=== PATIENT | female | born 1990 | race Hispanic/Latino ===

== ENCOUNTER 2018-03-15 19:16 | Emergency (ER) | payer MEDICAID ==
[2018-03-15 19:59] LABS: Absolute Lymphocytes (CBC) 1.9 K/uL (0.7-4.9); Absolute Monocytes 0.7 K/uL (0.1-1.3); Absolute Neutrophil 4.8 K/uL (1.8-8.0); Basophils % 0.5 % (0-1.3); Eosinophils % 0.3 % (0-4.4); Hematocrit 37.8 % (36.0-45.0); Lymphocytes % 25.9 % (15.3-44.8); MCH 30.7 pg (27.0-35.0); MCV 92.1 fL (80-100); MPV 7.6 fL (7.6-11.3); Monocytes % 9.3 % (3.3-12.3); RBC Red Blood Cell Count 4.11 M/uL (3.86-4.86)
[2018-03-15 20:01] LABS: Protime INR 0.99
[2018-03-15 20:06] LABS: Bicarbonate 30 mEq/L (21-31); Glucose Level 101 mg/dL (65-120); Potassium 4.1 mEq/L (3.6-5.0); Sodium Level 140 mEq/L (135-145)
[2018-03-15 20:12] LABS: ALT/SGPT 21 IU/L (10-60); AST/SGOT 32 IU/L (10-42); Albumin 4.3 g/dL (3.2-5.5); Alkaline Phosphatase 94 IU/L (42-121); BUN Blood Urea Nitrogen 14 mg/dL (6-20); Bilirubin Direct < 0.1 mg/dL (0-0.2); Bilirubin Total 0.3 mg/dL (0.3-1.2); Protein, Total 8.5 g/dL (6.0-8.3)
[2018-03-15 20:16] LABS: Alcohol Serum/Plasma < 10 mg/dl; Salicylates Level < 4.0 mg/dl (<30)
[2018-03-15 22:46] LABS: Barbiturates NEGATIVE; Benzodiazepines NEGATIVE; Cocaine NEGATIVE; Opiates POSITIVE; Phencyclidine NEGATIVE; THC Cannibis NEGATIVE
[2018-03-15 22:50] LABS: Urine Blood NEGATIVE (NEG); Urine Glucose NEGATIVE (NEG); Urine Protein 3+ (NEG); Urine Specific Gravity >1.030 (1.005-1.030)
[2018-03-15 22:52] LABS: METHAMPHETAM POSITIVE
--- NOTE | 2018-03-16 06:43 | EKG ---
Test Date: 2018-03-15 Test Time: 20:13:31 Cash Analyst: ABDIAS MEASUREMENT RESULTS: Intervals: Rate: 69 OK: 152 QRSD: 80 QT: 380 QTc: 407 [place]: P: 18 OK: 152 QRS: 38 T: 41 INTERPRETIVE STATEMENTS: Normal sinus rhythm with sinus arrhythmia Normal ECG Compared to ECG 12/25/2017 21:30:16 No significant changes Electronically Signed On 03-16-18 06:43:00 CDT by Vince Santana
--- NOTE | 2018-03-16 09:53 | EDPHYS ---
Physician Documentation [facility] Name: Kitty Wall Age: 27 yrs Sex: Female : 1990 Arrival Date: 03/15/2018 Time: 19:16 Bed 15 Private MD: ED Physician Brad Castillo HPI: 03/15 19:20 This 27 yrs old Female presents to ER via EMS with complaints of Suicidal cp Ideation. Historical: - Allergies: 19:26 No Known Allergies; tl2 - Home Meds: 19:26 Lamictal 100 mg Oral tab 1 tab 2 times per day [Active]; trazodone 50 mg Oral tab 1 tab tl2 nightly [Active]; fenator 5 mg daily [Active]; - PMHx: 19:26 Anxiety; Bipolar disorder; Depression; Schizophrenia; Seizures; Kidney tumor; tl2 - Immunization history:: Adult Immunizations up to date. - Social history:: Smoking status: Patient/guardian denies using tobacco. ROS: 19:25 Constitutional: Negative for body aches, chills, fever, poor PO intake. cp 19:25 Eyes: Negative for injury, pain, redness, and discharge. cp Exam: 19:33 Constitutional: The patient appears in no acute distress, alert, awake, non-toxic, well cp developed, well nourished. 19:33 Head/Face: Normocephalic, atraumatic. cp 19:33 Eyes: Periorbital structures: appear normal, Pupils: equal, round, and reactive to light and accomodation, Extraocular movements: intact throughout, Conjunctiva: normal, no exudate, no injection, Sclera: no appreciated abnormality, Lids and lashes: appear normal, bilaterally. 19:33 ENT: External ear(s): are unremarkable, Nose: is normal, Mouth: Lips: moist, Oral mucosa: pink and intact, moist, Posterior pharynx: is normal, airway is patent, no erythema, no exudate. 19:33 Neck: ROM/movement: is normal, is supple, without pain, no range of motions limitations, no nuchal rigidity. 19:33 Chest/axilla: Inspection: normal, Palpation: is normal, no crepitus, no tenderness. 19:33 Cardiovascular: Rate: normal, Rhythm: regular. 19:33 Respiratory: the patient does not display signs of respiratory distress, Respirations: normal, no use of accessory muscles, no retractions, no splinting, no tachypnea, labored breathing, is not present, Breath sounds: are clear throughout, no decreased breath sounds, no stridor, no wheezing. 19:33 Abdomen/GI: Inspection: abdomen appears normal, Palpation: abdomen is soft and non-tender, in all quadrants. 19:33 Back: pain, is absent, ROM is normal. 19:33 Skin: cellulitis, is not appreciated, no rash present. 19:33 Neuro: Orientation: to person, place \T\ time. Mentation: is normal, Motor: moves all fours, strength is normal, Sensation: is normal. 19:33 Psych: Behavior/mood is suicidal, Affect is calm, Patient having thoughts of suicide. Plan for suicide is cut wrists Delusions/hallucinations are not present. 20:20 ECG was reviewed by the Attending Physician. Vital Signs: 19:26 BP 126 / 79; Pulse 91; Resp 18; Temp 98.4(O); Pulse Ox 97% on R/A; Weight 63.5 kg; tl2 Height 5 ft. 1 in. (154.94 cm); Pain 0/10; 22:30 BP 120 / 75; Pulse 79; Resp 18; Pulse Ox 100% on R/A; Pain 1/10; oe 03/16 07:00 BP 124 / 91; Pulse 81; Resp 18; Pulse Ox 100% on R/A; oe 03/15 19:26 Body Mass Index 26.45 (63.50 kg, 154.94 cm) tl2 MDM: 03/15 19:19 Patient medically screened. cp 20:00 Differential diagnosis: drug withdrawal. acute psychotic break, depression, psychosis cp secondary to non-compliance. 22:30 Transition of care: After a detail discussion of the patient's case, care is cp transferred to [facility]. 03/16 00:46 Data reviewed: vital signs, nurses notes. Data interpreted: Pulse oximetry: on room air snw is 100 %. Counseling: I had a detailed discussion with the patient and/or guardian regarding: the historical points, exam findings, and any diagnostic results supporting the discharge/admit diagnosis, lab results. Other consultation: [facility]. 01:00 Other consultation: [facility] recommends inpatient treatment. States pt is having delusions, snw possible IDD. 01:00 Physician consultation: Dr Sheldon was called at 02:00, was contacted at 02:25, snw regarding regarding transfer, to [facility]. Dr. Sheldon declines pt 2nd to Medical needs. Pt with hx of Angiomyolipoma of bilateral kidneys. Takes Afinitor. 02:43 Transition of care: After a detail discussion of the patient's case, care is snw transferred to Glenn Gary MD. 09:49 Special discussion: 0950Hrs: Accepted by Dr. Medley at [facility]. wa 03/15 19:18 Order name: Acetaminophen; Complete Time: 21:49 cp 03/15 21:50 Interpretation: ACETA < 10.0; Reviewed. cp 03/15 19:18 Order name: Basic Metabolic Panel; Complete Time: 21:49 cp 03/15 21:50 Interpretation: Normal except: CL 100; GFR 80. cp 03/15 19:18 Order name: CBC with Diff; Complete Time: 21:49 cp 03/15 21:50 Interpretation: Normal except: MCV 92.1; PLT 416. cp 03/15 19:18 Order name: ETOH Level; Complete Time: 21:49 cp 03/15 19:18 Order name: Hepatic Function; Complete Time: 21:49 cp 03/15 21:50 Interpretation: Normal except: TP 8.5; GLOB 4.2; A/G 1.0. cp 03/15 19:18 Order name: PT-INR; Complete Time: 21:49 cp 03/15 19:18 Order name: Urine Test (obtain specimen); Complete Time: 22:20 cp 03/15 19:18 Order name: Ptt, Activated; Complete Time: 21:49 cp 03/15 19:18 Order name: Salicylate; Complete Time: 21:49 cp 03/15 19:18 Order name: Urine Drug Screen; Complete Time: 22:56 cp 03/15 19:18 Order name: EKG; Complete Time: 19:18 cp 03/15 22:31 Order name: Urine Dipstick--Ancillary (enter results); Complete Time: 22:56 rg2 03/15 22:31 Order name: Urine --Ancillary (enter results); Complete Time: 22:56 rg2 03/16 07:14 Order name: Diet Regular; Complete Time: 07:15 tl2 03/15 19:18 Order name: EKG - Nurse/Tech; Complete Time: 20:09 cp 03/15 19:18 Order name: IV Saline Lock; Complete Time: 19:41 cp 03/15 19:18 Order name: Labs collected and sent; Complete Time: 19:40 cp 03/15 19:18 Order name: Urine Dipstick-Ancillary (obtain specimen); Complete Time: 22:20 cp EC/03 20:20 Rate is 69 beats/min. MN interval is normal. QRS interval is normal. QT interval is cp normal. No ST changes noted. Interpreted by me. Reviewed by me. Administered Medications: No medications were administered Disposition: 03/16 09:53 Co-signature as Attending Physician, Brad Castillo MD I agree with the assessment and wa plan of care. Disposition: 03/16/18 09:52 Transfer ordered to Psych Facility. Diagnosis is Acute depression with suicidal ideation. - Reason for transfer: Higher level of care. - Accepting physician is Dr. Galindo Jarrett. - Condition is Stable. - Problem is new. - Symptoms have improved. Signatures: Dispatcher [employer] EDMS Isabel Lopez, GRIPS-C GRIPS-Csnw Samia Rubio RN RN ph Imtiaz Gongora PA PA cp Knox, Taylor, RN RN 2 Brad Castillo MD MD mt Corrections: (The following items were deleted from the chart) 10:42 09:52 03/16/2018 09:52 Transfer ordered to Psych Facility. Diagnosis is Acute ph depression with suicidal ideation. Reason for transfer: Higher level of care. Accepting physician is Dr. Galindo Jarrett. Condition is Stable. Problem is new. Symptoms have improved. wa
--- NOTE | 2018-03-16 09:53 | ER ---
Nurse's Notes [facility] Name: Kitty Wall Age: 27 yrs Sex: Female : 1990 Arrival Date: 03/15/2018 Time: 19:16 Bed 15 Private MD: Diagnosis: Acute depression with suicidal ideation Presentation: 03/15 19:21 Presenting complaint: Patient states: "I've been feeling really depressed since my mom tl2 and I've been having suicidal thoughts. Pt denies any attempt but states she is having suicidal feelings.". Transition of care: patient was not received from another setting of care. Onset of symptoms. Onset of symptoms was March 15, 2018. Initial Sepsis Screen: Does the patient meet any 2 criteria? No. Patient's initial sepsis screen is negative. Does the patient have a suspected source of infection? No. Patient's initial sepsis screen is negative. Care prior to arrival: None. 19:21 Method Of Arrival: EMS: [facility] tl2 19:21 Acuity: GULSHAN 2 tl2 Triage Assessment: 19:26 General: Appears in no apparent distress. comfortable, Behavior is calm, cooperative, tl2 appropriate for age. Pain: Denies pain. Neuro: Level of Consciousness is awake, alert, obeys commands, Oriented to person, place, time, situation. Cardiovascular: Denies chest pain. Respiratory: Airway is patent Respiratory effort is even, unlabored, Respiratory pattern is regular, symmetrical. GI: No signs and/or symptoms were reported involving the gastrointestinal system. : No signs and/or symptoms were reported regarding the genitourinary system. Derm: Skin is pink, warm \\T\\ dry. Historical: - Allergies: 19:26 No Known Allergies; tl2 - Home Meds: 19:26 Lamictal 100 mg Oral tab 1 tab 2 times per day [Active]; trazodone 50 mg Oral tab 1 tab tl2 nightly [Active]; fenator 5 mg daily [Active]; - PMHx: 19:26 Anxiety; Bipolar disorder; Depression; Schizophrenia; Seizures; Kidney tumor; tl2 - Immunization history:: Adult Immunizations up to date. - Social history:: Smoking status: Patient/guardian denies using tobacco. Screenin:28 Abuse screen: Denies threats or abuse. Nutritional screening: No deficits noted. tl2 Tuberculosis screening: No symptoms or risk factors identified. Fall Risk None identified. Assessment: 20:30 General: see triage assessment. tl2 03/16 00:00 Reassessment: Patient appears in no apparent distress at this time. Patient and/or tl2 family updated on plan of care and expected duration. Pain level reassessed. Pt sleeping, no questions or concerns at this time. 00:33 Reassessment: Mental Health Rep at bedside for evaluation. tl2 02:30 Reassessment: Pt continues to sleep, RR even and unlabored. tl2 07:00 Reassessment: Patient appears in no apparent distress at this time. Patient and/or ph family updated on plan of care and expected duration. Pain level reassessed. Pt asleep, respirations even and unlabored, awakens easily, VSS, awaiting placement at facility. 09:09 Reassessment: Patient appears in no apparent distress at this time. No changes from previously documented assessment. Patient and/or family updated on plan of care and expected duration. Pain level reassessed. Patient is alert, oriented x 3, equal unlabored respirations, skin warm/dry/pink. Pt eating breakfast, tolerating well. 09:19 Reassessment: Nurse to nurse report given to ANN MARIE Flores at [facility]. ph 10:34 Reassessment: Patient appears in no apparent distress at this time. Patient and/or ph family updated on plan of care and expected duration. Pain level reassessed. Patient is alert, oriented x 3, equal unlabored respirations, skin warm/dry/pink. Report given to [facility], pt transferred to [facility]. Psych: 03/15 19:30 Subjective: Patient's mood is sad, hopeless, Delusions are denied, Having thoughts of tl2 suicide. Objective: Patient is cooperative, Speech is normal, Affect is appropriate, Patient has mutilated themselves by wrist cutting. Interventions: Removed personal items and placed in bag. Patient placed in hospital gown. Searched person for dangerous items. Suicide Risk Assessment: Sad Person Scale: Sex of patient: Female: Score 0 points. Age of patient: Score 1 point if patient 15-34. Depression: Score 1 point if signs of depression are present. Previous Attempt: Score 0 point if patient has not previously attempted suicide. Substance Abuse: Score 0 point if patient does not abuse alcohol or drugs. Rational Thinking: Score 0 point if patient has rational thinking. Social Support: Score 1 point if social support is lacking and/or unavailable. Organized Plan: Score 1 point if patient had a plan in place. Relationship: Score 1 point if patient is , , , or for a single male Chronic Sickness: Score 0 point if patient does not have a chronic illness, debilitating, or severe disorder. TOTAL POINTS: If total points are 5-6, proposed clinical action is to strongly consider hospitalization, depending upon confidence in the follow-up arrangement. Implement suicide precautions. Safety Checks: Personal items have been removed. Door is open. No visitors are present at this time. Pt denies substance abuse. Commitment: Patient will be a voluntary commitment. 19:45 Safety Checks: Personal items have been removed. Door is open. No visitors are present tl2 at this time. 20:00 Safety Checks: Personal items have been removed. Door is open. No visitors are present tl2 at this time. 20:15 Safety Checks: Personal items have been removed. Door is open. No visitors are present tl2 at this time. 20:30 Safety Checks: Personal items have been removed. Door is open. No visitors are present tl2 at this time. 20:45 Safety Checks: Personal items have been removed. Door is open. No visitors are present tl2 at this time. 21:00 Safety Checks: Personal items have been removed. Door is open. No visitors are present tl2 at this time. 21:15 Safety Checks: Personal items have been removed. Door is open. No visitors are present tl2 at this time. 21:30 Safety Checks: Personal items have been removed. Door is open. No visitors are present tl2 at this time. 21:45 Safety Checks: Personal items have been removed. Door is open. No visitors are present tl2 at this time. 22:00 Safety Checks: Personal items have been removed. Door is open. No visitors are present tl2 at this time. 22:15 Safety Checks: Personal items have been removed. Door is open. No visitors are present tl2 at this time. 22:30 Safety Checks: Personal items have been removed. Door is open. No visitors are present tl2 at this time. 22:45 Safety Checks: Personal items have been removed. Door is open. No visitors are present tl2 at this time. 23:00 Safety Checks: Personal items have been removed. Door is open. No visitors are present tl2 at this time. Vital Signs: 19:26 BP 126 / 79; Pulse 91; Resp 18; Temp 98.4(O); Pulse Ox 97% on R/A; Weight 63.5 kg; tl2 Height 5 ft. 1 in. (154.94 cm); Pain 0/10; 22:30 BP 120 / 75; Pulse 79; Resp 18; Pulse Ox 100% on R/A; Pain 1/10; oe 03/16 07:00 BP 124 / 91; Pulse 81; Resp 18; Pulse Ox 100% on R/A; oe 03/15 19:26 Body Mass Index 26.45 (63.50 kg, 154.94 cm) tl2 ED Course: 03/15 19:16 Patient arrived in ED. ds1 19:17 Imtiaz Gongora PA is PHCP. cp 19:17 Glenn Gary MD is Attending Physician. cp 19:21 Samantha Verdin RN is Primary Nurse. tl2 19:23 Triage completed. tl2 19:26 Arm band placed on right wrist. tl2 19:28 Patient has correct armband on for positive identification. Placed in gown. Bed in low tl2 position. Call light in reach. Side rails up X 1. 19:50 Safety checks: Items removed: yes. Door open/sign placed on door: yes. Family/friend oe present: no. 19:53 Inserted saline lock: 20 gauge in left antecubital area, using aseptic technique. Blood oe collected. 20:00 Safety checks: Items removed: yes. Door open/sign placed on door: yes. Family/friend oe present: no. 20:15 Safety checks: Items removed: yes. Door open/sign placed on door: yes. Family/friend oe present: no. 20:30 Safety checks: Items removed: yes. Door open/sign placed on door: yes. Family/friend oe present: no. 20:45 Safety checks: Items removed: yes. Door open/sign placed on door: yes. Family/friend oe present: no. 21:00 Safety checks: Items removed: yes. Door open/sign placed on door: yes. Family/friend oe present: no. 21:15 Safety checks: Items removed: yes. Door open/sign placed on door: yes. Family/friend oe present: no. 21:30 Safety checks: Items removed: yes. Door open/sign placed on door: yes. Family/friend oe present: no. 21:45 Safety checks: Items removed: yes. Door open/sign placed on door: yes. Family/friend oe present: no. 22:00 Safety checks: Items removed: yes. Door open/sign placed on door: yes. Family/friend oe present: no. 22:15 Safety checks: Items removed: yes. Door open/sign placed on door: yes. Family/friend oe present: no. 22:30 Safety checks: Items removed: yes. Door open/sign placed on door: yes. Family/friend oe present: no. 22:38 PHCP role handed off by Imtiaz Gongora PA snw 22:38 Isabel Lopez FNP-C is PHCP. snw 22:45 Safety checks: Items removed: yes. Door open/sign placed on door: yes. Family/friend oe present: no. 23:00 Safety checks: Items removed: yes. Door open/sign placed on door: yes. Family/friend oe present: no. 23:15 Safety checks: Items removed: yes. Door open/sign placed on door: yes. Family/friend oe present: no. 23:30 Safety checks: Items removed: yes. Door open/sign placed on door: yes. Family/friend oe present: no. 23:45 Safety checks: Items removed: yes. Door open/sign placed on door: yes. Family/friend oe present: no. 04 00:00 Safety checks: Items removed: yes. Door open/sign placed on door: yes. Family/friend oe present: no. 00:15 Safety checks: Items removed: yes. Door open/sign placed on door: yes. Family/friend oe present: no. 00:30 Safety checks: Items removed: yes. Door open/sign placed on door: yes. Family/friend oe present: no. 00:45 Safety checks: Items removed: yes. Door open/sign placed on door: yes. Family/friend oe present: no. 01:00 Safety checks: Items removed: yes. Door open/sign placed on door: no. Family/friend oe present: no. 01:15 Safety checks: Items removed: yes. Door open/sign placed on door: no. Family/friend oe present: no. 01:30 Safety checks: Items removed: yes. Door open/sign placed on door: no. Family/friend oe present: no. 01:45 Safety checks: Items removed: yes. Door open/sign placed on door: no. Family/friend oe present: no. 02:00 Safety checks: Items removed: yes. Door open/sign placed on door: no. Family/friend oe present: no. 02:15 Safety checks: Items removed: yes. Door open/sign placed on door: no. Family/friend oe present: no. 02:30 Safety checks: Items removed: yes. Door open/sign placed on door: no. Family/friend oe present: no. 02:45 Safety checks: Items removed: yes. Door open/sign placed on door: no. Family/friend oe present: no. 03:00 Safety checks: Items removed: yes. Door open/sign placed on door: no. Family/friend oe present: no. 03:15 Safety checks: Items removed: yes. Door open/sign placed on door: no. Family/friend oe present: no. 03:30 Safety checks: Items removed: yes. Door open/sign placed on door: no. Family/friend oe present: no. 03:45 Safety checks: Items removed: yes. Door open/sign placed on door: no. Family/friend oe present: no. 04:00 Safety checks: Items removed: yes. Door open/sign placed on door: no. Family/friend oe present: no. 04:15 Safety checks: Items removed: yes. Door open/sign placed on door: no. Family/friend oe present: no. 04:30 Safety checks: Items removed: yes. Door open/sign placed on door: no. Family/friend oe present: no. 04:45 Safety checks: Items removed: yes. Door open/sign placed on door: no. Family/friend oe present: no. 05:00 Safety checks: Items removed: yes. Door open/sign placed on door: no. Family/friend oe present: no. 05:15 Safety checks: Items removed: yes. Door open/sign placed on door: no. Family/friend oe present: no. 05:30 Safety checks: Items removed: yes. Door open/sign placed on door: no. Family/friend oe present: no. 05:45 Safety checks: Items removed: yes. Door open/sign placed on door: no. Family/friend oe present: no. 06:00 Safety checks: Items removed: yes. Door open/sign placed on door: no. Family/friend oe present: no. 06:15 Safety checks: Items removed: yes. Door open/sign placed on door: no. Family/friend oe present: no. 06:30 Safety checks: Items removed: no. Reason for not removing items: Door open/sign placed oe on door: no. Family/friend present: no. 06:45 Safety checks: Items removed: yes. Door open/sign placed on door: no. Family/friend oe present: no. 07:00 Safety Checks: Personal items have been removed The door is open or patient has been ph placed in a hallway bed/chair. There are no family/friend visitors at this time. 07:00 Safety checks: Items removed: yes. Door open/sign placed on door: no. Family/friend oe present: no. 07:15 Safety Checks: Personal items have been removed The door is open or patient has been ph placed in a hallway bed/chair. There are no family/friend visitors at this time. 07:30 Safety Checks: Personal items have been removed The door is open or patient has been ph placed in a hallway bed/chair. There are no family/friend visitors at this time. 07:45 Safety Checks: Personal items have been removed The door is open or patient has been ph placed in a hallway bed/chair. There are no family/friend visitors at this time. 08:00 Safety Checks: Personal items have been removed The door is open or patient has been ph placed in a hallway bed/chair. There are no family/friend visitors at this time. 08:15 Safety Checks: Personal items have been removed The door is open or patient has been ph placed in a hallway bed/chair. There are no family/friend visitors at this time. 08:30 Safety Checks: Personal items have been removed The door is open or patient has been ph placed in a hallway bed/chair. There are no family/friend visitors at this time. 08:37 faxed over transfer request to the following facilities regarding pt transfer. [facility], [facility],[place], [facility], [facility], [facility], [facility], [facility], [facility], [facility], [facility], [facility], [facility] and [facility]. 08:45 Safety Checks: Personal items have been removed The door is open or patient has been ph placed in a hallway bed/chair. There are no family/friend visitors at this time. 09:00 Safety Checks: Personal items have been removed The door is open or patient has been ph placed in a hallway bed/chair. There are no family/friend visitors at this time. 09:13 Angle from [facility] called to do to Nurse to Nurse for patient transfer. 09:15 Safety Checks: Personal items have been removed The door is open or patient has been ph placed in a hallway bed/chair. There are no family/friend visitors at this time. 09:16 Attending Physician role handed off by Glenn Gary MD ne 09:16 Brad Castillo MD is Attending Physician. ne 09:30 Safety Checks: Personal items have been removed The door is open or patient has been ph placed in a hallway bed/chair. There are no family/friend visitors at this time. 09:35 Migue from [facility] called and connected with ED RN regarding pt transfer. 09:45 Safety Checks: Personal items have been removed The door is open or patient has been ph placed in a hallway bed/chair. There are no family/friend visitors at this time. 09:49 called and connected with ED doc for patient transfer to [facility].eb 10:00 Safety Checks: Personal items have been removed The door is open or patient has been ph placed in a hallway bed/chair. There are no family/friend visitors at this time. 10:15 Safety Checks: Personal items have been removed The door is open or patient has been ph placed in a hallway bed/chair. There are no family/friend visitors at this time. 10:30 Safety Checks: Personal items have been removed The door is open or patient has been ph placed in a hallway bed/chair. There are no family/friend visitors at this time. 10:36 No provider procedures requiring assistance completed. IV discontinued, intact, ph bleeding controlled, No redness/swelling at site. Pressure dressing applied. 10:45 Safety Checks: Personal items have been removed The door is open or patient has been ph placed in a hallway bed/chair. There are no family/friend visitors at this time. Administered Medications: No medications were administered Outcome: 09:52 ER care complete, transfer ordered by . ne 10:42 Patient left the ED. ph 10:42 Transferred by ground EMS to other acute care facility, Transfer form completed. X-rays ph sent w/ patient. 10:42 Condition: stable 10:42 Instructed on the need for transfer. ph Signatures: Isabel Lopez, ROUTE RETURNER-C ROUTE RETURNER-Csnw Cecy Sung ds1 Samia Rubio RN RN ph Imtiaz Gongora PA PA cp Knox, Taylor, RN RN tl2 Ervin Gage William, MD MD wa Botello, Elizabeth eb Corrections: (The following items were deleted from the chart) 03/15 21:00 20:37 Safety checks: Items removed: yes. Door open/sign placed on door: yes. oe Family/friend present: no. oe 21:00 20:38 Safety checks: Items removed: yes. Door open/sign placed on door: yes. oe Family/friend present: no. oe 03/16 01:13 00:18 Safety checks: Items removed: yes. Door open/sign placed on door: yes. oe Family/friend present: no. oe 03:51 01:15 Safety checks: Items removed: yes. Door open/sign placed on door: yes. oe Family/friend present: no. oe 03:52 01:30 Safety checks: Items removed: yes. Door open/sign placed on door: yes. oe Family/friend present: no. oe 04:07 03:59 Safety checks: Items removed: yes. Door open/sign placed on door: no. oe Family/friend present: no. oe 04:37 03:59 Safety checks: Items removed: yes. Door open/sign placed on door: no. oe Family/friend present: no. oe 06:45 06:17 Safety checks: Items removed: no. Reason for not removing items: Door open/sign oe placed on door: no. Family/friend present: no. oe 06:45 06:18 Safety checks: Items removed: yes. Door open/sign placed on door: no. oe Family/friend present: no. oe 07:00 06:18 Safety checks: Items removed: yes. Door open/sign placed on door: no. oe Family/friend present: no. oe
[2018-03-16 10:46] VITALS: TEMP 98.4
[2018-03-16 10:47] VITALS: O2SAT 100
[2018-03-16 10:48] VITALS: BP 124/91
== END 2018-03-16 10:42 ==
LOC: ER 19:16
DX: R45.851 Suicidal ideations (principal); F32.9 Major depressive disorder, single episode, unspecified
CPT/HCPCS: 36415; 80048; 80076; 80307; 80320; 80329; 81003; 81025; 85025; 85610; 85730; 93005; 99285

== ENCOUNTER 2018-05-06 12:30 | Emergency (ER) | payer MEDICAID ==
--- OUTSIDE RECORDS SUMMARY | 2018-05-06 12:32 | XMS REPORT | Summary of Care ---
:1990 Author Name Niki Petty M.A. Address [facility] Unavailable , Care Team Providers Name Role Phone ALONZO GONZALES M.D. Unavailable Unavailable ALFREDO EUGENE M.D. 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 Start : 25-Aug-2015 Active Afinitor 5 MG Oral Tablet TAKE 1 TABLET BY MOUTH DAILY Quantity: 28 Refills: 0 ALFREDO EUGENE M.D. Start : 19-Apr-2018 Active Allergies and Adverse Reactions Name Dates Details No Known Drug Allergies (Allergy) Status: Active Procedures Procedure Dates Details EKG w/Rhythm Strip Date: 17-Apr-2018 [QLH] CBC (INCLUDES DIFF/PLT) Date: 17-Apr-2018 [QLH] CMP W/EGFR Date: 17-Apr-2018 [Q] EVEROLIMUS, BLOOD Date: 17-Apr-2018 [QLH] LIPID PANEL Date: 17-Apr-2018 [QLH] PHOSPHATE ( PHOSPHORUS) Date: 17-Apr-2018 [QLH] PTH, INTACT (WITHOUT CALCIUM) Date: 17-Apr-2018 [QLH] LAMOTRIGINE Date: 17-Apr-2018 MRI Brain w/wo contrast [id number] Date: 17-Apr-2018 CT Abdomen w/wo contrast [id number] Date: 17-Apr-2018 Immunization Name Dates Details Immunizations not documented Social History Name Dates Details - Status: Name Dates Details Never smoker Vital Signs Date Test Result Details [id number] BP Systolic 109 mm[Hg] Status: BP Diastolic 76 mm[Hg] Status: Height 154 cm Status: Weight 67.7 kg Status: Body Mass Index Calculated 28.55 kg/m2 Status: Body Surface Area Calculated 1.66 m2 Status: Temperature 96.5 f Status: Heart Rate 91 /min Status: Head Circumference 54.7 cm Status: Results Date Description Value Details [id number] [O] Urine Dipstick (In Office) LEUKOCYTES Negative (Normal) NITRITE Negative (Normal) UROBILINOGEN 0.2 (Normal) PROTEIN 30 pH 7.0 (Normal) URINE BLOOD Trace-Intact SPECIFIC GRAVITY 1.020 (Normal) KETONES Negative (Normal) BILIRUBIN Neative (Normal) GLUCOSE Negative (Normal) Plan of Care Name Dates Details Planned Observations Planned Goals not documented Instructions Name Dates Details Instructions not documented Encounters Appointment; LAYA FELIX M.D. On: 28-Feb-2017 9:30 Encounter Diagnosis: Problem not documented Appointment; ALFREDO EUGENE M.D. On: 28-Feb-2017 9:45 Encounter Diagnosis: Problem not documented Appointment; ALONZO GONZALES M.D. On: 28-Feb-2017 9:45 Encounter Diagnosis: Problem not documented Appointment; ALFREDO EUGENE M.D. On: 08-May-2017 9:00 Encounter Diagnosis: Problem not documented Appointment; ALONZO GONZALES M.D. On: 01-May-2018 8:45 Encounter Diagnosis: Problem not documented
--- OUTSIDE RECORDS SUMMARY | 2018-05-06 12:32 | XMS REPORT ---
:1990 Author Organization [employer] Care Team Providers Name Role Phone Bates, Na Provider Role Unavailable Allergies, Adverse Reactions, Alerts Substance Reaction Event Type N.K.D.A. 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 Problem Seizures R56.9 Active Problem Depression with anxiety F41.8 Active Problem Pornography addiction F66 Active Assessment Seizure disorder G40.909 Active Problem Benign neoplasm of kidney D30.00 Active Problem BCP ( control pills) Z30.011 Active initiation Problem Seizure disorder G40.909 Active Problem Back pain M54.9 Active Problem Obesity E66.9 Active Problem Insomnia G47.00 Active Assessment Pornography addiction F66 Active Assessment BCP ( control pills) Z30.011 Active initiation Assessment Insomnia G47.00 Active Assessment 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 Problem Moderate mental retardation F71 Active Assessment Gastroesophageal reflux disease K21.9 Active without esophagitis Problem Gastroesophageal reflux disease K21.9 Active without esophagitis Assessment Depression with anxiety F41.8 Active 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 Medications Medication Code Code Instructions Start End Status Dosage System Date Date Zyrtec Allergy [facility] 54307198931 10 MG Orally Active 1 tablet Once a day Flonase [facility] 13357540376 50 MCG/ACT Active 1 spray in Nasally Once a each day nostril Lamictal [facility] 37920298648 100 MG Orally Active 1 tablet Twice a day Gianvi [facility] 58828387617 3-0.02 MG Active 1 tablet Orally Once a day Pantoprazole [facility] 60916566619 40 MG Orally Active 1 tablet Sodium Once a day Trazodone HCl [facility] 75051276683 50 MG Orally Inactive 1 tablet Once a day at bedtime as needed Lexapro [facility] 18084317471 20 MG Orally Active 1 tablet Once a day Afinitor [facility] 74646973341 5 MG Orally Active 1 tablet Once a day Results No Known Results Summary Purpose [employer] Submission
[2018-05-06 14:41] LABS: Absolute Lymphocytes (CBC) 1.6 K/uL (0.7-4.9); Absolute Monocytes 0.7 K/uL (0.1-1.3); Absolute Neutrophil 6.3 K/uL (1.8-8.0); Basophils % 0.7 % (0-1.3); Eosinophils % 0.3 % (0-4.4); Hematocrit 36.9 % (36.0-45.0); MCH 30.4 pg (27.0-35.0); MCV 90.2 fL (80-100); Monocytes % 8.2 % (3.3-12.3); RBC Red Blood Cell Count 4.09 M/uL (3.86-4.86)
[2018-05-06] MEDS ORDERED: NA CHLORIDE 0.9% 1,000 ML ONE (14:46)
[2018-05-06 14:58] LABS: ALT/SGPT 21 U/L (12-78); AST/SGOT 25 U/L (15-37); Albumin 3.4 g/dL (3.4-5.0); Alkaline Phosphatase 112 U/L (45-117); Amylase Level 69 U/L (25-115); BUN Blood Urea Nitrogen 19 mg/dL (7-18); Bicarbonate 28 mmol/L (21-32); Bilirubin Direct < 0.1 mg/dL (0-0.2); Bilirubin Total 0.1 mg/dL (0.2-1.0); Glucose Level 110 mg/dL (74-106); Lipase 156 U/L (73-393); Potassium 4.1 mmol/L (3.5-5.1); Protein, Total 8.6 g/dL (6.4-8.2); Sodium Level 135 mmol/L (136-145)
[2018-05-06 15:33] LABS: Urine Bacteria <20 /HPF (<20); Urine Culture Reflex Order NOT NEEDED; Urine RBC <5 /HPF (NONE SEEN)
--- NOTE | 2018-05-06 16:52 | ER ---
Nurse's Notes [facility] Name: Kitty Wall Age: 27 yrs Sex: Female : 1990 Arrival Date: 05/06/2018 Time: 12:33 Bed 10 Private MD: Shantelle Bates Diagnosis: Vomiting, unspecified;Dehydration Presentation: 05/06 13:20 Presenting complaint: Patient states: has been feeling anxious today, feels like her iw heart is racing, also has back pain and nausea. Transition of care: patient was not received from another setting of care. Onset of symptoms was May 06, 2018. Risk Assessment: Do you want to hurt yourself or someone else? Patient reports no desire to harm self or others. Initial Sepsis Screen: Does the patient meet any 2 criteria? No. Patient's initial sepsis screen is negative. Does the patient have a suspected source of infection? No. Patient's initial sepsis screen is negative. Care prior to arrival: None. 13:20 Method Of Arrival: Ambulatory iw 13:20 Acuity: GULSHAN 3 iw PROMOTIONAL MODEL: 13:31 LMP 04/30/2018 iw Historical: - Allergies: 13:31 NKA; iw - PMHx: 13:21 Anxiety; Bipolar disorder; Depression; Kidney tumor; Schizophrenia; Seizures; iw - Immunization history:: Adult Immunizations unknown. - Social history:: Smoking status: unknown. - Ebola Screening: : Patient negative for fever greater than or equal to 101.5 degrees Fahrenheit, and additional compatible Ebola Virus Disease symptoms Patient denies exposure to infectious person Patient denies travel to an Ebola-affected area in the 21 days before illness onset No symptoms or risks identified at this time. Screenin:24 Abuse screen: Denies threats or abuse. Denies injuries from another. Nutritional iw screening: No deficits noted. Tuberculosis screening: No symptoms or risk factors identified. Fall Risk IV access (20 points). Assessment: 14:23 General: Appears in no apparent distress. Behavior is calm, cooperative. Pain: iw Complains of pain in lumbar area, left low back and right low back. Neuro: Level of Consciousness is awake, alert, obeys commands, Oriented to person, place, time. Cardiovascular: Patient's skin is warm and dry. Cardiovascular: Reports palpitations. Respiratory: Respiratory effort is even, unlabored. GI: Reports nausea. Derm: Skin is pink, warm \T\ dry. Musculoskeletal: Range of motion: intact in all extremities. 16:25 Reassessment: Patient appears in no apparent distress at this time. Patient and/or iw family updated on plan of care and expected duration. Pain level reassessed. Patient is alert, oriented x 3, equal unlabored respirations, skin warm/dry/pink. pt c/o back pain. Vital Signs: 13:31 BP 140 / 85; Pulse 88; Resp 16; Temp 98.2; Pulse Ox 100% on R/A; Weight 68.95 kg; Pain iw 710; 16:15 BP 149 / 90 Supine; Pulse 79 LA; iw 16:18 BP 148 / 88 LA Sitting; Pulse 72; iw 16:25 BP 135 / 80 Standing; Pulse 82 LA; iw ED Course: 12:33 Patient arrived in ED. mr 12:33 Shantelle Bates MD is Private Physician. mr 13:02 Isabel Lopez [facility]-C [facility]. snw 13:02 Imtiaz Beverly MD is Attending Physician. snw 13:14 Angle Boyle, ANN MARIE is Primary Nurse. iw 13:20 Triage completed. iw 14:24 Initial lab(s) drawn, by ok, sent to lab. Inserted saline lock: 20 gauge in right iw antecubital area, using aseptic technique. Blood collected. 16:00 Arm band placed on. iw 16:25 Patient has correct armband on for positive identification. iw 16:50 Shantelle Bates MD is Referral Physician. snw 17:10 Primary Nurse role handed off by Angle Boyle RN iw 17:11 Angle Boyle RN is Primary Nurse. iw 17:11 No provider procedures requiring assistance completed. IV discontinued, intact, iw bleeding controlled, No redness/swelling at site. Pressure dressing applied. Administered Medications: 14:50 Drug: NS 0.9% 1000 ml Route: IV; Rate: 1 bolus; Site: right antecubital; iw 16:00 Follow up: IV Status: Completed infusion iw Outcome: 16:51 Discharge ordered by . snw 17:08 Patient left the ED. iw 17:11 Discharged to home ambulatory, with family. iw 17:11 Condition: good 17:11 Discharge instructions given to patient, Instructed on discharge instructions, follow up and referral plans. Demonstrated understanding of instructions, follow-up care. 17:14 Patient left the ED. iw Signatures: Isabel Lopez, JACQUI-C CONCESSION MANAGER-[place] Danay Licea mr Angle Boyle, ANN MARIE RN iw Corrections: (The following items were deleted from the chart) 14:23 13:31 BP 140 / 85; Pulse 88bpm; Resp 16bpm; Pulse Ox 100% RA; iw iw 16:25 16:15 BP 149 / 90 Sitting; Pulse 79bpm; Left Arm; iw iw
--- NOTE | 2018-05-06 16:52 | EDPHYS ---
Physician Documentation [facility] Name: Kitty Wall Age: 27 yrs Sex: Female : 1990 Arrival Date: 05/06/2018 Time: 12:33 Bed 10 Private MD: Shantelle Bates ED Physician Imtiaz Beverly HPI: 05/06 13:59 This 27 yrs old Female presents to ER via Ambulatory with complaints of Back snw Pain, Nausea. 13:59 The patient presents with pain that is acute, with no known mechanism of injury. The snw symptoms are located in the low back, right CVA. Onset: The symptoms/episode began/occurred suddenly, 2 day(s) ago, and became worse and became persistent. Associated signs and symptoms: Pertinent positives: nausea, vomiting, right back pain. The problem was sustained from unknown cause. Severity of symptoms: At their worst the symptoms were moderate. It is unknown whether or not the patient has had similar symptoms in the past. It is unknown whether or not the patient has recently seen a physician. SCIENTIFIC AIDE: 13:31 LMP 04/30/2018 iw Historical: - Allergies: 13:31 NKA; iw - PMHx: 13:21 Anxiety; Bipolar disorder; Depression; Kidney tumor; Schizophrenia; Seizures; iw - Immunization history:: Adult Immunizations unknown. - Social history:: Smoking status: unknown. - Ebola Screening: : Patient negative for fever greater than or equal to 101.5 degrees Fahrenheit, and additional compatible Ebola Virus Disease symptoms Patient denies exposure to infectious person Patient denies travel to an Ebola-affected area in the 21 days before illness onset No symptoms or risks identified at this time. ROS: 13:58 Constitutional: Negative for fever, chills, and weight loss, Eyes: Negative for injury, snw pain, redness, and discharge, ENT: Negative for injury, pain, and discharge, Neck: Negative for injury, pain, and swelling, Cardiovascular: Negative for chest pain, palpitations, and edema, Respiratory: Negative for shortness of breath, cough, wheezing, and pleuritic chest pain, Back: Negative for injury and pain, : Negative for injury, bleeding, discharge, and swelling, MS/Extremity: Negative for injury and deformity, Skin: Negative for injury, rash, and discoloration. 13:58 Abdomen/GI: Positive for nausea and vomiting. 13:58 Neuro: Positive for near syncope. Exam: 13:57 Head/Face: Normocephalic, atraumatic. Eyes: Pupils equal round and reactive to light, snw extra-ocular motions intact. Lids and lashes normal. Conjunctiva and sclera are non-icteric and not injected. Cornea within normal limits. Periorbital areas with no swelling, redness, or edema. ENT: Nares patent. No nasal discharge, no septal abnormalities noted. Tympanic membranes are normal and external auditory canals are clear. Oropharynx with no redness, swelling, or masses, exudates, or evidence of obstruction, uvula midline. Mucous membranes moist. Neck: Trachea midline, no thyromegaly or masses palpated, and no cervical lymphadenopathy. Supple, full range of motion without nuchal rigidity, or vertebral point tenderness. No Meningismus. Chest/axilla: Normal chest wall appearance and motion. Nontender with no deformity. No lesions are appreciated. 13:57 Cardiovascular: Regular rate and rhythm with a normal S1 and S2. No gallops, murmurs, or rubs. Normal PMI, no JVD. No pulse deficits. Respiratory: Lungs have equal breath sounds bilaterally, clear to auscultation and percussion. No rales, rhonchi or wheezes noted. No increased work of breathing, no retractions or nasal flaring. 13:57 MS/ Extremity: Pulses equal, no cyanosis. Neurovascular intact. Full, normal range of motion. 13:57 Constitutional: The patient appears alert, awake, pale, uncomfortable. 13:57 Abdomen/GI: Inspection: abdomen appears normal, Bowel sounds: normal. 13:57 Back: pain, that is mild, that is moderate, CVA tenderness, that is mild, that is moderate, is noted on the right. 13:57 Skin: Appearance: Color: pale, Temperature: normal temperature. 13:57 Neuro: Orientation: is normal, Mentation: appropriate for stated age, Memory: is normal. 13:57 Psych: Behavior/mood is pleasant, Affect is animated. Vital Signs: 13:31 BP 140 / 85; Pulse 88; Resp 16; Temp 98.2; Pulse Ox 100% on R/A; Weight 68.95 kg; Pain iw 7/10; 16:15 BP 149 / 90 Supine; Pulse 79 LA; iw 16:18 BP 148 / 88 LA Sitting; Pulse 72; iw 16:25 BP 135 / 80 Standing; Pulse 82 LA; iw MDM: 13:22 Patient medically screened. snw 16:49 Data reviewed: vital signs, nurses notes. Data interpreted: Pulse oximetry: on room air snw is 100 %. Interpretation: normal. Counseling: I had a detailed discussion with the patient and/or guardian regarding: the historical points, exam findings, and any diagnostic results supporting the discharge/admit diagnosis, the presence of at least one elevated blood pressure reading (>120/80) during this emergency department visit, lab results, the need for outpatient follow up, to return to the emergency department if symptoms worsen or persist or if there are any questions or concerns that arise at home. Special discussion: Based on the patient's Hx, exam, and Dx evaluation, there is no indication for emergent surgery or inpatient Tx. It is understood by the patient/guardian that if the Sx's persist or worsen they need to return immediately for re-evaluation. Based on the history and exam findings, there is no indication for further emergent testing or inpatient evaluation. I discussed with the patient/guardian the need to see the primary care provider for further evaluation of the symptoms. 05/06 13:03 Order name: Urine Culture snw 05/06 13:03 Order name: Urine Microscopic Only; Complete Time: 15:46 w 05/06 13:56 Order name: Amylase, Serum; Complete Time: 14:58 w 05/06 13:56 Order name: Basic Metabolic Panel; Complete Time: 14:58 w 05/06 13:56 Order name: CBC with Diff; Complete Time: 15:14 snw 05/06 13:56 Order name: Hepatic Function; Complete Time: 14:58 snw 05/06 13:03 Order name: Urine Test (obtain specimen); Complete Time: 16:25 snw 05/06 13:03 Order name: Urine Dipstick-Ancillary (obtain specimen); Complete Time: 14:23 snw 05/06 13:56 Order name: Vital Signs; Complete Time: 14:22 snw 05/06 13:56 Order name: Lipase; Complete Time: 14:58 snw 05/06 13:56 Order name: IV Saline Lock; Complete Time: 14:22 snw 05/06 17:14 Order name: Urine Dipstick--Ancillary (enter results) iw 05/06 17:14 Order name: Urine --Ancillary (enter results) 05/06 15:47 Order name: Orthostatics; Complete Time: 16:25 snw Administered Medications: 14:50 Drug: NS 0.9% 1000 ml Route: IV; Rate: 1 bolus; Site: right antecubital; iw 16:00 Follow up: IV Status: Completed infusion iw Disposition: 05/07 16:14 Co-signature as Attending Physician, Imtiaz Beverly MD I agree with the assessment and rayshawn plan of care. Disposition: 05/06/18 16:51 Discharged to Home. Impression: Vomiting, unspecified, Dehydration. - Condition is Stable. - Discharge Instructions: Dehydration, Adult, Nausea and Vomiting, Rehydration, Adult. - Medication Reconciliation Form, Thank You Letter, Antibiotic Education, Prescription Opioid Use form. - Follow up: Shantelle Bates MD; When: 2 - 3 days; Reason: Recheck today's complaints, Continuance of care, Re-evaluation by your physician. Follow up: Emergency Department; When: As needed; Reason: Worsening of condition. Signatures: Dispatcher [employer] Imtiaz Dejesus MD MD cha Therrien, Shelly, SOFTWARE TEST MANAGER-C SOFTWARE TEST MANAGER-[place] Angle Boyle RN RN Corrections: (The following items were deleted from the chart) 05/06 17:08 16:51 05/06/2018 16:51 Discharged to Home. Impression: Vomiting, unspecified; iw Dehydration. Condition is Stable. Forms are Medication Reconciliation Form, Thank You Letter, Antibiotic Education, Prescription Opioid Use. Follow up: Shantelle Bates; When: 2 - 3 days; Reason: Recheck today's complaints, Continuance of care, Re-evaluation by your physician. Follow up: Emergency Department; When: As needed; Reason: Worsening of condition. snw 17:14 17:08 05/06/2018 16:51 Discharged to Home. Impression: Vomiting, unspecified; iw Dehydration. Condition is Stable. Discharge Instructions: Dehydration, Adult, Nausea and Vomiting, Rehydration, Adult. Forms are Medication Reconciliation Form, Thank You Letter, Antibiotic Education, Prescription Opioid Use. Follow up: Shantelle Bates; When: 2 - 3 days; Reason: Recheck today's complaints, Continuance of care, Re-evaluation by your physician. Follow up: Emergency Department; When: As needed; Reason: Worsening of condition. iw
[2018-05-06 17:13] VITALS: TEMP 98.2; O2SAT 100
[2018-05-06 17:16] VITALS: BP 135/80
[2018-05-06 17:23] LABS: Urine Blood NEGATIVE (NEG); Urine Glucose NEGATIVE (NEG); Urine Protein 3+ (NEG); Urine Specific Gravity >1.030 (1.005-1.030)
== END 2018-05-06 17:14 | disposition home or self-care (01) ==
LOC: ER 12:30
DX: R11.2 Nausea with vomiting, unspecified (principal); E86.0 Dehydration; M54.9 Dorsalgia, unspecified
CPT/HCPCS: 36415; 80048; 80076; 81003; 81015; 81025; 82150; 83690; 85025; 87086; 87088; 96360; 99283; J7030

== ENCOUNTER 2018-08-26 14:19 | Emergency (ER) | payer MEDICAID ==
--- OUTSIDE RECORDS SUMMARY | 2018-08-26 14:21 | XMS REPORT ---
[...] Status Dosage System Date Date Zyrtec Allergy [facility] 52533199530 10 MG Orally Active 1 tablet Once a day Flonase [facility] 29395585184 50 MCG/ACT Active 1 spray in Nasally Once a each day nostril Lamictal [facility] 73641431868 100 MG Orally Active 1 tablet Twice a day Gianvi [facility] 29478382753 3-0.02 MG Active 1 tablet Orally Once a day Pantoprazole [facility] 36674835806 40 MG Orally Active 1 tablet Sodium Once a day Trazodone HCl [facility] 13226546690 50 MG Orally Inactive 1 tablet Once a day at bedtime as needed Lexapro [facility] 98903669550 20 MG Orally Active 1 tablet Once a day Afinitor [facility] 37029245686 5 MG Orally Active 1 tablet Once a day Results No Known Results Summary Purpose eClinicalWorks Submission
--- OUTSIDE RECORDS SUMMARY | 2018-08-26 14:22 | XMS REPORT ---
:1990 Author Organization eClinicalWorks Care Team Providers Name Role Phone Bates, Shantelle Provider Role Unavailable Allergies, Adverse Reactions, Alerts Substance Reaction Event Type N.K.D.A. 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 Problem Onychomycosis B35.1 Active Problem Seizures R56.9 Active Problem Depression with anxiety F41.8 Active Problem Pornography addiction F66 Active Problem Benign neoplasm of kidney D30.00 Active Assessment Depression with anxiety F41.8 Active 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 Assessment Gastroesophageal reflux disease K21.9 Active without esophagitis Assessment Onychomycosis B35.1 Active Problem Seizure disorder G40.909 Active Problem Insomnia G47.00 Active Assessment Uses control Z30.9 Active Problem Obesity E66.9 Active Assessment Insomnia G47.00 Active Problem Back pain M54.9 Active Problem Moderate mental retardation F71 Active Medications Medication Code Code Instructions Start End Status Dosage System Date Date Lexapro ND 92612023762 20 MG Orally Active 1 tablet Once a day Zyrtec Allergy ND 56632363119 10 MG Orally Active 1 tablet Once a day Afinitor ND 79410965935 5 MG Orally Active 1 tablet Once a day Lamictal ND 69980176460 100 MG Orally Active 1 tablet Twice a day Pantoprazole ND 61308827087 40 MG Orally Active 1 tablet Sodium Once a day Ciclopirox ND 00182722946 8 % Externally Sept Active 1 application Once a day at 14, to affected bedtime, and 2018 nail area clean nail once a week with alcohol x 3 months [facility] 79133161669 3-0.02 MG Active 1 tablet Orally Once a day Flonase [facility] 68776745501 50 MCG/ACT Active 1 spray in Nasally Once a each nostril day Fluticasone [facility] 54261902219 50 MCG/ACT Active USE 1 SPRAY Propionate INTRANASALLY ONCE A DAY Results No Known Results Summary Purpose eClinicalWorks Submission
[2018-08-26] MEDS ORDERED: NA CHLORIDE 0.9% 1,000 ML ONE (15:39)
[2018-08-26] MEDS ORDERED: ONDANSETRON 4 MG/2 ML VIAL ONE (15:39)
[2018-08-26 16:15] LABS: Absolute Monocytes 0.6 K/uL (0.1-1.3); Absolute Neutrophil 5.4 K/uL (1.8-8.0); Basophils % 0.6 % (0-1.3); Eosinophils % 0.3 % (0-4.4); Hematocrit 37.1 % (36.0-45.0); Lymphocytes % 24.8 % (15.3-44.8); MCH 29.9 pg (27.0-35.0); MCV 86.9 fL (80-100); MPV 7.8 fL (7.6-11.3); Monocytes % 7.6 % (3.3-12.3); RBC Red Blood Cell Count 4.27 M/uL (3.86-4.86)
[2018-08-26 16:47] LABS: ALT/SGPT 22 U/L (12-78); Albumin 3.5 g/dL (3.4-5.0); Alkaline Phosphatase 115 U/L (45-117); BUN Blood Urea Nitrogen 14 mg/dL (7-18); Bicarbonate 28 mmol/L (21-32); Bilirubin Total 0.2 mg/dL (0.2-1.0); Glucose Level 84 mg/dL (74-106); Lipase 195 U/L (73-393); Protein, Total 8.6 g/dL (6.4-8.2); Sodium Level 139 mmol/L (136-145)
[2018-08-26 16:48] LABS: AST/SGOT 29 U/L (15-37); Bilirubin Direct < 0.1 mg/dL (0-0.2); Potassium 4.1 mmol/L (3.5-5.1)
--- NOTE | 2018-08-26 16:53 | RAD REPORT ---
EXAM DESCRIPTION: CTAbdomen Pelvis W Contrast - 08/26/2018 4:33 pm CLINICAL HISTORY: Abdominal pain. FLANK PAIN COMPARISON: Abdomen Pelvis W Contrast dated 11/08/2016; CT ABD PELVIS W CONTRAST dated 05/03/2015 TECHNIQUE: Biphasic CT imaging of the abdomen and pelvis was performed with 100 ml non-ionic IV cont rast. All CT scans are performed using dose optimization technique as appropriate and may include automated exposure control or mA/KV adjustment according to patient size. FINDINGS: The lung bases are clear. Small low-density hepatic lesions are again noted, unchanged. The spleen is normal in size. The pancr eas and adrenal glands are within normal limits. Multiple fat containing mass is are seen involving b oth kidneys. Several of the lesions also contain dystrophic calcification. Overall, there has been no adverse change seen in the appearance of these lesions. Acute hemorrhage is not seen. No bowel obstruction, free air, free fluid or abscess. The appendix is normal. No evidence of signi ficant lymphadenopathy. No suspicious bony findings. IMPRESSION: No acute intra-abdominal or pelvic finding. 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 No acute bleeding or other acute complication from these lesions is seen.
[2018-08-26 17:18] LABS: Urine Bacteria <20 /HPF (<20); Urine Culture Reflex Order NOT NEEDED; Urine RBC <5 /HPF (NONE SEEN)
--- NOTE | 2018-08-26 18:20 | EDPHYS ---
Physician Documentation [facility] Name: Kitty Wall Age: 28 yrs Sex: Female : 1990 Arrival Date: 08/26/2018 Time: 14:22 Bed 28 Private MD: ED Physician Heide Shanks HPI: 08/26 16:00 This 28 yrs old Female presents to ER via Ambulatory with complaints of pm1 Abdominal pain, Vomiting. 16:00 The patient presents to the emergency department with nausea, vomiting, abdominal pain. pm1 Onset: The symptoms/episode began/occurred 3 day(s) ago. Possible causes: unknown. The symptoms are aggravated by nothing. The symptoms are alleviated by nothing. Associated signs and symptoms: Pertinent positives: abdominal pain, subjective fever. No antipyretic taken today, Pertinent negatives: constipation, diarrhea, dysuria. Severity of symptoms: in the emergency department the symptoms are unchanged. The patient has experienced similar episodes in the past, several times. The patient has not recently seen a physician. STOCK COUNTER: 14:36 LMP 08/05/2018 hj Historical: - Allergies: 14:35 NKA; hj - Home Meds: 14:35 fenator 5 mg daily [Active]; Lamictal 100 mg Oral tab 1 tab 2 times per day [Active]; hj trazodone 50 mg Oral tab 1 tab nightly [Active]; - PMHx: 14:35 Anxiety; Bipolar disorder; Depression; Kidney tumor; Schizophrenia; Seizures; hj - PSHx: 14:35 stimulator; hj - Immunization history:: Adult Immunizations not up to date. - Social history:: Smoking status: Patient/guardian denies using tobacco, Patient/guardian denies using alcohol. - Ebola Screening: : Patient negative for fever greater than or equal to 101.5 degrees Fahrenheit, and additional compatible Ebola Virus Disease symptoms Patient denies exposure to infectious person Patient denies travel to an Ebola-affected area in the 21 days before illness onset. ROS: 16:00 Constitutional: Negative for fever, chills, and weight loss, Eyes: Negative for injury, pm1 pain, redness, and discharge, ENT: Negative for injury, pain, and discharge, Neck: Negative for injury, pain, and swelling, Cardiovascular: Negative for chest pain, palpitations, and edema, Respiratory: Negative for shortness of breath, cough, wheezing, and pleuritic chest pain. 16:00 Back: Negative for injury and pain, : Negative for injury, bleeding, discharge, and swelling, MS/Extremity: Negative for injury and deformity, Skin: Negative for injury, rash, and discoloration, Neuro: Negative for headache, weakness, numbness, tingling, and seizure. 16:00 Abdomen/GI: Positive for abdominal pain, nausea and vomiting, Negative for diarrhea. Exam: 16:00 Constitutional: This is a well developed, well nourished patient who is awake, alert, pm1 and in no acute distress. Head/Face: Normocephalic, atraumatic. Eyes: Pupils equal round and reactive to light, extra-ocular motions intact. Lids and lashes normal. Conjunctiva and sclera are non-icteric and not injected. Cornea within normal limits. Periorbital areas with no swelling, redness, or edema. ENT: Nares patent. No nasal discharge, no septal abnormalities noted. Tympanic membranes are normal and external auditory canals are clear. Oropharynx with no redness, swelling, or masses, exudates, or evidence of obstruction, uvula midline. Mucous membranes moist. Neck: Trachea midline, no thyromegaly or masses palpated, and no cervical lymphadenopathy. Supple, full range of motion without nuchal rigidity, or vertebral point tenderness. No Meningismus. Chest/axilla: Normal chest wall appearance and motion. Nontender with no deformity. No lesions are appreciated. Cardiovascular: Regular rate and rhythm with a normal S1 and S2. No gallops, murmurs, or rubs. No pulse deficits. Respiratory: Lungs have equal breath sounds bilaterally, clear to auscultation and percussion. No rales, rhonchi or wheezes noted. No increased work of breathing, no retractions or nasal flaring. Abdomen/GI: Soft, non-tender, with normal bowel sounds. No distension or tympany. No guarding or rebound. No evidence of tenderness throughout. Back: No spinal tenderness. No costovertebral tenderness. Full range of motion. Skin: Warm, dry with normal turgor. Normal color with no rashes, no lesions, and no evidence of cellulitis. MS/ Extremity: Pulses equal, no cyanosis. Neurovascular intact. Full, normal range of motion. 16:00 Neuro: Orientation: is normal, Motor: is normal, Sensation: is normal, no obvious gross deficits. Vital Signs: 14:36 BP 138 / 84; Pulse 98; Resp 18; Temp 98.6(O); Pulse Ox 99% on R/A; Weight 47.17 kg; hj Height 5 ft. 3 in. (160.02 cm); Pain 10/10; 17:21 BP 126 / 82; Pulse 80; Resp 18; Temp 98.4(O); Pulse Ox 100% on R/A; Pain 0/10; mg2 18:49 BP 128 / 70; Pulse 78; Resp 18; Pulse Ox 100% on R/A; mg2 14:36 Body Mass Index 18.42 (47.17 kg, 160.02 cm) hj MDM: 15:16 Patient medically screened. pm1 18:19 Data reviewed: vital signs. Data interpreted: Pulse oximetry: on room air is 100 %. pm1 Interpretation: normal. Counseling: I had a detailed discussion with the patient and/or guardian regarding: the historical points, exam findings, and any diagnostic results supporting the discharge/admit diagnosis, lab results, radiology results, the need for outpatient follow up, to return to the emergency department if symptoms worsen or persist or if there are any questions or concerns that arise at home. 08/26 15:28 Order name: Basic Metabolic Panel; Complete Time: 17:08 pm1 08/26 15:28 Order name: CBC with Diff; Complete Time: 16:28 pm1 08/26 15:28 Order name: Creatinine for Radiology; Complete Time: 18:08 pm1 08/26 15:28 Order name: Hepatic Function; Complete Time: 17:08 pm1 08/26 15:28 Order name: Lipase; Complete Time: 17:08 pm1 08/26 15:28 Order name: Urine Microscopic Only; Complete Time: 18:08 pm1 08/26 15:28 Order name: IV Saline Lock; Complete Time: 15:56 pm1 08/26 15:28 Order name: Labs collected and sent; Complete Time: 15:56 pm1 08/26 15:28 Order name: Urine Dipstick-Ancillary (obtain specimen); Complete Time: 15:56 pm1 08/26 15:28 Order name: CT Abd/Pelvis - W/Contrast: IV contrast only; Complete Time: 17:08 pm1 08/26 16:13 Order name: Urine Dipstick--Ancillary (enter results) bd 08/26 16:13 Order name: Urine --Ancillary (enter results) bd 08/26 15:28 Order name: Urine Test (obtain specimen); Complete Time: 15:56 pm1 Administered Medications: 15:56 Drug: NS 0.9% 1000 ml Route: IV; Rate: 1000 ml; Site: left forearm; mg2 18:42 Follow up: Response: No adverse reaction; IV Status: Completed infusion mg2 15:56 Drug: Zofran 4 mg Route: IVP; Site: left forearm; mg2 18:42 Follow up: Response: No adverse reaction mg2 Disposition: 08/27 09:56 Co-signature as Attending Physician, Heide Shanks MD. ma2 Disposition: 08/26/18 18:20 Discharged to Home. Impression: Unspecified abdominal pain, Vomiting. - Condition is Stable. - Discharge Instructions: Abdominal Pain, Adult, Nausea and Vomiting, Adult. - Prescriptions for Zofran 4 mg Oral Tablet - take 1 tablet by ORAL route every 12 hours As needed; 20 tablet. - Medication Reconciliation Form, Thank You Letter, Prescription Opioid Use form. - Follow up: Emergency Department; When: As needed; Reason: Worsening of condition. Follow up: Private Physician; When: 2 - 3 days; Reason: Recheck today's complaints, Continuance of care, Re-evaluation by your physician. - Problem is new. - Symptoms have improved. Signatures: Dispatcher [employer] EDMS Murray Scott RN RN Lobo Saleh, JR OUTDOOR LANDSCAPE ARCHITECT pm1 Heide Shanks MD MD ma2 Dmitry Osorio RN RN mg2 Corrections: (The following items were deleted from the chart) 08/26 18:50 18:20 08/26/2018 18:20 Discharged to Home. Impression: Unspecified abdominal pain; mg2 Vomiting. Condition is Stable. Forms are Medication Reconciliation Form, Thank You Letter, Antibiotic Education, Prescription Opioid Use. Follow up: Emergency Department; When: As needed; Reason: Worsening of condition. Follow up: Private Physician; When: 2 - 3 days; Reason: Recheck today's complaints, Continuance of care, Re-evaluation by your physician. Problem is new. Symptoms have improved. pm1
--- NOTE | 2018-08-26 18:20 | ER ---
Nurse's Notes [facility] Name: Kitty Wall Age: 28 yrs Sex: Female : 1990 Arrival Date: 08/26/2018 Time: 14:22 Bed 28 Private MD: Diagnosis: Unspecified abdominal pain;Vomiting Presentation: 08/26 14:33 Presenting complaint: Patient states: my kidneys are swollen and i ve had this low hj abdomen pain, been throwing up since , reports fever; took ibuprofen 200 mg for pain;. Transition of care: patient was not received from another setting of care. Onset of symptoms was August 26, 2018. Risk Assessment: Do you want to hurt yourself or someone else? Patient reports no desire to harm self or others. Initial Sepsis Screen: Does the patient meet any 2 criteria? No. Patient's initial sepsis screen is negative. Does the patient have a suspected source of infection? No. Patient's initial sepsis screen is negative. Care prior to arrival: None. 14:33 Method Of Arrival: Ambulatory 14:33 Acuity: GULSHAN 3 hj Triage Assessment: 14:36 General: Appears in no apparent distress. uncomfortable, Behavior is calm, cooperative, hj appropriate for age. Pain: Complains of pain in abdomen. GI: Reports lower abdominal pain, nausea, vomiting. FIELD CHECKER: 14:36 LMP 08/05/2018 Historical: - Allergies: 14:35 NKA; hj - Home Meds: 14:35 fenator 5 mg daily [Active]; Lamictal 100 mg Oral tab 1 tab 2 times per day [Active]; hj trazodone 50 mg Oral tab 1 tab nightly [Active]; - PMHx: 14:35 Anxiety; Bipolar disorder; Depression; Kidney tumor; Schizophrenia; Seizures; hj - PSHx: 14:35 stimulator; hj - Immunization history:: Adult Immunizations not up to date. - Social history:: Smoking status: Patient/guardian denies using tobacco, Patient/guardian denies using alcohol. - Ebola Screening: : Patient negative for fever greater than or equal to 101.5 degrees Fahrenheit, and additional compatible Ebola Virus Disease symptoms Patient denies exposure to infectious person Patient denies travel to an Ebola-affected area in the 21 days before illness onset. Screenin:36 Abuse screen: Denies threats or abuse. Denies injuries from another. Nutritional hj screening: No deficits noted. Tuberculosis screening: No symptoms or risk factors identified. Fall Risk None identified. Assessment: 14:36 GI: Abdomen is non-distended. hj 16:25 General: Appears in no apparent distress. comfortable, Behavior is calm, cooperative. mg2 Pain: Complains of pain in abdomen Pain does not radiate. Pain currently is 5 out of 10 on a pain scale. Quality of pain is described as aching, Pain began gradually, 2-3 days ago. Is intermittent. Neuro: Level of Consciousness is awake, alert, obeys commands, Oriented to person, place, time, situation. Cardiovascular: Capillary refill < 3 seconds Patient's skin is warm and dry. Respiratory: Airway is patent Respiratory effort is even, unlabored, Respiratory pattern is regular, symmetrical. : No signs and/or symptoms were reported regarding the genitourinary system. : Urine is clear. EENT: No signs and/or symptoms were reported regarding the EENT system. Derm: Skin is intact, is healthy with good turgor, Skin is pink, warm \T\ dry. normal. Musculoskeletal: No signs and/or symptoms reported regarding the musculoskeletal system. 16:26 Reassessment: patient in ct scan now. mg2 Vital Signs: 14:36 BP 138 / 84; Pulse 98; Resp 18; Temp 98.6(O); Pulse Ox 99% on R/A; Weight 47.17 kg; hj Height 5 ft. 3 in. (160.02 cm); Pain 10/10; 17:21 BP 126 / 82; Pulse 80; Resp 18; Temp 98.4(O); Pulse Ox 100% on R/A; Pain 0/10; mg2 18:49 BP 128 / 70; Pulse 78; Resp 18; Pulse Ox 100% on R/A; mg2 14:36 Body Mass Index 18.42 (47.17 kg, 160.02 cm) ED Course: 14:22 Patient arrived in ED. mr 14:34 Triage completed. hj 14:36 Arm band placed on left wrist. hj 14:38 Patient has correct armband on for positive identification. Placed in gown. Bed in low hj position. Call light in reach. Side rails up X 1. 15:16 Lobo Saleh NP is PHCP. pm1 15:16 Heide Shanks MD is Attending Physician. pm1 15:31 Dmitry Osorio, RN is Primary Nurse. mg2 15:54 Radiology exam delayed due to test not completed at this time. cw1 16:26 No provider procedures requiring assistance completed. Inserted saline lock: 22 gauge mg2 in right forearm, using aseptic technique. Blood collected. 16:33 CT completed. Patient tolerated procedure well. Patient moved to CT via stretcher. kw1 Patient moved back from CT. 16:33 CT Abd/Pelvis - W/Contrast: IV contrast only In Process Unspecified. EDMS 18:50 IV discontinued, intact, bleeding controlled, No redness/swelling at site. Pressure mg2 dressing applied. Administered Medications: 15:56 Drug: NS 0.9% 1000 ml Route: IV; Rate: 1000 ml; Site: left forearm; mg2 18:42 Follow up: Response: No adverse reaction; IV Status: Completed infusion mg2 15:56 Drug: Zofran 4 mg Route: IVP; Site: left forearm; mg2 18:42 Follow up: Response: No adverse reaction mg2 Outcome: 18:20 Discharge ordered by . pm1 18:50 Discharged to home ambulatory, with family. mg2 18:50 Condition: stable 18:50 Discharge instructions given to patient, family, Instructed on discharge instructions, follow up and referral plans. medication usage, Demonstrated understanding of instructions, follow-up care, medications, Prescriptions given X 1. 18:50 Patient left the ED. mg2 Signatures: Dispatcher [employer] EDDC Patricia Licea Crystal cw1 Murray Scott RN RN Lobo Collins, JR VICE PRESIDENT OF CUSTOMER SERVICE pm1 Allie Parikh kw1 Dmitry Osorio, RN RN mg2 Corrections: (The following items were deleted from the chart) 14:39 14:36 Pulse 98bpm; Resp 18bpm; Pulse Ox 99% RA; Temp 98.6F Oral; 47.17 kg; Height 5 ft. hj 3 in.; BMI: 18.4; Pain 10/10; hj
[2018-08-26 22:06] LABS: Urine Blood NEGATIVE (NEG); Urine Glucose NEGATIVE (NEG); Urine Protein 2+ (NEG); Urine Specific Gravity >1.030 (1.005-1.030); Urine pH 6.5 (5.0-7.0)
[2018-08-28 14:02] VITALS: BP 128/70; TEMP 98.4; O2SAT 100
== END 2018-08-26 18:50 | disposition home or self-care (01) ==
LOC: ER 14:19
DX: R11.2 Nausea with vomiting, unspecified (principal); F31.9 Bipolar disorder, unspecified; F20.9 Schizophrenia, unspecified
CPT/HCPCS: 36415; 74177; 80048; 80076; 81003; 81015; 81025; 83690; 85025; 96361; 96374; 99284; J2405; J7030; Q9967

== ENCOUNTER 2019-06-13 17:21 | Emergency (ER) | payer MEDICAID ==
--- OUTSIDE RECORDS SUMMARY | 2019-06-13 17:28 | XMS REPORT ---
[...] Status Dosage System Date Date Zyrtec Allergy [facility] 84259197502 10 MG Orally Active 1 tablet Once a day Flonase [facility] 31072081176 50 MCG/ACT Active 1 spray in Nasally Once a each day nostril Lamictal [facility] 88273186157 100 MG Orally Active 1 tablet Twice a day Gianvi [facility] 14658321474 3-0.02 MG Active 1 tablet Orally Once a day Pantoprazole [facility] 46502355815 40 MG Orally Active 1 tablet Sodium Once a day Trazodone HCl [facility] 59345509045 50 MG Orally Inactive 1 tablet Once a day at bedtime as needed Lexapro [facility] 26337379200 20 MG Orally Active 1 tablet Once a day Afinitor [facility] 49741626115 5 MG Orally Active 1 tablet Once a day Results No Known Results Summary Purpose eClinicalWorks Submission
--- OUTSIDE RECORDS SUMMARY | 2019-06-13 17:28 | XMS REPORT ---
:1990 [facility] Address [address] [place] [address] Dr. Villa [address] [place] [address] Care Team Providers Name Role Phone Unavailable Unavailable Unavailable Problems This patient has no known problems. Allergies, Adverse Reactions, Alerts This patient has no known allergies or adverse reactions. Medications This patient has no known medications.
--- OUTSIDE RECORDS SUMMARY | 2019-06-13 17:28 | XMS REPORT ---
[...] Status Dosage System Date Date Lexapro ND 63301649343 20 MG Orally Active 1 tablet Once a day Zyrtec Allergy ND 85328939752 10 MG Orally Active 1 tablet Once a day Afinitor ND 98307874847 5 MG Orally Active 1 tablet Once a day Lamictal ND 54773739960 100 MG Orally Active 1 tablet Twice a day Pantoprazole ND 96206011822 40 MG Orally Active 1 tablet Sodium Once a day Ciclopirox ND 17581626804 8 % Externally Sept Active 1 application Once a day at 14, to affected bedtime, and 2018 nail area clean nail once a week with alcohol x 3 months [facility] 40121864375 3-0.02 MG Active 1 tablet Orally Once a day Flonase [facility] 27185691511 50 MCG/ACT Active 1 spray in Nasally Once a each nostril day Fluticasone [facility] 28577832700 50 MCG/ACT Active USE 1 SPRAY Propionate INTRANASALLY ONCE A DAY Results No Known Results Summary Purpose eClinicalWorks Submission
--- OUTSIDE RECORDS SUMMARY | 2019-06-13 17:29 | XMS REPORT ---
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 Problem Seasonal allergies J30.2 Active Problem Pornography addiction F66 Active Problem Benign neoplasm of kidney D30.00 Active Problem Uses control Z30.9 Active Problem BCP ( control pills) Z30.011 Active initiation Problem Back pain M54.9 Active Assessment Insomnia G47.00 Active Assessment Depression with anxiety F41.8 Active Problem Obesity E66.9 Active Problem Moderate mental retardation F71 Active Assessment Seasonal allergies J30.2 Active Problem Seizure disorder G40.909 Active Problem Gastroesophageal reflux disease K21.9 Active without esophagitis Assessment Panic attacks F41.0 Active Problem Insomnia G47.00 Active 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 Medications Medication Code Code Instructions Start End Status Dosage System Date Date Zyrtec Allergy [facility] 25071264662 10 MG Orally Active 1 tablet Once a day Flonase [facility] 57300574986 50 MCG/ACT Active 1 spray in Nasally Once a each nostril day Seroquel [facility] 77959377201 25 MG Orally Active 1 tablet Once a day at bedtime Cetirizine HCl [facility] 26868792261 10 MG Active TAKE 1 TABLET BY MOUTH EVERY DAY NEEDED FOR ALLERGIES Gianvi [facility] 98779021157 3-0.02 MG Active 1 tablet Orally Once a day Pantoprazole [facility] 26219922920 40 MG Orally Active 1 tablet Sodium Once a day Afinitor [facility] 13552979794 5 MG Orally Active 1 tablet Once a day Lexapro [facility] 02618012892 20 MG Orally Active 1 tablet Once a day Ondansetron HCl [facility] 62177830432 4 MG Orally one Active as directed tablet by mouth every 4 hrs Lamictal [facility] 00477929883 100 MG Orally Active 1 tablet Twice a day Ciclopirox [facility] 83545828685 8 % Externally Active 1 application Once a day at to affected bedtime, and nail area clean nail once a week with alcohol x 3 months Fluticasone [facility] 56234935966 50 MCG/ACT Active USE 1 SPRAY Propionate INTRANASALLY ONCE A DAY Results No Known Results Summary Purpose eClinicalWorks Submission
--- OUTSIDE RECORDS SUMMARY | 2019-06-13 17:29 | XMS REPORT | Summary of Care ---
:1990 Author Organization [facility] Address [address] [place] [id number] Care Team Providers Name Role Phone Shantelle Bates Primary Care Provider Reason for Visit Reason Comments Flank Pain Encounter Details Date Type Department Care Team Description 06/12/2019 Nurse Triage [facility] Nicolette Calix RN Flank Pain [address] [place] [id number] [place] [address] Allergies Active Allergy Reactions Severity Noted Date Comments Mushroom Rash 01/04/2019 Onion Rash 01/04/2019 Tomato Rash 01/04/2019 documented as of this encounter (statuses as of 06/12/2019) Medications Medication Sig Dispensed Refills Start Date End Date Status escitalopram oxalate Take 20 mg by 0 Active 20 mg tablet mouth daily. Lamotrigine 100 mg Take by mouth. 0 Active TbDL traZODONE 50 mg Take 50 mg by 0 Active tablet mouth at bedtime. Cetirizine 10 mg Take by mouth. 0 Active capsule Everolimus (AFINITOR) Take by mouth. 0 Active 5 mg Tab ciprofloxacin HCl 500 Take 1 tablet by 10 tablet 0 01/05/2019 Active mg tabletIndications: mouth every 12 Tuberous sclerosis, (twelve) hours. Angiomyolipoma, Flank pain HYDROcodone-acetamino Take 1 tablet by 20 tablet 0 01/05/2019 Active phen 5-325 mg mouth every 6 tabletIndications: (six) hours as Tuberous sclerosis, needed for Pain Angiomyolipoma, Flank (scale 7-10). pain traMADOL 50 mg Take 1 tablet by 30 tablet 0 01/05/2019 Active tabletIndications: mouth every 6 Left upper quadrant (six) hours as pain, Tuberous needed for Pain sclerosis, (scale 4-6). Angiomyolipoma, Flank pain ondansetron 4 mg Take 1 tablet by 20 tablet 0 01/05/2019 Active disintegrating mouth every 4 tabletIndications: (four) hours as Left upper quadrant needed for Nausea pain, Tuberous and Vomiting sclerosis, (N/V). Angiomyolipoma, Flank pain GIANVI, 28, 3-0.02 mg Take 1 tablet by 5 11/24/2018 Active per tablet mouth daily. fluticasone 50 USE 1 SPRAY 3 10/28/2018 Active mcg/actuation nasal INTRANASALLY ONCE spray A DAY gabapentin 100 mg Take 1 capsule by 90 capsule 0 01/17/2019 Active capsuleIndications: mouth 3 (three) Tuberous sclerosis, times daily. Angiomyolipoma of both kidneys, Left flank pain traMADOL 50 mg Take 1 tablet by 30 tablet 0 04/22/2019 Active tabletIndications: mouth every 6 Flank pain, Tuberous (six) hours as sclerosis needed for Pain (scale 4-6). ondansetron 4 mg Take 1 tablet by 20 tablet 0 04/22/2019 Active disintegrating mouth every 4 tabletIndications: (four) hours as Flank pain, Tuberous needed for Nausea sclerosis and Vomiting (N/V). documented as of this encounter (statuses as of 06/12/2019) Active Problems No known active problemsdocumented as of this encounter (statuses as of 2018) Social History Tobacco Use Types Packs/Day Years Used Date Smoker, Current Status Unknown Smokeless Tobacco: Never Used Sex Assigned at Date Recorded Not on file Job Start Date Occupation Industry Not on file Not on file Not on file Travel History Travel Start Travel End No recent travel history available. documented as of this encounter Last Filed Vital Signs Not on filedocumented in this encounter Plan of Treatment Date Type Specialty Care Team Description 07/18/2019 Office Visit Urology Hi Boyle MD [address] [place] [phone] Health Maintenance Due Date Last Done Comments PNEUMOCOCCAL 0-64 YEARS COMBINED SERIES (1 of - 1996 PPSV23) VARICELLA VACCINES (1 of 2 - 13+ 2-dose series) 2003 DTaP,Tdap,and Td Vaccines (1 - Tdap) 2009 PAP SMEAR 2011 INFLUENZA VACCINE 07/14/2019 documented as of this encounter Results Not on filedocumented in this encounter Insurance Payer Benefit Plan / Subscriber ID Effective Phone Address Type Group Dates TOBIN RUDD xxxxxxxxx 2015-Caitlyn MARC [place] [id number] [place]ICA[place], [place] documented as of this encounter
--- OUTSIDE RECORDS SUMMARY | 2019-06-13 17:29 | XMS REPORT | Summary of Care ---
:1990 Author Organization [facility] Address [address] [place] [address] Care Team Providers Name Role Phone Shantelle Bates Primary Care Provider Reason for Visit Reason Comments Assessment Encounter Details Date Type Department Care Team Description 06/13/2019 Telephone [facility] Cancer Hi Boyle MD [facility] [address] [place] [id number] 2.[address] [place] [address] [phone] Allergies Active Allergy Reactions Severity Noted Date Comments Mushroom Rash 01/04/2019 Onion Rash 01/04/2019 Tomato Rash 01/04/2019 documented as of this encounter (statuses as of 06/13/2019) Medications Medication Sig Dispensed Refills Start Date [...] as of this encounter (statuses as of 06/13/2019) Active Problems No known active problemsdocumented as [...] Visit Urology Hi Boyle MD [address] [place] [phone] Health Maintenance Due Date Last Done Comments PNEUMOCOCCAL 0-64 YEARS COMBINED SERIES (1 of 1 - 1996 PPSV23) VARICELLA VACCINES (1 of 2 - 13+ 2-dose series) 2003 DTaP,Tdap,and Td Vaccines (1 - Tdap) 2009 PAP SMEAR 2011 INFLUENZA VACCINE 07/14/2019 documented as of this encounter Results Not on filedocumented in this encounter Insurance Payer Benefit Plan / Subscriber ID Effective Phone Address Type Group Dates TOBIN RUDD xxxxxxxxx 2015-Caitlyn MARC [place] [id number] MANAGED MEDICAID [place], [place] documented as of this encounter
--- OUTSIDE RECORDS SUMMARY | 2019-06-13 17:29 | XMS REPORT | Summary of Care ---
:1990 Author Organization [facility] Address [address] [place] [address] Care Team Providers Name Role Phone Shantelle Bates Primary Care Provider Reason for Visit Reason Comments No Contact Encounter Details Date Type Department Care Team Description 06/12/2019 Nurse Triage [facility] Nicolette Calix, ANN MARIE No Contact [address] [place] [phone] [place] [address] Allergies Active Allergy Reactions Severity Noted Date [...] Visit Urology Hi Boyle MD [address] [place] [phone] Health Maintenance Due Date Last Done Comments [...] 2015-Caitlyn MARC [place] [id number] [place] MEDICA[place] documented as of this encounter
--- OUTSIDE RECORDS SUMMARY | 2019-06-13 17:29 | XMS REPORT ---
:1990 Author Organization [employer] Care Team Providers Name Role Phone Bates, Na Provider Role Unavailable Allergies, Adverse Reactions, Alerts Substance Reaction Event Type N.K.D.A. 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 Problem Uses control Z30.9 Active Problem BCP ( control pills) Z30.011 Active initiation Assessment Uses control Z30.9 Active 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 Problem Onychomycosis B35.1 Active Assessment Pornography addiction F66 Active Problem Seizures R56.9 Active Problem Depression with anxiety F41.8 Active Problem Pornography addiction F66 Active Problem Benign neoplasm of kidney D30.00 Active Assessment Gastroesophageal reflux disease K21.9 Active without esophagitis Assessment Depression with anxiety F41.8 Active Assessment Onychomycosis B35.1 Active Assessment Seizure disorder G40.909 Active Problem Seizure disorder G40.909 Active Problem Insomnia G47.00 Active Problem Back pain M54.9 Active Medications Medication Code Code Instructions Start End Status Dosage System Date Date Gianvi [facility] 53942781254 3-0.02 MG Active 1 tablet Orally Once a day Zyrtec Allergy [facility] 36000857065 10 MG Orally Active 1 tablet Once a day Fluticasone [facility] 91744618073 50 MCG/ACT Active USE 1 SPRAY Propionate INTRANASALLY ONCE A DAY Ciclopirox ND 71875530607 8 % Externally Active 1 application Once a day at to affected bedtime, and nail area clean nail once a week with alcohol x 3 months Afinitor [facility] 37970534605 5 MG Orally Active 1 tablet Once a day Lexapro [facility] 17754874501 20 MG Orally Active 1 tablet Once a day Pantoprazole [facility] 17514214233 40 MG Orally Active 1 tablet Sodium Once a day Lamictal [facility] 28804274021 100 MG Orally Active 1 tablet Twice a day Flonase [facility] 55922173270 50 MCG/ACT Active 1 spray in Nasally Once a each nostril day Results Name Result Date Reference Range Unit Abnormality Flag Hepatitis Panel,Acute ----Hepatitis B Core Nonreactive 20181026 Nonreactive IgM Antibody ----Hepatitis A IgM Nonreactive 20181026 Antibody ----Hepatitis C Nonreactive 20181026 Nonreactive Antibody ----Hepatitis C Ab 0.02 20181026 <1.00 Signal/Cutoff ----HCV ADD PCR Not indicated 20181026 ----HBsAG Nonreactive 20181026 Nonreactive ----Hepatitis B REPORT 20181026 Surface Ag Confirm GC (Amor/Chl) Probe URINE ----C.trachomatis Not Detected 20181026 Not Detected RNA,TMA ----N.gonorrhoeae Not Detected 20181026 Not Detected RNA,TMA CBC with Automated Diff ----Basophils % 0.5 64172425 0-1.3 % ----Eosinophils % 0.8 03283434 0-4.4 % ----Absolute 2.6 99636583 0.7-4.9 Lymphocytes (CBC) ----Absolute 4.8 12030841 1.8-8.0 Neutrophil ----Red Cell 13.1 14182450 12.1-15.2 % Distribution Width ----Absolute 0.1 99832982 0-0.5 Eosinophils ----Platelets 512 74366681 152-406 H ----Absolute Monocytes 0.7 95294896 0.1-1.3 ----MCHC 34.0 31094151 32.0-36.0 g/dL ----MCH 29.5 84451259 27.0-35.0 pg ----MCV 86.7 72719079 80-100 fL ----Neutrophils % 58.1 70137222 41.7-73.7 % ----MPV 8.0 01922070 7.6-11.3 fL ----Monocytes % 8.4 54914207 3.3-12.3 % ----Lymphocytes % 32.2 00616634 15.3-44.8 % ----Absolute Basophils 0.0 31988472 0-0.5 ----White Blood Count 8.2 13036909 4.3-10.9 ----RBC Red Blood Cell 4.33 86216434 3.86-4.86 M/ul Count ----Hemoglobin 12.8 99743550 12.0-15.0 g/dL ----Hematocrit 37.6 66731997 36.0-45.0 % Comprehensive Metabolic Panel ----Creatinine 0.80 89281210 0.55-1.3 mg/dL ----BUN Blood Urea 19 61185341 7-18 mg/dL H Nitrogen ----AST/SGOT 21 05594875 15-37 U/L ----Glomerular 85 27945814 =/>90 mL L Filtration Rate ----Alkaline 134 79815768 45-117 U/L H Phosphatase ----Bilirubin Total 0.2 88587865 0.2-1.0 mg/dL ----ALT/SGPT 29 97866150 12-78 U/L ----Albumin 3.3 22312674 3.4-5.0 g/dL L ----Bicarbonate 28 88511347 21-32 mmol/L ----Globulin 5.4 63390495 2.3-3.5 g/dL H ----Glucose Level 89 21165549 74-106 mg/dL ----Calcium Level 9.0 64833992 8.5-10.1 mg/dL ----Potassium 3.6 11012970 3.5-5.1 mmol/L ----Protein, Total 8.7 16191350 6.4-8.2 g/dL H ----Chloride Level 105 25987799 98-107 mmol/L ----Sodium Level 141 36420313 136-145 mmol/L ----Albumin/Globulin 0.6 42037908 1.1-1.8 L Ratio Immunizations Vaccine Administration Date Flucelvax - single dose syringe Oct 26, 2018 Summary Purpose eClinicalWorks Submission
--- OUTSIDE RECORDS SUMMARY | 2019-06-13 17:29 | XMS REPORT ---
:1990 Author Organization [employer] Care Team Providers Name Role Phone Bates, Na Provider Role Unavailable Allergies, Adverse Reactions, Alerts Substance Reaction Event Type N.K.D.A. 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0 Active Problem Seizure disorder G40.909 Active Problem Gastroesophageal reflux disease K21.9 Active without esophagitis Medications Medication Code Code Instructions Start End Status Dosage System Date Date Ciclopirox [facility] 38969385581 8 % Externally Active 1 application Once a day at to affected bedtime, and nail area clean nail once a week with alcohol x 3 months Gianvi ND 31734506672 3-0.02 MG Active 1 tablet Orally Once a day Flonase ND 19188855629 50 MCG/ACT Active 1 spray in Nasally Once a each nostril day Lamictal ND 07480833433 100 MG Orally Active 1 tablet Twice a day Seroquel ND 83122245194 25 MG Orally January Active 1 tablet Once a day at 15, bedtime [address] [facility] 56626010070 10 MG Active TAKE 1 TABLET BY MOUTH EVERY DAY NEEDED FOR ALLERGIES Lexapro [facility] 43220089866 20 MG Orally Active 1 tablet Once a day Afinitor [facility] 01730181346 5 MG Orally Active 1 tablet Once a day Pantoprazole [facility] 60792952898 40 MG Orally Active 1 tablet Sodium Once a day Zyrtec Allergy [facility] 68942258138 10 MG Orally Active 1 tablet Once a day Ondansetron HCl [facility] [address]-42 4 MG Orally Active as directed one tablet by mouth every [address] [facility] 60592389124 50 MCG/ACT Active USE 1 SPRAY Propionate INTRANASALLY ONCE A DAY Results No Known Results Summary Purpose eClinicalWorks Submission
[2019-06-13] MEDS ORDERED: NA CHLORIDE 0.9% 1,000 ML ONE (17:42)
[2019-06-13 17:49] LABS: Basophils % 0.3 % (0-1.3); Hematocrit 37.2 % (36.0-45.0); Lymphocytes % 27.1 % (15.3-44.8); MPV 7.6 fL (7.6-11.3); RBC Red Blood Cell Count 4.06 M/uL (3.86-4.86)
[2019-06-13 18:03] LABS: ALT/SGPT 60 U/L (12-78); AST/SGOT 36 U/L (15-37); Albumin 3.4 g/dL (3.4-5.0); Alkaline Phosphatase 103 U/L (45-117); BUN Blood Urea Nitrogen 16 mg/dL (7-18); Bicarbonate 24 mmol/L (21-32); Bilirubin Direct < 0.1 mg/dL (0-0.2); Bilirubin Total 0.3 mg/dL (0.2-1.0); Glucose Level 91 mg/dL (74-106); Lipase 143 U/L (73-393); Potassium 3.7 mmol/L (3.5-5.1); Protein, Total 8.4 g/dL (6.4-8.2); Sodium Level 141 mmol/L (136-145)
[2019-06-13 18:48] LABS: Urine Blood TRACE (NEG); Urine Glucose NEGATIVE (NEG); Urine Protein 2+ (NEG); Urine Specific Gravity 1.025 (1.005-1.030)
--- NOTE | 2019-06-13 19:13 | RAD REPORT ---
EXAM DESCRIPTION: CT - Abdomen Pelvis W Contrast - 06/13/2019 6:53 pm CLINICAL HISTORY: Abdominal pain COMPARISON: August 2018 TECHNIQUE: Computed axial tomography of the abdomen pelvis was obtained. 100 cc Isovue-300 was admin istered intravenously. Oral contrast was not requested which limits evaluation of bowel. All CT scans are performed using dose optimization technique as appropriate and may include automated exposure control or mA/KV adjustment according to patient size. FINDINGS: Large angiomyolipomas arise from each kidney without significant change. No evidence of ac pilot point bleed. Mild to moderate dilatation of the right renal pelvis secondary to obstruction by 1 of the masses is without significant change. Tiny hepatic lesions unchanged. Spleen, pancreas and adrenals are unremarkable. No evidence of diverticulitis. 24 millimeter right renal cyst without significant free fluid IMPRESSION: 24 millimeter right renal cyst without significant free fluid No significant change in the appearance of the bilateral renal angiomyolipomas. One of the masses obs tructs the right renal pelvis resulting [id number] right hydronephrosis
--- NOTE | 2019-06-13 19:53 | ER ---
Nurse's Notes [facility] Name: Kitty Wall Age: 28 yrs Sex: Female : 1990 Arrival Date: 06/13/2019 Time: 17:24 Bed 6 Private MD: Diagnosis: Generalized abdominal pain Presentation: 06/13 17:20 Presenting complaint: EMS states: zoila kidney pain/swelling (Hx kidney tumors), abd sv swelling x 1 day. BP 140/80 HR-90 97% RA. Transition of care: patient was not received from another setting of care. Onset of symptoms was June 12, 2019. Risk Assessment: Do you want to hurt yourself or someone else? Patient reports no desire to harm self or others. Care prior to arrival: None. 17:20 Method Of Arrival: EMS: [facility] sv 17:20 Acuity: GULSHAN 3 sv 17:20 Initial Sepsis Screen: Does the patient meet any 2 criteria? No. Patient's initial sv sepsis screen is negative. Does the patient have a suspected source of infection? No. Patient's initial sepsis screen is negative. Triage Assessment: 17:29 General: Appears in no apparent distress. uncomfortable, well developed, Behavior is sv calm, cooperative, appropriate for age. Pain: Complains of pain in back and abdomen Pain currently is 9 out of 10 on a pain scale. Quality of pain is described as pressure, Pain began 1 day ago. Is continuous. Neuro: Level of Consciousness is awake, alert, obeys commands, Oriented to person, place, time, situation, Moves all extremities. Full function Speech is normal. Respiratory: Respiratory effort is even, unlabored, Respiratory pattern is regular, symmetrical. GI: Abdomen is round distended, Reports bloating. : Denies hematuria. Derm: Skin is pink, warm \T\ dry. Historical: - Allergies: 17:28 NKA; sv - Home Meds: 17:28 Lamictal 100 mg Oral tab 1 tab 2 times per day [Active]; Zofran Oral [Active]; sv quetiapine 25 mg oral tab nightly [Active]; gabapentin 100 mg oral cap 3 times per day [Active]; Lexapro 20 mg Oral tab 1 tab once daily [Active]; - PMHx: 17:28 Anxiety; Bipolar disorder; Depression; Kidney tumor; Schizophrenia; Seizures; sv - PSHx: 17:28 stimulator; sv - Immunization history:: Adult Immunizations up to date. - Social history:: Smoking status: Patient/guardian denies using tobacco. - Ebola Screening: : No symptoms or risks identified at this time. Screenin:28 Abuse screen: Denies threats or abuse. Denies injuries from another. Nutritional sv screening: No deficits noted. Tuberculosis screening: No symptoms or risk factors identified. Fall Risk None identified. Assessment: 17:48 Reassessment: Patient appears in no apparent distress at this time. No changes from sv previously documented assessment. Patient and/or family updated on plan of care and expected duration. Pain level reassessed. Patient is alert, oriented x 3, equal unlabored respirations, skin warm/dry/pink. 18:30 Reassessment: Patient appears in no apparent distress at this time. Patient and/or hb family updated on plan of care and expected duration. Pain level reassessed. Patient is alert, oriented x 3, equal unlabored respirations, skin warm/dry/pink. 20:11 General: Appears in no apparent distress. Behavior is calm, cooperative. Pain: ak1 Complains of pain in abdomen and back. Neuro: No deficits noted. Cardiovascular: No deficits noted. Respiratory: No deficits noted. GI: No signs and/or symptoms were reported involving the gastrointestinal system. : No signs and/or symptoms were reported regarding the genitourinary system. EENT: No signs and/or symptoms were reported regarding the EENT system. Derm: No signs and/or symptoms reported regarding the dermatologic system. Musculoskeletal: No signs and/or symptoms reported regarding the musculoskeletal system. Vital Signs: 17:28 BP 124 / 74; Pulse 96; Resp 18; Temp 97.8; Pulse Ox 99% ; Weight 47.17 kg; Height 5 ft. sv 1 in. (154.94 cm); Pain 9/10; 18:30 BP 125 / 90; Pulse 88; Resp 15; Pulse Ox 100% ; hb 17:28 Body Mass Index 19.65 (47.17 kg, 154.94 cm) sv ED Course: 17:24 Patient arrived in ED. sv 17:24 Milady Garnica, RN is Primary Nurse. sv 17:26 Triage completed. sv 17:28 Arm band placed on. sv 17:28 Patient has correct armband on for positive identification. Bed in low position. Call light in reach. Pulse ox on. NIBP on. Door closed. Head of bed elevated. 17:33 Sommer Narayan FNP-C is PHCP. kb 17:35 Inserted saline lock: 22 gauge in left wrist, using aseptic technique. Blood collected. hb 17:36 Hardy Rich MD is Attending Physician. kdr 17:39 Radiology exam delayed due to lab results not completed at this time. (BUN/Creatinine) vm2 test not completed at this time. 17:56 Awaiting lab results, Awaiting CT Scan. sv 18:26 Radiology exam delayed due to test not completed at this time. vm2 18:44 Thuan Austin PA is PHCP. [facility] 18:53 CT Abd/Pelvis - IV Contrast Only In Process Unspecified. EDMS 18:53 CT completed. Patient tolerated procedure well. Patient moved to CT. Patient moved back de from CT. 19:08 Report given to Bhumika RN and Robin JESUS. sv 19:11 Primary Nurse role handed off by Milady Garnica RN sv 20:09 Bhuimka Deng RN is Primary Nurse. ak1 20:10 No provider procedures requiring assistance completed. IV discontinued, intact, ak1 bleeding controlled, No redness/swelling at site. Pressure dressing applied. Administered Medications: 17:48 Drug: NS 0.9% 1000 ml Route: IV; Rate: 1 bolus; Site: left wrist; sv 20:11 Follow up: IV Status: Completed infusion ak1 Outcome: 19:53 Discharge ordered by . [facility] 20:10 Discharged to home ambulatory. ak1 20:10 Condition: good 20:10 Discharge instructions given to patient, Instructed on discharge instructions, follow up and referral plans. Demonstrated understanding of instructions, follow-up care. 20:17 Patient left the ED. ak1 Signatures: Dispatcher [employer] EDMS Sommer Narayan FNP-C FINISHED METAL REPAIRER-Milady New RN RN Hardy Rich MD MD kdr Mickail, Joel, PA PA jmm Krenek, Amber, RN RN ak1 Ingrid Diop RN RN Levi Cates [place] 2
--- NOTE | 2019-06-13 19:53 | EDPHYS ---
Physician Documentation [facility] Name: Kitty Wall Age: 28 yrs Sex: Female : 1990 Arrival Date: 06/13/2019 Time: 17:24 Bed 6 Private MD: ED Physician Hardy Rich HPI: 06/13 18:45 This 28 yrs old Female presents to ER via EMS with complaints of Pain, kdr Abdominal Swelling. 18:45 The patient presents with abdominal pain in the left upper quadrant, in the left lower kdr quadrant. Onset: The symptoms/episode began/occurred today. The symptoms do not radiate. Associated signs and symptoms: Pertinent positives: nausea, Pertinent negatives: chest pain, constipation, diarrhea, dysuria, fever, palpitations, shortness of breath, vomiting, vomiting blood. The symptoms are described as achy, crampy, vague, waxing/waning. Modifying factors: The symptoms are alleviated by nothing, the symptoms are aggravated by breathing deeply, movement, touching the area. Severity of pain: At its worst the pain was moderate in the emergency department the pain is unchanged. The patient has not experienced similar symptoms in the past. The patient has not recently seen a physician. The patient states that her kidneys are swollen and she has a history of kidney tumors. Historical: - Allergies: 17:28 NKA; sv - Home Meds: 17:28 Lamictal 100 mg Oral tab 1 tab 2 times per day [Active]; Zofran Oral [Active]; sv quetiapine 25 mg oral tab nightly [Active]; gabapentin 100 mg oral cap 3 times per day [Active]; Lexapro 20 mg Oral tab 1 tab once daily [Active]; - PMHx: 17:28 Anxiety; Bipolar disorder; Depression; Kidney tumor; Schizophrenia; Seizures; sv - PSHx: 17:28 stimulator; sv - Immunization history:: Adult Immunizations up to date. - Social history:: Smoking status: Patient/guardian denies using tobacco. - Ebola Screening: : No symptoms or risks identified at this time. ROS: 18:45 Constitutional: Negative for fever, chills, and weight loss, Eyes: Negative for injury, kdr pain, redness, and discharge, Neck: Negative for injury, pain, and swelling, Cardiovascular: Negative for chest pain, palpitations, and edema, Respiratory: Negative for shortness of breath, cough, wheezing, and pleuritic chest pain, Back: Negative for injury and pain, : Negative for injury, bleeding, discharge, and swelling, MS/Extremity: Negative for injury and deformity, Skin: Negative for injury, rash, and discoloration, Neuro: Negative for headache, weakness, numbness, tingling, and seizure activity. Psych: Negative for depression, anxiety, suicide ideation, homicidal ideation, and hallucinations, Allergy/Immunology: Negative for hives, rash, and allergies, Endocrine: Negative for neck swelling, polydipsia, polyuria, polyphagia, and marked weight changes, Hematologic/Lymphatic: Negative for swollen nodes, abnormal bleeding, and unusual bruising. 18:45 Abdomen/GI: Positive for abdominal pain, nausea, abdominal cramps, abdominal distension, Negative for vomiting, anorexia, black/tarry stool, rectal pain, rectal bleeding, bowel incontinence. Exam: 18:45 Constitutional: This is a well developed, well nourished patient who is awake, alert, kdr and in no acute distress. Head/Face: Normocephalic, atraumatic. Eyes: Pupils equal round and reactive to light, extra-ocular motions intact. Lids and lashes normal. Conjunctiva and sclera are non-icteric and not injected. Cornea within normal limits. Periorbital areas with no swelling, redness, or edema. Neck: Trachea midline, no thyromegaly or masses palpated, and no cervical lymphadenopathy. Supple, full range of motion without nuchal rigidity, or vertebral point tenderness. No Meningismus. Chest/axilla: Normal chest wall appearance and motion. Nontender with no deformity. No lesions are appreciated. Cardiovascular: Regular rate and rhythm with a normal S1 and S2. No gallops, murmurs, or rubs. Normal PMI, no JVD. No pulse deficits. Respiratory: Lungs have equal breath sounds bilaterally, clear to auscultation and percussion. No rales, rhonchi or wheezes noted. No increased work of breathing, no retractions or nasal flaring. Back: No spinal tenderness. No costovertebral tenderness. Full range of motion. Skin: Warm, dry with normal turgor. Normal color with no rashes, no lesions, and no evidence of cellulitis. MS/ Extremity: Pulses equal, no cyanosis. Neurovascular intact. Full, normal range of motion. Neuro: Awake and alert, GCS 15, oriented to person, place, time, and situation. Cranial nerves II-XII grossly intact. Motor strength 5/5 in all extremities. Sensory grossly intact. Cerebellar exam normal. Normal gait. Psych: Awake, alert, with orientation to person, place and time. Behavior, mood, and affect are within normal limits. 18:45 Abdomen/GI: Inspection: distension, that is mild, obese Bowel sounds: active, all quadrants, Palpation: soft, mild abdominal tenderness, in the anterior aspect of left lateral abdomen, left upper quadrant and left lower quadrant, Indicators: McBurney's point is not tender, Emerson's sign is negative, Rovsing's sign is negative, Obturator sign is negative, Psoas sign is negative. Vital Signs: 17:28 BP 124 / 74; Pulse 96; Resp 18; Temp 97.8; Pulse Ox 99% ; Weight 47.17 kg; Height 5 ft. sv 1 in. (154.94 cm); Pain 9/10; 18:30 BP 125 / 90; Pulse 88; Resp 15; Pulse Ox 100% ; hb 17:28 Body Mass Index 19.65 (47.17 kg, 154.94 cm) sv MDM: 18:[address] [facility] 19:51 Data reviewed: vital signs, nurses notes. Data reviewed: lab test result(s), radiologic jmm studies, CT scan. Counseling: I had a detailed discussion with the patient and/or guardian regarding: the historical points, exam findings, and any diagnostic results supporting the discharge/admit diagnosis, the need for outpatient follow up. Counseling: I had a detailed discussion with the patient and/or guardian regarding: lab results, radiology results. ED course: Patient is alert and non toxic in appearance in the ED. Patient advised to follow up with pcp and otherwise given strict return precautions. Patient understood and agrees with the plan of care. . 06/13 17:26 Order name: Basic Metabolic Panel; Complete Time: 18:06/13 17:26 Order name: CBC with Diff; Complete Time: 18:06/13 17:26 Order name: Creatinine for Radiology; Complete Time: 18:06/13 17:26 Order name: Hepatic Function; Complete Time: 18:01 17:26 Order name: Lipase; Complete Time: 18:09 sv 06/13 18:39 Order name: Urine Dipstick--Ancillary (enter results); Complete Time: 18:52 eb 06/13 17:26 Order name: IV Saline Lock; Complete Time: 17:36 sv 06/13 17:26 Order name: Labs collected and sent; Complete Time: 17:36 sv 06/13 17:36 Order name: CT Abd/Pelvis - IV Contrast Only; Complete Time: 19:15 kdr 06/13 18:27 Order name: Urine Dipstick-Ancillary (obtain specimen); Complete Time: 18:38 ss 06/13 18:27 Order name: Urine Test (obtain specimen); Complete Time: 18:38 ss 06/13 18:39 Order name: Urine --Ancillary (enter results); Complete Time: 18:52 eb Administered Medications: 17:48 Drug: NS 0.9% 1000 ml Route: IV; Rate: 1 bolus; Site: left wrist; sv 20:11 Follow up: IV Status: Completed infusion ak1 Disposition: 06/13/19 19:53 Discharged to Home. Impression: Generalized abdominal pain. - Condition is Stable. - Discharge Instructions: Abdominal Pain, Adult. - Medication Reconciliation Form, Thank You Letter, Antibiotic Education, Prescription Opioid Use form. - Follow up: Private Physician; When: 2 - 3 days; Reason: Recheck today's complaints, Continuance of care, Re-evaluation by your physician. Addendum: 06/17/2019 08:52 Co-signature as Attending Physician, Hardy Rich MD I agree with the assessment and k dr plan of care. Signatures: Dispatcher [employer] Milady Higgins RN RN Hardy Frye MD MD kdr Mickail, Joel, PA PA jmm Smirch, Shelby, RN RN Bhumika Deng RN RN ak1 Ingrid Diop RN RN Corrections: (The following items were deleted from the chart) 06/13 20:17 19:53 06/13/2019 19:53 Discharged to Home. Impression: Generalized abdominal pain. ak1 Condition is Stable. Forms are Medication Reconciliation Form, Thank You Letter, Antibiotic Education, Prescription Opioid Use. Follow up: Private Physician; When: 2 - 3 days; Reason: Recheck today's complaints, Continuance of care, Re-evaluation by your physician. tim
[2019-06-13 20:58] VITALS: TEMP 97.8
[2019-06-13 20:59] VITALS: BP 125/90; O2SAT 100
== END 2019-06-13 20:17 | disposition home or self-care (01) ==
LOC: ER 17:21
DX: R10.84 Generalized abdominal pain (principal); F32.9 Major depressive disorder, single episode, unspecified; F41.9 Anxiety disorder, unspecified; F31.9 Bipolar disorder, unspecified; F20.9 Schizophrenia, unspecified; G40.909 Epilepsy, unspecified, not intractable, without status epilepticus
CPT/HCPCS: 36415; 74177; 80048; 80076; 81003; 81025; 83690; 85025; 96360; 96361; 99284; J7030; Q9967

== ENCOUNTER 2019-08-11 22:38 | Emergency (ER) | payer MEDICAID ==
[2019-08-11] MEDS ORDERED: KETOROLAC 30 MG/ML INJ ONE (23:50)
[2019-08-11 23:53] LABS: Absolute Lymphocytes (CBC) 1.9 K/uL (0.7-4.9); Basophils % 0.6 % (0-1.3); Hematocrit 32.9 % (36.0-45.0); Lymphocytes % 23.9 % (15.3-44.8); MPV 7.4 fL (7.6-11.3); RBC Red Blood Cell Count 3.59 M/uL (3.86-4.86)
[2019-08-12 00:06] LABS: Protime INR 1.01
[2019-08-12 00:13] LABS: ALT/SGPT 20 U/L (12-78); AST/SGOT 20 U/L (15-37); Albumin 3.3 g/dL (3.4-5.0); Alkaline Phosphatase 102 U/L (45-117); BUN Blood Urea Nitrogen 17 mg/dL (7-18); Bicarbonate 27 mmol/L (21-32); Bilirubin Direct < 0.1 mg/dL (0-0.2); Bilirubin Total 0.1 mg/dL (0.2-1.0); CKMB Creatine Kinase MB < 1.0 ng/mL (0.3-3.6); Creatine Phosphokinase 47 U/L (26-192); Glucose Level 92 mg/dL (74-106); Lipase 85 U/L (73-393); Magnesium 1.6 mg/dL (1.8-2.4); Potassium 3.9 mmol/L (3.5-5.1); Protein, Total 8.3 g/dL (6.4-8.2); Sodium Level 141 mmol/L (136-145); Troponin (Emerg Dept Use Only) < 0.02 ng/mL (0.0-0.045)
[2019-08-12 00:42] LABS: Urine Blood 3+ (NEG); Urine Glucose NEGATIVE (NEG); Urine Protein 3+ (NEG); Urine Specific Gravity >1.030 (1.005-1.030); Urine pH 5.5 (5.0-7.0)
[2019-08-12 00:48] LABS: Urine RBC 20-50 /HPF (NONE SEEN)
[2019-08-12 00:49] LABS: Urine Bacteria >50 /HPF (<20); Urine Culture Reflex Order NOT NEEDED
[2019-08-12] MEDS ORDERED: KETOROLAC 30 MG/ML INJ ONE (02:26)
--- NOTE | 2019-08-12 03:56 | ER ---
Nurse's Notes [facility] Name: Kitty Wall Age: 28 yrs Sex: Female : 1990 Arrival Date: 08/11/2019 Time: 22:44 Bed 2 Private MD: Diagnosis: Syncope and collapse Presentation: 08/11 22:44 Presenting complaint: Patient states: "I passed out and now my chest hurts. this is the jd3 what happens during my anxiety attacks." EMS states: "the pt had a syncope episode. no injuries reported. she said she has a history of seizures and anxiety. we started a 22 G in her left AC, but didn't end up giving her anything. her vital signs were within normal limits and the EKG was unremarkable and showed normal sinus rhythm.". Transition of care: patient was not received from another setting of care. Onset of symptoms was August 11, 2019. Risk Assessment: Do you want to hurt yourself or someone else? Patient reports no desire to harm self or others. Initial Sepsis Screen: Does the patient meet any 2 criteria? No. Patient's initial sepsis screen is negative. Does the patient have a suspected source of infection? No. Patient's initial sepsis screen is negative. Care prior to arrival: IV initiated. 22 GA, in the left antecubital area. 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 - Social history:: Smoking status: Patient/guardian denies using tobacco, the patient reports quitting approximately 2 years ago. - Ebola Screening: : Patient negative for fever greater than or equal to 101.5 degrees Fahrenheit, and additional compatible Ebola Virus Disease symptoms. Screenin:53 Abuse screen: Denies threats or abuse. Nutritional screening: No deficits noted. jd3 Tuberculosis screening: No symptoms or risk factors identified. Fall Risk IV access (20 points). Ambulatory Aid- None/Bed Rest/Nurse Assist (0 pts). Gait- Normal/Bed Rest/Wheelchair (0 pts) Mental Status- Oriented to own ability (0 pts). Total Quinn Fall Scale indicates No Risk (0-24 pts). Assessment: 22:51 General: Appears in no apparent distress. comfortable, Behavior is calm, cooperative, jd3 appropriate for age. Pain: Complains of pain in chest Pain does not radiate. Quality of pain is described as sharp. Neuro: Level of Consciousness is awake, alert, obeys commands, Oriented to person, place, time, situation, Reports a syncopal episode. Cardiovascular: Heart tones S1 S2 present Capillary refill < 3 seconds Patient's skin is warm and dry. Respiratory: Reports shortness of breath Airway is patent Respiratory effort is even, unlabored, Respiratory pattern is regular, symmetrical, Breath sounds are clear bilaterally. Denies cough. GI: Abdomen is round non-distended, Abd is soft and non tender X 4 quads. Reports nausea, Patient currently denies abdominal pain, diarrhea, vomiting. : No signs and/or symptoms were reported regarding the genitourinary system. EENT: No signs and/or symptoms were reported regarding the EENT system. Derm: Skin is intact, Skin is dry, Skin is normal, Skin temperature is warm. Musculoskeletal: Circulation, motion, and sensation intact. Range of motion: intact in all extremities. 23:21 Reassessment: family at bedside. jd3 08/12 00:55 Reassessment: Patient appears in no apparent distress at this time. Patient and/or jd3 family updated on plan of care and expected duration. Pain level reassessed. Patient is alert, oriented x 3, equal unlabored respirations, skin warm/dry/pink. Patient denies pain at this time. Patient states feeling better. 01:59 Reassessment: Patient appears in no apparent distress at this time. Patient and/or jd3 family updated on plan of care and expected duration. Pain level reassessed. Patient is alert, oriented x 3, equal unlabored respirations, skin warm/dry/pink. Patient denies pain at this time. 02:30 Reassessment: Patient appears in no apparent distress at this time. Patient and/or jd3 family updated on plan of care and expected duration. Pain level reassessed. Patient is alert, oriented x 3, equal unlabored respirations, skin warm/dry/pink. awaiting CT. 03:41 Reassessment: Patient appears in no apparent distress at this time. Patient and/or jd3 family updated on plan of care and expected duration. Pain level reassessed. Patient is alert, oriented x 3, equal unlabored respirations, skin warm/dry/pink. awaiting CT results. 04:11 Reassessment: Patient appears in no apparent distress at this time. Patient and/or jd3 family updated on plan of care and expected duration. Pain level reassessed. Patient is alert, oriented x 3, equal unlabored respirations, skin warm/dry/pink. reported understanding of discharge instructions. Patient states feeling better. Vital Signs: 08/11 22:50 BP 125 / 70; Pulse 91; Resp 17 S; Temp 98.0(O); Pulse Ox 99% on R/A; Weight 63.5 kg jd3 (R); Height 5 ft. 1 in. (154.94 cm) (R); Pain 10/10; 23:45 BP 123 / 80; Pulse 85; Resp 17 S; Pulse Ox 97% on R/A; jd3 08/12 00:55 BP 119 / 71; Pulse 82; Resp 16 S; Pulse Ox 100% on R/A; Pain 0/10; jd3 02:00 BP 99 / 53; Pulse 84; Resp 16 S; Pulse Ox 98% on R/A; jd3 03:41 BP 118 / 80; Pulse 85; Resp 16 S; Pulse Ox 98% on R/A; jd3 08/11 22:50 Body Mass Index 26.45 (63.50 kg, 154.94 cm) [facility] ED Course: 08/11 22:44 Patient arrived in ED. jd3 22:48 Triage completed. jd3 22:51 Arm band placed on. jd3 22:53 Patient has correct armband on for positive identification. Bed in low position. Call j light in reach. Side rails up X2. 22:53 Maintain EMS IV. Dressing intact. Good blood return noted. Site clean \\T\\ dry. Gauge \\T\\ zi 3 site: 22 G left AC. 23:22 Jesus Mcclure MD is Attending Physician. ps1 23:40 Robin Coleman RN is Primary Nurse. jd3 23:40 EKG done, by rail technician. reviewed by Jesus Mcclure MD. jd3 08/12 00:17 Notified ED physician of a critical lab result(s). D-Dimer of 557. jd3 02:53 CT Chest For PE Angio In Process Unspecified. EDMS 04:10 No provider procedures requiring assistance completed. IV discontinued, intact, jd3 bleeding controlled, No redness/swelling at site. Pressure dressing applied. Administered Medications: 08/11 23:51 Drug: TORadol - Ketorolac 15 mg Route: IVP; Site: left antecubital; jd3 08/12 00:50 Follow up: Response: No adverse reaction jd3 02:27 Drug: TORadol - Ketorolac 15 mg Route: IVP; Site: left antecubital; jd3 03:25 Follow up: Response: No adverse reaction jd3 Outcome: 03:56 Discharge ordered by MD. ps1 04:10 Discharged to home ambulatory, with family. jd3 04:10 Condition: stable 04:10 Discharge instructions given to patient, family, Instructed on discharge instructions, follow up and referral plans. Demonstrated understanding of instructions, follow-up care. 04:12 Patient left the ED. jd3 Signatures: Dispatcher [employer] Robin Goncalves RN RN Jesus Howell MD MD ps1 Corrections: (The following items were deleted from the chart) 08/11 22:54 22:44 Presenting complaint: Patient states: "I passed out and now my chest hurts. this jd3 is the what happens during my anxiety attacks." EMS states: "the pt had a syncope episode. no injuries reported. she said she has a history of seizures and anxiety. we started a 22 G in her left AC, but didn't end up giving her anything. her vital signs were within normal limits and the EKG was unremarkable and showed normal sinus rhythm." jd3 23:21 22:51 Pain: Complains of pain in chest Quality of pain is described as sharp, jd3 jd3
--- NOTE | 2019-08-12 03:57 | EDPHYS ---
Physician Documentation [facility] Name: Kitty Wall Age: 28 yrs Sex: Female : 1990 Arrival Date: 08/11/2019 Time: 22:44 Bed 2 Private MD: ED Physician Jesus Mcclure HPI: 08/11 23:47 This 28 yrs old Female presents to ER via EMS with complaints of syncope. ps1 23:47 Patient presenting with syncope from [facility]. Patient states that she has syncopal ps1 events with excitement. Patient has a new boyfriend and was excited about being with him. States that she had chest pain and SOB after the event. Non-radiating. Hx of schizophrenia, bipolar, depression,anxiety.. 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 - Social history:: Smoking status: Patient/guardian denies using tobacco, the patient reports quitting approximately 2 years ago. - Ebola Screening: : Patient negative for fever greater than or equal to 101.5 degrees Fahrenheit, and additional compatible Ebola Virus Disease symptoms. ROS: 23:47 Constitutional: Negative for fever, chills, and weight loss, Eyes: Negative for injury, ps1 pain, redness, and discharge, Abdomen/GI: Negative for abdominal pain, nausea, vomiting, diarrhea, and constipation, Back: Negative for injury and pain, MS/Extremity: Negative for injury and deformity, Skin: Negative for injury, rash, and discoloration. 23:47 Cardiovascular: Positive for chest pain, palpitations. 23:47 Respiratory: Positive for shortness of breath. 23:47 Neuro: Positive for syncope. Exam: 23:47 Constitutional: This is a well developed, well nourished patient who is awake, alert, ps1 and in no acute distress. Head/Face: Normocephalic, atraumatic. Chest/axilla: Normal chest wall appearance and motion. Nontender with no deformity. No lesions are appreciated. Cardiovascular: Regular rate and rhythm. No gallops, murmurs, or rubs. Normal PMI, no JVD. No pulse deficits. Respiratory: Lungs have equal breath sounds bilaterally, clear to auscultation and percussion. No rales, rhonchi or wheezes noted. No increased work of breathing, no retractions or nasal flaring. Abdomen/GI: Soft, non-tender, with normal bowel sounds. No distension or tympany. No guarding or rebound. No evidence of tenderness throughout. Skin: Warm, dry with normal turgor. Normal color with no rashes, no lesions, and no evidence of cellulitis. MS/ Extremity: Pulses equal, no cyanosis. Neurovascular intact. Full, normal range of motion. Neuro: Awake and alert, GCS 15, oriented to person, place, time, and situation. Cranial nerves II-XII grossly intact. Sensory grossly intact. Vital Signs: 22:50 BP 125 / 70; Pulse 91; Resp 17 S; Temp 98.0(O); Pulse Ox 99% on R/A; Weight 63.5 kg jd3 (R); Height 5 ft. 1 in. (154.94 cm) (R); Pain 10/10; 23:45 BP 123 / 80; Pulse 85; Resp 17 S; Pulse Ox 97% on R/A; jd3 08/12 00:55 BP 119 / 71; Pulse 82; Resp 16 S; Pulse Ox 100% on R/A; Pain 0/10; jd3 02:00 BP 99 / 53; Pulse 84; Resp 16 S; Pulse Ox 98% on R/A; jd3 03:41 BP 118 / 80; Pulse 85; Resp 16 S; Pulse Ox 98% on R/A; jd3 08/11 22:50 Body Mass Index 26.45 (63.50 kg, 154.94 cm) jd3 MDM: 00:07 Patient medically screened. ps1 03:56 Data reviewed: vital signs, nurses notes, lab test result(s), EKG, radiologic studies, ps1 and as a result, I will discharge patient. Counseling: I had a detailed discussion with the patient and/or guardian regarding: the historical points, exam findings, and any diagnostic results supporting the discharge/admit diagnosis, lab results, radiology results, the need for outpatient follow up, to return to the emergency department if symptoms worsen or persist or if there are any questions or concerns that arise at home. 08/11 23:42 Order name: Basic Metabolic Panel [facility] 08/11 23:42 Order name: CBC with Diff; Complete Time: 00:07 [facility] 08/11 23:42 Order name: Ckmb [facility] 08/11 23:42 Order name: CPK; Complete Time: 00:18 [facility] 08/11 23:42 Order name: Hepatic Function; Complete Time: 00:18 [facility] 08/11 23:42 Order name: Lipase; Complete Time: 00:18 [facility] 08/11 23:42 Order name: Magnesium; Complete Time: 00:18 [facility] 08/11 23:42 Order name: Protime (+inr); Complete Time: 00:18 [facility] 08/11 23:42 Order name: Ptt, Activated; Complete Time: 00:18 [facility] 08/11 23:42 Order name: Troponin (emerg Dept Use Only); Complete Time: 00:18 [facility] 08/11 23:43 Order name: Basic Metabolic Panel; Complete Time: 00:18 [facility] 08/11 23:43 Order name: CKMB Creatine Kinase MB; Complete Time: 00:18 [facility] 08/11 23:59 Order name: D-Dimer; Complete Time: 00:18 [facility] 08/11 23:42 Order name: EKG; Complete Time: 23:43 [facility] 08/11 23:42 Order name: Cardiac monitoring; Complete Time: 23:42 [facility] 08/11 23:42 Order name: EKG - Nurse/Tech; Complete Time: 23:42 [facility] 08/11 23:42 Order name: IV Saline Lock; Complete Time: 23:47 [facility] 08/11 23:42 Order name: Labs collected and sent; Complete Time: 23:47 [facility] 08/11 23:42 Order name: NPO; Complete Time: 23:42 [facility] 08/11 23:42 Order name: O2 Per Protocol; Complete Time: 23:42 [facility] 08/11 23:42 Order name: O2 Sat Monitoring; Complete Time: 23:43 [facility] 08/11 23:42 Order name: Urine Dipstick-Ancillary (obtain specimen); Complete Time: 00:37 [facility] 08/11 23:43 Order name: Urine Test (obtain specimen); Complete Time: 00:37 [facility] 08/12 00:36 Order name: Urine Dipstick--Ancillary (enter results); Complete Time: 01:06 mw2 08/12 00:36 Order name: Urine --Ancillary (enter results); Complete Time: 01:06 mw2 08/12 00:37 Order name: Urine Microscopic Only; Complete Time: 01:06 mt 08/12 01:07 Order name: CT Chest For PE Angio ps1 EC/29 23:40 Rate is 87 beats/min. Rhythm is regular. QRS [place] is Normal. [place] interval is normal. QRS ps1 interval is normal. QT interval is normal. No Q waves. T waves are Normal. No ST changes noted. Clinical impression: Normal ECG. Interpreted by me. Administered Medications: 23:51 Drug: TORadol - Ketorolac 15 mg Route: IVP; Site: left antecubital; jd3 08/12 00:50 Follow up: Response: No adverse reaction jd3 02:27 Drug: TORadol - Ketorolac 15 mg Route: IVP; Site: left antecubital; jd3 03:25 Follow up: Response: No adverse reaction jd3 Disposition: 08/12/19 03:56 Discharged to Home. Impression: Syncope and collapse. - Condition is Stable. - Discharge Instructions: Syncope. - Medication Reconciliation Form, Thank You Letter, Antibiotic Education, Prescription Opioid Use form. - Follow up: Emergency Department; When: As needed; Reason: If symptoms return, Worsening of condition. Follow up: Private Physician; When: 48 Hours; Reason: Further diagnostic work-up, Recheck today's complaints, Continuance of care, Re-evaluation by your physician. - Problem is new. - Symptoms have improved. Signatures: Dispatcher [employer] [facility] Robin Coleman RN RN jd3 Jesus Mcclure MD MD ps1 Corrections: (The following items were deleted from the chart) 08/11 23:59 23:51 D-DIMER+[email or web address] ordered. [facility] 08/12 04:12 03:56 08/12/2019 03:56 Discharged to Home. Impression: Syncope and collapse. Condition jd3 is Stable. Forms are Medication Reconciliation Form, Thank You Letter, Antibiotic Education, Prescription Opioid Use. Follow up: Emergency Department; When: As needed; Reason: If symptoms return, Worsening of condition. Follow up: Private Physician; When: 48 Hours; Reason: Further diagnostic work-up, Recheck today's complaints, Continuance of care, Re-evaluation by your physician. Problem is new. Symptoms have improved. ps1
[2019-08-12 04:35] VITALS: TEMP 98
[2019-08-12 04:37] VITALS: O2SAT 98
[2019-08-12 04:38] VITALS: BP 118/80
--- NOTE | 2019-08-12 06:10 | EKG ---
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
--- NOTE | 2019-08-13 17:31 | RAD REPORT ---
EXAM DESCRIPTION: CT Angiography Chest With Intravenous Contrast CLINICAL HISTORY: The patient is 28 years old and is Female; elevated ddimer TECHNIQUE: Axial computed tomographic angiography images of the chest with intravenous contrast. S agittal and coronal reformatted images were created and reviewed. This CT exam was performed using one or more of the following dose reduction techniques: automated exposure control, adjustment of t he mA and/or kV according to patient size, and/or use of iterative reconstruction technique. MIP reconstructed images were created and reviewed. COMPARISON: No relevant prior studies available. FINDINGS: PULMONARY ARTERIES: There are no obvious filling defects identified within the pulmonary arteries to suggest pulmonary embolism. AORTA: No acute findings. No thoracic aortic aneurysm. LUNGS: Unremarkable. No mass. No consolidation. PLEURAL SPACE: Unremarkable. No significant effusion. No pneumothorax. HEART: Unremarkable. No cardiomegaly. No significant pericardial effusion. No evidence of RV dysfunction. BONES/JOINTS: No acute fracture. No dislocation. SOFT TISSUES: Unremarkable. LYMPH NODES: Unremarkable. No enlarged lymph nodes. LIVER: The liver is enlarged and fatty. TUBES, LINES AND DEVICES: A vagal nerve stimulator is present. IMPRESSION: No evidence of pulmonary embolism. Electronically signed by: Dolly Orozco MD 08/12/2019 3:09 AM CDT Due to temporary technical issues with the PACS/Fluency reporting system, reports are being signed by the in house radiologist as a courtesy to ensure prompt reporting. The interpreting radiologist is f ully responsible for the content of the report.
== END 2019-08-12 04:12 | disposition home or self-care (01) ==
LOC: ER 22:38
DX: R55 Syncope and collapse (principal)
CPT/HCPCS: 93005; 85025; 80048; 36415; 83735; 82550; 81025; 85610; 85379; 80076; 85730; 84484; 82553; 83690; 71275; 96374; 99284; Q9967; 81003; 81015

== ENCOUNTER 2020-04-13 18:13 | Emergency (ER) | payer SELFPAY ==
--- OUTSIDE RECORDS SUMMARY | 2020-04-13 19:33 | XMS REPORT | Summary of Care ---
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 Pulmonary nodules Tuberous sclerosis SOB (shortness of breath) Jesika Rodriguez NP Radiology Procedures CT thorax without contrast [address] [place] [address] (Routine) Status Reason Specialty Diagnoses / Referred By Referred To Procedures Contact Contact New Request Pulmonary Function Diagnoses Angiomyolipoma of both kidneys Pulmonary nodules Tuberous sclerosis SOB (shortness of breath) Jesika Rodriguez NP Technologist Procedures DIAGNOSTIC PROCEDURE Preferred Location: [facility] [address] [place] [address] Reason for Visit Reason Comments New Patient Cancer (Routine) Status Reason Specialty Diagnoses / Referred By Referred To Procedures Contact Contact New Request Oncology Diagnoses 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 Leila Earl Procedures CONSULT/REFERRAL MEDICAL ONCOLOGY N, DIGITAL ARTIST [address] [facility] [address] [place] [address] Encounter Details Date Type Department Care Team Description 01/17/2020 Office Visit [facility] SonyaClement Rp, M D Angiomyolipoma of both kidneys (Primary Dx); Hematology-Oncology [address] Status post nephrectomy; [place] [address] Pulmonary nodules; [address] [phone] Anemia, unspecified type; Drive Tuberous sclerosis; [facility] SOB (shortness of breath) Building, [address] [place] [address] Allergies No Known Allergiesdocumented as of this encounter (statuses as of 01/17/2020) Medications Medication Sig Dispensed Refills Start End Status Date Date escitalopram Take 20 mg by 0 Act ric oxalate 20 mg mouth daily. tablet Lamotrigine 100 mg Take by mouth. 0 Active TbDL traZODONE 50 mg Take 50 mg by 0 Active tablet mouth at bedtime. Cetirizine 10 mg Take by mouth. 0 Active capsule Everolimus Take by mouth. 0 Act ric (AFINITOR) 5 mg Tab traMADOL 50 mg Take 1 tablet by 30 tablet 0 Active tabletIndications: mouth every 6 9 Left upper quadrant (six) hours as pain, Tuberous needed for Pain sclerosis, (scale 4-6). Angiomyolipoma, Flank pain ondansetron 4 mg Take 1 tablet by 20 tablet 0 Active disintegrating mouth every 4 9 tabletIndications: (four) hours as Left upper quadrant needed for pain, Tuberous Nausea and sclerosis, Vomiting (N/V). Angiomyolipoma, Flank pain GIANVI, 28, 3-0.02 Take 1 tablet by 5 Active mg per tablet mouth daily. 9 fluticasone 50 USE 1 SPRAY 3 Act ric mcg/actuation nasal INTRANASALLY 8 spray ONCE A DAY gabapentin 100 mg Take 1 capsule 90 capsule 0 Active capsuleIndications: by mouth 3 9 Tuberous sclerosis, (three) times Angiomyolipoma of daily. both kidneys, Left flank pain ondansetron 4 mg Take 1 tablet by 20 tablet 0 Active disintegrating mouth every 4 9 tabletIndications: (four) hours as Flank pain, needed for Tuberous sclerosis Nausea and Vomiting (N/V). acetaminophen Take 2 tablets 60 tablet 1 A ctive (TYLENOL) 325 mg by mouth every 6 9 020 tabletIndications: (six) hours as Generalized needed for Pain abdominal pain (scale 4-6). gabapentin 300 mg Take 1 capsule 90 capsule 1 Active capsule by mouth 3 9 (three) times daily. phenazopyridine 200 Take 1 tablet by 9 tablet 0 Active mg mouth 3 (three) 9 tabletIndications: times daily. Dysuria, Feeling of incomplete bladder emptying, Angiomyolipoma of both kidneys, Anemia, unspecified type acetaminophen Take 2 tablets 60 tablet 1 A ctive (TYLENOL) 325 mg by mouth every 6 0 021 tabletIndications: (six) hours as Angiomyolipoma of needed for Pain both kidneys (scale 4-6). docusate 100 mg Take 1 capsule 30 capsule 0 Active capsuleIndications: by mouth daily. 0 Angiomyolipoma of both kidneys clindamycin 2 % Insert 1 40 g 0 Acti ve creamIndications: Applicator into 0 Dysuria, Yeast vagina at vaginitis bedtime. Everolimus Take 1 tablet by 30 tablet 5 Ac tive (AFINITOR) 10 mg mouth daily for 0 020 tabletIndications: 180 days. Angiomyolipoma of both kidneys, Tuberous sclerosis ibuprofen 600 mg Take 1 tablet by 30 tablet 1 Discontinued tabletIndications: mouth every 6 0 020 (Therapy Angiomyolipoma of (six) hours as completed) both kidneys needed for Pain (scale 4-6). documented as of this encounter (statuses as of 01/17/2020) Active Problems Problem Noted Date Status post nephrectomy 12/05/2019 Pulmonary nodules 12/05/2019 Renal mass 10/02/2019 Overview: Added automatically from request for luz maria vel [id number] 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 Overview: Added automatically from request for luz maria vel [id number] Obesity (BMI 30-39.9) 09/27/2019 Mass of right kidney 09/26/2019 documented as of this encounter (statuses as of 01/17/2020) Immunizations Name Administration Dates Next Due Influenza Virus Vaccine Quad .5 mL IM 6+ MO 10/01/2019 documented as of this encounter Social History Tobacco Use Types Packs/Day Years Used Date Never Smoker Smokeless Tobacco: Never Used Alcohol Use Drinks/Week oz/Week Comments Never Alcohol Habits Answer Date Recorded How often do you have a drink containing alcohol? Never 01/17/2020 How many drinks containing alcohol do you have on a typical Not asked day when you are drinking? How often do you have six or more drinks on one occasion? No t asked Financial Resource Strain Answer Date Recorded How hard is it for you to pay for the very basics like Not h denise at all 09/26/2019 food, housing, medical care, and heating? Food Insecurity Answer Date Recorded Within the past 12 months, you worried that your food would Never true 09/26/2019 run out before you got money to buy more. Within the past 12 months, the food you bought just didn't N ever true 09/26/2019 last and you didn't have money to get more. Transportation Needs Answer Date Recorded In the past 12 months, has lack of transportation kept you f rom No 09/26/2019 medical appointments or from getting medications? In the past 12 months, has lack of transportation kept you f rom No 09/26/2019 meetings, work, or getting things needed for daily living? Sex Assigned at Date Recorded Not on file Job Start Date Occupation Industry Not on file Not on file Not on file Travel History Travel Start Travel End No recent travel history available. documented as of this encounter Last Filed Vital Signs Vital Sign Reading Time Taken Comments Blood Pressure 115/77 01/17/2020 8:56 AM COUNTER TENDER Pulse 61 01/17/2020 8:56 AM COUNTER TENDER Temperature 36.2 C (97.2 F) 01/17/2020 8:56 AM COUNTER TENDER Respiratory Rate 18 01/17/2020 8:56 AM COUNTER TENDER Oxygen Saturation 100% 01/17/2020 8:56 AM COUNTER TENDER Inhaled Oxygen Concentration - - Weight 77.5 kg (170 lb 14.4 oz) 01/17/2020 8:56 AM COUNTER TENDER Height 154.9 cm (5' 1") 01/17/2020 8:56 AM COUNTER TENDER Body Mass Index 32.29 01/17/2020 8:56 AM COUNTER TENDER documented in this encounter Patient Instructions Patient InstructionsLyssa Gordon LVN - 01/17/2020 9:00 AM COUNTER TENDER Everolimus tablets Brand Names: Afinitor, Zortress What is this medicine? EVEROLIMUS (carrie rowley) decreases the activity of your immune system. Afinitor is used to treat certain types of cancer. Zortress is used for kidney and liver transplant rejection prophylaxis. How should I use this medicine? Take this medicine by mouth with a full glass of water. Follow the directions on the prescription label. You can take this medicine with or without food, but always take Zortress the same way. Do not cut, crush, or chew this medicine. Do not take with grapefruit juice. Take your medicine at regular intervals. Do not take it more often than directed. Do not stop taking except on your doctor's advice. A special MedGuide will be given to you by the pharmacist with each prescription and refill. Be sureto read this information carefully each time. Talk to your acquisition associate regarding the use of this medicine in children. Special care may be needed. What side effects may I notice from receiving this medicine? Side effects that you should report to your doctor or health career development consultant as soon as possible: allergic reactions like skin rash, itching or hives, swelling of the face, lips, or tongue breathing problems chest pain cough dark urine fever or chills, sore throat increased hunger or thirst increased urination nausea, vomiting stomach pain swelling of ankles, feet, hands trouble passing urine or change in the amount of urine unusual bleeding or bruising unusually weak or tired Side effects that usually do not require medical attention (report to your doctor or health career development consultant if they continue or are bothersome): constipation diarrhea dizziness dry mouth or mouth sores headache nausea, vomiting What may interact with this medicine? This medicine may interact with the following medications: antiviral medicines for HIV or AIDS aprepitant carbamazepine certain medicines for cholesterol like simvastatin clarithromycin cyclosporine dexamethasone diltiazem erythromycin fluconazole grapefruit juice itraconazole ketoconazole live vaccines nefazodone nicardipine phenobarbital phenytoin rifabutin rifampin telithromycin verapamil voriconazole What if I miss a dose? If you miss a dose, take it as soon as you can. If it is almost time for your next dose, take only that dose. Do not take double or extra doses. Where should I keep my medicine? Keep out of the reach of children. Store at room temperature between 15 and 30 degrees C (59 and 86 degrees F). Throw away any unused medicine after the expiration date. What should I tell my health care provider before I take this medicine? They need to know if you have any of these conditions: diabetes heart disease high cholesterol immune system problems infection (especially a virus infection such as chickenpox, cold sores, or herpes) kidney disease liver disease low blood counts, like low white cell, platelet, or red cell counts rare hereditary problems of galactose intolerance, the Kenrick lactase deficiency, or glucose-galactose malabsorption an unusual or allergic reaction to everolimus, other medicines, foods, dyes, or preservatives or trying to get breast-feeding What should I watch for while using this medicine? This drug may make you feel generally unwell. This is not uncommon, as chemotherapy can affect healthy cells as well as cancer cells. Report any side effects. Continue your course of treatment even though you feel ill unless your doctor tells you to stop. Visit your doctor or health career development consultant for regular check-ups. You may need regular tests to monitor possible side effects of the drug. This medicine may affect blood sugar levels. If you have diabetes, check with your doctor or health career development consultant before you change your diet or the dose of your diabetic medicine. Do not become while taking this medicine or for 8 weeks after stopping it. Women should inform their doctor if they wish to become or think they might be . There is a potential for serious side effects to an unborn child. Talk to your health career development consultant or pharmacist for more information. Do not breast-feed an infant while taking this medicine or for 2 weeks after stopping it. This medicine has caused ovarian failure in some women. This medicine may interfere with the abilityto have a child. You should talk with your doctor or health career development consultant if you are concerned about your fertility. This medicine has caused reduced sperm counts in some men. This may interfere with the ability to father a child. You should talk to your doctor or health career development consultant if you are concerned about your fertility. Call your doctor or health career development consultant for advice if you get a fever, chills or sore throat, or other symptoms of a cold or flu. Do not treat yourself. This drug decreases your body's ability to fight infections. Try to avoid being around people who are sick. This medicine may increase your risk to bruise or bleed. Call your doctor or health career development consultant if you notice any unusual bleeding. If you have had a kidney transplant, immediately tell your doctor if your incision site is red, warm, or painful. Also, tell your doctor if your incision site opens up or swells or if contains blood, fluid, or pus. Keep out of the sun. If you cannot avoid being in the sun, wear protective clothing and use sunscreen. Do not use sun lamps or tanning beds/booths. NOTE:This sheet is a summary. It may not cover all possible information. If you have questions aboutthis medicine, talk to your doctor, pharmacist, or health care provider. Copyright 2018 [employer] TER TENDER documented in this encounter Progress Notes Clement Hassan Rp, MD - 01/17/2020 9:00 AM CST [facility] HEMATOLOGY/ONCOLOGY CLINIC VISIT TYPE: Consultation, [facility] (Internal) requested by Dr Bates/ History and Physical PCP: Dr. Bates CONSULTANTS: Urology, Nephrology, Neurology, Genetics CC: Angiomyolipoma DIAGNOSIS: Tuberous Sclerosis, Angiomyolipoma (AML) of Bilateral Kidneys, s/p Right Nephrectomy, Anemia, Menorrhagia, Seizure HISTORY OF PRESENT ILLNESS Kitty Wall is a 29 year old female with PMH listed as below referred here for Everolimus therapy consideration for angiomyolipoma. Most medical information obtained from sister/medical powerof estate attorney Kacy. 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 Previously she was treatedwith Everolimus for 2 years without much tumor shrinkage from AML. She had renal artery embolizations x2 ( 2015, 2019 ). She experienced one month duration of major hematuria with + clots in late 2019. She was noted to have right renal lesion of 10.1x12.1cm size. She underwent right nephrectomy on 11/29/19 and has recovered well. CT scans revealed 5mm RUL lung nodule, liver hypodensity and multiplelarge AML to left kidney measuring up to 6.6 cm. Labs showed mild renal dysfunction and anemia. She denies any urinary symptoms at present. Reports occasional SOB when she gets anxious. Denies CP, palpitation. Both mom and brother have AML. 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 40 g 0 phenazopyridine 200 mg tablet Take 1 tablet by mouth 3 (three) times daily. 9 tablet 0 GIANVI, 28, 3-0.02 mg per tablet Take 1 tablet by mouth daily. 5 ondansetron 4 mg disintegrating tablet Take 1 tablet by mouth every 4 (four) hours as needed forNausea and Vomiting (N/V). 20 tablet 0 ALLERGIES Patient has no known allergies. PSYCHOSOCIAL HISTORY Social History Socioeconomic History Marital status: Single Spouse name: Not on file Number of children: 0 Years of education: Not on file Highest education level: Not on file Occupational History Occupation: disabled Social Needs Financial resource strain: Not hard at all Food insecurity: Worry: Never true Inability: Never true Transportation needs: Medical: No Non-medical: No Tobacco Use Smoking status: Never Smoker Smokeless tobacco: Never Used Substance and Sexual Activity Alcohol use: Never Frequency: Never Drug use: Not on file Sexual activity: Not on file Lifestyle Physical activity: Days per week: Not on file Minutes per session: Not on file Stress: Not on file Relationships Social connections: Talks on phone: Not on file Gets together: Not on file Attends druze service: Not on file Active member of club or organization: Not on file Attends meetings of clubs or organizations: Not on file Relationship status: Not on file Intimate partner violence: Fear of current or ex partner: Not on file Emotionally abused: Not on file Physically abused: Not on file Forced sexual activity: Not on file Other Topics Concern Not on file Social History Narrative Not on file FAMILY HISTORY Family History Problem Relation Age of Onset Other - see comments Mother angiomyolipoma Kidney failure Mother Other - see comments Brother angiomyolipoma, brain tumor MS (multiple sclerosis) Father Hypothyroidism Other Stroke Maternal Aunt [place] (myocardial infarction) Maternal Aunt REVIEW OF SYSTEMS General: - fever, - chills, -fatigue Skin: - rash, - jaundice HEENT: - change in vision, - change in hearing Neck: - dysphagia, - lumps Heme/Lymph: - easy bruising, - easy bleeding Respiratory System: + shortness of breath, - cough Cardiovascular: - chest pain, - palpitations GI: - nausea, - vomiting, +abd pain from surgery : - dysuria, - hematuria Endocrine: - heat intolerance, - cold intolerance Musculoskeletal: - myalgia, - arthralgia Neurological: - syncope, - seizures, -SHARIF, -insomnia PHYSICAL EXAM BP 115/77 | Pulse 61 | Temp 36.2 C (97.2 F) (Temporal Artery) | Resp 18 | Ht 5' 1" (1.549 m) | Wt 170 lb 14.4 oz (77.5 kg) | SpO2 100% | BMI 32.29 kg/m ECOG performance status: 0 General: oriented x 3, not in distress HEENT: anicteric sclera, PERRL, oropharynx erythematous Neck: supple, trachea ML, no goiter Lungs: clear to auscultation bilaterally, no wheezing or rhonchi Heart: regular rate and rhythm, s1s2, no gallop or murmur Abdomen: soft, round, healed vertical surgical scar noted Extremities: no edema, full ROM Neurological: no sensory or motor deficits, normal gait Lymph Nodes: no cervical adenopathy, no supraclavicular adenopathy Psych: affect appropriate, cognitively intact Skin: adequate turgor, no lesions present RADIOLOGICAL FINDINGS: CT AP 12/14/19 Interval right nephrectomy. Stable appearance of multiple large angiomyolipomas in the left kidney, possibly reflecting tuberous sclerosis. Displacement of proximal jejunal loops into the right nephrectomy bed. Some of the loops are mildly dilated, without evidence for high-grade or complete bowel obstruction. CT AP on 11/07/19 1. Several large fat-containing masses are identified within the right greater than left kidneys which appear most compatible with several large renal angiomyolipomas. The lesion on the right measures 19.6 x 16.1 x 12.0 cm. There is a nodular area of increased density within the right renal lesion which may result from an area of acute hemorrhage. CT Thorax w/ Contrast on 10/25/19 Solid 5 mm subpleural nodule within the left lower lobe and 6 mm ground glass density within peripheral right lower lobe. Attention on follow-up in 3-6 months (if history of cancer) or in 6-12 months (if no history of cancer). Redemonstration of partially visualized macroscopic fat-containing bilateral renal masses. LABORATORY FINDINGS: CBC WBC (10*3/L) Date Value 01/03/2020 7.45 RBC (10*6/L) Date Value 01/03/2020 3.83 (L) PLT (10*3/L) Date Value 01/03/2020 462 (H) HGB (g/dL) Date Value 01/03/2020 11.2 (L) HCT (%) Date Value 01/03/2020 36.1 NA (mmol/L) Date Value 01/03/2020 139 K (mmol/L) Date Value 01/03/2020 4.0 CALCIUM (mg/dL) Date Value 01/03/2020 9.9 CL (mmol/L) Date Value 01/03/2020 103 BUN (mg/dL) Date Value 01/03/2020 34 (H) CREATININE (mg/dL) Date Value 01/03/2020 1.20 (H) GLUCOSE (mg/dL) Date Value 01/03/2020 99 CO2 TOTAL (mmol/L) Date Value 01/03/2020 23 ALBUMIN (g/dL) Date Value 01/03/2020 5.0 T PROTEIN (g/dL) Date Value 01/03/2020 9.3 (H) TOTAL BILI (mg/dL) Date Value 01/03/2020 0.2 BILI UNCON (mg/dL) Date Value 01/03/2020 0.0 (L) BILI CONJ (mg/dL) Date Value 01/03/2020 0.0 ALT(SGPT) (U/L) Date Value 07/23/2019 60 (H) ALTv (U/L) Date Value 01/03/2020 12 AST(SGOT) (U/L) Date Value 01/03/2020 23 ALK PHOS (U/L) Date Value 01/03/2020 138 (H) PATHOLOGY FINDINGS: A. KIDNEY, RIGHT, RADICAL NEPHRECTOMY: - MULTIFOCAL ANGIOMYOLIPOMAS - LARGEST TUMOR: 19 CM IN GREATEST DIMENSION - TUMOR IS LIMITED TO THE KIDNEY - ALL MARGINS ARE NEGATIVE - EXTENSIVE COAGULATIVE NECROSIS OF TUMOR WITH FOREIGN BODY GIANT CELL REACTION AND NON-POLARIZABLE FOREIGN BODY MATERIAL CONSISTENT WITH HISTORY OF EMBOLIZATION ASSESSMENT AND PLAN: Kitty is a 29 year old female presents to clinic with tuberous sclerosis and angiomyolipoma (AML),s/p embolizations, right nephrectomy on 11/19/19. -Tuberous Sclerosis -Angiomyolipoma -CKD -s/p Right Nephrectomy We discussed previous findings at length and reviewed causes, clinical presentation, treatment options for AML related to tuberous sclerosis. She is not having any hematuria at present. She was on Everolimus for 2 years and reportedly tolerated the drug well. Counseled patient and sister at length that it would be reasonable to try therapy again to at least slow down the disease progression process if unable to shrink it. We discussed importance of nephrotoxic drug avoidance. She is encouraged to follow up with nephrology and genetic consults. Start Everolimus 10mg daily. Rx 30 tabs. Refill 1. Reviewed drug dose frequency side effects. Labs today. RTC in 2 months. -SOB -Lung Nodule She has 6mm lung nodule and experience some SOB. PFT and repeating CT chest w/ contrast in 10/2020 to re-evaluate. -Anemia Could be related to previous bleeding and ongoing menorrhagia. Labs today and treat accordingly. -Hx of Seizure Remains on anti-seizure. Follows neurology. Pt discussed and seen with Dr. Hassan. I have reviewed all the above information at length with the patient and answered all their questions during this visit. I spent a total of 60 minutes during this visit of which 40 minutes were devoted to face to face discussion. We carefully reviewed ER warning signs. Patient is instruct to seek medical attention if having fever >100.4F, severe N/V/D/pain, SOB, CP, palpitation. Jesika Rodriguez, MSN, AGNP Hematology and Oncology [facility] I personally saw and examined the patient with PILO Townsend in the division of hematology and oncology, in the Department of Medicine. Kindly review her note for complete details and the planof care is as directed by me. The plan was arrived after I carefully reviewed all the patient details and discussed with Jesika Rodriguez Diagnosis: Tuberous Sclerosis Complex with Seizures, pulmonary symptoms and Bilateral Angiomyolipoma. S/p resection of very large affected symptomatic kidney. Comes today to establish care Plan: Discussed role of Afinitor and she agrees. Prescription is submitted. Follow up in 2-3 months Clement Hassan MD copyright clerk Division of Hematology and Oncology aritza Jolley - 01/17/2020 9:00 AM CST Vitals: 01/17/20 0856 BP: 115/77 Pulse: 61 Resp: 18 Temp: 36.2 C (97.2 F) TempSrc: Temporal Artery SpO2: 100% Weight: 170 lb 14.4 oz (77.5 kg) Height: 5' 1" (1.549 m) Vitals taken and documented. Medication list and allergies reconciled with patient . Awake, alert and oriented x3. documented in this encounter Plan of Treatment Date Type Specialty Care Team Description 03/27/2020 Office Visit Oncology Clement Hassan Rp, M D [address] [place] [address] [phone] 04/01/2020 Office Visit Nephrology Tara Meza M D [address] [place] [address] [phone] 06/01/2020 Appointment Radiology Jania Earl, [facility] [address] [facility] [address] [place] [address] [phone] 06/04/2020 Office Visit Urology Tonya Boyle MD [address] [address] [phone] 11/30/2020 Appointment Radiology Jania Earl, [facility] [address] [facility] [address] [place] [address] [phone] Name Type Priority Associated Diagnoses Order S chedule DIAGNOSTIC PULMONARY FUNCTION Routine Angiomyolipoma of both Ordered: PROCEDURE Preferred LAB kidneys 01/17/2020 Location: [facility] Tuberous scleros is SOB (shortness of breath) CT thorax without IMAGING Routine Angiomyolipoma of both Expected: contrast kidneys 10/13/2020, Status post neph rectomy Expires: Pulmonary nodule s 01/16/2021 Tuberous scleros is SOB (shortness of breath) Health Maintenance Due Date Last Done Comments VARICELLA VACCINES (1 of 2 - 1991 2-dose childhood series) DTaP,Tdap,and Td Vaccines (1 - 2001 Tdap) PAP SMEAR 2011 INFLUENZA VACCINE Completed 10/01/2019 PNEUMOCOCCAL 0-64 YEARS COMBINED Aged Out No longer eligible based on SERIES patient's age to complete this topic documented as of this encounter Implants Implanted Type Area Jde Developer Device Shelf Model / Identifier Expiration Date Ser ial / Lot Mynx Right: Arrow 07/13/2021 [id number] / Implanted: Qty: 1 on 09/27/2019 at [facility] Groin [id number] / [id number] documented as of this encounter Results FOLATE (01/17/2020 10:51 AM COUNTER TENDER) Pathologist Sig nature FOLATE SER 8.8 3.0 - 20.0 ng/mL [facility] Specimen Blood Performing Organization Address City/[facility]/Zipcode Phone Number [facility] CLIA: [id number], [address] [place] [address] [facility] VITAMIN B12, LEVEL (01/17/2020 10:51 AM COUNTER TENDER) Pathologist [facility] nature VIT B12 287 240 - 930 pg/mL [facility] Specimen Blood Narrative Performed At Biotin has been reported to cause a positive bias, int erpret [facility] results relative to patient's use of biotin. Performing Organization Address City/State/Zipcode Phone Number [facility] CLIA: [id number], [address] [place] [address] [facility] TOTAL IRON BINDING CAPACITY (01/17/2020 10:51 AM COUNTER TENDER) Pathologist Sig nature TIBC 328 250 - 410 ug/dL [facility] Specimen Blood Performing Organization Address City/[facility]/Zipcode Phone Number [facility] CLIA: [id number], [address] [place] [address] [facility] FERRITIN SERUM (01/17/2020 10:51 AM COUNTER TENDER) Pathologist Sig nature FERRITIN 16.5 6.0 - 137.0 ng/mL [facility] S Specimen Blood Narrative Performed At [facility] has been reported to cause a negative bias, int erpret [facility] results relative to patient's use of biotin. Performing Organization Address City/State/Zipcode Phone Number [facility] CLIA: [id number], [address] [place], [place] [address] [facility] COMP. METABOLIC PANEL (31112) (01/17/2020 10:51 AM COUNTER TENDER) NA 137 135 - 145 [facility] mmol/L SERVICES K 4.9 3.5 - 5.0 [facility] mmol/L SERVICES CL 101 98 - 108 mmol/L [facility] CO2 TOTAL 28 23 - 31 mmol/L [facility] AGAP 8 2 - 16 [facility] BUN 24 (H) 7 - 23 mg/dL [facility] GLUCOSE 93 70 - 110 mg/dL [facility] CREATININE 1.21 (H) 0.50 - 1.04 [facility] mg/dL SERVICES TOTAL BILI <0.1 (L) 0.1 - 1.1 mg/dL [facility] CALCIUM 9.7 8.6 - 10.6 [facility] mg/dL SERVICES T PROTEIN 8.1 6.3 - 8.2 g/dL [facility] ALBUMIN 4.0 3.5 - 5.0 g/dL [facility] ALK PHOS 132 (H) 34 - 122 U/L [facility] ALTv 13 5 - 35 U/L [facility] AST(SGOT) 24 13 - 40 U/L [facility] eGFR Calculation 52.6 mL/min/1.73m2 [facility] (Non- SERVICES Nepalese) eGFR Calculation 63.8 mL/min/1.73m2 [facility] () SERVICES Specimen Blood Narrative Performed At Association of Glomerular Filtration Rate (GFR) and St aging [facility] of Kidney Disease* + + +------- ------ + | GFR (mL/min/1.73 m2) | With Kidney Damage | Wi thout Kidney Damage + + +------- ------ + | >90 | Stage one | Normal + + +------- ------ + | 60-89 | Stage two | Decreased GFR + + +------- ------ + | 30-59 | Stage three | Stage three + + +------- ------ + | 15-29 | Stage four | Stage four + + +------- ------ + | <15 (or dialysis) | Stage five | Stage five + + +------- ------ + *Each stage assumes the associated GFR level has been in effect for at least three months. Stages 1 to 5, wit h or without kidney disease, indicate chronic kidney disease. Notes: Determination of stages one and two (with eGFR >59mL/min/1.73 m2) requires estimation of kidney damag e for at least three months as defined by structural or func tional abnormalities of the kidney, manifested by either: Pathological abnormalities or Markers of kidney damage (including abnormalities in the composition of the blo od or urine or abnormalities in imaging tests) . Performing Organization Address City/State/Zipcode Phone Number [facility] CLIA: [id number], [address] [place], [place] [address] [facility] documented in this encounter Visit Diagnoses Diagnosis Angiomyolipoma of both kidneys - Primary Status post nephrectomy Pulmonary nodules Other nonspecific abnormal finding of hao ng field Anemia, unspecified type Tuberous sclerosis SOB (shortness of breath) Shortness of breath documented in this encounter Insurance Payer Benefit Plan / Subscriber ID Effective Phone Address T e Group Dates TOBIN RUDD xxxxxxxxx 2015-Caitlyn MARC Medic aid HEALTHCARE - [facility] [id number] MANAGED MEDICAID [place], MEDICAID [place] ([place]) [place] [address] documented as of this encounter
--- OUTSIDE RECORDS SUMMARY | 2020-04-13 19:33 | XMS REPORT | Summary of Care ---
:1990 Author Organization [facility] [[email or web address]] - [facility] Address [address] [place] [address] Care Team Providers Name Role Phone Corrine Bates Primary Care Provider Reason for Visit Reason Comments LAB WORK Encounter Details Date Type Department Care Team Description 01/17/2020 Academic Support Coordinator Visit ANCILLARY LABS Clement Hassan Rp, MD [address] [place] [id number] Angiomyolipoma of both kidneys; [facility] Status post nephrectomy; Pulmonary nodul es; Anemia, unspeci fied type Allergies No Known Allergiesdocumented as of this encounter (statuses as of 01/17/2020) Medications Medication Sig Dispensed Refills Start Date [...] by mouth. 0 Active 5 mg Tab traMADOL 50 mg Take [...] fluticasone 50 USE 1 SPRAY 3 10/28/2018 Ac tive mcg/actuation nasal INTRANASALLY ONCE spray A DAY gabapentin 100 mg Take 1 capsule by 90 capsule 0 01/17/2019 Active capsuleIndications: mouth 3 (three) Tuberous sclerosis, times daily. Angiomyolipoma of both kidneys, Left flank pain ondansetron 4 mg Take 1 tablet by 20 tablet 0 04/22/2019 Active disintegrating mouth every 4 tabletIndications: (four) hours as Flank pain, Tuberous needed for Nausea sclerosis and Vomiting (N/V). acetaminophen Take 2 tablets by 60 tablet 1 10/01/2019 02 Active (TYLENOL) 325 mg mouth every 6 0 tabletIndications: (six) hours as Generalized abdominal needed for Pain pain (scale 4-6). gabapentin 300 mg Take 1 capsule by 90 capsule 1 10/17/2019 Active capsule mouth 3 (three) times daily. phenazopyridine 200 Take 1 tablet by 9 tablet 0 11/07/2019 Active mg tabletIndications: mouth 3 (three) Dysuria, Feeling of times daily. incomplete bladder emptying, Angiomyolipoma of both kidneys, Anemia, unspecified type acetaminophen Take 2 tablets by 60 tablet 1 11/20/2019 02 Active (TYLENOL) 325 mg mouth every 6 1 tabletIndications: (six) hours as Angiomyolipoma of needed for Pain both kidneys (scale 4-6). docusate 100 mg Take 1 capsule by 30 capsule 0 11/20/2019 Active capsuleIndications: mouth daily. Angiomyolipoma of both kidneys clindamycin 2 % Insert 1 40 g 0 01/04/2020 Act ric creamIndications: Applicator into Dysuria, Yeast vagina at bedtime. vaginitis documented as of this encounter (statuses as of 01/17/2020) Active Problems Problem Noted Date Status post nephrectomy 12/05/2019 Pulmonary nodules 12/05/2019 Renal mass 10/02/2019 Overview: Added automatically from request for luz maria vel [id number] 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 Overview: Added automatically from request for luz maria crowder [id number] Obesity (BMI 30-39.9) 09/27/2019 Mass of right [...] Visit Oncology Clement Hassan Rp, M D [address] [place] [address] 04/01/2020 Office Visit Nephrology Tara Meza M D [address] [place] [address] [phone] 06/01/2020 Appointment Radiology Jania Earl, ENGINEERING TECHNICIAN PARKING [address] [facility] [address] [place] [address] [phone] 06/04/2020 Office Visit Urology Tonya Boyle MD [address] [place], [place] [address] [phone] 11/30/2020 Appointment Radiology Jania Earl, ENGINEERING TECHNICIAN PARKING [address] [facility] [address] [place] [address] [phone] Name Type Priority Associated Diagnoses Date/Ti me CBC WITH DIFF LAB Routine Angiomyolipoma of both 04/2020 10:51 AM kidneys CHIEF AIRPORT GUIDE Status post neph rectomy Pulmonary nodules COMP. METABOLIC PANEL LAB Routine Angiomyolipoma of b [facility] 01/17/2020 10:51 AM ([id number]) kidneys CHIEF AIRPORT GUIDE Status post neph rectomy Pulmonary nodules FERRITIN SERUM LAB Routine Angiomyolipoma of both 04/2020 10:51 AM kidneys CHIEF AIRPORT GUIDE Status post neph rectomy Pulmonary nodule s Anemia, unspecified type TOTAL IRON BINDING LAB Routine Angiomyolipoma of both 01/17/2020 10:51 AM CAPACITY kidneys CHIEF AIRPORT GUIDE Status post neph rectomy Pulmonary nodule s Anemia, unspecified type VITAMIN B12, LEVEL LAB Routine Angiomyolipoma of both 01/17/2020 10:51 AM kidneys CHIEF AIRPORT GUIDE Status post neph rectomy Pulmonary nodule s Anemia, unspecified type FOLATE LAB Routine Angiomyolipoma of both 01/16 10:51 AM kidneys CHIEF AIRPORT GUIDE Status post neph rectomy Pulmonary nodule s Anemia, unspecified type CBC WITH DIFFERENTIAL LAB Routine Angiomyolipoma of b [facility] 01/17/2020 10:51 AM kidneys CHIEF AIRPORT GUIDE Status post neph rectomy Pulmonary nodules Health Maintenance Due Date Last Done Comments VARICELLA VACCINES (1 of 2 - 1991 2-dose childhood series) DTaP,Tdap,and Td Vaccines (1 - 2001 Tdap) PAP SMEAR 2011 INFLUENZA VACCINE Completed 10/01/2019 PNEUMOCOCCAL 0-64 YEARS COMBINED Aged Out No longer eligible based on SERIES patient's age to complete this topic documented as of this encounter Implants Implanted Type Area Rn Teacher Device Shelf Model / Identifier Expiration Date Ser ial / Lot Mynx Right: Arrow 07/13/2021 [id number] / Implanted: Qty: 1 on 09/27/[address] [facility] Groin [id number] / [id number] documented as of this encounter Results Not on filedocumented in this encounter Visit Diagnoses Diagnosis 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 Pulmonary nodules Other nonspecific abnormal finding of hao ng field Anemia, unspecified type documented in this encounter Insurance Payer Benefit Plan / Subscriber ID Effective Phone Address T ype Group Dates TOBIN RUDD xxxxxxxxx 2015-Caitlyn P O BOX Medic [facility] [address] MANAGED MEDICAID [place] documented as of this encounter
--- OUTSIDE RECORDS SUMMARY | 2020-04-13 19:33 | XMS REPORT | Summary of Care ---
:1990 Author Organization [facility] Address [address] [place] [address] Care Team Providers Name Role Phone Corrine Bates Primary Care Provider Reason for Referral MRI/CAT Scan (Routine) Status Reason Specialty Diagnoses / Referred By Referred To Procedures Contact Contact New Request Diagnostic Diagnoses 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 Pulmonary nodules Tuberous sclerosis SOB (shortness of breath) Jesika Rodriguez NP Radiology Procedures CT thorax without contrast [address] [place] [address] (Routine) Status Reason Specialty Diagnoses / Referred By Referred To Procedures Contact Contact New Request Pulmonary Function Diagnoses Angiomyolipoma of both kidneys Pulmonary nodules Tuberous sclerosis SOB (shortness of breath) Jesika Rodriguez NP Technologist Procedures DIAGNOSTIC PROCEDURE Preferred Location: [facility] [address] [place] [address] Reason for Visit Reason Comments New Patient Cancer (Routine) Status Reason Specialty Diagnoses / Referred By Referred To Procedures Contact Contact New Request Oncology Diagnoses 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 Leila Earl Procedures CONSULT/REFERRAL MEDICAL ONCOLOGY N, MARKETING PROJECT LEAD [address] [facility] [address] [place] [address] Encounter Details Date Type Department Care Team Description 01/17/2020 Office Visit [facility] SonyaClement Rp, M D Angiomyolipoma of both kidneys (Primary Dx); Hematology-Oncology [address] [address] Status post nephrectomy; [place] [address] Pulmonary nodules; [address] [phone] Anemia, unspecified type; Drive Tuberous sclerosis; [facility] SOB (shortness of breath) Building, [address] [place] [address] Allergies No Known Allergiesdocumented as [...] automatically from request for luz maria vel [id number] 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 Overview: Added automatically from request for luz maria vel [id number] Obesity (BMI 30-39.9) 09/27/2019 Mass of right [...] Comments Blood Pressure 115/77 01/17/2020 8:56 AM WELDING ROD COATER Pulse 61 01/17/2020 8:56 AM WELDING ROD COATER Temperature 36.2 C (97.2 F) 01/17/2020 8:56 AM WELDING ROD COATER Respiratory Rate 18 01/17/2020 8:56 AM WELDING ROD COATER Oxygen Saturation 100% 01/17/2020 8:56 AM WELDING ROD COATER Inhaled Oxygen Concentration - - Weight 77.5 kg (170 lb 14.4 oz) 01/17/2020 8:56 AM WELDING ROD COATER Height 154.9 cm (5' 1") 01/17/2020 8:56 AM WELDING ROD COATER Body Mass Index 32.29 01/17/2020 8:56 AM WELDING ROD COATER documented in this encounter Patient Instructions Patient InstructionsLyssa Gordon LVN - 01/17/2020 9:00 AM WELDING ROD COATER Everolimus tablets Brand Names: Afinitor, Zortress What [...] information carefully each time. Talk to your commercial electrician regarding the use of this medicine in children. Special care may be needed. What side effects may I notice from receiving this medicine? Side effects that you should report to your doctor or health director of healthcare systems as soon as possible: allergic reactions like [...] attention (report to your doctor or health director of healthcare systems if they continue or are bothersome): constipation [...] to stop. Visit your doctor or health director of healthcare systems for regular check-ups. You may need regular tests to monitor possible side effects of the drug. This medicine may affect blood sugar levels. If you have diabetes, check with your doctor or health director of healthcare systems before you change your diet or the dose of your diabetic medicine. Do not become while taking this medicine or for 8 weeks after stopping it. Women should inform their doctor if they wish to become or think they might be . There is a potential for serious side effects to an unborn child. Talk to your health director of healthcare systems or pharmacist for more information. Do not breast-feed an infant while taking this medicine or for 2 weeks after stopping it. This medicine has caused ovarian failure in some women. This medicine may interfere with the abilityto have a child. You should talk with your doctor or health director of healthcare systems if you are concerned about your fertility. This medicine has caused reduced sperm counts in some men. This may interfere with the ability to father a child. You should talk to your doctor or health director of healthcare systems if you are concerned about your fertility. Call your doctor or health director of healthcare systems for advice if you get a fever, chills or sore throat, or other symptoms of a cold or flu. Do not treat yourself. This drug decreases your body's ability to fight infections. Try to avoid being around people who are sick. This medicine may increase your risk to bruise or bleed. Call your doctor or health director of healthcare systems if you notice any unusual bleeding. If [...] pharmacist, or health care provider. Copyright 2018 [employer] documented in this encounter Progress Notes Clement Hassan Rp, MD - 01/17/2020 9:00 AM CST [facility] HEMATOLOGY/ONCOLOGY CLINIC VISIT TYPE: Consultation, [facility] (Internal) requested by Dr Bates/ History [...] Most medical information obtained from sister/medical powerof real estate attorney Kacy. Hx of Tuberous Sclerosis [...] file Gets together: Not on file Attends spiritism service: Not on file Active member of [...] sclerosis) Father Hypothyroidism Other Stroke Maternal Aunt [place] (myocardial infarction) Maternal Aunt REVIEW OF SYSTEMS [...] Jesika Rodriguez, MSN, AGNP Hematology and Oncology [facility] I personally saw and examined the [...] up in 2-3 months Clement Hassan MD cancellation clerk Division of Hematology and Oncology aritza [...] Visit Oncology Clement Hassan Rp, M D [address] [place] [address] 555 04/01/2020 Office Visit Nephrology Tara Meza M D [address] [place] [address] [phone] 06/01/2020 Appointment Radiology Jania Earl, [facility] [address] [facility] [address] [place] [address] [phone] 06/04/2020 Office Visit Urology Tonya Boyle MD [address] [address] [phone] 11/30/2020 Appointment Radiology Jania Earl, [facility] [address] [facility] [address] [place] [address] [phone] Name Type Priority Associated Diagnoses Order S chedule DIAGNOSTIC PULMONARY FUNCTION Routine Angiomyolipoma of both Ordered: PROCEDURE Preferred LAB kidneys 01/17/2020 Location: [facility] no dules PFT Lab Tuberous scleros [...] of this encounter Implants Implanted Type Area Victims Advocate Clerk/Specialist Device Shelf Model / Identifier Expiration Date Ser ial / Lot Mynx Right: Arrow 07/13/2021 [id number] / Implanted: Qty: 1 on 09/27/2019 at [facility] Groin [id number] / [id number] documented as of this encounter Results FOLATE (01/17/2020 10:51 AM WELDING ROD COATER) Pathologist Sig nature FOLATE SER 8.8 3.0 - 20.0 ng/mL [facility] Specimen Blood Performing Organization Address City/[facility]/Zipcode Phone Number [facility] CLIA: [id number], [address] [place] [address] [facility] VITAMIN B12, LEVEL (01/17/2020 10:51 AM WELDING ROD COATER) Pathologist [facility] nature VIT B12 287 240 - 930 pg/mL [facility] Specimen Blood Narrative Performed At Biotin has been reported to cause a positive bias, int erpret [facility] results relative to patient's use of biotin. Performing Organization Address City/State/Zipcode Phone Number [facility] CLIA: [id number], [address] [place] [address] 555 [facility] TOTAL IRON BINDING CAPACITY (01/17/2020 10:51 AM WELDING ROD COATER) Pathologist Sig nature TIBC 328 250 - 410 ug/dL [facility] Specimen Blood Performing Organization Address City/[facility]/Zipcode Phone Number [facility] CLIA: [id number], [address] [place] [address] 555 [facility] FERRITIN SERUM (01/17/2020 10:51 AM WELDING ROD COATER) Pathologist Sig nature FERRITIN 16.5 6.0 - 137.0 ng/mL [facility] S Specimen Blood Narrative Performed At [facility] has been reported to cause a negative bias, int erpret [facility] results relative to patient's use of biotin. Performing Organization Address City/State/Zipcode Phone Number [facility] CLIA: [id number], [address] [place], [place] [address] [facility] COMP. METABOLIC PANEL (23032) (01/17/2020 10:51 AM WELDING ROD COATER) NA 137 135 - 145 [facility] mmol/L SERVICES K 4.9 3.5 - 5.0 [facility] mmol/L SERVICES CL 101 98 - 108 mmol/L [facility] CO2 TOTAL 28 23 - 31 mmol/L [facility] AGAP 8 2 - 16 [facility] BUN 24 (H) 7 - 23 mg/dL [facility] GLUCOSE 93 70 - 110 mg/dL [facility] CREATININE 1.21 (H) 0.50 - 1.04 [facility] mg/dL SERVICES TOTAL BILI <0.1 (L) 0.1 - 1.1 mg/dL [facility] CALCIUM 9.7 8.6 - 10.6 [facility] mg/dL SERVICES T PROTEIN 8.1 6.3 - 8.2 g/dL [facility] ALBUMIN 4.0 3.5 - 5.0 g/dL [facility] ALK PHOS 132 (H) 34 - 122 U/L [facility] ALTv 13 5 - 35 U/L [facility] AST(SGOT) 24 13 - 40 U/L [facility] eGFR Calculation 52.6 mL/min/1.73m2 [facility] (Non- SERVICES Ethiopian) eGFR Calculation 63.8 mL/min/1.73m2 [facility] () SERVICES Specimen Blood Narrative Performed At Association of Glomerular Filtration Rate (GFR) and St aging [facility] of Kidney Disease* + [...] . Performing Organization Address City/State/Zipcode Phone Number [facility] CLIA: [id number], [address] [place], [place] [address] [facility] documented in this encounter Visit Diagnoses Diagnosis [...] xxxxxxxxx 2015-Caitlyn MARC Medic aid HEALTHCARE - [facility] [address] MANAGED MEDICAID [place], [place]ICAID [place] ([place]) [place] [address] documented as of this encounter
--- OUTSIDE RECORDS SUMMARY | 2020-04-13 19:33 | XMS REPORT | Summary of Care ---
:1990 Author Organization [facility] Address [address] [place] [id number] Care Team Providers Name Role Phone Corrine Bates Primary Care Provider Reason for Visit Reason Comments Orders Encounter Details Date Type Department Care Team Description 01/20/[address] [facility] Clement Hassan Rp, M D Orders Hematology-Oncology - [address] [place] [id number] [facility] [phone] [facility], [address] [phone] ( Fax) [phone] [place] [address] Allergies No Known Allergiesdocumented as of this encounter (statuses as of 01/20/2020) Medications Medication Sig Dispensed Refills Start End Date Status Date escitalopram oxalate Take 20 mg by 0 [...] 9 tabletIndications: (four) hours as Flank pain, Tuberous needed for sclerosis Nausea and Vomiting (N/V). acetaminophen Take 2 tablets 60 tablet 1 09/30/20 A ctive (TYLENOL) 325 mg by mouth every 6 9 20 tabletIndications: (six) hours as Generalized needed for [...] acetaminophen Take 2 tablets 60 tablet 1 11/19/19 A ctive (TYLENOL) 325 mg by mouth every 6 0 21 tabletIndications: (six) hours as Angiomyolipoma of needed [...] 5 Ac tive (AFINITOR) 10 mg mouth daily. 0 tabletIndications: Angiomyolipoma of both kidneys, Tuberous sclerosis Everolimus Take 1 tablet by 30 tablet 5 01/20/20 Di scontinued (AFINITOR) 10 mg mouth daily for 0 20 tabletIndications: 180 days. Angiomyolipoma of both kidneys, Tuberous sclerosis documented as of this encounter (statuses as of 01/20/2020) Active Problems Problem Noted Date Status post nephrectomy 12/05/2019 Pulmonary nodules 12/05/2019 Renal mass 10/02/2019 Overview: Added automatically from request for luz maria vel [id number] 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 Overview: Added automatically from request for luz maria vel [id number] Obesity (BMI 30-39.9) 09/27/2019 Mass of right kidney 09/26/2019 documented as of this encounter (statuses as of 01/20/2020) Immunizations Name Administration Dates Next Due Influenza [...] Oncology Clement Hassan Rp, M D [address] [phone] 04/01/2020 Office Visit Nephrology Tara Meza M D [address] [address] [phone] 06/01/2020 Appointment Radiology Jania Earl, OVERHEAD GARAGE DOOR HANGER [address] [facility] [address] [place], [place] [address] 06/04/2020 Office Visit Urology Tonya Boyle MD [address] [place] [address] [phone] 11/30/2020 Appointment Radiology Jania Earl, OVERHEAD GARAGE DOOR HANGER [address] [facility] [address] [place] [address] [phone] Health Maintenance Due Date Last Done Comments VARICELLA VACCINES (1 of 2 - 1991 2-dose childhood series) DTaP,Tdap,and Td Vaccines (1 - 2001 Tdap) PAP SMEAR 2011 INFLUENZA VACCINE Completed 10/01/2019 PNEUMOCOCCAL 0-64 YEARS COMBINED Aged Out No longer eligible based on SERIES patient's age to complete this topic documented as of this encounter Implants Implanted Type Area Posting Specialist Device Shelf Model / Identifier Expiration Date Ser ial / Lot Mynx Right: Arrow 07/13/2021 [id number] / Implanted: Qty: 1 on 09/27/2019 at [facility] Aubrey [id number] / [id number] documented as of this encounter Results Not on filedocumented in this encounter Visit Diagnoses Diagnosis Angiomyolipoma of both kidneys Tuberous sclerosis documented in this encounter Insurance Payer Benefit Plan / Subscriber ID Effective Phone Address [facility] Group Dates TOBIN RUDD xxxxxxxxx 2015-Caitlyn MARC Medic [place] [id number] MANAGED MEDICA[place] documented as of this encounter
--- OUTSIDE RECORDS SUMMARY | 2020-04-13 19:33 | XMS REPORT | Continuity of Care Document ---
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 [place] [facility] Mental Mental Problem Active [facility] retardatio retardatio HL7.CCDAR2 ity of n n [place] [facility] Angiomyoli Angiomyoli Problem Active U nivers guevara of guevar[place] of HL7.CCDAR2 ity of kidney kidney [place] [facility] 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 ity of [place] [facility] Localz-rlt Localz-rlt Problem Active U nivers d d HL7.CCDAR2 [place] of symptom[place] epilepsy c epilepsy Ph ysici w complx w complx ans part sz, part sz, notintrac, notintrac, w status w status Angiomyoli Angiomyoli Problem Active [facility] guevara of guevara of [facility] - left left [facility]oria kidney kidney l [facility]izures Seizures [facility] Depression Depression Problem Active [facility] with with [facility] - anxiety anxiety Memoria l [facility] 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[facility] 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 [facility] - addiction addiction Erasmo idania l [facility] Seizure Seizure Problem Active [facility] disorder disorder [facility] 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 [facility] - of kidney of kidney Erasmo idania l [facility] BCP ( BCP ( Problem Active C [facility] control control [facility] - pills) pills) Memoria initiation initiation l [facility] Back pain Back pain Problem Active [facility] Obesity Obesity Problem Active [facility] Insomnia Insomnia Problem Active [facility] 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 Luke s - Memoria l [facility] 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[facility] mental mental [facility] - retardatio retardatio Me moria n n l [facility] Gastroesop Gastroesop Diagnosis Active [facility] hageal hageal [facility] - reflux reflux Memoria disease disease l without without Outpati esophagiti esophagiti en t s s Clinics Uses Uses Problem Active C [facility] control control [facility] - Memoria l [facility] Onychomyco Onychomyco Problem Active C [facility] sis sis [facility] Panic Panic Problem Active [facility] attacks attacks [facility] Seasonal Seasonal Problem Active [facility] allergies allergies Luke s - Memoria l [facility] Exposure Exposure Problem Active [facility] to to [facility] - sexually sexually Memori a transmitte transmitte l d disease d disease Outp ati (STD) (STD) ent Clinics Acne Acne Problem Active [facility] rosacea rosacea [facility] Vaginal Vaginal Diagnosis Active [facility] yeast yeast [facility] - infection infection Erasmo idania l [facility] Uses Uses Diagnosis Active [facility] control control [facility] - Memoria l [facility] Diagnosis Active [facility] control control [facility] - counseling counseling Ak justinoa l [facility] Allergies, Adverse Reactions, Alerts This patient has no known allergies or adverse reactions. Social History Smoking Status Start Date Stop Date Source Never smoker [facility] Physicians Medications Ordered Filled Start Stop Current Ordering Indication Dosage Frequency Signature Comments Components Source Medication Medication Date Date Medication? Clinician (SIG) Name Name Fluconazole Fluconazole 2019-0 2020- Yes Na Bates [address] [facility] [address] 3-04 03-05 [facility] - 00:00: 00:00 Memoria 00 :00 [facility] Clonazepam Clonazepam 2018-11 Yes Na Bates [address] 2-16 on the [facility] - 00:00: tongue and Memoria 00 allow to l dissolve [facility] needed ent for acute Clinics panic attacks Afinitor 5 Afinitor 5 Yes ALFREDO TAKE 1 Univers MG Oral MG Oral 8-22 EUGENE TABLET BY i ty of Tablet Tablet 14:39: M.D. MOUTH [place] 34 DAILY Physici ans LamoTRIgine LamoTRIgine 2014-11 Yes ALONZO WAGNER Q0.5D TAKE 1 Univers 100 MG Oral 100 MG Oral 0-13 CHRISTIAN TABLET ity of Tablet Tablet 00:00: M.D. TWICE [place] 00 DAILY Physici ans Seroquel Seroquel Yes Na Bates [address] [facility] Lamictal Lamictal Yes Na Bates [address] [facility] Pantoprazol Pantoprazol Yes Na Bates [address] e Sodium e Sodium [facility] Ondansetron Ondansetron Yes Na Bates as [facility] HCl HCl directed [facility] Lexapro Lexapro Yes Na Bates [address] [facility] Afinitor Afinitor Yes Na Bates [address] [facility] Hunter Harrison Yes Na Bates [address] [facility] Cetirizine Cetirizine 2019- No Na Bates take [address] [facility] HCl HCl 06-13 tablet by [facility]ukes - 00:00 mouth Memoria :00 every day l as needed Outpati for ent allergies Clinics Immunizations Ordered Filled Immunization Date Status Comments Sourc e Immunization Name Name Afluria single dose Afluria single dose 2019-08-[address] [facility] - 00:00:00 [facility] Flucelvax - single Flucelvax - single 2018-10-[address] [facility] - dose syringe dose syringe 00:00:00 [facility] Vital Signs Vital Name Observation Time Observation Value Comments Source BP Systolic 2018-05-01 10:10:00 109 mm[Hg] [facility] Physician s BP Diastolic 2018-05-01 10:10:00 76 mm[Hg] [facility] Physician s Height 2018-05-01 10:10:00 154 cm [facility] Physician s Weight 2018-05-01 10:10:00 67.7 kg [facility] Physician s Body Mass Index 2018-05-01 10:10:00 28.55 kg/m2 [facility] Physician s Temperature 2018-05-01 10:10:00 96.5 [degF] [facility] Physician s Heart Rate 2018-05-01 10:10:00 91 /min [facility] Physician s Head Circumference 2018-05-01 10:10:00 54.7 [facility] Procedure Date / Time Performing Clinician Source Performed EKG w/Rhythm Strip 2018-04-17 00:00:00 [facility] Physicians [QLH] CBC (INCLUDES 2018-04-17 00:00:00 [facility] DIFF/PLT) Physicians [QLH] CMP W/EGFR 2018-04-17 00:00:00 [facility] Physicians [Q] EVEROLIMUS, BLOOD 2018-04-17 00:00:00 [facility] Physicians [QLH] LIPID PANEL 2018-04-17 00:00:00 [facility] Physicians [QLH] PHOSPHATE ( 2018-04-17 00:00:00 [facility] PHOSPHORUS) Physicians [QLH] PTH, INTACT 2018-04-17 00:00:00 [facility] (WITHOUT CALCIUM) Physicians [QLH] LAMOTRIGINE 2018-04-17 00:00:00 [facility] Physicians MRI Brain w/wo contrast 2018-04-17 00:00:[facility] [id number] Abdomen w/wo 2018-04-17 00:00:00 [facility] [place] contrast [id number] Physicians Encounters Start End Encounter Admission Attending Care Care Encounter Source Date/Time Date/Time Type Type Clinicians Facility Department ID 2020-04-02 2020-04-02 Telephone Clement Hassan CINDY [id number] 00:00:00 00:00:00 Rp H [id number] BUILDING [id number] [id number] 2020-04-01 2020-04-01 [facility] [id number] 08:16:39 09:16:39 ne Visit Tara [id number] [facility] 4.2.7.2.686 [place] [id number] AND YEE [facility] 2020-03-27 2020-03-27 Telemedici Clement Hassan CINDY [id number] 07:50:37 08:10:37 ne Visit Rp H [id number] [facility] [id number] [id number] 2020-03-26 2020-03-26 Telephone Derrick [facility] [id number] 00:00:00 00:00:00 Tara MULTISPEC [id number] IALTY 4.2.7.2.686 [place] [id number] AND YEE [facility] 2020-03-18 2020-03-18 Telephone Jesika Rodriguez 1.2.840.114 [id number] 00:00:00 00:00:00 Y HEALTH [id number] [facility] 4.2.7.2.686 [id number] 2020-03-17 2020-03-17 Telephone Jesika Rodriguez 1.2.840.114 [id number] 00:00:00 00:00:00 Y HEALTH [id number] CLINICS 4.2.7.2.686 [id number] 2020-02-24 2020-02-24 Telephone Jesika Rodriguez 1.2.840.114 [id number] 00:00:00 00:00:00 Y HEALTH 350.1.13.10 CLINICS 4.2.7.2.686 [id number] 2020-02-17 2020-02-17 Telephone Jesika Rodriguez [facility] [id number] 00:00:00 00:00:00 Y HEALTH [id number] CLINICS 4.2.7.2.686 [id number] 2020-01-27 2020-01-27 Telephone Jesika Rodriguez NORISRAMSESBRIDGETTE 1.2.840.114 [id number] 00:00:00 00:00:00 H 350.1.13.10 BUILDING 4.2.7.2.686 [id number] 2020-01-24 2020-01-24 Telephone Jesika Rodriguez [facility] 1.2.840.114 [id number] 00:00:00 00:00:00 Y HEALTH 350.1.13.10 [facility] 4.2.7.2.686 [id number] 2020-01-24 2020-01-24 Telephone Jesika Rodriguez [facility] 1.2.840.114 [id number] 00:00:00 00:00:00 Y HEALTH 350.1.13.10 [facility] 4.2.7.2.686 [id number] 2020-01-20 2020-01-20 Telephone Clement HassanBRIDGETTE 1.2.840.114 [id number] 00:00:00 00:00:00 Rp H 350.1.13.10 BUILDING 4.2.7.2.686 [id number] 2020-01-20 2020-01-20 Orders Doctor PAOLA 1.2.840.114 [id number] 00:00:00 00:00:00 Only Unassigned, RISSA 350.1.13.10 [facility] 4.2.7.2.686 [id number] 2020-01-17 2020-01-17 Office Clement HassanDONTAFidel 1.2.840.114 [id number] 08:44:32 10:16:47 Visit Rp H 350.1.13.10 BUILDING 4.2.7.2.686 [id number] 2020-01-15 2020-01-15 [facility] [id number] [facility] 12:20:00 12:20:00 [place] Vi[place]ee Luke s - Drive [facility] [place] [facility] Outpati ent Clinics 2020-01-08 2020-01-08 [facility] [id number] 08:53:00 08:53:00 [place] ViSSee Luke s - Drive [facility] [place] [facility] Medicine Outpati ent Clinics 2019-10-28 2019-10-28 [facility] [id number] 09:40:00 09:40:00 t [place] ViSSee LuZvooq s - Drive [facility] [place] [facility] Medicine Outpati ent Clinics 2019-09-03 2019-09-03 [facility] [id number] 16:57:00 16:57:00 t [place] Produce Run s - Drive [facility] [place] [facility] Medicine Outpati ent Clinics 2019-08-27 2019-08-27 [facility] [id number] 08:40:00 08:40:00 t [place] ViSSee LuZvooq s - Drive [facility] Medicine Outpati ent Clinics 2019-08-22 2019-08-22 [facility] [id number] 09:20:00 09:20:00 t [place] RAP Index s - Drive [facility] Medicine Outpati ent Clinics 2019-08-05 2019-08-05 [facility] [id number] 16:00:00 16:00:00 t [place] IntenseDebate LuZvooq s - Drive [facility] [place] [facility] Medicine Outpati ent Clinics 2019-03-01 2019-03-01 [facility] [id number] 09:40:00 09:40:00 t [place] Produce Run s - Drive [facility] [place] [facility] Medicine Outpati ent Clinics 2019-01-25 2019-01-25 [facility] [id number] 09:30:00 09:30:00 t [place] ViSSee LuZvooq s - Drive [facility] [place] [facility] Medicine Outpati ent Clinics 2018-10-26 2018-10-26 [facility] [id number] 09:30:00 09:30:00 t [facility] 2018-07-27 2018-07-27 [facility] [id number] 10:15:00 10:15:00 t [facility] 2018-05-01 2018-05-01 AppointCHRISTINE [facility] [id number] Univers 09:15:00 09:15:00 t; ALFREDO, Division of it y ike EUGENE M.D. [facility] Trace FUENTES M.D. ans 2018-05-01 2018-05-01 AppointCHRISTINE Junior [facility] [id number] Univers 08:45:00 08:45:00 t; ALONZO GONZALES, Division of ity of ALONZO WAGNER M.D. [facility] [employer] Physici ans 2018-04-27 2018-04-27 [facility] [id number] 10:15:00 10:15:00 t [facility] 2017-05-08 2017-05-08 CHRISTINE Dorman [facility] [id number] Univers 09:00:00 09:00:00 t; Meghan FUENTES M.D. [place] Bernice FUENTES M.D. ans 2017-02-28 2017-02-28 CHRISTINE Dorman [facility] [id number] Univers 09:45:00 09:45:00 t; Meghan FUENTES M.D. [place] Bernice FUENTES M.D. ans 2017-02-28 2017-02-28 AppointCHRISTINE Junior [facility] [id number] Univers 09:45:00 09:45:00 t; ALONZO GONZALES i maddy of ALONZO WAGNER M.D. [place] Reji Physici ans 2017-02-28 2017-02-28 CHRISTINE Hair [facility] [id number] Univers 09:30:00 09:30:00 t; Reji ASIF [place] HOPE, M.D. Physi ci ans Results Test Description Test Time Test Comments Results Result Comments Source [O] Urine Dipstick (In Office) 2018-05-01 10:25:00 Test Item Value Reference Range Interpretation Comme nts LEUKOCYTES (test code = LEUKOCYTES) Negative N NITRITE; Normal (test code = 78484-7) Negative N UROBILINOGEN; Normal (test code = 68584-3) 0.2 N PROTEIN (test code = 45787-3) 30 pH (test code = pH) 7.0 N URINE BLOOD (test code = 38332-9) Trace-Intact SPECIFIC GRAVITY; Normal (test code = 2965-2) 1.020 N KETONES; Normal (test code = 86085-6) Negative N BILIRUBIN; Normal (test code = 79413-2) Neative N GLUCOSE; Normal (test code = 1547-9) Negative N [facility] [place] [facility]
--- OUTSIDE RECORDS SUMMARY | 2020-04-13 19:34 | XMS REPORT | Summary of Care ---
:1990 Author Organization [facility] - [address] [address] Care Team Providers Name Role Phone Corrine Bates Primary Care Provider Reason for Visit Reason Comments Notification Encounter Details Date Type Department Care Team Description 02/17/2020 Telephone [facility] Hematology / Neela Rodriguez, SKIN GRADER Notification Oncology-[address] [place] [address] 46-2331 [place] [address] Allergies No Known Allergiesdocumented as of this encounter (statuses as of 02/17/2020) Medications Medication Sig Dispensed Refills Start Date [...] into Dysuria, Yeast vagina at bedtime. vaginitis Everolimus (AFINITOR) Take 1 tablet by 30 tablet 5 01/20/2020 Active 10 mg mouth daily. 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 Overview: Added automatically from request for luz maria crowder [id number] Obesity (BMI 30-39.9) 09/27/2019 Mass of right kidney 09/26/2019 documented as of this encounter (statuses as of 02/17/2020) Immunizations Name Administration Dates Next Due Influenza [...] Visit Oncology Clement Hassan Rp, M D [address] [place] [address] 555 04/01/2020 Office Visit Nephrology Tara Meza M D [address] [place], [place] [address] [phone] 06/01/2020 Appointment Radiology Jania Earl, NURSING HOME ADMINISTRATOR [address] [facility] [address] [place] [address] [phone] 06/04/2020 Office Visit Urology Tonya Boyle MD [address] [place], [place] [address] [phone] 11/30/2020 Appointment Radiology Jania Earl, NURSING HOME ADMINISTRATOR [address] [facility] [address] [place] [address] [phone] Health Maintenance Due Date Last Done Comments VARICELLA VACCINES (1 of - 1991 2-dose childhood series) DTaP,Tdap,and Td Vaccines (1 - 2001 Tdap) PAP SMEAR 2011 INFLUENZA VACCINE Completed 10/01/2019 PNEUMOCOCCAL 0-64 YEARS COMBINED Aged Out No longer eligible based on SERIES patient's age to complete this topic documented as of this encounter Implants Implanted Type Area Cutter Operator Brick Device Shelf Model / Identifier Expiration Date Ser ial / Lot Mynx Right: Arrow 07/13/2021 [id number] / Implanted: Qty: 1 on 09/27/2019 at [facility] Aubrey [id number] / [id number] documented as of this encounter Results Not on filedocumented in this encounter Insurance Payer Benefit Plan / Subscriber ID Effective Phone Address T e Group Dates TOBIN RUDD xxxxxxxxx 2015-[place] [address] Medic [facility] [place] [facility] [place] [id number] MANAGED MEDICAID [place] documented as of this encounter
--- OUTSIDE RECORDS SUMMARY | 2020-04-13 19:34 | XMS REPORT | Summary of Care ---
:1990 Author Organization [facility] - [address] [address] Care Team Providers Name Role Phone Corrine Bates Primary Care Provider Reason for Visit Reason Comments Notification Encounter Details Date Type Department Care Team Description 01/24/2020 Telephone [facility] Hematology / Neela Rodriguez, SPA RECEPTIONIST Notification Oncology-[address] [place] [address] 60-0821 [place] [address] Allergies No Known Allergiesdocumented as of this encounter (statuses as of 01/24/2020) Medications Medication Sig Dispensed Refills Start Date [...] as of this encounter (statuses as of 01/24/2020) Active Problems Problem Noted Date Status post nephrectomy 12/05/2019 Pulmonary nodules 12/05/2019 Renal mass 10/02/2019 Overview: Added automatically from request for luz maria crowder [id number] 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 Overview: Added automatically from request for luz maria crowder [id number] Obesity (BMI 30-39.9) 09/27/2019 Mass of right kidney 09/26/2019 documented as of this encounter (statuses as of 01/24/2020) Immunizations Name Administration Dates Next Due Influenza [...] Visit Oncology Clement Hassan Rp, M D [address] [place] [address] 555 04/01/2020 Office Visit Nephrology Tara Meza M D [address] [place], [place] [phone] 06/01/2020 Appointment Radiology Jania Earl, SCRAP SHEAR OPERATOR 2240 [facility] [address] [place] [address] [phone] 06/04/2020 Office Visit Urology Tonya Boyle MD [address] [place], [place] [address] [phone] 11/30/2020 Appointment Radiology Jania Earl, SCRAP SHEAR OPERATOR 2[address] [facility] [address] [place] [address] [phone] Health Maintenance Due Date Last Done Comments VARICELLA VACCINES (1 of - 1991 2-dose childhood series) DTaP,Tdap,and Td Vaccines (1 - 2001 Tdap) PAP SMEAR 2011 INFLUENZA VACCINE Completed 10/01/2019 PNEUMOCOCCAL 0-64 YEARS COMBINED Aged Out No longer eligible based on SERIES patient's age to complete this topic documented as of this encounter Implants Implanted Type Area Windows Application Packager Device Shelf Model / Identifier Expiration Date Ser ial / Lot Mynx Right: Arrow 07/13/2021 [id number] / Implanted: Qty: 1 on 09/27/2019 at [facility] Aubrey [id number] / [id number] documented as of this encounter Results Not on filedocumented in this encounter Insurance Payer Benefit Plan / Subscriber ID Effective Phone Address T e Group Dates TOBIN RUDD xxxxxxxxx 2015-[place] [address]OX Medic [employer] [facility] [place] [facility] [place] [address] MANAGED MEDICAID [place] documented as of this encounter
--- OUTSIDE RECORDS SUMMARY | 2020-04-13 19:34 | XMS REPORT | Summary of Care ---
:1990 Author Organization [facility] Address [address] [place] [address] Care Team Providers Name Role Phone Corrine Bates Primary Care Provider [employer] Insurance Hmo Reason for Visit Reason Comments Error (Routine) Status Reason Specialty Diagnoses / Referred By Referred To Procedures Contact Contact New Request Nephrology Diagnoses 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 Leila Earl Procedures CONSULT/REFERRAL NEPHROLOGY N, PROJECTION TECHNICIAN 2240 [facility] [address] [place] [address] Encounter Details Date Type Department Care Team Description 04/01/2020 Telemedicine Visit [facility] FLORECITA Meza Nephrology-[place] MD Tara (Primary Dx) Multispecialty [facility] 301 [facility] 2660 [facility] [phone] Allergies No Known Allergiesdocumented as of this encounter (statuses as of 04/01/2020) Medications Medication Sig Dispensed Refills Start Date End Date Status escitalopram oxalate Take 20 mg by 0 Active 20 mg tablet mouth daily. Lamotrigine 100 mg Take by mouth. 0 Active TbDL traZODONE 50 mg Take 50 mg by 0 Active tablet mouth at bedtime. Cetirizine 10 mg Take by mouth. 0 Active capsule traMADOL 50 mg Take 1 tablet by [...] as of this encounter (statuses as of 04/01/2020) Active Problems Problem Noted Date Status post nephrectomy 12/05/2019 Pulmonary nodules 12/05/2019 Renal mass 10/02/2019 Overview: Added automatically from request for luz maria vel [id number] 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 Overview: Added automatically from request for luz maria vel [id number] Obesity (BMI 30-39.9) 09/27/2019 Mass of right kidney 09/26/2019 documented as of this encounter (statuses as of 04/01/2020) Immunizations Name Administration Dates Next Due Influenza [...] Travel End No recent travel history available. COVID-19 Exposure Response Date Recorded In the last month, have you been in contact with No / Unsure 03/06/2020 9:02 PM CDT someone who was confirmed or suspected to have Coronavirus / COVID-19? documented as of this encounter Last Filed Vital Signs Not on filedocumented in this encounter Progress Notes Tara Meza MD - 04/01/2020 1:30 PM CDTAttempted to call the patient for her clinic appointment but was unable to reach her. [employer] is not accepting any messages. documented in this encounter Plan of Treatment Date Type Specialty Care Team Description 06/01/2020 Appointment Radiology Jania Earl, PROJECTION TECHNICIAN 2240 [facility] [address] [place], [place] [phone] 06/04/2020 Office Visit Urology Tonya Boyle MD [address] [place] [address] [phone] 11/30/2020 Appointment Radiology Jania Earl, PROJECTION TECHNICIAN 2[address] [facility] [address] [place], [place] [phone] Health Maintenance Due Date Last Done Comments VARICELLA VACCINES (1 of 2 - 1991 2-dose childhood series) DTaP,Tdap,and Td Vaccines (1 - 2001 Tdap) PAP SMEAR 2011 INFLUENZA VACCINE Completed 10/01/2019 PNEUMOCOCCAL 0-64 YEARS COMBINED Aged Out No longer eligible based on SERIES patient's age to complete this topic documented as of this encounter Implants Implanted Type Area Bartender Device Shelf Model / Identifier Expiration Date Ser ial / Lot Mynx Right: Arrow 07/13/2021 [id number] / Implanted: Qty: 1 on 09/27/2019 at [facility] Groin [id number] / [id number] documented as of this encounter Results Not on filedocumented in this encounter Visit Diagnoses Diagnosis CANCELLATION - Primary documented in this encounter Insurance Payer Benefit Plan / Subscriber ID Effective Phone Address T ype Group Dates TOBIN RUDD xxxxxxxxx 2015-Caitlyn MARC Medic aid [facility] [place] [facility] [place] [address] MANAGED MEDICAID [place] documented as of this encounter
--- OUTSIDE RECORDS SUMMARY | 2020-04-13 19:34 | XMS REPORT ---
:1990 Author Organization [employer] Care Team Providers Name Role Phone Bates, Na Provider Role Unavailable Allergies, Adverse Reactions, Alerts Substance Reaction Event Type N.K.D.A. 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 Problem Pornography addiction F66 Active Problem Benign neoplasm of kidney D30.00 Ac tive Problem Exposure to sexually transmitted Z20.2 Active disease (STD) Problem Seasonal allergies J30.2 Active Assessment Gastroesophageal reflux disease K21.9 Active without esophagitis Assessment Depression with anxiety F41.8 Acti ve Problem 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 Assessment control counseling Z30.09 Act ric Problem Uses control Z30.9 Active Problem BCP ( control pills) Z30.011 Ac tive initiation Problem Panic attacks F41.0 Active Problem Onychomycosis B35.1 Active Problem Seizure disorder G40.909 Active Problem Insomnia G47.00 Active Problem Back pain M54.9 Active Problem Depression with anxiety F41.8 Acti ve Problem Seizures R56.9 Active Problem Obesity E66.9 Active Problem 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 Medications Medication Code Code Instructions Start End Date Status Dosage System Date Pantoprazole NDC 37451924834 40 MG Orally Active 1 tablet Sodium Once a day Lamictal NDC 56423529403 100 MG Orally Active 1 tab let Twice a day Clonazepam NDC 83955607738 0.5 MG Orally Oct 28, Active 1 t ablet on Once a day 2019 the tongue and allow to dissolve as needed for acute panic attacks Lexapro [facility] 12207589523 20 MG Orally Active 1 table t Once a day Gianvi [facility] 59547900211 3-0.02 MG Active 1 tablet Orally Once a day Seroquel [facility] 29028715746 50 MG Orally Active 1 tabl et Once a day at bedtime Afinitor [facility] 91540840446 5 MG Orally Active 1 table t Once a day Ondansetron HCl [facility] 30841355456 4 MG Orally one Acti ve as directed tablet by mouth every 4 hrs Cetirizine HCl [facility] 39122813117 10 MG Orally Active take 1 Once a day tablet by mouth every day as needed for allergies Fluconazole [facility] 26686518239 150 MG Orally 1 January Active 1 tablet dose today, march 16, 20202019 repeat dose in 1 week Results No Known Results Summary Purpose eClinicalWorks Submission
--- OUTSIDE RECORDS SUMMARY | 2020-04-13 19:34 | XMS REPORT | Summary of Care ---
:1990 Author Organization [facility] Address [address] [place] [address] Care Team Providers Name Role Phone Corrine Bates Primary Care Provider [employer] Insurance Hmo Reason for Visit Reason Comments Pre-Visit Planning Encounter Details Date Type Department Care Team Description 03/26/2020 Telephone [facility] Tara Meza M D Pre-Visit Planning Nephrology-[place] [address] [facility] [place] [address] [place] [address] [place], [place] [phone] Allergies No Known Allergiesdocumented as of this encounter (statuses as of 03/26/2020) Medications Medication Sig Dispensed Refills Start Date [...] as of this encounter (statuses as of 03/26/2020) Active Problems Problem Noted Date Status post nephrectomy 12/05/2019 Pulmonary nodules 12/05/2019 Renal mass 10/02/2019 Overview: Added automatically from request for luz maria crowder [id number] 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 Overview: Added automatically from request for luz maria crowder [id number] Obesity (BMI 30-39.9) 09/27/2019 Mass of right kidney 09/26/2019 documented as of this encounter (statuses as of 03/26/2020) Immunizations Name Administration Dates Next Due Influenza [...] Date Type Specialty Care Team Description 03/27/2020 Telemedicine Visit Oncology Clement Hassan Rp, MD [address] [place] [address] 04/01/2020 Telemedicine Visit Nephrology Tara Meza MD [address] [place] [phone] 06/01/2020 Appointment Radiology Jania Earl, LABORATORY TESTER 2240 [facility] [address] [place] [address] [phone] 06/04/2020 Office Visit Urology Tonya Boyle MD [address] [place] [address] [phone] 11/30/2020 Appointment Radiology Jania Earl, LABORATORY TESTER 2[address] [facility] [address] [place] [address] [phone] Name Type Priority Associated Diagnoses Order S chedule ALBUMIN LAB Routine Angiomyolipoma of both 1 Occ urrences starting kidneys 03/26/2020 until Status post nephrectomy 06/13 BASIC METABOLIC PANEL LAB Routine Angiomyolipoma of b oth 1 Occurrences starting (NA, K, CL, CO2, kidneys 03/26/2020 until GLUCOSE, BUN, Status post nephrectomy CREATININE, CA) MAGNESIUM LAB Routine Angiomyolipoma of both 1 Occ urrences starting kidneys 03/26/2020 until Status post nephrectomy 06/13 MICROALBUMIN URINE LAB Routine Angiomyolipoma of both 1 Occurrences starting kidneys 03/26/2020 until Status post nephrectomy 06/13 PROTEIN CREAT RATIO LAB Routine Angiomyolipoma of bot h 1 Occurrences starting URINE RANDOM kidneys 03/26/2020 until Status post nephrectomy 09/13 PHOSPHORUS LAB Routine Angiomyolipoma of both 1 Occ urrences starting kidneys 03/26/2020 until Status post nephrectomy 09/13 PROFILE / HEMOGRAM LAB Routine Angiomyolipoma of both 1 Occurrences starting kidneys 03/26/2020 until Status post nephrectomy 06/13 INTACT PTH CALCIUM GROUP LAB Routine Angiomyolipoma o f both 1 Occurrences starting kidneys 03/26/2020 until Status post nephrectomy 06/13 URIC ACID LAB Routine Angiomyolipoma of both 1 Occ urrences starting kidneys 03/26/2020 until Status post nephrectomy 06/13 URINALYSIS LAB Routine Angiomyolipoma of both 1 Occ urrences starting kidneys 03/26/2020 until Status post nephrectomy 06/13 Health Maintenance Due Date Last Done Comments VARICELLA VACCINES (1 of 2 - 1991 2-dose childhood series) DTaP,Tdap,and Td Vaccines (1 - 2001 Tdap) PAP SMEAR 2011 INFLUENZA VACCINE Completed 10/01/2019 PNEUMOCOCCAL 0-64 YEARS COMBINED Aged Out No longer eligible based on SERIES patient's age to complete this topic documented as of this encounter Implants Implanted Type Area Repairer Sash And Door Device Shelf Model / Identifier Expiration Date Ser ial / Lot Mynx Right: Arrow 07/13/2021 [id number] / Implanted: Qty: 1 on 09/27/2019 at [facility] Groin [id number] / [id number] documented as of this encounter Results Not on filedocumented in this encounter Visit Diagnoses Diagnosis Status post nephrectomy - Primary Angiomyolipoma of both kidneys documented in this encounter Insurance Payer Benefit Plan / Subscriber ID Effective Phone Address T [facility] Group Dates TOBIN RUDD xxxxxxxxx 2015-Prese [address] Medic [place] [id number] [place] MED[place] documented as of this encounter
--- OUTSIDE RECORDS SUMMARY | 2020-04-13 19:34 | XMS REPORT | Summary of Care ---
:1990 Author Organization [facility] - [address] [address] Care Team Providers Name Role Phone Corrine Bates Primary Care Provider Reason for Visit Reason Comments Assessment Encounter Details Date Type Department Care Team Description 02/24/2020 Telephone [facility] Hematology / Neela Rodriguez, MEDICAL COMMUNICATION SPECIALIST Assessment Oncology-[address] [place] [address] 70-7340 [place] [address] Allergies No Known Allergiesdocumented as of this encounter (statuses as of 02/24/2020) Medications Medication Sig Dispensed Refills Start Date [...] as of this encounter (statuses as of 02/24/2020) Active Problems Problem Noted Date Status post nephrectomy 12/05/2019 Pulmonary nodules 12/05/2019 Renal mass 10/02/2019 Overview: Added automatically from request for luz maria crowder [id number] 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 Overview: Added automatically from request for luz maria crowder [id number] Obesity (BMI 30-39.9) 09/27/2019 Mass of right kidney 09/26/2019 documented as of this encounter (statuses as of 02/24/2020) Immunizations Name Administration Dates Next Due Influenza [...] Visit Oncology Clement Hassan Rp, M D [address] [place] [address] 04/01/2020 Telemedicine Visit Nephrology Tara Meza MD [address] [place], [place] [phone] 06/01/2020 Appointment Radiology Jania Earl, LIQUOR TESTER 2[address] [facility] [address] [place] [address] [phone] 06/04/2020 Office Visit Urology Tonya Boyle MD [address] [place], [place] [phone] 11/30/2020 Appointment Radiology Jania Earl, LIQUOR TESTER 2[address] [facility] [address] [place] [address] [phone] Health Maintenance Due Date Last Done Comments VARICELLA VACCINES (1 of - 1991 2-dose childhood series) DTaP,Tdap,and Td Vaccines (1 - 2001 Tdap) PAP SMEAR 2011 INFLUENZA VACCINE Completed 10/01/2019 PNEUMOCOCCAL 0-64 YEARS COMBINED Aged Out No longer eligible based on SERIES patient's age to complete this topic documented as of this encounter Implants Implanted Type Area Side Boss Device Shelf Model / Identifier Expiration Date Ser ial / Lot Mynx Right: Arrow 07/13/2021 [id number] / Implanted: Qty: 1 on 09/27/[address] [facility] Aubrey [id number] / [id number] documented as of this encounter Results Not on filedocumented in this encounter Insurance Payer Benefit Plan / Subscriber ID Effective Phone Address T e Group Dates TOBIN RUDD xxxxxxxxx 2015-Prese P O BOX Medic [facility] [place] [facility] [place] [address] MANAGED MEDICAID [place] documented as of this encounter
--- OUTSIDE RECORDS SUMMARY | 2020-04-13 19:34 | XMS REPORT | Summary of Care ---
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 Overview: Added automatically from request for luz maria crowder [id number] Obesity (BMI 30-39.9) 09/27/2019 Mass of right [...] Visit Oncology Clement Hassan Rp, M D [address] [place] [address] 555 04/01/2020 Office Visit Nephrology Tara Meza M D [address] [place], [place] [phone] 06/01/2020 Appointment Radiology Jania Earl, THERMOPLASTIC TECHNICIAN 2[address] [facility] [address] [place] [address] [phone] 06/04/2020 Office Visit Urology Tonya Boyle MD [address] [place], [place] [phone] 11/30/2020 Appointment Radiology Jania Earl, THERMOPLASTIC TECHNICIAN 2[address] [facility] [address] [place] [address] [phone] Health Maintenance Due Date Last Done Comments VARICELLA VACCINES (1 of - 1991 2-dose childhood series) DTaP,Tdap,and Td Vaccines (1 - 2001 Tdap) PAP SMEAR 2011 INFLUENZA VACCINE Completed 10/01/2019 PNEUMOCOCCAL 0-64 YEARS COMBINED Aged Out No longer eligible based on SERIES patient's age to complete this topic documented as of this encounter Implants Implanted Type Area Program Production Specialist Device Shelf Model / Identifier Expiration Date Ser ial / Lot Mynx Right: Arrow 07/13/2021 [id number] / Implanted: Qty: 1 on 09/27/2019 at [facility] Aubrey [id number] / [id number] documented as of this encounter Results Not on filedocumented in this encounter Insurance Payer Benefit Plan / Subscriber ID Effective Phone Address T e Group Dates TBOIN RUDD xxxxxxxxx 2015-[place] [address]OX Medic [facility] [place] [address] MANAGED MEDICAID [place] documented as of this encounter
--- OUTSIDE RECORDS SUMMARY | 2020-04-13 19:34 | XMS REPORT | Summary of Care ---
:1990 Author Organization [facility] - [address] [address] Care Team Providers Name Role Phone Corrine Bates Primary Care Provider [employer] Insurance Hmo Reason for Visit Reason Comments Assessment Encounter Details Date Type Department Care Team Description 03/18/[address] 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 Overview: Added automatically from request for luz maria crowder [id number] Obesity (BMI 30-39.9) 09/27/2019 Mass of right kidney 09/26/2019 documented as of this encounter (statuses as of 03/18/2020) Immunizations Name Administration Dates Next Due Influenza [...] Oncology Clement Hassan Rp, M D [address] [place] [address] 04/01/2020 Telemedicine Visit Nephrology Tara Meza MD [address] [place] [phone] 06/01/2020 Appointment Radiology Jania Earl, SPACE OFFICER 2240 [facility] [address] [place] [address] [phone] 06/04/2020 Office Visit Urology Tonya Boyle MD [address] [place] [phone] 11/30/2020 Appointment Radiology Jania Earl, SPACE OFFICER 2[address] [facility] [address] [place] [address] [phone] Health Maintenance Due Date Last Done Comments VARICELLA VACCINES (1 of 2 - 1991 2-dose childhood series) DTaP,Tdap,and Td Vaccines (1 - 2001 Tdap) PAP SMEAR 2011 INFLUENZA VACCINE Completed 10/01/2019 PNEUMOCOCCAL 0-64 YEARS COMBINED Aged Out No longer eligible based on SERIES patient's age to complete this topic documented as of this encounter Implants Implanted Type Area Gas Main Fitter Device Shelf Model / Identifier Expiration Date Ser ial / Lot Mynx Right: Arrow 07/13/2021 [id number] / Implanted: Qty: 1 on 09/27/2019 at [facility] Christenin [id number] / [id number] documented as of this encounter Results Not on filedocumented in this encounter Insurance Payer Benefit Plan / Subscriber ID Effective Phone Address T [facility] Group Dates TOBIN RUDD xxxxxxxxx 2015-Prese [address] BOX Medic [place] [address] MA[place] MEDICAID [place] documented as of this encounter
--- OUTSIDE RECORDS SUMMARY | 2020-04-13 19:34 | XMS REPORT | Summary of Care ---
:1990 Author Organization [facility] Address [address] [place] [address] Care Team Providers Name Role Phone Corrine Bates Primary Care Provider Reason for Visit Reason Comments Rx Concern/Question Encounter Details Date Type Department Care Team Description 01/27/2020 Telephone [facility] Jesika Rodriguez NP Rx Concern/Question Hematology-Oncology - [address] [place] [id number] [address] Aixa ahmadi [phone] [facility], [address] [place] [address] Allergies No Known Allergiesdocumented as of this encounter (statuses as of 01/27/2020) Medications Medication Sig Dispensed Refills Start Date [...] as of this encounter (statuses as of 01/27/2020) Active Problems Problem Noted Date Status post nephrectomy 12/05/2019 Pulmonary nodules 12/05/2019 Renal mass 10/02/2019 Overview: Added automatically from request for luz maria crowder [id number] 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 Overview: Added automatically from request for luz maria crowder [id number] Obesity (BMI 30-39.9) 09/27/2019 Mass of right kidney 09/26/2019 documented as of this encounter (statuses as of 01/27/2020) Immunizations Name Administration Dates Next Due Influenza [...] Oncology Clement Hassan Rp, M D [address] [place] [address] 555 [phone] 04/01/2020 Office Visit Nephrology Tara Meza M D [address] [address] [phone] 06/01/2020 Appointment Radiology Jania Earl, MASS SPECTROSCOPIST [address] [facility] [address] [place], [place] [address] 06/04/2020 Office Visit Urology Tonya Boyle MD [address] [place], [place] [address] [phone] 11/30/2020 Appointment Radiology Jania Earl, MASS SPECTROSCOPIST 2[address] [facility] [address] [place] [address] [phone] Health Maintenance Due Date Last Done Comments VARICELLA VACCINES (1 of 2 - 1991 2-dose childhood series) DTaP,Tdap,and Td Vaccines (1 - 2001 Tdap) PAP SMEAR 2011 INFLUENZA VACCINE Completed 10/01/2019 PNEUMOCOCCAL 0-64 YEARS COMBINED Aged Out No longer eligible based on SERIES patient's age to complete this topic documented as of this encounter Implants Implanted Type Area Casino Cashier Manager Device Shelf Model / Identifier Expiration Date Ser ial / Lot Mynx Right: Arrow 07/13/2021 [id number] / Implanted: Qty: 1 on 09/27/2019 at [facility] Aubrey [id number] / [id number] documented as of this encounter Results Not on filedocumented in this encounter Insurance Payer Benefit Plan / Subscriber ID Effective Phone Address T ype Group Dates TOBIN RUDD xxxxxxxxx 2015-Caitlyn P O BOX Medic [facility] [place] [address] MANAG[place] MEDICAID [place] documented as of this encounter
--- OUTSIDE RECORDS SUMMARY | 2020-04-13 19:34 | XMS REPORT | Summary of Care ---
:1990 Author Organization [facility] - [address] [address] Care Team Providers Name Role Phone Corrine Bates Primary Care Provider [employer] Insurance Hmo Reason for Visit Reason Comments Assessment Encounter Details Date Type Department Care Team Description 03/17/[address] [facility] Hematology / Neela Rodriguez, PIGMENT WEIGHER Assessment Oncology-[address] [place] [address] [phone] [place] [address] Allergies No Known Allergiesdocumented as of this encounter (statuses as of 03/17/2020) Medications Medication Sig Dispensed Refills Start Date [...] as of this encounter (statuses as of 03/17/2020) Active Problems Problem Noted Date Status post nephrectomy 12/05/2019 Pulmonary nodules 12/05/2019 Renal mass 10/02/2019 Overview: Added automatically from request for luz maria crowder [id number] 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 Overview: Added automatically from request for luz maria crowder [id number] Obesity (BMI 30-39.9) 09/27/2019 Mass of right kidney 09/26/2019 documented as of this encounter (statuses as of 03/17/2020) Immunizations Name Administration Dates Next Due Influenza [...] Oncology Clement Hassan Rp, M D [address] [address] 555 04/01/2020 Telemedicine Visit Nephrology Tara Meza MD [address] [address] [phone] 06/01/2020 Appointment Radiology Jania Earl, ELEVATORS INSPECTOR 2[address] [facility] [address] [place] [address] [phone] 06/04/2020 Office Visit Urology Tonya Boyle MD [address] [place] [phone] 11/30/2020 Appointment Radiology Jania Earl, ELEVATORS INSPECTOR [address] [facility] [address] [place] [address] [phone] Health Maintenance Due Date Last Done Comments VARICELLA VACCINES (1 of 2 - 1991 2-dose childhood series) DTaP,Tdap,and Td Vaccines (1 - 2001 Tdap) PAP SMEAR 2011 INFLUENZA VACCINE Completed 10/01/2019 PNEUMOCOCCAL 0-64 YEARS COMBINED Aged Out No longer eligible based on SERIES patient's age to complete this topic documented as of this encounter Implants Implanted Type Area Machine Shop Supervisor Device Shelf Model / Identifier Expiration Date Ser ial / Lot Mynx Right: Arrow 07/13/2021 [id number] / Implanted: Qty: 1 on 09/27/2019 at [facility] Christenin [id number] / [id number] documented as of this encounter Results Not on filedocumented in this encounter Insurance Payer Benefit Plan / Subscriber ID Effective Phone Address T [facility] Group Dates TOBIN RUDD xxxxxxxxx 2015-Prese P [place]OX Medic [place] [phone] MA[place] MED[place] documented as of this encounter
--- OUTSIDE RECORDS SUMMARY | 2020-04-13 19:34 | XMS REPORT | Summary of Care ---
:1990 Author Organization [facility] - Health Address [address] [place] [address] Care Team Providers Name Role Phone Corrine Bates Primary Care Provider Encounter Details Date Type Department Care Team Description 01/20/2020 Orders Only [facility] Doctor Unassigned, No 301 [facility] [address] 301 [place] [address] Allergies No Known Allergiesdocumented as of this encounter (statuses as of 01/21/2020) Medications Medication Sig Dispensed Refills Start Date [...] as of this encounter (statuses as of 01/21/2020) Active Problems Problem Noted Date Status post nephrectomy 12/05/2019 Pulmonary nodules 12/05/2019 Renal mass 10/02/2019 Overview: Added automatically from request for luz maria vel [id number] 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 Overview: Added automatically from request for luz maria crowder [id number] Obesity (BMI 30-39.9) 09/27/2019 Mass of right kidney 09/26/2019 documented as of this encounter (statuses as of 01/21/2020) Immunizations Name Administration Dates Next Due Influenza [...] Oncology Clement Hassan Rp, M D [address] [address] 555 04/01/2020 Office Visit Nephrology Tara Meza M D [address] [place], [place] [address] [phone] 06/01/2020 Appointment Radiology Jania Earl, HEAD RESIDENT 2[address] [facility] [address] [place] [address] [phone] 06/04/2020 Office Visit Urology Tonya Boyel MD [address] [place], [place] [address] [phone] 11/30/2020 Appointment Radiology Jania Earl, HEAD RESIDENT [address] [facility] [address] [place] [address] [phone] Health Maintenance Due Date Last Done Comments VARICELLA VACCINES (1 of 2 - 1991 2-dose childhood series) DTaP,Tdap,and Td Vaccines (1 - 2001 Tdap) PAP SMEAR 2011 INFLUENZA VACCINE Completed 10/01/2019 PNEUMOCOCCAL 0-64 YEARS COMBINED Aged Out No longer eligible based on SERIES patient's age to complete this topic documented as of this encounter Implants Implanted Type Area Shop Router Device Shelf Model / Identifier Expiration Date Ser ial / Lot Mynx Right: Arrow 07/13/2021 [id number] / Implanted: Qty: 1 on 09/27/[address] [facility] Groin [id number] / [id number] documented as of this encounter Procedures Procedure Name Priority Date/Time Associated Diagnosis Comme nts REFERRAL- Routine 01/20/2020 12:01 AM CDT REQUEST/RESPONSE documented in this encounter Results Not on filedocumented in this encounter Insurance Payer Benefit Plan / Subscriber ID Effective Phone Address T ype Group Dates TOBIN RUDD xxxxxxxxx 2015-[place] P O BOX Medic [facility] [facility] [place] [address] MA[place]GED MEDICAID [place] documented as of this encounter
--- OUTSIDE RECORDS SUMMARY | 2020-04-13 19:35 | XMS REPORT | Summary of Care ---
:1990 Author Organization [facility] Address [address] [place] [address] Care Team Providers Name Role Phone Corrine Bates Primary Care Provider [employer] Insurance Hmo Reason for Visit Reason Comments Follow-up Encounter Details Date Type Department Care Team Description 03/27/2020 Telemedicine Visit [facility] Clement Hassan Rp, MD Angiomyolipoma of both kidneys (Primary Dx); Hematology-[place] [address] [place] [address] Tuberous sclerosis; [facility] Status post nephrectomy; [address] [place], [place] Pulmonary n odules; Drive [address] Anemia, unspecified type; [facility] [phone] Iron deficiency; Building, [phone] B12 deficien cy 1.230 (Fax) [place] [address] Allergies No Known Allergiesdocumented as of this encounter (statuses as of 04/09/2020) Medications Medication Sig Dispensed Refills Start End [...] of both kidneys, Tuberous sclerosis Everolimus Take by mouth. 0 Dis continued (AFINITOR) 5 mg Tab 020 (Therapy completed) documented as of this encounter (statuses as of 04/09/2020) Active Problems Problem Noted Date Status post nephrectomy 12/05/2019 Pulmonary nodules 12/05/2019 Renal mass 10/02/2019 Overview: Added automatically from request for luz maria vel [id number] 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 Overview: Added automatically from request for luz maria vel [id number] Obesity (BMI 30-39.9) 09/27/2019 Mass of right kidney 09/26/2019 documented as of this encounter (statuses as of 04/09/2020) Immunizations Name Administration Dates Next Due Influenza [...] on filedocumented in this encounter Progress Notes Clement Hassan Rp, MD - 03/27/2020 1:20 PM CDT [facility] HEMATOLOGY/ONCOLOGY CLINIC VISIT TYPE: Verbal consent obtained from Patient: Kitty Wall due to the COVID-19 pandemic for telehealth services provided below. Communication with patient was conducted via Telephone due to patient unable to obtain video call option. Interview conducted with sister/MPOA Jadaletaesence. Location of Patient: Home Location of Provider: Clinic Date of Service: 03/27/20 PCP: Dr. Bates CONSULTANTS: Urology, Nephrology, Neurology, Genetics CC: Angiomyolipoma DIAGNOSIS: Tuberous Sclerosis, Angiomyolipoma (AML) of Bilateral Kidneys, s/p Right Nephrectomy, Anemia, Menorrhagia, Seizure HISTORY OF PRESENT ILLNESS Kitty Wall is a 29 year old female with PMH listed as below referred here for Everolimus therapy consideration for angiomyolipoma. Most medical information obtained from sister/medical powerof attorney recruiter Kacy. 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 Previously she was treatedwith Everolimus for 2 years without much tumor shrinkage from AML. She had renal artery embolizations x2 ( 2015, 2019 ). She experienced one month duration of major hematuria with + clots in late 2018. She was noted to have right renal lesion of 10.1x12.1cm size. She underwent right nephrectomy on 11/29/19 and has recovered well. CT scans revealed 5mm RUL lung nodule, liver hypodensity and multiplelarge AML to left kidney measuring up to 6.6 cm. Both mom and brother have AML. Interim History: She hasn't started on Afinitor yet. Diplomat was not able to confirm with her or her sister for delivery after multiple attempts. Labs showed mild renal dysfunction and anemia. She was found to have severe iron and B12 deficiencies. She hasn't started on oral supplements as previously recommended. She denies any urinary symptoms or flank pain at present. Her SOB remains stable. Denies CP, palpitation. Her postsurgical abd pain has improved. 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 OTHER stimulant for seizure to left breast RENAL ARTERY EMBOLIZATION Right 09/2019 had another one in 2016 at [facility] MEDICATIONS No outpatient medications have been marked as taking for the 03/27/20 encounter (Appointment) with Clement Hassan Rp, MD. ALLERGIES Patient has no known allergies. PSYCHOSOCIAL [...] file Gets together: Not on file Attends uatsdin service: Not on file Active member of [...] sclerosis) Father Hypothyroidism Other Stroke Maternal Aunt ME (myocardial infarction) Maternal Aunt REVIEW OF SYSTEMS General: - fever, - chills, -fatigue Skin: - rash, - jaundice HEENT: - change in vision, - change in hearing Neck: - dysphagia, - lumps Heme/Lymph: - easy bruising, - easy bleeding Respiratory System: + shortness of breath, - cough Cardiovascular: - chest pain, - palpitations GI: - nausea, - vomiting, +mild abd pain from surgery : - dysuria, - hematuria Endocrine: - heat intolerance, - cold intolerance Musculoskeletal: - myalgia, - arthralgia Neurological: - syncope, - seizures, -SHARIF, -insomnia PHYSICAL EXAM There were no vitals taken for this visit. RADIOLOGICAL FINDINGS: CT AP 12/14/19 Interval right [...] LABORATORY FINDINGS: CBC WBC (10*3/L) Date Value 01/17/2020 7.21 RBC (10*6/L) Date Value 01/17/2020 3.57 (L) PLT (10*3/L) Date Value 01/17/2020 422 (H) HGB (g/dL) Date Value 01/17/2020 10.8 (L) HCT (%) Date Value 01/17/2020 34.5 (L) NA (mmol/L) Date Value 01/17/2020 137 K (mmol/L) Date Value 01/17/2020 4.9 CALCIUM (mg/dL) Date Value 01/17/2020 9.7 CL (mmol/L) Date Value 01/17/2020 101 BUN (mg/dL) Date Value 01/17/2020 24 (H) CREATININE (mg/dL) Date Value 01/17/2020 1.21 (H) GLUCOSE (mg/dL) Date Value 01/17/2020 93 CO2 TOTAL (mmol/L) Date Value 01/17/2020 28 ALBUMIN (g/dL) Date Value 01/17/2020 4.0 T PROTEIN (g/dL) Date Value 01/17/2020 8.1 TOTAL BILI (mg/dL) Date Value 01/17/2020 <0.1 (L) BILI UNCON (mg/dL) Date Value 01/03/2020 0.0 (L) BILI CONJ (mg/dL) Date Value 01/03/2020 0.0 ALT(SGPT) (U/L) Date Value 07/23/2019 60 (H) ALTv (U/L) Date Value 01/17/2020 13 AST(SGOT) (U/L) Date Value 01/17/2020 24 ALK PHOS (U/L) Date Value 01/17/2020 132 (H) PATHOLOGY FINDINGS: A. KIDNEY, RIGHT, RADICAL [...] 1. Reviewed drug dose frequency side effects. Unfortunately drug was never delivered since pharmacy was never able to get hold of patient or family for confirmation. Sister is given Diplomat's number [phone] for delivery. -SOB -Lung Nodule She has 6mm lung nodule and experience some SOB which is stable. PFT and repeating CT chest w/ contrast in 10/2020 to re-evaluate. -Anemia -Iron Deficiency -B12 Deficiency Discussed with patient at length on significance of untreated iron deficiency anemia. Explained her that optimize her anemia would help her increase treatment tolerance and minimize complications. We reviewed erythropoiesis process, life span/functionality of cells, s/s of anemia. As of now, she and her sister prefer to manage via oral supplement route. Instructed patient to start Vitron C daily and 2000mcg B12 daily. -Hx of Seizure Remains on anti-seizure. Follows neurology. Follow Up: Follow up in 2 months. Sister expressed concern about coming to clinic for visit during current pandemic. Reassure her of the safety protocols in place and explained her the medically necessity for the in person office visit. Pt discussed with Dr. Hassan. I have reviewed all the above information at length with the patient and answered all their questions during this visit. I spent a total of 60 minutes during this visit of which 40 minutes were devoted to telephone discussion. We carefully reviewed ER warning signs. Patient is instruct to seek medical attention if having fever >100.4F, severe N/V/D/pain, SOB, CP, palpitation. Jesika Rodriguez, MSN, AGNP Hematology and Oncology [facility] I personally discussed& co managed the patient with PILO Townsend in the division of hematology and oncology, in the Department of Medicine. Kindly review her note for complete details andthe plan of care is as directed by me. The plan was arrived after I carefully reviewed all the patient details and discussed with Jesika Hassan MD direct care professional Division of Hematology and Oncology documented in this encounter Plan of Treatment Date Type Specialty Care Team Description 06/01/2020 Appointment Radiology Jania Earl FNP [address] [facility] [address] [place] [address] [phone] 06/04/2020 Office Visit Urology Tonya Boyle MD [address] [place], [place] [address] [phone] 11/30/2020 Appointment Radiology Jania Earl FNP 2[address] [facility] [address] [place] [address] [phone] Health Maintenance Due Date Last Done Comments VARICELLA VACCINES (1 of 2 - 1991 2-dose childhood series) DTaP,Tdap,and Td Vaccines (1 - 2001 Tdap) PAP SMEAR 2011 Depression Screening 01/16/2021 01/17/2020 INFLUENZA VACCINE Completed 10/01/2019 PNEUMOCOCCAL 0-64 YEARS COMBINED Aged Out No longer eligible based on SERIES patient's age to complete this topic documented as of this encounter Implants Implanted Type Area Cash Accountant Device Shelf Model / Identifier Expiration Date Ser ial / Lot Mynx Right: Arrow 07/13/2021 [id number] / Implanted: Qty: 1 on 09/27/2019 at [facility] Groin [id number] / [id number] documented as of this encounter Results Not on filedocumented in this encounter Visit Diagnoses Diagnosis Angiomyolipoma of both kidneys - Primary Tuberous sclerosis Status post nephrectomy Pulmonary nodules Other nonspecific abnormal finding of hao ng field Anemia, unspecified type Iron deficiency Other disorders of iron metabolism B12 deficiency Other B-complex deficiencies documented in this encounter Insurance Payer Benefit Plan / Subscriber ID Effective Phone Address T e Group Dates TOBIN RUDD xxxxxxxxx 2015-Caitlyn MARC [facility] [place] [facility] [place] [address] MANAGED MEDICAID [place] documented as of this encounter
--- OUTSIDE RECORDS SUMMARY | 2020-04-13 19:35 | XMS REPORT | Summary of Care ---
:1990 Author Organization [facility] Address [address] [place] [address] Care Team Providers Name Role Phone Corrine Bates Primary Care Provider Ad[employer] Insurance Hmo Reason for Visit Reason Comments Notification Encounter Details Date Type Department Care Team Description 04/02/2020 Telephone [facility] Clement Hassan Rp, M D Notification Hematology-Oncology - [address] [place] [address] 25[address] [facility] [phone] [facility], [address] [phone] ( Fax) [address] [place] [address] Allergies No Known Allergiesdocumented as of this encounter (statuses as of 04/02/2020) Medications Medication Sig Dispensed Refills Start Date [...] as of this encounter (statuses as of 04/02/2020) Active Problems Problem Noted Date Status post nephrectomy 12/05/2019 Pulmonary nodules 12/05/2019 Renal mass 10/02/2019 Overview: Added automatically from request for luz maria vel [id number] 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 Overview: Added automatically from request for luz maria crowder [id number] Obesity (BMI 30-39.9) 09/27/2019 Mass of right kidney 09/26/2019 documented as of this encounter (statuses as of 04/02/2020) Immunizations Name Administration Dates Next Due Influenza [...] Team Description 06/01/2020 Appointment Radiology Jania Earl, BUTTON TUFTER 2[address] [facility] [address] [place], [place] [address] 06/04/2020 Office Visit Urology Tonya Boyle MD [address] [place], [place] [address] [phone] 11/30/2020 Appointment Radiology Jania Earl, BUTTON TUFTER 2[address] [facility] [address] [place] [address] [phone] Health Maintenance Due Date Last Done Comments VARICELLA VACCINES (1 of - 1991 2-dose childhood series) DTaP,Tdap,and Td Vaccines (1 - 2001 Tdap) PAP SMEAR 2011 INFLUENZA VACCINE Completed 10/01/2019 PNEUMOCOCCAL 0-64 YEARS COMBINED Aged Out No longer eligible based on SERIES patient's age to complete this topic documented as of this encounter Implants Implanted Type Area Local Company Flatbed Truck Driver Device Shelf Model / Identifier Expiration Date Ser ial / Lot Mynx Right: Arrow 07/13/2021 [id number] / Implanted: Qty: 1 on 09/27/2019 at [facility] Aubrey [id number] / [id number] documented as of this encounter Results Not on filedocumented in this encounter Insurance Payer Benefit Plan / Subscriber ID Effective Phone Address T [facility] Group Dates TOBIN RUDD xxxxxxxxx 2015-Caitlyn P [address] BOX Medic [facility] [place] [address] MANAGED MEDICAID [place] documented as of this encounter
--- NOTE | 2020-04-13 20:40 | ER ---
Nurse's Notes [facility] Name: Kitty Wall Age: 29 yrs Sex: Female : 1990 Arrival Date: 04/13/2020 Time: 18:43 Bed Waiting Private MD: Diagnosis: Presentation: 04/13 18:43 Chief complaint: Patient states: Left leg pain and swelling for 1 week. No ll1 falls/trauma. SOB for months. Coronavirus screen: Proceed with normal triage. Patient denies a cough. Patient denies shortness of breath or difficulty breathing. Patient denies measured and/or subjective temperature greater than 100.4F prior to today's visit. Patient denies travel on a cruise ship or to a country the [facility] currently lists as an affected area. Patient denies contact with known and/or suspected case of COVID-19. Ebola Screen: Patient denies travel to an Ebola-affected area in the 21 days before illness onset. Initial Sepsis Screen: Does the patient meet any 2 criteria? HR > 90 bpm. No. Patient's initial sepsis screen is negative. Risk Assessment: Do you want to hurt yourself or someone else? Patient reports no desire to harm self or others. Onset of symptoms was April 05, 2020. 18:43 Method Of Arrival: Ambulatory ll1 18:43 Acuity: GULSHAN 4 ll1 Historical: - Allergies: 18:45 NKA; ll1 - PMHx: 18:45 Anxiety; Bipolar disorder; Depression; Kidney tumor; Schizophrenia; Seizures; ll1 - PSHx: 18:45 stimulator; ll1 - Immunization history:: Flu vaccine is up to date. - Social history:: Smoking status: Patient/guardian denies using tobacco, the patient reports quitting approximately 2 years ago, Patient/guardian denies using alcohol, street drugs, IV drugs. Vital Signs: 18:43 BP 155 / 93; Pulse 95; Resp 17; Temp 98.0; Pulse Ox 98% ; Pain 10/10; ll1 19:36 BP 142 / 85; Pulse 90; Resp 17; Pulse Ox 98% ; ll1 19:36 Pain 10/10; ll1 ED Course: 18:43 Patient arrived in ED. fj1 18:45 Triage completed. ll1 18:46 Arm band placed on Patient notified of wait time. ll1 Administered Medications: No medications were administered Outcome: 20:39 Patient left the ED. ll1 Signatures: Geoff Ghotra fj1 Meche Raza RN RN ll1
[2020-04-13 21:07] VITALS: TEMP 98; O2SAT 98
[2020-04-13 21:09] VITALS: BP 142/85
== END 2020-04-13 20:39 | disposition left against medical advice (07) ==
LOC: ER 18:13
DX: Z53.21 Procedure and treatment not carried out due to patient leaving prior to being seen by health care provider (principal)
CPT/HCPCS: 99281

== ENCOUNTER 2020-04-14 07:44 | Emergency (ER) | payer MEDICAID ==
--- OUTSIDE RECORDS SUMMARY | 2020-04-14 08:02 | XMS REPORT | Continuity of Care Document ---
:1990 Author Organization [facility] t Address [address] [place] [address] Care Team Providers Name Role Phone Sonya HUERTA, Rp Attending Clinician Derrick HUERTA Attending Clinician Jennifer LEARNING TECHNOLOGIES SPECIALIST Attending Clinician Doctor Unassigned, Name Attending Clinician [...] Unive rs sclerosis sclerosis [id number] ity of [place] Physici ans Localz-rlt Localz-rlt Problem Active U nivers d d [id number].[id number] [place] c epilepsy c epilepsy Ph ysici w complx w complx ans part sz, part sz, notintrac, notintrac, w status w status Angiomyoli Angiomyoli Problem Active [facility] left left [facility] kidney kidney l [facility] Seizures Seizures [facility] Depression Depression Problem Active [facility] with with [facility] - anxiety anxiety [facility] l [facility] 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 [facility] - addiction addiction Erasmo idania l [facility] Seizure Seizure Problem Active [facility] disorder disorder [facility] 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 [facility] - of kidney of kidney Erasmo idania l [facility] BCP ( BCP ( Problem Active C [facility] control control [facility] - pills) pills) [facility] initiation initiation l [facility] Back pain Back pain Problem Active [facility] Obesity Obesity Problem Active [facility] Insomnia Insomnia Problem Active [facility] 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 [facility] - [facility] 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[facility] mental mental [facility] - retardatio retardatio Me moria n n l [facility] Gastroesop Gastroesop Problem Active [facility] hageal hageal [facility] - reflux reflux Memoria disease disease l without without Outpati esophagiti esophagiti en t s s Clinics Uses Uses Problem Active [facility] control control [facility] Onychomyco Onychomyco Problem Active [facility] sis sis [facility] Panic Panic Problem Active [facility] attacks attacks [facility] Seasonal Seasonal Problem Active [facility] allergies allergies [facility] - [facility] Exposure Exposure Problem Active [facility] to [facility] - sexually sexually Memori a transmitte transmitte l d disease d disease Outp ati (STD) (STD) ent Clinics Acne Acne Problem Active [facility] rosacea rosacea [facility] Allergies, Adverse Reactions, Alerts This patient has no known allergies or adverse reactions. Social History Smoking Status Start Date Stop Date Source Never smoker [facility] Physicians Medications Ordered Filled Start Stop Current Ordering Indication Dosage Frequency Signature Comments Components Source Medication Medication Date Date Medication? Clinician (SIG) Name Name Fluconazole Fluconazole 2019-0 2020- Yes Na Bates [address] [facility] 3-04 03-05 [facility] - 00:[facility]: [facility]:00 Memoria 00 :00 l Outpati ent Clinics Clonazepam Clonazepam 2018-11 Yes Na Bates [address] [facility] 2-16 on the [facility] - 00:00: tongue and Memoria 00 allow to l dissolve Outpati as needed ent for acute Clinics panic [...] tablet [facility] Lamictal Lamictal Yes Na Bates [address] [facility] Pantoprazol Pantoprazol Yes Na Bates [address] [facility] e Sodium e Sodium [facility] Ondansetron Ondansetron Yes Na Bates as [facility] HCl HCl directed [facility] Lexapro Lexapro Yes Na Bates [address] [facility] Afinitor Afinitor Yes Na Bates [address] [facility] Gianvi Gianvi Yes Na Bates [address] [facility] Cetirizine Cetirizine 2019- No Na Bates take [address] [facility] HCl HCl 06-13 tablet by [facility] - 00:00 mouth Memoria :00 every day l as needed Outpati for ent allergies Clinics Immunizations Ordered Filled Immunization Date Status Comments Sourc e Immunization Name Name Afluria single dose Afluria single dose 2019-08-[address] [facility] Flucelvax - single Flucelvax - single 2018-10-[address] [facility] - dose syringe dose syringe 00:00:00 [facility] Vital Signs Vital Name Observation Time Observation Value Comments Source BP Systolic 2018-05-01 10:10:00 109 mm[Hg] [facility] Physician s BP Diastolic 2018-05-01 10:10:00 76 mm[Hg] [facility] Physician s Height 2018-05-01 10:10:00 154 cm [facility] Physician s Weight 2018-05-01 10:10:00 67.7 kg [facility] Physician s Body Mass Index 2018-05-01 10:10:00 28.55 kg/m2 [facility] Physician s Temperature 2018-05-01 10:10:00 96.5 [degF] [facility] Physician s Heart Rate 2018-05-01 10:10:00 91 /min [facility] Physician s Head Circumference 2018-05-01 10:10:00 [facility].7 [facility] Procedure Date / Time Performing Clinician Source Performed EKG w/Rhythm Strip 2018-04-17 00:00:00 [facility] Physicians [QLH] CBC (INCLUDES 2018-04-17 00:00:00 [facility] DIFF/PLT) Physicians [QLH] CMP W/EGFR 2018-04-17 00:00:00 [facility] Physicians [Q] EVEROLIMUS, BLOOD 2018-04-17 00:00:00 [facility] Physicians [QLH] LIPID PANEL 2018-04-17 00:00:00 [facility] Physicians [QLH] PHOSPHATE ( 2018-04-17 00:00:00 [facility] PHOSPHORUS) Physicians [QLH] PTH, INTACT 2018-04-17 00:00:00 [facility] (WITHOUT CALCIUM) Physicians [QLH] LAMOTRIGINE 2018-04-17 00:00:00 [facility] Physicians MRI Brain w/wo contrast 2018-04-17 00:00:00 [facility] [id number] Abdomen w/wo 2018-04-17 00:00:00 [facility] [place] contrast [id number] Physicians Encounters Start End Encounter Admission Attending Care Care Encounter Source Date/Time Date/Time Type Type Clinicians Facility Department ID 2020-04-13 2020-04-13 Outpatient Wilberto Waters [id number] [facility] 11:29:00 11:29:00 [facility] [place] [facility] 2020-04-02 2020-04-02 Telephone Sonya Nathenmikie WHITE [id number] 00:00:00 00:00:00 Rp H [id number] BUILDING [id number] [id number] 2020-04-01 2020-04-01 [facility] [id number] 08:16:39 09:16:39 ne Visit Tara [id number] [facility] 4.2.7.2.686 [place] [id number] [facility] 2020-03-27 2020-03-27 Telemedici Sonya Nathenmikie WHITE 1.2.840.11 [id number] 07:50:37 08:10:37 ne Visit Rp H [id number] [facility] 4.2.7.2.686 [id number] 2020-03-26 2020-03-[address] [facility] [id number] 00:00:00 00:00:00 Tara MULTISPEC [id number] IALTY 4.2.7.2.686 [place] [id number] AND YEE [facility] 2020-03-18 2020-03-18 Telephone Jesika Rodriguez 1.2.840.114 [id number] 00:00:00 00:00:00 Y HEALTH [id number] [facility] 4.2.7.2.686 [id number] 2020-03-17 2020-03-17 Telephone Jesika Rodriguez 1.2.840.114 [id number] 00:00:00 00:00:00 Y HEALTH [id number] CLINICS 4.2.7.2.686 [id number] 2020-02-24 2020-02-24 Telephone Jesika Rodriguez 1.2.840.114 [id number] 00:00:00 00:00:00 Y HEALTH 350.1.13.10 CLINICS 4.2.7.2.686 [id number] 2020-02-17 2020-02-17 Telephone Jesika Rodriguez [facility] 1.2.840.114 [id number] 00:00:00 00:00:00 Y HEALTH 350.1.13.10 CLINICS 4.2.7.2.686 [id number] 2020-01-27 2020-01-27 Telephone Jesika Rodriguez CINDY 1.2.840.114 [id number] 00:00:00 00:00:00 H 350.1.13.10 BUILDING 4.2.7.2.686 [id number] 2020-01-24 2020-01-24 Telephone Jesika Rodriguez [facility] 1.2.840.114 [id number] 00:00:00 00:00:00 Y HEALTH 350.1.13.10 CLINICS 4.2.7.2.686 [id number] 2020-01-24 2020-01-24 Telephone Jesika Rodriguez [facility] 1.2.840.114 [id number] 00:00:00 00:00:00 Y HEALTH 350.1.13.10 [facility] 4.2.7.2.686 [id number] 2020-01-20 2020-01-20 Telephone Clement Hassan CINDY 1.2.840.114 [id number] 00:00:00 00:00:00 Rp H 350.1.13.10 BUILDING 4.2.7.2.686 [id number] 2020-01-20 2020-01-20 Orders Doctor PAOLA 1.2.840.114 [id number] 00:00:00 00:00:00 Only Unassigned, RISSA 350.1.13.10 [place] [facility] 4.2.7.2.686 [id number] 2020-01-17 2020-01-17 Office Clement Hassan CINDY 1.2.840.114 [id number] 08:44:32 10:16:47 Visit Rp H 350.1.13.10 BUILDING 4.2.7.2.686 [id number] 2020-01-15 2020-01-15 [facility] [id number] [facility] 12:20:00 12:20:00 [place] [employer] [place] [facility] Medicine Outpati ent Clinics 2020-01-08 2020-01-08 [facility] [id number] 08:53:00 08:53:00 [place] [employer] s - Drive [facility] Medicine Outpati ent Clinics 2019-10-28 2019-10-28 [facility] [id number] [address] 09:40:00 09:40:00 [place] [employer] [place] [facility] Medicine Outpati ent Clinics 2019-09-03 2019-09-03 [facility] [id number] 16:57:00 16:57:00 [place] [employer] - [employer] [facility] Medicine Outpati ent Clinics 2019-08-27 2019-08-27 [facility] [id number] 08:40:00 08:40:00 [place] [employer] [place] [facility] Medicine Outpati ent Clinics 2019-08-22 2019-08-22 [facility] [id number] 09:20:00 09:20:00 [place] [employer] s - [employer] [facility] Medicine Outpati ent Clinics 2019-08-05 2019-08-05 [facility] [id number] 16:00:00 16:00:00 [place] [employer] s - [address] [facility] Medicine Outpati ent Clinics 2019-03-01 2019-03-01 [facility] [id number] 09:40:00 09:40:00 [place] [employer] s - [address] [facility] Medicine Outpati ent Clinics 2019-01-25 2019-01-25 [facility] [id number] 09:30:00 09:30:00 [place] [employer] [place] - [facility] Medicine Outpati ent Clinics 2018-10-26 2018-10-26 [facility] [id number] 09:30:00 09:30:00 t [facility] 2018-07-27 2018-07-27 [facility] [id number] 10:15:00 10:15:00 t [facility] ent [facility] 2018-05-01 2018-05-01 Appoint[facility]RISTINE [facility] [id number] Univers 09:15:00 09:15:00 t; ALFREDO, Division of it y of Reji [facility] MAbdoul ans 2018-05-01 2018-05-01 AppointCHRISTINE Junior [facility] [id number] Univers 08:45:00 08:45:00 t; ALONZO GONZALES, Division of ity of ALONZO WAGNER M.D. [facility] Physici ans 2018-04-27 2018-04-27 [facility] [id number] 10:15:00 10:15:00 t [facility] ent [facility] 2017-05-08 2017-05-08 Appointnessa EUGENE, CHRISTINE [facility] [id number] Univers 09:00:00 09:00:00 t; Meghan FUENTES M.D. [place] Bernice FUENTES M.D. ans 2017-02-28 2017-02-28 AppointCHRISTINE Lee [facility] [id number] Univers 09:45:00 09:45:00 t; Meghan FUENTES M.D. [place] Bernice FUENTES M.D. ans 2017-02-28 2017-02-28 AppointCHRISTINE Junior [facility] [id number] Univers 09:45:00 09:45:00 t; ALONZO GONZALES, i maddy of Reji WOODS M.D. Physici ans 2017-02-28 2017-02-28 AppointCHRISTINE Rogers [facility] [id number] Univers 09:30:00 09:30:00 t; Reji ASIF [place] HOPE, M.D. Physi ci ans Results Test Description Test Time Test Comments Results Result Comments Source [O] Urine Dipstick (In Office) 2018-05-01 10:25:00 Test Item Value Reference Range Interpretation Comme nts LEUKOCYTES (test code = LEUKOCYTES) Negative N NITRITE; Normal (test code = 02981-7) Negative N UROBILINOGEN; Normal (test code = 54671-7) 0.2 N PROTEIN (test code = 20882-1) 30 pH (test code = pH) 7.0 N URINE BLOOD (test code = 35348-4) Trace-Intact SPECIFIC GRAVITY; Normal (test code = 2965-2) 1.020 N KETONES; Normal (test code = 55010-2) Negative N BILIRUBIN; Normal (test code = 69380-9) Neative N GLUCOSE; Normal (test code = 1547-9) Negative N [facility] Physicians
--- OUTSIDE RECORDS SUMMARY | 2020-04-14 08:06 | XMS REPORT ---
[...] Date Status Dosage System Date Pantoprazole NDC 74489901759 40 MG Orally Active 1 tablet Sodium Once a day Lamictal NDC 80650770546 100 MG Orally Active 1 tab let Twice a day Clonazepam NDC 44961569576 0.5 MG Orally Oct 28, Active 1 t ablet on Once a day 2019 the tongue and allow to dissolve as needed for acute panic attacks Lexapro [facility] 76163553674 20 MG Orally Active 1 table t Once a day Gianvi [facility] 93177318026 3-0.02 MG Active 1 tablet Orally Once a day Seroquel [facility] 49103244838 50 MG Orally Active 1 tabl et Once a day at bedtime Afinitor [facility] 97897525508 5 MG Orally Active 1 table t Once a day Ondansetron HCl [facility] 34050485557 4 MG Orally one Acti ve as directed tablet by mouth every 4 hrs Cetirizine HCl [facility] 38060341519 10 MG Orally Active take 1 Once a day tablet by mouth every day as needed for allergies Fluconazole [facility] 87537312858 150 MG Orally 1 January Active 1 tablet dose today, march 16, 20202019 repeat dose in 1 week Results No Known Results Summary Purpose eClinicalWorks Submission
--- NOTE | 2020-04-14 09:49 | RAD REPORT ---
EXAM DESCRIPTION: US - Extremity Venous Uni Ltd - 04/14/2020 9:40 am CLINICAL HISTORY: PAIN Leg swelling and edema. COMPARISON: No comparisons FINDINGS: Left lower extremity venous system was interrogated with Doppler technique. Normal flow, c ompressibility and augmentation was noted. There is no DVT present. IMPRESSION: No evidence of left lower extremity deep venous thrombosis.
--- NOTE | 2020-04-14 10:05 | EDPHYS ---
Physician Documentation [facility] Name: Kitty Wall Age: 29 yrs Sex: Female : 1990 Arrival Date: 04/14/2020 Time: 07:47 Bed 23 Private MD: Shantelle Bates ED Physician Sawyer Sousa HPI: 04/14 09:54 This 29 yrs old Female presents to ER via Ambulatory with complaints of Leg pm1 Pain. 09:54 The patient presents with pain, that is acute. The complaints affect the left calf. pm1 Context: The problem was sustained at home, resulted from an unknown cause, the patient can fully bear weight, the patient is able to ambulate, Problem is a result from a previous injury: No. Onset: The symptoms/episode began/occurred 1 week(s) ago. Modifying factors: The symptoms are alleviated by elevating leg, the symptoms are aggravated by weight bearing, walking. Associated signs and symptoms: Pertinent positives: swelling, Pertinent negatives shortness of breath, chest pain. Treatment prior to arrival includes: no previous treatment. Severity of symptoms: in the emergency department the symptoms are unchanged. The patient has not experienced similar symptoms in the past. The patient has not recently seen a physician. Patient was concerned that she might have a blood clot and wanted to be evaluated. + control pill. Historical: - Allergies: 07:59 NKA; ss - PMHx: 07:59 Anxiety; Bipolar disorder; Depression; Kidney tumor; Schizophrenia; Seizures; ss - PSHx: 07:59 stimulator; R kidney removed; ss - Immunization history:: Adult Immunizations up to date. - Social history:: Smoking status: Patient/guardian denies using tobacco, but has a distant history of tobacco abuse. ROS: 09:54 Constitutional: Negative for fever, chills, and weight loss, Cardiovascular: Negative pm1 for chest pain, palpitations, and edema, Respiratory: Negative for shortness of breath, cough, wheezing, and pleuritic chest pain, Abdomen/GI: Negative for abdominal pain, nausea, vomiting, diarrhea, and constipation, Back: Negative for injury and pain. 09:54 Skin: Negative for injury, rash, and discoloration, Neuro: Negative for headache, weakness, numbness, tingling, and seizure. 09:54 MS/extremity: Positive for pain, of the left calf, Negative for decreased range of motion, deformity. Exam: 09:54 Constitutional: This is a well developed, well nourished patient who is awake, alert, pm1 and in no acute distress. Head/Face: Normocephalic, atraumatic. Neck: Trachea midline, no thyromegaly or masses palpated, and no cervical lymphadenopathy. Supple, full range of motion without nuchal rigidity, or vertebral point tenderness. No Meningismus. Chest/axilla: Normal chest wall appearance and motion. Nontender with no deformity. No lesions are appreciated. Cardiovascular: Regular rate and rhythm with a normal S1 and S2. No gallops, murmurs, or rubs. Normal PMI, no JVD. No pulse deficits. Respiratory: Lungs have equal breath sounds bilaterally, clear to auscultation and percussion. No rales, rhonchi or wheezes noted. No increased work of breathing, no retractions or nasal flaring. Abdomen/GI: Soft, non-tender, with normal bowel sounds. No distension or tympany. No guarding or rebound. No evidence of tenderness throughout. Back: No spinal tenderness. No costovertebral tenderness. Full range of motion. Skin: Warm, dry with normal turgor. Normal color with no rashes, no lesions, and no evidence of cellulitis. 09:54 Musculoskeletal/extremity: Extremities: grossly normal except: noted in the left calf: tenderness, There is no evidence of swelling, ROM: intact in all extremities, Circulation is intact in all extremities. Pulses: noted to be 2+ in the right dorsalis pedis artery and left dorsalis pedis artery, Sensation intact. 09:54 Neuro: Exam negative for acute changes, Orientation: is normal, Motor: is normal, moves all fours, Sensation: is normal, no obvious gross deficits. Vital Signs: 07:56 BP 132 / 95; Pulse 106; Resp 18; Temp 98.9(TE); Pulse Ox 99% on R/A; Height 5 ft. 1 in. ss (154.94 cm); Pain 10/10; MDM: 08:01 Patient medically screened. pm1 10:03 Data reviewed: vital signs. Data interpreted: Pulse oximetry: on room air is 99 %. pm1 Interpretation: normal. 10:03 Counseling: I had a detailed discussion with the patient and/or guardian regarding: the pm1 historical points, exam findings, and any diagnostic results supporting the discharge/admit diagnosis, radiology results, the need for outpatient follow up, to return to the emergency department if symptoms worsen or persist or if there are any questions or concerns that arise at home. 04/14 08:18 Order name: Extremity Venous Uni Ltd ; Complete Time: 09:54 pm1 Administered Medications: No medications were administered Disposition: 19:29 Co-signature as Attending Physician, Sawyer Sousa MD. 7 Disposition: 04/14/20 10:04 Discharged to Home. Impression: Pain in left lower leg. - Condition is Stable. - Discharge Instructions: Musculoskeletal Pain. - Prescriptions for Cyclobenzaprine 10 mg Oral Tablet - take 1 tablet by ORAL route every 8 hours As needed; 30 tablet. Diclofenac Sodium 75 mg Oral Tablet, Delayed Release (E.C.) - take 1 tablet by ORAL route 2 times per day As needed; 30 tablet. - Medication Reconciliation Form, Thank You Letter, Antibiotic Education, Prescription Opioid Use form. - Follow up: Emergency Department; When: As needed; Reason: Worsening of condition. Follow up: Private Physician; When: 2 - 3 days; Reason: Recheck today's complaints, Continuance of care, Re-evaluation by your physician. - Problem is new. - Symptoms have improved. Signatures: Dispatcher [employer] EDMS Zhanna Marquez RN RN ss Lobo Saleh, FILM REPLACEMENT ORDERER FILM REPLACEMENT ORDERER pm1 Sawyer Sousa MD MD 7 Corrections: (The following items were deleted from the chart) 10:23 10:04 04/14/2020 10:04 Discharged to Home. Impression: Pain in left lower leg. ss Condition is Stable. Forms are Medication Reconciliation Form, Thank You Letter, Antibiotic Education, Prescription Opioid Use. Follow up: Emergency Department; When: As needed; Reason: Worsening of condition. Follow up: Private Physician; When: 2 - 3 days; Reason: Recheck today's complaints, Continuance of care, Re-evaluation by your physician. Problem is new. Symptoms have improved. pm1
--- NOTE | 2020-04-14 10:05 | ER ---
Nurse's Notes [facility] Name: Kitty Wall Age: 29 yrs Sex: Female : 1990 Arrival Date: 04/14/2020 Time: 07:47 Bed 23 Private MD: Shantelle Bates Diagnosis: Pain in left lower leg Presentation: 04/14 07:56 Chief complaint: Patient states: L lower leg pain x 1 week. Became worse yesterday. "I ss think it's fluid.". Coronavirus screen: Proceed with normal triage. Patient denies a cough. Patient denies shortness of breath or difficulty breathing. Patient denies measured and/or subjective temperature greater than 100.4F prior to today's visit. Patient denies travel on a cruise ship or to a country the [facility] currently lists as an affected area. Patient denies contact with known and/or suspected case of COVID-19. Ebola Screen: Patient denies exposure to infectious person. Patient denies travel to an Ebola-affected area in the 21 days before illness onset. Initial Sepsis Screen: Does the patient meet any 2 criteria? No. Patient's initial sepsis screen is negative. Does the patient have a suspected source of infection? No. Patient's initial sepsis screen is negative. Risk Assessment: Do you want to hurt yourself or someone else? Patient reports no desire to harm self or others. Onset of symptoms was April 06, 2020. 07:56 Method Of Arrival: Ambulatory ss 07:56 Acuity: GULSHAN 4 ss Historical: - Allergies: 07:59 NKA; ss - PMHx: 07:59 Anxiety; Bipolar disorder; Depression; Kidney tumor; Schizophrenia; Seizures; ss - PSHx: 07:59 stimulator; R kidney removed; ss - Immunization history:: Adult Immunizations up to date. - Social history:: Smoking status: Patient/guardian denies using tobacco, but has a distant history of tobacco abuse. Screenin:59 Abuse screen: Denies threats or abuse. Denies injuries from another. Nutritional ss screening: No deficits noted. Tuberculosis screening: Never had TB. Fall Risk None identified. Assessment: 07:59 General: Behavior is cooperative, anxious, Denies fever, feeling ill, fatigue, chills. ss Pain: Complains of pain in left calf Pain currently is 10 out of 10 on a pain scale. Quality of pain is described as aching, Pain began 1 week ago Is continuous. Neuro: Level of Consciousness is awake, alert, obeys commands, Oriented to person, place, time, situation, Denies weakness blurred vision dizziness. Cardiovascular: Capillary refill < 3 seconds is brisk in bilateral fingers. Respiratory: Airway is patent Respiratory effort is even, unlabored, Respiratory pattern is regular, symmetrical, Breath sounds are clear bilaterally. Denies cough, shortness of breath labored breathing, pain with respiration, pain with cough, pain with movement. GI: Abdomen is flat, non-distended, Patient currently denies diarrhea. GI: Reports nausea. : No signs and/or symptoms were reported regarding the genitourinary system. EENT: Nares are clear Oral mucosa is moist. Throat is clear. Derm: Skin is intact, is healthy with good turgor, Skin is dry, Skin is pink, warm \\T\\ dry. normal. Musculoskeletal: Circulation, motion, and sensation intact. Range of motion: intact in all extremities, Swelling absent. 09:38 Reassessment: Pt in ultrasound at this time. Vital Signs: 07:56 BP 132 / 95; Pulse 106; Resp 18; Temp 98.9(TE); Pulse Ox 99% on R/A; Height 5 ft. 1 in. ss (154.94 cm); Pain 10/10; ED Course: 07:47 Patient arrived in ED. mr 07:48 Shantelle Bates MD is Private Physician. mr 07:58 Triage completed. ss 07:59 Arm band placed on right wrist. ss 07:59 Patient has correct armband on for positive identification. Bed in low position. Call ss light in reach. 08:00 Debbie Saleh NP is PHCP. pm1 08:00 Sawyer Sousa MD is Attending Physician. pm1 08:23 Zhanna Marquez RN is Primary Nurse. ss 09:41 Extremity Venous Uni Ltd US In Process Unspecified. EDMS 09:49 Ultrasound completed. Patient tolerated well. Note: prelim given to debbie. Patient lc3 moved back from ultrasound. 10:22 No provider procedures requiring assistance completed. Patient did not have IV access ss during this emergency room visit. Administered Medications: No medications were administered Outcome: 10:04 Discharge ordered by . pm1 10:22 Discharged to home ambulatory. ss 10:22 Condition: good 10:22 Discharge instructions given to patient, family, Instructed on discharge instructions, follow up and referral plans. medication usage, Demonstrated understanding of instructions, follow-up care, medications, Prescriptions given X 2. 10:23 Patient left the ED. Signatures: Dispatcher [employer] SOTERO VinayakPatricia Shelby, RN RN Danny Mckeon Patrick, AED TRAINER AED TRAINER pm1
[2020-04-14 10:27] VITALS: BP 132/95; TEMP 98.9; O2SAT 99
== END 2020-04-14 10:23 | disposition home or self-care (01) ==
LOC: ER 07:44
DX: M79.662 Pain in left lower leg (principal)
CPT/HCPCS: 93971; 99284

== ENCOUNTER 2020-05-15 20:12 | Emergency (ER) | payer MEDICAID, SELFPAY ==
--- OUTSIDE RECORDS SUMMARY | 2020-05-15 20:14 | XMS REPORT | Continuity of Care Document ---
:1990 Author Organization [facility] t Address [address] [place] [address] Care Team Providers Name Role Phone Johnny SIMS, Olimpia Wagner Attending Clinician Unavailable Sonya HUERTA, Rp Attending Clinician Florin QUILESW Attending Clinician Derrick HUERTA Attending Clinician Jennifer DISTRICT SERVICE MANAGER Attending Clinician Doctor Unassigned, Name Attending Clinician [...] Unive rs sclerosis sclerosis HL7.CCDAR2 [facility] [place] [facility] Localz-rlt Localz-rlt Problem Active U nivers d d HL7.CCDAR2 [place] c epilepsy c epilepsy Ph ysici w complx w complx ans part sz, part sz, notintrac, notintrac, w status w status Angiomyoli Angiomyoli Problem Active [facility] left left [facility] kidney kidney l Outpati ent Clinics Seizures Seizures [facility] Depression Depression Problem Active [facility] with with [facility] anxiety anxiety Mem[facility] l [facility] ent Clinics 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 - addiction addiction Erasmo idania l Outpati ent Clinics Seizure Seizure Problem Active [facility] disorder disorder [facility] 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 [facility] of kidney of kidney Erasmo idania l Outpati ent Clinics BCP ( BCP ( Problem Active [facility] control control [facility] - pills) pills) Memoria initiation initiation l Outpati ent Clinics Back pain Back pain Problem Active [facility] Obesity Obesity Problem [facility] Insomnia Insomnia Problem [facility] 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 [facility] 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[facility] mental mental [facility] - retardatio retardatio Me moria n n l Outpati ent Clinics Gastroesop Gastroesop Problem Active [facility] hageal hageal [facility] - reflux reflux Memoria disease disease l without without Outpati esophagiti esophagiti en t s s Clinics Uses Uses Problem Active [facility] control control [facility] Onychomyco Onychomyco Problem Active [facility] sis sis [facility] Panic Panic Problem Active [facility] attacks attacks [facility] Seasonal Seasonal Problem Active [facility] allergies allergies [facility] - [facility] Exposure Exposure Problem Active [facility] to [facility] - sexually sexually Memori a transmitte transmitte l d disease d disease Outp ati (STD) (STD) ent Clinics Acne Acne Problem Active [facility] rosacea rosacea [facility] Allergies, Adverse Reactions, Alerts This patient has no known allergies or adverse reactions. Social History Smoking Status Start Date Stop Date Source Never smoker [facility] Physicians Medications Ordered Filled Start Stop Current Ordering Indication Dosage Frequency Signature Comments Components Source Medication Medication Date Date Medication? Clinician (SIG) Name Name Afinitor 5 Afinitor 5 Yes ALFREDO TAKE [...] Bates [address] [facility] Immunizations Ordered Filled Immunization Date Status Comments Sourc e Immunization Name Name Afluria single dose Afluria single dose 2019-08-[address] [facility] - 00:00:00 [facility] Flucelvax - single Flucelvax - single 2018-10-[address] [facility] - dose syringe dose syringe 00:00:00 [facility] Vital Signs Vital Name Observation Time Observation Value Comments Source BP Systolic 2018-05-01 10:10:00 109 mm[Hg] [facility] Physician s BP Diastolic 2018-05-01 10:10:00 76 mm[Hg] [facility] Physician s Height 2018-05-01 10:10:00 154 cm [facility] Physician s Weight 2018-05-01 10:10:00 67.7 kg [facility] Physician s Body Mass Index 2018-05-01 10:10:00 28.55 kg/m2 [facility] Phys[facility] s Temperature 2018-05-01 10:10:00 96.5 [degF] [facility] Physician s Heart Rate 2018-05-01 10:10:00 91 /min [facility] Physician s Head Circumference 2018-05-01 10:10:00 54.7 cm [facility] [place] Phys[facility] s Procedures Procedure Date / Time Performing Clinician Source Performed EKG w/Rhythm Strip 2018-04-17 00:00:00 [facility] Physicians [QLH] CBC (INCLUDES 2018-04-17 00:00:00 [facility] DIFF/PLT) Physicians [QLH] CMP W/EGFR 2018-04-17 00:00:00 [facility] Physicians [Q] EVEROLIMUS, BLOOD 2018-04-17 00:00:00 [facility] Physicians [QLH] LIPID PANEL 2018-04-17 00:00:00 [facility] Physicians [QLH] PHOSPHATE ( 2018-04-17 00:00:00 [facility] PHOSPHORUS) Physicians [QLH] PTH, INTACT 2018-04-17 00:00:00 [facility] (WITHOUT CALCIUM) Physicians [QLH] LAMOTRIGINE 2018-04-17 00:00:00 [facility] Physicians MRI Brain w/wo contrast 2018-04-17 00:00:00 [facility] [address] Abdomen w/wo 2018-04-17 00:00:00 [facility] contrast [id number] Physicians Encounters Start End Encounter Admission Attending Care Care Encounter Source Date/Time Date/Time Type Type Clinicians Facility Department ID 2020-05-15 2020-05-15 Patient Johnny CINDY 1.2.840.114 [id number] 00:00:00 00:00:00 Outreach Charissa Doan 350.1.13.10 K BUILDING 4.2.7.2.686 [id number] 2020-05-11 2020-05-11 [facility] [id number] [facility] 16:25:00 16:25:00 [facility] Medicine Outpati ent Clinics 2020-05-08 2020-05-08 Telemedici SonyaClement 1.2.840.11 [id number] 08:00:29 08:20:29 ne Visit Rp H 350.1.13.10 BUILDING 4.2.7.2.686 [id number] 2020-05-08 2020-05-08 Patient CatherineLAURA 1.2.840.114 [id number] 00:00:00 00:00:00 Outreach [employer] 350.1.13.10 Cancer 4.2.7.2.686 [place] - [id number] [facility] 081 2020-05-01 2020-05-01 [facility] [id number] 13:06:00 13:06:00 t Iuka Infoflow s - Endoclear [facility] Medicine Outpati ent Clinics 2020-04-29 2020-04-29 Telephone Clement HassanDONTAFidel 1.2.840.114 [id number] 00:00:00 00:00:00 Rp H 350.1.13.10 [facility] 4.2.7.2.686 [id number] 2020-04-23 2020-04-23 [facility] [id number] 14:25:00 14:25:00 t Iuka Iuka Endoclear LuCasengo s - Endoclear [facility] Medicine Outpati ent Clinics 2020-04-16 2020-04-16 [facility] [id number] 13:06:00 13:06:00 t Iuka Iuka Endoclear LuCasengo s - Endoclear [facility] Medicine Outpati ent Clinics 2020-04-16 2020-04-16 [facility] [id number] 10:40:00 10:40:00 t Iuka Iuka Endoclear LuCasengo s - Endoclear [facility] Medicine Outpati ent Clinics 2020-04-13 2020-04-13 [facility] [id number] 13:19:00 13:19:00 t Iuka Iuka Endoclear LuCasengo s - Endoclear [facility] Medicine Outpati ent Clinics 2020-04-13 2020-04-13 [facility] [id number] 11:29:00 11:29:00 t Iuka Infoflow s - Endoclear [facility] Medicine Outpati ent Clinics 2020-04-02 2020-04-02 Telephone Clement HassanDONTAFidel 1.2.840.114 [id number] 00:00:00 00:00:00 Rp H 350.1.13.10 [facility] 4.2.7.2.686 [id number] 2020-04-01 2020-04-[facility] 1.2.840.114 [id number] 08:16:39 09:16:39 ne Visit Tara MULTISPEC 350.1.13.10 IALTY 4.2.7.2.686 [place] [id number] [facility] 2020-03-27 2020-03-27 Telemedici Sonya Nathenmikie WHITE 1.2.840.11 [id number] 07:50:37 08:10:37 ne Visit Rp H 350.1.13.10 BUILDING 4.2.7.2.686 [id number] 2020-03-26 2020-03-26 Telephone Derrick [facility] [id number] 00:00:00 00:00:00 Tara MULTISPEC 350.1.13.10 [facility] 4.2.7.2.686 [place] [id number] [facility] 2020-03-18 2020-03-18 Telephone Jesika Rodriguez [facility] 1.2.840.114 [id number] 00:00:00 00:00:00 Y HEALTH 350.1.13.10 CLINICS 4.2.7.2.686 [id number] 082020-03-17 2020-03-17 Telephone Jesika Rodriguez [facility] 1.2.840.114 [id number] 00:00:00 00:00:00 Y HEALTH 350.1.13.10 CLINICS 4.2.7.2.686 [id number] 2020-02-24 2020-02-24 Telephone Jesika Rodriguez [facility] 1.2.840.114 [id number] 00:00:00 00:00:00 Y HEALTH 350.1.13.10 CLINICS 4.2.7.2.686 [id number] 2020-02-17 2020-02-17 Telephone Jesika Rodriguez [facility] 1.2.840.114 [id number] 00:00:00 00:00:00 Y HEALTH 350.1.13.10 CLINICS 4.2.7.2.686 [id number] 2020-01-27 2020-01-27 Telephone Jesika Rodriguez 1.2.840.114 [id number] 00:00:00 00:00:00 H 350.1.13.10 BUILDING 4.2.7.2.686 [id number] 2020-01-24 2020-01-24 Telephone Jesika Rodriguez 1.2.840.114 [id number] 00:00:00 00:00:00 Y HEALTH 350.1.13.10 [facility] 4.2.7.2.686 [id number] 2020-01-24 2020-01-24 Telephone Jesika Rodriguez 1.2.840.114 [id number] 00:00:00 00:00:00 Y HEALTH 350.1.13.10 [facility] 4.2.7.2.686 [id number] 2020-01-20 2020-01-20 Telephone Clement Hassan 1.2.840.114 [id number] 00:00:00 00:00:00 Rp H 350.1.13.10 BUILDING 4.2.7.2.686 [id number] 2020-01-20 2020-01-20 Orders Doctor PAOLA 1.2.840.114 [id number] 00:00:00 00:00:00 Only Unassigned, RISSA 350.1.13.10 [place] [facility] 4.2.7.2.686 [id number] 2020-01-17 2020-01-17 Office Clement Hassan 1.2.840.114 [id number] 08:44:32 10:16:47 Visit Rp H 350.1.13.10 BUILDING 4.2.7.2.686 [id number] 2020-01-15 2020-01-15 [facility] [id number] 12:20:00 12:20:00 t [employer] [place] [facility] 2020-01-08 2020-01-08 [facility] [id number] 08:53:00 08:53:00 t [employer] s - Endoclear [facility] Medicine Outpati ent Clinics 2019-10-28 2019-10-28 [facility] [id number] 09:40:00 09:40:00 t [employer] s - Endoclear [facility] Medicine Outpati ent Clinics 2019-09-03 2019-09-03 [facility] [id number] 16:57:00 16:57:[address] Luke [facility] - Drive [facility] Medicine Outpati ent Clinics 2019-08-27 2019-08-27 [facility] [id number] 08:40:00 08:40:[address] Luke s - Drive [facility] Medicine Outpati ent Clinics 2019-08-22 2019-08-22 [facility] [id number] 09:20:00 09:20:[address] Luke s - Drive [facility] Medicine Outpati ent Clinics 2019-08-05 2019-08-05 [facility] [id number] 16:00:00 16:00:[address] Luke s - Drive [facility] Medicine Outpati ent Clinics 2019-03-01 2019-03-01 [facility] [id number] 09:40:00 09:40:[address] Luke s - Drive [facility] Medicine Outpati ent Clinics 2019-01-25 2019-01-25 [facility] [id number] 09:30:00 09:30:[address] Luke s - Drive [facility] Medicine Outpati ent Clinics 2018-10-26 2018-10-26 [facility] [id number] 09:30:00 09:30:[address] Luke s - Drive [facility] Medicine Outpati ent Clinics 2018-07-27 2018-07-27 [facility] [id number] 10:15:00 10:15:00 t Iuka Iuka Endoclear LuCasengo s - Drive [facility] Medicine Outpati ent Clinics 2018-05-01 2018-05-01 [facility] [id number] Univers 09:15:00 09:15:00 t; ALFREDO, Division of it y of Reji [facility]E [facility] ALFREDO Genetics Physici Reji [facility] 2018-05-01 2018-05-01 [facility] [id number] Univers 08:45:00 08:45:00 t; ALONZO GONZALES, Division of keesha of ALONZO WAGNER M.D. [facility] Jesus Mendoza Genetics Physici ans 2018-04-27 2018-04-27 [facility] [id number] 10:15:00 10:15:00 t Iuka [employer] [facility] 2017-05-08 2017-05-08 AppointCHRISTINE Lee UTP [id number] Univers 09:00:00 09:00:00 t; Meghan FUENTES M.D. [place] Bernice FUENTES M.D. ans 2017-02-28 2017-02-28 AppointCHRISTINE Lee UTP [id number] Univers 09:45:00 09:45:00 t; Meghan FUENTES M.D. [place] Bernice FUENTES M.D. ans 2017-02-28 2017-02-28 [facility] CHRISTINE GONZALES UTP [id number] Univers 09:45:00 09:45:00 t; ALONZO GONZALES, i ty of Reji WOODS M.D. Physici ans 2017-02-28 2017-02-28 AppointCHRISTINE Rogers UTP [id number] Univers 09:30:00 09:30:00 t; Reji ASIFRUPJesus M.D. Physi ci ans Results Test Description Test Time Test Comments Results Result Comments Source [O] Urine Dipstick (In Office) 2018-05-01 10:25:00 Test Item Value Reference Range Interpretation Comme nts LEUKOCYTES (test code = LEUKOCYTES) Negative N NITRITE; Normal (test code = 89479-2) Negative N UROBILINOGEN; Normal (test code = 08710-1) 0.2 N PROTEIN (test code = 89778-9) 30 pH (test code = pH) 7.0 N URINE BLOOD (test code = 65039-3) Trace-Intact SPECIFIC GRAVITY; Normal (test code = 2965-2) 1.020 N KETONES; Normal (test code = 62631-3) Negative N BILIRUBIN; Normal (test code = 42425-8) Neative N GLUCOSE; Normal (test code = 1547-9) Negative N [facility]
--- OUTSIDE RECORDS SUMMARY | 2020-05-15 20:15 | XMS REPORT ---
[...] Date Status Dosage System Date Pantoprazole NDC 15913502204 40 MG Orally Active 1 tablet Sodium Once a day Lamictal NDC 15880324746 100 MG Orally Active 1 tab let Twice a day Clonazepam NDC 54367048342 0.5 MG Orally Oct 28, Active 1 t ablet on Once a day 2019 the tongue and allow to dissolve as needed for acute panic attacks Lexapro [facility] 30336529721 20 MG Orally Active 1 table t Once a day Gianvi [facility] 73786075151 3-0.02 MG Active 1 tablet Orally Once a day Seroquel [facility] 22402738213 50 MG Orally Active 1 tabl et Once a day at bedtime Afinitor [facility] 02959818512 5 MG Orally Active 1 table t Once a day Ondansetron HCl [facility] 54379946452 4 MG Orally one Acti ve as directed tablet by mouth every 4 hrs Cetirizine HCl [facility] 03600163980 10 MG Orally Active take 1 Once a day tablet by mouth every day as needed for allergies Fluconazole [facility] 31936539561 150 MG Orally 1 January Active 1 tablet dose today, march 16, 20202019 repeat dose in 1 week Results No Known Results Summary Purpose eClinicalWorks Submission
--- OUTSIDE RECORDS SUMMARY | 2020-05-15 20:18 | XMS REPORT ---
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 Problem Benign neoplasm of kidney D30.00 Ac tive Problem Exposure to sexually transmitted Z20.2 Active disease (STD) Problem Seasonal allergies J30.2 Active Problem 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 Problem Uses control Z30.9 Active Problem BCP ( control pills) Z30.011 Ac tive initiation Problem Panic attacks F41.0 Active Problem Onychomycosis B35.1 Active Problem Seizure disorder G40.909 Active Problem Insomnia G47.00 Active Problem Back pain M54.9 Active Problem Depression with anxiety F41.8 Acti ve Problem Seizures R56.9 Active Problem Obesity E66.9 Active Problem Moderate mental retardation F71 Active Problem 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
--- OUTSIDE RECORDS SUMMARY | 2020-05-15 20:18 | XMS REPORT ---
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
--- OUTSIDE RECORDS SUMMARY | 2020-05-15 20:18 | XMS REPORT ---
:1990 Author Organization eClinicalWorks Care Team Providers Name Role Phone Bates, Na Provider Role Unavailable Allergies, Adverse Reactions, Alerts Substance Reaction Event Type N.K.D.A. 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 Problem Benign neoplasm of kidney D30.00 Ac tive Problem Exposure to sexually transmitted Z20.2 Active disease (STD) Problem Seasonal allergies J30.2 Active Assessment Dysuria R30.0 Active Assessment Routine gynecological examination Z01.419 Active Problem 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 Assessment Gastroesophageal reflux disease K21.9 Active without esophagitis Problem Uses control Z30.9 Active Problem BCP [...] Start End Status Dosage System Date Date Seroquel [facility] 01422781753 50 MG Orally Active 1 tabl et Once a day at bedtime Lexapro [facility] 42635593986 20 MG Orally Active 1 table t Once a day Gianvi [facility] 49848416381 3-0.02 MG Active 1 tablet Orally Once a day Macrobid [facility] 89776770088 100 MG Orally April 16April Active 1 ca psule every 12 hrs 2019 11, with food 2019 Cetirizine HCl [facility] 74407259562 10 MG Orally Active take 1 Once a day tablet by mouth every day as needed for allergies Afinitor ND 53544003063 5 MG Orally Active 1 table t Once a day Lamictal ND 03625639688 100 MG Orally Active 1 tab let Twice a day Pantoprazole [facility] 25081115083 40 MG Orally Active 1 tablet Sodium Once a day Ondansetron HCl [facility] 44831031412 4 MG Orally one Acti ve as directed tablet by mouth every 4 hrs Clonazepam [facility] 62467981899 0.5 MG Orally Oct 28 1 t ablet on Once a day 2018 the tongue and allow to dissolve as needed for acute panic attacks Results Name Result Date Reference Range Unit Abnormali ty Flag URINALYSIS AUTO W/O SCOPE (35464) ----RAOUL neg [id number] ----NIT neg 20200416 ----PROTEIN 3+ 20200416 ----pH 6.5 20200416 ----GLUCOSE neg 20200416 ----KETONES neg 20200416 ----SPECIFIC GRAVITY 1.020 20200416 ----BLO trace- lysed 20200416 Summary Purpose eClinicalWorks Submission
--- OUTSIDE RECORDS SUMMARY | 2020-05-15 20:19 | XMS REPORT | Summary of Care ---
:1990 Author Organization [facility] Address [address] [place] [address] Care Team Providers Name Role Phone Corrine Bates Primary Care Provider [employer] Insurance Hmo Reason for Visit Reason Comments Social Work Encounter Details Date Type Department Care Team Description 05/08/2020 Patient Outreach [facility] Cancer Marylou Catherine cca, MANAGER SALES SUPPORT [facility] [address] [place] [address] [address] [place] [address] South, 2nd floor [phone] [place] [address] Allergies No Known Allergiesdocumented as of this encounter (statuses as of 05/08/2020) Medications Medication Sig Dispensed Refills Start Date [...] as of this encounter (statuses as of 05/08/2020) Active Problems Problem Noted Date Status post nephrectomy 12/05/2019 Pulmonary nodules 12/05/2019 Renal mass 10/02/2019 Overview: Added automatically from request for luz maria vel [id number] 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 Sent provider a staff message with instructions for entering F2F documentation, which is required by [facility] prior to ordering HH services. Please re-consult SW when this documentation is complete. Greta Catherine LCSW, [facility] Financial Aid Director, Social Work Office Citizen Of [place] proficient documented in this encounter Plan of Treatment Date Type Specialty Care Team Description 05/28/2020 Office Visit Urology Tonya Boyle MD [address] [place], [place] [address] [phone] 06/01/2020 Appointment Radiology Jania Earl, GENERAL INTERNIST [address] [facility] [address] [place], [place] [address] 11/30/2020 Appointment Radiology Jania Earl, GENERAL INTERNIST [address] [facility] [address] [place], [place] [address] Health Maintenance Due Date Last Done Comments VARICELLA VACCINES (1 of 2 - 1991 2-dose childhood series) DTaP,Tdap,and Td Vaccines (1 - 2001 Tdap) PAP SMEAR 2011 Depression Screening 01/16/2021 01/17/2020 INFLUENZA VACCINE Completed 10/01/2019 PNEUMOCOCCAL 0-64 YEARS COMBINED Aged Out No longer eligible based on SERIES patient's age to complete this topic documented as of this encounter Implants Implanted Type Area Forklift Supervisor Device Shelf Model / Identifier Expiration Date Ser ial / Lot Mynx Right: Arrow 07/13/2021 [id number] / Implanted: Qty: 1 on 09/27/2019 at [facility] Aubrey [id number] / [id number] documented as of this encounter Results Not on filedocumented in this encounter Insurance Payer Benefit Plan / Subscriber ID Effective Phone Address T e Group Dates TOBIN RUDD xxxxxxxxx 2015-Caitlyn MARC [place] [address] MA[place]GED MEDICAID [place], [place] documented as of this encounter
--- OUTSIDE RECORDS SUMMARY | 2020-05-15 20:19 | XMS REPORT ---
[...] sexually transmitted Z20.2 Active disease (STD) Assessment Insomnia G47.00 Active Problem Seasonal allergies J30.2 Active Problem Acne [...] K21.9 Active without esophagitis Medications Medication Code System Code Instructions Start End Date Status Dos age Date Seroquel [facility] 90716024192 25 MG Orally Inactive 1 tab let Once a day at bedtime Results No Known Results Summary Purpose eClinicalWorks Submission
--- OUTSIDE RECORDS SUMMARY | 2020-05-15 20:19 | XMS REPORT | Summary of Care ---
:1990 Author Organization [facility] Address [address] [place] [address] Care Team Providers Name Role Phone Corrine Bates Primary Care Provider [employer] Insurance Hmo Reason for Visit Reason Comments Notification Encounter Details Date Type Department Care Team Description 04/29/2020 Telephone [facility] Clement Hassan Rp, M D Notification Hematology-Oncology - [address] [place] [address] [address] [facility] [phone] [facility], [phone] ( Fax) [address] [place] [address] Allergies No Known Allergiesdocumented as of this encounter (statuses as of 05/01/2020) Medications Medication Sig Dispensed Refills Start Date [...] as of this encounter (statuses as of 05/01/2020) Active Problems Problem Noted Date Status post nephrectomy 12/05/2019 Pulmonary nodules 12/05/2019 Renal mass 10/02/2019 Overview: Added automatically from request for luz maria vel [id number] 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 Overview: Added automatically from request for luz maria vel [id number] Obesity (BMI 30-39.9) 09/27/2019 Mass of right kidney 09/26/2019 documented as of this encounter (statuses as of 05/01/2020) Immunizations Name Administration Dates Next Due Influenza [...] Treatment Date Type Specialty Care Team Description 05/08/2020 Office Visit Oncology Clement Hassan Rp, M D [address] [place] [address] 05/28/2020 Office Visit Urology Tonya Boyle MD [address] [facility] [place] [phone] 06/01/2020 Appointment Radiology Jania Earl, HAND SIZER [address] [facility] [address] [place] [address] [phone] 11/30/2020 Appointment Radiology Jania Earl, HAND SIZER [address] [facility] [address] [place] [address] [phone] Health Maintenance Due Date Last Done Comments VARICELLA VACCINES (1 of 2 - 1991 2-dose childhood series) DTaP,Tdap,and Td Vaccines (1 - 2001 Tdap) PAP SMEAR 2011 Depression Screening 01/16/2021 01/17/2020 INFLUENZA VACCINE Completed 10/01/2019 PNEUMOCOCCAL 0-64 YEARS COMBINED Aged Out No longer eligible based on SERIES patient's age to complete this topic documented as of this encounter Implants Implanted Type Area Warp Tying Machine Knotter Device Shelf Model / Identifier Expiration Date Ser ial / Lot Mynx Right: Arrow 07/13/2021 [id number] / Implanted: Qty: 1 on 09/27/2019 at [facility] Christenin [id number] / [id number] documented as of this encounter Results Not on filedocumented in this encounter Insurance Payer Benefit Plan / Subscriber ID Effective Phone Address T [facility] [employer] [facility] Group Dates TOBIN RUDD xxxxxxxxx 2015-Caitlyn MARC [facility] [place] [place] [address] MANAGED MEDICAID [place] documented as of this encounter
--- OUTSIDE RECORDS SUMMARY | 2020-05-15 20:20 | XMS REPORT | Summary of Care ---
:1990 Author Organization [facility] Address [address] [place] [address] Care Team Providers Name Role Phone Corrine Bates Primary Care Provider [employer] Insurance Hmo Reason for Visit Reason Comments Other angiomyolipoma Encounter Details Date Type Department Care Team Description 05/08/2020 Telemedicine Visit [facility] Clement Hassan Rp, Angiomy olipoma of both kidneys (Primary Dx); Hematology-Oncol Iron deficiency; [address] B12 deficiency; [address] [place] [address] Normocytic anemia; Drive [place], [place] Fatigue, unspecified type; [facility] [address] 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 [facility], [address] [phone] [address] [place], [place] (Fax) [phone] Allergies No Known Allergiesdocumented as of this encounter (statuses as of 05/13/2020) Medications Medication Sig Dispensed Refills Start Date [...] as of this encounter (statuses as of 05/13/2020) Active Problems Problem Noted Date Status post nephrectomy 12/05/2019 Pulmonary nodules 12/05/2019 Renal mass 10/02/2019 Overview: Added automatically from request for luz maria crowder [id number] 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 Overview: Added automatically from request for luz maria crowder [id number] Obesity (BMI 30-39.9) 09/27/2019 Mass of right kidney 09/26/2019 documented as of this encounter (statuses as of 05/13/2020) Immunizations Name Administration Dates Next Due Influenza [...] on filedocumented in this encounter Progress Notes Jesika Rodriguez NP - 05/08/2020 11:00 AM CDT [facility] HEMATOLOGY/ONCOLOGY CLINIC FaceToFace Home Health Order FaceToFace Home Health Order I performed telehealth visit with patient Kitty Wall in the [facility] on 05/08/2020 for the following medical conditions and is the primary reason for home health care: ICD-10-CM ICD-9-CM 1. Angiomyolipoma of both kidneys D17.71 214.3 2. Iron deficiency E61.1 280.9 3. B12 deficiency E53.8 266.2 4. Normocytic anemia D64.9 285.9 5. Fatigue, unspecified type R53.83 780.79 6. Immunodeficiency due to treatment with immunosuppressive medication Z79.899 V58.69 I certify, based on my findings, that the following services are medically necessary: Detention: No Physical therapy: No Occupational therapy: No Speech language pathology: No Certified Home Health Aid: Yes, needs routine phlebotomy done at home Home Health Agency Supervisor Shipping Room: Yes - Evaluate and Treat Kitty Wall has the following additional diagnoses: No problems updated. I certify my clinical findings/ diagnoses support that this patient is homebound per CMS guidelines: A taxing effort exists for Kitty Wall to leave home due to: Poor endurance due to: immunosuppressant status while on active treatment for angiomyolipoma I certify that this patient is under the care of the [facility] HEMATOLOGY ONCOLOGY [facility] andthat I had a [id number] encounter that meets the CMS [id number] requirements with this patient as noted above. Jesika Rodriguez, 05/08/20 Faculty Physician: Dr. Clement Hassan 05/08/20 VISIT TYPE: Verbal consent obtained from Patient: Kitty Wall due to the COVID-19 pandemic for telehealth services provided below. Communication with patient was conducted via Telephone due to patient unable to obtain video call option. Interview conducted with sister/JOHNSON Ashford. Location of Patient: Home Location of Provider: Clinic Date of Service: 05/08/20 PCP: Dr. Bates CONSULTANTS: Urology, Nephrology, Neurology, Genetics CC: Angiomyolipoma DIAGNOSIS: Tuberous Sclerosis, Angiomyolipoma (AML) of Bilateral Kidneys, s/p Right Nephrectomy, Anemia, Menorrhagia, Seizure HISTORY OF PRESENT ILLNESS Kitty Wall is a 29 year old female with PMH listed as below referred here for Everolimus therapy consideration for angiomyolipoma. Medical information obtained from sister/medical power of regulatory attorney Kacy and patient. 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 Previously she was treatedwith Everolimus for 2 years without much tumor shrinkage from AML. She had renal artery embolizations x2 ( 2015, 2018 ). She experienced one month duration of [...] and brother have AML. Interim History: She finally started on Afinitor on 03/29/20 after [facility] had hard time reaching her for delivery. She denies any major symptoms other than her baseline fatigue. She remains on iron and B12 supplements. She denies any urinary symptoms or flank pain at present. Her SOB remains stable. Denies CP, palpitation. 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 [...] file Gets together: Not on file Attends congregational service: Not on file Active member of [...] sclerosis) Father Hypothyroidism Other Stroke Maternal Aunt [place] (myocardial infarction) Maternal Aunt REVIEW OF SYSTEMS [...] -Tuberous Sclerosis -Angiomyolipoma -CKD -s/p Right Nephrectomy No hematuria or other urinary symptoms at present. Restarted on Everolimus on 03/29/20, reports good tolerance. But she still hasn't had labs done as required due to covid 19 concern. Sister Jada ORNELAS expressed big concerns of patient's high risk for catching infection and requests home health to come to the house for labs. Will look into this as an alternative option. Consult social services manager for set ups. Discussed at lengthon importance of labs while on treatment early detection of complications. Explained to sister and patient that the next follow up will need to take place in person for better assessment. May consider restaging scan in few months. Sister verbalizes understanding. We discussed importance of nephrotoxic drug avoidance. She is encouraged to follow up with nephrology and genetic consults. -SOB -Lung Nodule She has 6mm lung nodule and experience some SOB which is stable. PFT and repeating CT chest w/ contrast in 10/2020 to re-evaluate. -Anemia -Iron Deficiency -B12 Deficiency Treating with oral supplements per patient preference. Remains on Vitron C daily and 2000mcg B12 daily. -Hx of Seizure Remains on anti-seizure. Follows neurology. Follow Up: Clinic follow up (Not Telehealth) in 10 weeks. Sister expressed concern about coming to clinic for visit during current pandemic. Reassure her of the safety protocols in place and explained her the medical necessity for the in person office visit. [...] Jesika Rodriguez, MSN, AGNP Hematology and Oncology [facility] documented in this encounter Plan of Treatment Date Type Specialty Care Team Description 05/28/2020 Office Visit Urology Tonya Boyle MD [address] [place], [place] [phone] 06/01/2020 Appointment Radiology Jania Earl, CEMENT GUN OPERATOR [address] [facility] [address] [place] [address] [phone] 11/30/2020 Appointment Radiology Jania Earl, CEMENT GUN OPERATOR [address] [facility] [address] [place] [address] [phone] Health Maintenance Due Date Last Done Comments VARICELLA VACCINES (1 of 2 - 1991 2-dose childhood series) DTaP,Tdap,and Td Vaccines (1 - 2001 Tdap) PAP SMEAR 2011 INFLUENZA VACCINE (#1) 2020 10/01/2019 Depression Screening 01/16/2021 01/17/2020 PNEUMOCOCCAL 0-64 YEARS COMBINED Aged Out No longer eligible based on SERIES patient's age to complete this topic documented as of this encounter Implants Implanted Type Area Remote Sensing Research Scientist Device Shelf Model / Identifier Expiration Date Ser ial / Lot Mynx Right: Arrow 07/13/2021 [id number] / Implanted: Qty: 1 on 09/27/2019 at [facility] Gro[place] [id number] / [id number] documented as of this encounter Results Not on filedocumented in this encounter Visit Diagnoses Diagnosis Angiomyolipoma of both kidneys - Primary Iron deficiency Other disorders of iron metabolism B12 deficiency Other B-complex deficiencies Normocytic anemia Anemia, unspecified Fatigue, unspecified type 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
--- OUTSIDE RECORDS SUMMARY | 2020-05-15 20:20 | XMS REPORT | Summary of Care ---
:1990 Author Organization [address] [address] Care Team Providers Name Role Phone Corrine Bates Primary Care Provider [employer] Insurance Hmo Reason for Visit Reason Comments Home Health Encounter Details Date Type Department Care Team Description 05/15/2020 Patient Outreach [facility] Charissa Turner H [facility] Hematology-Oncology - [address] [place] [address] [place] [address] [address] [place] [phone] Allergies No Known Allergiesdocumented as of this encounter (statuses as of 05/15/2020) Medications Medication Sig Dispensed Refills Start Date [...] as of this encounter (statuses as of 05/15/2020) Active Problems Problem Noted Date Status post nephrectomy 12/05/2019 Pulmonary nodules 12/05/2019 Renal mass 10/02/2019 Overview: Added automatically from request for luz maria crowder [id number] 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 Overview: Added automatically from request for luz maria crowder [id number] Obesity (BMI 30-39.9) 09/27/2019 Mass of right kidney 09/26/2019 documented as of this encounter (statuses as of 05/15/2020) Immunizations Name Administration Dates Next Due Influenza [...] on filedocumented in this encounter Progress Notes Charissa Turner LMSW - 05/15/2020 1:57 PM CDTSW Note: CARMEL received a referral for patient re: home health for blood draws CARMEL reached out to agencies to ask who would accept the patient's insurance in the zip code and who would be able to perform the draws for 3 months. CARMEL will send orders once a home health is confirmed. Charissa Turner LMSW [employer] Blind Mechanic documented in this encounter Plan of Treatment Date Type Specialty Care Team Description 05/28/2020 Office Visit Urology Tonya Boyle MD [address] [place], [place] [phone] 06/01/2020 Appointment Radiology Jania Earl, MOTORBOAT MECHANIC HELPER [address] [facility] [address] [place], [place] [phone] 11/30/2020 Appointment Radiology Jania Earl, MOTORBOAT MECHANIC HELPER [address] [facility] [address] [place], [place] [address] Health Maintenance Due Date Last Done Comments VARICELLA VACCINES (1 of 2 - 2-dose childhood series) 1991 PNEUMOCOCCAL 0-64 YEARS COMBINED SERIES (1 of 3 - 1996 PCV13) DTaP,Tdap,and Td Vaccines (1 - Tdap) 2001 PAP SMEAR 2011 INFLUENZA VACCINE (#1) 2020 10/01/2019 Depression Screening 01/16/2021 01/17/2020 documented as of this encounter Implants Implanted Type Area Acid Retort Operator Device Shelf Model / Identifier Expiration Date Ser ial / Lot Mynx Right: Arrow 07/13/2021 [id number] / Implanted: Qty: 1 on 09/27/2019 at [facility] Christenin [id number] / [id number] documented as of this encounter Results Not on filedocumented in this encounter Insurance Payer Benefit Plan / Subscriber ID Effective Phone Address T ype Group Dates TOBIN RUDD xxxxxxxxx 2015-Caitlyn MARC Medic [facility] [place] [facility] [place] [address] MANAGED MEDICAID [place] documented as of this encounter
[2020-05-15] MEDS ORDERED: DIAZEPAM 2 MG TABLET ONE (21:12)
[2020-05-15] MEDS ORDERED: FENTANYL CITR 100 MCG/2 ML ONE (21:12)
[2020-05-15 22:26] LABS: Absolute Lymphocytes (CBC) 2.3 K/uL (0.7-4.9); MPV 7.6 fL (7.6-11.3)
[2020-05-15 22:30] LABS: Hematocrit 33.5 % (36.0-45.0); Lymphocytes % 23.1 % (15.3-44.8); RBC Red Blood Cell Count 3.94 M/uL (3.86-4.86)
[2020-05-15 22:33] LABS: Protime INR 0.94
[2020-05-15 22:48] LABS: ALT/SGPT 26 U/L (12-78); AST/SGOT 27 U/L (15-37); Albumin 2.8 g/dL (3.4-5.0); Alkaline Phosphatase 170 U/L (45-117); BUN Blood Urea Nitrogen 19 mg/dL (7-18); Bicarbonate 22 mmol/L (21-32); Bilirubin Direct < 0.1 mg/dL (0-0.2); Bilirubin Total 0.2 mg/dL (0.2-1.0); Glucose Level 103 mg/dL (74-106); Lipase 135 U/L (73-393); NT PRO-BNP 89 pg/mL (<125); Potassium 3.5 mmol/L (3.5-5.1); Protein, Total 9.2 g/dL (6.4-8.2); Sodium Level 138 mmol/L (136-145); Troponin (Emerg Dept Use Only) < 0.02 ng/mL (0.0-0.045)
--- NOTE | 2020-05-15 23:45 | ER ---
Nurse's Notes [facility] Name: Kitty Wall Age: 29 yrs Sex: Female : 1990 Arrival Date: 05/15/2020 Time: 20:21 Bed 15 Private MD: Shantelle Baets Diagnosis: Dyspnea, unspecified Presentation: 05/15 20:27 Chief complaint: EMS states: patient c/o of SOB, vomited and hypertensive, BP 180/108. fu Coronavirus screen: Proceed with normal triage. Ebola Screen: No symptoms or risks identified at this time. Initial Sepsis Screen: Does the patient meet any 2 criteria? No. Patient's initial sepsis screen is negative. Risk Assessment: Do you want to hurt yourself or someone else? Patient reports no desire to harm self or others. 20:27 Method Of Arrival: EMS: [facility] fu 20:27 Acuity: GUL[place] 3 fu Historical: - Allergies: 20:27 No Known Allergies; sg - PMHx: 20:27 Anxiety; Bipolar disorder; Depression; kidney tumor; Schizophrenia; Seizures; sg - PSHx: 20:27 Right Kidney Removed; Stimulator; sg - Immunization history:: Adult Immunizations not up to date. - Social history:: Smoking status: unknown. Screenin:00 Abuse screen: Denies threats or abuse. Nutritional screening: No deficits noted. fu Tuberculosis screening: No symptoms or risk factors identified. Fall Risk None identified. Assessment: 20:24 General: Appears uncomfortable, Behavior is calm, cooperative, appropriate for age. fu Pain: Complains of pain in patient stated "pain all over" Pain currently is 10 out of 10 on a pain scale. Neuro: Level of Consciousness is awake, alert, obeys commands, Oriented to person, place, time, situation. Cardiovascular:. Respiratory: Reports shortness of breath Airway is patent Respiratory effort is even, unlabored, Breath sounds are clear bilaterally. GI: Reports nausea, vomiting. Derm: scar to midline. patient had her left kidney removed last November 2019. 22:00 Reassessment: Patient appears in no apparent distress at this time. No changes from fu previously documented assessment. Patient and/or family updated on plan of care and expected duration. Pain level reassessed. Patient is alert, oriented x 3, equal unlabored respirations, skin warm/dry/pink. 23:00 Reassessment: Patient appears in no apparent distress at this time. No changes from fu previously documented assessment. Patient and/or family updated on plan of care and expected duration. Pain level reassessed. Patient is alert, oriented x 3, equal unlabored respirations, skin warm/dry/pink. Cardiovascular: Rhythm is regular. Vital Signs: 20:10 BP 171 / 103; Pulse 93; Resp 19; Temp 99; Pulse Ox 100% ; Pain 10/10; fu 20:27 BP 161 / 107; Pulse 98; Resp 18; Temp 99(O); Pulse Ox 99% ; Pain 10/10; fu 23:39 BP 176 / 101; Pulse 89; Resp 16; Pulse Ox 100% ; Pain 8/10; fu ED Course: 20:21 Patient arrived in ED. sg 20:22 David Saunders DO is Private Physician. sg 20:22 Shantelle Bates MD is Private Physician. sg 20:24 Jimbo Geiger, ANN MARIE is Primary Nurse. fu 20:30 Triage completed. fu 20:43 Shantanu Ferguson MD is Attending Physician. tw4 22:00 Patient has correct armband on for positive identification. Bed in low position. Side fu rails up X 1. environment coordinator on. Pulse ox on. NIBP on. 22:10 Inserted saline lock: 20 gauge in left antecubital area, using aseptic technique. Blood fu collected. 22:16 BMP Sent. fu 22:16 CBC with Diff Sent. fu 22:16 Hepatic Function Sent. fu 22:16 Lipase Sent. fu 22:16 Magnesium Sent. fu 22:16 NT PRO-BNP Sent. fu 22:16 PT-INR Sent. fu 22:23 Ptt, Activated Sent. fu 22:23 Troponin (emerg Dept Use Only) Sent. fu 22:25 XRAY CXR (1 view) In Process Unspecified. EDMS 22:32 COVID-19 Sent. fu 22:32 Flu Sent. fu 22:32 Strep Sent. fu 23:43 Shantelle Bates MD is Referral Physician. tw4 07 00:00 No provider procedures requiring assistance completed. fu 00:35 IV discontinued, bleeding controlled, Pressure dressing applied. fu Administered Medications: 05/15 23:53 Drug: TORadol 30 mg Route: IVP; Site: left forearm; fu 23:53 Drug: Zofran (Ondansetron) 4 mg Route: IVP; Site: left forearm; fu Outcome: 23:44 Discharge ordered by . tw4 05/16 00:36 Discharged to home ambulatory. fu Condition: good Discharge instructions given to patient, Instructed on discharge instructions, Demonstrated understanding of instructions, Prescriptions given X 1. 00:42 Patient left the ED. fu Addendum: 05/22/2020 09:03 Addendum: COVID-19 Result: Negative result given to RN to notify pt. Attempted to s s contact pt regarding negative COVID-19 swab results. Left voice mail. Signatures: Dispatcher [employer] EDMS Travis Madrigal RN RN sg Smirch, Shelby, RN RN Jimbo Geiger RN RN fu Wadley, Terrence, MD MD tw4 Corrections: (The following items were deleted from the chart) 05/16 04:51 04:50 Allergies: NKA; fu 04:53 04:51 Allergies: No Known Allergies; fu 04:53 04:51 Home Meds: Zofran Oral [Inactive]; fu 04:53 04:51 Home Meds: quetiapine 25 mg Oral tab nightly [Inactive]; 04:53 04:51 Home Meds: gabapentin 100 mg Oral cap 3 times per day [Inactive]; 04:53 04:51 Home Meds: Lexapro 20 mg Oral tab 1 tab once daily [Inactive]; fu 04:53 04:51 PMHx: Seizures [Inactive]; fu 04:53 04:51 PMHx: Anxiety [Inactive]; fu 04:53 04:51 PMHx: Bipolar disorder [Inactive]; fu 04:53 04:51 PMHx: Schizophrenia [Inactive]; fu 04:53 04:51 PMHx: Depression [Inactive]; 04:53 04:51 PMHx: Kidney tumor [Inactive]; 05/15 20:27 Home Meds: None; [facility] 05/16 04:05/15 20:27 PMHx: None; [facility] 05/16 04:05/15 20:27 PSHx: None; [facility]
--- NOTE | 2020-05-15 23:45 | EDPHYS ---
Physician Documentation [facility] Name: Kitty Wall Age: 29 yrs Sex: Female : 1990 Arrival Date: 05/15/2020 Time: 20:21 Bed 15 Private MD: Shantelle Bates ED Physician Shantanu Ferguson HPI: 05/16 05:55 This 29 yrs old Female presents to ER via EMS with complaints of Shortness Of tw4 Breath. 05:55 The patient has shortness of breath at rest. Onset: The symptoms/episode began/occurred tw4 today. Duration: The symptoms are continuous, and are unchanged since they started. The patient's shortness of breath has no apparent modifying factors. The patient has not experienced similar symptoms in the past. 05:55 Associated signs and symptoms: Pertinent positives: nausea, vomiting. Severity of tw4 symptoms: At their worst the symptoms were moderate in the emergency department the symptoms are unchanged. Historical: - Allergies: 05/15 20:27 No Known Allergies; sg - PMHx: 20:27 Anxiety; Bipolar disorder; Depression; kidney tumor; Schizophrenia; Seizures; sg - PSHx: 20:27 Right Kidney Removed; Stimulator; sg - Immunization history:: Adult Immunizations not up to date. - Social history:: Smoking status: unknown. ROS: 05/16 05:55 Constitutional: Negative for fever, chills, and weight loss, Cardiovascular: Negative tw4 for chest pain, palpitations, and edema, Back: Negative for injury and pain, MS/Extremity: Negative for injury and deformity, Skin: Negative for injury, rash, and discoloration, Neuro: Negative for headache, weakness, numbness, tingling, and seizure. Respiratory: Positive for shortness of breath. Abdomen/GI: Positive for nausea and vomiting, Negative for abdominal pain. Exam: 05:55 Constitutional: This is a well developed, well nourished patient who is awake, alert, tw4 and in no acute distress. Head/Face: Normocephalic, atraumatic. Chest/axilla: Normal chest wall appearance and motion. Nontender with no deformity. No lesions are appreciated. Cardiovascular: Regular rate and rhythm with a normal S1 and S2. No gallops, murmurs, or rubs. Normal PMI, no JVD. No pulse deficits. 05:55 Respiratory: Lungs have equal breath sounds bilaterally, clear to auscultation and percussion. No rales, rhonchi or wheezes noted. No increased work of breathing, no retractions or nasal flaring. Skin: Warm, dry with normal turgor. Normal color with no rashes, no lesions, and no evidence of cellulitis. MS/ Extremity: Pulses equal, no cyanosis. Neurovascular intact. Full, normal range of motion. Neuro: Awake and alert, GCS 15, oriented to person, place, time, and situation. Cranial nerves II-XII grossly intact. Motor strength 5/5 in all extremities. Sensory grossly intact. Cerebellar exam normal. Normal gait. 05:55 Respiratory: Vital Signs: 05/15 20:10 BP 171 / 103; Pulse 93; Resp 19; Temp 99; Pulse Ox 100% ; Pain 10/10; fu 20:27 BP 161 / 107; Pulse 98; Resp 18; Temp 99(O); Pulse Ox 99% ; Pain 10/10; fu 23:39 BP 176 / 101; Pulse 89; Resp 16; Pulse Ox 100% ; Pain 8/10; fu MDM: 22:18 Patient medically screened. 05/16 05:55 Differential diagnosis: Anxiety Reaction Bronchitis pneumonia, Pneumothorax tw4 Psychogenic. Antibiotic administration: Not indicated. Data reviewed: vital signs, EMS record. Data reviewed: lab test result(s), CBC, electrolytes, Flu: negative radiologic studies, plain films. Data interpreted: Pulse oximetry: Interpretation: normal. Test interpretation: by ED physician or midlevel provider: plain radiologic studies. Counseling: I had a detailed discussion with the patient and/or guardian regarding: the historical points, exam findings, and any diagnostic results supporting the discharge/admit diagnosis, lab results, radiology results. Special discussion: I discussed with the patient/guardian in detail that at this point there is no indication for admission to the hospital. It is understood, however, that if the symptoms persist or worsen the patient needs to return immediately for re-evaluation. 05/15 20:55 Order name: COVID-19 tw4 05/15 20:55 Order name: Flu 05/15 20:55 Order name: Strep 05/15 20:56 Order name: Blood Culture Adult (2) 05/15 20:56 Order name: BMP; Complete Time: 23:29 05/15 23:30 Interpretation: Normal except: BUN 19; GFR 43; CRE 1.45. 05/15 20:56 Order name: CBC with Diff; Complete Time: 23:29 05/15 23:30 Interpretation: Normal except: HGB 11.5; HCT 33.5; MCV 85.2; PLT 450. 05/15 20:56 Order name: Hepatic Function; Complete Time: 23:30 05/15 23:30 Interpretation: Normal except: ALK 170; TP 9.2; GLOB 6.4; A/G 0.4; ALB 2.8. 05/15 20:56 Order name: Lipase; Complete Time: 23:30 05/15 23:30 Interpretation: Within normal limits: LIP 135. 05/15 20:56 Order name: Magnesium; Complete Time: 23:30 05/15 23:40 Interpretation: Within normal limits: MG 2.0. 05/15 20:56 Order name: NT PRO-BNP; Complete Time: 23:30 05/15 23:40 Interpretation: Within normal limits: NT PRO-BNP 89. 05/15 20:56 Order name: PT-INR; Complete Time: 23:30 05/15 23:40 Interpretation: Within normal limits: PT 11.1. 05/15 20:56 Order name: Ptt, Activated; Complete Time: 23:30 05/15 23:30 Interpretation: Normal except: PTT 37.4. 05/15 20:56 Order name: Troponin (emerg Dept Use Only); Complete Time: 23:30 05/15 23:40 Interpretation: Within normal limits: TROPED < 0.02. 05/16 00:35 Order name: Throat Culture EDNC 05/15 20:55 Order name: Droplet/Contact Precautions; Complete Time: 04:55 05/15 20:55 Order name: Labs collected and sent; Complete Time: 04:55 05/15 20:55 Order name: O2 Per Protocol; Complete Time: 22:16 05/15 20:56 Order name: XRAY CXR (1 view) 05/15 20:56 Order name: Cardiac monitoring; Complete Time: 22:16 /03 20:56 Order name: IV Saline Lock; Complete Time: 22:16 4 05/15 20:56 Order name: O2 Per Protocol; Complete Time: 22:16 4 05/15 20:56 Order name: O2 Sat Monitoring; Complete Time: 22:16 4 Administered Medications: 05/15 23:53 Drug: TORadol 30 mg Route: IVP; Site: left forearm; fu 23:53 Drug: Zofran (Ondansetron) 4 mg Route: IVP; Site: left forearm; fu Disposition: 05/15/20 23:44 Discharged to Home. Impression: Dyspnea, unspecified. - Condition is Stable. - Discharge Instructions: Shortness of Breath. - Prescriptions for Albuterol Sulfate 90 mcg/actuation - inhale 1-2 puff by INHALATION route every 4-6 hours; 1 Inhaler. - Medication Reconciliation Form, Thank You Letter, Antibiotic Education, Prescription Opioid Use form. - Follow up: Shantelle Bates MD; When: Upon discharge from the Emergency Department; Reason: Recheck today's complaints, Continuance of care, Re-evaluation by your physician. - Problem is new. - Symptoms have improved. Signatures: Dispatcher [employer] EDMS Travis Madrigal RN RN Jimbo Geiger RN RN fu Wadley, Terrence, MD MD tw4 Corrections: (The following items were deleted from the chart) 05/16 00:42 05/15 23:44 05/15/2020 23:44 Discharged to Home. Impression: Dyspnea, unspecified. fu Condition is Stable. Forms are Medication Reconciliation Form, Thank You Letter, Antibiotic Education, Prescription Opioid Use. Follow up: Shantelle Bates; When: Upon discharge from the Emergency Department; Reason: Recheck today's complaints, Continuance of care, Re-evaluation by your physician. Problem is new. Symptoms have improved. 05/16 04:51 04:50 Allergies: NKA; : 04:51 Allergies: No Known Allergies; fu : 04:51 Home Meds: Zofran Oral [Inactive]; fu 04:51 Home Meds: quetiapine 25 mg Oral tab nightly [Inactive]; : 04:51 Home Meds: gabapentin 100 mg Oral cap 3 times per day [Inactive]; fu : 04:51 Home Meds: Lexapro 20 mg Oral tab 1 tab once daily [Inactive]; 04:51 PMHx: Seizures [Inactive]; 04:51 PMHx: Anxiety [Inactive]; 04:51 PMHx: Bipolar disorder [Inactive]; 04:51 PMHx: Schizophrenia [Inactive]; 04:51 PMHx: Depression [Inactive]; 04:51 PMHx: Kidney tumor [Inactive]; 05/15 20:27 Home Meds: None; sg sg 05/16 04:05/15 20:27 PMHx: None; sg sg 05/16 04:05/15 20:27 PSHx: None; sg sg 05/16 05:56 05:55 Associated signs and symptoms: The patient has no apparent associated signs or tw4 symptoms, tw4 05:57 05:55 Constitutional: Negative for fever, chills, and weight loss, Eyes: Negative for tw4 injury, pain, redness, and discharge, Cardiovascular: Negative for chest pain, palpitations, and edema, Respiratory: Negative for shortness of breath, cough, wheezing, and pleuritic chest pain, Abdomen/GI: Negative for abdominal pain, nausea, vomiting, diarrhea, and constipation, Back: Negative for injury and pain, MS/Extremity: Negative for injury and deformity, Skin: Negative for injury, rash, and discoloration, tw4
[2020-05-15] MEDS ORDERED: KETOROLAC 30 MG/ML INJ ONE (23:55)
[2020-05-15] MEDS ORDERED: ONDANSETRON 4 MG/2 ML VIAL ONE (23:55)
[2020-05-16 01:16] VITALS: TEMP 99
[2020-05-16 01:17] VITALS: BP 176/101; O2SAT 100
--- NOTE | 2020-05-16 12:22 | RAD REPORT ---
EXAM DESCRIPTION: RAD - Chest Single View - 05/15/2020 10:25 pm CLINICAL HISTORY: SOB Chest pain. COMPARISON: Chest Single View dated 12/25/2017; Chest Single View dated 09/13/2017; CHEST SINGLE VIEW dated 09/03/2014; CHEST PA AND LAT 2 VIEW dated 06/08/2012 FINDINGS: Portable technique limits examination quality. The lungs are grossly clear. The heart is normal in size. No displaced fractures.Stimulator device is present obscuring a portion of the left upper lobe. IMPRESSION: No acute intrathoracic process suspected.
== END 2020-05-16 00:42 | disposition home or self-care (01) ==
LOC: ER 20:12
DX: R06.00 Dyspnea, unspecified (principal); Z20.828 Contact with and (suspected) exposure to other viral communicable diseases; R11.2 Nausea with vomiting, unspecified
CPT/HCPCS: 87040 ×2; 87070; 85025; 80048; 36415; 83735; 85610; 80076; 87081; 85730; 84484; 83690; 83880; 87804 ×2; 71045; 96375; 96374; 99284; U0001; J3010; J2405

== ENCOUNTER 2020-08-09 13:56 | Emergency (ER) | payer MEDICAID ==
--- OUTSIDE RECORDS SUMMARY | 2020-08-09 13:59 | XMS REPORT | Continuity of Care Document ---
:1990 Author Organization [facility] t Address 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 of [place] Physici ans Localz-rlt Localz-rlt Problem Active U nivers d d HL7.CCDAR2 [place] symptom[place] c epilepsy c epilepsy Ph ysici w complx w complx ans part sz, part sz, notintrac, notintrac, w status w status Angiomyoli Angiomyoli Problem Active C [facility] guevara of guevara of [facility] - left left Memoria kidney kidney l [facility] Seizures Seizures [facility] Depression Depression Problem Active [facility] with with [facility] - anxiety anxiety Memoria l [facility] 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 y y [facility] - addiction addiction Erasmo idania l [facility] Seizure Seizure Problem Active [facility] disorder disorder [facility] 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 [facility] - of kidney of kidney Erasmo idania l [facility] BCP ( BCP ( Problem Active C [facility] control control [facility] - pills) pills) Memoria initiation initiation l [facility] Back pain Back pain Problem Active [facility] Obesity Obesity Problem Active [facility] Insomnia Insomnia Problem Active [facility] 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 [facility] - Memoria l [facility] 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[facility] mental mental [facility] - retardatio retardatio Me moria n n l [facility] Gastroesop Gastroesop Diagnosis Active [facility] hageal hageal [facility] - reflux reflux Memoria disease disease l without without [facility] esophagiti esophagiti en t s s Clinics Uses Uses Problem Active [facility] control control [facility] Onychomyco Onychomyco Problem Active C [facility] sis sis [facility] Panic Panic Problem Active [facility] attacks attacks [facility] Seasonal Seasonal Problem Active [facility] allergies allergies [facility] - [facility] l [facility] Exposure Exposure Problem Active [facility] to to [facility] - sexually sexually Memori a transmitte transmitte l d disease d disease Outp ati (STD) (STD) ent Clinics Acne Acne Problem Active [facility] rosacea rosacea [facility] Uses Uses Diagnosis Active [facility] control control [facility]ics Diagnosis Active [facility] control control [facility] - counseling counseling Me moria l [facility] Muscle Muscle Diagnosis Active [facility] cramps cramps [facility] Allergies, Adverse Reactions, Alerts This patient has no known allergies or adverse reactions. Social History Smoking Status Start Date Stop Date Source Never smoker [facility] Physicians Medications Ordered Filled Start Stop Current Ordering Indication Dosage Frequency Signature Comments Components Source Medication Medication Date Date Medication? Clinician (SIG) Name Name Magnesium Magnesium 0 2020- Yes Na Bates [address] [facility] Oxide Oxide 9-10 10-10 as needed [facility] - 00:00: 00:00 for leg Memoria 00 :00 cramps l [facility] Clonazepam Clonazepam 2018-11 Yes Na [...] M.D. TWICE [place] 00 DAILY Physici ans Gianvi Gianvi Yes Na Bates [address] [facility] Cetirizine Cetirizine Yes Na Bates take [address] [facility] HCl HCl tablet by [facility] - mouth Memoria every day l as needed [facility] allergies Clinics Lamictal Lamictal Yes Na Bates [address] [facility] Ondansetron Ondansetron Yes Na Bates as [facility] HCl HCl directed [facility] Lexapro Lexapro Yes Na Bates [address] [facility] Quetiapine Quetiapine Yes Na Bates TAKE [address] [facility] Fumarate Fumarate TABLET BY Mary kes - MOUTH AT [facility] BEDTIME l [facility] Afinitor Afinitor Yes Na Bates [address] [facility] Pantoprazol Pantoprazol Yes Na Bates [address] [facility] e Sodium e Sodium [facility] Immunizations Ordered Filled Immunization Date Status Comments Sourc e Immunization Name Name Afluria single dose Afluria single dose 2019-08-[address] [facility] - 00:00:00 [facility] Flucelvax - single Flucelvax - single 2018-10-[address] [facility] - dose syringe dose syringe 00:00:00 [facility] Vital Signs Vital Name Observation Time Observation Value Comments Source BP Systolic 2018-05-01 10:10:00 109 mm[Hg] [facility] Physician s BP Diastolic 2018-05-01 10:10:00 76 mm[Hg] [facility] Physician s Height 2018-05-01 10:10:[address] [facility] Physician s Weight 2018-05-01 10:10:[address] [facility] Physician s Body Mass Index 2018-05-01 10:10:00 28.55 kg/m2 [facility] Physician s Temperature 2018-05-01 10:10:00 96.5 [degF] [facility] Physician s Heart Rate 2018-05-01 10:10:00 91 /min [facility] Physician s Head Circumference 2018-05-01 10:10:00 54.7 [facility] Procedures Procedure Date / Time Performing Clinician Source Performed EKG w/Rhythm Strip 2018-04-17 00:00:00 [facility] [QLH] CBC (INCLUDES 2018-04-17 00:00:00 [facility] DIFF/PLT) Physicians [QLH] CMP W/EGFR 2018-04-17 00:00:00 [facility]icians [Q] EVEROLIMUS, BLOOD 2018-04-17 00:00:00 [facility] [QLH] LIPID PANEL 2018-04-17 00:00:00 [facility] Physicians [QLH] PHOSPHATE ( 2018-04-17 00:00:00 [facility] PHOSPHORUS) Physicians [QLH] PTH, INTACT 2018-04-17 00:00:00 [facility] (WITHOUT CALCIUM) Physicians [QLH] LAMOTRIGINE 2018-04-17 00:00:00 [facility] Phys[facility] MRI Brain w/wo contrast 2018-04-17 00:00:00 [facility] [id number] Abdomen w/wo 2018-04-17 00:00:00 [facility] contrast [id number] Physicians Encounters Start End Encounter Admission Attending Care Care Encounter Source Date/Time Date/Time Type Type Clinicians Facility Department ID 2020-07-23 2020-07-23 [facility] [id number] [facility] [address] 11:20:00 11:20:00 [facility] [place] Medicine Outpati ent Clinics 2020-05-28 2020-05-28 Office [facility] [id number] 10:00:39 10:15:39 Visit [place] [id number] Cancer [id number] Center - [id number] [facility] 204 2020-05-11 2020-05-11 [facility] [id number] 16:25:00 16:25:00 [facility] Medicine Outpati ent Clinics 2020-05-01 2020-05-01 [facility] [id number] 13:06:00 13:06:00 [facility] Medicine Outpati ent Clinics 2020-04-23 2020-04-23 [facility] [id number] 14:25:00 14:25:00 [facility] [place] Medicine Outpati ent Clinics 2020-04-16 2020-04-16 [facility] [id number] [address] 13:06:00 13:06:00 [facility] [place] Medicine Outpati ent Clinics 2020-04-16 2020-04-16 [facility] [id number] 10:40:00 10:40:00 [facility] [place] Medicine Outpati ent Clinics 2020-04-13 2020-04-13 [facility] [id number] 13:19:00 13:19:00 [facility] Medicine Outpati ent Clinics 2020-04-13 2020-04-13 [facility] [id number] 11:29:00 11:29:00 [facility] Medicine Outpati ent Clinics 2020-01-15 2020-01-15 [facility] [id number] 12:20:00 12:20:00 [place] [employer] s - Drive [facility] Medicine l Medicine Outpati ent Clinics 2020-01-08 2020-01-08 [facility] [id number] 08:53:00 08:53:00 [place] [employer] s - Drive [facility] Medicine l Medicine Outpati ent Clinics 2019-10-28 2019-10-28 [facility] [id number] 09:40:00 09:40:00 [place] [employer] s - Drive [facility] Medicine l Medicine Outpati ent Clinics 2019-09-03 2019-09-03 [facility] [id number] 16:57:00 16:57:00 t [place] [email or web address] s - Drive [facility] Medicine l Medicine Outpati ent Clinics 2019-08-27 2019-08-27 [facility] [id number] 08:40:00 08:40:00 [place] [employer] s - Drive [facility] Medicine l Medicine Outpati ent Clinics 2019-08-22 2019-08-22 [facility] [id number] 09:20:00 09:20:00 t [place] [email or web address] s - Drive [facility] Medicine l Medicine Outpati ent Clinics 2019-08-05 2019-08-05 [facility] [id number] 16:00:00 16:00:00 t [place] [email or web address] s - Drive [facility] Medicine l Medicine Outpati ent Clinics 2019-03-01 2019-03-01 [facility] [id number] 09[facility]40:00 09:40:00 t [place] [employer] s - Drive [facility] Medicine l Medicine Outpati ent Clinics 2019-01-25 2019-01-25 [facility] [id number] 09:30:00 09:30:00 t [place] [email or web address] s - Drive [facility] Medicine l Medicine Outpati ent Clinics 2018-10-26 2018-10-26 [facility] [id number] 09:30:00 09:30:00 t [facility] 2018-07-27 2018-07-27 [facility] [id number] 10:15:00 10:15:00 t [facility] 2018-05-01 2018-05-01 [facility] [id number] Univers 09:15:00 09:15:00 t; ALFREDO, Division of it y of Reji EUGENE [facility] ALFREDO Genetics Physici MAbdoul ans 2018-05-01 2018-05-01 Appoint[facility]RISTINE [facility] [id number] Univers 08:45:00 08:45:00 t; ALONZO GONZALES, of keesha of ALONZO WAGNER M.D. [facility] Reji Genetics Physici ans 2018-04-27 2018-04-27 [facility] [id number] 10:15:00 10:15:00 t [facility] 2017-05-08 2017-05-08 Appointnessa EUGENE, CHRISTINE [facility] [id number] Univers 09:00:00 09:00:00 t; Meghan FUENTES M.D. [place] Bernice FUENTES M.D. ans 2017-02-28 2017-02-28 AppointCHRISTINE Lee [facility] [id number] Univers 09:45:00 09:45:00 t; Meghan FUENTES M.D. [place] Bernice FUENTES M.D. ans 2017-02-28 2017-02-28 AppointCHRISTINE Junior [facility] [id number] Univers 09:45:00 09:45:00 t; ALONZO GONZALES i ty of Reji WOODS M.D. Physici ans 2017-02-28 2017-02-28 AppointCHRISTINE Rogers [facility] [id number] Univers 09:30:00 09:30:00 t; Reji ASIF [place] HOPE, M.D. Physi ci ans Results Test Description Test Time Test Comments Results Result Comments Source [O] Urine Dipstick (In Office) 2018-05-01 10:25:00 Test Item Value Reference Range Interpretation Comme nts LEUKOCYTES (test code = LEUKOCYTES) Negative N NITRITE; Normal (test code = 13270-4) Negative N UROBILINOGEN; Normal (test code = 77216-1) 0.2 N PROTEIN (test code = 49858-3) 30 pH (test code = pH) 7.0 N URINE BLOOD (test code = 84113-4) Trace-Intact SPECIFIC GRAVITY; Normal (test code = 2965-2) 1.020 N KETONES; Normal (test code = 06001-7) Negative N BILIRUBIN; Normal (test code = 03063-5) Neative N GLUCOSE; Normal (test code = 1547-9) Negative N [facility]
--- OUTSIDE RECORDS SUMMARY | 2020-08-09 14:00 | XMS REPORT ---
:1990 Author Organization [employer] Care Team Providers Name Role Phone Bates, Na Provider Role Unavailable Allergies, Adverse Reactions, Alerts Substance Reaction Event Type N.K.D.A. 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 Problem Benign neoplasm of kidney D30.00 Ac tive Problem Exposure to sexually transmitted Z20.2 Active disease (STD) Problem Seasonal allergies J30.2 Active Assessment Gastroesophageal reflux disease K21.9 Active without esophagitis Assessment Cramp in lower leg associated with R25.2 Active rest Problem 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 Assessment Muscle cramps R25.2 Active Problem Uses control Z30.9 Active Problem [...] Start End Status Dosage System Date Date Clonazepam ND 62367403835 0.5 MG Orally Oct 28, Active 1 t ablet on Once a day 2019 the tongue and allow to dissolve as needed for acute panic attacks Gianvi [facility] 97164489889 3-0.02 MG Active 1 tablet Orally Once a day Cetirizine HCl ND 27320311164 10 MG Orally Active take 1 Once a day tablet by mouth every day as needed for allergies Lamictal ND 43768672563 100 MG Orally Active 1 tab let Twice a day Ondansetron HCl [facility] 81729511319 4 MG Orally one Acti ve as directed tablet by mouth every 4 hrs [address]apro [facility] 62481904221 20 MG Orally Active 1 table t Once a day Quetiapine [facility] 39123123136 50 MG Active TAKE 1 Fumarate TABLET BY MOUTH AT BEDTIME Afinitor [facility] 50710857691 5 MG Orally Active 1 table t Once a day Pantoprazole [facility] 56632025679 40 MG Orally Active 1 tablet Sodium Once a day Magnesium Oxide [facility] 48823488869 400 MG Orally Jul 23, Aug 22, Activ e 1 tablet as Once a day 2019 2019 needed for leg cramps Results Name Result Date Reference Range Unit Abnormali ty Flag Magnesium ----Magnesium 2.2 20200723 1.8-2.4 mg/dL Summary Purpose eClinicalWorks Submission
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
--- NOTE | 2020-08-09 14:58 | ER ---
Nurse's Notes [facility] Name: Kitty Wall Age: 29 yrs Sex: Female : 1990 Arrival Date: 08/09/2020 Time: 13:58 Bed 20 Private MD: Diagnosis: Cough;Chest pain, unspecified;Chest pain on breathing;Flank pain;Hematuria Presentation: 08/09 14:12 Chief complaint: Patient states: LEFT FLANK PAIN AND COUGH x1 MONTH. Coronavirus bp screen: At this time, the client does not indicate any symptoms associated with coronavirus-19. Ebola Screen: No symptoms or risks identified at this time. Initial Sepsis Screen: Does the patient meet any 2 criteria? HR > 90 bpm. No. Patient's initial sepsis screen is negative. Does the patient have a suspected source of infection? No. Patient's initial sepsis screen is negative. Risk Assessment: Do you want to hurt yourself or someone else? Patient reports no desire to harm self or others. Onset of symptoms is unknown. 14:12 Method Of Arrival: Ambulatory bp 14:12 Acuity: GULSHAN 4 bp Triage Assessment: 14:14 General: Appears distressed, comfortable, obese, Behavior is cooperative, appropriate bp for age, anxious. Pain: Complains of pain in left flank. EENT: No deficits noted. Neuro: Level of Consciousness is awake, alert, obeys commands, Oriented to person, place, time, situation. Cardiovascular: No deficits noted. Respiratory: Reports cough that is. GI: No signs and/or symptoms were reported involving the gastrointestinal system. : No signs and/or symptoms were reported regarding the genitourinary system. Derm: No deficits noted. Musculoskeletal: No deficits noted. Historical: - Allergies: 14:14 No Known Allergies; bp - Home Meds: 14:14 Trileptal oral oral [Active]; bp - PMHx: 14:14 Anxiety; Bipolar disorder; Depression; Kidney tumor; Schizophrenia; Seizures; bp - Immunization history:: Adult Immunizations up to date. - Social history:: Smoking status: Patient denies any tobacco usage or history of. Screenin:16 Abuse screen: Denies threats or abuse. Denies injuries from another. Nutritional bp screening: No deficits noted. Tuberculosis screening: No symptoms or risk factors identified. Fall Risk None identified. Assessment: 14:16 General: SEE TRIAGE NOTE. bp 15:13 Reassessment: PT D/C HOME AMBULATORY WITH FAMILY, DX WITH FLANK PAIN AND COUGH. bp Vital Signs: 14:12 BP 116 / 77; Pulse 110; Resp 16; Temp 98; Pulse Ox 99% ; bp 15:13 BP 109 / 67; Pulse 100; Resp 16; Temp 98; Pulse Ox 99% ; bp ED Course: 13:58 Patient arrived in ED. ds1 14:06 Sascha Kimble, RN is Primary Nurse. bp 14:06 Hardy Rich MD is Attending Physician. kdr 14:13 Triage completed. bp 14:16 Arm band placed on. bp 14:16 Patient has correct armband on for positive identification. Bed in low position. Call bp light in reach. Side rails up X2. 14:56 Urine collected: straight cath specimen, clear. iw 15:13 No provider procedures requiring assistance completed. Patient did not have IV access bp during this emergency room visit. Administered Medications: No medications were administered Outcome: 14:58 Discharge ordered by . kdr 15:13 Discharged to home ambulatory, with family. bp 15:13 Condition: stable 15:13 Discharge instructions given to patient, Instructed on discharge instructions, follow up and referral plans. medication usage, Demonstrated understanding of instructions, follow-up care, medications, Prescriptions given X 2. 15:14 Patient left the ED. bp Signatures: Hardy Rich MD MD [facility] Cecy Sung ds1 Angle Boyle RN RN iw Sascha Kimble, RN RN bp
[2020-08-09 15:28] VITALS: TEMP 98; O2SAT 99
[2020-08-09 15:29] VITALS: BP 109/67
[2020-08-09 16:41] LABS: Urine Blood 1+ (NEG); Urine Glucose NEGATIVE (NEG); Urine Protein 3+ (NEG)
== END 2020-08-09 15:14 | disposition home or self-care (01) ==
LOC: ER 13:56
DX: R07.1 Chest pain on breathing (principal); R31.9 Hematuria, unspecified; R10.9 Unspecified abdominal pain; R07.9 Chest pain, unspecified; F20.9 Schizophrenia, unspecified
CPT/HCPCS: 81003; 81025; 99283

== ENCOUNTER 2020-08-16 21:03 | Emergency (ER) | payer MEDICAID ==
[2020-08-16] MEDS ORDERED: NA CHLORIDE 0.9% 1,000 ML ONE (23:10)
[2020-08-16 23:38] LABS: Urine Blood TRACE (NEG); Urine Glucose NEGATIVE (NEG); Urine Protein 3+ (NEG); Urine Specific Gravity >1.030 (1.005-1.030)
[2020-08-16 23:38] LABS: Urine Bacteria <20 /HPF (<20); Urine Culture Reflex Order NOT NEEDED; Urine RBC <5 /HPF (NONE SEEN)
[2020-08-17 00:28] LABS: Absolute Lymphocytes (CBC) 3.1 K/uL (0.7-4.9); Basophils % 0.9 % (0-1.3); Hematocrit 33.1 % (36.0-45.0); Lymphocytes % 32.1 % (15.3-44.8); MPV 7.9 fL (7.6-11.3); RBC Red Blood Cell Count 3.73 M/uL (3.86-4.86)
[2020-08-17 00:40] LABS: ALT/SGPT 20 U/L (12-78); AST/SGOT 14 U/L (15-37); Albumin 3.1 g/dL (3.4-5.0); Alkaline Phosphatase 124 U/L (45-117); BUN Blood Urea Nitrogen 27 mg/dL (7-18); Bicarbonate 23 mmol/L (21-32); Bilirubin Direct < 0.1 mg/dL (0-0.2); Bilirubin Total < 0.1 mg/dL (0.2-1.0); Glucose Level 91 mg/dL (74-106); Lipase 195 U/L (73-393); Potassium 3.9 mmol/L (3.5-5.1); Sodium Level 141 mmol/L (136-145)
--- NOTE | 2020-08-17 00:52 | ER ---
Nurse's Notes [facility] Name: Kitty Wall Age: 30 yrs Sex: Female : 1990 Arrival Date: 08/16/2020 Time: 21:06 Bed 5 Private MD: Shantelle Bates Diagnosis: Dysuria Presentation: 08/16 21:08 Chief complaint: Patient states: "Every time I take a bath, it hurts down there. jd3 burning with urination and I am hurting where my kidney is.". Coronavirus screen: At this time, the client does not indicate any symptoms associated with coronavirus-19. Ebola Screen: Patient negative for fever greater than or equal to 101.5 degrees Fahrenheit, and additional compatible Ebola Virus Disease symptoms. Initial Sepsis Screen: Does the patient meet any 2 criteria? No. Patient's initial sepsis screen is negative. Does the patient have a suspected source of infection? No. Patient's initial sepsis screen is negative. Risk Assessment: Do you want to hurt yourself or someone else? Patient reports no desire to harm self or others. Onset of symptoms was June 13, 2020. 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 - Social history:: Smoking status: Patient denies any tobacco usage or history of. Screenin:16 Abuse screen: Denies threats or abuse. Denies injuries from another. Nutritional lp1 screening: No deficits noted. Tuberculosis screening: No symptoms or risk factors identified. Fall Risk None identified. Assessment: 23:00 General: Appears in no apparent distress. Behavior is calm, cooperative, appropriate lp1 for age. Pain: Complains of pain in left low back Pain currently is 5 out of 10 on a pain scale. Quality of pain is described as aching. Neuro: Level of Consciousness is awake, alert, obeys commands, Oriented to person, place, time, situation. Cardiovascular: Patient's skin is warm and dry. Respiratory: Respiratory effort is even, unlabored. GI: Abdomen is non-distended. : Reports burning with urination, with some blood in urine. EENT: No signs and/or symptoms were reported regarding the EENT system. Derm: Skin is pink, warm \\T\\ dry. Musculoskeletal: No deficits noted. 08/17 00:45 Reassessment: Patient is alert, oriented x 3, equal unlabored respirations, skin lp1 warm/dry/pink. Assisted Lobo Saleh NP with vaginal exam; No lesions, skin tears noted to labia, meatus. Vital Signs: 08/16 21:10 BP 142 / 90; Pulse 95; Resp 17 S; Temp 98.1(TE); Pulse Ox 100% on R/A; Weight 75.3 kg jd3 (R); Height 5 ft. 1 in. (154.94 cm) (R); Pain 1010; 08/17 00:00 BP 123 / 93; Pulse 94; Resp 18; Pulse Ox 100% on R/A; lp1 01:25 BP 122 / 79; Pulse 90; Resp 16; Pulse Ox 100% on R/A; lp1 08/16 21:10 Body Mass Index 31.37 (75.30 kg, 154.94 cm) jd3 ED Course: 08/16 21:06 Patient arrived in ED. am2 21:06 Shantelle Bates MD is Private Physician. am2 21:10 Triage completed. jd3 21:10 Arm band placed on. jd3 22:34 [facility] sg 22:34 Sawyer Sousa MD is Attending Physician. sg 22:35 Danielle Wilson RN is Primary Nurse. lp1 23:00 Missed attempt(s): 20 gauge in right antecubital area. lp1 23:10 Inserted saline lock: 22 gauge in right hand, using aseptic technique. Blood collected. lp1 23:18 Patient has correct armband on for positive identification. lp1 08/17 00:08 Assisted to bathroom. sg 01:23 No provider procedures requiring assistance completed. IV discontinued, No lp1 redness/swelling at site. Pressure dressing applied. Administered Medications: 08/16 23:15 Drug: NS 0.9% 1000 ml Route: IV; Rate: 1000 ml; Site: right hand; lp1 08/17 00:40 Follow up: IV Status: Completed infusion; IV Intake: 1000ml lp1 01:11 Drug: Rocephin 1 grams Route: IV; Rate: calculated rate; Site: right hand; lp1 01:23 Follow up: Response: No adverse reaction; Medication administered at discharge.; IV lp1 Status: Completed infusion; IV Intake: 10ml Intake: 00:40 IV: 1000ml; Total: 1000ml. lp1 01:23 IV: 10ml; Total: 1010ml. lp1 Outcome: 00:51 Discharge ordered by MD. pm1 01:25 Discharged to home ambulatory, with significant other. lp1 01:25 Condition: good 01:25 Discharge instructions given to patient, Instructed on discharge instructions, follow up and referral plans. medication usage, Demonstrated understanding of instructions, follow-up care, medications, Prescriptions given X 2. 01:25 Patient left the ED. lp1 Signatures: Travis Madrigal RN RN Danielle Wilson RN RN lp1 Lobo Saleh NP RATER ASSOCIATE pm1 Lisa Reid 2 Robin Coleman RN RN jd3 Corrections: (The following items were deleted from the chart) 08/16 21:14 21:10 Pulse 95bpm; Resp 17bpm; Spontaneous; Pulse Ox 100% RA; Temp 98.1F Temporal; 75.3 jd3 kg Reported; Height 5 ft. 1 in. Reported; BMI: 31.3; Pain 10/10; jd3 21:15 21:10 Pulse 95bpm; Resp 17bpm; Spontaneous; Pulse Ox 100% RA; Temp 98.1F Temporal; 75.3 jd3 kg Reported; Height 5 ft. 1 in. Reported; BMI: 31.3; Pain 10/10; jd3
--- NOTE | 2020-08-17 00:52 | EDPHYS ---
Physician Documentation [facility] Name: Kitty Wall Age: 30 yrs Sex: Female : 1990 Arrival Date: 08/16/2020 Time: 21:06 Bed 5 Private MD: Shantelle Bates ED Physician Sawyer Sousa HPI: 08/16 22:46 This 30 yrs old Female presents to ER via Ambulatory with complaints of Flank pm1 Pain, Vaginal Pain. 22:46 The patient complains of pain in the left low back. The pain does not radiate. pm1 Modifying factors: the symptoms are aggravated by burning with urination. Associated signs and symptoms: Pertinent positives: burning with urination, Pertinent negatives: diarrhea, fever, nausea, vomiting. Severity of pain: in the emergency department the pain is actually worse. 22:46 Onset: The symptoms/episode began/occurred 3 day(s) ago. The patient has experienced pm1 similar episodes in the past, a few times. The patient has been recently seen at the [facility], last week, for similar complaints. Patient has been using monistat-7 without improvement. Reports increased pain to vaginal area with bathing. 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 - Social history:: Smoking status: Patient denies any tobacco usage or history of. ROS: 22:46 Constitutional: Negative for fever, chills, and weight loss, Cardiovascular: Negative pm1 for chest pain, palpitations, and edema, Respiratory: Negative for shortness of breath, cough, wheezing, and pleuritic chest pain, Abdomen/GI: Negative for abdominal pain, nausea, vomiting, diarrhea, and constipation. 22:46 MS/Extremity: Negative for injury and deformity, Skin: Negative for injury, rash, and discoloration, Neuro: Negative for headache, weakness, numbness, tingling, and seizure. 22:46 Back: Positive for flank pain, on the left. 22:46 : Positive for flank pain, burning with urination, Negative for vaginal bleeding, vaginal discharge. Exam: 22:46 Constitutional: This is a well developed, well nourished patient who is awake, alert, pm1 and in no acute distress. Head/Face: Normocephalic, atraumatic. Cardiovascular: Regular rate and rhythm with a normal S1 and S2. No gallops, murmurs, or rubs. Normal PMI, no JVD. No pulse deficits. Respiratory: Lungs have equal breath sounds bilaterally, clear to auscultation and percussion. No rales, rhonchi or wheezes noted. No increased work of breathing, no retractions or nasal flaring. 22:46 Back: No spinal tenderness. No costovertebral tenderness. Full range of motion. Skin: Warm, dry with normal turgor. Normal color with no rashes, no lesions, and no evidence of cellulitis. MS/ Extremity: Pulses equal, no cyanosis. Neurovascular intact. Full, normal range of motion. 22:46 Abdomen/GI: Exam negative for acute changes, Inspection: abdomen appears normal, Palpation: abdomen is soft and non-tender, in all quadrants. 22:46 Neuro: Exam negative for acute changes, Orientation: is normal, Mentation: is normal, Motor: is normal, moves all fours. 08/17 01:06 : Pelvic Exam: External exam: no lesions, no ulcerations, No rash. 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 Vital Signs: 08/16 21:10 BP 142 / 90; Pulse 95; Resp 17 S; Temp 98.1(TE); Pulse Ox 100% on R/A; Weight 75.3 kg jd3 (R); Height 5 ft. 1 in. (154.94 cm) (R); Pain 08/22; 08/17 00:00 BP 123 / 93; Pulse 94; Resp 18; Pulse Ox 100% on R/A; lp1 01:25 BP 122 / 79; Pulse 90; Resp 16; Pulse Ox 100% on R/A; lp1 08/16 21:10 Body Mass Index 31.37 (75.30 kg, 154.94 cm) jd3 MDM: 08/16 22:35 Patient medically screened. pm1 08/17 00:50 Data reviewed: vital signs. Data interpreted: Pulse oximetry: on room air is 100 %. pm1 Interpretation: normal. Counseling: I had a detailed discussion with the patient and/or guardian regarding: the historical points, exam findings, and any diagnostic results supporting the discharge/admit diagnosis, lab results, the need for outpatient follow up, to return to the emergency department if symptoms worsen or persist or if there are any questions or concerns that arise at home. 08/16 22:37 Order name: Urine Microscopic Only; Complete Time: 23:47 pm1 08/16 22:37 Order name: Basic Metabolic Panel; Complete Time: 00:52 pm1 08/16 22:37 Order name: CBC with Diff; Complete Time: 00:32 pm1 08/16 22:37 Order name: Hepatic Function; Complete Time: 00:52 pm1 08/16 22:37 Order name: Lipase; Complete Time: 00:52 pm1 08/16 22:56 Order name: Urine --Ancillary (enter results) tt3 08/16 22:37 Order name: Urine Dipstick-Ancillary (obtain specimen); Complete Time: 23:23 pm1 08/16 22:37 Order name: Urine Test (obtain specimen); Complete Time: 23:18 pm1 08/16 22:37 Order name: IV Saline Lock; Complete Time: 23:15 pm1 08/16 22:37 Order name: Labs collected and sent; Complete Time: 23:15 pm1 08/16 22:56 Order name: Urine Dipstick--Ancillary (enter results); Complete Time: 23:47 tt3 08/16 22:57 Order name: Urine --Ancillary; Complete Time: 23:47 EDMS 08/16 23:36 Order name: Labs - recollect needed: all specimens hemolyzed per Holger; Complete Time: sg 01:07 Administered Medications: 08/16 23:15 Drug: NS 0.9% 1000 ml Route: IV; Rate: 1000 ml; Site: right hand; lp1 08/17 00:40 Follow up: IV Status: Completed infusion; IV Intake: 1000ml lp1 01:11 Drug: Rocephin 1 grams Route: IV; Rate: calculated rate; Site: right hand; lp1 01:23 Follow up: Response: No adverse reaction; Medication administered at discharge.; IV lp1 Status: Completed infusion; IV Intake: 10ml Disposition: 05:37 Co-signature as Attending Physician, Sawyer Sousa MD. [email or web address] Disposition: 08/17/20 00:51 Discharged to Home. Impression: Dysuria. - Condition is Stable. - Discharge Instructions: Dysuria. - Prescriptions for Pyridium 200 mg Oral Tablet - take 1 tablet by ORAL route every 8 hours for 3 days; 9 tablet. Bactrim DS 800- 160 mg Oral Tablet - take 1 tablet by ORAL route every 12 hours for 3 days; 6 tablet. - Medication Reconciliation Form, Thank You Letter, Antibiotic Education, Prescription Opioid Use form. - Follow up: Emergency Department; When: As needed; Reason: Worsening of condition. Follow up: Private Physician; When: 2 - 3 days; Reason: Recheck today's complaints, Continuance of care, Re-evaluation by your physician. - Problem is new. - Symptoms have improved. Signatures: Dispatcher [employer] EDMS Travis Madrigal RN RN Danielle Wilson RN RN lp1 Lobo Saleh, JR MEDICAL RECORDS COORDINATOR pm1 Robin Coleman RN RN jd3 Holmes, Maurice, MD MD 7 Corrections: (The following items were deleted from the chart) 01:25 00:51 08/17/2020 00:51 Discharged to Home. Impression: Dysuria. Condition is Stable. lp1 Forms are Medication Reconciliation Form, Thank You Letter, Antibiotic Education, Prescription Opioid Use. Follow up: Emergency Department; When: As needed; Reason: Worsening of condition. Follow up: Private Physician; When: 2 - 3 days; Reason: Recheck today's complaints, Continuance of care, Re-evaluation by your physician. Problem is new. Symptoms have improved. pm1
[2020-08-17] MEDS ORDERED: CEFTRIAXONE/SWI 1gm 1 GM/10 ML SYR ONE (01:24)
[2020-08-17 01:38] VITALS: TEMP 98.1; O2SAT 100
[2020-08-17 01:45] VITALS: BP 122/79
--- OUTSIDE RECORDS SUMMARY | 2020-08-20 02:01 | XMS REPORT | Continuity of Care Document ---
:1990 Author Organization [facility] t Address [address] [place] [address] Care Team Providers Name Role Phone Johnny Boyle MD Attending Clinician VALORIE Attending Clinician Unavailable CHRISTIAN Attending Clinician Unavailable ELVIRA Attending Clinician Unavailable Problems Condition Condition Condition Status Onset Resolution Last Treating Co mments Source Name Details Category Date Date Treatment Clinician Date 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[facility] neoplasm neoplasm [place] of of [place] [facility] Mental Mental Problem Active Univers retardatio retardatio it y of n n [place] [facility] Angiomyoli Angiomyoli Problem Active U nivers guevara of guevara of ity of kidney kidney [place] [facility] Tuberous Tuberous Problem Active Unive rs sclerosis sclerosis ity of [place] [facility] Localz-rlt Localz-rlt Problem Active U nivers d d [place] of symptom[place] symptom[place] epilepsy c epilepsy Ph ysici w complx w complx ans part sz, part sz, notintrac, notintrac, w status w status Allergies, Adverse Reactions, Alerts This patient has no known allergies or adverse reactions. Social History Smoking Status Start Date Stop Date Source [facility] smoked tobacco (finding) [facility] Medications Ordered Filled Start Stop Current Ordering Indication Dosage Frequency Signature Comments Components Source Medication Medication Date Date Medication? Clinician (SIG) Name Name Magnesium Magnesium 2019- Yes Na Bates [address] [facility] Oxide Oxide 9-10 10-10 as needed [facility] for leg [facility]oria 00 :00 cramps l Outpati ent Clinics Clonazepam Clonazepam 2018-11 [...] M.D. MOUTH [place] 34 DAILY Physici ans lamoTRIgine lamoTRIgine 2014-11 Yes ALONZO WAGNER Q0.5D TAKE 1 Univers 100 MG Oral 100 MG Oral 0-13 CHRISTIAN TABLET ity of Tablet Tablet 00:00: M.D. TWICE [place] 00 DAILY Physici ans Gianvi Gianvi Yes Na Bates [address] [facility] Cetirizine Cetirizine Yes Na Bates take [address] [facility] HCl HCl tablet by [facility] - mouth [facility] every day l as needed [facility] Lamictal Lamictal Yes Na Bates [address] [facility] Ondansetron Ondansetron Yes Na Bates as [facility] HCl HCl directed [facility] Lexapro Lexapro Yes Na Bates [address] [facility] Quetiapine Quetiapine Yes Na Bates TAKE [address] [facility] Fumarate Fumarate TABLET BY Mary kes - MOUTH AT Memoria BEDTIME l [facility] Afinitor Afinitor Yes Na Bates [address] [facility] Pantoprazol Pantoprazol Yes Na Bates [address] [facility] Sodium e Sodium [facility] Immunizations Ordered Filled Immunization Date Status Comments Sourc e Immunization Name Name Afluria single dose Afluria single dose 2019-08-[address] [facility] 00:[facility]00 [facility] Flucelvax - single Flucelvax - single 2018-10-[address] [facility] - dose syringe dose syringe 00:00:00 [facility] Vital Signs Vital Name Observation Time Observation Value Comments Source BP Systolic 2018-05-01 10:10:00 109 mm[Hg] [facility] Physician s BP Diastolic 2018-05-01 10:10:00 76 mm[Hg] [facility] Physician s Height 2018-05-01 10:10:00 154 cm [facility] Physician s Weight 2018-05-01 10:10:00 67.7 kg [facility] Physician s Body Mass Index 2018-05-01 10:10:00 28.55 kg/m2 [facility] Physician s Temperature 2018-05-01 10:10:00 96.5 [degF] [facility] Physician s Heart Rate 2018-05-01 10:10:00 91 /min [facility] Physician s Head Circumference 2018-05-01 10:10:00 54.7 [facility] Procedures Procedure Date / Time Performing Clinician Source Performed EKG w/Rhythm Strip 2018-04-17 00:00:00 [facility] [QLH] CBC (INCLUDES 2018-04-17 00:00:00 [facility] DIFF/PLT) Physicians [QLH] CMP W/EGFR 2018-04-17 00:00:00 [facility] [Q] EVEROLIMUS, BLOOD 2018-04-17 00:00:00 [facility] Physicians [QLH] LIPID PANEL 2018-04-17 00:00:00 [facility] [QLH] PHOSPHATE ( 2018-04-17 00:00:00 [facility] PHOSPHORUS) Physicians [QLH] PTH, INTACT 2018-04-17 00:00:00 [facility] (WITHOUT CALCIUM) Physicians [QLH] LAMOTRIGINE 2018-04-17 00:00:00 [facility]icians MRI Brain w/wo contrast 2018-04-17 00:00:00 [facility] [id number] Abdomen w/wo 2018-04-17 00:00:00 [place] contrast [id number] Physicians Encounters Start End Encounter Admission Attending Care Care Encounter Source Date/Time Date/Time Type Type Clinicians Facility Department ID 2020-08-12 2020-08-12 Outpatient [facility] [id number] [facility]00 k[facility] - [facility] l Outpati ent Clinics 2020-08-11 2020-08-11 Outpatient [facility] [id number] [facility] 2020-07-23 2020-07-23 [facility] [id number] [facility] 11:20:00 11:20:00 t [employer] [facility] Medicine Outpati ent Clinics 2020-05-28 2020-05-28 Office [facility] [id number] 10:00:39 10:15:39 Visit [facility] [id number] Cancer [id number] Center - [id number] [facility] 2020-05-11 2020-05-11 [facility] [id number] 16:25:00 16:25:00 [employer] [facility] Medicine Outpati ent Clinics 2020-05-01 2020-05-01 [facility] [id number] 13[facility]06:00 13:06:00 [employer] [facility] Medicine Outpati ent Clinics 2020-04-23 2020-04-23 [facility] [id number] 14:25:00 14:25:00 t [employer] [facility] Medicine Outpati ent Clinics 2020-04-16 2020-04-16 [facility] [id number] 13:06:00 13:06:00 t [employer] [facility] Medicine Outpati ent Clinics 2020-04-16 2020-04-16 [facility] [id number] 10:40:00 10:40:00 t [employer] [facility] Medicine Outpati ent Clinics 2020-04-13 2020-04-13 [facility] [id number] 13:19:00 13:19:00 t [employer] [facility] Medicine Medicine Outpati ent Clinics 2020-04-13 2020-04-13 [facility] [id number] 11:29:00 11:29:00 t [employer] s - [facility] Medicine Outpati ent Clinics 2020-01-15 2020-01-15 [facility] [id number] 12:20:00 12:20:00 t [place] [employer] - [employer] [facility] Medicine Outpati ent Clinics 2020-01-08 2020-01-08 [facility] [id number] 08:53:00 08:53:00 t [employer] - [employer] [facility] Medicine Outpati ent Clinics 2019-10-28 2019-10-28 [facility] [id number] 09:40:00 09:40:00 t [place] [employer] [facility] Medicine Outpati ent Clinics 2019-09-03 2019-09-03 [facility] [id number] 16:57:00 16:57:00 t [employer] - [employer] [facility] Medicine Outpati ent Clinics 2019-08-27 2019-08-27 [facility] [id number] 08:40:00 08:40:00 t Drimki [employer] [facility] Medicine Outpati ent Clinics 2019-08-22 2019-08-22 [facility] [id number] 09:20:00 09:20:00 t [employer] [facility] Medicine Medicine Outpati ent Clinics 2019-08-05 2019-08-05 [facility] [id number] 16:00:00 16:00:00 t [employer] - [employer] [facility] Medicine Outpati ent Clinics 2019-03-01 2019-03-01 [facility] [id number] 09:40:00 09:40:00 t [employer] - [employer] [facility] Medicine Outpati ent Clinics 2019-01-25 2019-01-25 [facility] [id number] 09:30:00 09:30:00 t [facility] Outpati ent Clinics 2018-10-26 2018-10-26 [facility] [id number] 09:30:00 09:30:00 t [facility] - [facility] Outpati ent Clinics 2018-07-27 2018-07-27 [facility] [id number] 10:15:00 10:15:00 t [facility] Outpati ent Clinics 2018-05-01 2018-05-01 CHRISTINE [facility] [id number] Univers 09:15:00 09:15:00 t; ALFREDO, Division of it y ike EUGENE M.D. [facility] Physicm[facility]ie MAbdoul ans 2018-05-01 2018-05-01 AppointCHRISTINE [facility] [id number] Univers 08:45:00 08:45:00 t; ALONZO GONZALES, Division of ity of ALONZO WAGNER M.D. [facility] Phys[facility] ans 2018-04-27 2018-04-27 [facility] [id number] 10:15:00 10:15:00 t [facility] 2017-05-08 2017-05-08 CHRISTINE Dorman [facility] [id number] Univers 09:00:00 09:00:00 t; Meghan FUENTES M.D. [place] FUENTES M.D. ans 2017-02-28 2017-02-28 CHRISTINE Dorman [facility] [id number] Univers 09:45:00 09:45:00 t; Meghan FUENTES M.D. [place] FUENTES M.D. ans 2017-02-28 2017-02-28 CHRISTINE Cowan [facility] [id number] Univers 09:45:00 09:45:00 t; ALONZO GONZALES, i ty of ALONZO WAGNER M.D. [place] Reji Physici ans 2017-02-28 2017-02-28 Appointmen ELVIRA, [facility] UTP [id number] Univers 09:30:00 09:30:00 sunni ASIF M.D. itjake of Jesus FELIX M.D. Physi ci ans Results Test Description Test Time Test Comments Results Result Comments Source [O] Urine Dipstick (In Office) 2018-05-01 10:25:00 Test Item Value Reference Range Interpretation Comme nts LEUKOCYTES (test code = LEUKOCYTES) Negative N NITRITE; Normal (test code = 26620-0) Negative N UROBILINOGEN; Normal (test code = 85436-3) 0.2 N PROTEIN (test code = 04111-2) 30 pH (test code = pH) 7.0 N URINE BLOOD (test code = 41915-6) Trace-Intact SPECIFIC GRAVITY; Normal (test code = 2965-2) 1.020 N KETONES; Normal (test code = 23587-3) Negative N BILIRUBIN; Normal (test code = 25660-0) Neative N GLUCOSE; Normal (test code = 1547-9) Negative N [facility] [place] [facility] Physicians
--- OUTSIDE RECORDS SUMMARY | 2020-08-20 02:04 | XMS REPORT ---
:1990 Author Organization [facility] Address [address] 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 Problem Seizures R56.9 Active 75033633 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 80064292 kidney Problem Pornography F66 Active 94411632 addiction Problem BCP ( control Z30.011 Active 74877753 pills) initiation Problem Exposure to Z20.2 Active 408527664 sexually transmitted disease (STD) 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 6062212 Problem 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 331863646 Problem Gastroesophageal K21.9 Active 368022117 reflux disease without esophagitis Problem Uses control Z30.9 Active 359994295 Problem Onychomycosis B35.1 Active 505787547 Problem Panic attacks F41.0 Active 255763072 Problem Seasonal allergies J30.2 Active 450998127 ALLERGIES No Known Allergies ENCOUNTERS from 1990 to 2020-08-14 Encounter Location Date Provider Diagnosis [address] [facility] [address] [facility] [address] [place] [address] Jul, 2020 [place] [address] IMMUNIZATIONS Vaccine Route Administration Date Status Afluria single dose IM Intramuscular Aug 05, 2019 Administere d Flucelvax - single dose syringe IM Intramuscular Oct 26, 2018 Administered SOCIAL HISTORY Tobacco Use: Social History Observation Description Date Details (start date - stop date) Never Smoker Sex Assigned At : Social History Observation Description Sex Assigned At Unknown PHQ9 Question Answer Notes Little interest or pleasure in doing things More than half t he days Feeling down, depressed, or hopeless Not at all Trouble falling or staying asleep or sleeping too much Sever al days Feeling tired or having little energy Several days Poor appetite or overeating Several days Feeling bad about yourself, or that you are a failure, Sever al days or have let yourself or your family down Trouble concentrating on things, such as reading the Several days newspaper or watching television Moving or speaking so slowly that other people could Several days have noticed; or the opposite, being so fidgety or restless that you have been moving around a lot more than usual Total Score 8 Interpretation Mild Depression Thoughts that you would be better off or of Not at all hurting yourself in some way Tobacco Use/Smoking Question Answer Notes Are you a never smoker REASON FOR REFERRAL No Information VITAL SIGNS No information MEDICATIONS Medication SIG (Take, Route, Start Date End Date Status Frequency, Duration) Azithromycin 250 MG 2 tablets on the first Jul,Aug, 0 Active day, then 1 tablet daily for 4 days Orally Once a day for 5 day(s) Cetirizine HCl 10 MG take 1 tablet by mouth Active every day as needed for allergies Orally Once a day for 90 days Clonazepam 0.5 MG 1 tablet on the tongue Oct, Active and allow to dissolve as needed for acute panic attacks Orally Once a day for 20 days Lexapro 20 MG 1 tablet Orally Once a Acti ve day for 90 days Pantoprazole Sodium 40 MG 1 tablet Orally Once a Active day for 90 days Lamictal 100 MG 1 tablet Orally Twice a A ctive day for 90 days Quetiapine Fumarate 50 MG TAKE 1 TABLET BY MOUTH AT Active BEDTIME for 30 Magnesium Oxide 400 MG 1 tablet as needed for 10 Jul, 2020 Aug, Active leg cramps Orally Once a day for 30 day(s) Ondansetron HCl 4 MG as directed Orally one Active tablet by mouth every 4 hrs Benzonatate 100 MG 1 capsule as needed Jul, Aug, Ac tive Orally two times a day prn cough for 30 days Gianvi 3-0.02 MG 1 tablet Orally Once a A ctive day for 28 day(s) Afinitor 5 MG 1 tablet Orally Once a Unkn own day PROCEDURES No Information RESULTS No Results REASON FOR VISIT SICK MEDICAL (GENERAL) HISTORY Type Description Date Medical History Moderate mental retardation Medical History Tuberous sclerosis Medical History Angiomyolipoma of kidney Medical History Angiomyolipoma of left kidney Medical History Seizures Medical History Depression with anxiety Medical History Insomnia Medical History Obesity Medical History Back pain Surgical History etc device for her seizure Goals Section No Information Health Concerns No Information MEDICAL EQUIPMENT No Information MENTAL STATUS No Information FUNCTIONAL STATUS No Information ASSESSMENTS No Information PLAN OF TREATMENT Medication Medication Name Sig Start Date Stop Date Azithromycin 250 MG 2 tablets on the first day, then 1 Jul, Aug, tablet daily for 4 days Orally Once a day for 5 day(s) Benzonatate 100 MG 1 capsule as needed Orally two times a 30 JulAug, day prn cough for 30 days Next Appt Details Provider Name:Shantelle Bates, 2020-10-22 11:0 0:00 AM, [address] [place], [address], [place], [address], Insurance Providers Payer Name Payer Payer Insured Patient Coverage Coverage End Address Phone Name Relationship to Start Date Fede e Insured [place]BIN [phone] [place] [address] [address]
--- OUTSIDE RECORDS SUMMARY | 2020-08-20 02:04 | XMS REPORT ---
[...] Status Dosage System Date Date Clonazepam ND 54809729917 0.5 MG Orally Oct 28, Active 1 t ablet on Once a day 2019 the tongue and allow to dissolve as needed for acute panic attacks Gianvi [facility] 11327150805 3-0.02 MG Active 1 tablet Orally Once a day Cetirizine HCl ND 97551575847 10 MG Orally Active take 1 Once a day tablet by mouth every day as needed for allergies Lamictal ND 81013262233 100 MG Orally Active 1 tab let Twice a day Ondansetron HCl [facility] 76899784771 4 MG Orally one Acti ve as directed tablet by mouth every 4 hrs Lexapro [facility] 88204057514 20 MG Orally Active 1 table t Once a day Quetiapine [facility] 48815144554 50 MG Active TAKE 1 Fumarate TABLET BY MOUTH AT BEDTIME Afinitor [facility] 23163212451 5 MG Orally Active 1 table t Once a day Pantoprazole [facility] 35480045500 40 MG Orally Active 1 tablet Sodium Once a day Magnesium Oxide [facility] 47899673233 400 MG Orally Jul 23, Aug 22, Activ e 1 tablet as Once a day 2019 2019 needed for leg cramps Results Name Result Date Reference Range Unit Abnormali ty Flag Magnesium ----Magnesium 2.2 20200723 1.8-2.4 mg/dL Summary Purpose eClinicalWorks Submission
--- OUTSIDE RECORDS SUMMARY | 2020-08-20 02:04 | XMS REPORT ---
:1990 Author Organization [facility] Address [address] 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 75134884183831 06 left kidney Problem Moderate mental F71 Active 74938650 retardation Problem Seizures R56.9 Active 73899721 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 88218344 kidney Problem Pornography F66 Active 02047040 addiction Problem BCP ( control Z30.011 Active 75027960 pills) initiation Problem Exposure to Z20.2 Active 835846592 sexually transmitted disease (STD) 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 5809064 Problem 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 180525811 Problem Gastroesophageal K21.9 Active 733791733 reflux disease without esophagitis Problem Uses control Z30.9 Active 851415389 Problem Onychomycosis B35.1 Active 042542845 Problem Panic attacks F41.0 Active 187791488 Problem Seasonal allergies J30.2 Active 160471887 ALLERGIES No Known Allergies ENCOUNTERS from 1990 to 2020-08-13 Encounter [facility] Date [facility] [address] [place] [facility] Jul, Shantelle Hewitt te pharyngitis, Family Medicine [address], [place] [address] J02.9 ; Cough R05 ; Hematuria, unsp ecified R31.9 ; Tuberou s sclerosis Q85.1 and 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 IMMUNIZATIONS Vaccine Route Administration Date Status Afluria [...] 400 MG 1 tablet as needed for Jul, Aug, Active leg cramps Orally Once a [...] MG 1 tablet Orally Once a Unkn day PROCEDURES No Information RESULTS No Results REASON FOR VISIT cough, sore throat MEDICAL (GENERAL) HISTORY Type Description Date Medical [...] No Information FUNCTIONAL STATUS No Information ASSESSMENTS Encounter Date Diagnosis Notes Jul, Angiomyolipoma of left kidney (ICD-10 - D30.02) Jul, Cough (ICD-10 - R05) Jul, Tuberous sclerosis (ICD-10 - Q85.1) Jul, Hematuria, unspecified (ICD-10 - R31.9) Jul, Acute pharyngitis, unspecified etiology (ICD-10 - J02.9) PLAN OF TREATMENT Medication Medication Name Sig Start Date Stop Date Azithromycin 250 MG 2 tablets on the first day, then 1 Jul, Aug, tablet daily for 4 days Orally Once a day for 5 day(s) Benzonatate 100 MG 1 capsule as needed Orally two times a JulAug, day prn cough for 30 days Treatment Notes Assessment Notes Clinical Notes Acute pharyngitis, unspecified declined covid testing states etiology already had covid test and negative. was given albuterol in ER.would like something to help with cough and sore throat.strep throat is contagious so take every measure you can to prevent from spreading it back and forth. Complete your antibiotics as prescribed. Do warm salt water gargles if tolerable. Take otc Motrin or Tylenol for any fever or pain. Get a new toothbrush once you feel better to keep from re-infecting yourself. Hematuria, unspecified need to f/u with rating specialist and urologist Tuberous sclerosis cont f/u with neurology Angiomyolipoma of left kidney f/u with rating specialist Next Appt Details 3 Months Reason: Provider Name:Shantelle Bates, 2020-10-22 11:0 0:00 AM, [address], [place], [address], Insurance Providers Payer Name Payer Payer Insured Patient Coverage Coverage End Address Phone Name Relationship to Start Date Fede e Insured RUDD [phone] Henrietta Wall self [address] [address]
== END 2020-08-17 01:25 | disposition home or self-care (01) ==
LOC: ER 21:03
DX: R30.0 Dysuria (principal); G40.909 Epilepsy, unspecified, not intractable, without status epilepticus
CPT/HCPCS: 96361; 85025; 80048; 36415; 81025; 80076; 83690; 96374; 99284; J0696; J7030; 81003; 81015

== ENCOUNTER 2020-10-01 13:48 | Emergency (ER) | payer MEDICAID ==
--- OUTSIDE RECORDS SUMMARY | 2020-10-01 14:35 | XMS REPORT ---
[...] Status Dosage System Date Date Clonazepam ND 36813477966 0.5 MG Orally Oct 28, Active 1 t ablet on Once a day 2019 the tongue and allow to dissolve as needed for acute panic attacks Gianvi [facility] 19067465525 3-0.02 MG Active 1 tablet Orally Once a day Cetirizine HCl ND 92401140778 10 MG Orally Active take 1 Once a day tablet by mouth every day as needed for allergies Lamictal ND 00043982327 100 MG Orally Active 1 tab let Twice a day Ondansetron HCl [facility] 25929982247 4 MG Orally one Acti ve as directed tablet by mouth every [address] [facility] 50785242839 20 MG Orally Active 1 table t Once a day Quetiapine [facility] 94390262481 50 MG Active TAKE 1 Fumarate TABLET BY MOUTH AT BEDTIME Afinitor [facility] 35871002272 5 MG Orally Active 1 table t Once a day Pantoprazole [facility] 05706474108 40 MG Orally Active 1 tablet Sodium Once a day Magnesium Oxide [facility] 07942770059 400 MG Orally Jul 23, Aug 22, Activ e 1 tablet as Once a day 2019 2019 needed for leg cramps Results Name Result Date Reference Range Unit Abnormali ty Flag Magnesium ----Magnesium 2.2 20200723 1.8-2.4 mg/dL Summary Purpose eClinicalWorks Submission
--- OUTSIDE RECORDS SUMMARY | 2020-10-01 14:35 | XMS REPORT | Summary of Care ---
:1990 Author Name ELVIRA Mendoza Address [facility] Unavailable , Care Team Providers Name Role Phone CHRISTIAN Mendoza Unavailable Unavailable Dusty Sargent Unavailable Unavailable VALORIE Mendoza Unavailable Unavailable DEEPIKA HUERTA Unavailable Unavailable DEEPIKA HUERTA, L Unavailable Unavailable Unavailable Unavailable Unavailable Functional Status Name Dates Details Functional status health issues are not documented Status: Name Dates Details Cognitive status health issues are not documented Status: Problems Name Dates Details Benign neoplasm of kidney (223.0, D30.00) Status: Active Mental retardation (319, F79) Status: Ac tive Angiomyolipoma of kidney (223.0, D17.71) Status: Active Tuberous sclerosis (759.5, Q85.1) Status : Active Localz-rltd symptomatic epilepsy w compl x part sz, notintrac, w status (345.40, G40.201) Status: Active Medications Name Dates Details lamoTRIgine 100 MG Oral Tablet TAKE 1 TABLET TWICE DAILY Quantity: 60 Refills: 6 ALONZO GONZALES M.D. Start : 25-Aug-2015 Active Afinitor 5 MG Oral Tablet TAKE 1 TABLET BY MOUTH DAILY Quantity: 28 Refills: 6 ALFREDO EUGENE M.D. Start : 04-Jul-2018 Active Allergies and Adverse Reactions Name Dates Details No Known Drug Allergies (Allergy) Status : Active Procedures Procedure Dates Details Procedures not documented Immunization Name Dates Details Immunizations not documented Social History Name Dates Details - Status: Name Dates Details Never smoked tobacco (finding) Vital Signs Date Test Result Details No Known Vitals to report Results Date Description Value Details Results not documented Plan of Care Name Dates Details Planned Observations Planned Goals not documented Instructions Name Dates Details Instructions not documented Encounters No Encounter data documented On: 18-Aug-2020 Encounter Diagnosis: Problem not documented
--- OUTSIDE RECORDS SUMMARY | 2020-10-01 14:35 | XMS REPORT ---
:1990 Author Organization [facility] Address [address] 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 84763888559843 06 left kidney Problem Moderate mental F71 Active 54184772 retardation Problem Seizures R56.9 Active 65680189 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 92518603 kidney Problem Pornography F66 Active 84487440 addiction Problem BCP ( control Z30.011 Active 78794349 pills) initiation Problem Exposure to Z20.2 Active 640056880 sexually transmitted disease (STD) 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 8476800 Problem 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 276063200 Problem Gastroesophageal K21.9 Active 328478118 reflux disease without esophagitis Problem Uses control Z30.9 Active 914392773 Problem Onychomycosis B35.1 Active 078560221 Problem Panic attacks F41.0 Active 926992405 Problem Seasonal allergies J30.2 Active 142987441 ALLERGIES No Known Allergies ENCOUNTERS from 1990 to 2020-08-14 Encounter Location Date Provider Diagnosis [address] [facility] [address] [facility] [address] [place] [address] Jul, 2020 [place] [address] IMMUNIZATIONS Vaccine Route Administration Date Status Afluria [...] Name:Shantelle Bates, 2020-10-22 11:0 0:00 AM, [address] [place], [address], [place], [address], Insurance Providers Payer Name Payer Payer Insured Patient Coverage Coverage End Address Phone Name Relationship to Start Date Fede e Insured TOBIN [phone] [place] [address] [address]
--- OUTSIDE RECORDS SUMMARY | 2020-10-01 14:35 | XMS REPORT ---
:1990 Author Organization [facility] Address [address] 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 Problem Seizures R56.9 Active 61220986 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 88298879 kidney Problem Pornography F66 Active 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 Problem BCP ( control Z30.011 Active 53240366 pills) initiation Problem Exposure to Z20.2 Active 955083732 sexually transmitted disease (STD) 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 1083593 Problem 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 339623866 Problem Gastroesophageal K21.9 Active 248164565 reflux disease without esophagitis Problem Uses control Z30.9 Active 552645340 Problem Onychomycosis B35.1 Active 697454687 Problem Panic attacks F41.0 Active 901442521 Problem Seasonal allergies J30.2 Active 277708005 ALLERGIES No Known Allergies ENCOUNTERS from 1990 to 2020-08-13 Encounter Location Date [facility] [address] [place] [facility] Jul, Shantelle Hewitt te pharyngitis, Family Medicine [address], [place] [address] J02.9 ; Cough R05 ; Hematuria, unsp [...] yourself. Hematuria, unspecified need to f/u with communication specialist and urologist Tuberous sclerosis cont f/u with neurology Angiomyolipoma of left kidney f/u with communication specialist Next Appt Details 3 Months Reason: Provider Name:Shantelle Bates, 2020-10-22 11:0 0:00 AM, [address], [address], [place], [address], Insurance Providers Payer Name Payer Payer Insured Patient Coverage Coverage End Address Phone Name Relationship to Start Date Fede e Insured RUDD [phone] [place] self [address] [address]
--- OUTSIDE RECORDS SUMMARY | 2020-10-01 14:35 | XMS REPORT | Continuity of Care Document ---
:1990 Author Organization [facility] Address [address] [place] [address] Care Team Providers Name Role Phone 2, Adult Infusion Nurse Attending Clinician Unavailable Jennifer NORRIS Attending Clinician Doctor Unassigned, Name Attending Clinician Unavailable Krysta Angulo Attending Clinician VALORIE Attending Clinician Unavailable CHRISTIAN Attending Clinician Unavailable ELVIRA Attending Clinician Unavailable Problems Condition Condition Condition Status Onset Resolution Last Treating Co mments Source Name Details Category Date Date Treatment Clinician Date 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[facility] neoplasm neoplasm [place] [facility] Mental Mental Problem Active [facility] retardatio retardatio it y of n n [place] [facility] Angiomyoli Angiomyoli Problem Active U nivers guevara of guevara of ity of kidney kidney [place] [facility] Tuberous Tuberous Problem Active Unive rs sclerosis sclerosis it[facility] of [place] [facility] Localz-rlt Localz-rlt Problem Active U [...] Date Source Never smoked tobacco (finding) [facility] Medications Ordered Filled Start Stop Current Ordering Indication Dosage Frequency Signature Comments Components Source Medication Medication Date Date Medication? Clinician (SIG) Name Name Magnesium Magnesium 2020-0 2020- Yes Na Bates [address] [facility] Oxide Oxide 9-10 10-10 as needed [facility] for leg [facility] 00 :00 [facility]amps [facility] Clonazepam Clonazepam 2018-11 Yes Na [...] M.D. TWICE [place] 00 DAILY [facility] Manasvi Gianvi Yes Na Bates [address] [facility] Cetirizine Cetirizine Yes Na Bates take [address] [facility] HCl HCl tablet by [facility] - mouth Memoria every day l as needed [facility] Clin[facility] Lamictal Lamictal Yes Na Bates [address] [facility] Ondansetron Ondansetron Yes Na Bates as [facility] HCl HCl directed [facility] Lexapro Lexapro Yes Na Bates [address] [facility] Quetiapine Quetiapine Yes Na Bates TAKE [address] [facility] Fumarate Fumarate TABLET BY Mary kes - MOUTH AT Memoria BEDTIME l [facility] Afinitor Afinitor Yes Na Bates [address] [facility] Pantoprazol Pantoprazol Yes Na Bates [address] [facility] Sodium e Sodium [facility] Immunizations Ordered Filled Immunization Date Status Comments Sour e Immunization Name Name Afluria single dose Afluria single dose 2019-08-[address] [facility]00 [facility] Flucelvax - single Flucelvax - single 2018-10-[address] [facility] - dose syringe dose syringe 00:00:00 [facility] Vital Signs Vital Name Observation Time Observation Value Comments Source BP Systolic 2018-05-01 10:10:00 109 mm[Hg] [facility] Physician s BP Diastolic 2018-05-01 10:10:00 76 mm[Hg] [facility] Physician s Height 2018-05-01 10:10:00 154 cm [facility] Physician s Weight 2018-05-01 10:10:00 67.7 kg [facility] Physician s Body Mass Index 2018-05-01 10:10:00 28.55 kg/m2 [facility] Temperature 2018-05-01 10:10:00 96.5 [degF] [facility] Physician s Heart Rate 2018-05-01 10:10:00 91 /min [facility] Physician s Head Circumference 2018-05-01 10:10:00 54.7 [facility] Procedure Date / Time Performing Clinician Source Performed EKG w/Rhythm Strip 2018-04-17 00:00:00 [facility] Physicians [QLH] CBC (INCLUDES 2018-04-17 00:00:00 [facility] DIFF/PLT) Physicians [QLH] CMP W/EGFR 2018-04-17 00:00:00 [facility] [Q] EVEROLIMUS, BLOOD 2018-04-17 00:00:00 [facility] Physicians [QLH] LIPID PANEL 2018-04-17 00:00:00 [facility]icians [QLH] PHOSPHATE ( 2018-04-17 00:00:00 [facility] PHOSPHORUS) Physicians [QL] PTH, INTACT 2018-04-17 00:00:00 [facility] (WITHOUT CALCIUM) Physicians [QLH] LAMOTRIGINE 2018-04-17 00:00:00 [facility] MRI Brain w/wo contrast 2018-04-17 00:00:00 [facility] [address] Abdomen w/wo 2018-04-17 00:00:00 [facility] [place] contrast [id number] Physicians Encounters Start End Encounter Admission Attending Care Care Encounter Source Date/Time Date/Time Type Type Clinicians Facility Department ID 2020-09-29 2020-09-29 Nurse HarmonySilvana MTALEXANDRA [id number] 08:34:41 10:44:10 Visit Adult SPECIALTY 350.1.13.10 Infusion CARE 4.2.7.2.686 Nurse [place] [phone] MARIO Franny [facility] 2020-09-19 2020-09-19 Outpatient [facility] [id number] [facility] 2020-09-16 2020-09-16 Jesika Rodríguez [id number] 00:00:00 00:00:00 Management H 350.1.13.10 [facility] 4.2.7.2.686 [id number] 2020-09-16 2020-09-16 Orders Doctor PAOLA [id number] 00:00:00 00:00:00 Only Unassigned, RISSA 350.1.13.10 Estelline [facility] 4.2.7.2.686 [id number] 2020-09-14 2020-09-14 Outpatient [facility] [id number] [facility] 2020-09-10 2020-09-10 Telephone Natali [facility] [id number] 00:00:00 00:00:00 Yadira Chaparro OUT OF TOWN COLLECTION CLERK 350.1.13.10 [facility] 4.2.7.2.686 MATERNAL [id number] & CHILD [address] [place] [address] 2020-09-03 2020-09-03 Outpatient [facility] [id number] [facility] 2020-09-01 2020-09-01 Outpatient [facility] [id number] [facility] 2020-08-12 2020-08-12 Outpatient [facility] [id number] [facility] 2020-08-11 2020-08-11 Outpatient [facility] [id number] [facility] 2020-07-23 2020-07-23 [facility] [id number] [address] 11:20:00 11:20:00 [facility] Medicine Outpati ent Clinics 2020-05-11 2020-05-11 [facility] [id number] 16:25:00 16:25:00 t [facility] Medicine Outpati ent Clinics 2020-05-01 2020-05-01 [facility] [id number] 13[facility]06:00 13:06:00 t [employer] [facility] Medicine Outpati ent Clinics 2020-04-23 2020-04-23 [facility] [id number] 14:25:00 14:25:00 t [facility] Medicine Outpati ent Clinics 2020-04-16 2020-04-16 [facility] [id number] 13:06:00 13:06:00 [employer] [facility] Medicine Outpati ent Clinics 2020-04-16 2020-04-16 [facility] [id number] 10:40:00 10:40:00 t [facility] Medicine Outpati ent Clinics 2020-04-13 2020-04-13 [facility] [id number] 13:19:00 13:19:00 t [facility] Medicine Outpati ent Clinics 2020-04-13 2020-04-13 [facility] [id number] 11:29:00 11:29:00 t [facility] Medicine Outpati ent Clinics 2020-01-15 2020-01-15 [facility] [id number] 12:20:00 12:20:00 t [facility] - [facility] Medicine Medicine Outpati ent Clinics 2020-01-08 2020-01-08 [facility] [id number] 08:53:00 08:53:00 t [facility] - Drive [facility] Medicine l Medicine Outpati ent Clinics 2019-10-28 2019-10-28 [facility] [id number] 09:40:00 09:40:00 t [facility] - [facility] Medicine l Medicine Outpati ent Clinics 2019-09-03 2019-09-03 [facility] [id number] 16:57:00 16:57:00 t [facility] - [place] [facility] l Medicine Outpati ent Clinics 2019-08-27 2019-08-27 [facility] [id number] 08:40:00 08:40:00 t [facility] - [facility] [facility] Medicine Outpati ent Clinics 2019-08-22 2019-08-22 [facility] [id number] 09:20:00 09:20:00 t [facility] - [place] [facility] l Medicine Outpati ent Clinics 2019-08-05 2019-08-05 [facility] [id number] 16:00:00 16:00:00 t [facility] - [place] [facility] Medicine Outpati ent Clinics 2019-03-01 2019-03-01 [facility] [id number] 09:40:00 09:40:00 t [facility] Medicine Outpati ent Clinics 2019-01-25 2019-01-25 [facility] [id number] 09:30:00 09:30:00 t [facility] - [place] [facility] l Medicine Outpati ent Clinics 2018-10-26 2018-10-26 [facility] [id number] 09:30:00 09:30:00 t [facility] 2018-07-27 2018-07-27 [facility] [id number] 10:15:00 10:15:00 [place] [employer] [facility] 2018-05-01 2018-05-01 AppointCHRISTINE Lee [facility] [id number] Univers 09:15:00 09:15:00 t; ALFREDO, Division of it y ike EUGENE M.D. [facility] Trace FUENTES M.D. ans 2018-05-01 2018-05-01 Appointmen CHRISTINE GONZALES [facility] [id number] Univers 08:45:00 08:45:00 t; ALONZO GONZALES, of keesha of ALONZO WAGNER M.D. [facility] [employer] Physici ans 2018-04-27 2018-04-27 [facility] [id number] 10:15:00 10:15:00 t [place] [employer] [facility] 2017-05-08 2017-05-08 AppointCHRISTINE Lee [facility] [id number] Univers 09:00:00 09:00:00 t; Meghan FUENTES M.D. [place] Bernice FUENTES M.D. ans 2017-02-28 2017-02-28 AppointCHRISTINE Lee [facility] [id number] Univers 09:45:00 09:45:00 t; Meghan FUENTES M.D. [place] Bernice FUENTES M.D. ans 2017-02-28 2017-02-28 Appointnessa GONZALES [facility] [id number] Univers 09:45:00 09:45:00 t; ALONZO GONZALES, i maddy of Reji WOODS M.D. Physici ans 2017-02-28 2017-02-28 AppointCHRISTINE Rogers [facility] [id number] Univers 09:30:00 09:30:00 t; Reji ASIFRUJesus Isbell M.D. Physi ci ans Results Test Description Test Time Test Comments Results Result Comments Source [O] Urine Dipstick (In Office) 2018-05-01 10:25:00 Test Item Value Reference Range Interpretation Comme nts LEUKOCYTES (test code = LEUKOCYTES) Negative N NITRITE; Normal (test code = 54669-8) Negative N UROBILINOGEN; Normal (test code = 09067-5) 0.2 N PROTEIN (test code = 59304-5) 30 pH (test code = pH) 7.0 N URINE BLOOD (test code = 40082-7) Trace-Intact SPECIFIC GRAVITY; Normal (test code = 2965-2) 1.020 N KETONES; Normal (test code = 97625-9) Negative N BILIRUBIN; Normal (test code = 98409-7) Neative N GLUCOSE; Normal (test code = 1547-9) Negative N [facility]
--- OUTSIDE RECORDS SUMMARY | 2020-10-01 14:36 | XMS REPORT | Summary of Care ---
:1990 Author Organization [facility] Address [address] [place] [id number] Care Team Providers Name Role Phone Zaki Boyle Primary Care Provider Reason for Visit Reason Comments Well Woman Exam Encounter Details Date Type Department Care Team Description 08/27/2020 [facility] Boy[facility] Wel l woman exam (Primary Dx); [facility]; [address]; [address] Vaginal discharge; [place], [place] [address] Screen for STD (sexually transmitted dis ease); [id number] Need for vaccination; [phone] BMI 34.0- 34.9,adult Allergies No Known Allergiesdocumented as of this encounter (statuses as of 08/28/2020) Medications Medication Sig Dispensed Refills Start Date [...] tabletIndications: Angiomyolipoma of both kidneys, Tuberous sclerosis PROAIR HFA 90 INHALE 1 TO 2 0 08/09/2020 A ctive mcg/actuation inhaler PUFFS BY MOUTH EVERY 4 TO 6 HOURS NEEDED FOR COUGH amoxicillin 500 mg 0 08/25/2020 Active capsule azithromycin 250 mg TAKE 2 TABLETS BY 0 08/12/2020 Active tablet MOUTH TODAY, THEN TAKE 1 TABLET DAILY FOR 4 DAYS benzonatate 100 mg 0 08/13/2020 Active capsule chlorhexidine 0.12 % 0 08/25/2020 Active mouthwash cyclobenzaprine 10 mg Take 10 mg by 0 04/14/2020 Active tablet mouth. diclofenac 75 mg EC Take 75 mg by 0 04/14/2020 Active tablet mouth. Hydrocodone-Acetamino 0 08/25/2020 Active phen 5-300 mg tablet magnesium oxide 400 TAKE 1 TABLET BY 0 07/23/2020 Active mg (241.3 mg MOUTH NEEDED magnesium) tablet FOR LEG CRAMPS ONCE A DAY pantoprazole 40 mg EC Take 40 mg by 0 07/23/2020 Active tablet mouth daily. QUEtiapine 50 mg Take 50 mg by 0 03/31/2020 Active tablet mouth. sulfamethoxazole-trim 0 08/17/2020 Active ethoprim 800-160 mg per tablet documented as of this encounter (statuses as of 08/28/2020) Active Problems Problem Noted Date Depression, major, single episode, mild 05/21/2020 Overview: Last Assessment & Plan: Condition: stable No recent mental health visit. Advised t o follow up Take medications as ordered by Provider; notify Provider if you cannot take medications as ordered or are having difficulties or side-effects from medications (do not stop medications without notifying Provider). If symptoms worsen or do not improve/sta bilize, notify health care provider right away. If thoughts of harming self or others no tify health care provider immediately &/or seek urgent/emergent care including calling Suicide Hotline ( ) or 911. Follow up in one month with Psychologist , Counselor, Support group, Psychologist/Counselor/SupportGroup/Psychiatrist and PCP Seizures 04/22/2020 Overview: Last Assessment & Plan: Condition: stable Take medication as prescribed. No bathing, swimming, operating [employer] s machinery, climbing ladders without supervision No driving unless cleared by your health care provider. Follow up in: three months Chronic left-sided low back pain 04/22/2020 Overview: Last Assessment & Plan: Condition: stable Take pain medication as prescribed. Practice non-pharmacological pain reduct ion techniques/interventions such as, deep breathing exercises, massage, gel packs, if indicated to be safe by PCP. Monitor for worsening of back pain in co mbination with other signs and symptoms of worsening disease and see PCP as soon as possible. Follow up in: three months Constipation 04/22/2020 Overview: Last Assessment & Plan: Condition: stable Follow up in: three months Environmental and seasonal allergies 04/22/2020 Overview: Last Assessment & Plan: Condition: stable Follow up in: three months Gastroesophageal reflux disease without esophagitis Nausea 04/22/2020 Nerve pain 04/22/2020 Overview: Last Assessment & Plan: Condition: stable Follow up in: three months Primary insomnia 04/22/2020 Overview: Last Assessment & Plan: Condition: stable Follow up in: three months Status post nephrectomy 12/05/2019 Pulmonary nodules 12/05/2019 Renal mass 10/02/2019 Overview: Added automatically from request for luz maria vel [id number] 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 Overview: Added automatically from request for luz maria vel [id number] Obesity (BMI 30-39.9) 09/27/2019 Mass of right kidney 09/26/2019 documented as of this encounter (statuses as of 08/28/2020) Immunizations Name Administration Dates Next Due Influenza Virus Vaccine Quad .5 mL IM 6+ MO 08/27/2020, 09/13 documented as of this encounter Social History [...] Assigned at Date Recorded Not on file COVID-19 Exposure Response Date Recorded In the last month, have you been in contact with No / Unsure 08/27/2020 2:27 PM CDT someone who was confirmed or suspected to have Coronavirus / COVID-19? documented as of this encounter Last Filed Vital Signs Vital Sign Reading Time Taken Comments Blood Pressure 135/91 08/27/2020 2:33 PM CDT Pulse 84 08/27/2020 2:29 PM CDT Temperature 36.7 C (98 F) 08/27/2020 2:29 PM CDT Respiratory Rate 16 08/27/2020 2:29 PM CDT Oxygen Saturation - - Inhaled Oxygen Concentration - - Weight 82.2 kg (181 lb 4 oz) 08/27/2020 2:29 PM CDT Height 154.9 cm (5' 1") 08/27/2020 2:29 PM CDT Body Mass Index 34.25 08/27/2020 2:29 PM CDT documented in this encounter Patient Instructions Patient InstructionsKarla Bravo LVN - 08/27/2020 2:30 PM CDT Patient Education Clinical Breast Exam Many health organizations recommend a yearly clinical breast exam. This exam may be done by a candy dipper, family healthcare provider, nurse practitioner, nurse bung remover, or specially trained nurse. Yearly breast exams help tomake surethat breast conditions are found early. Your healthcare providers role A healthcare professional knows the tests and follow-up care needed if a problem is found. Your clinical exam is also a great time to ask questions about breast self-exams. You can find out if yourechecking your breasts in the best way. Or you may want to ask how , breast implants, or breast reduction surgery affect the way you should check your breasts. Diagnostic tests If a clinical exam reveals a breast change, you may have other tests to find out more. These tests may include: Mammography. A low-dose X-ray of your breast tissue. Ultrasound. An imaging test that uses sound waves to create images of your breast. Biopsy. A small amount of breast tissue is removed by needle or by a cut (incision). The tissue is then checked under a microscope. Guidelines for having clinical breast exams The [employer] recommends that starting at age 29, you should have a clinical breast exam every 1 to 3 years. After age 40, have a clinical breast exam each year. If youre at higher risk for breast cancer, you may need exams more often. Risk factors for breast cancer may include: Being over 50 or postmenopausal Having a family history of breast cancer Having the BRCA1 or BRCA2 gene mutation or certain other gene mutations Having more menstrual periods due to starting menstruation early(before age 12) or having a late menopause (after age 55) Having no pregnancies Having a first after age 30 Being obese Having a history of radiation treatment to your chest area Exposure to MARK during your mother's Not being active Drinking too much alcohol Having dense breast tissue Taking hormone therapy after menopause Other health organizations have different recommendations. Talk with your healthcare provider about what is best for you. [employer] last reviewed this educational content on 02/12/202019990850-4807 [employer]. All rights reserved. This information is not intended as a substitute for professional medical care. Always follow your healthcare professional's instructions. Patient Education Breast Health: Breast Self-Awareness What is breast self-awareness? Breast self-awareness is knowing how your breasts normally look and feel. Your breasts change as yougo through different stages of your life. So its important to learn what is normal for your breasts. Knowing about your breasts helps you spot any changes in them right away. Tell your healthcare provider about any changes. Why is breast self-awareness important? Many experts now say that women should focus on breast self-awareness instead of doing a breast self-examination (BSE). These experts include the [employer] and the [employer]. Some experts even advise not teaching women to do a BSE. Thats because research hasnt shown a clear benefit to doing BSEs. Breast self-awareness is different than a BSE. It isnt about following a certain method and schedule. Its about knowing what's normal for your breasts. That way you can spot even small changes right away. If you see any changes, tell your healthcare provider. Changes to look for Call your healthcare provider if you find any changes in your breasts that worry you. These changes may be: A lump Nipple discharge other than breast milk, especially if it's bloody Swelling A change in size or shape Skin changes, such as redness, thickening, or dimpling of the skin Swollen lymph nodes in the armpit Nipple problems, such as pain or redness If you find a lump Call your provider if you find lumpiness in one breast. Also call if you feel something different inthe tissue or feel a definite lump. Sometimes lumpiness may be due to menstrual changes. But there may be reason for concern. Your provider may want to see you right away if you have: Nipple discharge that is bloody Skin changes on your breast, such as dimpling or puckering Its okay to be upset if you find a lump. Be sure to call your provider right away. Remember that most breast lumps are benign. This means they are not cancer. [employer] last reviewed this educational content on 03/13/202019992532-8844 [employer]. All rights reserved. This information is not intended as a substitute for professional medical care. Always follow your healthcare professional's instructions. Patient Education Prevention Guidelines,Women Ages 18 to 39 Screening tests and vaccines are an important part of managing your health. A screening test is doneto find possible disorders or diseases in people who don't have any symptoms. The goal is to find a disease early so lifestyle changes can be made and you can be watched more closely to reduce the riskof disease, or to detect it early enough to treat it most effectively. Screening tests are not considered diagnostic, but are used to determine if more testing is needed. Health counseling is essential, too. Below are guidelines for these, for women ages 18 to 39. Talk with your healthcare provider tomake sure youre up-to-date on what you need. Screening Who needs it How often Alcohol misuse All women in this age group At routine exams Blood pressure All women in this age group Yearly checkup if your blood pressure is normal Normal blood pressure is less than 120/80 mm Hg If your blood pressure reading is higher than normal, follow the advice of your healthcare provider Breast cancer All women in this age group should talk with their healthcare providers about the needfor clinical breast exams (CBE)1 Clinical breast exam every 3 years1 Cervical cancer Women ages 21 and older Women between ages 21 and 29 should have a Pap test every 3years; women between ages 30 and 65 are advised to have a Pap test plus an HPV test every 5 years Chlamydia Sexually active women ages 24 and younger, and women at increased risk for infection Every 3 years if you're at risk or have symptoms Depression All women in this age group At routine exams Diabetes mellitus, type 2 Adults with no symptoms who are overweight or obese and have 1 or more other risk factors for diabetes At least every 3 years. Also, testing for diabetes during after the 24th week. Gonorrhea Sexually active women at increased risk for infection At routine exams Hepatitis C Anyone at increased risk At routine exams HIV All women At routine exams3 Obesity All women in this age group At routine exams Syphilis Women at increased risk for infection should talk with their healthcare provider At routine exams Tuberculosis Women at increased risk for infection should talk with their healthcare provider Ask your healthcare provider Vision All women in this age group At least 1 complete exam in your 20s, and 2 in your 30s Vaccine Who needs it How often Chickenpox (varicella) All women in this age group who have no record of this infection or vaccine2 doses; the second dose should be given 4 to 8 weeks after the first dose Hepatitis A Women at increased risk for infection should talk with their healthcare provider 2 doses given at least 6 months apart Hepatitis B Women at increased risk for infection should talk with their healthcare provider 3 doses over 6 months; second dose should be given 1 month after the first dose; the third dose should be given at least 2 months after the second dose and at least 4 months after the first dose Haemophilus influenzae Type B (HIB) Women at increased risk for infection should talk with their healthcare provider 1 to 3 doses Human papillomavirus (HPV) All women in this age group up to age 26 3 doses; the second dose should be given 1 to 2 months after the first dose and the third dose given 6 months after the first dose Influenza (flu) All women in this age group Once a year Measles, mumps, rubella (MMR) All women in this age group who have no record of these infections orvaccines 1 or 2 doses Meningococcal Women at increased risk for infection should talk with their healthcare provider 1 ormore doses Pneumococcal conjugate vaccine (PCV13)and pneumococcal polysaccharidevaccine(PPSV23) Women atincreased risk for infection should talk with their healthcare provider PCV13: 1 dose ages 19 to 65(protects against 13 types of pneumococcal bacteria) PPSV23: 1 to2 doses through age 64, or 1 dose at 65 or older (protects against 23 types of pneumococcal bacteria) Tetanus/diphtheria/pertussis (Td/Tdap) booster All women in this age group Td every 10 years, or a one-time dose of Tdap instead of a Td booster after age 18, then Td every 10 years Counseling Who needs it How often BRCA gene mutation testing for breast and ovarian cancer susceptibility Women with increased risk for having gene mutation When your risk is known Breast cancer and chemoprevention Women at high risk for breast cancer When your risk is known Diet and exercise Women who are overweight or obese When diagnosed, and then at routine exams Domestic violence Women at the age in which they are able to have children At routine exams Sexually transmitted infection prevention Women who are sexually active At routine exams Skin cancer Prevention of skin cancer in fair-skinned adults At routine exams Use of tobacco and the health effects it can cause All women in this age group Every visit 1 According to the ACS, women ages 20 to 39 years should have a clinical breast exam (CBE) as part of their routine health exam every 3 years. Breast self-exams are an option for women starting in their 20s.But the U.S. Preventive Services Task Force (USPSTF) does not recommend CBE. 2 Those who are 18 years old and not up-to-date on their childhood vaccines should get all appropriate catch-up vaccines recommended by the CDC. 3 The USPSTF recommends that all people ages 15 to 65 years be screened for HIV and those younger orolder people at increased risk. The CDC recommends that everyone between the ages of 13 and 64 get tested for HIV at least once as part of routine health care. [employer]o last reviewed this educational content on 08/13/201719992701-2813 [employer]. All rights reserved. This information is not intended as a substitute for professional medical care. Always follow your healthcare professional's instructions. Patient Education Understanding STIs When it comes to sex, nothing is risk-free. Any sexual contact with the penis, vagina, anus, or mouth can spread a sexually transmitted infection (STI). These include chlamydia, gonorrhea, herpes, HIV,and genital warts. STIs are also known as sexually transmitted diseases (STDs). The only sure way toprevent STIs is not having sex (abstinence). But there are ways to make sex safer. Use a latex condom each time you have sex. And choose your partner wisely. Use condoms for safer sex If you have sex, latex condoms provide the best protection against STIs. Latex condoms stop the exchange of body fluids that carry certain STIs. They also limit contact with affected skin. Be aware that a condom doesnt cover all skin. So affected skin that isn't covered can still transfer disease. But youre safer with a condom than without one. Use a condom even if you use other control. control methods such as the pill or IUD help prevent , but they don't protect against STIs. Choose the right condom Condoms made of latex prevent disease best. If youre allergic to latex, use polyurethane condoms instead. Male condoms fit over the penis. Female condoms line the vagina. Before buying a condom, read the label to be sure it prevents disease. Some novelty condoms dont. The right lubricant helps Buy lubricated condoms or use lubricant. This provides greater comfort and reduces the risk for condom breakage. Use only water-based lubricants. Dont use oil, lotion, or petroleum jelly. They can weaken the condom, causing breakage. Also, you may want to choose lubricants without nonoxynol-9. This spermicide may cause irritation. It can raise the risk for certain STIs. Use condoms correctly For condoms to work, they must be used the right way. Keep these tips in mind: Use a new latex condom each time you have sex. Slip the condom on the penis before any contact ismade. When ready to withdraw, hold the rim of the condom as the penis pulls out. This prevents the condom from slipping off. Check the expiration date before using a condom. Dont store condoms in places that can get hot, such as a car or a wallet that is carried in a back pocket. Get to know your partner Safer sex is a process. It involves getting to know your partner and making informed choices. Ask each other how many partners you have had in the past, and how many you have now. Find out if either ofyou has HIV or any other STI. If you decide to have sex, use a condom each time. Dont stop using condoms unless youre sure neither of you has other partners and youve both been tested to confirm you dont have HIV or other STIs. Then stay free of disease by having sex only with each other (monogamy). Keep your cool Dont let alcohol or drugs cloud your judgment. They could lead you to have sex with someone you wouldnt have chosen if you were sober. Or you might forget to use a condom. If you do plan to have sex, keep a latex condom with you. Dont wait until youre in the heat of passion to try to find one. Consider abstinence The only way to be sure you wont get an STI is to abstain from sex. Abstinence is a choice that many people make at some point in their life. Maybe you want to wait until you are sure youre readybefore you have sex. Maybe youd like a break from the responsibilities of sex for a while. Or maybe you just want to know your partner better before taking the next step. Abstinence is a choice you can make now to protect your future. Edmodo last reviewed this educational content on 10/13/201819996921-1135 The [employer]. [address] [place] [address]. All rights reserved. This information is not intended as a substitute for professional medical care. Always follow your healthcare professional's instructions. Patient Education Understanding HIV and AIDS It's important to know how HIV can get into your body and what happens once its there. Then youll be better prepared to protect yourself or others against this virus. A person with HIV can look and feel perfectly healthy. But that person can give HIV to others as soon as he or she is infected with the virus. Having unsafe or unprotected sex or sharing needles puts you at risk for HIV. Talk with your healthcare provider about ways to protect yourself or a loved one from getting HIV. How HIV infection progresses After HIV enters the body, it attacks the immune system in the stages below. A person with HIV can infect others once the virus gets into the blood. HIV with no symptoms. A person with HIV may have no symptoms for years. The only sign of infection may be a positive blood test for HIV 2 weeks to 3 months or later after HIV enters the body. HIV with symptoms. Some people develop an illness similar to mono (mononucleosis) 2 to 4 weeks after the virus enters the body. This is called acute retroviral syndrome. Symptoms may include swollen lymph glands, chills, fever, night sweats, weakness, weight loss, skin rashes, mouth ulcers, or sore t hroat. Symptoms may be mild or the person can feel quite sick. Even without treatment the symptoms almost always go away in a few days or up to 2 to 3 weeks. Then the person has no symptoms, often for years. But over time the immune system starts to get weaker and symptoms start appearing. People at this stage may have a yeast infection in the mouth (oral thrush), shingles, skin problems, pneumonia, diarrhea that keeps coming back, or weight loss. AIDS. AIDS is the most advanced stage of HIV infection, when the immune system is severely weakened.Certain rare diseases and cancers that normally would not occur, now can occur because the body can no longer fight them well enough. It is often these diseases that cause in people with AIDS. HIV may also directly attack the brain and nervous system. This causes seizures and loss of memory and body movement. It also affects many other parts of the body. This leads to problems such as anemia, low white blood cell count, diarrhea, belly pain, skin problems, and many others. How HIV enters the body HIV is carried in semen, vaginal fluid, blood, and breastmilk. During sex, HIV can enter the body. It gets in through the fragile tissue and linings, sores, or cuts in or around the vagina, penis, anus, and mouth. During drug use, tattooing, or body piercing, the virus can enter the blood through an infected needle. A mother who has HIV can infect her child during , childbirth, and . Edmodo last reviewed this educational content on 04/13/201919999391-3933 [employer]. [address] [place] [address], [place] [address]. All rights reserved. This information is not intended as a substitute for professional medical care. Always follow your healthcare professional's instructions. Patient Education Clinical Breast Exam Many health organizations recommend a yearly clinical breast exam. This exam may be done by a candy dipper, family healthcare provider, nurse practitioner, nurse bung remover, or specially trained nurse. Yearly breast exams help tomake surethat breast conditions are found early. Your healthcare providers role A healthcare professional knows the tests and follow-up care needed if a problem is found. Your clinical exam is also a great time to ask questions about breast self-exams. You can find out if yourechecking your breasts in the best way. Or you may want to ask how , breast implants, or breast reduction surgery affect the way you should check your breasts. Diagnostic tests If a clinical exam reveals a breast change, you may have other tests to find out more. These tests may include: Mammography. A low-dose X-ray of your breast tissue. Ultrasound. An imaging test that uses sound waves to create images of your breast. Biopsy. A small amount of breast tissue is removed by needle or by a cut (incision). The tissue is then checked under a microscope. Guidelines for having clinical breast exams The [employer] recommends that starting at age 29, you should have a clinical breast exam every 1 to 3 years. After age 40, have a clinical breast exam each year. If youre at higher risk for breast cancer, you may need exams more often. Risk factors for breast cancer may include: Being over 50 or postmenopausal Having a family history of breast cancer Having the BRCA1 or BRCA2 gene mutation or certain other gene mutations Having more menstrual periods due to starting menstruation early(before age 12) or having a late menopause (after age 55) Having no pregnancies Having a first after age 30 Being obese Having a history of radiation treatment to your chest area Exposure to MARK during your mother's Not being active Drinking too much alcohol Having dense breast tissue Taking hormone therapy after menopause Other health organizations have different recommendations. Talk with your healthcare provider about what is best for you. Edmodo last reviewed this educational content on 02/12/202019990145-7328 [employer]. All rights reserved. This information is not intended as a substitute for professional medical care. Always follow your healthcare professional's instructions. Patient Education Understanding USDA MyPlate The USDA has guidelines to help you make healthy food choices. These are called MyPlate. MyPlate shows the food groups that make up healthy meals using the image of a place setting. Before you eat, think about the healthiest choices for what to put on your plate or in your cup or bowl. To learn more about building a healthy plate, visit www.choosemyplate.gov. The food groups Fruits. Any fruit or 100% fruit juice counts as part of the Fruit Group. Fruits may be fresh, canned, frozen, or dried, and may be whole, cut-up, or pureed. Make 1/2 of your plate fruits and vegetables. Vegetables. Any vegetable or 100% vegetable juice counts as a member of the Vegetable Group. Vegetables may be fresh, frozen, canned, or dried. They can be served raw or cooked and may be whole, cut-up, or mashed. Make 1/2 of your plate fruits and vegetables. Grains. All foods made from grains are part of the Grains Group. These include wheat, rice, oats,cornmeal, and barley. Grains are often used to make foods such as bread, pasta, oatmeal, cereal, tortillas, and grits. Grains should be no more than 1/4 of your plate. At least half of your grains should be whole grains. Protein. This group includes meat, poultry, seafood, beans and peas, eggs, processed soy products(such as tofu), nuts (including nut butters), and seeds. Make protein choices no more than 1/4 of your plate. Meat and poultry choices should be lean or low fat. Dairy. The Dairy Group includes all fluid milk products and foods made from milk that contain calcium, such as yogurt and cheese. (Foods that have little calcium, such as cream, butter, and cream cheese, are not part of this group.) Most dairy choices should be low-fat or fat-free. Oils. Oils aren't a food group, but they do contain essential nutrients. However it's important to watch your intake of oils. These are fats that are liquid at room temperature. They include canola,corn, olive, soybean, vegetable, and sunflower oil. Foods that are mainly oil include mayonnaise, certain salad dressings, and soft margarines. You likely already get your daily oil allowance from the foods you eat. Things to limit Eating healthy also means limiting these things in your diet: Salt (sodium). Many processed foods have a lot of sodium. To keep sodium intake down, eat fresh vegetables, meats, poultry, and seafood when possible. Purchase low-sodium, reduced-sodium, or [id number]-[id number] food products at the store. And don't add salt to your meals at home. Instead, season them with herbs and spices such as dill, oregano, cumin, and paprika. Or try adding flavor with lemon or limezest and juice. Saturated fat. Saturated fats are most often found in animal products such as beef, pork, and chicken. They are often solid at room temperature, such as butter. To reduce your saturated fat intake, choose leaner cuts of meat and poultry. And try healthier cooking methods such as grilling, broiling,roasting, or baking. For a simple lower-fat swap, use plain nonfat yogurt instead of mayonnaise whenmaking potato salad or macaroni salad. Added sugars. These are sugars added to foods. They are in foods such as ice cream, candy, soda, fruit drinks, sports drinks, energy drinks, cookies, pastries, jams, and syrups. Cut down on added sugars by sharing sweet treats with a family member or friend. You can also choose fruit for dessert, and drink water or other unsweetened beverages. Edmodo last reviewed this educational content on 04/13/202019999708-9200 [employer]. All rights reserved. This information is not intended as a substitute for professional medical care. Always follow your healthcare professional's instructions. Patient Education Eating Heart-Healthy Foods Eating has a big impact on your heart health. In fact, eating healthier can improve several of your heart risks at once. For instance, it helps you manage weight, cholesterol, and blood pressure. Here are ideas to help you make heart- healthy changes without giving up allthe foods and flavors you love. Getting started Talk with your healthcare provider about eating plans, such as the DASH or Mediterranean diet. You may also be referred to a dietitian. Change a few things at a time. Give yourself time to get used to a few eating changes before adding more. Work to create a tasty, healthy eating plan that you can stick to for the rest of your life. Goals for healthy eating Below are some tips to improve your eating habits: Limit saturated fats and trans fats. Saturated fats raise your levels of cholesterol, so keep these fats to a minimum. They are found in foods such as fatty meats, whole milk, cheese, and palm and coconut oils. Avoid trans fats because they lower good cholesterol as well as raise bad cholesterol. Trans fats are most often found in processed foods, such as pastries, cookies, pies, muffins, fried foods, stick margarines, and shortening. Reduce how much sodium (salt) you have. Eating too much salt may increase your blood pressure. Limit your sodium intake to 2,300 milligrams (mg) per day(the amount in 1 teaspoon of salt), or less if your healthcare provider recommends it. Dining out less often and eating fewer processed foods aretwo great ways to decrease the amount of salt you consume. At home, flavor your foods with other spices and herbs instead of salt. Managing calories. A calorie is a unit of energy. Your body carrero calories for fuel, but if you eat more calories than your body carrero, the extras are stored as fat. Your healthcare provider can help you create a diet plan to manage your calories. This will likely include eating healthier foods andgetting regular exercise. To help you track your progress, keep a diary to record what you eat and how often you exercise. Choose the right foods Aim to make these foods jeane of your diet. If you have diabetes, you may have different recommendations than what is listed here: Fruits and vegetables provide plenty of nutrients without a lot of calories. At meals, fill half your plate with these foods. Choose between fresh, frozen, canned, or dried without added sauces, salt, or sugars. Split the other half of your plate between whole grains and lean protein. Whole grains are high in fiber and rich in vitamins and nutrients. Good choices include whole wheat bread, pasta, oats, and brown rice. Make at least half of your grains whole grains. Lean proteins give you nutrition with less fat. Good choices include fish, skinless chicken and turkey, and beans. Draining the fat from cooked ground meat is another way to reduce the amount of fatyou eat. Low-fat and nonfat dairy provide nutrients without a lot of fat. Try low-fat or nonfat milk, cheese, or yogurt. Healthy fats can be good for you in small amounts. These are unsaturated fats, such as olive oil,nuts, and fish. Try to have at least 2 servings per week of fatty fish, such as salmon, sardines, mackerel, rainbow trout, and albacore tuna. These contain omega-3 fatty acids, which are good for your heart. Flaxseed and walnuts are other sources of heart-healthy fats. More on heart-healthy eating Read food labels Healthy eating starts at the grocery store. Be sure to pay attention to food labels on packaged foods. Look for products that are high in fiber and protein, and low in saturated fat, added sugars, and sodium. Avoid products that contain trans fat. And pay close attention to serving size. For instance,if you plan to eat two servings, double all the numbers on the label. Prepare food right A prakash part of healthy cooking is cutting down on added fat, sugar and salt. Look on the internet forlower-fat, lower-sodium recipes without a lot of added sugars. Also try these tips: Remove fat from meat and skin from poultry before cooking. Skim fat from the surface of soups and sauces. Broil, roast, boil, bake, steam, grill, or microwave food without added fats. Choose ingredients that spice up your food without adding calories, fat, sugar, or sodium. Try these items: horseradish, hot sauce, lemon, mustard, nonfat salad dressings, and vinegar. Small amountsof olive oil-based vinaigrettes are OK, too. For salt-free herbs and spices, try basil, cilantro, cinnamon, cumin, paprika, pepper, and renay. Edmodo last reviewed this educational content on 05/13/202019997769-6914 [employer]. All rights reserved. This information is not intended as a substitute for professional medical care. Always follow your healthcare professional's instructions. documented in this encounter Progress Notes Chloe Boyle, JACQUI - 08/27/2020 2:30 PM CDT Chief complaint: Chief Complaint Patient presents with Well Woman Exam HPI Here for Well Woman Exam and contraceptive management. Patient is currently on OCPs for contraception, however she is interested in a BTL. Reviewed risks/benefits/alternative contraceptive methods. Complains of vaginal odor and burning. Desires STD testing. Pt reports no past or present history of physical, sexual, and emotional abuse. 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 These medical problems are managed by multiple specialists in [place]. Rubella: deferred VZV: deferred BMI: Body mass index is 34.25 kg/m. Td: no, deferred Pap Smear: No prior, due today Gardasil: N/A Mammogram:N/A Guaiac:N/A Colonoscopy:N/A Histories OB History Para Term AB Living 0 0 0 0 0 0 SAB TAB Ectopic Multiple Live Births 0 0 0 0 0 Obstetric Comments Menarche: 13 BCP: started in 08/2019 Past Medical History: Diagnosis Date Angiomyolipoma of both kidneys Benign brain tumor Depression resolved Kidney tumor Seizures on medication at this time Suicidal ideation Tuberous sclerosis Family History Problem Relation Age of Onset Other - see comments Mother angiomyolipoma Kidney failure Mother Other - see comments Brother angiomyolipoma, brain tumor MS (multiple sclerosis) Father Hypothyroidism Other Stroke Maternal Aunt [place] (myocardial infarction) Maternal Aunt Family Status Relation Name Status Mo Bro (Not Specified) Fa (Not Specified) OTHER multiple Alive MAunt Past Surgical History: Procedure Laterality Date NEPHRECTOMY Right 11/19/2019 Surgeon: Hi Boyle MD; [facility]: [facility] OTHER stimulant for seizure to left breast RENAL ARTERY EMBOLIZATION Right 09/2019 had another one in 2016 at [facility] Social History Socioeconomic History Marital status: Single Spouse name: Not on file Number of children: 0 Years of education: Not on file Highest education level: Not on file Occupational History Occupation: disabled Social Needs Financial resource strain: Not hard at all Food insecurity Worry: Never true Inability: Never true Transportation needs Medical: No Non-medical: No Tobacco Use Smoking status: Never Smoker Smokeless tobacco: Never Used Substance and Sexual Activity Alcohol use: Never Frequency: Never Drug use: Never Sexual activity: Not on file Lifestyle Physical activity Days per week: Not on file Minutes per session: Not on file Stress: Not on file Relationships Social connections Talks on phone: Not on file Gets together: Not on file Attends hindu service: Not on file Active member of club or organization: Not on file Attends meetings of clubs or organizations: Not on file Relationship status: Not on file Intimate partner violence Fear of current or ex partner: Not on file Emotionally abused: Not on file Physically abused: Not on file Forced sexual activity: Not on file Other Topics Concern Not on file Social History Narrative Patient lives with brother and Step-father. Social History Substance and Sexual Activity Sexual Activity Not on file Labs Labs are pending. Radiology No new radiology. Allergies Kitty has No Known Allergies. Medications Kitty has a current medication list which includes the following prescription(s): proair hfa, lamotrigine, amoxicillin, azithromycin, benzonatate, chlorhexidine, cyclobenzaprine, diclofenac, hydrocodone- acetaminophen, magnesium oxide, pantoprazole, quetiapine, sulfamethoxazole- trimethoprim, everolimus, clindamycin, acetaminophen, docusate, phenazopyridine, gabapentin, acetaminophen, ondansetron, fluticasone propionate, gabapentin, gianvi (28), ondansetron, tramadol, cetirizine, escitalopram oxalate, and trazodone. Review of Systems Constitutional: Negative. HENT: Negative. Eyes: Negative. Respiratory: Negative. Breasts: Negative. Cardiovascular: Negative. Gastrointestinal: Negative. Genitourinary: Negative. Musculoskeletal: Negative. Skin: Negative. Neurological: Negative. Psychiatric/Behavioral: Negative. Endocrine: Endocrine negative BP (!) 135/91 (BP Location: Right arm, Patient Position: Sitting, BP CUFF SIZE: Adult Medium) | Pulse 84 | Temp 36.7 C (98 F) (Oral) | Resp 16 | Ht 5' 1" (1.549 m) | Wt 181 lb 4 oz (82.2 kg) | LMP 12/15/2019 (Within Days) | BMI 34.25 kg/m Pregravid BMI: Could not be calculated Physical Exam Vitals reviewed. Constitutional: She is oriented to person, place, and time. She appears well- developed and well-nourished. Her body habitus is normal and obese. Neck: No thyroid nodules and no thyromegaly palpated. Cardiovascular: Regular rate and rhythm. No murmur auscultated. Pulmonary/Chest: Breath sounds clear to auscultation. Normal inspiratory effort. Abdominal: Abdomen is soft. No mass palpated. No tenderness present. There is no hepatosplenomegaly. Neuro/Psychiatric: She has a normal mood and affect. She is oriented to person, place, and time. Skin: Skin normal. No lesion and no rash present. Large vertical abdominal scar Genitourinary Comments: Chaperoned by: Sidney Chapman MA Breast: Right breast exhibits no mass, no nipple discharge and no tenderness. Left breast exhibits no mass, no nipple discharge and no tenderness. Normal left breast and normal right breast External genitalia: Normal external genitalia appropriate for age. No labial lesion. Bladder: No tenderness. Normal bladder Vagina:No lesion inspected. Vaginal discharge found. No lesions in the vagina. White discharge Cervix: Normal cervix. No lesion. No tenderness and no discharge present. Uterus: Uterus is normal size, normal position and non-tender. Normal uterus Adnexa: Right adnexa without tenderness. Left adnexa without tenderness. Normal left adnexa and normal right adnexa Assessment/Plan 1. Well woman exam CBE performed, educated patient regarding self breast awareness. SBE monthly. Patient advised mammograms to begin at age 40 Encourage green leafy vegetables, lean meats and fruit in diet. Avoid fatty, fried, sugary foods. Increase H2O intake (1/2 body weight in ozs). Exercise 30 minutes daily x 7 days/week as tolerated. Follow up 1 year Educated on the effects of chronic health problems, tobacco use, and mental health on future pregnancies and/or penitentiary health. - PAP Smear-Liquid Based - HIGH RISK HPV-THIN PREP 2. control counseling D/w pt at length various BCMs including OCPs, Patch, Depo Provera, vaginal rings, condoms, implants and iuds. We discussed the risk/benefits/side effects of each. After discussion, pt desires to continue with OCPs. Desires to continue perscription with outside physician. - POCT TEST 3. Dysuria UA WNL - POCT URINALYSIS W/O SPECIFIC GRAVITY 4. Vaginal discharge Labs pending - [facility] ONLY - VAGINAL PATHOGENS BY NUCLEIC ACID TESTING 5. Screen for STD (sexually transmitted disease) Reviewed safe sex practices - GC & CHLAMYDIA AMPLIFIED ASSAY - HIV 1/2 AG-AB WITH REFLEX - [facility] ONLY - SYPHILIS IGG/IGM 6. Need for vaccination Administered today. VSS provided. - FLU VACC([id number]), 6+ MONTHS, IM, QUAD (FLUZONE/FLULAVAL/FLUARIX) 7. BMI 34.0-34.9,adult The patient is asked to make an attempt to improve diet and exercise patterns to aid in medical management of this problem. Return to clinic in 52 weeks. Discussed treatment options. Reviewed patient instructions and provided printed copy. This visit did not involve counseling and coordination that comprised more than 50% of the visit time. Karla holder LVN - 08/27/2020 2:30 PM CDT30 year old presented to the clinic for WWE. 1) Previous BCM:OCPs 2) Desired BCM:BTL 3) LMP: 12/2019 4) Last [place]:08/13/2020 5) Last Pap:never Results:n/a 6) Tdap in last 10 years?no HPV?no 7) C/O burning with urination, vaginal odor 8) Patient denies history of physical, emotional, or sexual abuse. Patient states she currently feels safe at home. documented in this encounter Plan of Treatment Date Type Specialty Care Team Description 08/28/2020 Office Visit Oncology Clement Hassan Rp, M D [address] [place] [address] [phone] 09/24/2020 Office Visit Obstetrics & Gynecology Km Pearce MD [address] [place] [address] [facility] [address] [place], [place] [address] 11/30/2020 Appointment Radiology Jania Earl FNP [address] [facility] [address] [place] [address] [phone] Name Type Priority Associated Diagnoses Date/Ti me HIGH RISK HPV-THIN PREP LAB Routine Well woman exam 1 2:53 PM CDT GC & CHLAMYDIA LAB Routine Screen for STD (sexually 1 2:53 PM CDT AMPLIFIED ASSAY transmitted disease) [facility] ONLY - VAGINAL LAB Routine Vaginal discharge 2:53 PM CDT PATHOGENS BY NUCLEIC ACID TESTING [facility] ONLY - SYPHILIS LAB Routine Screen for STD (sexu ally 08/27/2020 2:53 PM CDT IGG/IGM transmitted disease) LAB ONLY PAP LAB Routine Well woman exam 08/27/2020 2:53 PM CDT SMEAR-LIQUID BASED Health Maintenance Due Date Last Done Comments PAP SMEAR 2011 DTaP,Tdap,and Td Vaccines (1 08/27/2021 Pos tponed from - Tdap) 2009 (Alte [place] Guidelines) Depression Screening 08/27/2021 08/27/2020 VARICELLA VACCINES (1 of 2 - 08/27/2021 Pos tponed from 2-dose childhood series) 991 (Alternative Guidelines) INFLUENZA VACCINE Completed 08/27/2020, 10/01/2019 PNEUMOCOCCAL 0-64 YEARS Discontinued COMBINED SERIES documented as of this encounter Implants Implanted Type Area Central Aisle Cashier Device Shelf Model / Identifier Expiration Date Ser ial / Lot Mynx Right: Arrow 07/13/2021 [id number] / Implanted: Qty: 1 on 09/27/2019 at [facility] Groin [id number] / [id number] documented as of this encounter Procedures Procedure Name Priority Date/Time Associated Diagnosis Comme nts PAP SMEAR-LIQUID Routine 08/27/2020 2:53 Well woman exam BASED-CP PM CDT HIV 1/2 AG-AB WITH Routine 08/27/2020 2:53 Screen for STD Res ults for this REFLEX PM CDT (sexually procedure are i n transmitted disease) the res ults section. POCT URINALYSIS W/O Routine 08/27/2020 2:52 Dysuria Resu lts for this SPECIFIC GRAVITY PM CDT procedure a re in the results section. FLU VACC Routine 08/27/2020 2:50 Need for vaccination ([id number]), 6+ PM CDT MONTHS, IM, QUAD POCT TEST Routine 08/27/2020 2:31 control Res ults for this PM CDT counseling procedure are i n the results section. documented in this encounter Results HIV 1/2 AG-AB WITH REFLEX (08/27/2020 2:53 PM CDT) Pathologist Sig nature HIV 1/2 Ag-Ab with Negative Negative [facility] Reflex SERVICES HIV Semi-quantitative 0.22 [facility] Specimen Blood - ARM, RIGHT Narrative Performed At Non-reactive for HIV-1 antigen and HIV-1/HIV-2 antibod ies. [facility] No laboratory evidence of HIV infection. Repeat in 2-4 weeks if acute HIV infection is suspected. Performing Organization Address City/State/Zipcode Phone Number [facility] CLIA: [id number] [place] [address] [place] [address] PAP Smear-Liquid Based (08/27/2020 2:53 PM CDT) Specimen Swab - CERVIX Performing Organization Address City/State/Zipcode Phone Number [facility] CLIA: [id number] [place] [address] [place] [address] POCT URINALYSIS W/O SPECIFIC GRAVITY (08/27/2020 2:52 PM CDT) Pathologist Sig nature POCT PH U 7 5 - 8 mg/dl POCT U LEUK EST neg Negative - Negative POCT U NIT neg Negative - Negative POCT U PROT 1+ Negative - Negative POCT U GLU neg Negative - Negative POCT U KETONE neg Negative - Negative POCT U BLD neg Negative - Negative Specimen Urine - URINE, CLEAN CATCH POCT TEST (08/27/2020 2:31 PM CDT) Pathologist Sig nature POCT PREG Negative On board controls acceptable Yes with C Line POCT PREG LOT # POCT PREG TEST DATE Specimen Urine - URINE, CLEAN CATCH documented in this encounter Visit Diagnoses Diagnosis Well woman exam - Primary Routine general medical examination at a health care facility control counseling General counseling for initiation of oth er contraceptive measures Dysuria Vaginal discharge Leukorrhea, not specified as infective Screen for STD (sexually transmitted dis ease) Screening examination for venereal disea se Need for vaccination Need for prophylactic vaccination and in oculation against unspecified single disease BMI 34.0-34.9,adult Body Mass Index 34.0-34.9, adult documented in this encounter Insurance Payer Benefit Plan / Subscriber ID Effective Phone Address T ype [employer] Dates TOBIN RUDD [id number] 2015-[address] [place] [id number] MANAGED MEDICA[place], [place] documented as of this encounter Advance Directives Name Relationship Healthcare Agent Communication Relationship Jada Morse Sibling Health Care Agent Darien Barnett Jr. Step Parent Second [facility] [phone] Care Agent (Mobile)
--- OUTSIDE RECORDS SUMMARY | 2020-10-01 14:36 | XMS REPORT | Summary of Care ---
:1990 Author Organization [facility] Address [address] [place] [address] Care Team Providers Name Role Phone Zaki Boyle Primary Care Provider Encounter Details Date Type Department Care Team Description 08/28/2020 Letter (Out) [facility] Clement Hassan Rp, M D Hematology-Oncology - [address] [place] [address] [facility] [place] Aixa ahmadi [phone] [facility], [address] [place] [address] Allergies No Known Allergiesdocumented as of this encounter (statuses as of 08/28/2020) Medications Medication Sig Dispensed Refills Start Date End Date Status Lamotrigine 100 mg Take by mouth. 0 Active TbDL traZODONE 50 mg Take 50 mg by 0 Active tablet mouth at bedtime. GIANVI, 28, 3-0.02 mg Take 1 tablet by 5 11/24/2018 Active per tablet mouth daily. fluticasone 50 USE 1 SPRAY 3 10/28/2018 Ac tive mcg/actuation nasal INTRANASALLY ONCE spray A DAY ondansetron 4 mg Take 1 tablet by 20 tablet 0 04/22/2019 Active disintegrating mouth every 4 tabletIndications: (four) hours as Flank pain, Tuberous needed for Nausea sclerosis and Vomiting (N/V). acetaminophen Take 2 tablets by 60 tablet 1 10/01/2019 020 Active (TYLENOL) 325 mg mouth every 6 tabletIndications: (six) hours as Generalized abdominal needed for Pain pain (scale 4-6). acetaminophen Take 2 tablets by 60 tablet 1 11/20/2019 021 Active (TYLENOL) 325 mg mouth every 6 tabletIndications: (six) hours as Angiomyolipoma of needed for Pain both kidneys (scale 4-6). Everolimus (AFINITOR) Take 1 tablet by 30 tablet 5 01/20/2020 Active 10 mg mouth daily. tabletIndications: Angiomyolipoma of both kidneys, Tuberous sclerosis PROAIR HFA 90 INHALE 1 TO 2 0 08/09/2020 A ctive mcg/actuation inhaler PUFFS BY MOUTH EVERY 4 TO 6 HOURS NEEDED FOR COUGH amoxicillin 500 mg 0 08/25/2020 Active capsule chlorhexidine 0.12 % 0 08/25/2020 [...] by 0 07/23/2020 Active tablet mouth daily. CYANOCOBALAMIN, Take 1 tablet by 0 Active VITAMIN B-12, ORAL mouth daily. documented as of this encounter (statuses as [...] medication as prescribed. 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 Visit Phlebotomy [facility] 09/24/2020 Office Visit Obstetrics & Gynecology Km Pearce MD [address] [place], [place] [address]G[facility]le [facility] [address] [address] [phone] 11/30/2020 Appointment Radiology Leila Earl, BENCH MOVER [address] [facility] [address] [place] [address] [phone] 12/04/2020 Office Visit Oncology Clement Hassan Rp, M D [address] [place] [address] Health Maintenance Due Date Last Done Comments [...] of this encounter Implants Implanted Type Area Recovery Engineer Device Shelf Model / Identifier Expiration Date Ser ial / Lot Mynx Right: Arrow 07/13/2021 [id number] / Implanted: Qty: 1 on 09/27/2019 at [facility] Groin [id number] / [id number] documented as of this encounter Results Not on filedocumented in this encounter Insurance Payer Benefit Plan / Subscriber ID Effective Phone Address T e Group Dates TOBIN RUDD [id number] 2015-[address] Medic [place] [id number] MANAGED MEDICA[place] documented as of this encounter Advance Directives Name Relationship Healthcare Agent Communication Relationship Jada Morse [facility] Health Care Agent Darien Barnett Jr. Step Parent Second [facility] Care Agent (Mobile)
--- OUTSIDE RECORDS SUMMARY | 2020-10-01 14:36 | XMS REPORT | Summary of Care ---
:1990 Author Organization [facility] Address [address] [place] [address] Care Team Providers Name Role Phone Zaki Boyle Primary Care Provider Reason for Visit Reason Comments Well Woman Exam Encounter Details Date Type Department Care Team Description 08/27/2020 [facility] Wel l woman exam (Primary Dx); [facility] control counseling; [address] [place] [address]; [address] Vaginal discharge; [place], [place] [address] Screen for STD (sexually transmitted dis ease); [address] Need for vaccination; [phone] BMI 34.0- 34.9,adult Allergies No Known Allergiesdocumented as of this encounter (statuses as of 08/27/2020) Medications Medication Sig Dispensed Refills Start Date [...] as of this encounter (statuses as of 08/27/2020) Active Problems Problem Noted Date Depression, major, [...] medication as prescribed. 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 Yearly breast exams [...] Guidelines for having clinical breast exams The [place] College of Obstetricians and Gynecologists recommends that [...] provider about what is best for you. Mitralign last reviewed this educational content on 02/12/202019998764-2109 The Application Experts. All rights reserved. This information is not [...] breast self-examination (BSE). These experts include the [place] Cancer Society and the [place] Congress of Obstetricians and Gynecologists. Some experts [...] benign. This means they are not cancer. Mitralign last reviewed this educational content on 03/13/202019998277-4605 The Application Exper[employer]. All rights reserved. This information is not [...] once as part of routine health care. Mitralign last reviewed this educational content on 08/13/201719994755-4302 The Application Experts. All rights reserved. This information is not [...] can make now to protect your future. Mitralign last reviewed this educational content on 10/13/201819994290-9600 The Application Exper[employer]. [address] [place] [address]. All rights reserved. This information is not [...] her child during , childbirth, and . Mitralign last reviewed this educational content on 04/13/201919995796-7895 The Application Experts. [address] [place] [address], [place] [address]. All rights reserved. This information is not intended as a substitute for professional medical care. Always follow your healthcare professional's instructions. Patient Education Clinical Breast Exam Many health organizations recommend a yearly clinical breast exam. This exam may be done by a press reader, family healthcare provider, nurse practitioner, nurse accounts payable technician, or specially trained nurse. Yearly breast exams [...] Guidelines for having clinical breast exams The [place] College of Obstetricians and Gynecologists recommends that [...] provider about what is best for you. Mitralign last reviewed this educational content on 02/12/202019997956-9774 The Application Experts. All rights reserved. This information is not [...] seafood when possible. Purchase low-sodium, reduced-sodium, or hg-gyor-xdury food products at the store. And don't [...] and drink water or other unsweetened beverages. Mitralign last reviewed this educational content on 04/13/202019996170-0598 The Application Experts. All rights reserved. This information is not [...] cilantro, cinnamon, cumin, paprika, pepper, and renay. Mitralign last reviewed this educational content on 05/13/202019996326-5097 The Application Experts. All rights reserved. This information is not [...] problems are managed by multiple specialists in [place]. Rubella: deferred VZV: deferred BMI: Body mass [...] sclerosis) Father Hypothyroidism Other Stroke Maternal Aunt [place] (myocardial infarction) Maternal Aunt Family Status Relation Name Status Mo Bro (Not Specified) Fa (Not Specified) OTHER multiple Alive MAunt Past Surgical History: Procedure Laterality Date NEPHRECTOMY Right 11/19/2019 Surgeon: Hi Boyle MD; Location: [facility] OTHER stimulant for seizure to left breast [...] file Gets together: Not on file Attends adventism service: Not on file Active member of [...] and mental health on future pregnancies and/or detention health. - PAP Smear-Liquid Based - HIGH [...] vaccination Administered today. VSS provided. - FLU VACC([id number]), 6+ MONTHS, IM, QUAD (FLUZONE/FLULAVAL/FLUARIX) 7. BMI [...] Desired BCM:BTL 3) LMP: 12/2019 4) Last [place]:08/13/2020 5) Last Pap:never Results:n/a 6) Tdap in last 10 years?no HPV?no 7) C/O burning with urination, vaginal odor 8) Patient denies history of physical, emotional, or sexual abuse. Patient states she currently feels safe at home. documented in this encounter Plan of Treatment Date Type Specialty Care Team Description 08/28/2020 Office Visit Oncology Clement Hassan Rp, M D [address] [place] [address] 555 09/24/2020 Office Visit Obstetrics & Gynecology Km Pearce MD [address] [place] [address] [facility] [address] [place], [place] [address] 11/30/2020 Appointment Radiology Jania Earl FNP [address] [facility] [address] [place] [address] [phone] Name Type Priority Associated Diagnoses Date/Ti me PAP Smear-Liquid Based LAB Routine Well woman exam 2:53 PM CDT HIGH RISK HPV-THIN PREP LAB Routine Well woman exam 1 2:53 PM CDT GC & CHLAMYDIA LAB Routine Screen for STD (sexually 1 2:53 PM CDT AMPLIFIED ASSAY transmitted disease) [facility] ONLY - VAGINAL LAB Routine Vaginal discharge 2:53 PM CDT PATHOGENS BY NUCLEIC ACID TESTING HIV 1/2 AG-AB WITH LAB Routine Screen for STD (sexual ly 08/27/2020 2:53 PM CDT REFLEX transmitted disease) [facility] ONLY - SYPHILIS LAB Routine Screen for STD (sexu ally 08/27/2020 2:53 PM CDT IGG/IGM transmitted disease) Health Maintenance Due Date Last Done Comments [...] of this encounter Implants Implanted Type Area Filter Operator Device Shelf Model / Identifier Expiration Date Ser ial / Lot Mynx Right: Arrow 07/13/2021 [id number] / Implanted: Qty: 1 on 09/27/2019 at [facility] Groin [id number] / [id number] documented as of this encounter Procedures Procedure Name Priority Date/Time Associated Diagnosis Comme nts POCT URINALYSIS W/O Routine 08/27/2020 2:52 Dysuria Resu lts for this SPECIFIC GRAVITY PM CDT procedure a re in the results section. FLU VACC Routine 08/27/2020 2:50 Need for vaccination ([id number]), 6+ PM CDT MONTHS, IM, QUAD POCT TEST Routine 08/27/2020 2:31 control Res ults for this PM CDT counseling procedure are i n the results section. documented in this encounter Results POCT URINALYSIS W/O SPECIFIC GRAVITY (08/27/2020 2:52 [...] Address T ype Group Dates TOBIN RUDD [id number] 2015-Caitlyn M[address] Medic [place] [address] MANAGED MEDICAID [place] documented as of this encounter Advance Directives Name Relationship Healthcare Agent Communication Relationship Jada Morse [facility] Health Care Agent Darien Barnett Jr. Step Parent [facility] [phone] Care Agent (Mobile)
--- OUTSIDE RECORDS SUMMARY | 2020-10-01 14:36 | XMS REPORT | Summary of Care ---
:1990 Author Organization [facility] Address [address] [place] [address] Care Team Providers Name Role Phone Zaki Boyle Primary Care Provider Reason for Visit Reason Comments Well Woman Exam Encounter Details Date Type Department Care Team Description 08/27/2020 [facility] Wel l woman exam (Primary Dx); [facility] control counseling; [address] [address]; [address] Vaginal discharge; [place], [place] [address] Screen for STD (sexually transmitted dis ease); [address] Need for vaccination; [phone] BMI 34.0- 34.9,adult Allergies No Known Allergiesdocumented [...] medication as prescribed. 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 Yearly breast exams [...] Guidelines for having clinical breast exams The [place] College of Obstetricians and Gynecologists recommends that [...] provider about what is best for you. Taskdoer last reviewed this educational content on 02/12/202019999068-3766 The VMware. All rights reserved. This information is not [...] breast self-examination (BSE). These experts include the [place] Cancer Society and the [place] Congress of Obstetricians and Gynecologists. Some experts [...] benign. This means they are not cancer. Taskdoer last reviewed this educational content on 03/13/202019990326-0426 The VMware. All rights reserved. This information is not [...] once as part of routine health care. Taskdoer last reviewed this educational content on 08/13/201719994313-6828 The VMware. All rights reserved. This information is not [...] can make now to protect your future. Taskdoer last reviewed this educational content on 10/13/201819993611-1845 The VMware. [address] [place] [address]. All rights reserved. This information is not [...] her child during , childbirth, and . Taskdoer last reviewed this educational content on 04/13/201919995321-4579 The VMware. [address] [place] [address], [place] [address]. All rights reserved. This information is not intended as a substitute for professional medical care. Always follow your healthcare professional's instructions. Patient Education Clinical Breast Exam Many health organizations recommend a yearly clinical breast exam. This exam may be done by a plywood patcher, family healthcare provider, nurse practitioner, nurse nitro man, or specially trained nurse. Yearly breast exams [...] Guidelines for having clinical breast exams The [place] College of Obstetricians and Gynecologists recommends that [...] provider about what is best for you. Taskdoer last reviewed this educational content on 02/12/202019990221-9114 The VMware. All rights reserved. This information is not [...] seafood when possible. Purchase low-sodium, reduced-sodium, or yr-nkij-kzivl food products at the store. And don't [...] and drink water or other unsweetened beverages. Taskdoer last reviewed this educational content on 04/13/202019992430-3114 The VMware. All rights reserved. This information is not [...] cilantro, cinnamon, cumin, paprika, pepper, and renay. Taskdoer last reviewed this educational content on 05/13/202019994168-2923 The VMware. All rights reserved. This information is not [...] problems are managed by multiple specialists in [place]. Rubella: deferred VZV: deferred BMI: Body mass [...] sclerosis) Father Hypothyroidism Other Stroke Maternal Aunt [place] (myocardial infarction) Maternal Aunt Family Status Relation Name Status Mo Bro (Not Specified) Fa (Not Specified) OTHER multiple Alive MAunt Past Surgical History: Procedure Laterality Date NEPHRECTOMY Right 11/19/2019 Surgeon: Hi Boyle MD; [facility]: [facility] OTHER stimulant for seizure to left breast [...] file Gets together: Not on file Attends jewish service: Not on file Active member of [...] and mental health on future pregnancies and/or residential health. - PAP Smear-Liquid Based - HIGH [...] vaccination Administered today. VSS provided. - FLU VACC([id number]), 6+ MONTHS, IM, QUAD (FLUZONE/FLULAVAL/FLUARIX) 7. BMI [...] Desired BCM:BTL 3) LMP: 12/2019 4) Last [place]:08/13/2020 5) Last Pap:never Results:n/a 6) Tdap in last 10 years?no HPV?no 7) C/O burning with urination, vaginal odor 8) Patient denies history of physical, emotional, or sexual abuse. Patient states she currently feels safe at home. documented in this encounter Plan of Treatment Date Type Specialty Care Team Description 08/28/2020 Office Visit Oncology Clement Hassan Rp, M D [address] [place] [address] 09/24/2020 Office Visit Obstetrics & Gynecology Km Pearce MD [address] [place] [address] [facility] [address] [place], [place] [address] 11/30/2020 Appointment Radiology Jania Earl FNP [address] [facility] [address] [place] [address] [phone] Name Type Priority Associated Diagnoses Date/Ti me [...] of this encounter Implants Implanted Type Area Hand Crown Pouncer Device Shelf Model / Identifier Expiration Date Ser ial / Lot Mynx Right: Arrow 07/13/2021 [id number] / Implanted: Qty: 1 on 09/27/2019 at [facility] Groin [id number] / [id number] documented as of this encounter Procedures Procedure Name Priority Date/Time Associated Diagnosis Comme nts POCT URINALYSIS W/O Routine 08/27/2020 2:52 Dysuria Resu lts for this SPECIFIC GRAVITY PM CDT procedure a re in the results section. FLU VACC Routine 08/27/2020 2:50 Need for vaccination ([id number]), 6+ PM CDT MONTHS, IM, QUAD POCT [...] Address T ype Group Dates TOBIN RUDD [id number] 2015-Caitlyn MARC Medic [place] [address] MA[place]ED [place] documented as of this encounter Advance Directives Name Relationship Healthcare Agent Communication Relationship Jada Morse [facility] Health Care Agent Darien Barnett Jr. Step Parent [facility] Care Agent (Mobile)
--- OUTSIDE RECORDS SUMMARY | 2020-10-01 14:37 | XMS REPORT ---
:1990 Author Organization [facility] Address [address] 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 Problem Seizures R56.9 Active 15349521 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 58119326 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 Problem BCP ( control Z30.011 Active 93363080 pills) initiation Problem Exposure to Z20.2 Active 029689354 sexually transmitted disease (STD) 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 2511300 Problem 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 419263593 Problem Gastroesophageal K21.9 Active 207860215 reflux disease without esophagitis Problem Uses control Z30.9 Active 037390772 Problem Onychomycosis B35.1 Active 701859090 Problem Panic attacks F41.0 Active 821967690 Problem Seasonal allergies J30.2 Active 034260838 ALLERGIES No Known Allergies ENCOUNTERS from 1990 to 2020-09-02 Encounter Location Date Provider [facility] [address] Family [address] [facility] [address] [place] [address] Aug, 2020 [place] [address] IMMUNIZATIONS Vaccine Route Administration Date Status Afluria [...] Start Date End Date Status Frequency, Duration) Lexapro 20 MG 1 tablet Orally Once a Acti ve day for 90 days Afinitor 5 MG 1 tablet Orally Once a Unkn own day Gianvi 3-0.02 MG 1 tablet Orally Once a A ctive day for 28 day(s) Benzonatate 100 MG 1 capsule as needed Jul, Aug, Ac tive Orally two times a day prn cough for 30 days Cetirizine HCl 10 MG take 1 tablet by mouth Active every day as needed for allergies Orally Once a day for 90 days Quetiapine Fumarate 50 MG TAKE 1 TABLET BY MOUTH AT Active BEDTIME for 30 Pantoprazole Sodium 40 MG 1 tablet Orally Once a Active day for 90 days Xulane 150-35 MCG/24HR 1 patch to skin off Aug, Active week then repeat on the same day every week Transdermal for 21 day(s) Lamictal 100 MG 1 tablet Orally Twice a A ctive day for 90 days Ondansetron HCl 4 MG as directed Orally one Active tablet by mouth every 4 hrs Clonazepam 0.5 MG 1 tablet on the tongue Oct, Active and allow to dissolve as needed for acute panic attacks Orally Once a day for 20 days Magnesium Oxide 400 MG 1 tablet as needed for Active leg cramps Orally Once a day for 30 PROCEDURES No Information RESULTS No Results REASON FOR VISIT control request MEDICAL (GENERAL) HISTORY Type Description Date Medical [...] Medication Name Sig Start Date Stop Date Magnesium Oxide 400 MG 1 tablet as needed for leg cramps Orally Once a day for 30 Xulane 150-35 MCG/24HR 1 patch to skin off 1 week then Aug, repeat on the same day every week Transdermal for 21 day(s) Benzonatate 100 MG 1 capsule as needed Orally two times Jul, Aug, a day prn cough for 30 days Next Appt Details Provider Name:Shantelle Bates, 2020-10-22 11:0 0:00 AM, [address] [place], [address], [place], [address], Insurance Providers Payer Name Payer Payer Insured Patient Coverage Coverage End Address Phone Name Relationship to Start Date Fede e Insured TOBIN [phone] [place] [address] [phone]
--- OUTSIDE RECORDS SUMMARY | 2020-10-01 14:37 | XMS REPORT | Summary of Care ---
:1990 Author Organization [facility] Address [address] [place] [address] Care Team Providers Name Role Phone Zaki Boyle Primary Care Provider Encounter Details Date Type Department Care Team Description 08/28/2020 Patient Secure [facility] Hematology / Doctor Jessica ssigned, Oncology-[place] [address] [place], [place] [address] [address] [place] [address] [phone] Allergies No Known Allergiesdocumented as of this encounter (statuses as of 08/31/2020) Medications Medication Sig Dispensed Refills Start End Date Status Date Lamotrigine 100 mg Take by mouth. 0 Active TbDL traZODONE 50 mg Take 50 mg by 0 Active tablet mouth at bedtime. GIANDREINA, 28, 3-0.02 Take 1 tablet by 5 Active mg per tablet mouth daily. 9 fluticasone 50 USE 1 SPRAY 3 Act ric mcg/actuation nasal INTRANASALLY ONCE 8 spray A DAY acetaminophen Take 2 tablets by 60 tablet 1 09/30/20 Active (TYLENOL) 325 mg mouth every 6 9 20 tabletIndications: (six) hours as Generalized needed for Pain abdominal pain (scale 4-6). acetaminophen Take 2 tablets by 60 tablet 1 11/19/19 Active (TYLENOL) 325 mg mouth every 6 0 21 tabletIndications: (six) hours as Angiomyolipoma of needed for Pain both kidneys (scale 4-6). Everolimus Take 1 tablet by 30 tablet 5 Ac tive (AFINITOR) 10 mg mouth daily. 0 tabletIndications: Angiomyolipoma of both kidneys, Tuberous sclerosis PROAIR HFA 90 INHALE 1 TO 2 0 Ac tive mcg/actuation PUFFS BY MOUTH 0 inhaler EVERY 4 TO 6 HOURS NEEDED FOR COUGH amoxicillin 500 mg 0 A ctive capsule 0 chlorhexidine 0.12 % 0 Active mouthwash 0 cyclobenzaprine 10 Take 10 mg by 0 Active mg tablet mouth. 0 magnesium oxide 400 TAKE 1 TABLET BY 0 Active mg (241.3 mg MOUTH NEEDED 0 magnesium) tablet FOR LEG CRAMPS ONCE A DAY pantoprazole 40 mg Take 40 mg by 0 Active EC tablet mouth daily. 0 CYANOCOBALAMIN, Take 1 tablet by 0 Active VITAMIN B-12, ORAL mouth daily. ondansetron 4 mg Take 1 tablet by 20 tablet 0 Discontinued disintegrating mouth every 4 9 20 tabletIndications: (four) hours as Flank pain, Tuberous needed for Nausea sclerosis and Vomiting (N/V). 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 No bathing, swimming, operating [employer] s machinery, climbing ladders without supervision No [...] automatically from request for luz maria vel [id number] 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 Overview: Added automatically from request for luz maria vel [id number] Obesity (BMI 30-39.9) 09/27/2019 Mass of right kidney 09/26/2019 documented as of this encounter (statuses as of 08/31/2020) Immunizations Name Administration Dates Next Due Influenza [...] Treatment Date Type Specialty Care Team Description 09/24/2020 Office Visit Obstetrics & Gynecology Km Pearce MD [address] [place] [address] DR. [address] [place] 1715[address] 15 [phone] 11/30/2020 Appointment Radiology Jania Earl, CIVIL ENGINEER [address] [facility] [address] [place] [address] [phone] 12/04/2020 Office Visit Oncology Clement Hassan Rp, M D [address] [place] [address] 77 555 Health Maintenance Due Date Last Done [...] of this encounter Implants Implanted Type Area Staff Physical Therapist Device Shelf Model / Identifier Expiration Date Ser ial / Lot Mynx Right: Arrow 07/13/2021 [id number] / Implanted: Qty: 1 on 09/27/2019 at [facility] Groin [id number] / [id number] documented as of this encounter Results Not on filedocumented in this encounter Insurance Payer Benefit Plan / Subscriber ID Effective Phone Address T [facility] Group Dates TOBIN RUDD [id number] 2015-Prese [address] Medic [place] [id number] MANAGED MEDICAID [place] documented as of this encounter Advance Directives Name Relationship Healthcare Agent Communication Relationship aJda Morse Sibling Health Care Agent Darien Barnett Jr. Step Parent Second [facility] Care Agent (Mobile)[phone] (Work)
--- OUTSIDE RECORDS SUMMARY | 2020-10-01 14:37 | XMS REPORT | Summary of Care ---
:1990 Author Organization [facility] Address [address] [place] [address] Care Team Providers Name Role Phone Zaki Boyle Primary Care Provider Reason for Visit Reason Comments Blood Draw Encounter Details Date Type Department Care Team Description 08/28/2020 Civil Engineering Professional Visit [facility] Clement Hassan Rp, MD [address] [place] [address] Angiomyolipoma of both kidneys; Clinical [facility] Iron deficiency; Laboratory - [facility], B12 defici enc; [place] Tuberous sclerosis; [address] Status post nephrectomy; Drive Pulmonary nodules; 5th [place] [address] Allergies No Known Allergiesdocumented as of this [...] medication as prescribed. No bathing, swimming, operating [employer] machinery, climbing ladders without supervision No driving [...] automatically from request for luz maria vel [id number] 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 Overview: Added automatically from request for luz maria vel [id number] Obesity (BMI 30-39.9) 09/27/2019 Mass of right [...] Signs Not on filedocumented in this encounter Nursing Notes Marcial Vega - 08/28/2020 12:00 PM CDT Diagnoses: Angiomyolipoma of both kidneys - Venipuncture collection performed by clean technique on the left anticubitus. Total of 1 attempts were made. Slight pressure and a bandage/dressing were applied to the site(s). The patient experienced no complications. The following specimens were processed according to instructions and sent to [facility] laboratories LT BLUE SST 1 RED LAV 1 PPT DK GREEN (L) DK GREEN (S)/// CHOI DK BLUE (K2) DK BLUE (S) ACD Blood Culture NIPT / NTD UA 1 Urine culture 1 Aptima tube documented in this encounter Plan of Treatment Date Type Specialty Care Team Description 09/24/2020 Office Visit Obstetrics & Gynecology Km Pearce MD [address] [place] [address] DR. Newman [address] [place] [address] 15 [phone] 11/30/2020 Appointment Radiology Jania Earl, RESEARCH PROFESSOR [address] [facility] [address] [place] [address] [phone] 12/04/2020 Office Visit Oncology Clement Hassan Rp, M D [address] [place] [address] 77 555 Name Type Priority Associated Diagnoses Date/Ti me CBC WITH DIFF LAB Routine Angiomyolipoma of both 08/13 12:22 PM kidneys CDT Iron deficiency B12 deficiency Tuberous scleros is Status post neph rectomy Pulmonary nodules COMP. METABOLIC PANEL LAB Routine Angiomyolipoma of b oth 08/28/2020 12:22 PM ([id number]) kidneys CDT Iron deficiency B12 deficiency Tuberous scleros is Status post neph rectomy Pulmonary nodules FERRITIN SERUM LAB Routine Angiomyolipoma of both 12:22 PM kidneys CDT Iron deficiency B12 deficiency Tuberous scleros is Status post neph rectomy Pulmonary nodules TOTAL IRON BINDING LAB Routine Angiomyolipoma of both 08/28/2020 12:22 PM CAPACITY kidneys CDT Iron deficiency B12 deficiency Tuberous scleros is Status post neph rectomy Pulmonary nodules VITAMIN B12, LEVEL LAB Routine Angiomyolipoma of both 08/28/2020 12:22 PM kidneys CDT Iron deficiency B12 deficiency Tuberous scleros is Status post neph rectomy Pulmonary nodules URINALYSIS LAB Routine Dysuria 08/28/2020 12:2 2 PM CDT URINE CULTURE LAB Routine Dysuria 08/28/2020 12: 22 PM CDT Health Maintenance Due Date Last Done Comments [...] of this encounter Implants Implanted Type Area Pulp And Paper Tester Device Shelf Model / Identifier Expiration Date Ser ial / Lot Mynx Right: Arrow 07/13/2021 [id number] / Implanted: Qty: 1 on 09/27/2019 at [facility] Aubrey [id number] / [id number] documented as of this encounter Results Not on filedocumented in this encounter Visit Diagnoses Diagnosis Angiomyolipoma of both kidneys Iron deficiency Other disorders of iron metabolism B12 deficiency Other B-complex deficiencies Tuberous sclerosis Status post nephrectomy Pulmonary nodules Other nonspecific abnormal finding of hao ng field Dysuria documented in this encounter Insurance Payer Benefit Plan / Subscriber ID Effective Phone Address T ype Group Dates TOBIN RUDD [id number] 2015-Caitlyn Isbell [address] Medic [place] [id number] MA[place] MED[place] documented as of this encounter Advance Directives Name Relationship Healthcare Agent Communication Relationship Jada Morse [facility] Health Care Agent Darien Barnett Jr. Step Parent [facility] Care Agent (Mobile)[phone] (Work)
--- OUTSIDE RECORDS SUMMARY | 2020-10-01 14:37 | XMS REPORT | Summary of Care ---
:1990 Author Organization [facility] Address [address] [place] [address] Care Team Providers Name Role Phone Zaki Boyle Primary Care Provider Reason for Visit Reason Comments Lab Results Encounter Details Date Type Department Care Team Description 08/31/2020 Telephone [facility] RMP- A Chloe Casas, JACQUI Lab Results [address] [facility] [address] [place] [address] [facility] A [phone] [place], [place] [address] Allergies No Known Allergiesdocumented as of this encounter (statuses as of 08/31/2020) Medications Medication Sig Dispensed Refills Start End Date Status Date Lamotrigine 100 mg Take by mouth. 0 Active TbDL traZODONE 50 mg Take 50 mg by 0 Active tablet mouth at bedtime. GIANVI, 28, 3-0.02 Take 1 tablet by [...] 0 Active VITAMIN B-12, ORAL mouth daily. metroNIDAZOLE Take 1 tablet by 14 tablet 0 09/07/20 Active (FLAGYL) 500 mg mouth 2 (two) 0 20 tabletIndications: times daily for 7 Bacterial vaginitis days. fluconazole 150 mg Take 1 tablet by 2 tablet 0 Active tabletIndications: mouth now, and 0 Candidiasis of vulva take 1 tablet by and vagina mouth in 1 week. ondansetron 4 mg Take 1 tablet by [...] medication as prescribed. No bathing, swimming, operating [employer] machinery, climbing ladders without supervision No driving [...] automatically from request for luz maria vel [id number] 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 Overview: Added automatically from request for luz maria vel [id number] Obesity (BMI 30-39.9) 09/27/2019 Mass of right [...] Signs Not on filedocumented in this encounter Miscellaneous Notes Telephone Encounter - Karla Bravo LVN - 08/31/2020 8:24 AM Cassandra Pily Wall is a 30 year old female Informed of results and new orders, stated she wanted her boyfriend Brad to be told results. Thisnurse had boyfriend Brad verify patient's , and explained results and new orders. Patient got back on the line and verbalized understanding. elephone Encounter - Chloe Boyle FNP - 08/31/2020 8:07 AM CDT Vaginal culture + for BV and yeast. Rx for flagyl and diflucan sent to pharmacy on file. Please review ersonal hygiene. Encourage patient to avoid all bath products/chemicals and tight fitting spandex or yoga pants for long periods of time. Wear loose fitting cotton underwear. Recommend OTC probiotic. documented in this encounter Plan of Treatment Date Type Specialty Care Team Description 09/24/2020 Office Visit Obstetrics & Gynecology Km Pearce MD [address] [place], [place] [address] [facility] [address] [place], [place] [address] [phone] 11/30/2020 Appointment Radiology Jania Earl FNP [address] [facility] [address] [place] [address] [phone] 12/04/2020 Office Visit Oncology Clement Hassan Rp, M D [address] [place] [address] 77 555 Health Maintenance Due Date Last [...] of this encounter Implants Implanted Type Area Drier And Grinder Tender Device Shelf Model / Identifier Expiration Date Ser ial / Lot Mynx Right: Arrow 07/13/2021 [id number] / Implanted: Qty: 1 on 09/27/2019 at [facility] Groin [id number] / [id number] documented as of this encounter Results Not on filedocumented in this encounter Visit Diagnoses Diagnosis Bacterial vaginitis - Primary Vaginitis and vulvovaginitis, unspecifie d Candidiasis of vulva and vagina documented in this encounter Insurance Payer Benefit Plan / Subscriber ID Effective Phone Address T [facility] Group Dates TOBIN RUDD [id number] 2015-Prese [address] Medic [place] [id number] MA[place]GED MEDICA[place] documented as of this encounter Advance Directives Name Relationship Healthcare Agent Communication Relationship Jada Barreraz [facility] Health Care Agent Darien Barnett Jr. Step Parent [facility] [phone] Care Agent (Mobile)[phone] (Work)
--- OUTSIDE RECORDS SUMMARY | 2020-10-01 14:37 | XMS REPORT ---
:1990 Author Organization [facility] Address [address] 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 Problem BCP ( control Z30.011 Active 40960838 pills) initiation Problem Uses control Z30.9 Active 232341618 Problem 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 862340028 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 21309234 kidney Problem test Z32.01 Active 885422240 performed, confirmed 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 7993366 Problem Back pain M54.9 Active 400026136 Problem Onychomycosis B35.1 Active 735654838 Problem Panic attacks F41.0 Active 777303743 Problem Seasonal allergies J30.2 Active 761896302 Problem Exposure to Z20.2 Active 486351044 sexually transmitted disease (STD) ALLERGIES No Known Allergies ENCOUNTERS from 1990 to 2020-09-03 Encounter Location Date Provider Diagnosis [facility] [address] [place] [facility] Aug, [facility] [address], [place] [address] contraception Z30.09 and Encounter f or test, result negative Z32.02 IMMUNIZATIONS Vaccine Route Administration Date Status Afluria [...] REASON FOR REFERRAL No Information VITAL SIGNS Height 60.00 in Aug, Weight 179 lbs Aug, Temperature 97.6 degrees Fahrenheit Aug, BMI 34.95 kg/m2 Aug, MEDICATIONS Medication SIG (Take, Route, Start Date End Date Status Frequency, Duration) Pantoprazole Sodium 40 MG 1 tablet Orally Once a Active day for 90 days Ondansetron HCl 4 MG as directed Orally one Active tablet by mouth every 4 hrs Lexapro 20 MG 1 tablet Orally Once a Acti ve day for 90 days Magnesium Oxide 400 MG 1 tablet as needed for Active leg cramps Orally Once a day for 30 Clonazepam 0.5 MG 1 tablet on the tongue Oct, Active and allow to dissolve as needed for acute panic attacks Orally Once a day for 20 days Quetiapine Fumarate 50 MG TAKE 1 TABLET BY MOUTH AT Active BEDTIME for 30 Lamictal 100 MG 1 tablet Orally Twice a A ctive day for 90 days Xulane 150-35 MCG/24HR 1 patch to skin off 1 Aug, Active week then repeat on the same day every week Transdermal for 21 day(s) Cetirizine HCl 10 MG take 1 tablet by mouth Active every day as needed for allergies Orally Once a day for 90 days Benzonatate 100 MG 1 capsule as needed Jul, Aug, Ac tive Orally two times a day prn cough for 30 days Afinitor 5 MG 1 tablet Orally Once a Unkn own day Xulane 150-35 MCG/24HR 1 patch to skin off 1 Aug, Active week then repeat on the same day every week Transdermal for 21 day(s) Gianvi 3-0.02 MG 1 tablet Orally Once a A ctive day for 28 day(s) PROCEDURES No Information RESULTS No Results REASON FOR VISIT test MEDICAL (GENERAL) HISTORY Type Description Date Medical [...] No Information ASSESSMENTS Encounter Date Diagnosis Notes Aug, Encounter for counseling regarding contr aception (ICD-10 - Z30.09) Aug, Encounter for test, result neg ative (ICD-10 - Z32.02) PLAN OF TREATMENT Medication Medication Name Sig Start Date Stop Date Xulane 150-35 MCG/24HR 1 patch to skin off 1 week then repeat Aug, on the same day every week Transdermal for 21 day(s) Treatment Notes Assessment Notes Clinical Notes Encounter for counseling regarding Last menstration 07/2020 switching contraception from pill control to patch Treatment Notes Test Name Order Date TEST URINE 2020-09-03 Next Appt Details 3 Months Reason: Provider Name:Shantelle Bates 2020-09-14 03:0 0:00 PM, [address], [address], [place], [address], Provider Name:Shantelle Bates 2020-10-22 11:0 0:00 AM, [address], [address], [place], [address], Insurance Providers Payer Name Payer Payer Insured Patient Coverage Coverage End Address Phone Name Relationship to Start Date Fede e Insured RUDD [phone] Henrietta Wall self [address] [address]
--- OUTSIDE RECORDS SUMMARY | 2020-10-01 14:37 | XMS REPORT | Summary of Care ---
:1990 Author Organization [facility] Address [address] [place] [address] Care Team Providers Name Role Phone Zaki Boyle Primary Care Provider Reason for Visit Reason Comments Results bloodwork Encounter Details Date Type Department Care Team Description [facility] Radha corado (bloodwork) [facility] [address] [facility] [address] [place] [address]55 [place] [address] [phone] Allergies No Known Allergiesdocumented as of this encounter (statuses as of 08/31/2020) Medications Medication Sig Dispensed Refills Start Date End Date Status Lamotrigine 100 mg Take by mouth. 0 Active TbDL traZODONE 50 mg Take 50 mg by 0 Active tablet mouth at bedtime. GIANVI, 28, 3-0.02 mg Take 1 tablet by 5 11/24/2018 Active per tablet mouth daily. fluticasone 50 USE 1 SPRAY 3 10/28/2018 Ac tive mcg/actuation nasal INTRANASALLY ONCE spray A DAY acetaminophen Take 2 tablets [...] mg by 0 04/14/2020 Active tablet mouth. magnesium oxide 400 TAKE 1 TABLET BY [...] medication as prescribed. No bathing, swimming, operating [employer] s machinery, climbing ladders without supervision No [...] automatically from request for luz maria vel [id number] 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 Overview: Added automatically from request for luz maria vel [id number] Obesity (BMI 30-39.9) 09/27/2019 Mass of right [...] Encounter - Karla Bravo LVN - 08/31/2020 8:20 AM CDTSee other encounter. elephone Encounter - Mehnaz Pires - 08/29/2020 3:59 PM CDTMelidiego Wall is a 30 year old female Patient has some questions regarding bloodwork results. Please call back to advise. documented in this encounter Plan of Treatment Date Type Specialty Care Team Description 09/24/2020 Office Visit Obstetrics & Gynecology Km Pearce MD [address] [place] [address] DR. [address] [place], [place] [address] [phone] 11/30/2020 Appointment Radiology Jania Earl, METAL DRILLING MACHINE OPERATOR [address] [facility] [address] [place] [address] [phone] 12/04/2020 Office Visit Oncology Clement Hassan Rp, M D [address] [place] [address] [phone] Health Maintenance Due Date Last Done Comments [...] of this encounter Implants Implanted Type Area Director Of Health Education Device Shelf Model / Identifier Expiration Date Ser ial / Lot Mynx Right: Arrow 07/13/2021 [id number] / Implanted: Qty: 1 on 09/27/2019 at [facility] Groin [id number] / [id number] documented as of this encounter Results Not on filedocumented in this encounter Insurance Payer Benefit Plan / Subscriber ID Effective Phone Address T e Group Dates RUDD RUDD [id number] 2015-Caitlyn [address] Medic [place] [id number] MA[place] documented as of this encounter Advance Directives Name Relationship Healthcare Agent Communication Relationship Jada Morse Sibling Health Care Agent Darien Barnett Jr. Step Parent Second [facility] [phone] Care Agent (Mobile)[phone] (Work)
--- OUTSIDE RECORDS SUMMARY | 2020-10-01 14:38 | XMS REPORT | Summary of Care ---
:1990 Author Organization [facility] Address [address] [place] [address] Care Team Providers Name Role Phone Zaki Boyle Primary Care Provider Reason for Visit Reason Comments ABNORMAL PAP Encounter Details Date Type Department Care Team Description 09/07/2020 Telephone [facility]- A Chloe Casas, CAFETERIA SUPERVISOR ABNORMAL PAP [address] [facility] [address] [place] [address] [facility] [phone] [place], [place] [address] Allergies No Known Allergiesdocumented as of this encounter (statuses as of 09/07/2020) Medications Medication Sig Dispensed Refills Start Date [...] Take 1 tablet by 14 tablet 0 08/31/2020 09/07/20 20 Active (FLAGYL) 500 mg mouth 2 (two) tabletIndications: times daily for 7 Bacterial vaginitis days. fluconazole 150 mg Take 1 tablet by 2 tablet 0 08/31/2020 Active tabletIndications: mouth now, and Candidiasis of vulva take 1 tablet by and vagina mouth in 1 week. documented as of this encounter (statuses as of 09/07/2020) Active Problems Problem Noted Date Papanicolaou smear of cervix with low grade squamous i ntraepithelial 09/07/2020 lesion (LGSIL) Bacterial vaginitis 08/31/2020 Candidiasis of vulva and [...] medication as prescribed. 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 The cervix is the opening of the uterus. In some cases, it checks for a virus that can cause cervical cancer. If your Pap results were abnormal, you may be worried. But there is no reason to panic. An abnormal Pap test resultcan mean many things. It may be due to changes (inflammation) caused by normal cell repair or infection. Or you may have a problemcalled dysplasiathat could become cervical cancer. If so, know thatdysplasia tends to grow very slowly before becoming cervical cancer.Thats why its so important to have Pap tests as often as directed. Pap tests can show cell changes in the cervix early. Thisis when treatment is most effective. Talk with your healthcare provider Talk about your results with your healthcare provider. Find out about any follow-up tests youll need. You may be asked to come back for a second Pap test in a year. This gives your cervix time to repair itself. Or you may be scheduled for a colposcopy exam. This lets your healthcare provider get a closer look at your cervix. He or she may take a biopsy of your cervix. This a small sample of tissuethat is sent to a lab for more testing. In either case, keep your follow-up visits. They are one of your best safeguards against future problems. Understanding your risk Some lifestyle choices can raise your risk of abnormal cell changes. Did you start having sex at a young age? Have you had many sex partners? Have you had sex without using a latex condom? Do you smoke? Do you have an immune deficiency such as HIV? If you answered yes to any of these questions, you are more at risk. One of the most common reasons for an abnormal Pap result is infection with the humanpapillomavirus (HPV). If your Pap results suggest you may have HPV, you may need more tests. The Pap test During the test: A tool called a speculum is put into the vagina to hold itopen. This lets your healthcare provider see the cervix. A small brush, spatula, or swab is used to take cells from several areas of the cervix. The cellsare put into a liquid or on a slide. They are then sent to a lab where they are checked for changes.Your healthcare provider will contact you with the results. [employer] last reviewed this educational content on 04/13/202019992576-1935 [employer]. All rights reserved. This information is not intended as a substitute for professional medical care. Always follow your healthcare professional's instructions. documented in this encounter Miscellaneous Notes Telephone Encounter - Vane Santos RN - 09/07/2020 2:28 PM CDTPatient given pap smear results and positive HPV. Patient given appointment for colpo appoitnment 10/01/2020 at 930a. Patient educated on LGSIL, HPV, and colposcopy. Informed [facility] her [facility]. Patient will also need to schedule a [facility] appointment and will be called by PSS. Patient verbalized understanding. elephone Encounter - Chloe Boyle FNP - 09/07/2020 12:18 PM CDTLGSIL pap with +HPV, needs colposcopy. Please schedule accordingly documented in this encounter Plan of Treatment Date Type Specialty Care Team Description 09/24/2020 Office Visit Obstetrics & Gynecology Km Pearce MD [address] [place], [place] [address] [address] [place], [place] [address] 09/28/2020 Appointment Radiology Jesika Rodriguez NP [address] [place] [address] 77 [phone] 09/28/2020 Appointment Radiology Jesika Rodriguez NP [address] [place] [address] 77 [phone] 10/01/2020 Office Visit OB Satellites Res-Colpo/Leep, [facility] 11/30/2020 Appointment Radiology Jania Earl FNP [address] [facility] [address] [place] [address] [phone] 12/04/2020 Office Visit Oncology Clement Hassan Rp, M D [address] [place] [address] 77 555 Health Maintenance Due Date Last [...] of this encounter Implants Implanted Type Area Paper Cleaner Device Shelf Model / Identifier Expiration Date Ser ial / Lot Mynx Right: Arrow 07/13/2021 [id number] / Implanted: Qty: 1 on 09/27/2019 at [facility] Groin [id number] / [id number] documented as of this encounter Results Not on filedocumented in this encounter Visit Diagnoses Diagnosis Papanicolaou smear of cervix with low gr rom squamous intraepithelial lesion (LGSIL) - Primary Cervical high risk human papillomavirus (HPV) DNA test positive documented in this encounter Insurance Payer Benefit Plan / Subscriber ID Effective Phone Address T [facility] Group Dates TOBIN RUDD [id number] [address] [facility] [place] [id number] MANAG[place] MED[place], [place] documented as of this encounter Advance Directives Name Relationship Healthcare Agent Communication Relationship Jada Morse Sibling Health Care Agent Darien Barnett Jr. Step Parent [facility] Care Agent (Mobile)[phone] (Work)
--- OUTSIDE RECORDS SUMMARY | 2020-10-01 14:39 | XMS REPORT | Summary of Care ---
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 Pulmonary nodules Jesika Rordiguez NP Radiology Procedures CT abdomen pelvis without contrast [address] [place] [id number] MRI/CAT Scan (Routine) Status Reason Specialty Diagnoses / Referred By Referred To Procedures Contact Contact New Request Diagnostic Diagnoses 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 Clement Hassan Rp, M D Angiomyolipoma of both kidneys (Primary Dx); Hematology-Oncology [address] [facility] Iron deficiency; [place] [address] B12 deficiency; [address] [phone] Tuberous sclerosis; Drive Status post nephrectomy; [facility] Pulmonary nodul es; [facility] Dysuria; 1.230 Chronic fatigue; [place], [place] Renal mass [phone] Allergies No Known Allergiesdocumented as of this encounter (statuses as of 09/07/2020) Medications Medication Sig Dispensed Refills Start End Status Date Date Lamotrigine 100 mg Take by mouth. 0 Active TbDL traZODONE 50 mg Take 50 mg by 0 Active tablet mouth at bedtime. GIANDREINA, 28, 3-0.02 Take 1 tablet by 5 Active mg per tablet mouth daily. 9 fluticasone 50 USE 1 SPRAY 3 Act ric mcg/actuation nasal INTRANASALLY 8 spray ONCE A DAY acetaminophen Take 2 tablets 60 tablet 1 A ctive (TYLENOL) 325 mg by mouth every 6 9 020 tabletIndications: (six) hours as Generalized needed for Pain abdominal pain (scale 4-6). acetaminophen Take 2 tablets 60 tablet 1 [...] 0 A ctive capsule 0 chlorhexidine 0.12 0 A ctive % mouthwash 0 cyclobenzaprine 10 Take 10 mg by 0 Active mg tablet mouth. 0 magnesium oxide 400 TAKE 1 TABLET BY 0 Active mg (241.3 mg MOUTH NEEDED 0 magnesium) tablet FOR LEG CRAMPS ONCE A DAY pantoprazole 40 mg Take 40 mg by 0 Active EC tablet mouth daily. 0 CYANOCOBALAMIN, Take 1 tablet by 0 Active VITAMIN B-12, ORAL mouth daily. escitalopram Take 20 mg by 0 Dis continued oxalate 20 mg mouth daily. 020 (Th erapy tablet completed) Cetirizine 10 mg Take by mouth. 0 Discontinued capsule 020 (Therapy completed) traMADOL 50 mg Take 1 tablet by 30 tablet 0 Discontinued tabletIndications: mouth every 6 9 020 (Therapy Left upper quadrant (six) hours as completed) pain, Tuberous needed for Pain sclerosis, (scale 4-6). Angiomyolipoma, Flank pain ondansetron 4 mg Take 1 tablet by 20 tablet 0 Discontinued disintegrating mouth every 4 9 020 ( Therapy tabletIndications: (four) hours as completed) Left upper quadrant needed for pain, Tuberous Nausea and sclerosis, Vomiting (N/V). Angiomyolipoma, Flank pain gabapentin 100 mg Take 1 capsule 90 capsule 0 Discontinued capsuleIndications: by mouth 3 9 020 (Therapy Tuberous sclerosis, (three) times completed) Angiomyolipoma of daily. both kidneys, Left flank pain ondansetron 4 mg Take 1 tablet by 20 tablet 0 Discontinued disintegrating mouth every 4 9 020 tabletIndications: (four) hours as Flank pain, needed for Tuberous sclerosis Nausea and Vomiting (N/V). gabapentin 300 mg Take 1 capsule 90 capsule 1 Discontinued capsule by mouth 3 9 020 (Therapy (three) times comple christian) daily. phenazopyridine 200 Take 1 tablet by 9 tablet 0 29/12 Discontinued mg mouth 3 (three) 9 020 (The rapy tabletIndications: times daily. completed) Dysuria, Feeling of incomplete bladder emptying, Angiomyolipoma of both kidneys, Anemia, unspecified type docusate 100 mg Take 1 capsule 30 capsule 0 Discontinued capsuleIndications: by mouth daily. 0 020 (Therapy Angiomyolipoma of co mpleted) both kidneys clindamycin 2 % Insert 1 40 g 0 Disc ontinued creamIndications: Applicator into 0 020 (Therapy Dysuria, Yeast vagina at compl eted) vaginitis bedtime. azithromycin 250 mg TAKE 2 TABLETS 0 08/28 Discontinued tablet BY MOUTH TODAY, 0 020 (The rapy THEN TAKE 1 complete d) TABLET DAILY FOR 4 DAYS benzonatate 100 mg 0 D iscontinued capsule 0 020 (Therapy completed) diclofenac 75 mg EC Take 75 mg by 0 Discontinued tablet mouth. 0 020 (Therapy completed) Hydrocodone-Acetami 0 Discontinued nophen 5-300 mg 0 020 tablet QUEtiapine 50 mg Take 50 mg by 0 Discontinued tablet mouth. 0 020 (Therapy completed) sulfamethoxazole-tr 0 Discontinued imethoprim 800-160 0 020 ( Therapy mg per tablet comple christian) documented as of this encounter (statuses as [...] medication as prescribed. No bathing, swimming, operating dangerou s machinery, climbing ladders without supervision No [...] automatically from request for luz maria vel [id number] 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 Overview: Added automatically from request for luz maria vel [id number] Obesity (BMI 30-39.9) 09/27/2019 Mass of right [...] Sign Reading Time Taken Comments Blood Pressure 112/76 08/28/2020 10:36 AM CDT Pulse 90 08/28/2020 10:36 AM CDT Temperature 36.6 C (97.9 F) 08/28/2020 10:36 AM CDT Respiratory Rate 17 08/28/2020 10:36 AM CDT Oxygen Saturation 99% 08/28/2020 10:36 AM CDT Inhaled Oxygen Concentration - - Weight 81.6 kg (180 lb) 08/28/2020 10:36 AM CDT Height 154.9 cm (5' 1") 08/28/2020 10:36 AM CDT Body Mass Index 34.01 08/28/2020 10:36 AM CDT documented in this encounter Progress Notes Clement Hassan Rp, MD - 08/28/2020 11:00 AM CDT Clinic Notes: Routine Follow Up PCP: Dr. Bates CONSULTANTS: Urology, Nephrology, Neurology, Genetics CC: Angiomyolipoma DIAGNOSIS: Tuberous Sclerosis, Angiomyolipoma (AML) of Bilateral Kidneys, s/p Right Nephrectomy, Anemia, Menorrhagia, Seizure HISTORY OF PRESENT ILLNESS Kitty Wall is a 30 year old female with PMH listed as below referred here for Everolimus therapy consideration for angiomyolipoma. Medical information obtained from sister/medical power of patent attorney Kacy and patient. Hx of Tuberous [...] had hard time reaching her for delivery. But reportedly she only took it for about one month and never received any refill. In 05/2020 she presented to [facility] ER for LLQ pain, labs overall stable, but CT AP showed possible leftgonadal phlebitis/thrombophlebitis. Today she reports severe LLQ pain, 10/10, stabbing in nature. Positive for dysuria as well. Denies fever chills. Currently on Amoxicillin for recent dental work. Her SOB remains stable. She remains oniron and B12 supplements. 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 PSYCHOSOCIAL [...] file Gets together: Not on file Attends sabianism service: Not on file Active member of [...] Narrative Patient lives with brother and Step-father. FAMILY HISTORY Family History Problem Relation Age of Onset Other - see comments Mother angiomyolipoma Kidney failure Mother Other - see comments Brother angiomyolipoma, brain tumor MS (multiple sclerosis) Father Hypothyroidism Other Stroke Maternal Aunt [place] (myocardial infarction) Maternal Aunt REVIEW OF SYSTEMS [...] - seizures, -SHARIF, -insomnia PHYSICAL EXAM BP 112/76 | Pulse 90 | Temp 36.6 C (97.9 F) (Temporal Artery) | Resp 17 | Ht 5' 1" (1.549 m) | Wt 180 lb (81.6 kg) | SpO2 99% | BMI 34.01 kg/m RADIOLOGICAL FINDINGS: CT AP 12/14/19 Interval right [...] LABORATORY FINDINGS: CBC WBC (10*3/L) Date Value 05/23/2020 10.06 RBC (10*6/L) Date Value 05/23/2020 3.74 (L) PLT (10*3/L) Date Value 05/23/2020 441 (H) HGB (g/dL) Date Value 05/23/2020 10.8 (L) HCT (%) Date Value 05/23/2020 32.9 (L) NA (mmol/L) Date Value 05/23/2020 136 K (mmol/L) Date Value 05/23/2020 4.4 CALCIUM (mg/dL) Date Value 05/23/2020 9.5 CL (mmol/L) Date Value 05/23/2020 105 BUN (mg/dL) Date Value 05/23/2020 23 CREATININE (mg/dL) Date Value 05/23/2020 1.21 (H) GLUCOSE (mg/dL) Date Value 05/23/2020 130 (H) CO2 TOTAL (mmol/L) Date Value 05/23/2020 20 (L) ALBUMIN (g/dL) Date Value 05/23/2020 3.8 T PROTEIN (g/dL) Date Value 05/23/2020 8.0 TOTAL BILI (mg/dL) Date Value 05/23/2020 0.2 BILI UNCON (mg/dL) Date Value 01/03/2020 0.0 (L) BILI CONJ (mg/dL) Date Value 01/03/2020 0.0 ALT(SGPT) (U/L) Date Value 07/23/2019 60 (H) ALTv (U/L) Date Value 05/23/2020 19 AST(SGOT) (U/L) Date Value 05/23/2020 29 ALK PHOS (U/L) Date Value 05/23/2020 171 (H) PATHOLOGY FINDINGS: A. KIDNEY, RIGHT, RADICAL [...] -Tuberous Sclerosis -Angiomyolipoma -CKD -s/p Right Nephrectomy Restarted on Everolimus on 03/29/20, reports good tolerance. But she only took for one month due to no further delivery method set up with the pharmacy. Contact information provided for patient to call pharmacy. Instructed patient to call our office in case of any problem. We discussed importance of nephrotoxic drug avoidance. She is encouraged to follow up with nephrology and genetic consults. -SOB -Lung Nodule She has 6mm lung nodule and experience some SOB which is stable. PFT and repeating CT chest w/ contrast in 10/2020 to re-evaluate. -Anemia -Fatigue -Iron Deficiency -B12 Deficiency Has been on oral supplements for 5 months. Failed therapy. Ferritin remains low. Will correct with parenteral infusion and consulted patient on dose, frequency, benefit vs risks possible side effects. -Hx of Seizure Remains on anti-seizure. Follows neurology. Follow Up: RTC in 3 months after restaging scan. CT order placed. Pt discussed and seen with Dr. Hassan. [...] Jesika Rodriguez, MSN, AGNP Hematology and Oncology [facility] I personally saw and examined the patient with JATIN TownsendP in the division of hematology and oncology, in the Department of Medicine. Kindly review her note for complete details and the planof care is as directed by me. 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 Clement Hassan MD residential program coordinator Division of Hematology and Oncology Yaritza iniguez - 08/28/2020 11:00 AM CDT Vitals: 08/28/20 1036 BP: 112/76 Pulse: 90 Resp: 17 Temp: 36.6 C (97.9 F) TempSrc: Temporal Artery SpO2: 99% Weight: 180 lb (81.6 kg) Height: 5' 1" (1.549 m) Vitals taken and documented. Medication list and allergies unchanged per the patient. Awake, alert and oriented x3. Accompanied by boyfriend Brad. Review of System: Constitutional: Negative for appetite change, chills and fever. HENT: Negative for congestion, mouth sores, nosebleeds, trouble swallowing and voice change. +sore throat Eyes: Negative for visual disturbances and or drainage from eyes Respiratory: Negative for chest pain, cough and or chest tightness. Cardiovascular: Negative for chest pain, palpitations and +leg swelling. Gastrointestinal: Negative for abdominal distention, abdominal pain, anal bleeding, blood in stool, constipation, diarrhea, nausea, rectal pain and vomiting. Genitourinary: Negative for difficulty urinating and hematuria. Musculoskeletal: Negative for arthralgias and back pain. Skin: Negative for rash Neurological: AAOx3, Negative for or disorientation, +numbness or tingling headaches Hematological: Negative for bruising and or bleeding documented in this encounter Plan of Treatment Date Type Specialty Care Team Description 09/24/2020 Office Visit Obstetrics & Gynecology Km Pearce MD [address] [place] [address] DR. Newman [address] [place], [place] [address] 15 [phone] 09/28/2020 Appointment Radiology Jesika Rodriguez NP [address] [place] [address] [phone] 09/28/2020 Appointment Radiology Jesika Rodriguez NP [address] [place] [address] [phone] 10/01/2020 Office Visit [facility], [facility] 11/30/2020 Appointment Radiology Jania Earl, EMERY WHEEL WORKER [address] [facility] [address] [place] [address] [phone] 12/04/2020 Office Visit Oncology Clement Hassan Rp, M D [address] [place] [address] [phone] Name Type Priority Associated Diagnoses Order S chedule CT thorax without IMAGING Routine Angiomyolipoma of both Expected: contrast kidneys 09/28/2020, Expires: Tuberous scleros is 02/26/2021 Status post neph rectomy Pulmonary nodules CT abdomen pelvis IMAGING Routine Angiomyolipoma of both Expected: without contrast kidneys 09/28/2020, Expires: Tuberous scleros is 02/26/2021 Status post neph rectomy Pulmonary nodules Health [...] of this encounter Implants Implanted Type Area Bar Tacker Device Shelf Model / Identifier Expiration Date Ser ial / Lot Mynx Right: Arrow 07/13/2021 [id number] / Implanted: Qty: 1 on 09/27/2019 at [facility] Groin [id number] / [id number] documented as of this encounter Results URINE CULTURE (08/28/2020 12:22 PM CDT) Pathologist Sig nature URINE CULTURE No aerobic growth [facility] (< 1000 CFU/mL) SERVICES Specimen Urine - URINE, CLEAN CATCH Performing Organization Address City/State/Zipcode Phone Number [facility] CLIA: [id number] [place] [address] [address] [place] [address] URINALYSIS (08/28/2020 12:22 PM CDT) Pathologist Sig nature APPEARANCE Clear Clear [facility] COLOR Yellow Yellow [facility] PH 6.0 4.8 - 8.0 [facility] SP GRAVITY 1.017 1.003 - 1.030 [facility] GLU U QUAL Normal Normal [facility] BLOOD 1+ (A) Negative [facility] KETONES Negative Negative [facility] PROTEIN 100 mg/dL (A) Negative [facility] UROBILIN Normal Normal [facility] BILIRUBIN Negative Negative [facility] NITRITE Negative Negative [facility] LEUK CHRISTOPHER Negative Negative [facility] RBC/HPF 6 (H) 0 - 3 HPF [facility] WBC/HPF 1 0 - 5 HPF [facility] BACTERIA Negative Negative [facility] SQ EPITH 1 <=2 HPF [facility] Specimen Urine - URINE, CLEAN CATCH Performing Organization Address City/[facility] Phone Number [facility] CLIA: [id number] [place] [address] [place] [address] VITAMIN B12, LEVEL (08/28/2020 12:22 PM CDT) Pathologist Sig nature VIT B12 251 240 - 930 pg/mL [facility] Specimen Blood Narrative Performed At Biotin has been reported to cause a positive bias, int erpret [facility] results relative to patient's use of biotin. Performing Organization Address City/[facility] Phone Number [facility] CLIA: [id number] [place] [address] [place] [address] TOTAL IRON BINDING CAPACITY (08/28/2020 12:22 PM CDT) Pathologist Sig nature TIBC 337 250 - 410 ug/dL [facility] Specimen Blood Performing Organization Address City/[facility] Phone Number [facility] CLIA: [id number] [place] [address] [place] [address] FERRITIN SERUM (08/28/2020 12:22 PM CDT) Pathologist Sig nature FERRITIN 18.1 6.0 - 137.0 ng/mL [facility]ICE S Specimen Blood Narrative Performed At Biotin has been reported to cause a negative bias, int erpret [facility] results relative to patient's use of biotin. Performing Organization Address City/State/Zipcode Phone Number [facility] CLIA: [id number] [place] [address] [place] [address] COMP. METABOLIC PANEL (06547) (08/28/2020 12:22 PM CDT) NA 140 135 - 145 [facility] mmol/L SERVICES K 4.8 3.5 - 5.0 [facility] mmol/L SERVICES CL 104 98 - 108 mmol/L [facility] CO2 TOTAL 24 23 - 31 mmol/L [facility] AGAP 12 2 - 16 [facility] BUN 16 7 - 23 mg/dL [facility] GLUCOSE 102 70 - 110 mg/dL [facility] CREATININE 1.20 (H) 0.50 - 1.04 [facility] mg/dL SERVICES TOTAL BILI 0.3 0.1 - 1.1 mg/dL [facility] CALCIUM 9.7 8.6 - 10.6 [facility] mg/dL SERVICES T PROTEIN 8.2 6.3 - 8.2 g/dL [facility] ALBUMIN 4.4 3.5 - 5.0 g/dL [facility] ALK PHOS 130 (H) 34 - 122 U/L [facility] ALTv 12 5 - 35 U/L [facility] AST(SGOT) 22 13 - 40 U/L [facility] eGFR Calculation 52.7 mL/min/1.73m2 [facility] (Non- SERVICES Cameroonian) eGFR Calculation 63.9 mL/min/1.73m2 [facility] () SERVICES Specimen Blood Narrative Performed At Association of Glomerular Filtration Rate (GFR) and St aging [facility] of Kidney Disease* + + [...] . Performing Organization Address City/State/Zipcode Phone Number [facility] CLIA: [id number] [place] [address] [place] [address] CBC WITH DIFF (08/28/2020 12:22 PM CDT) Pathologist Sig nature WBC 9.58 4.30 - 11.10 [facility] 10*3/L SERVICES RBC 4.03 3.93 - 5.25 [facility] 10*6/L SERVICES HGB 11.8 11.6 - 15.0 [facility] g/dL SERVICES HCT 37.7 35.7 - 45.2 % [facility] MCV 93.5 80.6 - 95.5 fL [facility] MCH 29.3 25.9 - 32.8 pg [facility] MCHC 31.3 (L) 31.6 - 35.1 [facility] g/dL SERVICES RDW-SD 49.7 39.0 - 49.9 fL [facility] RDW-CV 14.5 12.0 - 15.5 % [facility] PLT 448 (H) 166 - 358 [facility] 10*3/L SERVICES MPV 9.7 9.5 - 12.9 fL [facility] NRBC/100 WBC 0.0 0.0 - 10.0 /100 [facility] WBCs SERVICES NRBC x10^3 <0.01 10*3/L [facility] GRAN MAT (NEUT) % 71.9 % [facility] IMM GRAN % 0.50 % [facility] LYMPH % 19.7 % [facility] MONO % 7.3 % [facility] EOS % 0.3 % [facility] BASO % 0.3 % [facility] GRAN MAT x10^3(ANC) 6.88 1.88 - 7.09 [facility] 10*3/uL SERVICES IMM GRAN x10^3 0.05 0.00 - 0.06 [facility] 10*3/uL SERVICES LYMPH x10^3 1.89 1.32 - 3.29 [facility] 10*3/uL SERVICES MONO x10^3 0.70 0.33 - 0.92 [facility] 10*3/uL SERVICES EOS x10^3 0.03 0.03 - 0.39 [facility] 10*3/uL SERVICES BASO x10^3 0.03 0.01 - 0.07 [facility] 10*3/uL SERVICES Specimen Blood Performing Organization Address City/State/Zipcode Phone Number [facility] CLIA: [id number] [place] [address] [place] [address] documented in this encounter Visit Diagnoses Diagnosis Angiomyolipoma of both kidneys - Primary Iron deficiency Other disorders of iron metabolism B12 deficiency Other B-complex deficiencies Tuberous sclerosis Status post nephrectomy Pulmonary nodules Other nonspecific abnormal finding of hao ng field Dysuria Chronic fatigue Other malaise and fatigue Renal mass Unspecified disorder of kidney and urete r documented in this encounter Insurance Payer Benefit Plan / Subscriber ID Effective Phone Address T ype Group Dates TOBIN RUDD [id number] 2015-Caitlyn [address] [place] [id number] MANAG[place] MEDICA[place], [place] documented as of this encounter Advance Directives Name Relationship Healthcare Agent Communication Relationship Jadatrinidad Morse Sibling Health Care Agent Darien Barnett Jr. Step Parent [facility] Care Agent (Mobile)
--- OUTSIDE RECORDS SUMMARY | 2020-10-01 14:39 | XMS REPORT | Summary of Care ---
:1990 Author Organization [facility] Address [address] [place] [address] Care Team Providers Name Role Phone Krysta Hurst Primary Care Provider Reason for Visit Reason Comments Rx Concern/Question STD transmission Encounter Details Date Type Department Care Team Description 09/07/2020 Telephone [facility] Women's Mariaa Pearce FNP Rx Concern/Question (STD [facility]- [place] [address] A [facility] transmission ) [address] [place] [address], [address] [place] [phone] Allergies No Known Allergiesdocumented as of this encounter (statuses as of 09/09/2020) Medications Medication Sig Dispensed Refills Start Date End Date Status Lamotrigine 100 mg Take by mouth. 0 Active TbDL traZODONE 50 mg Take 50 mg by 0 Active tablet mouth at bedtime. GIANMAVERICK, 28, 3-0.02 mg Take 1 tablet by [...] 0 Active VITAMIN B-12, ORAL mouth daily. fluconazole 150 mg Take 1 tablet by 2 tablet 0 08/31/2020 Active tabletIndications: mouth now, and Candidiasis of vulva take 1 tablet by and vagina mouth in 1 week. documented as of this encounter (statuses as of 09/09/2020) Active Problems Problem Noted Date Papanicolaou smear [...] medication as prescribed. No bathing, swimming, operating Perceptis machinery, climbing ladders without supervision No driving [...] automatically from request for luz maria vel [id number] 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 Overview: Added automatically from request for luz maria vel [id number] Obesity (BMI 30-39.9) 09/27/2019 Mass of right kidney 09/26/2019 documented as of this encounter (statuses as of 09/09/2020) Immunizations Name Administration Dates Next Due Influenza [...] this encounter Miscellaneous Notes Telephone Encounter - Aubrie Carr RN - 09/09/2020 1:17 PM CDTPatient in clinic today, will have provider address questions at visit. AUBRIE CARR RN 09/09/2020 1:18 PM Telephone Encounter - Aubrie Carr RN - 09/09/2020 10:31 AM CDTCalled patient, no answer. Left vm. AUBRIE CARR RN 09/09/2020 10:31 AM Telephone Encounter - Shaggy Saenz - 09/07/2020 3:35 PM CDTMelidiego Wall is a 30 year old female Patient is calling to speak with a nurse about STD's and transmission. documented in this encounter Plan of Treatment Date Type Specialty Care Team Description 09/24/2020 Office Visit Obstetrics & Gynecology Km Pearce MD [address] [place] [address] 775 15 09/28/2020 Appointment Radiology Jesika Rodriguez, JR [address] [place] [address] 555 09/28/2020 Appointment Radiology Jesika Rodriguez NP [address] [place] [address] 77 555 10/01/2020 Office Visit OB Satellites Res-Colpo/Leep, [facility] 11/30/2020 Appointment Radiology Jania Earl, RECREATION ADVISER [address] [facility] [address] [place] [address] [phone] 12/04/2020 Office Visit Oncology Clement Hassan Rp, M D [address] [place] [address] 77 555 Health Maintenance Due Date Last Done Comments DTaP,Tdap,and Td Vaccines (1 08/27/2021 Pos tponed from - Tdap) 2009 (Alte rnative Guidelines) Depression Screening 08/27/2021 08/27/2020 VARICELLA VACCINES (1 of 2 - 08/27/2021 Pos tponed from 2-dose childhood series) 991 (Alternative Guidelines) PAP SMEAR 08/27/2023 08/27/2020 INFLUENZA VACCINE Completed 08/27/2020, 10/01/2019 PNEUMOCOCCAL 0-64 YEARS Discontinued COMBINED SERIES documented as of this encounter Implants Implanted Type Area Haul Cane Brakeman Device Shelf Model / Identifier Expiration Date Ser ial / Lot Mynx Right: Arrow 07/13/2021 [id number] / Implanted: Qty: 1 on 09/27/2019 at [facility] Aubrey [id number] / [id number] documented as of this encounter Results Not on filedocumented in this encounter Insurance Payer Benefit Plan / Subscriber ID Effective Phone Address [facility] Group Dates TOBIN RUDD [id number] 2015-Caitlyn Isbell O BOX Medic [place] [address] MANAGED MEDICAID [place] documented as of this encounter Advance Directives Name Relationship Healthcare Agent Communication Relationship Jada Morse Sibling Health Care Agent Darien Barnett Jr. Step Parent [facility] [phone] Care Agent (Mobile)
--- OUTSIDE RECORDS SUMMARY | 2020-10-01 14:39 | XMS REPORT | Summary of Care ---
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 Pulmonary nodules Jesika Rodriguez NP Radiology Procedures CT abdomen pelvis without contrast [address] [place] [id number] MRI/CAT Scan (Routine) Status Reason Specialty Diagnoses / Referred By Referred To Procedures Contact Contact New Request Diagnostic Diagnoses 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 Pulmonary nodules Jesika Rodriguez NP Radiology Procedures CT thorax without contrast [address] [place] [id number] Reason for Visit Reason Comments Follow-up Encounter Details Date Type Department Care Team Description 08/28/2020 Office Visit [facility] Clement Hassan Rp, M D Angiomyolipoma of both kidneys (Primary Dx); Hematology-Oncology [address] [facility] Iron deficiency; [place] [address] B12 deficiency; [address] [phone] Tuberous sclerosis; Drive Status post nephrectomy; [facility] Pulmonary nodul es; [facility], [facility] Dysuria; 1.230 Chronic fatigue; [place], [place] Renal mass [phone] Allergies No Known [...] automatically from request for luz maria vel [id number] 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 Overview: Added automatically from request for luz maria vel [id number] Obesity (BMI 30-39.9) 09/27/2019 Mass of right [...] Medical information obtained from sister/medical power of transactional attorney Kacy and patient. Hx of Tuberous [...] any refill. In 05/2020 she presented to [facility] ER for LLQ pain, labs overall stable, [...] file Gets together: Not on file Attends christianity service: Not on file Active member of [...] sclerosis) Father Hypothyroidism Other Stroke Maternal Aunt [place] (myocardial infarction) Maternal Aunt REVIEW OF SYSTEMS [...] Jesika Rodriguez, MSN, AGNP Hematology and Oncology [facility] I personally saw and examined the [...] follow-up after the above. Clement Hassan MD fish conservationist Division of Hematology and Oncology Yaritza iniguez [...] Visit Obstetrics & Gynecology Km Pearce MD [address] [place] [address] DR. Newman [address] [place], [place] [address] 15 [phone] 09/28/2020 Appointment Radiology Jesika Rodriguez NP [address] [place] [address] 77 555 09/28/2020 Appointment Radiology Jesika Rodriguez NP [address] [place] [address] 77 555 10/01/2020 Office Visit OB Satellites Res-Colpo/Leep, [facility] 11/30/2020 Appointment Radiology Jania Earl, EXPELLER WORKER [address] [facility] [address] [place] [address] [phone] 12/04/2020 Office Visit Oncology Clement Hassan Rp, M D [address] [place] [address] 77 555 Name Type Priority Associated Diagnoses [...] of this encounter Implants Implanted Type Area Fastener Sewing Machine Operator Device Shelf Model / Identifier Expiration Date Ser ial / Lot Mynx Right: Arrow 07/13/2021 [id number] / Implanted: Qty: 1 on 09/27/2019 at [facility] Groin [id number] / [id number] documented as of this encounter Results URINE CULTURE (08/28/2020 12:22 PM CDT) Pathologist Sig nature URINE CULTURE No aerobic growth [facility] (< 1000 CFU/mL) SERVICES Specimen Urine - URINE, CLEAN CATCH Performing Organization Address City/State/Zipcode Phone Number [facility] CLIA: [id number] [place], [place] [address] [address] [place] [address] URINALYSIS (08/28/2020 12:22 PM CDT) Pathologist Sig nature APPEARANCE Clear Clear [facility] COLOR Yellow Yellow [facility] PH 6.0 4.8 - 8.0 [facility] SP GRAVITY 1.017 1.003 - 1.030 [facility] GLU U QUAL Normal Normal [facility] BLOOD 1+ (A) Negative [facility] KETONES Negative Negative [facility] PROTEIN 100 mg/dL (A) Negative [facility] UROBILIN Normal Normal [facility] BILIRUBIN Negative Negative [facility] NITRITE Negative Negative [facility] LEUK CHRISTOPHER Negative Negative [facility] RBC/HPF 6 (H) 0 - 3 HPF [facility] WBC/HPF 1 0 - 5 HPF [facility] BACTERIA Negative Negative [facility] SQ EPITH 1 <=2 HPF [facility] Specimen Urine - URINE, CLEAN CATCH Performing Organization Address [facility] Phone Number [facility] CLIA: [id number] [place] [address] [place] [address] VITAMIN B12, LEVEL (08/28/2020 12:22 PM CDT) Pathologist Sig nature VIT B12 251 240 - 930 pg/mL [facility] Specimen Blood Narrative Performed At Biotin has been reported to cause a positive bias, int erpret [facility] results relative to patient's use of biotin. Performing Organization Address City[facility] Phone Number [facility] CLIA: [id number] [place] [address] [place] [address] TOTAL IRON BINDING CAPACITY (08/28/2020 12:22 PM CDT) Pathologist Sig nature TIBC 337 250 - 410 ug/dL [facility] Specimen Blood Performing Organization Address [facility] Phone Number [facility] CLIA: [id number] [place] [address] [place] [address] FERRITIN SERUM (08/28/2020 12:22 PM CDT) Pathologist Sig nature FERRITIN 18.1 6.0 - 137.0 ng/mL [facility] S Specimen Blood Narrative Performed At Biotin has been reported to cause a negative bias, int erpret [facility] results relative to patient's use of biotin. Performing Organization Address City/State/Zipcode Phone Number [facility] CLIA: [id number] [place] [address] [place] [address] COMP. METABOLIC PANEL (99393) (08/28/2020 12:22 PM CDT) NA 140 135 - 145 [facility] mmol/L SERVICES K 4.8 3.5 - 5.0 [facility] mmol/L SERVICES CL 104 98 - 108 mmol/L [facility] CO2 TOTAL 24 23 - 31 mmol/L [facility] AGAP 12 2 - 16 [facility] BUN 16 7 - 23 mg/dL [facility] GLUCOSE 102 70 - 110 mg/dL [facility] CREATININE 1.20 (H) 0.50 - 1.04 [facility] mg/dL SERVICES TOTAL BILI 0.3 0.1 - 1.1 mg/dL [facility] CALCIUM 9.7 8.6 - 10.6 [facility] mg/dL SERVICES T PROTEIN 8.2 6.3 - 8.2 g/dL [facility] ALBUMIN 4.4 3.5 - 5.0 g/dL [facility] ALK PHOS 130 (H) 34 - 122 U/L [facility] ALTv 12 5 - 35 U/L [facility] AST(SGOT) 22 13 - 40 U/L [facility] eGFR Calculation 52.7 mL/min/1.73m2 [facility] (Non- SERVICES Tristanian) eGFR Calculation 63.9 mL/min/1.73m2 [facility] () SERVICES Specimen Blood Narrative Performed At Association of Glomerular Filtration Rate (GFR) and St aging [facility] of Kidney Disease* + [...] . Performing Organization Address City/State/Zipcode Phone Number [facility] CLIA: [id number] [place] [address] [place] [address] CBC WITH DIFF (08/28/2020 12:22 PM CDT) [...] IMM GRAN x10^3 0.05 0.00 - 0.06 [facility] 10*3/uL SERVICES LYMPH x10^3 1.89 1.32 - 3.29 [facility] 10*3/uL SERVICES MONO x10^3 0.70 0.33 - 0.92 [facility] 10*3/uL SERVICES EOS x10^3 0.03 0.03 - 0.39 [facility] 10*3/uL SERVICES BASO x10^3 0.03 0.01 - 0.07 [facility] 10*3/uL SERVICES Specimen Blood Performing Organization Address City/State/Zipcode Phone Number [facility] CLIA: [id number] [place] [address] [place] [address] documented in this encounter Visit Diagnoses Diagnosis [...] Address T ype Group Dates TOBIN RUDD [id number] 2015-Caitlyn [address] B[address] Medic aid [place] [address] MA[place]ED MED[place] documented as of this encounter Advance Directives Name Relationship Healthcare Agent Communication Relationship Jadatrinidad Morse Sibling Health Care Agent Darien Barnett Jr. Step Parent [facility] Care Agent (Mobile)
--- OUTSIDE RECORDS SUMMARY | 2020-10-01 14:40 | XMS REPORT | Summary of Care ---
:1990 Author Organization [facility] Address [address] [place] [address] Care Team Providers Name Role Phone Krysta Hurst Primary Care Provider Reason for Visit Reason Comments ACCOUNTING COORDINATOR problem Vaginal Pain/DC Encounter Details Date Type Department Care Team Description 09/09/2020 [facility] Hurst Ot er general counseling and advice for contraceptive management (Primary Dx); CINDY Perez Screen for STD (sexually transmitted dis ease); [address] [facility] [address] [place], [place] [phone] Allergies No Known Allergiesdocumented as of this [...] medication as prescribed. No bathing, swimming, operating MediKeeper machinery, climbing ladders without supervision No driving [...] automatically from request for luz maria vel [id number] 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 Overview: Added automatically from request for luz maria vel [id number] Obesity (BMI 30-39.9) 09/27/2019 Mass of right [...] been in contact with No / Unsure 09/09/2020 1:41 PM CDT someone who was confirmed or suspected to have Coronavirus / COVID-19? documented as of this encounter Last Filed Vital Signs Vital Sign Reading Time Taken Comments Blood Pressure 125/84 09/09/2020 1:41 PM CDT Pulse 89 09/09/2020 1:41 PM CDT Temperature 36.3 C (97.3 F) 09/09/2020 1:41 PM CDT Respiratory Rate 16 09/09/2020 1:41 PM CDT Oxygen Saturation - - Inhaled Oxygen Concentration - - Weight 82.1 kg (181 lb) 09/09/2020 1:41 PM CDT Height 154.9 cm (5' 1") 09/09/2020 1:41 PM CDT Body Mass Index 34.2 09/09/2020 1:41 PM CDT documented in this encounter Progress Notes Yadira Hurst, WHCLARKP - 09/09/2020 1:15 PM CDT Chief complaint: Chief Complaint Patient presents with ACCOUNTING COORDINATOR problem Vaginal Pain/DC HPI: the patient is here today with complaints of vaginal discharge and vaginal burning. She reportsshe was seen about 2 weeks ago with the same issues. According to the patient she reports she was treated for yeast and BV. She reports today that she still feels as though she has the same infections.Sh ereports that 5 year ago she was sexual active with female partners and reports that the partner was not clean and she thinks that may be where she got her infection from, although she reports she is currently with a male partner for the past 9 months. Histories OB History Para Term AB Living 0 0 0 0 0 0 SAB TAB Ectopic Multiple Live Births 0 0 0 0 0 Obstetric Comments Menarche: 13 BCP: started in 08/2019 Past Medical History: Diagnosis Date Angiomyolipoma of both kidneys Bacterial vaginitis 08/31/2020 Benign brain tumor Cervical high risk human papillomavirus (HPV) DNA test positive 08/31/2020 Depression resolved Iron deficiency 08/28/2020 Kidney tumor Seizures on medication at this time Suicidal ideation Tuberous sclerosis Family History Problem Relation Age of Onset Other - see comments Mother angiomyolipoma Kidney failure Mother Other - see comments Brother angiomyolipoma, brain tumor MS (multiple sclerosis) Father Hypothyroidism Other Stroke Maternal Aunt [place] (myocardial infarction) Maternal Aunt Family Status Relation Name Status Mo Bro (Not Specified) Fa (Not Specified) OTHER multiple Alive MAunt Past Surgical History: Procedure Laterality Date NEPHRECTOMY Right 11/19/2019 Surgeon: Hi Boyle MD; Location: [facility] OTHER stimulant for seizure to left breast [...] file Gets together: Not on file Attends mu-ism service: Not on file Active member of [...] medication list which includes the following prescription(s): fluconazole, cyanocobalamin (vitamin b-12), amoxicillin, chlorhexidine, cyclobenzaprine, magnesium oxide, pantoprazole, proair hfa, everolimus, acetaminophen, acetaminophen, fluticasone propionate, gianvi (28), lamotrigine, and trazodone. Review of Systems Constitutional: Negative. HENT: Negative. Eyes: Negative. Respiratory: Negative. Breasts: Negative. Cardiovascular: Negative. Gastrointestinal: Negative. Genitourinary: Positive for vaginal discharge. Musculoskeletal: Negative. Skin: Negative. Neurological: Negative. Psychiatric/Behavioral: Negative. Endocrine: Endocrine negative BP 125/84 (BP Location: Right arm, Patient Position: Sitting, BP CUFF SIZE: Adult Medium) | Pulse 89 | Temp 36.3 C (97.3 F) (Oral) | Resp 16 | Ht 5' 1" (1.549 m) | Wt 181 lb (82.1 kg) | LMP 08/07/2020 | BMI 34.20 kg/m Pregravid BMI: Could not be calculated Physical Exam Vitals reviewed. Constitutional: She is oriented to person, place, and time. She appears well- developed and well-nourished. Her body habitus is normal. Cardiovascular: Regular rate and rhythm. Pulmonary/Chest: Normal inspiratory effort. Neuro/Psychiatric: She has a normal mood and affect. She is oriented to person, place, and time. Genitourinary Comments: Ebun medstudent present during exam External genitalia: Normal external genitalia appropriate for age. Normal hair distribution. No labial lesion. Urethral meatus: Normal urethral meatus size, location and no lesion. No prolapse present. Normal urethral meatus Urethra: Normal urethra. No urethral tenderness, no mass and no urethral scarring palpated. Bladder: Bladder has no fullness, no mass palpated and no tenderness. Normal bladder Vagina:No lesion inspected. Normal estrogen effect. Normal support. Vaginal discharge found. No lesions in the vagina. +vaginal discharge Cervix: Normal cervix. No lesion. No tenderness and no discharge present. Uterus: Uterus is normal size, normal contour, normal position and non-tender. Normal uterus Adnexa: Right adnexa without tenderness, ovary enlargement or mass. Left adnexa without tenderness, ovary enlargement or mass. Normal left adnexa and normal right adnexa Assessment/Plan Return to clinic in prn weeks. Other general counseling and advice for contraceptive management (primary encounter diagnosis) Comment: routine Plan: as needed mgmt Screen for STD (sexually transmitted disease) Comment: as ordered Plan: GC & CHLAMYDIA AMPLIFIED ASSAY, CANCELED: HIV 1/2 AG-AB WITH REFLEX Vaginal discharge Comment: as ordered Plan: GAL[facility] ONLY - VAGINAL PATHOGENS BY NUCLEIC ACID TESTING This visit did not involve counseling and coordination that comprised more than 50% of the visit time. CINDY White 09/09/2020 4:46 PM documented in this encounter Plan of Treatment Date Type Specialty Care Team Description 09/24/2020 Office Visit Obstetrics & Gynecology Km Pearce MD [address] [place], [place] [address] [address] [place] [address] 15 [phone] 09/28/2020 Appointment Radiology Jesika Rodriguez NP [address] [place] [address] 77 555 09/28/2020 Appointment Radiology Jesika Rodriguez NP [address] [place] [address] 77 555 10/01/2020 Office Visit OB Satellites Res-Colpo/Leep, [facility] 11/30/2020 Appointment Radiology Jania Earl, AIR PUMPER [address] [place] [address] [address] [place] [address] [phone] 12/04/2020 Office Visit Oncology Clement Hassan Rp, M [address] 77 555 [phone] 09/09/2021 Office Visit OB Satellites Natali, Yadira C, CNP [address] [facility] [place] [place] [address] Name Type Priority Associated Diagnoses Date/Ti me GC & CHLAMYDIA LAB Routine Screen for STD (sexually 1 2:53 PM CDT AMPLIFIED ASSAY transmitted disease) [facility] ONLY - VAGINAL LAB Routine Vaginal discharge 2:53 PM CDT PATHOGENS BY NUCLEIC ACID TESTING Health Maintenance Due Date Last Done Comments [...] of this encounter Implants Implanted Type Area Delivery And Installation Subcontractor Device Shelf Model / Identifier Expiration Date Ser ial / Lot Mynx Right: Arrow 07/13/2021 [id number] / Implanted: Qty: 1 on 09/27/2019 at [facility] Groin [id number] / [id number] documented as of this encounter Results Not on filedocumented in this encounter Visit Diagnoses Diagnosis Other general counseling and advice for contraceptive management - Primary Screen for STD (sexually transmitted dis ease) Screening examination for venereal disea se Vaginal discharge Leukorrhea, not specified as infective documented in this encounter Insurance Payer Benefit Plan / Subscriber ID Effective Phone Address T ype Group Dates TOBIN RUDD [id number] 2015-Prese [address] Medic [place] [address] [place] documented as of this encounter Advance Directives Name Relationship Healthcare Agent Communication Relationship Jada Morse Sibling Health Care Agent Darien Barnett Jr. Step Parent [facility] Care Agent (Mobile)
--- OUTSIDE RECORDS SUMMARY | 2020-10-01 14:40 | XMS REPORT | Summary of Care ---
:1990 Author Organization [facility] Address [address] [place] [address] Care Team Providers Name Role Phone Krysta Hurst [facility] Primary Care Provider Reason for Visit Reason Comments BACTERIAL VAGINOSIS YEAST INFECTION Encounter Details Date Type Department Care Team Description 09/10/2020 Telephone [facility]- Yadira Hurst TERIAL VAGINOSIS; Marcella Chaparro MARLY YEAST INFECTION 1108 [facility] [address] [facility] RY [facility] SARI [place], [place] [address] [phone] Allergies No Known Allergiesdocumented as of this encounter (statuses as of 09/10/2020) Medications Medication Sig Dispensed Refills Start Date [...] by and vagina mouth in 1 week. clindamycin 300 mg Take 1 capsule by 14 capsule 0 09/10/2020 1 Active capsuleIndications: mouth 2 (two) 0 BV (bacterial times daily for 7 vaginosis) days. fluconazole Take 1 tablet by 1 tablet 0 09/10/2020 Active (DIFLUCAN) 150 mg mouth once now for 0 tabletIndications: 1 dose. Vaginal yeast infection documented as of this encounter (statuses as of 09/10/2020) Active Problems Problem Noted Date Papanicolaou smear [...] medication as prescribed. No bathing, swimming, operating [employer] machinery, climbing ladders without supervision No driving [...] automatically from request for luz maria vel [id number] 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 Overview: Added automatically from request for luz maria vel [id number] Obesity (BMI 30-39.9) 09/27/2019 Mass of right kidney 09/26/2019 documented as of this encounter (statuses as of 09/10/2020) Immunizations Name Administration Dates Next Due Influenza [...] Telephone Encounter - Karla Bravo LVN - 09/10/2020 3:30 PM CDTMelierikajenifer Wall is a 30 year old female Informed patient of results and new orders, verbalized understanding. Telephone Encounter - Yadira Hurst WHCNP - 09/10/2020 2:01 PM CDT Please notify the patient her labs are indicative of BV, meds have been sent to her pharmacy on file. Please have her complete the entire course as prescribed. Please notify the patient that yeast was identified. Meds have been sent to her pharmacy on file, please advise the patient to complete the meds as prescribed, and practice good perineal hygiene. CINDY White 09/10/2020 2:03 PM documented in this encounter Plan of Treatment Date Type Specialty Care Team Description 09/24/2020 Office Visit Obstetrics & Gynecology Km Pearce MD [address] [place] [address] 09/28/2020 Appointment Radiology Jesika Rodriguez NP [address] [place] [address] 555 09/28/2020 Appointment Radiology Jesika Rodriguez NP [address] [place] [address] 555 10/01/2020 Office Visit OB Satellites Res-Colpo/Leep, [facility] 11/30/2020 Appointment Radiology Jania Earl, MISSILE TECHNICIAN [address] [facility] [address] [place] [address] [phone] 12/04/2020 Office Visit Oncology Clement Hassan Rp, M D [address] [place] [address] 77 555 09/09/2021 Office Visit OB Satellites Yadira Hurst WHCNP [address] [facility] [place], [place] [address] Health Maintenance Due Date Last Done Comments [...] of this encounter Implants Implanted Type Area Lump Machine Operator Device Shelf Model / Identifier Expiration Date Ser ial / Lot Mynx Right: Arrow 07/13/2021 [id number] / Implanted: Qty: 1 on 09/27/2019 at [facility] Groin [id number] / [id number] documented as of this encounter Results Not on filedocumented in this encounter Visit Diagnoses Diagnosis BV (bacterial vaginosis) - Primary Vaginitis and vulvovaginitis, unspecifie d Vaginal yeast infection Candidiasis of vulva and vagina documented in this encounter Insurance Payer Benefit Plan / Subscriber ID Effective Phone Address T [facility] Dates TOBIN RUDD [id number] 2015-Prese [address] [place] [id number] MA[place] MED[place] documented as of this encounter Advance Directives Name Relationship Healthcare Agent Communication Relationship Jada Morse Sibling Health Care Agent Darien Barnett Jr. Step Parent Second [facility] Care Agent (Mobile)
--- OUTSIDE RECORDS SUMMARY | 2020-10-01 14:40 | XMS REPORT | Summary of Care ---
:1990 Author Organization [facility] Address [address] [place] [address] Care Team Providers Name Role Phone Krysta Hurst Primary Care Provider Reason for Visit Reason Comments EXHIBIT ARTIST problem Vaginal Pain/DC Encounter Details Date Type Department Care Team Description 09/09/2020 [facility] Ot er general counseling and advice for contraceptive management (Primary Dx); CINDY Perez Screen for STD (sexually transmitted dis ease); [address] [place] [address] [facility] [address] [place], [place] [phone] Allergies No Known Allergiesdocumented as of this [...] medication as prescribed. No bathing, swimming, operating [employer] machinery, climbing ladders without supervision No driving [...] automatically from request for luz maria vel [id number] 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 Overview: Added automatically from request for luz maria vel [id number] Obesity (BMI 30-39.9) 09/27/2019 Mass of right [...] Chief complaint: Chief Complaint Patient presents with EXHIBIT ARTIST problem Vaginal Pain/DC HPI: the patient is [...] sclerosis) Father Hypothyroidism Other Stroke Maternal Aunt AL (myocardial infarction) Maternal Aunt Family Status Relation Name Status Mo Bro (Not Specified) Fa (Not Specified) OTHER multiple Alive MAunt Past Surgical History: Procedure Laterality Date NEPHRECTOMY Right 11/19/2019 Surgeon: Hi Boyle MD; Location: [facility] OTHER stimulant for seizure to left breast [...] file Gets together: Not on file Attends buddhist service: Not on file Active member of [...] Visit Obstetrics & Gynecology Km Pearce MD [address] [place], [place] [address]G[place]le [facility] [[email or web address]] [address] [place] [address] 15 [phone] 09/28/2020 Appointment Radiology Jesika Rodriguez NP [address] [place] [address] 77 555 09/28/2020 Appointment Radiology Jesika Rodriguez NP [address] [place] [address] 77 555 10/01/2020 Office Visit OB Satellites Res-Colpo/Leep, [facility] 11/30/2020 Appointment Radiology Jania Earl, GRINDING SUPERVISOR [address] [place] [address] [address] [place] [address] [phone] 12/04/2020 Office Visit Oncology Clement Hassan Rp, M [address] 77 555 [phone] 09/09/2021 Office Visit OB Satellites Natali, Yadira C, CNP [address] [facility] [place], [place] [address] Name Type Priority Associated [...] of this encounter Implants Implanted Type Area Palliative Care Coordinator Device Shelf Model / Identifier Expiration Date Ser ial / Lot Mynx Right: Arrow 07/13/2021 [id number] / Implanted: Qty: 1 on 09/27/2019 at [employer] Groin [id number] / [id number] documented as of this encounter Results Not [...] Address T ype Group Dates TOBIN RUDD [id number] 2015-Prese P O BOX Medic [place] [address] MA[place]ED MEDICAID [place] documented as of this encounter Advance Directives Name Relationship Healthcare Agent Communication Relationship Jada Morse Sibling Health Care Agent Darien Barnett Jr. Step Parent [facility] Care Agent (Mobile)
--- OUTSIDE RECORDS SUMMARY | 2020-10-01 14:40 | XMS REPORT | Summary of Care ---
:1990 Author Organization [facility] Address [address] [place] [address] Care Team Providers Name Role Phone Krysta Hurst [facility] Primary Care Provider Reason for Visit Reason Comments BACTERIAL VAGINOSIS YEAST INFECTION Encounter Details Date Type Department Care Team Description 09/10/2020 Telephone [facility]- Yadira Hurst TERIAL VAGINOSIS; Marcella Chaparro MARLY YEAST INFECTION 1108 [facility] [address] [facility] RY [facility] SARI [place], [place] [address] [phone] Allergies No Known Allergiesdocumented as of this [...] medication as prescribed. No bathing, swimming, operating [employer] machinery, climbing ladders without supervision No driving [...] automatically from request for luz maria vel [id number] 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 Overview: Added automatically from request for luz maria vel [id number] Obesity (BMI 30-39.9) 09/27/2019 Mass of right [...] this encounter Miscellaneous Notes Telephone Encounter - Yadira Hurst, MARLY - 09/10/2020 2:01 PM CDT Please notify [...] Visit Obstetrics & Gynecology Km Pearce MD [address] [place] [address] [phone] 09/28/2020 Appointment Radiology Jesika Rodriguez NP [address] [place] [address] 555 09/28/2020 Appointment Radiology Jesika Rodriguez NP [address] [place], [place] [address] 10/01/2020 Office Visit OB Satellites Res-Colpo/Leep, [facility] 11/30/2020 Appointment Radiology Jania Earl, INFORMATION SYSTEMS DIRECTOR [address] [facility] [address] [place] [address] [phone] 12/04/2020 Office Visit Oncology Clement Hassan Rp, M D [address] [place] [address] 77 555 09/09/2021 Office Visit OB Satellites Yadira Hurst WHCNP [address] [facility] [place] [place] [address] [phone] Health Maintenance Due Date Last Done Comments [...] of this encounter Implants Implanted Type Area Custodian Manager Device Shelf Model / Identifier Expiration Date Ser ial / Lot Mynx Right: Arrow 07/13/2021 [id number] / Implanted: Qty: 1 on 09/27/2019 at [facility] Groin [id number] / [id number] documented as of this encounter Results Not on filedocumented in this encounter Visit Diagnoses Diagnosis BV (bacterial vaginosis) - Primary Vaginitis and vulvovaginitis, unspecifie d Vaginal yeast infection Candidiasis of vulva and vagina documented in this encounter Insurance Payer Benefit Plan / Subscriber ID Effective Phone Address T [facility] Group Dates TOBIN RUDD [id number] 2015-Caitlyn MARC Medic [place] [id number] MA[place] MEDICA[place] documented as of this encounter Advance Directives Name Relationship Healthcare Agent Communication Relationship Jada Morse [facility] Care Agent Darien Barnett Jr. Step Parent [facility] [phone] Care Agent (Mobile)
--- OUTSIDE RECORDS SUMMARY | 2020-10-01 14:41 | XMS REPORT | Summary of Care ---
:1990 Author Organization [facility] Address [address] [place] [address] Care Team Providers Name Role Phone [facility]rust [facility] Primary Care Provider Reason for Referral (ENRIQUE) Status Reason Specialty Diagnoses / Referred By Referred To Procedures Contact Contact New Request Infusion Therapy Diagnoses Angiomyolipoma of both kidneys Iron deficiency Status post nephrectomy Normocytic anemia Jesika Rodriguez NP Procedures CONSULT/REFERRAL AMB INFUSION THERAPY Preferred location: [address] [address] Reason for Visit Reason Comments Orders Encounter Details Date Type Department Care Team Description 09/16/2020 Case Management [facility] Jesika Rodriguez NP Orders Hematology-Oncology - [address] [place] [address] 100[address] Marcin ahmadi [phone] [facility], [address] [place] [address] Allergies No Known Allergiesdocumented as of this encounter (statuses as of 09/16/2020) Medications Medication Sig Dispensed Refills Start Date End Date Status Lamotrigine 100 mg Take by mouth. 0 Active TbDL traZODONE 50 mg Take 50 mg by 0 Active tablet mouth at bedtime. Chandler FRANCO, 3-0.02 mg Take 1 tablet by 5 [...] (bacterial times daily for 7 vaginosis) days. documented as of this encounter (statuses as of 09/16/2020) Active Problems Problem Noted Date Papanicolaou smear [...] medication as prescribed. No bathing, swimming, operating [employer] machinery, climbing ladders without supervision No driving [...] automatically from request for luz maria crowder [id number] 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 Overview: Added automatically from request for luz maria crowder [id number] Obesity (BMI 30-39.9) 09/27/2019 Mass of right kidney 09/26/2019 documented as of this encounter (statuses as of 09/16/2020) Immunizations Name Administration Dates Next Due Influenza [...] encounter Progress Notes Jesika Rodriguez NP - 09/16/2020 12:45 PM CSTOrder replaced for ADC location instead. documented in this encounter Plan of Treatment Date Type Specialty Care Team Description 09/24/2020 Office Visit Obstetrics & Gynecology Km Pearce MD [address] [place] [address] 7[address] [phone] 09/24/2020 Office Visit OB Satellites Chloe Boyle, PANTOGRAPH MACHINE OPERATOR [address] [place], [place] [address] [phone] 09/28/2020 Appointment Radiology Jesika Rodriguez, JR [address] [place] [address] 555 09/28/2020 Appointment Radiology Jesika Rodriguez NP [address] [place] [address] 77 555 10/01/2020 Office Visit OB Satellites Res-Colpo/Leep, [facility] 11/30/2020 Appointment Radiology Jania Earl, PANTOGRAPH MACHINE OPERATOR [address] [facility] [address] [place] [address] [phone] 12/04/2020 Office Visit Oncology Clement Hassan Rp, M D [address] [place] [address] 77 555 09/09/2021 Office Visit OB Satellites Yadira Hurst, CNP [address] [place] [place], [place] [address] [phone] Health Maintenance Due Date Last Done Comments [...] of this encounter Implants Implanted Type Area Chiller Hand Device Shelf Model / Identifier Expiration Date Ser ial / Lot Mynx Right: Arrow 07/13/2021 [id number] / Implanted: Qty: 1 on 09/27/2019 at [facility] Groin [id number] / [id number] documented as of this encounter Results Not on filedocumented in this encounter Visit Diagnoses Diagnosis Angiomyolipoma of both kidneys - Primary Iron deficiency Other disorders of iron metabolism Status post nephrectomy Normocytic anemia Anemia, unspecified documented in this encounter Insurance Payer Benefit Plan / Subscriber ID Effective Phone Address T [facility] Group Dates TOBIN RUDD [id number] 2015-Caitlyn P O BOX Medic [facility] [place] [facility] [place] [address] MA[place]ED MEDICA[place] documented as of this encounter Advance Directives Name Relationship Healthcare Agent Communication Relationship Jada Morse [facility] Care Agent Darien Barnett Jr. Step Parent [facility] Care Agent (Mobile)
--- OUTSIDE RECORDS SUMMARY | 2020-10-01 14:41 | XMS REPORT | Summary of Care ---
:1990 Author Organization [facility] Address [address] [place] [address] Care Team Providers Name Role Phone Krysta Hurst MARLY Primary Care Provider Encounter Details Date Type Department Care Team Description 09/16/2020 Orders Only [facility] Doctor Unassigned, No 301 [facility] [place] [address] [address] [place] [address] Allergies No Known Allergiesdocumented as of this encounter (statuses as of 09/17/2020) Medications Medication Sig Dispensed Refills Start Date [...] as of this encounter (statuses as of 09/17/2020) Active Problems Problem Noted Date Papanicolaou smear [...] medication as prescribed. No bathing, swimming, operating [employer] s machinery, climbing ladders without supervision No [...] automatically from request for luz maria vel [id number] 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 Overview: Added automatically from request for luz maria vel [id number] Obesity (BMI 30-39.9) 09/27/2019 Mass of right kidney 09/26/2019 documented as of this encounter (statuses as of 09/17/2020) Immunizations Name Administration Dates Next Due Influenza [...] Visit Obstetrics & Gynecology Km Pearce MD [address] [place] [address] DR. Marie [place], [place] [address] [phone] 09/24/2020 Office Visit OB Satellites Chloe Boyle, DENTIST/OWNER [address] [place], [place] [address] [phone] 09/28/2020 Appointment Radiology Jesika Rodriguez NP [address] [place] [address] 77 555 09/28/2020 Appointment Radiology Jesika Rodriguez NP [address] [place] [address] 77 555 10/01/2020 Office Visit OB Satellites Res-Colpo/Leep, [facility] 11/30/2020 Appointment Radiology Jania Earl, DENTIST/OWNER 2[address] [facility] [address] [place] [address] [phone] 12/04/2020 Office Visit Oncology Clement Hassan Rp, M D [address] [place] [address] 555 09/09/2021 Office Visit OB Satellites AkinYadira robb C, CNP [address] [facility] [place] [address] Health Maintenance Due Date [...] of this encounter Implants Implanted Type Area Production Engine Repairer Device Shelf Model / Identifier Expiration Date Ser ial / Lot Mynx Right: Arrow 07/13/2021 [id number] / Implanted: Qty: 1 on 09/27/2019 at [facility] Groin [id number] / [id number] documented as of this encounter Procedures Procedure Name Priority Date/Time Associated Diagnosis Comme nts INSURANCE CORRESPONDENCE Routine 09/16/2020 12:01 AM .NET ARCHITECT documented in this encounter Results Not on filedocumented in this encounter Insurance Payer Benefit Plan / Subscriber ID Effective Phone Address T e Group Dates RUDD RUDD [id number] 2015-Prese P O BOX Medic [place] [id number] MA[place]ED MED[place] documented as of this encounter Advance Directives Name Relationship Healthcare Agent Communication Relationship Jada Barreraz Sibling Health Care Agent Darien Barnett Jr. Step Parent Second [facility] [phone] Care Agent (Mobile)[phone] (Work)
--- OUTSIDE RECORDS SUMMARY | 2020-10-01 14:41 | XMS REPORT | Summary of Care ---
:1990 Author Organization [facility] Address [address] [place] [address] Care Team Providers Name Role Phone Krysta Hurst [facility] Primary Care Provider Reason for Visit Reason Comments BACTERIAL VAGINOSIS YEAST INFECTION Encounter Details Date Type Department Care Team Description 09/10/2020 Telephone [facility]- Yadira Hurst TERIAL VAGINOSIS; Marcella Chaparro MARLY YEAST INFECTION 1108 [facility] [address] [facility] RY [facility] SARI [place], [place] [address] [phone] Allergies No Known Allergiesdocumented as of this [...] medication as prescribed. No bathing, swimming, operating [employer] machinery, climbing ladders without supervision No driving [...] automatically from request for luz maria vel [id number] 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 Overview: Added automatically from request for luz maria vel [id number] Obesity (BMI 30-39.9) 09/27/2019 Mass of right [...] Karla Bravo LVN - 09/10/2020 3:30 PM CDTMelidiego Pily Wall is a 30 year old female Informed patient of results and new orders, advised on good perineal hygiene. Patient stated her boyfriend had a question and gave him the phone. Boyfriend stated he was prescribed Acyclovir and wantedto know if that was causing patient's issues. Informed boyfriend Acyclovir is prescribed for herpes which patient was not diagnosed with at her last visit. Advised boyfriend to call his PCP who prescribed medication for further information. elephone Encounter - Yadira Hurst WHCNP - 09/10/2020 2:01 PM CDTPlease notify the patient her labs are indicative [...] Visit Obstetrics & Gynecology Km Pearce MD [address] [place] [address] 7[address] [phone] 09/28/2020 Appointment Radiology Jesika Rodriguez NP [address] [place] [address] 77 555 09/28/2020 Appointment Radiology Jesika Rodriguez NP [address] [place] [address] 77 555 10/01/2020 Office Visit OB Satellites Res-Colpo/Leep, [facility] 11/30/2020 Appointment Radiology Jania Earl, DIRECTOR [employer] [address] [facility] [address] [place] [address] [phone] 12/04/2020 Office Visit Oncology Clement Hassan Rp, M D [address] [place] [address] 77 555 09/09/2021 Office Visit OB Satellites [place], Yadira Chaparro, WHCNP [address] [address] [address] [phone] Health Maintenance Due Date Last Done Comments [...] of this encounter Implants Implanted Type Area Mathematician Device Shelf Model / Identifier Expiration Date Ser ial / Lot Mynx Right: Arrow 07/13/2021 [id number] / Implanted: Qty: 1 on 09/27/2019 at [facility] Groin [id number] / [id number] documented as of this encounter Results Not on filedocumented in this encounter Visit Diagnoses Diagnosis BV (bacterial vaginosis) - Primary Vaginitis and vulvovaginitis, unspecifie d Vaginal yeast infection Candidiasis of vulva and vagina documented in this encounter Insurance Payer Benefit Plan / Subscriber ID Effective Phone Address T [facility] Group Dates TOBIN RUDD [id number] 2015-Caitlyn P O BOX Medic [place] [id number] MA[place] documented as of this encounter Advance Directives Name Relationship Healthcare Agent Communication Relationship Jada Morse Sibling Health Care Agent Darien Barnett Jr. Step Parent [facility] [phone] Care Agent (Mobile)
--- OUTSIDE RECORDS SUMMARY | 2020-10-01 14:41 | XMS REPORT ---
:1990 Author Organization [facility] Address [address] 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 Problem BCP ( control Z30.011 Active 26316062 pills) initiation Problem Uses control Z30.9 Active 624671060 Problem 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 431446322 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 63245777 kidney Problem test Z32.01 Active 402356491 performed, confirmed 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 Problem Back pain M54.9 Active 160007345 Problem Onychomycosis B35.1 Active 367042497 Problem Panic attacks F41.0 Active 337165614 Problem Seasonal allergies J30.2 Active 906007617 Problem Exposure to Z20.2 Active 240371408 sexually transmitted disease (STD) ALLERGIES No Known Allergies ENCOUNTERS from 1990 to 2020-09-20 Encounter Location Date Provider Diagnosis [facility] [address] [place] [facility] Sep, Shantelle [place]RIST[place] on Pap smear of Family Medicine [address] [place], cervix R87.612 ; [place] [address] female B97.7 ; control chromosomal disorders counselor ing Z30.09 ; Tuberous scle rosis Q85.1 ; Hematur ia, unspecified R31 .9 ; Uses control Z 78.9 ; Gastroesophagea l reflux disease without esophagitis K21 .9 and Proteinuria, un specified type R80.9 IMMUNIZATIONS Vaccine Route Administration Date Status Afluria [...] No Information VITAL SIGNS Height 60.00 in Sep, Weight 178.8 lbs Sep, Temperature 98.0 degrees Fahrenheit Sep, BMI 34.92 kg/m2 Sep, Oximetry 98 % Sep, Respiratory Rate 16 /min Sep, Blood pressure systolic 139 mm Hg Sep, Blood pressure diastolic 88 mm Hg Sep, MEDICATIONS Medication SIG (Take, Route, Frequency, Start Date End Date Status Duration) Afinitor 5 MG 1 tablet Orally Once a day Unknown Ondansetron HCl 4 MG as directed Orally one tablet Active by mouth every 4 hrs Xulane 150-35 MCG/24HR 1 patch to skin off 1 week Aug, Active then repeat on the same day every week Transdermal for 21 day(s) Magnesium Oxide 400 MG 1 tablet as needed for leg Active cramps Orally Once a day for 30 Cetirizine HCl 10 MG take 1 tablet by mouth every Active day as needed for allergies Orally Once a day for 90 days Gianvi 3-0.02 MG 1 tablet Orally Once a day Active for 28 day(s) Clonazepam 0.5 MG 1 tablet on the tongue and 16 Oct, 2019 Active allow to dissolve as needed for acute panic attacks Orally Once a day for 20 days Quetiapine Fumarate 50 MG TAKE 1 TABLET BY MOUTH AT Active BEDTIME for 30 Xulane 150-35 MCG/24HR 1 patch to skin off 1 week Aug, Active then repeat on the same day every week Transdermal Lamictal 100 MG 1 tablet Orally Twice a day Active for 90 days Lexapro 20 MG 1 tablet Orally Once a day Active for 90 days PROCEDURES No Information RESULTS No Results REASON FOR VISIT Follow up , anxiety, ocp, boyfriend dx with herpes, HPV LGSIL MEDICAL (GENERAL) HISTORY Type Description Date Medical [...] No Information ASSESSMENTS Encounter Date Diagnosis Notes Sep, Hematuria, unspecified (ICD-10 - R31.9) Sep, Tuberous sclerosis (ICD-10 - Q85.1) Sep, Gastroesophageal reflux disease without esophagitis (ICD-10 - K21.9) Sep, Uses control (ICD-10 - Z78.9) Sep, LGSIL on Pap smear of cervix (ICD-10 - R 87.612) Sep, control counseling (ICD-10 - Z30.0 9) Sep, 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) Sep, Proteinuria, unspecified type (ICD-10 - R80.9) PLAN OF TREATMENT Medication Medication Name Sig Start Date Stop Date Lamictal 100 MG 1 tablet Orally Twice a day for 90 days Xulane 150-35 MCG/24HR 1 patch to skin off 1 week then repeat Aug, on the same day every week Transdermal Gianvi 3-0.02 MG 1 tablet Orally Once a day for 28 day(s) Treatment Notes Assessment Notes Clinical Notes LGSIL on Pap smear of cervix Patient needs to follow-up with [facility] women's clinic gynecology for colposcopy per records HPV in female Discussed with the patient importance of following up with women's clinic gas regulator repairer helper regarding abnormal Pap smear and HPV positive. control counseling use protection to avoid unwanted pregnancies and stds. pt wanting to get referral for tubal ligation to prevent future pregnancies Tuberous sclerosis monitor electrolytes and kidney function.continue f/u with neurologist and kidney specialist adhere to medications. Hematuria, unspecified need to f/u with coloring room worker and urologist Gastroesophageal reflux disease Gerd- avoid trigger foods without esophagitis including spicy, oily, carbonated drinks, citrus. Do not lay down immediately after eating-wait at least 2 hours, elevate pillow. Eat smaller meals and weight loss recommended for obese patients. Avoid wearing tight clothing. Treatment Notes Test Name Order Date CBC with Automated Diff 2020-09-20 Comprehensive Metabolic Panel 2020-09-20 Magnesium 2020-09-20 Next Appt Details keep October appt Reason: Provider Name:Shantelle Bates, 2020-10-22 11:0 0:00 AM, [address], [place], [address], Insurance Providers Payer Name Payer Payer Insured Patient Coverage Coverage End Address Phone Name Relationship to Start Date Fede e Insured TOBIN [phone] Henrietta Wall [address] [address]
--- OUTSIDE RECORDS SUMMARY | 2020-10-01 14:41 | XMS REPORT ---
:1990 Author Organization [facility] Address [address] [place], [facility] [address] [place] [address] Care Team Providers Name Role Phone Bates Unavailable [phone] PROBLEMS Type Condition ICD9-CM [id number] Onset Condition SNOMED Code Notes Code Code Dates Status Problem Insomnia G47.00 Active 377531096 Problem Seizure disorder G40.909 Active 928271932 Problem Angiomyolipoma of D30.02 Active 69782479347864 06 left kidney Problem Obesity E66.9 Active 349628531 Problem Seizures R56.9 Active 71088397 Problem Depression with F41.8 Active 842753118 anxiety Problem Gastroesophageal K21.9 Active 473137705 reflux disease without esophagitis Problem Moderate mental F71 Active 16925990 retardation Problem Pornography F66 Active 59849117 addiction Problem BCP ( control Z30.011 Active 00539524 pills) initiation Problem Uses control Z30.9 Active 842921510 Problem 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 456556414 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 35557427 kidney Problem test Z32.01 Active 484047143 performed, confirmed 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 [address], [place] [address] IMMUNIZATIONS Vaccine Route Administration Date Status Afluria [...] No information MEDICATIONS Medication SIG (Take, Route, Notes Start Date End Date Status Frequency, Duration) Afinitor 5 MG 1 tablet Orally Once a Unknown day Ondansetron HCl 4 MG as directed Orally one Active tablet by mouth every 4 hrs Xulane 150-35 [...] 3-0.02 MG 1 tablet Orally Once a Active day for 28 day(s) Clonazepam 0.5 MG 1 tablet on the tongue Oct, Active and allow to dissolve as needed for acute panic attacks Orally Once a day for 20 days Quetiapine Fumarate 50 MG TAKE 1 TABLET BY MOUTH Active AT BEDTIME for 30 Xulane 150-35 MCG/24HR 1 patch to skin off Aug, Active week then repeat on the same day every week Transdermal Lamictal 100 MG 1 tablet Orally Twice a Active day for 90 days Lexapro 20 MG 1 tablet Orally Once a Active day for 90 days PROCEDURES No Information RESULTS No Results REASON FOR VISIT need to f/u with [facility] women''s clinic MEDICAL (GENERAL) HISTORY Type Description Date Medical [...] Orally Once a day for 28 day(s) Next Appt Details Provider Name:Shantelle Bates, 2020-10-22 11:0 0:00 AM, [address], [place], [address], Insurance Providers Payer Name Payer Payer Insured Patient Coverage Coverage End Address Phone Name Relationship to Start Date Fede e Insured TOBIN [phone] Henrietta Wall [address] [address]
--- OUTSIDE RECORDS SUMMARY | 2020-10-01 14:42 | XMS REPORT | Summary of Care ---
:1990 Author Organization [facility] Address [address] [place] [address] Care Team Providers Name Role Phone Corrine Bates Primary Care Provider Reason for Visit Reason Comments Infusion Therapy (L4) Infed (ENRIQUE) Status Reason Specialty Diagnoses / Referred By Contact Refe rred To Procedures Contact Closed Infusion Therapy Diagnoses Angiomyolipoma of both kidneys Iron deficiency Status post nephrectomy Normocytic anemia Jesika Rodriguez NP Procedures CONSULT/REFERRAL AMB INFUSION THERAPY Preferred location: [address] [address] Phone: Encounter Details Date Type Department Care Team Description 09/29/[address] [facility] Infusion Jesika Rodriguez NP [address] [place] [address] Iron deficiency Center, [place] 2, [place] Adult Infusion Nurse anemia, unspecified [place] iron deficiency [address] [facility] anemia typ e (Primary South Dx) [place] [phone] Allergies No Known Allergiesdocumented as of this encounter (statuses as of 09/29/2020) Medications Medication Sig Dispensed Refills Start End [...] needed for Pain abdominal pain (scale 4-6). Everolimus Take 1 tablet by [...] 0 Active VITAMIN B-12, ORAL mouth daily. acetaminophen Take 2 tablets 60 tablet 1 09/29/20 D iscontinued (TYLENOL) 325 mg by mouth every 6 0 20 (Patient tabletIndications: (six) hours as Reported) Angiomyolipoma of needed for Pain both kidneys (scale 4-6). fluconazole 150 mg Take 1 tablet by 2 tablet 0 09/13 Discontinued tabletIndications: mouth now, and 0 20 (Patient Candidiasis of take 1 tablet by Reported) vulva and vagina mouth in 1 week. documented as of this encounter (statuses as of 09/29/2020) Active Problems Problem Noted Date Papanicolaou smear [...] medication as prescribed. No bathing, swimming, operating [employer] machinery, climbing ladders without supervision No driving [...] automatically from request for luz maria crowder [id number] 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 Overview: Added automatically from request for luz maria crowder [id number] Obesity (BMI 30-39.9) 09/27/2019 Mass of right kidney 09/26/2019 documented as of this encounter (statuses as of 09/29/2020) Immunizations Name Administration Dates Next Due Influenza [...] been in contact with No / Unsure 09/29/2020 8:34 AM DIRECTOR OF SUSTAINABILITY PROGRAMS someone who was confirmed or suspected to have Coronavirus / COVID-19? documented as of this encounter Last Filed Vital Signs Vital Sign Reading Time Taken Comments Blood Pressure 123/80 09/29/2020 8:39 AM DIRECTOR OF SUSTAINABILITY PROGRAMS Pulse 80 09/29/2020 8:39 AM DIRECTOR OF SUSTAINABILITY PROGRAMS Temperature 36.4 C (97.6 F) 09/29/2020 8:39 AM DIRECTOR OF SUSTAINABILITY PROGRAMS Respiratory Rate - - Oxygen Saturation 98% 09/29/2020 8:39 AM DIRECTOR OF SUSTAINABILITY PROGRAMS Inhaled Oxygen Concentration - - Weight 80.4 kg (177 lb 3.2 oz) 09/29/2020 8:39 AM DIRECTOR OF SUSTAINABILITY PROGRAMS Height 154.9 cm (5' 1") 09/29/2020 8:39 AM DIRECTOR OF SUSTAINABILITY PROGRAMS Body Mass Index 33.48 09/29/2020 8:39 AM DIRECTOR OF SUSTAINABILITY PROGRAMS documented in this encounter Progress Notes Dolly Mckinnon RN - 09/29/2020 8:30 AM [id number] Complete with infusion. Pt tolerated the infusion without difficulties. Left stable with S.O. Gabbi Lebron RN - 09/29/2020 8:30 AM CST Infusion Therapy Note ALLERGIES: Patient has no known allergies. Diagnosis (Primary)Iron deficiency Anemia Time Out Patient identified by Name and Infusion verified with PATIENT IV Therapy Type:Peripheral Site Location:left hand Blood return present:yes I.V. Flush:0.9 NS 10cc x 2 vial(s) I.V. Patent:yes I.V. Fluids:None During administration:burning: no, redness: no and swelling: no Comments: Patient tolerated test dose well, will start official dose at 10:55 AM HYDRATION/THERAPEUTIC DRUG DOSE ROUTE START TIME STOP TIME iron dextran (INFED) 25 mg in NaCl 0.9% (NS) 25MG IV 9:37AM 9:55AM iron dextran (INFED) 1,000 mg in NaCl 0.9% (NS) 1000MG IV 10:57am Comments: Patient is still reeving infusion and care is being handed over to Dolly Mckinnon RN for theremainder of the infusion which is estimated 33 minutes left. Patient sleeping at this time. Gabbi Jackson RN Dolly Bridges RN - 09/29/2020 8:30 AM CST Order Questions Question Answer Comment Requesting consult or referral? Consult Reason for consult - please give recommendation or opinion on: iron deficiency anemia Preferred location [facility] Order Information Date and Time Department Ordering/Authorizing 09/16/2020 12:[address] [facility] Hematology-Oncology - Jesika Pickard NP Order Information Order Date/Time Release Date/Time Start Date/Time End Date/Time 09/16/20 12:51 PM None 09/16/2020 None Order Details Frequency Duration Priority Order Class None None ENRIQUE Internal referral Consult Order Info ID Description Priority Start Date [id number] CONSULT/REFERRAL AMB INFUSION THERAPY Preferred location: [facility] 09/16/2020 Provider Specialty Referred to Order History Outpatient Date/Time Action Taken User Additional Information 09/16/20 1251 Sign Jesika Rodriguez NP Comments Drug to be infused: 25mg Infed in 100ml NS, IVPB testing dose x1. If well tolerated, please administer 1gm Infed in 500ml NS, IV infusion over 4 hours. Frequency: once Please notify provider in case of any adverse reaction or side effects. Emergency Medications: Benadryl injection 50mg, Epinephrine 0.3mg/0.3ml, Solu- medrol injection 125mg, albuterol (proventil) 2.5mg/3ml(0.083) nebulizer solution 2.5mg, atropine injection 0.25mg Associated Diagnoses ICD-10-CM ICD-9-CM Angiomyolipoma of both kidneys - Primary D17.71 214.3 Iron deficiency E61.1 280.9 Status post nephrectomy Z90.5 V45.73 Normocytic anemia D64.9 285.9 Provider Information Ordering User Ordering Provider Authorizing Provider Jesika Rodriguez NP Chen, Lili, NP Chen, Lili, NP PCP Yadira Hurst WHCNP documented in this encounter Plan of Treatment Date Type Specialty Care Team Description 10/02/2020 Appointment Radiology Jesika Rodriguez NP [address] [place] [address] [phone] Clement Hassan Rp, MD [address] [place] [address] [phone] 10/02/2020 Appointment Radiology Jesika Rodriguez, JR [address] [phone] 10/20/2020 Office Visit Obstetrics & Gynecology Myra Jones MD [address] [place] [address] Dr. Newman [address] [place] [phone] 12/04/2020 Office Visit Oncology Clement Hassan Rp, M D [address] [place], [place] [address] 09/09/2021 Office Visit OB Satellites [facility] Hurst, [facility] [address] [place], [place] [address] Health Maintenance Due Date [...] of this encounter Implants Implanted Type Area High Value Associate Device Shelf Model / Identifier Expiration Date Ser ial / Lot Mynx Right: Arrow 07/13/2021 [id number] / Implanted: Qty: 1 on 09/27/2019 at [facility] Groin [id number] / [id number] documented as of this encounter Results Not on filedocumented in this encounter Visit Diagnoses Diagnosis Iron deficiency anemia, unspecified iron deficiency anemia type - Primary documented in this encounter Administered Medications Medication Order MAR Action Action Date Dose Rate Site iron dextran (INFED) 1,000 mg New Bag 09/29/2020 10:57 AM DIRECTOR OF SUSTAINABILITY PROGRAMS 1,00 0 mg in NaCl 0.9% (NS) 500 mL IV infusion 1,000 mg, IV Infusion, ONCE, 1 dose, Mon09/29/20 at 0845, 500 mL iron dextran (INFED) 25 mg in NaCl 0.9% (NS) Given 9:37 AM DIRECTOR OF SUSTAINABILITY PROGRAMS 25 mg 100 mL IV piggyback 25 mg, IV Piggyback, ONCE, 1 dose, Mon09/29/20 at 0845, 100 mL documented in this encounter Insurance Payer Benefit Plan / Subscriber ID Effective Phone Address T e Group Dates TOBIN RUDD [id number] [address] [place] [id number] MANAG[place] MEDICAID [place], [place] documented as of this encounter Advance Directives Name Relationship Healthcare Agent Communication Relationship Jada [facility] Health Care Agent Darien Barnett Jr. Step Parent [facility] Care Agent (Mobile)
--- NOTE | 2020-10-01 15:34 | RAD REPORT ---
EXAM DESCRIPTION: RAD - Hand Left 3 View - 10/01/2020 2:58 pm CLINICAL HISTORY: thumb pain Pain and swelling COMPARISON: No comparisons FINDINGS: Small fracture is seen involving the base of the proximal phalanx of the thumb, compatible gamekeeper's thumb.
--- NOTE | 2020-10-01 15:44 | EDPHYS ---
Physician Documentation [facility] Name: Kitty Wall Age: 30 yrs Sex: Female : 1990 Arrival Date: 10/01/2020 Time: 13:49 Bed 20 Private MD: Shantelle Bates ED Physician Imtiaz Beverly HPI: 10/01 14:33 This 30 yrs old Female presents to ER via Unassigned with complaints of Finger jmm Injury, Finger Pain. 14:33 The patient or guardian reports injury, pain. Onset: The symptoms/episode jmm began/occurred acutely, just prior to arrival. Modifying factors: The symptoms are alleviated by holding still, the symptoms are aggravated by movement. Associated signs and symptoms: Pertinent negatives: cyanosis distally, decreased sensation distally, fever. This is a 30 year old male with no chronic medical conditions that presents to the ED with complaints of left thumb pain after hyperextending the thumb. Patient states hearing a pop. Pain mainly at the base of the thumb. Patient denies other injury. . 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 - Social history:: Smoking status: Patient/guardian denies using. ROS: 14:33 Constitutional: Negative for fever, chills, and weight loss, Cardiovascular: Negative jmm for chest pain, palpitations, and edema, Respiratory: Negative for shortness of breath, cough, wheezing, and pleuritic chest pain. 14:33 MS/extremity: Positive for pain. 14:33 All other systems are negative. Exam: 14:33 Constitutional: This is a well developed, well nourished patient who is awake, alert, jmm and in no acute distress. Head/Face: atraumatic. Eyes: EOMI, no conjunctival erythema appreciated ENT: Moist Mucus Membranes Neck: Trachea midline, Supple Chest/axilla: Normal chest wall appearance and motion. Cardiovascular: Regular rate and rhythm. No edema appreciated Respiratory: Normal respirations, no respiratory distress appreciated Abdomen/GI: Non distended, soft Back: Normal ROM Skin: General appearance color normal 14:33 Musculoskeletal/extremity: pain on palpation at the base of the left thumb, < 2 sec dist cap refill, full radial pulse, no snuff box tenderness, NVI. 14:33 Skin: Appearance: Color: normal in color. 14:33 Neuro: Orientation: is normal, Mentation: is normal, Memory: is normal. 14:33 Psych: Behavior/mood is pleasant, cooperative. Vital Signs: 14:35 BP 121 / 88; Pulse 85; Resp 16; Temp 98.4; Pulse Ox 99% on R/A; Weight 77.11 kg (R); iw Height 5 ft. 1 in. (154.94 cm); Pain 10/10; 16:23 BP 118 / 88; Pulse 72; Resp 16; Pulse Ox 99% ; rb3 14:35 Body Mass Index 32.12 (77.11 kg, 154.94 cm) iw MDM: 14:50 Patient medically screened. [facility] 15:37 Data reviewed: vital signs, nurses notes. Counseling: I had a detailed discussion with [facility] the patient and/or guardian regarding: the historical points, exam findings, and any diagnostic results supporting the discharge/admit diagnosis, radiology results, the need for outpatient follow up, to return to the emergency department if symptoms worsen or persist or if there are any questions or concerns that arise at home. ED course: Xray reveals fracture. Splinted with thumb spica. Patient advised to follow up with hand/ortho for reevaluation. . 10/01 14:33 Order name: Hand Left 3 View XRAY; Complete Time: 15:36 [facility] 10/01 14:33 Order name: Thumb Spica Splint: velcro; Complete Time: 16:24 [facility] Administered Medications: No medications were administered Disposition: 10/02 06:04 Co-signature as Attending Physician, Imtiaz Beverly MD I agree with the assessment and rayshawn plan of care. Disposition: 10/01/20 15:44 Discharged to Home. Impression: Sprain of metacarpophalangeal joint of thumb, Phalanx Fracture. - Condition is Stable. - Discharge Instructions: Finger Fracture, Thumb Sprain. - Medication Reconciliation Form, Thank You Letter, Antibiotic Education, Prescription Opioid Use form. - Follow up: Jose Guadalupe Rock MD; When: 2 - 3 days; Reason: Recheck today's complaints, Continuance of care, Re-evaluation by your physician. Signatures: Dispatcher [employer] EDImtiaz Cervantes MD MD cha Mickail, Joel, PA PA jmm Barber, Rebecca, RN RN rb3 Corrections: (The following items were deleted from the chart) 10/01 16:26 15:44 10/01/2020 15:44 Discharged to Home. Impression: Sprain of metacarpophalangeal rb3 joint of thumb; Phalanx Fracture. Condition is Stable. Forms are Medication Reconciliation Form, Thank You Letter, Antibiotic Education, Prescription Opioid Use. Follow up: Jose Guadalupe Rock; When: 2 - 3 days; Reason: Recheck today's complaints, Continuance of care, Re-evaluation by your physician. tim
--- NOTE | 2020-10-01 15:44 | ER ---
Nurse's Notes [facility] Name: Kitty Wall Age: 30 yrs Sex: Female : 1990 Arrival Date: 10/01/2020 Time: 13:49 Bed 20 Private MD: Shantelle Bates Diagnosis: Sprain of metacarpophalangeal joint of thumb;Phalanx Fracture Presentation: 10/01 14:31 Chief complaint: Patient states: i pulled my thumb down yesterday and now i cant move iw it. Coronavirus screen: Client denies travel out of the [place] in the last 14 days. Ebola Screen: No symptoms or risks identified at this time. Initial Sepsis Screen: Does the patient meet any 2 criteria? No. Patient's initial sepsis screen is negative. Does the patient have a suspected source of infection? No. Patient's initial sepsis screen is negative. Risk Assessment: Do you want to hurt yourself or someone else? Patient reports no desire to harm self or others. 14:31 Method Of Arrival: Ambulatory iw 14:31 Acuity: GULSHAN 4 iw 14:50 Onset of symptoms was September 30, 2020. rb3 Triage Assessment: 14:50 Injury Description: She was wrestling yesterday when she injured her left thumb and rb3 reports hearing a pop. 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 - Social history:: Smoking status: Patient/guardian denies using. Screenin:50 Abuse screen: Denies threats or abuse. Nutritional screening: No deficits noted. rb3 Tuberculosis screening: No symptoms or risk factors identified. Fall Risk None identified. Assessment: 14:50 General: Appears in no apparent distress. comfortable, Behavior is calm, cooperative. rb3 General: Pt. reports hearing a pop when it happened. Pain: Complains of pain in left thumb Pain currently is 10 out of 10 on a pain scale. Neuro: Level of Consciousness is awake, alert, obeys commands, Oriented to person, place, time, situation. Cardiovascular: Capillary refill < 3 seconds Patient's skin is warm and dry. Respiratory: Airway is patent Respiratory effort is even, unlabored, Respiratory pattern is regular, symmetrical. GI: No signs and/or symptoms were reported involving the gastrointestinal system. : No signs and/or symptoms were reported regarding the genitourinary system. Musculoskeletal: Range of motion: limited in left thumb. 15:50 Reassessment: Patient appears in no apparent distress at this time. No changes from rb3 previously documented assessment. 16:24 Reassessment: Norman, provider checked the splint before the pt. left. rb3 Vital Signs: 14:35 BP 121 / 88; Pulse 85; Resp 16; Temp 98.4; Pulse Ox 99% on R/A; Weight 77.11 kg (R); iw Height 5 ft. 1 in. (154.94 cm); Pain 10/10; 16:23 BP 118 / 88; Pulse 72; Resp 16; Pulse Ox 99% ; rb3 14:35 Body Mass Index 32.12 (77.11 kg, 154.94 cm) iw ED Course: 13:49 Patient arrived in ED. ag5 13:49 Shantelle Bates MD is Private Physician. ag5 14:30 [facility] m 14:30 Imtiaz Beverly MD is Attending Physician. jmm 14:35 Triage completed. iw 14:35 Arm band placed on right wrist. iw 14:50 Patient has correct armband on for positive identification. Bed in low position. Call rb3 light in reach. Side rails up X 1. Pulse ox on. NIBP on. 14:56 Greta De La Vega, RN is Primary Nurse. rb3 14:59 Hand Left 3 View XRAY In Process Unspecified. EDMS 15:42 Jose Guadalupe Rock MD is Referral Physician. [facility] 16:25 No provider procedures requiring assistance completed. Patient did not have IV access rb3 during this emergency room visit. Administered Medications: No medications were administered Outcome: 15:44 Discharge ordered by . jmm 16:25 Discharged to home ambulatory, with family. rb3 16:25 Condition: stable 16:25 Discharge instructions given to patient, Instructed on discharge instructions, follow up and referral plans. Demonstrated understanding of instructions, follow-up care, Prescriptions given X none 16:26 Patient left the ED. rb3 Signatures: Dispatcher [employer] Thuan Ocasio PA PA jmm Williams, Irene, RN RN Jerry Olivia sierra [place] Greta De La Vega RN RN rb3
[2020-10-02 03:02] VITALS: TEMP 98.4; O2SAT 99
[2020-10-02 03:05] VITALS: BP 118/88
== END 2020-10-01 16:26 | disposition home or self-care (01) ==
LOC: ER 13:48
PROC: 2W3HX1Z Immobilization of Left Thumb using Splint (ICD-10-PCS; principal; 2020-10-01)
DX: S62.512A Displaced fracture of proximal phalanx of left thumb, initial encounter for closed fracture (principal); S63.642A Sprain of metacarpophalangeal joint of left thumb, initial encounter; X58.XXXA Exposure to other specified factors, initial encounter; Y93.9 Activity, unspecified; Y92.9 Unspecified place or not applicable; F20.9 Schizophrenia, unspecified
CPT/HCPCS: 99283

== ENCOUNTER 2021-03-04 20:46 | Emergency (ER) | payer MEDICAID ==
--- OUTSIDE RECORDS SUMMARY | 2021-03-04 20:49 | XMS REPORT | Continuity of Care Document ---
:1990 Author Organization [facility] t Address [address] [place] [address] Care Team Providers Name Role Phone Adam DOUGHERTY Attending Clinician Gage Lopez MD Attending Clinician Yury OSMAN Attending Clinician Jeniffer OSMAN Attending Clinician Brian Higginbotham DO Attending Clinician Nurse, Women's [facility] Attending Clinician Unavailable Sonya HUERTA, Rp Attending Clinician Jennifer NORRIS Attending Clinician VALORIE Attending Clinician Unavailable CHRISTIAN Attending Clinician Unavailable ELVIRA Attending Clinician Unavailable Problems Condition Condition Condition Status Onset Resolution Last Treating Co mments Source Name Details Category Date Date Treatment Clinician Date 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 Clinician (SIG) Name Name Magnesium Magnesium 2019-0 2020- No Na Bates [address] [facility] Oxide [...] ty of Tablet Tablet 14:39: M.D. MOUTH [place] 34 DAILY Physici ans lamoTRIgine lamoTRIgine 2014-11 Yes ALONZO WAGNER Q0.5D TAKE 1 [facility] 100 MG Oral 100 MG Oral 0-13 CHRISTIAN TABLET ity of Tablet Tablet 00:00: M.D. TWICE [place] 00 DAILY Physici ans [place] Harrison Yes Na Bates [address] [facility] Cetirizine Cetirizine Yes Na Bates take [address] [facility] HCl HCl tablet by [facility] every day l as needed Outpati for ent allergies Clinics Lamictal Lamictal Yes [...] TABLET BY Mary kes - [facility] BED[facility] l [facility] ent [facility] Afinitor Afinitor Yes Na Bates [address] [facility] Pantoprazol Pantoprazol Yes Na Bates [address] [facility] Sodium e Sodium kes - [facility] Immunizations Ordered Filled Immunization Date Status Comments Sourc e Immunization Name Name Afluria single dose Afluria single dose 2019-08-[address] [facility] - 00:[facility]00 [facility] Flucelvax - single Flucelvax - single 2018-10-[address] [facility] - dose syringe dose syringe 00:00:00 [facility] Vital Signs Vital Name Observation Time Observation Value Comments Source BP Systolic 2018-05-01 10:10:00 109 mm[Hg] [facility] Physician s BP Diastolic 2018-05-01 10:10:00 76 mm[Hg] [facility] Physician s Height 2018-05-01 10:10:00 154 cm [facility] Physician s Weight 2018-05-01 10:10:00 67.7 kg [facility] Physician s Body Mass Index 2018-05-01 10:10:00 28.55 kg/m2 [facility] Temperature 2018-05-01 10:10:00 96.5 [degF] [facility] Physician s Heart Rate 2018-05-01 10:10:00 91 /min [facility] Physician s Head Circumference 2018-05-01 10:10:00 54.7 [facility] Procedure Date / Time Performing Clinician Source Performed EKG w/Rhythm Strip 2018-04-17 00:00:00 [facility] Physicians [QL] CBC (INCLUDES 2018-04-17 00:00:00 [facility] DIFF/PLT) Physicians [QL] CMP W/EGFR 2018-04-17 00:00[facility] [Q] EVEROLIMUS, BLOOD 2018-04-17 00:00:00 [facility] Physicians [QL] LIPID PANEL 2018-04-17 00:00:00 [facility] [QL] PHOSPHATE ( 2018-04-17 00:00:00 [facility] PHOSPHORUS) Physicians [[facility]] PTH, INTACT 2018-04-17 00:00:00 [facility] (WITHOUT CALCIUM) Physicians [QLH] LAMOTRIGINE 2018-04-17 00:00:00 [facility] MRI Brain w/wo contrast 2018-04-17 00:00:00 [facility] [address] Abdomen w/wo 2018-04-17 00:00:00 [facility] contrast 18040 Physicians Encounters Start End Encounter Admission Attending Care Care Encounter Source Date/Time Date/Time Type Type Clinicians Facility Department ID 2021-02-11 2021-02-11 [facility] [id number] 08:34:08 23:59:00 Encounter Terence Y HE[facility] [id number] CLINICS [id number] 2021-02-09 2021-02-09 Case Renato Lopez [facility] [id number] 00:00:00 00:00:00 Management Gage Y HEALTH [id number] CLINICS [id number] 2021-02-08 2021-02-08 Emergency [facility] [id number] 17:25:00 20:35:00 [facility] [id number] [facility] [id number] [facility] [id number] [address] ([facility]) 2021-02-04 2021-02-04 Telephone Fabiola Swift [facility] [id number] 00:00:00 00:00:00 Y HEALTH [id number] CLINICS [id number] 2021-02-02 2021-02-02 Patient Neftaly [facility] [id number] 00:00:00 00:00:00 Outreach Jamey PRIMARY [id number] [facility] 4.2.7.2.686 PAVILLION [id number] 2021-01-28 2021-01-28 Hospital Fabiola Swift [facility] [id number] 08:35:41 23:59:00 Encounter Y HEALTH [id number] [facility] [id number] [id number] 2021-01-27 2021-01-27 Nurse Nurse, Jade CAALEXANDRA [id number] 09:18:25 09:32:38 Visit [facility] [place] [id number] [facility] 4.2.7.2.686 Professio [id number] [facility] [address] [facility] 2021-01-22 2021-01-22 Office Sonya Nathenmikie WHITE [id number] 09:34:26 11:19:10 Visit Rp H [id number] [facility] [id number] [id number] 2020-10-23 2020-10-23 [facility] [id number] [facility] 2020-10-22 2020-10-22 [facility] [id number] [facility] 2020-10-22 2020-10-22 [facility] [id number] [facility] 2020-10-10 2020-10-10 Telephone Rodriguez Jesika WHITE [id number] 00:00:00 00:00:00 H [id number] [facility] [id number] 2020-09-19 2020-09-19 [facility] [id number] [facility] 2020-09-14 2020-09-14 [facility] [id number] [facility] 2020-09-03 2020-09-03 Outpatient [facility] [id number] [facility] 2020-09-01 2020-09-01 [facility] [id number] [facility] 2020-08-12 2020-08-12 [facility] [id number] [facility] 2020-08-11 2020-08-11 [facility] [id number] [facility] 2020-07-23 2020-07-23 [facility] [id number] 11:20:00 11:20:00 t FIXO s - [employer] [facility] Medicine Outpati ent Clinics 2020-05-11 2020-05-11 [facility] [id number] 16:25:00 16:25:00 t FIXO s [employer] [facility] Medicine Outpati ent Clinics 2020-05-01 2020-05-01 [facility] [id number] 13:06:00 13:06:00 t [place] [employer] [facility] Medicine Outpati ent Clinics 2020-04-23 2020-04-23 [facility] [id number] 14:25:00 14:25:00 t FIXO s - [employer] [facility] Medicine Outpati ent Clinics 2020-04-16 2020-04-16 [facility] [id number] 13:06:00 13:06:00 t [place] [employer] [facility] Medicine Outpati ent Clinics 2020-04-16 2020-04-16 [facility] [id number] [address] 10:40:00 10:40:00 t [place] [employer] [facility] Medicine Outpati ent Clinics 2020-04-13 2020-04-13 [facility] [id number] [address] 13:19:00 13:19:00 t [place] [employer] [facility] Medicine Outpati ent Clinics 2020-04-13 2020-04-13 [facility] [id number] 11:29:00 11:29:00 t [place] [employer] Luke s - Drive [facility] l Medicine Outpati ent Clinics 2020-01-15 2020-01-15 [facility] [id number] 12:20:00 12:20:00 t [place] [employer] s - Drive [facility] Medicine l Medicine Outpati ent Clinics 2020-01-08 2020-01-08 [facility] [id number] 08:53:00 08:53:00 t [place] [employer] Luke s - Drive [facility] l Medicine Outpati ent Clinics 2019-10-28 2019-10-28 [facility] [id number] 09:40:00 09:40:00 t [place] [email or web address] s - Drive [facility] Medicine l Medicine Outpati ent Clinics 2019-09-03 2019-09-03 [facility] [id number] 16:57:00 16:57:00 t [place] [email or web address] s - Drive [facility] Medicine l Medicine Outpati ent Clinics 2019-08-27 2019-08-27 [facility] [id number] 08:40:00 08:40:00 t [place] [email or web address] s - Drive [facility] Medicine l Medicine Outpati ent Clinics 2019-08-22 2019-08-22 [facility] [id number] 09:20:00 09:20:00 t [place]well [employer] s - Drive [facility] Medicine l Medicine Outpati ent Clinics 2019-08-05 2019-08-05 [facility] [id number] 16:00:00 16:00:00 t [place] [employer] s - Drive [facility] Medicine l Medicine Outpati ent Clinics 2019-03-01 2019-03-01 [facility] [id number] 09:40:00 09:40:00 t [place] Ot[place] [email or web address] s - Drive [facility] Medicine l Medicine Outpati ent Clinics 2019-01-25 2019-01-25 [facility] [id number] 09:30:00 09:30:00 t [place]well [email or web address] [facility] ent [facility] 2018-10-26 2018-10-26 [facility] [id number] 09:30:00 09:30:00 t [facility] ent [facility] 2018-07-27 2018-07-27 [facility] [id number] 10:15:00 10:15:00 t [facility] ent [facility] 2018-05-01 2018-05-01 [facility] [id number] Univers 09:15:00 09:15:00 t; ALFREDO, Division of it Emanuel M.D. [facility] Trace FUENTES M.D. [facility] 2018-05-01 2018-05-01 [facility] [id number] Univers 08:45:00 08:45:00 t; ALONZO GONZALES, Division of ity of ALONZO WAGNER M.D. [facility] [employer] Physici ans 2018-04-27 2018-04-27 [facility] [id number] 10:15:00 10:15:00 t [facility] ent [facility] 2017-05-08 2017-05-08 CHRISTINE Dorman [facility] [id number] Univers 09:00:00 09:00:00 t; Meghan FUENTES M.D. [place] Bernice FUENTES M.D. ans 2017-02-28 2017-02-28 CHRISTINE Dorman [facility] [id number] Univers 09:45:00 09:45:00 t; Meghan FUENTES M.D. [place] Bernice UFENTES M.D. [facility] 2017-02-28 2017-02-28 CHRISTINE Cowan [facility] [id number] Univers 09:45:00 09:45:00 t; ALONZO GONZALES, i ty of Reji WOODS M.D. Physici ans 2017-02-28 2017-02-28 CHRISTINE Hair [facility] [id number] Univers 09:30:00 09:30:00 t; Reji ASIF of [place], [place] Reji ASIF Physi ci ans Results Test Description Test Time Test Comments Results Result Comments Source [O] Urine Dipstick (In Office) 2018-05-01 10:25:00 Test Item Value Reference Range Interpretation Comme nts LEUKOCYTES (test code = LEUKOCYTES) Negative N NITRITE; Normal (test code = 15353-5) Negative N UROBILINOGEN; Normal (test code = 19482-7) 0.2 N PROTEIN (test code = 43291-4) 30 pH (test code = pH) 7.0 N URINE BLOOD (test code = 33399-3) Trace-Intact SPECIFIC GRAVITY; Normal (test code = 2965-2) 1.020 N KETONES; Normal (test code = 50613-9) Negative N BILIRUBIN; Normal (test code = 86283-5) Neative N GLUCOSE; Normal (test code = 1547-9) Negative N [facility] Physicians
[2021-03-04 22:32] LABS: Urine Blood 1+ (Negative); Urine Glucose Negative (Negative); Urine Protein 3+ (Negative); Urine Specific Gravity >=1.030 (1.005-1.030)
[2021-03-04 22:33] LABS: Urine Specific Gravity/Preg >1.030 (1.005-1.030)
[2021-03-04 22:45] LABS: Absolute Lymphocytes (CBC) 3.2 K/uL (0.7-4.9); Basophils % 0.7 % (0-1.3); Hematocrit 41.4 % (36.0-45.0); Lymphocytes % 27.7 % (15.3-44.8); MPV 8.3 fL (7.6-11.3); RBC Red Blood Cell Count 4.47 M/uL (3.86-4.86)
[2021-03-04 23:04] LABS: ALT/SGPT 22 U/L (12-78); AST/SGOT 15 U/L (15-37); Albumin 3.9 g/dL (3.4-5.0); Alkaline Phosphatase 117 U/L (45-117); BUN Blood Urea Nitrogen 22 mg/dL (7-18); Bicarbonate 21 mmol/L (21-32); Bilirubin Direct < 0.1 mg/dL (0-0.2); Bilirubin Total 0.2 mg/dL (0.2-1.0); Glucose Level 86 mg/dL (74-106); Lipase 187 U/L (73-393); Protein, Total 9.2 g/dL (6.4-8.2); Sodium Level 140 mmol/L (136-145)
[2021-03-05] MEDS ORDERED: FENTANYL CITR 100 MCG/2 ML ONE (00:09)
[2021-03-05] MEDS ORDERED: NA CHLORIDE 0.9% 1,000 ML ONE (00:09)
--- NOTE | 2021-03-05 00:52 | EDPHYS ---
Physician Documentation [facility] Name: Kitty Wall Age: 30 yrs Sex: Female : 1990 Arrival Date: 03/04/2021 Time: 20:47 Bed 4 Private MD: ED Physician Shantanu Ferguson HPI: 03/04 22:20 This 30 yrs old Female presents to ER via Ambulatory with complaints of cp Constipation, Bloody Stools. 22:20 Onset: The symptoms/episode began/occurred today. cp 22:20 Associated signs and symptoms: Pertinent positives: left flank pain, Pertinent cp negatives: fever. Patient reports 2 episodes of blood with bowel movements today. Patient admits bowel movements were hard and being constipated. denies fever, denies diarrhea. Patient also reports noticing blood when wiping but denies any vaginal bleeding. 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 - Social history:: Smoking status: Patient denies any tobacco usage or history of. Patient/guardian denies using alcohol, street drugs. ROS: 22:55 Constitutional: Negative for body aches, chills, fever, poor PO intake. cp 22:55 Eyes: Negative for injury, pain, redness, and discharge. cp 22:55 ENT: Negative for ear pain, sore throat, difficulty swallowing, difficulty handling secretions. 22:55 Cardiovascular: Negative for chest pain. 22:55 Respiratory: Negative for cough, shortness of breath, wheezing. 22:55 Abdomen/GI: Positive for constipation, rectal bleeding, Negative for vomiting, diarrhea, anorexia. 22:55 Back: Positive for flank pain, on the left. 22:55 : Negative for urinary symptoms. 22:55 Neuro: Negative for altered mental status, headache, weakness. 22:55 All other systems are negative. Exam: 23:00 Constitutional: The patient appears in no acute distress, alert, awake, non-toxic, well cp developed, well nourished. 23:00 Head/Face: Normocephalic, atraumatic. cp 23:00 Eyes: Periorbital structures: appear normal, Conjunctiva: normal, no exudate, no injection, Sclera: no appreciated abnormality, Lids and lashes: appear normal, bilaterally. 23:00 ENT: External ear(s): are unremarkable, Nose: is normal, Mouth: Lips: moist, Oral mucosa: moist, Posterior pharynx: Airway: no evidence of obstruction, patent. 23:00 Chest/axilla: Inspection: normal, Palpation: is normal, no crepitus, no tenderness. 23:00 Cardiovascular: Rate: tachycardic, Rhythm: regular. 23:00 Respiratory: the patient does not display signs of respiratory distress, Respirations: normal, no use of accessory muscles, no retractions, labored breathing, is not present, Breath sounds: are clear throughout, no decreased breath sounds, no stridor, no wheezing. 23:00 Abdomen/GI: Inspection: abdomen appears normal, Bowel sounds: active, all quadrants, Palpation: soft, in all quadrants, moderate abdominal tenderness, in the posterior aspect of left lateral abdomen, anterior aspect of left lateral abdomen and left lower quadrant, rebound tenderness, is not appreciated, involuntary guarding, is not appreciated. 23:00 Skin: no rash present. Vital Signs: 21:11 BP 132 / 80; Pulse 103; Resp 16; Temp 97.3; Pulse Ox 100% on R/A; Weight 65.32 kg (R); jb4 Height 5 ft. 1 in. (154.94 cm) (R); Pain 10/10; 23:18 BP 111 / 76; Pulse 95; Resp 16; Pulse Ox 99% ; rr5 03/05 00:00 BP 121 / 70; Pulse 99; Resp 15; Pulse Ox 98% ; rr5 01:18 BP 115 / 70; Pulse 90; Resp 16; Pulse Ox 99% ; rr5 03/04 21:11 Body Mass Index 27.21 (65.32 kg, 154.94 cm) jb4 MDM: 03/04 21:58 Patient medically screened. cp 03/05 00:50 Data reviewed: vital signs, nurses notes, lab test result(s), radiologic studies, CT cp scan. 00:50 Differential diagnosis: diverticulitis, hemorrhoids, colitis, anemia, anal fissure, cp uti. Counseling: I had a detailed discussion with the patient and/or guardian regarding: the historical points, exam findings, and any diagnostic results supporting the discharge/admit diagnosis, lab results, radiology results, to return to the emergency department if symptoms worsen or persist or if there are any questions or concerns that arise at home. Response to treatment: the patient's symptoms have markedly improved after treatment, and as a result, I will discharge patient. 03/04 22:10 Order name: Basic Metabolic Panel rr 03/04 22:10 Order name: CBC with Diff rr 03/04 22:10 Order name: Hepatic Function rr 03/04 22:10 Order name: Lipase rr 03/04 22:11 Order name: Basic Metabolic Panel; Complete Time: 23:39 EDMS 03/04 23:39 Interpretation: Normal except: CL 110; BUN 22; CRE 1.40; GFR 44. cp 03/04 22:11 Order name: CBC with Automated Diff; Complete Time: 23:39 EDMS 03/04 23:39 Interpretation: Normal except: WBC 11.50; MCV 92.7; PLT 457. cp 03/04 22:11 Order name: Liver (Hepatic) Function; Complete Time: 23:39 EDMS 03/04 22:11 Order name: Lipase; Complete Time: 23:39 EDAZ 03/04 22:31 Order name: Urine --Ancillary (enter results); Complete Time: 23:39 tt3 03/04 22:32 Order name: Urine Dipstick-Ancillary EDAZ 03/04 22:33 Order name: CT Abd/Pelvis - IV Contrast Only cp 03/04 22:10 Order name: IV Saline Lock; Complete Time: 22:31 rr5 03/04 22:10 Order name: Labs collected and sent; Complete Time: 22:31 rr5 03/04 22:10 Order name: Urine Dipstick-Ancillary (obtain specimen); Complete Time: 22:31 rr5 03/04 22:10 Order name: Urine Test (obtain specimen); Complete Time: 22:31 rr5 Administered Medications: 03/04 23:40 CANCELLED (Physician Discretion): TORadol - (ketorolac) 15 mg IVP once cp 23:56 Drug: NS 0.9% 1000 ml Route: IV; Rate: 1 bolus; Site: right antecubital; rr5 03/05 01:00 Follow up: Response: No adverse reaction; IV Status: Order to discontinue infusion; IV rr5 Intake: 500ml 03/04 23:56 Drug: fentaNYL (PF) 25 mcg {Note: rass 0.} Route: IVP; Site: right antecubital; rr5 03/05 01:00 Follow up: Response: No adverse reaction; RASS: Alert and Calm (0) rr5 Disposition: 02:58 Co-signature as Attending Physician, Shantanu Ferguson MD I agree with the assessment and tw4 plan of care. Disposition: 03/05/21 00:51 Discharged to Home. Impression: Anal fissure, unspecified, Constipation. - Condition is Stable. - Discharge Instructions: Anal Fissure, Adult, Constipation, Adult. - Prescriptions for Miralax 17 gram/dose Oral - take 1 packet by ORAL route once daily for 30 days dilute powder in 8 ounces of water or juice; 30 packet. - Medication Reconciliation Form, Thank You Letter, Antibiotic Education, Prescription Opioid Use form. - Follow up: Brad Matthew MD; When: 2 - 3 days; Reason: Worsening of condition. Signatures: Dispatcher [employer] EDMS Imtiaz Gongora PA PA cp Bryson, James, RN RN jb4 Shantanu Ferguson MD MD tw4 Quincy Maddox RN RN rr5 Corrections: (The following items were deleted from the chart) 03/04 23:40 23:40 TORadol - (ketorolac) 15 mg IVP once ordered. cp cp 03/05 01:22 00:51 03/05/2021 00:51 Discharged to Home. Impression: Anal fissure, unspecified; rr5 Constipation. Condition is Stable. Forms are Medication Reconciliation Form, Thank You Letter, Antibiotic Education, Prescription Opioid Use. Follow up: Brad Matthew; When: 2 - 3 days; Reason: Worsening of condition. cp 15:51 03/04 22:20 Patient reports 2 episodes of blood with bowel movements today. Patient cp admits bowel movements were hard and being constipated. denies fever, denies diarrhea. cp
--- NOTE | 2021-03-05 00:52 | ER ---
Nurse's Notes [facility] Name: Kitty Wall Age: 30 yrs Sex: Female : 1990 Arrival Date: 03/04/2021 Time: 20:47 Bed 4 Private MD: Diagnosis: Anal fissure, unspecified;Constipation Presentation: 03/04 21:11 Chief complaint: Patient states: I feel constipated. I went to the bathroom and started jb4 cramping and pooping, I noticed blood in my poop and I could not poop right. I do not know if it is from my cycle or from my kidneys. I just don't feel right and I can't poop right. There is blood in my underwear and when I wipe. Coronavirus screen: Client denies travel out of the [place] in the last 14 days. At this time, the client does not indicate any symptoms associated with coronavirus-19. Ebola Screen: No symptoms or risks identified at this time. Initial Sepsis Screen: Does the patient meet any 2 criteria? HR > 90 bpm. Yes Does the patient have a suspected source of infection? Yes: Acute abdominal pain. Risk Assessment: Do you want to hurt yourself or someone else? Patient reports no desire to harm self or others. Onset of symptoms was March 04, 2021. Transition of care: patient was not received from another setting of care. 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 - Social history:: Smoking status: Patient denies any tobacco usage or history of. Patient/guardian denies using alcohol, street drugs. Screenin:32 Abuse screen: Denies threats or abuse. Denies injuries from another. Nutritional rr5 screening: No deficits noted. Tuberculosis screening: No symptoms or risk factors identified. Fall Risk IV access (20 points). Total Quinn Fall Scale indicates No Risk (0-24 pts). Assessment: 22:00 General: Appears in no apparent distress. comfortable, Behavior is calm, cooperative, rr5 appropriate for age. 22:00 Pain: Complains of pain in anterior aspect of left lateral abdomen, left upper quadrant rr5 and left lower quadrant Pain radiates to posterior aspect of left lateral abdomen Pain currently is 7 out of 10 on a pain scale. Quality of pain is described as aching, Pain began gradually, Is intermittent. Neuro: Level of Consciousness is awake, alert, obeys commands, Oriented to person, place, time, situation. Cardiovascular: Capillary refill < 3 seconds Patient's skin is warm and dry. Respiratory: Airway is patent Respiratory effort is even, unlabored, Respiratory pattern is regular, symmetrical. GI: Abdomen is round non-distended, Abd is soft and non tender Reports lower abdominal pain, upper abdominal pain, constipation, bloody stool, nausea. : Reports pain in left flank(s). EENT: No signs and/or symptoms were reported regarding the EENT system. Derm: Skin temperature is warm. Musculoskeletal: Capillary refill < 3 seconds. 23:00 Reassessment: Patient appears in no apparent distress at this time. Patient and/or rr5 family updated on plan of care and expected duration. Pain level reassessed. Patient is alert, oriented x 3, equal unlabored respirations, skin warm/dry/pink. 23:50 Reassessment: Patient appears in no apparent distress at this time. Patient is alert, rr5 oriented x 3, equal unlabored respirations, skin warm/dry/pink. awaiting for results. complaint of pain ED provider aware with order made and carried out. 03/05 01:19 Reassessment: Patient appears in no apparent distress at this time. Patient is alert, rr5 oriented x 3, equal unlabored respirations, skin warm/dry/pink. discharge instruction given and explained without complained made. Vital Signs: 03/04 21:11 BP 132 / 80; Pulse 103; Resp 16; Temp 97.3; Pulse Ox 100% on R/A; Weight 65.32 kg (R); jb4 Height 5 ft. 1 in. (154.94 cm) (R); Pain 10/10; 23:18 BP 111 / 76; Pulse 95; Resp 16; Pulse Ox 99% ; rr5 03/05 00:00 BP 121 / 70; Pulse 99; Resp 15; Pulse Ox 98% ; rr5 01:18 BP 115 / 70; Pulse 90; Resp 16; Pulse Ox 99% ; rr5 03/04 21:11 Body Mass Index 27.21 (65.32 kg, 154.94 cm) jb4 ED Course: 03/04 20:47 Patient arrived in ED. am4 21:13 Triage completed. jb4 21:14 Arm band placed on right wrist. jb4 21:48 Quincy Maddox, ANN MARIE is Primary Nurse. rr5 21:53 Imtiaz Gongora PA is PHCP. cp 21:54 Shantanu Ferguson MD is Attending Physician. cp 22:00 Patient has correct armband on for positive identification. Placed in gown. Bed in low rr5 position. Call light in reach. Side rails up X2. Pulse ox on. NIBP on. 22:31 Urine collected: clean catch specimen, clear. Inserted saline lock: 22 gauge in right rr5 antecubital area, using aseptic technique. Blood collected. 23:54 CT Abd/Pelvis - IV Contrast Only In Process Unspecified. EDMS 03/05 00:50 Brad Matthew MD is Referral Physician. cp 01:17 No provider procedures requiring assistance completed. IV discontinued, intact, rr5 bleeding controlled, No redness/swelling at site. Pressure dressing applied. Administered Medications: 03/04 23:40 CANCELLED (Physician Discretion): TORadol - (ketorolac) 15 mg IVP once cp 23:56 Drug: NS 0.9% 1000 ml Route: IV; Rate: 1 bolus; Site: right antecubital; rr5 03/05 01:00 Follow up: Response: No adverse reaction; IV Status: Order to discontinue infusion; IV rr5 Intake: 500ml 03/04 23:56 Drug: fentaNYL (PF) 25 mcg {Note: rass 0.} Route: IVP; Site: right antecubital; rr5 03/05 01:00 Follow up: Response: No adverse reaction; RASS: Alert and Calm (0) rr5 Intake: 01:00 IV: 500ml; Total: 500ml. rr5 Outcome: 00:51 Discharge ordered by . cp 01:18 Discharged to home ambulatory, with family. rr5 01:18 Condition: stable 01:18 Discharge instructions given to patient, Instructed on discharge instructions, follow up and referral plans. medication usage, Demonstrated understanding of instructions, follow-up care, medications, Prescriptions given X 1. 01:22 Patient left the ED. rr5 Signatures: Dispatcher [employer] EDMS Imtiaz Gongora PA PA cp Bryson, James, RN RN jb4 Quincy Maddox RN RN rr5 Kristyn Soto am4 Corrections: (The following items were deleted from the chart) 01:22 00:00 Reassessment: Patient appears in no apparent distress at this time. Patient is rr5 alert, oriented x 3, equal unlabored respirations, skin warm/dry/pink. awaiting for results rr5
[2021-03-05 01:51] VITALS: TEMP 97.3
[2021-03-05 01:56] VITALS: BP 115/70; O2SAT 99
--- NOTE | 2021-03-05 19:45 | RAD REPORT ---
EXAM DESCRIPTION: CT - Abdomen Pelvis W Contrast - 03/05/2021 7:05 am CLINICAL HISTORY: Blood in stool, constipation. COMPARISON: CT of the abdomen and pelvis from June 13, 2019. TECHNIQUE: CT of the abdomen and pelvis was performed following intravenous administration of iodina christian contrast. Arterial phase images through the abdomen, and portal venous phase images through the a bdomen and pelvis were obtained. Oral contrast was not administered. Axial, coronal, and sagittal sof t tissue window reconstructions were created and sent to PACS. This exam was performed according to our departmental dose-optimization program, which includes autom ated exposure control, adjustment of the mA and/or kV according to patient size and/or use of iterati ve reconstruction technique. FINDINGS: Thoracic: No significant abnormality. Hepatobiliary: Few tiny hepatic hypodensities. No concerning hepatic lesion identified. The hepatic a nd portal veins are patent. The gallbladder is unremarkable. No biliary ductal dilatation. Pancreas: Unremarkable. Spleen: Unremarkable. Gastrointestinal: No evidence of bowel obstruction or perienteric inflammation. The appendix is bettye l. Small amount of fecal material throughout the colon. No obvious wall thickening. Adrenals: No abnormality identified in either adrenal gland. Renal: Interval right nephrectomy. No obvious abnormal soft tissue in the right renal fossa, within t he limitation of the absence of oral contrast. Multifocal left renal masses, the larger of which have fatty components. The mass along the lateral aspect of the mid left kidney has enlarged, now measuri ng 5.9 x 5.5 cm (previously 4.3 x 4.9 cm). No significant change in the large superior left renal mas s. The fatty posterior interpolar renal mass has also enlarged, now measuring 4.8 x 6 cm (previously 4 x 5.7 cm). Two smaller masses at the superior pole have also slightly enlarged. No findings to sugg est active bleeding. No hydronephrosis identified. Bladder/Reproductive: Unremarkable appearance of the urinary bladder by CT technique. Unremarkable CT appearance of the uterus and ovaries. Vascular/Lymphatics: No lymphadenopathy identified by CT size criteria. Abdominal aorta is normal in caliber. Aside from the right renal vein, the major visceral vessels are patent, including the left r enal vein and IVC. Musculoskeletal: No concerning osseous lesion identified. Tiny fat-containing supraumbilical hernia w ith no inflammatory changes. Fluid / peritoneum: No significant free fluid. No free intraperitoneal air identified. IMPRESSION 1. No acute abnormality identified in the abdomen or pelvis by CT. 2. Enlarging left renal angiomyolipomas. Interval right nephrectomy. Electronically signed by: Maddi Alejandro MD 03/05/2021 12:16 AM CDT Due to temporary technical issues with the PACS/Fluency reporting system, reports are being signed by the in house radiologists without review as a courtesy to insure prompt reporting. The interpreting radiologist is fully responsible for the content of the report.
== END 2021-03-05 01:22 | disposition home or self-care (01) ==
LOC: ER 20:46
DX: K60.2 Anal fissure, unspecified (principal); K59.00 Constipation, unspecified; F41.9 Anxiety disorder, unspecified; F31.9 Bipolar disorder, unspecified; F20.9 Schizophrenia, unspecified
CPT/HCPCS: 96361; 85025; 80048; 36415; 81025; 80076; 81003; 83690; 74177; 96374; 99284; Q9967

== ENCOUNTER 2021-09-06 08:26 | Observation (INO) | payer OTHER ==
[2021-09-06 09:46] LABS: Absolute Lymphocytes (CBC) 1.5 K/uL (0.7-4.9); Basophils % 0.5 % (0-1.3); Hematocrit 40.4 % (36.0-45.0); Lymphocytes % 18.7 % (15.3-44.8); MPV 7.4 fL (7.6-11.3); RBC Red Blood Cell Count 4.37 M/uL (3.86-4.86)
[2021-09-06 09:52] LABS: Urine Appearance CLOUDY (Clear); Urine Bilirubin NEGATIVE (Negative); Urine Blood TRACE (Negative); Urine Color YELLOW (Yellow); Urine Glucose NEGATIVE (Negative); Urine Protein 3+ (Negative); Urine Urobilinogen 0.2 mg/dL (0.2-1.0)
[2021-09-06 09:55] LABS: Urine Blood Trace-intact (Negative); Urine Glucose Negative (Negative); Urine Protein 3+ (Negative); Urine Specific Gravity >=1.030 (1.005-1.030)
[2021-09-06 10:02] LABS: Urine Microscopic Reflex ORDER UMIC
[2021-09-06 10:32] LABS: Urine Bacteria >50 /HPF (<20); Urine RBC <5 /HPF (NONE SEEN); Urine Yeast PRESENT (NONE SEEN)
[2021-09-06 11:00] LABS: Barbiturates NEGATIVE (NEGATIVE); Benzodiazepines NEGATIVE (NEGATIVE); Cocaine NEGATIVE (NEGATIVE); METHAMPHETAM NEGATIVE (NEGATIVE); Methadone NEGATIVE (NEGATIVE); Opiates NEGATIVE (NEGATIVE); Phencyclidine NEGATIVE (NEGATIVE); THC Cannibis NEGATIVE (NEGATIVE)
[2021-09-06 11:48] LABS: ALT/SGPT 23 U/L (12-78); AST/SGOT 17 U/L (15-37); Albumin 4.2 g/dL (3.4-5.0); Alkaline Phosphatase 130 U/L (45-117); Bicarbonate 23 mmol/L (21-32); Bilirubin Direct < 0.1 mg/dL (0-0.2); Glucose Level 93 mg/dL (74-106); Lipase 134 U/L (73-393); Potassium 4.2 mmol/L (3.5-5.1); Protein, Total 9.6 g/dL (6.4-8.2); Sodium Level 141 mmol/L (136-145)
[2021-09-06 12:01] LABS: BUN Blood Urea Nitrogen 27 mg/dL (7-18); Bilirubin Total 0.3 mg/dL (0.2-1.0)
--- NOTE | 2021-09-06 12:52 | EDPHYS ---
Physician Documentation [facility] Name: Kitty Wall Age: 31 yrs Sex: Female : 1990 Arrival Date: 09/06/2021 Time: 08:32 Bed 18 Private MD: ED Physician Doug Arteaga HPI: 09/06 09:14 This 31 yrs old Female presents to ER via Ambulatory with complaints of sp3 Weakness, Sore Throat, Fall Injury. 09:14 31-year-old female with a history of right nephrectomy secondary to "tumor", sp3 depression, bipolar disease, anxiety, presents to the ED for symptoms of generalized weakness and fatigue, and urinary frequency and dysuria. Symptoms been occurring for approximately 1 week. Patient states that she obtained a flu shot during her last doctor's visit which she attributes to her current symptoms as well. She has had a mild cough but it is resolving. She denies on ROS headache, neck pain, shortness of breath, chest pain, nausea, vomiting, diarrhea, neuro symptoms, rash, any other symptoms at this time. Lower abdominal pain over her bladder is present.. 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 - Social history:: Smoking status: Patient denies any tobacco usage or history of. ROS: 09:16 Constitutional: Negative for fever, chills, and weight loss, Eyes: Negative for injury, sp3 pain, redness, and discharge, ENT: Negative for injury, pain, and discharge, Neck: Negative for injury, pain, and swelling, Cardiovascular: Negative for chest pain, palpitations, and edema, Respiratory: Negative for shortness of breath, cough, wheezing, and pleuritic chest pain, Abdomen/GI: Negative for abdominal pain, nausea, vomiting, diarrhea, and constipation, Back: Negative for injury and pain, Skin: Negative for injury, rash, and discoloration, Neuro: Negative for headache, weakness, numbness, tingling, and seizure. 09:16 : Positive for urinary symptoms, Negative for Exam: 09:18 Constitutional: This is a well developed, well nourished patient who is awake, alert, sp3 and in no acute distress. Head/Face: Normocephalic, atraumatic. Eyes: Pupils equal round and reactive to light, extra-ocular motions intact. Lids and lashes normal. Conjunctiva and sclera are non-icteric and not injected. Cornea within normal limits. Periorbital areas with no swelling, redness, or edema. Neck: Trachea midline, no thyromegaly or masses palpated, and no cervical lymphadenopathy. Supple, full range of motion without nuchal rigidity, or vertebral point tenderness. No Meningismus. Chest/axilla: Normal chest wall appearance and motion. Nontender with no deformity. No lesions are appreciated. Cardiovascular: Regular rate and rhythm with a normal S1 and S2. No gallops, murmurs, or rubs. Normal PMI, no JVD. No pulse deficits. Respiratory: Lungs have equal breath sounds bilaterally, clear to auscultation and percussion. No rales, rhonchi or wheezes noted. No increased work of breathing, no retractions or nasal flaring. Abdomen/GI: Soft, non-tender, with normal bowel sounds. No distension or tympany. No guarding or rebound. No evidence of tenderness throughout. Back: No spinal tenderness. No costovertebral tenderness. Full range of motion. Skin: Warm, dry with normal turgor. Normal color with no rashes, no lesions, and no evidence of cellulitis. MS/ Extremity: Pulses equal, no cyanosis. Neurovascular intact. Full, normal range of motion. Neuro: Awake and alert, GCS 15, oriented to person, place, time, and situation. Cranial nerves II-XII grossly intact. Motor strength 5/5 in all extremities. Sensory grossly intact. Cerebellar exam normal. Normal gait. Psych: Awake, alert, with orientation to person, place and time. Behavior, mood, and affect are within normal limits. Vital Signs: 08:45 BP 133 / 85; Pulse 112; Resp 18 S; Temp 98.4(O); Pulse Ox 100% on R/A; Weight 72.57 kg aa5 (R); Height 5 ft. 1 in. (154.94 cm) (R); 08:50 BP 132 / 86; Pulse 105; Resp 18; Temp 98.2; Pulse Ox 100% on R/A; sl2 09:30 BP 126 / 84; Pulse 94; Resp 18; Temp 98.2; Pulse Ox 99% on R/A; sl2 10:22 BP 111 / 67; Pulse 98; Resp 18; Temp 98.4; Pulse Ox 99% on R/A; sl2 11:20 BP 114 / 68; Pulse 85; Resp 18; Temp 98.2; Pulse Ox 99% on R/A; sl2 12:17 BP 115 / 76; Pulse 78; Resp 18; Temp 98.3; Pulse Ox 100% on R/A; sl2 13:30 BP 118 / 78; Pulse 85; Resp 18; Temp 98.2; Pulse Ox 99% on R/A; sl2 15:30 BP 127 / 81; Pulse 93; Resp 16; Temp 98.4; Pulse Ox 100% on R/A; sl2 16:00 BP 138 / 80; Pulse 82; Resp 18; Temp 98.4; Pulse Ox 100% on R/A; sl2 17:00 BP 123 / 81; Pulse 76; Resp 18; Temp 98.2; Pulse Ox 100% on R/A; sl2 18:00 BP 118 / 71; Pulse 85; Resp 16; Temp 98.2(O); Pulse Ox 100% on R/A; sl2 19:25 BP 119 / 82; Pulse 88; Resp 20; Temp 98.0; Pulse Ox 95% on R/A; sl2 08:45 Body Mass Index 30.23 (72.57 kg, 154.94 cm) aa5 MDM: 08:57 Patient medically screened. sp3 09:18 Data reviewed: vital signs, nurses notes. ED course: 31-year-old female with dysuria sp3 and urinary symptoms. Will obtain urinalysis, laboratory values, and monitor patient while in the ED. Given her single kidney status, creatinine level will be checked. Patient's heart rate is now normal and likely due to her anxiety. I am not suspecting sepsis, dehydration, or kidney failure at this time.. 12:47 ED course: Renal dose Zosyn started. Discussed with hospitalist team and will admit sp3 patient. CT scan is still pending.. 09/06 08:59 Order name: Basic Metabolic Panel sp3 09/06 08:59 Order name: CBC with Diff; Complete Time: 10:28 sp3 09/06 08:59 Order name: Hepatic Function; Complete Time: 12:19 sp3 09/06 08:59 Order name: Lipase; Complete Time: 12:19 sp3 09/06 08:59 Order name: Urine Drug Screen; Complete Time: 11:22 sp3 09/06 08:59 Order name: UA; Complete Time: 11:22 sp3 09/06 08:59 Order name: Basic Metabolic Panel; Complete Time: 12:19 EDMS 09/06 09:56 Order name: Urine Dipstick-Ancillary; Complete Time: 10:28 EDMS 09/06 10:04 Order name: Urine Microscopic Only; Complete Time: 11:22 EDMS 09/06 10:33 Order name: Urine Culture EDMS 09/06 12:49 Order name: CT Abd/Pelvis - Without Contrast; Complete Time: 13:54 sp3 09/06 13:25 Order name: COVID-19 (Coronavirus) Document "Date of Onset" if Symptomatic ss 09/06 17:04 Order name: SARS-COV-2 RT PCR EDMS 09/06 17:44 Order name: Hand Left 3 View XRAY aa5 09/06 08:59 Order name: IV Saline Lock; Complete Time: 09:54 sp3 09/06 08:59 Order name: Labs collected and sent; Complete Time: 09:54 sp3 09/06 08:59 Order name: Urine Dipstick-Ancillary (obtain specimen); Complete Time: 09:54 sp3 09/06 18:44 Order name: RAD EDMS Administered Medications: 15:55 Drug: Zosyn (piperacillin-tazobactam) 2.25 grams Route: IVPB; Infused Over: 60 mins; sl2 Site: left antecubital; 17:00 Follow up: Response: No adverse reaction; IV Status: Completed infusion; IV Intake: sl2 100ml Disposition Summary: 09/06/21 12:51 Hospitalization Ordered Hospitalization Status: Inpatient Admission sp3 Provider: David Saunders sp3 Location: Telemetry/MedSur (Inpatient) sp3 Condition: Stable sp3 Problem: an acute exacerbation sp3 Symptoms: have worsened sp3 Bed/Room Type: Standard sp3 Room Assignment: 423(09/06/21 18:28) dw Diagnosis - Pyelonephritis acute sp3 - Acute kidney failure, unspecified sp3 Discharge Instructions: - Discharge Summary Sheet tw2 Forms: - Work release form tw2 - Medication Reconciliation Form sp3 - SBAR form sp3 Signatures: Dispatcher [employer] EDElizabeth Latif RN RN dw Rebekah Pugh RN RN aa5 Nichole Mcgowan RN RN tw2 Doug Arteaga MD MD sp3 Kelsey Jamil RN RN sl2 Corrections: (The following items were deleted from the chart) 18:28 12:51 sp3 dw
--- NOTE | 2021-09-06 12:52 | ER ---
Nurse's Notes [facility] Name: Kitty Wall Age: 31 yrs Sex: Female : 1990 Arrival Date: 09/06/2021 Time: 08:32 Bed 18 Private MD: Diagnosis: Pyelonephritis acute;Acute kidney failure, unspecified Presentation: 09/06 08:45 Chief complaint: Patient states: "I've been feeling weak since I got the flu shot about aa5 5 days ago at my doctor's office, I also fell going up the stairs on Monday because I was so weak". Pt also states "my left kidney hurts". Coronavirus screen: fatigue. Ebola Screen: No symptoms or risks identified at this time. Onset of symptoms was 2020. 08:45 Method Of Arrival: Ambulatory aa5 08:45 Acuity: GULSHAN 3 aa5 08:45 Initial Sepsis Screen: Does the patient meet any 2 criteria? HR > 90 bpm. Does the aa5 patient have a suspected source of infection? No. Patient's initial sepsis screen is negative. Risk Assessment: Do you want to hurt yourself or someone else? Patient reports no desire to harm self or others. 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 - Social history:: Smoking status: Patient denies any tobacco usage or history of. Screenin:47 Abuse screen: Denies threats or abuse. Nutritional screening: No deficits noted. tw2 Tuberculosis screening: No symptoms or risk factors identified. Fall Risk None identified. Assessment: 08:52 General: Appears in no apparent distress. comfortable, well groomed, well developed, sl2 Behavior is calm, cooperative, appropriate for age. 08:52 Pain: Denies pain. Neuro: No deficits noted. Neuro: No deficits noted. Reports sl2 dizziness, weakness since 09/02/21 after taking influenza vaccine Denies blurred vision difficulty swallowing, numbness headache. Cardiovascular: No deficits noted. Respiratory: No deficits noted. GI: No deficits noted. : No deficits noted. EENT: No deficits noted. Derm: No deficits noted. Musculoskeletal: No deficits noted. 15:47 Reassessment: Patient lying quietly in bed - shows no signs of distress or discomfort, sl2 SR \\T\\ 93 bpm noted on pvc monitor. VSS. Will continue to re-assess and montitor. Awaiting bed assignment for inpatient admission. 17:58 Reassessment: Patient verbalized that she injured her left 2nd and 3rd fingers this sl2 morning prior to coming to ER,. States pain was mild this morning but now getting wrost, swelling and ecchymotic bruising noted to digits, EDP notified - X-ray ordered. 19:25 Reassessment: Patient appears in no apparent distress at this time. Received resting in sl2 bed \\T\\ watching TV; voices c/o nasal congestion; states, "I've been sick since I took the flu shot"; voices no c/o pain; # 22 g saline lock intact left AC with no s/sx's of infection/infiltration noted; VSS; report telephoned to ANN MARIE Beverly. Vital Signs: 08:45 BP 133 / 85; Pulse 112; Resp 18 S; Temp 98.4(O); Pulse Ox 100% on R/A; Weight 72.57 kg aa5 (R); Height 5 ft. 1 in. (154.94 cm) (R); 08:50 BP 132 / 86; Pulse 105; Resp 18; Temp 98.2; Pulse Ox 100% on R/A; sl2 09:30 BP 126 / 84; Pulse 94; Resp 18; Temp 98.2; Pulse Ox 99% on R/A; sl2 10:22 BP 111 / 67; Pulse 98; Resp 18; Temp 98.4; Pulse Ox 99% on R/A; sl2 11:20 BP 114 / 68; Pulse 85; Resp 18; Temp 98.2; Pulse Ox 99% on R/A; sl2 12:17 BP 115 / 76; Pulse 78; Resp 18; Temp 98.3; Pulse Ox 100% on R/A; sl2 13:30 BP 118 / 78; Pulse 85; Resp 18; Temp 98.2; Pulse Ox 99% on R/A; sl2 15:30 BP 127 / 81; Pulse 93; Resp 16; Temp 98.4; Pulse Ox 100% on R/A; sl2 16:00 BP 138 / 80; Pulse 82; Resp 18; Temp 98.4; Pulse Ox 100% on R/A; sl2 17:00 BP 123 / 81; Pulse 76; Resp 18; Temp 98.2; Pulse Ox 100% on R/A; sl2 18:00 BP 118 / 71; Pulse 85; Resp 16; Temp 98.2(O); Pulse Ox 100% on R/A; sl2 19:25 BP 119 / 82; Pulse 88; Resp 20; Temp 98.0; Pulse Ox 95% on R/A; sl2 08:45 Body Mass Index 30.23 (72.57 kg, 154.94 cm) aa5 ED Course: 08:32 Patient arrived in ED. as 08:42 Kelsey Jamil RN is Primary Nurse. sl2 08:42 Bed in low position. Call light in reach. tw2 08:45 Arm band placed on. aa5 08:47 Triage completed. aa5 08:57 Doug Arteaga MD is Attending Physician. sp3 09:20 Inserted saline lock: 22 gauge in left antecubital area, using aseptic technique. sl2 12:49 David Saunders DO is Hospitalizing Provider. sp3 13:11 CT Abd/Pelvis - Without Contrast In Process Unspecified. EDMS 17:53 No provider procedures requiring assistance completed. sl2 17:54 intact, No redness/swelling at site. sl2 Administered Medications: 15:55 Drug: Zosyn (piperacillin-tazobactam) 2.25 grams Route: IVPB; Infused Over: 60 mins; sl2 Site: left antecubital; 17:00 Follow up: Response: No adverse reaction; IV Status: Completed infusion; IV Intake: sl2 100ml Intake: 17:00 IV: 100ml; Total: 100ml. sl2 Outcome: 12:51 Decision to Hospitalize by Provider. sp3 19:40 Admitted to Med/surg accompanied by tosin, via stretcher, room 423, Report called to slHarmony Beverly RN. 19:40 Condition: stable 19:40 Instructed on the need for admit, Demonstrated understanding of instructions. 19:47 Patient left the ED. sl2 Signatures: Dispatcher [employer] Ctay Ugalde Audri, RN RN aa5 Nichole Mcgowan RN RN tw2 Doug Arteaga MD MD sp3 Kelsey Jamil RN RN sl2
--- NOTE | 2021-09-06 13:25 | RAD REPORT ---
EXAM DESCRIPTION: CT - Abdomen Pelvis Wo Contrast - 09/06/2021 1:12 pm CLINICAL HISTORY: Abdominal pain /pyelonephritis COMPARISON: February 2021 TECHNIQUE: Computed axial tomography of the abdomen and pelvis was obtained. IV and oral contrast we re not requested. All CT scans are performed using dose optimization technique as appropriate and may include automated exposure control or mA/KV adjustment according to patient size. FINDINGS: The evaluation of solid organs, vessels and bowel is limited secondary to the lack of con trast administration. Right nephrectomy The left kidney contains multiple angiomyolipomas. Some have diminished in size. None have enlarged. No evidence of acute bleed. No hydronephrosis. Several calculi are present without hydronephrosis. A left ureteral calculus is not seen. Stable small hepatic lesions. Spleen, pancreas and adrenals grossly normal. Small ventral and umbilical hernias. No evidence of diverticulitis. Normal appendix. IMPRESSION: Left renal angiomyolipomas. Some are stable. Some have diminished in size. No evidence o f an acute bleed
--- NOTE | 2021-09-06 15:21 | P.HP ---
Certification for Inpatient Patient admitted to: Inpatient With expected LOS: >2 Midnights Patient will require the following post-hospital care: None Practitioner: I am a practitioner with admitting privileges, knowledge of patient current condition, hospital course, and medical plan of care. Services: Services provided to patient in accordance with Admission requirements found in Title 42 Section 412.3 of the Code of Federal Regulations Patient History Date of Service: 09/06/21 Primary Care Provider: Dr. Ramirez Reason for admission: Stage 4 Renal Failure with Acute Pylonephritis History of Present Illness: CT - Abdomen Pelvis Wo Contrast - 09/06/2021 1:12 pm CLINICAL HISTORY: Abdominal pain /pyelonephritis COMPARISON: February 2021 TECHNIQUE: Computed axial tomography of the abdomen and pelvis was obtained. IV and oral contrast were not requested. FINDINGS: The evaluation of solid organs, vessels and bowel is limited secondary to the lack of contrast administration. Right nephrectomy. The left kidney contains multiple angiomyolipomas. Some have diminished in size. None have enlarged. No evidence of acute bleed. No hydronephrosis. Several calculi are present without hydronephrosis. A left ureteral calculus is not seen. Stable small hepatic lesions. Spleen, pancreas and adrenals grossly normal. Small ventral and umbilical hernias. No evidence of diverticulitis. Normal appendix. IMPRESSION: Left renal angiomyolipomas. Some are stable. Some have diminished in size. No evidence of an acute bleed Chemistries are remarkable for a BUN of 27 and a creatinine of 1.97. Hematology remarkable for platelets of 415. Alkaline phosphate was elevated at 130 and total protein was 9.16. Urinalysis showed bacteria leukocytes white blood counts and yeast. The patient currently has stage IV kidney disease. She has had difficulty with her kidneys since the age of 20. This is a hereditary problem. She has also suffered from a brain tumor and lifelong epilepsy for which she has a nerve stimulator in place. On May 05 she had a nephrectomy of her right kidney. She states that she had anticipated some improvement after the surgery but that she has noted that she seems to be declining. She states that she feels weak and this was the reason she came to emergency room. She was evaluated on arrival and noted to have urinary tract infection as well as increasing BUN and creatinine. The fact that she has left kidney disease and a right nephrectomy would indicate that she needed to be hospitalized for evaluation of her kidney issues. Allergies No Known Drug Allergies Allergy (Unverified 03/12/15 08:55) Unknown No Known Allergies Allergy (Uncoded 01/22/16 21:15) Unknown Home medications list reviewed: No - Past Medical/Surgical History Has patient received pneumonia vaccine in the past: No Diabetic: No -: Epilepsy with inplanted nerve stimulator -: Brain Tumor diagnosed at age 3 -: Chronic hereditary Kidney Disease Stage 4 with prior right nephrectomy -: Nerve stimulator implant -: 2 kidney surgeries Psychosocial/ Personal History: Unemployed, lives with boyfriend - Family History Father -: Other (see notes) (multiple sclerosis) Mother -: Kidney disease (On dialysis) - Social History Smoking Status: Never smoker Alcohol use: No CD- Drugs: No Caffeine use: No Place of Residence: Home Review of Systems 10-point ROS is otherwise unremarkable General: Weakness, Malaise ENT: Other (dysphagia) Respiratory: SOB with Excertion Cardiovascular: Unremarkable Gastrointestinal: Unremarkable Genitourinary: Incontinence Musculoskeletal: Unremarkable Integumentary: Unremarkable Neurological: Unremarkable Lymphatics: Unremarkable Physical Examination - Physical Exam General: Alert, In no apparent distress, Oriented x3, Cooperative HEENT: Atraumatic, Normocephalic, PERRLA Neck: Supple, JVD not distended Respiratory: Clear to auscultation bilaterally, Normal air movement Cardiovascular: No edema, Normal pulses, Regular rate/rhythm Capillary refill: <2 Seconds Gastrointestinal: Soft and benign, Non-distended Musculoskeletal: No clubbing, No swelling, No contractures Integumentary: No rashes, No breakdown Neurological: Normal gait, Normal speech External genitalia: Deferred Rectal: Deferred - Studies Laboratory Data (last 24 hrs) 09/06/21 09:25: WBC 8.10, Hgb 13.5, Hct 40.4, Plt Count 415 H 09/06/21 09:25: Sodium 141, Potassium 4.2, BUN 27 H, Creatinine 1.97 H, Glucose 93, Total Bilirubin 0.3, AST 17, ALT 23, Alkaline Phosphatase 130 H, Lipase 134 Assessment and Plan - Plan Assessment: Stage 4 Kidney Disease UTI Epilepsy Brain Tumor Plan: Stage 4 Kidney Disease: IV, Renal ultrasound, Renal Consult UTI: Zosyn renal dose Epilepsy: non-contributory Brain Tumor: non-contributory DVT PPX: Lovenox 40mg Code status: Full Code Discharge Plan: Home Plan to discharge in: 48 Hours - Advance Directives Does patient have a Living Will: No Does patient have a Durable POA for Healthcare: No - Code Status/Comfort Care Code Status Assessed: Yes Code Status: Full Code Critical Care: No Time Spent Managing Pts Care (In Minutes): 70
[2021-09-06] MEDS ORDERED: PIPERACIL/TAZO 3.375 GM VIAL IV ONE (16:19)
[2021-09-06] MEDS ORDERED: NA CHLORIDE 0.9% 100 ML ONE (16:21)
[2021-09-06] MEDS ORDERED: PIPERACIL/TAZO 2.25 GM VIAL IV ONE (16:23)
--- NOTE | 2021-09-06 18:42 | RAD REPORT ---
EXAM DESCRIPTION: RAD -Hand Left 3 View - 09/06/2021 6:34 pm CLINICAL HISTORY: Left hand pain FINDINGS: No fracture or dislocation is seen. No significant bone or joint abnormality is seen
[2021-09-06] MEDS ORDERED: ACETAMINOPHEN 500 MG TAB PO PRN (20:10)
[2021-09-06] MEDS ORDERED: ONDANSETRON 4 MG/2 ML VIAL IV PRN (20:10)
[2021-09-06] MEDS: CEFTRIAXONE 1 GM/NS 50 ML 1 GM/50 ML BAG IV SCH (21:00)
[2021-09-06 21:34] VITALS: BMI 31.9
[2021-09-07 04:14] VITALS: BP 123/69; TEMP 97.3
[2021-09-07 04:33] LABS: Absolute Lymphocytes (CBC) 2.5 K/uL (0.7-4.9); Basophils % 0.5 % (0-1.3); Hematocrit 36.5 % (36.0-45.0); Lymphocytes % 26.9 % (15.3-44.8); MPV 7.7 fL (7.6-11.3)
[2021-09-07] MEDS: NA CHLORIDE 0.9% 1,000 ML IV SCH ×2 (04:37→06:10)
[2021-09-07 04:45] LABS: Albumin 3.6 g/dL (3.4-5.0); Bilirubin Total 0.4 mg/dL (0.2-1.0); Magnesium 2.2 mg/dL (1.8-2.4); Protein, Total 8.3 g/dL (6.4-8.2)
[2021-09-07] MEDS ORDERED: CEFTRIAXONE 1000 MG/VIAL ONE ×2 (04:47→04:55)
[2021-09-07] MEDS ORDERED: NA CHLORIDE 0.9% 100 ML ONE (04:55)
--- NOTE | 2021-09-07 06:32 | P.PN ---
Subjective Date of Service: 09/07/21 Primary Care Provider: Dr. Ramirez Chief Complaint: Stage 4 Renal Failure with Acute Pylonephritis Subjective: Improving, Doing well Physical Examination - Vital Signs Temperature: 97.3 F Blood Pressure: 123/69 Pulse: 93 Respirations: 18 Pulse Ox (%): 98 - Studies Laboratory Data (last 24 hrs) 09/06/21 09:25: WBC 8.10, Hgb 13.5, Hct 40.4, Plt Count 415 H 09/06/21 09:25: Sodium 141, Potassium 4.2, BUN 27 H, Creatinine 1.97 H, Glucose 93, Total Bilirubin 0.3, AST 17, ALT 23, Alkaline Phosphatase 130 H, Lipase 134 Assessment & Plan Discharge Plan: Home Plan to discharge in: 24 Hours Physician Review Additional Text: COVID: Negative CT scan: COMPARISON: February 2021 TECHNIQUE: Computed axial tomography of the abdomen and pelvis was obtained. IV and oral contrast were not requested. All CT scans are performed using dose optimization technique as appropriate and may include automated exposure control or mA/KV adjustment according to patient size. FINDINGS: The evaluation of solid organs, vessels and bowel is limited secondary to the lack of contrast administration. Right nephrectomy The left kidney contains multiple angiomyolipomas. Some have diminished in size. None have enlarged. No evidence of acute bleed. No hydronephrosis. Several calculi are present without hydronephrosis. A left ureteral calculus is not seen. Stable small hepatic lesions. Spleen, pancreas and adrenals grossly normal. Small ventral and umbilical hernias. No evidence of diverticulitis. Normal appendix. IMPRESSION: Left renal angiomyolipomas. Some are stable. Some have diminished in size. No evidence of an acute bleed Renal US: COMPARISON: August 2021 cat scan FINDINGS: Right nephrectomy The left kidney measures approximately 10 centimeters with a normal echotexture. It contains multiple echogenic masses compatible with angiomyolipomas. Largest measures 4.5 centimeters. Several small calculi. Hydronephrosis is not seen No gross abnormality of bladder IMPRESSION: Right nephrectomy Left renal angiomyelolipomas Left Hand xray: FINDINGS: No fracture or dislocation is seen. 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 No complaints noted. Patient afebrile. Procalcitonin negative. Initial culture negative. Cath culture pending. Patient will be discharged home. Recommend follow-up with PCP to follow-up urine culture results. At discharge patient will continue with Augmentin 250 mg 1 pill twice daily for 7 days. Patient has appointment with urology later this week to address urinary incontinence. Recommend follow-up with nephrology as an outpatient to further monitor. Recommend to recheck labBMP within 1 week. UTI prevention provided. Time Spent Managing Pts Care (In Minutes): 55
[2021-09-07] MEDS ORDERED: INFLUENZA VACCINE (for 6+ mo) 0.5 ML DOSE IMVAC ONE (08:00)
[2021-09-07] MEDS ORDERED: PNEUMOCOCCAL VACCINE 0.5 ML IMVAC ONE (08:00)
--- NOTE | 2021-09-07 08:11 | RAD REPORT ---
EXAM DESCRIPTION: US - Renal Ultrasound-Complete - 09/07/2021 12:27 am CLINICAL HISTORY: Abdominal pain/pyelonephritis COMPARISON: August 2021 cat scan FINDINGS: Right nephrectomy The left kidney measures approximately 10 centimeters with a normal echotexture. It contains multiple echogenic masses compatible with angiomyolipomas. Largest measures 4.5 centimete rs. Several small calculi. Hydronephrosis is not seen No gross abnormality of bladder IMPRESSION: Right nephrectomy Left renal angiomyelolipomas
--- NOTE | 2021-09-07 08:52 | P.DS ---
Admission Date: 09/06/21 Discharge Date: 09/07/21 Primary Care Provider: Dr. Ramirez Disposition: ROUTINE DISCHARGE Discharge Condition: GOOD Reason for Admission: UTI Consultations: None Procedures: COVID: Negative CT scan: COMPARISON: February 2021 TECHNIQUE: Computed axial tomography of the abdomen and pelvis was obtained. IV and oral contrast were not requested. All CT scans are performed using dose optimization technique as appropriate and may include automated exposure control or mA/KV adjustment according to patient size. FINDINGS: The evaluation of solid organs, vessels and bowel is limited secondary to the lack of contrast administration. Right nephrectomy The left kidney contains multiple angiomyolipomas. Some have diminished in size. None have enlarged. No evidence of acute bleed. No hydronephrosis. Several calculi are present without hydronephrosis. A left ureteral calculus is not seen. Stable small hepatic lesions. Spleen, pancreas and adrenals grossly normal. Small ventral and umbilical hernias. No evidence of diverticulitis. Normal appendix. IMPRESSION: Left renal angiomyolipomas. Some are stable. Some have diminished in size. No evidence of an acute bleed Renal US: COMPARISON: August 2021 cat scan FINDINGS: Right nephrectomy The left kidney measures approximately 10 centimeters with a normal echotexture. It contains multiple echogenic masses compatible with angiomyolipomas. Largest measures 4.5 centimeters. Several small calculi. Hydronephrosis is not seen No gross abnormality of bladder IMPRESSION: Right nephrectomy Left renal angiomyelolipomas Left Hand xray: FINDINGS: No fracture or dislocation is seen. 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 Patient reports weakness yesterday. She came to the ER for further evaluation. UTI was suspected. CT scan revealed no pyelonephritis. Patient admitted for further evaluation and treatment. Hospital Course: Patient presented with weakness. 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 Patient also with underlying chronic renal disease stage III. Patient was admitted for treatment. Patient received IV antibiotic therapy. Initial clean-catch urine culture negative. Catheterized urine culture obtained. White count within normal range. Procalcitonin negative. Patient has done well. No further pain, fever noted. CT scan showed right nephrectomy with left renal angiomyolipomas. No evidence of acute bleed noted. Renal ultrasound showed prior right nephrectomy and left renal angiomyolipomas. No evidence of bleed noted. No hydronephrosis seen. No gross abnormality seen. Patient was monitored overnight. Patient has done well. At discharge patient will continue with Augmentin 250 mg 1 pill twice daily for 7 days. Patient will also continue with her medication of vitamin D3 50 mcg daily. Recommend follow-up with PCP within 1 week to follow-up his hospitalization. Recommend to recheck labBMP within 1 week to monitor progress. Due to her history of chronic renal disease and angiomyolipomas, it is recommended that she establish care with urology as an outpatient to further monitor her care. Patient reports that she has an appointment with urology later this week to address urinary incontinence. Recommend follow-up with PCP to further monitor and address her condition. Patient with history of epilepsy. Patient will continue with her current medicationsLamictal 100 mg 1 pill twice daily and vitamin B6 50 mg 1 pill twice daily. Recommend follow-up with neurology as directed. Vital Signs/Physical Exam: Temp Pulse Resp BP Pulse Ox 97.3 F 93 H 18 123/69 98 09/07/21 08:51 09/07/21 08:51 09/07/21 08:51 09/07/21 08:51 09/07/21 08:51 General: Alert, In no apparent distress, Oriented x3, Cooperative HEENT: Atraumatic Neck: Supple Respiratory: Clear to auscultation bilaterally, Normal air movement Cardiovascular: Normal pulses, Regular rate/rhythm Gastrointestinal: Normal bowel sounds, Soft and benign, Non-distended, No tenderness, No masses, No rebound, No guarding Musculoskeletal: No contractures, No erythema, No tenderness, No warmth Integumentary: No tenderness/swelling Neurological: Normal speech, Normal strength at 5/5 x4 extr, Normal tone Laboratory Data at Discharge: WBC 9.20 K/uL (4.3-10.9) 09/07/21 03:52 Hgb 12.3 g/dL (12.0-15.0) 09/07/21 03:52 Hct 36.5 % (36.0-45.0) 09/07/21 03:52 Plt Count 371 K/uL (152-406) 09/07/21 03:52 Sodium 143 mmol/L (136-145) 09/07/21 03:52 Potassium 4.0 mmol/L (3.5-5.1) 09/07/21 03:52 BUN 24 mg/dL (7-18) H 09/07/21 03:52 Creatinine 1.79 mg/dL (0.55-1.3) H 09/07/21 03:52 Glucose 81 mg/dL (74-106) 09/07/21 03:52 Phosphorus 4.0 mg/dL (2.5-4.9) 09/07/21 03:52 Magnesium 2.2 mg/dL (1.8-2.4) 09/07/21 03:52 Total Bilirubin 0.4 mg/dL (0.2-1.0) 09/07/21 03:52 AST 17 U/L (15-37) 09/07/21 03:52 ALT 20 U/L (12-78) 09/07/21 03:52 Alkaline Phosphatase 115 U/L (45-117) 09/07/21 03:52 Lipase 134 U/L (73-393) 09/06/21 09:25 Home Medications: Cholecalciferol (Vitamin D3) [Vitamin D3] 50 mcg PO DAILY 09/06/21 Lamotrigine [Lamictal] 100 mg PO BID 09/06/21 Pyridoxine [Vitamin B-6*] 50 mg PO BID 09/06/21 Amoxicillin/Potassium Clav [Augmentin 500-125 Tablet] 0.5 each PO BID #7 tablet 09/07/21 New Medications: Amoxicillin/Potassium Clav [Augmentin 500-125 Tablet] 0.5 each PO BID #7 tablet Physician Discharge Instructions: Patient presented with weakness. 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 Patient also with underlying chronic renal disease stage III. Patient was admitted for treatment. Patient received IV antibiotic therapy. Initial clean-catch urine culture negative. Catheterized urine culture obtained. White count within normal range. Procalcitonin negative. Patient has done well. No further pain, fever noted. CT scan showed right nephrectomy with left renal angiomyolipomas. No evidence of acute bleed noted. Renal ultrasound showed prior right nephrectomy and left renal angiomyolipomas. No evidence of bleed noted. No hydronephrosis seen. No gross abnormality seen. Patient was monitored overnight. Patient has done well. At discharge patient will continue with Augmentin 250 mg 1 pill twice daily for 7 days. Patient will also continue with her medication of vitamin D3 50 mcg daily. Recommend follow-up with PCP within 1 week to follow-up his hospitalization. Recommend to recheck labBMP within 1 week to monitor progress. Due to her history of chronic renal disease and angiomyolipomas, it is recommended that she establish care with urology as an outpatient to further monitor her care. Patient reports that she has an appointment with urology later this week to address urinary incontinence. Recommend follow-up with PCP to further monitor and address her condition. Patient with history of epilepsy. Patient will continue with her current medicationsLamictal 100 mg 1 pill twice daily and vitamin B6 50 mg 1 pill twice daily. Recommend follow-up with neurology as directed. Diet: Renal Activity: Ad padma Followup: NONE,NONE [Primary Care Provider] - Time spent managing pt's care (in minutes): 55
[2021-09-07] MEDS ORDERED: ENOXAPARIN 40 MG/0.4 ML SQ SCH (09:00)
[2021-09-07] MEDS: CEFTRIAXONE 1 GM/NS 50 ML 1 GM/50 ML BAG IV SCH (09:00)
[2021-09-07 09:09] VITALS: O2SAT 99
--- OUTSIDE RECORDS SUMMARY | 2021-09-24 11:18 | XMS REPORT | Continuity of Care Document ---
:[address] [facility] t Address [address] [place] [address] Care Team Providers Name Role Phone Candice Ortiz MD Primary Care Physician Neela VO Attending Clinician Unavailable Neela VO Attending Clinician Unavailable MAHNAZ Attending Clinician Unavailable KATIE WOOTEN Attending Clinician Unavailable Moise FENTON Attending Clinician Unavailable Krysta LOW Attending Clinician Unavailable JOSE CARLOS Attending Clinician Unavailable Candice ORTIZ Attending Clinician Unavailable Candice Ortiz MD Attending Clinician Jean Pierre OSMAN, N Attending Clinician Flaquito URIAS Attending Clinician Unavailable Neela Madrid MD Attending Clinician Barbara OSMAN Attending Clinician Zaki GREENFIELD Attending Clinician Unavailable Neela MADRID Attending Clinician Unavailable Cami DUMAS Attending Clinician Unavailable JEREMIAH Attending Clinician Unavailable ZINA Attending Clinician Unavailable TRACIE Attending Clinician Unavailable Candice DU Attending Clinician Unavailable NADJA Attending Clinician Unavailable LEAH OLIVA Attending Clinician Unavailable BETTY CORTEZ Attending Clinician Unavailable BETTY CORTEZ Attending Clinician Unavailable NEIL SANTIAGO Attending Clinician Unavailable Humberto REDDY Attending Clinician Unavailable ADAM Attending Clinician Unavailable Adam DOUGHERTY Attending Clinician Neil Santiago MD Attending Clinician Yury OSMAN Attending Clinician UNKNOWN Attending Clinician Unavailable KING ELLIOT C Attending Clinician Unavailable Evan ANDERSON Attending Clinician Unavailable Zina OSMAN Attending Clinician BRIAN OLSEN Attending Clinician Unavailable Brian Olsen DO Attending Clinician Nurse, Women[facility] Attending Clinician Unavailable Sugar HUERTA Rp Attending Clinician Evan CHOI Attending Clinician Unavailable Zaki DAILEY Attending Clinician Unavailable FELICIANO Attending Clinician Unavailable LILIBETH RANDHAWA Attending Clinician Unavailable Neela ALBA Attending Clinician Unavailable Jerry NORRIS Attending Clinician JERRY Attending Clinician Unavailable Johnny GREENFIELD Attending Clinician Unavailable BEV Attending Clinician Unavailable Krysta ROLON Attending Clinician Unavailable VALORIE Attending Clinician Unavailable CHRISTIAN Attending Clinician Unavailable ELVIRA Attending Clinician Unavailable Neela VO Admitting Clinician Unavailable Krysta ROLON Admitting Clinician Unavailable Payers Payer Name Policy Type Policy Number Effective Date Expiration Date [facility] [id number] 2015 MEDICAID 00:00:00 Advance Directives Directive Decision Effective Termination Comments Source Date Date Healthcare Agents on N/A [facility] FileNameRelationshipHealthcare [facility] Medical [facility] [phone] (Mobile) Darien Barnett Jr[facility] [phone] (Mobile) Problems Condition Condition Condition Status Onset Resolution Last Treating Co mments Source Name Details Category Date Date Treatment Clinician Date Gastritis Gastritis Disease Active 2020-11 Uni vers 0-10 ity of 00:00: [address] Branch Vaginal Vaginal Disease Active Univers discharge discharge 9-24 ity of 00:00: [place] [address] Medical Branch Dysuria Dysuria Disease Active Univers 9-24 ity of 00:00: [place] [facility] Encounter Encounter Disease Active Uni vers for for 9-24 ity of surveillan [place] of Medical implantabl implantabl Br anch e e subdermal subdermal contracept contracept ric ric Dysphagia, Dysphagia, Disease Active Overview : Univers pharyngoes pharyngoes 07-30 Formattin ity of ophageal ophageal 00:00: g of this [place] as phase phase 00 note Medical might be Branch different from the original. 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 00:: [address] Branch RLS RLS Disease Active Univers (restless (restless 2-22 ity of legs legs 00:00: [place] syndrome) syndrome) 00 [facility] Branch Anxiety Anxiety Disease Active Univers 2-22 ity of 00:00: [place] [facility] Branch Vitamin D Vitamin D Disease Active Uni vers deficiency deficiency 1-27 it y of 00:00: [place] [facility] Branch Vitamin B6 Vitamin B6 Disease Active U nivers deficiency deficiency 1-27 it y of 00:00: [place] [facility] Papanicola Papanicola Disease Active 2019- U nivers ou smear ou smear 0-26 ity of of cervix [place] with low with low 00 Medica l grade 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) Bacterial Bacterial Disease Active 2019-11 Uni vers vaginitis vaginitis 0-19 ity of 00:00: [place] [address] Medical Branch Candidiasi Candidiasi Disease Active 2020- U nivers s of vulva s of vulva 0-19 it y of and vagina and vagina [place] Cervical Cervical Disease Active 2019-11 Unive rs high risk high risk 0-19 ity of human human 00:00: [place] papillomav papillomav 00 Me dical irus (HPV) irus (HPV) Br anch 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 Last Assessmen t & Plan: Condition : stableNo recent mental health visit. Advised to follow upTake medicatio ns as ordered by Provider; notify Provider if you cannot take medicatio ns as ordered or are having difficult ies or side-effe cts from medicatio ns (do not stop medicatio ns without notifying Provider) . If symptoms worsen or do not improve/s tabilize, notify health care provider right away. If thoughts of harming self or others notify health care provider immediate ly &/or seek urgent/em ergent care including calling Suicide Hotline ([phone] [phone]) or 783.Follo w up in one month with Psycholog ist, Counselor , Support group, Psycholog ist/Couns elor/Supp ortGroup/ Psychiatr ist and PCP Seizures Seizures Disease Active Overview: Un alistair 6-10 Formattin ity of 00:00: g of this [place] 00 note Medical might be Branch different from the original. Last Assessmen t & Plan: Condition : stableTak e medicatio n as prescribe d.No bathing, swimming, operating dangerous machinery , climbing ladders without supervisi onNo driving unless cleared by your health care provider. Follow up in: three months Acute Acute Disease Active Overview: Univer s midline midline 6-10 Formattin ity o f low back low back 00:00: g of this [place] as pain pain 00 note Medical without without might be Branch sciatica sciatica different from the original. Last Assessmen t & Plan: Condition : stableTak e pain medicatio n as prescribe d.Practic e non-pharm acologica l pain reduction technique s/interve ntions such as, deep breathing exercises , massage, gel packs, if indicated to be safe by PCP.Monit or for worsening of back pain in combinati on with other signs and symptoms of worsening disease and see PCP as soon as possible. Follow up in: three months Constipati Constipati Disease Active Overview : Univers on on 6-10 Formattin ity of 00:00: g of this note Medical might be Branch different from the original. Last Assessmen t & Plan: Condition : stableFol low up in: three months Environmen Environmen Disease Active Overview : Univers windy and windy and 6-10 Formattin ity o f seasonal seasonal 00:00: g of this [place] as allergies allergies 00 note Medi sadie might be Branch different from the original. Last Assessmen t & Plan: Condition : stableFol low up in: three months Gastroesop Gastroesop Disease Active U nivers hageal hageal 6-10 ity of reflux reflux 00:00: [place] disease disease 00 Medical without without Branch esophagiti esophagiti s s Nausea Nausea Disease Active Univers 6-10 ity of 00:00: [place] 00 Medical Branch Nerve pain Nerve pain Disease Active Overview : Univers 6-10 Formattin ity of 00:00: g of this note Medical might be Branch different from the original. Last Assessmen t & Plan: Condition : stableFol low up in: three months Primary Primary Disease Active Overview: Univ ers insomnia insomnia 6-10 Formattin ity of 00:00: g of this 00 note Medical might be Branch different from the original. Last Assessmen t & Plan: Condition : stableFol low up in: three months Status Status Disease Active Univers post post 23 ity of nephrectom nephrectom [place] Medical [place] Pulmonary Pulmonary Disease Active Uni vers nodules nodules 12-05 ity of 00:00: [place] 00 Medical Branch Renal mass Renal mass Disease Active 2018-11 Overview : Univers -20 Formattin ity of 00:00: g of this [place] 00 note Medical might be Branch different from the original. Added automatic ally from request for surgery [id number] Angiomyoli Angiomyoli Disease Active 2018-11 Overview : Univers guevara of guevara of 1-20 Formattin ity o f both both 00:00: g of this [place] kidneys kidneys 00 note Medical might be Branch different from the original. 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 ity of of [place] of [place] [facility] Mental Mental Problem Active Univers retardatio retardatio it y of n n [place] [facility] Angiomyoli Angiomyoli Problem Active U nivers guevara of guevara of ity of kidney kidney [place] [facility] Tuberous Tuberous Problem Active Unive rs sclerosis sclerosis ity of [place] Physici ans Localz-rlt Localz-rlt Problem Active U nivers d d [place] of symptom[place] symptomati [place] c epilepsy c epilepsy Ph ysici w complx w complx ans part sz, part sz, notintrac, notintrac, w status w status Allergies, Adverse Reactions, Alerts Allergy Allergy Status Severity Reaction(s) Onset Inactive Treating Comm ents Source Name Type Date Date Clinician NO KNOWN Drug Active Univers ALLERGIE Class ity of S [place] [facility] Social History Social Habit Start Date Stop Date Quantity Comments Source History [facility] University o f Alcohol Std [place] [facility] Drinks Branch History [facility] University o f Alcohol Binge [place] [facility] al Branch Exposure to Not sure University of SARS-CoV-2 [place] [facility] (event) Branch History [facility] University o f Alcohol Comment [place] [facility] Alcohol intake 2021-08-30 2021-08-30 Lifetime University of 00:00:00 00:00:00 non-drinker [place] [facility] (finding) Branch Education 2021-05-07 2021-05-07 13 University of 00:00:00 00:00:00 [place] [facility] History SDOH 2020-01-17 2020-01-17 1 University o f Alcohol Frequency 00:00:00 00:00:00 [facility] Tobacco use and 2019-09-26 2019-09-26 Never used Universit y of exposure 00:00:00 00:00:00 [place] [facility] History SDDE 2019-09-26 2019-09-26 5 University o f Financial 00:00:00 00:00:00 [place] [facility] History SDDE Food 2019-09-26 2019-09-26 1 Univers ity of Worry 00:00:00 00:00:00 [place] [facility] History SDDE Food 2019-09-26 2019-09-26 1 Univers ity of Scarcity 00:00:00 00:00:00 [place] [facility] History [facility] 2019-09-26 2019-09-26 2 University o f Transport Med 00:00:00 00:00:00 [place] Medic al Branch History [facility] 2019-09-26 2019-09-26 2 University o f Transport Non-Med 00:00:00 00:00:00 [facility] Sex [birth year] At [birth year] Universit y of 00:00:00 00:00:00 [facility] Smoking Status Start Date Stop Date Source Never smoked tobacco (finding) U [facility] Medications Ordered Filled Start Stop Current Ordering Indication Dosage Frequency Signature Comments Components Source Medication Medication Date Date Medication? Clinician (SIG) Name Name Lamotrigine 2020-11 Yes [id number] 1{tbl} Take 1 Univers 100 mg TbDL 0-26 tablet by ity of 00:00: mouth 2 [place] [address] ([facility]) Medical times Branch daily. Lamotrigine 2020-11 Yes [id number] 1{tbl} Take 1 Univers 100 mg TbDL 0-26 tablet by ity of 00:00: mouth 2 [place] [address] (two) Medical times Branch daily. Lamotrigine 2020-11 Yes [id number] 1{tbl} Take 1 Univers 100 mg TbDL 0-26 tablet by ity of 00:00: mouth 2 [place] (two) Medical times Branch daily. medroxyPROG 2020-11- Yes [id number] 150mg Univers ESTERone 0-18 09-19 ity of (DEPO-PROVE 14:15: 14:14 [facility]) 00 :00 Medical injection Branch 150 mg medroxyPROG 2020-11- Yes [id number] 150mg Univers ESTERone 0-18 - ity of (DEPO-PROVE 14:15: 14:14 [place] [facility]) 00 :00 Medical injection Branch 150 mg medroxyPROG 2020-11- Yes [id number] 150mg Univers ESTERone 0-18 -19 ity of (DEPO-PROVE 14:15: 14:14 [place] [facility]) 00 :00 Medical injection Branch 150 mg medroxyPROG 2020-11- Yes [id number] 150mg Univers ESTERone 0-18 - ity of (DEPO-PROVE 14:15: 14:14 [place] [facility]) 00 :00 Medical injection Branch 150 mg medroxyPROG 2020-11- Yes [id number] 150mg Univers ESTERone 0-18 - ity of (DEPO-PROVE 14:15: 14:14 [place] [facility]) 00 :00 Medical injection Branch 150 mg medroxyPROG 2020-11- Yes [id number] 150mg Univers ESTERone 0-18 - ity of (DEPO-PROVE 14:15: 14:14 [place] [facility]) 00 :00 Medical injection Branch 150 mg medroxyPROG 2020-11- Yes [id number] 150mg Univers ESTERone 0-18 - ity of (DEPO-PROVE 14:15: 14:14 [facility]) 00 :00 Medical injection Branch 150 mg ampicillin 2020-11 Yes [id number] 500mg Take 1 Univers 500 mg 0-18 capsule by ity of capsule 00:00: mouth [place] 00 every 6 Medical (six) Branch hours. fluconazole 2020-11 Yes [id number] Take 1 Univers (DIFLUCAN) 0-18 tablet by ity of 150 mg 00:00: mouth now, [place] tablet 00 and take 1 Medical tablet by Branch mouth in 1 week. albuterol 2020-11 Yes [id number] INHALE 1 Univers (PROAIR 0-18 TO 2 PUFFS ity of HFA) 90 00:00: BY MOUTH [place] mcg/actuati 00 EVERY 4 TO Me dical on inhaler 6 HOURS Bra [facility] NEEDED ampicillin 2020-11 Yes [id number] 500mg Take 1 Univers 500 mg 0-18 capsule by ity of capsule 00:00: mouth [place] 00 every 6 Medical (six) Branch hours. fluconazole 2020-11 Yes [id number] Take 1 Univers (DIFLUCAN) 0-18 tablet by ity of 150 mg 00:00: mouth now, [place] tablet 00 and take 1 Medical tablet by Branch mouth in 1 week. albuterol 2020-11 Yes [id number] INHALE 1 Univers (PROAIR 0-18 TO 2 PUFFS ity of HFA) 90 00:00: BY MOUTH [place] mcg/actuati 00 EVERY 4 TO Me dical on inhaler 6 HOURS Bra nch NEEDED ampicillin 2020-11 Yes [id number] 500mg Take 1 Univers 500 mg 0-18 capsule by ity of capsule 00:00: mouth [place] 00 every 6 Medical (six) Branch hours. fluconazole 2020-11 Yes [id number] Take 1 Univers (DIFLUCAN) 0-18 tablet by ity of 150 mg 00:00: mouth now, [place] tablet 00 and take 1 Medical tablet by Branch mouth in 1 week. albuterol 2020-11 Yes [id number] INHALE 1 Univers (PROAIR 0-18 TO 2 PUFFS ity of HFA) 90 00:00: BY MOUTH [place] mcg/actuati 00 EVERY 4 TO Me dical on inhaler 6 HOURS Bra nch NEEDED ampicillin 2020-11 Yes [id number] 500mg Take 1 Univers 500 mg 0-18 capsule by ity of capsule 00:00: mouth [place] 00 every 6 Medical (six) Branch hours. fluconazole 2020-11 Yes [id number] Take 1 Univers (DIFLUCAN) 0-18 tablet by ity of 150 mg 00:00: mouth now, [place] tablet 00 and take 1 Medical tablet by Branch mouth in 1 week. albuterol 2020-11 Yes [id number] INHALE 1 Univers (PROAIR 0-18 TO 2 PUFFS ity of HFA) 90 00:00: BY MOUTH [place] mcg/actuati 00 EVERY 4 TO Me dical on inhaler 6 HOURS Bra nch NEEDED ampicillin 2020-11 Yes [id number] 500mg Take 1 Univers 500 mg 0-18 capsule by ity of capsule 00:00: mouth [place] 00 every 6 Medical (six) Branch hours. fluconazole 2020-11 Yes [id number] Take 1 Univers (DIFLUCAN) 0-18 tablet by ity of 150 mg 00:00: mouth now, [place] tablet 00 and take 1 Medical tablet by Branch mouth in 1 week. albuterol 2020-11 Yes [id number] INHALE 1 Univers (PROAIR 0-18 TO 2 PUFFS ity of HFA) 90 00:00: BY MOUTH [place] mcg/actuati 00 EVERY 4 TO Me dical on inhaler 6 HOURS Bra nch NEEDED ampicillin 2020-11 Yes [id number] 500mg Take 1 Univers 500 mg 0-18 capsule by ity of capsule 00:00: mouth [place] 00 every 6 Medical (six) Branch hours. fluconazole 2020-11 Yes [id number] Take 1 Univers (DIFLUCAN) 0-18 tablet by ity of 150 mg 00:00: mouth now, [place] tablet 00 and take 1 Medical tablet by Branch mouth in 1 week. albuterol 2020-11 Yes [id number] INHALE 1 Univers (PROAIR 0-18 TO 2 PUFFS ity of HFA) 90 00:00: BY MOUTH [place] mcg/actuati 00 EVERY 4 TO Me dical on inhaler 6 HOURS Bra nch NEEDED ampicillin 2020-11 Yes [id number] 500mg Take 1 Univers 500 mg 0-18 capsule by ity of capsule 00:00: mouth [place] 00 every 6 Medical (six) Branch hours. fluconazole 2020-11 Yes [id number] Take 1 Univers (DIFLUCAN) 0-18 tablet by ity of 150 mg 00:00: mouth now, [place] tablet 00 and take 1 Medical tablet by Branch mouth in 1 week. albuterol 2020-11 Yes [id number] INHALE 1 Univers (PROAIR 0-18 TO 2 PUFFS ity of HFA) 90 00:00: BY MOUTH [place] mcg/actuati 00 EVERY 4 TO Me dical on inhaler 6 HOURS Bra nch NEEDED magnesium 2020-11 Yes Take by [facility] ers oxide 400 0-04 mouth. ity of mg 12:41: Take 1 [place] magnesium 30 tablet by Medic al Tab mouth as Branch needed for leg Cramps once a day medroxyPROG 2020-11 Yes 150mg 150 mg by Univers ESTERone 0-04 Intramuscu ity o f 150 mg/mL 12:41: lar route [place] as injection 30 every 3 Medical (three) Branch months. magnesium 2020-11 Yes Take by [facility] ers oxide 400 0-04 mouth. ity of mg 12:41: Take 1 [place] magnesium 30 tablet by Medic al Tab mouth as Branch needed for leg Cramps once a day medroxyPROG 2020-11 Yes 150mg 150 mg by Univers ESTERone 0-04 Intramuscu ity o f 150 mg/mL 12:41: lar route [place] as injection 30 every 3 Medical (three) Branch months. magnesium 2020-11 Yes Take by Univ ers oxide 400 0-04 mouth. ity of mg 12:41: Take 1 [place] magnesium 30 tablet by Medic al Tab mouth as Branch needed for leg Cramps once a day medroxyPROG 2020-11 Yes 150mg 150 mg by Univers ESTERone 0-04 Intramuscu ity o f 150 mg/mL 12:41: lar route [place] as injection 30 every 3 Medical (three) Branch months. magnesium 2020-11 Yes Take by Univ ers oxide 400 0-04 mouth. ity of mg 12:41: Take 1 [place] magnesium 30 tablet by Medic al Tab mouth as Branch needed for leg Cramps once a day medroxyPROG 2020-11 Yes 150mg 150 mg by Univers ESTERone 0-04 Intramuscu ity o f 150 mg/mL 12:41: lar route [place] as injection 30 every 3 Medical (three) Branch months. magnesium 2020-11 Yes Take by Univ ers oxide 400 0-04 mouth. ity of mg 12:41: Take 1 [place] magnesium 30 tablet by Medic al Tab mouth as Branch needed for leg Cramps once a day medroxyPROG 2020-11 Yes 150mg 150 mg by Univers ESTERone 0-04 Intramuscu ity o f 150 mg/mL 12:41: lar route [place] as injection 30 every 3 Medical (three) Branch months. magnesium 2020-11 Yes Take by Univ ers oxide 400 0-04 mouth. ity of mg 12:41: Take 1 [place] magnesium 30 tablet by Medic al Tab mouth as Branch needed for leg Cramps once a day medroxyPROG 2020-11 Yes 150mg 150 mg by Univers ESTERone 0-04 Intramuscu ity o f 150 mg/mL 12:41: lar route [place] as injection 30 every 3 Medical (three) Branch months. magnesium 2020-11 Yes Take by Univ ers oxide 400 0-04 mouth. ity of mg 12:41: Take 1 [place] magnesium 30 tablet by Medic al Tab mouth as Branch needed for leg Cramps once a day medroxyPROG 2020-11 Yes 150mg 150 mg by Univers ESTERone 0-04 Intramuscu ity o f 150 mg/mL 12:41: lar route [place] as injection 30 every 3 Medical (three) Branch months. pantoprazol Yes [id number] 40mg Take 1 Univers e 40 mg EC 9-16 tablet by ity of tablet 00:00: mouth [place] 00 daily. Medical Branch pantoprazol Yes [id number] 40mg Take 1 Univers e 40 mg EC 9-16 tablet by ity of tablet 00:00: mouth [place] 00 daily. Medical Branch pantoprazol Yes [id number] 40mg Take 1 Univers e 40 mg EC 9-16 tablet by ity of tablet 00:00: mouth [place] 00 daily. Medical Branch pantoprazol Yes [id number] 40mg Take 1 Univers e 40 mg EC 9-16 tablet by ity of tablet 00:00: mouth [place] 00 daily. Medical Branch pantoprazol Yes [id number] 40mg Take 1 Univers e 40 mg EC 9-16 tablet by ity of tablet 00:00: mouth [place] 00 daily. Medical Branch pantoprazol Yes [id number] 40mg Take 1 Univers e 40 mg EC 9-16 tablet by ity of tablet 00:00: mouth [place] 00 daily. Medical Branch pantoprazol Yes [id number] 40mg Take 1 Univers e 40 mg EC 9-16 tablet by ity of tablet 00:00: mouth [place] 00 daily. Medical Branch benzocaine- Yes [id number] 1{lozen Apply 1 Univers menthoL 9-13 ge} Lozenge as ity of (CEPACOL 00:00: directed [place] INSTAMAX 00 every 6 Medical SORE (six) Branch THROAT) hours as 15-20 mg needed for Lozg Other (Sore throat). benzocaine- Yes [id number] 1{lozen Apply 1 Univers menthoL 9-13 ge} Lozenge as ity of (CEPACOL 00:00: directed [place] INSTAMAX 00 every 6 Medical SORE (six) Branch THROAT) hours as 15-20 mg needed for Lozg Other (Sore throat). benzocaine- Yes [id number] 1{lozen Apply 1 Univers menthoL 9-13 ge} Lozenge as ity of (CEPACOL 00:00: directed [place] INSTAMAX 00 every 6 Medical SORE (six) Branch THROAT) hours as 15-20 mg needed for Lozg Other (Sore throat). benzocaine- Yes [id number] 1{lozen Apply 1 Univers menthoL 9-13 ge} Lozenge as ity of (CEPACOL 00:00: directed [place] INSTAMAX 00 every 6 Medical SORE (six) Branch THROAT) hours as 15-20 mg needed for Lozg Other (Sore throat). benzocaine- Yes [id number] 1{lozen Apply 1 Univers menthoL 9-13 ge} Lozenge as ity of (CEPACOL 00:00: directed [place] INSTAMAX 00 every 6 Medical SORE (six) Branch THROAT) hours as 15-20 mg needed for Lozg Other (Sore throat). benzocaine- Yes [id number] 1{lozen Apply 1 Univers menthoL 9-13 ge} Lozenge as ity of (CEPACOL 00:00: directed [place] INSTAMAX 00 every 6 Medical SORE (six) Branch THROAT) hours as 15-20 mg needed for Lozg Other (Sore throat). benzocaine- Yes [id number] 1{lozen Apply 1 Univers menthoL 9-13 ge} Lozenge as ity of (CEPACOL 00:00: directed [place] INSTAMAX 00 every 6 Medical SORE (six) Branch THROAT) hours as 15-20 mg needed for Lozg Other (Sore throat). busPIRone Yes [id number] 7.5mg Take 0.5-1 Univers 15 mg 5-17 tablets by ity of tablet 00:00: mouth 2 [place] 00 (two) Medical times Branch daily. escitalopra Yes [id number] 20mg Take 1 Univers m oxalate 5-17 tablet by ity o f 20 mg 00:00: mouth [place] tablet 00 daily. Medical Branch Lamotrigine Yes [id number] 1{tbl} Take 1 Univers 100 mg TbDL 5-17 tablet by ity of 00:00: mouth 2 [place] 00 (two) Medical times Branch daily. busPIRone Yes [id number] 7.5mg Take 0.5-1 Univers 15 mg 5-17 tablets by ity of tablet 00:00: mouth 2 [place] 00 (two) Medical times Branch daily. escitalopra Yes [id number] 20mg Take 1 Univers m oxalate 5-17 tablet by ity o f 20 mg 00:00: mouth [place] tablet 00 daily. Medical Branch Lamotrigine Yes [id number] 1{tbl} Take 1 Univers 100 mg TbDL 5-17 tablet by ity of 00:00: mouth 2 [place] (two) Medical times Branch daily. busPIRone Yes [id number] 7.5mg Take 0.5-1 Univers 15 mg 5-17 tablets by ity of tablet 00:00: mouth 2 [place] 00 (two) Medical times Branch daily. escitalopra Yes [id number] 20mg Take 1 Univers m oxalate 5-17 tablet by ity o f 20 mg 00:00: mouth [place] tablet 00 daily. Medical Branch Lamotrigine Yes [id number] 1{tbl} Take 1 Univers 100 mg TbDL 5-17 tablet by ity of 00:00: mouth 2 (two) Medical times Branch daily. busPIRone Yes [id number] 7.5mg Take 0.5-1 Univers 15 mg 5-17 tablets by ity of tablet 00:00: mouth 2 [place] 00 (two) Medical times Branch daily. escitalopra Yes [id number] 20mg Take 1 Univers m oxalate 5-17 tablet by ity o f 20 mg 00:00: mouth [place] tablet 00 daily. Medical Branch Lamotrigine Yes [id number] 1{tbl} Take 1 Univers 100 mg TbDL 5-17 tablet by ity of 00:00: mouth 2 [place] 00 (two) Medical times Branch daily. busPIRone Yes [id number] 7.5mg Take 0.5-1 Univers 15 mg 5-17 tablets by ity of tablet 00:00: mouth 2 [place] 00 (two) Medical times Branch daily. escitalopra Yes [id number] 20mg Take 1 Univers m oxalate 5-17 tablet by ity o f 20 mg 00:00: mouth [place] tablet 00 daily. Medical Branch busPIRone Yes [id number] 7.5mg Take 0.5-1 Univers 15 mg 5-17 tablets by ity of tablet 00:00: mouth 2 [place] 00 (two) Medical times Branch daily. escitalopra Yes [id number] 20mg Take 1 Univers m oxalate 5-17 tablet by ity o f 20 mg 00:00: mouth [place] tablet 00 daily. Medical Branch busPIRone Yes [id number] 7.5mg Take 0.5-1 Univers 15 mg 5-17 tablets by ity of tablet 00:00: mouth 2 [place] 00 (two) Medical times Branch daily. escitalopra Yes [id number] 20mg Take 1 Univers m oxalate 5-17 tablet by ity o f 20 mg 00:00: mouth [place] tablet 00 daily. Medical Branch Lamotrigine 2021- No [id number] 1{tbl} Take 1 Univers 100 mg TbDL 5-17 10-25 tablet by it y of 00:00: 00:00 mouth 2 [place] 00 :00 (two) Medical times Branch daily. ondansetron Yes [id number] 4mg Take 1 Univers 4 mg 3-29 tablet by ity of disintegrat 00:00: mouth [place] ing tablet 00 every 8 Medica l (eight) Branch hours as needed for Nausea and Vomiting (N/V). ondansetron Yes [id number] 4mg Take 1 Univers 4 mg 3-29 tablet by ity of disintegrat 00:00: mouth [place] ing tablet 00 every 8 Medica l (eight) Branch hours as needed for Nausea and Vomiting (N/V). ondansetron Yes [id number] 4mg Take 1 Univers 4 mg 3-29 tablet by ity of disintegrat 00:00: mouth [place] ing tablet 00 every 8 Medica l (eight) Branch hours as needed for Nausea and Vomiting (N/V). ondansetron Yes [id number] 4mg Take 1 Univers 4 mg 3-29 tablet by ity of disintegrat 00:00: mouth [place] ing tablet 00 every 8 Medica l (eight) Branch hours as needed for Nausea and Vomiting (N/V). ondansetron Yes [id number] 4mg Take 1 Univers 4 mg 3-29 tablet by ity of disintegrat 00:00: mouth [place] ing tablet 00 every 8 Medica l (eight) Branch hours as needed for Nausea and Vomiting (N/V). ondansetron Yes [id number] 4mg Take 1 Univers 4 mg 3-29 tablet by ity of disintegrat 00:00: mouth [place] ing tablet 00 every 8 Medica l (eight) Branch hours as needed for Nausea and Vomiting (N/V). ondansetron Yes [id number] 4mg Take 1 Univers 4 mg 3-29 tablet by ity of disintegrat 00:00: mouth [place] ing tablet 00 every 8 Medica l (eight) Branch hours as needed for Nausea and Vomiting (N/V). pyridoxine, Yes [id number] 50mg Take 1 Univers VITAMIN 1-27 tablet by ity of B-6, 50 mg 00:00: mouth [place] tablet 00 daily. Medical Branch Cholecalcif Yes [id number] 2000U Take 1 Univers fredy, 1-27 capsule by ity of Vitamin D3, 00:00: mouth [place] (D3-1999) 00 daily. Medical 50 mcg Take with Branch (2,000 food. unit) capsule pyridoxine, 0 Yes [id number] 50mg Take 1 Univers VITAMIN 1-27 tablet by ity of B-6, 50 mg 00:00: mouth [place] tablet 00 daily. Medical Branch Cholecalcif Yes [id number] 2000U Take 1 Univers fredy, 1-27 capsule by ity of Vitamin D3, 00:00: mouth [place] (D3-1999) 00 daily. Medical 50 mcg Take with Branch (2,000 food. unit) capsule pyridoxine, 0 Yes [id number] 50mg Take 1 Univers VITAMIN 1-27 tablet by ity of B-6, 50 mg 00:00: mouth [place] tablet 00 daily. Medical Branch Cholecalcif Yes [id number] 2000U Take 1 Univers fredy, 1-27 capsule by ity of Vitamin D3, 00:00: mouth [place] (D3-1999) 00 daily. Medical 50 mcg Take with Branch (2,000 food. unit) capsule pyridoxine, Yes [id number] 50mg Take 1 Univers VITAMIN 1-27 tablet by ity of B-6, 50 mg 00:00: mouth [place] tablet 00 daily. Medical Branch Cholecalcif Yes [id number] 2000U Take 1 Univers fredy, 1-27 capsule by ity of Vitamin D3, 00:00: mouth [place] (D3-1999) 00 daily. Medical 50 mcg Take with Branch (2,000 food. unit) capsule pyridoxine, Yes [id number] 50mg Take 1 Univers VITAMIN 1-27 tablet by ity of B-6, 50 mg 00:00: mouth [place] tablet 00 daily. Medical Branch Cholecalcif Yes [id number] 2000U Take 1 Univers fredy, 1-27 capsule by ity of Vitamin D3, 00:00: mouth [place] (D3-1999) 00 daily. Medical 50 mcg Take with Branch (2,000 food. unit) capsule pyridoxine, Yes [id number] 50mg Take 1 Univers VITAMIN 1-27 tablet by ity of B-6, 50 mg 00:00: mouth [place] tablet 00 daily. Medical Branch Cholecalcif Yes [id number] 2000U Take 1 Univers fredy, 1-27 capsule by ity of Vitamin D3, 00:00: mouth [place] (D3-1999) 00 daily. Medical 50 mcg Take with Branch (2,000 food. unit) capsule pyridoxine, Yes [id number] 50mg Take 1 Univers VITAMIN 1-27 tablet by ity of B-6, 50 mg 00:00: mouth [place] tablet 00 daily. Medical Branch Cholecalcif Yes [id number] 2000U Take 1 Univers fredy, 1-27 capsule by ity of Vitamin D3, 00:00: mouth [place] (D3-1999) 00 daily. Medical 50 mcg Take with Branch (2,000 food. unit) capsule pramipexole Yes [id number] .125mg Take 1 Univers (MIRAPEX) 1-22 tablet by ity o f 0.125 mg 00:00: mouth at [place] tablet 00 bedtime. Medical Branch pramipexole Yes [id number] .125mg Take 1 Univers (MIRAPEX) 1-22 tablet by ity o f 0.125 mg 00:00: mouth at [place] tablet 00 bedtime. Medical Branch pramipexole Yes [id number] .125mg Take 1 Univers (MIRAPEX) 1-22 tablet by ity o f 0.125 mg 00:00: mouth at [place] tablet 00 bedtime. Medical Branch pramipexole Yes [id number] .125mg Take 1 Univers (MIRAPEX) 1-22 tablet by ity o f 0.125 mg 00:00: mouth at [place] tablet 00 bedtime. Medical Branch pramipexole Yes [id number] .125mg Take 1 Univers (MIRAPEX) 1-22 tablet by ity o f 0.125 mg 00:00: mouth at [place] tablet 00 bedtime. Medical Branch pramipexole Yes [id number] .125mg Take 1 Univers (MIRAPEX) 1-22 tablet by ity o f 0.125 mg 00:00: mouth at [place] tablet 00 bedtime. Medical Branch pramipexole Yes [id number] .125mg Take 1 Univers (MIRAPEX) 1-22 tablet by ity o f 0.125 mg 00:00: mouth at [place] tablet 00 bedtime. Medical Branch PROAIR HFA 2020- No INHALE 1 Un alistair 90 9-27 10-18 TO 2 PUFFS ity of mcg/actuati 00:00: 00:00 [place] MOUTH [place] inhaler 00 :00 EVERY 4 TO Med ical 6 HOURS Branch NEEDED FOR COUGH PROAIR HFA 2020- No INHALE 1 Un alistair 90 9-27 10-18 TO 2 PUFFS ity of mcg/actuati 00:00: 00:00 [place] MOUTH [place] inhaler 00 :00 EVERY 4 TO Med ical 6 HOURS Branch NEEDED FOR COUGH Magnesium Magnesium 2019- No Na Bates [address] [facility] Oxide Oxide 9-10 10-10 as needed [facility] for leg [facility] 00 :00 cramps l Outpati ent Clinics Clonazepam Clonazepam 2018-11 Yes Na Bates [address] [facility] 2-16 on the [facility] - 00:00: tongue and [facility] 00 allow to l dissolve Outpati as needed ent for acute Clinics panic attacks GIANVI, Yes 1{tbl} Take 1 Un alistair 3-0.02 mg 1-12 tablet by ity o f per tablet 00:00: mouth [place] 00 daily. [facility] Er HUNTER, Yes 1{tbl} Take 1 Un alistair 3-0.02 mg 1-12 tablet by ity o f per tablet 00:00: mouth [place] 00 daily. [facility] Er HUNTER, Yes 1{tbl} Take 1 Un alistair 3-0.02 mg 1-12 tablet by ity o f per tablet 00:00: mouth [place] 00 daily. [facility] Er HUNTER, Yes 1{tbl} Take 1 Un alistair 3-0.02 mg 1-12 tablet by ity o f per tablet 00:00: mouth [place] 00 daily. [facility] Er HUNTER, Yes 1{tbl} Take 1 Un alistair 3-0.02 mg 1-12 tablet by ity o f per tablet 00:00: mouth [place] 00 daily. [facility] Er HUNTER, Yes 1{tbl} Take 1 Un alistair 3-0.02 mg 1-12 tablet by ity o f per tablet 00:00: mouth [place] 00 daily. [facility] Er HUNTER, Yes 1{tbl} Take 1 Un alistair 3-0.02 mg 1-12 tablet by ity o f per tablet 00:00: mouth [place] 00 daily. [facility] Er Afinitor 5 Afinitor 5 Yes ALFREDO TAKE 1 Univers MG Oral MG Oral 8-22 EUGENE TABLET BY i ty of Tablet Tablet 14:39: M.D. MOUTH [place] 34 DAILY Physici ans lamoTRIgine lamoTRIgine 2014-11 Yes ALONZO WAGNER Q0.5D TAKE 1 Univers 100 MG Oral 100 MG Oral 0-13 CHRISTIAN TABLET ity of Tablet Tablet 00:00: M.D. TWICE [place] 00 DAILY Physici ans Hunter Harrison Yes Na Bates [address] [facility] Clinics Cetirizine Cetirizine Yes Na Bates take [address] [facility] HCl HCl tablet by [facility] - mouth [facility] every day l as needed Outpati for ent allergies Clinics Lamictal Lamictal Yes Na Bates [address] [facility] Ondansetron Ondansetron Yes Na [facility] as [facility] HCl HCl directed [facility] Lexapro Lexapro Yes Na Bates [address] [facility] Quetiapine Quetiapine Yes Na Bates TAKE [address] [facility] Fumarate Fumarate TABLET BY Mary kes - MOUTH AT [facility] BEDTIME l [facility] Afinitor Afinitor Yes Na Bates [address] [facility] Pantoprazol Pantoprazol Yes Na Bates [address] [facility] e Sodium e Sodium [facility] ent Clinics Immunizations Ordered Filled Immunization Date Status Comments [facility] e Immunization Name Name Influenza Virus 2021-08-30 Completed Universit y of Vaccine Quad IM, 00:00:00 [place] Me dical Preserv and ABX Branch Free 2-64 YRS Influenza Virus 2021-08-30 Completed Universit y of Vaccine Quad IM, 00:00:00 [place] Me dical Preserv and ABX Branch Free 2-64 YRS Influenza Virus 2021-08-30 Completed Universit y of Vaccine Quad IM, 00:00:00 [place] Me dical Preserv and ABX Branch Free 6 MO-64 YRS Influenza Virus 2021-08-30 Completed Universit y of Vaccine Quad IM, 00:00:00 [place] Me dical Preserv and ABX Branch Free 6 MO-64 YRS Influenza Virus 2021-08-30 Completed Universit y of Vaccine Quad IM, 00:00:00 [place] Me dical Preserv and ABX Branch Free 6 MO-64 YRS Influenza Virus 2021-08-30 Completed Universit y of Vaccine Quad IM, 00:00:00 [place] Me dical Preserv and ABX Branch Free 6 MO-64 YRS Influenza Virus 2021-08-30 Completed Universit y of Vaccine Quad IM, 00:00:00 [place] Me dical Preserv and ABX Branch Free 6 MO-64 YRS SARS-COV-2 COVID-19 2021-02-23 Completed Unive rsity of PFIZER VACCINE 00:00:00 [facility]ie Branch SARS-COV-2 COVID-19 2021-02-23 Completed Unive rsity of PFIZER VACCINE 00:00:00 [facility] SARS-COV-2 COVID-19 2021-02-23 Completed Unive rsity of PFIZER VACCINE 00:00:00 [facility] Branch SARS-COV-2 COVID-19 2021-02-23 Completed Unive rsity of PFIZER VACCINE 00:00:00 [facility] SARS-COV-2 COVID-19 2021-02-23 Completed Unive rsity of PFIZER VACCINE 00:00:00 [facility] Branch SARS-COV-2 COVID-19 2021-02-23 Completed Unive rsity of PFIZER VACCINE 00:00:00 [facility] SARS-COV-2 COVID-19 2021-02-23 Completed Unive rsity of PFIZER VACCINE 00:00:00 [facility] SARS-COV-2 COVID-19 2021-02-02 Completed Unive rsity of PFIZER VACCINE 00:00:00 [facility] SARS-COV-2 COVID-19 2021-02-02 Completed Unive rsity of PFIZER VACCINE 00:00:00 [facility] SARS-COV-2 COVID-19 2021-02-02 Completed Unive rsity of PFIZER VACCINE 00:00:00 [facility] SARS-COV-2 COVID-19 2021-02-02 Completed Unive rsity of PFIZER VACCINE 00:00:00 [facility] SARS-COV-2 COVID-19 2021-02-02 Completed Unive rsity of PFIZER VACCINE 00:00:00 [facility] SARS-COV-2 COVID-19 2021-02-02 Completed Unive rsity of PFIZER VACCINE 00:00:00 [facility] SARS-COV-2 COVID-19 2021-02-02 Completed Unive rsity of PFIZER VACCINE 00:00:00 [facility] Influenza Virus 2020-08-27 Completed Universit y of Vaccine Quad .5 mL 00:00:00 [place] [facility] IM 6+ MO Branch Influenza Virus 2020-08-27 Completed Universit y of Vaccine Quad .5 mL 00:00:00 [place] [facility] IM 6+ MO Branch Influenza Virus 2020-08-27 Completed Universit y of Vaccine Quad .5 mL 00:00:00 [place] [facility] IM 6+ MO Branch Influenza Virus 2020-08-27 Completed Universit y of Vaccine Quad .5 mL 00:00:00 [facility] 6+ MO Branch Influenza Virus 2020-08-27 Completed Universit y of Vaccine Quad .5 mL 00:00:00 [facility] 6+ MO Branch Influenza Virus 2020-08-27 Completed Universit y of Vaccine Quad .5 mL 00:00:00 [facility] 6+ MO Branch Influenza Virus 2020-08-27 Completed Universit y of Vaccine Quad .5 mL 00:00:00 [facility] 6+ MO Branch Influenza Virus 2019-10-01 Completed Universit y of Vaccine Quad .5 mL 00:00:00 [facility] 6+ MO Branch Influenza Virus 2019-10-01 Completed Universit y of Vaccine Quad .5 mL 00:00:00 [facility] 6+ MO Branch Influenza Virus 2019-10-01 Completed Universit y of Vaccine Quad .5 mL 00:00:00 [facility] 6+ MO Branch Influenza Virus 2019-10-01 Completed Universit y of Vaccine Quad .5 mL 00:00:00 [facility] 6+ MO Branch Influenza Virus 2019-10-01 Completed Universit y of Vaccine Quad .5 mL 00:00:00 [facility] 6+ MO Branch Influenza Virus 2019-10-01 Completed Universit y of Vaccine Quad .5 mL 00:00:00 [facility] 6+ MO Branch Influenza Virus 2019-10-01 Completed Universit y of Vaccine Quad .5 mL 00:00:00 [place] [address]+ MO [facility] Afluria single dose Afluria single dose 2019-08-[address] [facility] - 00:[facility]:00 [facility] Flucelvax - single Flucelvax - single 2018-10-[address] [facility] - dose syringe dose syringe 00:00:00 [facility] Vital Signs Vital Name Observation Time Observation Value Comments Source Systolic blood 2021-08-30 15:15:00 131 mm[Hg] Univer sity of pressure [facility] Diastolic blood 2021-08-30 15:15:00 75 mm[Hg] Unive rsity of pressure [facility] Heart rate 2021-08-30 15:15:00 77 /min [facility] Body temperature 2021-08-30 15:15:00 36.83 [facility] Body height 2021-08-30 15:15:00 154.9 cm [facility] Body weight 2021-08-30 15:15:00 79.379 kg Universi [facility] BMI 2021-08-30 15:15:00 33.07 kg/m2 [facility] Oxygen saturation in 2021-08-30 15:15:00 99 /min [facility] Arterial blood by [facility] Pulse oximetry Branch BP Systolic 2018-05-01 10:10:00 109 mm[Hg] [facility] s BP Diastolic 2018-05-01 10:10:00 76 mm[Hg] [facility] s Height 2018-05-01 10:10:00 154 cm [facility] Phys[facility] s Weight 2018-05-01 10:10:00 67.7 kg [facility] Physician s Body Mass Index 2018-05-01 10:10:00 28.55 [facility] 2018-05-01 10:10:00 96.5 [degF] [facility] Physician s Heart Rate 2018-05-01 10:10:00 91 /min [facility] Physician s Head Circumference 2018-05-01 10:10:00 54.7 cm [facility] Procedures Procedure Date / Time Performing Clinician Source Performed EKG w/Rhythm Strip 2018-04-17 00:00:00 [facility] Physicians [QLH] CBC (INCLUDES 2018-04-17 00:00:00 [facility] DIFF/PLT) Physicians [QLH] CMP W/EGFR 2018-04-17 00:00:00 [facility] Physicians [Q] EVEROLIMUS, BLOOD 2018-04-17 00:00:00 [facility] Physicians [QLH] LIPID PANEL 2018-04-17 00:00:00 [facility] Physicians [QLH] PHOSPHATE ( 2018-04-17 00:00:00 [facility] PHOSPHORUS) Physicians [QLH] PTH, INTACT 2018-04-17 00:00:00 [facility] (WITHOUT CALCIUM) Physicians [QLH] LAMOTRIGINE 2018-04-17 00:00:00 [facility] Physicians MRI Brain w/wo contrast 2018-04-17 00:00:00 [facility] [id number] Abdomen w/wo 2018-04-17 00:00:00 [facility] [place] contrast [id number] Physicians Encounters Start End Encounter Admission Attending Care Care Encounter Source Date/Time Date/Time Type Type Clinicians Facility Department ID 2021-09-13 Outpatient R ISAIAHAkilahPEGGY [facility] GIE [id number] Univers 23:49:41 GILDA PEGGY i ty of [facility] 2021-09-[address] [facility] [id number] Univers 04:00:36 ity [facility] 2021-09-[address] [facility] [id number] Univers 09:20:27 ity of [facility] 2021-09-[address] [facility] [id number] Univers 12:17:27 ity [facility] 2021-09-[address] [facility] [id number] Univers 06:09:58 ity [facility] 2021-09-[address] [facility] [id number] Univers 19:00:01 ity [facility] 2022-01-27 2022-01-27 Outpatient R [facility] [id number] Univers 13:00:00 13:00:00 [id number] ity [facility] 2022-01-27 2022-01-27 Outpatient R MAHNAZ, [facility] [id number] Univers 13:00:00 13:00:00 DELILAH ity [facility] 2021-12-24 2021-12-24 Outpatient R SABRINA WOOTEN [facility] [id number] Univers 09:20:00 09:20:00 [id number] ity [facility] 2021-12-16 2021-12-16 Outpatient R ELICEO [facility] [id number] Univers 07:45:00 07:45:00 ROSPOONAMNDA [id number] ity o [facility] 2021-11-22 2021-11-22 Outpatient R AKINKAVEH, [facility] [id number] Univers 09:15:00 09:15:00 ALBERTA [id number] ity o f [facility] 2021-11-22 2021-11-22 Outpatient R AKINSIPE, [facility] [id number] Univers 09:15:00 09:15:00 ALBERTA ity o [facility] 2021-10-12 2021-10-12 Outpatient R JOSE CARLOS [facility] [id number] Univers 09:00:00 09:00:00 BILAL [id number] ity [facility] 2021-09-30 2021-09-30 Outpatient R DIANA [facility] [id number] Univers 11:00:00 11:00:00 WONDIFUL [id number] ity o f [facility] 2021-09-15 2021-09-15 [facility]phone [facility] [id number] Univers 00:00:00 00:00:00 Wondiful A HEALTH [id number] ity of [place] [id number] Jerome as LAN?BLEA [phone] [address] MEDICAL OFFICE [facility] 2021-09-09 2021-09-09 [facility] [id number] Univers 15:00:00 15:00:00 ALBERTA [id number] ity o f [facility] 2021-09-09 2021-09-09 [facility] [id number] Univers 15:00:00 15:00:00 ALBERTA ity o [facility] 2021-09-09 2021-09-09 Outpatient R [facility] [id number] Univers 14:30:00 14:30:00 BILAL ity [facility] 2021-09-09 2021-09-09 Telephone [facility] [id number] Univers 00:00:00 00:00:00 Wondiful A HEALTH [id number] ity of [place] [id number] Jerome as LAN?BLEA [phone] [facility] [address] MEDICAL OFFICE BUILDING 2021-09-06 2021-09-06 Refill [facility] [id number] Univers 00:00:00 00:00:00 Wondiful A Health [id number] ity of [place] [id number] Jerome as Professio [phone] [address] Office [address] 2021-09-02 2021-09-02 Telephone [facility] [id number] Univers 00:00:00 00:00:00 Pritesh Haines INTEGRITY ANALYST [id number] it y of [facility] [id number] Jerome as MATERNAL [phone] Med ical & CHILD [address] [facility] 2021-09-01 2021-09-01 Ancillary Connie Huddleston [facility] 1.2.8 [id number] Univers 13:02:05 13:47:05 Visit Jimmy [place] [id number] ity [facility] [id number] [place] Profess[place] [phone] Il dical jagdeep 145 [facility] 2021-09-01 2021-09-01 Outpatient R [facility] [id number] Univers 13:00:00 13:00:00 [id number] [facility] 2021-08-30 2021-08-30 Office [facility] [id number] Univers 09:57:19 11:01:49 Visit [facility] [id number] it y of [place] [id number] Jerome as Lan?Blea [phone] Il dical maritzaey 044 [facility] Office [facility] 2021-08-30 2021-08-30 Outpatient [facility] [id number] Univers 08:30:00 08:30:00 PRITESH [id number] ity [facility] 2021-08-30 2021-08-30 Outpatient [facility] [id number] Univers 08:30:00 08:30:00 [facility] 2021-08-[facility] 2021-08-18 Outpatient R [facility] [id number] Univers 08:45:00 08:45:00 [id number] [facility] 2021-08-18 2021-08-18 [facility] [id number] Univers 08:45:00 08:45:00 JIMMY [facility] 2021-08-14 2021-08-14 Outpatient R [facility] [id number] Univers 09:15:00 09:15:00 [id number] ity [facility] 2021-08-14 2021-08-14 Outpatient R PEGGY VO [facility] [id number] Univers 09:15:00 09:15:00 PEGGY VO [facility] 2021-08-13 2021-08-[address] [facility] [id number] Univers 10:30:00 10:30:00 [id number] ity [facility] 2021-08-13 2021-08-13 Outpatient R MAHNAZ [facility] [id number] Univers 10:30:00 10:30:00 DELILAH [facility] 2021-08-11 2021-08-11 Outpatient R [facility] [id number] Univers 08:45:00 08:45:00 [id number] [facility] 2021-08-06 2021-08-06 [facility] [id number] Univers 13:00:00 13:00:00 JODIE [id number] ity o f [facility] 2021-08-06 2021-08-06 [facility] [id number] Univers 13:00:00 13:00:00 JODIE ity o f [facility] 2021-07-29 2021-07-29 Outpatient R [facility] [id number] Univers 14:00:00 14:00:00 [id number] [facility] 2021-07-29 2021-07-29 [facility] [id number] Univers 14:00:00 14:00:00 AKHIL [facility] 2021-07-26 2021-07-26 [facility] [id number] Univers 09:15:00 09:15:00 FLAVIO [id number] [facility] 2021-07-26 2021-07-26 Outpatient R JEREMIAH [facility] [id number] Univers 09:15:00 09:15:00 FLAVIO [facility] 2021-07-08 2021-07-08 Outpatient R DANIELS, [facility] [id number] Univers 10:00:00 10:00:00 FLAVIO [id number] [facility] [facility] 2021-07-08 2021-07-08 Outpatient R JEREMIAH [facility] [id number] Univers 10:00:00 10:00:00 FLAVIO [facility] 2021-07-05 2021-07-05 Outpatient R FABIOLA SWIFT [facility] [id number] Univers 10:30:00 10:30:00 [id number] [facility] 2021-07-05 2021-07-05 Outpatient R FABIOLA SWIFT [facility] [id number] Univers 00:00:00 00:00:00 [facility] 2021-06-25 2021-06-25 Outpatient R SUGARSABRINA [facility] [id number] Univers 10:20:00 10:20:00 [id number] [facility] 2021-06-25 2021-06-25 [facility] [id number] Univers 10:20:00 10:20:00 [facility] 2021-06-09 2021-06-09 Outpatient R TRACIE [facility] [id number] Univers 10:30:00 10:30:00 ASHLEY [id number] ity o f [facility] 2021-06-09 2021-06-09 Outpatient R TRACIE [facility] [id number] Univers 10:30:00 10:30:00 CHIAILYN ity o f [facility] 2021-06-03 2021-06-03 Outpatient R FLORIAN [facility] [id number] Univers 11:00:00 11:00:00 KASH [id number] [facility] 2021-06-03 2021-06-03 Outpatient R FLORIAN [facility] [id number] Univers 11:00:00 11:00:00 KASH [facility] 2021-05-18 2021-05-18 Outpatient R [facility] [id number] Univers 10:00:00 10:00:00 [id number] ity [facility] 2021-05-18 2021-05-18 Outpatient R FABIOLA SWIFT [facility] [id number] Univers 10:00:00 10:00:00 ity [facility] 2021-05-11 2021-05-11 Outpatient R [facility] [id number] Univers 18:00:00 18:00:00 [id number] ity [facility] 2021-05-11 2021-05-11 Outpatient R [facility] [id number] Univers 18:00:00 18:00:00 ity [facility] 2021-05-07 2021-05-07 Outpatient R [facility] [id number] Univers 17:20:00 17:20:00 [id number] ity [facility] 2021-05-07 2021-05-07 Outpatient R NADJA [facility] [id number] Univers 17:20:00 17:20:00 PAOLA [facility] 2021-05-07 2021-05-07 Outpatient R PJ [facility] [id number] Univers 17:15:00 17:15:00 ABUNDIO [facility] 2021-05-05 2021-05-05 Outpatient R RODRIGUEZSMOOTH FABIOLA [facility] [id number] Univers 10:00:00 10:00:00 [id number] [facility] 2021-05-05 2021-05-05 Outpatient R RODRIGUEZSMOOTH FABIOLA [facility] [id number] Univers 10:00:00 10:00:00 ity [facility] 2021-04-30 2021-04-30 Outpatient R SABRINA WOOTEN [facility] [id number] Univers 10:20:00 10:20:00 [id number] ity [facility] 2021-04-29 2021-04-29 Outpatient R [facility] [id number] Univers 08:30:00 08:30:00 [id number] ity [facility] 2021-04-23 2021-04-23 Outpatient R GIL CORTEZ [facility] [id number] Univers 10:00:00 10:00:00 GIL CORTEZ [id number] ity [facility] 2021-04-23 2021-04-23 Outpatient R GIL CORTEZ [facility] [id number] Univers 10:00:00 10:00:00 GIL CORTEZ ity [facility] 2021-04-21 2021-04-21 Outpatient R [facility] [id number] Univers 09:00:00 09:00:00 [id number] ity [facility] 2021-04-21 2021-04-21 Outpatient R [facility] [id number] Univers 09:00:00 09:00:00 ity [facility] 2021-04-16 2021-04-16 Outpatient R [facility] [id number] Univers 11:00:00 11:00:00 [id number] ity [facility] 2021-04-16 2021-04-16 Outpatient R [facility] [id number] Univers 00:00:00 00:00:00 ity [facility] 2021-04-15 2021-04-15 Outpatient FABIOLA SWIFT [facility] [id number] Univers 11:30:00 11:30:00 [id number] ity [facility] 2021-04-15 2021-04-15 Outpatient R FABIOLA SWIFT [facility] [id number] Univers 00:00:00 00:00:00 ity [facility] 2021-04-13 2021-04-13 Outpatient R [facility] [id number] Univers 15:00:00 15:00:00 [id number] ity [facility] 2021-04-13 2021-04-13 Outpatient RENATO DILL [facility] [id number] Univers 00:00:00 00:00:00 ity [facility] 2021-04-08 2021-04-08 Outpatient R FABIOLA SWIFT [facility] [id number] Univers 00:00:00 00:00:00 [id number] ity [facility] 2021-04-08 2021-04-08 Outpatient FABIOLA CHAVEZ [facility] [id number] Univers 00:00:00 00:00:00 ity of [facility] 2021-04-02 2021-04-02 Outpatient FABIOLA SWIFT [facility] [id number] Univers 10:30:00 10:30:00 [id number] ity of [facility] 2021-04-02 2021-04-02 Outpatient R FABIOLA SWIFT [facility] [id number] Univers 00:00:00 00:00:00 ity of [facility] 2021-03-29 2021-03-29 Outpatient R DIANA [facility] [id number] Univers 10:30:00 10:30:00 WONDIFUL [id number] ity o f [facility] 2021-03-29 2021-03-29 Outpatient R DIANA, [facility] [id number] Univers 10:30:00 10:30:00 WONDIFUL ity o f [facility] 2021-03-26 2021-03-[address] [facility] [id number] Univers 09:00:00 09:00:00 [id number] ity of [facility] 2021-03-26 2021-03-26 Outpatient RENATO DILL [facility] [id number] Univers 00:00:00 00:00:00 ity of [facility] 2021-03-10 2021-03-10 Outpatient RENATO DILL [facility] [id number] Univers 09:00:00 09:00:00 [id number] ity of [facility] 2021-03-10 2021-03-10 Outpatient RENATO DILL [facility] [id number] Univers 09:00:00 09:00:00 ity of [facility] 2021-03-04 2021-03-04 Outpatient RENATO DILL [facility] [id number] Univers 08:00:00 08:00:00 [id number] ity of [facility] 2021-03-04 2021-03-04 Outpatient RENATO DILL [facility] [id number] Univers 00:00:00 00:00:00 ity [facility] 2021-03-02 2021-03-02 Outpatient R [facility] [id number] Univers 13:35:00 13:35:00 [id number] ity [facility] 2021-02-23 2021-02-23 Outpatient R MAUREEN, [facility] [id number] Univers 13:30:00 13:30:00 SHAKIR [facility] 2021-02-12 2021-02-12 [facility] [id number] Univers 10:30:00 10:30:00 SHEA [id number] [facility] 2021-02-11 2021-02-11 [facility] Adam, UNIVERSIT 1.2.840.114 [id number] 08:34:08 23:59:00 Encounter Shea Y HEALTH [id number] CLINICS [id number] [id number] 2021-02-11 2021-02-11 Outpatient R [facility] [id number] Univers 11:00:00 11:00:00 [id number] [facility] 2021-02-11 2021-02-11 Outpatient R ALAYNAPETEMIRANDA, [facility] [id number] Univers 00:00:00 00:00:00 SHEA [facility] 2021-02-09 2021-02-09 Case Renato Santiago UNIVERS 1.2.840.114 [id number] 00:00:00 00:00:00 Management Neil HEALTH [id number] CLINICS [id number] [id number] 2021-02-08 2021-02-08 Emergency [facility] 1.2.840.114 [id number] 17:25:00 20:35:00 [facility] [id number] League 4.2.7.2.686 [facility] [id number] [address] ([facility]) 2021-02-08 2021-02-08 Outpatient R ALVIN, [facility] [id number] Univers 17:30:00 17:30:00 ATTENDING [facility] 2021-02-08 2021-02-08 Outpatient R KING ELLIOT, [facility] [id number] Univers 16:00:00 16:00:00 DAVID [facility] 2021-02-08 2021-02-08 [facility] [id number] Univers 16:00:00 16:00:00 COCO thao o f [facility] 2021-02-08 2021-02-08 [facility] [id number] Univers 11:00:00 11:00:00 SHEA [id number] [facility] 2021-02-08 2021-02-08 [facility] [id number] Univers 00:00:00 00:00:00 SHEA [facility] 2021-02-04 2021-02-04 Telephone Fabiola Swift [facility] 1.2.840.11 [id number] 00:00:00 00:00:00 Y HEALTH [id number] CLINICS [id number] [id number] 2021-02-02 2021-02-02 [facility] [id number] Univers 13:30:00 13:30:00 ELENA [facility] 2021-02-02 2021-02-02 [facility] [id number] Univers 12:30:00 12:30:00 ELENA [facility] 2021-02-02 2021-02-02 [facility] 1.2.840.114 [id number] 00:00:00 00:00:00 Outreach [facility] [id number] [facility] 4.2.7.2.686 AMA [id number] 2021-01-28 2021-01-28 Hospital Fabiola Swift [facility] 1.2.840.114 [id number] 08:35:41 23:59:00 Encounter Y HEALTH [id number] CLINICS [id number] [id number] 2021-01-28 2021-01-28 Outpatient R [facility] [id number] Univers 11:00:00 11:00:00 [id number] [facility] 2021-01-28 2021-01-28 Outpatient R [facility] [id number] Univers 00:00:00 [facility]:00:[facility] 2021-01-27 2021-01-27 Nurse Nurse, [facility] 1.2.840.114 [id number] 09:18:25 09:32:38 Visit [facility] [place] 350.1.13.10 [facility] 4.2.7.2.686 Professio [id number] nal [address] Building 2021-01-27 2021-01-27 Outpatient R [facility] [id number] Univers 09:00:00 09:00:00 [id number] ity [facility] 2021-01-27 2021-01-27 Outpatient R [facility] [id number] Univers 09:00:00 09:00:00 [facility] 2021-01-26 2021-01-26 Outpatient R [facility] [id number] Univers 11:00:00 11:00:00 [id number] [facility] 2021-01-22 2021-01-22 Office Sugar Sabrina CINDY 1.2.840.114 [id number] 09:34:26 11:19:10 Visit Rp H 350.1.13.10 [place] [id number] 2021-01-22 2021-01-22 Outpatient R SABRINA WOOTEN [facility] [id number] Univers 10:20:00 10:20:00 [id number] [facility] 2021-01-22 2021-01-22 Outpatient R SABRINA WOOTEN [facility] [id number] Univers 10:20:00 10:20:00 ity [facility] 2021-01-08 2021-01-08 Outpatient R YOVANNY CHOI [facility] [id number] Univers 11:00:00 11:00:00 [id number] [facility] 2021-01-08 2021-01-08 Outpatient R YOVANNY CHOI [facility] [id number] Univers 11:00:00 11:00:00 ity [facility] 2021-01-04 2021-01-04 Outpatient R DIANA [facility] [id number] Univers 10:45:00 10:45:00 WONDIFUL [id number] ity o f [facility] 2021-01-04 2021-01-04 Outpatient R DIANA [facility] [id number] Univers 10:45:00 10:45:00 WONDIFUL ity o f [facility] 2020-12-18 2020-12-18 Outpatient FABIOLA SWIFT [facility] [id number] Univers 10:30:00 10:30:00 [id number] ity [facility] 2020-12-18 2020-12-18 Outpatient R FABIOLA SWIFT [facility] [id number] Univers 10:30:00 10:30:00 ity [facility] 2020-12-04 2020-12-04 Outpatient R DIANA [facility] [id number] Univers 10:00:00 10:00:00 WONDIFUL ity o f [facility] 2020-12-04 2020-12-04 Outpatient R SABRINA WOOTEN [facility] [id number] Univers 09:40:00 09:40:00 [id number] ity [facility] 2020-12-03 2020-12-03 Outpatient R DIANA [facility] [id number] Univers 13:30:00 13:30:00 WONDIFUL [id number] ity o f [facility] 2020-12-03 2020-12-03 Outpatient R DIANA [facility] [id number] Univers 13:30:00 13:30:00 WONDIFUL ity o f [facility] 2020-12-03 2020-12-03 Outpatient R [facility] [id number] Univers 10:00:00 10:00:00 ity [facility] 2020-12-01 2020-12-01 Outpatient R [facility] [id number] Univers 14:00:00 14:00:00 [id number] ity [facility] 2020-12-01 2020-12-01 Outpatient R [facility] [id number] Univers 00:00:00 00:00:00 ity [facility] 2020-11-30 2020-11-30 Outpatient R ASHLIE [facility] [id number] Univers 09:00:00 09:00:00 ARVIND [id number] ity of [facility] 2020-11-17 2020-11-17 Outpatient R [facility] [id number] Univers 10:30:00 10:30:00 [id number] ity of [facility] 2020-11-17 2020-11-17 Outpatient R [facility] [id number] Univers 10:30:00 10:30:00 ity of [facility] 2020-11-10 2020-11-10 Outpatient R [facility] [id number] Univers 14:40:00 14:40:00 [id number] ity of [facility] 2020-11-10 2020-11-10 Outpatient R FELICIANO [facility] [id number] Univers 14:40:00 14:40:00 OMSULMAI ity of [facility] 2020-11-09 2020-11-09 Outpatient FABIOLA SWIFT [facility] [id number] Univers 08:00:00 08:00:00 [id number] ity of [facility] 2020-11-09 2020-11-09 Outpatient R FABIOLA SWIFT [facility] [id number] Univers 00:00:00 00:00:00 ity of [facility] 2020-10-29 2020-10-[address] [facility] [id number] Univers 14:30:00 14:30:00 [id number] ity of [facility] 2020-10-29 2020-10-29 Outpatient R SYDNEE ROSANA [facility] [id number] Univers 14:30:00 14:30:00 ity of [facility] 2020-10-28 2020-10-28 Outpatient R [facility] [id number] Univers 15:45:00 15:45:00 [id number] ity of [facility] 2020-10-28 2020-10-28 Outpatient R [facility] [id number] Univers 00:00:00 00:00:00 ity of [facility] 2020-10-23 2020-10-23 Outpatient R [facility] [id number] Univers 14:00:00 14:00:00 [id number] ity of [facility] 2020-10-23 2020-10-23 Outpatient R [facility] [id number] Univers 14:00:00 14:00:00 [facility] 2020-10-23 2020-10-23 Outpatient [facility] [id number] 2020-10-22 2020-10-22 Outpatient [facility]MLC [facility] [id number] [facility] 2020-10-22 2020-10-22 Outpatient [facility]MLC [facility] [id number] [facility] 2020-10-20 2020-10-20 [facility] [id number] Univers 10:00:00 10:00:00 ZACH [facility] 2020-10-20 2020-10-20 [facility] [id number] Univers 10:00:00 10:00:00 ZACH [facility] 2020-10-19 2020-10-19 Outpatient R SYDNEE ROSANA [facility] [id number] Univers 13:30:00 13:30:00 [facility] 2020-10-19 2020-10-19 Outpatient R SYDNEE [facility] [id number] Univers 13:30:00 13:30:00 [facility] 2020-10-10 2020-10-10 Telephone Brian Edwards 1.2.840.114 [id number] 00:00:00 00:00:00 [id number] [facility] [id number] [id number] 2020-10-02 2020-10-02 Outpatient R BRIAN EDWARDS [facility] [id number] Univers 09:30:00 09:30:00 [facility] 2020-10-02 2020-10-02 Outpatient R SABRNIA WOOTEN [facility] [id number] Univers 00:00:00 00:00:00 [facility] 2020-10-01 2020-10-01 Outpatient R [facility] [id number] Univers 09:30:00 09:30:00 [id number] ity of [facility] 2020-09-29 2020-09-29 Outpatient R [facility] [id number] Univers 08:30:00 08:30:00 [id number] ity of [facility] 2020-09-29 2020-09-29 Outpatient R BRIAN EDWARDS [facility] [id number] Univers 08:30:00 08:30:00 ity of [facility] 2020-09-28 2020-09-28 Outpatient R BRIAN EDWARDS [facility] [id number] Univers 14:00:00 14:00:00 [id number] ity of [facility] 2020-09-28 2020-09-28 Outpatient R JERRY BRIAN [facility] [id number] Univers 00:00:00 00:00:00 ity of [facility] 2020-09-24 2020-09-24 Outpatient R ROSANA RANDHAWA [facility] [id number] Univers 08:00:00 08:00:00 [id number] ity of [facility] 2020-09-24 2020-09-24 Outpatient R ROSANA RANDHAWA [facility] [id number] Univers 08:00:00 08:00:00 ity of [facility] 2020-09-19 2020-09-19 Outpatient [facility] [id number] [facility] 2020-09-14 2020-09-14 Outpatient R [facility] [id number] Univers 09:00:00 09:00:00 ity of [facility] 2020-09-14 2020-09-14 Outpatient R [facility] [id number] Univers 09:00:00 09:00:00 ity of [facility] 2020-09-14 2020-09-14 Outpatient [facility]MLC [facility] [id number] [facility] 2020-09-09 2020-09-09 Outpatient R AKINSICYDNEY [facility] [id number] Univers 13:15:00 13:15:00 ALBERTA [id number] ity o f [facility] 2020-09-09 2020-09-09 Outpatient R AKINSIPE, [facility] [id number] Univers 13:15:00 13:15:00 ALBERTA barrigay o f [facility] 2020-09-03 2020-09-03 Outpatient [facility]MLC [facility] [id number] [facility]00 [facility] 2020-09-01 2020-09-01 Outpatient [facility] [id number] [facility]00 [facility] 2020-08-28 2020-08-28 Outpatient R SUGAR, [facility] [id number] Univers 11:00:00 11:00:00 [id number] ity [facility] 2020-08-28 2020-08-28 Outpatient R SUGAR [facility] [id number] Univers 11:00:00 11:00:00 [facility] 2020-08-27 2020-08-27 Out[facility] [id number] Univers 14:30:00 14:30:00 PRITESH thao [facility] 2020-08-27 2020-08-27 Outpatient R AKINSIPE, [facility] [id number] Univers 14:00:00 14:00:00 ALBERTA [id number] keesha o lizeth [facility] 2020-08-25 2020-08-25 Outpatient [facility] [id number] Univers 14:30:00 14:30:00 PRITESH [id number] [facility] 2020-08-25 2020-08-25 Outpatient [facility] [id number] Univers 14:30:00 14:30:00 PRITESH [facility] 2020-08-12 2020-08-12 Outpatient [facility]C [facility] [id number] [facility]00 [facility] 2020-08-11 2020-08-11 Outpatient [facility]C [facility] [id number] [facility]00 [facility] 2020-08-07 2020-08-07 Outpatient R SUGAR, [facility] [id number] Univers 10:40:00 10:40:00 [id number] ity [facility] 2020-08-07 2020-08-07 Outpatient SABRINA TRAN [facility] [id number] Univers 10:40:00 10:40:00 ity of [facility] 2020-07-23 2020-07-23 [facility] [id number] 11:20:00 11:20:00 sigmacare [facility] 2020-06-01 2020-06-01 Outpatient R ASHLIE [facility] [id number] Univers 00:00:00 00:00:00 ARVIND [facility] 2020-05-28 2020-05-28 Outpatient Moise JEAN PIERRE [facility] [id number] Univers 10:30:00 10:30:00 BRIGETTE [id number] [facility] 2020-05-28 2020-05-28 Outpatient [facility] [id number] Univers 10:30:00 10:30:00 BRIGETTE [facility] 2020-05-11 2020-05-11 Out[facility] [id number] 16:25:00 16:25:00 sigmacare [facility] 2020-05-08 2020-05-08 Outpatient SABRINA TRAN [facility] [id number] Univers 11:00:00 11:00:00 [id number] ity [facility] 2020-05-08 2020-05-08 Outpatient SABRINA TRAN [facility] [id number] Univers 11:00:00 11:00:00 ity [facility] 2020-05-01 2020-05-01 [facility] [id number] [facility] 13:06:00 13:06:00 [facility] Medicine Outpati ent Clinics 2020-04-23 2020-04-23 [facility] [id number] [facility] [address] 14:25:00 14:25:00 [facility] Medicine Outpati ent Clinics 2020-04-16 2020-04-16 [facility] [id number] [facility] 13:06:00 13:06:[address] Luke s - Drive [facility] l Medicine Outpati ent Clinics 2020-04-16 2020-04-16 [facility] [id number] [address] 10:40:00 10:40:[address] Luke s - Drive [facility] Out[facility] Clinics 2020-04-13 2020-04-13 [facility] [id number] 13:19:00 13:19:[address] Luke s - Drive [facility] Medicine Outpati ent Clinics 2020-04-13 2020-04-13 [facility] [id number] [facility] 11:29:00 11:29:00 t Wray [employer] s - Drive [facility] Medicine Outpati ent Clinics 2020-04-01 2020-04-01 Outpatient R BEV [facility] [id number] [facility] 13:30:00 13:30:00 RAJ [facility] 2020-04-01 2020-04-01 Outpatient R BEV [facility] [id number] [facility] 13:30:00 13:30:00 [facility] 2020-03-27 2020-03-27 Outpatient [facility] [id number] [facility] 09:20:00 09:20:00 [id number] [facility] 2020-03-27 2020-03-27 Outpatient R [id number] [facility] 09:20:00 09:20:00 ity [facility] 2020-03-20 2020-03-20 Outpatient R SUGAR, [facility] [id number] Univers 10:20:00 10:20:00 [facility] 2020-01-17 2020-01-17 Outpatient R [facility] [id number] [facility] 10:45:00 10:45:00 [facility] 2020-01-17 2020-01-17 [id number] Univers 09:00:00 09:00:00 ity [facility] 2020-01-15 2020-01-15 [facility] [id number] [address] 12:20:00 12:20:00 t Wray [employer] s - Drive [facility] Medicine Outpati ent Clinics 2020-01-08 2020-01-08 [facility] [id number] [address] 08:53:00 08:53:00 t [employer] s - Drive [facility] Medicine Outpati ent Clinics 2019-12-14 2019-12-14 Emergency X ОЛЬГА, [facility] ERT [id number] Univers 01:43:55 04:36:00 YANIQUE [facility] 2019-10-28 2019-10-28 [facility] [id number] [facility] [address] 09:40:00 09:40:00 t [employer] s - Drive [facility] Medicine Outpati ent Clinics 2019-09-03 2019-09-03 [facility] [id number] [address] 16:57:00 16:57:00 t [employer] - [employer] [facility] Medicine Outpati ent Clinics 2019-08-27 2019-08-27 [facility] [id number] [facility] [address] 08:40:00 08:40:00 t [employer] s - Drive [facility] Medicine Outpati ent Clinics 2019-08-22 2019-08-22 [facility] [id number] [address] 09:20:00 09:20:00 t Wray [employer] s - Drive [facility] Medicine Outpati ent Clinics 2019-08-05 2019-08-05 [facility] [id number] 16:00:00 16:00:00 t Wray [employer] s - Drive [facility] Medicine Outpati ent Clinics 2019-03-01 2019-03-01 [facility] [id number] 09:40:00 09:40:00 t Wray [employer] s - Drive [facility] Medicine Outpati ent Clinics 2019-01-25 2019-01-25 [facility] [id number] [facility] [address] 09:30:00 09:30:00 t [facility] 2018-10-26 2018-10-26 [facility] [id number] [address] 09:30:00 09:30:00 t [facility] Outpat[facility] ent [facility] 2018-07-27 2018-07-27 [facility] [id number] 10:15:00 10:15:00 t [facility] 2018-05-01 2018-05-01 [facility] [id number] Univers 09:15:00 09:15:00 t; ALFREDO, of it Emanuel M.D. [facility] Trace FUENTES M.D. ans 2018-05-01 2018-05-01 [facility]STINE [facility] [id number] Univers 08:45:00 08:45:00 t; ALONZO GONZALES, Division of ity of ALONZO WAGNER M.D. [facility] Phys[facility] ans 2018-04-27 2018-04-27 [facility] [id number] 10:15:00 10:15:00 t [facility] ent [facility] 2017-05-08 2017-05-08 CHRISTINE Dorman UTP [id number] Univers 09:00:00 09:00:00 t; Meghan FUENTES M.D. [place] Bernice FUENTES M.D. ans 2017-02-28 2017-02-28 CHRISTINE Dorman [facility] [id number] Univers 09:45:00 09:45:00 t; Meghan FUENTES M.D. [place] Bernice FUENTES M.D. ans 2017-02-28 2017-02-28 CHRISTINE Cowan [facility] [id number] Univers 09:45:00 09:45:00 t; ALONZO GONZALES, i ty of ALONZO WAGNER M.D. [place] [facility] Phys[facility] ans 2017-02-28 2017-02-28 Appointmen CHRISTINE FELIX [facility] [id number] Univers 09:30:00 09:30:00 tJagdish ASIF M.D. itjake of [facility] Physi ci ans Results Test Description Test Time Test Comments Results Result Comments Source [O] Urine Dipstick (In Office) 2018-05-01 10:25:00 Test Item Value Reference Range Interpretation Comme nts LEUKOCYTES (test code = LEUKOCYTES) Negative N NITRITE; Normal (test code = 39882-8) Negative N UROBILINOGEN; Normal (test code = 52473-8) 0.2 N PROTEIN (test code = 97368-3) 30 pH (test code = pH) 7.0 N URINE BLOOD (test code = 09051-0) Trace-Intact SPECIFIC GRAVITY; Normal (test code = 2965-2) 1.020 N KETONES; Normal (test code = 08222-7) Negative N BILIRUBIN; Normal (test code = 18694-4) Neative N GLUCOSE; Normal (test code = 1547-9) Negative N [facility]
== END 2021-09-07 10:35 | disposition home or self-care (01) ==
LOC: ER 08:26 → ERHOLD 15:05 → 4TH 19:42
PROVIDERS: ADMIT Family Medicine; ATTEND Family Medicine
DX: N39.0 Urinary tract infection, site not specified (principal); D17.71 Benign lipomatous neoplasm of kidney; N18.30 Chronic kidney disease, stage 3 unspecified; G40.909 Epilepsy, unspecified, not intractable, without status epilepticus; R32 Unspecified urinary incontinence; Z90.5 Acquired absence of kidney; Z20.822 Contact with and (suspected) exposure to COVID-19
CPT/HCPCS: 36415; 74176; 76770; 80048; 80053; 80076; 80307; 81003; 81015; 83690; 83735; 84100; 84145; 85025; 87086; 87088; 96365; 99285; G0378; J1650; J2543; J7030; Q2035; U0003

== ENCOUNTER 2022-08-13 20:45 | Emergency (ER) | payer OTHER, SELFPAY ==
--- OUTSIDE RECORDS SUMMARY | 2022-08-13 20:50 | XMS REPORT | Continuity of Care Document ---
:1990 Author Organization [facility] t Address [address] [place] [address] Care Team Providers Name Role Phone Ramin Ortiz MD Primary Care Physician [phone] Shantelle Bates Attending Clinician Unavailable VANDANA FENTON Attending Clinician Unavailable YADIRA LOW Attending Clinician Unavailable Yadira Angulo Attending Clinician [phone] Doctor Unassigned, [place] Attending Clinician Unavailable Visit, Ang-Rmchp Nurse Attending Clinician Unavailable Vandana Ardon Attending Clinician RAMIN ORTIZ Attending Clinician Unavailable SABRINA HASSAN RP Attending Clinician Unavailable Sabrina Hassan MD, Rp Attending Clinician Adam Terence DOUGHERTY Attending Clinician John HUERTA, Renato Almonte Attending Clinician Mariana Cooley Attending Clinician Fabiola Cadet Attending Clinician Neftaly DOUGHERTY Jamey Wardan Attending Clinician Nurse, [facility] Attending Clinician Unavailable Jennifer GROUND MIXER, Jesika Attending Clinician ALFREDO EUGENE M.D. Attending Clinician Unavailable ALONZO GONZALES M.D. Attending Clinician Unavailable LAYA FELIX M.D. Attending Clinician Unavailable SABRINA HASSAN RP Admitting Clinician Unavailable Payers Payer Name Policy Type Policy Number Effective Date Expiration Date [facility] [id number] 2022 STAR PLUS 00:00:00 Problems Condition Condition Condition Status Onset Resolution Last Treating Co mments Source Name Details Category Date Date Treatment Clinician Date Other Other Disease Active Univers general general 1-27 [place] of counseling [place] advice and advice 00 Me dical for for Branch contracept contracept ric ric management management Low grade Low grade Disease Active Overview: Univers squamous squamous 1-21 Formattin ity of intraepith intraepith 00:00: g of this [place] elial elial 00 note Medical lesion lesion might be Branch (LGSIL) on (LGSIL) on different cervical cervical from the Pap smear Pap smear original. +hpv, pending colpo appt Gastritis Gastritis Disease Active 2020-11 Uni vers 0-10 ity of 00:00: [address] Branch Vaginal Vaginal Disease Active Univers discharge discharge 9-24 ity of 00:00: [address] Branch Dysuria Dysuria Disease Active Univers 9-24 ity of 00:00: [place] [facility] Encounter Encounter Disease Active Uni vers for for 9-24 ity of surveillan surve[place]an [place] of ce of 00 Medical implantabl implantabl Br anch e e subdermal subdermal contracept contracept ric ric Dysphagia, Dysphagia, Disease Active Overview : Univers pharyngoes pharyngoes 9-17 Formattin ity of ophageal ophageal 00:00: g of this [place] as phase phase 00 note Medical might be Branch different from the original. Added automatic ally from request for surgery [id number] Acute left Acute left Disease Active U nivers flank pain flank pain 6-29 it y of 00:00: Medical Branch BRYAN (acute BRYAN (acute Disease Active U nivers kidney kidney 6-25 ity of injury) injury) 00:00: Medical Branch Benign Benign Disease Active Univers renal renal 4-28 ity of tumor tumor 00:00: [place] [facility] RLS RLS Disease Active Univers (restless (restless 2-22 ity of legs legs 00:00: [place] syndrome) syndrome) 00 [facility] Branch Anxiety Anxiety Disease Active Univers 2-22 ity of 00:00: Medical Branch Vitamin D Vitamin D Disease Active Uni vers deficiency deficiency 1-27 it y of 00:00: Medical Branch Vitamin B6 Vitamin B6 Disease Active U nivers deficiency deficiency 1-27 it y of 00:00: [place] [facility] Papanicola Papanicola Disease Active 2019-11 U nivers ou smear ou smear 0-26 ity of of cervix of cervix 00:[place] with low with low 00 Medica l grade 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) Bacterial Bacterial Disease Active 2019-11 Uni vers vaginitis vaginitis 0-19 ity of 00:00: [place] [facility] Candidiasi Candidiasi Disease Active 2020 U nivers s of vulva s of [...] deficiency 0-16 it y of 00:00: [place] [facility] 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 0-16 ity of 00:00: [place] 00 Medical Branch Chronic Chronic Disease Active 2019-11 Univers fatigue fatigue 0-16 ity of 00:00: Medical Branch Depression Depression Disease Active Overview : Univers , major, , major, 7-09 Formattin ity of single single 00:00: g of this [place] episode, episode, 00 note Medica l mild [...] urgent/em ergent care including calling Suicide Hotline ([phone]) or [place].Follo w up in one month with Psycholog ist, Counselor , Support group, Psycholog ist/Couns elor/Supp ortGroup/ Psychiatr ist and PCP Seizures Seizures Disease Active Overview: Un alistair 6-10 Formattin ity of 00:00: g of this [place] 00 note Medical might be Branch different [...] Formattin ity of 00:00: g of this [place] 00 note Medical might be Branch different [...] Disease Active Univers 6-10 ity of 00:00: Medical Branch Nerve pain Nerve pain Disease Active Overview : Univers 610 Formattin ity of 00:00: g of this [place] note Medical might be Branch different from the original. Last Assessmen t & Plan: Condition : stableFol low up in: three months Primary Primary Disease Active Overview: Univ ers insomnia insomnia 04-22 Formattin ity of 00:00: g of this [place] 00 note Medical might be Branch different from the original. Last Assessmen t & Plan: Condition : stableFol low up in: three months Status Status Disease Active Univers post post 12-05 ity of nephrectom nephrectom [place] Medical [place] Status Status Disease Active 2020 Univers post post 23 ity of nephrectom [place]rectom [place] Medical Branch Pulmonary Pulmonary Disease Active Uni vers nodules nodules 12-05 ity of 00:00: [place] 00 Medical Branch Renal mass Renal mass Disease Active 2018-11 Overview : Univers 12-02 Formattin ity of 00:00: g of this [place] 00 note Medical might be Branch different from the original. Added automatic ally from request for surgery [id number] Angiomyoli Angiomyoli Disease Active 2018-11 Overview : Univers guevara of guevara of 12-02 Formattin ity o f both both 00:00: g of this [place] kidneys kidneys 00 note Medical might be Branch different from the original. 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 Ph ysici n n ans Angiomyoli Angiomyoli Problem Active U T guevara of guevara of Physici kidney kidney ans Tuberous Tuberous Problem Active [facility] sclerosis sclerosis Phys ici ans Localz-rlt Localz-rlt Problem Active U T d d Physici symptomati symptomati an s c epilepsy c epilepsy w complx w complx part sz, part sz, notintrac, notintrac, w status w status Allergies, Adverse Reactions, Alerts Allergy Allergy Status Severity Reaction(s) Onset Inactive Treating Comm ents Source Name Type Date Date Clinician NO KNOWN Drug Active Univers ALLERGIE Class ity of S [place] [facility] [place] Social History Social Habit Start Date Stop Date Quantity Comments Source History [facility] o f Alcohol Std [place] [facility] Drinks Branch History [facility] o f Alcohol Binge [place] [facility] al Branch History [facility] o f Alcohol Comment [place] [facility] ical Branch Exposure to 2022-08-01 2022-08-11 Not sure [facility] SARS-CoV-2 00:00:00 10:58:00 [facility] (event) Branch Tobacco use and 2022-08-11 2022-08-11 Smokeless tobacco Un iversity of exposure 00:00:00 00:00:00 non-user [facility] Branch Alcohol intake 2022-08-11 2022-08-11 Lifetime University of 00:00:00 00:00:00 non-drinker [facility] (finding) Branch Education 2021-05-07 2021-05-07 13 University of 00:00:00 00:00:00 [place] [facility] History [facility] 2020-01-17 2020-01-17 1 University o f Alcohol Frequency 00:00:00 00:00:00 [place] M edical Branch History [facility] 2019-09-26 2019-09-26 5 University o f Financial 00:00:00 00:00:00 [place] [facility] History [facility] Food 2019-09-26 2019-09-26 1 Univers ity of Worry 00:00:00 00:00:00 [place] [facility] History [facility] Food 2019-09-26 2019-09-26 1 Univers ity of Scarcity 00:00:00 00:00:00 [place] [facility] History [facility] 2019-09-26 2019-09-26 2 University o f Transport Med 00:00:00 00:00:00 [facility] al Branch History [facility] 2019-09-26 2019-09-26 2 University o f Transport Non-Med 00:00:00 00:00:00 [facility] Sex Assigned At [birth year] Universit y of 00:00:00 00:00:00 [facility] Smoking Status Start Date Stop Date Source Never smoked tobacco [facility] Medications Ordered Filled Start Stop Current Ordering Indication Dosage Frequency Signature Comments Components Source Medication Medication Date Date Medication? Clinician (SIG) Name Name fluconazole 2021- Yes [id number] 150mg Take 1 Univers (DIFLUCAN) 08-11 tablet by ity of 150 mg 00:00: 04:59 [place] tablet 00 :00 now for 1 Medical dose. Branch fluconazole 2021- Yes [id number] 150mg Take 1 Univers (DIFLUCAN) 08-11 tablet by ity of 150 mg 00:00: 04:59 [place] tablet 00 :00 now for 1 Medical dose. Branch fluconazole 2021- Yes [id number] 150mg Take 1 Univers (DIFLUCAN) 08-11 tablet by ity of 150 mg 00:00: 04:59 mouth [place] tablet 00 :00 now for 1 Medical dose. Branch fluconazole 2021- Yes [id number] 150mg Take 1 Univers (DIFLUCAN) 08-11 tablet by ity of 150 mg 00:00: 04:59 mouth [place] tablet 00 :00 now for 1 Medical dose. Branch fluconazole 2021- Yes [id number] 150mg Take 1 Univers (DIFLUCAN) 08-11 tablet by ity of 150 mg 00:00: 04:59 mouth [place] tablet 00 :00 now for 1 Medical dose. Branch fluconazole 2021- Yes [id number] 150mg Take 1 Univers (DIFLUCAN) 08-11 tablet by ity of 150 mg 00:00: 04:59 mouth [place] tablet 00 :00 now for 1 Medical dose. Branch medroxyPROG 2021- No [id number] 150mg Univers ESTERone 08-09 ity of (DEPO-PROVE 17:30: 16:45 [facility]) syringe 00 :00 Medical 150 mg Branch medroxyPROG 2021- No [id number] 150mg 150 mg, Univers ESTERone 08-09 Intramuscu ity of (DEPO-PROVE 17:30: 16:45 lar, ONCE, [facility]) syringe 00 :00 1 dose, On Me dical 150 mg Tue Branch 08/09/22 at 1230, Routine Lamotrigine 2020-11 Yes [id number] 1{tbl} Take 1 Univers 100 mg TbDL 1-18 tablet by ity of 00:00: mouth [place] (two) Medical times Branch daily. Lamotrigine 2020-11 Yes [id number] 1{tbl} Take 1 Univers 100 mg TbDL 1-18 tablet by ity of 00:00: mouth [place] (two) Medical times Branch daily. Lamotrigine 2020-11 Yes [id number] 1{tbl} Take 1 Univers 100 mg TbDL 1-18 tablet by ity of 00:00: mouth 2 [place] (two) Medical times Branch daily. Lamotrigine 2020-11 Yes [id number] 1{tbl} Take 1 Univers 100 mg TbDL 1-18 tablet by ity of 00:00: mouth 2 [place] (two) Medical times Branch daily. Lamotrigine 2020-11 Yes [id number] 1{tbl} Take 1 Univers 100 mg TbDL 1-18 tablet by ity of 00:00: mouth 2 [place] (two) Medical times Branch daily. Lamotrigine 2020-11 Yes [id number] 1{tbl} Take 1 Univers 100 mg TbDL 1-18 tablet by ity of 00:00: mouth 2 [place] (two) Medical times Branch daily. Lamotrigine 2020-11 Yes [id number] 1{tbl} Take 1 Univers 100 mg TbDL 1-18 tablet by ity of 00:00: mouth 2 (two) Medical times Branch daily. Lamotrigine 2020-11 Yes [id number] 1{tbl} Take 1 Univers 100 mg TbDL 1-18 tablet by ity of 00:00: mouth 2 (two) Medical times Branch daily. Lamotrigine 2020-11 Yes [id number] 1{tbl} Take 1 Univers 100 mg TbDL 1-18 tablet by ity of 00:00: mouth 2 [place] (two) Medical times Branch daily. Lamotrigine 2020-11 Yes [id number] 1{tbl} Take 1 Univers 100 mg TbDL 1-18 tablet by ity of 00:00: mouth 2 [place] (two) Medical times Branch daily. Lamotrigine 2020-11 Yes [id number] 1{tbl} Take 1 Univers 100 mg TbDL 1-18 tablet by ity of 00:00: mouth 2 [place] (two) Medical times Branch daily. Lamotrigine 2020-11 Yes [id number] 1{tbl} Take 1 Univers 100 mg TbDL 1-18 tablet by ity of 00:00: mouth 2 [place] (two) Medical times Branch daily. Lamotrigine 2020-11 Yes [id number] 1{tbl} Take 1 Univers 100 mg TbDL 1-18 tablet by ity of 00:00: mouth 2 [place] (two) Medical times Branch daily. medroxyPROG 2020-11- No [id number] 150mg Univers ESTERone 0-18 -19 ity of (DEPO-PROVE 14:15: 14:14 [place] RA) 00 :00 Medical injection Branch 150 mg medroxyPROG 2020-11- No [id number] 150mg Univers ESTERone 0-18 -19 ity of (DEPO-PROVE 14:15: 14:14 [place] RA) 00 :00 Medical injection Branch 150 mg medroxyPROG 2020-11- No [id number] 150mg Univers ESTERone 0-18 -19 ity of (DEPO-PROVE 14:15: 14:14 [place] RA) 00 :00 Medical injection Branch 150 mg medroxyPROG 2020-11- No [id number] 150mg Univers ESTERone 0-18 09-19 ity of (DEPO-PROVE 14:15: 14:14 [place] RA) 00 :00 Medical injection Branch 150 mg medroxyPROG 2020-11- No [id number] 150mg 150 mg, Univers ESTERone 0-18 -19 Intramuscu ity of (DEPO-PROVE 14:15: 14:14 lar, [place] RA) 00 :00 [id number], Medical injection 4 doses, Branch 150 mg First dose on Mon08/30/21 at 0915, Last dose on Mon05/09/22 at 0915, Routine medroxyPROG 2020-11- No [id number] 150mg 150 mg, Univers ESTERone 0-18 07-05 Intramuscu ity of (DEPO-PROVE 14:15: 14:26 lar, [place] RA) 00 :00 [id number], Medical injection 4 doses, Branch 150 mg First dose on Mon08/30/21 at 0915, Last dose on Mon05/09/22 at 0915, Routine albuterol 2020-11 Yes [id number] INHALE 1 Univers (PROAIR 0-18 TO 2 PUFFS ity of HFA) 90 00:00: BY MOUTH [place] mcg/actuati 00 EVERY 4 TO Me dical on inhaler 6 HOURS Bra cth NEEDED albuterol 2020-11 Yes [id number] INHALE 1 Univers (PROAIR 0-18 TO 2 PUFFS ity of HFA) 90 00:00: BY MOUTH [place] mcg/actuati 00 EVERY 4 TO Me dical on inhaler 6 HOURS Bra nch NEEDED albuterol 2020-11 Yes [id number] INHALE 1 Univers (PROAIR 0-18 TO 2 PUFFS ity of HFA) 90 00:00: BY MOUTH [place] mcg/actuati 00 EVERY 4 TO Me dical on inhaler 6 HOURS Bra nch NEEDED albuterol 2020-11 Yes [id number] INHALE 1 Univers (PROAIR 0-18 TO 2 PUFFS ity of HFA) 90 00:00: BY MOUTH [place] mcg/actuati 00 EVERY 4 TO Me dical on inhaler 6 HOURS Bra nch NEEDED albuterol 2020-11 Yes [id number] INHALE 1 Univers (PROAIR 0-18 TO 2 PUFFS ity of HFA) 90 00:00: BY MOUTH [place] mcg/actuati 00 EVERY 4 TO Me dical on inhaler 6 HOURS Bra nch NEEDED albuterol 2020-11 Yes [id number] INHALE 1 Univers (PROAIR 0-18 TO 2 PUFFS ity of HFA) 90 00:00: BY MOUTH [place] mcg/actuati 00 EVERY 4 TO Me dical on inhaler 6 HOURS Bra nch NEEDED albuterol 2020-11 Yes [id number] INHALE 1 Univers (PROAIR 0-18 TO 2 PUFFS ity of HFA) 90 00:00: BY MOUTH [place] mcg/actuati 00 EVERY 4 TO Me dical on inhaler 6 HOURS Bra nch NEEDED albuterol 2020-11 Yes [id number] INHALE 1 Univers (PROAIR 0-18 TO 2 PUFFS ity of HFA) 90 00:00: BY MOUTH [place] mcg/actuati 00 EVERY 4 TO Me dical on inhaler 6 HOURS Bra nch NEEDED albuterol 2020-11 Yes [id number] INHALE 1 Univers (PROAIR 0-18 TO 2 PUFFS ity of HFA) 90 00:00: BY MOUTH [place] mcg/actuati 00 EVERY 4 TO Me dical on inhaler 6 HOURS Bra nch NEEDED albuterol 2020-11 Yes [id number] INHALE 1 Univers (PROAIR 0-18 TO 2 PUFFS ity of HFA) 90 00:00: BY MOUTH [place] mcg/actuati 00 EVERY 4 TO Me dical on inhaler 6 HOURS Bra nch NEEDED albuterol 2020-11 Yes [id number] INHALE 1 Univers (PROAIR 0-18 TO 2 PUFFS ity of HFA) 90 00:00: BY MOUTH [place] mcg/actuati 00 EVERY 4 TO Me dical on inhaler 6 HOURS Bra nch NEEDED albuterol 2020-11 Yes [id number] INHALE 1 Univers (PROAIR 0-18 TO 2 PUFFS ity of HFA) 90 00:00: BY MOUTH [place] mcg/actuati 00 EVERY 4 TO Me dical on inhaler 6 HOURS Bra nch NEEDED albuterol 2020-11 Yes [id number] INHALE 1 Univers (PROAIR 0-18 TO 2 PUFFS ity of HFA) 90 00:00: BY MOUTH [place] mcg/actuati 00 EVERY 4 TO Ak dical on inhaler 6 HOURS [facility] NEED[facility] Magnesium Magnesium 2020-0 2020- No Na Bates 1 tablet Common Oxide Oxide 9-10 10-10 as needed Spirit 00:00: 00:00 for leg - CHI 00 :00 cramps [facility] Clonazepam Clonazepam 2018- Yes Na Bates 1 tablet Common 2-16 on the Spirit 00:00: tongue and - CHI 00 allow to [facility] as needed Medical for acute Center panic attacks Afinitor 5 Afinitor 5 2017-0 Yes ALFREDO TAKE 1 [place] MG Oral MG Oral 8-22 EUGENE TABLET BY P hysici Tablet Tablet 14:39: M.D. MOUTH ans 34 DAILY lamoTRIgine lamoTRIgine 2014-11 Yes ALONZO WAGNER Q0.5D TAKE 1 [place] 100 MG Oral 100 MG Oral 0-13 CHRISTIAN TABLET [facility]ici Tablet Tablet 00:00: M.D. TWICE ans 00 DAILY Hunter Harrison Yes Na Bates 1 tablet Comm on [facility] Cetirizine Cetirizine Yes Na Bates take 1 Common HCl HCl tablet by [facility] - every day as needed [facility] for Medical allergies [place] Lamictal Lamictal Yes Na Bates 1 tablet Common [facility] Ondansetron Ondansetron Yes Na Bates as Common HCl HCl directed [facility] Lexapro Lexapro Yes Na Bates 1 tablet Co mmon [facility] Quetiapine Quetiapine Yes Na Bates TAKE 1 Common Fumarate Fumarate TABLET BY Sp escobar MOUTH AT - BEDTIME [facility] Afinitor Afinitor Yes Na Bates 1 tablet Common [facility] Pantoprazol Pantoprazol Yes Na Bates 1 tablet Common e Sodium e Sodium [facility] Immunizations Ordered Filled Immunization Date Status Comments Sour e Immunization Name Name Influenza Virus 2021-08-30 Completed Universit y of Vaccine Quad IM, 00:00:00 [facility] dical Preserv and ABX Branch Free 6 MO-64 YRS Influenza Virus 2021-08-30 Completed Universit y of Vaccine Quad IM, 00:00:00 [place] Me dical Preserv and ABX Branch Free 6 MO-64 YRS Influenza Virus 2021-08-30 Completed Universit y of Vaccine Quad IM, 00:00:00 [place] Me dical Preserv and ABX Branch Free 6 MO-64 YRS Influenza Virus 2021-08-30 Completed Universit y of Vaccine Quad IM, 00:00:00 [place] Me dical Preserv and ABX Branch Free 6 MO-64 YRS Influenza Virus 2021-08-30 Completed Universit y of Vaccine Quad IM, 00:00:00 [place] Me dical Preserv and ABX Branch Free 6 MO-64 YRS Influenza Virus 2021-08-30 Completed Universit y of Vaccine Quad IM, 00:00:00 [place] Me dical Preserv and ABX Branch Free 6 MO-64 YRS Influenza Virus 2021-08-30 Completed Universit y of Vaccine Quad IM, 00:00:00 [place] Me dical Preserv and ABX Branch Free 6 MO-64 YRS Influenza Virus 2021-08-30 Completed Universit y of Vaccine Quad IM, 00:00:00 [place] Me dical Preserv and ABX Branch Free 6 MO-64 YRS Influenza Virus 2021-08-30 Completed Universit y of Vaccine Quad IM, 00:00:00 [place] Me dical Preserv and ABX Branch Free 6 MO-64 YRS Influenza Virus 2021-08-30 Completed Universit y of Vaccine Quad IM, 00:00:00 [place] Me dical Preserv and ABX Branch Free 6 MO-64 YRS Influenza Virus 2021-08-30 Completed Universit y of Vaccine Quad IM, 00:00:00 [place] Me dical Preserv and ABX Branch Free 6 MO-64 YRS Influenza Virus 2021-08-30 Completed Universit y of Vaccine Quad IM, 00:00:00 [place] Me dical Preserv and ABX Branch Free 6 MO-64 YRS Influenza Virus 2021-08-30 Completed Universit y of Vaccine Quad IM, 00:00:00 [place] Me dical Preserv and ABX Branch Free 6 MO-64 YRS SARS-COV-2 COVID-19 2021-02-23 Completed Unive rsity of PFIZER VACCINE 00:00:00 [facility] SARS-COV-2 COVID-19 2021-02-23 Completed Unive rsity of PFIZER VACCINE 00:00:00 [place] Medi sadie Branch SARS-COV-2 COVID-19 2021-02-23 Completed Unive rsity of PFIZER VACCINE 00:00:00 [facility] Branch SARS-COV-2 COVID-19 2021-02-23 Completed Unive rsity of PFIZER VACCINE 00:00:00 [facility] Branch SARS-COV-2 COVID-19 2021-02-23 Completed Unive rsity of PFIZER VACCINE 00:00:00 [facility] Branch SARS-COV-2 COVID-19 2021-02-23 Completed Unive rsity of PFIZER VACCINE 00:00:00 [facility] Branch SARS-COV-2 COVID-19 2021-02-23 Completed Unive rsity of PFIZER VACCINE 00:00:00 [facility] Branch SARS-COV-2 COVID-19 2021-02-23 Completed Unive rsity of PFIZER VACCINE 00:00:00 [facility] Branch SARS-COV-2 COVID-19 2021-02-23 Completed Unive rsity of PFIZER VACCINE 00:00:00 [facility] Branch SARS-COV-2 COVID-19 2021-02-23 Completed Unive rsity of PFIZER VACCINE 00:00:00 [facility] Branch SARS-COV-2 COVID-19 2021-02-23 Completed Unive rsity of PFIZER VACCINE 00:00:00 [facility] Branch SARS-COV-2 COVID-19 2021-02-23 Completed Unive rsity of PFIZER VACCINE 00:00:00 [facility] Branch SARS-COV-2 COVID-19 2021-02-23 Completed Unive rsity of PFIZER VACCINE 00:00:00 [facility] Branch SARS-COV-2 COVID-19 2021-02-02 Completed Unive rsity of PFIZER VACCINE 00:00:00 [facility] Branch SARS-COV-2 COVID-19 2021-02-02 Completed Unive rsity of PFIZER VACCINE 00:00:00 [facility] Branch SARS-COV-2 COVID-19 2021-02-02 Completed Unive rsity of PFIZER VACCINE 00:00:00 [facility] Branch SARS-COV-2 COVID-19 2021-02-02 Completed Unive rsity of PFIZER VACCINE 00:00:00 [facility] Branch SARS-COV-2 COVID-19 2021-02-02 Completed Unive rsity of PFIZER VACCINE 00:00:00 [facility] SARS-COV-2 COVID-19 2021-02-02 Completed Unive rsity of PFIZER VACCINE 00:00:00 [facility] SARS-COV-2 COVID-19 2021-02-02 Completed Unive rsity of PFIZER VACCINE 00:00:00 [facility] SARS-COV-2 COVID-19 2021-02-02 Completed Unive rsity of PFIZER VACCINE 00:00:00 [facility] SARS-COV-2 COVID-19 2021-02-02 Completed Unive rsity of PFIZER VACCINE 00:00:00 [facility] SARS-COV-2 COVID-19 2021-02-02 Completed Unive rsity of PFIZER VACCINE 00:00:00 [facility] SARS-COV-2 COVID-19 2021-02-02 Completed Unive rsity of PFIZER VACCINE 00:00:00 [facility] SARS-COV-2 COVID-19 2021-02-02 Completed Unive rsity of PFIZER VACCINE 00:00:00 [facility] SARS-COV-2 COVID-19 2021-02-02 Completed Unive rsity of PFIZER VACCINE 00:00:00 [facility] Influenza Virus 2020-08-27 Completed Universit y of Vaccine Quad .5 mL 00:00:00 [place] [facility] IM 6+ MO Branch Influenza Virus 2020-08-27 Completed Universit y of Vaccine Quad .5 mL 00:00:00 [place] [facility] IM 6+ MO Branch Influenza Virus 2020-08-27 Completed Universit y of Vaccine Quad .5 mL 00:00:00 [place] [facility] IM 6+ MO Branch Influenza Virus 2020-08-27 Completed Universit y of Vaccine Quad .5 mL 00:00:00 [place] [facility] IM 6+ MO Branch Influenza Virus 2020-08-27 Completed Universit y of Vaccine Quad .5 mL 00:00:00 [place] [facility] IM 6+ MO Branch Influenza Virus 2020-08-27 Completed Universit y of Vaccine Quad .5 mL 00:00:00 [place] [facility] IM 6+ MO Branch Influenza Virus 2020-08-27 Completed Universit y of Vaccine Quad .5 mL 00:00:00 [place] [facility] IM 6+ MO Branch Influenza Virus 2020-08-27 Completed Universit y of Vaccine Quad .5 mL 00:00:00 [place] [facility] IM 6+ MO Branch Influenza Virus 2020-08-27 Completed Universit y of Vaccine Quad .5 mL 00:00:00 [place] [facility] IM 6+ MO Branch Influenza Virus 2020-08-27 Completed Universit y of Vaccine Quad .5 mL 00:00:00 [place] [facility] IM 6+ MO Branch Influenza Virus 2020-08-27 Completed Universit y of Vaccine Quad .5 mL 00:00:00 [place] [facility] IM 6+ MO Branch Influenza Virus 2020-08-27 Completed Universit y of Vaccine Quad .5 mL 00:00:00 [place] [facility] IM 6+ MO Branch Influenza Virus 2020-08-27 Completed Universit y of Vaccine Quad .5 mL 00:00:00 [place] [facility] IM 6+ MO Branch Influenza Virus 2019-10-01 Completed Universit y of Vaccine Quad .5 mL 00:00:00 [place] [facility] IM 6+ MO Branch Influenza Virus 2019-10-01 Completed [facility] .5 mL 00:00:00 [facility] Influenza Virus 2019-10-01 Completed [facility] .5 mL 00:00:00 [facility] Influenza Virus 2019-10-01 Completed [facility] .5 mL 00:00:00 [facility] Influenza Virus 2019-10-01 Completed [facility] .5 mL 00:00:00 [facility] Influenza Virus 2019-10-01 Completed [facility] .5 mL 00:00:00 [facility] Influenza Virus 2019-10-01 Completed [facility] .5 mL 00:00:00 [facility] Influenza Virus 2019-10-01 Completed [facility] .5 mL 00:00:00 [facility] Influenza Virus 2019-10-01 Completed [facility] .5 mL 00:00:00 [facility] Influenza Virus 2019-10-01 Completed [facility] .5 mL 00:00:00 [facility] Influenza Virus 2019-10-01 Completed [facility] .5 mL 00:00:00 [facility] Influenza Virus 2019-10-01 Completed [facility] .5 mL 00:00:00 [facility] Influenza Virus 2019-10-01 Completed [facility] .5 mL 00:00:00 [facility] 6+ MO Branch Afluria single dose Afluria single dose 2019-08-05 Completed [facility] - 00[facility]00:00 [facility] Flucelvax - single Flucelvax - single 2018-10-26 Completed [facility] - dose syringe dose syringe 00:00:00 [facility] Vital Signs Vital Name Observation Time Observation Value Comments Source Systolic blood 2022-08-11 15:59:00 129 mm[Hg] Univer sity of pressure [facility] Diastolic blood 2022-08-11 15:59:00 81 mm[Hg] Unive rsity of pressure [facility] Heart rate 2022-08-11 15:59:00 79 /min Universi ty of [facility] Body temperature 2022-08-11 15:59:00 36.11 Ca Univ ersity of [facility] Respiratory rate 2022-08-11 15:59:00 18 /min Univ ersity of [facility] Body height 2022-08-11 15:59:00 154.9 cm [facility] Body weight 2022-08-11 15:59:00 73.71 kg [facility] BMI 2022-08-11 15:59:00 30.70 kg/m2 [facility] Systolic blood 2022-08-09 14:47:00 134 mm[Hg] Univer sity of pressure [facility] Diastolic blood 2022-08-09 14:47:00 86 mm[Hg] Unive rsity of pressure [facility] Heart rate 2022-08-09 14:47:00 87 /min [facility] Body temperature 2022-08-09 14:47:00 36.5 Ca Univ ersity of [facility] Respiratory rate 2022-08-09 14:47:00 20 /min Univ ersity of [facility] Body height 2022-08-09 14:47:00 154.9 cm [facility] Body weight 2022-08-09 14:47:00 72.303 kg [facility] BMI 2022-08-09 14:47:00 30.12 kg/m2 [facility] of [facility] Systolic blood 2022-05-17 14:21:00 125 mm[Hg] Univer sity of pressure [facility] Diastolic blood 2022-05-17 14:21:00 86 mm[Hg] Unive rsity of pressure [facility] Heart rate 2022-05-17 14:21:00 77 /min [facility] Body temperature 2022-05-17 14:21:00 36.11 Ca Univ [facility] Respiratory rate 2022-05-17 14:21:00 17 /min Univ [facility] Body height 2022-05-17 14:21:00 154.9 cm [facility] Body weight 2022-05-17 14:21:00 77.168 kg [facility] BMI 2022-05-17 14:21:00 32.14 kg/m2 [facility] Systolic blood 2022-02-14 14:43:00 134 mm[Hg] Univer sity of pressure [facility] Diastolic blood 2022-02-14 14:43:00 98 mm[Hg] Unive rsity of pressure [facility] Heart rate 2022-02-14 14:42:00 96 /min [facility] Body temperature 2022-02-14 14:42:00 36.11 Ca Univ ers[facility] Respiratory rate 2022-02-14 14:42:00 18 /min Univ [facility] Body height 2022-02-14 14:42:00 154.9 cm [facility] Body weight 2022-02-14 14:42:00 77.168 kg [facility] BMI 2022-02-14 14:42:00 32.14 kg/m2 [facility] Systolic blood 2021-12-24 15:47:00 126 mm[Hg] Univer sity of pressure [facility] Diastolic blood 2021-12-24 15:47:00 86 mm[Hg] Unive rsity of pressure [facility] Heart rate 2021-12-24 15:45:00 96 /min [facility] Body temperature 2021-12-24 15:45:00 36.22 Ca Univ [facility] Respiratory rate 2021-12-24 15:45:00 18 /min [facility] Body height 2021-12-24 15:45:00 154.9 cm [facility] Body weight 2021-12-24 15:45:00 77.157 kg [facility] BMI 2021-12-24 15:45:00 32.14 kg/m2 [facility] Oxygen saturation in 2021-12-24 15:45:00 99 /min [facility] Arterial blood by [facility] Pulse oximetry Branch BP Systolic 2018-05-01 10:10:00 109 mm[Hg] [facility] BP Diastolic 2018-05-01 10:10:00 76 mm[Hg] [facility] Height 2018-05-01 10:10:00 154 cm [facility] Weight 2018-05-01 10:10:00 67.7 kg [facility] Body Mass Index 2018-05-01 10:10:00 28.55 kg/m2 [facility] Calculated Temperature 2018-05-01 10:10:00 96.5 [degF] [facility] Heart Rate 2018-05-01 10:10:00 91 /min [facility] Head Circumference 2018-05-01 10:10:00 54.7 cm [facility] Procedures Procedure Date / Time Performing Clinician Source Performed CONSENT/REFUSAL FOR 2022-08-11 14:44:13 Doctor Unassigned, [facility] 2022-01-05 14:13:55 Sabrina Hassan Rp [facility] FERRITIN SERUM 2021-12-24 16:28:00 Sabrina Hassan Rp [facility] TOTAL IRON BINDING 2021-12-24 16:28:00 Sabrina Hassan Rp [facility] COMP. METABOLIC PANEL 2021-12-24 16:28:00 [id number] CBC WITH DIFF 2021-12-24 16:28:00 Sabrina Hassan Rp [facility] INSURANCE CORRESPONDENCE 2021-12-02 06:01:00 Doctor Unassigned, [facility] EKG w/Rhythm Strip 2018-04-17 00:00:00 [facility] [[facility]] CBC (INCLUDES 2018-04-17 00:00:00 [facility] DIFF/PLT) [QLH] CMP W/EGFR 2018-04-17 00:00:00 [facility] [Q] EVEROLIMUS, BLOOD 2018-04-17 00:00:00 [facility] [[facility]] LIPID PANEL 2018-04-17 00:00:00 [facility]] PHOSPHATE ( 2018-04-17 00:00:00 [facility] PHOSPHORUS) [QLH] PTH, INTACT 2018-04-17 00:00:00 [facility] (WITHOUT CALCIUM) [QLH] LAMOTRIGINE 2018-04-17 00:00:00 [facility] MRI Brain w/wo contrast 2018-04-17 00:00:[facility] [id number] [facility] Abdomen w/wo contrast 2018-04-17 00:00:00 [facility] [id number] Encounters Start End Encounter Admission Attending Care Care Encounter Source Date/Time Date/Time Type Type Clinicians Facility Department ID 2021-12-08 Outpatient Bates, Na STLMLC STLMLC [id number] 2 Common 12:12:18 [id number] [facility] 2021-12-08 Outpatient Bates, Na STLMLC STLMLC [id number] 2 Common 12:11:19 [id number] [facility] 2021-12-08 Outpatient Bates, Na STLMLC STLMLC [id number] 2 Common 12:01:13 [id number] [facility] 2021-12-08 Outpatient Bates, Na STLMLC STLMLC [id number] 2 Common 12:00:44 [id number] [facility] 2021-12-08 Outpatient Bates, Na STLMLC STLMLC [id number] 2 Common 12:00:24 [id number] [facility] 2021-12-08 Outpatient Bates, Na STLMLC STLMLC [id number] 2 Common 11:57:53 [id number] [facility] 2021-12-08 Outpatient Bates, Na STLMLC STLMLC [id number] 2 Common 11:50:13 10924 [facility] 2021-12-08 [facility] [id number] 2 Common 11:44:48 [id number] [facility] 2021-12-08 Outpatient Bates, Na STLMLC STLC [id number] 2 Common 11:44:02 [id number] [facility] 2021-12-08 Outpatient Bates, Na STLMLC STLC [id number] 2 Common 11:42:40 [id number] [facility] 2021-12-08 Out[facility] [id number] 2 Common 11:10:16 [id number] [facility] 2021-12-08 Outpatient Bates[facility] [id number] 2 Common 11:07:32 [id number] [facility] 2022-11-08 2022-11-08 Outpatient R ELICEO, [facility] [id number] Univers 10:30:00 10:30:00 VANDANA thao o [facility] 2022-11-08 2022-11-08 Outpatient R AINSLEYPE, [facility] [id number] Univers 09:30:00 09:30:00 YADIRA crystal [facility] 2022-08-17 2022-08-17 Outpatient R [facility] [id number] Univers 10:30:00 10:30:00 ity [facility] 2022-08-11 2022-08-11 Outpatient R AINSLEYPE, [facility] [id number] Univers 11:00:00 12:03:20 YADIRA crystal [facility] 2022-08-11 2022-08-11 [facility] [id number] Univers 11:00:00 12:03:20 Visit Yadira Chaparro [employer] [id number] Jerome as MATERNAL [id number] Med ical & CHILD [address] [place] [address] 2022-08-11 2022-08-11 Orders Doctor GUEVARA 1.2.840.114 [id number] Univers 00:00:00 00:00:00 Only Unassigned, RISSA [id number] ity of [address]2.7.2.686 Jerome as [id number] [address] 2022-08-09 2022-08-09 Outpatient R [facility] [id number] Univers 10:00:00 10:00:00 [id number] ity [facility] 2022-08-09 2022-08-09 [facility] [id number] Univers 10:00:00 10:00:00 VANDANA thao o [facility] 2022-08-09 2022-08-09 [facility] 1.[id number] [facility] 10:00:00 10:00:00 Visit Vandana Fenton [employer] [id number] ity [facility] 4.2.7.2.686 Jerome as MATERNAL [id number] [facility] ical & CHILD [address] [place] [address] 2022-05-17 2022-05-17 Nurse Visit, [facility] Nurse [facility] 1.[id number] [facility] 09:00:00 09:27:11 Visit Vandana Fenton [employer] [id number] ity [facility] [id number] Jerome as MATERNAL [id number] [facility] ical & CHILD [address] [place] [address] 2022-05-17 2022-05-17 Outpatient R [facility] [id number] Univers 09:00:00 09:00:00 [id number] ity [facility] 2022-05-17 2022-05-17 Outpatient R ELICEO [facility] [id number] Univers 09:00:00 09:00:00 VANDANA thao o [facility] 2022-04-01 2022-04-01 Outpatient R DIANA [facility] [id number] Univers 09:30:00 09:30:00 WONDIFUL [id number] ity o [facility] 2022-02-14 2022-02-14 [facility] 1.2 .840.114 [id number] Univers 09:30:00 09:48:50 Visit Vandana Fenton R [employer] [id number] ity of [facility] 4.2.7.2.686 Jerome as MATERNAL [id number] Med ical & CHILD [address] [place] [address] 2022-02-14 2022-02-14 [facility] [id number] Univers 09:30:00 09:30:00 VANDANA ity o f [facility] 2022-01-05 2022-01-05 Outpatient R SONYASABRINA Harvey [facility] [id number] Univers 07:56:31 23:59:00 ity of [facility] 2022-01-05 2022-01-05 Hospital Sonya, [facility] 1.2.840.114 [id number] Univers 07:56:31 23:59:00 Encounter Rp [place] [id number] ity of [place] [id number] [place] [facility] [id number] [facility] [address] 2022-01-05 2022-01-05 Outpatient R SONYASABRINA Harvey [facility] [id number] Univers 08:00:00 08:00:00 [id number] ity of [facility] 2021-12-24 2021-12-24 Office Sonya Sabrina CINDY 1.2.840.114 [id number] Univers 09:20:00 09:40:00 Visit Rp H [id number] it y of [facility] 4.2.7.2.686 Jerome as [id number] [facility] [address] 2021-12-02 2021-12-02 Orders Doctor PAOLA 1.2.840.114 [id number] Univers 00:00:00 00:00:00 Only Unassigned, RISSA [id number] ity of [place] [facility] 4.2.7.2.686 Jerome as [id number] [facility] [address] 2021-02-11 2021-02-11 [facility] 1.2.840.114 [id number] 08:34:08 23:59:00 Encounter Terence Y HEALTH [id number] CLINICS 4.2.7.2.686 [id number] 2021-02-09 2021-02-09 Case JohnRenato [facility] 1.2.840.114 [id number] 00:00:00 00:00:00 Management Gage Y HEALTH [id number] CLINICS 4.2.7.2.686 [id number] 2021-02-08 2021-02-08 Emergency [facility] 1.2.840.114 [id number] 17:25:00 20:35:00 [facility] [id number] [facility] 4.2.7.2.686 [facility] [id number] [address] ([facility]) 2021-02-04 2021-02-04 Telephone Berrien Fabiola [facility] 1.2.840.11 [id number] 00:00:00 00:00:00 Y HEALTH 350.1.13.10 CLINICS 4.2.7.2.686 [id number] 2021-02-02 2021-02-02 Patient [facility] 1.2.840.114 [id number] 00:00:00 00:00:00 Outreach [facility] [id number] [facility] 4.2.7.2.686 GISELA [id number] 2021-01-28 2021-01-28 [facility] Carol [facility]ly [facility] 1.2.840.114 [id number] 08:35:41 23:59:00 Encounter Y HEALTH 350.1.13.10 CLINICS 4.2.7.2.686 [id number] 2021-01-27 2021-01-27 Nurse [facility] 1.2.840.114 [id number] 09:18:25 09:32:38 Visit [facility] [place] 350.1.13.10 [facility] 4.2.7.2.[address] Ariel [id number] [address] 2021-01-22 2021-01-22 Office Sabrina Hassan 1.2.840.114 [id number] 09:34:26 11:19:10 Visit Rp H 350.1.13.10 [facility] 4.2.7.2.686 [id number] 2020-10-23 2020-10-23 Outpatient STLMLC STLMLC [id number] Common 00:00:00 00:00:00 [facility] 2020-10-22 2020-10-22 Outpatient STLMLC STLMLC [id number] Common 00:00:00 00:00:00 [facility] 2020-10-22 2020-10-22 Outpatient STLMLC STLMLC [id number] Common 00:00:00 00:00:00 [facility] 2020-10-10 2020-10-10 Telephone Jesika Rodriguez 1.2.840.114 [id number] 00:00:00 00:00:00 H 350.1.13.10 [facility] 4.2.7.2.686 [id number] 2020-09-19 2020-09-19 Outpatient STLMLC STLMLC [id number] Common 00:00:00 00:00:00 [facility] 2020-09-14 2020-09-14 Outpatient STLMLC STLMLC [id number] Common 00:00:00 00:00:00 [facility] 2020-09-03 2020-09-03 Outpatient STLMLC STLMLC [id number] Common 00:00:00 00:00:00 [facility] 2020-09-01 2020-09-01 Outpatient STLMLC STLMLC [id number] Common 00:00:00 00:00:00 [facility] 2020-08-12 2020-08-12 Outpatient STLMLC STLMLC [id number] Common 00:00:00 00:00:00 [facility] 2020-08-11 2020-08-11 Outpatient STLMLC STLMLC [id number] Common 00:00:00 00:00:00 [facility] 2020-07-23 2020-07-23 [facility] [id number] Common 11:20:00 11:20:[address] [facility] 2020-05-11 2020-05-11 [facility] [id number] Common 16:25:00 16:25:[address] [facility] 2020-05-01 2020-05-01 [facility] [id number] Common 13:06:00 13:06:[address] [facility] 2020-04-23 2020-04-23 [facility] [id number] Common 14:25:00 14:25:[address] [facility] 2020-04-16 2020-04-16 [facility] [id number] Common 13:06:00 13:06:[address] [facility] 2020-04-16 2020-04-16 [facility] [id number] Common 10:40:00 10:40:[address] [facility] 2020-04-13 2020-04-13 [facility] [id number] Common 13:19:00 13:19:[address] [facility] 2020-04-13 2020-04-13 [facility] [id number] Common 11:29:00 11:29:[address] [facility] 2020-01-15 2020-01-15 [facility] [id number] Common 12:20:00 12:20:[address] [facility] 2020-01-08 2020-01-08 [facility] [id number] Common 08:53:00 08:53:[address] [facility] 2019-10-28 2019-10-28 [facility] [id number] Common 09:40:00 09:40:[address] [facility] 2019-09-03 2019-09-03 [facility] [id number] Common 16:57:00 16:57:[address] [facility] 2019-08-27 2019-08-27 [facility] [id number] Common 08:40:00 08:40:[address] [facility] 2019-08-22 2019-08-22 [facility] [id number] Common 09:20:00 09:20:[address] [facility] 2019-08-05 2019-08-05 [facility] [id number] Common 16:00:00 16:00:[address] [facility] 2019-03-01 2019-03-01 [facility] [id number] Common 09:40:00 09:40:[address] [facility] 2019-01-25 2019-01-25 [facility] [id number] Common 09:30:00 09:30:[address] [facility] 2018-10-26 2018-10-26 [facility] [id number] Common 09:30:00 09:30:[address] [facility] 2018-07-27 2018-07-27 [facility] [id number] Common 10:15:00 10:15:[address] [facility] 2018-05-01 2018-05-01 [facility] [id number] [place] 09:15:00 09:15:00 t; ALFREDO, Division of Ph Reji Ordaz Genetics M.D. 2018-05-01 2018-05-01 [facility] [id number] [place] 08:45:00 08:45:00 t; ALONZO GONZALES, Division of Physici Reji WOODS M.D. Genetics 2018-04-27 2018-04-27 [facility] [id number] Common 10:15:00 10:15:00 t [employer] [facility] 2017-05-08 2017-05-08 Appointnessa EUGENE [facility] UTP [id number] [place] 09:00:00 09:00:00 t; Geovanna FUENTES i, M.D. ans JOSHUA, M.D. 2017-02-28 2017-02-28 [facility] [id number] [place] 09:45:00 09:45:00 t; Geovanna FUENTES i, M.D. ans JOSHUA, M.D. 2017-02-28 2017-02-28 Eduarda GONZALES [facility] [id number] [place] 09:45:00 09:45:00 t; ALONZO GONZALES P hysici MARY KAY, M.D. ans M.D. 2017-02-28 2017-02-28 Eduarda FELIX [facility] UTP [id number] [place] 09:30:00 09:30:00 t; Reji ASIF ans HOPE, M.D. Results Test Description Test Time Test Comments Results Result Comments Source TSH, THIRD GENERATION 2021-12-31 05:36:56 Test Item Value Reference Range Interpretation Comme nts TSH, THIRD GENERATION (test 2.460 UIU/ML 0.400-4.100 UNLESS OTHERWISE INDICATED, code = 2821) ALL TESTING PER [facility] ATCLINICAL PATH [facility], [facility]. [address] [place] [address] 6733 RAIL LAYER: Reji MAURO [id number] [place] [id number] COMPREHENSIVE METABOLIC [id number] 03:24:51 Test Item Value Reference Range Interpretation Comments GLUCOSE (test code = 104 MG/DL 70-99 H 2216) BUN (test code = 33 MG/DL 6-20 H 2207) CREATININE (test 1.95 MG/DL 0.60-1.30 H code = 2214) eGFR (2020 CKD-EPI) 35 ML/MIN/1.73 >60 L (test code = 66987) CALC BUN/CREAT (test 17 RATIO 6-28 code = 2235) SODIUM (test code = 140 MEQ/L 794-756 7668) POTASSIUM (test code 4.2 MEQ/L 3.5-5.4 = 2228) CHLORIDE (test code 104 MEQ/L 95-107 = 2215) CARBON DIOXIDE (test 21 MEQ/L 19-31 code = 2206) CALCIUM (test code = 9.7 MG/DL 8.5-10.5 2208) PROTEIN, TOTAL (test 8.1 G/DL 6.1-8.3 code = 2229) ALBUMIN (test code = 4.7 G/DL 3.5-5.2 2200) CALC GLOBULIN (test 3.4 G/DL 1.9-3.7 code = 2240) CALC A/G RATIO (test 1.4 RATIO 1.0-2.6 code = 2234) BILIRUBIN, TOTAL <0.2 MG/DL See_Comment [Automated message] (test code = 220) The syste R2integrated which generated this result transmit christian reference range : <=1.2. The refe rence range was not u sed to interpret th is result as normal/abnormal . ALKALINE PHOSPHATASE 134 U/L 40-114 H (test code = 2203) AST (test code = 12 U/L 9-40 2217) ALT (test code = 11 U/L 5-40 2218) FERRITIN [id number] 19:05:22 Test Item Value Reference Range Interpretation Comments FERRITIN (test code = 203.0 ng/mL 6.0-137.0 H 2203600354) [place] (test code = [place]) Biotin has been reported to cause a negative bias, interpret results relative to patient's use of biotin. Lab Interpretation (test Abnormal code = 07367-9) [facility] IRON BINDING [id number] 18:37:34 Test Item Value Reference Range Interpretation Comments TIBC (test code = 1357225970) 271 ug/dL 250-410 Lab Interpretation (test code = Normal 13976-8) [facility]. METABOLIC PANEL (68283)2021-12-24 18:27:10 Test Item Value Reference Range Interpretation Comments NA (test code = 140 mmol/L 135-145 9493992727) K (test code = 4.7 mmol/L 3.5-5.0 4628261385) CL (test code = 108 mmol/L 98-108 7292867191) CO2 TOTAL (test code = 21 mmol/L 23-31 L 3596816714) AGAP (test code = 2-16 2800537636) BUN (test code = 22 mg/dL 7-23 5729266815) GLUCOSE (test code = 83 mg/dL 70-110 5777247281) CREATININE (test code = 2.00 mg/dL 0.50-1.04 H 1841661034) TOTAL BILI (test code = 0.4 mg/dL 0.1-1.0 3839539122) CALCIUM (test code = 9.7 mg/dL 8.6-10.6 1898236341) T PROTEIN (test code = 8.4 g/dL 6.3-8.2 H 2121311937) ALBUMIN (test code = 4.6 g/dL 3.5-5.0 6333094597) ALK PHOS (test code = 125 U/L 34-122 H 8913113373) ALTv (test code = 13 U/L 5-35 1742-6) AST(SGOT) (test code = 20 U/L 13-40 7270130633) eGFR (test code = mL/min/1.73m2 1461270155) [place] (test code = [place]) Association of Glomerular Filtration Rate (GFR) and Staging of Kidney Disease* + --+ --+ ------+| GFR (mL/min/1.73 m2) ?| With Kidney Damage ?| ?Without Kidney Damage+ --------+ --------+ +| ?>90 ?| ?Stage one ?| ? Normal ?+ ---+ ---+ -------+| ?60-89 ?| ?Stage two ?| ? Decreased GFR ? + --+ --+ ------+| ?30-59 ?| ?Stage three ?| ? Stage three ? + --+ --+ ------+| ?15-29 ?| ?Stage four ? | ? Stage four ?+ ---+ ---+ -------+| ?<15 (or dialysis) ? ?| ?Stage five ? | ? Stage five ?+ ---+ ---+ -------+ *Each stage assumes the associated GFR level has been in effect for at least three months. ?Stages 1 to 5, with or without kidney disease, indicate chronic kidney disease. Notes: Determination of stages one and two (with eGFR >59mL/min/1.73 m2) requires estimation of kidney damage for at least three months as defined by structural or functional abnormalities of the kidney, manifested by either:Pathological abnormalities or Markers of kidney damage (including abnormalities in the composition of the blood or urine or abnormalities in imaging tests). Lab Interpretation Abnormal (test code = 16264-2) [facility] WITH [id number] 18:10:27 Test Item Value Reference Range Interpretation Comments WBC (test code = See_Comment [Automated 90-2) message] The sy stem which generated this result transmitted reference range : 4.30 - 11.10 10*3/?L. The reference range was not used to interpret this result as normal/abnormal . RBC (test code = See_Comment [Automated 799-8) message] The sy stem which generated this result transmitted reference range : 3.93 - 5.25 10*6/?L. The reference range was not used to interpret this result as normal/abnormal . HGB (test code = 12.1 g/dL 11.6-15.0 718-7) HCT (test code = 38.0 % 35.7-45.2 4544-3) MCV (test code = 94.1 fL 80.6-95.5 787-2) MCH (test code = 30.0 pg 25.9-32.8 785-6) MCHC (test code = 31.8 g/dL 31.6-35.1 786-4) RDW-SD (test code = 42.7 fL 39.0-49.9 04127-8) RDW-CV (test code = 12.4 % 12.0-15.5 788-0) PLT (test code = See_Comment H [Automated 777-3) message] The sy stem which generated this result transmitted reference range : 166 - 358 10*3/ ?L. The reference r tabitha was not used to interpret this result as normal/abnormal . MPV (test code = 9.9 fL 9.5-12.9 25532-8) NRBC/100 WBC (test See_Comment [Automat ed code = [id number]) message] The system which generated this result transmitted reference range : 0.0 - 10.0 /100 WBCs. The refer ence range was not u sed to interpret th is result as normal/abnormal . NRBC x10^3 (test code <0.01 See_Comment [Auto mated = [id number]) message] The s ystem which generated this result transmitted reference range : 10*3/?L. The reference range was not used to interpret this result as normal/abnormal . GRAN MAT (NEUT) % 66.2 % (test code = 770-8) IMM GRAN % (test code 1.20 % = [id number]) LYMPH % (test code = 24.3 % 736-9) MONO % (test code = 7.1 % 5905-5) EOS % (test code = 0.8 % 713-8) BASO % (test code = 0.4 % 706-2) GRAN MAT x10^3(ANC) 7.14 10*3/uL 1.88-7.09 H (test code = 1158283479) IMM GRAN x10^3 (test 0.13 10*3/uL 0.00-0.06 H code = 0436940576) LYMPH x10^3 (test code 2.62 10*3/uL 1.32-3.29 = 731-0) MONO x10^3 (test code 0.76 10*3/uL 0.33-0.92 = 742-7) EOS x10^3 (test code = 0.09 10*3/uL 0.03-0.39 711-2) BASO x10^3 (test code 0.04 10*3/uL 0.01-0.07 = 704-7) Lab Interpretation Abnormal (test code = 87579-0) [facility][O] Urine Dipstick (In Office)2018-05-01 10:25:00 Test Item Value Reference Range Interpretation Comments LEUKOCYTES (test code = Negative N LEUKOCYTES) NITRITE; Normal (test code = Negative N 63280-7) UROBILINOGEN; Normal (test code 0.2 N = 07131-1) PROTEIN (test code = 50606-5) 30 pH (test code = pH) 7.0 N URINE BLOOD (test code = Trace-Intact 96826-3) SPECIFIC GRAVITY; Normal (test 1.020 N code = 2965-2) KETONES; Normal (test code = Negative N 06261-9) BILIRUBIN; Normal (test code = Neative N 77024-7) GLUCOSE; Normal (test code = Negative N 1547-9) [facility]"
[2022-08-13] MEDS ORDERED: NA CHLORIDE 0.9% 1,000 ML ONE (21:26)
--- NOTE | 2022-08-13 21:43 | RAD REPORT ---
EXAM DESCRIPTION: CT - Head Brain Wo Cont - 08/13/2022 9:26 pm CLINICAL HISTORY: Seizure COMPARISON: Brain W/Wo Cont dated 12/05/2016 TECHNIQUE: Axial 5 mm thick images of the head were obtained without IV contrast. All CT scans are performed using dose optimization technique as appropriate and may include automated exposure control or mA/KV adjustment according to patient size. FINDINGS: No intracranial hemorrhage, mass, edema or shift of mid-line structures. No acute cortical based infarction. There are numerous 2-8 mm sized subependymal calcifications or calcified hamartoma s. This is a pattern typically seen with tuberous sclerosis. This needs correlation with clinical his tory. No abnormal extra-axial fluid collections. Ventricles are normal. Mastoid air cells and visualized portions of the paranasal sinuses are clear. No acute bony findings. IMPRESSION: Noncontrast CT head examination with no acute finding. 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
[2022-08-13 21:46] LABS: Absolute Lymphocytes (CBC) 1.8 K/uL (0.7-4.9); Hematocrit 34.9 % (36.0-45.0); MCV 90.2 fL (80-100); MPV 7.3 fL (7.6-11.3); RBC Red Blood Cell Count 3.87 M/uL (3.86-4.86)
[2022-08-13 22:01] LABS: Potassium 4.1 mmol/L (3.5-5.1)
--- NOTE | 2022-08-13 23:28 | ER ---
Nurse's Notes [facility] Name: Kitty Wall Age: 31 yrs Sex: Female : 1990 Arrival Date: 08/13/2022 Time: 20:46 Bed 8 Private MD: Diagnosis: Chronic kidney disease, stage 2 (mild);Other seizures-breakthrough Presentation: 08/13 21:01 Chief complaint: EMS states: "We were called out for possible seizure, when we arrived vc1 on scene she was standing outside not post ictal. Pt stated between 6 and 7 she was taking a bath and either passed out or had a seizure. Since then she has been weak, shaky, and nauseous.". Coronavirus screen: Vaccine status: Patient reports receiving the 2nd dose of the covid vaccine. 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 Ebola Screen: No symptoms or risks identified at this time. Initial Sepsis Screen: Does the patient meet any 2 criteria? HR > 90 bpm. No. Patient's initial sepsis screen is negative. Does the patient have a suspected source of infection? No. Patient's initial sepsis screen is negative. Risk Assessment: Do you want to hurt yourself or someone else? Patient reports no desire to harm self or others. Onset of symptoms was August 13, 2022 at 18:00. 21:01 Method Of Arrival: EMS: [facility] vc1 21:01 Acuity: GULSHAN 3 vc1 Triage Assessment: 21:08 General: Appears in no apparent distress. comfortable, Behavior is cooperative, vc1 appropriate for age, anxious. Pain: Complains of pain in "everywhere" Pain currently is 10 out of 10 on a pain scale. EENT: No deficits noted. Neuro: Melton Agitation-Sedation Scale (RASS): 0 - Alert and Calm Level of Consciousness is awake, alert, obeys commands, Oriented to person, place, time, situation, Appropriate for age Reports dizziness, weakness Possible syncope, or seizure. Cardiovascular: No deficits noted. Respiratory: Airway is patent Respiratory effort is even, unlabored, Respiratory pattern is regular, symmetrical. GI: Reports nausea. : No deficits noted. Derm: No deficits noted. No signs and/or symptoms reported regarding the dermatologic system. Musculoskeletal: No deficits noted. No signs and/or symptoms reported regarding the musculoskeletal system. WORM GROWER: 21:05 LMP N/A - Depo-provera vc1 Historical: - Allergies: 21:05 No Known Allergies; vc1 - PMHx: 21:05 Anxiety; Bipolar disorder; Depression; Kidney tumor; Schizophrenia; Seizures; Brain vc1 Tumor; - PSHx: 21:05 Kidney tumor removed; Right Nephrectomy; vc1 - Immunization history:: Adult Immunizations up to date, Client reports receiving the 2nd dose of the Covid vaccine. - Social history:: Smoking status: Patient denies any tobacco usage or history of. Screenin:08 Abuse screen: Denies threats or abuse. Nutritional screening: No deficits noted. vc1 Tuberculosis screening: No symptoms or risk factors identified. Fall Risk No fall in past 12 months (0 pts). Secondary diagnosis (15 points) seizures, No IV (0 pts). Ambulatory Aid- None/Bed Rest/Nurse Assist (0 pts). Gait- Normal/Bed Rest/Wheelchair (0 pts) Mental Status- Oriented to own ability (0 pts). Total Quinn Fall Scale indicates No Risk (0-24 pts). Assessment: 22:07 Reassessment: No changes from previously documented assessment. Patient and/or family vc1 updated on plan of care and expected duration. Pain level reassessed. Pt ambulated to the bathroom. General: Appears in no apparent distress. Behavior is cooperative, appropriate for age. 22:12 Reassessment: Patient states feeling better. Patient states symptoms have improved. ke1 23:24 Reassessment: No changes from previously documented assessment. Patient states feeling ke1 better. Patient states symptoms have improved. Vital Signs: 21:01 BP 137 / 100; Pulse 107; Resp 15; Temp 98.1(O); Pulse Ox 100% ; Pain 10/10; vc1 21:07 BP 131 / 93; Weight 74.39 kg; Height 2 ft. 1 in. (63.50 cm); vc1 22:12 BP 138 / 103; Pulse 90; Resp 15; Temp 98.2(O); Pulse Ox 100% ; Pain 0/10; ke1 23:25 BP 116 / 82; Pulse 86; Resp 15; Pulse Ox 99% on R/A; Pain 0/10; ke1 21:07 Body Mass Index 184.49 (74.39 kg, 63.50 cm) vc1 [place] Coma Score: 21:08 Eye Response: spontaneous(4). Verbal Response: oriented(5). Motor Response: obeys vc1 commands(6). Total: 15. ED Course: 20:46 Patient arrived in ED. tw5 20:59 Hardy Rich MD is Attending Physician. kdr 21:01 Jenifer Tucker, RN is Primary Nurse. vc1 21:05 Triage completed. vc1 21:08 Arm band placed on right wrist. vc1 21:10 Patient has correct armband on for positive identification. Bed in low position. Call vc1 light in reach. Side rails up X2. Seizure precautions initiated. Client placed on continuous cardiac and pulse oximetry monitoring. NIBP monitoring applied. 21:10 Missed attempt(s): 22 gauge Bleeding controlled, band aid applied, catheter tip intact. vc1 21:40 Inserted saline lock: 22 gauge in left antecubital area, using aseptic technique. Blood vc1 collected. 21:40 Chem 7 Sent. vc1 21:40 CBC with Diff Sent. vc1 23:57 No provider procedures requiring assistance completed. IV discontinued. ke1 Administered Medications: 21:40 Drug: NS 0.9% 1000 ml Route: IV; Rate: 1 bolus; Site: left antecubital; vc1 22:20 Follow up: IV Status: Completed infusion ke1 Medication: 21:10 VIS not applicable for this client. vc1 Outcome: 23:28 Discharge ordered by . kdr 23:57 Discharged to home ambulatory. ke1 23:57 Condition: good 23:57 Discharge instructions given to patient. 23:58 Patient left the ED. ke1 Signatures: Hardy Rich MD MD [facility] tw5 Jenifer Tucker, RN RN vc1 Justo Bob RN RN ke1
--- NOTE | 2022-08-13 23:28 | EDPHYS ---
Physician Documentation [facility] Name: Kitty Wall Age: 31 yrs Sex: Female : 1990 Arrival Date: 08/13/2022 Time: 20:46 Bed 8 Private MD: ED Physician Hardy Rich HPI: 08/14 19:08 This 31 yrs old Female presents to ER via EMS with complaints of Seizure. kdr 19:08 EMS states they were called out for a possible seizure. When they arrived at the scene, kdr the patient was standing outside of the home and not apparently postictal in any way. Patient states that between 6 PM and 7 PM she was taking a bath and either passed out or may have had a seizure. Since then she has been weak and shaky and nauseated. She has no other complaints at this time. There is no evidence of trauma. The patient is nontoxic and stable in the ED. Not requiring any immediate intervention.. Onset: The symptoms/episode began/occurred suddenly, just prior to arrival. Severity of symptoms: At their worst the symptoms were mild in the emergency department the symptoms have resolved. It is unknown whether or not the patient has had similar symptoms in the past. The patient has not recently seen a physician. CLAIMS COUNSEL: 08/13 21:05 LMP N/A - Depo-provera vc1 Historical: - Allergies: 21:05 No Known Allergies; vc1 - PMHx: 21:05 Anxiety; Bipolar disorder; Depression; Kidney tumor; Schizophrenia; Seizures; Brain vc1 Tumor; - PSHx: 21:05 Kidney tumor removed; Right Nephrectomy; vc1 - Immunization history:: Adult Immunizations up to date, Client reports receiving the 2nd dose of the Covid vaccine. - Social history:: Smoking status: Patient denies any tobacco usage or history of. ROS: 08/14 19:08 Constitutional: Negative for fever, chills, and weight loss, Eyes: Negative for injury, kdr pain, redness, and discharge, ENT: Negative for injury, pain, and discharge, Neck: Negative for injury, pain, and swelling, Cardiovascular: Negative for chest pain, palpitations, and edema, Respiratory: Negative for shortness of breath, cough, wheezing, and pleuritic chest pain, Abdomen/GI: Negative for abdominal pain, nausea, vomiting, diarrhea, and constipation, Back: Negative for injury and pain, : Negative for injury, bleeding, discharge, and swelling, MS/Extremity: Negative for injury and deformity, Skin: Negative for injury, rash, and discoloration, Psych: Negative for depression, anxiety, suicide ideation, homicidal ideation, and hallucinations, Allergy/Immunology: Negative for hives, rash, and allergies, Endocrine: Negative for neck swelling, polydipsia, polyuria, polyphagia, and marked weight changes, Hematologic/Lymphatic: Negative for swollen nodes, abnormal bleeding, and unusual bruising. Neuro: Positive for seizure activity, weakness. Exam: 19:08 Constitutional: This is a well developed, well nourished patient who is awake, alert, kdr and in no acute distress. Head/Face: Normocephalic, atraumatic. Eyes: Pupils equal round and reactive to light, extra-ocular motions intact. Lids and lashes normal. Conjunctiva and sclera are non-icteric and not injected. Cornea within normal limits. Periorbital areas with no swelling, redness, or edema. Neck: Trachea midline, no thyromegaly or masses palpated, and no cervical lymphadenopathy. Supple, full range of motion without nuchal rigidity, or vertebral point tenderness. No Meningismus. Chest/axilla: Normal chest wall appearance and motion. Nontender with no deformity. No lesions are appreciated. Cardiovascular: Regular rate and rhythm with a normal S1 and S2. No gallops, murmurs, or rubs. Normal PMI, no JVD. No pulse deficits. Respiratory: Lungs have equal breath sounds bilaterally, clear to auscultation and percussion. No rales, rhonchi or wheezes noted. No increased work of breathing, no retractions or nasal flaring. Abdomen/GI: Soft, non-tender, with normal bowel sounds. No distension or tympany. No guarding or rebound. No evidence of tenderness throughout. Back: No spinal tenderness. No costovertebral tenderness. Full range of motion. Skin: Warm, dry with normal turgor. Normal color with no rashes, no lesions, and no evidence of cellulitis. MS/ Extremity: Pulses equal, no cyanosis. Neurovascular intact. Full, normal range of motion. Neuro: Awake and alert, GCS 15, oriented to person, place, time, and situation. Cranial nerves II-XII grossly intact. Motor strength 5/5 in all extremities. Sensory grossly intact. Cerebellar exam normal. Normal gait. Psych: Awake, alert, with orientation to person, place and time. Behavior, mood, and affect are within normal limits. Vital Signs: 08/13 21:01 BP 137 / 100; Pulse 107; Resp 15; Temp 98.1(O); Pulse Ox 100% ; Pain 10/10; vc1 21:07 BP 131 / 93; Weight 74.39 kg; Height 2 ft. 1 in. (63.50 cm); vc1 22:12 BP 138 / 103; Pulse 90; Resp 15; Temp 98.2(O); Pulse Ox 100% ; Pain 0/10; ke1 23:25 BP 116 / 82; Pulse 86; Resp 15; Pulse Ox 99% on R/A; Pain 0/10; ke1 21:07 Body Mass Index 184.49 (74.39 kg, 63.50 cm) vc1 Matthew Coma Score: 21:08 Eye Response: spontaneous(4). Verbal Response: oriented(5). Motor Response: obeys vc1 commands(6). Total: 15. MDM: 23:28 Patient medically screened. kdr 08/14 19:08 Data reviewed: vital signs, nurses notes, lab test result(s), radiologic studies. kdr Counseling: I had a detailed discussion with the patient and/or guardian regarding: the historical points, exam findings, and any diagnostic results supporting the discharge/admit diagnosis, lab results, radiology results, the need for outpatient follow up. ED course: Patient was stable in the ED and nontoxic. The patient had no apparent seizure activity while in the ED. The patient was physically stable and did not require any further intervention. Patient was discharged in good condition and happy with the care provided the plan for discharge and follow-up. 08/13 21:05 Order name: CBC with Diff kdr 08/13 21:05 Order name: Chem 7 kdr 08/13 21:05 Order name: CT Head Brain wo Cont kdr 08/13 21:43 Order name: CT; Complete Time: 23:23 EDMS 08/13 21:50 Order name: CBC with Automated Diff; Complete Time: 23:23 EDMS 08/13 22:01 Order name: Basic Metabolic Panel; Complete Time: 23:23 EDMS Administered Medications: 08/13 21:40 Drug: NS 0.9% 1000 ml Route: IV; Rate: 1 bolus; Site: left antecubital; vc1 22:20 Follow up: IV Status: Completed infusion ke1 Disposition Summary: 08/13/22 23:28 Discharge Ordered Location: Home kdr Problem: an acute exacerbation kdr Symptoms: have improved kdr Condition: Stable kdr Diagnosis - Chronic kidney disease, stage 2 (mild) kdr - Other seizures - breakthrough kdr Followup: kdr - With: Private Physician - When: 2 - 3 days - Reason: If symptoms return, Further diagnostic work-up, Recheck today's complaints, Continuance of care, Re-evaluation by your physician Discharge Instructions: - Discharge Summary Sheet kdr - Seizure, Adult kdr - Chronic Kidney Disease, Adult, [id number] kdr Forms: - Medication Reconciliation Form kdr - Thank You Letter kdr - Family Work Release ke1 Signatures: Dispatcher [employer] Hardy Martinez MD MD kdr Jenifer Tucker RN RN vc1 Justo Bob RN ke1
[2022-08-14 00:15] VITALS: TEMP 98.2
[2022-08-14 00:16] VITALS: BP 116/82; O2SAT 99
== END 2022-08-13 23:58 | disposition home or self-care (01) ==
LOC: ER 20:45
DX: G40.89 Other seizures (principal); N18.2 Chronic kidney disease, stage 2 (mild)
CPT/HCPCS: 36415; 70450; 80048; 85025; 96360; 99284; J7030

== ENCOUNTER 2022-12-11 18:44 | Emergency (ER) | payer OTHER ==
--- OUTSIDE RECORDS SUMMARY | 2022-12-11 18:53 | XMS REPORT | Continuity of Care Document ---
:1990 Author Organization [facility] t Address [address] [place] [address] Care Team Providers Name Role Phone PREET ORTIZ Primary Care Physician Unavailable Shantelle Bates Attending Clinician Unavailable JOSHUA LOPEZ Attending Clinician Unavailable JOSHUA LOPEZ Attending Clinician Unavailable ALBERTA HURST Attending Clinician Unavailable VANDANA FENTON Attending Clinician Unavailable Deya, [facility] Attending Clinician Unavailable Alberta Angulo Attending Clinician [phone] PRECIOUS VERDUGO Attending Clinician Unavailable Precious Verdugo MD Attending Clinician Pob, [facility] Main Attending Clinician Unavailable Tari Trivedi MD Attending Clinician TARI TRIVEDI Attending Clinician Unavailable Doctor Unassigned, [place] Attending Clinician Unavailable Eliceo OSMAN, Vandana Phipps Attending Clinician DELILAH JOYA Attending Clinician Unavailable SABRINA WOOTEN RP Attending Clinician Unavailable Sabrina Wooten MD, Rp Attending Clinician PREET ORTIZ Attending Clinician Unavailable [facility] Attending Clinician Unavailable Pritesh Bryant Attending Clinician Preet Ortiz MD Attending Clinician LA BRANCH Attending Clinician Unavailable Brad Barnes MD Attending Clinician Flaquito URIAS, Connie Attending Clinician Unavailable Jimmy Madrid MD Attending Clinician Barbara SOMAN, Tania Attending Clinician PRITESH GREENFIELD Attending Clinician Unavailable JIMMY MADIRD Attending Clinician Unavailable Joshua Lopez MD Attending Clinician Only, Adc Test Attending Clinician Unavailable Akhil Dumas MD Attending Clinician AKHIL DUMAS Attending Clinician Unavailable Josseline Capone MD Attending Clinician JOSSELINE CAPONE Attending Clinician Unavailable FABIOLA IZAGUIRRE Attending Clinician Unavailable ASHLEY HODGES Attending Clinician Unavailable KASH DU Attending Clinician Unavailable PAOLA SAEZ Attending Clinician Unavailable ABUNDIO OLIVA Attending Clinician Unavailable GIL CORTEZ Attending Clinician Unavailable GIL CORTEZ Attending Clinician Unavailable RENATO SANTIAGO Attending Clinician Unavailable SHAKIR REDDY Attending Clinician Unavailable Shea Medina DO Attending Clinician SHEA MEDINA Attending Clinician Unavailable Renato Santiago MD Attending Clinician Mariana Cooley Attending Clinician UNKNOWN, ATTENDING Attending Clinician Unavailable DAVID CORRAL III Attending Clinician Unavailable COCO ANDERSON Attending Clinician Unavailable Fabiola Cadet Attending Clinician JAMEY HIGGINBOTHAM Attending Clinician Unavailable Jamey Higginbotham DO Attending Clinician Nurse, [facility] Attending Clinician Unavailable YOVANNY CHOI Attending Clinician Unavailable KATARINA IWGGINS Attending Clinician Unavailable ROSANA RANDHAWA Attending Clinician Unavailable ZACH ALBA Attending Clinician Unavailable Jennifer NORRIS, Brian Attending Clinician BRIAN EDWARDS Attending Clinician Unavailable HI GREENFIELD Attending Clinician Unavailable RAJ PABLO Attending Clinician Unavailable YANIQUE ROLON Attending Clinician Unavailable MARCELO POWELL III Attending Clinician Unavailable ALFREDO EUGENE M.D. Attending Clinician Unavailable ALONZO GONZALES M.D. Attending Clinician Unavailable LAYA FELIX M.D. Attending Clinician Unavailable JOSHUA LOPEZ Admitting Clinician Unavailable PRECIOUS VERDUGO Admitting Clinician Unavailable SABRINA WOOTEN RP Admitting Clinician Unavailable Joshua Lopez MD Admitting Clinician YANIQUE ROLON Admitting Clinician Unavailable MARCELO POWELL III Admitting Clinician Unavailable HI GREENFIELD Admitting Clinician Unavailable Payers Payer Name Policy Type Policy Number Effective Date Expiration Date Bib RUDD [id number] 2015 HEALTHCARE 00:00:00 MEDICAID [place] C1 [id number] 2018 Common HEALTHCARE 00:00:00 [facility] C1 [id number] 2018 [id number] [id number] 2018 Common [facility] [id number] 2018 Common [facility] [id number] 2018 Common [facility]CARE [facility] [id number] 2018 Common HEALTHCARE 00:00:00 [facility] C1 [id number] 2018 Common HEALTHCARE 00:00:00 [facility] TOBIN Srinivasan [id number] 2018 Common HEALTHCARE 00:00:00 [facility] Problems Condition Condition Condition Status Onset Resolution [...] of intraepith intraepith 00:00: g of this [place] elial elial 00 note Medical lesion lesion might be Branch (LGSIL) on (LGSIL) on different cervical cervical from the Pap smear Pap smear original. +hpv, pending colpo appt Gastritis Gastritis Disease Active 2020-11 Uni vers 0-10 ity of 00:00: [place] [facility] Vaginal Vaginal Disease Active Univers discharge discharge 9-24 ity of 00:00: [place] [facility] Dysuria Dysuria Disease Active Univers 9-24 ity of 00:00: [place] [facility] Encounter Encounter Disease Active Uni [...] Added automatic ally from request for surgery [id number] Acute left Acute left Disease Active U nivers flank pain flank pain 6-29 it y of 00:00: Medical Branch BRYAN (acute BRYAN (acute Disease Active U nivers kidney kidney 6-25 ity of injury) injury) 00:00: Medical Branch RLS RLS Disease Active Univers (restless (restless 2-22 ity of legs legs 00:00: [place] syndrome) syndrome) 00 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) Bacterial Bacterial Disease Active 2019-11 Uni vers vaginitis vaginitis 0-19 ity of 00:00: Medical Branch Candidiasi Candidiasi Disease Active 2019-11 U nivers s of vulva s of vulva 0-19 it y of and vagina and vagina [place] [facility] Cervical Cervical Disease Active 2019-11 Unive rs high risk high risk 0-19 ity of human human 00:00: [place] papillomav papillomav 00 Me dical irus (HPV) irus (HPV) Br anch DNA 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 Iron Iron Disease Active 2019-11 Univers deficiency deficiency 0-16 it y of 00:00: [facility] Branch Chronic Chronic Disease Active 2019-11 Univers fatigue fatigue 0-16 ity of 00:00: [place] [facility] Branch Depression Depression Disease Active Overview : [...] urgent/em ergent care including calling Suicide Hotline ([phone]) or 911.Follo w up in one month with Psycholog ist, Counselor , Support group, Psycholog ist/Couns elor/Supp ortGroup/ Psychiatr ist and PCP Acute Acute Disease Active Overview: Univer s [...] Formattin ity of 00:00: g of this [place] note Medical might be Branch different from [...] : stableFol low up in: three months Nausea Nausea Disease Active Univers 6-10 ity [...] Status Status Disease Active Univers post post 1-23 ity of nephrectom [place]rectom [place] Status Status Disease Active Univers post post 1-23 [place]y of nephrectom nephrectom [place] Pulmonary Pulmonary Disease Active Uni vers nodules nodules 1-23 ity of 00:00: [place] [address] Medical Branch Renal mass Renal mass Disease Active 2018-11 Overview : Univers 1-20 Formattin ity of 00:00: g of this [place] 00 note Medical might be Branch different from the original. Added automatic ally from request for surgery [id number] Angiomyoli Angiomyoli Disease Active 2018-11 Overview : Univers guevara of guevara of 20 Formattin ity o f both both 00:00: g of this [place] kidneys kidneys 00 note Medical might be Branch different from the original. 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 Physic i of kidney of kidney ans Seizure Seizure Problem Active Common disorder disorder [facility] Back pain Back pain Problem Active Com mon [facility] Obesity Obesity Problem Active Common [facility] Insomnia Insomnia Problem Active Commo n [facility] 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 - [facility]I depressive [facility] Angiomyoli Angiomyoli Problem Active C ommon guevara of guevara of Spirit left left - [facility] kidney kidney [facility] 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 - [facility] n n [facility] 35-49) Seizure Seizures Problem Active Common [facility] Mental Mental Problem Active [facility] retardatio retardatio Ph ysici n n ans [id number] 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[facility] of kidney [facility] [id number] 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 esophagiti [facility] [id number] Uses Problem Active Co mmon control [facility] Onychomyco Onychomyco Problem Active C ommon sis sis [facility] Panic Panic Problem Active Common disorder attacks [facility] Angiomyoli Angiomyoli Problem Active U T guevara of guevara of Physici kidney kidney ans [id number] Seasonal Problem Active Comm on allergies [facility] [id number] Problem Active Com mon test Spirit performed, [facility] Tuberous Tuberous Problem Active [facility] sclerosis sclerosis [...] KNOWN Drug Active Univers ALLERGIE Class ity [facility] Medical [place] Social History Social Habit Start Date Stop Date Quantity Comments Source History of Common [facility] - Tobacco Use [facility] Sex Assigned At Common Sp escobar - [facility] History SDMI University o f Alcohol Std [place] Medical Drinks Branch History [facility] University o f Alcohol Binge [place] [facility] al Branch History [facility] University o f Alcohol Comment [place] Med ical Branch Exposure to 2022-10-29 2022-11-08 Not sure [facility]-CoV-2 00:00:00 09:40:00 [facility] (event) Branch Tobacco use and 2022-08-11 2022-08-11 Smokeless tobacco Un iversity of exposure 00:00:00 00:00:00 non-user [facility] Branch Alcohol intake 2022-08-11 2022-08-11 Lifetime University of 00:00:00 00:00:00 non-drinker [facility] (finding) Branch Education 2021-05-07 2021-05-07 13 University of 00:00:00 00:00:00 [place] [facility] History SDMI 2020-01-17 2020-01-17 1 University o f Alcohol Frequency 00:00:00 00:00:00 [place] M edical Branch History [facility] 2019-09-26 2019-09-26 5 University o f Financial 00:00:00 00:00:00 [place] [facility] History SDMI Food 2019-09-26 2019-09-26 1 Univers ity of Worry 00:00:00 00:00:00 [place] [facility] History SDMI Food 2019-09-26 2019-09-26 1 Univers ity of Scarcity 00:00:00 00:00:00 [place] [facility] History [facility] 2019-09-26 2019-09-26 2 University o f Transport Med 00:00:00 00:00:00 [place] Medic al Branch History [facility] 2019-09-26 2019-09-26 2 University o f Transport Non-Med 00:00:00 00:00:00 [facility] edical Branch Smoking Status Start Date Stop Date Source Never Smoker [facility] Medications Ordered Filled Start Stop Current Ordering Indication Dosage Frequency Signature Comments Components Source Medication Medication Date Date Medication? Clinician (SIG) Name Name medroxyPROG 2021-11- No [id number] 150mg Univers ESTERone 01-09 ity of (DEPO-PROVE 17:15: 16:20 [place] RA) syringe 00 :00 Medical 150 mg [place] medroxyPROG 2021-11- No [id number] 150mg 150 mg, Univers ESTERone 01-09 Intramuscu ity of (DEPO-PROVE 17:15: 16:20 lar, ONCE, [place] RA) syringe 00 :00 1 dose, On Me dical 150 mg [facility] 11/08/22 at 1115, Routine fluconazole 2021- No [id number] 150mg Take 1 Univers (DIFLUCAN) 08-11 tablet by ity of 150 mg 00:00: 04:59 [place] tablet 00 :00 now for 1 Medical dose. Branch fluconazole 2021- No [id number] 150mg Take 1 Univers (DIFLUCAN) 08-11- tablet by ity of 150 mg 00:00: 04:59 mouth [place] tablet 00 :00 now for 1 Medical dose. [place] fluconazole 2021- No [id number] 150mg Take 1 Univers (DIFLUCAN) 08-11 tablet by ity of 150 mg 00:00: 04:59 mouth [place] tablet 00 :00 now for 1 Medical dose. [place] fluconazole 2021- No [id number] 150mg Take 1 Univers (DIFLUCAN) 08-11 tablet by ity of 150 mg 00:00: 04:59 mouth [place] tablet 00 :00 now for 1 Medical dose. [place] fluconazole 2021- No [id number] 150mg Take 1 Univers (DIFLUCAN) 08-11 tablet by ity of 150 mg 00:00: 04:59 mouth [place] tablet 00 :00 now for 1 Medical dose. [place] fluconazole No [id number] 150mg Take 1 Univers (DIFLUCAN) 08-11 tablet by ity of 150 mg 00:00: 04:59 mouth [place] tablet 00 :00 now for 1 Medical dose. [place] medroxyPROG 2021- No [id number] 150mg Univers ESTERone 08-09 ity of (DEPO-PROVE 17:30: 16:45 [place] RA) syringe 00 :00 Medical 150 mg [place] medroxyPROG 2021- No [id number] 150mg 150 mg, Univers ESTERone 08-09 Intramuscu ity of (DEPO-PROVE 17:30: 16:45 lar, ONCE, [place] RA) syringe 00 :00 1 dose, On Me dical 150 mg [place]ry [place] 08/09/22 at 1230, Routine Lamotrigine 2020-11 Yes [id number] 1{tbl} Take 1 Univers 100 mg TbDL 1-18 tablet by ity of 00:00: mouth 2 [place] 00 (two) Medical times Branch daily. Lamotrigine 2020-11 Yes [id number] 1{tbl} Take 1 Univers 100 mg TbDL 1-18 tablet by ity of 00:00: mouth 2 [place] 00 (two) Medical times Branch daily. Lamotrigine 2020-11 Yes [id number] 1{tbl} Take 1 Univers 100 mg TbDL 1-18 tablet by ity of 00:00: mouth 2 [place] (two) Medical times Branch daily. Lamotrigine 2020-11 Yes [id number] 1{tbl} Take 1 Univers 100 mg TbDL 1-18 tablet by ity of 00:00: mouth 2 [place] (two) Medical times Branch daily. Lamotrigine 2020-11 Yes [id number] 1{tbl} Take 1 Univers 100 mg TbDL 1-18 tablet by ity of 00:00: mouth 2 [place] (two) Medical times Branch daily. Lamotrigine 2020-11 Yes [id number] 1{tbl} Take 1 Univers 100 mg TbDL 1-18 tablet by ity of 00:00: mouth [place] (two) Medical times Branch daily. Lamotrigine 2020-11 Yes [id number] 1{tbl} Take 1 Univers 100 mg TbDL 1-18 tablet by ity of 00:00: mouth [place] (two) Medical times Branch daily. Lamotrigine 2020-11 Yes [id number] 1{tbl} Take 1 Univers 100 mg TbDL 1-18 tablet by ity of 00:00: mouth [place] (two) Medical times Branch daily. Lamotrigine 2020-11 Yes [id number] 1{tbl} Take 1 Univers 100 mg TbDL 1-18 tablet by ity of 00:00: mouth [place] (two) Medical times Branch daily. Lamotrigine 2020-11 Yes [id number] 1{tbl} Take 1 Univers 100 mg TbDL 1-18 tablet by ity of 00:00: mouth [place] (two) Medical times Branch daily. Lamotrigine 2020-11 Yes [id number] 1{tbl} Take 1 Univers 100 mg TbDL 1-18 tablet by ity of 00:00: mouth 2 [place] (two) Medical times Branch daily. Lamotrigine 2020-11 Yes [id number] 1{tbl} Take 1 Univers 100 mg TbDL 1-18 tablet by ity of 00:00: mouth 2 [place] (two) Medical times Branch daily. Lamotrigine 2020-11 Yes [id number] 1{tbl} Take 1 Univers 100 mg TbDL 1-18 tablet by ity of 00:00: mouth 2 [place] (two) Medical times Branch daily. Lamotrigine 2020-11 Yes [id number] 1{tbl} Take 1 Univers 100 mg TbDL 1-18 tablet by ity of 00:00: mouth 2 [place] (two) Medical times Branch daily. Lamotrigine 2020-11 Yes [id number] 1{tbl} Take 1 Univers 100 mg TbDL 1-18 tablet by ity of 00:00: mouth 2 [place] (two) Medical times Branch daily. Lamotrigine 2020-11 Yes [id number] 1{tbl} Take 1 Univers 100 mg TbDL 1-18 tablet by ity of 00:00: mouth 2 [place] (two) Medical times Branch daily. Lamotrigine 2020-11 Yes [id number] 1{tbl} Take 1 Univers 100 mg TbDL 1-18 tablet by ity of 00:00: mouth 2 [place] (two) Medical times Branch daily. medroxyPROG 2020-11- No [id number] 150mg Univers ESTERone 0-18 - ity of (DEPO-PROVE 14:15: 14:14 [place] RA) 00 :00 Medical injection Branch 150 mg medroxyPROG 2020-11- No [id number] 150mg Univers ESTERone 0-18 - ity of (DEPO-PROVE 14:15: 14:14 [place] RA) 00 :00 Medical injection Branch 150 mg medroxyPROG 2020-11- No [id number] 150mg Univers ESTERone 0-18 - ity of (DEPO-PROVE 14:15: 14:14 [place] RA) 00 :00 Medical injection Branch 150 mg medroxyPROG 2020-112- No [id number] 150mg Univers ESTERone 0-18 -19 ity of (DEPO-PROVE 14:15: 14:14 [place] RA) 00 :00 Medical injection Branch 150 mg medroxyPROG 2020-11- No [id number] 150mg 150 mg, Univers ESTERone 0-18 - Intramuscu ity of (DEPO-PROVE 14:15: 14:14 [facility], [place] RA) 00 :00 [id number], Medical injection 4 doses, Branch 150 mg First dose on Mon08/30/21 at 0915, Last dose on Mon05/09/22 at 0915, Routine medroxyPROG 2020-11- No [id number] 150mg 150 mg, Univers ESTERone 0-18 07-05 Intramuscu ity of (DEPO-PROVE 14:15: 14:26 [place] e[place] RA) 00 :00 [id number], Medical injection 4 doses, Branch 150 mg First dose on Mon08/30/21 at 0915, Last dose on Mon05/09/22 at 0915, Routine albuterol 2020-11 Yes [id number] INHALE 1 Univers (PROAIR 0-18 TO 2 PUFFS ity of HFA) 90 00:00: BY MOUTH [place] mcg/actuati 00 EVERY 4 TO Me dical on inhaler 6 HOURS Bra nch NEEDED albuterol 2020-11 Yes [id number] INHALE 1 Univers (PROAIR 0-18 TO 2 PUFFS ity of HFA) 90 00:00: BY MOUTH [place] mcg/actuati 00 EVERY 4 TO Me dical on inhaler 6 HOURS Bra nch NEEDED albuterol 2020-11 Yes [id number] INHALE 1 Univers (PROAIR 0-18 TO 2 PUFFS ity of HFA) 90 00:00: BY MOUTH [place] mcg/actuati 00 EVERY 4 TO Me dical on inhaler 6 HOURS Bra nch NEEDED albuterol 2020-11 Yes [id number] INHALE 1 Univers (PROAIR 0-18 TO 2 PUFFS ity of HFA) 90 00:00: BY MOUTH [place] mcg/actuati 00 EVERY 4 TO Me dical on inhaler 6 HOURS Bra nch NEEDED albuterol 2020-11 Yes [id number] INHALE 1 Univers (PROAIR 0-18 TO 2 PUFFS ity of HFA) 90 00:00: BY MOUTH [place] mcg/actuati 00 EVERY 4 TO Me dical on inhaler 6 HOURS Bra nch NEEDED albuterol 2020-11 Yes [id number] INHALE 1 Univers (PROAIR 0-18 TO 2 PUFFS ity of HFA) 90 00:00: BY MOUTH [place] mcg/actuati 00 EVERY 4 TO Me dical on inhaler 6 HOURS Bra nch NEEDED albuterol 2020-11 Yes [id number] INHALE 1 Univers (PROAIR 0-18 TO 2 PUFFS ity of HFA) 90 00:00: BY MOUTH [place] mcg/actuati 00 EVERY 4 TO Me dical on inhaler 6 HOURS Bra nch NEEDED albuterol 2020-11 Yes [id number] INHALE 1 Univers (PROAIR 0-18 TO 2 PUFFS ity of HFA) 90 00:00: BY MOUTH [place] mcg/actuati 00 EVERY 4 TO Me dical on inhaler 6 HOURS Bra nch NEEDED albuterol 2020-11 Yes [id number] INHALE 1 Univers (PROAIR 0-18 TO 2 PUFFS ity of HFA) 90 00:00: BY MOUTH [place] mcg/actuati 00 EVERY 4 TO Me dical on inhaler 6 HOURS Bra nch NEEDED albuterol 2020-11 Yes [id number] INHALE 1 Univers (PROAIR 0-18 TO 2 PUFFS ity of HFA) 90 00:00: BY MOUTH [place] mcg/actuati 00 EVERY 4 TO Me dical on inhaler 6 HOURS Bra nch NEEDED albuterol 2020-11 Yes [id number] INHALE 1 Univers (PROAIR 0-18 TO 2 PUFFS ity of HFA) 90 00:00: BY MOUTH [place] mcg/actuati 00 EVERY 4 TO Me dical on inhaler 6 HOURS Bra nch NEEDED albuterol 2020-11 Yes [id number] INHALE 1 Univers (PROAIR 0-18 TO 2 PUFFS ity of HFA) 90 00:00: BY MOUTH [place] mcg/actuati 00 EVERY 4 TO Me dical on inhaler 6 HOURS Bra nch NEEDED albuterol 2020-11 Yes [id number] INHALE 1 Univers (PROAIR 0-18 TO 2 PUFFS ity of HFA) 90 00:00: BY MOUTH [place] mcg/actuati 00 EVERY 4 TO Me dical on inhaler 6 HOURS Bra nch NEEDED albuterol 2020-11 Yes [id number] INHALE 1 Univers (PROAIR 0-18 TO 2 PUFFS ity of HFA) 90 00:00: BY MOUTH [place] mcg/actuati 00 EVERY 4 TO Me dical on inhaler 6 HOURS Bra nch NEEDED albuterol 2020-11 Yes [id number] INHALE 1 Univers (PROAIR 0-18 TO 2 PUFFS ity of HFA) 90 00:00: BY MOUTH [place] mcg/actuati 00 EVERY 4 TO Me dical on inhaler 6 HOURS Bra nch NEEDED albuterol 2020-11 Yes [id number] INHALE 1 Univers (PROAIR 0-18 TO 2 PUFFS ity of HFA) 90 00:00: BY MOUTH [place] mcg/actuati 00 EVERY 4 TO Me dical on inhaler 6 HOURS Bra nch NEEDED albuterol 2020-11 Yes [id number] INHALE 1 Univers (PROAIR 0-18 TO 2 PUFFS ity of HFA) 90 00:00: BY MOUTH [place] mcg/actuati 00 EVERY 4 TO Me dical on inhaler 6 HOURS Bra nch NEEDED Xulane Xulane 2019-11 No Xulane 150-35 150-35 0-22 150-35 MCG/24HR MCG/24HR 00:00: MCG/24HR 00 Xulane Xulane 2019-11 No Xulane 150-35 150-35 0-22 150-35 MCG/24HR MCG/24HR 00:00: MCG/24HR 00 Xulane Xulane 2019-11 No Xulane 150-35 150-35 0-22 150-35 MCG/24HR MCG/24HR 00:00: MCG/24HR 00 Xulane Xulane 2019-11 No Xulane 150-35 150-35 0-22 150-35 MCG/24HR MCG/24HR 00:00: MCG/24HR 00 Xulane Xulane 2019-11 No Xulane 150-35 150-35 0-22 150-35 MCG/24HR MCG/24HR 00:00: MCG/24HR 00 Xulane Xulane 2019- No Xulane 150-35 150-35 0-22 150-35 MCG/24HR MCG/24HR 00:00: MCG/24HR 00 Xulane Xulane 2019- No Xulane 150-35 150-35 0-20 150-35 MCG/24HR MCG/24HR 00:00: MCG/24HR 00 Xulane Xulane 2019- No Xulane 150-35 150-35 0-20 150-35 MCG/24HR MCG/24HR 00:00: MCG/24HR 00 Xulane Xulane 2019- No Xulane 150-35 150-35 0-20 150-35 MCG/24HR MCG/24HR 00:00: MCG/24HR 00 Pippa Das 2019-1 No Pippa 150-35 150-35 0-20 150-35 MCG/24HR MCG/24HR 00:00: MCG/24HR 00 Pippa Das 2019-1 No Pippa 150-35 150-35 0-20 150-35 MCG/24HR MCG/24HR 00:00: MCG/24HR 00 Pippa Das 2019-1 No Pippa 150-35 150-35 0-20 150-35 MCG/24HR MCG/24HR 00:00: MCG/24HR 00 Pippa Das 2019-1 No Pippa 150-35 150-35 0-20 150-35 MCG/24HR MCG/24HR 00:00: MCG/24HR 00 Benzonatate Benzonatate 2019-0 2020- No 1{capsu Benzonatat 100 MG 100 MG 08-12 10-30 le_as_n e 100 MG 00:00: 00:00 eeded} 00 :00 Benzonatate Benzonatate 2019-0 2020- No 1{capsu Benzonatat 100 MG 100 MG 9 10-30 le_as_n e 100 MG 00:00: 00:00 eeded} 00 :00 Benzonatate Benzonatate 2019-0 2020- No 1{capsu Benzonatat 100 MG 100 MG 9 10-30 le_as_n e 100 MG 00:00: 00:00 eeded} 00 :00 Benzonatate Benzonatate 2019-0 2020- No 1{capsu Benzonatat 100 MG 100 MG 30 10-30 le_as_n e 100 MG 00:00: 00:00 eeded} 00 :00 Azithromyci Azithromyci 2019-0 2020- No QD Azithromyc n 250 MG n 250 MG 9 10-05 in 250 MG 00:00: 00:00 00 :00 Azithromyci Azithromyci 2019-0 2020- No QD Azithromyc n 250 MG n 250 MG 08-12 10-05 in 250 MG 00:00: 00:00 00 :00 Magnesium Magnesium 2019-0 2020- No Na Bates 1 tablet Common Oxide Oxide 9-10 10-10 as needed Spirit 00:00: 00:00 for leg - [facility] 00 :00 cramps [facility] Magnesium Magnesium 2019-0 2019- No QD Magnesium Oxide 400 Oxide 400 9-10 10-10 Oxide 400 MG MG 00:00: 00:00 MG 00 :00 Magnesium Magnesium 2019-0 2019- No QD Magnesium Oxide 400 Oxide 400 9-10 10-10 Oxide 400 MG MG 00:00: 00:00 MG 00 :00 Clonazepam Clonazepam 2018-11 Yes Na Bates 1 tablet Common 2-16 on the Spirit 00:00: tongue and - [facility]I 00 allow to [facility] as needed Medical for acute Center panic attacks Clonazepam Clonazepam 2018-11 No QD Clonazepam 0.5 MG 0.5 MG 2-16 0.5 MG 00:00: 00 Clonazepam Clonazepam 2018-11 No QD Clonazepam 0.5 MG 0.5 MG 2-16 0.5 MG 00:00: 00 Clonazepam Clonazepam 2018-11 No QD Clonazepam 0.5 MG 0.5 MG 2-16 0.5 MG 00:00: 00 Clonazepam Clonazepam 2018-11 No QD Clonazepam 0.5 MG 0.5 MG 2-16 0.5 MG 00:00: 00 Clonazepam Clonazepam 2018-11 No QD Clonazepam 0.5 MG 0.5 MG 2-16 0.5 MG 00:00: 00 Clonazepam Clonazepam 2018-11 No QD Clonazepam 0.5 MG 0.5 MG 2-16 0.5 MG 00:00: 00 Clonazepam Clonazepam 2018-11 No QD Clonazepam 0.5 MG 0.5 MG 2-16 0.5 MG 00:00: 00 Clonazepam Clonazepam 2018-11 No QD Clonazepam 0.5 MG 0.5 MG 2-16 0.5 MG 00:00: 00 Clonazepam Clonazepam 2018-11 No QD Clonazepam 0.5 MG 0.5 MG 2-16 0.5 MG 00:00: 00 Afinitor 5 Afinitor 5 Yes ALFREDO TAKE 1 UT MG Oral MG Oral 8-22 EUGENE TABLET BY P [facility]ys[facility] Tablet Tablet 14:39: M.D. MOUTH ans 34 DAILY lamoTRIgine lamoTRIgine 2014-11 Yes ALONZO WAGNER Q0.5D TAKE 1 UT 100 MG Oral 100 MG Oral 0-13 CHRISTIAN TABLET [facility] Tablet Tablet 00:00: M.D. TWICE ans 00 DAILY Giledy Giаннаvi Yes Na Bates 1 tablet Comm on [facility] Cetirizine Cetirizine Yes Na Bates take 1 Common HCl HCl tablet by [facility] every day as needed [facility] Medical allergies [employer] Lamictal Lamictal Yes Na Bates 1 tablet Common [facility] Ondansetron Ondansetron Yes Na Bates as Common HCl HCl directed [facility] Lexapro Lexapro Yes Na Bates 1 tablet Co mmon [facility] Quetiapine Quetiapine Yes Na Bates TAKE 1 Common Fumarate Fumarate TABLET BY escobar MOUTH AT [facility] BEDTIME [facility] Afinitor Afinitor Yes Na Bates 1 tablet Common [facility] Pantoprazol Pantoprazol Yes Na Bates 1 tablet Common e Sodium e Sodium [facility] Afinitor 5 Afinitor 5 No 1{table QD Afinitor 5 MG MG t} MG Ondansetron Ondansetron No Ondansetro HCl 4 MG HCl 4 MG n HCl 4 MG Magnesium Magnesium No QD Magnesium Oxide 400 Oxide 400 Oxide 400 MG MG MG Cetirizine Cetirizine No QD Cetirizine HCl 10 MG HCl 10 MG HCl 10 MG Gianvi Luanneannikolai No 1{table QD Gianvi 3-0.02 MG 3-0.02 MG t} 3-0.02 MG Quetiapine Quetiapine No Quetiapine Fumarate 50 Fumarate 50 Fumarate MG MG 50 MG Lamictal Lamictal No 1{table BID Lamictal 100 MG 100 MG t} 100 MG Lexapro 20 Lexapro 20 No 1{table QD Lexapro 20 MG MG t} MG Afinitor 5 Afinitor 5 No 1{table QD Afinitor 5 MG MG t} MG Ondansetron Ondansetron No Ondansetro HCl 4 MG HCl 4 MG n HCl 4 MG Magnesium Magnesium No QD Magnesium Oxide 400 Oxide 400 Oxide 400 MG MG MG Cetirizine Cetirizine No QD Cetirizine HCl 10 MG HCl 10 MG HCl 10 MG Gianvi Gianvi No 1{table QD Gianvi 3-0.02 MG 3-0.02 MG t} 3-0.02 MG Quetiapine Quetiapine No Quetiapine Fumarate 50 Fumarate 50 Fumarate MG MG 50 MG Lamictal Lamictal No 1{table BID Lamictal 100 MG 100 MG t} 100 MG Lexapro 20 Lexapro 20 No 1{table QD Lexapro 20 MG MG t} MG Afinitor 5 Afinitor 5 No 1{table QD Afinitor 5 MG MG t} MG Magnesium Magnesium No QD Magnesium Oxide 400 Oxide 400 Oxide 400 MG MG MG Lamictal Lamictal No 1{table BID Lamictal 100 MG 100 MG t} 100 MG Ondansetron Ondansetron No Ondansetro HCl 4 MG HCl 4 MG n HCl 4 MG Lexapro 20 Lexapro 20 No 1{table QD Lexapro 20 MG MG t} MG Quetiapine Quetiapine No Quetiapine Fumarate 50 Fumarate 50 Fumarate MG MG 50 MG Cetirizine Cetirizine No QD Cetirizine HCl 10 MG HCl 10 MG HCl 10 MG Gianvi Gianvi No 1{table QD Gianvi 3-0.02 MG 3-0.02 MG t} 3-0.02 MG Cetirizine Cetirizine No QD Cetirizine HCl 10 MG HCl 10 MG HCl 10 MG Lamictal Lamictal No 1{table BID Lamictal 100 MG 100 MG t} 100 MG Quetiapine Quetiapine No 1{table QD Quetiapine Fumarate 50 Fumarate 50 t_at_be Fumarate MG MG dtime} 50 MG Gianvi Gianvi No 1{table QD Gianvi 3-0.02 MG 3-0.02 MG t} 3-0.02 MG Lexapro 20 Lexapro 20 No 1{table QD Lexapro 20 MG MG t} MG Magnesium Magnesium No QD Magnesium Oxide 400 Oxide 400 Oxide 400 MG MG MG Ondansetron Ondansetron No Ondansetro HCl 4 MG HCl 4 MG n HCl 4 MG Afinitor 5 Afinitor 5 No 1{table QD Afinitor 5 MG MG t} MG Cetirizine Cetirizine No QD Cetirizine HCl 10 MG HCl 10 MG HCl 10 MG Lamictal Lamictal No 1{table BID Lamictal 100 MG 100 MG t} 100 MG Quetiapine Quetiapine No 1{table QD Quetiapine Fumarate 50 Fumarate 50 t_at_be Fumarate MG MG dtime} 50 MG Gianvi Gianvi No 1{table QD Gianvi 3-0.02 MG 3-0.02 MG t} 3-0.02 MG Lexapro 20 Lexapro 20 No 1{table QD Lexapro 20 MG MG t} MG Magnesium Magnesium No QD Magnesium Oxide 400 Oxide 400 Oxide 400 MG MG MG Ondansetron Ondansetron No Ondansetro HCl 4 MG HCl 4 MG n HCl 4 MG Afinitor 5 Afinitor 5 No 1{table QD Afinitor 5 MG MG t} MG Cetirizine Cetirizine No QD Cetirizine HCl 10 MG HCl 10 MG HCl 10 MG Lexapro 20 Lexapro 20 No 1{table QD Lexapro 20 MG MG t} MG Pantoprazol Pantoprazol No 1{table QD Pantoprazo e Sodium 40 e Sodium 40 t} le Sodium MG MG 40 MG Lamictal Lamictal No 1{table BID Lamictal 100 MG 100 MG t} 100 MG Quetiapine Quetiapine No Quetiapine Fumarate 50 Fumarate 50 Fumarate MG MG 50 MG Ondansetron Ondansetron No Ondansetro HCl 4 MG HCl 4 MG n HCl 4 MG Gianvi Gianvi No 1{table QD Gianvi 3-0.02 MG 3-0.02 MG t} 3-0.02 MG Afinitor 5 Afinitor 5 No 1{table QD Afinitor 5 MG MG t} MG Cetirizine Cetirizine No QD Cetirizine HCl 10 MG HCl 10 MG HCl 10 MG Lexapro 20 Lexapro 20 No 1{table QD Lexapro 20 MG MG t} MG Pantoprazol Pantoprazol No 1{table QD Pantoprazo e Sodium 40 e Sodium 40 t} le Sodium MG MG 40 MG Lamictal Lamictal No 1{table BID Lamictal 100 MG 100 MG t} 100 MG Quetiapine Quetiapine No Quetiapine Fumarate 50 Fumarate 50 Fumarate MG MG 50 MG Ondansetron Ondansetron No Ondansetro HCl 4 MG HCl 4 MG n HCl 4 MG Gianvi Gianvi No 1{table QD Gianvi 3-0.02 MG 3-0.02 MG t} 3-0.02 MG Afinitor 5 Afinitor 5 No 1{table QD Afinitor 5 MG MG t} MG Lexapro 20 Lexapro 20 No 1{table QD Lexapro 20 MG MG t} MG Afinitor 5 Afinitor 5 No 1{table QD Afinitor 5 MG MG t} MG Gianvi Gianvi No 1{table QD Gianvi 3-0.02 MG 3-0.02 MG t} 3-0.02 MG Cetirizine Cetirizine No QD Cetirizine HCl 10 MG HCl 10 MG HCl 10 MG Quetiapine Quetiapine No Quetiapine Fumarate 50 Fumarate 50 Fumarate MG MG 50 MG Pantoprazol Pantoprazol No 1{table QD Pantoprazo e Sodium 40 e Sodium 40 t} le Sodium MG MG 40 MG Lamictal Lamictal No 1{table BID Lamictal 100 MG 100 MG t} 100 MG Ondansetron Ondansetron No Ondansetro HCl 4 MG HCl 4 MG n HCl 4 MG Magnesium Magnesium No QD Magnesium Oxide 400 Oxide 400 Oxide 400 MG MG MG Pantoprazol Pantoprazol No 1{table QD Pantoprazo e Sodium 40 e Sodium 40 t} le Sodium MG MG 40 MG Ondansetron Ondansetron No Ondansetro HCl 4 MG HCl 4 MG n HCl 4 MG Lexapro 20 Lexapro 20 No 1{table QD Lexapro 20 MG MG t} MG Magnesium Magnesium No QD Magnesium Oxide 400 Oxide 400 Oxide 400 MG MG MG Quetiapine Quetiapine No Quetiapine Fumarate 50 Fumarate 50 Fumarate MG MG 50 MG Lamictal Lamictal No 1{table BID Lamictal 100 MG 100 MG t} 100 MG Cetirizine Cetirizine No QD Cetirizine HCl 10 MG HCl 10 MG HCl 10 MG Afinitor 5 Afinitor 5 No 1{table QD Afinitor 5 MG MG t} MG Gianvi Gianvi No 1{table QD Gianvi 3-0.02 MG 3-0.02 MG t} 3-0.02 MG Immunizations Ordered Filled Immunization Date Status Comments Sourc e Immunization Name Name Influenza Virus 2021-08-30 Completed [facility]it y of Vaccine Quad IM, 00:00:00 [facility] dical Preserv and ABX Branch Free 6 [...] Completed Unive rsity of PFIZER VACCINE 00:00:00 [facility] Branch SARS-COV-2 COVID-19 2021-02-23 Completed Unive rsity of PFIZER VACCINE 00:00:00 [facility] Branch SARS-COV-2 COVID-19 2021-02-23 Completed Unive rsity of PFIZER VACCINE 00:00:00 [facility] Branch SARS-COV-2 COVID-19 2021-02-23 Completed Unive rsity of PFIZER VACCINE 00:00:00 [facility] Branch SARS-COV-2 COVID-19 2021-02-23 Completed Unive rsity of PFIZER VACCINE 00:00:00 [facility] SARS-COV-2 COVID-19 2021-02-23 Completed Unive rsity of PFIZER VACCINE 00:00:00 [facility] Branch SARS-COV-2 COVID-19 2021-02-23 Completed Unive rsity of PFIZER VACCINE 00:00:00 [facility] Branch SARS-COV-2 COVID-19 2021-02-23 Completed Unive rsity of PFIZER VACCINE 00:00:00 [facility] Branch SARS-COV-2 COVID-19 2021-02-23 Completed Unive rsity of PFIZER VACCINE 00:00:00 [facility] Branch SARS-COV-2 COVID-19 2021-02-23 Completed Unive rsity of PFIZER VACCINE 00:00:00 [facility] Branch SARS-COV-2 COVID-19 2021-02-23 Completed Unive rsity of PFIZER VACCINE 00:00:00 [facility] SARS-COV-2 COVID-19 2021-02-23 Completed Unive rsity of PFIZER VACCINE 00:00:00 [facility] SARS-COV-2 COVID-19 2021-02-23 Completed Unive rsity of PFIZER VACCINE 00:00:00 [facility] SARS-COV-2 COVID-19 2021-02-23 Completed Unive rsity of PFIZER VACCINE 00:00:00 [facility] SARS-COV-2 COVID-19 2021-02-23 Completed Unive rsity of PFIZER VACCINE 00:00:00 [facility] SARS-COV-2 COVID-19 2021-02-23 Completed Unive rsity of PFIZER VACCINE 00:00:00 [facility] SARS-COV-2 COVID-19 2021-02-23 Completed Unive rsity of PFIZER VACCINE 00:00:00 [facility] SARS-COV-2 COVID-19 2021-02-02 Completed Unive rsity of PFIZER VACCINE 00:00:00 [facility] SARS-COV-2 COVID-19 2021-02-02 Completed Unive rsity of PFIZER VACCINE 00:00:00 [facility] SARS-COV-2 COVID-19 2021-02-02 Completed Unive rsity of PFIZER VACCINE 00:00:00 [facility] SARS-COV-2 COVID-19 2021-02-02 Completed Unive rsity of PFIZER VACCINE 00:00:00 [facility] SARS-COV-2 COVID-19 2021-02-02 Completed Unive rsity of PFIZER VACCINE 00:00:00 [facility] SARS-COV-2 COVID-19 2021-02-02 Completed Unive rsity of PFIZER VACCINE 00:00:00 [facility] SARS-COV-2 COVID-19 2021-02-02 Completed Unive rsity of PFIZER VACCINE 00:00:00 [facility] SARS-COV-2 COVID-19 2021-02-02 Completed Unive rsity of PFIZER VACCINE 00:00:00 [facility] SARS-COV-2 COVID-19 2021-02-02 Completed Unive rsity of PFIZER VACCINE 00:00:00 [facility] SARS-COV-2 COVID-19 2021-02-02 Completed Unive rsity of PFIZER VACCINE 00:00:00 [facility] SARS-COV-2 COVID-19 2021-02-02 Completed Unive rsity of PFIZER VACCINE 00:00:00 [facility] SARS-COV-2 COVID-19 2021-02-02 Completed Unive rsity of PFIZER VACCINE 00:00:00 [facility] SARS-COV-2 COVID-19 2021-02-02 Completed Unive rsity of PFIZER VACCINE 00:00:00 [facility] SARS-COV-2 COVID-19 2021-02-02 Completed Unive rsity of PFIZER VACCINE 00:00:00 [facility] SARS-COV-2 COVID-19 2021-02-02 Completed Unive rsity of PFIZER VACCINE 00:00:00 [facility] SARS-COV-2 COVID-19 2021-02-02 Completed Unive rsity of PFIZER VACCINE 00:00:00 [facility] SARS-COV-2 COVID-19 2021-02-02 Completed Unive rsity of PFIZER VACCINE 00:00:00 [facility] Influenza Virus 2020-08-27 Completed Universit y of [...] y of Vaccine Quad .5 mL 00:00:00 [facility] 6+ MO Branch Influenza Virus 2019-10-01 Completed [facility] Vaccine Quad .5 mL 00:00:00 [facility] 6+ MO [facility] Influenza Virus 2019-10-01 Completed [facility] Vaccine Quad .5 mL 00:00:00 [facility] 6+ MO [facility] Influenza Virus 2019-10-01 Completed [facility] Vaccine Quad .5 mL 00:00:00 [facility] 6+ MO [facility] Influenza Virus 2019-10-01 Completed [facility] Vaccine Quad .5 mL 00:00:00 [facility] 6+ MO [facility] Influenza Virus 2019-10-01 Completed [facility] of Vaccine Quad .5 mL 00:00:00 [facility] 6+ MO Branch Afluria single dose Afluria single dose 2019-08-05 Completed [facility] 16:46:00 [facility] Afluria single dose Afluria single dose 2019-08-05 Completed [facility] 16:46:00 [facility] Afluria single dose Afluria single dose 2019-08-05 Completed [facility] 16:46:00 [facility] Afluria single dose Afluria single dose 2019-08-05 Completed [facility] 16:46:00 [facility] Afluria single dose Afluria single dose 2019-08-05 Completed [facility] 16:46:00 [facility] Afluria single dose Afluria single dose 2019-08-05 Completed [facility] - 16:46:00 [facility] Afluria single dose Afluria single dose 2019-08-05 Completed [facility] 16:46:00 [facility] Afluria single dose Afluria single dose 2019-08-05 Completed [facility] 16:46:00 [facility] Afluria single dose Afluria single dose 2019-08-05 Completed [facility] 16:46:00 [facility] Afluria single dose Afluria single dose 2019-08-05 Completed [facility] - 00:00:00 [facility] Flucelvax - single Flucelvax - single 2018-10-26 Completed [facility] - dose syringe dose syringe 10:32:00 [facility] Flucelvax - single Flucelvax - single 2018-10-26 Completed [facility] - dose syringe dose syringe 10:32:00 [facility] Flucelvax - single Flucelvax - single 2018-10-26 Completed [facility] - dose syringe dose syringe 10:32:00 [facility] Flucelvax - single Flucelvax - single 2018-10-26 Completed [facility] - dose syringe dose syringe 10:32:00 [facility] Flucelvax - single Flucelvax - single 2018-10-26 Completed [facility] - dose syringe dose syringe 10:32:00 [facility] Flucelvax - single Flucelvax - single 2018-10-26 Completed [facility] - dose syringe dose syringe 10:32:00 [facility] Flucelvax - single Flucelvax - single 2018-10-26 Completed [facility] - dose syringe dose syringe 10:32:00 [facility] Flucelvax - single Flucelvax - single 2018-10-26 Completed [facility] - dose syringe dose syringe 10:32:00 [facility] Flucelvax - single Flucelvax - single 2018-10-26 Completed [facility] - dose syringe dose syringe 10:32:00 [facility] Flucelvax - single Flucelvax - single 2018-10-26 Completed [facility] - dose syringe dose syringe 00:00:00 [facility] Vital Signs Vital Name Observation Time Observation Value Comments Source Systolic blood 2022-11-08 15:40:00 114 mm[Hg] Univer [facility]ity [facility] Diastolic blood 2022-11-08 15:40:00 74 [facility]Hg[facility] 2022-11-08 15:40:00 79 /min [facility] Body temperature 2022-11-08 15:40:00 36.33 Ca [facility] Respiratory rate 2022-11-08 15:40:00 18 /min [facility] Body weight 2022-11-08 15:40:00 75.569 kg [facility] BMI 2022-11-08 15:40:00 31.48 kg/m2 [facility] Systolic blood 2022-08-11 15:59:00 129 mm[Hg] [facility] Diastolic blood 2022-08-11 15:59:00 81 mm[Hg] [facility] Heart rate 2022-08-11 15:59:00 79 /min [facility] Body temperature 2022-08-11 15:59:00 36.11 Ca [facility] Respiratory rate 2022-08-11 15:59:00 18 /min [facility] Body height 2022-08-11 15:59:00 154.9 cm [facility] Body weight 2022-08-11 15:59:00 73.71 kg [facility] BMI 2022-08-11 15:59:00 30.70 kg/m2 [facility] Systolic blood 2022-08-09 14:47:00 134 mm[Hg] Univer [facility]ity of pressure [facility] Diastolic blood 2022-08-09 14:47:00 86 mm[Hg] [facility] Heart rate 2022-08-09 14:47:00 87 /min [facility] Body temperature 2022-08-09 14:47:00 36.5 Ca [facility] Respiratory rate 2022-08-09 14:47:00 20 /min [facility] Body height 2022-08-09 14:47:00 154.9 cm [facility] Body weight 2022-08-09 14:47:00 72.303 kg [facility] BMI 2022-08-09 14:47:00 30.12 kg/m2 [facility] Systolic blood 2022-05-17 14:21:00 125 mm[Hg] [facility] Diastolic blood 2022-05-17 14:21:00 86 mm[Hg] Unive rsity of [facility] Heart rate 2022-05-17 14:21:00 77 /min [facility] Body temperature 2022-05-17 14:21:00 36.11 Ca [facility] Respiratory rate 2022-05-17 14:21:00 17 /min [facility] Body height 2022-05-17 14:21:00 154.9 cm [facility] Body weight 2022-05-17 14:21:00 77.168 kg [facility] BMI 2022-05-17 14:21:00 32.14 kg/m2 [facility] Systolic blood 2022-02-14 14:43:00 134 mm[Hg] Univer [facility]ity of [facility] Diastolic blood 2022-02-14 14:43:00 98 mm[Hg] Unive rsity of pressure [facility] Heart rate 2022-02-14 14:42:00 96 /min [facility] Body temperature 2022-02-14 14:42:00 36.11 Ca [facility] Respiratory rate 2022-02-14 14:42:00 18 /min [facility] Body height 2022-02-14 14:42:00 154.9 cm [facility] Body weight 2022-02-14 14:42:00 77.168 kg [facility] BMI 2022-02-14 14:42:00 32.14 kg/m2 [facility] Systolic blood 2021-12-24 15:47:00 126 mm[Hg] Univer [facility]ity of [facility] Diastolic blood 2021-12-24 15:47:00 86 mm[Hg] Unive rsity of pressure [facility] Heart rate 2021-12-24 15:45:00 96 /min [facility] Body temperature 2021-12-24 15:45:00 36.22 Ca [facility] Respiratory rate 2021-12-24 15:45:00 18 /min [facility] Body height 2021-12-24 15:45:00 154.9 cm [facility] Body weight 2021-12-24 15:45:00 77.157 kg [facility] BMI 2021-12-24 15:45:00 32.14 kg/m2 [facility] Oxygen saturation in 2021-12-24 15:45:00 99 /min University Arterial blood by [facility] Pulse oximetry Branch height 2020-10-22 11:00:00 60.00 [in_i] Common [facility] weight 2020-10-22 11:00:00 175.6 [lb_av] Common [facility] temperature 2020-10-22 11:00:00 97.9 [degF] Common [facility] bmi 2020-10-22 11:00:00 34.29 kg/m2 Common [facility] oximetry 2020-10-22 11:00:00 97 % Common [facility] respiratory rate 2020-10-22 11:00:00 16 /min Comm on [facility] blood pressure 2020-10-22 11:00:00 125 mm[Hg] Common [facility] - systolic [facility] blood pressure 2020-10-22 11:00:00 84 mm[Hg] Common [facility] - diastolic [facility] height 2020-09-14 15:00:00 60.00 [in_i] Common [facility] weight 2020-09-14 15:00:00 178.8 [lb_av] [facility] temperature 2020-09-14 15:00:00 98.0 [degF] Common [facility] bmi 2020-09-14 15:00:00 34.92 kg/m2 Common [facility] oximetry 2020-09-14 15:00:00 98 % Common [facility] respiratory rate 2020-09-14 15:00:00 16 /min Comm on [facility] blood pressure 2020-09-14 15:00:00 139 mm[Hg] Common [facility] - systolic [facility] blood pressure 2020-09-14 15:00:00 88 mm[Hg] Common [facility] - diastolic [facility] height 2020-09-03 08:20:00 60.00 [in_i] Common [facility] weight 2020-09-03 08:20:00 179 [lb_av] [facility] temperature 2020-09-03 08:20:00 97.6 [degF] [facility] bmi 2020-09-03 08:20:00 34.95 kg/m2 [facility] BP Systolic 2018-05-01 10:10:00 109 mm[Hg] [facility] BP Diastolic 2018-05-01 10:10:00 76 mm[Hg] [facility] Height 2018-05-01 10:10:00 154 cm [facility] Weight 2018-05-01 10:10:00 67.7 kg [facility] Body Mass Index 2018-05-01 10:10:00 28.55 kg/m2 [facility] Calculated Temperature 2018-05-01 10:10:00 96.5 [degF] [facility] Heart Rate 2018-05-01 10:10:00 91 /min [facility] Head Circumference 2018-05-01 10:10:00 54.7 cm [facility] Procedures Procedure Date / Time Performing Clinician Source Performed US RETROPERITONEAL 2022-08-29 18:32:[address] [facility] PHOSPHORUS 2022-08-17 15:12[facility] 2022-08-17 15:12[facility] BASIC METABOLIC PANEL (NA, 2022-08-17 15:12:00 Amalia Barton [facility] K, CL, CO2, GLUCOSE, BUN, Medica l Branch CREATININE, CA) CBC WITH DIFF 2022-08-17 15:12[facility]00 [facility] 2022-08-17 15:12:00 Mick [facility] PROTEIN CREAT RATIO URINE 2022-08-17 15:12:00 Amalia Barton [facility] HIV 1/2 AG-AB WITH REFLEX 2022-08-17 15:12:00 Amalia Barton [facility] CONSENT/REFUSAL FOR 2022-08-11 14:44:13 Doctor Unassigned, [facility] CONTRAST 2022-01-05 14:13:55 Sabrina Wooten Rp [facility] FERRITIN SERUM 2021-12-24 16:28:00 Sabrina Wooten Rp [facility] TOTAL IRON BINDING 2021-12-24 16:28:00 Sabrina Wooten Rp [facility] COMP. METABOLIC PANEL 2021-12-24 16:28:00 Sabrina Wooten Rp [facility] ([id number]) [facility] CBC WITH DIFF 2021-12-24 16:28:00 Sabrina Wooten Rp [facility] INSURANCE CORRESPONDENCE 2021-12-02 06:01:00 Doctor Unassigned, [facility] EKG w/Rhythm Strip 2018-04-17 00:00:00 [facility] [[facility]] CBC (INCLUDES 2018-04-17 00:00:00 [facility] DIFF/PLT) [QLH] CMP W/EGFR 2018-04-17 00:00:00 [facility] [Q] EVEROLIMUS, BLOOD 2018-04-17 00:00:00 [facility] [[facility]] LIPID PANEL 2018-04-17 00:00:00 [facility] [[facility]] PHOSPHATE ( 2018-04-17 00:00:00 [facility] PHOSPHORUS) [QLH] PTH, INTACT (WITHOUT 2018-04-17 00:00:00 [facility] CALCIUM) [QLH] LAMOTRIGINE 2018-04-17 00:00:00 [facility] MRI Brain w/wo contrast 2018-04-17 00:00[facility] [id number] [facility] Abdomen w/wo contrast 2018-04-17 00:00:00 [facility] [id number] Encounters Start End Encounter Admission Attending Care Care Encounter Source Date/Time Date/Time Type Type Clinicians Facility Department ID 2021-12-08 Outpatient Shantelle Bates [facility] [id number] 2 Common 12:12:18 [id number] [facility] 2021-12-08 Outpatient Shantelle Bates [facility] [id number] 2 Common 12:11:19 [id number] [facility] 2021-12-08 Outpatient Bates, Na [facility] [id number] 2 Common 12:01:13 [id number] [facility] 2021-12-08 Outpatient Bates, Na STLMLC STLMLC [id number] 2 Common 12:00:44 [id number] [facility] 2021-12-08 Outpatient Bates, Na STLMLC STLMLC [id number] 2 Common 12:00:24 [id number] [facility] 2021-12-08 Outpatient Bates, Na STLMLC STLMLC [id number] 2 Common 11:57:53 [id number] [facility] 2021-12-08 Outpatient Bates, Na STLMLC STLMLC [id number] 2 Common 11:50:13 [id number] [facility] 2021-12-08 Outpatient Bates, Na STLMLC STLMLC [id number] 2 Common 11:44:48 [id number] [facility] 2021-12-08 Outpatient Bates, Na STLMLC STLMLC [id number] 2 Common 11:44:02 [id number] [facility] 2021-12-08 Outpatient Bates, Na STLMLC STLMLC [id number] 2 Common 11:42:40 [id number] [facility] 2021-12-08 Outpatient Bates, Na STLMLC STLMLC [id number] 2 Common 11:10:16 [id number] [facility] 2021-12-08 Outpatient Bates, Na STLMLC STLMLC [id number] 2 Common 11:07:32 [id number] [facility] 2021-09-13 Outpatient R JOSHUA LOPEZ [facility] GIE [id number] Univers 23:49:41 JOSHUA LOPEZ i [facility] 2021-09-13 Emergency [facility] [id number] Univers 04:00:36 ity [facility] 2021-09-12 Emergency [facility] [id number] Univers [facility]:20:[facility]11 Emergency [facility] [id number] Univers 12:17:27 ity of [facility] 2021-09-10 Emergency [facility] [id number] Univers 06:09:58 ity of [facility] 2021-09-09 Emergency [facility] [id number] Univers 19:00:01 ity of [facility] 2022-11-08 2022-11-08 Outpatient R ELICEO, [facility] [id number] Univers 10:30:00 10:30:00 MIREILLENDCandice itjake o [facility] 2022-11-08 2022-11-08 Outpatient R NATALI, [facility] [id number] Univers 08:30:00 09:39:24 ALBERTA crystal [facility] 2022-11-08 2022-11-08 Nurse Visit, MaryRmchp Nurse [facility] 1.2 .840.114 [id number] Univers 08:30:00 09:39:24 Visit Alberta Hurst WELFARE OFFICER 350.1.13. 10 ity [facility] 4.2.7.2.686 Jerome as MATERNAL [phone] [facility] ical & CHILD [address] [place] [address] 2022-10-25 2022-10-25 Outpatient [facility] Hi 09:17:48 09:17:48 [facility] 2022-10-13 2022-10-13 Outpatient [facility] Hi 15:50:42 15:50:42 [facility] 2022-10-10 2022-10-10 Outpatient [facility] Hi 09:55:32 09:55:32 [facility] 2022-08-29 2022-08-29 [facility] [id number] Univers 12:13:33 23:59:00 MANAF ity [facility] 2022-08-29 2022-08-[address] [facility] [address] [facility] 1.2.840.114 [id number] Univers 12:13:33 23:59:00 Encounter [facility] 350.1.13.10 ity [facility] 4.2.7.2.686 [facility] [id number] [address] 2022-08-17 2022-08-17 Repairer Evaporator Jade Hernandez Lab Main [facility] 1.2.8 40.114 [id number] Univers 09:30:00 09:45:00 Visit Farooq Tari MANUEL 350.1.13.10 ity [facility] [place].2.7.2.[place] [phone] Nv dical NAL 353 [facility] 2022-08-17 2022-08-17 Outpatient R FAROOQ [facility] [id number] Univers 09:30:00 09:30:00 TARI itjake [facility] 2022-08-11 2022-08-11 Outpatient R NATALI [facility] [id number] Univers 11:00:00 12:03:20 ALBERTA stanley [facility] 2022-08-11 2022-08-[address] [facility] 1.2.072.575 [id number] Univers 11:00:00 12:03:20 Visit Alberta Chaparro WELFARE OFFICER 350.1.13.10 ity of [facility] 4.2.7.2.686 Jerome as MATERNAL [phone] Med ical & CHILD [address] [place] [address] 2022-08-11 2022-08-11 Orders Doctor PAOLA 1.2.840.114 [id number] Univers 00:00:00 00:00:00 Only Unassigned, RISSA 350.1.13.10 ity of [facility] 4.2.7.2.686 Jerome as [id number] [facility] [address] 2022-08-09 2022-08-09 Outpatient R ELICEO [facility] [id number] Univers 10:00:00 10:00:00 VANDANA stanley [facility] 2022-08-09 2022-08-09 Nurse Visit, MaryRmchp Nurse [facility] 1.2 .840.114 [id number] Univers 10:00:00 10:00:00 Visit Vandana Fenton WELFARE OFFICER 350.1.13.10 ity of [facility] 4.2.7.2.686 Jerome as MATERNAL [id number] Med ical & CHILD [address] [place] [address] 2022-05-17 2022-05-17 [facility] 1.2 .840.114 [id number] Univers 09:00:00 09:27:11 Visit Elen Fentonterry Phipps WELFARE OFFICER 350.1.13.10 [facility] 4.2.7.2.686 Jerome as MATERNAL [phone] [facility] ical & CHILD [address] [place] [address] 2022-05-17 2022-05-17 Outpatient R ELICEO [facility] [id number] Univers 09:00:00 09:00:00 VANDANA ity o f [facility] 2022-02-14 2022-02-14 Nurse Visit, [facility] Nurse [facility] 1.2 .840.114 [id number] Univers 09:30:00 09:48:50 Visit Elen Fentonterry Phipps WELFARE OFFICER 350.1.13.10 [facility] 4.2.7.2.686 Jerome as MATERNAL [phone] [facility] [address] [place] [address] 2022-02-14 2022-02-14 Outpatient R [facility] [id number] Univers 09:30:00 09:30:00 ity [facility] 2022-02-14 2022-02-14 Outpatient R ELICEO [facility] [id number] Univers 09:30:00 09:30:00 ELENTERRY ity o f [facility] 2022-01-27 2022-01-27 Outpatient R MAHNAZ [facility] [id number] Univers 13:00:00 13:00:00 DELILAH ity [facility] 2022-01-05 2022-01-05 Outpatient R SABRINA WOOTEN [facility] [id number] Univers 07:56:31 23:59:00 ity [facility] 2022-01-05 2022-01-05 [facility] Sabrina Wooten [facility] 1.2.840.114 [id number] Univers 07:56:31 23:59:00 Encounter [facility] 350.1.13.10 [facility] 4.2.7.2.686 [facility] [id number] [address] 2021-12-27 2021-12-27 Outpatient R DIANA [facility] [id number] Univers 08:30:00 08:30:00 WONDIFUL ity o f [facility] 2021-12-24 2021-12-24 Repairer Evaporator [facility] 1.2.840.114 [id number] Univers 10:30:00 10:45:00 Visit Sabrina Wooten Rp Y HEALTH 350.1.13.10 ity of [facility] 4.2.7.2.686 [place] [id number] [facility] [address] 2021-12-24 2021-12-24 Office Sabrina Wooten CINDY 1.2.840.114 [id number] Univers 09:20:00 09:40:00 Visit Rp H 350.1.13.10 it y of [facility] 4.2.7.2.686 Jerome as [phone] [facility] [address] 2021-12-24 2021-12-24 Outpatient R SABRINA WOOTEN [facility] [id number] Univers 09:20:00 09:20:00 ity of [facility] 2021-12-15 2021-12-15 Outpatient R ELICEO [facility] [id number] Univers 08:30:00 08:30:00 VANDANA ity o [facility] 2021-12-13 2021-12-[address] [facility] 1.2.840.114 [id number] Univers 00:00:00 00:00:00 Alberta Chaparro WELFARE OFFICER 350.1.13.10 ity of [facility] 4.2.7.2.686 Jerome as MATERNAL [id number] [facility] ical & CHILD [address] [place] [address] 2021-12-09 2021-12-09 Outpatient R NATALI [facility] [id number] Univers 14:15:00 14:28:57 ALBERTA thao o [facility] 2021-12-09 2021-12-[address] [facility] 1.2.338.151 [id number] Univers 14:15:00 14:28:57 Visit Alberta Chaparro WELFARE OFFICER 350.1.13.10 ity of [facility] 4.2.7.2.686 Jerome as MATERNAL [phone] Med ical & CHILD [address] [place] [address] 2021-12-07 2021-12-[address] [facility] 1.2.164.913 [id number] Univers 00:00:00 00:00:00 Elenpoonambernardo Phipps WELFARE OFFICER 350.1.13.10 ity of [facility] 4.2.7.2.686 Jerome as MATERNAL [id number] [facility] ical & CHILD [address] [place] [address] 2021-12-03 2021-12-[address] [facility] 1.2.840.114 [id number] Univers 00:00:00 00:00:00 Alberta Chaparro WELFARE OFFICER 350.1.13.10 ity of [facility] 4.2.7.2.686 Jerome as MATERNAL [phone] [facility] & CHILD [address] [place] [address] 2021-12-02 2021-12-02 Orders Doctor PAOLA 1.2.840.114 [id number] Univers 00:00:00 00:00:00 Only Unassigned, RISSA 350.1.13.10 ity of [facility] 4.2.7.2.686 Jerome as [phone] [address] 2021-11-30 2021-11-[address] [facility] 1.2.840.114 [id number] Univers 00:00:00 00:00:00 Pritesh Haines WELFARE OFFICER 350.1.13.10 it y of [facility] 4.2.7.2.686 Jerome as MATERNAL [id number] [facility] ical & CHILD [address] [place] [address] 2021-11-22 2021-11-22 Outpatient R NATALI [facility] [id number] Univers 09:15:00 10:06:01 ALBERTA stanley [facility] 2021-11-22 2021-11-22 Office [facility] 1.2.974.064 [id number] Univers 09:15:00 10:06:01 Visit Alberta Chaparro WELFARE OFFICER 350.1.13.10 ity of [facility] 4.2.7.2.686 Jerome as MATERNAL [phone] Med ical & CHILD [address] [place] [address] 2021-11-22 2021-11-22 Outpatient R AKINSIPE, [facility] [id number] Univers 09:15:00 10:06: ALBERTA ity o f [facility] 2021-11-22 2021-11-22 Outpatient R AKINSIPE, [facility] [id number] Univers 09:15:00 10:06:01 ALBERTA ity o f [facility] 2021-11-22 2021-11-22 Outpatient R AKINSIPE, [facility] [id number] Univers 09:15:00 09:15:00 ALBERTA ity o [facility] 2021-10-19 2021-10-[address] [facility] 1.2.840.114 [id number] Univers 00:00:00 00:00:00 Wondiful A [facility] 350.1.13.10 [facility] 4.2.7.2.686 Jerome as LAN?BLEA [id number] Nv moy CROW [address] MEDICAL OFFICE [facility] 2021-10-13 2021-10-[address] [facility] 1.2.840.114 [id number] Univers 00:00:00 00:00:00 Alberta Chaparro WELFARE OFFICER 350.1.13.10 [facility] 4.2.7.2.686 Jerome as MATERNAL [phone] [facility] ical & CHILD [address] [place] [address] 2021-10-12 2021-10-12 Outpatient R JOSE CARLOS [facility] [id number] Univers 09:00:00 09:00:00 BILAL ity [facility] 2021-10-02 2021-10-[address] [facility] 1.2.716.538 [id number] Univers 00:00:00 00:00:00 Brad SPECIALTY 350.1.13.10 ity of [facility] 4.2.7.2.686 [place] CENTER AT [phone] Nv moy MARTIN [address] [place] [address] 2021-09-30 2021-09-30 Outpatient R DIANA [facility] [id number] Univers 11:00:00 11:19:40 WONDIFUL ity o f [facility] 2021-09-30 2021-09-30 [facility] 1.2.840.114 [id number] Univers 10:49:51 11:19:40 Visit Wondiful A HEALTH 350.1.13.10 ity of [place] 4.2.7.2.686 Jerome as LAN?BLEA [phone] [address] MEDICAL OFFICE [facility] 2021-09-30 2021-09-30 Telephone [facility] 1.2.840.114 [id number] Univers 00:00:00 00:00:00 Wondiful A HEALTH 350.1.13.10 ity of [place] 4.2.7.2.686 Jerome as LAN?BLEA [phone] [address] OFFICE [facility] 2021-09-15 2021-09-15 Telephone [facility] 1.2.840.114 [id number] Univers 00:00:00 00:00:00 Wondiful A HEALTH 350.1.13.10 ity of [place] 4.2.7.2.686 Jerome as LAN?BLEA [id number] [address] OFFICE [facility] 2021-09-09 2021-09-09 Outpatient R NATALI, [facility] [id number] Univers 15:00:00 15:00:00 ALBERTA ity o f [facility] 2021-09-09 2021-09-09 Outpatient R JOSE CARLOS [facility] [id number] Univers 14:30:00 14:30:00 BILAL ity of [facility] 2021-09-09 2021-09-09 Telephone [facility] 1.2.840.114 [id number] Univers 00:00:00 00:00:00 Wondiful A HEALTH 350.1.13.10 ity of [place] 4.2.7.2.686 Jerome as LAN?BLEA [phone] [address] MEDICAL OFFICE [facility] 2021-09-06 2021-09-[address] [facility] 1.2.840.114 [id number] Univers 00:00:00 00:00:00 Wondiful A Health 350.1.13.10 ity of [place] 4.2.7.2.686 Jerome as Professio [phone] [facility] 044 [facility] 2021-09-02 2021-09-02 Telephone Jean Pierre [facility] 1.2.840.114 [id number] Univers 00:00:00 00:00:00 Pritesh Haines WELFARE OFFICER 350.1.13.10 it y of [facility] 4.2.7.2.686 Jerome as MATERNAL [phone] [facility] ical & CHILD [address] [place] [address] 2021-09-01 2021-09-01 Ancillary Connie Huddleston [facility] 1.2.8 40.114 [id number] Univers 13:02:05 13:47:05 Visit Jimmy Madrid 350.1.13.10 ity of [place]2.7.2.686 [place] Profess[place] [phone] Nv [facility] 145 [facility] 2021-08-30 2021-08-30 Office Barbara [facility] 1.2.840.114 [id number] Univers 09:57:19 11:01:49 Visit [facility] 350.1.13.10 it y of [place] 4.2.7.2.686 Jerome as Lan?Blea [phone] Nv moy crow 044 [facility] 2021-08-30 2021-08-[address] [facility] 1.2.913.494 [id number] Univers 08:25:04 09:28:20 Visit Pritesh Haines WELFARE OFFICER 350.1.13.10 it y of [facility] 4.2.7.2.686 Jerome as MATERNAL [phone] [facility] & CHILD [address] [place] [address] 2021-08-30 2021-08-30 Outpatient R JEAN PIERRE [facility] [id number] Univers 08:30:00 08:30:00 PRITESH thao [facility] 2021-08-18 2021-08-18 Ancillary Connie Huddleston [facility] 1.2.8 40.114 [id number] Univers 08:04:55 08:49:55 Visit Jimmy Madrid 350.1.13.10 ity of [place] 4.2.7.2.686 [place] [facility] [phone] Nv dical nal [address] [facility] 2021-08-18 2021-08-18 Outpatient R JULIUS [facility] [id number] Univers 08:45:00 08:45:00 JIMMY ity of [facility] 2021 2021 Hospital [facility] 1.2.840.114 [id number] Univers 11:03:00 12:41:00 Encounter Joshua Keita [facility] 350.1.13.10 ity of [place]2.7.2.686 [place] [facility] [phone] [address] ([facility]) 2021 2021 Surgery [facility] 1.2.840.114 [id number] Univers 10:03:00 10:48:00 Joshua Keita SPECIALTY 350.1.13.10 ity of CARE 4.2.7.2.686 [place] [facility] AT [phone] Nv dical VICTORY 020 [facility] 2021 2021 Orders Doctor PAOLA 1.2.840.114 [id number] Univers 00:00:00 00:00:00 Only Unassigned, RISSA 350.1.13.10 ity of [facility] 4.2.7.2.686 Jerome as [phone] [facility] [address] 2021-08-14 2021-08-14 Laboratory Only, Adc Test [facility] 1.2.840. 114 [id number] Univers 09:07:55 09:22:55 Only Joshua Lopez 350.1.13.10 ity of [place] 4.2.7.2.686 [facility] [phone] [facility] [address] 2021-08-14 2021-08-14 Outpatient R JOSHUA LOPEZ [facility] [id number] Univers 09:15:00 09:15:00 JOSHUA LOPEZ itjake of [facility] 2021-08-13 2021-08-13 Outpatient Moise JOYA [facility] [id number] Univers 10:30:00 10:30:00 DELILAH ity of [facility] 2021-08-09 2021-08-09 Telephone Flaquito [facility] 1.2.840.114 [id number] Univers 00:00:00 00:00:00 [facility] 350.1.13.10 ity of [place] 4.2.7.2.686 [place] Professio [phone] Nv dical nal [address] [place] [address] 2021-08-09 2021-08-[address] [facility] 1.2.649.853 [id number] Univers 00:00:00 00:00:00 Rosnda R WELFARE OFFICER 350.1.13.10 ity of [facility] 4.2.7.2.686 Jerome as MATERNAL [phone] [facility] & CHILD [address] [place] [address] 2021-08-09 2021-08-[address] [facility] 1.2.597.929 [id number] Univers 00:00:00 00:00:00 Rosnda R WELFARE OFFICER 350.1.13.10 ity of [facility] 4.2.7.2.686 Jerome as MATERNAL [phone] [facility] & [address] 2021-08-06 2021-08-06 Office Eliceo [facility] 1.2.840.114 [id number] Univers 12:45:21 13:15:26 [facility] WELFARE OFFICER 350.1.13.10 ity of [facility] 4.2.7.2.686 Jerome as MATERNAL [phone] [facility] & CHILD [address] [place] [address] 2021-08-06 2021-08-06 Outpatient R ELICEO [facility] [id number] Univers 13:00:00 13:00:00 ROSPOONAMNDA ity o f [facility] 2021-08-02 2021-08-[address] [facility] 1.2.840.114 [id number] Univers 00:00:00 00:00:00 [facility] 350.1.13.10 ity of [place] 4.2.7.2.686 [place] Professio [phone] Nv dical [address] 2021-07-29 2021-07-29 Office Brad Barnes [facility] 1.2.840.114 [id number] Univers 10:52:13 14:15:36 Visit Akhil Dumas SPECIALTY 350.1.13.10 ity of CARE 4.2.7.2.686 [place] CENTER AT [phone] Nv moy MARTIN 072 [facility] 2021-07-29 2021-07-29 Office Brad Barnes [facility] 1.2.840.114 [id number] Univers 10:52:13 14:15:36 Visit Akhil Dumas E SPECIALTY 350.1.13.10 ity of CARE 4.2.7.2.686 [place] CENTER AT [phone] Nv moy MARTIN [address] [place] [address] 2021-07-29 2021-07-29 [facility] [id number] Univers 14:00:00 14:00:00 AKHIL thao [facility] 2021-07-26 2021-07-[address] [facility] 1.2.313.284 [id number] [facility] 09:19:16 10:03:45 Visit Josseline Naranjo 350.1.13.10 i ty of [place] 4.2.7.2.686 [place] Professio [phone] Nv moy gannon [address] [facility] 2021-07-26 2021-07-26 Out[facility] [id number] Univers 09:15:00 09:15:00 JOSSELINE thao [facility] 2021-07-12 2021-07-[address] [facility] 1.2.840.114 [id number] Univers 00:00:00 00:00:00 Connie Naranjo 350.1.13.10 ity of [place] 4.2.7.2.686 [place] Professio [phone] Nv moy gannon [address] [place] [address] 2021-07-10 2021-07-[address] [facility] 1.2.840.114 [id number] Univers 00:00:00 00:00:00 Josseline Naranjo 350.1.13.10 i ty of [place] 4.2.7.2.686 [place] Professio [phone] Nv dical nal [address] [place] [address] 2021-07-08 2021-07-[address] [facility] 1.2.305.636 [id number] Univers 09:45:37 10:23:38 Visit Josseline Naranjo 350.1.13.10 i ty of [place] 4.2.7.2.686 [place] Professio [phone] Nv dic[address] 2021-07-08 2021-07-08 Outpatient [facility] [id number] Univers 10:00:00 10:00:00 JOSSELINE [facility] 2021-07-05 2021-07-05 Outpatient R FABIOLA IZAGUIRRE [facility] [id number] Univers 00:00:00 00:00:00 [facility] 2021-06-25 2021-06-25 Outpatient R SABRINA OWOTEN [facility] [id number] Univers 10:20:00 10:20:00 [facility] 2021-06-09 2021-06-09 Outpatient R TRACIE [facility] [id number] Univers 10:30:00 10:30:00 CHIAILYN it o f [facility] 2021-06-03 2021-06-03 Outpatient R FLORIAN [facility] [id number] Univers 11:00:00 11:00:00 KASH [facility] 2021-05-18 2021-05-18 Outpatient R FABIOLA IZAGUIRRE [facility] RAD [id number] Univers 10:00:00 10:00:00 [facility] 2021-05-11 2021-05-11 Outpatient R [facility] [id number] Univers 18:00:00 18:00:00 [facility] 2021-05-07 2021-05-07 Outpatient R NADJA [facility] [id number] Univers 17:20:00 17:20:00 PAOLA [facility] 2021-05-07 2021-05-07 Outpatient R PJ [facility] [id number] Univers 17:15:00 17:15:00 ABUNDIO ity [facility] 2021-05-05 2021-05-05 Outpatient FABIOLA CHAVEZ [facility] [id number] Univers 10:00:00 10:00:00 ity [facility] 2021-04-23 2021-04-23 Outpatient R DANAGIL Almanza [facility] [id number] Univers 10:00:00 10:00:00 [facility]-04-21 2021-04-21 Outpatient R [facility] [id number] Univers 09:00:00 09:00:00 ity [facility] 2021-04-16 2021-04-16 Outpatient R [facility] [id number] Univers 00:00:00 00:00:00 ity [facility] 2021-04-15 2021-04-15 Outpatient FABIOLA CHAVEZ [facility] [id number] Univers 00:00:00 00:00:00 ity [facility] 2021-04-13 2021-04-13 Outpatient RENATO DILL [facility] [id number] Univers 00:00:00 00:00:00 ity [facility] 2021-04-08 2021-04-08 Outpatient FABIOLA CHAVEZ [facility] [id number] Univers 00:00:00 00:00:00 ity [facility] 2021-04-02 2021-04-02 Outpatient FABIOLA CHAVEZ [facility] [id number] Univers 00:00:00 00:00:00 ity [facility] 2021-03-29 2021-03-29 Outpatient Moise ORTIZ [facility] [id number] Univers 10:30:00 10:30:00 WONDIFUL ity o f [facility] 2021-03-26 2021-03-26 Outpatient RENATO DILL [facility] [id number] Univers 00:00:00 00:00:00 ity [facility] 2021-03-10 2021-03-10 Outpatient RENATO DILL [facility] [id number] Univers 09:00:00 09:00:00 ity [facility] 2021-03-04 2021-03-04 Outpatient R RENATO SANTIAGO [facility] [id number] Univers 00:00:00 00:00:00 [facility] 2021-02-23 2021-02-23 Outpatient R MAUREEN [facility] [id number] Univers 13:30:00 13:30:00 SHAKIR [facility] 2021-02-11 2021-02-11 [facility] [id number] 08:34:08 23:59:00 Encounter [facility] [id number] CLINICS [id number] 2021-02-11 2021-02-11 Outpatient R ELISEO [facility] [id number] Univers 00:00:00 00:00:00 [facility] 2021-02-09 2021-02-09 Renato Salazar [facility] [id number] 00:00:00 00:00:00 Management [facility] [id number] CLINICS [id number] 2021-02-08 2021-02-08 Emergency [facility] [id number] 17:25:00 20:35:00 [facility] [id number] [facility] [id number] [facility] [id number] [address] ([facility]) 2021-02-08 2021-02-08 Outpatient R ALVIN, [facility] [id number] Univers 17:30:00 17:30:00 ATTENDING [facility] 2021-02-08 2021-02-08 Outpatient R KING ELLIOT, [facility] [id number] Univers 16:00:00 16:00:00 DAVID [facility] 2021-02-08 2021-02-08 Outpatient R JUSTIN, [facility] [id number] Univers 16:00:00 16:00:00 COCO stanley [facility] 2021-02-08 2021-02-08 [id number] Univers 00:00:00 00:00:00 SHEA jake [facility] 2021-02-04 2021-02-04 Telephone Fabiola Izaguirre [facility] [id number] 00:00:00 00:00:00 Y HEALTH [id number] CLINICS [id number] [id number] 2021-02-02 2021-02-02 Outpatient NEFTALY [facility] [id number] Univers 13:30:00 13:30:00 JAMEY jake [facility] 2021-02-02 2021-02-02 [facility] [id number] Univers 12:30:00 12:30:00 JAMEY [facility] 2021-02-02 2021-02-[address] [facility] 1.2.840.114 [id number] 00:00:00 00:00:00 Outreach [facility] [id number] [facility] 4.2.7.2.686 AMA [id number] 2021-01-28 2021-01-28 Hospital Fabiola Izaguirre [facility] 1.2.840.114 [id number] 08:35:41 23:59:00 Encounter Y HEALTH [id number] CLINICS 4.2.7.2.686 [id number] 2021-01-28 2021-01-28 Outpatient R [facility] [id number] Univers 00:00:00 00:00:00 [facility] 2021-01-27 2021-01-27 Nurse Nurse, [facility] 1.2.840.114 [id number] 09:18:25 09:32:38 [facility] [place] 350.1.13.10 [facility] 4.2.7.2.686 Ariel [id number] [address] 2021-01-27 2021-01-27 Outpatient R [facility] [id number] Univers 09:00:00 09:00:00 [facility] 2021-01-22 2021-01-22 Office Sabrina Wooten 1.2.840.114 [id number] 09:34:26 11:19:10 Visit Rp H 350.1.13.10 [facility] 4.2.7.2.686 [id number] 2021-01-22 2021-01-22 Outpatient R SABRINA WOOTEN [facility] [id number] Univers 10:20:00 10:20:00 ity [facility] 2021-01-08 2021-01-08 Outpatient R YOVANNY CHOI [facility] [id number] Univers 11:00:00 11:00:00 ity [facility] 2021-01-04 2021-01-04 Outpatient R DIANA [facility] [id number] Univers 10:45:00 10:45:00 WONDIFUL ity o f [facility] 2020-12-18 2020-12-18 Outpatient R FABIOLA IZAGUIRRE [facility] [id number] Univers 10:30:00 10:30:00 ity [facility] 2020-12-04 2020-12-04 Outpatient R DIANA [facility] [id number] Univers 10:00:00 10:00:00 WONDIFUL ity o f [facility] 2020-12-03 2020-12-03 Outpatient R DIANA [facility] [id number] Univers 13:30:00 13:30:00 WONDIFUL ity o f [facility] 2020-12-03 2020-12-03 Outpatient R [facility] [id number] Univers 10:00:00 10:00:00 ity [facility] 2020-12-01 2020-12-01 Outpatient R [facility] [id number] Univers 00:00:00 00:00:00 ity [facility] 2020-11-17 2020-11-17 Outpatient R [facility] [id number] Univers 10:30:00 10:30:00 ity [facility] 2020-11-10 2020-11-10 Outpatient R FELICIANO [facility] [id number] Univers 14:40:00 14:40:00 [facility] 2020-11-09 2020-11-09 Outpatient R FABIOLA IZAGUIRRE [facility] [id number] Univers 00:00:00 00:00:00 ity [facility] 2020-10-29 2020-10-29 Outpatient R ROSANA RANDHAWA [facility] [id number] Univers 14:30:00 14:30:00 ity [facility] 2020-10-28 2020-10-28 Outpatient R [facility] [id number] Univers 00:00:00 00:00:00 ity [facility] 2020-10-23 2020-10-23 Outpatient R [facility] [id number] Univers 14:00:00 14:00:00 ity [facility] 2020-10-23 2020-10-23 (TEL) STLMLC STLMLC [id number] Co mmon 00:00:00 00:00:00 [facility] 2020-10-22 2020-10-22 (TEL) STLMLC STLMLC [id number] Co mmon 00:00:00 00:00:00 [facility] 2020-10-22 2020-10-22 OFFICE STLMLC STLMLC [id number] Co mmon 00:00:00 00:00:00 VISIT EST Spir it PT LEVEL 3 [facility] 2020-10-20 2020-10-20 Outpatient R PARTH [facility] [id number] Univers 10:00:00 10:00:00 ZACH ity [facility] 2020-10-19 2020-10-19 Outpatient R ROSANA RANDHAWA [facility] [id number] Univers 13:30:00 13:30:00 ity [facility] 2020-10-10 2020-10-10 Telephone Brian Edwards 1.2.840.114 [id number] 00:00:00 00:00:00 H 350.1.13.10 [facility] 4.2.7.2.686 [id number] 2020-10-02 2020-10-02 Outpatient R SABRINA WOOTEN [facility] [id number] Univers 00:00:00 00:00:00 ity [facility] 2020-09-29 2020-09-29 Outpatient R BRIAN EDWARDS [facility] [id number] Univers 08:30:00 08:30:00 ity [facility] 2020-09-28 2020-09-28 Outpatient R BRIAN EDWARDS [facility] [id number] Univers 00:00:00 00:00:00 ity [facility] 2020-09-24 2020-09-24 Outpatient R ROSANA RANDHAWA [facility] [id number] Univers 08:00:00 08:00:00 ity [facility] 2020-09-19 2020-09-19 (TEL) STLMLC STLMLC [id number] Co mmon 00:00:00 00:00:00 [facility] 2020-09-14 2020-09-14 Outpatient R [facility] [id number] Univers 09:00:00 09:00:00 [facility] 2020-09-14 2020-09-14 OFFICE STLMLC STLMLC [id number] Co mmon 00:00:00 00:00:00 VISIT EST Spir it PT LEVEL 3 [facility] 2020-09-09 2020-09-09 Outpatient R AKINKAVEH, [facility] [id number] Univers 13:15:00 13:15:00 ALBERTA ity o f [facility] 2020-09-03 2020-09-03 ([place]) Nurse STLMLC STLMLC [id number] Common 00:00:00 00:00:00 Visit [facility] 2020-09-01 2020-09-01 (TEL) STLMLC STLMLC [id number] Co mmon 00:00:00 00:00:00 [facility] 2020-08-28 2020-08-28 Outpatient R SUGARSARBINA [facility] [id number] Univers 11:00:00 11:00:00 ity [facility] 2020-08-27 2020-08-27 [facility] [id number] Univers 14:30:00 14:30:00 PRITESH [facility] 2020-08-25 2020-08-25 Outpatient R [facility] [id number] Univers 14:30:00 14:30:00 PRITESH [facility] 2020-08-12 2020-08-12 OL DIG E/M STLMLC STLMLC [id number] Common 00:00:00 00:00:00 [facility]-20 Spir it MIN [facility] 2020-08-11 2020-08-11 (TEL) [facility] [id number] Co mmon 00:00:00 00:00:00 [facility] 2020-08-07 2020-08-07 Outpatient SABRINA TRAN [facility] [id number] Univers 10:40:00 10:40:00 [facility] 2020-07-23 2020-07-23 Out[facility] [id number] Common 11:20:00 11:20:[address] [facility] 2020-05-28 2020-05-28 Outpatient Moise GREENFIELD [facility] [id number] Univers 10:30:00 10:30:00 [facility] 2020-05[facility]11 2020-05-11 Out[facility] [id number] Common 16:25:00 16:25:[address] [facility] 2020-05-08 2020-05-08 Outpatient SABRINA TRAN [facility] [id number] Univers 11:00:00 11:00:00 [facility] 2020-05-01 2020-05-01 Outpatient [facility] [id number] Common 13:06:00 13:06:[address] [facility] 2020-04-23 2020-04-23 Outpatient [facility] [id number] Common 14:25:00 14:25:[address] [facility] 2020-04-16 2020-04-16 Outpatient [facility] [id number] Common 13:06:00 13:06:[address] [facility] 2020-04-16 2020-04-16 Outpatient [facility] [id number] Common 10:40:00 10:40:[address] [facility] 2020-04-13 2020-04-13 Outpatient [facility] [id number] Common 13:19:00 13:19:[address] [facility] 2020-04-13 2020-04-13 Outpatient [facility] [id number] Common 11:29:00 11:29:[address] [facility] 2020-04-01 2020-04-01 Outpatient Moise PABLO [facility] [id number] Univers 13:30:00 13:30:00 [facility] 2020-03-27 2020-03-27 [id number] Univers 09:20:00 09:20:00 ity [facility] 2020-01-17 2020-01-17 Outpatient Moise PAIGECandice [facility] [id number] Univers 09:00:00 09:00:00 [facility] 2020-01-15 2020-01-15 Out[facility] [id number] Common 12:20:00 12:20:[address] [facility] 2020-01-08 2020-01-08 Outpatient [facility] [id number] Common 08:53:00 08:53:[address] [facility] 2019-12-14 2019-12-14 Emergency X ОЛЬГА, [facility] [id number] Univers 01:43:55 04:36:00 YANIQUE [facility] 2019-11-07 2019-11-07 Emergency X ANDRE III, [facility] [id number] Univers 12:42:39 15:48:00 MARCELO [facility] 2019-10-28 2019-10-28 Outpatient [facility] [id number] Common 09:40:00 09:40:[address] [facility] 2019-10-25 2019-10-25 Outpatient Moise GREENFIELD [facility] [id number] Univers 07:47:33 07:47:00 HI [facility] 2019-09-03 2019-09-03 Outpatient [facility] [id number] Common 16:57:00 16:57:[address] [facility] 2019-08-27 2019-08-27 Outpatient [facility] [id number] Common 08:40:00 08:40:[address] [facility] 2019-08-22 2019-08-22 Outpatient [facility] [id number] Common 09:20:00 09:20:[address] [facility] 2019-08-05 2019-08-05 Outpatient [facility] [id number] Common 16:00:00 16:00:[address] [facility] 2019-03-01 2019-03-01 Outpatient [facility] [id number] Common 09:40:00 09:40:[address] [facility] 2019-01-25 2019-01-25 Outpatient [facility] [id number] Common 09:30:00 09:30:[address] [facility] 2018-10-26 2018-10-26 Outpatient [facility] [id number] Common 09:30:00 09:30:[address] [facility] 2018-07-27 2018-07-27 Outpatient [facility] [id number] Common 10:15:00 10:15:[address] [facility] 2018-05-01 2018-05-01 Eduarda [facility] [id number] [place] 09:15:00 09:15:00 t; ALFREDO, Division of Ph jai EUGENE M.D. Medical Trace Vaz M.D. 2018-05-01 2018-05-01 [facility] [id number] [place] 08:45:00 08:45:00 t; ALONZO GONZALES, Division of Physici ALONZO WAGNER M.D. Che weinstein M.D. Genetics 2018-04-27 2018-04-27 Outpatient Wilberto Waters [id number] Common 10:15:00 10:15:00 [place] [employer] [employer] [facility] 2017-05-08 2017-05-08 Appointnessa [facility] UTP [id number] [place] 09:00:00 09:00:00 t; Geovanna FUENTES i, M.D. ans JOSHUA, M.D. 2017-02-28 2017-02-28 Eduarda EUGENE [facility] [id number] [place] 09:45:00 09:45:00 t; Geovanna FUENTES i, M.D. ans JOSHUA, M.D. 2017-02-28 2017-02-28 Eduarda GONZALES [facility] [id number] UT 09:45:00 09:45:00 t; ALONZO GONZALES P hysici MARY KAY, M.D. ans M.D. 2017-02-28 2017-02-28 [facility] [id number] [place] 09:30:00 09:30:00 t; Reji ASIF ans HOPE, M.D. Results Test Description Test Time Test Comments Results Result Comments Source HIV 1/2 AG-AB WITH REFLEX 2022-08-17 17:57:25 Test Item Value Reference Range Interpretation Comme nts HIV Semi-quantitative (test code = Negative Negative 87262-7) [place] (test code = [place]) Non-reactive for HIV-1 antigen and HIV-1/HIV-2 antibodies. ?No laboratory evidence of HIV infection. ?Repeat in 2-4 weeks if acute HIV infection is suspected. [facility] (NA, K, CL, CO2, GLUCOSE, BUN, CREATININE, CA)2022-08-17 17:21:19 Test Item Value Reference Range Interpretation Comments NA (test code = 142 mmol/L 135-145 5022491491) K (test code = 4.9 mmol/L 3.5-5 8204580529) CL (test code = 106 mmol/L 98-108 8056529789) CO2 TOTAL (test code = 21 mmol/L 23-31 L 2953536448) AGAP (test code = 2-16 5292042773) BUN (test code = 25 mg/dL 7-23 H 8854912492) GLUCOSE (test code = 95 mg/dL 70-110 0071591157) CREATININE (test code = 2.10 mg/dL 0.5-1.04 H 7385387867) CALCIUM (test code = 9.8 mg/dL 8.6-10.6 3302265519) eGFR (test code = mL/min/1.73m2 7597260117) [place] (test code = [place]) Association of [...] tests). Lab Interpretation Abnormal (test code = 08081-6) [facility]2022-10-05 17:20:59 Test Item Value Reference Range Interpretation Comments PHOSPHORUS (test code = 4270909698) 3.6 mg/dL 2.5-5 Lab Interpretation (test code = Normal 32998-3) [facility] [id number] 17:20:59 Test Item Value Reference Range Interpretation Comments URIC ACID (test code = 0916676819) 8.5 mg/dL 2.9-6 H Lab Interpretation (test code = Abnormal 94791-3) [facility] WITH [id number] 15:27:41 Test Item Value Reference Range Interpretation Comments WBC (test code = See_Comment [Automated 2290-2) message] The sy stem which generated this result transmitted reference range : 4.30 - 11.10 10*3/?L. The reference range was not used to interpret this result as normal/abnormal . RBC (test code = See_Comment [Automated 789-8) message] The sy stem which generated this result transmitted reference range : 3.93 - 5.25 10*6/?L. The reference range was not used to interpret this result as normal/abnormal . HGB (test code = 12.1 g/dL 11.6-15 718-7) HCT (test code = 37.6 % 35.7-45.2 4544-3) MCV (test code = 94.2 fL 80.6-95.5 787-2) MCH (test code = 30.3 pg 25.9-32.8 785-6) MCHC (test code = 32.2 g/dL 31.6-35.1 786-4) RDW-SD (test code = 42.8 fL 39-49.9 46817-7) RDW-CV (test code = 12.3 % 12-15.5 788-0) PLT (test code = See_Comment H [Automated 777-3) message] The sy stem which generated this result transmitted reference range : 166 - 358 10*3/ ?L. The reference r tabitha was not used to interpret this result as normal/abnormal . MPV (test code = 9.5 fL 9.5-12.9 47992-6) NRBC/100 WBC (test See_Comment [Automat ed code = 9575976791) message] The system which generated this result transmitted reference range : 0.0 - 10.0 /100 WBCs. The refer ence range was not u sed to interpret th is result as normal/abnormal . NRBC x10^3 (test code See_Comment [Auto mated = 7420679093) message] The s ystem which generated this result transmitted reference range : 10*3/?L. The reference range was not used to interpret this result as normal/abnormal . GRAN MAT (NEUT) % 68.1 % (test code = 770-8) IMM GRAN % (test code 0.70 % = 6717028733) LYMPH % (test code = 24.1 % 736-9) MONO % (test code = 6.0 % 5905-5) EOS % (test code = 0.6 % 713-8) BASO % (test code = 0.5 % 706-2) GRAN MAT x10^3(ANC) 5.47 10*3/uL 1.88-7.09 (test code = 8384483317) IMM GRAN x10^3 (test 0.06 10*3/uL 0-0.06 code = 9633241826) LYMPH x10^3 (test code 1.94 10*3/uL 1.32-3.29 = 731-0) MONO x10^3 (test code 0.48 10*3/uL 0.33-0.92 = 742-7) EOS x10^3 (test code = 0.05 10*3/uL 0.03-0.39 711-2) BASO x10^3 (test code 0.04 10*3/uL 0.01-0.07 = 704-7) Lab Interpretation Abnormal (test code = 16977-9) [facility], THIRD [id number] 05:36:56 Test Item Value Reference Range Interpretation Comments TSH, THIRD 2.460 UIU/ML 0.400-4.100 UNLESS OTHERWI SE GENERATION (test INDICATED, ALL TESTING code = 2821) PERFORMED [facility], [facility]. [address] [place] [id number] [place] [address] DIRECTOR: ARNIE HAYES M.D. CLIA NUMBER [id number] CAP ACCREDITATION N O. [id number] COMPREHENSIVE METABOLIC [id number] 03:24:51 Test Item Value Reference Range Interpretation Comments GLUCOSE (test code = 104 MG/DL 70-99 H 2216) BUN (test code = 33 MG/DL 6-20 H 2207) CREATININE (test 1.95 MG/DL 0.60-1.30 H code = 221) eGFR (2020 CKD-EPI) 35 ML/MIN/1.73 >60 L (test code = 64171) CALC BUN/CREAT (test 17 RATIO 6-28 code = 2235) SODIUM (test code = 140 MEQ/L 076-253 4635) POTASSIUM (test code 4.2 MEQ/L 3.5-5.4 = 2227) CHLORIDE (test code 104 MEQ/L 95-107 = 2214) CARBON DIOXIDE (test 21 MEQ/L 19-31 code = 220) CALCIUM (test code = 9.7 MG/DL 8.5-10.5 2208) PROTEIN, TOTAL (test 8.1 G/DL 6.1-8.3 code = 2228) ALBUMIN (test code = 4.7 G/DL 3.5-5.2 2200) CALC GLOBULIN (test 3.4 G/DL 1.9-3.7 code = 224) CALC A/G RATIO (test 1.4 RATIO 1.0-2.6 code = 223) BILIRUBIN, TOTAL <0.2 MG/DL See_Comment [Automated message] (test code = 2206) The syste m which generated this result transmit christian reference range : <=1.2. The refe rence range was not u sed to interpret th is result as normal/abnormal . ALKALINE PHOSPHATASE 134 U/L 40-114 H (test code = 220) AST (test code = 12 U/L 9-40 2217) ALT (test code = 11 U/L 5-40 2218) FERRITIN [id number] 19:05:22 Test Item Value Reference Range Interpretation Comments FERRITIN (test code = 203.0 ng/mL 6.0-137.0 H 2177157355) [place] (test code = [place]) Biotin has been reported to cause a negative bias, interpret results relative to patient's use of biotin. Lab Interpretation (test Abnormal code = 01093-1) [facility] IRON BINDING [id number] 18:37:34 Test Item Value Reference Range Interpretation Comments TIBC (test code = 1745629892) 271 ug/dL 250-410 Lab Interpretation (test code = Normal 51438-4) [facility]. METABOLIC PANEL (88462)2021-12-24 18:27:10 Test Item Value Reference Range Interpretation Comments NA (test code = 140 mmol/L 135-145 1513237365) K (test code = 4.7 mmol/L 3.5-5.0 5598417115) CL (test code = 108 mmol/L 98-108 5944015057) CO2 TOTAL (test code = 21 mmol/L 23-31 L 8711522440) AGAP (test code = 2-16 7840367070) BUN (test code = 22 mg/dL 7-23 7801649815) GLUCOSE (test code = 83 mg/dL 70-110 9029307890) CREATININE (test code = 2.00 mg/dL 0.50-1.04 H 9882540271) TOTAL BILI (test code = 0.4 mg/dL 0.1-1.4 8078134802) CALCIUM (test code = 9.7 mg/dL 8.6-10.6 6460751622) T PROTEIN (test code = 8.4 g/dL 6.3-8.2 H 6077234178) ALBUMIN (test code = 4.6 g/dL 3.5-5.0 7355350167) ALK PHOS (test code = 125 U/L 34-122 H 4573092075) ALTv (test code = 13 U/L 5-35 1742-6) AST(SGOT) (test code = 20 U/L 13-40 2059522603) eGFR (test code = mL/min/1.73m2 4126602210) [place] (test code = [place]) Association of [...] tests). Lab Interpretation Abnormal (test code = 85864-1) [facility] WITH [id number] 18:10:27 Test Item Value Reference Range Interpretation Comments WBC (test code = See_Comment [Automated 9844-2) message] The sy stem which generated this result transmitted reference range : 4.30 - 11.10 10*3/?L. The reference range was not used to interpret this result as normal/abnormal . RBC (test code = See_Comment [Automated 009-8) message] The sy stem which generated this [...] RDW-SD (test code = 42.7 fL 39.0-49.9 15149-8) RDW-CV (test code = 12.4 % 12.0-15.5 788-0) PLT (test code = See_Comment H [Automated 297-3) message] The sy stem which generated this result transmitted reference range : 166 - 358 10*3/ ?L. The reference r tabitha was not used to interpret this result as normal/abnormal . MPV (test code = 9.9 fL 9.5-12.9 77867-2) NRBC/100 WBC (test See_Comment [Automat ed code = 3928217729) message] The system which generated this result transmitted reference range : 0.0 - 10.0 /100 WBCs. The refer ence range was not u sed to interpret th is result as normal/abnormal . NRBC x10^3 (test code <0.01 See_Comment [Auto mated = 8429600353) message] The s ystem which generated this result transmitted reference range : 10*3/?L. The reference range was not used to interpret this result as normal/abnormal . GRAN MAT (NEUT) % 66.2 % (test code = 770-8) IMM GRAN % (test code 1.20 % = 5784815645) LYMPH % (test code = 24.3 % 736-9) MONO % (test code = 7.1 % 5905-5) EOS % (test code = 0.8 % 713-8) BASO % (test code = 0.4 % 706-2) GRAN MAT x10^3(ANC) 7.14 10*3/uL 1.88-7.09 H (test code = 2507441193) IMM GRAN x10^3 (test 0.13 10*3/uL 0.00-0.06 H code = 8638403574) LYMPH x10^3 (test code 2.62 10*3/uL 1.32-3.29 = 731-0) MONO x10^3 (test code 0.76 10*3/uL 0.33-0.92 = 742-7) EOS x10^3 (test code = 0.09 10*3/uL 0.03-0.39 711-2) BASO x10^3 (test code 0.04 10*3/uL 0.01-0.07 = 704-7) Lab Interpretation Abnormal (test code = 80666-9) [facility]. Metabolic Panel (14) (CMP)2020-10-22 00:00:00 Test Item Value Reference Range Interpretation Comments Glucose (test code = 2345-7) 83 65-99 BUN (test code = 3094-0) 14 6-20 Creatinine (test code = 2160-0) 1.10 0.57-1.00 eGFR If NonAfricn Am (test code = 68 >59 71386-6) eGFR If Africn Am (test code = 34985-2) 78 >59 BUN/Creatinine Ratio (test code = 13 - 3097-3) Sodium (test code = 2951-2) 140 134-144 Potassium (test code = 2823-3) 4.9 3.5-5.2 Chloride (test code = 2075-0) 106 96-106 Carbon Dioxide, Total (test code = -2027-) Calcium (test code = 45937-4) 9.6 8.7-10.2 Protein, Total (test code = 2885-2) 7.6 6.0-8.5 Albumin (test code = 1751-7) 4.3 3.9-5.0 Globulin, Total (test code = 61006-4) 3.3 1.5-4.5 A/G Ratio (test code = 1759-0) 1.3 1.2-2.2 Bilirubin, Total (test code = 1974-2) 0.2 0.0-1.2 Alkaline Phosphatase (test code = 115 39-117 6768-6) AST (SGOT) (test code = 1920-8) 30 0-40 ALT (SGPT) (test code = 1742-6) 32 0-32 CBC With Differential/[id number] 00:00:00 Test Item Value Reference Range Interpretation Comments WBC (test code = 6690-2) 7.7 3.4-10.8 RBC (test code = 789-8) 4.07 3.77-5.28 Hemoglobin (test code = 718-7) 12.2 11.1-15.9 Hematocrit (test code = 4544-3) 37.5 34.0-46.6 MCV (test code = 787-2) 92 79-97 MCH (test code = 785-6) 30.0 26.6-33.0 MCHC (test code = 786-4) 32.5 31.5-35.7 RDW (test code = 788-0) 13.4 11.7-15.4 Platelets (test code = 777-3) 448 150-450 Neutrophils (test code = 770-8) 65 Not Estab. Lymphs (test code = 736-9) 26 Not Estab. Monocytes (test code = 5905-5) 7 Not Estab. Eos (test code = 713-8) 1 Not Estab. Basos (test code = 706-2) 0 Not Estab. Immature Cells (test code = UNLOINC) Neutrophils (Absolute) (test code = 5.0 1.4-7.0 751-8) Lymphs (Absolute) (test code = 731-0) 2.0 0.7-3.1 Monocytes(Absolute) (test code = 742-7) 0.5 0.1-0.9 Eos (Absolute) (test code = 711-2) 0.1 0.0-0.4 Baso (Absolute) (test code = 704-7) 0.0 0.0-0.2 Immature Granulocytes (test code = 1 Not Estab. 68644-3) Immature Grans (Abs) (test code = 0.1 0.0-0.1 24291-8) NRBC (test code = 81536-5) Hematology Comments: (test code = 91859-2) [O] Urine Dipstick (In Office)2018-05-01 10:25:00 Test Item Value Reference Range Interpretation Comments LEUKOCYTES (test code = Negative N LEUKOCYTES) NITRITE; Normal (test code = Negative N 25724-3) UROBILINOGEN; Normal (test code 0.2 N = 17453-7) PROTEIN (test code = 95657-4) 30 pH (test code = pH) 7.0 N URINE BLOOD (test code = Trace-Intact 23665-1) SPECIFIC GRAVITY; Normal (test 1.020 N code = 2965-2) KETONES; Normal (test code = Negative N 61736-7) BILIRUBIN; Normal (test code = Neative N 58021-8) GLUCOSE; Normal (test code = Negative N 1547-9) [facility]"
[2022-12-11 20:50] LABS: Urine Blood Trace-lysed (Negative); Urine Glucose Negative (Negative); Urine Protein 2+ (Negative)
[2022-12-11 20:55] LABS: Urine Bacteria <20 /HPF (<20); Urine RBC <5 /HPF (None Seen)
--- NOTE | 2022-12-11 21:00 | EDPHYS ---
Physician Documentation [facility] Name: Kitty Wall Age: 32 yrs Sex: Female : 1990 Arrival Date: 12/11/2022 Time: 18:49 Bed 6 Private MD: LAKSHMI Physician Imtiaz Beverly HPI: 12/11 21:11 This 32 yrs old Female presents to ER via Ambulatory with complaints of kb Urinary Problem. 21:11 The patient presents with urinary symptoms, dysuria. Onset: The symptoms/episode kb began/occurred 1 month(s) ago. Modifying factors: The symptoms are alleviated by nothing, the symptoms are aggravated by urinating. Associated signs and symptoms: Pertinent positives: dysuria, Pertinent negatives: fever, hematuria, urinary frequency. Severity of symptoms: At their worst the symptoms were moderate, in the emergency department the symptoms are unchanged. The patient has not experienced similar symptoms in the past. The patient has been recently seen by a physician:. 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 - Social history:: Smoking status: Patient denies any tobacco usage or history of. ROS: 21:17 Constitutional: Negative for fever, chills, and weight loss. kb 21:17 : Positive for burning with urination. 21:17 All other systems are negative. Exam: 21:17 Constitutional: This is a well developed, well nourished patient who is awake, alert, kb and in no acute distress. Head/Face: Normocephalic, atraumatic. ENT: Moist Mucous membranes Cardiovascular: Regular rate and rhythm with a normal S1 and S2. No gallops, murmurs, or rubs. No pulse deficits. Respiratory: Respirations even and unlabored. No increased work of breathing. Talking in full sentences Abdomen/GI: Soft, non-tender. No distention Skin: Warm, dry with normal turgor. Normal color. MS/ Extremity: Pulses equal, no cyanosis. Neurovascular intact. Full, normal range of motion. Neuro: Awake and alert, GCS 15, oriented to person, place, time, and situation. Moves all extremities. Normal gait. Vital Signs: 18:57 BP 122 / 84; Pulse 106; Resp 18; Temp 98; Pulse Ox 100% ; Weight 75.75 kg; Height 5 ft. ko1 1 in. (154.94 cm); 18:57 Body Mass Index 31.55 (75.75 kg, 154.94 cm) ko1 MDM: 18:50 Patient medically screened. kb 21:11 Differential diagnosis: UTI, dysuria. Data reviewed: vital signs, nurses notes. kb Counseling: I had a detailed discussion with the patient and/or guardian regarding: the historical points, exam findings, and any diagnostic results supporting the discharge/admit diagnosis, lab results, the need for outpatient follow up, a family practitioner, to return to the emergency department if symptoms worsen or persist or if there are any questions or concerns that arise at home. 12/11 18:53 Order name: Urine Microscopic Only; Complete Time: 20:56 kb 12/11 20:50 Order name: Urine Dipstick-Ancillary; Complete Time: 20:52 EDMS 12/11 18:53 Order name: Urine Dipstick-Ancillary (obtain specimen); Complete Time: 20:49 kb 12/11 18:53 Order name: Urine Test (obtain specimen); Complete Time: 20:49 kb 12/11 20:51 Order name: Urine --Ancillary (enter results); Complete Time: 20:56 mw2 Administered Medications: No medications were administered Disposition Summary: 12/11/22 20:59 Discharge Ordered Location: Home kb Condition: Stable kb Diagnosis - Dysuria kb Followup: kb - With: Emergency Department - When: As needed - Reason: Worsening of condition Followup: kb - With: Private Physician - When: 2 - 3 days - Reason: Recheck today's complaints, Continuance of care, Re-evaluation by your physician Discharge Instructions: - Discharge Summary Sheet kb - Dysuria kb Forms: - Medication Reconciliation Form kb - Thank You Letter kb - Antibiotic Education kb - Prescription Opioid Use kb Prescriptions: - Pyridium 200 mg Oral Tablet - take 1 tablet by ORAL route every 8 hours for 3 days; 9 tablet; Refills: 0, kb Product Selection Permitted Signatures: Dispatcher [employer] Sommer Fay, CLINICAL RESEARCH PHYSICIAN-C CLINICAL RESEARCH PHYSICIAN-Ckb Tali Ford, RN RN ko1
--- NOTE | 2022-12-11 21:00 | ER ---
Nurse's Notes [facility] Name: Kitty Wall Age: 32 yrs Sex: Female : 1990 Arrival Date: 12/11/2022 Time: 18:49 Bed 6 Private MD: Diagnosis: Dysuria Presentation: 12/11 18:57 Chief complaint: Patient states: urinary problem, tight and painful when i pee. ko1 Coronavirus screen: At this time, the client does not indicate any symptoms associated with coronavirus-19. Ebola Screen: No symptoms or risks identified at this time. Initial Sepsis Screen: Does the patient meet any 2 criteria? No. Patient's initial sepsis screen is negative. Does the patient have a suspected source of infection? No. Patient's initial sepsis screen is negative. Risk Assessment: Do you want to hurt yourself or someone else? Patient reports no desire to harm self or others. Onset of symptoms was November 13, 2022. 18:57 Method Of Arrival: Ambulatory ko1 18:57 Acuity: GULSHAN 4 ko1 Triage Assessment: 19:00 General: Appears in no apparent distress. comfortable, Behavior is calm, cooperative, ko1 appropriate for age. Pain: Denies pain. 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 - Social history:: Smoking status: Patient denies any tobacco usage or history of. Screenin:40 [facility] ED Fall Risk Assessment (Adult) History of falling in the last 3 months, tw5 including since admission No falls in past 3 months (0 pts). Abuse screen: Denies threats or abuse. Nutritional screening: No deficits noted. Tuberculosis screening: No symptoms or risk factors identified. Assessment: 20:40 General: Appears in no apparent distress. Behavior is calm, cooperative, appropriate tw5 for age. Respiratory: Airway is patent Trachea midline Respiratory effort is even, unlabored. Vital Signs: 18:57 BP 122 / 84; Pulse 106; Resp 18; Temp 98; Pulse Ox 100% ; Weight 75.75 kg; Height 5 ft. ko1 1 in. (154.94 cm); 18:57 Body Mass Index 31.55 (75.75 kg, 154.94 cm) ko1 ED Course: 18:49 Patient arrived in ED. rg4 18:50 Sommer Narayan FNP-C is [facility]. kb 18:50 Imtiaz Beverly MD is Attending Physician. kb 18:59 Triage completed. ko1 19:00 Arm band placed on right wrist. ko1 20:38 Mónica Lr is Primary Nurse. tw5 20:40 Patient has correct armband on for positive identification. Bed in low position. Call tw5 light in reach. Side rails up X 1. Door closed. Assisted to bathroom. 20:49 Urine Microscopic Only Sent. jb4 21:08 No provider procedures requiring assistance completed. Patient did not have IV access vc1 during this emergency room visit. Administered Medications: No medications were administered Medication: 21:08 VIS not applicable for this client. vc1 Outcome: 20:59 Discharge ordered by . kb 21:08 Discharged to home ambulatory, with significant other. vc1 21:08 Condition: good 21:08 Discharge instructions given to patient, Instructed on discharge instructions, follow up and referral plans. medication usage, Demonstrated understanding of instructions, follow-up care, medications, Prescriptions given X 1. 21:08 Patient left the ED. vc1 Signatures: Sommer Narayan FNP-C FNP-Ckb Garcia, Rubi rg4 Brandin Nugent RN RN jb4 Mónica Lr tw5 Jenifer Tucker RN RN vc1 Tali Ford, ANN MARIE RN ko1
[2022-12-11 22:06] VITALS: BP 122/84; TEMP 98; O2SAT 100
== END 2022-12-11 21:08 | disposition home or self-care (01) ==
LOC: ER 18:44
DX: R30.0 Dysuria (principal)
CPT/HCPCS: 81003; 81015; 81025; 99283

== ENCOUNTER 2023-05-15 17:36 | Emergency (ER) | payer OTHER ==
--- OUTSIDE RECORDS SUMMARY | 2023-05-15 17:44 | XMS REPORT | Continuity of Care Document ---
:1990 Author Organization [facility] t Address [address] [place] [address] Care Team Providers Name Role Phone Diana HUERTA, Preet Harvey Primary Care Physician [phone] Shantelle Bates Attending Clinician Unavailable JOSHUA LOPEZ Attending Clinician Unavailable JOSHUA LOPEZ Attending Clinician Unavailable PATRICK TILLMAN Attending Clinician Unavailable Visit, [place] Nurse Attending Clinician Unavailable Alberta Angulo Attending Clinician [phone] ALBERTA HURST Attending Clinician Unavailable Pob, [facility] Main Attending Clinician Unavailable Tari Trivedi MD Attending Clinician TARI TRIVEDI Attending Clinician Unavailable Doctor Unassigned, Onset Attending Clinician Unavailable PHILLIP, AVE L Attending Clinician Unavailable Phillip SORTOP, Ave L Attending Clinician Patrick Tillman MD Attending Clinician OBED COLLAZO Attending Clinician Unavailable ELICEO, VANDANA Phipps Attending Clinician Unavailable PRECIOUS VERDUGO Attending Clinician Unavailable Precious Verdugo MD Attending Clinician Eliceo SORTOP, Vandana Phipps Attending Clinician DELILAH JOYA Attending Clinician Unavailable SABRINA WOOTEN RP Attending Clinician Unavailable Sabrina Wooten MD, Rp Attending Clinician PREET ORTIZ Attending Clinician Unavailable [facility] Attending Clinician Unavailable Jean Pierre OSMAN, Pritesh Haines Attending Clinician Preet Ortiz MD Attending Clinician LA BRANCH Attending Clinician Unavailable Brad Barnes MD Attending Clinician Connie Barbosa Attending Clinician Unavailable Jimmy Madrid MD Attending Clinician Barbara OSMAN, Tania Attending Clinician PRITESH GREENFIELD Attending Clinician Unavailable JIMMY MADRID Attending Clinician Unavailable Joshua Lopez MD Attending Clinician Only, Adc Test Attending Clinician Unavailable Akhil Dumas MD Attending Clinician AKHIL DUMAS Attending Clinician Unavailable Josseline Capone MD Attending Clinician JOSSELINE CAPONE Attending Clinician Unavailable FABIOLA IZAGUIRRE Attending Clinician Unavailable ASHLEY HODGES Attending Clinician Unavailable KASH DU Attending Clinician Unavailable PAOLA SAEZ Attending Clinician Unavailable ABUNDIO OLIVA Attending Clinician Unavailable Call, [facility] Phone Attending Clinician Unavailable GIL CORTEZ Attending Clinician Unavailable GIL CORTEZ Attending Clinician Unavailable RENATO SANTIAGO Attending Clinician Unavailable SHAKIR REDDY Attending Clinician Unavailable Adam DOUGHERTY Shea Attending Clinician KORINA MEDINAYA Attending Clinician Unavailable Renato Santiago MD Attending Clinician Mariana Cooley Attending Clinician UNKNOWN, ATTENDING Attending Clinician Unavailable DAVID CORRAL III Attending Clinician Unavailable COCO ANDERSON Attending Clinician Unavailable Fabiola Cadet Attending Clinician JAMEY HIGGINBOTHAM Attending Clinician Unavailable Jamey Higginbotham DO Attending Clinician Nurse, [facility] Attending Clinician Unavailable YOVANNY CHOI Attending Clinician Unavailable KATARINA WIGGINS Attending Clinician Unavailable ROSANA RANDHAWA Attending Clinician Unavailable ZACH ALBA Attending Clinician Unavailable Brian Edwards NP Attending Clinician BRIAN EDWARDS Attending Clinician Unavailable HI GREENFIELD Attending Clinician Unavailable RAJ PABLO Attending Clinician Unavailable YANIQUE ROLON Attending Clinician Unavailable MARCELO POWELL III Attending Clinician Unavailable ALFREDO EUGENE M.D. Attending Clinician Unavailable ALONZO GONZALES M.D. Attending Clinician Unavailable LAYA FELIX M.D. Attending Clinician Unavailable JOSHUA LOPEZ Admitting Clinician Unavailable PATRICK TILLMAN Admitting Clinician Unavailable PRECIOUS VERDUGO Admitting Clinician Unavailable SABRINA WOOTEN RP Admitting Clinician Unavailable Joshua Lopez MD Admitting Clinician YANIQUE ROLON Admitting Clinician Unavailable MARCELO POWELL III Admitting Clinician Unavailable HI GREENFIELD Admitting Clinician Unavailable Payers Payer Name Policy Type Policy Number Effective Date Expiration Date Bib baeza TOBIN [id number] 2015 HEALTHCARE 00:00:00 MEDICAID RUDD C1 [id number] 2018 Common HEALTHCARE 00:00:00 [facility] RUDD C1 [id number] 2018 Common HEALTHCARE 00:00:00 [facility] RUDD C1 [id number] 2018 Common HEALTHCARE 00:00:00 [facility] RUDD C1 [id number] 2018 Common HEALTHCARE 00:00:00 [facility] TOBIN Srinivasan [id number] 2018 Common HEALTHCARE 00:00:00 [facility] TOBIN Srinivasan [id number] 2018 Common HEALTHCARE 00:00:00 [facility] TOBIN Srinivasan [id number] 2018 Common HEALTHCARE 00:00:00 [facility] TOIBN Srinivasan [id number] 2018 [employer] [facility]CARE 00:00:00 [facility] TOBIN Srinivasan [id number] 2018 Common [facility]ALTHCARE 00:00:00 [facility] Problems Condition Condition Condition Status Onset Resolution Last Treating Co mments Source Name Details Category Date Date Treatment Clinician Date Other Other Disease Active Univers general general -27 ity of counseling [place] and advice and advice 00 De dical for for Branch contracept contracept ric ric management management 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 +hpv, pending colpo appt Gastritis Gastritis Disease Active 2020-11 Uni vers 0-10 ity of 00:00: [address] Vaginal Vaginal Disease Active Univers discharge discharge 9-24 ity of 00:00: [address] Dysuria Dysuria Disease Active Univers 9-24 ity of 00:00: [address] Encounter Encounter Disease Active Uni vers for for 9-24 ity of surveillan surve[place]an [place] ce of ce of 00 Medical implantabl implantabl Br anch e e subdermal subdermal contracept contracept ric ric Dysphagia, Dysphagia, Disease Active Overview : Univers pharyngoes pharyngoes -17 Formattin ity of ophageal ophageal 00:00: g of this [place] as phase phase 00 note Medical might be Branch different from the original. Added automatic ally from request for surgery [id number] Acute left Acute left Disease Active U devangers flank pain flank pain 6-29 it y of 00:00: Medical Branch BRYAN (acute BRYAN (acute Disease Active U nivers kidney kidney 6-25 ity of injury) injury) 00:00: Medical Branch RLS RLS Disease Active Univers (restless (restless 2-22 ity of legs legs 00:00: [place] syndrome) syndrome) 00 [facility] Branch Anxiety Anxiety Disease Active Univers 2-22 ity of 00:00: Medical Branch Vitamin D Vitamin D Disease Active Uni vers deficiency deficiency 1-27 it y of 00:00: Medical Branch Vitamin B6 Vitamin B6 Disease Active U nivers deficiency deficiency 1-27 it y of 00:00: [place] [facility] Papanicola Papanicola Disease Active 2019-11 [...] deficiency deficiency 0-16 it y of 00:00: Medical Branch Chronic Chronic Disease Active 2019-11 Univers fatigue fatigue 0-16 ity of 00:00: [place] [facility] Depression Depression Disease Active Overview [...] urgent/em ergent care including calling Suicide Hotline ([phone]) or 918.Follo w up in one month with Psycholog [...] Disease Active Overview : Univers on on 6 Formattin ity of 00:00: g of this [...] Formattin ity of 00:00: g of this [place] note Medical might be Branch different from the original. Last Assessmen t & Plan: Condition : stableFol low up in: three months Status Status Disease Active Univers post post 12-05 ity of nephrectom [place]om [place] y y Medical [place] Status Status Disease Active Univers post post 12-05 ity of nephrectom nephrectom [place] 00 Medical Branch Pulmonary Pulmonary Disease Active Uni vers nodules nodules 12-05 ity of 00:00: [place] [facility] Renal mass Renal mass Disease Active 2018-11 Overview : Univers -20 Formattin ity of 00:00: g of this [place] note Medical might be Branch different from the original. Added automatic ally from request for surgery [id number] Angiomyoli Angiomyoli Disease Active 2018-11 Overview : Univers guevara of guevara of 20 Formattin ity o f both both 00:00: g of this [place] kidneys kidneys note Medical might be Branch different from the original. Added automatic ally from request for surgery [id number] Obesity Obesity Disease Active 2018-11 Univers (BMI (BMI 1-15 ity of 30-39.9) 30-39.9) 00:00: [place] [facility] Mass of Mass of Disease Active 2018-11 Univers right right 1-14 ity of kidney kidney 00:00: [place] [address] Medical Branch Seizure Seizure Problem Active Common disorder disorder [facility] Back pain Back pain Problem Active Com mon Spirit [facility] Obesity Obesity Problem Active Common [facility] Insomnia Insomnia Problem Active Commo n Spirit [facility] 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 - [facility] depressive [facility] Angiomyoli Angiomyoli Problem Active C ommon guevara of guevara of Spirit left left - [facility] kidney kidney [facility] 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 - [facility] n n [facility] ([facility] 35-49) 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[facility] neoplasm neoplasm Physic i of kidney of kidney ans Seizure Seizures Problem Active Common [facility] [id number] 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 - [facility] [id number] 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 - [facility] [id number] BCP ( Problem Active Com mon control Spirit pills) - [facility] initiation [facility] [id number] Exposure Problem Active Comm on to Spirit sexually - [facility] (STD) [facility] 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 Spir it - [facility] [id number] Acne Problem Active Common rosacea [facility] [id number] Gastroesop Problem Active Co mmon hageal Spirit reflux - [facility] disease [facility] esophagiti Medica s [place] [id number] Uses Problem Active Co mmon control [facility] Onychomyco Onychomyco Problem Active C ommon sis sis [facility] Mental Mental Problem Active [facility] retardatio retardatio Ph ysici n n ans Panic Panic Problem Active Common disorder attacks [facility] [id number] Seasonal Problem Active Comm on allergies Spirit [facility] [id number] Problem Active Com mon test Spirit performed, - [facility] Angiomyoli Angiomyoli Problem Active U T guevara [...] Active Univers ALLERGIE Class ity of S [place] [facility] Social History Social Habit Start Date Stop Date Quantity Comments Source History SDCO University o f Alcohol Std [place] Medical Drinks Branch History SDCO University o f Alcohol Binge [place] [facility] al Branch History [facility] University o f Alcohol Comment [place] Med ical Branch History of Common Spirit - Tobacco Use [facility] Sex Assigned At Common Sp escobar - [facility] Alcohol intake 2023-04-18 2023-04-18 Lifetime University of 00:00:00 00:00:00 non-drinker [facility] (finding) Branch Exposure to 2023-03-12 2023-03-22 Not sure University SARS-CoV-2 00:00:00 07:37:00 [facility] (event) Branch Tobacco use and 2022-08-11 2022-08-11 Smokeless tobacco Un iversity of exposure 00:00:00 00:00:00 non-user [facility] Branch Education 2021-05-07 2021-05-07 13 [facility] 00:00:00 00:00:00 [place] [facility] History SDCO 2020-01-17 2020-01-17 1 University o f Alcohol Frequency 00:00:00 00:00:00 [facility] edical Branch History SDCO 2019-09-26 2019-09-26 5 University o f Financial 00:00:00 00:00:00 [place] [facility] History [facility] Food 2019-09-26 2019-09-26 1 Univers ity of Worry 00:00:00 00:00:00 [place] [facility] History [facility] Food 2019-09-26 2019-09-26 1 Univers ity of Scarcity 00:00:00 00:00:00 [place] [facility] History SDCO 2019-09-26 2019-09-26 2 University o f Transport Med 00:00:00 00:00:00 [place] Medic al Branch History [facility] 2019-09-26 2019-09-26 2 University o f Transport Non-Med 00:00:00 00:00:00 [facility] Branch Smoking Status Start Date Stop Date Source Never smoked tobacco [facility] Medications Ordered Filled Start Stop Current Ordering Indication Dosage Frequency Signature Comments Components Source Medication Medication Date Date Medication? Clinician (SIG) Name Name metoprolol Yes [id number] 25mg Take 1 U nivers succinate 5-31 tablet by ity o f XL 25 mg 24 00:00: mouth in [place] hr tablet 00 the Medical morning. Branch metoprolol Yes [id number] 25mg Take 1 U nivers succinate 5-31 tablet by ity o f XL 25 mg 24 00:00: mouth [place] hr tablet 00 the Medical morning. Branch metoprolol Yes [id number] 25mg Take 1 U nivers succinate 5-31 tablet by ity o f XL 25 mg 24 00:00: [place] hr tablet 00 the Medical morning. Branch metoprolol 3-0 Yes [id number] 25mg Take 1 U nivers succinate 5-31 tablet by ity o f XL 25 mg 24 00:00: mouth [place] hr tablet 00 the Medical morning. Branch metoprolol 2023-0 Yes [id number] 25mg Take 1 U nivers succinate 5-31 tablet by ity o f XL 25 mg 24 00:00: mouth [place] hr tablet 00 the Medical morning. Branch metoprolol 3-0 Yes [id number] 25mg Take 1 U nivers succinate 5-31 tablet by ity o f XL 25 mg 24 00:00: mouth in [place] hr tablet 00 the Medical morning. Branch metoprolol 3-0 Yes [id number] 25mg Take 1 U nivers succinate 5-31 tablet by ity o f XL 25 mg 24 00:00: [place] hr tablet 00 the Medical morning. Branch medroxyPROG 2022-0 2023- No [id number] 150mg Univers ESTERone 01-31- ity of (DEPO-PROVE 19:45: 20:44 [place] RA) syringe 00 :00 Medical 150 mg Branch medroxyPROG 2022-0 2023- No [id number] 150mg 150 mg, Univers ESTERone 01-31 Intramuscu ity of (DEPO-PROVE 19:45: 20:44 [facility], [place] RA) syringe 00 :00 [id number], Med ical 150 mg 4 doses, Branch First dose on Mon01/31/23 at 1445, Last dose on Mon10/10/23 at 1445, Routine medroxyPROG 2022-2023- No [id number] 150mg Univers ESTERone 01-31-20 ity of (DEPO-PROVE 19:45: 20:44 [place] RA) syringe 00 :00 Medical 150 mg Branch medroxyPROG 2022-2023- No [id number] 150mg 150 mg, Univers ESTERone 01-31 Intramuscu ity of (DEPO-PROVE 19:45: 20:44 lar, [place] RA) syringe 00 :00 [id number], Med ical 150 mg 4 doses, Branch First dose on Mon01/31/23 at 1445, Last dose on Mon10/10/23 at 1445, Routine medroxyPROG 3-0 4- No [id number] 150mg Univers ESTERone 3-21 02-20 ity of (DEPO-PROVE 19:45: 20:44 [place] RA) syringe 00 :00 Medical 150 mg Branch medroxyPROG 3-0 4- No [id number] 150mg Univers ESTERone 3-21 02-20 ity of (DEPO-PROVE 19:45: 20:44 [place] RA) syringe 00 :00 Medical 150 mg Branch medroxyPROG 2023-0 4- No [id number] 150mg Univers ESTERone 3-21 02-20 ity of (DEPO-PROVE 19:45: 20:44 [place] RA) syringe 00 :00 Medical 150 mg Branch medroxyPROG 2023-0 4- No [id number] 150mg Univers ESTERone 3-21 02-20 ity of (DEPO-PROVE 19:45: 20:44 [place] RA) syringe 00 :00 Medical 150 mg Branch medroxyPROG 3-0 4- No [id number] 150mg Univers ESTERone 3-21 02-20 ity of (DEPO-PROVE 19:45: 20:44 [place] RA) syringe 00 :00 Medical 150 mg Branch medroxyPROG 3-0 4- No [id number] 150mg Univers ESTERone 3-21 02-20 ity of (DEPO-PROVE 19:45: 20:44 [place] RA) syringe 00 :00 Medical 150 mg Branch medroxyPROG 3-0 4- No [id number] 150mg Univers ESTERone 3-21 02-20 ity of (DEPO-PROVE 19:45: 20:44 [place] RA) syringe 00 :00 Medical 150 mg Branch medroxyPROG 2023-0 4- No [id number] 150mg Univers ESTERone 3-21 02-20 ity of (DEPO-PROVE 19:45: 20:44 [place] RA) syringe 00 :00 Medical 150 mg Branch medroxyPROG 2023-0 4- No [id number] 150mg Univers ESTERone 3-21 02-20 ity of (DEPO-PROVE 19:45: 20:44 [place] RA) syringe 00 :00 Medical 150 mg Branch medroxyPROG 2023-0 2024- No [id number] 150mg Univers ESTERone 01-31 ity of (DEPO-PROVE 19:45: 20:44 [place] RA) syringe 00 :00 Medical 150 mg Branch medroxyPROG 2023- No [id number] 150mg 150 mg, Univers ESTERone 01-31 Intramuscu ity of (DEPO-PROVE 19:45: 20:44 lar, [place] RA) syringe 00 :00 [id number], Med ical 150 mg 4 doses, Branch First dose on Mon01/31/23 at 1445, Last dose on Mon10/10/23 at 1445, Routine medroxyPROG 2023- No [id number] 150mg Univers ESTERone 01-31 ity of (DEPO-PROVE 19:45: 20:44 [place] RA) syringe 00 :00 Medical 150 mg Branch medroxyPROG 2023- No [id number] 150mg 150 mg, Univers ESTERone 01-31 Intramuscu ity of (DEPO-PROVE 19:45: 20:44 lar, [place] RA) syringe 00 :00 [id number], Med ical 150 mg 4 doses, Branch First dose on Mon01/31/23 at 1445, Last dose on Mon10/10/23 at 1445, Routine medroxyPROG 2023- No [id number] 150mg Univers ESTERone 01-31 ity of (DEPO-PROVE 19:45: 20:44 [place] RA) syringe 00 :00 Medical 150 mg Branch medroxyPROG 2021-11- No [id number] 150mg Univers ESTERone 01-09 ity of (DEPO-PROVE 17:15: 16:20 [place] RA) syringe 00 :00 Medical 150 mg Branch medroxyPROG 2021-11- No [id number] 150mg 150 mg, Univers ESTERone 2-08 11- Intramuscu ity of (DEPO-PROVE 17:15: 16:20 lar, ONCE, [place] RA) syringe 00 :00 1 dose, On Me dical 150 mg e Branch 11/08/22 at 1115, Routine fluconazole 2021- No [id number] 150mg Take 1 Univers (DIFLUCAN) 08-11 tablet by ity of 150 mg 00:00: 04:59 [place] tablet 00 :00 now for 1 Medical dose. [place] fluconazole No [id number] 150mg Take 1 Univers (DIFLUCAN) 08-11 tablet by ity of 150 mg 00:00: 04:59 [place] tablet 00 :00 now for 1 Medical dose. [place] fluconazole No [id number] 150mg Take 1 Univers (DIFLUCAN) 08-11 tablet by ity of 150 mg 00:00: 04:59 [place] tablet 00 :00 now for 1 Medical dose. [place] fluconazole No [id number] 150mg Take 1 Univers (DIFLUCAN) 08-11 tablet by ity of 150 mg 00:00: 04:59 [place] tablet 00 :00 now for 1 Medical dose. [place] fluconazole No [id number] 150mg Take 1 Univers (DIFLUCAN) 08-11 tablet by ity of 150 mg 00:00: 04:59 [place] tablet 00 :00 now for 1 Medical dose. [place] fluconazole No [id number] 150mg Take 1 Univers (DIFLUCAN) 08-11 tablet by ity of 150 mg 00:00: 04:59 [place] tablet 00 :00 now for 1 Medical dose. [place] medroxyPROG No [id number] 150mg Univers ESTERone 08-09 ity of (DEPO-PROVE 17:30: 16:45 [place] RA) syringe 00 :00 Medical 150 mg [place] medroxyPROG 2021- No [id number] 150mg 150 mg, Univers ESTERone 08-09 Intramuscu ity of (DEPO-PROVE 17:30: 16:45 lar, ONCE, [place] RA) syringe 00 :00 1 dose, On Me dical 150 mg Rejie [place] 08/09/22 at 1230, Routine magnesium 2020-11- No Take by [facility] ers oxide 400 11-30 11-18 mouth. ity of mg 11:01: 00:00 Take 1 [place] magnesium 02 :00 tablet by Medic al Tab mouth as Branch needed for leg Cramps once a day magnesium 2020-11 Take by [facility] ers oxide 400 11-30 mouth. ity of mg 11:01: 00:00 Take 1 [place] magnesium 02 :00 tablet by Medic al Tab mouth as Branch needed for leg Cramps once a day medroxyPROG 2020-11 No 150mg 150 mg by [facility] Intramuscu ity of 150 mg/mL 11:00: 00:00 [place] route [place] injection 49 :00 every 3 Medical (three) Branch months. medroxyPROG 2020-11 No 150mg 150 mg by [facility] Intramuscu ity of 150 mg/mL 11:00: 00:00 lar route [place] injection 49 :00 every 3 Medical (three) Branch months. Lamotrigine 2020-11 Yes [id number] 1{tbl} Take 1 Univers 100 mg TbDL 1-18 tablet by ity of 00:00: mouth 2 [place] [address] (two) Medical times Branch daily. Lamotrigine 2020-11 Yes [id number] 1{tbl} Take 1 Univers 100 mg TbDL 1-18 tablet by ity of 00:00: mouth 2 [place] (two) Medical times Branch daily. Lamotrigine 2020-11 Yes [id number] 1{tbl} Take 1 Univers 100 mg TbDL 1-18 tablet by ity of 00:00: mouth 2 [place] (two) Medical times Branch daily. Lamotrigine 2020-11 Yes [id number] 1{tbl} Take 1 Univers 100 mg TbDL 1-18 tablet by ity of 00:00: mouth 2 [place] (two) Medical times Branch daily. Lamotrigine 2020-11 Yes [id number] 1{tbl} Take 1 Univers 100 mg TbDL 1-18 tablet by ity of 00:00: mouth 2 [place] (two) Medical times Branch daily. Lamotrigine 2020-11 Yes [id number] 1{tbl} Take 1 Univers 100 mg TbDL 1-18 tablet by ity of 00:00: mouth 2 [place] (two) Medical times Branch daily. Lamotrigine 2020-11 Yes [id number] 1{tbl} Take 1 Univers 100 mg TbDL 1-18 tablet by ity of 00:00: mouth (two) Medical times Branch daily. Lamotrigine 2020-11 Yes [id number] 1{tbl} Take 1 Univers 100 mg TbDL 1-18 tablet by ity of 00:00: mouth (two) Medical times Branch daily. Lamotrigine 2020-11 Yes [id number] 1{tbl} Take 1 Univers 100 mg TbDL 1-18 tablet by ity of 00:00: mouth (two) Medical times Branch daily. Lamotrigine 2020-11 Yes [id number] 1{tbl} Take 1 Univers 100 mg TbDL 1-18 tablet by ity of 00:00: mouth (two) Medical times Branch daily. Lamotrigine 2020-11 Yes [id number] 1{tbl} Take 1 Univers 100 mg TbDL 1-18 tablet by ity of 00:00: mouth [place] (two) Medical times Branch daily. Lamotrigine 2020-11 Yes [id number] 1{tbl} Take 1 Univers 100 mg TbDL 1-18 tablet by ity of 00:00: mouth [place] (two) Medical times Branch daily. Lamotrigine 2020-11 Yes [id number] 1{tbl} Take 1 Univers 100 mg TbDL 1-18 tablet by ity of 00:00: mouth [place] (two) Medical times Branch daily. Lamotrigine 2020-11 Yes [id number] 1{tbl} Take 1 Univers 100 mg TbDL 1-18 tablet by ity of 00:00: mouth (two) Medical times Branch daily. Lamotrigine 2020-11 Yes [id number] 1{tbl} Take 1 Univers 100 mg TbDL 1-18 tablet by ity of 00:00: mouth (two) Medical times Branch daily. Lamotrigine 2020-11 Yes [id number] 1{tbl} Take 1 Univers 100 mg TbDL 1-18 tablet by ity of 00:00: mouth (two) Medical times Branch daily. Lamotrigine 2020-11 Yes [id number] 1{tbl} Take 1 Univers 100 mg TbDL 1-18 tablet by ity of 00:00: mouth (two) Medical times Branch daily. Lamotrigine 2020-11 Yes [id number] 1{tbl} Take 1 Univers 100 mg TbDL 1-18 tablet by ity of 00:00: mouth (two) Medical times Branch daily. Lamotrigine 2020-11 Yes [id number] 1{tbl} Take 1 Univers 100 mg TbDL 1-18 tablet by ity of 00:00: mouth (two) Medical times Branch daily. Lamotrigine 2020-11 Yes [id number] 1{tbl} Take 1 Univers 100 mg TbDL 1-18 tablet by ity of 00:00: mouth (two) Medical times Branch daily. Lamotrigine 2020-11 Yes [id number] 1{tbl} Take 1 Univers 100 mg TbDL 1-18 tablet by ity of 00:00: mouth [place] (two) Medical times Branch daily. Lamotrigine 2020-11 Yes [id number] 1{tbl} Take 1 Univers 100 mg TbDL 1-18 tablet by ity of 00:00: mouth (two) Medical times Branch daily. Lamotrigine 2020-11 Yes [id number] 1{tbl} Take 1 Univers 100 mg TbDL 1-18 tablet by ity of 00:00: mouth (two) Medical times Branch daily. Lamotrigine 2020-11 Yes [id number] 1{tbl} Take 1 Univers 100 mg TbDL 1-18 tablet by ity of 00:00: mouth (two) Medical times Branch daily. Lamotrigine 2020-11 Yes [id number] 1{tbl} Take 1 Univers 100 mg TbDL 1-18 tablet by ity of 00:00: mouth (two) Medical times Branch daily. Lamotrigine 2020-11 Yes [id number] 1{tbl} Take 1 Univers 100 mg TbDL 1-18 tablet by ity of 00:00: mouth [place] (two) Medical times Branch daily. Lamotrigine 2020-11 Yes [id number] 1{tbl} Take 1 Univers 100 mg TbDL 1-18 tablet by ity of 00:00: mouth 2 [place] (two) Medical times Branch daily. Lamotrigine 2020-11 Yes [id number] 1{tbl} Take 1 [facility] 100 mg TbDL 1-18 tablet by ity of 00:00: mouth 2 [place] (two) Medical times Branch daily. Lamotrigine 2020-11 Yes [id number] 1{tbl} Take 1 [facility] 100 mg TbDL 1-18 tablet by ity of 00:00: mouth 2 [place] (two) Medical times Branch daily. Lamotrigine 2020-11 Yes [id number] 1{tbl} Take 1 [facility] 100 mg TbDL 1-18 tablet by ity of 00:00: mouth 2 [place] (two) Medical times Branch daily. Lamotrigine 2020-11 Yes [id number] 1{tbl} Take 1 [facility] 100 mg TbDL 1-18 tablet by ity of 00:00: mouth 2 [place] (two) Medical times Branch daily. Lamotrigine 2020-11 Yes [id number] 1{tbl} Take 1 [facility] 100 mg TbDL 1-18 tablet by ity of 00:00: mouth 2 [place] (two) Medical times Branch daily. Lamotrigine 2020-11 Yes [id number] 1{tbl} Take 1 [facility] 100 mg TbDL 1-18 tablet by ity of 00:00: mouth 2 [place] (two) Medical times Branch daily. Lamotrigine 2020-11 Yes [id number] 1{tbl} Take 1 [facility] 100 mg TbDL 1-18 tablet by ity of 00:00: mouth 2 [place] (two) Medical times Branch daily. medroxyPROG 2020-11- No [id number] 150mg Univers ESTERone 0-18 -19 ity of (DEPO-PROVE 14:15: 14:14 [place] ) 00 :00 Medical injection Branch 150 mg medroxyPROG 2020-11- No [id number] 150mg Univers ESTERone 0-18 -19 ity of (DEPO-PROVE 14:15: 14:14 [place] ) 00 :00 Medical injection Branch 150 mg medroxyPROG 2020-11- No [id number] 150mg Univers ESTERone 0-18 08-01 ity of (DEPO-PROVE 14:15: 14:14 [place] RA) 00 :00 Medical injection Branch 150 mg medroxyPROG 2020-11- No [id number] 150mg Univers ESTERone 0-18 08-01 ity of (DEPO-PROVE 14:15: 14:14 [place] RA) 00 :00 Medical injection Branch 150 mg medroxyPROG 2020-11- No [id number] 150mg 150 mg, Univers ESTERone 0-18 08-01 Intramuscu ity of (DEPO-PROVE 14:15: 14:14 lar, [place] RA) 00 :00 [id number], Medical injection 4 doses, Branch 150 mg First dose on Mon08/30/21 at 0915, Last dose on Mon05/09/22 at 0915, Routine medroxyPROG 2020-11- No [id number] 150mg 150 mg, Univers ESTERone 0-18 07-05 Intramuscu ity of (DEPO-PROVE 14:15: 14:26 [place], [place] RA) 00 :00 [id number], Medical injection 4 doses, Branch 150 mg First dose on Mon08/30/21 at 0915, Last dose on Mon05/09/22 at 0915, Routine albuterol 2020-11 Yes [id number] INHALE 1 Univers (PROAIR 0-18 TO 2 PUFFS ity of HFA) 90 00:00: BY MOUTH [place] mcg/actuati 00 EVERY 4 TO Me dical on inhaler 6 HOURS Bra pah NEEDED albuterol 2020-11 Yes [id number] INHALE 1 Univers (PROAIR 0-18 TO 2 PUFFS ity of HFA) 90 00:00: BY MOUTH [place] mcg/actuati 00 EVERY 4 TO Me dical on inhaler 6 HOURS Bra nch NEEDED albuterol 2020-11 Yes [id number] INHALE 1 Univers (PROAIR 0-18 TO 2 PUFFS ity of HFA) 90 00:00: BY MOUTH [place] mcg/actuati 00 EVERY 4 TO Me dical on inhaler 6 HOURS Bra nch NEEDED albuterol 2020-11 Yes [id number] INHALE 1 Univers (PROAIR 0-18 TO 2 PUFFS ity of HFA) 90 00:00: BY MOUTH [place] mcg/actuati 00 EVERY 4 TO Me dical on inhaler 6 HOURS Bra nch NEEDED albuterol 2020-11 Yes [id number] INHALE 1 Univers (PROAIR 0-18 TO 2 PUFFS ity of HFA) 90 00:00: BY MOUTH [place] mcg/actuati 00 EVERY 4 TO Me dical on inhaler 6 HOURS Bra nch NEEDED albuterol 2020-11 Yes [id number] INHALE 1 Univers (PROAIR 0-18 TO 2 PUFFS ity of HFA) 90 00:00: BY MOUTH [place] mcg/actuati 00 EVERY 4 TO Me dical on inhaler 6 HOURS Bra nch NEEDED albuterol 2020-11 Yes [id number] INHALE 1 Univers (PROAIR 0-18 TO 2 PUFFS ity of HFA) 90 00:00: BY MOUTH [place] mcg/actuati 00 EVERY 4 TO Me dical on inhaler 6 HOURS Bra nch NEEDED albuterol 2020-11 Yes [id number] INHALE 1 Univers (PROAIR 0-18 TO 2 PUFFS ity of HFA) 90 00:00: BY MOUTH [place] mcg/actuati 00 EVERY 4 TO Me dical on inhaler 6 HOURS Bra nch NEEDED albuterol 2020-11 Yes [id number] INHALE 1 Univers (PROAIR 0-18 TO 2 PUFFS ity of HFA) 90 00:00: BY MOUTH [place] mcg/actuati 00 EVERY 4 TO Me dical on inhaler 6 HOURS Bra nch NEEDED albuterol 2020-11 Yes [id number] INHALE 1 Univers (PROAIR 0-18 TO 2 PUFFS ity of HFA) 90 00:00: BY MOUTH [place] mcg/actuati 00 EVERY 4 TO Me dical on inhaler 6 HOURS Bra nch NEEDED albuterol 2020-11 Yes [id number] INHALE 1 Univers (PROAIR 0-18 TO 2 PUFFS ity of HFA) 90 00:00: BY MOUTH [place] mcg/actuati 00 EVERY 4 TO Me dical on inhaler 6 HOURS Bra nch NEEDED albuterol 2020-11 Yes [id number] INHALE 1 Univers (PROAIR 0-18 TO 2 PUFFS ity of HFA) 90 00:00: BY MOUTH [place] mcg/actuati 00 EVERY 4 TO Me dical on inhaler 6 HOURS Bra nch NEEDED albuterol 2020-11 Yes [id number] INHALE 1 Univers (PROAIR 0-18 TO 2 PUFFS ity of HFA) 90 00:00: BY MOUTH [place] mcg/actuati 00 EVERY 4 TO Me dical on inhaler 6 HOURS Bra nch NEEDED albuterol 2020-11 Yes [id number] INHALE 1 Univers (PROAIR 0-18 TO 2 PUFFS ity of HFA) 90 00:00: BY MOUTH [place] mcg/actuati 00 EVERY 4 TO Me dical on inhaler 6 HOURS Bra nch NEEDED albuterol 2020-11 Yes [id number] INHALE 1 Univers (PROAIR 0-18 TO 2 PUFFS ity of HFA) 90 00:00: BY MOUTH [place] mcg/actuati 00 EVERY 4 TO Me dical on inhaler 6 HOURS Bra nch NEEDED albuterol 2020-11 Yes [id number] INHALE 1 Univers (PROAIR 0-18 TO 2 PUFFS ity of HFA) 90 00:00: BY MOUTH [place] mcg/actuati 00 EVERY 4 TO Me dical on inhaler 6 HOURS Bra nch NEEDED albuterol 2020-11 Yes [id number] INHALE 1 Univers (PROAIR 0-18 TO 2 PUFFS ity of HFA) 90 00:00: BY MOUTH [place] mcg/actuati 00 EVERY 4 TO Me dical on inhaler 6 HOURS Bra nch NEEDED albuterol 2020-11 Yes [id number] INHALE 1 Univers (PROAIR 0-18 TO 2 PUFFS ity of HFA) 90 00:00: BY MOUTH [place] mcg/actuati 00 EVERY 4 TO Me dical on inhaler 6 HOURS Bra nch NEEDED albuterol 2020-11 Yes [id number] INHALE 1 Univers (PROAIR 0-18 TO 2 PUFFS ity of HFA) 90 00:00: BY MOUTH [place] mcg/actuati 00 EVERY 4 TO Me dical on inhaler 6 HOURS Bra nch NEEDED albuterol 2020-11 Yes [id number] INHALE 1 Univers (PROAIR 0-18 TO 2 PUFFS ity of HFA) 90 00:00: BY MOUTH [place] mcg/actuati 00 EVERY 4 TO Me dical on inhaler 6 HOURS Bra nch NEEDED albuterol 2020-11 Yes [id number] INHALE 1 Univers (PROAIR 0-18 TO 2 PUFFS ity of HFA) 90 00:00: BY MOUTH [place] mcg/actuati 00 EVERY 4 TO Me dical on inhaler 6 HOURS Bra nch NEEDED albuterol 2020-11 Yes [id number] INHALE 1 Univers (PROAIR 0-18 TO 2 PUFFS ity of HFA) 90 00:00: BY MOUTH [place] mcg/actuati 00 EVERY 4 TO Me dical on inhaler 6 HOURS Bra nch NEEDED albuterol 2020-11 Yes [id number] INHALE 1 Univers (PROAIR 0-18 TO 2 PUFFS ity of HFA) 90 00:00: BY MOUTH [place] mcg/actuati 00 EVERY 4 TO Me dical on inhaler 6 HOURS Bra nch NEEDED albuterol 2020-11 Yes [id number] INHALE 1 Univers (PROAIR 0-18 TO 2 PUFFS ity of HFA) 90 00:00: BY MOUTH [place] mcg/actuati 00 EVERY 4 TO Me dical on inhaler 6 HOURS Bra nch NEEDED albuterol 2020-11 Yes [id number] INHALE 1 Univers (PROAIR 0-18 TO 2 PUFFS ity of HFA) 90 00:00: BY MOUTH [place] mcg/actuati 00 EVERY 4 TO Me dical on inhaler 6 HOURS Bra nch NEEDED albuterol 2020-11 Yes [id number] INHALE 1 Univers (PROAIR 0-18 TO 2 PUFFS ity of HFA) 90 00:00: BY MOUTH [place] mcg/actuati 00 EVERY 4 TO Me dical on inhaler 6 HOURS Bra nch NEEDED albuterol 2020-11 Yes [id number] INHALE 1 Univers (PROAIR 0-18 TO 2 PUFFS ity of HFA) 90 00:00: BY MOUTH [place] mcg/actuati 00 EVERY 4 TO Me dical on inhaler 6 HOURS Bra nch NEEDED albuterol 2020-11 Yes [id number] INHALE 1 Univers (PROAIR 0-18 TO 2 PUFFS ity of HFA) 90 00:00: BY MOUTH [place] mcg/actuati 00 EVERY 4 TO Me dical on inhaler 6 HOURS Bra nch NEEDED albuterol 2020-11 Yes [id number] INHALE 1 Univers (PROAIR 0-18 TO 2 PUFFS ity of HFA) 90 00:00: BY MOUTH [place] mcg/actuati 00 EVERY 4 TO Me dical on inhaler 6 HOURS Bra [facility] NEEDED albuterol 2020-11 Yes [id number] INHALE 1 Univers (PROAIR 0-18 TO 2 PUFFS ity of HFA) 90 00:00: BY MOUTH [place] mcg/actuati 00 EVERY 4 TO Me dical on inhaler 6 HOURS Bra [facility] NEEDED albuterol 2020-11 Yes [id number] INHALE 1 Univers (PROAIR 0-18 TO 2 PUFFS ity of HFA) 90 00:00: BY MOUTH [place] mcg/actuati 00 EVERY 4 TO Me dical on inhaler 6 HOURS Bra nch NEEDED albuterol 2020-11 Yes [id number] INHALE 1 Univers (PROAIR 0-18 TO 2 PUFFS ity of HFA) 90 00:00: BY MOUTH [place] mcg/actuati 00 EVERY 4 TO Me dical on inhaler 6 HOURS Bra [facility] NEEDED albuterol 2020-11 Yes [id number] INHALE 1 Univers (PROAIR 0-18 TO 2 PUFFS ity of HFA) 90 00:00: BY MOUTH [place] mcg/actuati 00 EVERY 4 TO Me dical on inhaler 6 HOURS Bra [facility] NEEDED albuterol 2020-11 Yes [id number] INHALE 1 Univers (PROAIR 0-18 TO 2 PUFFS ity of HFA) 90 00:00: BY MOUTH [place] mcg/actuati 00 EVERY 4 TO Me dical on inhaler 6 HOURS Bra [facility] NEEDED Lamotrigine 2020- No Take by Un [place] 100 mg TbDL 5-17 05-17 mouth 2 ity of 11:16: 00:00 (two) [place] 59 :00 times Medical daily. Branch busPIRone 2020- No [id number] 7.5mg Take 0.5-1 Univers 15 mg 5-17 11-18 tablets by ity of tablet 00:00: 00:00 mouth 2 [place] 00 :00 (two) Medical times Branch daily. escitalopra 2020- No [id number] 20mg Take 1 Univers m oxalate 5-17 11-18 tablet by ity of 20 mg 00:00: 00:00 mouth [place] tablet 00 :00 daily. Medical Branch Lamotrigine 2020- No [id number] 1{tbl} Take 1 [facility] 100 mg TbDL 5-17 10-25 tablet by it y of 00:00: 00:00 mouth 2 [place] 00 :00 (two) Medical times Branch daily. ondansetron 2020- No [id number] 4mg Take 1 [facility] 4 mg 3-29 11-18 tablet by ity of disintegrat 00:00: 00:00 [place] tablet 00 :00 every 8 Medica l (eight) Branch hours as needed for Nausea and Vomiting (N/V). ondansetron 2020- No [id number] 4mg Take 1 [facility] 4 mg 3-29 11-18 tablet by ity of disintegrat 00:00: 00:00 [place] tablet 00 :00 every 8 Medica l (eight) Branch hours as needed for Nausea and Vomiting (N/V). pyridoxine, 2020- No [id number] 50mg Take 1 Univers VITAMIN 1-27 11-18 tablet by ity of B-6, 50 mg 00:00: 00:00 mouth [place] tablet 00 :00 daily. Medical Branch Cholecalcif 2020- No [id number] 1999U Take 1 Univers fredy, 1-27 11-18 capsule by ity of Vitamin D3, 00:00: 00:00 [place] (D3-1999[place] 00 :00 daily. Medical 50 mcg Take with Branch (2,000 food. unit) capsule pyridoxine, 2020- No [id number] 50mg Take 1 Univers VITAMIN 1-27 11-18 tablet by ity of B-6, 50 mg 00:00: 00:00 mouth [place] tablet 00 :00 daily. Medical Branch Cholecalcif 2020- No [id number] 1999U Take 1 Univers fredy, 1-27 11-18 capsule by ity of Vitamin D3, 00:00: 00:00 [place] (D3-1999[place] 00 :00 daily. Medical 50 mcg Take with Branch (2,000 food. unit) capsule pramipexole 2020- No [id number] .125mg Take 1 [facility] (MIRAPEX) 12-04-18 tablet by ity of 0.125 mg 00:00: 00:00 [place] tablet 00 :00 bedtime. Medical Branch pramipexole 2020- No [id number] .125mg Take 1 [facility] (MIRAPEX) 12-04-18 tablet by ity of 0.125 mg 00:00: 00:00 [place] tablet 00 :00 bedtime. Medical Branch busPIRone 2020- No [id number] 7.5mg Take 0.5-1 Univers 15 mg 12-0417 tablets by ity of tablet 00:00: 00:00 mouth 2 [place] 00 :00 (two) Medical times Branch daily. escitalopra 2019-11- No Dyan escobar m oxalate 12-27-17 ity of 20 mg 00:00: 00:00 [place] tablet 00 :00 Medical Branch Xulane Xulane 2019-11 No Xulane 150-35 150-35 [...] Xulane Xulane 2019-11 No Xulane 150-35 150-35 0-20 150-35 MCG/24HR MCG/24HR 00:00: MCG/24HR 00 Xulane Xulane 2019-1 No Xulane 150-35 150-35 0-20 150-35 MCG/24HR MCG/24HR 00:00: MCG/24HR 00 Pippa Das 2019-1 No Xulane 150-35 150-35 0-20 150-35 MCG/24HR MCG/24HR 00:00: MCG/24HR 00 Pippa Das 2019-1 No Xulane 150-35 150-35 0-20 150-35 MCG/24HR MCG/24HR 00:00: MCG/24HR 00 Pippa Das 2019-1 No Xulane 150-35 150-35 0-20 150-35 MCG/24HR MCG/24HR 00:00: MCG/24HR 00 Pippa Das 2019-1 No Xulane 150-35 150-35 0-20 150-35 MCG/24HR MCG/24HR 00:00: MCG/24HR 00 Pippa Das 2019- No [place] 150-35 150-35 0-20 150-35 MCG/24HR MCG/24HR 00:00: MCG/24HR 00 Benzonatate Benzonatate 2019-0 2020- No 1{capsu Benzonatat 100 MG 100 MG 08-1230 le_as_n e 100 MG 00:00: 00:00 eeded} 00 :00 Benzonatate Benzonatate 2020-0 2020- No 1{capsu Benzonatat 100 MG 100 MG 08-12-30 le_as_n e 100 MG 00:00: 00:00 eeded} 00 :00 Benzonatate Benzonatate 2019-0 2020- No 1{capsu Benzonatat 100 MG 100 MG 30 -30 le_as_n e 100 MG 00:00: 00:00 eeded} 00 :00 Benzonatate Benzonatate 2020-0 2020- No 1{capsu Benzonatat 100 MG 100 MG -30 -30 le_as_n e 100 MG 00:00: 00:00 eeded} 00 :00 Azithromyci Azithromyci 2019-0 2020- No QD Azithromyc n 250 MG n 250 MG 08-12 10-05 in 250 MG 00:00: 00:00 00 :00 Azithromyci Azithromyci 2019- 2020- No QD Azithromyc n 250 MG n 250 MG 9-30 10-05 in 250 MG 00:00: 00:00 00 :00 PROAIR HFA 2020- No INHALE 1 Un [...] HOURS Branch NEEDED FOR COUGH Magnesium Magnesium 2019-2019- No Na Bates 1 tablet Common Oxide Oxide 9-10 10-10 as needed Spirit 00:00: 00:00 for leg - [facility] 00 :00 cramps [facility] Magnesium Magnesium 2019-0 2019- No QD Magnesium Oxide 400 Oxide 400 9-10 10-10 Oxide 400 MG MG 00:00: 00:00 MG 00 :00 Magnesium Magnesium 2019-0 2020- No QD Magnesium Oxide 400 Oxide 400 9-10 10-10 Oxide 400 MG MG 00:00: 00:00 MG 00 :00 Clonazepam Clonazepam 2018-11 Yes Na Bates 1 tablet Common 2-16 on the Spirit 00:00: tongue and - [facility] 00 allow to [facility] as needed Medical for acute Center panic [...] 0.5 MG 2-16 0.5 MG 00:00: 00 [place] HARRISON2020- No 1{tbl} Take 1 U nivers 3-0.02 mg 1-12 11-18 tablet by ity of per tablet 00:00: 00:00 mouth [place] 00 :00 daily. Medical Branch HUNTER 2020- No 1{tbl} Take 1 U nivers 3-0.02 mg 1-12 11-18 tablet by ity of per tablet 00:00: 00:00 mouth [place] 00 :00 daily. Medical Branch Afinitor 5 Afinitor 5 Yes ALFREDO TAKE [...] Yes Na Bates 1 tablet Comm on [facility] Cetirizine Cetirizine Yes Na Bates take 1 Common HCl HCl tablet by [facility] mouth - [facility]I every day as needed [facility] for Medical allergies Center Lamictal Lamictal Yes Na Bates 1 tablet Common [facility] Ondansetron Ondansetron Yes Na Bates as Common HCl HCl directed [facility] Lexapro Lexapro Yes Na Bates 1 tablet Co mmon [facility] Quetiapine Quetiapine Yes Na Bates TAKE 1 Common Fumarate Fumarate TABLET BY Sp escobar MOUTH AT - CHI BEDTIME [facility] Afinitor Afinitor Yes Na Bates 1 tablet Common [facility] Pantoprazol Pantoprazol Yes Na Bates 1 tablet Common e Sodium e Sodium [facility] Afinitor 5 Afinitor 5 No 1{table [...] Immunizations Ordered Filled Immunization Date Status Comments [facility] e Immunization Name Name HPV9 2023-04-25 Completed University of 00:00:00 [facility] HPV9 2023-04-25 Completed University of 00:00:00 [facility] Influenza Virus 2023-01-31 Completed Universit y of Vaccine Quad IM, 00:00:00 [facility] dical Preserv and ABX Branch Free 6 MO-64 YRS HPV9 2023-01-31 Completed University of 00:00:00 [facility] Influenza Virus 2023-01-31 Completed Universit y of Vaccine Quad IM, 00:00:00 [facility] dical Preserv and ABX Branch Free 6 MO-64 YRS HPV9 2023-01-31 Completed University of 00:00:00 [facility] Influenza Virus 2023-01-31 Completed Universit y of Vaccine Quad IM, 00:00:00 [facility] dical Preserv and ABX Branch Free 6 MO-64 YRS HPV9 2023-01-31 Completed University of 00:00:00 [facility] Influenza Virus 2023-01-31 Completed Universit y of Vaccine Quad IM, 00:00:00 [place] Me dical Preserv and ABX Branch Free 6 MO-64 YRS HPV9 2023-01-31 Completed University of 00:00:00 [facility] Influenza Virus 2023-01-31 Completed Universit y of Vaccine Quad IM, 00:00:00 [place] Me dical Preserv and ABX Branch Free 6 MO-64 YRS HPV9 2023-01-31 Completed University of 00:00:00 [facility] Influenza Virus 2023-01-31 Completed Universit y of Vaccine Quad IM, 00:00:00 [place] Me dical Preserv and ABX Branch Free 6 MO-64 YRS HPV9 2023-01-31 Completed University of 00:00:00 [facility] Influenza Virus 2023-01-31 Completed Universit y of Vaccine Quad IM, 00:00:00 [facility] dical Preserv and ABX Branch Free 6 MO-64 YRS HPV9 2023-01-31 Completed University of 00:00:00 [facility] Influenza Virus 2023-01-31 Completed Universit y of Vaccine Quad IM, 00:00:00 [facility] dical Preserv and ABX Branch Free 6 MO-64 YRS HPV9 2023-01-31 Completed University of 00:00:00 [facility] Influenza Virus 2023-01-31 Completed Universit y of Vaccine Quad IM, 00:00:00 [place] Me dical Preserv and ABX Branch Free 6 MO-64 YRS HPV9 2023-01-31 Completed University of 00:00:00 [facility] Influenza Virus 2023-01-31 Completed Universit y of Vaccine Quad IM, 00:00:00 [facility] dical Preserv and ABX Branch Free 6 MO-64 YRS HPV9 2023-01-31 Completed University of 00:00:00 [facility] Influenza Virus 2023-01-31 Completed Universit y of Vaccine Quad IM, 00:00:00 [place] Me dical Preserv and ABX Branch Free 6 MO-64 YRS HPV9 2023-01-31 Completed University of 00:00:00 [facility] Influenza Virus 2023-01-31 Completed Universit y of Vaccine Quad IM, 00:00:00 [place] Me dical Preserv and ABX Branch Free 6 MO-64 YRS HPV9 2023-01-31 Completed University of 00:00:00 [place] [facility] Influenza Virus 2023-01-31 Completed Universit y of Vaccine Quad IM, 00:00:00 [place] Me dical Preserv and ABX Branch Free 6 MO-64 YRS HPV9 2023-01-31 Completed University 00:00:00 [facility] Influenza Virus 2023-01-31 Completed Universit y of Vaccine Quad IM, 00:00:00 [place] Me dical Preserv and ABX Branch Free 6 MO-64 YRS HPV9 2023-01-31 Completed University 00:00:00 [facility] SARS-COV-2 COVID-19 2021-11-17 Completed Unive rsity of PFIZER VACCINE 00:00:00 [facility] SARS-COV-2 COVID-19 2021-11-17 Completed Unive rsity of PFIZER VACCINE 00:00:00 [facility] SARS-COV-2 COVID-19 2021-11-17 Completed Unive rsity of PFIZER VACCINE 00:00:00 [facility] SARS-COV-2 COVID-19 2021-11-17 Completed Unive rsity of PFIZER VACCINE 00:00:00 [facility] SARS-COV-2 COVID-19 2021-11-17 Completed Unive rsity of PFIZER VACCINE 00:00:00 [facility] SARS-COV-2 COVID-19 2021-11-17 Completed Unive rsity of PFIZER VACCINE 00:00:00 [facility] SARS-COV-2 COVID-19 2021-11-17 Completed Unive rsity of PFIZER VACCINE 00:00:00 [facility] SARS-COV-2 COVID-19 2021-11-17 Completed Unive rsity of PFIZER VACCINE 00:00:00 [facility] SARS-COV-2 COVID-19 2021-11-17 Completed Unive rsity of PFIZER VACCINE 00:00:00 [facility] SARS-COV-2 COVID-19 2021-11-17 Completed Unive rsity of PFIZER VACCINE 00:00:00 [facility] SARS-COV-2 COVID-19 2021-11-17 Completed Unive rsity of PFIZER VACCINE 00:00:00 [facility] SARS-COV-2 COVID-19 2021-11-17 Completed Unive rsity of PFIZER VACCINE 00:00:00 [facility] SARS-COV-2 COVID-19 2021-11-17 Completed Unive rsity of PFIZER VACCINE 00:00:00 [facility] SARS-COV-2 COVID-19 2021-11-17 Completed Unive rsity of PFIZER VACCINE 00:00:00 [facility] Influenza Virus 2021-08-30 Completed Universit y of Vaccine Quad IM, 00:00:00 [place] Me dical Preserv and ABX Branch Free [...] Universit y of Vaccine Quad IM, 00:00:00 [place] Me dical Preserv and ABX Branch Free 6 MO-64 YRS Influenza Virus 2021-08-30 Completed Universit y of Vaccine Quad IM, 00:00:00 [place] Me dical Preserv and ABX Branch Free 6 MO-64 YRS Influenza Virus 2021-08-30 Completed Universit y of Vaccine Quad IM, 00:00:00 [place] Me dical Preserv and ABX Branch Free 6 MO-64 YRS Influenza Virus 2021-08-30 Completed Universit y of Vaccine Quad IM, 00:00:00 [place] Me dical Preserv and ABX Branch Free 6 MO-64 YRS Influenza Virus 2021-08-30 Completed Universit y of Vaccine Quad IM, 00:00:00 [place] Me dical Preserv and ABX Branch Free [...] Universit y of Vaccine Quad IM, 00:00:00 [place] Me dical Preserv and ABX Branch Free 6 MO-64 YRS SARS-COV-2 COVID-19 2021-02-23 Completed Unive rsity of PFIZER VACCINE 00:00:00 [facility] SARS-COV-2 COVID-19 2021-02-23 Completed Unive rsity of PFIZER VACCINE 00:00:00 [facility] SARS-COV-2 COVID-19 2021-02-23 Completed Unive rsity of PFIZER VACCINE 00:00:00 [facility] SARS-COV-2 COVID-19 2021-02-23 Completed Unive rsity of PFIZER VACCINE 00:00:00 [facility] SARS-COV-2 COVID-19 2021-02-23 Completed Unive rsity of PFIZER VACCINE 00:00:00 [facility] Branch SARS-COV-2 COVID-19 2021-02-23 Completed Unive rsity of PFIZER VACCINE 00:00:00 [place] [facility] Branch SARS-COV-2 COVID-19 2021-02-23 Completed Unive rsity of PFIZER VACCINE 00:00:00 [facility] Branch SARS-COV-2 COVID-19 2021-02-23 Completed Unive rsity of PFIZER VACCINE 00:00:00 [facility] Branch SARS-COV-2 COVID-19 2021-02-23 Completed Unive rsity of PFIZER VACCINE 00:00:00 [facility] Branch SARS-COV-2 COVID-19 2021-02-23 Completed Unive rsity of PFIZER VACCINE 00:00:00 [facility] Branch SARS-COV-2 COVID-19 2021-02-23 Completed Unive rsity of PFIZER VACCINE 00:00:00 [facility] Branch SARS-COV-2 COVID-19 2021-02-23 Completed Unive rsity of PFIZER VACCINE 00:00:00 [facility] Branch SARS-COV-2 COVID-19 2021-02-23 Completed Unive rsity of PFIZER VACCINE 00:00:00 [facility] Branch SARS-COV-2 COVID-19 2021-02-23 Completed Unive rsity of PFIZER VACCINE 00:00:00 [facility] Branch SARS-COV-2 COVID-19 2021-02-23 Completed Unive rsity of PFIZER VACCINE 00:00:00 [facility] Branch SARS-COV-2 COVID-19 2021-02-23 Completed Unive rsity of PFIZER VACCINE 00:00:00 [facility] Branch SARS-COV-2 COVID-19 2021-02-23 Completed Unive rsity of PFIZER VACCINE 00:00:00 [facility] Branch SARS-COV-2 COVID-19 2021-02-23 Completed Unive rsity of PFIZER VACCINE 00:00:00 [facility] Branch SARS-COV-2 COVID-19 2021-02-23 Completed Unive rsity of PFIZER VACCINE 00:00:00 [facility] Branch SARS-COV-2 COVID-19 2021-02-23 Completed Unive rsity of PFIZER VACCINE 00:00:00 [facility] Branch SARS-COV-2 COVID-19 2021-02-23 Completed Unive rsity of PFIZER VACCINE 00:00:00 [facility] Branch SARS-COV-2 COVID-19 2021-02-23 Completed Unive rsity of PFIZER VACCINE 00:00:00 [facility] Branch SARS-COV-2 COVID-19 2021-02-23 Completed Unive rsity of PFIZER VACCINE 00:00:00 [facility] Branch SARS-COV-2 COVID-19 2021-02-23 Completed Unive rsity of PFIZER VACCINE 00:00:00 [facility] Branch SARS-COV-2 COVID-19 2021-02-23 Completed Unive rsity of PFIZER VACCINE 00:00:00 [facility] Branch SARS-COV-2 COVID-19 2021-02-23 Completed Unive rsity of PFIZER VACCINE 00:00:00 [facility] Branch SARS-COV-2 COVID-19 2021-02-23 Completed Unive rsity of PFIZER VACCINE 00:00:00 [facility] Branch SARS-COV-2 COVID-19 2021-02-23 Completed Unive rsity of PFIZER VACCINE 00:00:00 [facility] Branch SARS-COV-2 COVID-19 2021-02-23 Completed Unive rsity of PFIZER VACCINE 00:00:00 [facility] Branch SARS-COV-2 COVID-19 2021-02-23 Completed Unive rsity of PFIZER VACCINE 00:00:00 [facility] SARS-COV-2 COVID-19 2021-02-23 Completed Unive rsity of PFIZER VACCINE 00:00:00 [facility] SARS-COV-2 COVID-19 2021-02-23 Completed Unive rsity of PFIZER VACCINE 00:00:00 [facility] SARS-COV-2 COVID-19 2021-02-23 Completed Unive rsity of PFIZER VACCINE 00:00:00 [facility] SARS-COV-2 COVID-19 2021-02-23 Completed Unive rsity of PFIZER VACCINE 00:00:00 [facility] SARS-COV-2 COVID-19 2021-02-23 Completed Unive rsity of PFIZER VACCINE 00:00:00 [facility] SARS-COV-2 COVID-19 2021-02-23 Completed Unive rsity of PFIZER VACCINE 00:00:00 [facility] SARS-COV-2 COVID-19 2021-02-02 Completed Unive rsity of PFIZER VACCINE 00:00:00 [facility] SARS-COV-2 COVID-19 2021-02-02 Completed Unive rsity of PFIZER VACCINE 00:00:00 [facility] SARS-COV-2 COVID-19 2021-02-02 Completed Unive rsity of PFIZER VACCINE 00:00:00 [facility] SARS-COV-2 COVID-19 2021-02-02 Completed Unive rsity of PFIZER VACCINE 00:00:00 [facility] SARS-COV-2 COVID-19 2021-02-02 Completed Unive rsity of PFIZER VACCINE 00:00:00 [facility] SARS-COV-2 COVID-19 2021-02-02 Completed Unive rsity of PFIZER VACCINE 00:00:00 [facility] SARS-COV-2 COVID-19 2021-02-02 Completed [facility]ive rsity of PFIZER VACCINE 00:00:00 [facility] SARS-COV-2 COVID-19 2021-02-02 Completed Unive rsity of PFIZER VACCINE 00:00:00 [facility] SARS-COV-2 COVID-19 2021-02-02 Completed Unive rsity of PFIZER VACCINE 00:00:00 [facility] SARS-COV-2 COVID-19 2021-02-02 Completed Unive rsity of PFIZER VACCINE 00:00:00 [facility] SARS-COV-2 COVID-19 2021-02-02 Completed [facility]ive [facility]ity of PFIZER VACCINE 00:00:00 [facility] SARS-COV-2 COVID-19 2021-02-02 Completed [facility] of PFIZER VACCINE 00:00:00 [facility] SARS-COV-2 COVID-19 2021-02-02 Completed [facility]ive rsity of PFIZER VACCINE 00:00:00 [facility] SARS-COV-2 COVID-19 2021-02-02 Completed [facility]ive [facility]ity of PFIZER VACCINE 00:00:00 [facility] SARS-COV-2 COVID-19 2021-02-02 Completed [facility]ive [facility]ity of PFIZER VACCINE 00:00:00 [facility] SARS-COV-2 COVID-19 2021-02-02 Completed [facility] of PFIZER VACCINE 00:00:00 [facility] SARS-COV-2 COVID-19 2021-02-02 Completed [facility] of PFIZER VACCINE 00:00:00 [facility] SARS-COV-2 COVID-19 2021-02-02 Completed [facility] of PFIZER VACCINE 00:00:00 [facility] SARS-COV-2 COVID-19 2021-02-02 Completed [facility] of PFIZER VACCINE 00:00:00 [facility] SARS-COV-2 COVID-19 2021-02-02 Completed [facility] of PFIZER VACCINE 00:00:00 [facility] SARS-COV-2 COVID-19 2021-02-02 Completed [facility] of PFIZER VACCINE 00:00:00 [facility] SARS-COV-2 COVID-19 2021-02-02 Completed [facility] of PFIZER VACCINE 00:00:00 [facility] SARS-COV-2 COVID-19 2021-02-02 Completed [facility]ive [facility] of PFIZER VACCINE 00:00:00 [facility] SARS-COV-2 COVID-19 2021-02-02 Completed [facility]ive [facility]ity of PFIZER VACCINE 00:00:00 [facility] SARS-COV-2 COVID-19 2021-02-02 Completed [facility] of PFIZER VACCINE 00:00:00 [facility] SARS-COV-2 COVID-19 2021-02-02 Completed [facility] of PFIZER VACCINE 00:00:00 [facility] SARS-COV-2 COVID-19 2021-02-02 Completed [facility]ive [facility] of PFIZER VACCINE 00:00:00 [facility] SARS-COV-2 COVID-19 2021-02-02 Completed [facility] of PFIZER VACCINE 00:00:00 [facility] SARS-COV-2 COVID-19 2021-02-02 Completed [facility]ive [facility] of PFIZER VACCINE 00:00:00 [facility] SARS-COV-2 COVID-19 2021-02-02 Completed [facility]ive [facility] of PFIZER VACCINE 00:00:00 [facility] SARS-COV-2 COVID-19 2021-02-02 Completed [facility] of PFIZER VACCINE 00:00:00 [facility] SARS-COV-2 COVID-19 2021-02-02 Completed [facility] of PFIZER VACCINE 00:00:00 [facility] SARS-COV-2 COVID-19 2021-02-02 Completed Unive rsity of PFIZER VACCINE 00:00:00 [facility] SARS-COV-2 COVID-19 2021-02-02 Completed [facility]ive rsity of PFIZER VACCINE 00:00:00 [facility] SARS-COV-2 COVID-19 2021-02-02 Completed [facility]ive [facility]ity of PFIZER VACCINE 00:00:00 [facility] SARS-COV-2 COVID-19 2021-02-02 Completed [facility]ive rsity of PFIZER VACCINE 00:00:00 [facility] Influenza Virus 2020-08-27 Completed Universit y of Vaccine Quad .5 mL 00:00:00 [facility] Influenza Virus [...] y of Vaccine Quad .5 mL 00:00:00 [facility] Influenza Virus 2019-10-01 Completed [facility] of Vaccine Quad .5 mL 00:00:00 [facility] 6[facility] Influenza Virus 2019-10-01 Completed [facility] of Vaccine Quad .5 mL 00:00:00 [facility] 6+ [facility] Afluria single dose Afluria single dose 2019-08-05 Completed [facility] 16:46:00 [facility] Afluria single dose Afluria single dose 2019-08-05 Completed [facility] 16:46:00 [facility] Afluria single dose Afluria single dose 2019-08-05 Completed [facility] 16:46:00 [facility] Afluria single dose Afluria single dose 2019-08-05 Completed [facility] 16:46:00 [facility] Afluria single dose Afluria single dose 2019-08-05 Completed [facility] 16:46:00 [facility] Afluria single dose Afluria single dose 2019-08-05 Completed [facility] 16:46:00 [facility] Afluria single dose Afluria single dose 2019-08-05 Completed [facility] 16:46:00 [facility] Afluria single dose Afluria single dose 2019-08-05 Completed [facility] 16:46:00 [facility] Afluria single dose Afluria single dose 2019-08-05 Completed [facility] 16:46:00 [facility] Influenza Virus 2019-08-05 Completed [facility] y [facility] Vaccine [facility] IM 3+ 00:00:00 [facility] Influenza Virus 2019-08-05 Completed [facility]it y of Vaccine [facility] IM 3+ 00:00:00 [facility] Influenza Virus 2019-08-05 Completed [facility] of Vaccine [facility] IM 3+ 00:00:00 [facility] Influenza Virus 2019-08-05 Completed [facility] Vaccine [facility] IM 3+ 00:00:00 [facility] Influenza Virus 2019-08-05 Completed [facility] of Vaccine [facility] IM 3+ 00:00:00 [facility] Influenza Virus 2019-08-05 Completed [facility] Vaccine [facility] IM 3+ 00:00:00 [facility] Influenza Virus 2019-08-05 Completed [facility] of Vaccine [facility] IM 3+ 00:00:00 [facility] Influenza Virus 2019-08-05 Completed [facility] Vaccine [facility] IM 3+ 00:00:00 [facility] Influenza Virus 2019-08-05 Completed [facility] of Vaccine [facility] IM 3+ 00:00:00 [facility] Influenza Virus 2019-08-05 Completed [facility] of Vaccine [facility] IM 3+ 00:00:00 [facility] Influenza Virus 2019-08-05 Completed [facility] of Vaccine [facility] IM 3+ 00:00:00 [facility] Influenza Virus 2019-08-05 Completed [facility] of Vaccine [facility] IM 3+ 00:00:00 [facility] Influenza Virus 2019-08-05 Completed [facility]ine [facility] IM 3+ 00:00:00 [facility] Influenza Virus 2019-08-05 Completed [facility]ine [facility] IM 3+ 00:00:00 [facility] Influenza Virus 2019-08-05 Completed [facility] Vaccine [facility] IM 3+ 00:00:00 [facility] Influenza Virus 2019-08-05 Completed [facility] y of Vaccine [facility] IM 3+ 00:00:00 [facility] Afluria single dose Afluria single dose 2019-08-05 Completed [facility] 00:[facility]:00 [facility] Flucelvax - single Flucelvax - single 2018-10-26 Completed [facility] - dose syringe dose syringe 10:32:00 [facility] Flucelvax - single Flucelvax - single 2018-10-26 Completed [facility] - dose syringe dose syringe 10:32:00 [facility] Flucelvax - single Flucelvax - single 2018-10-26 Completed [facility] - dose syringe dose syringe 10:32:00 [facility] Flucelvax - single Flucelvax - single 2018-10-26 Completed [facility] - dose syringe dose syringe 10:32:00 [facility] Flucelvax - single Flucelvax - single 2018-10-26 Completed [facility] - dose syringe dose syringe 10:32:00 [facility] Flucelvax - single Flucelvax - single 2018-10-26 Completed [facility] - dose syringe dose syringe 10:32:00 [facility] Flucelvax - single Flucelvax - single 2018-10-26 Completed [facility] - dose syringe dose syringe 10:32:00 [facility] Flucelvax - single Flucelvax - single 2018-10-26 Completed [facility] - dose syringe dose syringe 10:32:00 [facility] Flucelvax - single Flucelvax - single 2018-10-26 Completed [facility] - dose syringe dose syringe 10:32:00 [facility] Flucelvax - single Flucelvax - single 2018-10-26 Completed [facility] - dose syringe dose syringe 00:00:00 [facility] Vital Signs Vital Name Observation Time Observation Value Comments Source Respiratory rate 2023-04-25 17:58:00 17 /[facility] 2023-04-25 17:58:00 154.9 cm [facility] Body weight 2023-04-25 17:58:00 79.017 kg [facility] BMI 2023-04-25 17:58:00 32.91 kg/m2 [facility] Systolic blood 2023-04-25 17:58:00 115 mm[Hg] Univer sity of pressure [facility] Diastolic blood 2023-04-25 17:58:00 77 mm[Hg] Unive rsity of [facility] Heart rate 2023-04-25 17:58:00 89 /min [facility] Body temperature 2023-04-25 17:58:00 36.28 Ca [facility] Systolic blood 2023-04-18 13:27:00 125 mm[Hg] Univer sity of pressure [facility] Diastolic blood 2023-04-18 13:27:00 82 mm[Hg] Unive rsity of pressure [facility] Heart rate 2023-04-18 13:27:00 89 /min [facility] Respiratory rate 2023-04-18 13:27:00 20 /min [facility] Body height 2023-04-18 13:27:00 154.9 cm [facility] Body weight 2023-04-18 13:27:00 79.833 kg [facility] BMI 2023-04-18 13:27:00 33.25 kg/m2 [facility] Oxygen saturation in 2023-04-18 13:27:00 99 /min [facility] Arterial blood by [facility] Systolic blood 2023-02-28 14:09:00 128 mm[Hg] Univer sity of pressure [facility] Diastolic blood 2023-02-28 14:09:00 82 mm[Hg] Unive rsity of pressure [facility] Heart rate 2023-02-28 14:09:00 86 /min [facility] Body height 2023-02-28 14:09:00 154.9 cm [facility] Body weight 2023-02-28 14:09:00 78.699 kg [facility] BMI 2023-02-28 14:09:00 32.78 kg/m2 [facility] Oxygen saturation in 2023-02-28 14:09:00 96 /min [facility] blood by [facility] Systolic blood 2023-01-31 18:07:00 92 mm[Hg] Univer sity of pressure [facility] Diastolic blood 2023-01-31 18:07:00 69 mm[Hg] Unive rsity of pressure [facility] Heart rate 2023-01-31 18:07:00 82 /min [facility] Body temperature 2023-01-31 18:07:00 36.5 Ca [facility] Respiratory rate 2023-01-31 18:07:00 20 /min [facility] Body height 2023-01-31 18:07:00 154.9 cm [facility] Body weight 2023-01-31 18:07:00 75.978 kg [facility] BMI 2023-01-31 18:07:00 31.65 kg/m2 [facility] Systolic blood 2022-11-08 15:40:00 114 mm[Hg] Univer sity of pressure [facility] Diastolic blood 2022-11-08 15:40:00 74 mm[Hg] Unive rsity of pressure [facility] Heart rate 2022-11-08 15:40:00 79 /min [facility] Body temperature 2022-11-08 15:40:00 36.33 Ca [facility] Respiratory rate 2022-11-08 15:40:00 18 /min [facility] Body weight 2022-11-08 15:40:00 75.569 kg [facility] BMI 2022-11-08 15:40:00 31.48 kg/m2 [facility] Systolic blood 2022-08-11 15:59:00 129 mm[Hg] Univer sity of pressure [facility] Diastolic blood 2022-08-11 15:59:00 81 mm[Hg] Unive rsity of pressure [facility] Heart rate 2022-08-11 15:59:00 79 /min [facility] Body temperature 2022-08-11 15:59:00 36.11 Ca [facility] Respiratory rate 2022-08-11 15:59:00 18 /min [facility] Body height 2022-08-11 15:59:00 154.9 cm [facility] Body weight 2022-08-11 15:59:00 73.71 kg [facility] BMI 2022-08-11 15:59:00 30.70 kg/m2 [facility] Systolic blood 2022-08-09 14:47:00 134 mm[Hg] Univer sity of pressure [facility] Diastolic blood 2022-08-09 14:47:00 86 mm[Hg] Unive rsity of pressure [facility] Heart rate 2022-08-09 14:47:00 87 /min [facility] Body temperature 2022-08-09 14:47:00 36.5 Ca [facility] Respiratory rate 2022-08-09 14:47:00 20 /min [facility] Body height 2022-08-09 14:47:00 154.9 cm [facility] Body weight 2022-08-09 14:47:00 72.303 kg [facility] BMI 2022-08-09 14:47:00 30.12 kg/m2 [facility] Systolic blood 2022-05-17 14:21:00 125 mm[Hg] Univer sity of pressure [facility] Diastolic blood 2022-05-17 14:21:00 86 mm[Hg] Unive rsity of pressure [facility] Heart rate 2022-05-17 14:21:00 77 /min [facility] Body temperature 2022-05-17 14:21:00 36.11 Ca [facility] Respiratory rate 2022-05-17 14:21:00 17 /min [facility] Body height 2022-05-17 14:21:00 154.9 cm [facility] Body weight 2022-05-17 14:21:00 77.168 kg [facility] BMI 2022-05-17 14:21:00 32.14 kg/m2 [facility] Systolic blood 2022-02-14 14:43:00 134 mm[Hg] Univer sity of pressure [facility] Diastolic blood 2022-02-14 14:43:00 98 mm[Hg] Unive rsity of pressure [facility] Heart rate 2022-02-14 14:42:00 96 /min [facility] Body temperature 2022-02-14 14:42:00 36.11 Ca [facility] Respiratory rate 2022-02-14 14:42:00 18 /min [facility] Body height 2022-02-14 14:42:00 154.9 cm [facility] Body weight 2022-02-14 14:42:00 77.168 kg Universi ty of [facility] BMI 2022-02-14 14:42:00 32.14 kg/m2 Universi ty of [facility] Systolic blood 2021-12-24 15:47:00 126 mm[Hg] Univer sity of pressure [facility] Diastolic blood 2021-12-24 15:47:00 86 mm[Hg] Unive rsity of pressure [facility] Heart rate 2021-12-24 15:45:00 96 /min Universi ty of [facility] Body temperature 2021-12-24 15:45:00 36.22 Ca Univ ersity of [facility] Respiratory rate 2021-12-24 15:45:00 18 /min Univ ersity of [facility] Body height 2021-12-24 15:45:00 154.9 cm Universi ty of [facility] Body weight 2021-12-24 15:45:00 77.157 kg [facility] BMI 2021-12-24 15:45:00 32.14 kg/m2 Universi ty of [facility] Oxygen saturation in 2021-12-24 15:45:00 99 /min [facility] Arterial blood by [facility] Pulse oximetry Branch Body weight 2021-04-29 13:26:00 79.2 kg [facility] BMI 2021-04-29 13:26:00 31.94 kg/m2 [facility] Body weight 2021-03-02 18:34:00 63.5 kg [facility] BMI 2021-03-02 18:34:00 26.45 kg/m2 [facility]i ty of [facility] height 2020-10-22 11:00:00 60.00 [in_i] [facility] weight 2020-10-22 11:00:00 175.6 [lb_av] [facility] temperature 2020-10-22 11:00:00 97.9 [degF] [facility] bmi 2020-10-22 11:00:00 34.29 kg/m2 [facility] oximetry 2020-10-22 11:00:00 97 % [facility] respiratory rate 2020-10-22 11:00:00 16 /min Comm on [facility] blood pressure 2020-10-22 11:00:00 125 mm[Hg] Common [facility] - systolic [facility] blood pressure 2020-10-22 11:00:00 84 mm[Hg] Common [facility] - diastolic [facility] height 2020-09-14 15:00:00 60.00 [in_i] [facility] weight 2020-09-14 15:00:00 178.8 [lb_av] [facility] temperature 2020-09-14 15:00:00 98.0 [degF] [facility] bmi 2020-09-14 15:00:00 34.92 kg/m2 [facility] oximetry 2020-09-14 15:00:00 98 % [facility] respiratory rate 2020-09-14 15:00:00 16 /min Comm on [facility] blood pressure 2020-09-14 15:00:00 139 mm[Hg] Common [facility] - systolic [facility] blood pressure 2020-09-14 15:00:00 88 mm[Hg] Common [facility] - diastolic [facility] height 2020-09-03 08:20:00 60.00 [in_i] [facility] weight 2020-09-03 08:20:00 179 [lb_av] [facility] temperature 2020-09-03 08:20:00 97.6 [degF] [facility] bmi 2020-09-03 08:20:00 34.95 kg/m2 [facility] BP Systolic 2018-05-01 10:10:00 109 mm[Hg] [facility] BP Diastolic 2018-05-01 10:10:00 76 mm[Hg] [facility] Height 2018-05-01 10:10:00 154 cm [facility] Weight 2018-05-01 10:10:00 67.7 kg [facility] Body Mass Index 2018-05-01 10:10:00 28.55 kg/m2 [facility] Calculated Temperature 2018-05-01 10:10:00 96.5 [degF] [facility] Heart Rate 2018-05-01 10:10:00 91 /min [facility] Head Circumference 2018-05-01 10:10:00 54.7 cm [facility] Procedures Procedure Date / Time Performing Clinician Source Performed GARDASIL 9 (HPV 9V) 2023-04-25 18:08:38 Alberta Hurst [facility] VACCINE [facility] PHYSICIAN ORDERS 2023-04-24 05:01:00 Doctor Unassigned, [facility] Name [facility] [place] INSURANCE CORRESPONDENCE 2023-03-02 05:01:00 Doctor Unassigned, [facility] Name [facility] GARDASIL 9 (HPV 9V) 2023-01-31 18:52:10 Alberta Hurst [facility] GC & CHLAMYDIA AMPLIFIED 2023-01-31 18:44:[address] [facility] GALV ONLY - VAGINAL 2023-01-31 18:44:00 Alberta Hurst [facility] PATHOGENS BY NUCLEIC ACID [facility] TESTING HIV 1/2 AG-AB WITH REFLEX 2023-01-31 18:44:00 Alberta Hurst [facility] HIGH RISK HPV-THIN PREP 2023-01-31 18:44:00 Alberta Hurst [facility] TRICHOMONAS AMPLIFIED 2023-01-31 18:44:00 [facility] P[facility] SMEAR-LIQUID BASED-CP 2023-01-31 18:44:00 Alberta Hurst [facility] SYPHILIS IGG/IGM 2023-01-31 18:44:00 Alberta Hurst [facility] FLU VACC ([id number]), 6 2023-01-31 18:26:50 Alberta Hurst [facility] MO-64 YRS, .5ML, IM, QUAD Medica l Branch (FLUCELVAX) REFERRAL- REQUEST/RESPONSE 2023-01-27 05:01:00 Doctor Unassigned , [facility] Name Medical Branch PATIENT QUESTIONNAIRE 2023-01-04 06:01:00 Doctor Unassigned, [facility] Onset Medical Branch REFERRAL- REQUEST/RESPONSE 2022-12-02 06:01:00 Doctor Unassigned , [facility] Onset [facility] [place] US RETROPERITONEAL 2022-08-29 18:32:47 Precious Verdugo [facility] COMPLETE Medical Branch PHOSPHORUS 2022-08-17 15:12:00 [facility] URIC ACID 2022-08-17 15:12:00 [facility] BASIC METABOLIC PANEL (NA, 2022-08-17 15:12:00 Amalia Barton [facility] K, CL, CO2, GLUCOSE, BUN, [facility] CREATININE, CA) CBC WITH DIFF 2022-08-17 15:12:00 [facility] URINALYSIS 2022-08-17 15:12:00 [facility] PROTEIN CREAT RATIO URINE 2022-08-17 15:12:00 Amalia Barton [facility] HIV 1/2 AG-AB WITH REFLEX 2022-08-17 15:12:00 Amalia Barton [facility] CONSENT/REFUSAL FOR 2022-08-11 14:44:13 Doctor Unassigned, [facility] DIAGNOSIS AND TREATMENT [facility] [place] [facility] THORAX WO CONTRAST 2022-01-05 14:13:55 Sabrina Wooten [facility] FERRITIN SERUM 2021-12-24 16:28:00 Sabrina Wooten [facility] TOTAL IRON BINDING 2021-12-24 16:28:00 Sabrina Wooten [facility] COMP. METABOLIC PANEL 2021-12-24 16:28:00 Sabrina Wooten [facility] ([id number]) [facility] [place] CBC WITH DIFF 2021-12-24 16:28:00 Sabrina Wooten [facility] INSURANCE CORRESPONDENCE 2021-12-02 06:01:00 Doctor Unassigned, [facility] Onset [facility] EKG w/Rhythm Strip 2018-04-17 00:00:00 [facility] [...] w/wo contrast 2018-04-17 00:00:[address] [facility] [id number] [facility] Abdomen w/wo contrast 2018-04-17 00:00:00 [facility] [id number] Encounters Start End Encounter Admission Attending Care Care Encounter Source Date/Time Date/Time Type Type Clinicians Facility Department ID 2021-12-08 Outpatient Bates, Na STLMLC STLMLC [id number] 2 Common 12:12:18 [id number] [facility] 2021-12-08 Outpatient Bates, Na STLMLC STLMLC [id number] 2 Common 12:11:19 [id number] [facility] 2021-12-08 Outpatient Bates, Na STLMLC STLMLC [id number] 2 Common 12:01:13 [id number] [facility] 2021-12-08 Outpatient Bates, Na STLMLC STLMLC [id number] 2 Common 12:00:44 [id number] [facility] 2021-12-08 Outpatient Bates, Na STLMLC STLMLC [id number] 2 Common 12:00:24 [id number] [facility] 2021-12-08 Outpatient Bates, Na STLMLC STLMLC [id number] 2 Common 11:57:53 [id number] [facility] 2021-12-08 Outpatient Bates, Na STLMLC STLMLC [id number] 2 Common 11:50:13 [id number] [facility] 2021-12-08 Outpatient Bates, Na STLMLC STLMLC [id number] 2 Common 11:44:48 [id number] [facility] 2021-12-08 Outpatient Bates, Na STLMLC STLMLC [id number] 2 Common 11:44:02 [id number] [facility] 2021-12-08 Outpatient Bates, Na STLMLC STLMLC [id number] 2 Common 11:42:40 19678 [facility] 2021-12-08 Outpatient Bates, Na STLMLC STLMLC [id number] 2 Common 11:10:16 53412 [facility] 2021-12-08 Outpatient Bates, Na STLMLC STLMLC [id number] 2 Common 11:07:32 79258 [facility] 2021-09-13 Outpatient R JOSHUA LOPEZ [facility] GICami [id number] Univers 23:49:41 JOSHUA LOPEZ i ty [facility] 2021-09-13 Emergency [facility] [id number] Univers 04:00:36 ity [facility] 2021-09-12 Emergency [facility] [id number] Univers 09:20:27 ity [facility] 2021-09-11 Emergency [facility] [id number] Univers 12:17:27 ity [facility] 2021-09-10 Emergency [facility] [id number] Univers 06:09:58 ity [facility] 2021-09-09 Emergency [facility] [id number] Univers 19:00:01 ity [facility] 2023-09-06 2023-09-06 Outpatient R [facility] [id number] Univers 13:00:00 13:00:00 ity [facility] 2023-07-18 2023-07-18 Outpatient R [facility] [id number] Univers 08:30:00 08:30:00 ity [facility] 2023-05-30 2023-05-30 Outpatient R PRIMO [facility] [id number] Univers 09:00:00 09:00:00 SENDIL ity of [facility] 2023-05-08 2023-05-08 Outpatient SFA SFA [id number] Hi 08:45:21 08:45:21 53054 F Sarmad 2023-04-25 2023-04-25 Nurse Visit, José Luis-Rmchp Nurse [facility] 1.2 .840.114 [id number] Univers 13:30:00 13:30:00 Visit Alberta Hurst DIRECTOR BUSINESS INTEGRATION 350.1.13. 10 ity [facility] 4.2.7.2.686 Jerome as MATERNAL [phone] Med ical & CHILD [address] [place] [address] 2023-04-25 2023-04-25 Outpatient R NATALI [facility] [id number] Univers 13:30:00 13:09:23 ALBERTA thao o f [facility] 2023-04-25 2023-04-25 Outpatient R [facility] [id number] Univers 10:00:00 10:00:00 ity of [facility] 2023-04-24 2023-04-24 Paragliding Instructor Mary, Jade Lab Main [facility] 1.2.8 40.114 [id number] Univers 11:15:00 11:30:00 Visit Tari Trivedi 350.1.13.10 ity [facility] [place].2.7.2.[place] [id number] De dical [facility] 2023-04-24 2023-04-24 Outpatient R MEGHANA [facility] [id number] Univers 11:15:00 11:15:00 TARI ity [facility] 2023-04-24 2023-04-24 Orders Doctor PAOLA 1.2.840.114 [id number] Univers 00:00:00 00:00:00 Only Unassigned, RISSA 350.1.13.10 [facility] 4.2.7.2.686 Jerome as [id number] [address] 2023-04-18 2023-04-18 Outpatient R PHILLIP [facility] [id number] Univers 08:40:00 08:52:18 AVE ity [facility] 2023-04-18 2023-04-18 Office [facility] 1.2.840.114 [id number] [facility] 08:40:00 08:52:[address] Neela JACKSON 350.1.13.10 i ty of [facility] 4.2.7.2.[place] [id number] [address] 2023-04-12 2023-04-12 Telephone [facility] 1.2.433.160 [id number] Univers 00:00:00 00:00:00 Sendil Otilia JACKSON 350.1.13.10 ity of [place] 4.2.7.2.[place] [id number] [address] 2023-03-31 2023-03-31 [place] [facility] 1.2.282.808 [id number] Univers 00:00:00 00:00:00 Sendanastasiya JACKSON 350.1.13.10 ity of [facility] 4.2.7.2.686 [place] [id number] [address] 2023-03-22 2023-03-22 Outpatient Moise TILLMAN [facility] [id number] Univers 07:37:19 23:59:00 SENDIL ity [facility] 2023-03-17 2023-03-17 [place] [facility] 1.2.029.956 [id number] Univers 00:00:00 00:00:00 Sendil Otilia JACKSON 350.1.13.10 ity of [place] 4.2.7.2.[place] [id number] [address] 2023-03-13 2023-03-13 Outpatient Moise TILLMAN [facility] [id number] Univers 08:30:00 08:30:00 SENDIL ity [facility] 2023-03-09 2023-03-09 Outpatient R PRIMO [facility] [id number] Univers 08:11:41 23:59:00 SENDIL ity [facility] 2023-03-02 2023-03-02 Orders Doctor GUEVARA 1.2.840.114 [id number] Univers 00:00:00 00:00:00 Only Unassigned, RISSA 350.1.13.10 ity of Onset [facility] 4.2.7.2.686 Jerome as [id number] [address] 2023-02-28 2023-02-28 Outpatient R PRIMO [facility] [id number] Univers 09:30:00 09:39:07 SENDIL ity [facility] 2023-02-28 2023-02-28 Office [facility] 1.2.840.114 [id number] Univers 09:30:00 09:39:07 Visit Patrick JACKSON 350.1.13.10 ity [facility] 4.2.7.2.[place] [id number] De dical [address] 2023-01-31 2023-01-31 Outpatient R NATALI [facility] [id number] Univers 13:00:00 13:50:11 ALBERTA thao o f [facility] 2023-01-31 2023-01-31 Office [facility] 1.2.948.025 [id number] Univers 13:00:00 13:50:11 Visit Alberta Chaparro DIRECTOR BUSINESS INTEGRATION 350.1.13.10 ity of [facility] 4.2.7.2.686 Jerome as MATERNAL [phone] Med ical & CHILD [address] [place] [address] 2023-01-31 2023-01-31 Outpatient R NATALI [facility] [id number] Univers 13:00:00 13:00:00 ALBERTA thao o f [facility] 2023-01-27 2023-01-27 Orders Doctor GUEVARA 1.2.840.114 [id number] Univers 00:00:00 00:00:00 Only Unassigned, RISSA 350.1.13.10 ity of Onset [facility] 4.2.7.2.686 Jerome as [id number] [address] 2023-01-04 2023-01-04 [facility] [id number] Univers 09:30:00 09:30:00 OBED itjake [facility] 2023-01-04 2023-01-04 Orders Doctor PAOLA 1.2.840.114 [id number] Univers 00:00:00 00:00:00 Only Unassigned, RISSA 350.1.13.10 ity of Onset [facility]OSP[facility] 4.2.7.2.686 Jerome as [id number] [address] 2022-12-02 2022-12-02 Orders Doctor PAOLA 1.2.840.114 [id number] Univers 00:00:00 00:00:00 Only Unassigned, RISSA 350.1.13.10 ity of Onset [facility] 4.2.7.2.686 Jerome as [id number] [address] 2022-11-08 2022-11-08 Outpatient R ELICEO [facility] [id number] Univers 10:30:00 10:30:00 VANDANA crystal [facility] 2022-11-08 2022-11-08 [facility] [id number] Univers 08:30:00 09:39:24 ALBERTA crystal [facility] 2022-11-08 2022-11-08 Nurse Visit, José LuisRmchp Nurse [facility] 1.2 .840.114 [id number] Univers 08:30:00 09:39:24 Visit Alberta Hurst DIRECTOR BUSINESS INTEGRATION 350.1.13. 10 ity of [facility] 4.2.7.2.686 Jerome as MATERNAL [id number] [facility] ical & CHILD [address] [place] [address] 2022-10-25 2022-10-25 Outpatient [facility] Hi 09:17:48 09:17:48 [place] 2022-10-13 2022-10-13 Outpatient SFA [facility] Hi 15:50:42 15:50:42 [place] 2022-10-10 2022-10-10 Outpatient [facility] Hi 09:55:32 09:55:32 F Sarmad 2022-08-29 2022-08-29 Outpatient R LUCINA [facility] [id number] Univers 12:13:33 23:59:00 MANAF ity [facility] 2022-08-29 2022-08-29 [facility] 1.2.840.114 [id number] Univers 12:13:33 23:59:00 Encounter Precious JACKSON 350.1.13.10 ity of [place].2.7.2.686 [place] [id number] [facility] [address] 2022-08-17 2022-08-17 Paragliding Instructor Mary, Adc Lab Main [facility] 1.2.8 40.114 [id number] Univers 09:30:00 09:45:00 Visit Tari Trivedi 350.1.13.10 ity [facility] 4.2.7.2.686 [facility] [id number] De dic[address] 2022-08-17 2022-08-17 Outpatient R MEGHANA [facility] [id number] Univers 09:30:00 09:30:00 TARI thao [facility] 2022-08-11 2022-08-11 [facility] [id number] Univers 11:00:00 12:03:20 ALBERTA stanley [facility] 2022-08-11 2022-08-11 Office [facility] 1.2.835.945 [id number] Univers 11:00:00 12:03:20 Visit Alberta Chaparro DIRECTOR BUSINESS INTEGRATION 350.1.13.10 ity of [facility] 4.2.7.2.686 Jerome as MATERNAL [id number] Med ical & CHILD [address] [place] [address] 2022-08-11 2022-08-11 Orders Doctor PAOLA 1.2.840.114 [id number] Univers 00:00:00 00:00:00 Only Unassigned, RISSA 350.1.13.10 ity of Onset [facility] 4.2.7.2.686 Jerome as [id number] [facility] [address] 2022-08-09 2022-08-09 Outpatient Moise FENTON [facility] [id number] Univers 10:00:00 10:00:00 VANDANA crystal lizeth [facility] 2022-08-09 2022-08-09 Nurse [facility], [facility] 1.2 .840.114 [id number] [facility] 10:00:00 10:00:00 Visit Vandana Fenton Moise DIRECTOR BUSINESS INTEGRATION 350.1.13.10 ity of [facility] 4.2.7.2.686 Jerome as MATERNAL [id number] [facility] & CHILD [address] [place] [address] 2022-05-17 2022-05-17 Nurse Visit, José Luis[facility] 1.2 .840.114 [id number] [facility] 09:00:00 09:27:11 Visit Vandana Fenton DIRECTOR BUSINESS INTEGRATION 350.1.13.10 ity of [facility] 4.2.7.2.686 Jerome as MATERNAL [id number] [facility] & CHILD [address] [place] [address] 2022-05-17 2022-05-17 Outpatient R ELICEO [facility] [id number] Univers 09:00:00 09:00:00 VANDANA crystal lizeth [facility] 2022-02-14 2022-02-14 Nurse Visit, José [facility] 1.2 .840.114 [id number] Univers 09:30:00 09:48:50 Visit Vandana Fenton Moise DIRECTOR BUSINESS INTEGRATION 350.1.13.10 ity of [facility] 4.2.7.2.686 Jerome as MATERNAL [id number] [facility] & [address] 2022-02-14 2022-02-14 Outpatient R [facility] [id number] Univers 09:30:00 09:30:00 ity [facility] 2022-02-14 2022-02-14 Outpatient R ELICEO [facility] [id number] Univers 09:30:00 09:30:00 VANDANA thao o f [facility] 2022-01-27 2022-01-27 Outpatient R MAHNAZ [facility] [id number] Univers 13:00:00 13:00:[address] [facility] 2022-01-05 2022-01-05 Outpatient R SABRINA WOOTEN [facility] [id number] Univers 07:56:31 23:59:00 ity of [facility] 2022-01-05 2022-01-05 Hospital Sabrina Wooten [facility] 1.2.840.114 [id number] Univers 07:56:31 23:59:00 Encounter Rp MANUEL 350.1.13.10 ity of [place]2.7.2.[place] [id number] [facility] [address] 2021-12-27 2021-12-27 [facility] [id number] Univers 08:30:00 08:30:00 WONDIFUL ity o f [facility] 2021-12-24 2021-12-24 Paragliding Instructor [facility] UN[facility]ERS[facility] 1.2.840.114 [id number] Univers 10:30:00 10:45:00 Visit Sabrina Wooten [facility] 350.1.13.10 ity of [facility] 4.2.7.2.686 [place] [id number] [facility] [address] 2021-12-24 2021-12-24 Office Sabrina Wooten NORISRAMSESDONTAFidel 1.2.840.114 [id number] Univers 09:20:00 09:40:00 Visit Rp H 350.1.13.10 it y of [facility] 4.2.7.2.686 Jerome as [id number] [facility] [address] 2021-12-24 2021-12-24 Outpatient R SABRINA WOOTEN [facility] [id number] Univers 09:20:00 09:20:00 ity of [facility] 2021-12-15 2021-12-15 [facility] [id number] Univers 08:30:00 08:30:00 MIREILLENDA ity o f [facility] 2021-12-13 2021-12-13 Telephone [facility] 1.2.840.114 [id number] Univers 00:00:00 00:00:00 Alberta Chaparro DIRECTOR BUSINESS INTEGRATION 350.1.13.10 ity of [facility] 4.2.7.2.686 Jerome as MATERNAL [id number] Med ical & CHILD [address] [place] [address] 2021-12-09 2021-12-09 Outpatient R NATALI [facility] [id number] Univers 14:15:00 14:28:57 ALBERTA thao o f [facility] 2021-12-09 2021-12-09 [facility] 1.2.331.268 [id number] Univers 14:15:00 14:28:57 Visit Alberta Chaparro DIRECTOR BUSINESS INTEGRATION 350.1.13.10 ity of [facility] 4.2.7.2.686 Jerome as MATERNAL [id number] [facility] ical & CHILD [address] [place] [address] 2021-12-07 2021-12-07 Telephone [facility] 1.2.359.495 [id number] Univers 00:00:00 00:00:00 Vandana Phipps DIRECTOR BUSINESS INTEGRATION 350.1.13.10 ity of [facility] 4.2.7.2.686 Jerome as MATERNAL [id number] [facility] & CHILD [address] [place] [address] 2021-12-03 2021-12-03 [facility] 1.2.840.114 [id number] Univers 00:00:00 00:00:00 Alberta Chaparro DIRECTOR BUSINESS INTEGRATION 350.1.13.10 ity of [facility] 4.2.7.2.686 Jerome as MATERNAL [id number] [facility] & CHILD [address] [place] [address] 2021-12-02 2021-12-02 Orders Doctor PAOLA 1.2.840.114 [id number] Univers 00:00:00 00:00:00 Only Unassigned, RISSA 350.1.13.10 ity of Onset [facility] 4.2.7.2.686 Jerome as [id number] [address] 2021-11-30 2021-11-30 Telephone [facility] 1.2.840.114 [id number] Univers 00:00:00 00:00:00 Pritesh Haines DIRECTOR BUSINESS INTEGRATION 350.1.13.10 it y of REGIONAL 4.2.7.2.686 Jerome as MATERNAL [id number] [facility] & CHILD [address] [place] [address] 2021-11-22 2021-11-22 Outpatient R AKINSIPE, [facility] [id number] Univers 09:15:00 10:06:01 ALBERTA thao o [facility] 2021-11-22 2021-11-22 Office [facility] 1.2.431.628 [id number] Univers 09:15:00 10:06:01 Visit Alberta C DIRECTOR BUSINESS INTEGRATION 350.1.13.10 ity of [facility] 4.2.7.2.686 Jerome as MATERNAL [id number] [facility] & [address] 2021-11-22 2021-11-22 Outpatient R AKINISAIPE, [facility] [id number] Univers 09:15:00 10:06:01 ALBERTA barrigay o [facility] 2021-11-22 2021-11-22 Outpatient R AKINSIPE, [facility] [id number] Univers 09:15:00 10:06:01 ALBERTA barrigay o [facility] 2021-11-22 2021-11-22 Outpatient R AKINISAIPE, [facility] [id number] Univers 09:15:00 09:15:00 ALBERTA barrigay o [facility] 2021-10-19 2021-10-19 Telephone [facility] 1.2.840.114 [id number] Univers 00:00:00 00:00:00 [facility] 350.1.13.10 [facility] 4.2.7.2.686 Jerome as LAN?BLEA [id number] [address] MEDICAL OFFICE [facility] 2021-10-13 2021-10-13 Telephone [facility] 1.2.840.114 [id number] Univers 00:00:00 00:00:00 Alberta C DIRECTOR BUSINESS INTEGRATION 350.1.13.10 ity of [facility] 4.2.7.2.686 Jerome as MATERNAL [id number] [facility] & [address] 2021-10-12 2021-10-12 Outpatient R JOSE CARLOS, [facility] [id number] Univers 09:00:00 09:00:00 [facility] 2021-10-02 2021-10-02 Telephone [facility] 1.2.416.045 [id number] Univers 00:00:00 00:00:00 Brad SPECIALTY 350.1.13.10 ity of [place].2.[place] CENTER AT [phone] De moy [facility] 2021-09-30 2021-09-30 Outpatient R DIANA [facility] [id number] Univers 11:00:00 11:19:40 WONDIFUL ity o f [facility] 2021-09-30 2021-09-30 Office [facility] 1.2.840.114 [id number] Univers 10:49:51 11:19:40 Visit Wondiful A HEALTH 350.1.13.10 ity of [place] 4.2.7.2.686 Jerome as LAN?BLEA [phone] De moy CROW 044 [facility] OFFICE [facility] 2021-09-30 2021-09-30 Telephone [facility] 1.2.840.114 [id number] Univers 00:00:00 00:00:00 Wondiful A HEALTH 350.1.13.10 ity of [place] 4.2.7.2.686 Jerome as LAN?BLEA [id number] De moy CROW [address] [place] [address] OFFICE [facility] 2021-09-15 2021-09-15 Telephone [facility] 1.2.840.114 [id number] Univers 00:00:00 00:00:00 Wondiful A HEALTH 350.1.13.10 ity of [place] 4.2.7.2.686 Jerome as LAN?BLEA [phone] De moy CROW [address] [place] [address] OFFICE [facility] 2021-09-09 2021-09-09 Outpatient R NATALI [facility] [id number] Univers 15:00:00 15:00:00 ALBERTA ity o f [facility] 2021-09-09 2021-09-09 Outpatient R JOSE CARLOS [facility] [id number] Univers 14:30:00 14:30:00 BILAL ity [facility] 2021-09-09 2021-09-09 Telephone [facility] 1.2.840.114 [id number] Univers 00:00:00 00:00:00 Wondiful A HEALTH 350.1.13.10 ity of [place] 4.2.7.2.686 Jerome as LAN?BLEA [id number] [address] OFFICE [facility] 2021-09-06 2021-09-06 Refill [facility] 1.2.840.114 [id number] Univers 00:00:00 00:00:00 Wondiful A Health 350.1.13.10 ity of [place] 4.2.7.2.686 Jerome as Professio [id number] [address] One 2021-09-02 2021-09-02 Telephone [facility] 1.2.840.114 [id number] [facility] 00:00:00 00:00:00 Pritesh Haines DIRECTOR BUSINESS INTEGRATION 350.1.13.10 it y of [facility] 4.2.7.2.686 Jerome as MATERNAL [id number] Med ical & CHILD [facility] 2021-09-01 2021-09-01 Ancillary Connie Huddleston [facility] 1.2.8 40.114 [id number] Univers 13:02:05 13:47:05 Visit Jimmy [place] 350.1.13.10 ity of [place].2.686 [place] Profess[place] [id number] [address] 2021-08-30 2021-08-30 Office Barbara [facility] 1.2.840.114 [id number] Univers 09:57:19 11:01:49 Visit [facility] 350.1.13.10 it y of [place] 4.2.7.2.686 Jerome as Lan?Blea [id number] [address] 2021-08-30 2021-08-30 Office [facility] 1.2.063.884 [id number] Univers 08:25:04 09:28:20 Visit Pritesh Haines DIRECTOR BUSINESS INTEGRATION 350.1.13.10 it y of [facility] 4.2.7.2.686 Jerome as MATERNAL [id number] Med ical & CHILD [facility] 2021-08-30 2021-08-30 Outpatient Moise GREENFIELD [facility] [id number] Univers 08:30:00 08:30:00 PRITESH keesha [facility] 2021-08-18 2021-08-18 Ancillary Connie Huddleston [facility] 1.2.8 40.114 [id number] Univers 08:04:55 08:49:55 Visit Jimmy [place] 350.1.13.10 ity of [place].2.[place] [facility] [phone] De dical nal 145 [facility] 2021-08-18 2021-08-18 Outpatient Moise MADRID [facility] [id number] Univers 08:45:00 08:45:00 JIMMY thao [facility] 2021 2021 Hospital Jessica [facility] 1.2.840.114 [id number] Univers 11:03:00 12:41:00 Encounter Joshua Keita [facility] 350.1.13.10 ity of [place]2.686 [place] [facility] [phone] [address] ([facility]) 2021 2021 Surgery Jessica [facility] 1.2.840.114 [id number] Univers 10:03:00 10:48:00 Joshua Keita SPECIALTY 350.1.13.10 ity of CARE [place].7.2.686 [place] CENTER AT [id number] De moy VICTORY 020 [facility] 2021 2021 Orders Doctor PAOLA 1.2.840.114 [id number] Univers 00:00:00 00:00:00 Only Unassigned, RISSA 350.1.13.10 ity of Onset [facility]OSPITAL 4.2.7.2.686 Jerome as [id number] [facility] [address] 2021-08-14 2021-08-14 Laboratory Only, Adc Test [facility] 1.2.840. 114 [id number] Univers 09:07:55 09:22:55 Only Joshua Lopez 350.1.13.10 ity [facility] 4.2.7.2.686 [place] [phone] [address] 2021-08-14 2021-08-14 Outpatient R JOSHUA LOPEZ [facility] [id number] Univers 09:15:00 09:15:00 [facility] 2021-08-13 2021-08-13 Outpatient R MAHNAZ [facility] [id number] Univers 10:30:00 10:30:00 [facility]AH [facility] 2021-08-09 2021-08-09 Telephone Flaquito [facility] 1.2.840.114 [id number] Univers 00:00:00 00:00:00 Connie Jackson 350.1.13.10 ity [facility] [place]2.7.2.686 [place] [facility] [phone] De dical [address] 2021-08-09 2021-08-09 Telephone Eliceo [facility] [id number] Univers 00:00:00 00:00:00 Vandana R DIRECTOR BUSINESS INTEGRATION [id number] ity of [facility] [id number] Jerome as MATERNAL [phone] Med ical & CHILD [address] [place] [address] 2021-08-09 2021-08-09 [facility] [id number] Univers 00:00:00 00:00:00 Rossheilanda R DIRECTOR BUSINESS INTEGRATION [id number] ity of [facility] [id number] Jerome as MATERNAL [phone] Med ical & CHILD [address] [place] [address] 2021-08-06 2021-08-06 [facility] 1.2.840.114 [id number] Univers 12:45:21 13:15:26 Visit Vandana R DIRECTOR BUSINESS INTEGRATION [id number] ity of [facility] [id number] Jerome as MATERNAL [phone] [facility] ical & CHILD [address] [place] [address] 2021-08-06 2021-08-06 Outpatient R ELICEO [facility] [id number] Univers 13:00:00 13:00:00 MIREILLEMARIOCandice keesha o f [facility] 2021-08-02 2021-08-02 Telephone Flaquito MIALEXANDRA 1.2.840.114 [id number] [facility] 00:00:00 00:00:00 Connie Manuel [id number] [id number] [phone] De dical nal 145 [facility] 2021-07-29 2021-07-29 Office Brad Barnes [facility] 1.2.840.114 [id number] Univers 10:52:13 14:15:36 Visit Akhil Dumas SPECIALTY 350.1.13.10 ity of [id number] [phone] De moy MARTIN [address] [place] [address] 2021-07-29 2021-07-29 Office Brad Barnes [facility] 1.2.840.114 [id number] Univers 10:52:13 14:15:36 Visit Akhil Dumas SPECIALTY [id number] [id number] [phone] De moy MARTIN [address] [place] [address] 2021-07-29 2021-07-29 Outpatient R PITER [facility] [id number] Univers 14:00:00 14:00:00 AKHIL thao [facility] 2021-07-26 2021-07-26 Office Liborio [facility] [id number] Univers 09:19:16 10:03:45 Visit Josseline Jackson [id number] [id number] [phone] De dicmiguel gannon 188 [facility] 2021-07-26 2021-07-26 Outpatient R LIBORIO [facility] [id number] Univers 09:15:00 09:15:00 JOSSELINE thao [facility] 2021-07-12 2021-07-12 Telephone Flaquito [facility] 1.2.840.114 [id number] Univers 00:00:00 00:00:00 Connie Jackson [id number] it[id number] [phone] De dical nal 145 [facility] 2021-07-10 2021-07-10 Telephone [facility] 1.2.840.114 [id number] Univers 00:00:00 00:00:00 Josseline Jackson [id number] [id number] [phone] De dical nal 188 [facility] 2021-07-08 2021-07-08 Office [facility] [id number] [id number] Univers 09:45:37 10:23:38 Visit Josseline Jackson [id number] i [id number] [phone] De dical nal 188 [facility] 2021-07-08 2021-07-08 Outpatient R LIBORIO [facility] [id number] Univers 10:00:00 10:00:[address] [facility] 2021-07-05 2021-07-05 Outpatient R FABIOLA IZAGUIRRE [facility] [id number] Univers 00:00:00 00:00:00 [facility] 2021-06-25 2021-06-25 Outpatient R SABRINA WOOTEN [facility] [id number] Univers 10:20:00 10:20:00 [facility] 2021-06-09 2021-06-09 Outpatient R TRACIE [facility] [id number] Univers 10:30:00 10:30:00 ASHLEY thao o f [facility] 2021-06-03 2021-06-03 Outpatient R FLORIAN [facility] [id number] Univers 11:00:00 11:00:[address] [facility] 2021-05-18 2021-05-18 Outpatient R FABIOLA IZAGUIRRE [facility] RAD [id number] Univers 10:00:00 10:00:00 [facility] 2021-05-11 2021-05-11 Outpatient R [facility] [id number] Univers 18:00:00 18:00:00 ity [facility] 2021-05-07 2021-05-07 Outpatient R NADJA [facility] [id number] Univers 17:20:00 17:20:00 [facility] 2021-[facility] 2021-05-07 Outpatient Moise OLIVA [facility] [id number] Univers 17:15:00 17:15:00 [facility] 2021-05-05 2021-05-05 Outpatient FABIOLA CHAVEZ [facility] [id number] Univers 10:00:00 10:00:00 [facility] 2021-04-29 2021-04-29 Pre-Anesth Call, [facility] 1.2.840.114 [id number] Univers 08:30:00 08:35:00 [facility] [employer] HEALTH [id number] ity of Evaluation CLEAR [id number] T [facility] [phone] [address] ([facility]) 2021-04-23 2021-04-23 Outpatient GIL WYNNE [facility] [id number] Univers 10:00:00 10:00:[address] [facility] 2021-04-21 2021-04-21 Outpatient R [facility] [id number] Univers 09:00:00 09:00:00 [facility] 2021-04-16 2021-04-16 Outpatient R [facility] [id number] Univers 00:00:00 00:00:00 ity [facility] 2021-04-15 2021-04-15 Outpatient FABIOLA CHAVEZ [facility] [id number] Univers 00:00:00 00:00:00 [facility] 2021-04-13 2021-04-13 Outpatient RENATO DILL [facility] [id number] Univers 00:00:00 00:00:00 ity [facility] 2021-04-08 2021-04-08 Outpatient FABIOLA CHAVEZ [facility] [id number] Univers 00:00:00 00:00:00 ity of [facility] 2021-04-02 2021-04-02 Outpatient R ZINA FABIOLA [facility] [id number] Univers 00:00:00 00:00:00 ity of [facility] 2021-03-29 2021-03-29 Outpatient Moise ORTIZ [facility] [id number] Univers 10:30:00 10:30:00 WONDIFUL ity o f [facility] 2021-03-26 2021-03-26 Outpatient RENATO DILL [facility] [id number] Univers 00:00:00 00:00:00 ity [facility] 2021-03-10 2021-03-10 Outpatient RENATO DILL [facility] RAD [id number] Univers 09:00:00 09:00:00 ity [facility] 2021-03-04 2021-03-04 Outpatient RENATO DILL [facility] [id number] Univers 00:00:00 00:00:00 ity [facility] 2021-03-02 2021-03-02 Pre-Anesth Call, [facility] 1.2.840.114 [id number] Univers 13:35:00 13:40:00 esicandice [facility] Phone HEALTH 350.1.13.10 ity of Evaluation [place] [id number] [facility] [phone] [address] ([facility]) 2021-02-23 2021-02-23 Outpatient Moise REDDY [facility] [id number] Univers 13:30:00 13:30:00 SHAKIR ity [facility] 2021-02-11 2021-02-11 [facility] KATE [place] 1.2.840.114 [id number] 08:34:08 23:59:00 Encounter Shea HEALTH [id number] CLINICS [id number] [id number] 2021-02-11 2021-02-11 Outpatient Moise MEDINA [facility] [id number] Univers 00:00:00 00:00:00 SHEA ity [facility] 2021-02-09 2021-02-09 Renato Salazar [facility] 1.2.840.114 [id number] 00:00:00 00:00:00 Management Gage [facility] [id number] CLINICS 4.2.7.2.686 [id number] 2021-02-08 2021-02-08 [facility] 1.2.840.114 [id number] 17:25:00 20:35:00 [id number] [facility] [id number] [place] [phone] [address] ([facility]) 2021-02-08 2021-02-08 Outpatient R UNKNOWN, [facility] [id number] Univers 17:30:00 17:30:[address] [facility] 2021-02-08 2021-02-08 Outpatient R SHAYNA III, [facility] [id number] Univers 16:00:00 16:00:[address] [facility] 2021-02-08 2021-02-08 Outpatient R JUSTIN, [facility] [id number] Univers 16:00:00 16:00:00 COCO thao o lizeth [facility] 2021-02-08 2021-02-08 [facility] [id number] Univers 00:00:00 00:00:[address] [facility] 2021-02-04 2021-02-04 Telephone Fabiola Izaguirre [facility] 1.2.840.11 [id number] 00:00:00 00:00:00 Y [facility] 350.1.13.10 [facility] 4.2.7.2.686 [id number] 2021-02-02 2021-02-02 [facility] [id number] Univers 13:30:00 13:30:00 [facility] 2021-02-02 2021-02-02 [facility] [id number] Univers 12:30:00 12:30:00 [facility] 2021-02-02 2021-02-02 [facility] 1.2.840.114 [id number] 00:00:00 00:00:00 [facility] 350.1.13.10 [facility] [id number] AMA [id number] 2021-01-28 2021-01-28 [facility] Fabiola Izaguirre KATE 1.2.840.114 [id number] 08:35:41 23:59:00 Encounter Y HEALTH 350.1.13.10 [facility] 4.2.7.2.686 [id number] 2021-01-28 2021-01-28 Outpatient R [facility] [id number] Univers 00:00:00 [facility]00[facility] 2021-01-27 2021-01-27 Nurse Nurse, [facility] 1.2.840.114 [id number] 09:18:25 09:32:38 Visit [facility] [place] 350.1.13.10 [facility] 4.2.7.2.686 Ariel [phone] [facility] 134 [facility] 2021-01-27 2021-01-27 Outpatient R [facility] [id number] Univers 09:00:00 09:00:00 ity [facility] 2021-01-22 2021-01-22 Office SugarSabrina harvey 1.2.840.114 [id number] 09:34:26 11:19:10 Visit Rp H 350.1.13.10 [facility] 4.2.7.2.686 [id number] 2021-01-22 2021-01-22 Outpatient R SABRINA WOOTEN [facility] [id number] Univers 10:20:00 10:20:00 ity [facility] 2021-01-08 2021-01-08 Outpatient R YOVANNY CHOI [facility] [id number] Univers 11:00:00 11:00:00 ity [facility] 2021-01-04 2021-01-04 Outpatient R DIANA [facility] [id number] Univers 10:45:00 10:45:00 WONDIFUL ity o f [facility] 2020-12-18 2020-12-18 Outpatient R FABIOLA IZAGUIRRE [facility] [id number] Univers 10:30:00 10:30:00 ity of [facility] 2020-12-04 2020-12-04 Outpatient R DIANA [facility] [id number] Univers 10:00:00 10:00:00 WONDIFUL ity o f [facility] 2020-12-03 2020-12-03 Outpatient R DIANA [facility] [id number] Univers 13:30:00 13:30:00 WONDIFUL ity o f [facility] 2020-12-03 2020-12-03 Outpatient R [facility] [id number] Univers 10:00:00 10:00:00 ity of [facility] 2020-12-01 2020-12-01 Outpatient R [facility] [id number] Univers 00:00:00 00:00:00 ity of [facility] 2020-11-17 2020-11-17 Outpatient R [facility] [id number] Univers 10:30:00 10:30:00 ity of [facility] 2020-11-10 2020-11-10 Outpatient R FELICIANO [facility] [id number] Univers 14:40:00 14:40:00 OMAYEMI ity [facility] 2020-11-09 2020-11-09 Outpatient R FABIOLA IZAGUIRRE [facility] [id number] Univers 00:00:00 00:00:00 ity of [facility] 2020-10-29 2020-10-29 Outpatient R ROSANA RANDHAWA [facility] [id number] Univers 14:30:00 14:30:00 ity of [facility] 2020-10-28 2020-10-28 Outpatient R [facility] [id number] Univers 00:00:00 00:00:00 ity of [facility] 2020-10-23 2020-10-23 Outpatient R [facility] [id number] Univers 14:00:00 14:00:00 ity of [facility] 2020-10-23 2020-10-23 (TEL) STLMLC STLMLC [id number] Co mmon 00:00:00 00:00:00 [facility] 2020-10-22 2020-10-22 (TEL) STLMLC STLMLC [id number] Co mmon 00:00:00 00:00:00 [facility] 2020-10-22 2020-10-22 OFFICE STLMLC STLMLC [id number] Co mmon 00:00:00 00:00:00 VISIT EST Spir it PT LEVEL 3 - [facility] 2020-10-20 2020-10-20 Outpatient R PARTH [facility] [id number] Univers 10:00:00 10:00:00 ZACH ity [facility] 2020-10-19 2020-10-19 Outpatient R RANDHAWAROSANA [facility] [id number] Univers 13:30:00 13:30:00 ity [facility] 2020-10-10 2020-10-10 Telephone Brian Edwards 1.2.840.114 [id number] 00:00:00 00:00:00 H 350.1.13.10 [facility] [id number] [id number] 2020-10-02 2020-10-02 Outpatient R SABRINA WOOTEN [facility] [id number] Univers 00:00:00 00:00:00 ity [facility] 2020-09-29 2020-09-29 Outpatient R BRIAN EDWARDS [facility] [id number] Univers 08:30:00 08:30:00 ity [facility] 2020-09-28 2020-09-28 Outpatient R BRIAN EDWARDS [facility] [id number] Univers 00:00:00 00:00:00 ity [facility] 2020-09-24 2020-09-24 Outpatient R ROSANA RANDHAWA [facility] [id number] Univers 08:00:00 08:00:00 ity [facility] 2020-09-19 2020-09-19 (TEL) STLMLC STLMLC [id number] Co mmon 00:00:00 00:00:00 [facility] 2020-09-14 2020-09-14 Outpatient R [facility] [id number] Univers 09:00:00 09:00:00 ity [facility] 2020-09-14 2020-09-14 OFFICE STLMLC STLMLC [id number] Co mmon 00:00:00 00:00:00 VISIT EST Spir it PT LEVEL 3 - [facility] 2020-09-09 2020-09-09 Outpatient R NATALI [facility] [id number] Univers 13:15:00 13:15:00 ALBERTA thao o f [facility] 2020-09-03 2020-09-03 ([place]) Nurse [facility] [id number] Common 00:00:00 00:00:00 Visit [facility] 2020-09-01 2020-09-01 (TEL) STLMLC STLC [id number] Co mmon 00:00:00 00:00:00 [facility] 2020-08-28 2020-08-28 [facility] [id number] Univers 11:00:00 11:00:00 [facility] 2020-08-27 2020-08-27 [facility]patient [facility] [id number] Univers 14:30:00 14:30:[address] [facility] 2020-08-25 2020-08-25 Outpatient R JEAN PIERRE [facility] [id number] Univers 14:30:00 14:30:[address] [facility] 2020-08-12 2020-08-12 OL DIG E/M [facility] [id number] Common 00:00:00 00:00:00 C 11-20 Spir it MIN [facility] 2020-08-11 2020-08-11 (TEL) STLMLC STLC [id number] Co mmon 00:00:00 00:00:00 [facility] 2020-08-07 2020-08-07 Outpatient Moise WOOTEN LETYNile [facility] [id number] Univers 10:40:00 10:40:00 [facility] 2020-07-23 2020-07-23 [facility] [id number] Common 11:20:00 11:20:[address] [facility] 2020-05-28 2020-05-28 Outpatient [facility] [id number] Univers 10:30:00 10:30:[address] [facility] 2020-05-11 2020-05-11 Outpatient [facility] [id number] Common 16:25:00 16:25:[address] [facility] 2020-05-08 2020-05-08 Outpatient Moise WOOTENLETYNile [facility] [id number] Univers 11:00:00 11:00:00 ity [facility] 2020-05-01 2020-05-01 Outpatient [facility] [id number] Common 13:06:00 13:06:[address] [facility] 2020-04-23 2020-04-23 Outpatient [facility] [id number] Common 14:25:00 14:25:[address] [facility] 2020-04-16 2020-04-16 Outpatient [facility] [id number] Common 13:06:00 13:06:[address] [facility] 2020-04-16 2020-04-16 Outpatient [facility] [id number] Common 10:40:00 10:40:[address] [facility] 2020-04-13 2020-04-13 Outpatient [facility] [id number] Common 13:19:00 13:19:[address] [facility] 2020-04-13 2020-04-13 Outpatient [facility] [id number] Common 11:29:00 11:29:[address] [facility] 2020-04-01 2020-04-01 Outpatient Moise PABLO [facility] [id number] Univers 13:30:00 13:30:00 RAJ ity [facility] 2020-03-27 2020-03-27 Outpatient SABRINA TRAN [facility] [id number] Univers 09:20:00 09:20:00 ity [facility] 2020-01-17 2020-01-17 Outpatient SABRINA TRAN [facility] [id number] Univers 09:00:00 09:00:00 ity [facility] 2020-01-15 2020-01-15 Outpatient [facility] [id number] Common 12:20:00 12:20:[address] [facility] 2020-01-08 2020-01-08 Outpatient [facility] [id number] Common 08:53:00 08:53:[address] [facility] 2019-12-14 2019-12-14 Emergency X SARAITODDBib, [facility] ERT [id number] Univers 01:43:55 04:36:00 YANIQUE thao [facility] 2019-11-07 2019-11-07 Emergency X ANDRE III, [facility] E[facility] [id number] Univers 12:42:39 15:48:00 MARCELO jake [facility] 2019-10-28 2019-10-28 Outpatient [facility] [id number] Common 09:40:00 09:40:[address] [facility] 2019-10-25 2019-10-25 Outpatient Moise GREENFIELD [facility] [id number] Univers 07:47:33 07:47:00 HI thao [facility] 2019-09-03 2019-09-03 Outpatient [facility] [id number] Common 16:57:00 16:57:[address] [facility] 2019-08-27 2019-08-27 Outpatient [facility] [id number] Common 08:40:00 08:40:[address] [facility] 2019-08-22 2019-08-22 Outpatient [facility] [id number] Common 09:20:00 09:20:[address] [facility] 2019-08-05 2019-08-05 Outpatient [facility] [id number] Common 16:00:00 16:00:[address] [facility] 2019-03-01 2019-03-01 Outpatient [facility] [id number] Common 09:40:00 09:40:[address] [facility] 2019-01-25 2019-01-25 Outpatient [facility] [id number] Common 09:30:00 09:30:[address] [facility] 2018-10-26 2018-10-26 Outpatient [facility] [id number] Common 09:30:00 09:30:[address] [facility] 2018-07-27 2018-07-27 Outpatient [facility] [id number] Common 10:15:00 10:15:[address] [facility] 2018-05-01 2018-05-01 [facility] [id number] [place] 09:15:00 09:15:00 t; ALFREDO, Division of Ph jai EUGENE M.D. Medical ans Trace FUENTES M.Kehsia 2018-05-01 2018-05-01 [facility] [id number] [place] 08:45:00 08:45:00 t; ALONZO GONZALES, Division of Geovannai ALONZO WAGNER M.D. Medical ans [facility] 2018-04-27 2018-04-27 Outpatient [facility] [id number] Common 10:15:00 10:15:[address] [facility] 2017-05-08 2017-05-08 CHRISTINE Dorman [facility] [id number] [place] 09:00:00 09:00:00 t; Geovanna FUENTES i, M.D. ans JOSHUA, M.D. 2017-02-28 2017-02-28 CHRISTINE Dorman [facility] [id number] [place] 09:45:00 09:45:00 t; Geovanna FUENTES i, M.D. ans JOSHUA, M.D. 2017-02-28 2017-02-28 CHRISTINE Cowan [facility] [id number] [place] 09:45:00 09:45:00 t; CHRISTIAN, Akilah WOODS M.D. ans M.D. 2017-02-28 2017-02-28 [facility], [facility] UTP [id number] [place] 09:30:00 09:30:00 Reji Weiss ans HOPE, M.D. Results Test Description Test Time Test Comments Results Result Comments Source HIV 1/2 AG-AB WITH REFLEX 2022-08-17 17:57:25 Test Item Value Reference Range Interpretation Comme nts HIV Semi-quantitative (test code = Negative Negative 74876-0) [place] (test code = [place]) Non-reactive for HIV-1 antigen and HIV-1/HIV-2 antibodies. ?No laboratory evidence of HIV infection. ?Repeat in 2-4 weeks if acute HIV infection is suspected. [facility] METABOLIC PANEL (NA, K, CL, CO2, GLUCOSE, BUN, CREATININE, CA)2022-08-17 17:21:19 Test Item Value Reference Range Interpretation Comments NA (test code = 142 mmol/L 135-145 6483800758) K (test code = 4.9 mmol/L 3.5-5 2675089135) CL (test code = 106 mmol/L 98-108 8553832182) CO2 TOTAL (test code = 21 mmol/L 23-31 L 7792097141) AGAP (test code = 2-16 5666579358) BUN (test code = 25 mg/dL 7-23 H 9500066917) GLUCOSE (test code = 95 mg/dL 70-110 5262296252) CREATININE (test code = 2.10 mg/dL 0.5-1.04 H 4201869572) CALCIUM (test code = 9.8 mg/dL 8.6-10.6 9282789075) eGFR (test code = mL/min/1.73m2 4459069189) [place] (test code = [place]) Association of [...] tests). Lab Interpretation Abnormal (test code = 16877-0) [facility] 17:20:59 Test Item Value Reference Range Interpretation Comments PHOSPHORUS (test code = 2436625063) 3.6 mg/dL 2.5-5 Lab Interpretation (test code = Normal 88041-5) [facility] [id number] 17:20:59 Test Item Value Reference Range Interpretation Comments URIC ACID (test code = 2257060819) 8.5 mg/dL 2.9-6 H Lab Interpretation (test code = Abnormal 39188-1) [facility] [id number] 15:27:41 Test Item Value Reference Range Interpretation Comments WBC (test code = See_Comment [Automated 1481-2) message] The sy stem which generated this result transmitted reference range : 4.30 - 11.10 10*3/?L. The reference range was not used to interpret this result as normal/abnormal . RBC (test code = See_Comment [Automated 492-7) message] The sy stem which generated this [...] RDW-SD (test code = 42.8 fL 39-49.9 24184-4) RDW-CV (test code = 12.3 % 12-15.5 788-0) PLT (test code = See_Comment H [Automated 777-3) message] The sy stem which generated this result transmitted reference range : 166 - 358 10*3/ ?L. The reference r tabitha was not used to interpret this result as normal/abnormal . MPV (test code = 9.5 fL 9.5-12.9 40635-0) NRBC/100 WBC (test See_Comment [Automat ed code = 1793269604) message] The system which generated this result transmitted reference range : 0.0 - 10.0 /100 WBCs. The refer ence range was not u sed to interpret th is result as normal/abnormal . NRBC x10^3 (test code See_Comment [Auto mated = 7380254549) message] The s ystem which generated this result transmitted reference range : 10*3/?L. The reference range was not used to interpret this result as normal/abnormal . GRAN MAT (NEUT) % 68.1 % (test code = 770-8) IMM GRAN % (test code 0.70 % = 4340707934) LYMPH % (test code = 24.1 % 736-9) MONO % (test code = 6.0 % 5905-5) EOS % (test code = 0.6 % 713-8) BASO % (test code = 0.5 % 706-2) GRAN MAT x10^3(ANC) 5.47 10*3/uL 1.88-7.09 (test code = 9872165985) IMM GRAN x10^3 (test 0.06 10*3/uL 0-0.06 code = 8536421533) LYMPH x10^3 (test code 1.94 10*3/uL 1.32-3.29 = 731-0) MONO x10^3 (test code 0.48 10*3/uL 0.33-0.92 = 742-7) EOS x10^3 (test code = 0.05 10*3/uL 0.03-0.39 711-2) BASO x10^3 (test code 0.04 10*3/uL 0.01-0.07 = 704-7) Lab Interpretation Abnormal (test code = 80214-7) [facility], THIRD [id number] 05:36:56 Test Item Value Reference Range Interpretation Comments TSH, THIRD 2.460 UIU/ML 0.400-4.100 UNLESS OTHERWI SE GENERATION (test INDICATED, ALL TESTING code = 2821) [facility], [facility] [address] [place] [id number] [place] [address] DIRECTOR: ARNIE HAYES M.D. [place] NUMBER [id number] CAP ACCREDITATION N O. [id number] COMPREHENSIVE METABOLIC [id number] 03:24:51 Test Item Value Reference Range Interpretation Comments GLUCOSE (test code = 104 MG/DL 70-99 H 2216) BUN (test code = 33 MG/DL 6-20 H 2207) CREATININE (test 1.95 MG/DL 0.60-1.30 H code = 2214) eGFR (2020 CKD-EPI) 35 ML/MIN/1.73 >60 L (test code = 86972) CALC BUN/CREAT (test 17 RATIO 6-28 code = 2235) SODIUM (test code = 140 MEQ/L 930-953 6351) POTASSIUM (test code 4.2 MEQ/L 3.5-5.4 = [...] MG/DL See_Comment [Automated message] (test code = 2207) The syste m which generated this result transmit christian reference range : <=1.2. The refe rence range was not u sed to interpret th is result as normal/abnormal . ALKALINE PHOSPHATASE 134 U/L 40-114 H (test code = 2204) AST (test code = 12 U/L 9-40 2217) ALT (test code = 11 U/L 5-40 2218) FERRITIN [id number] 19:05:22 Test Item Value Reference Range Interpretation Comments FERRITIN (test code = 203.0 ng/mL 6.0-137.0 H 0530794933) [place] (test code = [place]) Biotin has been reported to cause a negative bias, interpret results relative to patient's use of biotin. Lab Interpretation (test Abnormal code = 11921-8) [facility] IRON BINDING [id number] 18:37:34 Test Item Value Reference Range Interpretation Comments TIBC (test code = 4965102205) 271 ug/dL 250-410 Lab Interpretation (test code = Normal 29964-1) [facility]. METABOLIC PANEL (31044)2021-12-24 18:27:10 Test Item Value Reference Range Interpretation Comments NA (test code = 140 mmol/L 135-145 3065938051) K (test code = 4.7 mmol/L 3.5-5.0 9063653088) CL (test code = 108 mmol/L 98-108 0327910931) CO2 TOTAL (test code = 21 mmol/L 23-31 L 7872256085) AGAP (test code = 2-16 0896130221) BUN (test code = 22 mg/dL 7-23 0465871729) GLUCOSE (test code = 83 mg/dL 70-110 9886471478) CREATININE (test code = 2.00 mg/dL 0.50-1.04 H 7959945906) TOTAL BILI (test code = 0.4 mg/dL 0.1-1.7 5740115557) CALCIUM (test code = 9.7 mg/dL 8.6-10.6 9756315866) T PROTEIN (test code = 8.4 g/dL 6.3-8.2 H 5131311471) ALBUMIN (test code = 4.6 g/dL 3.5-5.0 1243658797) ALK PHOS (test code = 125 U/L 34-122 H 9645954196) ALTv (test code = 13 U/L 5-35 1742-6) AST(SGOT) (test code = 20 U/L 13-40 8731176877) eGFR (test code = mL/min/1.73m2 4716116412) [place] (test code = [place]) Association of [...] tests). Lab Interpretation Abnormal (test code = 43839-2) [facility] WITH [id number] 18:10:27 Test Item Value Reference Range Interpretation Comments WBC (test code = See_Comment [Automated 6690-2) message] The sy stem which generated this [...] RDW-SD (test code = 42.7 fL 39.0-49.9 95480-0) RDW-CV (test code = 12.4 % 12.0-15.5 788-0) PLT (test code = See_Comment H [Automated 777-3) message] The sy stem which generated this result transmitted reference range : 166 - 358 10*3/ ?L. The reference r tabitha was not used to interpret this result as normal/abnormal . MPV (test code = 9.9 fL 9.5-12.9 78540-8) NRBC/100 WBC (test See_Comment [Automat ed code = 9382105559) message] The system which generated this result transmitted reference range : 0.0 - 10.0 /100 WBCs. The refer ence range was not u sed to interpret th is result as normal/abnormal . NRBC x10^3 (test code <0.01 See_Comment [Auto mated = 9244057376) message] The s ystem which generated this result transmitted reference range : 10*3/?L. The reference range was not used to interpret this result as normal/abnormal . GRAN MAT (NEUT) % 66.2 % (test code = 770-8) IMM GRAN % (test code 1.20 % = 0073247914) LYMPH % (test code = 24.3 % 736-9) MONO % (test code = 7.1 % 5905-5) EOS % (test code = 0.8 % 713-8) BASO % (test code = 0.4 % 706-2) GRAN MAT x10^3(ANC) 7.14 10*3/uL 1.88-7.09 H (test code = 6161894799) IMM GRAN x10^3 (test 0.13 10*3/uL 0.00-0.06 H code = 2994300000) LYMPH x10^3 (test code 2.62 10*3/uL 1.32-3.29 = 731-0) MONO x10^3 (test code 0.76 10*3/uL 0.33-0.92 = 742-7) EOS x10^3 (test code = 0.09 10*3/uL 0.03-0.39 711-2) BASO x10^3 (test code 0.04 10*3/uL 0.01-0.07 = 704-7) Lab Interpretation Abnormal (test code = 34189-6) [facility]. Metabolic Panel (14) ([facility])2020-10-22 00:00:00 Test Item Value Reference Range Interpretation Comments Glucose (test code = 2345-7) 83 65-99 BUN (test code = 3094-0) 14 6-20 Creatinine (test code = 2160-0) 1.10 0.57-1.00 eGFR If NonAfricn Am (test code = 68 >59 00788-2) eGFR If Africn Am (test code = 07482-6) 78 >59 BUN/Creatinine Ratio (test code = 08-05 3097-3) Sodium (test code = 2951-2) 140 134-144 Potassium (test code = 2823-3) 4.9 3.5-5.2 Chloride (test code = 2075-0) 106 96-106 Carbon Dioxide, Total (test code = -2027-) Calcium (test code = 65967-2) 9.6 8.7-10.2 Protein, Total (test code = 2885-2) 7.6 6.0-8.5 Albumin (test code = 1751-7) 4.3 3.9-5.0 Globulin, Total (test code = 52795-9) 3.3 1.5-4.5 A/G Ratio (test code = 1759-0) 1.3 1.2-2.2 Bilirubin, Total (test code = 1975-2) 0.2 0.0-1.2 Alkaline Phosphatase (test code = 115 39-117 6768-6) AST (SGOT) (test code = 1920-8) 30 0-40 ALT (SGPT) (test code = 1742-6) 32 0-32 CBC With Differential/[id number] 00:00:00 Test Item Value Reference Range Interpretation [...] Granulocytes (test code = 1 Not Estab. 30249-9) Immature Grans (Abs) (test code = 0.1 0.0-0.1 85826-3) NRBC (test code = 45841-6) Hematology Comments: (test code = 69018-0) [O] Urine Dipstick (In Office)2018-05-01 10:25:00 Test Item Value Reference Range Interpretation Comments LEUKOCYTES (test code = Negative N LEUKOCYTES) NITRITE; Normal (test code = Negative N 48800-5) UROBILINOGEN; Normal (test code 0.2 N = 35105-4) PROTEIN (test code = 14281-2) 30 pH (test code = pH) 7.0 N URINE BLOOD (test code = Trace-Intact 67203-0) SPECIFIC GRAVITY; Normal (test 1.020 N code = 2965-2) KETONES; Normal (test code = Negative N 73698-2) BILIRUBIN; Normal (test code = Neative N 74103-3) GLUCOSE; Normal (test code = Negative N 1547-9) [facility]"
[2023-05-15 18:57] LABS: Specific Gravity 1.015 (1.005-1.030)
[2023-05-15 19:01] LABS: Specific Gravity 1.015 (1.005-1.030); Urine Bacteria None Seen /HPF (<20); Urine Bilirubin NEGATIVE (Negative); Urine Blood Negative (Negative); Urine Clarity Clear (Clear); Urine Color Colorless (Yellow); Urine Glucose NEGATIVE (Negative); Urine Mucus Slight /HPF (None Seen); Urine Protein 1+ (Negative); Urine RBC <5 /HPF (None Seen); Urine Urobilinogen Normal (Normal)
[2023-05-15 19:09] LABS: Absolute Lymphocytes (CBC) 2.8 K/uL (0.7-4.9); Hematocrit 35.3 % (36.0-45.0); Lymphocytes % 27.7 % (15.3-44.8); MCV 92.2 fL (80-100); MPV 7.8 fL (7.6-11.3); RBC Red Blood Cell Count 3.83 M/uL (3.86-4.86)
[2023-05-15 19:21] LABS: Albumin 3.8 g/dL (3.4-5.0); Bilirubin Total 0.1 mg/dL (0.2-1.0); Potassium 4.1 mEq/L (3.5-5.1); Protein, Total 8.7 g/dL (6.4-8.2)
--- NOTE | 2023-05-15 20:43 | RAD REPORT ---
EXAM DESCRIPTION: CT - Abdomen Pelvis Wo Contrast - 05/15/2023 8:35 pm CLINICAL HISTORY: Abdominal pain. Right groin pain COMPARISON: Abdomen Pelvis Wo Contrast dated 09/06/2021; Abdomen Pelvis W Contrast dated 03/04/20 TECHNIQUE: CT imaging of the abdomen and pelvis was performed without contrast. Solid organ, bowel a nd vascular assessment is limited due to lack of IV and oral contrast. All CT scans are performed using dose optimization technique as appropriate and may include automated exposure control or mA/KV adjustment according to patient size. FINDINGS: The lower lung eubanks are clear. The liver, spleen, pancreas, adrenal glands are within normal limits for a limited non-contrast exami nation.Right nephrectomy noted. 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 No bowel obstruction, free air, free fluid or abscess. Small fat containing umbilical hernia. Nonvisu alized appendix. Nonspecific fat stranding right groin with a few mildly enlarged lymph nodes. The osseous structures are within normal limits. IMPRESSION: Mild localized inflammation right groin with several likely reactive lymph nodes. Findin gs nonspecific. A limited non-contrast examination was performed as detailed.
--- NOTE | 2023-05-15 21:08 | ER ---
Nurse's Notes [facility] Name: Kitty Wall Age: 32 yrs Sex: Female : 1990 Arrival Date: 05/15/2023 Time: 17:36 Bed 15 Private MD: Diagnosis: Right groin lymphadenopathy Presentation: 05/15 18:07 Chief complaint: Patient states: "I woke up this morning with my right groin hurting mb9 and it looks bruised. The pain radiates down my right leg.". Coronavirus screen: Vaccine status: Patient reports receiving the 2nd dose of the covid vaccine. Ebola Screen: No symptoms or risks identified at this time. Initial Sepsis Screen: Does the patient meet any 2 criteria? No. Patient's initial sepsis screen is negative. Does the patient have a suspected source of infection? No. Patient's initial sepsis screen is negative. Risk Assessment: Do you want to hurt yourself or someone else? Patient reports no desire to harm self or others. Onset of symptoms was May 15, 2023. 18:07 Method Of Arrival: Ambulatory mb9 18:07 Acuity: GULSHAN 3 mb9 Triage Assessment: 18:50 General: Appears in no apparent distress. Behavior is calm, cooperative, appropriate bp for age. Pain: Complains of pain in abdomen. EENT: No deficits noted. Neuro: No deficits noted. Cardiovascular: No deficits noted. Respiratory: No deficits noted. GI: Reports upper abdominal pain. : No signs and/or symptoms were reported regarding the genitourinary system. Derm: No deficits noted. Musculoskeletal: No deficits noted. Historical: - Allergies: 18:08 No Known Allergies; mb9 - Home Meds: 18:08 None [Active]; mb9 - PMHx: 18:08 Anxiety; Bipolar disorder; BRAIN TUMOR; Depression; Kidney tumor; Schizophrenia; mb9 Seizures; - PSHx: 18:08 Kidney tumor removed; Right Nephrectomy; mb9 - Immunization history:: Adult Immunizations up to date. - Social history:: Smoking status: Patient/guardian denies using tobacco, but has a distant history of tobacco abuse. Screenin:50 [facility] ED Fall Risk Assessment (Adult) History of falling in the last 3 months, bp including since admission No falls in past 3 months (0 pts). 18:51 Abuse screen: Denies threats or abuse. Denies injuries from another. Nutritional bp screening: No deficits noted. Tuberculosis screening: No symptoms or risk factors identified. Assessment: 18:51 General: SEE TRIAGE NOTE. bp 19:04 Reassessment: Patient and/or family updated on plan of care and expected duration. Pain vc1 level reassessed. Patient is alert, oriented x 3, equal unlabored respirations, skin warm/dry/pink. Assumed care from ANN MARIE Caicedo. 20:00 Reassessment: Patient appears in no apparent distress at this time. No changes from vc1 previously documented assessment. Patient and/or family updated on plan of care and expected duration. Pain level reassessed. Patient is alert, oriented x 3, equal unlabored respirations, skin warm/dry/pink. 21:00 Reassessment: Patient and/or family updated on plan of care and expected duration. Pain vc1 level reassessed. Patient is alert, oriented x 3, equal unlabored respirations, skin warm/dry/pink. Patient states feeling better. Patient states symptoms have improved. Vital Signs: 18:07 BP 130 / 89; Pulse 84; Resp 18; Temp 98.2(O); Pulse Ox 100% ; Weight 74.84 kg; Height 5 mb9 ft. 1 in. ; 19:13 BP 126 / 77; Pulse 74; Resp 18; Pulse Ox 100% ; vc1 20:00 BP 115 / 60; Pulse 75; Resp 18; Pulse Ox 100% ; vc1 21:00 BP 114 / 62; Pulse 73; Resp 17; Pulse Ox 100% ; vc1 18:07 Body Mass Index 31.18 (74.84 kg, 154.94 cm) mb9 ED Course: 17:38 Patient arrived in ED. mr 18:03 Sascha Kimble, RN is Primary Nurse. bp 18:07 Arm band placed on. mb9 18:08 Triage completed. mb9 18:14 Hardy Rich MD is Attending Physician. kdr 18:50 Inserted saline lock: 22 gauge in right antecubital area, using aseptic technique. bp Blood collected. 18:51 Patient has correct armband on for positive identification. Bed in low position. Call bp light in reach. Side rails up X2. 20:37 Abdomen In Process Unspecified. EDMS 20:40 No provider procedures requiring assistance completed. vc1 21:19 IV discontinued, intact, bleeding controlled, No redness/swelling at site. Pressure vc1 dressing applied. Administered Medications: 21:16 Drug: Cephalexin PO 500 mg Route: PO; vc1 21:16 Follow up: Response: Medication administered at discharge. vc1 Medication: 18:51 VIS not applicable for this client. bp Outcome: 21:07 Discharge ordered by . kdr 21:19 Discharged to home ambulatory, with family. vc1 21:19 Condition: good 21:19 Discharge instructions given to patient, Instructed on discharge instructions, follow up and referral plans. medication usage, Demonstrated understanding of instructions, follow-up care, medications, Prescriptions given X 1. 21:19 Patient left the ED. vc1 Signatures: Dispatcher [employer] EDMS Hardy Rich MD MD kdr Vinayak, Sascha López, RN RN bp Jenifer Tucker RN RN vc1 Patricia Langston RN RN mb9 Corrections: (The following items were deleted from the chart) 18:36 18:07 Acuity: GULSHAN 4 mb9 mb9 20:42 20:41 Condition: good vc1 vc1 20:42 20:41 Discharged to home ambulatory, vc1 vc1 20:42 20:41 Discharge instructions given to patient, Instructed on discharge instructions, vc1 follow up and referral plans. medication usage, Demonstrated understanding of instructions, follow-up care, medications, Prescriptions given X 1, vc1 20:44 20:00 Reassessment: Patient and/or family updated on plan of care and expected vc1 duration. Pain level reassessed. Patient states feeling better. Patient states symptoms have improved. vc1 20:48 20:40 IV discontinued, intact, bleeding controlled, No redness/swelling at site. vc1 Pressure dressing applied, vc1 20:48 20:00 BP 116 / 85; Pulse 76bpm; Resp 18bpm; Pulse Ox 100%; vc1 vc1
--- NOTE | 2023-05-15 21:08 | EDPHYS ---
Physician Documentation [facility] Name: Kitty Wall Age: 32 yrs Sex: Female : 1990 Arrival Date: 05/15/2023 Time: 17:36 Bed 15 Private MD: ED Physician Hardy Rich HPI: 05/15 21:05 This 32 yrs old Female presents to ER via Ambulatory with complaints of kdr Abdominal Pain. 21:05 Right groin pain is started today. Onset: The symptoms/episode began/occurred today. kdr Severity of symptoms: At their worst the symptoms were mild just prior to arrival, in the emergency department the symptoms are unchanged. The patient has not experienced similar symptoms in the past. The patient has not recently seen a physician. Historical: - Allergies: 18:08 No Known Allergies; mb9 - Home Meds: 18:08 None [Active]; mb9 - PMHx: 18:08 Anxiety; Bipolar disorder; BRAIN TUMOR; Depression; Kidney tumor; Schizophrenia; mb9 Seizures; - PSHx: 18:08 Kidney tumor removed; Right Nephrectomy; mb9 - Immunization history:: Adult Immunizations up to date. - Social history:: Smoking status: Patient/guardian denies using tobacco, but has a distant history of tobacco abuse. ROS: 21:05 Constitutional: Negative for fever, chills, and weight loss, Eyes: Negative for injury, kdr pain, redness, and discharge, ENT: Negative for injury, pain, and discharge, Neck: Negative for injury, pain, and swelling, Cardiovascular: Negative for chest pain, palpitations, and edema, Respiratory: Negative for shortness of breath, cough, wheezing, and pleuritic chest pain, Back: Negative for injury and pain, : Negative for injury, bleeding, discharge, and swelling, MS/Extremity: Negative for injury and deformity, Skin: Negative for injury, rash, and discoloration, Neuro: Negative for headache, weakness, numbness, tingling, and seizure activity. Psych: Negative for depression, anxiety, suicide ideation, homicidal ideation, and hallucinations, Allergy/Immunology: Negative for hives, rash, and allergies, Endocrine: Negative for neck swelling, polydipsia, polyuria, polyphagia, and marked weight changes, Hematologic/Lymphatic: Negative for swollen nodes, abnormal bleeding, and unusual bruising. 21:05 Abdomen/GI: Positive for abdominal pain, Right groin pain to palpation. Exam: 21:05 Constitutional: This is a well developed, well nourished patient who is awake, alert, kdr and in no acute distress. Head/Face: Normocephalic, atraumatic. Eyes: Pupils equal round and reactive to light, extra-ocular motions intact. Lids and lashes normal. Conjunctiva and sclera are non-icteric and not injected. Cornea within normal limits. Periorbital areas with no swelling, redness, or edema. Neck: Trachea midline, no thyromegaly or masses palpated, and no cervical lymphadenopathy. Supple, full range of motion without nuchal rigidity, or vertebral point tenderness. No Meningismus. Chest/axilla: Normal chest wall appearance and motion. Nontender with no deformity. No lesions are appreciated. Cardiovascular: Regular rate and rhythm with a normal S1 and S2. No gallops, murmurs, or rubs. Normal PMI, no JVD. No pulse deficits. Respiratory: Lungs have equal breath sounds bilaterally, clear to auscultation and percussion. No rales, rhonchi or wheezes noted. No increased work of breathing, no retractions or nasal flaring. Back: No spinal tenderness. No costovertebral tenderness. Full range of motion. Skin: Warm, dry with normal turgor. Normal color with no rashes, no lesions, and no evidence of cellulitis. MS/ Extremity: Pulses equal, no cyanosis. Neurovascular intact. Full, normal range of motion. Neuro: Awake and alert, GCS 15, oriented to person, place, time, and situation. Cranial nerves II-XII grossly intact. Motor strength 5/5 in all extremities. Sensory grossly intact. Cerebellar exam normal. Normal gait. Psych: Awake, alert, with orientation to person, place and time. Behavior, mood, and affect are within normal limits. 21:05 Abdomen/GI: Inspection: abdomen appears normal, Bowel sounds: active, Palpation: soft, mild abdominal tenderness, Right groin lymphadenopathy. Vital Signs: 18:07 BP 130 / 89; Pulse 84; Resp 18; Temp 98.2(O); Pulse Ox 100% ; Weight 74.84 kg; Height 5 mb9 ft. 1 in. ; 19:13 BP 126 / 77; Pulse 74; Resp 18; Pulse Ox 100% ; vc1 20:00 BP 115 / 60; Pulse 75; Resp 18; Pulse Ox 100% ; vc1 21:00 BP 114 / 62; Pulse 73; Resp 17; Pulse Ox 100% ; vc1 18:07 Body Mass Index 31.18 (74.84 kg, 154.94 cm) 9 MDM: 21:05 Data reviewed: vital signs, nurses notes, lab test result(s), radiologic studies. kdr 21:07 Patient medically screened. [facility] 05/15 18:14 Order name: CBC with Diff; Complete Time: 19:49 kdr 05/15 18:14 Order name: CMP; Complete Time: 19:49 kdr 05/15 18:14 Order name: Lipase; Complete Time: 19:49 kdr 05/15 18:14 Order name: Test, Urine; Complete Time: 19:49 kdr 05/15 18:14 Order name: Urinalysis w/ reflexes; Complete Time: 19:49 kdr 05/15 20:24 Order name: Abdomen ; Complete Time: 21:04 [facility] 05/15 18:14 Order name: IV Saline Lock; Complete Time: 18:49 kdr 05/15 18:14 Order name: Labs collected and sent; Complete Time: 18:49 kdr Administered Medications: 21:16 Drug: Cephalexin PO 500 mg Route: PO; vc1 21:16 Follow up: Response: Medication administered at discharge. vc1 Disposition Summary: 05/15/23 21:07 Discharge Ordered Location: Home kdr Problem: new kdr Symptoms: have improved kdr Condition: Stable kdr Diagnosis - Right groin lymphadenopathy kdr Followup: kdr - With: Private Physician - When: 2 - 3 days - Reason: If symptoms return, Further diagnostic work-up, Recheck today's complaints, Continuance of care, Re-evaluation by your physician Discharge Instructions: - Discharge Summary Sheet kdr - Lymphadenopathy kdr Forms: - Medication Reconciliation Form kdr - Thank You Letter kdr - Antibiotic Education kdr - [email or web address] kdr Prescriptions: - Cephalexin 500 mg Oral Capsule - take 1 capsule by ORAL route every 8 hours for 7 days; 21 capsule; Refills: 0, kdr Product Selection Permitted Signatures: Dispatcher [facility] Hardy Rich MD MD kdr Jenifer Tucker RN RN vc1 Patricia Langston RN RN mb9 Corrections: (The following items were deleted from the chart) 20:24 18:35 Abdomen Pelvis W Con+CT.RAD.BRZ ordered. EDMS EDMS
[2023-05-15] MEDS ORDERED: CEPHALEXIN 250 MG CAP ONE (21:22)
[2023-05-15 21:39] VITALS: TEMP 98.2; O2SAT 100
[2023-05-15 21:44] VITALS: BP 114/62
== END 2023-05-15 21:19 | disposition home or self-care (01) ==
LOC: ER 17:36
DX: R59.0 Localized enlarged lymph nodes (principal)
CPT/HCPCS: 36415; 74176; 80053; 81001; 81025; 83690; 85025; 99284

== ENCOUNTER 2023-05-23 13:43 | Inpatient (IN) | payer OTHER ==
--- OUTSIDE RECORDS SUMMARY | 2023-05-23 13:54 | XMS REPORT | Continuity of Care Document ---
:1990 Author Organization [facility] t Address [address] [place] [address] Care Team Providers Name Role Phone Diana HUERTA, Preet Harvey Primary Care Physician [phone] Shantelle Bates Attending Clinician Unavailable JOSHUA LOPEZ Attending Clinician Unavailable JOSHUA LOPEZ Attending Clinician Unavailable PATRICK TILLMAN Attending Clinician Unavailable Visit, [place] Nurse Attending Clinician Unavailable Alberta Angulo Attending Clinician [phone] ALBERTA HURST Attending Clinician Unavailable [facility], [facility] Attending Clinician Unavailable Tari Trivedi MD Attending Clinician TARI TRIVEDI Attending Clinician Unavailable Doctor Unassigned, [place] Attending Clinician Unavailable PHILLIP, AVE L Attending [...] Attending Clinician PREET ORTIZ Attending Clinician Unavailable [facility] Attending Clinician Unavailable Jean Pierre OSMAN, Pritesh [...] Unavailable ABUNDIO OLIVA Attending Clinician Unavailable Call, Counts Include [facility] Phone Attending Clinician Unavailable GIL CORTEZ [...] Unavailable Jamey Higginbotham DO Attending Clinician Nurse, [facility] Attending Clinician Unavailable YOVANNY CHOI [...] Effective Date Expiration Date Bib baeza TOBIN [id number] 2015 HEALTHCARE 00:00:00 MEDICAID RUDD C1 [id number] 2018 Common HEALTHCARE 00:00:00 [facility] RUDD C1 [id number] 2018 Common HEALTHCARE 00:00:00 [facility] RUDD C1 [id number] 2018 Common HEALTHCARE 00:00:00 [facility] RUDD C1 [id number] 2018 Common HEALTHCARE 00:00:00 [facility] TOBIN Srinivasan [id number] 2018 Common HEALTHCARE 00:00:00 [facility] TOBIN Srinivasan [id number] 2018 Common HEALTHCARE 00:00:00 [facility] TOBIN Srinivasan [id number] 2018 Common HEALTHCARE 00:00:00 [facility] TOBIN Srinivasan [id number] 2018 Common HEALTHCARE 00:00:00 [facility] TOBIN Srinivasan [id number] 2018 Common HEALTHCARE 00:00:00 [facility] Problems Condition Condition Condition Status Onset Resolution Last Treating Co mments Source Name Details Category Date Date Treatment Clinician Date Other Other Disease Active Univers general general -27 [place] of [place] and advice and advice 00 Md dical for for Branch contracept contracept ric [...] 2020-11 Uni vers 0-10 ity of 00:00: [address] Vaginal Vaginal Disease Active Univers discharge discharge 9-24 ity of 00:00: [address] Dysuria Dysuria Disease Active Univers 9-24 ity of 00:00: [address] Encounter Encounter Disease Active Uni vers [...] Added automatic ally from request for surgery [id number] Acute left Acute left Disease Active U devangers flank pain flank pain 6-29 it y of 00:00: Medical Branch BRYAN (acute BRYAN (acute Disease Active U nivers kidney kidney 6-25 ity of injury) injury) 00:00: Medical Branch RLS RLS Disease Active Univers (restless (restless 2-22 ity of legs legs 00:00: [place] syndrome) syndrome) [facility] Branch Anxiety Anxiety Disease Active Univers 2-22 [...] Univers fatigue fatigue 0-16 ity of 00:00: [place] [facility] Depression Depression Disease Active Overview [...] urgent/em ergent care including calling Suicide Hotline ([phone]) or 914.Follo w up in one month with Psycholog [...] nodules nodules 12-05 ity of 00:00: [place] [facility] Renal mass Renal mass Disease Active 2018-11 Overview : Univers -20 Formattin ity of 00:00: g of this [place] note Medical might be Branch different from the original. Added automatic ally from request for surgery [id number] Angiomyoli Angiomyoli Disease Active 2018-11 Overview : Univers guevara of guevara of 20 Formattin ity o f both both 00:00: g of this [place] kidneys kidneys note Medical might be Branch different from the original. Added automatic ally from request for surgery [id number] Obesity Obesity Disease Active 2018-11 Univers (BMI (BMI 1-15 ity of 30-39.9) 30-39.9) 00:00: [place] [facility] Mass of Mass of Disease Active 2018-11 Univers right right 1-14 ity of kidney kidney 00:00: [place] [address] Medical Branch Seizure Seizure Problem Active Common disorder disorder [facility] Back pain Back pain Problem Active Com mon [facility] Obesity Obesity Problem Active Common [facility] Insomnia Insomnia Problem Active Commo n [facility] 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 - [facility] [id number] BCP ( Problem Active Com mon control Spirit pills) - [facility] initiation [facility] [id number] Exposure Problem Active Comm on to Spirit sexually - [facility] transmitte [facility] (STD) [facility] 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 Spir it - [facility] [id number] Acne Problem Active Common rosacea [facility] [id number] Gastroesop Problem Active Co mmon hageal Spirit reflux - [facility] disease [facility] esophagiti Medica s [place] [id number] Uses Problem Active Co mmon control [facility] Onychomyco Onychomyco Problem Active C ommon sis sis [facility] Mental Mental Problem Active UT retardatio retardatio Ph ysici n n ans Panic Panic Problem Active Common disorder attacks [facility] [id number] Seasonal Problem Active Comm on allergies [facility] [id number] Problem Active Com mon test Spirit performed, - [facility] [place] Angiomyoli Angiomyoli Problem Active U T guevara [...] ALLERGIE Class ity of S [place] [facility] Social History Social Habit Start Date Stop Date Quantity Comments Source History SDIA University o f Alcohol Std [place] Medical Drinks Branch History SDIA University o f Alcohol Binge [place] Medic al Branch History [facility] University o f Alcohol Comment [place] Med ical Branch History of Common Spirit - Tobacco Use [facility] Sex Assigned At Common Sp escobar - [facility] Alcohol intake 2023-04-18 2023-04-18 Lifetime University of 00:00:00 00:00:00 non-drinker [facility] (finding) Branch Exposure to 2023-03-12 2023-03-22 Not sure University SARS-CoV-2 00:00:00 07:37:00 [facility] (event) Branch Tobacco use and 2022-08-11 2022-08-11 Smokeless tobacco Un iversity of exposure 00:00:00 00:00:00 non-user [facility] Branch Education 2021-05-07 2021-05-07 13 [facility] 00:00:00 00:00:00 [place] [facility] History SDIA 2020-01-17 2020-01-17 1 University o f Alcohol Frequency 00:00:00 00:00:00 [facility] edical Branch History SDIA 2019-09-26 2019-09-26 5 University o f Financial 00:00:00 00:00:00 [place] [facility] History [facility] Food 2019-09-26 2019-09-26 1 Univers ity of Worry 00:00:00 00:00:00 [place] [facility] History [facility] Food 2019-09-26 2019-09-26 1 Univers ity of Scarcity 00:00:00 00:00:00 [place] [facility] History SDIA 2019-09-26 2019-09-26 2 University o f Transport Med 00:00:00 00:00:00 [place] Medic al Branch History [facility] 2019-09-26 2019-09-26 2 University o f Transport Non-Med 00:00:00 00:00:00 [facility] Branch Smoking Status Start Date Stop Date Source Never smoked tobacco [facility] Medications Ordered Filled Start Stop Current Ordering Indication Dosage Frequency Signature Comments Components Source Medication Medication Date Date Medication? Clinician (SIG) Name Name metoprolol Yes [id number] 25mg Take 1 U nivers succinate 5-31 tablet by ity o f XL 25 mg 24 00:00: mouth [place] hr tablet 00 the Medical morning. Branch metoprolol Yes [id number] 25mg Take 1 U nivers succinate 5-31 tablet by ity o f XL 25 mg 24 00:00: [place] hr tablet 00 the Medical morning. Branch metoprolol Yes [id number] 25mg Take 1 U nivers succinate 5-31 tablet by ity o f XL 25 mg 24 00:00: [place] hr tablet 00 the Medical morning. Branch metoprolol 3-0 Yes [id number] 25mg Take 1 U nivers succinate 5-31 tablet by ity o f XL 25 mg 24 00:00: [place] tablet 00 the Medical morning. Branch metoprolol 2023-0 Yes [id number] 25mg Take 1 U nivers succinate 5-31 tablet by ity o f XL 25 mg 24 00:00: mouth [place] hr tablet 00 the Medical morning. Branch metoprolol 3-0 Yes [id number] 25mg Take 1 U nivers succinate 5-31 tablet by ity o f XL 25 mg 24 00:00: mouth [place] hr tablet 00 the Medical morning. Branch metoprolol 3-0 Yes [id number] 25mg Take 1 U nivers succinate 5-31 tablet by ity o f XL 25 mg 24 00:00: [place] hr tablet 00 the Medical morning. Branch medroxyPROG 2022-0 2023- No [id number] 150mg Univers ESTERone 01-31- ity of (DEPO-PROVE 19:45: 20:44 [place] RA) syringe 00 :00 Medical 150 mg Branch medroxyPROG 2022-0 2023- No [id number] 150mg 150 mg, Univers ESTERone 01-31 Intramuscu ity of (DEPO-PROVE 19:45: 20:44 [facility], [place] RA) syringe 00 :00 [id number], Med ical 150 mg 4 doses, Branch First dose on Mon01/31/23 at 1445, Last dose on Mon10/10/23 at 1445, Routine medroxyPROG 2022-2023- No [id number] 150mg Univers ESTERone 01-31-20 ity of (DEPO-PROVE 19:45: 20:44 [place] RA) syringe 00 :00 Medical 150 mg Branch medroxyPROG 2022-2023- No [id number] 150mg 150 mg, Univers ESTERone 01-31 Intramuscu ity of (DEPO-PROVE 19:45: 20:44 lar, [place] RA) syringe 00 :00 [id number], Med ical 150 mg 4 doses, Branch First dose on Mon01/31/23 at 1445, Last dose on Mon10/10/23 at 1445, Routine medroxyPROG 3-0 4- No [id number] 150mg Univers ESTERone 3-21 02-20 ity of (DEPO-PROVE 19:45: 20:44 [place] RA) syringe 00 :00 Medical 150 mg Branch medroxyPROG 3-0 4- No [id number] 150mg Univers ESTERone 3-21 02-20 ity of (DEPO-PROVE 19:45: 20:44 [place] RA) syringe 00 :00 Medical 150 mg Branch medroxyPROG 2023-0 4- No [id number] 150mg Univers ESTERone 3-21 02-20 ity of (DEPO-PROVE 19:45: 20:44 [place] RA) syringe 00 :00 Medical 150 mg Branch medroxyPROG 2023-0 4- No [id number] 150mg Univers ESTERone 3-21 02-20 ity of (DEPO-PROVE 19:45: 20:44 [place] RA) syringe 00 :00 Medical 150 mg Branch medroxyPROG 3-0 4- No [id number] 150mg Univers ESTERone 3-21 02-20 ity of (DEPO-PROVE 19:45: 20:44 [place] RA) syringe 00 :00 Medical 150 mg Branch medroxyPROG 3-0 4- No [id number] 150mg Univers ESTERone 3-21 02-20 ity of (DEPO-PROVE 19:45: 20:44 [place] RA) syringe 00 :00 Medical 150 mg Branch medroxyPROG 3-0 4- No [id number] 150mg Univers ESTERone 3-21 02-20 ity of (DEPO-PROVE 19:45: 20:44 [place] RA) syringe 00 :00 Medical 150 mg Branch medroxyPROG 2023-0 4- No [id number] 150mg Univers ESTERone 3-21 02-20 ity of (DEPO-PROVE 19:45: 20:44 [place] RA) syringe 00 :00 Medical 150 mg Branch medroxyPROG 2023-0 4- No [id number] 150mg Univers ESTERone 3-21 02-20 ity of (DEPO-PROVE 19:45: 20:44 [place] RA) syringe 00 :00 Medical 150 mg Branch medroxyPROG 2023-0 2024- No [id number] 150mg Univers ESTERone 01-31 ity of (DEPO-PROVE 19:45: 20:44 [place] RA) syringe 00 :00 Medical 150 mg Branch medroxyPROG 2023- No [id number] 150mg 150 mg, Univers ESTERone 01-31 Intramuscu ity of (DEPO-PROVE 19:45: 20:44 lar, [place] RA) syringe 00 :00 [id number], Med ical 150 mg 4 doses, Branch First dose on Mon01/31/23 at 1445, Last dose on Mon10/10/23 at 1445, Routine medroxyPROG 2023- No [id number] 150mg Univers ESTERone 01-31 ity of (DEPO-PROVE 19:45: 20:44 [place] RA) syringe 00 :00 Medical 150 mg Branch medroxyPROG 2023- No [id number] 150mg 150 mg, Univers ESTERone 01-31 Intramuscu ity of (DEPO-PROVE 19:45: 20:44 lar, [place] RA) syringe 00 :00 [id number], Med ical 150 mg 4 doses, Branch First dose on Mon01/31/23 at 1445, Last dose on Mon10/10/23 at 1445, Routine medroxyPROG 2023- No [id number] 150mg Univers ESTERone 01-31 ity of (DEPO-PROVE 19:45: 20:44 [place] RA) syringe 00 :00 Medical 150 mg Branch medroxyPROG 2021-11- No [id number] 150mg Univers ESTERone 01-09 ity of (DEPO-PROVE 17:15: 16:20 [place] RA) syringe 00 :00 Medical 150 mg Branch medroxyPROG 2021-11- No [id number] 150mg 150 mg, Univers ESTERone 2-08 11- Intramuscu ity of (DEPO-PROVE 17:15: 16:20 lar, ONCE, [place] RA) syringe 00 :00 1 dose, On Me dical 150 mg e Branch 11/08/22 at 1115, Routine fluconazole 2021- No [id number] 150mg Take 1 Univers (DIFLUCAN) 08-11 tablet by ity of 150 mg 00:00: 04:59 [place] tablet 00 :00 now for 1 Medical dose. [place] fluconazole No [id number] 150mg Take 1 Univers (DIFLUCAN) 08-11 tablet by ity of 150 mg 00:00: 04:59 [place] tablet 00 :00 now for 1 Medical dose. [place] fluconazole No [id number] 150mg Take 1 Univers (DIFLUCAN) 08-11 tablet by ity of 150 mg 00:00: 04:59 [place] tablet 00 :00 now for 1 Medical dose. [place] fluconazole No [id number] 150mg Take 1 Univers (DIFLUCAN) 08-11 tablet by ity of 150 mg 00:00: 04:59 [place] tablet 00 :00 now for 1 Medical dose. [place] fluconazole No [id number] 150mg Take 1 Univers (DIFLUCAN) 08-11 tablet by ity of 150 mg 00:00: 04:59 [place] tablet 00 :00 now for 1 Medical dose. [place] fluconazole No [id number] 150mg Take 1 Univers (DIFLUCAN) 08-11 tablet by ity of 150 mg 00:00: 04:59 [place] tablet 00 :00 now for 1 Medical dose. [place] medroxyPROG No [id number] 150mg Univers ESTERone 08-09 ity of (DEPO-PROVE 17:30: 16:45 [place] RA) syringe 00 :00 Medical 150 mg [place] medroxyPROG 2021- No [id number] 150mg 150 mg, Univers ESTERone 08-09 Intramuscu ity of (DEPO-PROVE 17:30: 16:45 lar, ONCE, [place] RA) syringe 00 :00 1 dose, On Me dical 150 mg Rejie [place] 08/09/22 at 1230, Routine magnesium 2020-11- No Take by [facility] ers oxide 400 11-30 11-18 mouth. ity of mg 11:01: 00:00 Take 1 [place] magnesium 02 :00 tablet by Medic al Tab mouth as Branch needed for leg Cramps once a day magnesium 2020-11 Take by [facility] ers oxide 400 11-30 mouth. ity of mg 11:01: 00:00 Take 1 [place] magnesium 02 :00 tablet by Medic al Tab mouth as Branch needed for leg Cramps once a day medroxyPROG 2020-11 No 150mg 150 mg [facility] Intramuscu ity of 150 mg/mL 11:00: 00:00 [place] route [place] injection 49 :00 every 3 Medical (three) Branch months. medroxyPROG 2020-11 No 150mg 150 mg by [facility] Intramuscu ity of 150 mg/mL 11:00: 00:00 [place] route [place] injection 49 :00 every 3 Medical (three) Branch months. Lamotrigine 2020-11 Yes [id number] 1{tbl} Take 1 Univers 100 mg TbDL 1-18 tablet by ity of 00:00: mouth 2 [place] [address] (two) Medical times Branch daily. Lamotrigine 2020-11 Yes [id number] 1{tbl} Take 1 Univers 100 mg TbDL 1-18 tablet by ity of 00:00: mouth 2 [place] (two) Medical times Branch daily. Lamotrigine 2020-11 Yes [id number] 1{tbl} Take 1 Univers 100 mg TbDL 1-18 tablet by ity of 00:00: mouth 2 [place] (two) Medical times Branch daily. Lamotrigine 2020-11 Yes [id number] 1{tbl} Take 1 Univers 100 mg TbDL 1-18 tablet by ity of 00:00: mouth 2 [place] (two) Medical times Branch daily. Lamotrigine 2020-11 Yes [id number] 1{tbl} Take 1 Univers 100 mg TbDL 1-18 tablet by ity of 00:00: mouth 2 [place] (two) Medical times Branch daily. Lamotrigine 2020-11 Yes [id number] 1{tbl} Take 1 Univers 100 mg TbDL 1-18 tablet by ity of 00:00: mouth 2 [place] (two) Medical times Branch daily. Lamotrigine 2020-11 Yes [id number] 1{tbl} Take 1 Univers 100 mg TbDL 1-18 tablet by ity of 00:00: mouth (two) Medical times Branch daily. Lamotrigine 2020-11 Yes [id number] 1{tbl} Take 1 Univers 100 mg TbDL 1-18 tablet by ity of 00:00: mouth (two) Medical times Branch daily. Lamotrigine 2020-11 Yes [id number] 1{tbl} Take 1 Univers 100 mg TbDL 1-18 tablet by ity of 00:00: mouth (two) Medical times Branch daily. Lamotrigine 2020-11 Yes [id number] 1{tbl} Take 1 Univers 100 mg TbDL 1-18 tablet by ity of 00:00: mouth (two) Medical times Branch daily. Lamotrigine 2020-11 Yes [id number] 1{tbl} Take 1 Univers 100 mg TbDL 1-18 tablet by ity of 00:00: mouth [place] (two) Medical times Branch daily. Lamotrigine 2020-11 Yes [id number] 1{tbl} Take 1 Univers 100 mg TbDL 1-18 tablet by ity of 00:00: mouth [place] (two) Medical times Branch daily. Lamotrigine 2020-11 Yes [id number] 1{tbl} Take 1 Univers 100 mg TbDL 1-18 tablet by ity of 00:00: mouth [place] (two) Medical times Branch daily. Lamotrigine 2020-11 Yes [id number] 1{tbl} Take 1 Univers 100 mg TbDL 1-18 tablet by ity of 00:00: mouth (two) Medical times Branch daily. Lamotrigine 2020-11 Yes [id number] 1{tbl} Take 1 Univers 100 mg TbDL 1-18 tablet by ity of 00:00: mouth (two) Medical times Branch daily. Lamotrigine 2020-11 Yes [id number] 1{tbl} Take 1 Univers 100 mg TbDL 1-18 tablet by ity of 00:00: mouth (two) Medical times Branch daily. Lamotrigine 2020-11 Yes [id number] 1{tbl} Take 1 Univers 100 mg TbDL 1-18 tablet by ity of 00:00: mouth (two) Medical times Branch daily. Lamotrigine 2020-11 Yes [id number] 1{tbl} Take 1 Univers 100 mg TbDL 1-18 tablet by ity of 00:00: mouth (two) Medical times Branch daily. Lamotrigine 2020-11 Yes [id number] 1{tbl} Take 1 Univers 100 mg TbDL 1-18 tablet by ity of 00:00: mouth (two) Medical times Branch daily. Lamotrigine 2020-11 Yes [id number] 1{tbl} Take 1 Univers 100 mg TbDL 1-18 tablet by ity of 00:00: mouth (two) Medical times Branch daily. Lamotrigine 2020-11 Yes [id number] 1{tbl} Take 1 Univers 100 mg TbDL 1-18 tablet by ity of 00:00: mouth [place] (two) Medical times Branch daily. Lamotrigine 2020-11 Yes [id number] 1{tbl} Take 1 Univers 100 mg TbDL 1-18 tablet by ity of 00:00: mouth (two) Medical times Branch daily. Lamotrigine 2020-11 Yes [id number] 1{tbl} Take 1 Univers 100 mg TbDL 1-18 tablet by ity of 00:00: mouth (two) Medical times Branch daily. Lamotrigine 2020-11 Yes [id number] 1{tbl} Take 1 Univers 100 mg TbDL 1-18 tablet by ity of 00:00: mouth (two) Medical times Branch daily. Lamotrigine 2020-11 Yes [id number] 1{tbl} Take 1 Univers 100 mg TbDL 1-18 tablet by ity of 00:00: mouth (two) Medical times Branch daily. Lamotrigine 2020-11 Yes [id number] 1{tbl} Take 1 Univers 100 mg TbDL 1-18 tablet by ity of 00:00: mouth [place] (two) Medical times Branch daily. Lamotrigine 2020-11 Yes [id number] 1{tbl} Take 1 Univers 100 mg TbDL 1-18 tablet by ity of 00:00: mouth 2 [place] (two) Medical times Branch daily. Lamotrigine 2020-11 Yes [id number] 1{tbl} Take 1 Univers 100 mg TbDL 1-18 tablet by ity of 00:00: mouth 2 [place] (two) Medical times Branch daily. Lamotrigine 2020-11 Yes [id number] 1{tbl} Take 1 Univers 100 mg TbDL 1-18 tablet by ity of 00:00: mouth 2 [place] (two) Medical times Branch daily. Lamotrigine 2020-11 Yes [id number] 1{tbl} Take 1 Univers 100 mg TbDL 1-18 tablet by ity of 00:00: mouth 2 [place] (two) Medical times Branch daily. Lamotrigine 2020-11 Yes [id number] 1{tbl} Take 1 Univers 100 mg TbDL 1-18 tablet by ity of 00:00: mouth 2 [place] (two) Medical times Branch daily. Lamotrigine 2020-11 Yes [id number] 1{tbl} Take 1 Univers 100 mg TbDL 1-18 tablet by ity of 00:00: mouth 2 [place] (two) Medical times Branch daily. Lamotrigine 2020-11 Yes [id number] 1{tbl} Take 1 Univers 100 mg TbDL 1-18 tablet by ity of 00:00: mouth 2 [place] (two) Medical times Branch daily. Lamotrigine 2020-11 Yes [id number] 1{tbl} Take 1 Univers 100 mg TbDL 1-18 tablet by ity of 00:00: mouth 2 [place] (two) Medical times Branch daily. medroxyPROG 2020-11- No [id number] 150mg Univers ESTERone 0-18 -19 ity of (DEPO-PROVE 14:15: 14:14 [place] ) 00 :00 Medical injection Branch 150 mg medroxyPROG 2020-11- No [id number] 150mg Univers ESTERone 0-18 -19 ity of (DEPO-PROVE 14:15: 14:14 [place] ) 00 :00 Medical injection Branch 150 mg medroxyPROG 2020-11- No [id number] 150mg Univers ESTERone 0-18 08-01 ity of (DEPO-PROVE 14:15: 14:14 [place] RA) 00 :00 Medical injection Branch 150 mg medroxyPROG 2020-11- No [id number] 150mg Univers ESTERone 0-18 08-01 ity of (DEPO-PROVE 14:15: 14:14 [place] RA) 00 :00 Medical injection Branch 150 mg medroxyPROG 2020-11- No [id number] 150mg 150 mg, Univers ESTERone 0-18 08-01 Intramuscu ity of (DEPO-PROVE 14:15: 14:14 lar, [place] RA) 00 :00 [id number], Medical injection 4 doses, Branch 150 mg First dose on Mon08/30/21 at 0915, Last dose on Mon05/09/22 at 0915, Routine medroxyPROG 2020-11- No [id number] 150mg 150 mg, Univers ESTERone 0-18 07-05 Intramuscu ity of (DEPO-PROVE 14:15: 14:26 lar, [place] RA) 00 :00 [id number], Medical injection 4 doses, Branch 150 mg First dose on Mon08/30/21 at 0915, Last dose on Mon05/09/22 at 0915, Routine albuterol 2020-11 Yes [id number] INHALE 1 Univers (PROAIR 0-18 TO 2 PUFFS ity of HFA) 90 00:00: BY MOUTH [place] mcg/actuati 00 EVERY 4 TO Me dical on inhaler 6 HOURS Bra orh NEEDED albuterol 2020-11 Yes [id number] INHALE 1 Univers (PROAIR 0-18 TO 2 PUFFS ity of HFA) 90 00:00: BY MOUTH [place] mcg/actuati 00 EVERY 4 TO Me dical on inhaler 6 HOURS Bra nch NEEDED albuterol 2020-11 Yes [id number] INHALE 1 Univers (PROAIR 0-18 TO 2 PUFFS ity of HFA) 90 00:00: BY MOUTH [place] mcg/actuati 00 EVERY 4 TO Me dical on inhaler 6 HOURS Bra nch NEEDED albuterol 2020-11 Yes [id number] INHALE 1 Univers (PROAIR 0-18 TO 2 PUFFS ity of HFA) 90 00:00: BY MOUTH [place] mcg/actuati 00 EVERY 4 TO Me dical on inhaler 6 HOURS Bra nch NEEDED albuterol 2020-11 Yes [id number] INHALE 1 Univers (PROAIR 0-18 TO 2 PUFFS ity of HFA) 90 00:00: BY MOUTH [place] mcg/actuati 00 EVERY 4 TO Me dical on inhaler 6 HOURS Bra nch NEEDED albuterol 2020-11 Yes [id number] INHALE 1 Univers (PROAIR 0-18 TO 2 PUFFS ity of HFA) 90 00:00: BY MOUTH [place] mcg/actuati 00 EVERY 4 TO Me dical on inhaler 6 HOURS Bra nch NEEDED albuterol 2020-11 Yes [id number] INHALE 1 Univers (PROAIR 0-18 TO 2 PUFFS ity of HFA) 90 00:00: BY MOUTH [place] mcg/actuati 00 EVERY 4 TO Me dical on inhaler 6 HOURS Bra nch NEEDED albuterol 2020-11 Yes [id number] INHALE 1 Univers (PROAIR 0-18 TO 2 PUFFS ity of HFA) 90 00:00: BY MOUTH [place] mcg/actuati 00 EVERY 4 TO Me dical on inhaler 6 HOURS Bra nch NEEDED albuterol 2020-11 Yes [id number] INHALE 1 Univers (PROAIR 0-18 TO 2 PUFFS ity of HFA) 90 00:00: BY MOUTH [place] mcg/actuati 00 EVERY 4 TO Me dical on inhaler 6 HOURS Bra nch NEEDED albuterol 2020-11 Yes [id number] INHALE 1 Univers (PROAIR 0-18 TO 2 PUFFS ity of HFA) 90 00:00: BY MOUTH [place] mcg/actuati 00 EVERY 4 TO Me dical on inhaler 6 HOURS Bra nch NEEDED albuterol 2020-11 Yes [id number] INHALE 1 Univers (PROAIR 0-18 TO 2 PUFFS ity of HFA) 90 00:00: BY MOUTH [place] mcg/actuati 00 EVERY 4 TO Me dical on inhaler 6 HOURS Bra nch NEEDED albuterol 2020-11 Yes [id number] INHALE 1 Univers (PROAIR 0-18 TO 2 PUFFS ity of HFA) 90 00:00: BY MOUTH [place] mcg/actuati 00 EVERY 4 TO Me dical on inhaler 6 HOURS Bra nch NEEDED albuterol 2020-11 Yes [id number] INHALE 1 Univers (PROAIR 0-18 TO 2 PUFFS ity of HFA) 90 00:00: BY MOUTH [place] mcg/actuati 00 EVERY 4 TO Me dical on inhaler 6 HOURS Bra nch NEEDED albuterol 2020-11 Yes [id number] INHALE 1 [facility] (PROAIR 0-18 TO 2 PUFFS ity of HFA) 90 00:00: BY MOUTH [place] mcg/actuati 00 EVERY 4 TO Me dical on inhaler 6 HOURS [facility] NEEDED albuterol 2020-11 Yes [id number] INHALE 1 [facility] (PROAIR 0-18 TO 2 PUFFS ity of HFA) 90 00:00: BY MOUTH [place] mcg/actuati 00 EVERY 4 TO Me dical on inhaler 6 HOURS [facility] NEEDED albuterol 2020-11 Yes [id number] INHALE 1 [facility] (PROAIR 0-18 TO 2 PUFFS ity of HFA) 90 00:00: BY MOUTH [place] mcg/actuati 00 EVERY 4 TO Me dical on inhaler 6 HOURS [facility] NEEDED albuterol 2020-11 Yes [id number] INHALE 1 [facility] (PROAIR 0-18 TO 2 PUFFS ity of HFA) 90 00:00: BY MOUTH [place] mcg/actuati 00 EVERY 4 TO Me dical on inhaler 6 HOURS Bra n[facility] NEEDED albuterol 2020-11 Yes [id number] INHALE 1 [facility] (PROAIR 0-18 TO 2 PUFFS ity of HFA) 90 00:00: BY MOUTH [place] mcg/actuati 00 EVERY 4 TO Me dical on inhaler 6 HOURS [facility] n[facility] NEEDED albuterol 2020-11 Yes [id number] INHALE 1 [facility] (PROAIR 0-18 TO 2 PUFFS ity of HFA) 90 00:00: BY MOUTH [place] mcg/actuati 00 EVERY 4 TO Me dical on inhaler 6 HOURS [facility] n[facility] NEEDED albuterol 2020-11 Yes [id number] INHALE 1 [facility] (PROAIR 0-18 TO 2 PUFFS ity of HFA) 90 00:00: BY MOUTH [place] mcg/actuati 00 EVERY 4 TO Me dical on inhaler 6 HOURS [facility] n[facility] NEEDED albuterol 2020-11 Yes [id number] INHALE 1 [facility] (PROAIR 0-18 TO 2 PUFFS ity of HFA) 90 00:00: BY MOUTH [place] mcg/actuati 00 EVERY 4 TO Me dical on inhaler 6 HOURS [facility] n[facility] NEEDED albuterol 2020-11 Yes [id number] INHALE 1 [facility] (PROAIR 0-18 TO 2 PUFFS ity of HFA) 90 00:00: BY MOUTH [place] mcg/actuati 00 EVERY 4 TO Me dical on inhaler 6 HOURS [facility] n[facility] NEEDED albuterol 2020-11 Yes [id number] INHALE 1 [facility] (PROAIR 0-18 TO 2 PUFFS ity of HFA) 90 00:00: BY MOUTH [place] mcg/actuati 00 EVERY 4 TO Me dical on inhaler 6 HOURS [facility] n[facility] NEEDED albuterol 2020-11 Yes [id number] INHALE 1 [facility] (PROAIR 0-18 TO 2 PUFFS ity of HFA) 90 00:00: BY MOUTH [place] mcg/actuati 00 EVERY 4 TO Me dical on inhaler 6 HOURS [facility] n[facility] NEEDED albuterol 2020-11 Yes [id number] INHALE 1 [facility] (PROAIR 0-18 TO 2 PUFFS ity of HFA) 90 00:00: BY MOUTH [place] mcg/actuati 00 EVERY 4 TO Me dical on inhaler 6 HOURS [facility] n[facility] NEEDED albuterol 2020-11 Yes [id number] INHALE 1 [facility] (PROAIR 0-18 TO 2 PUFFS ity of HFA) 90 00:00: BY MOUTH [place] mcg/actuati 00 EVERY 4 TO Me dical on inhaler 6 HOURS [facility] n[facility] NEEDED albuterol 2020-11 Yes [id number] INHALE 1 [facility] (PROAIR 0-18 TO 2 PUFFS ity of HFA) 90 00:00: BY MOUTH [place] mcg/actuati 00 EVERY 4 TO Me dical on inhaler 6 HOURS Bra n[facility] NEEDED albuterol 2020-11 Yes [id number] INHALE 1 [facility] (PROAIR 0-18 TO 2 PUFFS ity of HFA) 90 00:00: BY MOUTH [place] mcg/actuati 00 EVERY 4 TO Me dical on inhaler 6 HOURS Bra n[facility] NEEDED albuterol 2020-11 Yes [id number] INHALE 1 [facility] (PROAIR 0-18 TO 2 PUFFS ity of HFA) 90 00:00: BY MOUTH [place] mcg/actuati 00 EVERY 4 TO Me dical on inhaler [address] [facility] NEEDED albuterol 2020-11 Yes [id number] INHALE 1 [facility] (PROAIR 0-18 TO 2 PUFFS ity of HFA) 90 00:00: BY MOUTH [place] mcg/actuati 00 EVERY 4 TO Me dical on inhaler [address] [facility] NEEDED albuterol 2020-11 Yes [id number] INHALE 1 [facility] (PROAIR 0-18 TO 2 PUFFS ity of HFA) 90 00:00: BY MOUTH [place] mcg/actuati 00 EVERY 4 TO Me dical on inhaler 6 HOURS [facility] n[facility] NEEDED albuterol 2020-11 Yes [id number] INHALE 1 [facility] (PROAIR 0-18 TO 2 PUFFS ity of HFA) 90 00:00: BY MOUTH [place] mcg/actuati 00 EVERY 4 TO Me dical on inhaler [address] [facility] NEEDED albuterol 2020-11 Yes [id number] INHALE 1 [facility] (PROAIR 0-18 TO 2 PUFFS ity of HFA) 90 00:00: BY MOUTH [place] mcg/actuati 00 EVERY 4 TO Me dical on inhaler [address] [facility] NEEDED albuterol 2020-11 Yes [id number] INHALE 1 [facility] (PROAIR 0-18 TO 2 PUFFS ity of HFA) 90 00:00: BY MOUTH [place] mcg/actuati 00 EVERY 4 TO Me dical on inhaler [address] [facility] NEEDED Lamotrigine 2020- No Take by Un [place]air 100 mg TbDL 5-17 05-17 mouth 2 ity of 11:16: 00:00 (two) [place] 59 :00 times Medical daily. Branch busPIRone 2020- No [id number] 7.5mg Take 0.5-1 Univers 15 mg 5-17 11-18 tablets by ity of tablet 00:00: 00:00 mouth 2 [place] 00 :00 (two) Medical times Branch daily. escitalopra 2020- No [id number] 20mg Take 1 Univers m oxalate 5-17 11-18 tablet by ity of 20 mg 00:00: 00:00 mouth [place] tablet 00 :00 daily. Medical Branch Lamotrigine 2020- No [id number] 1{tbl} Take 1 [facility] 100 mg TbDL 5-17 10-25 tablet by it y of 00:00: 00:00 mouth 2 [place] 00 :00 (two) Medical times Branch daily. ondansetron 2020- No [id number] 4mg Take 1 [facility] 4 mg 3-29 11-18 tablet by ity of disintegrat 00:00: 00:00 [place] :00 every 8 Medica l (eight) Branch hours as needed for Nausea and Vomiting (N/V). ondansetron 2020- No [id number] 4mg Take 1 [facility] 4 mg 3-29 11-18 tablet by ity of disintegrat 00:00: 00:00 [place] 00 :00 every 8 Medica l (eight) Branch hours as needed for Nausea and Vomiting (N/V). pyridoxine, 2020- No [id number] 50mg Take 1 [facility] VITAMIN 1-27 11-18 tablet by ity of B-6, 50 mg 00:00: 00:00 mouth [place] tablet 00 :00 daily. Medical Branch Cholecalcif 2020- No [id number] 1999U Take 1 Univers fredy, 1-27 11-18 capsule by ity of Vitamin D3, 00:00: 00:00 [place] (D3-1999[place] 00 :00 daily. Medical 50 mcg Take with Branch (2,000 food. unit) capsule pyridoxine, 2020- No [id number] 50mg Take 1 [facility] VITAMIN 1-27 11-18 tablet by ity of B-6, 50 mg 00:00: 00:00 mouth [place] tablet 00 :00 daily. Medical Branch Cholecalcif 2020- No [id number] 1999U Take 1 [facility] fredy, 1-27 11-18 capsule by ity of Vitamin D3, 00:00: 00:00 [place] (D3-1999[place] 00 :00 daily. Medical 50 mcg Take with Branch (2,000 food. unit) capsule pramipexole 2020- No [id number] .125mg Take 1 [facility] (MIRAPEX) 12-04-18 tablet by ity of 0.125 mg 00:00: 00:00 [place] tablet 00 :00 bedtime. Medical Branch pramipexole 2020- No [id number] .125mg Take 1 [facility] (MIRAPEX) 12-04-18 tablet by ity of 0.125 mg 00:00: 00:00 [place] 00 :00 bedtime. Medical Branch busPIRone 2020- No [id number] 7.5mg Take 0.5-1 [facility] 15 mg 12-0417 [...] for leg - [facility] 00 :00 cramps [facility] Magnesium Magnesium 2019-0 2019- No QD Magnesium [...] tongue and - [facility] 00 allow to [facility] as needed Medical for [...] Yes Na Bates 1 tablet Comm on [facility] Cetirizine Cetirizine Yes Na Bates take 1 Common HCl HCl tablet by [facility] mouth - [facility] every day as needed [facility] for Medical allergies Center Lamictal Lamictal Yes Na Bates 1 tablet Common [facility] Ondansetron Ondansetron Yes Na Bates as Common HCl HCl directed [facility] Lexapro Lexapro Yes Na Bates 1 tablet Co mmon [facility] Quetiapine Quetiapine Yes Na [place] TAKE 1 Common Fumarate Fumarate TABLET BY Sp escobar MOUTH AT - [facility]I BEDTIME [facility] Afinitor Afinitor Yes Na Bates 1 tablet Common [facility] Pantoprazol Pantoprazol Yes Na Bates 1 tablet Common e Sodium e Sodium [facility] Afinitor 5 Afinitor 5 No [...] Immunizations Ordered Filled Immunization Date Status Comments [facility] e Immunization Name Name HPV9 2023-04-25 Completed University of 00:00:00 [facility] HPV9 2023-04-25 Completed University of 00:00:00 [facility] Influenza Virus 2023-01-31 Completed Universit y of Vaccine Quad IM, 00:00:00 [facility] [place] dical Preserv and ABX Branch Free 6 MO-64 YRS HPV9 2023-01-31 Completed University of 00:00:00 [facility] Influenza Virus 2023-01-31 Completed Universit y of Vaccine Quad IM, 00:00:00 [facility] [place] dical Preserv and ABX Branch Free 6 MO-64 YRS HPV9 2023-01-31 Completed University of 00:00:00 [facility] Influenza Virus 2023-01-31 Completed Universit y of Vaccine Quad IM, 00:00:00 [facility] [place] dical Preserv and ABX Branch Free 6 MO-64 YRS HPV9 2023-01-31 Completed University of 00:00:00 [facility] Influenza Virus 2023-01-31 Completed Universit y of Vaccine Quad IM, 00:00:00 [place] Me dical Preserv and ABX Branch Free 6 MO-64 YRS HPV9 2023-01-31 Completed University of 00:00:00 [facility] Influenza Virus 2023-01-31 Completed Universit y of Vaccine Quad IM, 00:00:00 [place] Me dical Preserv and ABX Branch Free 6 MO-64 YRS HPV9 2023-01-31 Completed University of 00:00:00 [facility] Influenza Virus 2023-01-31 Completed Universit y of Vaccine Quad IM, 00:00:00 [place] Me dical Preserv and ABX Branch Free 6 MO-64 YRS HPV9 2023-01-31 Completed University of 00:00:00 [facility] Influenza Virus 2023-01-31 Completed Universit y of Vaccine Quad IM, 00:00:00 [facility] [place] dical Preserv and ABX Branch Free 6 MO-64 YRS HPV9 2023-01-31 Completed University of 00:00:00 [facility] Influenza Virus 2023-01-31 Completed Universit y of Vaccine Quad IM, 00:00:00 [facility] [place] dical Preserv and ABX Branch Free 6 MO-64 YRS HPV9 2023-01-31 Completed University of 00:00:00 [facility] Influenza Virus 2023-01-31 Completed Universit y of Vaccine Quad IM, 00:00:00 [place] Me dical Preserv and ABX Branch Free 6 MO-64 YRS HPV9 2023-01-31 Completed University of 00:00:00 [facility] Influenza Virus 2023-01-31 Completed Universit y of Vaccine Quad IM, 00:00:00 [facility] [place] dical Preserv and ABX Branch Free 6 MO-64 YRS HPV9 2023-01-31 Completed University of 00:00:00 [facility] Influenza Virus 2023-01-31 Completed Universit y of Vaccine Quad IM, 00:00:00 [place] Me dical Preserv and ABX Branch Free 6 MO-64 YRS HPV9 2023-01-31 Completed University of 00:00:00 [facility] Influenza Virus 2023-01-31 Completed Universit y of [...] [facility] Influ[facility] Virus 2023-01-31 Completed Universit y of Vaccine Quad IM, 00:00:00 [place] Me dical Preserv and ABX Branch Free 6 MO-64 YRS HPV9 2023-01-31 Completed University 00:00:00 [facility] SARS-COV-2 COVID-19 2021-11-17 Completed Unive rsity of PFIZER VACCINE 00:00:00 [facility] SARS-COV-2 COVID-19 2021-11-17 Completed Unive rsity of PFIZER VACCINE 00:00:00 [facility] SARS-COV-2 COVID-19 2021-11-17 Completed Unive rsity of PFIZER VACCINE 00:00:00 [facility] SARS-COV-2 COVID-19 2021-11-17 Completed Unive rsity of PFIZER VACCINE 00:00:00 [facility] SARS-COV-2 COVID-19 2021-11-17 Completed Unive rsity of PFIZER VACCINE 00:00:00 [facility] SARS-COV-2 COVID-19 2021-11-17 Completed Unive rsity of PFIZER VACCINE 00:00:00 [facility] SARS-COV-2 COVID-19 2021-11-17 Completed Unive rsity of PFIZER VACCINE 00:00:00 [facility] SARS-COV-2 COVID-19 2021-11-17 Completed Unive rsity of PFIZER VACCINE 00:00:00 [facility] SARS-COV-2 COVID-19 2021-11-17 Completed Unive rsity of PFIZER VACCINE 00:00:00 [facility] SARS-COV-2 COVID-19 2021-11-17 Completed Unive rsity of PFIZER VACCINE 00:00:00 [facility] SARS-COV-2 COVID-19 2021-11-17 Completed Unive rsity of PFIZER VACCINE 00:00:00 [facility] SARS-COV-2 COVID-19 2021-11-17 Completed Unive rsity of PFIZER VACCINE 00:00:00 [facility] SARS-COV-2 COVID-19 2021-11-17 Completed Unive rsity of PFIZER VACCINE 00:00:00 [facility] SARS-COV-2 COVID-19 2021-11-17 Completed Unive rsity of PFIZER VACCINE 00:00:00 [facility] Influenza Virus 2021-08-30 Completed Universit y of [...] Completed Unive rsity of PFIZER VACCINE 00:00:00 [facility] SARS-COV-2 COVID-19 2021-02-23 Completed Unive rsity of PFIZER VACCINE 00:00:00 [facility] SARS-COV-2 COVID-19 2021-02-23 Completed Unive rsity of PFIZER VACCINE 00:00:00 [facility] SARS-COV-2 COVID-19 2021-02-23 Completed Unive rsity of PFIZER VACCINE 00:00:00 [facility] SARS-COV-2 COVID-19 2021-02-23 Completed Unive rsity of PFIZER VACCINE 00:00:00 [facility] SARS-COV-2 COVID-19 2021-02-23 Completed Unive rsity of PFIZER VACCINE 00:00:00 [facility] Branch SARS-COV-2 COVID-19 2021-02-23 Completed Unive rsity of PFIZER VACCINE 00:00:00 [facility] SARS-COV-2 COVID-19 2021-02-23 Completed Unive rsity of PFIZER VACCINE 00:00:00 [facility] SARS-COV-2 COVID-19 2021-02-23 Completed Unive rsity of PFIZER VACCINE 00:00:00 [facility] SARS-COV-2 COVID-19 2021-02-23 Completed Unive rsity of PFIZER VACCINE 00:00:00 [facility] SARS-COV-2 COVID-19 2021-02-23 Completed Unive rsity of PFIZER VACCINE 00:00:00 [facility] SARS-COV-2 COVID-19 2021-02-23 Completed Unive rsity of PFIZER VACCINE 00:00:00 [facility] SARS-COV-2 COVID-19 2021-02-23 Completed Unive rsity of PFIZER VACCINE 00:00:00 [facility] SARS-COV-2 COVID-19 2021-02-23 Completed Unive rsity of PFIZER VACCINE 00:00:00 [facility] SARS-COV-2 COVID-19 2021-02-23 Completed Unive rsity of PFIZER VACCINE 00:00:00 [facility] SARS-COV-2 COVID-19 2021-02-23 Completed Unive rsity of PFIZER VACCINE 00:00:00 [facility] SARS-COV-2 COVID-19 2021-02-23 Completed Unive rsity of PFIZER VACCINE 00:00:00 [facility] SARS-COV-2 COVID-19 2021-02-23 Completed Unive rsity of PFIZER VACCINE 00:00:00 [facility] SARS-COV-2 COVID-19 2021-02-23 Completed Unive rsity of PFIZER VACCINE 00:00:00 [facility] SARS-COV-2 COVID-19 2021-02-23 Completed Unive rsity of PFIZER VACCINE 00:00:00 [facility] SARS-COV-2 COVID-19 2021-02-23 Completed Unive rsity of PFIZER VACCINE 00:00:00 [facility] SARS-COV-2 COVID-19 2021-02-23 Completed Unive rsity of PFIZER VACCINE 00:00:00 [facility] SARS-COV-2 COVID-19 2021-02-23 Completed Unive rsity of PFIZER VACCINE 00:00:00 [facility] SARS-COV-2 COVID-19 2021-02-23 Completed Unive rsity of PFIZER VACCINE 00:00:00 [facility] SARS-COV-2 COVID-19 2021-02-23 Completed Unive rsity of PFIZER VACCINE 00:00:00 [facility] SARS-COV-2 COVID-19 2021-02-23 Completed Unive rsity of PFIZER VACCINE 00:00:00 [facility] SARS-COV-2 COVID-19 2021-02-23 Completed Unive rsity of PFIZER VACCINE 00:00:00 [facility] SARS-COV-2 COVID-19 2021-02-23 Completed Unive rsity of PFIZER VACCINE 00:00:00 [facility] SARS-COV-2 COVID-19 2021-02-23 Completed Unive rsity of PFIZER VACCINE 00:00:00 [facility] SARS-COV-2 COVID-19 2021-02-23 Completed Unive rsity of PFIZER VACCINE 00:00:00 [facility] SARS-COV-2 COVID-19 2021-02-23 Completed Unive rsity of PFIZER VACCINE 00:00:00 [facility] SARS-COV-2 COVID-19 2021-02-23 Completed Unive rsity of PFIZER VACCINE 00:00:00 [facility] SARS-COV-2 COVID-19 2021-02-23 Completed Unive rsity of PFIZER VACCINE 00:00:00 [facility] SARS-COV-2 COVID-19 2021-02-23 Completed Unive rsity of PFIZER VACCINE 00:00:00 [facility] SARS-COV-2 COVID-19 2021-02-23 Completed Unive rsity of PFIZER VACCINE 00:00:00 [facility] SARS-COV-2 COVID-19 2021-02-23 Completed Unive rsity of PFIZER VACCINE 00:00:00 [facility] SARS-COV-2 COVID-19 2021-02-02 Completed Unive rsity of PFIZER VACCINE 00:00:00 [facility] SARS-COV-2 COVID-19 2021-02-02 Completed Unive rsity of PFIZER VACCINE 00:00:00 [facility] SARS-COV-2 COVID-19 2021-02-02 Completed Unive rsity of PFIZER VACCINE 00:00:00 [facility] SARS-COV-2 COVID-19 2021-02-02 Completed Unive rsity of PFIZER VACCINE 00:00:00 [facility] SARS-COV-2 COVID-19 2021-02-02 Completed Unive rsity of PFIZER VACCINE 00:00:00 [facility] SARS-COV-2 COVID-19 2021-02-02 Completed Unive rsity of PFIZER VACCINE 00:00:00 [facility] SARS-COV-2 COVID-19 2021-02-02 Completed Unive rsity of PFIZER VACCINE 00:00:00 [facility] SARS-COV-2 COVID-19 2021-02-02 Completed Unive rsity of PFIZER VACCINE 00:00:00 [facility] SARS-COV-2 COVID-19 2021-02-02 Completed Unive rsity of PFIZER VACCINE 00:00:00 [facility] SARS-COV-2 COVID-19 2021-02-02 Completed Unive rsity of PFIZER VACCINE 00:00:00 [facility] SARS-COV-2 COVID-19 2021-02-02 Completed Unive rsity of PFIZER VACCINE 00:00:00 [facility] SARS-COV-2 COVID-19 2021-02-02 Completed Unive rsity of PFIZER VACCINE 00:00:00 [facility] SARS-COV-2 COVID-19 2021-02-02 Completed Unive rsity of PFIZER VACCINE 00:00:00 [facility] SARS-COV-2 COVID-19 2021-02-02 Completed Unive rsity of PFIZER VACCINE 00:00:00 [facility] SARS-COV-2 COVID-19 2021-02-02 Completed Unive rsity of PFIZER VACCINE 00:00:00 [facility] SARS-COV-2 COVID-19 2021-02-02 Completed Unive rsity of PFIZER VACCINE 00:00:00 [facility] SARS-COV-2 COVID-19 2021-02-02 Completed Unive rsity of PFIZER VACCINE 00:00:00 [facility] SARS-COV-2 COVID-19 2021-02-02 Completed Unive rsity of PFIZER VACCINE 00:00:00 [facility] SARS-COV-2 COVID-19 2021-02-02 Completed Unive rsity of PFIZER VACCINE 00:00:00 [facility] SARS-COV-2 COVID-19 2021-02-02 Completed Unive rsity of PFIZER VACCINE 00:00:00 [facility] SARS-COV-2 COVID-19 2021-02-02 Completed Unive rsity of PFIZER VACCINE 00:00:00 [facility] SARS-COV-2 COVID-19 2021-02-02 Completed Unive rsity of PFIZER VACCINE 00:00:00 [facility] SARS-COV-2 COVID-19 2021-02-02 Completed Unive rsity of PFIZER VACCINE 00:00:00 [facility] SARS-COV-2 COVID-19 2021-02-02 Completed Unive rsity of PFIZER VACCINE 00:00:00 [facility] SARS-COV-2 COVID-19 2021-02-02 Completed Unive rsity of PFIZER VACCINE 00:00:00 [facility] SARS-COV-2 COVID-19 2021-02-02 Completed Unive rsity of PFIZER VACCINE 00:00:00 [facility] SARS-COV-2 COVID-19 2021-02-02 Completed Unive rsity of PFIZER VACCINE 00:00:00 [facility] SARS-COV-2 COVID-19 2021-02-02 Completed Unive rsity of PFIZER VACCINE 00:00:00 [facility] SARS-COV-2 COVID-19 2021-02-02 Completed Unive rsity of PFIZER VACCINE 00:00:00 [facility] SARS-COV-2 COVID-19 2021-02-02 Completed Unive rsity of PFIZER VACCINE 00:00:00 [facility] SARS-COV-2 COVID-19 2021-02-02 Completed Unive rsity of PFIZER VACCINE 00:00:00 [facility] SARS-COV-2 COVID-19 2021-02-02 Completed Unive rsity of PFIZER VACCINE 00:00:00 [facility] SARS-COV-2 COVID-19 2021-02-02 Completed Unive rsity of PFIZER VACCINE 00:00:00 [facility] SARS-COV-2 COVID-19 2021-02-02 Completed Unive rsity of PFIZER VACCINE 00:00:00 [facility] SARS-COV-2 COVID-19 2021-02-02 Completed Unive rsity of PFIZER VACCINE 00:00:00 [facility] SARS-COV-2 COVID-19 2021-02-02 Completed Unive rsity of PFIZER VACCINE 00:00:00 [facility] Influenza Virus 2020-08-27 Completed Universit y of [...] Vaccine Quad .5 mL 00:00:00 [place] [facility] 6+ MO Branch Afluria single dose Afluria single dose 2019-08-05 Completed [facility] - 16:46:00 [facility] Afluria single dose Afluria single dose 2019-08-05 Completed [facility] - 16:46:00 [facility] Afluria single dose Afluria single dose 2019-08-05 Completed [facility] - 16:46:00 [facility] Afluria single dose Afluria single dose 2019-08-05 Completed [facility] - 16:46:00 [facility] Afluria single dose Afluria single dose 2019-08-05 Completed [facility] - 16:46:00 [facility] Afluria single dose Afluria single dose 2019-08-05 Completed [facility] - 16:46:00 [facility] Afluria single dose Afluria single dose 2019-08-05 Completed [facility] - 16:46:00 [facility] Afluria single dose Afluria single dose 2019-08-05 Completed [facility] - 16:46:00 [facility] Afluria single dose Afluria single dose 2019-08-05 Completed [facility] - 16:46:00 [facility] Influenza Virus 2019-08-05 Completed Universit y of Vaccine Quad IM 3+ 00:00:00 [facility] Influenza Virus 2019-08-05 Completed Universit y of Vaccine Quad IM 3+ 00:00:00 [facility] Influenza Virus 2019-08-05 Completed Universit y of Vaccine Quad IM 3+ 00:00:00 [facility] Influenza Virus 2019-08-05 Completed Universit y of Vaccine Quad IM 3+ 00:00:00 [facility] Influenza Virus 2019-08-05 Completed Universit y of Vaccine Quad IM 3+ 00:00:00 [facility] Influenza Virus 2019-08-05 Completed Universit y of Vaccine Quad IM 3+ 00:00:00 [facility] Influenza Virus 2019-08-05 Completed Universit y of Vaccine Quad IM 3+ 00:00:00 [facility] Influenza Virus 2019-08-05 Completed Universit y of Vaccine Quad IM 3+ 00:00:00 [facility] Influenza Virus 2019-08-05 Completed Universit y of Vaccine Quad IM 3+ 00:00:00 [facility] Influenza Virus 2019-08-05 Completed Universit y of Vaccine Quad IM 3+ 00:00:00 [facility] Influenza Virus 2019-08-05 Completed Universit y of Vaccine Quad IM 3+ 00:00:00 [facility] Influenza Virus 2019-08-05 Completed Universit y of Vaccine Quad IM 3+ 00:00:00 [facility] Influenza Virus 2019-08-05 Completed Universit y of Vaccine Quad IM 3+ 00:00:00 [facility] Influenza Virus 2019-08-05 Completed Universit y of Vaccine Quad IM 3+ 00:00:00 [facility] Influenza Virus 2019-08-05 Completed Universit y of Vaccine Quad IM 3+ 00:00:00 [facility] Influenza Virus 2019-08-05 Completed Universit y of Vaccine Quad IM 3+ 00:00:00 [facility] Afluria single dose Afluria single dose 2019-08-05 Completed [facility] - 00:00:00 [facility] Flucelvax - single Flucelvax - single 2018-10-26 Completed [facility] - dose syringe dose syringe 10:32:00 [facility] Flucelvax - single Flucelvax - single 2018-10-26 Completed [facility] - dose syringe dose syringe 10:32:00 [facility] Flucelvax - single Flucelvax - single 2018-10-26 Completed [facility] - dose syringe dose syringe 10:32:00 [facility] Flucelvax - single Flucelvax - single 2018-10-26 Completed [facility] - dose syringe dose syringe 10:32:00 [facility] Flucelvax - single Flucelvax - single 2018-10-26 Completed [facility] - dose syringe dose syringe 10:32:00 [facility] Flucelvax - single Flucelvax - single 2018-10-26 Completed [facility] dose syringe dose syringe 10:32:00 [facility] Flucelvax - single Flucelvax - single 2018-10-26 Completed [facility] - dose syringe dose syringe 10:32:00 [facility] Flucelvax - single Flucelvax - single 2018-10-26 Completed [facility] - dose syringe dose syringe 10:32:00 [facility] Flucelvax - single Flucelvax - single 2018-10-26 Completed [facility] - dose syringe dose syringe 10:32:00 [facility] Flucelvax - single Flucelvax - single 2018-10-26 Completed [facility] - dose syringe dose syringe 00:00:00 [facility] Vital Signs Vital Name Observation Time Observation Value Comments Source Respiratory rate 2023-04-25 17:58:00 17 /min [facility] height 2023-04-25 17:58:[address] [facility] Body weight 2023-04-25 17:58:[address] [facility] BMI 2023-04-25 17:58:00 32.91 kg/m2 [facility] Systolic blood 2023-04-25 17:58:00 115 mm[Hg] Univer sity of pressure [facility] Diastolic blood 2023-04-25 17:58:00 77 mm[Hg] Unive rsity of [facility] Heart rate 2023-04-25 17:58:00 89 /min [facility] Body temperature 2023-04-25 17:58:00 36.28 Ca Univ [facility] Systolic blood 2023-04-18 13:27:00 125 mm[Hg] Univer sity of pressure [facility] Diastolic blood 2023-04-18 13:27:00 82 mm[Hg] Unive rsity of pressure [facility] Heart rate 2023-04-18 13:27:00 89 /min [facility] Respiratory rate 2023-04-18 13:27:00 20 /min [facility] Body height 2023-04-18 13:27:00 154.9 cm [facility] Body weight 2023-04-18 13:27:00 79.833 kg [facility] BMI 2023-04-18 13:27:00 33.25 kg/m2 [facility] Oxygen saturation in 2023-04-18 13:27:00 99 /min University of Arterial blood by [place] [facility] P[facility] oximetry [facility] Systolic blood 2023-02-28 14:09:00 128 mm[Hg] Univer sity of pressure [facility] Diastolic blood 2023-02-28 14:09:00 82 mm[Hg] Unive rsity of pressure [facility] Heart rate 2023-02-28 14:09:00 86 [...] 18:07:00 92 mm[Hg] Univer sity of pressure [facility] Diastolic blood 2023-01-31 18:07:00 69 mm[Hg] Unive rsity of pressure [facility] Heart rate 2023-01-31 18:07:00 82 /min [facility] Body temperature 2023-01-31 18:07:00 36.5 Ca [facility] Respiratory rate 2023-01-31 18:07:00 20 /min [facility] Body height 2023-01-31 18:07:00 154.9 cm [facility] Body weight 2023-01-31 18:07:00 75.978 kg [facility] BMI 2023-01-31 18:07:00 31.65 kg/m2 [facility] Systolic blood 2022-11-08 15:40:00 114 mm[Hg] Univer sity of pressure [facility] Diastolic blood 2022-11-08 15:40:00 74 mm[Hg] Unive rsity of pressure [facility] Heart rate 2022-11-08 15:40:00 79 /min [facility] Body temperature 2022-11-08 15:40:00 36.33 Ca [facility] Respiratory rate 2022-11-08 15:40:00 18 /min [facility] Body weight 2022-11-08 15:40:00 75.569 kg [facility] BMI 2022-11-08 15:40:00 31.48 kg/m2 [facility] Systolic blood 2022-08-11 15:59:00 129 mm[Hg] Univer sity of [facility] Diastolic blood 2022-08-11 15:59:00 81 mm[Hg] Unive rsity of pressure [facility] Heart rate 2022-08-11 15:59:00 79 /min [facility] Body temperature 2022-08-11 15:59:00 36.11 Ca [facility] Respiratory rate 2022-08-11 15:59:00 18 /min [facility] Body height 2022-08-11 15:59:00 154.9 cm [facility] Body weight 2022-08-11 15:59:00 73.71 kg [facility] BMI 2022-08-11 15:59:00 30.70 kg/m2 [facility] Systolic blood 2022-08-09 14:47:00 134 mm[Hg] Univer sity of pressure [facility] Diastolic blood 2022-08-09 14:47:00 86 mm[Hg] Unive rsity of pressure [facility] Heart rate 2022-08-09 14:47:00 87 /min [facility] Body temperature 2022-08-09 14:47:00 36.5 Ca Univ [facility] Respiratory rate 2022-08-09 14:47:00 20 /min [facility] Body height 2022-08-09 14:47:00 154.9 cm [facility] Body weight 2022-08-09 14:47:00 72.303 kg [facility] BMI 2022-08-09 14:47:00 30.12 kg/m2 [facility] Systolic blood 2022-05-17 14:21:00 125 mm[Hg] Univer sity of pressure [facility] Diastolic blood 2022-05-17 14:21:00 86 mm[Hg] Unive rsity of pressure [facility] Heart rate 2022-05-17 14:21:00 77 /min [facility] Body temperature 2022-05-17 14:21:00 36.11 Ca [facility] Respiratory rate 2022-05-17 14:21:00 17 /min [facility] Body height 2022-05-17 14:21:00 154.9 cm [facility] Body weight 2022-05-17 14:21:00 77.168 kg [facility] BMI 2022-05-17 14:21:00 32.14 kg/m2 [...] 2022-02-14 14:42:00 154.9 cm [facility] [place] [facility] [place] Body weight 2022-02-14 14:42:00 77.168 kg Universi ty of [facility] BMI 2022-02-14 14:42:00 32.14 kg/m2 Universi ty of [facility] Systolic blood 2021-12-24 15:47:00 126 mm[Hg] Univer sity of pressure [facility] Diastolic blood 2021-12-24 15:47:00 86 mm[Hg] Unive rsity of pressure [facility] Heart rate 2021-12-24 15:45:00 96 /min Universi ty of [facility] Body temperature 2021-12-24 15:45:00 36.22 Ca Univ ersity of [facility] Respiratory rate 2021-12-24 15:45:00 18 /min Univ ersity of [facility] Body height 2021-12-24 15:45:00 154.9 cm Universi ty of [facility] Body weight 2021-12-24 15:45:00 77.157 kg [facility] [place] [facility] [place] BMI 2021-12-24 15:45:00 32.14 kg/m2 Universi ty of [facility] Oxygen saturation in 2021-12-24 15:45:00 99 /min [facility] Arterial blood by [facility] Pulse oximetry Branch Body weight 2021-04-29 13:26:00 79.2 kg [facility] [place] BMI 2021-04-29 13:26:00 31.94 kg/m2 [facility] [place] Body weight 2021-03-02 18:34:00 63.5 kg [facility] [place] BMI 2021-03-02 18:34:00 26.45 kg/m2 Universi ty of [facility] height 2020-10-22 11:00:00 60.00 [in_i] [facility] weight 2020-10-22 11:00:00 175.6 [lb_av] [facility] temperature 2020-10-22 11:00:00 97.9 [degF] [facility] bmi 2020-10-22 11:00:00 34.29 kg/m2 [facility] oximetry 2020-10-22 11:00:00 97 % [facility] respiratory rate 2020-10-22 11:00:00 16 /min Comm on [facility] blood pressure 2020-10-22 11:00:00 125 mm[Hg] [facility] - systolic [facility] blood pressure 2020-10-22 11:00:00 84 mm[Hg] [facility] - diastolic [facility] height 2020-09-14 15:00:00 60.00 [in_i] [facility] weight 2020-09-14 15:00:00 178.8 [lb_av] [facility] temperature 2020-09-14 15:00:00 98.0 [degF] [facility] bmi 2020-09-14 15:00:00 34.92 kg/m2 [facility] oximetry 2020-09-14 15:00:00 98 % [facility] respiratory rate 2020-09-14 15:00:00 16 /min Comm on [facility] blood pressure 2020-09-14 15:00:00 139 mm[Hg] [facility] - systolic [facility] blood pressure 2020-09-14 15:00:00 88 mm[Hg] [facility] - diastolic [facility] height 2020-09-03 08:20:00 60.00 [in_i] [facility] weight 2020-09-03 08:20:00 179 [lb_av] [facility] temperature 2020-09-03 08:20:00 97.6 [degF] [facility] bmi 2020-09-03 08:20:00 34.95 kg/m2 [facility] BP Systolic 2018-05-01 10:10:00 109 mm[Hg] [...] 9 (HPV 9V) 2023-04-25 18:08:38 Alberta Hurst [facility] VACCINE [facility] PHYSICIAN ORDERS 2023-04-24 05:01:00 Doctor Unassigned, [facility] Name [facility] [place] INSURANCE CORRESPONDENCE 2023-03-02 05:01:00 Doctor Unassigned, [facility] Name [facility] GARDASIL 9 (HPV 9V) 2023-01-31 18:52:10 Alberta Hurst [facility] GC & CHLAMYDIA AMPLIFIED 2023-01-31 18:44:00 Alberta Hurst [facility] GALV ONLY - VAGINAL 2023-01-31 18:44:00 Alberta Hurst [facility] PATHOGENS BY NUCLEIC ACID [facility] TESTING HIV 1/2 AG-AB WITH REFLEX 2023-01-31 18:44:00 Alberta Hurst [facility] HIGH RISK HPV-THIN PREP 2023-01-31 18:44:00 Alberta Hurst [facility] TRICHOMONAS AMPLIFIED 2023-01-31 18:44:00 [facility] PAP SMEAR-LIQUID BASED-CP 2023-01-31 18:44:00 Alberta Hurst [facility] SYPHILIS IGG/IGM 2023-01-31 18:44:00 Alberta Hurst [facility] FLU VACC ([id number]), 6 2023-01-31 18:26:50 Alberta Hurst [facility] MO-64 YRS, .5ML, IM, QUAD Medica l Branch (FLUCELVAX) REFERRAL- REQUEST/RESPONSE 2023-01-27 05:01:00 Doctor Unassigned , [facility] Name Medical Branch PATIENT QUESTIONNAIRE 2023-01-04 06:01:00 Doctor Unassigned, [facility] [place] [facility] REFERRAL- REQUEST/RESPONSE 2022-12-02 06:01:00 Doctor Unassigned , [facility] [place] [facility] [place] US RETROPERITONEAL 2022-08-29 18:32:47 Precious Verdugo [facility] COMPLETE Medical Branch PHOSPHORUS 2022-08-17 15:12:00 [facility] URIC ACID 2022-08-17 15:12:00 Mick [facility] BASIC METABOLIC PANEL (NA, 2022-08-17 15:12:00 Amalia Barton [facility] K, CL, CO2, GLUCOSE, BUN, [facility] CREATININE, CA) CBC WITH DIFF 2022-08-17 15:12:00 Mick [facility] URINALYSIS 2022-08-17 15:12:00 Mick [facility] PROTEIN CREAT RATIO URINE 2022-08-17 15:12:00 Amalia Barton [facility] HIV 1/2 AG-AB WITH REFLEX 2022-08-17 15:12:00 Amalia Barton [facility] CONSENT/REFUSAL FOR 2022-08-11 14:44:13 Doctor Unassigned, [facility] DIAGNOSIS AND TREATMENT [place] [facility] [place] CT THORAX WO CONTRAST 2022-01-05 14:13:55 Sabrina Wooten Rp [facility] FERRITIN SERUM 2021-12-24 16:28:00 Sabrina Wooten Rp [facility] TOTAL IRON BINDING 2021-12-24 16:28:00 Sabrina Wooten Rp [facility] COMP. METABOLIC PANEL 2021-12-24 16:28:00 Sabrina Wooten Rp [facility] ([id number]) [facility] [place] CBC WITH DIFF 2021-12-24 16:28:00 Sabrina Wooten Rp [facility] INSURANCE CORRESPONDENCE 2021-12-02 06:01:00 Doctor Unassigned, [facility] EKG w/Rhythm Strip 2018-04-17 00:00:00 [...] w/wo contrast 2018-04-17 00:00:[facility] [id number] [facility] Abdomen w/wo contrast 2018-04-17 00:00:00 [facility] [id number] Encounters Start End Encounter Admission Attending Care Care Encounter Source Date/Time Date/Time Type Type Clinicians Facility Department ID 2021-12-08 Outpatient Bates, Na STLMLC STLMLC [id number] 2 Common 12:12:18 [id number] [facility] 2021-12-08 Outpatient Bates, Na STLMLC STLMLC [id number] 2 Common 12:11:19 [id number] [facility] 2021-12-08 Outpatient Bates, Na STLMLC STLMLC [id number] 2 Common 12:01:13 [id number] [facility] 2021-12-08 Outpatient Bates, Na STLMLC STLMLC [id number] 2 Common 12:00:44 [id number] [facility] 2021-12-08 Outpatient Bates, Na STLMLC STLMLC [id number] 2 Common 12:00:24 [id number] [facility] 2021-12-08 Outpatient Bates, Na STLMLC STLMLC [id number] 2 Common 11:57:53 [id number] [facility] 2021-12-08 Outpatient Bates, Na STLMLC STLMLC [id number] 2 Common 11:50:13 [id number] [facility] 2021-12-08 Outpatient Bates, Na STLMLC STLMLC [id number] 2 Common 11:44:48 [id number] [facility] 2021-12-08 Outpatient Bates, Na STLMLC STLMLC [id number] 2 Common 11:44:02 [id number] [facility] 2021-12-08 Outpatient Bates, Na STLMLC STLMLC [id number] 2 Common 11:42:40 [id number] [facility] 2021-12-08 Outpatient Bates, Na STLMLC STLMLC [id number] 2 Common 11:10:16 [id number] [facility] 2021-12-08 Outpatient Bates, Na STLMLC STLMLC [id number] 2 Common 11:07:32 [id number] [facility] 2021-09-13 Outpatient R JOSHUA LOPEZ [facility] GICami [id number] Univers 23:49:41 JOSHUA LOPEZ i ty [facility] 2021-09-13 Emergency [facility] [id number] Univers 04:00:36 ity [facility] 2021-09-12 Emergency [facility] [id number] Univers 09:20:27 ity [facility] 2021-09-11 Emergency [facility] [id number] Univers 12:17:27 ity [facility] 2021-09-10 Emergency [facility] [id number] Univers 06:09:58 ity [facility] 2021-09-09 Emergency [facility] [id number] Univers 19:00:01 ity [facility] 2023-09-06 2023-09-06 Outpatient R [facility] [id number] Univers 13:00:00 13:00:00 ity [facility] 2023-07-18 2023-07-18 Outpatient R [facility] [id number] Univers 08:30:00 08:30:00 ity [facility] 2023-05-30 2023-05-30 Outpatient R PRIMO [facility] [id number] Univers 09:00:00 09:00:00 SENDIL ity of [facility] 2023-05-08 2023-05-08 Outpatient SFA SFA [id number] Hi 08:45:21 08:45:21 [id number] F Sarmad 2023-04-25 2023-04-25 Nurse Visit, José Luis-Rmchp Nurse [facility] 1.2 .840.114 [id number] Univers 13:30:00 13:30:00 Visit Alberta Hurst JOB PRINTER 350.1.13. 10 ity [facility] 4.2.7.2.686 Jerome as MATERNAL [id number] Med ical & CHILD [address] [place] [address] 2023-04-25 2023-04-25 Outpatient R NATALI [facility] [id number] Univers 13:30:00 13:09:23 ALBERTA thao o f [facility] 2023-04-25 2023-04-25 Outpatient R [facility] [id number] Univers 10:00:00 10:00:00 ity of [facility] 2023-04-24 2023-04-24 Cardiology Technician Mary, Jade Lab Main [facility] 1.2.8 40.114 [id number] Univers 11:15:00 11:30:00 Visit Tari Trivedi 350.1.13.10 ity [facility] [place] [id number] Md dical [facility] [address] [facility] 2023-04-24 2023-04-24 Outpatient R MEGHANA [facility] [id number] Univers 11:15:00 11:15:00 TARI ity [facility] 2023-04-24 2023-04-24 Orders Doctor PAOLA 1.2.840.114 [id number] Univers 00:00:00 00:00:00 Only Unassigned, RISSA 350.1.13.10 ity of [facility] 4.2.7.2.686 Jerome as [phone] [address] 2023-04-18 2023-04-18 Outpatient R PHILLIP [facility] [id number] Univers 08:40:00 08:52:18 AVE ity [facility] 2023-04-18 2023-04-18 Office [facility] 1.2.840.114 [id number] [facility] 08:40:00 08:52:[address] Neela JACKSON 350.1.13.10 i ty of [facility] [place] [id number] [address] 2023-04-12 2023-04-12 Telephone [facility] [id number] Univers 00:00:00 00:00:00 Sendil Otilia JACKSON 350.1.13.10 ity of [place] [id number] [address] 2023-03-31 2023-03-31 [place] [facility] 1.2.005.657 [id number] Univers 00:00:00 00:00:00 Sendanastasiya JACKSON 350.1.13.10 ity of [facility] 4.[place] [id number] [address] 2023-03-22 2023-03-22 Outpatient Moise TILLMAN [facility] [id number] Univers 07:37:19 23:59:00 SENDIL ity [facility] 2023-03-17 2023-03-17 [place] [facility] [id number] Univers 00:00:00 00:00:00 Sendil Otilia JACKSON 350.1.13.10 ity of [place] [id number] [address] 2023-03-13 2023-03-13 Outpatient Moise TILLMAN [facility] [id number] Univers 08:30:00 08:30:00 SENDIL ity [facility] 2023-03-09 2023-03-09 Outpatient R PRIMO [facility] [id number] Univers 08:11:41 23:59:00 SENDIL ity [facility] 2023-03-02 2023-03-02 Orders Doctor GUEVARA 1.2.840.114 [id number] Univers 00:00:00 00:00:00 Only Unassigned, RISSA 350.1.13.10 ity of [place] [facility] 4.2.7.2.686 Jerome as [id number] [address] 2023-02-28 2023-02-28 Outpatient R PRIMO [facility] [id number] Univers 09:30:00 09:39:07 SENDIL ity [facility] 2023-02-28 2023-02-28 Office [facility] 1.2.840.114 [id number] Univers 09:30:00 09:39:07 Visit Patrick JACKSON 350.1.13.10 ity [facility] [place]2.7.2.[place] [id number] Md dical [address] 2023-01-31 2023-01-31 Outpatient R NATALI [facility] [id number] Univers 13:00:00 13:50:11 ALBERTA thao o f [facility] 2023-01-31 2023-01-31 Office [facility] 1.2.285.796 [id number] Univers 13:00:00 13:50:11 Visit Alberta Chaparro JOB PRINTER 350.1.13.10 ity of [facility] 4.2.7.2.686 Jerome as MATERNAL [id number] Med ical & CHILD [address] [place] [address] 2023-01-31 2023-01-31 Outpatient R NATALI [facility] [id number] Univers 13:00:00 13:00:00 ALBERTA thao o f [facility] 2023-01-27 2023-01-27 Orders Doctor GUEVARA 1.2.840.114 [id number] Univers 00:00:00 00:00:00 Only Unassigned, RISSA 350.1.13.10 ity of [place] [facility] 4.2.7.2.686 Jerome as [id number] [address] 2023-01-04 2023-01-04 [facility] [id number] Univers 09:30:00 09:30:00 OBED itjake [facility] 2023-01-04 2023-01-04 Orders Doctor PAOLA 1.2.840.114 [id number] Univers 00:00:00 00:00:00 Only Unassigned, RISSA 350.1.13.10 ity of [facility] 4.2.7.2.686 Jerome as [id number] [address] 2022-12-02 2022-12-02 Orders Doctor PAOLA 1.2.840.114 [id number] Univers 00:00:00 00:00:00 Only Unassigned, RISSA 350.1.13.10 ity of [place] [facility] 4.2.7.2.686 Jerome as [id number] [address] 2022-11-08 2022-11-08 Outpatient R ELICEO [facility] [id number] Univers 10:30:00 10:30:00 VANDANA crystal [facility] 2022-11-08 2022-11-08 [facility] [id number] Univers 08:30:00 09:39:24 ALBERTA crystal [facility] 2022-11-08 2022-11-08 Nurse Visit, José LuisRmchp Nurse [facility] 1.2 .840.114 [id number] Univers 08:30:00 09:39:24 Visit Alberta Hurst JOB PRINTER 350.1.13. 10 ity of [facility] 4.2.7.2.686 Jerome as MATERNAL [id number] [facility] ical & CHILD [address] [place] [address] 2022-10-25 2022-10-25 Outpatient [facility] Hi 09:17:48 09:17:48 F Collins 2022-10-13 2022-10-13 Outpatient SFA [facility] Hi 15:50:42 15:50:42 F Collins 2022-10-10 2022-10-10 Outpatient [facility] Hi 09:55:32 09:55:32 F Sarmad 2022-08-29 2022-08-29 Outpatient R LUCINA [facility] [id number] Univers 12:13:33 23:59:00 MANAF ity [facility] 2022-08-29 2022-08-29 [facility] 1.2.840.114 [id number] Univers 12:13:33 23:59:00 Encounter Precious JACKSON 350.1.13.10 ity of [place].2.[place] [id number] [facility] [address] [place] 2022-08-17 2022-08-17 Cardiology Technician Mary, Adc Lab Main [facility] 1.2.8 40.114 [id number] Univers 09:30:00 09:45:00 Visit Tari Trivedi 350.1.13.10 ity [facility] 4.2.7.2.686 [facility] [id number] Md dic[address] 2022-08-17 2022-08-17 Outpatient R MEGHANA [facility] [id number] Univers 09:30:00 09:30:00 TARI thao [facility] 2022-08-11 2022-08-11 Out[facility] [id number] Univers 11:00:00 12:03:20 ALBERTA stanley [facility] 2022-08-11 2022-08-11 Office [facility] 1.2.168.175 [id number] Univers 11:00:00 12:03:20 Visit Alberta Chaparro JOB PRINTER 350.1.13.10 ity of [facility] 4.2.7.2.686 Jerome as MATERNAL [id number] Med ical & CHILD [address] [place] [address] 2022-08-11 2022-08-11 Orders Doctor PAOLA 1.2.840.114 [id number] Univers 00:00:00 00:00:00 Only Unassigned, RISSA 350.1.13.10 ity of [place] [facility] 4.2.7.2.686 Jerome as [id number] [facility] [address] [place] 2022-08-09 2022-08-09 Outpatient Moise FENTON [facility] [id number] Univers 10:00:00 10:00:00 VANDANA crystal lizeth [facility] 2022-08-09 2022-08-09 Nurse [facility], [facility] 1.2 .840.114 [id number] [facility] 10:00:00 10:00:00 Visit Vandana Fenton Moise JOB PRINTER 350.1.13.10 ity of [facility] 4.2.7.2.686 Jerome as MATERNAL [id number] [facility] [address] [place] [address] 2022-05-17 2022-05-17 Nurse Visit, José [facility] 1.2 .840.114 [id number] [facility] 09:00:00 09:27:11 Visit Vandana Fenton JOB PRINTER 350.1.13.10 ity of [facility] 4.2.7.2.686 Jerome as MATERNAL [id number] [facility] & CHILD [address] [place] [address] 2022-05-17 2022-05-17 Outpatient R ELICEO [facility] [id number] Univers 09:00:00 09:00:00 VANDANA crystal lizeth [facility] 2022-02-14 2022-02-14 Nurse Visit, [facility] 1.2 .840.114 [id number] Univers 09:30:00 09:48:50 Visit Vandana Fenton Moise JOB PRINTER 350.1.13.10 ity of [facility] 4.2.7.2.686 Jerome as MATERNAL [id number] [facility] & [address] 2022-02-14 2022-02-14 Outpatient R [facility] [id number] Univers 09:30:00 09:30:00 ity [facility] 2022-02-14 2022-02-14 Outpatient R ELICEO [facility] [id number] Univers 09:30:00 09:30:00 VANDANA thao o f [facility] 2022-01-27 2022-01-27 Outpatient R MAHNAZ [facility] [id number] Univers 13:00:00 13:00:00 DELILAH [facility] 2022-01-05 2022-01-05 Outpatient R SABRINA WOOTEN [facility] [id number] Univers 07:56:31 23:59:00 ity of [facility] 2022-01-05 2022-01-05 Hospital Sabrina Wooten [facility] 1.2.840.114 [id number] Univers 07:56:31 23:59:00 Encounter Rp MANUEL 350.1.13.10 ity of [place] [phone] [facility] [address] 2021-12-27 2021-12-27 [facility] [id number] Univers 08:30:00 08:30:00 WONDIFUL ity o f [facility] 2021-12-24 2021-12-24 Cardiology Technician [facility] 1.2.840.114 [id number] Univers 10:30:00 10:45:00 Visit Sabrina Wooten [facility] 350.1.13.10 ity of [facility] [place].2.7.2.[place] [phone] [facility] [address] 2021-12-24 2021-12-24 Office Sabrina Wooten NORISRAMSESDONTAFidel 1.2.840.114 [id number] Univers 09:20:00 09:40:00 Visit Rp H 350.1.13.10 it y of [facility] 4.2.7.2.686 Jerome as [phone] [facility] [address] 2021-12-24 2021-12-24 Outpatient R SABRINA WOOTEN [facility] [id number] Univers 09:20:00 09:20:00 ity of [facility] 2021-12-15 2021-12-15 Outpatient [facility] [id number] Univers 08:30:00 08:30:00 MIREILLENDA ity o f [facility] 2021-12-13 2021-12-13 [facility]phone [facility] 1.2.840.114 [id number] Univers 00:00:00 00:00:00 Alberta Chaparro JOB PRINTER 350.1.13.10 ity of [facility] 4.2.7.2.686 Jerome as MATERNAL [phone] Med ical & CHILD [address] [place] [address] 2021-12-09 2021-12-09 Outpatient R NATALI [facility] [id number] Univers 14:15:00 14:28:57 ALBERTA thao o f [facility] 2021-12-09 2021-12-09 Office [facility] 1.2.780.628 [id number] Univers 14:15:00 14:28:57 Visit Alberta Chaparro JOB PRINTER 350.1.13.10 ity of [facility] 4.2.7.2.686 Jerome as MATERNAL [phone] [facility] ical & CHILD [address] [place] [address] 2021-12-07 2021-12-07 Telephone [facility] 1.2.173.359 [id number] Univers 00:00:00 00:00:00 Vandana Phipps JOB PRINTER 350.1.13.10 ity of [facility] 4.2.7.2.686 Jerome as MATERNAL [id number] [facility] & CHILD [address] [place] [address] 2021-12-03 2021-12-03 Telephone [facility] 1.2.840.114 [id number] Univers 00:00:00 00:00:00 Alberta Chaparro JOB PRINTER 350.1.13.10 ity of [facility] 4.2.7.2.686 Jerome as MATERNAL [id number] [facility] & CHILD [address] [place] [address] 2021-12-02 2021-12-02 Orders Doctor PAOLA 1.2.840.114 [id number] Univers 00:00:00 00:00:00 Only Unassigned, RISSA 350.1.13.10 ity of [place] [facility] 4.2.7.2.686 Jerome as [phone] [address] 2021-11-30 2021-11-30 Telephone [facility] 1.2.840.114 [id number] Univers 00:00:00 00:00:00 Pritesh Haines JOB PRINTER 350.1.13.10 it y of [facility] 4.2.7.2.686 Jerome as MATERNAL [phone] [facility] [address] [place] [address] 2021-11-22 2021-11-22 Outpatient R AKINSIPE, [facility] [id number] Univers 09:15:00 10:06:01 ALBERTA thao o [facility] 2021-11-22 2021-11-22 Office [facility] 1.2.007.447 [id number] Univers 09:15:00 10:06:01 Visit Alberta C JOB PRINTER 350.1.13.10 ity of [facility] 4.2.7.2.686 Jerome as MATERNAL [phone] [facility] & [address] 2021-11-22 2021-11-22 Outpatient R AKINISAIPE, [facility] [id number] Univers 09:15:00 10:06:01 ALBERTA barrigay o [facility] 2021-11-22 2021-11-22 Outpatient R AKINSIPE, [facility] [id number] Univers 09:15:00 10:06:01 ALBERTA barrigay o [facility] 2021-11-22 2021-11-22 Outpatient R AKINISAIPE, [facility] [id number] Univers 09:15:00 09:15:00 ALBERTA barrigay o [facility] 2021-10-19 2021-10-19 Telephone [facility] 1.2.840.114 [id number] Univers 00:00:00 00:00:00 [facility] A [facility] 350.1.13.10 [facility] 4.2.7.2.686 Jerome as LAN?BLEA [phone] [address] MEDICAL OFFICE [facility] 2021-10-13 2021-10-13 Telephone [facility] 1.2.840.114 [id number] Univers 00:00:00 00:00:00 Alberta C JOB PRINTER 350.1.13.10 ity of [facility] 4.2.7.2.686 Jerome as MATERNAL [phone] [facility] & [address] 2021-10-12 2021-10-12 Outpatient R JOSE CARLOS, [facility] [id number] Univers 09:00:00 09:00:00 [facility] 2021-10-02 2021-10-02 Telephone [facility] 1.2.988.083 [id number] Univers 00:00:00 00:00:00 Brad SPECIALTY 350.1.13.10 ity of [place].2.686 [place] CENTER AT [phone] Md moy Forbes [facility] 2021-09-30 2021-09-30 Outpatient R DIANA [facility] [id number] Univers 11:00:00 11:19:40 WONDIFUL ity o f [facility] 2021-09-30 2021-09-30 Office [facility] 1.2.840.114 [id number] Univers 10:49:51 11:19:40 Visit Wondiful A HEALTH 350.1.13.10 ity of [place] 4.2.7.2.686 Jerome as LAN?BLEA [phone] Md moy CROW 044 [facility] OFFICE [facility] 2021-09-30 2021-09-30 Telephone [facility] 1.2.840.114 [id number] Univers 00:00:00 00:00:00 Wondiful A HEALTH 350.1.13.10 ity of [place] 4.2.7.2.686 Jerome as LAN?BLEA [phone] Md moy CROW [address] [place] [address] OFFICE [facility] 2021-09-15 2021-09-15 Telephone [facility] 1.2.840.114 [id number] Univers 00:00:00 00:00:00 Wondiful A HEALTH 350.1.13.10 ity of [place] 4.2.7.2.686 Jerome as LAN?BLEA [phone] Md moy CROW [address] [place] [address] OFFICE [facility] 2021-09-09 2021-09-09 Outpatient R NATALI [facility] [id number] Univers 15:00:00 15:00:00 ALBERTA ity o f [facility] 2021-09-09 2021-09-09 Outpatient R JOSE CARLOS [facility] [id number] Univers 14:30:00 14:30:00 BILAL ity [facility] 2021-09-09 2021-09-09 Telephone [facility] 1.2.840.114 [id number] Univers 00:00:00 00:00:00 Wondiful A HEALTH 350.1.13.10 ity of [place] 4.2.7.2.686 Jerome as LAN?BLEA [phone] [address] OFFICE [facility] 2021-09-06 2021-09-06 Refill [facility] 1.2.840.114 [id number] Univers 00:00:00 00:00:00 Wondiful A Health 350.1.13.10 ity of [place] 4.2.7.2.686 Jerome as Professio [phone] [address] One 2021-09-02 2021-09-02 Telephone [facility] 1.2.840.114 [id number] [facility] 00:00:00 00:00:00 Pritesh Haines JOB PRINTER 350.1.13.10 it y of [facility] 4.2.7.2.686 Jerome as MATERNAL [phone] Med ical & CHILD 107 [facility] 2021-09-01 2021-09-01 Ancillary Connie Huddleston [facility] 1.2.8 40.114 [id number] Univers 13:02:05 13:47:05 Visit Jimmy [place] 350.1.13.10 ity of [place].7.2.[place] Profess[place] [phone] [address] 2021-08-30 2021-08-30 Office Barbara [facility] 1.2.840.114 [id number] Univers 09:57:19 11:01:49 Visit [facility] 350.1.13.10 it y of [place] 4.2.7.2.686 Jerome as Lan?Blea [id number] [address] 2021-08-30 2021-08-30 Office [facility] 1.2.507.109 [id number] Univers 08:25:04 09:28:20 Visit Pritesh Haines JOB PRINTER 350.1.13.10 it y of [facility] 4.2.7.2.686 Jerome as MATERNAL [phone] Med ical & CHILD 107 [facility] 2021-08-30 2021-08-30 Outpatient Moise GREENFIELD [facility] [id number] Univers 08:30:00 08:30:00 PRITESH keesha [facility] 2021-08-18 2021-08-18 Ancillary Connie Huddleston [facility] 1.2.8 40.114 [id number] Univers 08:04:55 08:49:55 Visit Jimmy [place] 350.1.13.10 ity of [place].2.[place].2.686 [place] [facility] [phone] Md dical nal 145 [facility] 2021-08-18 2021-08-18 Outpatient Moise MADRID [facility] [id number] Univers 08:45:00 08:45:00 JIMMY thao [facility] 2021 2021 Hospital Jessica [facility] 1.2.840.114 [id number] Univers 11:03:00 12:41:00 Encounter Joshua Keita [facility] 350.1.13.10 ity of [place].2.686 [place] [facility] [phone] [address] ([facility]) 2021 2021 Surgery Jessica [facility] 1.2.840.114 [id number] Univers 10:03:00 10:48:00 Joshua Keita SPECIALTY 350.1.13.10 ity of CARE 4.2.7.2.686 [place] CENTER AT [phone] Md moy VICTORY [address] [facility] 2021 2021 Orders Doctor PAOLA 1.2.840.114 [id number] Univers 00:00:00 00:00:00 Only Unassigned, RISSA 350.1.13.10 ity of [place] [facility] 4.2.7.2.686 Jerome as [phone] [facility] [address] 2021-08-14 2021-08-14 Laboratory Only, Adc Test [facility] 1.2.840. 114 [id number] Univers 09:07:55 09:22:55 Only Joshua Lopez 350.1.13.10 ity [facility] 4.2.7.2.686 [place] [phone] [address] 2021-08-14 2021-08-14 Outpatient R JOSHUA LOPEZ [facility] [id number] Univers 09:15:00 09:15:00 [facility]UA [facility] 2021-08-13 2021-08-13 Outpatient R MAHNAZ [facility] [id number] Univers 10:30:00 10:30:00 DELILAH [facility] 2021-08-09 2021-08-09 Telephone Flaquito [facility] 1.2.840.114 [id number] Univers 00:00:00 00:00:00 Connie [place] 350.1.13.10 ity [facility] 4.2.7.2.686 [place] [facility] [phone] Md dical [address] 2021-08-09 2021-08-09 Telephone Eliceo [facility] 1.2.218.379 [id number] Univers 00:00:00 00:00:00 Vandana R JOB PRINTER 350.1.13.10 ity of [facility] 4.2.7.2.686 Jerome as MATERNAL [phone] Med ical & CHILD [address] [place] [address] 2021-08-09 2021-08-09 Telephone [facility] 1.2.999.610 [id number] Univers 00:00:00 00:00:00 Rossheilanda R JOB PRINTER 350.1.13.10 ity of [facility] 4.2.7.2.686 Jerome as MATERNAL [phone] Med ical & CHILD [address] [place] [address] 2021-08-06 2021-08-06 Office [facility] 1.2.840.114 [id number] Univers 12:45:21 13:15:26 Visit Vandana R JOB PRINTER 350.1.13.10 ity of [facility] 4.2.7.2.686 Jerome as MATERNAL [phone] [facility] ical & CHILD [address] [place] [address] 2021-08-06 2021-08-06 Outpatient R ELICEO [facility] [id number] Univers 13:00:00 13:00:00 MIREILLEMARIOCandice keesha o f [facility] 2021-08-02 2021-08-02 Telephone Flaquito RIALEXANDRA 1.2.840.114 [id number] [facility] 00:00:00 00:00:00 Connie Manuel 350.1.13.10 ity of [place].2.[place] Profess[place] [phone] Md dical nal 145 [facility] 2021-07-29 2021-07-29 Office Brad Barnes [facility] 1.2.840.114 [id number] Univers 10:52:13 14:15:36 Visit Akhil Dumas SPECIALTY 350.1.13.10 ity of C[place] 4.2.7.2.686 [place] CENTER AT [phone] Md moy MARTIN [address] [place] [address] 2021-07-29 2021-07-29 Office Brad Barnes [facility] 1.2.840.114 [id number] Univers 10:52:13 14:15:36 Visit Akhil Dumas SPECIALTY 350.1.13.10 ity of [place] 4.2.7.2.686 [place] CENTER AT [phone] Md moy MARTIN [address] [place] [address] 2021-07-29 2021-07-29 Outpatient R PITER [facility] [id number] Univers 14:00:00 14:00:00 AKHIL thao [facility] 2021-07-26 2021-07-26 Office Liborio [facility] 1.2.516.735 [id number] Univers 09:19:16 10:03:45 Visit Josseline Jackson 350.1.13.10 i ty of [place].2.7.2.686 [place] Professio [phone] Md dicmiguel gannon 188 [facility] 2021-07-26 2021-07-26 Outpatient R LIBORIO [facility] [id number] Univers 09:15:00 09:15:00 JOSSELINE thao [facility] 2021-07-12 2021-07-12 Telephone Flaquito [facility] 1.2.840.114 [id number] Univers 00:00:00 00:00:00 Connie Jackson 350.1.13.10 ity of [place].2.[place] Profess[place] [phone] Md dical nal 145 [facility] 2021-07-10 2021-07-10 Telephone [facility] 1.2.840.114 [id number] Univers 00:00:00 00:00:00 Josseline Jackson 350.1.13.10 i ty of [place].2.7.2.686 [place] [phone] Md dical nal 188 [facility] 2021-07-08 2021-07-08 Office [facility] 1.2.060.615 [id number] Univers 09:45:37 10:23:38 Visit Josseline Jackson 350.1.13.10 i ty of [place] 4.2.7.2.686 [place] Professio [phone] Md dical nal 188 [facility] 2021-07-08 2021-07-08 Outpatient R LIBORIO [facility] [id number] Univers 10:00:00 10:00:00 JOSSELINE [facility] 2021-07-05 2021-07-05 Outpatient R FABIOLA IZAGUIRRE [facility] [id number] Univers 00:00:00 00:00:00 [facility] 2021-06-25 2021-06-25 Outpatient R SABRINA WOOTEN [facility] [id number] Univers 10:20:00 10:20:00 [facility] 2021-06-09 2021-06-09 Outpatient R TRACIE [facility] [id number] Univers 10:30:00 10:30:00 ASHLEY thao o f [facility] 2021-06-03 2021-06-03 Outpatient R FLORIAN [facility] [id number] Univers 11:00:00 11:00:00 KAHS [facility] 2021-05-18 2021-05-18 Outpatient R FABIOLA IZAGUIRRE [facility] RAD [id number] Univers 10:00:00 10:00:00 [facility] 2021-05-11 2021-05-11 Outpatient R [facility] [id number] Univers 18:00:00 18:00:00 ity [facility] 2021-05-07 2021-05-07 Outpatient R NADJA [facility] [id number] Univers 17:20:00 17:20:00 [facility]OLA [facility] 2021-05-07 2021-05-07 Outpatient Moise OLIVA [facility] [id number] Univers 17:15:00 17:15:00 ABUNDIO [facility] 2021-05-05 2021-05-05 Outpatient FABIOLA CHAVEZ [facility] [id number] Univers 10:00:00 10:00:00 [facility] 2021-04-29 2021-04-29 Pre-Anesth Call, [facility] 1.2.840.114 [id number] Univers 08:30:00 08:35:00 [facility] HEALTH 350.1.13.10 ity of Evaluation [place] 4.2.7.2.686 T [facility] [phone] [address] ([facility]) 2021-04-23 2021-04-23 Outpatient GIL WYNNE [facility] [id number] Univers 10:00:00 10:00:00 GIL CORTEZ [facility] 2021-04-21 2021-04-21 Outpatient R [facility] [id number] Univers 09:00:00 09:00:00 [facility] 2021-04-16 2021-04-16 Outpatient R [facility] [id number] Univers 00:00:00 00:00:00 ity [facility] 2021-04-15 2021-04-15 Outpatient FABIOLA CHAVEZ [facility] [id number] Univers 00:00:00 00:00:00 [facility] 2021-04-13 2021-04-13 Outpatient RENATO DILL [facility] [id number] Univers 00:00:00 00:00:00 ity [facility] 2021-04-08 2021-04-08 Outpatient FABIOLA CHAVEZ [facility] [id number] Univers 00:00:00 00:00:00 ity of [facility] 2021-04-02 2021-04-02 Outpatient R ZINA FABIOLA [facility] [id number] Univers 00:00:00 00:00:00 ity of [facility] 2021-03-29 2021-03-29 Outpatient Moise ORTIZ [facility] [id number] Univers 10:30:00 10:30:00 WONDIFUL ity o f [facility] 2021-03-26 2021-03-26 Outpatient RENATO DILL [facility] [id number] Univers 00:00:00 00:00:00 ity [facility] 2021-03-10 2021-03-10 Outpatient RENATO DILL [facility] RAD [id number] Univers 09:00:00 09:00:00 ity [facility] 2021-03-04 2021-03-04 Outpatient RENATO DILL [facility] [id number] Univers 00:00:00 00:00:00 ity [facility] 2021-03-02 2021-03-02 Pre-Anesth Call, [facility] 1.2.840.114 [id number] Univers 13:35:00 13:40:00 esicandice [facility] HEALTH 350.1.13.10 ity of Evaluation [place] 4.2.7.2.686 [facility] [phone] [address] ([facility]) 2021-02-23 2021-02-23 Outpatient Moise REDDY [facility] [id number] Univers 13:30:00 13:30:00 SHAKIR ity [facility] 2021-02-11 2021-02-11 [facility] KATE [place] 1.2.840.114 [id number] 08:34:08 23:59:00 Encounter Shea HEALTH 350.1.13.10 CLINICS 4.2.7.2.686 [id number] 2021-02-11 2021-02-11 Outpatient Moise MEDINA [facility] [id number] Univers 00:00:00 00:00:00 SHEA ity [facility] 2021-02-09 2021-02-09 Renato Salazar [facility] 1.2.840.114 [id number] 00:00:00 00:00:00 Management Gage [facility] 350.1.13.10 CLINICS 4.2.7.2.686 [id number] 2021-02-08 2021-02-08 [facility] 1.2.840.114 [id number] 17:25:00 20:35:00 [facility] 350.1.13.10 [facility] 4.2.7.2.[address] [place] [id number] ([facility]) 2021-02-08 2021-02-08 Outpatient R UNKNOWN, [facility] [id number] Univers 17:30:00 17:30:00 ATTENDING [facility] 2021-02-08 2021-02-08 Outpatient R SHAYNA III, [facility] [id number] Univers 16:00:00 16:00:00 DAVID [facility] 2021-02-08 2021-02-08 Outpatient R JUSTIN, [facility] [id number] Univers 16:00:00 16:00:00 COCO thao o lizeth [facility] 2021-02-08 2021-02-08 [facility] [id number] Univers 00:00:00 00:00:00 SHEA [facility] 2021-02-04 2021-02-04 Telephone Fabiola Izaguirre [facility] 1.2.840.11 [id number] 00:00:00 00:00:00 Y [facility] 350.1.13.10 [facility] 4.2.7.2.686 [id number] 2021-02-02 2021-02-02 [facility] [id number] Univers 13:30:00 13:30:00 [facility] 2021-02-02 2021-02-02 [facility] [id number] Univers 12:30:00 12:30:00 [facility] 2021-02-02 2021-02-02 [facility] 1.2.840.114 [id number] 00:00:00 00:00:00 [facility] 350.1.13.10 [facility] 4.2.7.2.686 AMA [id number] 388 2021-01-28 2021-01-28 [facility] Fabiola Izaguirre KATE 1.2.840.114 [id number] 08:35:41 23:59:00 Encounter Y HEALTH 350.1.13.10 [facility] 4.2.7.2.686 [id number] 2021-01-28 2021-01-28 Outpatient R [facility] [id number] Univers 00:00:00 00:00:00 [facility] 2021-01-27 2021-01-27 Nurse Nurse, [facility] 1.2.840.114 [id number] 09:18:25 09:32:38 Visit [facility]'s [place] 350.1.13.10 [facility] 4.2.7.2.686 Ariel [id number] [facility] 134 [facility] 2021-01-27 2021-01-27 Outpatient R [facility] [id number] Univers 09:00:00 09:00:00 ity [facility] 2021-01-22 2021-01-22 Office SugarSabrina harvey 1.2.840.114 [id number] 09:34:26 11:19:10 Visit Rp H 350.1.13.10 [facility] 4.2.7.2.686 [id number] 2021-01-22 2021-01-22 Outpatient R SABRINA WOOTEN [facility] [id number] Univers 10:20:00 10:20:00 ity [facility] 2021-01-08 2021-01-08 Outpatient R YOVANNY CHOI [facility] [id number] Univers 11:00:00 11:00:00 ity [facility] 2021-01-04 2021-01-04 Outpatient R DIANA [facility] [id number] Univers 10:45:00 10:45:00 WONDIFUL ity o f [facility] 2020-12-18 2020-12-18 Outpatient R FABIOLA IZAGUIRRE [facility] [id number] Univers 10:30:00 10:30:00 ity of [facility] 2020-12-04 2020-12-04 Outpatient R DIANA [facility] [id number] Univers 10:00:00 10:00:00 WONDIFUL ity o f [facility] 2020-12-03 2020-12-03 Outpatient R DIANA [facility] [id number] Univers 13:30:00 13:30:00 WONDIFUL ity o f [facility] 2020-12-03 2020-12-03 Outpatient R [facility] [id number] Univers 10:00:00 10:00:00 ity of [facility] 2020-12-01 2020-12-01 Outpatient R [facility] [id number] Univers 00:00:00 00:00:00 ity of [facility] 2020-11-17 2020-11-17 Outpatient R [facility] [id number] Univers 10:30:00 10:30:00 ity of [facility] 2020-11-10 2020-11-10 Outpatient R FELICIANO [facility] [id number] Univers 14:40:00 14:40:00 OMAYEMI ity [facility] 2020-11-09 2020-11-09 Outpatient R FABIOLA IZAGUIRRE [facility] [id number] Univers 00:00:00 00:00:00 ity of [facility] 2020-10-29 2020-10-29 Outpatient R ROSANA RANDHAWA [facility] [id number] Univers 14:30:00 14:30:00 ity of [facility] 2020-10-28 2020-10-28 Outpatient R [facility] [id number] Univers 00:00:00 00:00:00 ity of [facility] 2020-10-23 2020-10-23 Outpatient R [facility] [id number] Univers 14:00:00 14:00:00 ity of [facility] 2020-10-23 2020-10-23 (TEL) STLMLC STLMLC [id number] Co mmon 00:00:00 00:00:00 [facility] 2020-10-22 2020-10-22 (TEL) STLMLC STLMLC [id number] Co mmon 00:00:00 00:00:00 [place] [facility] 2020-10-22 2020-10-22 OFFICE STLMLC STLMLC [id number] Co mmon 00:00:00 00:00:00 VISIT EST Spir it PT LEVEL 3 - [facility] 2020-10-20 2020-10-20 Outpatient R [facility] [id number] Univers 10:00:00 10:00:00 ZACH ity [facility] 2020-10-19 2020-10-19 Outpatient R RANDHAWAROSANA [facility] [id number] Univers 13:30:00 13:30:00 ity [facility] 2020-10-10 2020-10-10 Telephone Brian Edwards [id number] 00:00:00 00:00:00 H [id number] [facility] [id number] 2020-10-02 2020-10-02 Outpatient R SABRINA WOOTEN [facility] [id number] Univers 00:00:00 00:00:00 ity [facility] 2020-09-29 2020-09-29 Outpatient R BRIAN EDWARDS [facility] [id number] Univers 08:30:00 08:30:00 ity [facility] 2020-09-28 2020-09-28 Outpatient R BRIAN EDWARDS [facility] [id number] Univers 00:00:00 00:00:00 ity [facility] 2020-09-24 2020-09-24 Outpatient R ROSANA RANDHAWA [facility] [id number] Univers 08:00:00 08:00:00 ity [facility] 2020-09-19 2020-09-19 (TEL) STLMLC STLMLC [id number] Co mmon 00:00:00 00:00:00 [facility] 2020-09-14 2020-09-14 Outpatient R [facility] [id number] Univers 09:00:00 09:00:00 ity [facility] 2020-09-14 2020-09-14 OFFICE STLMLC STLMLC [id number] Co mmon 00:00:00 00:00:00 VISIT EST Spir it PT LEVEL 3 - [facility] 2020-09-09 2020-09-09 Outpatient R NATALI [facility] [id number] Univers 13:15:00 13:15:00 ALBERTA thao o f [facility] 2020-09-03 2020-09-03 ([place]) [facility] [id number] Common 00:00:00 00:00:00 Visit [facility] 2020-09-01 2020-09-01 (TEL) STLMLC STLC [id number] Co mmon 00:00:00 00:00:00 [facility] 2020-08-28 2020-08-28 Outpatient [facility] [id number] Univers 11:00:00 11:00:00 [facility] 2020-08-27 2020-08-27 [facility] [id number] Univers 14:30:00 14:30:00 PRITESH [facility] 2020-08-25 2020-08-25 Outpatient R JEAN PIERRE [facility] [id number] Univers 14:30:00 14:30:00 PRITESH [facility] 2020-08-12 2020-08-12 OL DIG E/[facility] [id number] Common 00:00:00 00:00:00 C 11-20 Spir it MIN [facility] 2020-08-11 2020-08-11 (TEL) STLMLC STLC [id number] Co mmon 00:00:00 00:00:00 [facility] 2020-08-07 2020-08-07 Outpatient Moise WOOTEN ELTYNile [facility] [id number] Univers 10:40:00 10:40:00 [facility] 2020-07-23 2020-07-23 Outpatient [facility] [id number] Common 11:20:00 11:20:[address] [employer] [address] [facility] 2020-05-28 2020-05-28 [facility]patient [facility] [id number] Univers 10:30:00 10:30:00 HI [facility] 2020-05-11 2020-05-11 Outpatient [facility] [id number] Common 16:25:00 16:25:[address] [facility] 2020-05-08 2020-05-08 Outpatient Moise WOOTENLETYNile [facility] [id number] Univers 11:00:00 11:00:00 ity [facility] 2020-05-01 2020-05-01 Outpatient [facility] [id number] Common 13:06:00 13:06:00 [address] Sp[address] [facility] 2020-04-23 2020-04-23 Outpatient [facility] [id number] Common 14:25:00 14:25:00 [address] Spir it [address] [facility] 2020-04-16 2020-04-16 Outpatient [facility] [id number] Common 13:06:00 13:06:00 [address] Spir it [address] [facility] 2020-04-16 2020-04-16 Out[facility] [id number] Common 10:40:00 10:40:00 [address] Spir [address] [facility] 2020-04-13 2020-04-13 Outpatient [facility] [id number] Common 13:19:00 13:19:00 [address] Spir it [address] [facility] 2020-04-13 2020-04-13 Out[facility] [id number] Common 11:29:00 11:29:00 [address] Spir it [address] [facility] 2020-04-01 2020-04-01 Outpatient Moise PABLO [facility] [id number] Univers 13:30:00 13:30:00 RAJ ity [facility] 2020-03-27 2020-03-27 Outpatient SABRINA TRAN [facility] [id number] Univers 09:20:00 09:20:00 ity [facility] 2020-01-17 2020-01-17 Outpatient SABRINA TRAN [facility] [id number] Univers 09:00:00 09:00:00 ity [facility] 2020-01-15 2020-01-15 Outpatient [facility] [id number] Common 12:20:00 12:20:00 [address] Spir it [address] [facility] 2020-01-08 2020-01-08 Outpatient [facility] [id number] Common 08:53:00 08:53:00 [address] Spir it [address] [facility] 2019-12-14 2019-12-14 Emergency X SARAITODDBib, [facility] [id number] Univers 01:43:55 04:36:00 YANIQUE thao [facility] 2019-11-07 2019-11-07 Emergency X ANDRE III, [facility] [id number] Univers 12:42:39 15:48:00 MARCELO jake [facility] 2019-10-28 2019-10-28 Outpatient [facility] [id number] Common 09:40:00 09:40:00 [address] Spir it [address] [facility] 2019-10-25 2019-10-25 Outpatient Moise GREENFIELD [facility] [id number] Univers 07:47:33 07:47:00 HI thao [facility] 2019-09-03 2019-09-03 Outpatient [facility] [id number] Common 16:57:00 16:57:00 [address] Spir it [facility] 2019-08-27 2019-08-27 Out[facility] [id number] Common 08:40:00 08:40:00 [address] Spir it [facility] 2019-08-22 2019-08-22 Out[facility] [id number] Common 09:20:00 09:20:00 [address] Spir it Drive [facility] 2019-08-05 2019-08-05 Out[facility] [id number] Common 16:00:00 16:00:00 [address] Spir it [facility] 2019-03-01 2019-03-01 Out[facility] [id number] Common 09:40:00 09:40:00 [address] Spir it [facility] 2019-01-25 2019-01-25 Out[facility] [id number] Common 09:30:00 09:30:00 [address] Spir it [facility] 2018-10-26 2018-10-26 [facility] [id number] Common 09:30:00 09:30:00 [address] Spir it Drive [facility] 2018-07-27 2018-07-27 [facility] [id number] Common 10:15:00 10:15:00 [address] Spir it [facility] 2018-05-01 2018-05-01 [facility] [id number] [place] 09:15:00 09:15:00 t; ALFREDO, Division of Ph jai EUGENE M.D. Medical ans Trace FUENTES M.Keshia 2018-05-01 2018-05-01 [facility] [id number] [place] 08:45:00 08:45:00 t; ALONZO GONZALES, Division of Geovannai ALONZO WAGNER M.D. Medical ans [facility] 2018-04-27 2018-04-27 [facility] [id number] Common 10:15:00 10:15:00 [address] Spir it Drive [facility] 2017-05-08 2017-05-08 CHRISTINE Dorman [facility] [id number] [place] 09:00:00 09:00:00 t; Geovanna FUENTES i, M.D. ans JOSHUA, M.D. 2017-02-28 2017-02-28 CHRISTINE Dorman [facility] [id number] [place] 09:45:00 09:45:00 t; Geovanna FUENTES i, M.D. ans JOSHUA, M.D. 2017-02-28 2017-02-28 CHRISTINE Cowan [facility] [id number] [place] 09:45:00 09:45:00 t; CHRISTIAN, Akilah WOODS M.D. ans M.D. 2017-02-28 2017-02-28 [facility] UTP [id number] [place] 09:30:00 09:30:00 Reji Weiss ans HOPE, M.D. Results Test Description Test Time Test Comments Results Result Comments Source HIV 1/2 AG-AB WITH REFLEX 2022-08-17 17:57:25 Test Item Value Reference Range Interpretation Comme nts HIV Semi-quantitative (test code = Negative Negative 53726-8) [place] (test code = [place]) Non-reactive for HIV-1 antigen and HIV-1/HIV-2 antibodies. ?No laboratory evidence of HIV infection. ?Repeat in 2-4 weeks if acute HIV infection is suspected. [facility] METABOLIC PANEL (NA, K, CL, CO2, GLUCOSE, BUN, CREATININE, CA)2022-08-17 17:21:19 Test Item Value Reference Range Interpretation Comments NA (test code = 142 mmol/L 135-145 1120445462) K (test code = 4.9 mmol/L 3.5-5 3369335605) CL (test code = 106 mmol/L 98-108 0196782088) CO2 TOTAL (test code = 21 mmol/L 23-31 L 6448608066) AGAP (test code = 2-16 6580171633) BUN (test code = 25 mg/dL 7-23 H 2463318021) GLUCOSE (test code = 95 mg/dL 70-110 6255114628) CREATININE (test code = 2.10 mg/dL 0.5-1.04 H 9812841115) CALCIUM (test code = 9.8 mg/dL 8.6-10.6 0052387187) eGFR (test code = mL/min/1.73m2 1169888694) [place] (test code = [place]) Association of [...] tests). Lab Interpretation Abnormal (test code = 92577-8) [facility] 17:20[facility]59 Test Item Value Reference Range Interpretation Comments PHOSPHORUS (test code = 7924306931) 3.6 mg/dL 2.5-5 Lab Interpretation (test code = Normal 12330-9) [id number] 17:20:59 Test Item Value Reference Range Interpretation Comments URIC ACID (test code = 0139172927) 8.5 mg/dL 2.9-6 H Lab Interpretation (test code = Abnormal 85114-0) [facility] [id number] 15:27:41 Test Item Value Reference Range Interpretation Comments WBC (test code = See_Comment [Automated 9181-2) message] The sy stem which generated this result transmitted reference range : 4.30 - 11.10 10*3/?L. The reference range was not used to interpret this result as normal/abnormal . RBC (test code = See_Comment [Automated 346-4) message] The sy stem which generated this [...] RDW-SD (test code = 42.8 fL 39-49.9 38758-7) RDW-CV (test code = 12.3 % 12-15.5 788-0) PLT (test code = See_Comment H [Automated 777-3) message] The sy stem which generated this result transmitted reference range : 166 - 358 10*3/ ?L. The reference r tabitha was not used to interpret this result as normal/abnormal . MPV (test code = 9.5 fL 9.5-12.9 67605-7) NRBC/100 WBC (test See_Comment [Automat ed code = 5701942055) message] The system which generated this result transmitted reference range : 0.0 - 10.0 /100 WBCs. The refer ence range was not u sed to interpret th is result as normal/abnormal . NRBC x10^3 (test code See_Comment [Auto mated = 7151524447) message] The s ystem which generated this result transmitted reference range : 10*3/?L. The reference range was not used to interpret this result as normal/abnormal . GRAN MAT (NEUT) % 68.1 % (test code = 770-8) IMM GRAN % (test code 0.70 % = 5844577829) LYMPH % (test code = 24.1 % 736-9) MONO % (test code = 6.0 % 5905-5) EOS % (test code = 0.6 % 713-8) BASO % (test code = 0.5 % 706-2) GRAN MAT x10^3(ANC) 5.47 10*3/uL 1.88-7.09 (test code = 3197538555) IMM GRAN x10^3 (test 0.06 10*3/uL 0-0.06 code = 9060180140) LYMPH x10^3 (test code 1.94 10*3/uL 1.32-3.29 = 731-0) MONO x10^3 (test code 0.48 10*3/uL 0.33-0.92 = 742-7) EOS x10^3 (test code = 0.05 10*3/uL 0.03-0.39 711-2) BASO x10^3 (test code 0.04 10*3/uL 0.01-0.07 = 704-7) Lab Interpretation Abnormal (test code = 48760-9) [facility], THIRD [id number] 05:36:56 Test Item Value Reference Range Interpretation Comments TSH, THIRD 2.460 UIU/ML 0.400-4.100 UNLESS OTHERWI SE GENERATION (test INDICATED, ALL TESTING code = 2821) PERFORMED [facility], [facility] [address] [place] [id number] [place] [address] DIRECTOR: ARNIE HAYES M.D. [place] NUMBER [id number] CAP ACCREDITATION N O. [id number] COMPREHENSIVE METABOLIC [id number] 03:24:51 Test Item Value Reference Range Interpretation Comments GLUCOSE (test code = 104 MG/DL 70-99 H 2216) BUN (test code = 33 MG/DL 6-20 H 2207) CREATININE (test 1.95 MG/DL 0.60-1.30 H code = 2214) eGFR (2020 CKD-EPI) 35 ML/MIN/1.73 >60 L (test code = 27293) CALC BUN/CREAT (test 17 RATIO 6-28 code = 2235) SODIUM (test code = 140 MEQ/L 268-905 1289) POTASSIUM (test code 4.2 MEQ/L 3.5-5.4 = [...] code = 11 U/L 5-40 2218) FERRITIN [id number] 19:05:22 Test Item Value Reference Range Interpretation Comments FERRITIN (test code = 203.0 ng/mL 6.0-137.0 H 9904610503) [place] (test code = [place]) Biotin has been reported to cause a negative bias, interpret results relative to patient's use of biotin. Lab Interpretation (test Abnormal code = 65088-7) [facility] IRON BINDING [id number] 18:37:34 Test Item Value Reference Range Interpretation Comments TIBC (test code = 7124684159) 271 ug/dL 250-410 Lab Interpretation (test code = Normal 75095-4) [facility]. METABOLIC PANEL ([id number])2021-12-24 18:27:10 Test Item Value Reference Range Interpretation Comments NA (test code = 140 mmol/L 135-145 4581702465) K (test code = 4.7 mmol/L 3.5-5.0 8791741322) CL (test code = 108 mmol/L 98-108 5625843543) CO2 TOTAL (test code = 21 mmol/L 23-31 L 2194379698) AGAP (test code = 2-16 4022761542) BUN (test code = 22 mg/dL 7-23 9185119395) GLUCOSE (test code = 83 mg/dL 70-110 1851684382) CREATININE (test code = 2.00 mg/dL 0.50-1.04 H 4980008033) TOTAL BILI (test code = 0.4 mg/dL 0.1-1.8 7254247140) CALCIUM (test code = 9.7 mg/dL 8.6-10.6 2607900596) T PROTEIN (test code = 8.4 g/dL 6.3-8.2 H 7482859600) ALBUMIN (test code = 4.6 g/dL 3.5-5.0 2962215326) ALK PHOS (test code = 125 U/L 34-122 H 7084444160) ALTv (test code = 13 U/L 5-35 1742-6) AST(SGOT) (test code = 20 U/L 13-40 7934246000) eGFR (test code = mL/min/1.73m2 4122704473) [place] (test code = [place]) Association of [...] tests). Lab Interpretation Abnormal (test code = 97722-3) [facility] WITH [id number] 18:10:27 Test Item Value Reference Range Interpretation [...] RDW-SD (test code = 42.7 fL 39.0-49.9 18345-8) RDW-CV (test code = 12.4 % 12.0-15.5 788-0) PLT (test code = See_Comment H [Automated 777-3) message] The sy stem which generated this result transmitted reference range : 166 - 358 10*3/ ?L. The reference r tabitha was not used to interpret this result as normal/abnormal . MPV (test code = 9.9 fL 9.5-12.9 40671-4) NRBC/100 WBC (test See_Comment [Automat ed code = 7064290491) message] The system which generated this result transmitted reference range : 0.0 - 10.0 /100 WBCs. The refer ence range was not u sed to interpret th is result as normal/abnormal . NRBC x10^3 (test code <0.01 See_Comment [Auto mated = 1672387223) message] The s ystem which generated this result transmitted reference range : 10*3/?L. The reference range was not used to interpret this result as normal/abnormal . GRAN MAT (NEUT) % 66.2 % (test code = 770-8) IMM GRAN % (test code 1.20 % = 6834163275) LYMPH % (test code = 24.3 % 736-9) MONO % (test code = 7.1 % 5905-5) EOS % (test code = 0.8 % 713-8) BASO % (test code = 0.4 % 706-2) GRAN MAT x10^3(ANC) 7.14 10*3/uL 1.88-7.09 H (test code = 1788981622) IMM GRAN x10^3 (test 0.13 10*3/uL 0.00-0.06 H code = 6624601637) LYMPH x10^3 (test code 2.62 10*3/uL 1.32-3.29 = 731-0) MONO x10^3 (test code 0.76 10*3/uL 0.33-0.92 = 742-7) EOS x10^3 (test code = 0.09 10*3/uL 0.03-0.39 711-2) BASO x10^3 (test code 0.04 10*3/uL 0.01-0.07 = 704-7) Lab Interpretation Abnormal (test code = 12478-0) [facility]. Metabolic Panel (14) ([facility])2020-10-22 00:00:00 Test Item Value Reference Range Interpretation Comments Glucose (test code = 2345-7) 83 65-99 BUN (test code = 3094-0) 14 6-20 Creatinine (test code = 2160-0) 1.10 0.57-1.00 eGFR If NonAfricn Am (test code = 68 >59 96168-2) eGFR If Africn Am (test code = 38626-6) 78 >59 BUN/Creatinine Ratio (test code = 08-05 3097-3) Sodium (test code = 2951-2) 140 134-144 Potassium (test code = 2823-3) 4.9 3.5-5.2 Chloride (test code = 2075-0) 106 96-106 Carbon Dioxide, Total (test code = -2027-) Calcium (test code = 17579-3) 9.6 8.7-10.2 Protein, Total (test code = 2885-2) 7.6 6.0-8.5 Albumin (test code = 1751-7) 4.3 3.9-5.0 Globulin, Total (test code = 81680-4) 3.3 1.5-4.5 A/G Ratio (test code = 1759-0) 1.3 1.2-2.2 Bilirubin, Total (test code = 1975-2) 0.2 0.0-1.2 Alkaline Phosphatase (test code = 115 39-117 6768-6) AST (SGOT) (test code = 1920-8) 30 0-40 ALT (SGPT) (test code = 1742-6) 32 0-32 CBC With Differential/[id number] 00:00:00 Test Item Value Reference Range Interpretation [...] Granulocytes (test code = 1 Not Estab. 09070-2) Immature Grans (Abs) (test code = 0.1 0.0-0.1 97922-6) NRBC (test code = 72366-9) Hematology Comments: (test code = 01589-1) [O] Urine Dipstick (In Office)2018-05-01 10:25:00 Test Item Value Reference Range Interpretation Comments LEUKOCYTES (test code = Negative N LEUKOCYTES) NITRITE; Normal (test code = Negative N 64219-9) UROBILINOGEN; Normal (test code 0.2 N = 16058-0) PROTEIN (test code = 52945-6) 30 pH (test code = pH) 7.0 N URINE BLOOD (test code = Trace-Intact 75835-2) SPECIFIC GRAVITY; Normal (test 1.020 N code = 2965-2) KETONES; Normal (test code = Negative N 80134-7) BILIRUBIN; Normal (test code = Neative N 78203-8) GLUCOSE; Normal (test code = Negative N 1547-9) [facility]"
[2023-05-23] MEDS ORDERED: NA CHLORIDE 0.9% 1,000 ML IV ONE (14:43)
[2023-05-23] MEDS ORDERED: ACETAMINOPHEN 325 MG TABLET PO PRN (16:02)
[2023-05-23] MEDS ORDERED: HYDROCODONE/APAP 5/325 MG TAB PO PRN (16:02)
[2023-05-23] MEDS ORDERED: ONDANSETRON 4 MG/2 ML VIAL IV PRN (16:09)
--- NOTE | 2023-05-23 16:17 | P.HP ---
Certification for Inpatient Patient admitted to: Inpatient With expected LOS: >2 Midnights Patient will require the following post-hospital care: None Practitioner: I am a practitioner with admitting privileges, knowledge of patient current condition, hospital course, and medical plan of care. Services: Services provided to patient in accordance with Admission requirements found in Title 42 Section 412.3 of the Code of Federal Regulations Patient History Date of Service: 05/23/23 Reason for admission: Abdominal pain, nausea and vomiting History of Present Illness: Patient is a 32-year-old female with a past medical history significant for epilepsy with implanted nerve stimulator, hereditary CKD, bipolar disorder, schizophrenia, depression, anxiety disorder who presents with complaint of abdominal pain, nausea and vomiting. Patient reported that she has been having intractable nausea and vomiting for the past 1 week. Patient reported that 2 days ago she started having generalized abdominal pain that radiates to her left flank. Patient rated pain as 8/10 in severity and described pain as tight\sharp in quality. Patient reported associated signs and symptoms of headache and shortness of breath. Patient denies any other signs and symptoms. Symptoms are aggravated or relieved by nothing. Patient reported that she has not been able to keep any p.o. intake down. Patient followed up with her black oxide operator yesterday, had blood work and patient was seen by her black oxide operator today and was instructed to go to the ER due to BRYAN for further management. Allergies No Known Drug Allergies Allergy (Verified 05/23/23 14:15) Unknown Home Medications: Cholecalciferol (Vitamin D3) [Vitamin D3] 50 mcg PO DAILY 09/06/21 Lamotrigine [Lamictal] 100 mg PO BID 09/06/21 Pyridoxine [Vitamin B-6*] 50 mg PO BID 09/06/21 Amoxicillin/Potassium Clav [Augmentin 500-125 Tablet] 0.5 each PO BID #7 tablet 09/07/21 - Past Medical/Surgical History Has patient received pneumonia vaccine in the past: No Diabetic: No -: Epilepsy with inplanted nerve stimulator -: Brain Tumor diagnosed at age 3 -: Chronic hereditary Kidney Disease Stage 4 with prior right nephrectomy -: Nerve stimulator implant -: 2 kidney surgeries Psychosocial/ Personal History: Unemployed, lives with boyfriend - Family History Father -: Other (see notes) Mother -: Kidney disease - Social History Smoking Status: Former smoker Alcohol use: No CD- Drugs: No Caffeine use: No Place of Residence: Home Review of Systems General: Unremarkable Eyes: Unremarkable ENT: Unremarkable Respiratory: Shortness of Breath Cardiovascular: Unremarkable Gastrointestinal: Nausea, Vomiting, Abdominal Pain Genitourinary: Other (Left flank pain), Unremarkable Musculoskeletal: Unremarkable Integumentary: Unremarkable Neurological: Other (Headache) Lymphatics: Unremarkable Physical Examination - Physical Exam General: Alert, In no apparent distress, Oriented x3, Cooperative HEENT: Atraumatic, PERRLA, Mucous membr. moist/pink, EOMI, Sclerae nonicteric Neck: Supple, 2+ carotid pulse no bruit, No LAD, Without JVD or thyroid abnormality Respiratory: Clear to auscultation bilaterally, Normal air movement Cardiovascular: No edema, Regular rate/rhythm, Normal S1 S2 Capillary refill: <2 Seconds Gastrointestinal: Normal bowel sounds, Tenderness Musculoskeletal: No clubbing, No swelling, No contractures, No tenderness Integumentary: No rashes, No significant lesion Neurological: Normal gait, Normal speech, Normal strength at 5/5 x4 extr, Normal tone, Normal affect Lymphatics: No axilla or inguinal lymphadenopathy Assessment and Plan - Plan --BRYAN. Likely prerenal. Secondary to fluid losses. Nephrology consulted. Continue IV hydration. Renal ultrasound pending. Further management per black oxide operator. --Abdominal pain. CT abdomen pending for further evaluation. We will manage pain with current pain medication regimen. --Nausea and vomiting. Antiemetics on board. Continue IV hydration --Depression\anxiety disorder\bipolar disorder\schizophrenia. Continue home medications. --History of seizures. With implanted nerve stimulator. Continue home medication. Seizure precautions. --History of solitary kidney. S/P right nephrectomy. Further management per black oxide operator --Acute pain. We will manage pain on current pain medication regimen. --Headache. Tylenol as needed. -- DVT prophylaxis with Lovenox subQ. Discharge Plan: Home Plan to discharge in: Greater than 2 days - Advance Directives Does patient have a Living Will: No Does patient have a Durable POA for Healthcare: No - Code Status/Comfort Care Code Status Assessed: Yes Physician Review: Patient Assessed, Agree with Above Assessment and Plan Critical Care: No
[2023-05-23 16:29] LABS: Specific Gravity 1.014 (1.005-1.030); Urine Bacteria <20 /HPF (<20); Urine Bilirubin NEGATIVE (Negative); Urine Blood Negative (Negative); Urine Clarity Turbid (Clear); Urine Color Colorless (Yellow); Urine Crystals Unidentified Few /HPF (None Seen); Urine Glucose NEGATIVE (Negative); Urine Protein 1+ (Negative); Urine RBC <5 /HPF (None Seen); Urine Urobilinogen Normal (Normal); Urine WBC Clump Rare /HPF (None Seen)
[2023-05-23] MEDS: METOCLOPRAMIDE 10 MG/2mL INJ IV SCH ×2 (16:48→20:28)
[2023-05-23] MEDS: NACHLORIDE 0.45% 1,000 ML with NA BICARB 8.4% 75 MEQ IV SCH ×2 (16:49)
[2023-05-23] MEDS ORDERED: ENOXAPARIN 40 MG/0.4 ML SQ SCH (17:00)
[2023-05-23] MEDS: ENOXAPARIN 30 MG/0.3 ML SQ SCH (17:00)
--- NOTE | 2023-05-23 17:03 | RAD REPORT ---
EXAM DESCRIPTION: RADChest Single View05/23/2023 4:17 pm CLINICAL HISTORY: COPD COMPARISON: Chest Single View dated 05/15/2020; Chest Single View dated 12/25/2017; Chest Single View d ated 09/13/2017; CHEST SINGLE VIEW dated 09/03/2014 TECHNIQUE: Portable AP view of the chest. FINDINGS: The lungs are clear. No pneumothorax or effusion. The cardiomediastinal contours are unre markable. Nerve stimulator battery pack along the left chest wall, stable. IMPRESSION: No acute cardiopulmonary process.
[2023-05-23 17:17] LABS: Magnesium 2.1 mg/dL (1.6-2.4); Phosphorus 3.5 mg/dL (2.5-4.9)
--- NOTE | 2023-05-23 17:48 | RAD REPORT ---
EXAM DESCRIPTION: CT - Abdomen Wo Contrast - 05/23/2023 5:01 pm CLINICAL HISTORY: Abdominal pain, N V COMPARISON: No comparisons TECHNIQUE: Thin cut axial CT imaging of the abdomen was performed without IV contrast. Multiplanar r eformats were generated and reviewed. All CT scans are performed using dose optimization technique as appropriate and may include automated exposure control or mA/KV adjustment according to patient size. FINDINGS: No suspicious findings in the lung bases. The adrenal glands, spleen, and pancreas show no suspicious findings. Subcentimeter foci of hypoatten uation in the right and left liver lobe are difficult to characterize, and probably stable, suggestiv e of small cysts. Gallbladder and biliary tree are also without suspicious finding. Status post left nephrectomy. Enlarging numerous left renal masses compared to the prior CT, with enl arging macroscopic fat density components, and further encroachment upon the normal renal parenchyma. Essentially stable foci of coarse calcifications in the left kidney. No dilated bowel loops or bowel wall thickening. No free air, free fluid or inflammatory stranding. S mall fat containing umbilical hernia, stable. No mass or bulky lymphadenopathy. No suspicious bony findings. IMPRESSION: Enlarging numerous left renal masses, with macroscopic fat density components, most comp atible with angiomyolipomatosis, in the setting of known tuberous sclerosis. No other acute findings in the abdomen.
[2023-05-23 18:27] LABS: Specific Gravity 1.012 (1.005-1.030)
[2023-05-23 18:28] LABS: Specific Gravity 1.012 (1.005-1.030); Urine Bacteria <20 /HPF (<20); Urine Bilirubin NEGATIVE (Negative); Urine Blood Negative (Negative); Urine Clarity Turbid (Clear); Urine Color Colorless (Yellow); Urine Glucose NEGATIVE (Negative); Urine Protein TRACE (Negative); Urine RBC <5 /HPF (None Seen); Urine Urobilinogen Normal (Normal)
[2023-05-23 18:30] LABS: UR PROTEIN 44.9 mg/dL (<11.9); Urine Protein/Creatinine Ratio 0.64 ratio (<0.15)
[2023-05-23] MEDS: PYRIDOXINE (VIT B6) 50 MG TAB PO SCH (20:28)
[2023-05-23] MEDS: lamoTRIgine 100 MG TAB PO SCH (20:28)
--- NOTE | 2023-05-23 20:44 | RAD REPORT ---
EXAM DESCRIPTION: US - Renal Ultrasound-Complete - 05/23/2023 5:24 pm CLINICAL HISTORY: BRYAN COMPARISON: Abdomen Pelvis Wo Contrast dated 05/15/2023; Abdomen Wo Contrast dated 05/23/2023 TECHNIQUE: Sonographic grayscale and color flow images of the kidneys and bladder were obtained. FINDINGS: Right kidney was surgically removed. Heterogeneous signal throughout the left kidney given known underlying multifocal masses. The left ki dney is measured at 11.8 centimeter in length, allowing for limited evaluation given the heterogeneit y of signal. No hydronephrosis or echogenic shadowing calculi. The urinary bladder is without gross abnormality. IMPRESSION: Multifocal left renal masses, better evaluated on CT of the same day. No evidence of hyd ronephrosis or echogenic shadowing calculi. Status post right nephrectomy.
[2023-05-23 21:18] LABS: Blood Gas Oxyhemoglobin 95.6 % (94-97); Blood O2 Saturation 98.1 % (92-98.5)
[2023-05-24] MEDS: NACHLORIDE 0.45% 1,000 ML with NA BICARB 8.4% 75 MEQ IV SCH ×2 (05:22)
[2023-05-24 05:27] LABS: Absolute Lymphocytes (CBC) 2.2 K/uL (0.7-4.9); Hematocrit 30.4 % (36.0-45.0); Lymphocytes % 27.2 % (15.3-44.8); MCV 90.9 fL (80-100); MPV 7.7 fL (7.6-11.3); RBC Red Blood Cell Count 3.34 M/uL (3.86-4.86)
[2023-05-24 05:47] LABS: Phosphorus 3.7 mg/dL (2.5-4.9); Thyroid Stimulating Hormone 2.24 uIU/mL (0.358-3.740); Uric Acid 8.2 mg/dL (2.6-6.0)
[2023-05-24] MEDS: lamoTRIgine 100 MG TAB PO SCH ×2 (08:23→21:26)
[2023-05-24] MEDS: METOCLOPRAMIDE 10 MG/2mL INJ IV SCH ×4 (08:23→21:26)
[2023-05-24] MEDS: VITAMIN D 1000 UNIT TAB PO SCH (08:23)
[2023-05-24] MEDS: PYRIDOXINE (VIT B6) 50 MG TAB PO SCH ×2 (08:23→21:26)
[2023-05-24] MEDS: PANTOPRAZOLE 40MG TABLET PO SCH (08:23)
[2023-05-24] MEDS ORDERED: HOME MED 1 EA UNK (Cholecalciferol (Vitamin D3) [Vitamin D3] 50 MCG Capsule) PO SCH (09:00)
--- NOTE | 2023-05-24 13:08 | CON ---
Date of Consultation: 05/24/2023 Reason For Consultation: Elevated BUN and creatinine. History Of Present Illness: This is a 32-year-old female, well known to me from the office with sign ificant past medical history of chronic kidney disease stage 3B/4 secondary to renal mass loss second janel to right nephrectomy back in January 2021, neurofibromatosis, seizure secondary to intracranial analilia or, bronchial asthma, tubular sclerosis, the patient was in her regular state of health, came to the office yesterday with worsening kidney function. Creatinine was up to 3 and GFR of 20 with acidosis, bicarb down to 17 with nausea and vomiting. For that reason, we sent the patient to the hospital. Over the night, we started the patient on bicarb and IV hydration. Kidney function started improving . The patient feeling better. Nausea and vomiting have been subsided. Past Medical History: Includes; 1.Tubular sclerosis. 2.Chronic kidney disease stage 3B/4, baseline creatinine 2.1, GFR of 30, secondary to renal mass los s with right nephrectomy. 3.Neurofibromatosis. 4.Seizure. 5.Hypertension. Allergies: NO KNOWN DRUGS ALLERGY. Home Medications: Include cholecalciferol, lamotrigine, pyridoxine, Augmentin. Past Surgical History: Includes; 1.Brain tumor removal. 2.Right nephrectomy. Family History: Positive for hypertension and chronic kidney disease. Social History: Ex-smoker. Denied alcohol. Denied drugs abuse. Review of Systems: Head and Neck: No red eye. No ear pain. GI: Has nausea, vomiting. : No polyuria. No dysuria. No hematuria. Lead Section Supervisor: No vaginal discharge. Respiratory: No shortness of breath. Cardiovascular: No chest pain. Endocrine: No polydipsia. Skin: No rash. Neuro: Has seizure. Physical Examination: Chest: Clear to auscultation. Heart: S1, S2. Regular. Abdomen: Soft, nontender. Extremities: No edema. Neuro: Alert. No focality. Laboratory Data: WBC 7.9, H and H 10/32.4, platelet 375. Sodium 140, potassium 40, bicarb 18, BUN 3 5, creatinine 2.5, GFR of 25, uric acid 8.2, calcium 8.1, phosphorus 3.7, TSH 2.2, albumin 3, PTH is 312. Urinalysis negative for infection, PC ratio 0.6. 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 No hydronephrosis. Current Medications: The patient on include Lovenox, Tylenol, lamotrigine, bicarb drip, metocloprami de, pantoprazole. Assessment And Plan: 1.Acute kidney injury secondary to poor perfusion, ATN secondary to dehydration secondary to gastroe nteritis on advanced chronic kidney disease, on the recovery phase. I am going to go ahead and decre ase IV fluid. Plan to discontinue if kidney function continued to improve and we will follow up the patient. 2.Acidosis, non-anion gap metabolic acidosis. We will start the patient on oral bicarb. Continue c urrent bicarb with decreased rate. 3.Secondary hyperparathyroidism. We will start the patient on calcitriol. 4.Hypertension, controlled, optimal. 5.Gastroenteritis. Continue symptomatic treatment. 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 We will follow up with primary. 7.Seizure as by primary. Thank you, Dr. Allred for allowing us to participate in the care of your patient. Time spent examining the patient [id number], reviewing data, lab and radiology, placing orders, dis cussing the case with the patient, discussing the case with the inspector outside steam distribution including nursing staff a mt hospitalist more than 75 minutes. MALIK Voice ID: [id number] Report ID: [id number]
[2023-05-24] MEDS: SODIUM BICARB 325 MG TAB PO SCH ×2 (13:31→21:26)
[2023-05-24] MEDS: CALCITROL 0.25 MCG CAP PO SCH (13:31)
[2023-05-24] MEDS ORDERED: NACHLORIDE 0.45% 1,000 ML with NA BICARB 8.4% 75 MEQ IV SCH ×4 (16:31→18:00)
[2023-05-24] MEDS: ENOXAPARIN 30 MG/0.3 ML SQ SCH (16:34)
--- NOTE | 2023-05-24 18:19 | P.PN ---
Subjective Date of Service: 05/24/23 Chief Complaint: Abdominal pain, nausea and vomiting Patient has no new complaint. She states her nausea and vomiting and diarrhea have stopped. She denies diarrhea. Serum creatinine improved from yesterday. Physical Examination - Vital Signs Temperature: 98.1 F Blood Pressure: 123/62 Pulse: 84 Respirations: 18 Pulse Ox (%): 99 - Studies Laboratory Data (last 24 hrs) 05/24/23 05:01: WBC 7.90, Hgb 10.0 L, Hct 30.4 L, Plt Count 375 05/24/23 05:01: Sodium 140, Potassium 4.0, BUN 35 H, Creatinine 2.53 H, Glucose 94, Uric Acid 8.2 H, Phosphorus 3.7 Assessment And Plan - Current Problems (Diagnosis) (1) Acute renal failure superimposed on stage 4 chronic kidney disease Current Visit: Yes Status: Acute (2) Acute gastroenteritis Current Visit: Yes Status: Acute (3) Metabolic acidosis Current Visit: Yes Status: Acute (4) Epilepsy Current Visit: Yes Status: Acute - Plan Serum creatinine improving with IV hydration. Gastroenteritis resolved. Nephrology is following. Continue IV fluid and monitor renal function. Diet as tolerated. Patient is on bicarb drip and oral bicarb replacement per nephrology. Continue other home medications for epilepsy.
[2023-05-25 02:20] LABS: Phosphorus 3.5 mg/dL (2.5-4.9); Potassium 3.8 mEq/L (3.5-5.1)
[2023-05-25] MEDS: PANTOPRAZOLE 40MG TABLET PO SCH (08:16)
[2023-05-25] MEDS: lamoTRIgine 100 MG TAB PO SCH ×2 (08:17→21:11)
[2023-05-25] MEDS: VITAMIN D 1000 UNIT TAB PO SCH (08:17)
[2023-05-25] MEDS: PYRIDOXINE (VIT B6) 50 MG TAB PO SCH ×2 (08:17→21:11)
[2023-05-25] MEDS: SODIUM BICARB 325 MG TAB PO SCH ×3 (08:17→21:10)
[2023-05-25] MEDS: METOCLOPRAMIDE 10 MG/2mL INJ IV SCH ×4 (08:18→21:11)
[2023-05-25] MEDS ORDERED: POTASSIUM CL SA 10 MEQ TAB PO ONE (09:00)
--- NOTE | 2023-05-25 17:11 | P.PN ---
Subjective Date of Service: 05/25/23 Chief Complaint: Abdominal pain, nausea and vomiting Patient has no new complaint. She has been tolerated diet. No diarrhea Serum creatinine got worse compared to yesterday. Physical Examination - Vital Signs Temperature: 98.8 F Blood Pressure: 114/53 Pulse: 71 Respirations: 14 Pulse Ox (%): 97 - Studies Laboratory Data (last 24 hrs) 05/25/23 01:51: Sodium 140, Potassium 3.8, BUN 40 H, Creatinine 2.88 H, Glucose 92, Phosphorus 3.5 Assessment And Plan - Current Problems (Diagnosis) (1) Acute renal failure superimposed on stage 4 chronic kidney disease Current Visit: Yes Status: Acute (2) Acute gastroenteritis Current Visit: Yes Status: Acute (3) Metabolic acidosis Current Visit: Yes Status: Acute (4) Epilepsy Current Visit: Yes Status: Acute - Plan Serum creatinine is worse from yesterday Gastroenteritis resolved. Nephrology is following and managed. Continue IV fluid and monitor renal function. Diet as tolerated. Patient is on bicarb drip and oral bicarb replacement per nephrology. Continue other home medications for epilepsy.
[2023-05-25] MEDS: ENOXAPARIN 30 MG/0.3 ML SQ SCH (17:22)
--- NOTE | 2023-05-25 19:07 | PN ---
Date of Progress Note: 05/25/2023 Subjective: Patient was admitted with acute kidney injury secondary to prerenal, secondary to gastro enteritis; chronic kidney disease, solitary kidney. Patient was started on IV hydration. Kidney fun ction started being improving. Yesterday, has bounced back. On the lab of today, the patient is com pletely asymptomatic, tolerating diet. Physical Examination: Vital Signs: Blood pressure 112/65, pulse of 75, afebrile. Chest: Clear to auscultation. Heart: S1, S2 regular. Abdomen: Soft, nontender. Extremities: No edema. Neuro: No focality. Laboratory Data: Hemoglobin 10. Sodium 140, potassium 3.8, bicarb 20, BUN 43, creatinine 2.8, calci um 8.2. Phosphorus 3.5. Albumin 3. Corrected calcium of 10. Current Medications: The patient on include: 1.Lovenox. 2.Tylenol. 3.Lamotrigine. 4.Sodium bicarb tablets 650 daily t.i.d. 5.Bicarb drip. 6.Zofran. 7.Metoclopramide. 8.Pantoprazole. 9.KCl. 10.Calcitriol. Assessment And Plan: 1.Acute kidney injury secondary to prerenal. On the recovery, I am going to discontinue IV fluid. 2.Acidosis, non-anion gap metabolic acidosis secondary to renal failure. Discontinue bicarb drip. Continue oral. 3.Secondary hyperparathyroidism. Started on calcitriol. We will follow up. 4.Chronic kidney disease, solitary kidney with multiple secondary to tubular sclerosis. We will continue to monitor. 5. on the solitary kidney. Continue to monitor as outpatient. 6.Gastroenteritis. Continue symptomatic treatment. SANTOS/JUDIT Voice ID: [id number] Report ID: [id number]
[2023-05-26 04:31] VITALS: O2SAT 99
[2023-05-26 05:03] LABS: Albumin 3.1 g/dL (3.4-5.0)
[2023-05-26] MEDS: PANTOPRAZOLE 40MG TABLET PO SCH (09:21)
[2023-05-26] MEDS: VITAMIN D 1000 UNIT TAB PO SCH (09:21)
[2023-05-26] MEDS: SODIUM BICARB 325 MG TAB PO SCH (09:21)
[2023-05-26] MEDS: METOCLOPRAMIDE 10 MG/2mL INJ IV SCH ×2 (09:22→12:49)
[2023-05-26] MEDS: PYRIDOXINE (VIT B6) 50 MG TAB PO SCH (09:22)
[2023-05-26] MEDS: lamoTRIgine 100 MG TAB PO SCH (09:22)
[2023-05-26 10:29] VITALS: BP 127/66; TEMP 98.6
--- NOTE | 2023-05-26 12:42 | P.DS ---
Admission Date: 05/23/23 Discharge Date: 05/26/23 Disposition: ROUTINE DISCHARGE Discharge Condition: FAIR Reason for Admission: Abdominal pain, nausea and vomiting - Problems (1) Acute renal failure superimposed on stage 4 chronic kidney disease Current Visit: Yes Status: Acute (2) Acute gastroenteritis Current Visit: Yes Status: Acute (3) Metabolic acidosis Current Visit: Yes Status: Acute (4) Epilepsy Current Visit: Yes Status: Acute Brief History of Present Illness: Patient is a 32-year-old female with a past medical history significant for epilepsy with implanted nerve stimulator, hereditary CKD, bipolar disorder, schizophrenia, depression, anxiety disorder who presented with complaint of abdominal pain, nausea and vomiting. Patient reported that she was having intractable nausea and vomiting for 1 week. Patient reported generalized abdominal pain that radiates to her left flank. Patient rated pain as 8/10 in severity and described pain as tight\sharp in quality. Patient reported associated signs and symptoms of headache and shortness of breath. Patient reported that she has not been able to keep any p.o. intake down. Patient followed up with her assembler surgical garment yesterday, had blood work and patient was seen by her assembler surgical garment today and was instructed to go to the ER due to BRYAN for further management. Hospital Course: Patient was admitted to the medical floor and hydrated with IV fluid and given IV bicarb. Metabolic acidosis improved. Patient serum creatinine also improved with IV hydration. Her abdominal symptoms resolved. Nausea and vomiting and diarrhea also resolved. Serum creatinine is stable around 2.88. At this point nephrology Dr. Enciso deems patient stable for discharge with oral bicarb replacement. Patient will follow-up with Dr. Enciso within 2 weeks Vital Signs/Physical Exam: Temp Pulse Resp BP Pulse Ox 98.6 F 90 16 127/66 98 05/26/23 08:00 05/26/23 08:00 05/26/23 08:00 05/26/23 08:00 05/26/23 08:00 General: Alert, In no apparent distress, Oriented x3 HEENT: Mucous membr. moist/pink Neck: JVD not distended Respiratory: Clear to auscultation bilaterally, Normal air movement Cardiovascular: No edema, Regular rate/rhythm, Normal S1 S2 Gastrointestinal: Normal bowel sounds, Soft and benign, Non-distended, No tenderness Musculoskeletal: No swelling Integumentary: No rashes, No cyanosis Neurological: Normal strength at 5/5 x4 extr Laboratory Data at Discharge: WBC 7.90 thou/uL (4.3-10.9) 05/24/23 05:01 Hgb 10.0 g/dL (12.0-15.0) L 05/24/23 05:01 Hct 30.4 % (36.0-45.0) L 05/24/23 05:01 Plt Count 375 thou/uL (152-406) 05/24/23 05:01 Sodium 142 mEq/L (136-145) 05/26/23 03:40 Potassium 4.0 mEq/L (3.5-5.1) 05/26/23 03:40 BUN 38 mg/dL (7-18) H 05/26/23 03:40 Creatinine 2.88 mg/dL (0.55-1.02) H 05/26/23 03:40 Glucose 96 mg/dL (74-106) 05/26/23 03:40 Uric Acid 8.2 mg/dL (2.6-6.0) H 05/24/23 05:01 Phosphorus 3.0 mg/dL (2.5-4.9) 05/26/23 03:40 Magnesium 2.1 mg/dL (1.6-2.4) 05/23/23 16:41 Home Medications: Cholecalciferol (Vitamin D3) [Vitamin D3] 50 mcg PO DAILY 09/06/21 Lamotrigine [Lamictal] 100 mg PO BID 09/06/21 Pyridoxine [Vitamin B-6*] 50 mg PO BID 09/06/21 Amoxicillin/Potassium Clav [Augmentin 500-125 Tablet] 0.5 each PO BID #7 tablet 09/07/21 Calcitrol [Rocaltrol*] 0.25 mcg PO Q48H #15 cap 05/26/23 Sodium Bicarbonate 650 mg PO TID #90 tab 05/26/23 New Medications: Calcitrol [Rocaltrol*] 0.25 mcg PO Q48H #15 cap Sodium Bicarbonate 650 mg PO TID #90 tab Diet: Renal Activity: Ad padma Followup: Christine Enciso MD [ACTIVE - CAN ADMIT] - (Within 2 weeks) Time spent managing pt's care (in minutes): 35
[2023-05-26] MEDS: CALCITROL 0.25 MCG CAP PO SCH (12:49)
[2023-05-26 14:32] VITALS: BMI 32.3
== END 2023-05-26 14:48 | disposition home or self-care (01) | DRG 683 ==
LOC: 4TH 13:43 → OBSVTOIN 16:02
PROVIDERS: ADMIT Internal Medicine; ATTEND Internal Medicine
DX: N17.0 Acute kidney failure with tubular necrosis (principal); E87.20 Acidosis, unspecified; I12.9 Hypertensive chronic kidney disease with stage 1 through stage 4 chronic kidney disease, or unspecified chronic kidney disease; N18.4 Chronic kidney disease, stage 4 (severe); F31.9 Bipolar disorder, unspecified; E86.0 Dehydration; F41.9 Anxiety disorder, unspecified; K52.9 Noninfective gastroenteritis and colitis, unspecified; N25.81 Secondary hyperparathyroidism of renal origin; F20.9 Schizophrenia, unspecified; G40.909 Epilepsy, unspecified, not intractable, without status epilepticus; Z90.5 Acquired absence of kidney; Z56.0 Unemployment, unspecified; Z96.82 Presence of neurostimulator; Z87.891 Personal history of nicotine dependence; Z79.899 Other long term (current) drug therapy
CPT/HCPCS: 36415; 71045; 74150; 76770; 80069; 81001; 81025; 82550; 82570; 82805; 83735; 83970; 84100; 84156; 84439; 84443; 84484; 84550; 85025; G0378; J1650; J2765; J7030

== ENCOUNTER 2024-06-24 02:16 | Emergency (ER) | payer OTHER ==
[2024-06-24] MEDS ORDERED: MORPHINE 4 MG/ML SYR ONE ×2 (02:26→04:52)
[2024-06-24] MEDS ORDERED: ONDANSETRON 4 MG/2 ML VIAL ONE (02:27)
--- OUTSIDE RECORDS SUMMARY | 2024-06-24 02:30 | XMS REPORT | Continuity of Care Document ---
Author Name Unknown Address [address] [facility] [place] [address] [facility] [address] [facility] [place] [address] Care Team Providers Care Commis Chef Name Role Phone DIANAKACY ISBELLSHERLY A Primary Care Physician Unava ilShantelle Lane Attending Clinician Unavailable JOSHUA LOPEZ Attending Clinician Unavailable JOSHUA LOPEZ Attending Clinician Unavailable PRINCESS MOORE Attending Clinician Unavailable JULITA SAUNDERS Attending Clinician Unavailable JULITA SAUNDERS Attending Clinician Unavailable Laura HUERTA, Apolinar Attending Clinician [phone] Darien Cornejo MD Attending Clinician + [phone] Rachel DOUGHERTY Julita Attending Clinician [phone] Raad Rothman MD Attending Clinician [phone] ALBERTA HURST Attending Clinician Unavail able Visit, [facility] Nurse Attending Clinician Unava ilable Akinsipe WHCNP, Alberta C Attending Clinician + ANGELO WARE Attending Clinician Unavailable ANGELO WARE Attending Clinician Unavailable STEFAN DE SOUZA Attending Clinician Unavailable STEFAN DE SOUZA Attending Clinician Unavailable Stefan De Souza NP Attending Clinician [phone] Alma Nguyen MD Attending Clinician [phone] ALMA NGUYEN Attending Clinician UnavailTari Rodney MD Attending Clinician +[phone] Jamila Wheeler MD Attending Clinician +[phone] Akinsijorden [facility], Alberta Chaparro Attending Clinician + LISA KNAPP Attending Clinician Unavailable Nurse, [facility] Attending Clinician Un available Unknown, Attending Attending Clinician Unavailab Lisa Collins MD Attending Clinician [phone] JAMILA WHEELER Attending Clinician Unava ilmartell Labs, [facility] Attending Clinician Unavail able Transplant, Kidney Surgery Attending Clinician U navailmartell Manager Interventional, Transplant Attending Clinician Jessicavamikie sotomayorle Worker, Transplant Social Attending Clinician Un available Renal, Transplant Class Attending Clinician Unav donavon Alatorre CNM, Junie Harvey Attending Clinician [phone] PATRICK TILLMAN K.HGayle Attending Clinician Unavailcandice Perry MD, Kati Attending Clinician + [phone] KATI PERRY Attending Clinician Unavailable Doctor Unassigned, Animas Attending Clinician U THIERNO Mckenna Attending Clinician Unavailable Thierno Sherman MD Attending Clinician [phone] Obed Narayan MD Attending Clinician [phone] SYLVAIN, OBED Attending Clinician Unavailable Visit, [facility] Nurse Attending Clinician Unava ilable IMAN JONES Attending Clinician Unavailable KADE LIU Attending Clinician Unavailable KADE LIU Attending Clinician Unavailable Kade Liu DO Attending Clinician +[phone] Iman Jones MD Attending Clinician [phone] JUNIE ALATORRE Attending Clinician Unavaila ble Therapist, [facility] Respiratory Attending Clinician U navailable Tech, [facility] Sleep Lab Attending Clinician Unavaila Brandy Ramirez MD Attending Clinician [phone] BRANDY WHITESIDE Attending Clinician Unavaila BRANDY Ramirez Attending Clinician Unavaila TRINY Camarena Attending Clinician Unavailable TRINY VALERA Attending Clinician Unavailable LISA TILLMAN Attending Clinician Unav ailable LISA TILLMAN Attending Clinician Unav ailable GC_GCBZW_Kadiyala_S Attending Clinician Unavaila vince Nurse, [facility] Exp Cprit Obgyn Attending Clini terra Unavailable Junior HUERTA, Sendil K.H. Attending Clinician + [phone] Pob, [facility] Main Attending Clinician UnavailTari Roche MD Attending Clinician +[phone] TARI TRIVEDI Attending Clinician UnavailAVE Loredo Attending Clinician Unavailable Ave Mari Attending Clinician +[phone] VANDANA FENTON Attending Clinician Unavailab PRECIOUS Montano Attending Clinician UnavailPrecious Evans MD Attending Clinician +[phone] Vandana Ardon Attending Clinician + [phone] DELILAH JOYA Attending Clinician Unavailable SABRINA WOOTEN RP Attending Clinician Unavailable Sabrina Wooten MD, Rp Attending Clinician [phone] PREET ORTIZ Attending Clinician Unavailcandice wu [facility] Attending Clinician Unavailable [place] OSMAN, Pritesh Haines Attending Clinician [phone] Preet Ortiz MD Attending Clinician + [phone] LA BRANCH Attending Clinician Unavailable Brad Barnes MD Attending Clinician [phone] Connie Barbosa Attending Clinician UnaJimmy Gomez MD Attending Clinician +[phone] Barbara OSMAN, Tania Attending Clinician +[phone] PRITESH GREENFIELD Attending Clinician UnavailJoshua Orta MD Attending Clinician [phone] JIMMY MADRID Attending Clinician Unavailabl e Only, [facility] Test Attending Clinician Unavailable Akhil Dumas MD Attending Clinician + [phone] AKHIL DUMAS Attending Clinician Unavailable Josseline Capone MD Attending Clinician + [phone] JOSSELINE CAPONE Attending Clinician Unavailable FABIOLA IZAGUIRRE Attending Clinician Unavailable ASHLEY HODGES Attending Clinician Unavailable KASH DU Attending Clinician Unavailable PAOLA SAEZ Attending Clinician Unavailable ABUNDIO OLIVA Attending Clinician Unavail able Call, [facility] Phone Attending Clinician Unavail able GIL CORTEZ Attending Clinician Unavail able GIL CORTEZ Attending Clinician Unavail able RENATO SANTIAGO Attending Clinician Unavailab SHAKIR Barrios Attending Clinician Unavailable Shea Medina DO Attending Clinician + [phone] SHEA MEDINA Attending Clinician Unavailable Renato Santiago MD Attending Clinician + [phone] Mariana Cooley Attending Clinician +[phone] UNKNOWN, ATTENDING Attending Clinician Unavailab DAVID Marrero III Attending Clinician Unavailabl ALLIE Monteiro Attending Clinician Unavailab Fabiola Villareal Attending Clinician [phone] JAMEY HIGGINBOTHAM Attending Clinician Unavail able Jamey Higginbotham DO Attending Clinician [phone] Nurse, [facility] Women's Health Attending Clinician Un available YOVANNY CHOI Attending Clinician Unavailable KATARINA WIGGINS Attending Clinician Unavailabl ROSANA Hawkins Attending Clinician Unavailable Brian Edwards NP Attending Clinician [phone] BRIAN EDWARDS Attending Clinician Unavailable HI GREENFIELD Attending Clinician Unavaila RAJ Pulliam Attending Clinician Unavailable YANIQUE ROLON Attending Clinician Unavailable MARCELO POWELL III Attending Clinician Unavaila ALFREDO Freeman M.D. Attending Clinician ALONZO Flores M.D. Attending Clinician LAYA Persaud M.D. Attending Clinician Unavail able JOSHUA LOPEZ Admitting Clinician Unavailable DARIEN CORNEJO Admitting Clinician Unavailable Darien Cornejo MD Admitting Clinician THIERNO SHERMAN Admitting Clinician Unavailable KADE LIU Admitting Clinician Unavailable GC_GCBZW_Kadiyala_S Admitting Clinician Unavaila ANGELO Carrasco Admitting Clinician Unavailable PATRICK TILLMAN Admitting Clinician Unavaila PRECIOUS Pandya Admitting Clinician UnavailSABRINA Angeles RP Admitting Clinician Unavailable Joshua Lopez MD Admitting Clinician YANIQUE ROLON Admitting Clinician Unavailable MARCELO POWELL III Admitting Clinician Unavaila HI Bolton Admitting Clinician Unavaila vince Payers Payer Name Policy Type Policy Number Effective Date Expirati on Date Source [employer] [id number] 2015 00:00:00 [place] [id number] 2018 00:00:00 [place] [address] [id number] 2018 00:00:00 [place] [address] [id number] 2018 00:00:00 [place] [address] [id number] 2018 00:00:00 [place] [address] [id number] 2018 00:00:00 [place] [address] [id number] 2018 00:00:00 [place] [address] [id number] 2018 00:00:00 [place] [address] [id number] 2018 00:00:[address] [facility] C1 [id number] 2018 00:00:00 [facility] Problems Condition Name Condition Details Condition Category Status Onset Date Resolution Date Last Treatment Date Treating Clinician Comments Source Active internal bleeding Active internal bleeding Disease Active 06-21 00:00: 00 Overview: Formattin g of this note might be different from the original. 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 4Redemons tration of very large left angiomyol ipoma versus multiplea ngiomyoli pomas in the left kidney, essential ly replacing the left renalpare nchyma, measuring 12.8 x 12.8 x 21 cm. Left perinephr ic hematoma is not significa ntly changed compared to previouse xam of 06/17/2024. There are multiple dystrophi c arterial branches supplying the angiomyol ipoma, but no definite active extravasa tion into theperine phric hematoma. The density of the hematoma does not telephone exchange operator thecourse of the exam. 4Right nephrecto my has been performed . Several large renal angiomyol ipomasare again identifie d which have replaced the left renal parenchym a. Thelarges t lesion arises from the lateral aspect of the left renal cortex onimage 60 of series 2 measuring 10.0 x 8.2 cm which has increased in sizefrom 8.9 x 7.4 cm. There has been interval developme nt of a moderate amountof blood products along the anterior left perinephr ic space compatibl e withhemor rhage of one of the renal angiomyol ipomas. No evidence for obstructi nguretera l calculus or hydroneph rosis is present. 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 [facility] Anemia in stage 4 chronic kidney disease Anemia in stage 4 chronic kidney disease Disease Active 8-06 00:00: 00 [facility] History of abnormal cervical Pap smear History of abnormal cervical Pap smear Disease Active 04-05 00:00: 00 Overview: Formattin g of this note might be different from the original. 0 LGSIL +HPV01 Colpo neg2021 LGSIL +HPV01/31 negative PAP and HPV2023 negative PAP and HPV, repeat 3 years [facility] Low grade squamous intraepith elial lesion (LGSIL) on cervical Pap smear Low grade squamous intraepith elial lesion (LGSIL) on cervical Pap smear Disease Active 1- 00:00: 00 Overview: Formattin g of this note might be different from the original. +hpv, pending colpo appt [facility] Encounter for surveillan ce of implantabl e subdermal contracept ric Encounter for surveillan ce of implantabl e subdermal contracept ric Disease Active 24 00:00: 00 [facility] Dysphagia, pharyngoes ophageal phase Dysphagia, pharyngoes ophageal phase Disease Active 9-17 00:00: 00 Overview: Formattin g of this note might be different from the original. Added automatic ally from request for surgery [id number] [facility] BRYAN (acute kidney injury) BRYAN (acute kidney injury) Disease Active 6-25 00:00: 00 [facility] BRYAN (acute kidney injury) BRYAN (acute kidney injury) Disease Active 6-25 00:00: 00 [facility] RLS (restless legs syndrome) RLS (restless legs syndrome) Disease Active 2-22 00:00: 00 [facility] Anxiety Anxiety Disease Active 2-22 00:00: 00 [facility] Vitamin D deficiency Vitamin D deficiency Disease Active 1-27 00:00: 00 [facility] Vitamin B6 deficiency Vitamin B6 deficiency Disease Active 12-09 00:00: 00 [facility] Papanicola ou smear of cervix with low grade squamous intraepith elial lesion (LGSIL) Papanicola ou smear of cervix with low grade squamous intraepith elial lesion (LGSIL) Disease Active 2019-11 0-26 00:00: 00 [facility] Cervical high risk human papillomav irus (HPV) DNA test positive Cervical high risk human papillomav irus (HPV) DNA test positive Disease Active 2019-11 0-19 00:00: 00 [facility] Iron deficiency Iron deficiency Disease Active 2019-11 0-16 00:00: 00 [facility] Chronic fatigue Chronic fatigue Disease Active 2019-11 0-16 00:00: 00 [facility] Depression , major, single episode, mild Depression , major, single episode, mild Disease Active 7-09 00:00: 00 Overview: Formattin g of this note might be different from the original. Last Assessmen t [...] urgent/em ergent care including calling Suicide Hotline (2-500-25 5-4819) or 911.Follo w up in one month with Psycholog ist, Counselor , Support group, Psycholog ist/Couns elor/Supp ortGroup/ Psychiatr ist and PCP [facility] Major depressive disorder, recurrent, in partial remission Major depressive disorder, recurrent, in partial remission Disease Recurre moe 05-21 00:00: 00 Overview: Formattin g of this note might be different from the original. Last Assessmen t & Plan: Formattin g of this note might be different from the original. Condition : stable No recent mental health visit. Advised to follow up Medicatio ns: Taking medicatio ns as prescribe d If taking medicatio ns, do not stop treatment without consultin g healthcar e provider. If symptoms worsen or do not improve/s tabilize, notify health care provider right away. If thoughts of harming self or others notify health care provider immediate ly &/or seek urgent/em ergent care including calling Suicide Hotline (704 or [phone]) or 911. Follow up in three months with Psycholog ist/Couns elor/Supp ortGroup/ Psychiatr ist and PCP [facility] Constipati on Constipati on Disease Active 04-22 00:00: 00 Overview: Formattin g of this note might be different from the original. Last Assessmen t & Plan: Condition : stableFol low up in: three months [facility] Environmen windy and seasonal allergies Environmen windy and seasonal allergies Disease Active 04-22 00:00: 00 Overview: Formattin g of this note might be different from the original. Last Assessmen t & Plan: Condition : stableFol low up in: three months [facility] Primary insomnia Primary insomnia Disease Active 04-22 00:00: 00 Overview: Formattin g of this note might be different from the original. Last Assessmen t & Plan: Condition : stableFol low up in: three months [facility] H/O right nephrectom y H/O right nephrectom y Disease Active 12-05 00:00: 00 Overview: Formattin g of this note might be different from the original. 2019 [facility] Status post nephrectom y Status post nephrectom y Disease Active 12-05 00:00: 00 [facility] Pulmonary nodules Pulmonary nodules Disease Active 12-05 00:00: 00 [facility] Renal mass Renal mass Disease Active 2018-11 00:00: 00 Overview: Formattin g of this note might be different from the original. Added automatic ally from request for surgery [id number] [facility] Angiomyoli guevara of both kidneys Angiomyoli guevara of both kidneys Disease Active 2018-11 00:00: 00 Overview: Formattin g of this note might be different from the original. Added automatic ally from request for surgery [id number] [facility] Seizure disorder Seizure disorder Problem Active [facility] Back pain Back pain Problem Active [facility] Obesity Obesity Problem Active [facility] Insomnia Insomnia Problem Active Commo n [facility] Mixed anxiety and depressive disorder Depression with anxiety Problem Active [facility] Angiomyoli guevara of left kidney Angiomyoli guevara of left kidney Problem Active [facility] Seizure Seizures Problem Active [facility] [id number] Pornograph y addiction Problem Active [facility] [id number] BCP ( control pills) initiation Problem Active [facility] [id number] Exposure to sexually transmitte d disease (STD) Problem Active [facility] Tuberous sclerosis Tuberous sclerosis Problem Active [facility] [id number] Acne rosacea Problem Active [facility] [id number] Gastroesop hageal reflux disease without esophagiti s Problem Active [facility] [id number] Uses control Problem Active [facility] Onychomyco sis Onychomyco sis Problem Active [facility] Panic disorder Panic attacks Problem Active [facility] [id number] Seasonal allergies Problem Active [facility] [id number] test performed, confirmed Problem Active [facility] Benign neoplasm of kidney Benign neoplasm of kidney [facility] Mental retardatio n Mental retardatio n Problem Active [facility] Angiomyoli guevara of kidney Angiomyoli guevara of kidney Problem Active [facility] Tuberous sclerosis Tuberous sclerosis Problem Active [facility] 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, notintrac, 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, notintrac, w status Problem Active [facility] Pre-transp lant evaluation for kidney transplant Pre-transp lant evaluation for kidney transplant Disease Resolve d 2021-0 1-27 00:00: 00 2024-06-20 00:00:00 2024-06-20 12:11:18 [facility] Gastritis Gastritis Disease Resolve d 1 0-10 00:00: 00 2024-06-20 00:00:00 2024-06-20 12:11:29 [facility] Dysuria Dysuria Disease Resolve d 2020-0 9-24 00:00: 00 2024-06-20 00:00:00 2024-06-20 12:11:13 [facility] Acute left flank pain Acute left flank pain Disease Resolve d 2020-0 6-29 00:00: 00 2024-06-20 00:00:00 2024-06-20 12:11:41 [facility] Benign renal tumor Benign renal tumor Disease Resolve d 2020-0 4-28 00:00: 00 2024-06-20 00:00:00 2024-06-20 12:09:41 [facility] Acute midline low back pain without sciatica Acute midline low back pain without sciatica Disease Resolve d 2019-0 6-10 00:00: 00 2024-06-20 00:00:00 2024-06-20 12:11:43 Overview: Formattin g of this note might be different from the original. Last Assessmen t [...] as possible. Follow up in: three months [facility] Nausea Nausea Disease Resolve d 6-10 00:00: 00 2024-06-20 00:00:00 2024-06-20 12:09:25 [facility] Nerve pain Nerve pain Disease Resolve d 6-10 00:00: 00 2024-06-20 00:00:00 2024-06-20 12:09:26 Overview: Formattin g of this note might be different from the original. Last Assessmen t & Plan: Condition : stableFol low up in: three months [facility] Obesity (BMI 30-39.9) Obesity (BMI 30-39.9) Disease Resolve d 2018-11 1-15 00:00: 00 2024-06-20 00:00:00 2024-06-20 12:09:14 [facility] Mass of right kidney Mass of right kidney Disease Resolve d 2018-11 1-14 00:00: 00 2024-06-20 00:00:00 2024-06-20 12:09:11 [facility] Vaginal discharge Vaginal discharge Disease Resolve d 2020-0 9-24 00:00: 00 2023-09-12 00:00:00 2023-09-12 15:05:30 [facility] Bacterial vaginitis Bacterial vaginitis Disease Resolve d 2019-11 0-19 00:00: 00 2023-09-12 00:00:00 2023-09-12 15:05:32 [facility] Candidiasi s of vulva and vagina Candidiasi s of vulva and vagina Disease Resolve d 2019-11 0-19 00:00: 00 2023-09-12 00:00:00 2023-09-12 15:05:33 [facility] Allergies, Adverse Reactions, Alerts Allergy Name Allergy Type Status Severity Reaction(s) Onset Date Inactive Date Treating Clinician Comments Source NO KNOWN ALLERGIE S Drug Class Active [facility] Social History Social Habit Start Date Stop Date Quantity Comments Source Gender [facility] History SDOH Alcohol Std Drinks [facility] History SDOH Alcohol Binge [facility] History SDOH Alcohol Comment [facility] History of Tobacco Use [facility] Sex Assigned At [facility] Tobacco use and exposure 2024-06-20 00:00:00 2024-06-20 00:00:00 Smokeless tobacco non-user [facility] Alcoholic beverage intake 2024-06-20 00:00:00 2024-06-20 00:00:00 Lifetime non-drinker (finding) [facility] History of Social function 2024-06-18 00:00:00 2024-06-18 00:00:00 [facility] Alcohol intake 2024-01-09 00:00:00 2024-01-09 00:00:00 Lifetime non-drinker (finding) [facility] Exposure to SARS-CoV-2 (event) 2023-03-12 00:00:00 2023-03-22 07:37:00 Not sure [facility] Education 2021-05-07 00:00:00 2021-05-07 00:00:00 13 [facility] History SDOH Alcohol Frequency 2020-01-17 00:00:00 2020-01-17 00:00:00 1 [facility] History SDOH Financial 2019-09-26 00:00:00 2019-09-26 00:00:00 5 [facility] History SDOH Food Worry 2019-09-26 00:00:00 2019-09-26 00:00:00 1 [facility] History SDOH Food Scarcity 2019-09-26 00:00:00 2019-09-26 00:00:00 1 [facility] History SDOH Transport Med 2019-09-26 00:00:00 2019-09-26 00:00:00 2 [facility] History SDOH Transport Non-Med 2019-09-26 00:00:00 2019-09-26 00:00:00 2 [facility] Smoking Status Start Date Stop Date Source Never smoked tobacco [facility] Medications Ordered Medication Name Filled Medication Name Start Date Stop Date Current Medication? Ordering Clinician Indication Dosage Frequency Signature (SIG) Comments Components Source melatonin (MELATIN) tablet 3 mg 06-22 06:00: 00 06-22 06:42 :00 No 3mg 3 mg, Oral, ONCE, 1 dose, On Mon06/22/24 at 0100, Routine [facility] acetaminoph en-codeine (TYLENOL #3) 300-30 mg tablet 1 tablet 06-21 12:13: 38 Yes 1{tbl} 1 tablet, Oral, Q4HPRN, Starting on Mon06/21/24 at 0713, Until Discontinu ed, Routine, Pain (scale 4-6) [facility] escitalopra m oxalate (LEXAPRO) tablet 20 mg 06-20 14:00: 00 Yes 20mg 20 mg, Oral, DAILY, First dose on Mon06/20/24 at 0900, Until Discontinu ed, Routine [facility] lamoTRIgine (LAMICTAL) tablet 100 mg 06-20 13:00: 00 Yes 100mg 100 mg, Oral, BID, First dose on Mon06/20/24 at 0800, Until Discontinu ed, Routine [facility] magnesium sulfate in water 4 gram/50 mL (8 %) IV Piggyback 4 g 06-20 13:00: 00 06-20 19:03 :00 No 4g 4 g, IV Piggyback, at 25 mL/hr Administer over 120 Minutes, ONCE, 1 dose, On Mon06/20/24 at 0800, Routine [facility] ondansetron (ZOFRAN (PF)) injection 4 mg 06-20 06:09: 35 Yes 4mg [facility] morphine (2 mg/mL) injection 4 mg 06-20 06:09: 35 06-21 06:08 :35 No 4mg 4 mg, Slow IV Push, Q4HPRN, Starting on Mon06/20/24 at 0109, Until Mon06/21/24 at 0108, Routine, Pain (scale 7-10) [facility] acetaminoph en (TYLENOL) tablet 650 mg 06-20 06:09: 34 Yes 650mg 650 mg, Oral, Q6HPRN, Starting on Trang 06/20/24 at 0109, Until Discontinu ed, Routine, Pain (scale 1-3) [facility] albuterol (VENTOLIN) inhaler 2 Puff 06-20 06:09: 34 Yes 2{puff} [facility] ondansetron (ZOFRAN (PF)) injection 4 mg 06-20 04:15: 00 06-20 04:12 :00 No 4mg 4 mg, Slow IV Push, ONCE, 1 dose, On Mon06/19/24 at 2315, ENRIQUE [facility] morphine (2 mg/mL) injection 4 mg 06-20 04:15: 06-20 04:11 :00 No 4mg 4 mg, Slow IV Push, ONCE, 1 dose, On Mon06/19/24 at 2315, STAT [facility] iopamidol (ISOVUE 370-500 mL) injection 100 mL 06-20 03:25: 00 06-20 03:15 :00 No [id number] 100mL 100 mL, Intravenou s, ONCE, 1 dose, On Mon06/19/24 at 2230, Routine [facility] NaCl 0.9% (NS) bolus infusion 1,000 mL 06-20 03:15: 00 06-20 05:26 :00 No 1000mL at 999 mL/hr, 1,000 mL, IV Infusion, ONCE, 1 dose, On Mon06/19/24 at 2215, ENRIQUE [facility] ondansetron (ZOFRAN (PF)) injection 4 mg 06-17 06:00: 00 06-17 06:04 :00 No 4mg 4 mg, Slow IV Push, ONCE, 1 dose, On Mon06/17/24 at 0100, ENRIQUE [facility] morpHINE (4 mg/mL) injection 4 mg 06-17 06:00: 00 06-17 06:04 :00 No 4mg 4 mg, Slow IV Push, ONCE, 1 dose, On Mon06/17/24 at 0100, STAT [facility] NaCl 0.9% (NS) bolus infusion 500 mL 06-17 06:00: 00 06-17 07:20 :00 No 500mL at 999 mL/hr, 500 mL, IV Infusion, ONCE, 1 dose, On Mon06/17/24 at 0100, STAT [facility] METOPROLOL SUCCINATE XL 25 mg 24 hr tablet 05-08 00:00: 00 Yes [id number] TAKE 1 TABLET BY MOUTH EVERY DAY IN THE MORNING [facility] perflutren lipid microsphere s (DEFINITY) injection 2 mL 04-09 19:45: 00 04-09 19:16 :00 No [id number] 2mL 2 mL, IV Push, ONCE, 1 dose, On Mon04/09/24 at 1445, Routine [facility] FLUoxetine 20 mg capsule 04-09 12:22: 08 04-09 00:00 :00 No 20mg Take 1 capsule by mouth in the morning. [facility] escitalopra m oxalate 20 mg tablet 04-09 12:22: 07 Yes 20mg Take 1 tablet by mouth in the morning. [facility] medroxyPROG ESTERone (DEPO-PROVE RA) syringe 150 mg 03-26 14:45: 00 05-20 14:44 :00 Yes [id number] 150mg 150 mg, Intramuscu lar, [id number], 5 doses, First dose on Mon03/26/24 at 0945, Last dose on Mon02/25/25 at 0945, Routine [facility] busPIRone 7.5 mg tablet 03-07 00:00: 00 Yes 7.5mg Take 1 tablet by mouth in the morning and 1 tablet in the evening. [facility] lamoTRIgine 100 mg tablet 2024-0 4-24 00:00: 00 Yes 100mg Take 1 tablet by mouth in the morning and 1 tablet in the evening. [facility] FLUoxetine 20 mg capsule 4-19 08:34: 08 04-09 00:00 :00 No 20mg Take 1 capsule by mouth in the morning. [facility] omeprazole 20 mg capsule 3-27 00:00: 00 Yes 20mg Take 1 capsule by mouth in the morning. [facility] medroxyPROG ESTERone (DEPO-PROVE RA) syringe 150 mg 2-20 18:00: 00 01-02 17:03 :00 No [id number] 150mg [facility] sodium bicarbonate 650 mg tablet 2-13 00:00: 00 04-10 00:00 :00 No [facility] lidocaine (XYLOCAINE) 2 % jelly URO-JET 11 mL 12-19 17:45: 00 12-19 16:50 :00 No [id number] 11mL [facility] water for injection, sterile injection 10 mL 12-19 17:30: 00 12-19 16:34 :00 No [id number] 10mL [facility] clostridium botulinum toxin (BOTOX) injection 100 Units 06 17:30: 00 12-19 17:33 :00 No [id number] 100U [facility] NaCl 0.9% (NS) IV Line Priming and Flushing Fluid Only 10 mL 06 17:30: 00 12-19 16:50 :00 No [id number] 10mL [facility] lidocaine 2% (XYLOCAINE) 20 mg/mL (2 %) injection 20 mL 06 17:15: 00 12-19 16:36 :00 No [id number] 20mL [facility] Nitrofurant oin&Nit. Macrocryst (MACROBID) 100 mg capsule 1-02 00:00: 00 11-21 05:59 :00 No [id number] 100mg Take 1 capsule by mouth at bedtime for 6 doses. 3 days prior to procedure and 3 days after [facility] METOPROLOL SUCCINATE XL 25 mg 24 hr tablet 2022-0 8-07 00:00: 00 05-08 00:00 :00 No [id number] TAKE 1 TABLET BY MOUTH EVERY DAY IN THE MORNING [facility] METOPROLOL SUCCINATE XL 25 mg 24 hr tablet 0 7-19 00:00: 00 Yes [id number] TAKE 1 TABLET BY MOUTH EVERY DAY IN THE MORNING [facility] metoprolol succinate XL 25 mg 24 hr tablet 0 6-26 00:00: 00 04-09 00:00 :00 No 25mg Take 1 tablet by mouth in the morning. [facility] metoprolol succinate XL 25 mg 24 hr tablet 0 5-31 00:00: 00 05-31 00:00 :00 No [id number] 25mg Take 1 tablet by mouth in the morning. [facility] medroxyPROG ESTERone (DEPO-PROVE RA) syringe 150 mg 01-31 19:45: 00 10-10 13:57 :00 No [id number] 150mg 150 mg, Intramuscu lar, [id number], 4 doses, First dose on Mon01/31/23 at 1445, Last dose on Mon10/10/23 at 1445, Routine [facility] medroxyPROG ESTERone (DEPO-PROVE RA) syringe 150 mg 2021-11 17:15: 00 11-08 16:20 :00 No [id number] 150mg [facility] fluconazole (DIFLUCAN) 150 mg tablet 08-11 00:00: 00 08-12 04:59 :00 No [id number] 150mg Take 1 tablet by mouth once now for 1 dose. [facility] medroxyPROG ESTERone (DEPO-PROVE RA) syringe 150 mg 08-09 17:30: 00 08-09 16:45 :00 No [id number] [facility] 150 mg/mL injection 2020-11 11:00: 49 09-30 00:00 :00 No 150mg 150 mg by Intramuscu lar route every 3 (three) months. [facility] Lamotrigine 100 mg TbDL 2020-11 00:00: 00 Yes [id number] 1{tbl} Take 1 tablet by mouth 2 (two) times daily. [facility] medroxyPROG ESTERone (DEPO-PROVE RA) injection 150 mg 2020-11 14:15: 00 05-17 14:26 :00 No [id number] 150mg 150 mg, Intramuscu lar, [id number], 4 doses, First dose on Mon08/30/21 at 0915, Last dose on Mon05/09/22 at 0915, Routine [facility] albuterol (PROAIR HFA) 90 mcg/actuati on inhaler 2020-11 00:00: 00 Yes [id number] INHALE 1 TO 2 PUFFS BY MOUTH EVERY 4 TO 6 HOURS NEEDED [facility] pantoprazol e 40 mg EC tablet 07-29 00:00: 00 09-30 00:00 :00 No [id number] 40mg Take 1 tablet by mouth daily. [facility] benzocaine- menthoL (CEPACOL INSTAMAX SORE THROAT) 15-20 mg Lozg -13 00:00: 00 09-30 00:00 :00 No [id number] 1{lozen ge} Apply 1 Lozenge as directed every 6 (six) hours as needed for Other (Sore throat). [facility] Lamotrigine 100 mg TbDL 03-29 11:16: 59 03-29 00:00 :00 No Take by mouth 2 (two) times daily. [facility] busPIRone 15 mg tablet 03-29 00:00: 00 09-30 00:00 :00 No [id number] 7.5mg Take 0.5-1 tablets by mouth 2 (two) times daily. [facility] escitalopra m oxalate 20 mg tablet 03-29 00:00: 00 09-30 00:00 :00 No [id number] 20mg Take 1 tablet by mouth in the morning. [facility] Lamotrigine 100 mg TbDL 03-29 00:00: 00 09-06 00:00 :00 No [id number] 1{tbl} Take 1 tablet by mouth 2 (two) times daily. [facility] ondansetron 4 mg disintegrat ing tablet 3-29 00:00: 00 09-30 00:00 :00 No [id number] 4mg Take 1 tablet by mouth every 8 (eight) hours as needed for Nausea and Vomiting (N/V). [facility] pyridoxine, VITAMIN B-6, 50 mg tablet 12-09 00:00: 00 09-30 00:00 :00 No [id number] 50mg Take 1 tablet by mouth daily. [facility] Cholecalcif fredy, Vitamin D3, (D3-2000) 50 mcg (2,000 unit) capsule 12-09 00:00: 00 09-30 00:00 :00 No [id number] 2000U Take 1 capsule by mouth daily. Take with food. [facility] pramipexole (MIRAPEX) 0.125 mg tablet 12-04 00:00: 00 09-30 00:00 :00 No [id number] .125mg Take 1 tablet by mouth at bedtime. [facility] busPIRone 15 mg tablet 12-04 00:00: 00 03-29 00:00 :00 No [id number] 7.5mg Take 0.5-1 tablets by mouth 2 (two) times daily. [facility] escitalopra m oxalate 20 mg tablet 2019-11 2-14 00:00: 00 03-29 00:00 :00 No [facility] Xulane 150-35 MCG/24HR Xulane 150-35 MCG/24HR 2019-11 0-22 00:00: 00 No Xulane 150-35 MCG/24HR Xulane 150-35 MCG/24HR Xulane 150-35 MCG/24HR 2019-11 0-20 00:00: 00 No Xulane 150-35 MCG/24HR Xulane 150-35 MCG/24HR Xulane 150-35 MCG/24HR 2019-11 0-20 00:00: 00 No Xulane 150-35 MCG/24HR Benzonatate 100 MG Benzonatate 100 MG 08-12 00:00: 09-11 00:00 :00 No 1{capsu le_as_n eeded} Benzonatat e 100 MG Benzonatate 100 MG Benzonatate 100 MG 08-12 00:00: 09-11 00:00 :00 No 1{capsu le_as_n eeded} Benzonatat e 100 MG Azithromyci n 250 MG Azithromyci n 250 MG 08-12 00:00: 00 08-17 00:00 :00 No QD Azithromyc in 250 MG PROAIR HFA 90 mcg/actuati on inhaler 08-09 00:00: 00 08-30 00:00 :00 No INHALE 1 TO 2 PUFFS BY MOUTH EVERY 4 TO 6 HOURS NEEDED FOR COUGH [facility] Magnesium Oxide Magnesium Oxide 07-23 00:00: 00 08-22 00:00 :00 No Na Bates 1 tablet as needed for leg cramps [facility] Magnesium Oxide 400 MG Magnesium Oxide 400 MG 07-23 00:00: 00 08-22 00:00 :00 No QD Magnesium Oxide 400 MG Everolimus (AFINITOR) 10 mg tablet 3-09 00:00: 00 01-22 00:00 :00 No [id number] 10mg Take 1 tablet by mouth daily. [facility] Clonazepam Clonazepam 2018-11 2-16 00:00: 00 Yes Na Bates 1 tablet on the tongue and allow to dissolve as needed for acute panic attacks [facility] Clonazepam 0.5 MG Clonazepam 0.5 MG 2018-11 00:00: 00 No QD Clonazepam 0.5 MG Clonazepam 0.5 MG Clonazepam 0.5 MG 2018-11 00:00: 00 No QD Clonazepam 0.5 MG Afinitor 5 MG Oral Tablet Afinitor 5 MG Oral Tablet 07-04 14:39: 34 Yes ALFREDO EUGENE M.D. TAKE 1 TABLET BY MOUTH DAILY [facility] lamoTRIgine 100 MG Oral Tablet lamoTRIgine 100 MG Oral Tablet 2014-11 00:00: 00 Yes ALONZO GONZALES M.D. Q0.5D TAKE 1 TABLET TWICE DAILY [facility] Gianvi Gianvi Yes Na Bates 1 tablet [facility] Cetirizine HCl Cetirizine HCl Yes Na Bates take 1 tablet by mouth every day as needed for allergies [facility] Lamictal Lamictal Yes Na Bates 1 tablet [facility] Ondansetron HCl Ondansetron HCl Yes Na Bates as directed [facility] Lexapro Lexapro Yes Na Bates 1 tablet [facility] Quetiapine Fumarate Quetiapine Fumarate Yes Na Bates TAKE 1 TABLET BY MOUTH AT BEDTIME [facility] Afinitor Afinitor Yes Na Bates 1 tablet [facility] Pantoprazol e Sodium Pantoprazol e Sodium Yes Na Bates 1 tablet [facility] Afinitor 5 MG Afinitor 5 MG No 1{table t} QD Afinitor 5 MG Ondansetron HCl 4 MG Ondansetron HCl 4 MG No Ondansetro n HCl 4 MG Magnesium Oxide 400 MG Magnesium Oxide 400 MG No QD Magnesium Oxide 400 MG Cetirizine HCl 10 MG Cetirizine HCl 10 MG No QD Cetirizine HCl 10 MG Gianvi 3-0.02 MG Gianvi 3-0.02 MG No 1{table t} QD Gianvi 3-0.02 MG Quetiapine Fumarate 50 MG Quetiapine Fumarate 50 MG No Quetiapine Fumarate 50 MG Lamictal 100 MG Lamictal 100 MG No 1{table t} BID Lamictal 100 MG Lexapro 20 MG Lexapro 20 MG No 1{table t} QD Lexapro 20 MG Cetirizine HCl 10 MG Cetirizine HCl 10 MG No QD Cetirizine HCl 10 MG Lexapro 20 MG Lexapro 20 MG No 1{table t} QD Lexapro 20 MG Pantoprazol e Sodium 40 MG Pantoprazol e Sodium 40 MG No 1{table t} QD Pantoprazo le Sodium 40 MG Lamictal 100 MG Lamictal 100 MG No 1{table t} BID Lamictal 100 MG Quetiapine Fumarate 50 MG Quetiapine Fumarate 50 MG No Quetiapine Fumarate 50 MG Ondansetron HCl 4 MG Ondansetron HCl 4 MG No Ondansetro n HCl 4 MG Gianvi 3-0.02 MG Gianvi 3-0.02 MG No 1{table t} QD Gianvi 3-0.02 MG Afinitor 5 MG Afinitor 5 MG No 1{table t} QD Afinitor 5 MG Pantoprazol e Sodium 40 MG Pantoprazol e Sodium 40 MG No 1{table t} QD Pantoprazo le Sodium 40 MG Immunizations Ordered Immunization Name Filled Immunization Name Date Status Comments Source HPV9 2023-04-25 00:00:00 Completed [facility] HPV9 2023-04-25 00:00:00 Completed [facility] HPV9 2023-04-25 00:00:00 Completed [facility] HPV9 2023-04-25 00:00:00 Completed [facility] HPV9 2023-04-25 00:00:00 Completed [facility] HPV9 2023-04-25 00:00:00 Completed [facility] HPV9 2023-04-25 00:00:00 Completed [facility] HPV9 2023-04-25 00:00:00 Completed [facility] Influenza Virus Vaccine Quad IM, Preserv and ABX Free 6 MO-64 YRS 2023-01-31 00:00:00 Completed [facility] HPV9 2023-01-31 00:00:00 Completed [facility] Influenza Virus Vaccine Quad IM, Preserv and ABX Free 6 MO-64 YRS 2023-01-31 00:00:00 Completed [facility] HPV9 2023-01-31 00:00:00 Completed [facility] Influenza Virus Vaccine Quad IM, Preserv and ABX Free 6 MO-64 YRS 2023-01-31 00:00:00 Completed [facility] HPV9 2023-01-31 00:00:00 Completed [facility] Influenza Virus Vaccine Quad IM, Preserv and ABX Free 6 MO-64 YRS 2023-01-31 00:00:00 Completed [facility] HPV9 2023-01-31 00:00:00 Completed [facility] Influenza Virus Vaccine Quad IM, Preserv and ABX Free 6 MO-64 YRS 2023-01-31 00:00:00 Completed [facility] HPV9 2023-01-31 00:00:00 Completed [facility] Influenza Virus Vaccine Quad IM, Preserv and ABX Free 6 MO-64 YRS 2023-01-31 00:00:00 Completed [facility] HPV9 2023-01-31 00:00:00 Completed [facility] Influenza Virus Vaccine Quad IM, Preserv and ABX Free 6 MO-64 YRS 2023-01-31 00:00:00 Completed [facility] HPV9 2023-01-31 00:00:00 Completed [facility] Influenza Virus Vaccine Quad IM, Preserv and ABX Free 6 MO-64 YRS 2023-01-31 00:00:00 Completed [facility] HPV9 2023-01-31 00:00:00 Completed [facility] Influenza Virus Vaccine Quad IM, Preserv and ABX Free 6 MO-64 YRS 2023-01-31 00:00:00 Completed [facility] HPV9 2023-01-31 00:00:00 Completed [facility] Influenza Virus Vaccine Quad IM, Preserv and ABX Free 6 MO-64 YRS 2023-01-31 00:00:00 Completed [facility] HPV9 2023-01-31 00:00:00 Completed [facility] Influenza Virus Vaccine Quad IM, Preserv and ABX Free 6 MO-64 YRS 2023-01-31 00:00:00 Completed [facility] HPV9 2023-01-31 00:00:00 Completed [facility] Influenza Virus Vaccine Quad IM, Preserv and ABX Free 6 MO-64 YRS 2023-01-31 00:00:00 Completed [facility] HPV9 2023-01-31 00:00:00 Completed [facility] Influenza Virus Vaccine Quad IM, Preserv and ABX Free 6 MO-64 YRS 2023-01-31 00:00:00 Completed [facility] HPV9 2023-01-31 00:00:00 Completed [facility] Influenza Virus Vaccine Quad IM, Preserv and ABX Free 6 MO-64 YRS 2023-01-31 00:00:00 Completed [facility] HPV9 2023-01-31 00:00:00 Completed [facility] Influenza Virus Vaccine Quad IM, Preserv and ABX Free 6 MO-64 YRS 2023-01-31 00:00:00 Completed [facility] HPV9 2023-01-31 00:00:00 Completed [facility] Influenza Virus Vaccine Quad IM, Preserv and ABX Free 6 MO-64 YRS 2023-01-31 00:00:00 Completed [facility] HPV9 2023-01-31 00:00:00 Completed [facility] Influenza Virus Vaccine Quad IM, Preserv and ABX Free 6 MO-64 YRS 2023-01-31 00:00:00 Completed [facility] HPV9 2023-01-31 00:00:00 Completed [facility] Influenza Virus Vaccine Quad IM, Preserv and ABX Free 6 MO-64 YRS (FLUCELVAX) 2023-01-31 00:00:00 Completed [facility] HPV9 2023-01-31 00:00:00 Completed [facility] Influenza Virus Vaccine Quad IM, Preserv and ABX Free 6 MO-64 YRS (FLUCELVAX) 2023-01-31 00:00:00 Completed [facility] HPV9 2023-01-31 00:00:00 Completed [facility] Influenza Virus Vaccine Quad IM, Preserv and ABX Free 6 MO-64 YRS (FLUCELVAX) 2023-01-31 00:00:00 Completed [facility] HPV9 2023-01-31 00:00:00 Completed [facility] Influenza Virus Vaccine Quad IM, Preserv and ABX Free 6 MO-64 YRS (FLUCELVAX) 2023-01-31 00:00:00 Completed [facility] HPV9 2023-01-31 00:00:00 Completed [facility] SARS-COV-2 COVID-19 PFIZER VACCINE 2021-11-17 00:00:00 Completed [facility] SARS-COV-2 COVID-19 PFIZER VACCINE 2021-11-17 00:00:00 Completed [facility] SARS-COV-2 COVID-19 PFIZER VACCINE 2021-11-17 00:00:00 Completed [facility] SARS-COV-2 COVID-19 PFIZER VACCINE 2021-11-17 00:00:00 Completed [facility] SARS-COV-2 COVID-19 PFIZER VACCINE 2021-11-17 00:00:00 Completed [facility] SARS-COV-2 COVID-19 PFIZER VACCINE 2021-11-17 00:00:00 Completed [facility] SARS-COV-2 COVID-19 PFIZER VACCINE 2021-11-17 00:00:00 Completed [facility] SARS-COV-2 COVID-19 PFIZER VACCINE 2021-11-17 00:00:00 Completed [facility] SARS-COV-2 COVID-19 PFIZER VACCINE 2021-11-17 00:00:00 Completed [facility] SARS-COV-2 COVID-19 PFIZER VACCINE 2021-11-17 00:00:00 Completed [facility] SARS-COV-2 COVID-19 PFIZER VACCINE 2021-11-17 00:00:00 Completed [facility] SARS-COV-2 COVID-19 PFIZER VACCINE 2021-11-17 00:00:00 Completed [facility] SARS-COV-2 COVID-19 PFIZER VACCINE 2021-11-17 00:00:00 Completed [facility] SARS-COV-2 COVID-19 PFIZER VACCINE 2021-11-17 00:00:00 Completed [facility] SARS-COV-2 COVID-19 PFIZER VACCINE 2021-11-17 00:00:00 Completed [facility] SARS-COV-2 COVID-19 PFIZER VACCINE 2021-11-17 00:00:00 Completed [facility] SARS-COV-2 COVID-19 PFIZER VACCINE 2021-11-17 00:00:00 Completed [facility] SARS-COV-2 COVID-19 PFIZER VACCINE 2021-11-17 00:00:00 Completed [facility] SARS-COV-2 COVID-19 PFIZER VACCINE 2021-11-17 00:00:00 Completed [facility] SARS-COV-2 COVID-19 PFIZER VACCINE 2021-11-17 00:00:00 Completed [facility] SARS-COV-2 COVID-19 PFIZER VACCINE 2021-11-17 00:00:00 Completed [facility] Influenza Virus Vaccine Quad IM, Preserv and ABX Free 6 MO-64 YRS 2021-08-30 00:00:00 Completed [facility] Influenza Virus Vaccine Quad IM, Preserv and ABX Free 6 MO-64 YRS 2021-08-30 00:00:00 Completed [facility] Influenza Virus Vaccine Quad IM, Preserv and ABX Free 6 MO-64 YRS 2021-08-30 00:00:00 Completed [facility] Influenza Virus Vaccine Quad IM, Preserv and ABX Free 6 MO-64 YRS 2021-08-30 00:00:00 Completed [facility] Influenza Virus Vaccine Quad IM, Preserv and ABX Free 6 MO-64 YRS 2021-08-30 00:00:00 Completed [facility] Influenza Virus Vaccine Quad IM, Preserv and ABX Free 6 MO-64 YRS 2021-08-30 00:00:00 Completed [facility] Influenza Virus Vaccine Quad IM, Preserv and ABX Free 6 MO-64 YRS 2021-08-30 00:00:00 Completed [facility] Influenza Virus Vaccine Quad IM, Preserv and ABX Free 6 MO-64 YRS 2021-08-30 00:00:00 Completed [facility] Influenza Virus Vaccine Quad IM, Preserv and ABX Free 6 MO-64 YRS 2021-08-30 00:00:00 Completed [facility] Influenza Virus Vaccine Quad IM, Preserv and ABX Free 6 MO-64 YRS 2021-08-30 00:00:00 Completed [facility] Influenza Virus Vaccine Quad IM, Preserv and ABX Free 6 MO-64 YRS 2021-08-30 00:00:00 Completed [facility] Influenza Virus Vaccine Quad IM, Preserv and ABX Free 6 MO-64 YRS 2021-08-30 00:00:00 Completed [facility] Influenza Virus Vaccine Quad IM, Preserv and ABX Free 6 MO-64 YRS 2021-08-30 00:00:00 Completed [facility] Influenza Virus Vaccine Quad IM, Preserv and ABX Free 6 MO-64 YRS 2021-08-30 00:00:00 Completed [facility] Influenza Virus Vaccine Quad IM, Preserv and ABX Free 6 MO-64 YRS 2021-08-30 00:00:00 Completed [facility] Influenza Virus Vaccine Quad IM, Preserv and ABX Free 6 MO-64 YRS 2021-08-30 00:00:00 Completed [facility] Influenza Virus Vaccine Quad IM, Preserv and ABX Free 6 MO-64 YRS 2021-08-30 00:00:00 Completed [facility] Influenza Virus Vaccine Quad IM, Preserv and ABX Free 6 MO-64 YRS 2021-08-30 00:00:00 Completed [facility] Influenza Virus Vaccine Quad IM, Preserv and ABX Free 6 MO-64 YRS 2021-08-30 00:00:00 Completed [facility] Influenza Virus Vaccine Quad IM, Preserv and ABX Free 6 MO-64 YRS 2021-08-30 00:00:00 Completed [facility] Influenza Virus Vaccine Quad IM, Preserv and ABX Free 6 MO-64 YRS 2021-08-30 00:00:00 Completed [facility] Influenza Virus Vaccine Quad IM, Preserv and ABX Free 6 MO-64 YRS 2021-08-30 00:00:00 Completed [facility] Influenza Virus Vaccine Quad IM, Preserv and ABX Free 6 MO-64 YRS 2021-08-30 00:00:00 Completed [facility] Influenza Virus Vaccine Quad IM, Preserv and ABX Free 6 MO-64 YRS 2021-08-30 00:00:00 Completed [facility] Influenza Virus Vaccine Quad IM, Preserv and ABX Free 6 MO-64 YRS 2021-08-30 00:00:00 Completed [facility] Influenza Virus Vaccine Quad IM, Preserv and ABX Free 6 MO-64 YRS 2021-08-30 00:00:00 Completed [facility] Influenza Virus Vaccine Quad IM, Preserv and ABX Free 6 MO-64 YRS 2021-08-30 00:00:00 Completed [facility] Influenza Virus Vaccine Quad IM, Preserv and ABX Free 6 MO-64 YRS 2021-08-30 00:00:00 Completed [facility] Influenza Virus Vaccine Quad IM, Preserv and ABX Free 6 MO-64 YRS 2021-08-30 00:00:00 Completed [facility] Influenza Virus Vaccine Quad IM, Preserv and ABX Free 6 MO-64 YRS 2021-08-30 00:00:00 Completed [facility] Influenza Virus Vaccine Quad IM, Preserv and ABX Free 6 MO-64 YRS 2021-08-30 00:00:00 Completed [facility] Influenza Virus Vaccine Quad IM, Preserv and ABX Free 6 MO-64 YRS 2021-08-30 00:00:00 Completed [facility] Influenza Virus Vaccine Quad IM, Preserv and ABX Free 6 MO-64 YRS 2021-08-30 00:00:00 Completed [facility] Influenza Virus Vaccine Quad IM, Preserv and ABX Free 6 MO-64 YRS 2021-08-30 00:00:00 Completed [facility] Influenza Virus Vaccine Quad IM, Preserv and ABX Free 6 MO-64 YRS 2021-08-30 00:00:00 Completed [facility] Influenza Virus Vaccine Quad IM, Preserv and ABX Free 6 MO-64 YRS 2021-08-30 00:00:00 Completed [facility] Influenza Virus Vaccine Quad IM, Preserv and ABX Free 6 MO-64 YRS 2021-08-30 00:00:00 Completed [facility] Influenza Virus Vaccine Quad IM, Preserv and ABX Free 6 MO-64 YRS (FLUCELVAX) 2021-08-30 00:00:00 Completed [facility] Influenza Virus Vaccine Quad IM, Preserv and ABX Free 6 MO-64 YRS (FLUCELVAX) 2021-08-30 00:00:00 Completed [facility] Influenza Virus Vaccine Quad IM, Preserv and ABX Free 6 MO-64 YRS (FLUCELVAX) 2021-08-30 00:00:00 Completed [facility] Influenza Virus Vaccine Quad IM, Preserv and ABX Free 6 MO-64 YRS (FLUCELVAX) 2021-08-30 00:00:00 Completed [facility] SARS-COV-2 COVID-19 PFIZER VACCINE 2021-02-23 00:00:00 Completed [facility] SARS-COV-2 COVID-19 PFIZER VACCINE 2021-02-23 00:00:00 Completed [facility] SARS-COV-2 COVID-19 PFIZER VACCINE 2021-02-23 00:00:00 Completed [facility] SARS-COV-2 COVID-19 PFIZER VACCINE 2021-02-23 00:00:00 Completed [facility] SARS-COV-2 COVID-19 PFIZER VACCINE 2021-02-23 00:00:00 Completed [facility] SARS-COV-2 COVID-19 PFIZER VACCINE 2021-02-23 00:00:00 Completed [facility] SARS-COV-2 COVID-19 PFIZER VACCINE 2021-02-23 00:00:00 Completed [facility] SARS-COV-2 COVID-19 PFIZER VACCINE 2021-02-23 00:00:00 Completed [facility] SARS-COV-2 COVID-19 PFIZER VACCINE 2021-02-23 00:00:00 Completed [facility] SARS-COV-2 COVID-19 PFIZER VACCINE 2021-02-23 00:00:00 Completed [facility] SARS-COV-2 COVID-19 PFIZER VACCINE 2021-02-23 00:00:00 Completed [facility] SARS-COV-2 COVID-19 PFIZER VACCINE 2021-02-23 00:00:00 Completed [facility] SARS-COV-2 COVID-19 PFIZER VACCINE 2021-02-23 00:00:00 Completed [facility] SARS-COV-2 COVID-19 PFIZER VACCINE 2021-02-23 00:00:00 Completed [facility] SARS-COV-2 COVID-19 PFIZER VACCINE 2021-02-23 00:00:00 Completed [facility] SARS-COV-2 COVID-19 PFIZER VACCINE 2021-02-23 00:00:00 Completed [facility] SARS-COV-2 COVID-19 PFIZER VACCINE 2021-02-23 00:00:00 Completed [facility] SARS-COV-2 COVID-19 PFIZER VACCINE 2021-02-23 00:00:00 Completed [facility] SARS-COV-2 COVID-19 PFIZER VACCINE 2021-02-23 00:00:00 Completed [facility] SARS-COV-2 COVID-19 PFIZER VACCINE 2021-02-23 00:00:00 Completed [facility] SARS-COV-2 COVID-19 PFIZER VACCINE 2021-02-23 00:00:00 Completed [facility] SARS-COV-2 COVID-19 PFIZER VACCINE 2021-02-23 00:00:00 Completed [facility] SARS-COV-2 COVID-19 PFIZER VACCINE 2021-02-23 00:00:00 Completed [facility] SARS-COV-2 COVID-19 PFIZER VACCINE 2021-02-23 00:00:00 Completed [facility] SARS-COV-2 COVID-19 PFIZER VACCINE 2021-02-23 00:00:00 Completed [facility] SARS-COV-2 COVID-19 PFIZER VACCINE 2021-02-23 00:00:00 Completed [facility] SARS-COV-2 COVID-19 PFIZER VACCINE 2021-02-23 00:00:00 Completed [facility] SARS-COV-2 COVID-19 PFIZER VACCINE 2021-02-23 00:00:00 Completed [facility] SARS-COV-2 COVID-19 PFIZER VACCINE 2021-02-23 00:00:00 Completed [facility] SARS-COV-2 COVID-19 PFIZER VACCINE 2021-02-23 00:00:00 Completed [facility] SARS-COV-2 COVID-19 PFIZER VACCINE 2021-02-23 00:00:00 Completed [facility] SARS-COV-2 COVID-19 PFIZER VACCINE 2021-02-23 00:00:00 Completed [facility] SARS-COV-2 COVID-19 PFIZER VACCINE 2021-02-23 00:00:00 Completed [facility] SARS-COV-2 COVID-19 PFIZER VACCINE 2021-02-23 00:00:00 Completed [facility] SARS-COV-2 COVID-19 PFIZER VACCINE 2021-02-23 00:00:00 Completed [facility] SARS-COV-2 COVID-19 PFIZER VACCINE 2021-02-23 00:00:00 Completed [facility] SARS-COV-2 COVID-19 PFIZER VACCINE 2021-02-23 00:00:00 Completed [facility] SARS-COV-2 COVID-19 PFIZER VACCINE 2021-02-23 00:00:00 Completed [facility] SARS-COV-2 COVID-19 PFIZER VACCINE 2021-02-23 00:00:00 Completed [facility] SARS-COV-2 COVID-19 PFIZER VACCINE 2021-02-23 00:00:00 Completed [facility] SARS-COV-2 COVID-19 PFIZER VACCINE 2021-02-23 00:00:00 Completed [facility] SARS-COV-2 COVID-19 PFIZER VACCINE 2021-02-23 00:00:00 Completed [facility] SARS-COV-2 COVID-19 PFIZER VACCINE 2021-02-23 00:00:00 Completed [facility] SARS-COV-2 COVID-19 PFIZER VACCINE 2021-02-02 00:00:00 Completed [facility] SARS-COV-2 COVID-19 PFIZER VACCINE 2021-02-02 00:00:00 Completed [facility] SARS-COV-2 COVID-19 PFIZER VACCINE 2021-02-02 00:00:00 Completed [facility] SARS-COV-2 COVID-19 PFIZER VACCINE 2021-02-02 00:00:00 Completed [facility] SARS-COV-2 COVID-19 PFIZER VACCINE 2021-02-02 00:00:00 Completed [facility] SARS-COV-2 COVID-19 PFIZER VACCINE 2021-02-02 00:00:00 Completed [facility] SARS-COV-2 COVID-19 PFIZER VACCINE 2021-02-02 00:00:00 Completed [facility] SARS-COV-2 COVID-19 PFIZER VACCINE 2021-02-02 00:00:00 Completed [facility] SARS-COV-2 COVID-19 PFIZER VACCINE 2021-02-02 00:00:00 Completed [facility] SARS-COV-2 COVID-19 PFIZER VACCINE 2021-02-02 00:00:00 Completed [facility] SARS-COV-2 COVID-19 PFIZER VACCINE 2021-02-02 00:00:00 Completed [facility] SARS-COV-2 COVID-19 PFIZER VACCINE 2021-02-02 00:00:00 Completed [facility] SARS-COV-2 COVID-19 PFIZER VACCINE 2021-02-02 00:00:00 Completed [facility] SARS-COV-2 COVID-19 PFIZER VACCINE 2021-02-02 00:00:00 Completed [facility] SARS-COV-2 COVID-19 PFIZER VACCINE 2021-02-02 00:00:00 Completed [facility] SARS-COV-2 COVID-19 PFIZER VACCINE 2021-02-02 00:00:00 Completed [facility] SARS-COV-2 COVID-19 PFIZER VACCINE 2021-02-02 00:00:00 Completed [facility] SARS-COV-2 COVID-19 PFIZER VACCINE 2021-02-02 00:00:00 Completed [facility] SARS-COV-2 COVID-19 PFIZER VACCINE 2021-02-02 00:00:00 Completed [facility] SARS-COV-2 COVID-19 PFIZER VACCINE 2021-02-02 00:00:00 Completed [facility] SARS-COV-2 COVID-19 PFIZER VACCINE 2021-02-02 00:00:00 Completed [facility] SARS-COV-2 COVID-19 PFIZER VACCINE 2021-02-02 00:00:00 Completed [facility] SARS-COV-2 COVID-19 PFIZER VACCINE 2021-02-02 00:00:00 Completed [facility] SARS-COV-2 COVID-19 PFIZER VACCINE 2021-02-02 00:00:00 Completed [facility] SARS-COV-2 COVID-19 PFIZER VACCINE 2021-02-02 00:00:00 Completed [facility] SARS-COV-2 COVID-19 PFIZER VACCINE 2021-02-02 00:00:00 Completed [facility] SARS-COV-2 COVID-19 PFIZER VACCINE 2021-02-02 00:00:00 Completed [facility] SARS-COV-2 COVID-19 PFIZER VACCINE 2021-02-02 00:00:00 Completed [facility] SARS-COV-2 COVID-19 PFIZER VACCINE 2021-02-02 00:00:00 Completed [facility] SARS-COV-2 COVID-19 PFIZER VACCINE 2021-02-02 00:00:00 Completed [facility] SARS-COV-2 COVID-19 PFIZER VACCINE 2021-02-02 00:00:00 Completed [facility] SARS-COV-2 COVID-19 PFIZER VACCINE 2021-02-02 00:00:00 Completed [facility] SARS-COV-2 COVID-19 PFIZER VACCINE 2021-02-02 00:00:00 Completed [facility] SARS-COV-2 COVID-19 PFIZER VACCINE 2021-02-02 00:00:00 Completed [facility] SARS-COV-2 COVID-19 PFIZER VACCINE 2021-02-02 00:00:00 Completed [facility] SARS-COV-2 COVID-19 PFIZER VACCINE 2021-02-02 00:00:00 Completed [facility] SARS-COV-2 COVID-19 PFIZER VACCINE 2021-02-02 00:00:00 Completed [facility] SARS-COV-2 COVID-19 PFIZER VACCINE 2021-02-02 00:00:00 Completed [facility] SARS-COV-2 COVID-19 PFIZER VACCINE 2021-02-02 00:00:00 Completed [facility] SARS-COV-2 COVID-19 PFIZER VACCINE 2021-02-02 00:00:00 Completed [facility] SARS-COV-2 COVID-19 PFIZER VACCINE 2021-02-02 00:00:00 Completed [facility] SARS-COV-2 COVID-19 PFIZER VACCINE 2021-02-02 00:00:00 Completed [facility] SARS-COV-2 COVID-19 PFIZER VACCINE 2021-02-02 00:00:00 Completed [facility] Influenza Virus Vaccine Quad .5 mL IM 6+ MO 2020-08-27 00:00:00 Completed [facility] Influenza Virus Vaccine Quad .5 mL IM 6+ MO 2020-08-27 00:00:00 Completed [facility] Influenza Virus Vaccine Quad .5 mL IM 6+ MO 2020-08-27 00:00:00 Completed [facility] Influenza Virus Vaccine Quad .5 mL IM 6+ MO 2020-08-27 00:00:00 Completed [facility] Influenza Virus Vaccine Quad .5 mL IM 6+ MO 2020-08-27 00:00:00 Completed [facility] Influenza Virus Vaccine Quad .5 mL IM 6+ MO 2020-08-27 00:00:00 Completed [facility] Influenza Virus Vaccine Quad .5 mL IM 6+ MO 2020-08-27 00:00:00 Completed [facility] Influenza Virus Vaccine Quad .5 mL IM 6+ MO 2020-08-27 00:00:00 Completed [facility] Influenza Virus Vaccine Quad .5 mL IM 6+ MO 2020-08-27 00:00:00 Completed [facility] Influenza Virus Vaccine Quad .5 mL IM 6+ MO 2020-08-27 00:00:00 Completed [facility] Influenza Virus Vaccine Quad .5 mL IM 6+ MO 2020-08-27 00:00:00 Completed [facility] Influenza Virus Vaccine Quad .5 mL IM 6+ MO 2020-08-27 00:00:00 Completed [facility] Influenza Virus Vaccine Quad .5 mL IM 6+ MO 2020-08-27 00:00:00 Completed [facility] Influenza Virus Vaccine Quad .5 mL IM 6+ MO 2020-08-27 00:00:00 Completed [facility] Influenza Virus Vaccine Quad .5 mL IM 6+ MO 2020-08-27 00:00:00 Completed [facility] Influenza Virus Vaccine Quad .5 mL IM 6+ MO 2020-08-27 00:00:00 Completed [facility] Influenza Virus Vaccine Quad .5 mL IM 6+ MO 2020-08-27 00:00:00 Completed [facility] Influenza Virus Vaccine Quad .5 mL IM 6+ MO 2020-08-27 00:00:00 Completed [facility] Influenza Virus Vaccine Quad .5 mL IM 6+ MO 2020-08-27 00:00:00 Completed [facility] Influenza Virus Vaccine Quad .5 mL IM 6+ MO 2020-08-27 00:00:00 Completed [facility] Influenza Virus Vaccine Quad .5 mL IM 6+ MO 2020-08-27 00:00:00 Completed [facility] Influenza Virus Vaccine Quad .5 mL IM 6+ MO 2020-08-27 00:00:00 Completed [facility] Influenza Virus Vaccine Quad .5 mL IM 6+ MO 2020-08-27 00:00:00 Completed [facility] Influenza Virus Vaccine Quad .5 mL IM 6+ MO 2020-08-27 00:00:00 Completed [facility] Influenza Virus Vaccine Quad .5 mL IM 6+ MO 2020-08-27 00:00:00 Completed [facility] Influenza Virus Vaccine Quad .5 mL IM 6+ MO 2020-08-27 00:00:00 Completed [facility] Influenza Virus Vaccine Quad .5 mL IM 6+ MO 2020-08-27 00:00:00 Completed [facility] Influenza Virus Vaccine Quad .5 mL IM 6+ MO 2020-08-27 00:00:00 Completed [facility] Influenza Virus Vaccine Quad .5 mL IM 6+ MO 2020-08-27 00:00:00 Completed [facility] Influenza Virus Vaccine Quad .5 mL IM 6+ MO 2020-08-27 00:00:00 Completed [facility] Influenza Virus Vaccine Quad .5 mL IM 6+ MO 2020-08-27 00:00:00 Completed [facility] Influenza Virus Vaccine Quad .5 mL IM 6+ MO 2020-08-27 00:00:00 Completed [facility] Influenza Virus Vaccine Quad .5 mL IM 6+ MO 2020-08-27 00:00:00 Completed [facility] Influenza Virus Vaccine Quad .5 mL IM 6+ MO 2020-08-27 00:00:00 Completed [facility] Influenza Virus Vaccine Quad .5 mL IM 6+ MO 2020-08-27 00:00:00 Completed [facility] Influenza Virus Vaccine Quad .5 mL IM 6+ MO 2020-08-27 00:00:00 Completed [facility] Influenza Virus Vaccine Quad .5 mL IM 6+ MO 2020-08-27 00:00:00 Completed [facility] Influenza Virus Vaccine Quad .5 mL IM 6+ MO 2020-08-27 00:00:00 Completed [facility] Influenza Virus Vaccine Quad .5 mL IM 6+ MO 2020-08-27 00:00:00 Completed [facility] Influenza Virus Vaccine Quad .5 mL IM 6+ MO (FLUZONE/FLULAVAL/F LUARIX) 2020-08-27 00:00:00 Completed [facility] Influenza Virus Vaccine Quad .5 mL IM 6+ MO (FLUZONE/FLULAVAL/F LUARIX) 2020-08-27 00:00:00 Completed [facility] Influenza Virus Vaccine Quad .5 mL IM 6+ MO (FLUZONE/FLULAVAL/F LUARIX) 2020-08-27 00:00:00 Completed [facility] Influenza Virus Vaccine Quad .5 mL IM 6+ MO (FLUZONE/FLULAVAL/F LUARIX) 2020-08-27 00:00:00 Completed [facility] Influenza Virus Vaccine Quad .5 mL IM 6+ MO 2019-10-01 00:00:00 Completed [facility] Influenza Virus Vaccine Quad .5 mL IM 6+ MO 2019-10-01 00:00:00 Completed [facility] Influenza Virus Vaccine Quad .5 mL IM 6+ MO 2019-10-01 00:00:00 Completed [facility] Influenza Virus Vaccine Quad .5 mL IM 6+ MO 2019-10-01 00:00:00 Completed [facility] Influenza Virus Vaccine Quad .5 mL IM 6+ MO 2019-10-01 00:00:00 Completed [facility] Influenza Virus Vaccine Quad .5 mL IM 6+ MO 2019-10-01 00:00:00 Completed [facility] Influenza Virus Vaccine Quad .5 mL IM 6+ MO 2019-10-01 00:00:00 Completed [facility] Influenza Virus Vaccine Quad .5 mL IM 6+ MO 2019-10-01 00:00:00 Completed [facility] Influenza Virus Vaccine Quad .5 mL IM 6+ MO 2019-10-01 00:00:00 Completed [facility] Influenza Virus Vaccine Quad .5 mL IM 6+ MO 2019-10-01 00:00:00 Completed [facility] Influenza Virus Vaccine Quad .5 mL IM 6+ MO 2019-10-01 00:00:00 Completed [facility] Influenza Virus Vaccine Quad .5 mL IM 6+ MO 2019-10-01 00:00:00 Completed [facility] Influenza Virus Vaccine Quad .5 mL IM 6+ MO 2019-10-01 00:00:00 Completed [facility] Influenza Virus Vaccine Quad .5 mL IM 6+ MO 2019-10-01 00:00:00 Completed [facility] Influenza Virus Vaccine Quad .5 mL IM 6+ MO 2019-10-01 00:00:00 Completed [facility] Influenza Virus Vaccine Quad .5 mL IM 6+ MO 2019-10-01 00:00:00 Completed [facility] Influenza Virus Vaccine Quad .5 mL IM 6+ MO 2019-10-01 00:00:00 Completed [facility] Influenza Virus Vaccine Quad .5 mL IM 6+ MO 2019-10-01 00:00:00 Completed [facility] Influenza Virus Vaccine Quad .5 mL IM 6+ MO 2019-10-01 00:00:00 Completed [facility] Influenza Virus Vaccine Quad .5 mL IM 6+ MO 2019-10-01 00:00:00 Completed [facility] Influenza Virus Vaccine Quad .5 mL IM 6+ MO 2019-10-01 00:00:00 Completed [facility] Influenza Virus Vaccine Quad .5 mL IM 6+ MO 2019-10-01 00:00:00 Completed [facility] Influenza Virus Vaccine Quad .5 mL IM 6+ MO 2019-10-01 00:00:00 Completed [facility] Influenza Virus Vaccine Quad .5 mL IM 6+ MO 2019-10-01 00:00:00 Completed [facility] Influenza Virus Vaccine Quad .5 mL IM 6+ MO 2019-10-01 00:00:00 Completed [facility] Influenza Virus Vaccine Quad .5 mL IM 6+ MO 2019-10-01 00:00:00 Completed [facility] Influenza Virus Vaccine Quad .5 mL IM 6+ MO 2019-10-01 00:00:00 Completed [facility] Influenza Virus Vaccine Quad .5 mL IM 6+ MO 2019-10-01 00:00:00 Completed [facility] Influenza Virus Vaccine Quad .5 mL IM 6+ MO 2019-10-01 00:00:00 Completed [facility] Influenza Virus Vaccine Quad .5 mL IM 6+ MO 2019-10-01 00:00:00 Completed [facility] Influenza Virus Vaccine Quad .5 mL IM 6+ MO 2019-10-01 00:00:00 Completed [facility] Influenza Virus Vaccine Quad .5 mL IM 6+ MO 2019-10-01 00:00:00 Completed [facility] Influenza Virus Vaccine Quad .5 mL IM 6+ MO 2019-10-01 00:00:00 Completed [facility] Influenza Virus Vaccine Quad .5 mL IM 6+ MO 2019-10-01 00:00:00 Completed [facility] Influenza Virus Vaccine Quad .5 mL IM 6+ MO 2019-10-01 00:00:00 Completed [facility] Influenza Virus Vaccine Quad .5 mL IM 6+ MO 2019-10-01 00:00:00 Completed [facility] Influenza Virus Vaccine Quad .5 mL IM 6+ MO 2019-10-01 00:00:00 Completed [facility] Influenza Virus Vaccine Quad .5 mL IM 6+ MO 2019-10-01 00:00:00 Completed [facility] Influenza Virus Vaccine Quad .5 mL IM 6+ MO 2019-10-01 00:00:00 Completed [facility] Influenza Virus Vaccine Quad .5 mL IM 6+ MO (FLUZONE/FLULAVAL/F LUARIX) 2019-10-01 00:00:00 Completed [facility] Influenza Virus Vaccine Quad .5 mL IM 6+ MO (FLUZONE/FLULAVAL/F LUARIX) 2019-10-01 00:00:00 Completed [facility] Influenza Virus Vaccine Quad .5 mL IM 6+ MO (FLUZONE/FLULAVAL/F LUARIX) 2019-10-01 00:00:00 Completed [facility] Influenza Virus Vaccine Quad .5 mL IM 6+ MO (FLUZONE/FLULAVAL/F LUARIX) 2019-10-01 00:00:00 Completed [facility] Afluria single dose Afluria single dose 2019-08-05 16:46:00 Completed [facility] Afluria single dose Afluria single dose 2019-08-05 16:46:00 Completed [facility] Afluria single dose Afluria single dose 2019-08-05 16:46:00 Completed [facility] Afluria single dose Afluria single dose 2019-08-05 16:46:00 Completed [facility] Afluria single dose Afluria single dose 2019-08-05 16:46:00 Completed [facility] Afluria single dose Afluria single dose 2019-08-05 16:46:00 Completed [facility] Afluria single dose Afluria single dose 2019-08-05 16:46:00 Completed [facility] Afluria single dose Afluria single dose 2019-08-05 16:46:00 Completed [facility] Afluria single dose Afluria single dose 2019-08-05 16:46:00 Completed [facility] Influenza Virus Vaccine Quad IM 3+ YRS 2019-08-05 00:00:00 Completed [facility] Influenza Virus Vaccine Quad IM 3+ YRS 2019-08-05 00:00:00 Completed [facility] Influenza Virus Vaccine Quad IM 3+ YRS 2019-08-05 00:00:00 Completed [facility] Influenza Virus Vaccine Quad IM 3+ YRS 2019-08-05 00:00:00 Completed [facility] Influenza Virus Vaccine Quad IM 3+ YRS 2019-08-05 00:00:00 Completed [facility] Influenza Virus Vaccine Quad IM 3+ YRS 2019-08-05 00:00:00 Completed [facility] Influenza Virus Vaccine Quad IM 3+ YRS 2019-08-05 00:00:00 Completed [facility] Influenza Virus Vaccine Quad IM 3+ YRS 2019-08-05 00:00:00 Completed [facility] Influenza Virus Vaccine Quad IM 3+ YRS 2019-08-05 00:00:00 Completed [facility] Influenza Virus Vaccine Quad IM 3+ YRS 2019-08-05 00:00:00 Completed [facility] Influenza Virus Vaccine Quad IM 3+ YRS 2019-08-05 00:00:00 Completed [facility] Influenza Virus Vaccine Quad IM 3+ YRS 2019-08-05 00:00:00 Completed [facility] Influenza Virus Vaccine Quad IM 3+ YRS 2019-08-05 00:00:00 Completed [facility] Influenza Virus Vaccine Quad IM 3+ YRS 2019-08-05 00:00:00 Completed [facility] Influenza Virus Vaccine Quad IM 3+ YRS 2019-08-05 00:00:00 Completed [facility] Influenza Virus Vaccine Quad IM 3+ YRS 2019-08-05 00:00:00 Completed [facility] Influenza Virus Vaccine Quad IM 3+ YRS 2019-08-05 00:00:00 Completed [facility] Influenza Virus Vaccine Quad IM 3+ YRS 2019-08-05 00:00:00 Completed [facility] Influenza Virus Vaccine Quad IM 3+ YRS 2019-08-05 00:00:00 Completed [facility] Influenza Virus Vaccine Quad IM 3+ YRS 2019-08-05 00:00:00 Completed [facility] Influenza Virus Vaccine Quad IM 3+ YRS 2019-08-05 00:00:00 Completed [facility] Influenza Virus Vaccine Quad IM 3+ YRS 2019-08-05 00:00:00 Completed [facility] Influenza Virus Vaccine Quad IM 3+ YRS 2019-08-05 00:00:00 Completed [facility] Afluria single dose Afluria single dose 2019-08-05 00:00:00 Completed [facility] Flucelvax - single dose syringe Flucelvax - single dose syringe 2018-10-26 10:32:00 Completed [facility] Flucelvax - single dose syringe Flucelvax - single dose syringe 2018-10-26 10:32:00 Completed [facility] Flucelvax - single dose syringe Flucelvax - single dose syringe 2018-10-26 10:32:00 Completed [facility] Flucelvax - single dose syringe Flucelvax - single dose syringe 2018-10-26 10:32:00 Completed [facility] Flucelvax - single dose syringe Flucelvax - single dose syringe 2018-10-26 10:32:00 Completed [facility] Flucelvax - single dose syringe Flucelvax - single dose syringe 2018-10-26 10:32:00 Completed [facility] Flucelvax - single dose syringe Flucelvax - single dose syringe 2018-10-26 10:32:00 Completed [facility] Flucelvax - single dose syringe Flucelvax - single dose syringe 2018-10-26 10:32:00 Completed [facility] Flucelvax - single dose syringe Flucelvax - single dose syringe 2018-10-26 10:32:00 Completed [facility] Flucelvax - single dose syringe Flucelvax - single dose syringe 2018-10-26 00:00:00 Completed [facility] Influenza Virus Vaccine Quad .5 mL IM 6+ MO (FLUZONE/FLULAVAL/F LUARIX) Unknown Completed [facility] Influenza Virus Vaccine Quad .5 mL IM 6+ MO (FLUZONE/FLULAVAL/F LUARIX) Unknown Completed [facility] SARS-COV-2 COVID-19 PFIZER VACCINE Unknown Completed [facility] SARS-COV-2 COVID-19 PFIZER VACCINE Unknown Completed [facility] Influenza Virus Vaccine Quad IM, Preserv and ABX Free 6 MO-64 YRS (FLUCELVAX) Unknown Completed [facility] Influenza Virus Vaccine Quad IM 3+ YRS Unknown Completed [facility] SARS-COV-2 COVID-19 PFIZER VACCINE Unknown Completed [facility] Influenza Virus Vaccine Quad IM, Preserv and ABX Free 6 MO-64 YRS (FLUCELVAX) Unknown Completed [facility] HPV9 Unknown Completed [facility] HPV9 Unknown Completed [facility] Influenza Virus Vaccine Quad .5 mL IM 6+ MO (FLUZONE/FLULAVAL/F LUARIX) Unknown Completed [facility] Influenza Virus Vaccine Quad .5 mL IM 6+ MO (FLUZONE/FLULAVAL/F LUARIX) Unknown Completed [facility] SARS-COV-2 COVID-19 PFIZER VACCINE Unknown Completed [facility] SARS-COV-2 COVID-19 PFIZER VACCINE Unknown Completed [facility] Influenza Virus Vaccine Quad IM, Preserv and ABX Free 6 MO-64 YRS (FLUCELVAX) Unknown Completed [facility] Influenza Virus Vaccine Quad IM 3+ YRS Unknown Completed [facility] SARS-COV-2 COVID-19 PFIZER VACCINE Unknown Completed [facility] Influenza Virus Vaccine Quad .5 mL IM 6+ MO (FLUZONE/FLULAVAL/F LUARIX) Unknown Completed [facility] Influenza Virus Vaccine Quad .5 mL IM 6+ MO (FLUZONE/FLULAVAL/F LUARIX) Unknown Completed [facility] SARS-COV-2 COVID-19 PFIZER VACCINE Unknown Completed [facility] SARS-COV-2 COVID-19 PFIZER VACCINE Unknown Completed [facility] Influenza Virus Vaccine Quad IM, Preserv and ABX Free 6 MO-64 YRS (FLUCELVAX) Unknown Completed [facility] Influenza Virus Vaccine Quad IM 3+ YRS Unknown Completed [facility] SARS-COV-2 COVID-19 PFIZER VACCINE Unknown Completed [facility] Influenza Virus Vaccine Quad .5 mL IM 6+ MO (FLUZONE/FLULAVAL/F LUARIX) Unknown Completed [facility] Influenza Virus Vaccine Quad .5 mL IM 6+ MO (FLUZONE/FLULAVAL/F LUARIX) Unknown Completed [facility] SARS-COV-2 COVID-19 PFIZER VACCINE Unknown Completed [facility] SARS-COV-2 COVID-19 PFIZER VACCINE Unknown Completed [facility] Influenza Virus Vaccine Quad IM, Preserv and ABX Free 6 MO-64 YRS (FLUCELVAX) Unknown Completed [facility] Influenza Virus Vaccine Quad IM 3+ YRS Unknown Completed [facility] Influenza Virus Vaccine Quad .5 mL IM 6+ MO (FLUZONE/FLULAVAL/F LUARIX) Unknown Completed [facility] Influenza Virus Vaccine Quad .5 mL IM 6+ MO (FLUZONE/FLULAVAL/F LUARIX) Unknown Completed [facility] SARS-COV-2 COVID-19 PFIZER VACCINE Unknown Completed [facility] SARS-COV-2 COVID-19 PFIZER VACCINE Unknown Completed [facility] Influenza Virus Vaccine Quad IM, Preserv and ABX Free 6 MO-64 YRS (FLUCELVAX) Unknown Completed [facility] Influenza Virus Vaccine Quad IM 3+ YRS Unknown Completed [facility] Influenza Virus Vaccine Quad .5 mL IM 6+ MO (FLUZONE/FLULAVAL/F LUARIX) Unknown Completed [facility] Influenza Virus Vaccine Quad .5 mL IM 6+ MO (FLUZONE/FLULAVAL/F LUARIX) Unknown Completed [facility] SARS-COV-2 COVID-19 PFIZER VACCINE Unknown Completed [facility] SARS-COV-2 COVID-19 PFIZER VACCINE Unknown Completed [facility] Influenza Virus Vaccine Quad IM 3+ YRS Unknown Completed [facility] Influenza Virus Vaccine Quad .5 mL IM 6+ MO (FLUZONE/FLULAVAL/F LUARIX) Unknown Completed [facility] Influenza Virus Vaccine Quad .5 mL IM 6+ MO (FLUZONE/FLULAVAL/F LUARIX) Unknown Completed [facility] SARS-COV-2 COVID-19 PFIZER VACCINE Unknown Completed [facility] SARS-COV-2 COVID-19 PFIZER VACCINE Unknown Completed [facility] Influenza Virus Vaccine Quad IM 3+ YRS Unknown Completed [facility] Influenza Virus Vaccine Quad .5 mL IM 6+ MO (FLUZONE/FLULAVAL/F LUARIX) Unknown Completed [facility] Influenza Virus Vaccine Quad .5 mL IM 6+ MO (FLUZONE/FLULAVAL/F LUARIX) Unknown Completed [facility] SARS-COV-2 COVID-19 PFIZER VACCINE Unknown Completed [facility] SARS-COV-2 COVID-19 PFIZER VACCINE Unknown Completed [facility] Influenza Virus Vaccine Quad IM 3+ YRS Unknown Completed [facility] Influenza Virus Vaccine Quad .5 mL IM 6+ MO (FLUZONE/FLULAVAL/F LUARIX) Unknown Completed [facility] Influenza Virus Vaccine Quad .5 mL IM 6+ MO (FLUZONE/FLULAVAL/F LUARIX) Unknown Completed [facility] SARS-COV-2 COVID-19 PFIZER VACCINE Unknown Completed [facility] SARS-COV-2 COVID-19 PFIZER VACCINE Unknown Completed [facility] Influenza Virus Vaccine Quad IM 3+ YRS Unknown Completed [facility] Influenza Virus Vaccine Quad .5 mL IM 6+ MO (FLUZONE/FLULAVAL/F LUARIX) Unknown Completed [facility] Influenza Virus Vaccine Quad .5 mL IM 6+ MO (FLUZONE/FLULAVAL/F LUARIX) Unknown Completed [facility] SARS-COV-2 COVID-19 PFIZER VACCINE Unknown Completed [facility] SARS-COV-2 COVID-19 PFIZER VACCINE Unknown Completed [facility] Influenza Virus Vaccine Quad IM 3+ YRS Unknown Completed [facility] Influenza Virus Vaccine Quad .5 mL IM 6+ MO (FLUZONE/FLULAVAL/F LUARIX) Unknown Completed [facility] Influenza Virus Vaccine Quad .5 mL IM 6+ MO (FLUZONE/FLULAVAL/F LUARIX) Unknown Completed [facility] Influenza Virus Vaccine Quad IM 3+ YRS Unknown Completed [facility] Influenza Virus Vaccine Quad .5 mL IM 6+ MO (FLUZONE/FLULAVAL/F LUARIX) Unknown Completed [facility] Influenza Virus Vaccine Quad .5 mL IM 6+ MO (FLUZONE/FLULAVAL/F LUARIX) Unknown Completed [facility] Influenza Virus Vaccine Quad IM 3+ YRS Unknown Completed [facility] Influenza Virus Vaccine Quad .5 mL IM 6+ MO (FLUZONE/FLULAVAL/F LUARIX) Unknown Completed [facility] Influenza Virus Vaccine Quad .5 mL IM 6+ MO (FLUZONE/FLULAVAL/F LUARIX) Unknown Completed [facility] Influenza Virus Vaccine Quad IM 3+ YRS Unknown Completed [facility] Influenza Virus Vaccine Quad .5 mL IM 6+ MO (FLUZONE/FLULAVAL/F LUARIX) Unknown Completed [facility] Influenza Virus Vaccine Quad .5 mL IM 6+ MO (FLUZONE/FLULAVAL/F LUARIX) Unknown Completed [facility] SARS-COV-2 COVID-19 PFIZER VACCINE Unknown Completed [facility] SARS-COV-2 COVID-19 PFIZER VACCINE Unknown Completed [facility] Influenza Virus Vaccine Quad IM, Preserv and ABX Free 6 MO-64 YRS (FLUCELVAX) Unknown Completed [facility] Influenza Virus Vaccine Quad IM 3+ YRS Unknown Completed [facility] SARS-COV-2 COVID-19 PFIZER VACCINE Unknown Completed [facility] Influenza Virus Vaccine Quad IM, Preserv and ABX Free 6 MO-64 YRS (FLUCELVAX) Unknown Completed [facility] HPV9 Unknown Completed [facility] HPV9 Unknown Completed [facility] Influenza Virus Vaccine Quad .5 mL IM 6+ MO (FLUZONE/FLULAVAL/F LUARIX) Unknown Completed [facility] Influenza Virus Vaccine Quad .5 mL IM 6+ MO (FLUZONE/FLULAVAL/F LUARIX) Unknown Completed [facility] SARS-COV-2 COVID-19 PFIZER VACCINE Unknown Completed [facility] SARS-COV-2 COVID-19 PFIZER VACCINE Unknown Completed [facility] Influenza Virus Vaccine Quad IM, Preserv and ABX Free 6 MO-64 YRS (FLUCELVAX) Unknown Completed [facility] Influenza Virus Vaccine Quad IM 3+ YRS Unknown Completed [facility] SARS-COV-2 COVID-19 PFIZER VACCINE Unknown Completed [facility] Influenza Virus Vaccine Quad IM, Preserv and ABX Free 6 MO-64 YRS (FLUCELVAX) Unknown Completed [facility] HPV9 Unknown Completed [facility] HPV9 Unknown Completed [facility] Influenza Virus Vaccine Quad .5 mL IM 6+ MO (FLUZONE/FLULAVAL/F LUARIX) Unknown Completed [facility] Influenza Virus Vaccine Quad .5 mL IM 6+ MO (FLUZONE/FLULAVAL/F LUARIX) Unknown Completed [facility] SARS-COV-2 COVID-19 PFIZER VACCINE Unknown Completed [facility] SARS-COV-2 COVID-19 PFIZER VACCINE Unknown Completed [facility] Influenza Virus Vaccine Quad IM, Preserv and ABX Free 6 MO-64 YRS (FLUCELVAX) Unknown Completed [facility] Influenza Virus Vaccine Quad IM 3+ YRS Unknown Completed [facility] SARS-COV-2 COVID-19 PFIZER VACCINE Unknown Completed [facility] Influenza Virus Vaccine Quad IM, Preserv and ABX Free 6 MO-64 YRS (FLUCELVAX) Unknown Completed [facility] HPV9 Unknown Completed [facility] HPV9 Unknown Completed [facility] Influenza Virus Vaccine Quad .5 mL IM 6+ MO (FLUZONE/FLULAVAL/F LUARIX) Unknown Completed [facility] Influenza Virus Vaccine Quad .5 mL IM 6+ MO (FLUZONE/FLULAVAL/F LUARIX) Unknown Completed [facility] SARS-COV-2 COVID-19 PFIZER VACCINE Unknown Completed [facility] SARS-COV-2 COVID-19 PFIZER VACCINE Unknown Completed [facility] Influenza Virus Vaccine Quad IM, Preserv and ABX Free 6 MO-64 YRS (FLUCELVAX) Unknown Completed [facility] Influenza Virus Vaccine Quad IM 3+ YRS Unknown Completed [facility] SARS-COV-2 COVID-19 PFIZER VACCINE Unknown Completed [facility] Influenza Virus Vaccine Quad IM, Preserv and ABX Free 6 MO-64 YRS (FLUCELVAX) Unknown Completed [facility] HPV9 Unknown Completed [facility] HPV9 Unknown Completed [facility] Influenza Virus Vaccine Quad .5 mL IM 6+ MO (FLUZONE/FLULAVAL/F LUARIX) Unknown Completed [facility] Influenza Virus Vaccine Quad .5 mL IM 6+ MO (FLUZONE/FLULAVAL/F LUARIX) Unknown Completed [facility] SARS-COV-2 COVID-19 PFIZER VACCINE Unknown Completed [facility] SARS-COV-2 COVID-19 PFIZER VACCINE Unknown Completed [facility] Influenza Virus Vaccine Quad IM, Preserv and ABX Free 6 MO-64 YRS (FLUCELVAX) Unknown Completed [facility] Influenza Virus Vaccine Quad IM 3+ YRS Unknown Completed [facility] SARS-COV-2 COVID-19 PFIZER VACCINE Unknown Completed [facility] Influenza Virus Vaccine Quad IM, Preserv and ABX Free 6 MO-64 YRS (FLUCELVAX) Unknown Completed [facility] HPV9 Unknown Completed [facility] HPV9 Unknown Completed [facility] HPV9 Unknown Completed [facility] Influenza Virus Vaccine Quad .5 mL IM 6+ MO (FLUZONE/FLULAVAL/F LUARIX) Unknown Completed [facility] Influenza Virus Vaccine Quad .5 mL IM 6+ MO (FLUZONE/FLULAVAL/F LUARIX) Unknown Completed [facility] SARS-COV-2 COVID-19 PFIZER VACCINE Unknown Completed [facility] SARS-COV-2 COVID-19 PFIZER VACCINE Unknown Completed [facility] Influenza Virus Vaccine Quad IM, Preserv and ABX Free 6 MO-64 YRS (FLUCELVAX) Unknown Completed [facility] Influenza Virus Vaccine Quad IM 3+ YRS Unknown Completed [facility] SARS-COV-2 COVID-19 PFIZER VACCINE Unknown Completed [facility] Influenza Virus Vaccine Quad IM, Preserv and ABX Free 6 MO-64 YRS (FLUCELVAX) Unknown Completed [facility] HPV9 Unknown Completed [facility] HPV9 Unknown Completed [facility] HPV9 Unknown Completed [facility] Influenza Virus Vaccine Quad .5 mL IM 6+ MO (FLUZONE/FLULAVAL/F LUARIX) Unknown Completed [facility] Influenza Virus Vaccine Quad .5 mL IM 6+ MO (FLUZONE/FLULAVAL/F LUARIX) Unknown Completed [facility] SARS-COV-2 COVID-19 PFIZER VACCINE Unknown Completed [facility] SARS-COV-2 COVID-19 PFIZER VACCINE Unknown Completed [facility] Influenza Virus Vaccine Quad IM, Preserv and ABX Free 6 MO-64 YRS (FLUCELVAX) Unknown Completed [facility] Influenza Virus Vaccine Quad IM 3+ YRS Unknown Completed [facility] SARS-COV-2 COVID-19 PFIZER VACCINE Unknown Completed [facility] Influenza Virus Vaccine Quad IM, Preserv and ABX Free 6 MO-64 YRS (FLUCELVAX) Unknown Completed [facility] HPV9 Unknown Completed [facility] HPV9 Unknown Completed [facility] HPV9 Unknown Completed [facility] Influenza Virus Vaccine Quad .5 mL IM 6+ MO (FLUZONE/FLULAVAL/F LUARIX) Unknown Completed [facility] Influenza Virus Vaccine Quad .5 mL IM 6+ MO (FLUZONE/FLULAVAL/F LUARIX) Unknown Completed [facility] SARS-COV-2 COVID-19 PFIZER VACCINE Unknown Completed [facility] SARS-COV-2 COVID-19 PFIZER VACCINE Unknown Completed [facility] Influenza Virus Vaccine Quad IM, Preserv and ABX Free 6 MO-64 YRS (FLUCELVAX) Unknown Completed [facility] Influenza Virus Vaccine Quad IM 3+ YRS Unknown Completed [facility] SARS-COV-2 COVID-19 PFIZER VACCINE Unknown Completed [facility] Influenza Virus Vaccine Quad IM, Preserv and ABX Free 6 MO-64 YRS (FLUCELVAX) Unknown Completed [facility] HPV9 Unknown Completed [facility] HPV9 Unknown Completed [facility] HPV9 Unknown Completed [facility] Influenza Virus Vaccine Quad .5 mL IM 6+ MO (FLUZONE/FLULAVAL/F LUARIX) Unknown Completed [facility] Influenza Virus Vaccine Quad .5 mL IM 6+ MO (FLUZONE/FLULAVAL/F LUARIX) Unknown Completed [facility] SARS-COV-2 COVID-19 PFIZER VACCINE Unknown Completed [facility] SARS-COV-2 COVID-19 PFIZER VACCINE Unknown Completed [facility] Influenza Virus Vaccine Quad IM, Preserv and ABX Free 6 MO-64 YRS (FLUCELVAX) Unknown Completed [facility] Influenza Virus Vaccine Quad IM 3+ YRS Unknown Completed [facility] SARS-COV-2 COVID-19 PFIZER VACCINE Unknown Completed [facility] Influenza Virus Vaccine Quad IM, Preserv and ABX Free 6 MO-64 YRS (FLUCELVAX) Unknown Completed [facility] HPV9 Unknown Completed [facility] HPV9 Unknown Completed [facility] HPV9 Unknown Completed [facility] Influenza Virus Vaccine Quad .5 mL IM 6+ MO (FLUZONE/FLULAVAL/F LUARIX) Unknown Completed [facility] Influenza Virus Vaccine Quad .5 mL IM 6+ MO (FLUZONE/FLULAVAL/F LUARIX) Unknown Completed [facility] SARS-COV-2 COVID-19 PFIZER VACCINE Unknown Completed [facility] SARS-COV-2 COVID-19 PFIZER VACCINE Unknown Completed [facility] Influenza Virus Vaccine Quad IM, Preserv and ABX Free 6 MO-64 YRS (FLUCELVAX) Unknown Completed [facility] Influenza Virus Vaccine Quad IM 3+ YRS Unknown Completed [facility] SARS-COV-2 COVID-19 PFIZER VACCINE Unknown Completed [facility] Influenza Virus Vaccine Quad IM, Preserv and ABX Free 6 MO-64 YRS (FLUCELVAX) Unknown Completed [facility] HPV9 Unknown Completed [facility] HPV9 Unknown Completed [facility] HPV9 Unknown Completed [facility] Influenza Virus Vaccine Quad .5 mL IM 6+ MO (FLUZONE/FLULAVAL/F LUARIX) Unknown Completed [facility] Influenza Virus Vaccine Quad .5 mL IM 6+ MO (FLUZONE/FLULAVAL/F LUARIX) Unknown Completed [facility] SARS-COV-2 COVID-19 PFIZER VACCINE Unknown Completed [facility] SARS-COV-2 COVID-19 PFIZER VACCINE Unknown Completed [facility] Influenza Virus Vaccine Quad IM, Preserv and ABX Free 6 MO-64 YRS (FLUCELVAX) Unknown Completed [facility] Influenza Virus Vaccine Quad IM 3+ YRS Unknown Completed [facility] SARS-COV-2 COVID-19 PFIZER VACCINE Unknown Completed [facility] Influenza Virus Vaccine Quad IM, Preserv and ABX Free 6 MO-64 YRS (FLUCELVAX) Unknown Completed [facility] HPV9 Unknown Completed [facility] HPV9 Unknown Completed [facility] HPV9 Unknown Completed [facility] Influenza Virus Vaccine Quad IM, Preserv and ABX Free 6 MO-64 YRS (FLUCELVAX) Unknown Completed [facility] Influenza Virus Vaccine Quad .5 mL IM 6+ MO (FLUZONE/FLULAVAL/F LUARIX) Unknown Completed [facility] Influenza Virus Vaccine Quad .5 mL IM 6+ MO (FLUZONE/FLULAVAL/F LUARIX) Unknown Completed [facility] SARS-COV-2 COVID-19 PFIZER VACCINE Unknown Completed [facility] SARS-COV-2 COVID-19 PFIZER VACCINE Unknown Completed [facility] Influenza Virus Vaccine Quad IM, Preserv and ABX Free 6 MO-64 YRS (FLUCELVAX) Unknown Completed [facility] Influenza Virus Vaccine Quad IM 3+ YRS Unknown Completed [facility] SARS-COV-2 COVID-19 PFIZER VACCINE Unknown Completed [facility] Influenza Virus Vaccine Quad IM, Preserv and ABX Free 6 MO-64 YRS (FLUCELVAX) Unknown Completed [facility] HPV9 Unknown Completed [facility] HPV9 Unknown Completed [facility] HPV9 Unknown Completed [facility] Influenza Virus Vaccine Quad IM, Preserv and ABX Free 6 MO-64 YRS (FLUCELVAX) Unknown Completed [facility] Influenza Virus Vaccine Quad .5 mL IM 6+ MO (FLUZONE/FLULAVAL/F LUARIX) Unknown Completed [facility] Influenza Virus Vaccine Quad .5 mL IM 6+ MO (FLUZONE/FLULAVAL/F LUARIX) Unknown Completed [facility] SARS-COV-2 COVID-19 PFIZER VACCINE Unknown Completed [facility] SARS-COV-2 COVID-19 PFIZER VACCINE Unknown Completed [facility] Influenza Virus Vaccine Quad IM, Preserv and ABX Free 6 MO-64 YRS (FLUCELVAX) Unknown Completed [facility] Influenza Virus Vaccine Quad IM 3+ YRS Unknown Completed [facility] SARS-COV-2 COVID-19 PFIZER VACCINE Unknown Completed [facility] Influenza Virus Vaccine Quad IM, Preserv and ABX Free 6 MO-64 YRS (FLUCELVAX) Unknown Completed [facility] HPV9 Unknown Completed [facility] HPV9 Unknown Completed [facility] HPV9 Unknown Completed [facility] Influenza Virus Vaccine Quad IM, Preserv and ABX Free 6 MO-64 YRS (FLUCELVAX) Unknown Completed [facility] Influenza Virus Vaccine Quad .5 mL IM 6+ MO (FLUZONE/FLULAVAL/F LUARIX) Unknown Completed [facility] Influenza Virus Vaccine Quad .5 mL IM 6+ MO (FLUZONE/FLULAVAL/F LUARIX) Unknown Completed [facility] SARS-COV-2 COVID-19 PFIZER VACCINE Unknown Completed [facility] SARS-COV-2 COVID-19 PFIZER VACCINE Unknown Completed [facility] Influenza Virus Vaccine Quad IM, Preserv and ABX Free 6 MO-64 YRS (FLUCELVAX) Unknown Completed [facility] Influenza Virus Vaccine Quad IM 3+ YRS Unknown Completed [facility] SARS-COV-2 COVID-19 PFIZER VACCINE Unknown Completed [facility] Influenza Virus Vaccine Quad IM, Preserv and ABX Free 6 MO-64 YRS (FLUCELVAX) Unknown Completed [facility] HPV9 Unknown Completed [facility] HPV9 Unknown Completed [facility] HPV9 Unknown Completed [facility] Influenza Virus Vaccine Quad IM, Preserv and ABX Free 6 MO-64 YRS (FLUCELVAX) Unknown Completed [facility] Influenza Virus Vaccine Quad .5 mL IM 6+ MO (FLUZONE/FLULAVAL/F LUARIX) Unknown Completed [facility] Influenza Virus Vaccine Quad .5 mL IM 6+ MO (FLUZONE/FLULAVAL/F LUARIX) Unknown Completed [facility] SARS-COV-2 COVID-19 PFIZER VACCINE Unknown Completed [facility] SARS-COV-2 COVID-19 PFIZER VACCINE Unknown Completed [facility] Influenza Virus Vaccine Quad IM, Preserv and ABX Free 6 MO-64 YRS (FLUCELVAX) Unknown Completed [facility] Influenza Virus Vaccine Quad IM 3+ YRS Unknown Completed [facility] SARS-COV-2 COVID-19 PFIZER VACCINE Unknown Completed [facility] Influenza Virus Vaccine Quad IM, Preserv and ABX Free 6 MO-64 YRS (FLUCELVAX) Unknown Completed [facility] HPV9 Unknown Completed [facility] HPV9 Unknown Completed [facility] HPV9 Unknown Completed [facility] Influenza Virus Vaccine Quad IM, Preserv and ABX Free 6 MO-64 YRS (FLUCELVAX) Unknown Completed [facility] Influenza Virus Vaccine Quad .5 mL IM 6+ MO (FLUZONE/FLULAVAL/F LUARIX) Unknown Completed [facility] Influenza Virus Vaccine Quad .5 mL IM 6+ MO (FLUZONE/FLULAVAL/F LUARIX) Unknown Completed [facility] SARS-COV-2 COVID-19 PFIZER VACCINE Unknown Completed [facility] SARS-COV-2 COVID-19 PFIZER VACCINE Unknown Completed [facility] Influenza Virus Vaccine Quad IM, Preserv and ABX Free 6 MO-64 YRS (FLUCELVAX) Unknown Completed [facility] Influenza Virus Vaccine Quad IM 3+ YRS Unknown Completed [facility] SARS-COV-2 COVID-19 PFIZER VACCINE Unknown Completed [facility] Influenza Virus Vaccine Quad IM, Preserv and ABX Free 6 MO-64 YRS (FLUCELVAX) Unknown Completed [facility] HPV9 Unknown Completed [facility] HPV9 Unknown Completed [facility] HPV9 Unknown Completed [facility] Influenza Virus Vaccine Quad IM, Preserv and ABX Free 6 MO-64 YRS (FLUCELVAX) Unknown Completed [facility] Influenza Virus Vaccine Quad .5 mL IM 6+ MO (FLUZONE/FLULAVAL/F LUARIX) Unknown Completed [facility] Influenza Virus Vaccine Quad .5 mL IM 6+ MO (FLUZONE/FLULAVAL/F LUARIX) Unknown Completed [facility] SARS-COV-2 COVID-19 PFIZER VACCINE Unknown Completed [facility] SARS-COV-2 COVID-19 PFIZER VACCINE Unknown Completed [facility] Influenza Virus Vaccine Quad IM, Preserv and ABX Free 6 MO-64 YRS (FLUCELVAX) Unknown Completed [facility] Influenza Virus Vaccine Quad IM 3+ YRS Unknown Completed [facility] SARS-COV-2 COVID-19 PFIZER VACCINE Unknown Completed [facility] Influenza Virus Vaccine Quad IM, Preserv and ABX Free 6 MO-64 YRS (FLUCELVAX) Unknown Completed [facility] HPV9 Unknown Completed [facility] HPV9 Unknown Completed [facility] HPV9 Unknown Completed [facility] Influenza Virus Vaccine Quad IM, Preserv and ABX Free 6 MO-64 YRS (FLUCELVAX) Unknown Completed [facility] Influenza Virus Vaccine Quad .5 mL IM 6+ MO (FLUZONE/FLULAVAL/F LUARIX) Unknown Completed [facility] Influenza Virus Vaccine Quad .5 mL IM 6+ MO (FLUZONE/FLULAVAL/F LUARIX) Unknown Completed [facility] SARS-COV-2 COVID-19 PFIZER VACCINE Unknown Completed [facility] SARS-COV-2 COVID-19 PFIZER VACCINE Unknown Completed [facility] Influenza Virus Vaccine Quad IM, Preserv and ABX Free 6 MO-64 YRS (FLUCELVAX) Unknown Completed [facility] Influenza Virus Vaccine Quad IM 3+ YRS Unknown Completed [facility] SARS-COV-2 COVID-19 PFIZER VACCINE Unknown Completed [facility] Influenza Virus Vaccine Quad IM, Preserv and ABX Free 6 MO-64 YRS (FLUCELVAX) Unknown Completed [facility] HPV9 Unknown Completed [facility] HPV9 Unknown Completed [facility] HPV9 Unknown Completed [facility] Influenza Virus Vaccine Quad IM, Preserv and ABX Free 6 MO-64 YRS (FLUCELVAX) Unknown Completed [facility] Influenza Virus Vaccine Quad .5 mL IM 6+ MO (FLUZONE/FLULAVAL/F LUARIX) Unknown Completed [facility] Influenza Virus Vaccine Quad .5 mL IM 6+ MO (FLUZONE/FLULAVAL/F LUARIX) Unknown Completed [facility] SARS-COV-2 COVID-19 PFIZER VACCINE Unknown Completed [facility] SARS-COV-2 COVID-19 PFIZER VACCINE Unknown Completed [facility] Influenza Virus Vaccine Quad IM, Preserv and ABX Free 6 MO-64 YRS (FLUCELVAX) Unknown Completed [facility] Influenza Virus Vaccine Quad IM 3+ YRS Unknown Completed [facility] SARS-COV-2 COVID-19 PFIZER VACCINE Unknown Completed [facility] Influenza Virus Vaccine Quad IM, Preserv and ABX Free 6 MO-64 YRS (FLUCELVAX) Unknown Completed [facility] HPV9 Unknown Completed [facility] HPV9 Unknown Completed [facility] HPV9 Unknown Completed [facility] Influenza Virus Vaccine Quad IM, Preserv and ABX Free 6 MO-64 YRS (FLUCELVAX) Unknown Completed [facility] Influenza Virus Vaccine Quad .5 mL IM 6+ MO (FLUZONE/FLULAVAL/F LUARIX) Unknown Completed [facility] Influenza Virus Vaccine Quad .5 mL IM 6+ MO (FLUZONE/FLULAVAL/F LUARIX) Unknown Completed [facility] SARS-COV-2 COVID-19 PFIZER VACCINE Unknown Completed [facility] SARS-COV-2 COVID-19 PFIZER VACCINE Unknown Completed [facility] Influenza Virus Vaccine Quad IM, Preserv and ABX Free 6 MO-64 YRS (FLUCELVAX) Unknown Completed [facility] Influenza Virus Vaccine Quad IM 3+ YRS Unknown Completed [facility] SARS-COV-2 COVID-19 PFIZER VACCINE Unknown Completed [facility] Influenza Virus Vaccine Quad IM, Preserv and ABX Free 6 MO-64 YRS (FLUCELVAX) Unknown Completed [facility] HPV9 Unknown Completed [facility] HPV9 Unknown Completed [facility] HPV9 Unknown Completed [facility] Influenza Virus Vaccine Quad IM, Preserv and ABX Free 6 MO-64 YRS (FLUCELVAX) Unknown Completed [facility] Influenza Virus Vaccine Quad .5 mL IM 6+ MO (FLUZONE/FLULAVAL/F LUARIX) Unknown Completed [facility] Influenza Virus Vaccine Quad .5 mL IM 6+ MO (FLUZONE/FLULAVAL/F LUARIX) Unknown Completed [facility] SARS-COV-2 COVID-19 PFIZER VACCINE Unknown Completed [facility] SARS-COV-2 COVID-19 PFIZER VACCINE Unknown Completed [facility] Influenza Virus Vaccine Quad IM, Preserv and ABX Free 6 MO-64 YRS (FLUCELVAX) Unknown Completed [facility] Influenza Virus Vaccine Quad IM 3+ YRS Unknown Completed [facility] SARS-COV-2 COVID-19 PFIZER VACCINE Unknown Completed [facility] Influenza Virus Vaccine Quad IM, Preserv and ABX Free 6 MO-64 YRS (FLUCELVAX) Unknown Completed [facility] HPV9 Unknown Completed [facility] HPV9 Unknown Completed [facility] HPV9 Unknown Completed [facility] Influenza Virus Vaccine Quad IM, Preserv and ABX Free 6 MO-64 YRS (FLUCELVAX) Unknown Completed [facility] Influenza Virus Vaccine Quad .5 mL IM 6+ MO (FLUZONE/FLULAVAL/F LUARIX) Unknown Completed [facility] Influenza Virus Vaccine Quad .5 mL IM 6+ MO (FLUZONE/FLULAVAL/F LUARIX) Unknown Completed [facility] SARS-COV-2 COVID-19 PFIZER VACCINE Unknown Completed [facility] SARS-COV-2 COVID-19 PFIZER VACCINE Unknown Completed [facility] Influenza Virus Vaccine Quad IM, Preserv and ABX Free 6 MO-64 YRS (FLUCELVAX) Unknown Completed [facility] Influenza Virus Vaccine Quad IM 3+ YRS Unknown Completed [facility] SARS-COV-2 COVID-19 PFIZER VACCINE Unknown Completed [facility] Influenza Virus Vaccine Quad IM, Preserv and ABX Free 6 MO-64 YRS (FLUCELVAX) Unknown Completed [facility] HPV9 Unknown Completed [facility] HPV9 Unknown Completed [facility] HPV9 Unknown Completed [facility] Influenza Virus Vaccine Quad IM, Preserv and ABX Free 6 MO-64 YRS (FLUCELVAX) Unknown Completed [facility] Influenza Virus Vaccine Quad .5 mL IM 6+ MO (FLUZONE/FLULAVAL/F LUARIX) Unknown Completed [facility] Influenza Virus Vaccine Quad .5 mL IM 6+ MO (FLUZONE/FLULAVAL/F LUARIX) Unknown Completed [facility] SARS-COV-2 COVID-19 PFIZER VACCINE Unknown Completed [facility] SARS-COV-2 COVID-19 PFIZER VACCINE Unknown Completed [facility] Influenza Virus Vaccine Quad IM, Preserv and ABX Free 6 MO-64 YRS (FLUCELVAX) Unknown Completed [facility] Influenza Virus Vaccine Quad IM 3+ YRS Unknown Completed [facility] SARS-COV-2 COVID-19 PFIZER VACCINE Unknown Completed [facility] Influenza Virus Vaccine Quad IM, Preserv and ABX Free 6 MO-64 YRS (FLUCELVAX) Unknown Completed [facility] HPV9 Unknown Completed [facility] HPV9 Unknown Completed [facility] HPV9 Unknown Completed [facility] Influenza Virus Vaccine Quad IM, Preserv and ABX Free 6 MO-64 YRS (FLUCELVAX) Unknown Completed [facility] Influenza Virus Vaccine Quad .5 mL IM 6+ MO (FLUZONE/FLULAVAL/F LUARIX) Unknown Completed [facility] Influenza Virus Vaccine Quad .5 mL IM 6+ MO (FLUZONE/FLULAVAL/F LUARIX) Unknown Completed [facility] SARS-COV-2 COVID-19 PFIZER VACCINE Unknown Completed [facility] SARS-COV-2 COVID-19 PFIZER VACCINE Unknown Completed [facility] Influenza Virus Vaccine Quad IM, Preserv and ABX Free 6 MO-64 YRS (FLUCELVAX) Unknown Completed [facility] Influenza Virus Vaccine Quad IM 3+ YRS Unknown Completed [facility] SARS-COV-2 COVID-19 PFIZER VACCINE Unknown Completed [facility] Influenza Virus Vaccine Quad IM, Preserv and ABX Free 6 MO-64 YRS (FLUCELVAX) Unknown Completed [facility] HPV9 Unknown Completed [facility] HPV9 Unknown Completed [facility] HPV9 Unknown Completed [facility] Influenza Virus Vaccine Quad IM, Preserv and ABX Free 6 MO-64 YRS (FLUCELVAX) Unknown Completed [facility] Influenza Virus Vaccine Quad .5 mL IM 6+ MO (FLUZONE/FLULAVAL/F LUARIX) Unknown Completed [facility] Influenza Virus Vaccine Quad .5 mL IM 6+ MO (FLUZONE/FLULAVAL/F LUARIX) Unknown Completed [facility] SARS-COV-2 COVID-19 PFIZER VACCINE Unknown Completed [facility] SARS-COV-2 COVID-19 PFIZER VACCINE Unknown Completed [facility] Influenza Virus Vaccine Quad IM, Preserv and ABX Free 6 MO-64 YRS (FLUCELVAX) Unknown Completed [facility] Influenza Virus Vaccine Quad IM 3+ YRS Unknown Completed [facility] SARS-COV-2 COVID-19 PFIZER VACCINE Unknown Completed [facility] Influenza Virus Vaccine Quad IM, Preserv and ABX Free 6 MO-64 YRS (FLUCELVAX) Unknown Completed [facility] HPV9 Unknown Completed [facility] HPV9 Unknown Completed [facility] HPV9 Unknown Completed [facility] Influenza Virus Vaccine Quad IM, Preserv and ABX Free 6 MO-64 YRS (FLUCELVAX) Unknown Completed [facility] Influenza Virus Vaccine Quad .5 mL IM 6+ MO (FLUZONE/FLULAVAL/F LUARIX) Unknown Completed [facility] Influenza Virus Vaccine Quad .5 mL IM 6+ MO (FLUZONE/FLULAVAL/F LUARIX) Unknown Completed [facility] SARS-COV-2 COVID-19 PFIZER VACCINE Unknown Completed [facility] SARS-COV-2 COVID-19 PFIZER VACCINE Unknown Completed [facility] Influenza Virus Vaccine Quad IM, Preserv and ABX Free 6 MO-64 YRS (FLUCELVAX) Unknown Completed [facility] Influenza Virus Vaccine Quad IM 3+ YRS Unknown Completed [facility] SARS-COV-2 COVID-19 PFIZER VACCINE Unknown Completed [facility] Influenza Virus Vaccine Quad IM, Preserv and ABX Free 6 MO-64 YRS (FLUCELVAX) Unknown Completed [facility] HPV9 Unknown Completed [facility] HPV9 Unknown Completed [facility] HPV9 Unknown Completed [facility] Influenza Virus Vaccine Quad IM, Preserv and ABX Free 6 MO-64 YRS (FLUCELVAX) Unknown Completed [facility] Influenza Virus Vaccine Quad .5 mL IM 6+ MO (FLUZONE/FLULAVAL/F LUARIX) Unknown Completed [facility] Influenza Virus Vaccine Quad .5 mL IM 6+ MO (FLUZONE/FLULAVAL/F LUARIX) Unknown Completed [facility] SARS-COV-2 COVID-19 PFIZER VACCINE Unknown Completed [facility] SARS-COV-2 COVID-19 PFIZER VACCINE Unknown Completed [facility] Influenza Virus Vaccine Quad IM, Preserv and ABX Free 6 MO-64 YRS (FLUCELVAX) Unknown Completed [facility] Influenza Virus Vaccine Quad IM 3+ YRS Unknown Completed [facility] SARS-COV-2 COVID-19 PFIZER VACCINE Unknown Completed [facility] Influenza Virus Vaccine Quad IM, Preserv and ABX Free 6 MO-64 YRS (FLUCELVAX) Unknown Completed [facility] HPV9 Unknown Completed [facility] HPV9 Unknown Completed [facility] HPV9 Unknown Completed [facility] Influenza Virus Vaccine Quad IM, Preserv and ABX Free 6 MO-64 YRS (FLUCELVAX) Unknown Completed [facility] Influenza Virus Vaccine Quad .5 mL IM 6+ MO (FLUZONE/FLULAVAL/F LUARIX) Unknown Completed [facility] Influenza Virus Vaccine Quad .5 mL IM 6+ MO (FLUZONE/FLULAVAL/F LUARIX) Unknown Completed [facility] SARS-COV-2 COVID-19 PFIZER VACCINE Unknown Completed [facility] SARS-COV-2 COVID-19 PFIZER VACCINE Unknown Completed [facility] Influenza Virus Vaccine Quad IM, Preserv and ABX Free 6 MO-64 YRS (FLUCELVAX) Unknown Completed [facility] Influenza Virus Vaccine Quad IM 3+ YRS Unknown Completed [facility] SARS-COV-2 COVID-19 PFIZER VACCINE Unknown Completed [facility] Influenza Virus Vaccine Quad IM, Preserv and ABX Free 6 MO-64 YRS (FLUCELVAX) Unknown Completed [facility] HPV9 Unknown Completed [facility] HPV9 Unknown Completed [facility] HPV9 Unknown Completed [facility] Influenza Virus Vaccine Quad IM, Preserv and ABX Free 6 MO-64 YRS (FLUCELVAX) Unknown Completed [facility] Influenza Virus Vaccine Quad .5 mL IM 6+ MO (FLUZONE/FLULAVAL/F LUARIX) Unknown Completed [facility] Influenza Virus Vaccine Quad .5 mL IM 6+ MO (FLUZONE/FLULAVAL/F LUARIX) Unknown Completed [facility] SARS-COV-2 COVID-19 PFIZER VACCINE Unknown Completed [facility] SARS-COV-2 COVID-19 PFIZER VACCINE Unknown Completed [facility] Influenza Virus Vaccine Quad IM, Preserv and ABX Free 6 MO-64 YRS (FLUCELVAX) Unknown Completed [facility] Influenza Virus Vaccine Quad IM 3+ YRS Unknown Completed [facility] SARS-COV-2 COVID-19 PFIZER VACCINE Unknown Completed [facility] Influenza Virus Vaccine Quad IM, Preserv and ABX Free 6 MO-64 YRS (FLUCELVAX) Unknown Completed [facility] HPV9 Unknown Completed [facility] HPV9 Unknown Completed [facility] HPV9 Unknown Completed [facility] Influenza Virus Vaccine Quad IM, Preserv and ABX Free 6 MO-64 YRS (FLUCELVAX) Unknown Completed [facility] Influenza Virus Vaccine Quad .5 mL IM 6+ MO (FLUZONE/FLULAVAL/F LUARIX) Unknown Completed [facility] Influenza Virus Vaccine Quad .5 mL IM 6+ MO (FLUZONE/FLULAVAL/F LUARIX) Unknown Completed [facility] SARS-COV-2 COVID-19 PFIZER VACCINE Unknown Completed [facility] SARS-COV-2 COVID-19 PFIZER VACCINE Unknown Completed [facility] Influenza Virus Vaccine Quad IM, Preserv and ABX Free 6 MO-64 YRS (FLUCELVAX) Unknown Completed [facility] Influenza Virus Vaccine Quad IM 3+ YRS Unknown Completed [facility] SARS-COV-2 COVID-19 PFIZER VACCINE Unknown Completed [facility] Influenza Virus Vaccine Quad IM, Preserv and ABX Free 6 MO-64 YRS (FLUCELVAX) Unknown Completed [facility] HPV9 Unknown Completed [facility] HPV9 Unknown Completed [facility] HPV9 Unknown Completed [facility] Influenza Virus Vaccine Quad IM, Preserv and ABX Free 6 MO-64 YRS (FLUCELVAX) Unknown Completed [facility] Influenza Virus Vaccine Quad .5 mL IM 6+ MO (FLUZONE/FLULAVAL/F LUARIX) Unknown Completed [facility] Influenza Virus Vaccine Quad .5 mL IM 6+ MO (FLUZONE/FLULAVAL/F LUARIX) Unknown Completed [facility] SARS-COV-2 COVID-19 PFIZER VACCINE Unknown Completed [facility] SARS-COV-2 COVID-19 PFIZER VACCINE Unknown Completed [facility] Influenza Virus Vaccine Quad IM, Preserv and ABX Free 6 MO-64 YRS (FLUCELVAX) Unknown Completed [facility] Influenza Virus Vaccine Quad IM 3+ YRS Unknown Completed [facility] SARS-COV-2 COVID-19 PFIZER VACCINE Unknown Completed [facility] Influenza Virus Vaccine Quad IM, Preserv and ABX Free 6 MO-64 YRS (FLUCELVAX) Unknown Completed [facility] HPV9 Unknown Completed [facility] HPV9 Unknown Completed [facility] HPV9 Unknown Completed [facility] Influenza Virus Vaccine Quad IM, Preserv and ABX Free 6 MO-64 YRS (FLUCELVAX) Unknown Completed [facility] Influenza Virus Vaccine Quad .5 mL IM 6+ MO (FLUZONE/FLULAVAL/F LUARIX) Unknown Completed [facility] Influenza Virus Vaccine Quad .5 mL IM 6+ MO (FLUZONE/FLULAVAL/F LUARIX) Unknown Completed [facility] SARS-COV-2 COVID-19 PFIZER VACCINE Unknown Completed [facility] SARS-COV-2 COVID-19 PFIZER VACCINE Unknown Completed [facility] Influenza Virus Vaccine Quad IM, Preserv and ABX Free 6 MO-64 YRS (FLUCELVAX) Unknown Completed [facility] Influenza Virus Vaccine Quad IM 3+ YRS Unknown Completed [facility] SARS-COV-2 COVID-19 PFIZER VACCINE Unknown Completed [facility] Influenza Virus Vaccine Quad IM, Preserv and ABX Free 6 MO-64 YRS (FLUCELVAX) Unknown Completed [facility] HPV9 Unknown Completed [facility] HPV9 Unknown Completed [facility] HPV9 Unknown Completed [facility] Influenza Virus Vaccine Quad IM, Preserv and ABX Free 6 MO-64 YRS (FLUCELVAX) Unknown Completed [facility] Influenza Virus Vaccine Quad .5 mL IM 6+ MO (FLUZONE/FLULAVAL/F LUARIX) Unknown Completed [facility] Influenza Virus Vaccine Quad .5 mL IM 6+ MO (FLUZONE/FLULAVAL/F LUARIX) Unknown Completed [facility] SARS-COV-2 COVID-19 PFIZER VACCINE Unknown Completed [facility] SARS-COV-2 COVID-19 PFIZER VACCINE Unknown Completed [facility] Influenza Virus Vaccine Quad IM, Preserv and ABX Free 6 MO-64 YRS (FLUCELVAX) Unknown Completed [facility] Influenza Virus Vaccine Quad IM 3+ YRS Unknown Completed [facility] SARS-COV-2 COVID-19 PFIZER VACCINE Unknown Completed [facility] Influenza Virus Vaccine Quad IM, Preserv and ABX Free 6 MO-64 YRS (FLUCELVAX) Unknown Completed [facility] HPV9 Unknown Completed [facility] HPV9 Unknown Completed [facility] HPV9 Unknown Completed [facility] Influenza Virus Vaccine Quad IM, Preserv and ABX Free 6 MO-64 YRS (FLUCELVAX) Unknown Completed [facility] Influenza Virus Vaccine Quad .5 mL IM 6+ MO (FLUZONE/FLULAVAL/F LUARIX) Unknown Completed [facility] Influenza Virus Vaccine Quad .5 mL IM 6+ MO (FLUZONE/FLULAVAL/F LUARIX) Unknown Completed [facility] SARS-COV-2 COVID-19 PFIZER VACCINE Unknown Completed [facility] SARS-COV-2 COVID-19 PFIZER VACCINE Unknown Completed [facility] Influenza Virus Vaccine Quad IM, Preserv and ABX Free 6 MO-64 YRS (FLUCELVAX) Unknown Completed [facility] Influenza Virus Vaccine Quad IM 3+ YRS Unknown Completed [facility] SARS-COV-2 COVID-19 PFIZER VACCINE Unknown Completed [facility] Influenza Virus Vaccine Quad IM, Preserv and ABX Free 6 MO-64 YRS (FLUCELVAX) Unknown Completed [facility] HPV9 Unknown Completed [facility] HPV9 Unknown Completed [facility] HPV9 Unknown Completed [facility] Influenza Virus Vaccine Quad IM, Preserv and ABX Free 6 MO-64 YRS (FLUCELVAX) Unknown Completed [facility] Influenza Virus Vaccine Quad .5 mL IM 6+ MO (FLUZONE/FLULAVAL/F LUARIX) Unknown Completed [facility] Influenza Virus Vaccine Quad .5 mL IM 6+ MO (FLUZONE/FLULAVAL/F LUARIX) Unknown Completed [facility] SARS-COV-2 COVID-19 PFIZER VACCINE Unknown Completed [facility] SARS-COV-2 COVID-19 PFIZER VACCINE Unknown Completed [facility] Influenza Virus Vaccine Quad IM, Preserv and ABX Free 6 MO-64 YRS (FLUCELVAX) Unknown Completed [facility] Influenza Virus Vaccine Quad IM 3+ YRS Unknown Completed [facility] SARS-COV-2 COVID-19 PFIZER VACCINE Unknown Completed [facility] Influenza Virus Vaccine Quad IM, Preserv and ABX Free 6 MO-64 YRS (FLUCELVAX) Unknown Completed [facility] HPV9 Unknown Completed [facility] HPV9 Unknown Completed [facility] HPV9 Unknown Completed [facility] Influenza Virus Vaccine Quad IM, Preserv and ABX Free 6 MO-64 YRS (FLUCELVAX) Unknown Completed [facility] Influenza Virus Vaccine Quad .5 mL IM 6+ MO (FLUZONE/FLULAVAL/F LUARIX) Unknown Completed [facility] Influenza Virus Vaccine Quad .5 mL IM 6+ MO (FLUZONE/FLULAVAL/F LUARIX) Unknown Completed [facility] SARS-COV-2 COVID-19 PFIZER VACCINE Unknown Completed [facility] SARS-COV-2 COVID-19 PFIZER VACCINE Unknown Completed [facility] Influenza Virus Vaccine Quad IM, Preserv and ABX Free 6 MO-64 YRS (FLUCELVAX) Unknown Completed [facility] Influenza Virus Vaccine Quad IM 3+ YRS Unknown Completed [facility] SARS-COV-2 COVID-19 PFIZER VACCINE Unknown Completed [facility] Influenza Virus Vaccine Quad IM, Preserv and ABX Free 6 MO-64 YRS (FLUCELVAX) Unknown Completed [facility] HPV9 Unknown Completed [facility] HPV9 Unknown Completed [facility] HPV9 Unknown Completed [facility] Influenza Virus Vaccine Quad IM, Preserv and ABX Free 6 MO-64 YRS (FLUCELVAX) Unknown Completed [facility] Influenza Virus Vaccine Quad .5 mL IM 6+ MO (FLUZONE/FLULAVAL/F LUARIX) Unknown Completed [facility] Influenza Virus Vaccine Quad .5 mL IM 6+ MO (FLUZONE/FLULAVAL/F LUARIX) Unknown Completed [facility] SARS-COV-2 COVID-19 PFIZER VACCINE Unknown Completed [facility] SARS-COV-2 COVID-19 PFIZER VACCINE Unknown Completed [facility] Influenza Virus Vaccine Quad IM, Preserv and ABX Free 6 MO-64 YRS (FLUCELVAX) Unknown Completed [facility] Influenza Virus Vaccine Quad IM 3+ YRS Unknown Completed [facility] SARS-COV-2 COVID-19 PFIZER VACCINE Unknown Completed [facility] Influenza Virus Vaccine Quad IM, Preserv and ABX Free 6 MO-64 YRS (FLUCELVAX) Unknown Completed [facility] HPV9 Unknown Completed [facility] HPV9 Unknown Completed [facility] HPV9 Unknown Completed [facility] Influenza Virus Vaccine Quad IM, Preserv and ABX Free 6 MO-64 YRS (FLUCELVAX) Unknown Completed [facility] Influenza Virus Vaccine Quad .5 mL IM 6+ MO (FLUZONE/FLULAVAL/F LUARIX) Unknown Completed [facility] Influenza Virus Vaccine Quad .5 mL IM 6+ MO (FLUZONE/FLULAVAL/F LUARIX) Unknown Completed [facility] SARS-COV-2 COVID-19 PFIZER VACCINE Unknown Completed [facility] SARS-COV-2 COVID-19 PFIZER VACCINE Unknown Completed [facility] Influenza Virus Vaccine Quad IM, Preserv and ABX Free 6 MO-64 YRS (FLUCELVAX) Unknown Completed [facility] Influenza Virus Vaccine Quad IM 3+ YRS Unknown Completed [facility] SARS-COV-2 COVID-19 PFIZER VACCINE Unknown Completed [facility] Influenza Virus Vaccine Quad IM, Preserv and ABX Free 6 MO-64 YRS (FLUCELVAX) Unknown Completed [facility] HPV9 Unknown Completed [facility] HPV9 Unknown Completed [facility] HPV9 Unknown Completed [facility] Influenza Virus Vaccine Quad IM, Preserv and ABX Free 6 MO-64 YRS (FLUCELVAX) Unknown Completed [facility] Influenza Virus Vaccine Quad .5 mL IM 6+ MO (FLUZONE/FLULAVAL/F LUARIX) Unknown Completed [facility] Influenza Virus Vaccine Quad .5 mL IM 6+ MO (FLUZONE/FLULAVAL/F LUARIX) Unknown Completed [facility] SARS-COV-2 COVID-19 PFIZER VACCINE Unknown Completed [facility] SARS-COV-2 COVID-19 PFIZER VACCINE Unknown Completed [facility] Influenza Virus Vaccine Quad IM, Preserv and ABX Free 6 MO-64 YRS (FLUCELVAX) Unknown Completed [facility] Influenza Virus Vaccine Quad IM 3+ YRS Unknown Completed [facility] SARS-COV-2 COVID-19 PFIZER VACCINE Unknown Completed [facility] Influenza Virus Vaccine Quad IM, Preserv and ABX Free 6 MO-64 YRS (FLUCELVAX) Unknown Completed [facility] HPV9 Unknown Completed [facility] HPV9 Unknown Completed [facility] HPV9 Unknown Completed [facility] Influenza Virus Vaccine Quad IM, Preserv and ABX Free 6 MO-64 YRS (FLUCELVAX) Unknown Completed [facility] Influenza Virus Vaccine Quad .5 mL IM 6+ MO (FLUZONE/FLULAVAL/F LUARIX) Unknown Completed [facility] Influenza Virus Vaccine Quad .5 mL IM 6+ MO (FLUZONE/FLULAVAL/F LUARIX) [facility] [facility] PFIZER VACCINE Unknown Completed [facility] SARS-COV-2 COVID-19 PFIZER VACCINE Unknown Completed [facility] Influenza Virus Vaccine Quad IM, Preserv and ABX Free 6 MO-64 YRS (FLUCELVAX) Unknown Completed [facility] Influenza Virus Vaccine Quad IM 3+ YRS Unknown Completed [facility] SARS-COV-2 COVID-19 PFIZER VACCINE Unknown Completed [facility] Influenza Virus Vaccine Quad IM, Preserv and ABX Free 6 MO-64 YRS (FLUCELVAX) Unknown Completed [facility] HPV9 Unknown Completed [facility] HPV9 Unknown Completed [facility] HPV9 Unknown Completed [facility] Influenza Virus Vaccine Quad IM, Preserv and ABX Free 6 MO-64 YRS (FLUCELVAX) Unknown Completed [facility] Influenza Virus Vaccine Quad .5 mL IM 6+ MO (FLUZONE/FLULAVAL/F LUARIX) Unknown Completed [facility] Influenza Virus Vaccine Quad .5 mL IM 6+ MO (FLUZONE/FLULAVAL/F LUARIX) Unknown Completed [facility] SARS-COV-2 COVID-19 PFIZER VACCINE Unknown Completed [facility] SARS-COV-2 COVID-19 PFIZER VACCINE Unknown Completed [facility] Influenza Virus Vaccine Quad IM, Preserv and ABX Free 6 MO-64 YRS (FLUCELVAX) Unknown Completed [facility] Influenza Virus Vaccine Quad IM 3+ YRS Unknown Completed [facility] SARS-COV-2 COVID-19 PFIZER VACCINE Unknown Completed [facility] Influenza Virus Vaccine Quad IM, Preserv and ABX Free 6 MO-64 YRS (FLUCELVAX) Unknown Completed [facility] HPV9 Unknown Completed [facility] HPV9 Unknown Completed [facility] HPV9 Unknown Completed [facility] Influenza Virus Vaccine Quad IM, Preserv and ABX Free 6 MO-64 YRS (FLUCELVAX) Unknown Completed [facility] Influenza Virus Vaccine Quad .5 mL IM 6+ MO (FLUZONE/FLULAVAL/F LUARIX) Unknown Completed [facility] Influenza Virus Vaccine Quad .5 mL IM 6+ MO (FLUZONE/FLULAVAL/F LUARIX) Unknown Completed [facility] SARS-COV-2 COVID-19 PFIZER VACCINE Unknown Completed [facility] SARS-COV-2 COVID-19 PFIZER VACCINE Unknown Completed [facility] Influenza Virus Vaccine Quad IM, Preserv and ABX Free 6 MO-64 YRS (FLUCELVAX) Unknown Completed [facility] Influenza Virus Vaccine Quad IM 3+ YRS Unknown Completed [facility] SARS-COV-2 COVID-19 PFIZER VACCINE Unknown Completed [facility] Influenza Virus Vaccine Quad IM, Preserv and ABX Free 6 MO-64 YRS (FLUCELVAX) Unknown Completed [facility] HPV9 Unknown Completed [facility] HPV9 Unknown Completed [facility] HPV9 Unknown Completed [facility] Influenza Virus Vaccine Quad IM, Preserv and ABX Free 6 MO-64 YRS (FLUCELVAX) Unknown Completed [facility] Influenza Virus Vaccine Quad .5 mL IM 6+ MO (FLUZONE/FLULAVAL/F LUARIX) Unknown Completed [facility] Influenza Virus Vaccine Quad .5 mL IM 6+ MO (FLUZONE/FLULAVAL/F LUARIX) Unknown Completed [facility] SARS-COV-2 COVID-19 PFIZER VACCINE Unknown Completed [facility] SARS-COV-2 COVID-19 PFIZER VACCINE Unknown Completed [facility] Influenza Virus Vaccine Quad IM, Preserv and ABX Free 6 MO-64 YRS (FLUCELVAX) Unknown Completed [facility] Influenza Virus Vaccine Quad IM 3+ YRS Unknown Completed [facility] SARS-COV-2 COVID-19 PFIZER VACCINE Unknown Completed [facility] Influenza Virus Vaccine Quad IM, Preserv and ABX Free 6 MO-64 YRS (FLUCELVAX) Unknown Completed [facility] HPV9 Unknown Completed [facility] HPV9 Unknown Completed [facility] HPV9 Unknown Completed [facility] Influenza Virus Vaccine Quad IM, Preserv and ABX Free 6 MO-64 YRS (FLUCELVAX) Unknown Completed [facility] Influenza Virus Vaccine Quad .5 mL IM 6+ MO (FLUZONE/FLULAVAL/F LUARIX) Unknown Completed [facility] Influenza Virus Vaccine Quad .5 mL IM 6+ MO (FLUZONE/FLULAVAL/F LUARIX) Unknown Completed [facility] SARS-COV-2 COVID-19 PFIZER VACCINE Unknown Completed [facility] SARS-COV-2 COVID-19 PFIZER VACCINE Unknown Completed [facility] Influenza Virus Vaccine Quad IM, Preserv and ABX Free 6 MO-64 YRS (FLUCELVAX) Unknown Completed [facility] Influenza Virus Vaccine Quad IM 3+ YRS Unknown Completed [facility] SARS-COV-2 COVID-19 PFIZER VACCINE Unknown Completed [facility] Influenza Virus Vaccine Quad IM, Preserv and ABX Free 6 MO-64 YRS (FLUCELVAX) Unknown Completed [facility] HPV9 Unknown Completed [facility] HPV9 Unknown Completed [facility] HPV9 Unknown Completed [facility] Influenza Virus Vaccine Quad IM, Preserv and ABX Free 6 MO-64 YRS (FLUCELVAX) Unknown Completed [facility] Influenza Virus Vaccine Quad .5 mL IM 6+ MO (FLUZONE/FLULAVAL/F LUARIX) Unknown Completed [facility] Influenza Virus Vaccine Quad .5 mL IM 6+ MO (FLUZONE/FLULAVAL/F LUARIX) Unknown Completed [facility] SARS-COV-2 COVID-19 PFIZER VACCINE Unknown Completed [facility] SARS-COV-2 COVID-19 PFIZER VACCINE Unknown Completed [facility] Influenza Virus Vaccine Quad IM, Preserv and ABX Free 6 MO-64 YRS (FLUCELVAX) Unknown Completed [facility] Influenza Virus Vaccine Quad IM 3+ YRS Unknown Completed [facility] SARS-COV-2 COVID-19 PFIZER VACCINE Unknown Completed [facility] Influenza Virus Vaccine Quad IM, Preserv and ABX Free 6 MO-64 YRS (FLUCELVAX) Unknown Completed [facility] HPV9 Unknown Completed [facility] HPV9 Unknown Completed [facility] HPV9 Unknown Completed [facility] Influenza Virus Vaccine Quad IM, Preserv and ABX Free 6 MO-64 YRS (FLUCELVAX) Unknown Completed [facility] Influenza Virus Vaccine Quad .5 mL IM 6+ MO (FLUZONE/FLULAVAL/F LUARIX) Unknown Completed [facility] Influenza Virus Vaccine Quad .5 mL IM 6+ MO (FLUZONE/FLULAVAL/F LUARIX) Unknown Completed [facility] SARS-COV-2 COVID-19 PFIZER VACCINE Unknown Completed [facility] SARS-COV-2 COVID-19 PFIZER VACCINE Unknown Completed [facility] Influenza Virus Vaccine Quad IM, Preserv and ABX Free 6 MO-64 YRS (FLUCELVAX) Unknown Completed [facility] Influenza Virus Vaccine Quad IM 3+ YRS Unknown Completed [facility] SARS-COV-2 COVID-19 PFIZER VACCINE Unknown Completed [facility] Influenza Virus Vaccine Quad IM, Preserv and ABX Free 6 MO-64 YRS (FLUCELVAX) Unknown Completed [facility] HPV9 Unknown Completed [facility] HPV9 Unknown Completed [facility] HPV9 Unknown Completed [facility] Influenza Virus Vaccine Quad IM, Preserv and ABX Free 6 MO-64 YRS (FLUCELVAX) Unknown Completed [facility] Influenza Virus Vaccine Quad .5 mL IM 6+ MO (FLUZONE/FLULAVAL/F LUARIX) Unknown Completed [facility] Influenza Virus Vaccine Quad .5 mL IM 6+ MO (FLUZONE/FLULAVAL/F LUARIX) Unknown Completed [facility] SARS-COV-2 COVID-19 PFIZER VACCINE Unknown Completed [facility] SARS-COV-2 COVID-19 PFIZER VACCINE Unknown Completed [facility] Influenza Virus Vaccine Quad IM, Preserv and ABX Free 6 MO-64 YRS (FLUCELVAX) Unknown Completed [facility] Influenza Virus Vaccine Quad IM 3+ YRS Unknown Completed [facility] SARS-COV-2 COVID-19 PFIZER VACCINE Unknown Completed [facility] Influenza Virus Vaccine Quad IM, Preserv and ABX Free 6 MO-64 YRS (FLUCELVAX) Unknown Completed [facility] HPV9 Unknown Completed [facility] HPV9 Unknown Completed [facility] HPV9 Unknown Completed [facility] Influenza Virus Vaccine Quad IM, Preserv and ABX Free 6 MO-64 YRS (FLUCELVAX) Unknown Completed [facility] Influenza Virus Vaccine Quad .5 mL IM 6+ MO (FLUZONE/FLULAVAL/F LUARIX) Unknown Completed [facility] Influenza Virus Vaccine Quad .5 mL IM 6+ MO (FLUZONE/FLULAVAL/F LUARIX) Unknown Completed [facility] SARS-COV-2 COVID-19 PFIZER VACCINE Unknown Completed [facility] SARS-COV-2 COVID-19 PFIZER VACCINE Unknown Completed [facility] Influenza Virus Vaccine Quad IM, Preserv and ABX Free 6 MO-64 YRS (FLUCELVAX) Unknown Completed [facility] Influenza Virus Vaccine Quad IM 3+ YRS Unknown Completed [facility] SARS-COV-2 COVID-19 PFIZER VACCINE Unknown Completed [facility] Influenza Virus Vaccine Quad IM, Preserv and ABX Free 6 MO-64 YRS (FLUCELVAX) Unknown Completed [facility] HPV9 Unknown Completed [facility] HPV9 Unknown Completed [facility] HPV9 Unknown Completed [facility] Influenza Virus Vaccine Quad IM, Preserv and ABX Free 6 MO-64 YRS (FLUCELVAX) Unknown Completed [facility] Influenza Virus Vaccine Quad .5 mL IM 6+ MO (FLUZONE/FLULAVAL/F LUARIX) Unknown Completed [facility] Influenza Virus Vaccine Quad .5 mL IM 6+ MO (FLUZONE/FLULAVAL/F LUARIX) Unknown Completed [facility] SARS-COV-2 COVID-19 PFIZER VACCINE Unknown Completed [facility] SARS-COV-2 COVID-19 PFIZER VACCINE Unknown Completed [facility] Influenza Virus Vaccine Quad IM, Preserv and ABX Free 6 MO-64 YRS (FLUCELVAX) Unknown Completed [facility] Influenza Virus Vaccine Quad IM 3+ YRS Unknown Completed [facility] SARS-COV-2 COVID-19 PFIZER VACCINE Unknown Completed [facility] Influenza Virus Vaccine Quad IM, Preserv and ABX Free 6 MO-64 YRS (FLUCELVAX) Unknown Completed [facility] HPV9 Unknown Completed [facility] HPV9 Unknown Completed [facility] HPV9 Unknown Completed [facility] Influenza Virus Vaccine Quad IM, Preserv and ABX Free 6 MO-64 YRS (FLUCELVAX) Unknown Completed [facility] Influenza Virus Vaccine Quad .5 mL IM 6+ MO (FLUZONE/FLULAVAL/F LUARIX) Unknown Completed [facility] Influenza Virus Vaccine Quad .5 mL IM 6+ MO (FLUZONE/FLULAVAL/F LUARIX) Unknown Completed [facility] SARS-COV-2 COVID-19 PFIZER VACCINE Unknown Completed [facility] SARS-COV-2 COVID-19 PFIZER VACCINE Unknown Completed [facility] Influenza Virus Vaccine Quad IM, Preserv and ABX Free 6 MO-64 YRS (FLUCELVAX) Unknown Completed [facility] Influenza Virus Vaccine Quad IM 3+ YRS Unknown Completed [facility] SARS-COV-2 COVID-19 PFIZER VACCINE Unknown Completed [facility] Influenza Virus Vaccine Quad IM, Preserv and ABX Free 6 MO-64 YRS (FLUCELVAX) Unknown Completed [facility] HPV9 Unknown Completed [facility] HPV9 Unknown Completed [facility] HPV9 Unknown Completed [facility] Influenza Virus Vaccine Quad IM, Preserv and ABX Free 6 MO-64 YRS (FLUCELVAX) Unknown Completed [facility] Influenza Virus Vaccine Quad .5 mL IM 6+ MO (FLUZONE/FLULAVAL/F LUARIX) Unknown Completed [facility] Influenza Virus Vaccine Quad .5 mL IM 6+ MO (FLUZONE/FLULAVAL/F LUARIX) Unknown Completed [facility] SARS-COV-2 COVID-19 PFIZER VACCINE Unknown Completed [facility] SARS-COV-2 COVID-19 PFIZER VACCINE Unknown Completed [facility] Influenza Virus Vaccine Quad IM, Preserv and ABX Free 6 MO-64 YRS (FLUCELVAX) Unknown Completed [facility] Influenza Virus Vaccine Quad IM 3+ YRS Unknown Completed [facility] SARS-COV-2 COVID-19 PFIZER VACCINE Unknown Completed [facility] Influenza Virus Vaccine Quad IM, Preserv and ABX Free 6 MO-64 YRS (FLUCELVAX) Unknown Completed [facility] HPV9 Unknown Completed [facility] HPV9 Unknown Completed [facility] HPV9 Unknown Completed [facility] Influenza Virus Vaccine Quad IM, Preserv and ABX Free 6 MO-64 YRS (FLUCELVAX) Unknown Completed [facility] Influenza Virus Vaccine Quad .5 mL IM 6+ MO (FLUZONE/FLULAVAL/F LUARIX) Unknown Completed [facility] Influenza Virus Vaccine Quad .5 mL IM 6+ MO (FLUZONE/FLULAVAL/F LUARIX) Unknown Completed [facility] SARS-COV-2 COVID-19 PFIZER VACCINE Unknown Completed [facility] SARS-COV-2 COVID-19 PFIZER VACCINE Unknown Completed [facility] Influenza Virus Vaccine Quad IM, Preserv and ABX Free 6 MO-64 YRS (FLUCELVAX) Unknown Completed [facility] Influenza Virus Vaccine Quad IM 3+ YRS Unknown Completed [facility] SARS-COV-2 COVID-19 PFIZER VACCINE Unknown Completed [facility] Influenza Virus Vaccine Quad IM, Preserv and ABX Free 6 MO-64 YRS (FLUCELVAX) Unknown Completed [facility] HPV9 Unknown Completed [facility] HPV9 Unknown Completed [facility] HPV9 Unknown Completed [facility] Influenza Virus Vaccine Quad IM, Preserv and ABX Free 6 MO-64 YRS (FLUCELVAX) Unknown Completed [facility] Influenza Virus Vaccine Quad .5 mL IM 6+ MO (FLUZONE/FLULAVAL/F LUARIX) Unknown Completed [facility] Influenza Virus Vaccine Quad .5 mL IM 6+ MO (FLUZONE/FLULAVAL/F LUARIX) Unknown Completed [facility] SARS-COV-2 COVID-19 PFIZER VACCINE Unknown Completed [facility] SARS-COV-2 COVID-19 PFIZER VACCINE Unknown Completed [facility] Influenza Virus Vaccine Quad IM, Preserv and ABX Free 6 MO-64 YRS (FLUCELVAX) Unknown Completed [facility] Influenza Virus Vaccine Quad IM 3+ YRS Unknown Completed [facility] SARS-COV-2 COVID-19 PFIZER VACCINE Unknown Completed [facility] Influenza Virus Vaccine Quad IM, Preserv and ABX Free 6 MO-64 YRS (FLUCELVAX) Unknown Completed [facility] HPV9 Unknown Completed [facility] HPV9 Unknown Completed [facility] HPV9 Unknown Completed [facility] Influenza Virus Vaccine Quad IM, Preserv and ABX Free 6 MO-64 YRS (FLUCELVAX) Unknown Completed [facility] Influenza Virus Vaccine Quad .5 mL IM 6+ MO (FLUZONE/FLULAVAL/F LUARIX) Unknown Completed [facility] Influenza Virus Vaccine Quad .5 mL IM 6+ MO (FLUZONE/FLULAVAL/F LUARIX) Unknown Completed [facility] SARS-COV-2 COVID-19 PFIZER VACCINE Unknown Completed [facility] SARS-COV-2 COVID-19 PFIZER VACCINE Unknown Completed [facility] Influenza Virus Vaccine Quad IM, Preserv and ABX Free 6 MO-64 YRS (FLUCELVAX) Unknown Completed [facility] Influenza Virus Vaccine Quad IM 3+ YRS Unknown Completed [facility] SARS-COV-2 COVID-19 PFIZER VACCINE Unknown Completed [facility] Influenza Virus Vaccine Quad IM, Preserv and ABX Free 6 MO-64 YRS (FLUCELVAX) Unknown Completed [facility] HPV9 Unknown Completed [facility] HPV9 Unknown Completed [facility] HPV9 Unknown Completed [facility] Influenza Virus Vaccine Quad IM, Preserv and ABX Free 6 MO-64 YRS (FLUCELVAX) Unknown Completed [facility] Influenza Virus Vaccine Quad .5 mL IM 6+ MO (FLUZONE/FLULAVAL/F LUARIX) Unknown Completed [facility] Influenza Virus Vaccine Quad .5 mL IM 6+ MO (FLUZONE/FLULAVAL/F LUARIX) Unknown Completed [facility] SARS-COV-2 COVID-19 PFIZER VACCINE Unknown Completed [facility] SARS-COV-2 COVID-19 PFIZER VACCINE Unknown Completed [facility] Influenza Virus Vaccine Quad IM, Preserv and ABX Free 6 MO-64 YRS (FLUCELVAX) Unknown Completed [facility] Influenza Virus Vaccine Quad IM 3+ YRS Unknown Completed [facility] SARS-COV-2 COVID-19 PFIZER VACCINE Unknown Completed [facility] Influenza Virus Vaccine Quad IM, Preserv and ABX Free 6 MO-64 YRS (FLUCELVAX) Unknown Completed [facility] HPV9 Unknown Completed [facility] HPV9 Unknown Completed [facility] HPV9 Unknown Completed [facility] Influenza Virus Vaccine Quad IM, Preserv and ABX Free 6 MO-64 YRS (FLUCELVAX) Unknown Completed [facility] Influenza Virus Vaccine Quad .5 mL IM 6+ MO (FLUZONE/FLULAVAL/F LUARIX) Unknown Completed [facility] Influenza Virus Vaccine Quad .5 mL IM 6+ MO (FLUZONE/FLULAVAL/F LUARIX) Unknown Completed [facility] SARS-COV-2 COVID-19 PFIZER VACCINE Unknown Completed [facility] SARS-COV-2 COVID-19 PFIZER VACCINE Unknown Completed [facility] Influenza Virus Vaccine Quad IM, Preserv and ABX Free 6 MO-64 YRS (FLUCELVAX) Unknown Completed [facility] Influenza Virus Vaccine Quad IM 3+ YRS Unknown Completed [facility] SARS-COV-2 COVID-19 PFIZER VACCINE Unknown Completed [facility] Influenza Virus Vaccine Quad IM, Preserv and ABX Free 6 MO-64 YRS (FLUCELVAX) Unknown Completed [facility] HPV9 Unknown Completed [facility] HPV9 Unknown Completed [facility] HPV9 Unknown Completed [facility] Influenza Virus Vaccine Quad IM, Preserv and ABX Free 6 MO-64 YRS (FLUCELVAX) Unknown Completed [facility] Influenza Virus Vaccine Quad .5 mL IM 6+ MO (FLUZONE/FLULAVAL/F LUARIX) Unknown Completed [facility] Influenza Virus Vaccine Quad .5 mL IM 6+ MO (FLUZONE/FLULAVAL/F LUARIX) Unknown Completed [facility] SARS-COV-2 COVID-19 PFIZER VACCINE Unknown Completed [facility] SARS-COV-2 COVID-19 PFIZER VACCINE Unknown Completed [facility] Influenza Virus Vaccine Quad IM, Preserv and ABX Free 6 MO-64 YRS (FLUCELVAX) Unknown Completed [facility] Influenza Virus Vaccine Quad IM 3+ YRS Unknown Completed [facility] SARS-COV-2 COVID-19 PFIZER VACCINE Unknown Completed [facility] Influenza Virus Vaccine Quad IM, Preserv and ABX Free 6 MO-64 YRS (FLUCELVAX) Unknown Completed [facility] HPV9 Unknown Completed [facility] HPV9 Unknown Completed [facility] HPV9 Unknown Completed [facility] Influenza Virus Vaccine Quad IM, Preserv and ABX Free 6 MO-64 YRS (FLUCELVAX) Unknown Completed [facility] Influenza Virus Vaccine Quad .5 mL IM 6+ MO (FLUZONE/FLULAVAL/F LUARIX) Unknown Completed [facility] Influenza Virus Vaccine Quad .5 mL IM 6+ MO (FLUZONE/FLULAVAL/F LUARIX) Unknown Completed [facility] SARS-COV-2 COVID-19 PFIZER VACCINE Unknown Completed [facility] SARS-COV-2 COVID-19 PFIZER VACCINE Unknown Completed [facility] Influenza Virus Vaccine Quad IM, Preserv and ABX Free 6 MO-64 YRS (FLUCELVAX) Unknown Completed [facility] Influenza Virus Vaccine Quad IM 3+ YRS Unknown Completed [facility] SARS-COV-2 COVID-19 PFIZER VACCINE Unknown Completed [facility] Influenza Virus Vaccine Quad IM, Preserv and ABX Free 6 MO-64 YRS (FLUCELVAX) Unknown Completed [facility] HPV9 Unknown Completed [facility] HPV9 Unknown Completed [facility] HPV9 Unknown Completed [facility] Influenza Virus Vaccine Quad IM, Preserv and ABX Free 6 MO-64 YRS (FLUCELVAX) Unknown Completed [facility] Influenza Virus Vaccine Quad .5 mL IM 6+ MO (FLUZONE/FLULAVAL/F LUARIX) Unknown Completed [facility] Influenza Virus Vaccine Quad .5 mL IM 6+ MO (FLUZONE/FLULAVAL/F LUARIX) Unknown Completed [facility] SARS-COV-2 COVID-19 PFIZER VACCINE Unknown Completed [facility] SARS-COV-2 COVID-19 PFIZER VACCINE Unknown Completed [facility] Influenza Virus Vaccine Quad IM, Preserv and ABX Free 6 MO-64 YRS (FLUCELVAX) Unknown Completed [facility] Influenza Virus Vaccine Quad IM 3+ YRS Unknown Completed [facility] SARS-COV-2 COVID-19 PFIZER VACCINE Unknown Completed [facility] Influenza Virus Vaccine Quad IM, Preserv and ABX Free 6 MO-64 YRS (FLUCELVAX) Unknown Completed [facility] HPV9 Unknown Completed [facility] HPV9 Unknown Completed [facility] HPV9 Unknown Completed [facility] Influenza Virus Vaccine Quad IM, Preserv and ABX Free 6 MO-64 YRS (FLUCELVAX) Unknown Completed [facility] Influenza Virus Vaccine Quad .5 mL IM 6+ MO (FLUZONE/FLULAVAL/F LUARIX) Unknown Completed [facility] Influenza Virus Vaccine Quad .5 mL IM 6+ MO (FLUZONE/FLULAVAL/F LUARIX) Unknown Completed [facility] SARS-COV-2 COVID-19 PFIZER VACCINE Unknown Completed [facility] SARS-COV-2 COVID-19 PFIZER VACCINE Unknown Completed [facility] Influenza Virus Vaccine Quad IM, Preserv and ABX Free 6 MO-64 YRS (FLUCELVAX) Unknown Completed [facility] Influenza Virus Vaccine Quad IM 3+ YRS Unknown Completed [facility] SARS-COV-2 COVID-19 PFIZER VACCINE Unknown Completed [facility] Influenza Virus Vaccine Quad IM, Preserv and ABX Free 6 MO-64 YRS (FLUCELVAX) Unknown Completed [facility] HPV9 Unknown Completed [facility] HPV9 Unknown Completed [facility] HPV9 Unknown Completed [facility] Influenza Virus Vaccine Quad IM, Preserv and ABX Free 6 MO-64 YRS (FLUCELVAX) Unknown Completed [facility] Influenza Virus Vaccine Quad .5 mL IM 6+ MO (FLUZONE/FLULAVAL/F LUARIX) Unknown Completed [facility] [facility] Influenza Virus Vaccine Quad .5 mL IM 6+ MO (FLUZONE/FLULAVAL/F LUARIX) Unknown Completed [facility] SARS-COV-2 COVID-19 PFIZER VACCINE Unknown Completed [facility] SARS-COV-2 COVID-19 PFIZER VACCINE Unknown Completed [facility] Influenza Virus Vaccine Quad IM, Preserv and ABX Free 6 MO-64 YRS (FLUCELVAX) Unknown Completed [facility] Influenza Virus Vaccine Quad IM 3+ YRS Unknown Completed [facility] SARS-COV-2 COVID-19 PFIZER VACCINE Unknown Completed [facility] Influenza Virus Vaccine Quad IM, Preserv and ABX Free 6 MO-64 YRS (FLUCELVAX) Unknown Completed [facility] HPV9 Unknown Completed [facility] HPV9 Unknown Completed [facility] HPV9 Unknown Completed [facility] Influenza Virus Vaccine Quad IM, Preserv and ABX Free 6 MO-64 YRS (FLUCELVAX) Unknown Completed [facility] Influenza Virus Vaccine Quad .5 mL IM 6+ MO (FLUZONE/FLULAVAL/F LUARIX) Unknown Completed [facility] Influenza Virus Vaccine Quad .5 mL IM 6+ MO (FLUZONE/FLULAVAL/F LUARIX) Unknown Completed [facility] SARS-COV-2 COVID-19 PFIZER VACCINE Unknown Completed [facility] SARS-COV-2 COVID-19 PFIZER VACCINE Unknown Completed [facility] Influenza Virus Vaccine Quad IM, Preserv and ABX Free 6 MO-64 YRS (FLUCELVAX) Unknown Completed [facility] Influenza Virus Vaccine Quad IM 3+ YRS Unknown Completed [facility] SARS-COV-2 COVID-19 PFIZER VACCINE Unknown Completed [facility] Influenza Virus Vaccine Quad IM, Preserv and ABX Free 6 MO-64 YRS (FLUCELVAX) Unknown Completed [facility] HPV9 Unknown Completed [facility] HPV9 Unknown Completed [facility] HPV9 Unknown Completed [facility] Influenza Virus Vaccine Quad IM, Preserv and ABX Free 6 MO-64 YRS (FLUCELVAX) Unknown Completed [facility] Influenza Virus Vaccine Quad .5 mL IM 6+ MO (FLUZONE/FLULAVAL/F LUARIX) Unknown Completed [facility] Influenza Virus Vaccine Quad .5 mL IM 6+ MO (FLUZONE/FLULAVAL/F LUARIX) Unknown Completed [facility] SARS-COV-2 COVID-19 PFIZER VACCINE Unknown Completed [facility] SARS-COV-2 COVID-19 PFIZER VACCINE Unknown Completed [facility] Influenza Virus Vaccine Quad IM, Preserv and ABX Free 6 MO-64 YRS (FLUCELVAX) Unknown Completed [facility] Influenza Virus Vaccine Quad IM 3+ YRS Unknown Completed [facility] SARS-COV-2 COVID-19 PFIZER VACCINE Unknown Completed [facility] Influenza Virus Vaccine Quad IM, Preserv and ABX Free 6 MO-64 YRS (FLUCELVAX) Unknown Completed [facility] HPV9 Unknown Completed [facility] HPV9 Unknown Completed [facility] HPV9 Unknown Completed [facility] Influenza Virus Vaccine Quad IM, Preserv and ABX Free 6 MO-64 YRS (FLUCELVAX) Unknown Completed [facility] Influenza Virus Vaccine Quad .5 mL IM 6+ MO (FLUZONE/FLULAVAL/F LUARIX) Unknown Completed [facility] Influenza Virus Vaccine Quad .5 mL IM 6+ MO (FLUZONE/FLULAVAL/F LUARIX) Unknown Completed [facility] SARS-COV-2 COVID-19 PFIZER VACCINE Unknown Completed [facility] SARS-COV-2 COVID-19 PFIZER VACCINE Unknown Completed [facility] Influenza Virus Vaccine Quad IM, Preserv and ABX Free 6 MO-64 YRS (FLUCELVAX) Unknown Completed [facility] Influenza Virus Vaccine Quad IM 3+ YRS Unknown Completed [facility] SARS-COV-2 COVID-19 PFIZER VACCINE Unknown Completed [facility] Influenza Virus Vaccine Quad IM, Preserv and ABX Free 6 MO-64 YRS (FLUCELVAX) Unknown Completed [facility] HPV9 Unknown Completed [facility] HPV9 Unknown Completed [facility] HPV9 Unknown Completed [facility] Influenza Virus Vaccine Quad IM, Preserv and ABX Free 6 MO-64 YRS (FLUCELVAX) Unknown Completed [facility] Influenza Virus Vaccine Quad .5 mL IM 6+ MO (FLUZONE/FLULAVAL/F LUARIX) Unknown Completed [facility] Influenza Virus Vaccine Quad .5 mL IM 6+ MO (FLUZONE/FLULAVAL/F LUARIX) Unknown Completed [facility] SARS-COV-2 COVID-19 PFIZER VACCINE Unknown Completed [facility] SARS-COV-2 COVID-19 PFIZER VACCINE Unknown Completed [facility] Influenza Virus Vaccine Quad IM, Preserv and ABX Free 6 MO-64 YRS (FLUCELVAX) Unknown Completed [facility] Influenza Virus Vaccine Quad IM 3+ YRS Unknown Completed [facility] SARS-COV-2 COVID-19 PFIZER VACCINE Unknown Completed [facility] Influenza Virus Vaccine Quad IM, Preserv and ABX Free 6 MO-64 YRS (FLUCELVAX) Unknown Completed [facility] HPV9 Unknown Completed [facility] HPV9 Unknown Completed [facility] HPV9 Unknown Completed [facility] Influenza Virus Vaccine Quad IM, Preserv and ABX Free 6 MO-64 YRS (FLUCELVAX) Unknown Completed [facility] Influenza Virus Vaccine Quad .5 mL IM 6+ MO (FLUZONE/FLULAVAL/F LUARIX) Unknown Completed [facility] Influenza Virus Vaccine Quad .5 mL IM 6+ MO (FLUZONE/FLULAVAL/F LUARIX) Unknown Completed [facility] SARS-COV-2 COVID-19 PFIZER VACCINE Unknown Completed [facility] SARS-COV-2 COVID-19 PFIZER VACCINE Unknown Completed [facility] Influenza Virus Vaccine Quad IM, Preserv and ABX Free 6 MO-64 YRS (FLUCELVAX) Unknown Completed [facility] Influenza Virus Vaccine Quad IM 3+ YRS Unknown Completed [facility] SARS-COV-2 COVID-19 PFIZER VACCINE Unknown Completed [facility] Influenza Virus Vaccine Quad IM, Preserv and ABX Free 6 MO-64 YRS (FLUCELVAX) Unknown Completed [facility] HPV9 Unknown Completed [facility] HPV9 Unknown Completed [facility] HPV9 Unknown Completed [facility] Influenza Virus Vaccine Quad IM, Preserv and ABX Free 6 MO-64 YRS (FLUCELVAX) Unknown Completed [facility] Influenza Virus Vaccine Quad .5 mL IM 6+ MO (FLUZONE/FLULAVAL/F LUARIX) Unknown Completed [facility] Influenza Virus Vaccine Quad .5 mL IM 6+ MO (FLUZONE/FLULAVAL/F LUARIX) Unknown Completed [facility] SARS-COV-2 COVID-19 PFIZER VACCINE Unknown Completed [facility] SARS-COV-2 COVID-19 PFIZER VACCINE Unknown Completed [facility] Influenza Virus Vaccine Quad IM, Preserv and ABX Free 6 MO-64 YRS (FLUCELVAX) Unknown Completed [facility] Influenza Virus Vaccine Quad IM 3+ YRS Unknown Completed [facility] SARS-COV-2 COVID-19 PFIZER VACCINE Unknown Completed [facility] Influenza Virus Vaccine Quad IM, Preserv and ABX Free 6 MO-64 YRS (FLUCELVAX) Unknown Completed [facility] HPV9 Unknown Completed [facility] HPV9 Unknown Completed [facility] HPV9 Unknown Completed [facility] Influenza Virus Vaccine Quad IM, Preserv and ABX Free 6 MO-64 YRS (FLUCELVAX) Unknown Completed [facility] Influenza Virus Vaccine Quad .5 mL IM 6+ MO (FLUZONE/FLULAVAL/F LUARIX) Unknown Completed [facility] Influenza Virus Vaccine Quad .5 mL IM 6+ MO (FLUZONE/FLULAVAL/F LUARIX) Unknown Completed [facility] SARS-COV-2 COVID-19 PFIZER VACCINE Unknown Completed [facility] SARS-COV-2 COVID-19 PFIZER VACCINE Unknown Completed [facility] Influenza Virus Vaccine Quad IM, Preserv and ABX Free 6 MO-64 YRS (FLUCELVAX) Unknown Completed [facility] Influenza Virus Vaccine Quad IM 3+ YRS Unknown Completed [facility] SARS-COV-2 COVID-19 PFIZER VACCINE Unknown Completed [facility] Influenza Virus Vaccine Quad IM, Preserv and ABX Free 6 MO-64 YRS (FLUCELVAX) Unknown Completed [facility] HPV9 Unknown Completed [facility] HPV9 Unknown Completed [facility] HPV9 Unknown Completed [facility] Influenza Virus Vaccine Quad IM, Preserv and ABX Free 6 MO-64 YRS (FLUCELVAX) Unknown Completed [facility] Influenza Virus Vaccine Quad .5 mL IM 6+ MO (FLUZONE/FLULAVAL/F LUARIX) Unknown Completed [facility] Influenza Virus Vaccine Quad .5 mL IM 6+ MO (FLUZONE/FLULAVAL/F LUARIX) Unknown Completed [facility] SARS-COV-2 COVID-19 PFIZER VACCINE Unknown Completed [facility] SARS-COV-2 COVID-19 PFIZER VACCINE Unknown Completed [facility] Influenza Virus Vaccine Quad IM, Preserv and ABX Free 6 MO-64 YRS (FLUCELVAX) Unknown Completed [facility] Influenza Virus Vaccine Quad IM 3+ YRS Unknown Completed [facility] SARS-COV-2 COVID-19 PFIZER VACCINE Unknown Completed [facility] Influenza Virus Vaccine Quad IM, Preserv and ABX Free 6 MO-64 YRS (FLUCELVAX) Unknown Completed [facility] HPV9 Unknown Completed [facility] HPV9 Unknown Completed [facility] HPV9 Unknown Completed [facility] Influenza Virus Vaccine Quad IM, Preserv and ABX Free 6 MO-64 YRS (FLUCELVAX) Unknown Completed [facility] Influenza Virus Vaccine Quad .5 mL IM 6+ MO (FLUZONE/FLULAVAL/F LUARIX) Unknown Completed [facility] Influenza Virus Vaccine Quad .5 mL IM 6+ MO (FLUZONE/FLULAVAL/F LUARIX) Unknown Completed [facility] SARS-COV-2 COVID-19 PFIZER VACCINE Unknown Completed [facility] SARS-COV-2 COVID-19 PFIZER VACCINE Unknown Completed [facility] Influenza Virus Vaccine Quad IM, Preserv and ABX Free 6 MO-64 YRS (FLUCELVAX) Unknown Completed [facility] Influenza Virus Vaccine Quad IM 3+ YRS Unknown Completed [facility] SARS-COV-2 COVID-19 PFIZER VACCINE Unknown Completed [facility] Influenza Virus Vaccine Quad IM, Preserv and ABX Free 6 MO-64 YRS (FLUCELVAX) Unknown Completed [facility] HPV9 Unknown Completed [facility] HPV9 Unknown Completed [facility] HPV9 Unknown Completed [facility] Influenza Virus Vaccine Quad IM, Preserv and ABX Free 6 MO-64 YRS (FLUCELVAX) Unknown Completed [facility] Influenza Virus Vaccine Quad .5 mL IM 6+ MO (FLUZONE/FLULAVAL/F LUARIX) Unknown Completed [facility] Influenza Virus Vaccine Quad .5 mL IM 6+ MO (FLUZONE/FLULAVAL/F LUARIX) Unknown Completed [facility] SARS-COV-2 COVID-19 PFIZER VACCINE Unknown Completed [facility] SARS-COV-2 COVID-19 PFIZER VACCINE Unknown Completed [facility] Influenza Virus Vaccine Quad IM, Preserv and ABX Free 6 MO-64 YRS (FLUCELVAX) Unknown Completed [facility] Influenza Virus Vaccine Quad IM 3+ YRS Unknown Completed [facility] SARS-COV-2 COVID-19 PFIZER VACCINE Unknown Completed [facility] Influenza Virus Vaccine Quad IM, Preserv and ABX Free 6 MO-64 YRS (FLUCELVAX) Unknown Completed [facility] HPV9 Unknown Completed [facility] HPV9 Unknown Completed [facility] HPV9 Unknown Completed [facility] Influenza Virus Vaccine Quad IM, Preserv and ABX Free 6 MO-64 YRS (FLUCELVAX) Unknown Completed [facility] Influenza Virus Vaccine Quad .5 mL IM 6+ MO (FLUZONE/FLULAVAL/F LUARIX) Unknown Completed [facility] Influenza Virus Vaccine Quad .5 mL IM 6+ MO (FLUZONE/FLULAVAL/F LUARIX) Unknown Completed [facility] SARS-COV-2 COVID-19 PFIZER VACCINE Unknown Completed [facility] SARS-COV-2 COVID-19 PFIZER VACCINE Unknown Completed [facility] Influenza Virus Vaccine Quad IM, Preserv and ABX Free 6 MO-64 YRS (FLUCELVAX) Unknown Completed [facility] Influenza Virus Vaccine Quad IM 3+ YRS Unknown Completed [facility] SARS-COV-2 COVID-19 PFIZER VACCINE Unknown Completed [facility] Influenza Virus Vaccine Quad IM, Preserv and ABX Free 6 MO-64 YRS (FLUCELVAX) Unknown Completed [facility] HPV9 Unknown Completed [facility] HPV9 Unknown Completed [facility] HPV9 Unknown Completed [facility] Influenza Virus Vaccine Quad IM, Preserv and ABX Free 6 MO-64 YRS (FLUCELVAX) Unknown Completed [facility] Influenza Virus Vaccine Quad .5 mL IM 6+ MO (FLUZONE/FLULAVAL/F LUARIX) Unknown Completed [facility] Influenza Virus Vaccine Quad .5 mL IM 6+ MO (FLUZONE/FLULAVAL/F LUARIX) Unknown Completed [facility] SARS-COV-2 COVID-19 PFIZER VACCINE Unknown Completed [facility] SARS-COV-2 COVID-19 PFIZER VACCINE Unknown Completed [facility] Influenza Virus Vaccine Quad IM, Preserv and ABX Free 6 MO-64 YRS (FLUCELVAX) Unknown Completed [facility] Influenza Virus Vaccine Quad IM 3+ YRS Unknown Completed [facility] SARS-COV-2 COVID-19 PFIZER VACCINE Unknown Completed [facility] Influenza Virus Vaccine Quad IM, Preserv and ABX Free 6 MO-64 YRS (FLUCELVAX) Unknown Completed [facility] HPV9 Unknown Completed [facility] HPV9 Unknown Completed [facility] HPV9 Unknown Completed [facility] Influenza Virus Vaccine Quad IM, Preserv and ABX Free 6 MO-64 YRS (FLUCELVAX) Unknown Completed [facility] Influenza Virus Vaccine Quad .5 mL IM 6+ MO (FLUZONE/FLULAVAL/F LUARIX) Unknown Completed [facility] Influenza Virus Vaccine Quad .5 mL IM 6+ MO (FLUZONE/FLULAVAL/F LUARIX) Unknown Completed [facility] SARS-COV-2 COVID-19 PFIZER VACCINE Unknown Completed [facility] SARS-COV-2 COVID-19 PFIZER VACCINE Unknown Completed [facility] Influenza Virus Vaccine Quad IM, Preserv and ABX Free 6 MO-64 YRS (FLUCELVAX) Unknown Completed [facility] Influenza Virus Vaccine Quad IM 3+ YRS Unknown Completed [facility] SARS-COV-2 COVID-19 PFIZER VACCINE Unknown Completed [facility] Influenza Virus Vaccine Quad IM, Preserv and ABX Free 6 MO-64 YRS (FLUCELVAX) Unknown Completed [facility] HPV9 Unknown Completed [facility] HPV9 Unknown Completed [facility] HPV9 Unknown Completed [facility] Influenza Virus Vaccine Quad IM, Preserv and ABX Free 6 MO-64 YRS (FLUCELVAX) Unknown Completed [facility] Influenza Virus Vaccine Quad .5 mL IM 6+ MO (FLUZONE/FLULAVAL/F LUARIX) Unknown Completed [facility] Influenza Virus Vaccine Quad .5 mL IM 6+ MO (FLUZONE/FLULAVAL/F LUARIX) Unknown Completed [facility] SARS-COV-2 COVID-19 PFIZER VACCINE Unknown Completed [facility] SARS-COV-2 COVID-19 PFIZER VACCINE Unknown Completed [facility] Influenza Virus Vaccine Quad IM, Preserv and ABX Free 6 MO-64 YRS (FLUCELVAX) Unknown Completed [facility] Influenza Virus Vaccine Quad IM 3+ YRS Unknown Completed [facility] SARS-COV-2 COVID-19 PFIZER VACCINE Unknown Completed [facility] Influenza Virus Vaccine Quad IM, Preserv and ABX Free 6 MO-64 YRS (FLUCELVAX) Unknown Completed [facility] HPV9 Unknown Completed [facility] HPV9 Unknown Completed [facility] HPV9 Unknown Completed [facility] Influenza Virus Vaccine Quad IM, Preserv and ABX Free 6 MO-64 YRS (FLUCELVAX) Unknown Completed [facility] Influenza Virus Vaccine Quad .5 mL IM 6+ MO (FLUZONE/FLULAVAL/F LUARIX) Unknown Completed [facility] Influenza Virus Vaccine Quad .5 mL IM 6+ MO (FLUZONE/FLULAVAL/F LUARIX) Unknown Completed [facility] SARS-COV-2 COVID-19 PFIZER VACCINE Unknown Completed [facility] SARS-COV-2 COVID-19 PFIZER VACCINE Unknown Completed [facility] Influenza Virus Vaccine Quad IM, Preserv and ABX Free 6 MO-64 YRS (FLUCELVAX) Unknown Completed [facility] Influenza Virus Vaccine Quad IM 3+ YRS Unknown Completed [facility] SARS-COV-2 COVID-19 PFIZER VACCINE Unknown Completed [facility] Influenza Virus Vaccine Quad IM, Preserv and ABX Free 6 MO-64 YRS (FLUCELVAX) Unknown Completed [facility] HPV9 Unknown Completed [facility] HPV9 Unknown Completed [facility] HPV9 Unknown Completed [facility] Influenza Virus Vaccine Quad IM, Preserv and ABX Free 6 MO-64 YRS (FLUCELVAX) Unknown Completed [facility] Influenza Virus Vaccine Quad .5 mL IM 6+ MO (FLUZONE/FLULAVAL/F LUARIX) Unknown Completed [facility] Influenza Virus Vaccine Quad .5 mL IM 6+ MO (FLUZONE/FLULAVAL/F LUARIX) Unknown Completed [facility] SARS-COV-2 COVID-19 PFIZER VACCINE Unknown Completed [facility] SARS-COV-2 COVID-19 PFIZER VACCINE Unknown Completed [facility] Influenza Virus Vaccine Quad IM, Preserv and ABX Free 6 MO-64 YRS (FLUCELVAX) Unknown Completed [facility] Influenza Virus Vaccine Quad IM 3+ YRS Unknown Completed [facility] SARS-COV-2 COVID-19 PFIZER VACCINE Unknown Completed [facility] Influenza Virus Vaccine Quad IM, Preserv and ABX Free 6 MO-64 YRS (FLUCELVAX) Unknown Completed [facility] HPV9 Unknown Completed [facility] HPV9 Unknown Completed [facility] HPV9 Unknown Completed [facility] Influenza Virus Vaccine Quad IM, Preserv and ABX Free 6 MO-64 YRS (FLUCELVAX) Unknown Completed [facility] Influenza Virus Vaccine Quad .5 mL IM 6+ MO (FLUZONE/FLULAVAL/F LUARIX) Unknown Completed [facility] Influenza Virus Vaccine Quad .5 mL IM 6+ MO (FLUZONE/FLULAVAL/F LUARIX) Unknown Completed [facility] SARS-COV-2 COVID-19 PFIZER VACCINE Unknown Completed [facility] SARS-COV-2 COVID-19 PFIZER VACCINE Unknown Completed [facility] Influenza Virus Vaccine Quad IM, Preserv and ABX Free 6 MO-64 YRS (FLUCELVAX) Unknown Completed [facility] Influenza Virus Vaccine Quad IM 3+ YRS Unknown Completed [facility] SARS-COV-2 COVID-19 PFIZER VACCINE Unknown Completed [facility] Influenza Virus Vaccine Quad IM, Preserv and ABX Free 6 MO-64 YRS (FLUCELVAX) Unknown Completed [facility] HPV9 Unknown Completed [facility] HPV9 Unknown Completed [facility] HPV9 Unknown Completed [facility] Influenza Virus Vaccine Quad IM, Preserv and ABX Free 6 MO-64 YRS (FLUCELVAX) Unknown Completed [facility] Influenza Virus Vaccine Quad .5 mL IM 6+ MO (FLUZONE/FLULAVAL/F LUARIX) Unknown Completed [facility] Influenza Virus Vaccine Quad .5 mL IM 6+ MO (FLUZONE/FLULAVAL/F LUARIX) Unknown Completed [facility] SARS-COV-2 COVID-19 PFIZER VACCINE Unknown Completed [facility] SARS-COV-2 COVID-19 PFIZER VACCINE Unknown Completed [facility] Influenza Virus Vaccine Quad IM, Preserv and ABX Free 6 MO-64 YRS (FLUCELVAX) Unknown Completed [facility] Influenza Virus Vaccine Quad IM 3+ YRS Unknown Completed [facility] SARS-COV-2 COVID-19 PFIZER VACCINE Unknown Completed [facility] Influenza Virus Vaccine Quad IM, Preserv and ABX Free 6 MO-64 YRS (FLUCELVAX) Unknown Completed [facility] HPV9 Unknown Completed [facility] HPV9 Unknown Completed [facility] HPV9 Unknown Completed [facility] Influenza Virus Vaccine Quad IM, Preserv and ABX Free 6 MO-64 YRS (FLUCELVAX) Unknown Completed [facility] Influenza Virus Vaccine Quad .5 mL IM 6+ MO (FLUZONE/FLULAVAL/F LUARIX) Unknown Completed [facility] Influenza Virus Vaccine Quad .5 mL IM 6+ MO (FLUZONE/FLULAVAL/F LUARIX) Unknown Completed [facility] SARS-COV-2 COVID-19 PFIZER VACCINE Unknown Completed [facility] SARS-COV-2 COVID-19 PFIZER VACCINE Unknown Completed [facility] Influenza Virus Vaccine Quad IM, Preserv and ABX Free 6 MO-64 YRS (FLUCELVAX) Unknown Completed [facility] Influenza Virus Vaccine Quad IM 3+ YRS Unknown Completed [facility] SARS-COV-2 COVID-19 PFIZER VACCINE Unknown Completed [facility] Influenza Virus Vaccine Quad IM, Preserv and ABX Free 6 MO-64 YRS (FLUCELVAX) Unknown Completed [facility] HPV9 Unknown Completed [facility] HPV9 Unknown Completed [facility] HPV9 Unknown Completed [facility] Influenza Virus Vaccine Quad IM, Preserv and ABX Free 6 MO-64 YRS (FLUCELVAX) Unknown Completed [facility] Influenza Virus Vaccine Quad .5 mL IM 6+ MO (FLUZONE/FLULAVAL/F LUARIX) Unknown Completed [facility] Influenza Virus Vaccine Quad .5 mL IM 6+ MO (FLUZONE/FLULAVAL/F LUARIX) Unknown Completed [facility] SARS-COV-2 COVID-19 PFIZER VACCINE Unknown Completed [facility] SARS-COV-2 COVID-19 PFIZER VACCINE Unknown Completed [facility] Influenza Virus Vaccine Quad IM, Preserv and ABX Free 6 MO-64 YRS (FLUCELVAX) Unknown Completed [facility] Influenza Virus Vaccine Quad IM 3+ YRS Unknown Completed [facility] SARS-COV-2 COVID-19 PFIZER VACCINE Unknown Completed [facility] Influenza Virus Vaccine Quad IM, Preserv and ABX Free 6 MO-64 YRS (FLUCELVAX) Unknown Completed [facility] HPV9 Unknown Completed [facility] HPV9 Unknown Completed [facility] HPV9 Unknown Completed [facility] Influenza Virus Vaccine Quad IM, Preserv and ABX Free 6 MO-64 YRS (FLUCELVAX) Unknown Completed [facility] Vital Signs Vital Name Observation Time Observation Value Comments S ource Systolic blood pressure 2024-06-22 16:05:00 130 mm[Hg] [facility] Diastolic blood pressure 2024-06-22 16:05:00 79 mm[Hg] [facility] Heart rate 2024-06-22 16:05:00 105 /min [facility] Body temperature 2024-06-22 16:05:00 37.06 Ca [facility] Respiratory rate 2024-06-22 16:05:00 18 /min [facility] Oxygen saturation in Arterial blood by Pulse oximetry 2024-06-22 16:05:00 97 /min [facility] Body height 2024-06-20 01:49:00 154.9 cm [facility] Body weight 2024-06-20 01:49:00 72.576 kg [facility] BMI 2024-06-20 01:49:00 30.23 kg/m2 [facility] Systolic blood pressure 2024-06-18 13:55:00 131 mm[Hg] [facility] Diastolic blood pressure 2024-06-18 13:55:00 80 mm[Hg] [facility] Heart rate 2024-06-18 13:55:00 128 /min [facility] Body temperature 2024-06-18 13:55:00 36.94 Ca [facility] Respiratory rate 2024-06-18 13:55:00 18 /min [facility] Body height 2024-06-18 13:55:00 154.9 cm [facility] Body weight 2024-06-18 13:55:00 73.347 kg [facility] BMI 2024-06-18 13:55:00 30.55 kg/m2 [facility] Systolic blood pressure 2024-06-17 08:00:00 122 mm[Hg] [facility] Diastolic blood pressure 2024-06-17 08:00:00 73 mm[Hg] [facility] Heart rate 2024-06-17 08:00:00 110 /min [facility] Body temperature 2024-06-17 08:00:00 37.17 Ca [facility] Oxygen saturation in Arterial blood by Pulse oximetry 2024-06-17 08:00:00 99 /min [facility] Respiratory rate 2024-06-17 07:00:00 21 /min [facility] Body height 2024-06-17 05:24:00 154.9 cm [facility] Body weight 2024-06-17 05:24:00 73.8 kg [facility] BMI 2024-06-17 05:24:00 30.74 kg/m2 [facility] Systolic blood pressure 2024-06-10 13:31:00 135 mm[Hg] [facility] Diastolic blood pressure 2024-06-10 13:31:00 91 mm[Hg] [facility] Heart rate 2024-06-10 13:31:00 107 /min [facility] Body temperature 2024-06-10 13:30:00 36.33 Ca [facility] Body height 2024-06-10 13:30:00 153.7 cm [facility] Body weight 2024-06-10 13:30:00 72.122 kg [facility] BMI 2024-06-10 13:30:00 30.54 kg/m2 [facility] Oxygen saturation in Arterial blood by Pulse oximetry 2024-06-10 13:30:00 98 /min [facility] Systolic blood pressure 2024-05-06 15:56:00 119 mm[Hg] [facility] Diastolic blood pressure 2024-05-06 15:56:00 78 mm[Hg] [facility] Heart rate 2024-05-06 15:56:00 90 /min [facility] Body temperature 2024-05-06 15:56:00 36.61 Ca [facility] Respiratory rate 2024-05-06 15:56:00 18 /min [facility] Body weight 2024-05-06 15:56:00 73.573 kg [facility] BMI 2024-05-06 15:56:00 31.16 kg/m2 [facility] Oxygen saturation in Arterial blood by Pulse oximetry 2024-05-06 15:56:00 99 /min [facility] Systolic blood pressure 2024-04-09 14:28:00 111 mm[Hg] [facility] Diastolic blood pressure 2024-04-09 14:28:00 75 mm[Hg] [facility] Heart rate 2024-04-09 14:28:00 66 /min [facility] Body temperature 2024-04-09 14:28:00 36.28 Ca [facility] Body height 2024-04-09 14:28:00 153.7 cm without shoes [facility] Body weight 2024-04-09 14:28:00 74.072 kg without shoes [facility] BMI 2024-04-09 14:28:00 31.37 kg/m2 [facility] Oxygen saturation in Arterial blood by Pulse oximetry 2024-04-09 14:28:00 100 /min [facility] Systolic blood pressure 2024-04-09 14:28:00 123 mm[Hg] [facility] Diastolic blood pressure 2024-04-09 14:28:00 78 mm[Hg] [facility] Heart rate 2024-04-09 14:28:00 74 /min [facility] Body temperature 2024-04-09 14:27:00 36.28 Ca [facility] Body height 2024-04-09 14:27:00 153.7 cm without shoes [facility] Body weight 2024-04-09 14:27:00 74.072 kg without shoes [facility] BMI 2024-04-09 14:27:00 31.37 kg/m2 [facility] Oxygen saturation in Arterial blood by Pulse oximetry 2024-04-09 14:27:00 100 /min [facility] Systolic blood pressure 2024-03-26 14:03:00 131 mm[Hg] [facility] Diastolic blood pressure 2024-03-26 14:03:00 90 mm[Hg] [facility] Heart rate 2024-03-26 14:03:00 85 /min [facility] Body temperature 2024-03-26 14:03:00 36.33 Ca [facility] Respiratory rate 2024-03-26 14:03:00 18 /min [facility] Body height 2024-03-26 14:03:00 154.9 cm [facility] Body weight 2024-03-26 14:03:00 73.71 kg [facility] BMI 2024-03-26 14:03:00 30.70 kg/m2 [facility] Systolic blood pressure 2024-03-01 13:32:00 118 mm[Hg] [facility] Diastolic blood pressure 2024-03-01 13:32:00 74 mm[Hg] [facility] Heart rate 2024-03-01 13:32:00 64 /min [facility] Body temperature 2024-03-01 13:32:00 36.67 Ca [facility] Respiratory rate 2024-03-01 13:32:00 20 /min [facility] Body height 2024-03-01 13:32:00 154.9 cm [facility] Body weight 2024-03-01 13:32:00 73.483 kg [facility] BMI 2024-03-01 13:32:00 30.61 kg/m2 [facility] Oxygen saturation in Arterial blood by Pulse oximetry 2024-03-01 13:32:00 99 /min [facility] Systolic blood pressure 2024-02-02 10:00:00 123 mm[Hg] [facility] Diastolic blood pressure 2024-02-02 10:00:00 78 mm[Hg] [facility] Heart rate 2024-02-02 10:00:00 90 /min [facility] Respiratory rate 2024-02-02 10:00:00 16 /min [facility] Oxygen saturation in Arterial blood by Pulse oximetry 2024-02-02 10:00:00 98 /min [facility] Body temperature 2024-02-02 08:54:00 36.56 Ca [facility] Body height 2024-02-02 08:54:00 154.9 cm [facility] Body weight 2024-02-02 08:54:00 74.844 kg [facility] BMI 2024-02-02 08:54:00 31.18 kg/m2 [facility] Systolic blood pressure 2024-01-09 14:51:00 112 mm[Hg] [facility] Diastolic blood pressure 2024-01-09 14:51:00 66 mm[Hg] [facility] Heart rate 2024-01-09 14:51:00 78 /min [facility] Body temperature 2024-01-09 14:51:00 36.56 Ca [facility] Respiratory rate 2024-01-09 14:51:00 18 /min [facility] Body height 2024-01-09 14:51:00 152.4 cm [facility] Body weight 2024-01-09 14:51:00 75.025 kg [facility] BMI 2024-01-09 14:51:00 32.30 kg/m2 [facility] Oxygen saturation in Arterial blood by Pulse oximetry 2024-01-09 14:51:00 100 /min [facility] Systolic blood pressure 2024-01-02 16:52:00 121 mm[Hg] [facility] Diastolic blood pressure 2024-01-02 16:52:00 71 mm[Hg] [facility] Heart rate 2024-01-02 16:52:00 92 /min [facility] Body temperature 2024-01-02 16:52:00 36.5 Ca [facility] Respiratory rate 2024-01-02 16:52:00 17 /min [facility] Body height 2024-01-02 16:52:00 152.4 cm [facility] Body weight 2024-01-02 16:52:00 74.118 kg [facility] BMI 2024-01-02 16:52:00 31.91 kg/m2 [facility] Systolic blood pressure 2023-12-19 15:49:00 109 mm[Hg] [facility] Diastolic blood pressure 2023-12-19 15:49:00 72 mm[Hg] [facility] Heart rate 2023-12-19 15:49:00 79 /min [facility] Body temperature 2023-12-19 15:49:00 36.56 Ca [facility] Respiratory rate 2023-12-19 15:49:00 18 /min [facility] Body height 2023-12-19 15:49:00 152.4 cm [facility] Body weight 2023-12-19 15:49:00 74.844 kg [facility] BMI 2023-12-19 15:49:00 32.22 kg/m2 [facility] Oxygen saturation in Arterial blood by Pulse oximetry 2023-12-19 15:49:00 98 /min [facility] Systolic blood pressure 2023-11-28 19:03:00 101 mm[Hg] [facility] Diastolic blood pressure 2023-11-28 19:03:00 66 mm[Hg] [facility] Heart rate 2023-11-28 19:03:00 64 /min [facility] Body temperature 2023-11-28 19:03:00 37 Ca [facility] Respiratory rate 2023-11-28 19:03:00 18 /min [facility] Body height 2023-11-28 19:03:00 152.4 cm [facility] Body weight 2023-11-28 19:03:00 76.204 kg [facility] BMI 2023-11-28 19:03:00 32.81 kg/m2 [facility] Systolic blood pressure 2023-10-30 14:54:00 113 mm[Hg] [facility] Diastolic blood pressure 2023-10-30 14:54:00 74 mm[Hg] [facility] Heart rate 2023-10-30 14:54:00 78 /min [facility] Body temperature 2023-10-30 14:54:00 36.89 Ca [facility] Respiratory rate 2023-10-30 14:54:00 18 /min [facility] Body height 2023-10-30 14:54:00 152.4 cm [facility] Body weight 2023-10-30 14:54:00 73.936 kg [facility] BMI 2023-10-30 14:54:00 31.83 kg/m2 [facility] Systolic blood pressure 2023-10-19 15:17:00 112 mm[Hg] [facility] Diastolic blood pressure 2023-10-19 15:17:00 68 mm[Hg] [facility] Heart rate 2023-10-19 15:17:00 77 /min [facility] Body temperature 2023-10-19 15:17:00 36.17 Ca [facility] Respiratory rate 2023-10-19 15:17:00 18 /min [facility] Body weight 2023-10-19 15:17:00 77.747 kg [facility] BMI 2023-10-19 15:17:00 32.39 kg/m2 [facility] Systolic blood pressure 2023-10-17 15:09:00 118 mm[Hg] [facility] Diastolic blood pressure 2023-10-17 15:09:00 73 mm[Hg] [facility] Heart rate 2023-10-17 15:09:00 86 /min [facility] Body height 2023-10-17 15:09:00 154.9 cm [facility] Body weight 2023-10-17 15:09:00 77.474 kg [facility] BMI 2023-10-17 15:09:00 32.27 kg/m2 [facility] Oxygen saturation in Arterial blood by Pulse oximetry 2023-10-17 15:09:00 100 /min [facility] Systolic blood pressure 2023-10-10 13:59:00 117 mm[Hg] [facility] Diastolic blood pressure 2023-10-10 13:59:00 65 mm[Hg] [facility] Heart rate 2023-10-10 13:59:00 68 /min [facility] Body temperature 2023-10-10 13:59:00 36.56 Ca [facility] Respiratory rate 2023-10-10 13:59:00 18 /min [facility] Body height 2023-10-10 13:59:00 154.9 cm [facility] Body weight 2023-10-10 13:59:00 78.336 kg [facility] BMI 2023-10-10 13:59:00 32.63 kg/m2 [facility] Systolic blood pressure 2023-09-12 20:14:00 113 mm[Hg] [facility] Diastolic blood pressure 2023-09-12 20:14:00 76 mm[Hg] [facility] Heart rate 2023-09-12 20:14:00 85 /min [facility] Body temperature 2023-09-12 20:14:00 36.61 Ca [facility] Respiratory rate 2023-09-12 20:14:00 18 /min [facility] Body height 2023-09-12 20:14:00 154.9 cm [facility] Body weight 2023-09-12 20:14:00 79.096 kg [facility] BMI 2023-09-12 20:14:00 32.95 kg/m2 [facility] Body temperature 2023-09-06 17:46:00 36.06 Ca [facility] Systolic blood pressure 2023-08-23 15:26:00 110 mm[Hg] [facility] Diastolic blood pressure 2023-08-23 15:26:00 64 mm[Hg] [facility] Heart rate 2023-08-23 15:26:00 68 /min [facility] Body temperature 2023-08-23 15:26:00 36.56 Ca [facility] Body height 2023-08-23 15:26:00 154.9 cm [facility] Body weight 2023-08-23 15:26:00 79.198 kg [facility] BMI 2023-08-23 15:26:00 32.99 kg/m2 [facility] Systolic blood pressure 2023-07-19 15:43:00 136 mm[Hg] [facility] Diastolic blood pressure 2023-07-19 15:43:00 77 mm[Hg] [facility] Heart rate 2023-07-19 15:43:00 97 /min [facility] Body temperature 2023-07-19 15:43:00 36.61 Ca [facility] Respiratory rate 2023-07-19 15:43:00 19 /min [facility] Body height 2023-07-19 15:43:00 154.9 cm [facility] Body weight 2023-07-19 15:43:00 82.691 kg [facility] BMI 2023-07-19 15:43:00 34.45 kg/m2 [facility] Oxygen saturation in Arterial blood by Pulse oximetry 2023-07-19 15:43:00 99 /min [facility] Systolic blood pressure 2023-07-18 13:37:00 120 mm[Hg] [facility] Diastolic blood pressure 2023-07-18 13:37:00 79 mm[Hg] [facility] Heart rate 2023-07-18 13:36:00 95 /min [facility] Body temperature 2023-07-18 13:36:00 36.39 Ca [facility] Respiratory rate 2023-07-18 13:36:00 18 /min [facility] Body height 2023-07-18 13:36:00 154.9 cm [facility] Body weight 2023-07-18 13:36:00 81.784 kg [facility] BMI 2023-07-18 13:36:00 34.07 kg/m2 [facility] Systolic blood pressure 2023-07-14 00:36:00 137 mm[Hg] [facility] Diastolic blood pressure 2023-07-14 00:36:00 92 mm[Hg] [facility] Heart rate 2023-07-14 00:36:00 97 /min [facility] Body temperature 2023-07-14 00:36:00 37.22 Ca [facility] Respiratory rate 2023-07-14 00:36:00 18 /min [facility] Body height 2023-07-14 00:36:00 154.9 cm [facility] Body weight 2023-07-14 00:36:00 83.19 kg [facility] BMI 2023-07-14 00:36:00 34.65 kg/m2 [facility] Oxygen saturation in Arterial blood by Pulse oximetry 2023-07-14 00:36:00 100 /min [facility] Systolic blood pressure 2023-04-25 17:58:00 115 mm[Hg] [facility] Diastolic blood pressure 2023-04-25 17:58:00 77 mm[Hg] [facility] Heart rate 2023-04-25 17:58:00 89 /min [facility] Body temperature 2023-04-25 17:58:00 36.28 Ca [facility] Respiratory rate 2023-04-25 17:58:00 17 /min [facility] Body height 2023-04-25 17:58:00 154.9 cm [facility] Body weight 2023-04-25 17:58:00 79.017 kg [facility] BMI 2023-04-25 17:58:00 32.91 kg/m2 [facility] Systolic blood pressure 2023-04-18 13:27:00 125 mm[Hg] [facility] Diastolic blood pressure 2023-04-18 13:27:00 82 mm[Hg] [facility] Heart rate 2023-04-18 13:27:00 89 /min [facility] Respiratory rate 2023-04-18 13:27:00 20 /min [facility] Body height 2023-04-18 13:27:00 154.9 cm [facility] Body weight 2023-04-18 13:27:00 79.833 kg [facility] BMI 2023-04-18 13:27:00 33.25 kg/m2 [facility] Oxygen saturation in Arterial blood by Pulse oximetry 2023-04-18 13:27:00 99 /min [facility] Systolic blood pressure 2023-02-28 14:09:00 128 mm[Hg] [facility] Diastolic blood pressure 2023-02-28 14:09:00 82 mm[Hg] [facility] Heart rate 2023-02-28 14:09:00 86 /min [facility] Body height 2023-02-28 14:09:00 154.9 cm [facility] Body weight 2023-02-28 14:09:00 78.699 kg [facility] BMI 2023-02-28 14:09:00 32.78 kg/m2 [facility] Oxygen saturation in Arterial blood by Pulse oximetry 2023-02-28 14:09:00 96 /min [facility] Systolic blood pressure 2023-01-31 18:07:00 92 mm[Hg] [facility] Diastolic blood pressure 2023-01-31 18:07:00 69 mm[Hg] [facility] Heart rate 2023-01-31 18:07:00 82 /min [facility] Body temperature 2023-01-31 18:07:00 36.5 Ca [facility] Respiratory rate 2023-01-31 18:07:00 20 /min [facility] Body height 2023-01-31 18:07:00 154.9 cm [facility] Body weight 2023-01-31 18:07:00 75.978 kg [facility] BMI 2023-01-31 18:07:00 31.65 kg/m2 [facility] Systolic blood pressure 2022-11-08 15:40:00 114 mm[Hg] [facility] Diastolic blood pressure 2022-11-08 15:40:00 74 mm[Hg] [facility] Heart rate 2022-11-08 15:40:00 79 /min [facility] Body temperature 2022-11-08 15:40:00 36.33 Ca [facility] Respiratory rate 2022-11-08 15:40:00 18 /min [facility] Body weight 2022-11-08 15:40:00 75.569 kg [facility] BMI 2022-11-08 15:40:00 31.48 kg/m2 [facility] Systolic blood pressure 2022-08-11 15:59:00 129 mm[Hg] [facility] Diastolic blood pressure 2022-08-11 15:59:00 81 mm[Hg] [facility] Heart rate 2022-08-11 15:59:00 79 /min [facility] Body temperature 2022-08-11 15:59:00 36.11 Ca [facility] Respiratory rate 2022-08-11 15:59:00 18 /min [facility] Body height 2022-08-11 15:59:00 154.9 cm [facility] Body weight 2022-08-11 15:59:00 73.71 kg [facility] BMI 2022-08-11 15:59:00 30.70 kg/m2 [facility] Systolic blood pressure 2022-08-09 14:47:00 134 mm[Hg] [facility] Diastolic blood pressure 2022-08-09 14:47:00 86 mm[Hg] [facility] Heart rate 2022-08-09 14:47:00 87 /min [facility] Body temperature 2022-08-09 14:47:00 36.5 Ca [facility] Respiratory rate 2022-08-09 14:47:00 20 /min [facility] Body height 2022-08-09 14:47:00 154.9 cm [facility] Body weight 2022-08-09 14:47:00 72.303 kg [facility] BMI 2022-08-09 14:47:00 30.12 kg/m2 [facility] Systolic blood pressure 2022-05-17 14:21:00 125 mm[Hg] [facility] Diastolic blood pressure 2022-05-17 14:21:00 86 mm[Hg] [facility] Heart rate 2022-05-17 14:21:00 77 /min [facility] Body temperature 2022-05-17 14:21:00 36.11 Ca [facility] Respiratory rate 2022-05-17 14:21:00 17 /min [facility] Body height 2022-05-17 14:21:00 154.9 cm [facility] Body weight 2022-05-17 14:21:00 77.168 kg [facility] BMI 2022-05-17 14:21:00 32.14 kg/m2 [facility] Systolic blood pressure 2022-02-14 14:43:00 134 mm[Hg] [facility] Diastolic blood pressure 2022-02-14 14:43:00 98 mm[Hg] [facility] Heart rate 2022-02-14 14:42:00 96 /min [facility] Body temperature 2022-02-14 14:42:00 36.11 Ca [facility] Respiratory rate 2022-02-14 14:42:00 18 /min [facility] Body height 2022-02-14 14:42:00 154.9 cm [facility] Body weight 2022-02-14 14:42:00 77.168 kg [facility] BMI 2022-02-14 14:42:00 32.14 kg/m2 [facility] Systolic blood pressure 2021-12-24 15:47:00 126 mm[Hg] [facility] Diastolic blood pressure 2021-12-24 15:47:00 86 mm[Hg] [facility] Heart rate 2021-12-24 15:45:00 96 /min [facility] Body temperature 2021-12-24 15:45:00 36.22 Ca [facility] Respiratory rate 2021-12-24 15:45:00 18 /min [facility] Body height 2021-12-24 15:45:00 154.9 cm [facility] Body weight 2021-12-24 15:45:00 77.157 kg [facility] BMI 2021-12-24 15:45:00 32.14 kg/m2 [facility] Oxygen saturation in Arterial blood by Pulse oximetry 2021-12-24 15:45:00 99 /min [facility] Body weight 2021-04-29 13:26:00 79.2 kg [facility] BMI 2021-04-29 13:26:00 31.94 kg/m2 [facility] Body weight 2021-03-02 18:34:00 63.5 kg [facility] BMI 2021-03-02 18:34:00 26.45 kg/m2 [facility] height 2020-10-22 11:00:00 60.00 [in_i] [facility] weight 2020-10-22 11:00:00 175.6 [lb_av] [facility] temperature 2020-10-22 11:00:00 97.9 [degF] [facility] bmi 2020-10-22 11:00:00 34.29 kg/m2 [facility] oximetry 2020-10-22 11:00:00 97 % [facility] respiratory rate 2020-10-22 11:00:00 16 /min [facility] blood pressure systolic 2020-10-22 11:00:00 125 mm[Hg] [facility] blood pressure diastolic 2020-10-22 11:00:00 84 mm[Hg] [facility] height 2020-09-14 15:00:00 60.00 [in_i] [facility] weight 2020-09-14 15:00:00 178.8 [lb_av] [facility] temperature 2020-09-14 15:00:00 98.0 [degF] [facility] bmi 2020-09-14 15:00:00 34.92 kg/m2 [facility] oximetry 2020-09-14 15:00:00 98 % [facility] respiratory rate 2020-09-14 15:00:00 16 /min [facility] blood pressure systolic 2020-09-14 15:00:00 139 mm[Hg] [facility] blood pressure diastolic 2020-09-14 15:00:00 88 mm[Hg] [facility] height 2020-09-03 08:20:00 60.00 [in_i] [facility] weight 2020-09-03 08:20:00 179 [lb_av] [facility] temperature 2020-09-03 08:20:00 97.6 [degF] [facility] bmi 2020-09-03 08:20:00 34.95 kg/m2 [facility] BP Systolic 2018-05-01 10:10:00 109 mm[Hg] [facility] BP Diastolic 2018-05-01 10:10:00 76 mm[Hg] [facility] Height 2018-05-01 10:10:00 154 cm [facility] Weight 2018-05-01 10:10:00 67.7 kg [facility] Body Mass Index Calculated 2018-05-01 10:10:00 28.55 kg/m2 [facility] Temperature 2018-05-01 10:10:00 96.5 [degF] [facility] Heart Rate 2018-05-01 10:10:00 91 /min [facility] Head Circumference 2018-05-01 10:10:00 54.7 cm [facility] Procedures Procedure Date / Time Performed Performing Clinician Source CBC WITH DIFF 2024-06-22 14:40:00 Toshia Crowley [facility] MAGNESIUM 2024-06-21 11:23:00 Toshia Crowley [facility] BASIC METABOLIC PANEL (NA, K, CL, CO2, GLUCOSE, BUN, CREATININE, CA) 2024-06-21 11:23:00 Keo [facility] CBC WITH DIFF 2024-06-21 11:23:00 Keo [facility] CBC WITHOUT DIFF 2024-06-21 01:47:[address] [facility] PREPARE PACKED RBC 2024-06-20 20:22:52 Filemon Hernandez i [facility] CBC WITH DIFF 2024-06-20 18:22:00 Keo [facility] PREPARE PACKED RBC 2024-06-20 14:08:52 Toshia [facility] MAGNESIUM 2024-06-20 10:50:00 Filemon Cantrell [facility] BASIC METABOLIC PANEL (NA, K, CL, CO2, GLUCOSE, BUN, CREATININE, CA) 2024-06-20 10:50:00 [facility] 2024-06-20 10:50:00 Darien Cor[facility] LACTIC ACID WHOLE BLOOD 2024-06-20 10:50:00 Filemon Mojica [facility] CT ANGIOGRAM ABDOMEN/PELVIS 2024-06-20 03:25:34 Holger Souza [facility] PROTHROMBIN TIME / INR 2024-06-20 02:50:00 Papa Souza [facility] ACTIVATED PARTIAL THRMPLAS MARISOL 2024-06-20 02:50:00 Holger Souza [facility] HB ABO GROUPING 2024-06-20 02:50:00 [facility]-20 02:11:00 Apolinar Sanchez [facility] POCT TEST 2024-06-20 02:11:00 Apolinar Sanchez [facility] LIPASE 2024-06-20 02:03:00 [facility] TROPONIN I 2024-06-20 02:03:[address] [facility] COMP. METABOLIC PANEL (22061) 2024-06-20 02:03:00 aLura [facility] CBC WITH DIFF 2024-06-20 02:03:00 Apolinar Sanchez [facility] LACTIC ACID WHOLE BLOOD 2024-06-17 07:38:00 Denice Ware [facility] CT ABDOMEN PELVIS WO CONTRAST 2024-06-17 07:29:04 Angelo Ware [facility] POCT TEST 2024-06-17 06:00:00 Angelo Ware [facility] COMP. METABOLIC PANEL (05758) 2024-06-17 05:57:00 Angelo Ware [facility] CBC WITH DIFF 2024-06-17 05:57:00 Angelo Ware [facility] URINALYSIS 2024-06-17 05:57:00 Angelo [facility] CBC (H/H, RBC, INDICES,$WBC, PLT)-Q 2024-05-27 14:28:00 Stefan De Souza [facility] TRANSTHORACIC ECHO (TTE) COMPLETE W/ CONTRAST 2024-04-09 19:21:00 Jamila Wheeler [facility] CT ABDOMEN PELVIS WO CONTRAST 2024-04-09 18:28:20 Jamila Wheeler [facility] XR CHEST 2 VW 2024-04-09 18:22:01 Jamila Gatica [facility] HB ABO GROUPING 2024-04-09 18:12:00 Jamila Gatica [facility] AMYLASE 2024-04-09 18:05:00 Jamila Gatica [facility] LIPASE 2024-04-09 18:05:00 Jamila Gatica [facility] TEST, SERUM 2024-04-09 18:05:00 Jamila Tripathi [facility] THYROID STIMULATING HORMONE 2024-04-09 18:05:00 Jamila Wheeler [facility] COMP. METABOLIC PANEL (34350) 2024-04-09 18:05:00 Jamila Wheeler [facility] LIPID PANEL (25445)(TOTAL CHOLESTEROL, TRIGLYCERIDES, HDL) 2024-04-09 18:05:00 Jamila Wheeler [facility] CBC WITH DIFF 2024-04-09 18:05:00 Jamila Gatica [facility] GLYCOSYLATED HEMOGLOBIN (A1C) 2024-04-09 18:05:00 Jamila Wheeler [facility] PROTHROMBIN TIME / INR 2024-04-09 18:05:00 Jamila Yost [facility] ACTIVATED PARTIAL THRMPLAS MARISOL 2024-04-09 18:05:00 Jamila Wheeler [facility] URINALYSIS 2024-04-09 18:05:00 Jamila Gatica [facility] TOXOPLASMA IGG ANTIBODY 2024-04-09 18:05:00 Barbra llJamila Urbano [facility] EBV VIRAL CAPSID IGG ANTIBODY 2024-04-09 18:05:00 Jamila Wheeler [facility] CYTOMEGALOVIRUS ANTIBODY IGG 2024-04-09 18:05:00 Jamila Wheeler [facility] VZV ANTIBODY SCREEN 2024-04-09 18:05:00 Jamila Mccallum [facility] HEPATITIS B SURFACE ANTIBODY 2024-04-09 18:05:00 Jamila Wheeler [facility] HEPATITIS B SURFACE ANTIGEN 2024-04-09 18:05:00 Jamila Wheeler [facility] HCV ANTIBODY 2024-04-09 18:05:00 Jamila Gatica [facility] HBC ANTIBODY (IGM & IGG) 2024-04-09 18:05:00 Jamila Rogel [facility] URINE CULTURE 2024-04-09 18:05:00 Obed Narayan [facility] HAV ANTIBODY (IGG AND IGM) 2024-04-09 18:05:00 Jamila Webster [facility] HSV 1 AND 2 GLYCOPROTEIN G IGG 2024-04-09 18:05:00 Jamila Wheeler [facility] HIV 1/2 AG-AB WITH REFLEX 2024-04-09 18:05:00 Jamila Murray [facility] SYPHILIS IGG/IGM 2024-04-09 18:05:00 Jamila Ho do [facility] POCT TEST 2024-02-02 09:00:00 Wei Sherman [facility] LIPASE 2024-02-02 08:59:[address] [facility] TROPONIN I 2024-02-02 08:59:[address] [facility] COMP. METABOLIC PANEL ([id number]) 2024-02-02 08:59:00 Thierno Sherman [facility] CBC WITH DIFF 2024-02-02 08:59:00 Thierno [facility] N-TERMINAL PRO-BNP 2024-02-02 08:59:00 Thierno Sherman [facility] URINE DRUG (IMMUNOASSAY) - COMPREHENSIVE DRUG SCREEN W/O REFLEX 2024-02-02 08:59:00 Thierno Sherman [facility] NOTICE OF PRIVACY PRACTICES 2024-02-02 08:43:16 Doctor Unassigned, Animas [facility] CONSENT/REFUSAL FOR DIAGNOSIS AND TREATMENT 2024-02-02 08:42:33 Doctor Unassigned, Animas [facility] LUBNA,POST-VOID RES,US,NON-IMAGING 2024-01-09 14:54:00 Obed Narayan [facility] POCT URINALYSIS 2023-12-19 16:03:00 Obed [facility] INSURANCE CORRESPONDENCE 2023-12-18 06:01:00 Shivam alex Unassigned, Animas [facility] CT THORAX WO CONTRAST 2023-12-05 17:07:00 Kade Liu [facility] PULMONARY FUNCTION TEST (RESULTS) 2023-11-22 13:49:09 Kade Liu [facility] INSURANCE CORRESPONDENCE 2023-11-10 06:01:00 Shivam alex Unassigned, Animas [facility] PATIENT QUESTIONNAIRE 2023-10-30 06:01:00 Doctor Unassigned, Animas [facility] LUBNA,POST-VOID RES,US,NON-IMAGING 2023-10-30 00:00:00 Obed Narayan [facility] POCT URINALYSIS W/O SPECIFIC GRAVITY 2023-10-30 00:00:00 Obed Narayan [facility] FLU VACC ([id number]), 6 MO-64 YRS, .5ML, IM, QUAD (FLUCELVAX) 2023-10-17 15:12:53 Kade Liu [facility] REFERRAL- REQUEST/RESPONSE 2023-09-19 06:01:00 Mark mccollum Unassigned, Animas [facility] GARDASIL 9 (HPV 9V) VACCINE 2023-09-06 17:46:06 Alberta Hurst [facility] CONSENT/REFUSAL FOR DIAGNOSIS AND TREATMENT 2023-08-23 15:06:26 Doctor Unassigned, Animas [facility] ASSIGNMENT OF BENEFITS 2023-07-14 02:42:42 Docto r Unassigned, Animas [facility] POCT TEST 2023-07-14 01:23:00 Angelo Ware [facility] URINALYSIS 2023-07-14 01:21:00 Angelo [facility] CONSENT/REFUSAL FOR DIAGNOSIS AND TREATMENT 2023-07-14 00:29:26 Doctor Unassigned, Animas [facility] GARDASIL 9 (HPV 9V) VACCINE 2023-04-25 18:08:38 Alberta Hurst [facility] PHYSICIAN ORDERS 2023-04-24 05:01:00 Doctor Unas signed, Animas [facility] AUTHORIZATION FOR RELEASE OF PHI 2023-03-31 05:01:00 Doctor Unassigned, Animas [facility] INSURANCE CORRESPONDENCE 2023-03-02 05:01:00 Doc tor Unassigned, Animas [facility] GARDASIL 9 (HPV 9V) VACCINE 2023-01-31 18:52:10 Alberta Hurst [facility] GC & CHLAMYDIA AMPLIFIED ASSAY 2023-01-31 18:44:00 Alberta Hurst [facility] GALV ONLY - VAGINAL PATHOGENS BY NUCLEIC ACID TESTING 2023-01-31 18:44:00 Alberta Hurst [facility] HIV 1/2 AG-AB WITH REFLEX 2023-01-31 18:44:00 Alberta Hurst [facility] HIGH RISK HPV-THIN PREP 2023-01-31 18:44:00 Alberta Hurst [facility] TRICHOMONAS AMPLIFIED ASSAY 2023-01-31 18:44:00 Alberta Hurst [facility] PAP SMEAR-LIQUID BASED-CP 2023-01-31 18:44:00 Alberta Hurst [facility] SYPHILIS IGG/IGM 2023-01-31 18:44:00 Anabelle Hurst [facility] FLU VACC (), 6 MO-64 YRS, .5ML, IM, QUAD (FLUCELVAX) 2023-01-31 18:26:50 Alberta Hurst [facility] REFERRAL- REQUEST/RESPONSE 2023-01-27 05:01:00 Mark mccollum Unassigned, Animas [facility] PATIENT QUESTIONNAIRE 2023-01-04 06:01:00 Doctor Unassigned, Animas [facility] REFERRAL- REQUEST/RESPONSE 2022-12-02 06:01:00 D chun Unassigned, Animas [facility] US RETROPERITONEAL COMPLETE 2022-08-29 18:32:47 Precious Verdugo [facility] PHOSPHORUS 2022-08-17 15:12:00 [facility]-17 15:12:00 Mick [facility] BASIC METABOLIC PANEL (NA, K, CL, CO2, GLUCOSE, BUN, CREATININE, CA) 2022-08-17 15:12:00 Mick [facility] CBC WITH DIFF 2022-08-17 15:12:00 [facility] 2022-08-17 15:12:00 [facility] PROTEIN CREAT RATIO URINE RANDOM 2022-08-17 15:12:00 [facility] 1/2 AG-AB WITH REFLEX 2022-08-17 15:12:00 Jennyfer Barton [facility] CONSENT/REFUSAL FOR DIAGNOSIS AND TREATMENT 2022-08-11 14:44:13 Doctor Unassigned, Animas [facility] CT THORAX WO CONTRAST 2022-01-05 14:13:55 Sabrina Wooten [facility] FERRITIN SERUM 2021-12-24 16:28:[address] [facility] TOTAL IRON BINDING CAPACITY 2021-12-24 16:28:00 Sabrina Wooten Rp [facility] COMP. METABOLIC PANEL ([id number]) 2021-12-24 16:28:00 Sabrina Wooten Rp [facility] CBC WITH DIFF 2021-12-24 16:28:00 Sabrina Wooten Rp [facility] INSURANCE CORRESPONDENCE 2021-12-02 06:01:00 Doc tor Unassigned, Animas [facility] EKG w/Rhythm Strip 2018-04-17 00:00:00 [facility] [[facility]] CBC (INCLUDES DIFF/PLT) 2018-04-17 00:00:00 [facility] [[facility]] CMP W/EGFR 2018-04-17 00:00:00 [facility] [Q] EVEROLIMUS, BLOOD 2018-04-17 00:00:00 [facility] [[facility]] LIPID PANEL 2018-04-17 00:00:00 [facility] [[facility]] PHOSPHATE ( PHOSPHORUS) 2018-04-17 00:00:00 [facility] [[facility]] PTH, INTACT (WITHOUT CALCIUM) 2018-04-17 00:00:00 [facility] [[facility]] LAMOTRIGINE 2018-04-17 00:00:00 [facility] MRI Brain w/wo contrast [id number] 2018-04-17 00:00:[address] [facility] [address] Abdomen w/wo contrast [id number] 2018-04-17 00:00:00 [facility] Encounters Start Date/Time End Date/Time Encounter Type Admission Type Attending Clinicians Care Facility Care Department Encounter ID Source 2021-12-08 12:12:18 Outpatient Bates, Na STLMLC STLMLC [id number] [facility] 2021-12-08 12:11:19 Outpatient Bates, Na STLMLC STLMLC [id number] [facility] 2021-12-08 12:01:13 Outpatient Bates, Na STLMLC STLMLC [id number] [facility] 2021-12-08 12:00:44 Outpatient Bates, Na STLMLC STLMLC [id number] [facility] 2021-12-08 12:00:24 Outpatient Bates, Na STLMLC STLMLC [id number] [facility] 2021-12-08 11:57:53 Outpatient Bates, Na STLMLC STLMLC [id number] [facility] 2021-12-08 11:50:13 Outpatient Bates, Na STLMLC STLMLC [id number] [facility] 2021-12-08 11:44:48 Outpatient Bates, Na STLMLC STLMLC [id number] [facility] 2021-12-08 11:44:02 Outpatient Bates, Na STLMLC STLMLC [id number] [facility] 2021-12-08 11:42:40 Outpatient Shantelle [facility] [id number] [facility] 2021-12-08 11:10:16 Outpatient Shantelle Bates [facility] [id number] [facility] 2021-12-08 11:07:32 Outpatient Shantelle Bates [facility] [id number] [facility] 2021-09-13 23:49:41 Outpatient JOSHUA BARROSO GABRIEL [facility] GICami [id number] [facility] 2021-09-13 04:00:36 Emergency [facility] [id number] [facility] 2021-09-12 09:20:27 Emergency [facility] [id number] [facility] 2021-09-11 12:17:27 Emergency [facility] [id number] [facility] 2021-09-10 06:09:58 Emergency [facility] [id number] [facility] 2021-09-09 19:00:01 Emergency [facility] [id number] [facility] 2024-08-15 16:30:00 2024-08-15 16:30:00 Outpatient PRINCESS BRANDT [facility] [id number] [facility] 2024-06-19 20:53:00 2024-06-22 14:57:00 Inpatient JULITA PATEL PATRICK [facility] [id number] [facility] 2024-06-19 20:53:00 2024-06-22 14:57:00 Hospital Encounter Apolinar Sanchez, Julita Melendez Sunil [facility] 1.2.840.114 350.1.13.10 4.2.7.2.686 [id number] [facility] 2024-06-18 08:30:00 2024-06-18 08:55:17 Outpatient R ALBERTA HURST [facility] [id number] [facility] 2024-06-18 08:30:00 2024-06-18 08:55:17 [facility] Hurst C Visit, José Luis-[facility] Nurse [facility] 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 [facility] MATERNAL & CHILD [facility]ALTH [facility] 1..840.114 350.1.13.10 4.2.7.2.686 [id number] [facility] 2024-06-17 00:23:00 2024-06-17 03:34:00 Emergency X ANGELO WARE WAKILI [facility] ERT [id number] [facility] 2024-06-17 00:23:00 2024-06-17 03:34:00 Emergency Angelo Ware [facility] 1.840.114 350.1.13.10 4.2.7.2.686 [id number] [facility] 2024-06-12 10:58:22 2024-06-12 10:58:22 Outpatient [facility] [id number] Hi Bañuelos 2024-06-11 11:05:17 2024-06-11 11:05:17 Outpatient [facility] [id number] Hi Bañuelos 2024-06-10 09:00:00 2024-06-10 09:36:16 Outpatient R STEFAN DE SOUZA SIBY [facility] [id number] [facility] 2024-06-10 09:00:00 2024-06-10 09:36:16 Office Visit Stefan De Souza [facility] .840.114 350.1.13.10 4.2.7.2.686 [id number] [facility] 2024-05-28 10:40:24 2024-05-28 10:40:24 Outpatient [facility] [id number] Hi Bañuelos 2024-05-27 00:00:00 2024-05-27 18:28:13 Orders Only [facility] 1.2.840.114 350.1.13.10 4.2.7.2.686 [id number] [facility] 2024-05-24 00:00:00 2024-05-27 08:15:21 [facility] [place] [facility] 1.2840.114 350.1.13.10 4.2.7.2.686 [id number] [facility] 2024-05-14 08:33:50 2024-05-14 08:33:50 Outpatient [facility] [id number] Hi Bañuelos 2024-05-13 14:33:00 2024-05-13 23:59:00 Hospital Encounter [facility] 1.2840.114 350.1.13.10 4.2.7.2.686 [id number] [facility] 2024-05-13 00:00:00 2024-05-13 23:59:00 Outpatient R [facility] [id number] [facility] 2024-05-13 00:00:00 2024-05-13 14:34:49 Letter (Out) [facility] 1.2840.114 350.1.13.10 4.2.7.2.686 [id number] [facility] 2024-05-13 00:00:00 2024-05-13 13:40:42 Telephone Tari Rowley [facility] 1.2840.114 350.1.13.10 4.2.7.2.686 [id number] [facility] 2024-05-13 00:00:00 2024-05-13 13:04:08 Telephone Jamila Ho do [facility]PEC [facility]TY [facility] 1.2.840.114 350.1.13.10 4.2.7.2.686 [id number] [facility] 2024-05-09 00:00:00 2024-05-10 08:54:11 Telephone Alberta Hurst [facility] 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 1.2.840.114 350.1.13.10 4.2.7.2.686 [id number] [facility] 2024-05-03 00:00:00 2024-05-08 12:00:50 Telephone Tari Rowley [facility] 1.2.840.114 350.1.13.10 4.2.7.2.686 [id number] [facility] 2024-05-06 00:00:00 2024-05-07 12:37:16 Telephone Jamila Ho do [facility] MULTISPEC IALTY [facility] 1.2840.114 350.1.13.10 4.2.7.2.686 [id number] [facility] 2024-05-06 10:40:00 2024-05-06 11:00:53 Outpatient LISA MENDEZ [facility] [id number] [facility] 2024-05-06 10:40:00 2024-05-06 11:00:53 Nurse Visit Nurse, José Luis [facility] Unknown, Attending Lisa Knapp [facility] 1.2840.114 350.1.13.10 4.2.7.2.686 [id number] [facility] 2024-04-19 00:00:00 2024-04-26 09:30:52 Telephone Jamila Ho do [facility] MULT[facility]PEC [facility] 1.840.114 350.1.13.10 4.2.7.2.686 [id number] [facility] 2024-04-17 13:02:21 2024-04-17 13:02:21 Outpatient [facility] [id number] Hi Garcia Sarmad 2024-04-10 13:13:08 2024-04-10 13:13:08 Outpatient [facility] [id number] Hi Garcia Sarmad 2024-04-10 00:00:00 2024-04-10 00:00:00 Outpatient R JAMILA HO DO [facility] [id number] [facility] 2024-04-09 13:33:12 2024-04-09 23:59:00 Hospital Encounter Jamila Ho do [facility] 1.840.114 350.1.13.10 4.2.7.2.686 [id number] [facility] 2024-04-09 14:30:00 2024-04-09 14:45:00 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, [facility] Jamila Ho do [facility] 1.840.114 350.1.13.10 4.2.7.2.686 [id number] [facility] 2024-04-09 12:58:20 2024-04-09 13:32:00 Hospital Encounter Jamila Ho do [facility] 1.2.840.114 350.1.13.10 4.2.7.2.686 [id number] [facility] 2024-04-09 12:58:03 2024-04-09 13:32:00 Hospital Encounter Jamila Ho do [facility] 1.2.840.114 350.1.13.10 4.2.7.2.686 [id number] [facility] 2024-04-09 11:30:00 2024-04-09 12:00:00 Office Visit Transplant, Kidney Surgery Alma Nguyen [facility]TY [facility] 1.2.840.114 350.1.13.10 4.2.7.2.686 [id number] [facility] 2024-04-09 10:30:00 2024-04-09 11:15:00 Manager Interventional Visit Manager Interventional, Transplant Alma Nguyen [facility]ULTISPEC [facility]ALTY [facility] 1.2840.114 350.1.13.10 4.2.7.2.686 [id number] [facility] 2024-04-09 10:00:00 2024-04-09 10:30:00 Case Management Worker, Transplant Social Alma Nguyen [facility]ULT[facility]PEC [facility]TY [facility] 1.2.840.114 350.1.13.10 4.2.7.2.686 [id number] [facility] 2024-04-09 09:00:00 2024-04-09 09:15:00 Office Visit Jamila Ho do, Muhammad A [facility]ULTISPEC [facility]TY [facility] 1.2840.114 350.1.13.10 4.2.7.2.686 [id number] [facility] 2024-04-09 09:00:00 2024-04-09 09:00:00 Outpatient R PATRICK ALMA [facility] [id number] [facility] 2024-04-09 08:00:00 2024-04-09 08:45:00 Nurse Visit Renal, Transplant Class Alma Nguyen [facility] 1..840.114 350.1.13.10 4.2.7.2.686 [id number] [facility] 2024-04-05 00:00:00 2024-04-05 15:23:43 Telephone Junie Alatorre [facility] 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 [facility] MAT[facility]NAL & CHILD [facility] 1..840.114 350.1.13.10 4.2.7.2.686 [id number] [facility] 2024-03-27 09:01:41 2024-03-27 09:01:41 Outpatient [facility] [id number] Hi Bañuelos 2024-03-26 09:00:00 2024-03-26 09:44:45 Outpatient R ALBERTA HURST [facility] [id number] [facility] 2024-03-26 09:00:00 2024-03-26 09:44:45 Office Visit Junie Alatorre Damilola C [facility] 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 [facility] & CHILD [facility] 1..840.114 350.1.13.10 4.2.7.2.686 [id number] [facility] 2024-03-18 09:58:57 2024-03-18 09:58:57 Outpatient SFA SFA [id number] Hi Garcia Sarmad 2024-03-14 14:58:26 2024-03-14 14:58:26 Outpatient SFA SFA [id number] Hi Garcia Sarmad 2024-03-01 08:30:00 2024-03-01 09:00:00 Office Visit Kati Perry [facility] 1.114 350.1.13.10 4.2.7.2.686 [id number] [facility] 2024-03-01 08:30:00 2024-03-01 08:30:00 Outpatient KATI TORRES [facility] [id number] [facility] 2024-03-01 00:00:00 2024-03-01 00:00:00 Case Management Georgia dougherty, Jamila Haines [facility] 1..114 350.1.13.10 4.2.7.2.686 [id number] [facility] 2024-02-20 13:00:23 2024-02-20 13:00:23 Outpatient SFA SFA [id number] Hi Bañuelos 2024-02-17 08:56:00 2024-02-17 23:59:00 Hospital Encounter PatrickAlma leong [facility] 1..114 350.1.13.10 4.2.7.2.686 [id number] [facility] 2024-02-17 00:00:00 2024-02-17 23:59:00 Outpatient R ALMA NGUYEN [facility] ACO [id number] [facility] 2024-02-17 00:00:00 2024-02-17 00:00:00 Letter (Out) Alma Nguyen [facility] 1..114 350.1.13.10 4.2.7.2.686 [id number] [facility] 2024-02-16 09:30:00 2024-02-16 09:30:00 Outpatient KATI TORRES [facility] [id number] [facility] 2024-02-13 00:00:00 2024-02-13 00:00:00 Telephone [facility] 1..840.114 350.1.13.10 4.2.7.2.686 [id number] [facility] 2024-02-07 08:38:48 2024-02-07 08:38:48 Outpatient SFA SFA [id number] Hi Bañuelos 2024-02-06 00:00:00 2024-02-06 00:00:00 Patient Secure Msg Doctor Unassigned, Animas [facility] 1..840.114 350.1.13.10 4.2.7.2.686 [id number] [facility] 2024-02-02 03:45:00 2024-02-02 05:54:00 Emergency X THIERNO SHERMAN [facility] ERT [id number] [facility] 2024-02-02 03:45:00 2024-02-02 05:54:00 Emergency Thierno Sherman [facility] 1.840.114 350.1.13.10 4.2.7.2.686 [id number] [facility] 2024-01-17 13:01:50 2024-01-17 13:01:50 Outpatient SFA SFA [id number] Hi Bañuelos 2024-01-11 11:41:34 2024-01-11 11:41:34 Outpatient SFA SFA [id number] Hi Bañuelos 2024-01-09 09:00:00 2024-01-09 09:30:00 Office Visit Sylvain Obed [facility] 1..840.114 350.1.13.10 4.2.7.2.686 [id number] [facility] 2024-01-09 09:00:2024-01-09 09:00:00 Outpatient R [facility] [id number] [facility] 2024-01-02 11:00:00 2024-01-02 11:04:31 Outpatient R ALBERTA HURST [facility] [id number] [facility] 2024-01-02 11:00:00 2024-01-02 11:04:31 Nurse Visit Visit, Ang-Rmchp Nurse Alberta Hurst [facility] 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 [facility] MATERNAL & CHILD [facility] 1.840.114 350.1.13.10 4.2.7.2.686 [id number] [facility] 2023-12-20 13:04:53 2023-12-20 13:04:53 Outpatient [facility] [id number] Hi Garcia Sarmad 2023-12-19 10:00:00 2023-12-19 11:43:58 Outpatient R OBED NARAYAN [facility] [id number] [facility] 2023-12-19 10:00:00 2023-12-19 11:43:58 [facility] 1.840.114 350.1.13.10 4.2.7.2.686 [id number] [facility] 2023-12-18 00:00:00 2023-12-18 00:00:00 Orders Only Doctor Unassigned, Animas [facility] 1.840.114 350.1.13.10 4.2.7.2.686 [id number] [facility] 2023-12-18 00:00:00 2023-12-18 00:00:00 [facility] 1..840.114 350.1.13.10 4.2.7.2.686 [id number] [facility] 2023-12-14 13:38:37 2023-12-14 13:38:37 Outpatient [facility] [id number] Hi Bañuelos 2023-12-05 10:12:08 2023-12-05 23:59:00 Outpatient R KADE LIU SHIWAN [facility] [id number] [facility] 2023-12-05 10:12:08 2023-12-05 23:59:00 Hospital Encounter Kade Liu [facility] 1.2.840.114 350.1.13.10 4.2.7.2.686 [id number] [facility] 2023-12-01 00:00:00 2023-12-01 00:00:00 Case Management Kade Liu [facility] PROFESSIO NAL BUILDING 1.2.840.114 350.1.13.10 4.2.7.2.686 [id number] [facility] 2023-12-01 00:00:00 2023-12-01 00:00:00 Telephone Kade Liu [facility]ESS[facility] NAL [facility]ILD[facility] 1.2.840.114 350.1.13.10 4.2.7.2.686 [id number] [facility] 2023-11-30 11:26:13 2023-11-30 11:26:13 Outpatient [facility] [id number] Hi Bañuelos 2023-11-29 13:13:44 2023-11-29 13:13:44 Outpatient [facility] [id number] Hi Bañuelos 2023-11-28 13:00:00 2023-11-28 13:44:14 Outpatient R IMAN JONES [facility] [id number] [facility] 2023-11-28 13:00:00 2023-11-28 13:44:14 Office Visit Iman Jones [facility] PROFESSIO NAL BUILDING 1.2.840.114 350.1.13.10 4.2.7.2.686 [id number] [facility] 2023-11-24 08:00:00 2023-11-24 08:00:00 Outpatient R JUNIE ALATORRE [facility] [id number] [facility] 2023-11-23 00:00:00 2023-11-23 00:00:00 Refill Sylvain [facility] MEDICAL OFFICE BUILDING 1.2.840.114 350.1.13.10 4.2.7.2.686 [id number] [id number] [facility] 2023-11-22 08:00:00 2023-11-22 09:00:00 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 Therapist, Kade Chew [facility] 1..840.114 350.1.13.10 4.2.7.2.686 [id number] [id number] [facility] 2023-11-22 08:00:00 2023-11-22 08:00:00 Outpatient R KADE LIU SHITNZaki [facility] [id number] [facility] 2023-11-22 00:00:00 2023-11-22 00:00:00 Orders Only Kade Liu [facility] 1..840.114 350.1.13.10 4.2.7.2.686 [id number] [facility] 2023-11-14 13:00:00 2023-11-14 14:00:00 [facility] 1.2.840.114 350.1.13.10 4.2.7.2.686 [id number] [facility] 2023-11-14 13:00:00 2023-11-14 13:00:00 Outpatient R OBED NARAYAN [facility] [id number] [facility] 2023-11-14 00:00:00 2023-11-14 00:00:00 RefObed Novak [facility] MED[facility] OFF[facility] BUILD[facility] 1.840.114 350.1.13.10 4.2.7.2.686 [id number] [id number] [facility] 2023-11-10 00:00:00 2023-11-10 00:00:00 Orders Only Doctor Unassigned, Animas [facility] 1.840.114 350.1.13.10 4.2.7.2.686 [id number] [facility] 2023-11-09 12:00:00 2023-11-09 12:15:00 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 [facility] Sleep Lab Brandy Whiteside [facility] 1.840.114 350.1.13.10 4.2.7.2.686 [id number] [facility] 2023-11-09 12:00:00 2023-11-09 12:00:00 Outpatient R BRANDY WHITESIDE STRADCNeela [facility] [id number] [facility] 2023-10-31 16:48:23 2023-10-31 16:48:23 Outpatient AFSHAN [facility] [id number] Hi Bañuelos 2023-10-30 09:00:00 2023-10-30 10:10:29 Out[facility] [id number] [facility] 2023-10-30 09:00:00 2023-10-30 10:10:29 [facility] 1.840.114 350.1.13.10 4.2.7.2.686 [id number] [facility] 2023-10-30 00:00:00 2023-10-30 00:00:00 Orders Only Doctor Unassigned, Animas [facility] 1.2840.114 350.1.13.10 4.2.7.2.686 [id number] [facility] 2023-10-25 11:00:00 2023-10-25 11:00:00 Outpatient R CUATE CARDENAS TRINYTRINY CUEVA [facility] [id number] [facility] 2023-10-19 09:30:00 2023-10-19 10:10:00 Outpatient R ALBERTA HURST [facility] [id number] [facility] 2023-10-19 09:30:00 2023-10-19 10:10:00 Office Visit Alberta Hurst [facility] 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 [facility] MATERNAL & CHILD [facility] 1..840.114 350.1.13.10 4.2.7.2.686 [id number] [facility] 2023-10-17 09:30:00 2023-10-17 09:36:20 Outpatient R KADE LIU SHIWAN [facility] [id number] [facility] 2023-10-17 09:30:00 2023-10-17 09:36:20 Office Visit Kade Liu [facility] 1..840.114 350.1.13.10 4.2.7.2.686 [id number] [facility] 2023-10-10 08:00:00 2023-10-10 08:00:00 Nurse Visit Visit, José Luis-Rmchp Nurse Junie Alatorre [facility] 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 [facility] MAT[facility]NAL & CHILD [facility] 1..840.114 350.1.13.10 4.2.7.2.686 [id number] [facility] 2023-10-10 08:00:00 2023-10-10 07:56:08 Outpatient JUNIE ATKINS [facility] [id number] [facility] 2023-09-29 15:30:00 2023-09-29 15:30:00 Outpatient OBED FORTE, OBED [facility] [id number] [facility] 2023-09-26 14:39:09 2023-09-26 14:39:[id number] [id number] Hi Bañuelos 2023-09-20 10:50:20 2023-09-20 10:50:20 Outpatient [facility] [id number] Hi Garcia Sarmad 2023-09-19 10:08:12 2023-09-19 10:08:12 Outpatient [facility] [id number] Hi Garcia Sramad 2023-09-19 00:00:00 2023-09-19 00:00:00 Orders Only Doctor Unassigned, Animas [facility] 1..840.114 350.1.13.10 4.2.7.2.686 [id number] [facility] 2023-09-14 00:00:00 2023-09-14 00:00:00 Telephone Junie Alatorre [facility] 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 [facility] & CHILD [facility] 1..840.114 350.1.13.10 4.2.7.2.686 [id number] [facility] 2023-09-12 15:15:00 2023-09-12 15:30:53 Outpatient R JUNIE ALATORRE [facility] [id number] [facility] 2023-09-12 15:15:00 2023-09-12 15:30:53 Office Visit Junie Alatorre [facility] 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 [facility] & CHILD [facility] 1..840.114 350.1.13.10 4.2.7.2.686 [id number] [facility] 2023-09-09 00:00:00 2023-09-09 00:00:00 Outpatient GC_GCBZW_Ka diyala_S [facility] [id number] [facility] 2023-09-08 00:00:00 2023-09-08 00:00:00 Outpatient GC_GCBZW_Ka diyala_S [facility] [id number] [facility] 2023-09-06 13:00:00 2023-09-06 13:15:00 Nurse Visit Nurse, José Luis Rmchp Exp Cprit ObgyAlberta London [facility] 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 [facility] MAT[facility]NAL & CHILD [facility] 1..840.114 350.1.13.10 4.2.7.2.686 [id number] [facility] 2023-09-06 13:00:00 2023-09-06 13:00:00 Outpatient R ALBERTA HURST [facility] [id number] [facility] 2023-08-23 10:20:00 2023-08-23 10:54:31 Outpatient R TRINY VALERA TRINY [facility] [id number] [facility] 2023-08-23 10:20:00 2023-08-23 10:54:31 Office Visit Cuate Cardenas Triny [facility] 1..840.114 350.1.13.10 4.2.7.2.686 [id number] [facility] 2023-08-23 09:20:00 2023-08-23 09:20:00 Outpatient R TRINY VALERA TRINY [facility] [id number] [facility] 2023-08-23 00:00:00 2023-08-23 00:00:00 Orders Only Doctor Unassigned, Animas [facility] ..840.114 350.1.13.10 4.2.7.2.686 [id number] [facility] 2023-08-21 10:10:41 2023-08-21 10:10:41 Outpatient SFA SFA [id number] Hi Bañuelos 2023-08-07 00:00:00 2023-08-07 00:00:00 Telephone Patrick Tillman [facility] 1.2.840.114 350.1.13.10 4.2.7.2.686 [id number] [facility] 2023-08-01 23:50:00 2023-08-02 02:53:00 Emergency X DARRYL WAREANTONY [facility] ERT [id number] [facility] 2023-08-01 13:00:00 2023-08-01 23:49:00 Outpatient R PATRICK TILLMAN [facility] [id number] [facility] 2023-07-20 09:46:54 2023-07-20 09:46:54 Outpatient [facility] [id number] Hi Bañuelos 2023-07-19 11:30:00 2023-07-19 11:30:00 Office Visit Patrick TillmanGayle [facility] 1.2.840.114 350.1.13.10 4.2.7.2.686 [id number] [facility] 2023-07-19 11:30:00 2023-07-19 11:12:27 Outpatient R PATRICK TILLMAN [facility] [id number] [facility] 2023-07-18 08:30:00 2023-07-18 08:36:10 Outpatient R ALBERTA HURST [facility] [id number] [facility] 2023-07-18 08:30:00 2023-07-18 08:36:10 Nurse Visit Visit, José Luis-Rmchp Nurse Alberta Hurst [facility] 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 [facility] MATERNAL & [facility] 1.2.840.114 350.1.13.10 4.2.7.2.686 [id number] [facility] 2023-07-13 19:39:00 2023-07-13 21:55:00 Emergency X DARRYL WAREANTONY [facility] ERT [id number] [facility] 2023-07-13 19:39:00 2023-07-13 21:55:00 Emergency Angelo Ware [facility] 1.2.840.114 350.1.13.10 4.2.7.2.686 [id number] [facility] 2023-07-06 13:03:45 2023-07-06 13:03:45 Outpatient [facility] [id number] Hi Bañuelos 2023-06-26 14:02:04 2023-06-26 14:02:04 Outpatient [facility] [id number] Hi Bañuelos 2023-06-22 08:37:04 2023-06-22 08:37:04 Outpatient [facility] [id number] Hi Bañuelos 2023-06-19 00:00:00 2023-06-19 00:00:00 RefPatrick Johnson [facility] 1.2.840.114 350.1.13.10 4.2.7.2.686 [id number] [facility] 2023-05-31 00:00:00 2023-05-31 00:00:00 Patrick Varghese [facility] 1.2.840.114 350.1.13.10 4.2.7.2.686 [id number] [facility] 2023-05-30 09:00:00 2023-05-30 09:00:00 Outpatient PATRICK ALBARRAN [facility] [id number] [facility] 2023-05-08 08:45:21 2023-05-08 08:45:21 Outpatient [facility] [id number] Hi Bañuelos 2023-04-25 13:30:00 2023-04-25 13:30:00 Nurse Visit Visit, José Luis-Rmchp Nurse Alberta Hurst [facility] 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 [facility] MAT[facility]NAL & [facility] 1.2.840.114 350.1.13.10 4.2.7.2.686 [id number] [facility] 2023-04-25 13:30:00 2023-04-25 13:09:23 Outpatient R ALBERTA HURST [facility] [id number] [facility] 2023-04-25 10:00:00 2023-04-25 10:00:00 Outpatient R [facility] [id number] [facility] 2023-04-24 11:15:00 2023-04-24 11:30:00 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 Pob, Adc Lab Main Tari Trivedi [facility] 1..840.114 350.1.13.10 4.2.7.2.686 [id number] [facility] 2023-04-24 11:15:00 2023-04-24 11:15:00 Outpatient R TARI TRIVEDI [facility] [id number] [facility] 2023-04-24 00:00:00 2023-04-24 00:00:00 Orders Only Doctor Unassigned, Animas [facility] 1..840.114 350.1.13.10 4.2.7.2.686 [id number] [facility] 2023-04-18 08:40:00 2023-04-18 08:52:[address] [facility] [id number] [facility] 2023-04-18 08:40:00 2023-04-18 08:52:[address] [facility] 1..840.114 350.1.13.10 4.2.7.2.686 [id number] [facility] 2023-04-12 00:00:00 2023-04-12 00:00:00 [facility]phone [facility] 1..840.114 350.1.13.10 4.2.7.2.686 [id number] [facility] 2023-03-31 00:00:00 2023-03-31 00:00:00 Telephone Junior, Patrick MachadoHGayle [facility] 1.2.840.114 350.1.13.10 4.2.7.2.686 [id number] [facility] 2023-03-31 00:00:00 2023-03-31 00:00:00 Orders Only Doctor Unassigned, Animas [facility] 1.2840.114 350.1.13.10 4.2.7.2.686 [id number] [facility] 2023-03-22 07:37:19 2023-03-22 23:59:00 Outpatient R PATRICK TILLMAN [facility] [id number] [facility] 2023-03-17 00:00:00 2023-03-17 00:00:00 Telephone Tillman, Patrick [facility] 1.2.840.114 350.1.13.10 4.2.7.2.686 [id number] [facility] 2023-03-13 08:30:00 2023-03-13 08:30:00 Outpatient R PATRICK TILLMAN [facility] [id number] [facility] 2023-03-09 08:11:41 2023-03-09 23:59:00 Outpatient R PATRICK TILLMAN [facility] [id number] [facility] 2023-03-02 00:00:00 2023-03-02 00:00:00 Orders Only Doctor Unassigned, Animas [facility] 1.2.840.114 350.1.13.10 4.2.7.2.686 [id number] [facility] 2023-02-28 09:30:00 2023-02-28 09:39:07 Outpatient R PATRICK TILLMAN [facility] [id number] [facility] 2023-02-28 09:30:00 2023-02-28 09:39:07 Office Visit Patrick Tillman [facility] 1.840.114 350.1.13.10 4.2.7.2.686 [id number] [facility] 2023-01-31 13:00:00 2023-01-31 13:50:11 Outpatient R ALBERTA HURST [facility] [id number] [facility] 2023-01-31 13:00:00 2023-01-31 13:50:11 Office Visit Alberta Hurst [facility] 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 [facility] MATERNAL & CHILD HEALTH [facility] .840.114 350.1.13.10 4.2.7.2.686 [id number] [facility] 2023-01-31 13:00:00 2023-01-31 13:00:00 Outpatient R ALBERTA HURST [facility] [id number] [facility] 2023-01-27 00:00:00 2023-01-27 00:00:00 Orders Only Doctor Unassigned, Animas [address]114 350.1.13.10 4.2.7.2.686 [id number] [id number] [facility] 2023-01-04 09:30:00 2023-01-04 09:30:00 Outpatient R OBED NARAYAN [facility] [id number] [facility] 2023-01-04 00:00:00 2023-01-04 00:00:00 Orders Only Doctor Unassigned, Animas [address]114 350.1.13.10 4.2.7.2.686 [id number] [id number] [facility] 2022-12-02 00:00:00 2022-12-02 00:00:00 Orders Only Doctor Unassigned, Animas [facility] 1.114 350.1.13.10 4.2.7.2.686 [id number] [facility] 2022-11-08 10:30:00 2022-11-08 10:30:00 Outpatient R VANDANA FENTON [facility] [id number] [facility] 2022-11-08 08:30:00 2022-11-08 09:39:24 Outpatient R ALBERTA HURST [facility] [id number] [facility] 2022-11-08 08:30:00 2022-11-08 09:39:24 Nurse Visit Visit, Ang-Rmchp Nurse Alberta Hurst [facility] 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 [facility] MATERNAL & CHILD [facility] 1..114 350.1.13.10 4.2.7.2.686 [id number] [facility] 2022-10-25 09:17:48 2022-10-25 09:17:48 Outpatient [facility] Hi Bañuelos 2022-10-13 15:50:42 2022-10-13 15:50:42 Outpatient [facility] Hi Bañuelos 2022-10-10 09:55:32 2022-10-10 09:55:32 Outpatient [facility] Hi Bañuelos 2022-08-29 12:13:33 2022-08-29 23:59:00 Outpatient R PRECIOUS VERDUGO [facility] [id number] [facility] 2022-08-29 12:13:33 2022-08-29 23:59:00 Hospital Encounter Precious Verdugo A [facility] 1..114 350.1.13.10 4.2.7.2.686 [id number] [facility] 2022-08-17 09:30:00 2022-08-17 09:45:00 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 Pob, Adc Lab Main Tari Triveid [facility] 1..114 350.1.13.10 4.2.7.2.686 [id number] [facility] 2022-08-17 09:30:00 2022-08-17 09:30:00 Outpatient R TARI TRIVEDI [facility] [id number] [facility] 2022-08-11 11:00:00 2022-08-11 12:03:20 Outpatient R ALBERTA HURST [facility] [id number] [facility] 2022-08-11 11:00:00 2022-08-11 12:03:20 Office Visit Alberta Hurst [facility] 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 [facility] & CHILD [facility] ..114 350.1.13.10 4.2.7.2.686 [id number] [facility] 2022-08-11 00:00:00 2022-08-11 00:00:00 Orders Only Doctor Unassigned, Animas [facility] 1..114 350.1.13.10 4.2.7.2.686 [id number] [facility] 2022-08-09 10:00:00 2022-08-09 10:00:00 Outpatient VANDANA BONNER [facility] [id number] [facility] 2022-08-09 10:00:00 2022-08-09 10:00:00 Nurse Visit Visit, José Luis-Rmchp Nurse Vandana Fenton [facility] 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 [facility] CHILD [facility] 1..114 350.1.13.10 4.2.7.2.686 [id number] [facility] 2022-05-17 09:00:00 2022-05-17 09:27:11 Nurse Visit Visit, Ang-Rmchp Vandana Reno [facility] 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 [facility] & CHILD [facility] 1.2.840.114 350.1.13.10 4.2.7.2.686 [id number] [facility] 2022-05-17 09:00:00 2022-05-17 09:00:00 Outpatient VANDANA BONNER [facility] [id number] [facility] 2022-03-25 00:00:00 2022-03-25 00:00:00 Patient Secure Msg Doctor Unassigned, Animas [facility] 1.2.840.114 350.1.13.10 4.2.7.2.686 [id number] [facility] 2022-02-14 09:30:00 2022-02-14 09:48:50 Nurse Visit Visit, Ang-Rmchp Vandana Reno [facility] 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 [facility] & CHILD [facility] 1..840.114 350.1.13.10 4.2.7.2.686 [id number] [facility] 2022-02-14 09:30:00 2022-02-14 09:30:00 Outpatient R [facility] [id number] [facility] 2022-02-14 09:30:00 2022-02-14 09:30:00 Outpatient R VANDANA FENTON [facility] [id number] [facility] 2022-01-27 13:00:00 2022-01-27 13:00:00 Outpatient R DELILAH JOYA [facility] [id number] [facility] 2022-01-05 07:56:31 2022-01-05 23:59:00 Outpatient R SABRINA WOOTEN [facility] [id number] [facility] 2022-01-05 07:56:31 2022-01-05 23:59:00 Hospital Encounter Sabrina Wooten Rp [facility] 1.840.114 350.1.13.10 4.2.7.2.686 [id number] [facility] 2021-12-27 08:30:00 2021-12-27 08:30:00 Outpatient R PREET ORTIZ [facility] [id number] [facility] 2021-12-24 10:30:00 2021-12-24 10:45:00 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 [facility] Sabrina Wooten [facility] 1.84.114 350.1.13.10 4.2.7.2.686 [id number] [facility] 2021-12-24 09:20:00 2021-12-24 09:40:00 Office Visit Sabrina Wooten Rp [facility] 1.840.114 350.1.13.10 4.2.7.2.686 [id number] [facility] 2021-12-24 09:20:00 2021-12-24 09:20:00 Outpatient R SABRINA WOOTEN [facility] [id number] [facility] 2021-12-15 08:30:00 2021-12-15 08:30:00 Outpatient R VANDANA FENTON [facility] [facility] [id number] [facility] 2021-12-13 00:00:00 2021-12-13 00:00:00 Telephone Alberta Hurst [facility] 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 [facility] MATERNAL & CHILD HEALTH [facility] 1..840.114 350.1.13.10 4.2.7.2.686 [id number] [facility] 2021-12-09 14:15:00 2021-12-09 14:28:57 Outpatient R ALBERTA HURST [facility] [id number] [facility] 2021-12-09 14:15:00 2021-12-09 14:28:57 Office Visit Alberta Hurst [facility] 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 [facility] & CHILD [facility] 1.2.840.114 350.1.13.10 4.2.7.2.686 [id number] [facility] 2021-12-07 00:00:00 2021-12-07 00:00:00 Telephone Vandana Fenton [facility] 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 [facility] & CHILD [facility] 1.2.840.114 350.1.13.10 4.2.7.2.686 [id number] [facility] 2021-12-03 00:00:00 2021-12-03 00:00:00 Telephone Alberta Hurst [facility] 1.2.840.114 350.1.13.10 4.2.7.2.686 [id number] 107 [id number] [facility] 2021-12-03 00:00:00 2021-12-03 00:00:00 Patient Secure Msg Doctor Unassigned, [place]imas [facility] 1.2.840.114 350.1.13.10 4.2.7.2.686 [id number] [facility] 2021-12-02 00:00:00 2021-12-02 00:00:00 Orders Only Doctor Unassigned, [place] [facility] 1.2.840.114 350.1.13.10 4.2.7.2.686 [id number] [facility] 2021-11-30 00:00:00 2021-11-30 00:00:00 Telephone Pritesh Greenfield [facility] 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 [facility] CHILD [facility] 1.2.840.114 350.1.13.10 4.2.7.2.686 [id number] [facility] 2021-11-22 09:15:00 2021-11-22 10:06:01 Outpatient R GATITOISAIJORDENMERIALBERTA [facility] [id number] [facility] 2021-11-22 09:15:00 2021-11-22 10:06:01 Office Visit Alberta Hurst [facility] 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 [facility] MATERNAL & CHILD [facility] 1.2.840.114 350.1.13.10 4.2.7.2.686 [id number] 107 [id number] [facility] 2021-11-22 09:15:00 2021-11-22 10:06:01 Outpatient R ALBERTA HURST [facility] [id number] [facility] 2021-11-22 09:15:00 2021-11-22 10:06:01 Outpatient R ALBERTA HURST [facility] [id number] [facility] 2021-11-22 09:15:00 2021-11-22 09:15:00 Outpatient R ALBERTA HURST [facility] [id number] [facility] 2021-10-19 00:00:00 2021-10-19 00:00:00 Telephone Preet Ortiz [facility] LAN?VICENTE AGUIRREDANIEL MEDICAL OFFICE BUILDING 1..840.114 350.1.13.10 4.2.7.2.686 [id number] [facility] 2021-10-13 00:00:00 2021-10-13 00:00:00 Telephone Alberta Hurst [facility] 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 [facility] & CHILD [facility] 1..840.114 350.1.13.10 4.2.7.2.686 [id number] 107 [id number] [facility] 2021-10-12 09:00:00 2021-10-12 09:00:00 Outpatient R LA BRANCH [facility] [id number] [facility] 2021-10-02 00:00:00 2021-10-02 00:00:00 Telephone Brad Barnes [facility] 1.2840.114 350.1.13.10 4.2.7.2.686 [id number] [facility] 2021-10-01 00:00:00 2021-10-01 00:00:00 Patient Secure Msg Doctor Unassigned, [place] [facility] 1.2840.114 350.1.13.10 4.2.7.2.686 [id number] [facility] 2021-10-01 00:00:00 2021-10-01 00:00:00 Patient Secure Msg Doctor Unassigned, Animas [facility] 1.2840.114 350.1.13.10 4.2.7.2.686 [id number] [facility] 2021-09-30 11:00:00 2021-09-30 11:19:40 Outpatient R DIANA SHANTANUALEX [facility] [id number] [facility] 2021-09-30 10:49:51 2021-09-30 11:19:40 Office Visit Diana Shantanubrucesherly Harvey [facility] 1.2840.114 350.1.13.10 4.2.7.2.686 [id number] [facility] 2021-09-30 00:00:00 2021-09-30 00:00:00 Telephone Diana Preet Harvey [facility] N[facility]Z?[facility] MEDICAL OFFICE BUILDING 1.2840.114 350.1.13.10 4.2.7.2.686 [id number] [facility] 2021-09-15 00:00:00 2021-09-15 00:00:00 Telephone Diana Shantanubrucesherly Harvey [facility] MEDICAL OFFICE BUILDING 1.2840.114 350.1.13.10 4.2.7.2.686 [id number] [facility] 2021-09-09 15:00:00 2021-09-09 15:00:00 Outpatient R AINSLEYJORDENRHONDAALBERTA [facility] [id number] [facility] 2021-09-09 14:30:00 2021-09-09 14:30:00 Outpatient R LA BRANCH [facility] [id number] [facility] 2021-09-09 00:00:00 2021-09-09 00:00:00 Telephone Preet Ortiz [facility] LAN?VINCECandice AGUIRRE MEDICAL OFFICE BUILDING 1.84.114 350.1.13.10 4.2.7.2.686 [id number] [facility] 2021-09-06 00:00:00 2021-09-06 00:00:00 Refill Preet Ortiz [facility] Office Building One 1..114 350.1.13.10 4.2.7.2.686 [id number] [facility] 2021-09-02 00:00:00 2021-09-02 00:00:00 Telephone Pritesh Greenfield [facility] 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 [facility] 1..114 350.1.13.10 4.2.7.2.686 [id number] 107 [id number] [facility] 2021-09-01 13:02:05 2021-09-01 13:47:05 Ancillary Visit Connie Huddleston Craig L [facility] Building 1.84.114 350.1.13.10 4.2.7.2.686 [id number] [facility] 2021-08-30 09:57:19 2021-08-30 11:01:49 Office Visit Tania Jimenez [facility] Lan?Vicente holly Medical Office Building 1.2.840.114 350.1.13.10 4.2.7.2.686 [id number] [facility] 2021-08-30 08:25:04 2021-08-30 09:28:20 Office Visit Pritesh Greenfield [facility] 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 [facility] MATERNAL & CHILD HEALTH [facility] 1.2840.114 350.1.13.10 4.2.7.2.686 [id number] 107 [id number] [facility] 2021-08-30 08:30:00 2021-08-30 08:30:00 Outpatient PRITESH KAUFFMAN [facility] [id number] [facility] 2021-08-20 00:00:00 2021-08-20 00:00:00 Patient Secure MsJoshua Beavers [facility] SPECIALTY CARE [facility] 1.840.114 350.1.13.10 4.2.7.2.686 [id number] [facility] 2021-08-18 08:04:55 2021-08-18 08:49:55 Ancillary Visit Connie Huddleston Craig L [facility] 1.2840.114 350.1.13.10 4.2.7.2.686 [id number] [facility] 2021-08-18 08:45:00 2021-08-18 08:45:00 Outpatient JIMMY MILLER [facility] [id number] [facility] 2021 11:03:00 2021 12:41:00 Hospital Encounter Joshua Lopez [facility] ([facility]) 1.2840.114 350.1.13.10 4.2.7.2.686 [id number] [facility] 2021 10:03:00 2021 10:48:00 Surgery Joshua Lopez [facility] SPECIALTY CARE [facility] 1..114 350.1.13.10 4.2.7.2.686 [id number] [facility] 2021 00:00:00 2021 00:00:00 Orders Only Doctor Unassigned, [place] [facility] 1.0.114 350.1.13.10 4.2.7.2.686 [id number] [facility] 2021-08-14 09:07:55 2021-08-14 09:22:55 Laboratory Only Only, Adc Test Joshua Lopez [facility] 1..114 350.1.13.10 4.2.7.2.686 [id number] [facility] 2021-08-14 09:15:00 2021-08-14 09:15:00 Outpatient JOSHUA BARROSO GABRIEL [facility] [id number] [facility] 2021-08-13 10:30:00 2021-08-13 10:30:00 Outpatient DELILAH REDDY [facility] [id number] [facility] 2021-08-09 00:00:00 2021-08-09 00:00:00 Telephone Connie Huddleston [facility] 1..114 350.1.13.10 4.2.7.2.686 [id number] [facility] 2021-08-09 00:00:00 2021-08-09 00:00:00 Telephone Vandana Fenton [facility] 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 [facility] 1..114 350.1.13.10 4.2.7.2.686 [id number] [facility] 2021-08-09 00:00:00 2021-08-09 00:00:00 Telephone Vandana Fenton [facility] 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 [facility] MATERNAL & CHILD [facility] 1.2.840.114 350.1.13.10 4.2.7.2.686 [id number] 107 [id number] [facility] 2021-08-06 12:45:21 2021-08-06 13:15:26 Office Visit Vandana Fenton [facility] 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 [facility] & CHILD [facility] 1.2.840.114 350.1.13.10 4.2.7.2.686 [id number] [facility] 2021-08-06 13:00:00 2021-08-06 13:00:00 Outpatient VANDANA BONNER [facility] [id number] [facility] 2021-08-02 00:00:00 2021-08-02 00:00:00 Telephone Connie Huddleston [facility] 1.2.840.114 350.1.13.10 4.2.7.2.686 [id number] [facility] 2021-07-29 10:52:13 2021-07-29 14:15:36 Office Visit Brad Barnes Karl [facility] SPECIALTY CARE [facility] 1.2.840.114 350.1.13.10 4.2.7.2.686 [id number] [facility] 2021-07-29 10:52:13 2021-07-29 14:15:36 Office Visit Brad Barnes Karl E [facility] SPECIAL[facility] CARE [facility] 1.2840.114 350.1.13.10 4.2.7.2.686 [id number] [facility] 2021-07-29 14:00:00 2021-07-29 14:00:00 Outpatient AKHIL MOHAN [facility] [id number] [facility] 2021-07-26 09:19:16 2021-07-26 10:03:45 Office Visit Josseline Capone [facility] 1.2.840.114 350.1.13.10 4.2.7.2.686 [id number] [facility] 2021-07-26 09:15:00 2021-07-26 09:15:00 Outpatient R JOSSELINE CAPONE [facility] [id number] [facility] 2021-07-12 00:00:00 2021-07-12 00:00:00 Patient Secure Msg Doctor Unassigned, [place] 1.2.840.114 350.1.13.10 4.2.7.2.686 [id number] [facility] 2021-07-12 00:00:00 2021-07-12 00:00:00 Telephone Connie Huddleston [facility] 1.2.840.114 350.1.13.10 4.2.7.2.686 [id number] [facility] 2021-07-10 00:00:00 2021-07-10 00:00:00 Telephone Josseline Capone [facility] Building 1.2.840.114 350.1.13.10 4.2.7.2.686 [id number] [facility] 2021-07-08 09:45:37 2021-07-08 10:23:38 Office Visit Josseline Capone [facility] 1.2.840.114 350.1.13.10 4.2.7.2.686 [id number] [facility] 2021-07-08 10:00:00 2021-07-08 10:00:00 Outpatient R JOSSELINE CAPONE [facility] [id number] [facility] 2021-07-05 00:00:00 2021-07-05 00:00:00 Outpatient R FABIOLA IZAGUIRRE [facility] [id number] [facility] 2021-06-25 10:20:00 2021-06-25 10:20:00 Outpatient R SABRINA WOOTEN [facility] [id number] [facility] 2021-06-09 10:30:00 2021-06-09 10:30:00 Outpatient R ASHLEY HODEGS [facility] [id number] [facility] 2021-06-09 00:00:00 2021-06-09 00:00:00 Patient Secure Msg Doctor Unassigned, [place] [facility] 1.2.840.114 350.1.13.10 4.2.7.2.686 [id number] [facility] 2021-06-03 11:00:00 2021-06-03 11:00:00 Outpatient R KASH DU [facility] [id number] [facility] 2021-05-18 10:00:00 2021-05-18 10:00:00 Outpatient R FABIOLA IZAGUIRRE [facility] RAD [id number] [facility] 2021-05-11 18:00:00 2021-05-11 18:00:00 Outpatient R [facility] [id number] [facility] 2021-05-07 17:20:00 2021-05-07 17:20:00 Outpatient R PAOLA SAEZ [facility] [id number] [facility] 2021-05-07 17:15:00 2021-05-07 17:15:00 Outpatient R ABUNDIO OLIVA [facility] [id number] [facility] 2021-05-05 10:00:00 2021-05-05 10:00:00 Outpatient R FABIOLA IZAGUIRRE [facility] [id number] [facility] 2021-04-29 08:30:00 2021-04-29 08:35:00 Pre-Anesth esia Evaluation Call, [facility] Phone [facility] ..840.114 350.1.13.10 4.2.7.2.686 [id number] [facility] 2021-04-23 10:00:00 2021-04-23 10:00:00 Outpatient GIL WYNNE HOWARD [facility] [id number] [facility] 2021-04-21 09:00:00 2021-04-21 09:00:00 Outpatient R [facility] [id number] [facility] 2021-04-16 00:00:00 2021-04-16 00:00:00 Outpatient R [facility] [id number] [facility] 2021-04-15 00:00:00 2021-04-15 00:00:00 Outpatient FABIOLA CHAVEZ [facility] [id number] [facility] 2021-04-13 00:00:00 2021-04-13 00:00:00 Outpatient RENATO DILL [facility] [id number] [facility] 2021-04-08 00:00:00 2021-04-08 00:00:00 Outpatient FABIOLA CHAVEZ [facility] [id number] [facility] 2021-04-02 00:00:00 2021-04-02 00:00:00 Outpatient FABIOLA CHAVEZ [facility] [id number] [facility] 2021-03-29 10:30:00 2021-03-29 10:30:00 Outpatient PREET JOSEPH [facility] [id number] [facility] 2021-03-26 00:00:00 2021-03-26 00:00:00 Outpatient RENATO DILL [facility] [id number] [facility] 2021-03-23 00:00:00 2021-03-23 00:00:00 Patient Secure Msg Doctor Unassigned, [place] [facility] 1..114 350.1.13.10 4.2.7.2.686 [id number] [facility] 2021-03-18 00:00:00 2021-03-18 00:00:00 Patient Secure Msg Doctor Unassigned, [place]imas [facility] 1..114 350.1.13.10 4.2.7.2.686 [id number] [facility] 2021-03-10 09:00:00 2021-03-10 09:00:00 Outpatient RENATO DILL [facility] RAD [id number] [facility] 2021-03-04 00:00:00 2021-03-04 00:00:00 Outpatient RENATO DILL [facility] [id number] [facility] 2021-03-02 13:35:00 2021-03-02 13:40:00 Pre-Anesth esia Evaluation Call, [facility] Apa Phone [facility] 1..114 350.1.13.10 4.2.7.2.686 [id number] [facility] 2021-02-23 13:30:00 2021-02-23 13:30:00 Outpatient SHAKIR BAUER [facility] [id number] [facility] 2021-02-11 08:34:08 2021-02-11 23:59:00 Hospital Encounter Shea Medina [facility] 1..114 350.1.13.10 4.2.7.2.686 [id number] 2021-02-11 00:00:00 2021-02-11 00:00:00 Outpatient SHEA MOTLEY [facility] [id number] [facility] 2021-02-09 00:00:00 2021-02-09 00:00:00 Case Management Renato Santiago [facility] 1..114 350.1.13.10 4.2.7.2.686 [id number] 2021-02-08 17:25:00 2021-02-08 20:35:00 Emergency Mariana Cotton [facility] ([facility]) 1..114 350.1.13.10 4.2.7.2.686 [id number] 2021-02-08 17:30:00 2021-02-08 17:30:00 Outpatient R ALVIN, [facility] [id number] [facility] 2021-02-08 16:00:00 2021-02-08 16:00:00 Outpatient R DAVID CORRAL III [facility] [id number] [facility] 2021-02-08 16:00:00 2021-02-08 16:00:00 Outpatient R ALLIE ANDERSON [facility] [id number] [facility] 2021-02-08 00:00:00 2021-02-08 00:00:00 Outpatient R SHEA MEDINA [facility] [id number] [facility] 2021-02-04 00:00:00 2021-02-04 00:00:00 Telephone Fabiola Izaguirre [facility] ..114 350.1.13.10 4.2.7.2.686 [id number] 2021-02-02 13:30:00 2021-02-02 13:30:00 Outpatient JAMEY HIGGINBOTHAM [facility] [id number] [facility] 2021-02-02 12:30:00 2021-02-02 12:30:00 Outpatient JAMEY HIGGINBOTHAM [facility] [id number] [facility] 2021-02-02 00:00:00 2021-02-02 00:00:00 Patient Outreach Jamey iHgginbotham [facility] PRIMARY CARE PAVILLION 1.0.114 350.1.13.10 4.2.7.2.686 [id number] 2021-01-28 08:35:41 2021-01-28 23:59:00 Hospital Encounter TaliaferroJamila gagnone [facility] 1.2.840.114 350.1.13.10 4.2.7.2.686 [id number] 2021-01-28 00:00:00 2021-01-28 00:00:00 Outpatient R [facility] [id number] [facility] 2021-01-27 09:18:25 2021-01-27 09:32:38 Nurse Visit Nurse, [facility] 1.2.840.114 350.1.13.10 4.2.7.2.686 [id number] 2021-01-27 09:00:00 2021-01-27 09:00:00 Outpatient R [facility] [id number] [facility] 2021-01-22 09:34:26 2021-01-22 11:19:10 Office Visit Sabrina Wooten [facility] 1.2.840.114 350.1.13.10 4.2.7.2.686 [id number] 2021-01-22 10:20:00 2021-01-22 10:20:00 Outpatient R SABRINA WOOTEN [facility] [id number] [facility] 2021-01-08 11:00:00 2021-01-08 11:00:00 Outpatient R YOVANNY CHOI [facility] [id number] [facility] 2021-01-04 10:45:00 2021-01-04 10:45:00 Outpatient R PREET ORTIZ [facility] [id number] [facility] 2020-12-18 10:30:00 2020-12-18 10:30:00 Outpatient R FABIOLA IZAGUIRRE [facility] [id number] [facility] 2020-12-11 00:00:00 2020-12-11 00:00:00 Patient Secure Msg [place], [place] A [facility] OFFICE BUILDING ONE 1.2.840.114 350.1.13.10 4.2.7.2.686 [id number] [facility] 2020-12-09 00:00:00 2020-12-09 00:00:00 Patient Secure Preet Perez [facility] OFFICE BUILDING ONE 1.2.840.114 350.1.13.10 4.2.7.2.686 [id number] [facility] 2020-12-04 10:00:00 2020-12-04 10:00:00 Outpatient R PREET ORTIZ [facility] [id number] [facility] 2020-12-03 13:30:00 2020-12-03 13:30:00 Outpatient R SHANTANU ORTIZBRUCESHERLY [facility] [id number] [facility] 2020-12-03 10:00:00 2020-12-03 10:00:00 Outpatient R [facility] [id number] [facility] 2020-12-01 00:00:00 2020-12-01 00:00:00 Outpatient R [facility] [id number] [facility] 2020-11-17 10:30:00 2020-11-17 10:30:00 Outpatient R [facility] [id number] [facility] 2020-11-10 14:40:00 2020-11-10 14:40:00 Outpatient R KATARINA WIGGINS [facility] [id number] [facility] 2020-11-09 00:00:00 2020-11-09 00:00:00 Outpatient R FABIOLA IZAGUIRRE [facility] [id number] [facility] 2020-10-29 14:30:00 2020-10-29 14:30:00 Outpatient R ROSANA RANDHAWA [facility] [id number] [facility] 2020-10-28 00:00:00 2020-10-28 00:00:00 Outpatient R [facility] [id number] [facility] 2020-10-23 14:00:00 2020-10-23 14:00:00 Outpatient R [facility] [id number] [facility] 2020-10-23 00:00:00 2020-10-23 00:00:00 (TEL) STLMLC STLMLC [id number] [facility] 2020-10-22 00:00:00 2020-10-22 00:00:00 (TEL) STLMLC STLMLC [id number] [facility] 2020-10-22 00:00:00 2020-10-22 00:00:00 OFFICE VISIT EST PT LEVEL 3 STLMLC STLMLC [id number] [facility] 2020-10-20 10:00:00 2020-10-20 10:00:00 Outpatient R IMAN JONES [facility] [id number] [facility] 2020-10-19 13:30:00 2020-10-19 13:30:00 Outpatient ROSANA BURGOS [facility] [id number] [facility] 2020-10-10 00:00:00 2020-10-10 00:00:00 Telephone Brian Edwards [facility] [id number] 2020-10-02 00:00:00 2020-10-02 00:00:00 Outpatient SABRINA TRAN [facility] [id number] [facility] 2020-09-29 08:30:00 2020-09-29 08:30:00 Outpatient BRIAN LAM [facility] [id number] [facility] 2020-09-28 00:00:00 2020-09-28 00:00:00 Outpatient BRIAN LAM [facility] [id number] [facility] 2020-09-24 08:00:00 2020-09-24 08:00:00 Outpatient ROSANA BURGOS [facility] [id number] [facility] 2020-09-19 00:00:00 2020-09-19 00:00:00 (TEL) STLMLC STLMLC [id number] [facility] 2020-09-14 09:00:00 2020-09-14 09:00:00 Outpatient R [facility] [id number] [facility] 2020-09-14 00:00:00 2020-09-14 00:00:00 OFFICE VISIT EST PT LEVEL 3 STLMLC STLC [id number] [facility] 2020-09-09 13:15:00 2020-09-09 13:15:00 Outpatient R ALBERTA HURST [facility] [id number] [facility] 2020-09-03 00:00:00 2020-09-03 00:00:00 ([place]) Nurse Visit STLC STLC [id number] [facility] 2020-09-03 00:00:00 2020-09-03 00:00:00 Patient Secure Msg Doctor Unassigned, [place] [facility] [id number] [facility] 2020-09-01 00:00:00 2020-09-01 00:00:00 (TEL) STLMLC STLC [id number] [facility] 2020-08-28 11:00:00 2020-08-28 11:00:00 Outpatient R SABRINA WOOTEN [facility] [id number] [facility] 2020-08-27 14:30:00 2020-08-27 14:30:00 Outpatient PRITESH KAUFFMAN [facility] [id number] [facility] 2020-08-25 14:30:00 2020-08-25 14:30:00 Outpatient PRITESH KAUFFMAN [facility] [id number] [facility] 2020-08-12 00:00:00 2020-08-12 00:00:00 OL DIG E/M SVC 11-20 MIN STLMLC STLC [id number] [facility] 2020-08-11 00:00:00 2020-08-11 00:00:00 [facility] [id number] 2020-08-07 10:40:00 2020-08-07 10:40:00 Outpatient SABRINA TRAN [facility] [id number] [facility] 2020-07-23 11:20:00 2020-07-23 11:20:[address] [facility] [id number] [facility] 2020-05-28 10:30:00 2020-05-28 10:30:00 Outpatient HI KAUFFMAN [facility] [id number] [facility] 2020-05-11 16:25:00 2020-05-11 16:25:[address] [facility] [id number] [facility] 2020-05-08 11:00:00 2020-05-08 11:00:00 Outpatient SABRINA TRAN [facility] [id number] [facility] 2020-05-01 13:06:00 2020-05-01 13:06:[address] [facility] [id number] [facility] 2020-04-23 14:25:00 2020-04-23 14:25:[address] [facility] [id number] [facility] 2020-04-16 13:06:00 2020-04-16 13:06:[address] [facility] [id number] [facility] 2020-04-16 10:40:00 2020-04-16 10:40:[address] [facility] [id number] [facility] 2020-04-13 13:19:00 2020-04-13 13:19:[address] [facility] [id number] [facility] 2020-04-13 11:29:00 2020-04-13 11:29:[address] [facility] [id number] [facility] 2020-04-01 13:30:00 2020-04-01 13:30:00 Outpatient Moise PABLO RAJ [facility] [id number] [facility] 2020-03-27 09:20:00 2020-03-27 09:20:00 Outpatient SABRINA TRAN [facility] [id number] [facility] 2020-01-17 09:00:00 2020-01-17 09:00:00 Outpatient SABRINA TRAN [facility] [id number] [facility] 2020-01-15 12:20:00 2020-01-15 12:20:00 [address] [facility] [id number] [facility] 2020-01-08 08:53:00 2020-01-08 08:53:[address] [facility] [id number] [facility] 2019-12-14 01:43:55 2019-12-14 04:36:00 Emergency X YANIQUE ROLON [facility] E[facility] [id number] [facility] 2019-11-07 12:42:39 2019-11-07 15:48:00 Emergency X MARCELO POWELL III [facility] ERT [id number] [facility] 2019-10-28 09:40:00 2019-10-28 09:40:[address] [facility] [id number] [facility] 2019-10-25 07:47:33 2019-10-25 07:47:00 Outpatient HI KAUFFMAN [facility] [id number] [facility] 2019-09-03 16:57:00 2019-09-03 16:57:[address] [facility] [id number] [facility] 2019-08-27 08:40:00 2019-08-27 08:40:[address] [facility] [id number] [facility] 2019-08-22 09:20:00 2019-08-22 09:20:[address] [facility] [id number] [facility] 2019-08-05 16:00:00 2019-08-05 16:00:[address] [facility] [id number] [facility] 2019-03-01 09:40:00 2019-03-01 09:40:[address] [facility] [id number] [facility] 2019-01-25 09:30:00 2019-01-25 09:30:[address] [facility] [id number] [facility] 2018-10-26 09:30:00 2018-10-26 09:30:[address] [facility] [id number] [facility] 2018-07-27 10:15:00 2018-07-27 10:15:[address] [facility] [id number] [facility] 2018-05-01 09:15:00 2018-05-01 09:15:00 AppointALFREDO Stern M.D. SAMUELS, JOSHUA, M.D. [facility] Pediatrics Division of Medical Genetics [id number] MD Physici ans 2018-05-01 08:45:00 2018-05-01 08:45:00 AppointALONZO Weinberg M.D. ALONZO GONZALES M.D. [facility] Pediatrics Division of Medical Genetics [id number] MD Physici ans 2018-04-27 10:15:00 2018-04-27 10:15:[address] [facility] [id number] [facility] 2017-05-08 09:00:00 2017-05-08 09:00:00 Appointmen t; ALFREDO EUGENE M.D. SAMUELS, JOSHUA, M.D. [facility] UTP [id number] MD Physici ans 2017-02-28 09:45:00 2017-02-28 09:45:00 Appointmen t; ALFREDO EUGENE M.D. SAMUELS, JOSHUA, M.D. [facility] UTP [id number] MD Physici ans 2017-02-28 09:45:00 2017-02-28 09:45:00 Appointmen t; ALONZO GONZALES M.D. KOENIG, MARY KAY, M.D. [facility] [id number] MD Physici ans 2017-02-28 09:30:00 2017-02-28 09:30:00 Appointmen t; LAYA FELIX M.D. NORTHRUP, HOPE, M.D. [facility] UTP [id number] MD Physici ans Results Test Description Test Time Test Comments Results Result Co mments Source [facility] Center[facility] Packed RBC (in units), 1 Units 2024-06-20 14:08:52* Test Item Value Reference Range Interpretation Comme nts Cross Match Result (test code = 4409) Compatible ISBT Blood Type Code (test code = 472666) 9500 Unit Blood Type (test code = 4410) O Neg Unit Number (test code = 4411) [id number] Blood Expiration Date & Time (test code = 687351) [id number] Status Information (test code = 4412) Issued Product Identification (test code = 4413) Red Blood Cells Product Code (test code = 4414) [id number] Performed at [facility] [[email or web address]] B Laboratory Services - [facility] Blood [address] [place] [address] 78181Pghu Free: [phone] No. [id number] [facility] CenterLactic Acid Whole [id number] 11:05:56* Test Item Value Reference Range Interpretation Comme nts LACTIC ACID (test code = 7806978130) 0.84 mmol/L 0.50-2.20 QUES Lab Interpretation (test cod e = 86843-8) Normal [facility] CenterCT ANGIOGRAM ABDOMEN/[id number] 04:37:17 Ordering physician: APOLINAR SANCHEZ Indication: Large left angiomyolipoma with perinephric hematoma COMPARISON: CT of the abdomen and pelvis dated 06/17/2024 TECHNIQUE: CTA of the abdomen and pelvis was performed before and after theadministration of intravenous contrast material. Three-dimensionalreformats were generated on completion of the exam. CT scan was performedaccording to ALARA (as low as reasonably achievable) policy. FINDINGS: There is linear atelectasis or scarring in the bilateral lowerlobes. There are subcentimeter hypoattenuating foci in both lobes of theliver, too small to characterize. The gallbladder, spleen, adrenal glandsand pancreas are within normal limits. The patient is status post rightnephrectomy. There is a very large left angiomyolipoma versus multipleangiomyolipomas in the left kidney, essentially replacing the left renalparenchyma, measuring 12.8 x 12.8 x 21 cm (series 501, image 50). There ellis small amount of hyperdense fluid in the surrounding perinephric fat,grossly stable compared to previous exam of 06/17/2024. This is difficult tomeasure given its configuration, but the largest anterior componentmeasures approximately 10.2 x 2.8 x 11.5 cm, versus 12.4 x 2.9 x 11.7 onthe previous exam. There are multiple arterial structures supplying theangiomyolipoma. Many of these are dysmorphic, but there is no definiteactive extravasation into the perinephric hematoma. The density of theperinephric hematoma does not telephone exchange operator the course of the exam. There isno abdominal aortic aneurysm or dissection. No hemodynamically significantstenosis is appreciated in the aortic branch vessels. There is no free fluid in the pelvis. There is a dominant follicle in theright ovary measuring 23 mm (series 6, image 107). There is no bowelobstruction, widespread diverticulosis or acute diverticulitis. Theappendix is identified and within normal limits. ?Bone windows through theabdomen and pelvis demonstrate no osseous destructive lesion. [facility] CenterTROPONIN [id number] 03:46:27* Test Item Value Reference Range Interpretation Comme nts TROPONIN I (test code = 1104639985) 0.007 ng/mL <=0.034 [place] (test code = [place]) Reference (Normal) Range (defined by the 99th percentile reference limit): <= 0.034 ng/mL Note: Cardiac troponin begins to rise 3-4 hours after the onset of ischemia. Repeat in 4-6 hours if the sample was drawn within 3-4 hours of the onset of the symptom and found normal. Diagnosis of myocardial injury is made with acute changes in cTn concentrations with at least one serial sample above the 99th percentile upper reference limit (URL), taken together with the patient's clinical presentation. Biotin has been reported to cause a negative bias, interpret results relative to patient's use of biotin. Lab Interpretation (test code = 33403-6) Normal [facility] CenterPROTHROMBIN TIME / [id number] 03:22:25* Test Item Value Reference Range Interpretation Comme nts PROTIME PATIENT (test code = 5964-2) 11.5 10.1-12.6 INR (test code = 6301-6) 1.0 Normal INR <1.1; Warfarin Therapeutic range 2.0 to 3.0 or 2.5 to 3.5, depending upon the indications. Lab Interpretation (test code = 62702-1) Normal [facility] CenterACTIVATED PARTIAL THRMPLAS [id number] 03:22:25* Test Item Value Reference Range Interpretation Comme nts APTT Patient (test code = 3173-2) 32 26-36 Lab Interpretation (test cod e = 99005-3) Normal [facility] CenterType and Screen - ONCE [id number] 03:01:00* Test Item Value Reference Range Interpretation Comme nts ABO & RH (test code = 20) O NEGATIVE IAT (test code = 1185) Negative [facility] CenterCBC WITH [id number] 02:47:40* Test Item Value Reference Range Interpretation Comme nts WBC (test code = 6690-2) 13.38 4.30-11.10 H RBC (test code = 789-8) 2.37 3.93-5.25 L HGB (test code = 718-7) 7.2 g/dL 11.6-15.0 L HCT (test code = 4544-3) 22.4 % 35.7-45.2 L MCV (test code = 787-2) 94.5 fL 80.6-95.5 MCH (test code = 785-6) 30.4 pg 25.9-32.8 MCHC (test code = 786-4) 32.1 g/dL 31.6-35.1 RDW-SD (test code = 40532-9) 45.6 fL 39.0-49.9 RDW-CV (test code = 788-0) 13.2 % 12.0-15.5 PLT (test code = 777-3) 397 166-358 H MPV (test code = 14598-3) 9.6 fL 9.5-12.9 NRBC/100 WBC (test code = 1131882457) 0.0 0.0-10.0 NRBC x10^3 (test code = 3899995113) See_Comment [Automated messa ge] The system which generated this result transmitted reference range: 10*3/?L. The reference range was not used to interpret this result as normal/abnormal. GRAN MAT (NEUT) % (test code = 770-8) 73.4 % IMM GRAN % (test code = 9913544199) 3.60 % LYMPH % (test code = 736-9) 12.3 % MONO % (test code = 5905-5) 9.7 % EOS % (test code = 713-8) 0.7 % BASO % (test code = 706-2) 0.3 % GRAN MAT x10^3(ANC) (test code = 9713708437) 9.82 10*3/uL 1.88-7.09 H IMM GRAN x10^3 (test code = 5225908975) 0.48 10*3/uL 0.00-0.06 H LYMPH x10^3 (test code = 731-0) 1.65 10*3/uL 1.32-3.29 MONO x10^3 (test code = 742-7) 1.30 10*3/uL 0.33-0.92 H EOS x10^3 (test code = 711-2) 0.09 10*3/uL 0.03-0.39 BASO x10^3 (test code = 704-7) 0.04 10*3/uL 0.01-0.07 Lab Interpretation (test code = 21895-2) Abnormal [facility] CenterCOM. METABOLIC PANEL (03762)2024-06-20 02:25:38* Test Item Value Reference Range Interpretation Comme nts NA (test code = 4092580688) 140 mmol/L 135-145 K (test code = 4678744486) 4.2 mmol/L 3.5-5.0 CL (test code = 1870534330) 109 mmol/L 98-108 H CO2 TOTAL (test code = 3354345419) 19 mmol/L 23-31 L AGAP (test code = 8793172549) 12 2-16 BUN (test code = 5388408010) 33 mg/dL 7-23 H GLUCOSE (test code = 0954825962) 122 mg/dL 70-110 H CREATININE (test code = 2160-0) 3.17 mg/dL 0.50-1.04 H TOTAL BILI (test code = 8771805335) 0.3 mg/dL 0.1-1.1 CALCIUM (test code = 0823508734) 8.7 mg/dL 8.6-10.6 T PROTEIN (test code = 3397699357) 7.2 g/dL 6.3-8.2 ALBUMIN (test code = 2141767099) 3.9 g/dL 3.5-5.0 ALK PHOS (test code = 6350919619) 122 U/L 34-122 ALTv (test code = 1742-6) 38 U/L 5-35 H AST(SGOT) (test code = 8901076928) 38 U/L 13-40 eGFR (test code = 21624-0) 19.1 mL/min/1.73m2 CKD-EPI eGFR (2020). Assuming creatinine has been stable day-to-day for at least three months, the eGFR indicates Category G4 (15 - 29 mL/min/1.73 m2) Lab Interpretation (test code = 36463-5) Abnormal [facility] CenterLIPASE2024-08-08 02:25:38* Test Item Value Reference Range Interpretation Comme nts LIPASE (test code = 8810718482) 95 U/L 0-220 Lab Interpretation (test cod e = 39194-9) Normal [facility] CenterPOCT [id number] 02:11:00* Test Item Value Reference Range Interpretation Comme nts POCT PREG (test code = 1605) Negative On board controls acceptable with C Line (test code = 3574) Yes POCT PREG LOT # (test code = 3575) [id number] POCT PREG TEST DATE ( test code = 3576) 11/17/2024 Lab Interpretation (test cod e = 37469-2) Normal [facility] ABDOMEN PELVIS WO [id number] 07:58:45ORDERING PHYSICIAN: ANGELO WARE ABDOMEN AND PELVIS CT WITHOUT INTRAVENOUS CONTRAST. DATE: ?06/17/2024 2:52 AM CLINICAL INDICATIONS: ?Left flank pain TECHNIQUE: ?Axial computed tomographic images ofthe abdomen and pelviswere obtained without intravenous contrast. CT scan was performed accordingtoALARA (As Low as Reasonably Achievable). COMPARISON: ?04/09/2024 Abdomen findings: Evaluation of lung bases demonstrates dependentatelectasis. The cardiac apex is unremarkable. Right nephrectomy has been performed. Several large renal angiomyolipomasare again identified which have replaced the left renal parenchyma. Thelargest lesion arises from the lateral aspect of the left renal cortex onimage 60 of series 2 measuring 10.0 x 8.2 cm which has increased in sizefrom 8.9 x 7.4 cm. There has been interval development of a moderate amountof blood products along the anterior left perinephric spacecompatible withhemorrhage of one of the renal angiomyolipomas. No evidence for obstructingureteral calculus or hydronephrosis is present. Several tiny cysts or fatty lesions are identified in the liver. Thespleen, pancreas, gallbladder and adrenal glands have an unremarkablenoncontrast appearance. The stomach, small bowel and colon demonstrate no evidence for obstructionor inflammation. A normal appendix is present in the right lower quadrant. A fat-containing midline ventral abdominal wall hernia is present. Noadenopathy is identified in the abdomen. No acute osseous abnormality isdemonstrated. Pelvis findings: The small bowel and colon are normal caliber. The urinarybladder demonstrates no abnormality. The uterus and ovaries have anunremarkable appearance. No adenopathy or free fluid are identified in thepelvis. No acute osseous abnormality is demonstrated.[facility] CenterLactic Acid Whole [id number] 07:43:42* Test Item Value Reference Range Interpretation Comme nts LACTIC ACID (test code = 7982115992) 1.35 mmol/L 0.50-2.20 Lab Interpretation (test cod e = 85353-0) Normal [facility] with [id number] 06:57:08* Test Item Value Reference Range Interpretation Comme nts WBC (test code = 6690-2) 16.21 4.30-11.10 H RBC (test code = 789-8) 2.44 3.93-5.25 L HGB (test code = 718-7) 7.5 g/dL 11.6-15.0 L HCT (test code = 4544-3) 23.4 % 35.7-45.2 L MCV (test code = 787-2) 95.9 fL 80.6-95.5 H MCH (test code = 785-6) 30.7 pg 25.9-32.8 MCHC (test code = 786-4) 32.1 g/dL 31.6-35.1 RDW-SD (test code = 95493-6) 46.1 fL 39.0-49.9 RDW-CV (test code = 788-0) 13.2 % 12.0-15.5 PLT (test code = 777-3) 330 166-358 MPV (test code = 24138-4) 9.6 fL 9.5-12.9 NRBC/100 WBC (test code = 5780838878) 0.0 0.0-10.0 NRBC x10^3 (test code = 5683949574) See_Comment [Automated message] The system which generated this result transmitted reference range: 10*3/?L. The reference range was not used to interpret this result as normal/abnormal. GRAN MAT (NEUT) % (test code = 770-8) 70.7 % IMM GRAN % (test code = 8296820217) 2.80 % LYMPH % (test code = 736-9) 14.6 % MONO % (test code = 5905-5) 11.2 % EOS % (test code = 713-8) 0.4 % BASO % (test code = 706-2) 0.3 % GRAN MAT x10^3(ANC) (test code = 5121998852) 11.47 10*3/uL 1.88-7.09 H IMM GRAN x10^3 (test code = 8429461265) 0.46 10*3/uL 0.00-0.06 H LYMPH x10^3 (test code = 731-0) 2.36 10*3/uL 1.32-3.29 MONO x10^3 (test code = 742-7) 1.81 10*3/uL 0.33-0.92 H EOS x10^3 (test code = 711-2) 0.06 10*3/uL 0.03-0.39 BASO x10^3 (test code = 704-7) 0.05 10*3/uL 0.01-0.07 Lab Interpretation (test code = 90609-3) Abnormal [facility] CenterComp. Metabolic Panel (56189)2024-06-17 06:44:45* Test Item Value Reference Range Interpretation Comme nts NA (test code = 8257120423) 137 mmol/L 135-145 K (test code = 5392853281) 3.8 mmol/L 3.5-5.0 CL (test code = 9746085818) 107 mmol/L 98-108 CO2 TOTAL (test code = 7760634472) 19 mmol/L 23-31 L AGAP (test code = 3355308766) 11 2-16 BUN (test code = 6792769709) 36 mg/dL 7-23 H GLUCOSE (test code = 4306239321) 100 mg/dL 70-110 CREATININE (test code = 2160-0) 3.26 mg/dL 0.50-1.04 H TOTAL BILI (test code = 1746816558) 0.2 mg/dL 0.1-1.1 CALCIUM (test code = 3047241018) 8.7 mg/dL 8.6-10.6 T PROTEIN (test code = 1101670619) 8.0 g/dL 6.3-8.2 ALBUMIN (test code = 2424607200) 4.4 g/dL 3.5-5.0 ALK PHOS (test code = 3704077807) 105 U/L 34-122 ALTv (test code = 1742-6) 12 U/L 5-35 AST(SGOT) (test code = 1733732597) 39 U/L 13-40 eGFR (test code = 36441-0) 18.5 mL/min/1.73m2 CKD-EPI eGFR (2020). Assuming creatinine has been stable day-to-day for at least three months, the eGFR indicates Category G4 (15 - 29 mL/min/1.73 m2) Lab Interpretation (test code = 78609-6) Abnormal [facility] CenterPOCT [id number] 06:00:00* Test Item Value Reference Range Interpretation Comme nts POCT PREG (test code = 1605) Negative On board controls acceptable with C Line (test code = 3574) Yes POCT PREG LOT # (test code = 3575) [id number] POCT PREG TEST DATE ( test code = 3576) 2025-03-22 Lab Interpretation (test cod e = 19931-6) Normal [facility] CenterCBC (H/H, RBC, INDICES,$WBC, PLT)-[id number] 23:00:00* Test Item Value Reference Range Interpretation Comme nts WHITE BLOOD CELL COUNT-Q (test code = 6690-2) 8.9 3.8-10.8 RED BLOOD CELL COUNT-Q (test code = 789-8) 3.58 3.80-5.10 L HEMOGLOBIN-Q (test code = 718-7) 10.7 g/dL 11.7-15.5 L HEMATOCRIT-Q (test code = 4544-3) 33.9 % 35.0-45.0 L MCV-Q (test code = 787-2) 94.7 fL 80.0-100.0 MCH-Q (test code = 785-6) 29.9 pg 27.0-33.0 MCHC-Q (test code = 786-4) 31.6 g/dL 32.0-36.0 L RDW-Q (test code = 788-0) 12.9 % 11.0-15.0 PLATELET COUNT-Q (test code = 777-3) 410 140-400 H MPV-Q (test code = 776-5) 10.0 fL 7.5-12.5 [place] (test code = [place]) PERFORMED BY [employer] [place]; [address] [place] [address]; BRANDO OWENS M.D. Lab Interpretation (test code = 73844-6) Abnormal [facility] CenterABO [id number] 02:03:00* Test Item Value Reference Range Interpretation Comme nts ABO & RH (test code = 20) O NEGATIVE [facility] CenterXR CHEST 2 [id number] 23:21:54EXAM:XR CHEST 2 VW HISTORY: 33 years-old Female; Indication for study: Pre transplantevaluation testing Pre transplant evaluation for same daytesting COMPARISON: None TECHNIQUE: Frontal and lateral chest radiographs were obtained. FINDINGS: Left chest wall durable medical equipment technician with its lead in the lower left neck,thought to be of the vagal nerve stimulator. Lungs/Pleura: Adequate lung volume. The lungs are clear with no focalconsolidation. There is no pleural effusion or pneumothorax. Heart/Mediastinum: The cardiomediastinal silhouette is normal. ? Bones and soft tissues: No acute abnormality detected. [facility] CenterTransthoracic echo (TTE)2024-04-09 23:11:12* Test Item Value Reference Range Interpretation Comme nts Height (test code = 0861376766) 61 in Weight (test code = 1610238162) 163 lbs Systolic BP (test code = 2177511793) 129 mmHg Diastolic BP (test code = 6676752427) 78 mmHg Heart Rate (test code = 8212067007) 77 bpm BSA (test code = 7414867239) 1.73 m2 Ao root diam (test code = 6551430190) 2.50 cm Aortic root (test code = 7905475110) 2.5 cm Ao root annulus (test code = 9251856365) 2.5 cm LA size (test code = 9176232168) 3.7 cm LVOT diameter (test code = 7203529718) 1.87 cm LVOT area (test code = 5618556722) 2.70 cm2 LVIDD (test code = 5251683430) 4.00 cm Left Ventricular End Diastolic Volume by Teichholz Method (test code = 5310368) 72.0 mL IVS (test code = 9315746244) 0.84 cm Interventricular Septum Diastolic Thickness by 2D (test code = 3612441) 0.84 cm LVPWD (test code = 3116493076) 0.82 cm PW (test code = 1720553333) 0.82 cm 0.6-1.1 EF(Teich) (test code = 9254976849) 63.20 % LVIDS (test code = 6232685116) 2.70 cm Left Ventricular End Systolic Volume by Teichholz Method (test code = 1237620) 26.5 mL FS (test code = 8239986567) 34 % EF - 2D (test code = 18782220) 63.20 % PV REGURGITATION PEAK GRADIENT (test code = 9096305394) 10.8 mmHg LAV(MOD-sp4) (test code = 5822746187) 28.20 mL MV Peak E Michelle (test code = 6228229010) 87.4 cm/s MV Peak A Michelle (test code = 0592183398) 59.1 cm/s E/A ratio (test code = 2162709514) 1.48 ratio E wave decelartion time (test code = 2847651090) 0.24 s MV E/e' septal (test code = 6824388183) 7.6 cm/s Tapse (test code = 7658570158) 2.09 cm LVOT stroke volume (test code = 0372410500) 60.10 cm3 LVOT peak michelle (test code = 8942320989) 116.5 cm/s LVOT mn grad (test code = 5103375313) 2.7 mmHg AV LVOT peak gradient (test code = 1689707179) 5.4 mmHg LVOT peak VTI (test code = 5197850597) 21.9 cm LV V1 mean (test code = 4712991380) 76.80 cm/s Aortic valve mean velocity (test code = 7716440261) 103.7 cm/s Ao peak michelle (test code = 9531244718) 166.8 cm/s Ao VTI (test code = 1602070104) 28.1 cm AV area by cont VTI (test code = 1002420582) 2.1 cm2 AV area peak michelle (test code = 2565381334) 1.9 cm2 Ao max PG (test code = 3971504468) 11.10 mm[Hg] AV peak gradient (test code = 2689159151) 11.1 mmHg AV valve area (test code = 4520052455) 2.14 cm2 AV mean gradient (test code = 3068815354) 5.0 mmHg LA Volume Index (BP) (test code = 8798494996) 18.7 mL/m2 LA volume (BP) (test code = 5339860849) 32.3 mL LAV(MOD-sp2) (test code = 9579877535) 33.00 mL Radiology Study observation (narrative) (test code = 99680-6) [place] (test code = [place]) ?Left?Ventricle: Left ventricle size is normal. Normal wall thickness. Septal motion is normal. Normal systolic function with a visually estimated EF of 60 - 65%. Normal diastolic function. Normal left ventricular filling pressure. ?Right?Ventricle: Right ventricle size is normal. Normal systolic function. ?Tricuspid?Valve: Trace transvalvular regurgitation. Insufficient tricuspid regurgitation jet to estimate RVSP . ?Pericardium: No pericardial effusion. Left VentricleLeft ventricle size is normal. Normal wall thickness. Septal motion is normal. Normal systolic function with a visually estimated EF of 60 - 65%. Normal diastolic function. Normal left ventricular filling pressure.Right VentricleRight ventricle size is normal. Normal systolic function.Left AtriumLeft atrium size is normal.Right AtriumRight atrium size is normal.IVC/SVCIVC diameter is less than or equal to 21 mm and decreases greater than 50% during inspiration; therefore the estimated right atrial pressure is normal (~0-5 mmHg).Mitral ValveMitral valve structure is normal. No transvalvular regurgitation. No stenosis.Tricuspid ValveTricuspid valve structure is normal. Trace transvalvular regurgitation. Insufficient tricuspid regurgitation jet to estimate RVSP . No stenosis.Aortic ValveTricuspid. No transvalvular regurgitation. No evidence of aortic stenosis.Pulmonic ValveValve structure is normal. Mild transvalvular regurgitation. No stenosis.Ascending AortaNormal sized aortic root.PericardiumThe pericardium is normal. No pericardial effusion.Study DetailsStudy quality was adequate. A complete echocardiogram was performed using 2D, color flow Doppler and spectral Doppler. 2 mL of Definity ultrasound enhancing agent used. Patient exhibited sinus rhythm. [facility] [id number] 19:45:53ORDERING PHYSICIAN: JAMILA K N GAMILLA-CRUDO ABDOMEN AND PELVIS CT WITHOUT INTRAVENOUS CONTRAST. DATE:?04/09/2024 2:42 PM CLINICAL INDICATIONS: ?Pre transplant evaluation for same day testing Pretransplant evaluation for same day testing TECHNIQUE: ?Axial computed tomographic images of the abdomen and pelviswere obtained without intravenous contrast. CT scan was performed accordingto ALARA (As Low as Reasonably Achievable). COMPARISON: ?None. 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 The cardiac apexis unremarkable. Right nephrectomy has been performed. There are numerous conglomerateangiomyolipomas throughout the left kidney which appear to have increasedin size since the previous exam. For example, a large lesion arising fromthe lateral aspect of the mid left renal cortex measuring 8.9 x 5.9 cm hasincreased in size from 6.4 x 5.1 cm. Tiny cysts are identified within the liver. The spleen, pancreas,gallbladder and adrenal glands have an unremarkable noncontrast appearance. The stomach, small bowel and colon demonstrate no evidence for obstructionor inflammation. A normal appendix is present right l ower quadrant. No adenopathy or free fluid are identified in the abdomen. No evidence foromental orperitoneal metastatic disease is present. No acute osseousabnormality is identified. Pelvis findings: The small bowel and colon are normal caliber. The urinarybladder demonstrates no abnormality. Theuterus and ovaries have anunremarkable appearance. No adenopathy or free fluid are identified in thepelvis. No acute osseous abnormality is identified.[facility] [id number] 09:00:00* Test Item Value Reference Range Interpretation Comme nts POCT PREG (test code = 1605) Negative On board controls acceptable with C Line (test code = 3574) Yes POCT PREG LOT # (test code = 3575) [id number] POCT PREG TEST DATE ( test code = 3576) 12/18/2024 Lab Interpretation (test cod e = 95230-0) Normal [facility],POST-[facility] RES,US,[id number] 14:54:00* Test Item Value Reference Range Interpretation Comme [facility] PVR (URINE VOLUME) (test code = 5193) 5 ml 0-100 Lab Interpretation (test cod e = 52808-2) Normal [facility],POST-VOID RES,US,[id number] 14:54:00* Test Item Value Reference Range Interpretation Comme nts PVR (URINE VOLUME) (test code = 5193) 5 ml 0-100 Lab Interpretation (test cod e = 26208-7) Normal [facility],POST-VOID RES,US,[id number] 14:54:00* Test Item Value Reference Range Interpretation Comme nts PVR (URINE VOLUME) (test code = 5193) 5 ml 0-100 Lab Interpretation (test cod e = 57901-5) Normal [facility] Urinalysis W Specific [id number] 16:03:00* Test Item Value Reference Range Interpretation Comme nts POCT U SP GRAV (test code = 3255) 1.020 mg/dl 1.005-1.025 POCT PH U (test code = 3254) 5 mg/dl 5-8 POCT U LEUK EST (test code = 3263) NEG Negative - Negative POCT U NIT (test code = 3262) NEG Negative - Negati ve POCT U PROT (test code = 3259) NEG Negative - Negative POCT U GLU (test code = 3256) NORMAL Negative - Negati ve POCT U KETONE (test code = 3258) NEG Negative - Negative POCT U UROBILI (test code = 3260) NEG 0.2-1 POCT U BILI (test code = 3261) NEG Negative - Negative POCT U BLD (test code = 3257) NEG Negative - Negati ve POCT U COLOR (test code = 3266) YELLOW POCT U APPEAR (test code = 3267) CLEAR Lab Interpretation (test cod e = 93238-3) Normal [facility] Urinalysis W Specific [id number] 16:03:00* Test Item Value Reference Range Interpretation Comme nts POCT U SP GRAV (test code = 3255) 1.020 mg/dl 1.005-1.025 POCT PH U (test code = 3254) 5 mg/dl 5-8 POCT U LEUK EST (test code = 3263) NEG Negative - Negative POCT U NIT (test code = 3262) NEG Negative - Negati ve POCT U PROT (test code = 3259) NEG Negative - Negative POCT U GLU (test code = 3256) NORMAL Negative - Negati ve POCT U KETONE (test code = 3258) NEG Negative - Negative POCT U UROBILI (test code = 3260) NEG 0.2-1 POCT U BILI (test code = 3261) NEG Negative - Negative POCT U BLD (test code = 3257) NEG Negative - Negati ve POCT U COLOR (test code = 3266) YELLOW POCT U APPEAR (test code = 3267) CLEAR Lab Interpretation (test cod e = 27744-4) Normal [facility] W Specific [id number] 16:03:00* Test Item Value Reference Range Interpretation Comme nts POCT U SP GRAV (test code = 3255) 1.020 mg/dl 1.005-1.025 POCT PH U (test code = 3254) 5 mg/dl 5-8 POCT U LEUK EST (test code = 3263) NEG Negative - Negative POCT U NIT (test code = 3262) NEG Negative - Negati ve POCT U PROT (test code = 3259) NEG Negative - Negative POCT U GLU (test code = 3256) NORMAL Negative - Negati ve POCT U KETONE (test code = 3258) NEG Negative - Negative POCT U UROBILI (test code = 3260) NEG 0.2-1 POCT U BILI (test code = 3261) NEG Negative - Negative POCT U BLD (test code = 3257) NEG Negative - Negati ve POCT U COLOR (test code = 3266) YELLOW POCT U APPEAR (test code = 3267) CLEAR Lab Interpretation (test cod e = 48074-7) Normal [facility] THORAX WO [id number] 18:04:02 PROCEDURE: CT CHEST WITHOUT CONTRAST - CHEST PROTOCOL CLINICAL INDICATION: 33 years-old Female withDiffuse/interstitial lungdisease . Comparison: ?CT chest exams dating back to 10/25/2019 TECHNIQUE:Volumetric images of the chest were acquired (from lung apicesto bases). Images were reconstructed at 2.5 mm slice thickness. MIP axialimages, coronal and sagittal reformats were also submitted forinterpretation. FINDINGS: Devices: Left chest wall hypoglossal nerve stimulator with leads in theleft neck. LUNGS AND PLEURA: The lungs are well- expanded. Multiple bilateral randomlydistributed round thin-walled pulmonary cysts of varying size. Unchangedill-defined patchy groundglass opacity in the right upper lobe. Unchanged 8mm right upper lobe groundglass nodule (series 4 image 49).No pleural abnormality detected. LYMPH NODES: Scattered small lymph nodes in both sides of the mediastinumand hilar regions. No evidence of intrathoracic lymphadenopathy. MEDIASTINUM AND LOWER NECK: No central airway lesions are detected. Theesophagus is within normal limits. The included thyroid gland appearsnormal. HEART AND GREAT VESSELS: The heart is normal in size. No pericardialabnormalities are identified. The RV to LV is normal.. The thoracic aorta is normal in caliber, with ?mild atherosclerotic plaque.The pulmonary trunk is normal in caliber. VISUALIZED UPPER ABDOMEN: Redemonstrated left kidney with multipleangiomyolipomas replacing the majority of the left kidney, increased from04/15/2021. OSSEOUS STRUCTURES AND SOFT TISSUES: Scattered sclerotic lesions in theposterior elements multiple thoracic vertebral bodies A a few in thesternum. The soft tissues appear normal.[facility] PULMONARY FUNCTION TEST (RESULTS)2023-11-22 13:49:09* Test Item Value Reference Range Interpretation Comme nts FVC Actual (test code = 3994) 2.97 L FEV1 Actual (test code = 3993) 2.69 L FEV1/FVC Actual (test code = 3995) 91 % [facility] Urinalysis w/o Specific [id number] 15:17:00* Test Item Value Reference Range Interpretation Comme nts POCT PH U (test code = 3254) 6 mg/dl 5-8 POCT U LEUK EST (test code = 3263) neg Negative - Negative POCT U NIT (test code = 3262) neg Negative - Negati ve POCT U PROT (test code = 3259) trace Negative - Negat ric POCT U GLU (test code = 3256) neg Negative - Negati ve POCT U KETONE (test code = 3258) neg Negative - Neg ative POCT U BLD (test code = 3257) neg Negative - Negati ve [facility]PO[facility] Ur[facility] w/o Specific [id number] 15:17:00* Test Item Value Reference Range Interpretation Comme nts POCT PH U (test code = 3254) 6 mg/dl 5-8 POCT U LEUK EST (test code = 3263) neg Negative - Negative POCT U NIT (test code = 3262) neg Negative - Negati ve POCT U PROT (test code = 3259) trace Negative - Negat ric POCT U GLU (test code = 3256) neg Negative - Negati ve POCT U KETONE (test code = 3258) neg Negative - Neg ative POCT U BLD (test code = 3257) neg Negative - Negati ve [facility] w/o Specific [id number] 15:17:00* Test Item Value Reference Range Interpretation Comme nts POCT PH U (test code = 3254) 6 mg/dl 5-8 POCT U LEUK EST (test code = 3263) neg Negative - Negative POCT U NIT (test code = 3262) neg Negative - Negati ve POCT U PROT (test code = 3259) trace Negative - Negat ric POCT U GLU (test code = 3256) neg Negative - Negati ve POCT U KETONE (test code = 3258) neg Negative - Neg ative POCT U BLD (test code = 3257) neg Negative - Negati ve [facility],POST-VOID RES,US,[id number] 00:00:00* Test Item Value Reference Range Interpretation Comme nts PVR (URINE VOLUME) (test code = 5193) 0 ml 0-100 [facility],POST-VOID RES,US,[id number] 00:00:00* Test Item Value Reference Range Interpretation Comme nts PVR (URINE VOLUME) (test code = 5193) 0 ml 0-100 [facility],POST-VOID RES,US,[id number] 00:00:00* Test Item Value Reference Range Interpretation Comme nts PVR (URINE VOLUME) (test code = 5193) 0 ml 0-100 [facility] CenterCULTURE, [id number] 10:45:38SPECIMEN NUMBER: [id number] CULTURE, URINE SPECIMEN NUMBER: [id number] SPECIMEN COMMENT: URINE SOURCE: URINE REPORT STATUS: FINAL FINAL REPORT: 09/21/2023 <10,000 CFU/ML UROGENITAL PAOLA PRESENT NO COMMON PATHOGENSINTACT [id number] 10:35:54* Test Item Value Reference Range Interpretation Comme nts INTACT PTH (test code = 5005) 145 PG/ML 15-65 H INTACT [id number] 10:06:40* Test Item Value Reference Range Interpretation Comme nts INTACT PTH (test code = 5005) 158 PG/ML 15-65 H UNLESS OTHERWISE INDICATED, ALL TESTING PERFORMED AT [facility] [address] [place], [place] [address] FUR COMBER: TOM COLLINS M.D. CLIA NUMBER [id number] [place]. [id number] VITAMIN D, 25 [id number] 06:52:58* Test Item Value Reference Range Interpretation Comme nts VITAMIN D, 25 OH (test code = 4958) 44 NG/ML SEE BELOW EFFECTIVE 07/2023, PLEASE NOTE NEW METHODOLOGY IS ELECTROCHEMILUMINESCENCE BINDING ASSAY. NOTE: 25-HYDROXYVITAMIN D ASSAY INCLUDES 25-HYDROXYVITAMIN D2 AND D3. INTERPRETIVE RANGES PEDIATRIC (<17 YEARS) . . . . . . . . . . . NG/ML 20-100ADULT: INSUFFICIENT . . . . . . . . . . . . . . NG/ML <20 SUBOPTIMAL . . . . . . . . . . . . . . . NG/ML 20-29 OPTIMAL . . . . . . . . . . . . . . . . . NG/ML 30-100 [id number] 06:44:55* Test Item Value Reference Range Interpretation Comme nts PHOSPHORUS (test code = 2227) 3.6 MG/DL 2.5-4.5 UNLESS OTHERWISE INDICATED, ALL TESTING PERFORMED AT [facility] [address] [place] [address] FUR COMBER: TOM COLLINS M.D. CLIA NUMBER [id number] [place]. [id number] LIPID [id number] 06:00:14* Test Item Value Reference Range Interpretation Comme nts CHOLESTEROL (test code = 2210) 196 MG/DL <200 TRIGLYCERIDES (test code = 2232) 286 MG/DL <150 H HDL CHOLESTEROL (test code = 2220) 27 MG/DL >39 L CALC LDL CHOL (test code = 2237) 125 MG/DL <100 H NOTE: CALCULATED LDL IS BASED ON DANIEL-MADDEN METHOD WHICHINCLUDES ADJUSTABLE TRIGLYCERIDE:VLDL CHOLESTEROL RATIO.THIS FACTOR VARIES BY MEASURED TRIGLYCERIDE AND NON-HDLCHOLESTEROL CONCENTRATIONS WITH INCREASED CALCULATED LDL SEENIN HIGHER TRIGLYCERIDE OR LOWER NON-HDL SPECIMENS. FOR MOREINFORMATION, SEE CLIENT ANNOUNCEMENT AT [email or web address] RISK RATIO LDL/HDL (test code = 223) 4.63 RATIO <3.22 H COMPREHENSIVE METABOLIC [id number] 06:00:14* Test Item Value Reference Range Interpretation Comme nts GLUCOSE (test code = 2216) 89 MG/DL 70-99 BUN (test code = 2207) 33 MG/DL 6-20 H CREATININE (test code = 221) 3.25 MG/DL 0.60-1.30 H eGFR (2020 CKD-EPI) (test co de = 42668) 19 ML/MIN/1.73 >60 L CALC BUN/CREAT (test code = 2235) 10 RATIO 6-28 SODIUM (test code = 223) 139 MEQ/L 133-146 POTASSIUM (test code = 2228) 5.2 MEQ/L 3.5-5.4 CHLORIDE (test code = 2215) 108 MEQ/L 95-107 H CARBON DIOXIDE (test code = 2206) 17 MEQ/L 19-31 L CALCIUM (test code = 220) 9.5 MG/DL 8.5-10.5 PROTEIN, TOTAL (test code = 222) 7.4 G/DL 6.1-8.3 ALBUMIN (test code = 2201) 4.4 G/DL 3.5-5.2 CALC GLOBULIN (test code = 2240) 3.0 G/DL 1.9-3.7 CALC A/G RATIO (test code = 2234) 1.5 RATIO 1.0-2.6 BILIRUBIN, TOTAL (test code = 2206) <0.2 MG/DL <=1.2 ALKALINE PHOSPHATASE (test code = 220) 94 U/L 40-114 AST (test code = 2218) 14 U/L 9-40 ALT (test code = 2219) 10 U/L 5-40 ALBUMIN/CREATININE RATIO, URINE, [id number] 05:04:11* Test Item Value Reference Range Interpretation Comme nts CREATININE, URINE, CONC. (test code = 2072) 93.9 MG/DL NOT ESTAB ALBUMIN, URINE, RANDOM (test code = 10432) 2.2 MG/DL NOT ESTAB CALC ALBUMIN/CREAT, RND (test code = 18529) 23 MG/G <30 Note: Albumin/Creatinine ratio reference interval reflects ADA and NKF guidelines. HEMOGLOBIN [id number] 04:41:19* Test Item Value Reference Range Interpretation Comme nts HEMOGLOBIN A1c (test code = 06471) 5.4 % 4.2-5.6 URINALYSIS WITH [id number] 03:18:39* Test Item Value Reference Range Interpretation Comme nts COLOR (test code = 1501) YELLOW YELLOW-STRAW APPEARANCE (test code = 1502) CLEAR CLEAR SPECIFIC GRAVITY (test code = 1503) 1.012 1.005-1.035 LEUKOCYTE ESTERASE (test cod e = 1504) NEGATIVE NEGATIVE NITRITE (test code = 1505) NEGATIVE NEGATIVE pH (test code = 1506) 6.5 5.0-9.0 PROTEIN (test code = 1507) TRACE NEGATIVE A GLUCOSE (test code = 1508) NEGATIVE NEGATIVE KETONES (test code = 1509) NEGATIVE NEGATIVE UROBILINOGEN (test code = 1510) 0.2 MG/DL <=2.0 BILIRUBIN (test code = 1511) NEGATIVE NEGATIVE OCCULT BLOOD (test code = 1512) NEGATIVE NEGATIVE WHITE BLOOD CELLS (test code = 1513) 0-5 /HPF 0-5 RED BLOOD CELLS (test code = 1514) 0-2 /HPF 0-2 EPITHELIAL CELLS (test code = 52723) 0-5 /HPF 0-10 BACTERIA (test code = 1515) NONE SEEN NONE SEEN CASTS, HYALINE (test code = 1517) NONE SEEN NONE-TRACE POCT [id number] 01:23:00* Test Item Value Reference Range Interpretation Comme nts POCT PREG (test code = 1605) Negative On board controls acceptable with C Line (test code = 3574) Yes POCT PREG LOT # (test code = 3578) [id number] POCT PREG TEST DATE ( test code = 3576) 11-15-2024 Lab Interpretation (test cod e = 65583-5) [facility]-AB WITH [id number] 17:57:25* Test Item Value Reference Range Interpretation Comme nts HIV Semi-quantitative (test code = 93634-4) Negative Negative [place] (test code = [place]) Non-reactive for HIV-1 antigen and HIV-1/HIV-2 antibodies. ?No laboratory evidence of HIV infection. ?Repeat in 2-4 weeks if acute HIV infection is suspected. [facility] METABOLIC PANEL (NA, K, CL, CO2, GLUCOSE, BUN, CREATININE, CA)2022-08-17 17:21:19* Test Item Value Reference Range Interpretation Comme [facility] NA (test code = 3941458191) 142 mmol/L 135-145 K (test code = 8748344836) 4.9 mmol/L 3.5-5 CL (test code = 4404143243) 106 mmol/L 98-108 CO2 TOTAL (test code = 5360793974) 21 mmol/L 23-31 L AGAP (test code = 7832615893) 2-16 BUN (test code = 7440406401) 25 mg/dL 7-23 H GLUCOSE (test code = 5891787491) 95 mg/dL 70-110 CREATININE (test code = 6871775423) 2.10 mg/dL 0.5-1.04 H CALCIUM (test code = 4764642619) 9.8 mg/dL 8.6-10.6 eGFR (test code = 0756468388) mL/min/1.73m2 [place] (test code = [place]) Association of [...] or abnormalities in imaging tests). Lab Interpretation (test code = 20654-7) Abnormal [facility] CenterPHOSPHORUS2022-10-05 17:20:59* Test Item Value Reference Range Interpretation Comme nts PHOSPHORUS (test code = 8546555161) 3.6 mg/dL 2.5-5 Lab Interpretation (test cod e = 97958-7) Normal [facility] CenterURIC [id number] 17:20:59* Test Item Value Reference Range Interpretation Comme nts URIC ACID (test code = 9970898549) 8.5 mg/dL 2.9-6 H Lab Interpretation (test cod e = 88802-8) Abnormal [facility] CenterCBC WITH [id number] 15:27:41* Test Item Value Reference Range Interpretation Comme nts WBC (test code = 6690-2) See_Comment [Automated [employer]] The system which generated this result transmitted reference range: 4.30 - 11.10 10*3/?L. The reference range was not used to interpret this result as normal/abnormal. RBC (test code = 789-8) See_Comment [Automated [employer]] The system which generated this result transmitted reference range: 3.93 - 5.25 10*6/?L. The reference range was not used to interpret this result as normal/abnormal. HGB (test code = 718-7) 12.1 g/dL 11.6-15 HCT (test code = 4544-3) 37.6 % 35.7-45.2 MCV (test code = 787-2) 94.2 fL 80.6-95.5 MCH (test code = 785-6) 30.3 pg 25.9-32.8 MCHC (test code = 786-4) 32.2 g/dL 31.6-35.1 RDW-SD (test code = 58934-9) 42.8 fL 39-49.9 RDW-CV (test code = 788-0) 12.3 % 12-15.5 PLT (test code = 777-3) See_Comment H [Automated messa ge] The system which generated this result transmitted reference range: 166 - 358 10*3/?L. The reference range was not used to interpret this result as normal/abnormal. MPV (test code = 76287-4) 9.5 fL 9.5-12.9 NRBC/100 WBC (test code = 3749793870) See_Comment [Automated [employer] ssage] The system which generated this result transmitted reference range: 0.0 - 10.0 /100 WBCs. The reference range was not used to interpret this result as normal/abnormal. NRBC x10^3 (test code = 2928757450) See_Comment [Automated messa ge] The system which generated this result transmitted reference range: 10*3/?L. The reference range was not used to interpret this result as normal/abnormal. GRAN MAT (NEUT) % (test code = 770-8) 68.1 % IMM GRAN % (test code = 0212934596) 0.70 % LYMPH % (test code = 736-9) 24.1 % MONO % (test code = 5905-5) 6.0 % EOS % (test code = 713-8) 0.6 % BASO % (test code = 706-2) 0.5 % GRAN MAT x10^3(ANC) (test code = 9498935331) 5.47 10*3/uL 1.88-7.09 IMM GRAN x10^3 (test code = 8155397063) 0.06 10*3/uL 0-0.06 LYMPH x10^3 (test code = 731-0) 1.94 10*3/uL 1.32-3.29 MONO x10^3 (test code = 742-7) 0.48 10*3/uL 0.33-0.92 EOS x10^3 (test code = 711-2) 0.05 10*3/uL 0.03-0.39 BASO x10^3 (test code = 704-7) 0.04 10*3/uL 0.01-0.07 Lab Interpretation (test code = 99944-0) Abnormal [facility], THIRD [id number] 05:36:56* Test Item Value Reference Range Interpretation Comme nts TSH, THIRD GENERATION (test code = 2821) 2.460 UIU/ML 0.400-4.100 UNLESS OTHERWISE INDICATED, [facility] [address] [place] [address] FUR COMBER: ARNIE HAYES M.D. CLIA NUMBER [id number] [facility] [place]. [id number] COMPREHENSIVE METABOLIC [id number] 03:24:51* Test Item Value Reference Range Interpretation Comme nts GLUCOSE (test code = 2217) 104 MG/DL 70-99 H BUN (test code = 2208) 33 MG/DL 6-20 H CREATININE (test code = 2214) 1.95 MG/DL 0.60-1.30 H eGFR (2020 CKD-EPI) (test code = 32424) 35 ML/MIN/1.73 >60 L CALC BUN/CREAT (test code = 2235) 17 RATIO 6-28 SODIUM (test code = 2231) 140 MEQ/L 133-146 POTASSIUM (test code = 2228) 4.2 MEQ/L 3.5-5.4 CHLORIDE (test code = 2215) 104 MEQ/L 95-107 CARBON DIOXIDE (test code = 2206) 21 MEQ/L 19-31 CALCIUM (test code = 2209) 9.7 MG/DL 8.5-10.5 PROTEIN, TOTAL (test code = 2229) 8.1 G/DL 6.1-8.3 ALBUMIN (test code = 2201) 4.7 G/DL 3.5-5.2 CALC GLOBULIN (test code = 2240) 3.4 G/DL 1.9-3.7 CALC A/G RATIO (test code = 2234) 1.4 RATIO 1.0-2.6 BILIRUBIN, TOTAL (test code = 2207) <0.2 MG/DL See_Comment [Automated me ssage] The system which generated this result transmitted reference range: <=1.2. The reference range was not used to interpret this result as normal/abnormal. ALKALINE PHOSPHATASE (test code = 2204) 134 U/L 40-114 H AST (test code = 2218) 12 U/L 9-40 ALT (test code = 2219) 11 U/L 5-40 FERRITIN [id number] 19:05:22* Test Item Value Reference Range Interpretation Comme nts FERRITIN (test code = 7316870491) 203.0 ng/mL 6.0-137.0 H [place] (test code = [place]) Biotin has been reported to cause a negative bias, interpret results relative to patient's use of biotin. Lab Interpretation (test code = 80328-6) Abnormal [facility] IRON BINDING [id number] 18:37:34 * Test Item Value Reference Range Interpretation Comme nts TIBC (test code = 9843037120) 271 ug/dL 250-410 Lab Interpretation (test cod e = 27424-5) Normal [facility]. METABOLIC PANEL (62308)2021-12-24 18:27:10* Test Item Value Reference Range Interpretation Comme nts NA (test code = 0094272678) 140 mmol/L 135-145 K (test code = 4774492094) 4.7 mmol/L 3.5-5.0 CL (test code = 8957795773) 108 mmol/L 98-108 CO2 TOTAL (test code = 5087210506) 21 mmol/L 23-31 L AGAP (test code = 5181680483) 2-16 BUN (test code = 1810457525) 22 mg/dL 7-23 GLUCOSE (test code = 5373080246) 83 mg/dL 70-110 CREATININE (test code = 7420204619) 2.00 mg/dL 0.50-1.04 H TOTAL BILI (test code = 9927606418) 0.4 mg/dL 0.1-1.1 CALCIUM (test code = 5126265599) 9.7 mg/dL 8.6-10.6 T PROTEIN (test code = 0115739976) 8.4 g/dL 6.3-8.2 H ALBUMIN (test code = 0962383595) 4.6 g/dL 3.5-5.0 ALK PHOS (test code = 6021598726) 125 U/L 34-122 H ALTv (test code = 1742-6) 13 U/L 5-35 AST(SGOT) (test code = 2455726931) 20 U/L 13-40 eGFR (test code = 7267289908) mL/min/1.73m2 [place] (test code = [place]) Association of [...] or abnormalities in imaging tests). Lab Interpretation (test code = 59399-7) Abnormal [facility] WITH [id number] 18:10:27* Test Item Value Reference Range Interpretation Comme nts WBC (test code = 6690-2) See_Comment [Automated [employer]] The system which generated this result transmitted reference range: 4.30 - 11.10 10*3/?L. The reference range was not used to interpret this result as normal/abnormal. RBC (test code = 789-8) See_Comment [Automated [employer] ge] The system which generated this result transmitted reference range: 3.93 - 5.25 10*6/?L. The reference range was not used to interpret this result as normal/abnormal. HGB (test code = 718-7) 12.1 g/dL 11.6-15.0 HCT (test code = 4544-3) 38.0 % 35.7-45.2 MCV (test code = 787-2) 94.1 fL 80.6-95.5 MCH (test code = 785-6) 30.0 pg 25.9-32.8 MCHC (test code = 786-4) 31.8 g/dL 31.6-35.1 RDW-SD (test code = 00462-5) 42.7 fL 39.0-49.9 RDW-CV (test code = 788-0) 12.4 % 12.0-15.5 PLT (test code = 777-3) See_Comment H [Automated [employer] ge] The system which generated this result transmitted reference range: 166 - 358 10*3/?L. The reference range was not used to interpret this result as normal/abnormal. MPV (test code = 86395-3) 9.9 fL 9.5-12.9 NRBC/100 WBC (test code = 1848634558) See_Comment [Automated Daily [employer] ssage] The system which generated this result transmitted reference range: 0.0 - 10.0 /100 WBCs. The reference range was not used to interpret this result as normal/abnormal. NRBC x10^3 (test code = 5861022070) <0.01 See_Comment [Automated [employer] ge] The system which generated this result transmitted reference range: 10*3/?L. The reference range was not used to interpret this result as normal/abnormal. GRAN MAT (NEUT) % (test code = 770-8) 66.2 % IMM GRAN % (test code = 6766497091) 1.20 % LYMPH % (test code = 736-9) 24.3 % MONO % (test code = 5905-5) 7.1 % EOS % (test code = 713-8) 0.8 % BASO % (test code = 706-2) 0.4 % GRAN MAT x10^3(ANC) (test code = 2131678403) 7.14 10*3/uL 1.88-7.09 H IMM GRAN x10^3 (test code = 6438905722) 0.13 10*3/uL 0.00-0.06 H LYMPH x10^3 (test code = 731-0) 2.62 10*3/uL 1.32-3.29 MONO x10^3 (test code = 742-7) 0.76 10*3/uL 0.33-0.92 EOS x10^3 (test code = 711-2) 0.09 10*3/uL 0.03-0.39 BASO x10^3 (test code = 704-7) 0.04 10*3/uL 0.01-0.07 Lab Interpretation (test code = 15299-9) [facility]2020-10-22 00:00:00* Test Item Value Reference Range Interpretation Comme nts Glucose (test code = 2345-7) 83 65-99 BUN (test code = 3094-0) 14 6-20 Creatinine (test code = 2160-0) 1.10 0.57-1.00 eGFR If NonAfricn Am (test c ode = 20289-7) 68 >59 eGFR If Africn Am (test code = 61586-0) 78 >59 BUN/Creatinine Ratio (test c ode = 3097-3) 13 9-23 Sodium (test code = 2951-2) 140 134-144 Potassium (test code = 2823-3) 4.9 3.5-5.2 Chloride (test code = 2075-0) 106 96-106 Carbon Dioxide, Total (test code = 2027-9) 21 20-29 Calcium (test code = 20798-8) 9.6 8.7-10.2 Protein, Total (test code = 2885-2) 7.6 6.0-8.5 Albumin (test code = 1751-7) 4.3 3.9-5.0 Globulin, Total (test code = 79008-6) 3.3 1.5-4.5 A/G Ratio (test code = 1759-0) 1.3 1.2-2.2 Bilirubin, Total (test code = 1974-2) 0.2 0.0-1.2 Alkaline Phosphatase (test c ode = 6768-6) 115 39-117 AST (SGOT) (test code = 1920-8) 30 0-40 ALT (SGPT) (test code = 1742-6) 32 0-32 CBC With Differential/[id number] 00:00:00* Test Item Value Reference Range Interpretation Comme nts WBC (test code = 6690-2) 7.7 3.4-10.8 [...] = UNLOINC) Neutrophils (Absolute) (test code = 751-8) 5.0 1.4-7.0 Lymphs (Absolute) (test code = 731-0) 2.0 0.7-3.1 Monocytes(Absolute) (test code = 742-7) 0.5 0.1-0.9 Eos (Absolute) (test code = 711-2) 0.1 0.0-0.4 Baso (Absolute) (test code = 704-7) 0.0 0.0-0.2 Immature Granulocytes (test code = 24461-0) 1 Not Estab. Immature Grans (Abs) (test c ode = 74571-2) 0.1 0.0-0.1 NRBC (test code = 65782-2) Hematology Comments: (test c ode = 81504-4) [O] Urine Dipstick (In Office)2018-05-01 10:25:00* Test Item Value Reference Range Interpretation Comme nts LEUKOCYTES (test code = LEUKOCYTES) Negative N NITRITE; Normal (test code = 54467-7) Negative N UROBILINOGEN; Normal (test c ode = 24858-5) 0.2 N PROTEIN (test code = 78084-6) 30 pH (test code = pH) 7.0 N URINE BLOOD (test code = 48245-1) Trace-Intact SPECIFIC GRAVITY; Normal (te st code = 2965-2) 1.020 N KETONES; Normal (test code = 43193-2) Negative N BILIRUBIN; Normal (test code = 09677-5) Neative N GLUCOSE; Normal (test code = 1547-9) Negative N MD Physicians Consult Notes Date/Time Note Provider Source 2024-06-20 00:01:37 Associated Order(s): CONSULT UROLOGY UROLOGY CONSULTATION NOTE Requesting Physician: No ref. provider found Date of Service: 06/20/2024 Reason for Consult: bleeding angiomyolipoma History of Present Illness Kitty Marx, 33 year old female with PMH of tuberous sclerosis , CKD 4, seizure disorder and bilateral angiomyolipomas c/b episodic bleeding requiring IR intervention and eventually right nephrectomy 11/2019 who presents to ED with worsening left sided abdominal pain and nausea onset one week. Was first evaluated in ED 06/17 for these symptoms and found to have tachycardia, hemoglobin of 7.5 (from baseline of 10.7). CTAP non-con at that time showed worsening large left renal angiomyolipomas with likely perinephric hemorrhage. Patient left AMA prior to transfer to [facility] for further evaluation. Re-presented tonight for worsening abdominal pain, shortness of breath, chest pain. In ED she is afebrile. Tachycardic to 124, BP 137/89. Hb not significantly changed, 7.[address] angiogram shows not significantly unchanged hematoma without obvious definitve extravasation. Negative ACS workup. Normal coags. UA with microhematuria and bacteria (UCX growing lactobacillus). There is leukocytosis to 13.38. Medications: Home Medications: (Not in a hospital admission) Hospital Medications: Current Facility-Administered Medications Medication Dose Route Frequency Last Rate Last Admin NaCl 0.9% (NS) bolus infusion 1,500 mL 1,500 mL IV Piggyback ONCE medroxyPROGESTERone (DEPO-PROVERA) syringe 150 mg 150 mg Intramuscular V8YUJHOR 150 mg at 06/18/24 0856 Current Outpatient Medications Medication Sig Dispense Refill METOPROLOL SUCCINATE XL 25 mg 24 hr tablet TAKE 1 TABLET BY MOUTH EVERY DAY IN THE MORNING 30 tablet 5 busPIRone 7.5 mg tablet Take 1 tablet by mouth in the morning and 1 tablet in the evening. escitalopram oxalate 20 mg tablet Take 1 tablet by mouth in the morning. lamoTRIgine 100 mg tablet Take 1 tablet by mouth in the morning and 1 tablet in the evening. omeprazole 20 mg capsule Take 1 capsule by mouth in the morning. Lamotrigine 100 mg TbDL Take 1 tablet by mouth 2 (two) times daily. 60 tablet 5 albuterol (PROAIR HFA) 90 mcg/actuation inhaler INHALE 1 TO 2 PUFFS BY MOUTH EVERY 4 TO 6 HOURS NEEDED 8.5 g 1 Histories: Past Medical History: Diagnosis Date Angiomyolipoma of both kidneys Anxiety 01/04/2021 resolved per pt Asthma Bacterial vaginitis 08/31/2020 Benign brain tumor Cervical high risk human papillomavirus (HPV) DNA test positive 08/31/2020 Chronic kidney disease Depression resolved Gastritis 08/22/2021 Genital herpes 08/31 Denies outbreaks Iron deficiency 08/28/2020 Kidney tumor RLS (restless legs syndrome) 01/04/2021 Seizures on medication at this time Suicidal ideation Tuberous sclerosis Vitamin B6 deficiency 12/09/2020 Vitamin D deficiency 12/09/2020 Past Surgical History: Procedure Laterality Date ESOPHAGOGASTRODUODENOSCOPY N/A 2021 Surgeon: Joshua Lopez MD; Location: [place] OR [facility] IR EMBOLIZATION ARTERIAL OTHER THAN HEMORRHAGE Left 12/18/2020 L renal 1st superior seg AML IR EMBOLIZATION ARTERIAL OTHER THAN HEMORRHAGE Left 03/10/2021 L renal 2nd superior seg AML NEPHRECTOMY Right 11/19/2019 Surgeon: Hi Greenfield MD; Location: [place] [facility] OTHER stimulant for seizure to left breast RENAL ARTERY EMBOLIZATION Right 09/2019 had another one in 2016 at [facility] SURGERY,BRAIN/SPINE,W/COMPUTER TOOTH EXTRACTION 2019 Family History Problem Relation Age of Onset Other - see comments Mother angiomyolipoma Kidney failure Mother Other - see comments Brother angiomyolipoma, brain tumor MS (multiple sclerosis) Father Hypothyroidism Other Stroke Maternal Aunt DC (myocardial infarction) Maternal Aunt Hypertension Maternal Grandmother Hypercholesterolemia Maternal Grandmother Social History Socioeconomic History Marital status: Single Number of children: 0 Highest education level: High school graduate Occupational History Occupation: disabled Tobacco Use Smoking status: Never Smokeless tobacco: Never Substance and Sexual Activity Alcohol use: Never Drug use: Never Sexual activity: Yes Partners: Male control/protection: Injection Comment: last intercourse:03/23/2024 Social History Narrative Patient lives with partner. Denies any physical or sexual abuse Feels safe at home. Single, no children. Social Determinants of Health Financial Resource Strain: Patient Declined (01/02/2024) Overall Financial Resource Strain (CARDIA) Difficulty of Paying Living Expenses: Patient declined Food Insecurity: Patient Declined (01/02/2024) Hunger Vital Sign Worried About Running Out of Food in the Last Year: Patient declined Ran Out of Food in the Last Year: Patient declined Transportation Needs: Patient Declined (01/02/2024) PRAPARE - Transportation Lack of Transportation (Medical): Patient declined Lack of Transportation (Non-Medical): Patient declined Allergies: No Known Allergies Review of Systems: Per HPI Physical Exam: Blood pressure 134/89, pulse 120, temperature 36.4 ?C (97.6 ?F), temperature source Oral, resp. rate 19, height 1.549 m (5' 1"), weight 72.6 kg (160 lb), SpO2 98%. Constitutional: no acute distress Cardiovascular: tachycardia Respiratory: respirations unlabored on room air Gastrointestinal: left abdominal pain and flank pain Skin: no rashes Neurologic: alert and oriented x3 Labs (last 24 hours): Chemistry CBC LFTs Coags, other 140 109 (H) 33 (H) 122 (H) 13.38 (H) 7.2 (L) 397 (H) AST: 38 ALT: 38 (H) PT: 11.5 INR: 1.0 4.2 19 (L) 3.17 (H) 22.4 (L) AP: 122 T Kuldip: 0.3 PTT: 32 eGFR: 19.1 Ca: 8.7 % Kasandra: 73.4 Prot: 7.2 Alb: 3.9 Lact: - Procal: - Mg: - PO4: - ANC: 9.82 (H) pBNP: - Trop I: 0.007 Radiology: CT ANGIOGRAM ABDOMEN/PELVIS Result Date: 06/19/2024 Redemonstration of very large left angiomyolipoma versus multiple angiomyolipomas in the left kidney, essentially replacing the left renal parenchyma, measuring 12.8 x 12.8 x 21 cm. Left perinephric hematoma is not significantly changed compared to previous exam of 06/17/2024. There are multiple dystrophic arterial branches supplying the angiomyolipoma, but no definite active extravasation into the perinephric hematoma. The density of the hematoma does not telephone exchange operator the course of the exam. 23 mm dominant follicle in the right ovary without significant free fluid in the pelvis. Status post right nephrectomy RL: 460 AFC: [id number] ABDOMEN PELVIS WO CONTRAST Result Date: 06/17/2024 1. Several large renal angiomyolipomas have replaced the left renal parenchyma. The largest lesion arises from the lateral left renal cortex measuring 10.0 x 8.2 cm which has increased in size from 8.9 x 7.4 cm undergone prior study. One of these lesions has undergone hemorrhage with blood products in the anterior aspect of the left perinephric space. Active bleeding cannot be excluded on this noncontrast study. 2. Several tiny cysts or fatty lesions are identified throughout the liver. 3. Right nephrectomy has been performed. 4. A fat-containing midline ventral abdominal wall hernia is present. RL: 5767 Assessment: 33 yo F with tuberous sclerosis presenting with perinephric hematoma 2/2 large left angiomyolipoma... prior right nephrectomy. She is tachycardic to 124 with abdominal pain and some chest pain (negative ACS workup per ED) c/f symptomatic anemia Hemoglobin stable last three days, and CT seems to demonstrate likely stable left renal hematoma with minimal extravasation Recommendations: - medicine admission - type and cross - trend hemoglobin, transfuse for Hb < 7...consider transfusion 1U PRBC at this time for symptomatic anemia and borderline hemoglobin - NPO - IR consult to assess need for possible embolization - Trend urine output and kidney function. Discussed with Dr. Tinoco . Fahad Tenorio MD Urology Resident Pager: please page decommissioning well site manager using [employer] Associated attestation - Gaurav Tinoco MD - 06/20/2024 7:59 AM CDT I personally examined the patient on 06/20/[address] Tenorio's resident note as written. I actively participated in the decision-making process. Please see the resident's note for additional details. She has minimal reserve as far as renal function, would suggest conservative management (obs, bedrest, transfuse PRN) and reserve embolization for hemodynamic instability or failed conservative management. Will follow closely. Gaurav Tinoco MD 06/20/2024 7:58 AM [facility] - Health History and Physical Notes Date/Time Note Provider Source 2024-06-20 00:41:55 EVIN Van History & Physical PCP: Preet Ortiz Date of Service: 06/20/2024 CHIEF COMPLAINT: Chief Complaint Patient presents with Abdominal Pain HISTORY OF PRESENT ILLNESS Kitty Marx is a 33 year old female with a PMH of tuberous sclerosis, left renal angiomyolipoma, right renal angiomyolipoma s/p nephrectomy (2019), benign brain tumor, seizures, CKD IV, asthma, and anxiety/depression who presents for abdominal pain. Patient reports she started having left abdominal pain, nausea, and vomiting last Monday. She's vomited 4 times since then and has been unable to keep food or fluids down. Denies pain or burning with urination or hematuria but states she could smell blood when urinating. Also notes she's been urinating less, has left sided abdominal swelling, and generalized weakness. Has not taken anything to control the nausea but tried tylenol for the pain but did not seem to help. Of note, she went to the ED in [place] on 06/17 for the same symptoms where CTAP showed worsening angiomyolipomas and concern for possible hemorrhage from one of the lesions. She was advised to transfer to [place] ED but she wanted to go home to relax and wait for the pain to go away so left AMA. After leaving the [place] ED her abdominal pain, nausea, and vomiting persisted so she came to the ED tonight. She also began having chest pain, shortness of breath, some difficulty speaking, lightheadedness with standing up, and subjective fever. Has been told her palms look pale. Reports lightheadness with standing up. Patient states her mother had tuberous sclerosis so she has known of her diagnosis but her kidney issues did not start until more recently. She was unaware of the left kidney tumor but is currently on the transplant waiting list. Her last seizure was 5 years ago. In the ED afebrile, HR 124, BP 137/89. WBC 13.38, Hgb 7.2 (7.5 at [place]), Cr 3.17, trop 0.007. UA with few bacteria and 1+ blood. CT angiogram abd/pelvis showing very large left angiomyolipoma vs multiple angiomyolipomas in left kidney with left perinephric hematoma not significantly changed from previous imaging. Past medical history: has a past medical history of Angiomyolipoma of both kidneys, Anxiety (01/04/2021), Asthma, Bacterial vaginitis (08/31/2020), Benign brain tumor, Cervical high risk human papillomavirus (HPV) DNA test positive (08/31/2020), Chronic kidney disease, Depression, Gastritis (08/22/2021), Genital herpes (08/31), Iron deficiency (08/28/2020), Kidney tumor, RLS (restless legs syndrome) (01/04/2021), Seizures, Suicidal ideation, Tuberous sclerosis, Vitamin B6 deficiency (12/09/2020), and Vitamin D deficiency (12/09/2020). Past surgical history: has a past surgical history that includes nephrectomy (Right, 11/19/2019); renal artery embolization (Right, 09/2019); other; tooth extraction (2019); surgery,brain/spine,w/computer; ir embolization arterial other than hemorrhage (Left, 12/18/2020); ir embolization arterial other than hemorrhage (Left, 03/10/2021); and esophagogastroduodenoscopy (N/A, 2021). Social history: reports that she has never smoked. She has never used smokeless tobacco. She reports that she does not drink alcohol and does not use drugs. Family history: family history includes Hypercholesterolemia in her maternal grandmother; Hypertension in her maternal grandmother; Hypothyroidism in an other family member; Kidney failure in her mother; DC (myocardial infarction) in her maternal aunt; MS (multiple sclerosis) in her father; Other - see comments in her brother and mother; Stroke in her maternal aunt. Allergies: No Known Allergies MEDICATIONS Current Outpatient Medications Medication Instructions albuterol (PROAIR HFA) 90 mcg/actuation inhaler INHALE 1 TO 2 PUFFS BY MOUTH EVERY 4 TO 6 HOURS NEEDED busPIRone (BUSPAR) 7.5 mg, Oral, BID escitalopram oxalate (LEXAPRO) 20 mg, Oral, DAILY lamoTRIgine (LAMICTAL) 100 mg, Oral, BID Lamotrigine 100 mg TbDL 1 tablet, Oral, BID METOPROLOL SUCCINATE XL 25 mg 24 hr tablet TAKE 1 TABLET BY MOUTH EVERY DAY IN THE MORNING omeprazole (PRILOSEC) 20 mg, Oral, DAILY REVIEW OF SYSTEMS Per HPI PHYSICAL EXAMINATION Vitals: 06/19/24 2215 06/19/24 2330 06/20/24 0000 06/20/24 0200 BP: 130/79 134/89 132/89 137/83 Pulse: 119 120 120 122 Resp: 19 19 19 19 Temp: TempSrc: SpO2: 98% 98% 96% 97% Weight: Height: General: alert, no acute distress Lungs: clear to auscultation bilaterally Cardio: S1, S2 normal; no murmurs, rubs or gallops, regular rhythm, tachycardic Abdomen: soft; distended; TTP L abdomen, suprapubic tenderness Extremities: trace edema BLE Skin: no rashes Neuro: no focal deficits LABS/IMAGING: reviewed CHART REVIEW: ASSESSMENT/PLAN Kitty Marx is a 33 year old female with PMH as listed above, admitted to the hospital with: Left renal angiomyolipoma c/b perinephric hematoma Right renal angiomyolipoma s/p R nephrectomy Symptomatic Anemia BRYAN on CKD Stage IV Nausea, vomiting Tachycardia Patient with history of tuberous sclerosis and R renal angiomyolipoma s/p R renal nephrectomy and newly diagnosed L renal angiomyolipoma complicated by perinephric hematoma. Presented with abdominal pain, nausea, vomiting. On exam patient tachycardic with abdominal tenderness. Hgb in ED was 7.2, down from 7.5 in [place], and further down from ~10 2 months ago. Also with chest tightness and SOB, suspected due to symptomatic anemia since cardiac workup unremarkable. L perinephric hematoma appears unchanged from recent imaging. Will trend H&H tonight and transfuse as needed. Will consult IR for possible embolization and drainage and keep NPO in preparation for possible procedure. Meanwhile treating nausea and pain. Plan - Admit to [place] - Admit labs - IR consult for possible embolization in AM - Trend H/H, transfuse if hgb <7 - If becomes hemodynamically unstable, will reach out to IR tonight - NPO past midnight - Orthostatic vitals - Pain control - Anti-emetics Chronic conditions: Benign brain tumor Seizures Anxiety/depression Asthma HTN Chronic, stable - c/w home lamotrigine, lexapro, albuterol - holding home metoprolol due to bleed Prophylaxis: DVT- Contraindicated: Cranial/GI Bleeding or other Hemorrhage present Code Status: Code Status: Full Code Melonie Grossman MD Department of Internal Medicine, PGY1 I personally examined the patient on 06/20/2024 and have verified resident's documentation and/or findings, including the history, physical exam, and medical decision making. Additionally, I have personally performed or re-performed the physical exam and medical decision making activities of this patient's evaluation and management service. Filemon Cantrell DO Dept of Internal Medicine PGY-2, [facility] Associated attestation - Darien Cornejo MD - 06/20/2024 4:41 AM CDT I personally examined the patient and discussed the plan of this patient's care with Dr. Cantrell and Dr. Grossman on 06/20/2024 . I agree with resident's note as written. Darien Cornejo MD Internal Medicine [facility] - Health Notes Date/Time Note Provider Source 2024-06-22 10:15:29 Problem: Pain Goal: Control of pain at or below patient's documented comfort goal Outcome: Progressing as expected Goal: Reduction in pain sensation Outcome: Progressing as expected Problem: Infection Risk Goal: Absence of infection Outcome: Progressing as expected Problem: Skin integrity Impaired (Risk or Actual) Goal: Prevention of new skin breakdown Outcome: Resolved Keisha Garrison RN [facility] 2024-06-21 20:10:34 Problem: Pain Goal: Control of pain at or below patient's documented comfort goal Outcome: Progressing as expected Goal: Reduction in pain sensation Outcome: Progressing as expected Problem: Infection Risk Goal: Absence of infection Outcome: Progressing as expected Problem: Skin integrity Impaired (Risk or Actual) Goal: Prevention of new skin breakdown Outcome: Progressing as expected Avery Mehta RN [facility] 2024-06-21 09:59:14 Problem: Pain Goal: Control of pain at or below patient's documented comfort goal Outcome: Progressing as expected Goal: Reduction in pain sensation Outcome: Progressing as expected Problem: Skin integrity Impaired (Risk or Actual) Goal: Prevention of new skin breakdown Outcome: Progressing as expected [facility] 2024-06-20 18:40:13 Problem: Pain Goal: Control of pain at or below patient's documented comfort goal Outcome: Progressing as expected Goal: Reduction in pain sensation Outcome: Progressing as expected Problem: Infection Risk Goal: Absence of infection Outcome: Progressing as expected Problem: Skin integrity Impaired (Risk or Actual) Goal: Prevention of new skin breakdown Outcome: Progressing as expected IAM Chawla RN [facility] 2024-06-20 03:22:41 Report to ANN MARIE Tolentino. Rns discussed plan of care and further recommendations. Transport orders placed. Steffanie Busch RN [facility] 2024-06-20 02:38:21 Per floor receiving RN unavailable at this time. Will re-attempt to call report. [facility] 2024-06-20 00:58:51 IM at bedside [facility] 2024-06-19 22:51:21 Pt reporting she is in pain, ED MD notified. [facility] 2024-06-19 22:14:45 Patient returned to room from CT, RR E/U, NAD noted. Tyra Huertas RN [facility] 2024-06-19 21:48:00 Kitty Marx is a 33 year old female who presents to the ED via triage with a CC of abdominal pain. Pt reports she was seen at [facility] and was told she had a mass on her L kidney, pt reports hx of nephrectomy to the R side. Pt reporting that she also has a hernia and her mother had hx of kidney problems and from them. Pt also reports occasional pains to the chest. Pt alert and oriented x4, RR even and unlabored, skin warm and dry, appropriate for color. Please see focused GI assessment. Pt placed on monitors, labs drawn, PIV placed. Pending further orders. T [facility] 2024-06-19 21:06:44 Pt ambulatory to restroom with steady gait and urine cup T [facility] 2024-06-19 20:57:41 Chart review from visit on 06/17 patient with hx of nephrectomy due to multiple tumors and patient refused transfer and signed out AMA. [facility] 2024-06-19 20:53:57 Patient very fearful she is going to from hernia because her mother from hernia and kidney disease. [facility] 2024-06-19 20:47:23 Kitty Marx is a 33 year old female presents to ed via wc with complaint of abd pain. Patient reports was seen at o[facility] and told that she had tumor that ruptured in her kidney and that she has a hernia, points to somewhere in her abd that could have blood. Patient reports was seen at OSH on Monday and was told they can't help her because they don't have surgeon or kidney doctor. 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 Abdominal and back pain that started around Monday-Monday of last week. Patient had a recent ED visit in [place] with the same chief complaint where a CT abdomen pelvis w/ contrast revealed multiple large renal angiomyolipomas with one lesion with hemorrhage, Midline ventral abdominal wall hernia also present. Patient was advised to transfer to [facility] per ED note, however it appears patient left AMA, electing to receive outpatient treatment. Patient is now presenting to [facility] with symptoms as mentioned above as well as chest pain, occasional shortness of breath, and endorsing not urinating as frequently. Past Medical History/Immunizations: Past Medical History: Diagnosis Date Angiomyolipoma of both kidneys Anxiety 01/04/2021 resolved per pt Asthma Bacterial vaginitis 08/31/2020 Benign brain tumor Cervical high risk human papillomavirus (HPV) DNA test positive 08/31/2020 Chronic kidney disease Depression resolved Gastritis 08/22/2021 Genital herpes 08/31 Denies outbreaks Iron deficiency 08/28/2020 Kidney tumor RLS (restless legs syndrome) 01/04/2021 Seizures on medication at this time Suicidal ideation Tuberous sclerosis Vitamin B6 deficiency 12/09/2020 Vitamin D deficiency 12/09/2020 Tetanus received in last 5 years: Unknown Childhood immunizations: Up-to-date Allergies: No Known Allergies Past Social History: Tobacco Use Never smoked or used smokeless tobacco. Alcohol Use Never. Drug Use Never. Sexual Activity Sexually active; Partners: Male; Control/Protection: Injection. Comments: last intercourse:03/23/2024 Past Surgical History: Past Surgical History: Procedure Laterality Date ESOPHAGOGASTRODUODENOSCOPY N/A 2021 Surgeon: Joshua Lopez MD; Location: [facility] Location IR EMBOLIZATION ARTERIAL OTHER THAN HEMORRHAGE Left 12/18/2020 L renal 1st superior seg AML IR EMBOLIZATION ARTERIAL OTHER THAN HEMORRHAGE Left 03/10/2021 L renal 2nd superior seg AML NEPHRECTOMY Right 11/19/2019 Surgeon: Hi Greenfield MD; Location: [facility] OTHER stimulant for seizure to left breast RENAL ARTERY EMBOLIZATION Right 09/2019 had another one in 2016 at [facility],BRAIN/SPINE,W/COMPUTE R TOOTH EXTRACTION 2019 Review of Systems: Review of Systems Physical Exam: ED Triage Vitals [06/19/242048] Weight 72.6 kg (160 lb) Actual or estimated Estimated by patient/family report Height 1.549 m (5' 1") BP 137/89 Pulse 124 Resp 20 Temp 36.4 ?C (97.6 ?F) Temp source Oral SpO2 99 % Measured on Room air Physical Exam Constitutional: Comments: Patient is lying uncomfortably in bed in mild distress HENT: Mouth/Throat: Mouth: Mucous membranes are moist. Pharynx: Oropharynx is clear. Cardiovascular: Rate and Rhythm: Tachycardia present. Pulses: Normal pulses. Radial pulses are 2+ on the right side and 2+ on the left side. Posterior tibial pulses are 2+ on the right side and 2+ on the left side. Heart sounds: Normal heart sounds. No murmur heard. Pulmonary: Effort: Pulmonary effort is normal. No respiratory distress. Breath sounds: Normal breath sounds. No stridor. No wheezing or rhonchi. Abdominal: General: There is distension. Tenderness: There is abdominal tenderness (mid abdominal and L. sided diffuse abdominal tenderness). There is right CVA tenderness and left CVA tenderness. There is no guarding or rebound. Skin: General: Skin is warm and dry. Radiology: CT ANGIOGRAM ABDOMEN/PELVIS Final Result Ordering physician: APOLINAR SANCHEZ Indication: Large left angiomyolipoma with perinephric hematoma COMPARISON: CT of the abdomen and pelvis dated 06/17/2024 TECHNIQUE: CTA of the abdomen and pelvis was performed before and after the administration of intravenous contrast material. Three-dimensional reformats were generated on completion of the exam. CT scan was performed according to ALARA (as low as reasonably achievable) policy. FINDINGS: There is linear atelectasis or scarring in the bilateral lower lobes. There are subcentimeter hypoattenuating foci in both lobes of the liver, too small to characterize. The gallbladder, spleen, adrenal glands and pancreas are within normal limits. The patient is status post right nephrectomy. There is a very large left angiomyolipoma versus multiple angiomyolipomas in the left kidney, essentially replacing the left renal parenchyma, measuring 12.8 x 12.8 x 21 cm (series 501, image 50). There is a small amount of hyperdense fluid in the surrounding perinephric fat, grossly stable compared to previous exam of 06/17/2024. This is difficult to measure given its configuration, but the largest anterior component measures approximately 10.2 x 2.8 x 11.5 cm, versus 12.4 x 2.9 x 11.7 on the previous exam. There are multiple arterial structures supplying the angiomyolipoma. Many of these are dysmorphic, but there is no definite active extravasation into the perinephric hematoma. The density of the perinephric hematoma does not telephone exchange operator the course of the exam. There is no abdominal aortic aneurysm or dissection. No hemodynamically significant stenosis is appreciated in the aortic branch vessels. There is no free fluid in the pelvis. There is a dominant follicle in the right ovary measuring 23 mm (series 6, image 107). There is no bowel obstruction, widespread diverticulosis or acute diverticulitis. The appendix is identified and within normal limits. Bone windows through the abdomen and pelvis demonstrate no osseous destructive lesion. IMPRESSION Redemonstration of very large left angiomyolipoma versus multiple angiomyolipomas in the left kidney, essentially replacing the left renal parenchyma, measuring 12.8 x 12.8 x 21 cm. Left perinephric hematoma is not significantly changed compared to previous exam of 06/17/2024. There are multiple dystrophic arterial branches supplying the angiomyolipoma, but no definite active extravasation into the perinephric hematoma. The density of the hematoma does not telephone exchange operator the course of the exam. 23 mm dominant follicle in the right ovary without significant free fluid in the pelvis. Status post right nephrectomy RL: [id number] AFC: [id number] Lab Results: Lab Results COMP. METABOLIC PANEL (24963) - Abnormal Result Value Ref Range NA 140 135 - 145 mmol/L K 4.2 3.5 - 5.0 mmol/L CL 109 (*) 98 - 108 mmol/L CO2 TOTAL 19 (*) 23 - 31 mmol/L AGAP 12 2 - 16 BUN 33 (*) 7 - 23 mg/dL GLUCOSE 122 (*) 70 - 110 mg/dL CREATININE 3.17 (*) 0.50 - 1.04 mg/dL TOTAL BILI 0.3 0.1 - 1.1 mg/dL CALCIUM 8.7 8.6 - 10.6 mg/dL T PROTEIN 7.2 6.3 - 8.2 g/dL ALBUMIN 3.9 3.5 - 5.0 g/dL ALK PHOS 122 34 - 122 U/L ALTv 38 (*) 5 - 35 U/L AST(SGOT) 38 13 - 40 U/L eGFR 19.1 mL/min/1.73m2 CBC WITH DIFF - Abnormal WBC 13.38 (*) 4.30 - 11.10 10*3/?L RBC 2.37 (*) 3.93 - 5.25 10*6/?L HGB 7.2 (*) 11.6 - 15.0 g/dL HCT 22.4 (*) 35.7 - 45.2 % MCV 94.5 80.6 - 95.5 fL MCH 30.4 25.9 - 32.8 pg MCHC 32.1 31.6 - 35.1 g/dL RDW-SD 45.6 39.0 - 49.9 fL RDW-CV 13.2 12.0 - 15.5 % PLT 397 (*) 166 - 358 10*3/?L MPV 9.6 9.5 - 12.9 fL NRBC/100 WBC 0.0 0.0 - 10.0 /100 WBCs NRBC x10 3 <0.01 10*3/?L GRAN MAT (NEUT) % 73.4 % IMM GRAN % 3.60 % LYMPH % 12.3 % MONO % 9.7 % EOS % 0.7 % BASO % 0.3 % GRAN MAT x10 3 (ANC) 9.82 (*) 1.88 - 7.09 10*3/uL IMM GRAN x10 3 0.48 (*) 0.00 - 0.06 10*3/uL LYMPH x10 3 1.65 1.32 - 3.29 10*3/uL MONO x10 3 1.30 (*) 0.33 - 0.92 10*3/uL EOS x10 3 0.09 0.03 - 0.39 10*3/uL BASO x10 3 0.04 0.01 - 0.07 10*3/uL URINALYSIS - Abnormal APPEARANCE Clear Clear COLOR Colorless Colorless, Other PH 6.0 4.0 - 8.0 SP GRAVITY 1.014 <=1.030 GLU U QUAL Normal Normal, 30 mg/dL, 50 mg/dL BLOOD 1+ (*) Negative KETONES Negative Negative, Trace PROTEIN 50 mg/dL (*) Negative, 10 mg/dL, 20 mg/dL UROBILIN Normal Normal BILIRUBIN Negative Negative NITRITE Negative Negative LEUK CHRISTOPHER Negative Negative, 25/uL RBC/HPF 5 (*) 0 - 3 HPF WBC/HPF 3 0 - 5 HPF BACTERIA Few (*) Negative MUCOUS Slight (*) Negative LPF SQ EPITH 1 HPF LIPASE - Normal LIPASE 95 0 - 220 U/L POCT TEST - Normal POCT PREG Negative On board controls acceptable with C Line Yes POCT PREG LOT # [id number] POCT PREG TEST DATE 11/17/2024 TROPONIN I - Normal TROPONIN I 0.007 <=0.034 ng/mL PROTHROMBIN TIME / INR - Normal PROTIME PATIENT 11.5 10.1 - 12.6 Seconds INR 1.0 ACTIVATED PARTIAL THRMPLAS MARISOL - Normal APTT Patient 32 26 - 36 Seconds TYPE AND SCREEN ABO & RH O NEGATIVE IAT Negative CBC WITH DIFF BASIC METABOLIC PANEL (NA, K, CL, CO2, GLUCOSE, BUN, CREATININE, CA) MAGNESIUM LACTIC ACID WHOLE BLOOD TYPE AND SCREEN EKG: If EKG completed, see Procedure Note. Orders and Treatments: Orders Placed This Encounter Procedures CT ANGIOGRAM ABDOMEN/PELVIS IR OTHER COMP. METABOLIC PANEL (90384) CBC WITH DIFF LIPASE POCT TEST URINALYSIS TROPONIN I PROTHROMBIN TIME / INR ACTIVATED PARTIAL THRMPLAS MARISOL Type and Screen - ONCE Routine Cbc with Diff BASIC METABOLIC PANEL (NA, K, CL, CO2, GLUCOSE, BUN, CREATININE, CA) Magnesium Serum Lactic Acid Whole Blood Type and Screen - ONCE STAT Consult Urology O2 Per Protocol Orders Placed This Encounter Medications NaCl 0.9% (NS) bolus infusion 1,000 mL iopamidol (ISOVUE 370-500 mL) injection 100 mL morphine (2 mg/mL) injection 4 mg ondansetron (ZOFRAN (PF)) injection 4 mg NaCl 0.9% (NS) bolus infusion 1,500 mL albuterol (VENTOLIN) inhaler 2 Puff escitalopram oxalate (LEXAPRO) tablet 20 mg lamoTRIgine (LAMICTAL) tablet 100 mg acetaminophen (TYLENOL) tablet 650 mg morphine (2 mg/mL) injection 4 mg ondansetron (ZOFRAN (PF)) injection 4 mg First Provider Eval: ED Events Date/Time Event User Comments 06/19/242050 Medical Screening Begins APOLINAR SANCHEZ -- 06/19/242050 First Provider Evaluation APOLINAR SANCHEZ -- ED COURSE ED Course as of 06/20/24 0155 MonJun 19, [id number] COMP. METABOLIC PANEL (33548)(!) GFR of 19, Creatinine of 3.17 [DK] 2149 Blood consent for transfusion done [DK] 2129 Spoke with radiology, they are ok with obtaining a CT angiogram given patient's critical status and Hgb of 7.2 with concern for bleed [DK] 2119 Hgb of 7.2 [DK] 2118 CBC WITH DIFF(!) CBC evident for leukocytosis, anemia [DK] 2118 POCT PREG: Negative [DK] ED Course User Index [DK] Holger Souza MD Diagnosis/Impression as of 06/20/24154 Umbilical hernia without obstruction and without gangrene Left lower quadrant abdominal pain Anemia, unspecified type Procedures: Procedures MDM: Medical Decision Making Kitty Marx is a 33 year old female with a pmh of bilateral renal angiolipomas, s/p R. Nephrectomy, presenting with left sided abdominal pain, Nausea and vomiting. Per recent ED visit on Monday, CT imaging revealing multiple L. Sided large renal angiomyolipomas with one lesion hemorrhaging. Physical exam notable for tachycardia and L. Sided abdominal tenderness and distension. CBC revealing of anemia with a Hgb of 7.2, down from 7.5 at her last ED visit. There is concern for slow bleeding most likely via her renal angiomyolipoma lesion, but also could by GI bleeding / arterial bleeding. For this reason a CT angiogram of her abdomen was ordered to elucidate the source of her bleeding. The risk to benefit ratio was discussed with the ED radiologist given the emergent situation. Urology consulted recommended admission to medicine for IR. Admitted to medicine Amount and/or Complexity of Data Reviewed Labs: ordered. Radiology: ordered. Risk Prescription drug management. Parenteral controlled substances. Decision regarding hospitalization. Flowsheet Documentation: Scoring Tools: No data recorded Disposition/Condition: ED Disposition ED Disposition Admit - Inpatient Condition -- Comment -- Discharge Medications: Patient's Medications START taking these medications No medications on file CONTINUE taking these medications which have NOT CHANGED ALBUTEROL (PROAIR HFA) 90 MCG/ACTUATION INHALER INHALE 1 TO 2 PUFFS BY MOUTH EVERY 4 TO 6 HOURS NEEDED BUSPIRONE 7.5 MG TABLET Take 1 tablet by mouth in the morning and 1 tablet in the evening. ESCITALOPRAM OXALATE 20 MG TABLET Take 1 tablet by mouth in the morning. LAMOTRIGINE 100 MG TABLET Take 1 tablet by mouth in the morning and 1 tablet in the evening. LAMOTRIGINE 100 MG TBDL Take 1 tablet by mouth 2 (two) times daily. METOPROLOL SUCCINATE XL 25 MG 24 HR TABLET TAKE 1 TABLET BY MOUTH EVERY DAY IN THE MORNING OMEPRAZOLE 20 MG CAPSULE Take 1 capsule by mouth in the morning. START taking Modified Medications as Prescribed No medications on file STOP taking these medications No medications on file Follow-up: Electronically signed by: Apolinar Sanchez MD 06/20/24 0155 [facility] 2024-06-17 03:34:13 PT LEFT AMA. AMA PAPERS signed. PT COUNSELED TO REMAIN, BUT PT DECLINED. LEFT ambulatoy. VS stable, NO ATAXIA, GCS 15, AO4. RA [facility] Violeta June RN [facility] 2024-06-17 03:31:28 Pt refusing to be transferred to [facility], explained to pt AMA form and risks of not being transferred. Pt verbalized understanding. [facility] 2024-06-17 00:21:04 Patient arrived ambulatory to ED c/o left sided flank pain that started Monday. Patient unable to keep food or liquid down. Patient has N/V/D. Tylenol taken last yesterday around noon. Hx: tumor John Baum RN [facility] 2024-05-27 08:15:11 Labs sent to [facility]. MyChart msg sent. Kristyn Urena RN [facility] 2024-05-24 19:44:03 Patient returning call regarding getting labs for 06/10/24 nephrology appointment. Patient states she gets labs done at [facility]. Please send orders to: [facility] Otto Narayan ph. [phone] fax [phone] Adri Jarquin [facility] 2024-05-13 13:28:03 Called patient in response to referral being re-opened for kidney transplant. Patient states her sister makes medical decisions for her. I explained we had discussed patient needing nephrectomy per transplant surgeon to continue with evaluation for kidney transplant. Explained patient's sister opted to post pone nephrectomy and evaluation until kidney function worsened and patient started dialysis. I also discussed with patient this plan on the same day her sister made this decision. Patient and her boyfriend today expressed understanding and stated agreement with plan that patient would wait until kidney function worsened and she has started dialysis then at that time she would undergo nephrectomy and resume evaluation. Patient removed from referral and denial at inquiry. Laieny Teixeira RN [facility] 2024-05-13 12:42:13 Mrs. Marx requested for her sister Serena Hutson to be removed as her emergency contact. Referral received via: phone How did the patient hear about our program: re inquire Submitted for financial clearance Insurance Information: [facility] [id number] [facility] [phone] SSN: [id number] Weight:162 lbs Height: 5'1" Referring MD: Precious Verdugo Specialty: Scientific Process Operator (Kidney) Address: [address] [place], [place] retinal angiographer:N/A What caused the patients' disease? Genetic Is the patient on dialysis? no : Which organ are you referring the patient for transplant? Kidney Is the patient listed for transplant at this time at another center: no Has the patient been evaluated or are they being evaluated at another center? no Has the patient had a previous transplant (s): no Does the patient have cancer or a history of : no Does the patient have HIV/AIDS: no Do you have a history of heart problems or heart disease: no Do you have a clinical outcomes manager? No Have you had heart testing: Yes If yes, what did you have done and where was it done and date done? [facility] Have you ever had any amputations? no Have you ever had a stroke? no Do you have a history of diabetes? no Does the patient use assistive devices: No Does the patient have any special needs? Oxygen? no Do you have dental issues? no Do you have a reiki practitioner? Yes Well woman's exam with PAP within 3 years: Yes Mammogram: within 1 year: Yes. Have you had a colonoscopy within 10 years: Yes Have you had any x-rays, CTs or other images completed in the past 3 years? Yes Do you have a living donor: No If yes: Please have your living donor call [phone] and and speak to the Living Donor Health And Safety Manager Coordinator. The clinical physician assistant will take their information and provide directions for their next step Meliza Cheng [facility] 2024-05-10 08:51:29 Pt returned phone call, pt wanting to know if depo will protect her from . Educated pt on depo and . Pt verbalized understanding. Gaby Angel RN 05/10/24 8:52 AM [facility] 2024-05-10 08:08:38 Called pt, no answer. Left vm. Gaby Angel RN 05/10/24 8:08 AM T [facility] 2024-05-09 16:45:58 Kitty Marx is a 33 year old female Pt requesting call back, wanting to speak to a nurse. Pt is scared that having intercourse with her boyfriend and letting him come inside that she might still get even though she is on the depo shot. Pt is concerned that if she does become and since she has a kidney issue that could be dangerous to the baby. Please call the pt [phone] (mobile) Tali Syed [facility] 2024-05-07 08:16:01 Received VM from Mrs. Marx requesting a call back from outreach coordinator, has further questions regarding her transplant evaluation. No more information was provided in the VM. From: [facility]plant [facility] Voicemail After Hours <[email or web address]> Sent: Monday, May 06, 2024 1:35 AM To: Transplant Services Voicemail After Hours <[email or web address]> Subject: FW: Voice Message From: [phone] Meliza Cheng [facility] 2024-05-03 09:17:36 Discussed case with following surgeon discussion. Patient will need left nephrectomy if she wishes to continue with kidney transplant evaluation and listing. Patient will need annual CT abdomen pelvis renal mass protocol w/wo. Alternately to having left nephrectomy, patient can wait until kidney function worsens and once patient starts dialysis she can then re-inquire. Patient does not have a living donor. I called patient's sister and patient's legal guardian Serena Hutson and discussed feedback from surgeon. Serena stated she would prefer to not continue work up at this time and re-inquire should patient start dialysis in the future and when patient prepared to have nephrectomy. I also notified patient and her boyfriend and they expressed understanding and agreement with Serena's choice of plan. Removed from evaluation for now and letter to follow. Due to patient's choice of removal per administrative program specialist Jud Villalobos, committee presentation not required and concurred. Case was discussed at surgeon review with all kidney transplant surgeons present per . Letter to follow. Lainey Teixeira RN [facility] 2024-04-26 09:30:18 Routing to pre- coordinator. Jennifer Sanchez RN [facility] 2024-04-25 16:01:51 Kitty Marx is a 33 year old female Pt calling in regards to some questions she has regarding the transplant list please contact pt [phone] Gerardo Westbrook [facility] 2024-04-19 15:58:25 Kitty Marx is a 33 year old female Pt is calling requesting to know what the next step in the process is. She states that she hasn't heard anything form the clinic. Please advise. [phone] (home) Bela Ray [facility] 2024-04-09 14:30:00 Images from the original note were not included. Venipuncture collection performed by clean technique on the right anticubitus. Total of 2 attempts were made. Slight pressure and a bandage/dressing were applied to the site(s). The patient experienced no complications. The following specimens were processed according to instructions and sent to [facility] laboratories per lab order on 04/09/2024 : LT BLUE 1 SST 9 RED 2 LAV 4 PPT 1 DK GREEN (LiHep) 1 DK GREEN (SodH) CHOI 1 DK BLUE (K2) DK BLUE (S) ACD 4 Blood Culture NIPT/NTD Patient has been identified by and name and was provided with cup, antiseptic towelette, and clean catch instructions. 2 urine specimen(s) sent. Unpreserved 1 Urine Culture 1 Aptima tube Other urine T [facility] 2024-04-05 15:23:21 Patient informed of results and recommendations, verbalized understanding. T [facility] 2024-04-05 14:06:26 Please call patient and let her know negative pap and hpv. Repeat in 3 years. T [facility] 2024-02-13 10:55:10 Please request a signed PHI. Referral received via: On-Line How did the patient hear about our program: Self Referral Referring MD: Precious Verdugo Specialty: Scientific Process Operator (Kidney) Address: [facility] [address] [place], [place] retinal angiographer: [employer] Insurance Information: Primary Coverage Plan Group Number Group Name Plan Address Plan Phone Effective From Effective To Coverage Address Claim Attention [facility] [address] [address] 07/14/2022 [place] [address] Primary Subscriber Subscriber Name Subscriber ID Subscriber SSN Pat Rel to Sub Subscriber Address Subscriber Employer Subs Rel to KITTY Tavarez [id number] [address] [place] [address] SSN: [id number] Request a copy of insurance if it is not included. Are you currently employed: No If Yes What type of work do you do? UNK If not, are you disabled Yes When were you last employed? UNK Highest Education level:UNK Weight: 165 lbs Height: 5'1" BMI: 31.2 Which organ are you referring the patient for transplant? Kidney Is the patient listed for transplant at this time at another center: no Has the patient been evaluated or are they being evaluated at another center? no If yes, Name of center: N/A Has the patient had a previous transplant (s): no If yes, Where: N/A What caused the patients' disease? Type II Diabetes Is the patient on dialysis? no If yes, date of first dialysis: N/A , Name of Dialysis Center: N/A; Dialysis Center phone number: N/A; Fax Number: N/A What type of dialysis: N/A , Days of dialysis: DIALYSIS DAYS: MWF: Does the patient have cancer or a history of : yes If yes Date of diagnosis: Patient reports treatment 5 years ago If yes, where were you treated? Patient couldn't recall Does the patient have HIV/AIDS: no Do you have a history of heart problems or heart disease: no Do you have a clinical outcomes manager? No If yes Employee Development Director name and contact information: N/A Have you had heart testing: No If yes, what did you have done and where was it done and date done? N/A Have you ever had any amputations? no Have you ever had a stroke? no Do you have a history of diabetes? yes If yes: Age of diabetes onset: UNK What type of diabetes? Diabetes Mellitus Type 2, Do you take Insulin: Yes Does the patient use assistive devices: No Does the patient have any special needs? Oxygen? yes Do you have a dentist? no If Yes: What is the Dentist name and phone number: UNK Do you have a reiki practitioner? No If yes, name and contact information: N/A Well woman's exam with PAP within 3 years: No If yes, Where: N/A (Request report) Mammogram: within 1 year: No If yes, Where: N/A (Request report) Have you had a colonoscopy within 10 years: No If yes when and where: N/A (Request report) Have you had any x-rays, CTs or other images completed in the past 3 years? No If yes where: [facility] Requested CD: No Do you have a living donor: No If yes: Please have your living donor call [phone] and and speak to the Living Donor Health And Safety Manager Coordinator. The clinical physician assistant will take their information and provide directions for their next steps. Henna Patel [facility] 2024-02-02 05:52:51 Pt given printed and verbal discharge instructions regarding chest tightness, dyspnea, encouraged hydration. Pt verbalized understanding of instructions, pt awake alert oriented, resp reg unlabored, skin w/d, color appropriate for race, moves all ext well,pt encouraged to follow up with cardiology. Advised to seek medical attention for new/prolonged/worsening of symptoms. PIV d'cd, dressing to site, catheter in tact. Awake, alert oriented, resp reg unlabored, skin w/d, pt leaving amb with steady gait, in no apparent distress. T Gwendolyn Pierce RN [facility] [facility] 2024-02-02 03:50:15 C/O SOB, chest tightness on and off for the last month. Pt states that tonight the tightness and sob started around 2300 and lasted until 0300 T Fauzia Blair RN [facility] 2024-02-02 03:42:00 EMERGENCY DEPARTMENT ENCOUNTER [facility] Patient Name: Kitty Marx Date of : 1990 33 year old Exam Room:TX6/TX6 Primary Care Physician: Preet Ortiz [facility] Patient Escorted by: Friend [6] Mode of Arrival: Personal means [1] EMS Treatment Prior to ED Arrival: ECOLOGIST TECHNICIAN treatment: None ED Events Date/Time Event User Comments 02/02/24346 Medical Screening Begins THIERNO SHERMAN MD -- 02/02/24346 First Provider Evaluation THIERNO SHERMAN MD -- Chief Complaint Chief Complaint Patient presents with Shortness of Breath Chest Pain ED Triage Notes Fauzia Blair RN 02/02/2024 03:51 C/O SOB, chest tightness on and off for the last month. Pt states that tonight the tightness and sob started around 2300 and lasted until 0300 HPI History provided by: Patient Chest Pain Pain location: Substernal area Pain radiates to: Does not radiate Pain severity: Moderate Duration: 2 days Timing: Constant Relieved by: Nothing Worsened by: Nothing Associated symptoms: no abdominal pain, no cough, no dizziness, no fatigue, no fever, no headache, no nausea, no palpitations, no shortness of breath and no vomiting Risk factors: obesity Past Medical History / Immunizations Past Medical History: Diagnosis Date Angiomyolipoma of both kidneys Anxiety 01/04/2021 resolved per pt Asthma Bacterial vaginitis 08/31/2020 Benign brain tumor Cervical high risk human papillomavirus (HPV) DNA test positive 08/31/2020 Depression resolved Gastritis 08/22/2021 Genital herpes 08/31 Iron deficiency 08/28/2020 Kidney tumor RLS (restless legs syndrome) 01/04/2021 Seizures on medication at this time Suicidal ideation Tuberous sclerosis Vitamin B6 deficiency 12/09/2020 Vitamin D deficiency 12/09/2020 Tetanus received in last 5 years: No Childhood immunizations: Up-to-date Past Surgical History Past Surgical History: Procedure Laterality Date ESOPHAGOGASTRODUODENOSCOPY N/A 2021 Surgeon: Joshua Lopez MD; [facility] IR EMBOLIZATION ARTERIAL OTHER THAN HEMORRHAGE Left 12/18/2020 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 Alcohol Use Never. Drug Use Never. Sexual Activity Sexually active; Partners: Male; Control/Protection: Condom, Contraceptive Patch. Comments: last intercourse: 01/30/2023 Review of Systems Review of Systems Constitutional: Negative. Negative for chills, fatigue, fever and unexpected weight change. HENT: Negative. Eyes: Negative. Negative for discharge and itching. Respiratory: Negative. Negative for cough, chest tightness, shortness of breath and wheezing. Cardiovascular: Positive for chest pain. Negative for palpitations. Gastrointestinal: Negative. Negative for abdominal distention, abdominal pain, nausea and vomiting. Genitourinary: Negative. Negative for dysuria, urgency, frequency and flank pain. Musculoskeletal: Negative. Skin: Negative. Negative for color change, pallor and wound. Neurological: Negative. Negative for dizziness, syncope, light-headedness and headaches. Psychiatric/Behavioral: Negative. Negative for agitation and behavioral problems. All other systems reviewed and are negative. Endocrine: Endocrine negative Physical Exam ED Triage Vitals [02/02/24 0354] Weight 74.8 kg (165 lb) Actual or estimated Height 1.549 m (5' 1") BP 139/83 Pulse 87 Resp 18 Temp 36.6 ?C (97.8 ?F) Temp source Oral SpO2 99 % Measured on Room air Physical Exam Vitals reviewed. Constitutional: Appearance: She is well-developed. HENT: Head: Normocephalic and atraumatic. Nose: Nose normal. Eyes: Conjunctiva/sclera: Conjunctivae normal. Neck: Trachea: No tracheal deviation. Cardiovascular: Rate and Rhythm: Normal rate and regular rhythm. Heart sounds: Normal heart sounds. No murmur heard. No friction rub. Pulmonary: Effort: Pulmonary effort is normal. No respiratory distress. Breath sounds: Normal breath sounds. No stridor. No wheezing or rales. Abdominal: General: Bowel sounds are normal. There is no distension. Palpations: Abdomen is soft. Tenderness: There is no abdominal tenderness. There is no guarding or rebound. Musculoskeletal: General: Normal range of motion. Cervical back: Normal range of motion and neck supple. Skin: General: Skin is warm and dry. Neurological: Mental Status: She is alert and oriented to person, place, and time. Cranial Nerves: No cranial nerve deficit. Sensory: No sensory deficit. Psychiatric: Behavior: Behavior normal. Thought Content: Thought content normal. Judgment: Judgment normal. Labs Lab Results CBC WITH DIFF - Abnormal Result Value Ref Range WBC 9.71 4.30 - 11.10 10*3/?L RBC 3.49 (*) 3.93 - 5.25 10*6/?L HGB 10.5 (*) 11.6 - 15.0 g/dL HCT 33.3 (*) 35.7 - 45.2 % MCV 95.4 80.6 - 95.5 fL MCH 30.1 25.9 - 32.8 pg MCHC 31.5 (*) 31.6 - 35.1 g/dL RDW-SD 45.5 39.0 - 49.9 fL RDW-CV 13.1 12.0 - 15.5 % PLT 374 (*) 166 - 358 10*3/?L MPV 10.1 9.5 - 12.9 fL NRBC/100 WBC 0.0 0.0 - 10.0 /100 WBCs NRBC x10 3 <0.01 10*3/?L GRAN MAT (NEUT) % 61.7 % IMM GRAN % 1.20 % LYMPH % 28.2 % MONO % 7.5 % EOS % 0.9 % BASO % 0.5 % GRAN MAT x10 3 (ANC) 5.98 1.88 - 7.09 10*3/uL IMM GRAN x10 3 0.12 (*) 0.00 - 0.06 10*3/uL LYMPH x10 3 2.74 1.32 - 3.29 10*3/uL MONO x10 3 0.73 0.33 - 0.92 10*3/uL EOS x10 3 0.09 0.03 - 0.39 10*3/uL BASO x10 3 0.05 0.01 - 0.07 10*3/uL COMP. METABOLIC PANEL (83660) - Abnormal NA 138 135 - 145 mmol/L K 4.1 3.5 - 5.0 mmol/L CL 111 (*) 98 - 108 mmol/L CO2 TOTAL 16 (*) 23 - 31 mmol/L AGAP 11 2 - 16 BUN 40 (*) 7 - 23 mg/dL GLUCOSE 91 70 - 110 mg/dL CREATININE 2.87 (*) 0.50 - 1.04 mg/dL TOTAL BILI 0.2 0.1 - 1.1 mg/dL CALCIUM 9.3 8.6 - 10.6 mg/dL T PROTEIN 8.1 6.3 - 8.2 g/dL ALBUMIN 4.2 3.5 - 5.0 g/dL ALK PHOS 99 34 - 122 U/L ALTv 13 5 - 35 U/L AST(SGOT) 28 13 - 40 U/L eGFR 21.6 mL/min/1.73m2 LIPASE - Abnormal LIPASE 375 (*) 0 - 220 U/L N-TERMINAL PRO-BNP - Abnormal NT-proBNP 555 (*) <=125 pg/mL TROPONIN I - Normal TROPONIN I 0.011 <=0.034 ng/mL POCT TEST - Normal POCT PREG Negative On board controls acceptable with C Line Yes POCT PREG LOT # [id number] POCT PREG TEST DATE 12/18/2024 URINE DRUG (IMMUNOASSAY) - COMPREHENSIVE DRUG SCREEN W/O REFLEX - Normal AMPHET Negative Negative FAYE U Negative Negative BENZO U Negative Negative Cocaine Metabolite Negative Negative METHADONE Negative Negative OPIATES Negative Negative PCP Negative Negative THC Negative Negative Imaging XR CHEST 1 VW Preliminary Result EXAM: XR CHEST 1 VW COMPARISON: Chest radiograph 08/02/[address] chest 12/05/2023 HISTORY: chest pain FINDINGS: Left chest wall durable medical equipment technician with its lead in the lower left neck, thought to be of the vagal nerve stimulator Lungs: The lungs are clear. and well-expanded. No pleural abnormalities. Heart/Mediastinum: The cardiomediastinal silhouette is normal in size accounting for technique. Bones: No osseous lesions are detected. The soft tissues appear normal IMPRESSION No radiographic evidence of acute cardiopulmonary process. Preliminary Report Dictated by Resident: Nikki Brown Orders and Treatments Orders Placed This Encounter Procedures XR CHEST 1 VW CBC WITH DIFF COMP. METABOLIC PANEL (92073) LIPASE TROPONIN I N-TERMINAL PRO-BNP POCT TEST URINE DRUG (IMMUNOASSAY) - COMPREHENSIVE DRUG SCREEN W/O REFLEX No orders of the defined types were placed in this encounter. Procedures EKG Time 0351 Rate 85 Normal sinus [place] normal Intervals normal No acute ischemia Notes & MDM Patient was evaluated for an emergency medical condition related to Shortness of Breath and Chest Pain DDX Anxiety ACS PE Diagnosis/Impression as of 02/02/24 0537 Chest tightness Dyspnea, unspecified type Medical Decision Making Problems Addressed: Chest tightness: acute illness or injury Dyspnea, unspecified type: acute illness or injury Amount and/or Complexity of Data Reviewed Labs: ordered. Decision-making details documented in ED Course. Radiology: ordered and independent interpretation performed. Decision-making details documented in ED Course. ECG/medicine tests: ordered and independent interpretation performed. Decision-making details documented in ED Course. Assessment/Summary: The patient is a 33-year-old female who presents for chest tightness and shortness of breath. Of note, she has CKD and only has 1 kidney. She states that she was told she had fluid on her lungs would like to be evaluated. She says for the past few days she has had chest tightness. EKG does not demonstrate STEMI or any ectopy. She is not tachycardic or hypoxic. She is not tachypneic. She appears very comfortable. Workup demonstrates a negative troponin. Chest x-ray is negative for any acute intrathoracic process. No signs of pneumonia or pleural effusion. Her BNP is slightly elevated. Please note her creatinine is down to 2.8 from 3.1. GFR is 21 up from 16. She does follow with Dr. Kay her wire roller. She is on the renal transplant list. She also follows with Dr. To from cardiology. The patient has presented previously for similar symptoms and has had a negative workup. I feel comfortable discharging patient home. She will be discharged to follow-up with cardiology and nephrology. She can return for any questions or concerns. History, physical exam findings, results of visit, differential diagnosis, medication regimens and plan of future care have been considered. Additional MDM may be found in the ED course. Differential diagnosis considered and final disposition made based on information gathered during evaluation and may not be completely ruled out or specifically listed. Vital signs were rechecked before final disposition. Diagnosis Final diagnoses: [R07.89] Chest tightness (Primary) [R06.00] Dyspnea, unspecified type Disposition & Follow Up ED Disposition ED Disposition Disch - Home Condition Stable Comment -- Patient's Medications START taking these medications No medications on file CONTINUE taking these medications which have NOT CHANGED ALBUTEROL (PROAIR HFA) 90 MCG/ACTUATION INHALER INHALE 1 TO 2 PUFFS BY MOUTH EVERY 4 TO 6 HOURS NEEDED LAMOTRIGINE 100 MG TBDL Take 1 tablet by mouth 2 (two) times daily. METOPROLOL SUCCINATE XL 25 MG 24 HR TABLET TAKE 1 TABLET BY MOUTH EVERY DAY IN THE MORNING START taking Modified Medications as Prescribed No medications on file STOP taking these medications No medications on file Contact information for follow-up Preet Ortiz MD Specialty: FM-FAMILY MEDICINE Relationship: PCP - General Bradley Judaism [address] [facility] [address] [facility] [address] Future Appointments In 1 month Alberta Hurst, [facility], [place], [facility] José Luis Sherman Jr., MD Clinical Claim Rep [facility] Emergency Department [employer] is used frequently and may produce errors. Promptly contact for obvious discrepancies. Thierno Sherman MD 02/02/24 0538 [facility] 2023-12-19 08:53:17 Spoke /c pt Pt ID by name and Advised pt that pain medication is not recommended prior to cysto/botox procedure. Advised pt that we will numb the urethra and bladder. Advised this does not mean that she will not feel anything, but the numbing will help with the discomfort. Pt verbalized understanding and agrees to POC. Y Heredia RN [facility] 2023-12-18 14:21:27 The patient would like to know should she take some pain meds before the cysto/botox 12/19. Y Basurto [facility] 2023-12-01 09:04:26 Images from the original note were not included. Patient notified of results. They verbalized understanding of results/recommendations via teach back. No further questions or concerns at this time. She will call [facility] to schedule CT scan. Liu, Shiwan, DO P Pulmonary Nurse Please let patient now that sleep study did not show any evidence of sleep apnea. Thanks. Your PFT shows mild restriction in lung function. This is probably related to either fluid in your lung from kidney disease or possibly weight, but we will get a CT scan to rule out any lung cause for this. Please let me know if you have any questions or concerns. Thank you and have a blessed day. Written by Kade Liu DO on 12/01/2023 12:41 AM RIM ROLLER OPERATOR ROLLER OPERATOR Marbella Swift RN [facility] 2023-11-15 14:38:01 Called patient and verified patient by name and . Patient has already picked up medication for $14 using good rx. Will refuse this medication change request. ROLLER OPERATOR Shiloh Price RN [facility] 2023-11-14 16:06:28 Called patient and verified patient by name and . Patient instructed to use the goodrx coupon for the medication. ROLLER OPERATOR [facility] 2023-07-13 21:42:38 Formatting of this n ote might be different from the original. Pt given printed and verbal discharge instructions regarding vaginal irritation and vaginal burning, encouraged hydration, 0 Prescriptions provided Pt verbalized understanding of instructions, pt awake alert oriented, resp reg unlabored, skin w/d, color appropriate for race, moves all ext well,pt encouraged to follow up with pcp. Advised to seek medical attention for new/prolonged/worsening of symptoms, Symptoms improved. Awake, alert oriented, resp reg unlabored, skin w/d, pt leaving amb with steady gait, in no apparent distress, Allie Choi RN [facility] 2023-07-13 19:35:14 Formatting of this n ote might be different from the original. Pt states that around 11 today she was shaving the vaginal area and she cut herself , pt states that she has blood when she wipes and it carrero in the area Fauzia Blair RN [facility] [employer] 2023-07-13 19:27:00 Formatting of this n ote is different from the original. [facility] Emergency Department Note Patient Name: Kitty Marx Date of : 1990 32 year old female Treatment Room: AZ2/AZ2 Primary Care Physician: Preet Ortiz Patient Escorted by: Family [5] Mode of Arrival: Personal means [1] EMS Treatment Prior to ED Arrival: ECOLOGIST TECHNICIAN treatment: None Travel and Exposure Screening: Symptoms Does patient have any of these symptoms?: (not recorded) Exposure Screening Has patient had contact with someone with a communicable disease in the last month?: (not recorded) Diseases exposed to:: (not recorded) Is Patient ?: (not recorded) Exposure Date: (not recorded) Chief Complaint: Chief Complaint Patient presents with Vaginal Problem History of Present Illness: Kitty Marx is a 32 year old female who presents to the ED for evaluation of injury sustained this morning about 11:00 that occurred when pt accidentally cut her vagina while using a new blade. Has burning sensation rated at 8/10 History provided by: Patient and medical records silo filler used: No Past Medical History/Immunizations: Past Medical History: Diagnosis Date Angiomyolipoma of both kidneys Anxiety 01/04/2021 resolved per pt Asthma Bacterial vaginitis 08/31/2020 Benign brain tumor Cervical high risk human papillomavirus (HPV) DNA test positive 08/31/2020 Depression resolved Gastritis 08/22/2021 Iron deficiency 08/28/2020 Kidney tumor RLS (restless legs syndrome) 01/04/2021 Seizures on medication at this time Suicidal ideation Tuberous sclerosis Vitamin B6 deficiency 12/09/2020 Vitamin D deficiency 12/09/2020 Tetanus received in last 5 years: Unknown Childhood immunizations: Up-to-date Allergies: No Active Allergies Past Social History: Tobacco Use Never smoked or used smokeless tobacco. Alcohol Use Never. Drug Use Never. Sexual Activity Sexually active; Partners: Male; Control/Protection: Injection. 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 Negative for chills, diaphoresis, fatigue and fever. HENT: Negative. Eyes: Negative. Respiratory: Negative. Breasts: Negative. Cardiovascular: Negative. Gastrointestinal: Negative. Genitourinary: Positive for dysuria and vaginal bleeding. Musculoskeletal: Positive for myalgias. Skin: Positive for wound. Neurological: Negative. Psychiatric/Behavioral: Negative. All other systems reviewed and are negative. Endocrine: Endocrine negative Physical Exam: ED Triage Vitals [07/13/23 1936] Weight 83.2 kg (183 lb 6.4 oz) Actual or estimated Height 1.549 m (5' 1") BP (!) 137/92 Pulse 97 Resp 18 Temp 37.2 ?C (99 ?F) Temp source Oral SpO2 100 % Measured on Room air Physical Exam Vitals and nursing note reviewed. Constitutional: General: She is not in acute distress. Appearance: Normal appearance. She is well-developed and normal weight. She is not ill-appearing, toxic-appearing or diaphoretic. HENT: Head: Normocephalic and atraumatic. Nose: Nose normal. No congestion or rhinorrhea. Mouth/Throat: Mouth: Mucous membranes are moist. Pharynx: Oropharynx is clear. No oropharyngeal exudate or posterior oropharyngeal erythema. Eyes: General: No scleral icterus. Right eye: No discharge. Left eye: No discharge. Extraocular Movements: Extraocular movements intact. Conjunctiva/sclera: Conjunctivae normal. Pupils: Pupils are equal, round, and reactive to light. Neck: Thyroid: No thyromegaly. Cardiovascular: Rate and Rhythm: Normal rate and regular rhythm. Pulses: Normal pulses. Heart sounds: Normal heart sounds. No murmur heard. Pulmonary: Effort: Pulmonary effort is normal. No respiratory distress. Breath sounds: Normal breath sounds. No stridor. No wheezing, rhonchi or rales. Chest: Chest wall: No tenderness. Abdominal: General: Bowel sounds are normal. There is no distension. Palpations: Abdomen is soft. Tenderness: There is no abdominal tenderness. There is no right CVA tenderness, left CVA tenderness, guarding or rebound. Genitourinary: General: Normal vulva. Vagina: No vaginal discharge. Comments: Very mild vaginal irritation. No laceration. No bleeding. No rash. No lesion Musculoskeletal: General: No swelling, tenderness, deformity or signs of injury. Normal range of motion. Cervical back: Normal range of motion and neck supple. No rigidity or tenderness. Lymphadenopathy: Cervical: No cervical adenopathy. Skin: General: Skin is warm and dry. Capillary Refill: Capillary refill takes less than 2 seconds. Coloration: Skin is not jaundiced or pale. Findings: Bruising and erythema present. No lesion or rash. Neurological: General: No focal deficit present. Mental Status: She is alert and oriented to person, place, and time. Cranial Nerves: No cranial nerve deficit. Sensory: No sensory deficit. Motor: No weakness or abnormal muscle tone. Coordination: Coordination normal. Gait: Gait normal. Deep Tendon Reflexes: Reflexes normal. Psychiatric: Mood and Affect: Mood normal. Behavior: Behavior normal. Thought Content: Thought content normal. Judgment: Judgment normal. Radiology: No orders to display Lab Results: Lab Results URINALYSIS - Abnormal Result Value Ref Range APPEARANCE Clear Clear COLOR Yellow Yellow PH 6.0 4.8 - 8.0 SP GRAVITY 1.013 1.003 - 1.030 GLU U QUAL Normal Normal BLOOD 1+ (*) Negative KETONES Negative Negative PROTEIN 30 mg/dL (*) Negative UROBILIN Normal Normal BILIRUBIN Negative Negative NITRITE Negative Negative LEUK CHRISTOPHER 25/uL (*) Negative RBC/HPF 3 0 - 3 HPF WBC/HPF 3 0 - 5 HPF BACTERIA Moderate (*) Negative SQ EPITH 4 HPF POCT TEST - Normal POCT PREG Negative On board controls acceptable with C Line Yes POCT PREG LOT # [id number] POCT PREG TEST DATE 11-15-2024 Orders and Treatments: Orders Placed This Encounter Procedures URINALYSIS POCT TEST No orders of the defined types were placed in this encounter. First Provider Eval: ED Events None No notes of EC Admission Criteria type on file. ED COURSE Diagnosis/Impression as of 07/13/232139 Vaginal burning Vaginal irritation Procedures: Procedures MDM: Medical Decision Making Kitty Marx is a 32 year old female who is presents to the ED for evaluation afetr pt accidenatally cut her vagian while shaving with a blade. Problems Addressed: Vaginal burning: acute illness or injury Vaginal irritation: acute illness or injury Amount and/or Complexity of Data Reviewed Labs: ordered. Decision-making details documented in ED Course. Risk OTC drugs. Flowsheet Documentation: Scoring Tools: No data recorded Disposition/Condition: ED Disposition ED Disposition Disch - Home Condition Stable Comment -- Discharge Medications: Patient's Medications START taking these medications No medications on file CONTINUE taking these medications which have NOT CHANGED ALBUTEROL (PROAIR HFA) 90 MCG/ACTUATION INHALER INHALE 1 TO 2 PUFFS BY MOUTH EVERY 4 TO 6 HOURS NEEDED LAMOTRIGINE 100 MG TBDL Take 1 tablet by mouth 2 (two) times daily. METOPROLOL SUCCINATE XL 25 MG 24 HR TABLET TAKE 1 TABLET BY MOUTH EVERY DAY IN THE MORNING START taking Modified Medications as Prescribed No medications on file STOP taking these medications No medications on file Follow-up: Contact information for follow-up Preet Ortiz MD Specialty: FM-FAMILY MEDICINE [place] [id number] Electronically signed by: Angelo Ware MD 07/13/232139 [facility] [employer] 2023-06-19 08:46:32 Formatting of this n ote is different from the original. Images from the original note were not included. Refill approved per cardiology protocol: Cardiovascular: ?Beta Blockers Passed 06/19/2023 08:39 AM Protocol Details Valid encounter within last 12 months Heart rate within normal limits and completed in the last 12 months Milady Jackson MA [facility] 2023-05-31 08:03:32 Formatting of this n ote is different from the original. Images from the original note were not included. Refill approved per cardiology protocol: Cardiovascular: ?Beta Blockers Passed 05/31/2023 07:31 AM Protocol Details Valid encounter within last 12 months Heart rate within normal limits and completed in the last 12 months Milady Jackson MA [facility]
[2024-06-24 02:52] LABS: Absolute Eosinophils 0.2 K/uL (0-0.5); Absolute Monocytes 1.6 K/uL (0.1-1.3); Absolute Neutrophil 17.4 K/uL (1.8-8.0); Basophils % 0.1 % (0-1.3); Eosinophils % 0.9 % (0-4.4); Hematocrit 28.8 % (36.0-45.0); Hemoglobin 9.4 g/dL (12.0-15.0); Lymphocytes % 9.4 % (15.3-44.8); MCH 29.5 pg (27.0-35.0); MCHC 32.6 g/dL (32.0-36.0); MCV 90.5 fL (80-100); MPV 7.1 fL (7.6-11.3); Monocytes % 7.5 % (3.3-12.3); Neutrophils % 82.1 % (41.7-73.7); Platelets 642 thou/uL (152-406); RBC Red Blood Cell Count 3.18 M/uL (3.86-4.86); Red Cell Distribution Width 14.4 % (12.1-15.2)
[2024-06-24] MEDS ORDERED: FENTANYL CITR 100 MCG/2 ML ONE (02:54)
[2024-06-24 03:00] LABS: Albumin/Globulin Ratio 0.6 (1.1-1.8); Anion Gap 13.3 mEq/L (5.0-15.0); Bilirubin Total 0.4 mg/dL (0.2-1.0); Globulin 5.2 g/dL (2.3-3.5); Potassium 4.3 mEq/L (3.5-5.1); Protein, Total 8.2 g/dL (6.4-8.2)
[2024-06-24 03:22] LABS: Specific Gravity 1.017 (1.005-1.030); Sqamous Epithelial 20-50 /HPF (None Seen); Urine Bacteria Loaded /HPF (<20); Urine Bilirubin NEGATIVE (Negative); Urine Blood 3+ (OVER) (Negative); Urine Clarity Extremely Turbid (Clear); Urine Color Light-Orange (Yellow); Urine Culture Reflex Order NOT NEEDED; Urine Glucose NEGATIVE (Negative); Urine Ketones NEGATIVE (Negative); Urine Microscopic Reflex YN ORDER UMIC; Urine Mucus Slight /HPF (None Seen); Urine Nitrite NEGATIVE (Negative); Urine Protein 3+ (Negative); Urine RBC 21-50 /HPF (None Seen); Urine Urobilinogen Normal (Normal); Urine WBC 20-50 /HPF (<5); Urine pH 6.5 (5.0-7.0)
[2024-06-24] MEDS ORDERED: CEFTRIAXONE 1000 MG/VIAL ONE (03:46)
[2024-06-24 04:18] LABS: Band Neutrophils 9 % (0-1); Blood Morphology Comment NOT SEEN (NOT SEEN); Differential Total Cells Count 100; Lymphocytes 7 % (15-42); Monocytes 3 % (0-10); Platelet Estimate ADEQ; Segmented Neutrophils 81 % (40-80)
[2024-06-24 04:32] LABS: PT Prothrombin Time 11.7 SECONDS (9.4-12.5); PTT, Activated Partial Thromb 33.7 SECONDS (24.3-36.9); Protime INR 1.05
--- NOTE | 2024-06-24 05:24 | ER ---
Nurse's Notes [facility] Name: Kitty Wall Age: 33 yrs Sex: Female : 1990 Arrival Date: 06/24/2024 Time: 02:16 Bed 4 Private MD: Diagnosis: UTI;Leukocytosis;Left flank pain;Angiomyolipomatosis with hemorrhage Presentation: 06/24 02:18 Chief complaint: EMS states: left flank pain that started yesterday. Reports tumor to cp4 the left kidney. Coronavirus screen: Client denies travel out of the [place] in the last 14 days. At this time, the client does not indicate any symptoms associated with coronavirus-19. Ebola Screen: Patient negative for fever greater than or equal to 101.5 degrees Fahrenheit, and additional compatible Ebola Virus Disease symptoms Patient denies exposure to infectious person. Patient denies travel to an Ebola-affected area in the 21 days before illness onset. No symptoms or risks identified at this time. Initial Sepsis Screen: Does the patient meet any 2 criteria? No. Patient's initial sepsis screen is negative. Does the patient have a suspected source of infection? No. Patient's initial sepsis screen is negative. Risk Assessment: Do you want to hurt yourself or someone else? Patient reports no desire to harm self or others. Onset of symptoms was June 23, 2024. 02:18 Method Of Arrival: EMS: [facility] 4 02:18 Acuity: GULSHAN 3 cp4 Triage Assessment: 02:19 General: Appears distressed, uncomfortable, Behavior is calm, cooperative, appropriate cp4 for age. Pain: Complains of pain in left flank Pain currently is 10 out of 10 on a pain scale. EENT: No signs and/or symptoms were reported regarding the EENT system. Neuro: Level of Consciousness is awake, alert, obeys commands, Oriented to person, place, time, situation. Cardiovascular: No deficits noted. Cardiovascular:. Respiratory: No deficits noted. GI: No signs and/or symptoms were reported involving the gastrointestinal system. : No signs and/or symptoms were reported regarding the genitourinary system. Derm: No signs and/or symptoms reported regarding the dermatologic system. Musculoskeletal: No signs and/or symptoms reported regarding the musculoskeletal system. 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 - Infectious Disease History:: Denies. - Social history:: Smoking status: Patient denies any tobacco usage or history of. Screenin:21 [facility] ED Fall Risk Assessment (Adult) History of falling in the last 3 months, cp4 including since admission No falls in past 3 months (0 pts) Confusion or Disorientation No (0 pts) Intoxicated or Sedated No (0 pts) Impaired Gait No (0 pts) Mobility Assist Device Used No (0 pt) Altered Elimination No (0 pt) Score/Fall Risk Level 0 - 2 = Low Risk Oriented to surroundings, Maintained a safe environment, Assessed \T\ reinforced patient's understanding of fall precautions, Hourly rounding (assess needs \T\ fall precautionary measures) done. Abuse screen: Denies threats or abuse. Nutritional screening: No deficits noted. Tuberculosis screening: No symptoms or risk factors identified. Assessment: 02:21 Reassessment: No changes from previously documented assessment. cp4 03:00 Reassessment: Patient appears in no apparent distress at this time. Patient and/or cp4 family updated on plan of care and expected duration. Pain level reassessed. Patient is alert, oriented x 3, equal unlabored respirations, skin warm/dry/pink. 04:00 Reassessment: Patient appears in no apparent distress at this time. Patient and/or cp4 family updated on plan of care and expected duration. Pain level reassessed. Patient is alert, oriented x 3, equal unlabored respirations, skin warm/dry/pink. 05:00 Reassessment: Patient appears in no apparent distress at this time. Patient and/or cp4 family updated on plan of care and expected duration. Pain level reassessed. Patient is alert, oriented x 3, equal unlabored respirations, skin warm/dry/pink. 06:00 Reassessment: Patient appears in no apparent distress at this time. Patient and/or cp4 family updated on plan of care and expected duration. Pain level reassessed. Patient is alert, oriented x 3, equal unlabored respirations, skin warm/dry/pink. Vital Signs: 02:18 BP 152 / 101; Pulse 85; Resp 18; Temp 97.8; Pulse Ox 100% ; Pain 10/10; cp4 03:00 BP 138 / 85; Pulse 76; Resp 18; Pulse Ox 100% ; cp4 04:00 BP 131 / 81; Pulse 84; Resp 18; Pulse Ox 100% ; cp4 05:00 BP 129 / 84; Pulse 83; Resp 18; Pulse Ox 98% ; cp4 06:00 BP 134 / 83; Pulse 88; Resp 18; Pulse Ox 99% ; cp4 07:00 BP 128 / 79; Pulse 88; Resp 20; Pulse Ox 99% ; cp4 02:18 Pain Scale: Adult cp4 ED Course: 02:18 Patient arrived in ED. cp4 02:18 Tarsha Armijo is Primary Nurse. cp4 02:18 Darien Randolph DO is Attending Physician. ms3 02:19 Triage completed. cp4 02:19 Arm band placed on left wrist. Patient placed in an exam room, on a stretcher. cp4 02:21 Bed in low position. Call light in reach. Side rails up X2. cp4 02:31 No provider procedures requiring assistance completed. Inserted saline lock: 20 gauge cp4 in right antecubital area, using aseptic technique. Blood collected. Flushed with 10 mL NS. 03:12 Urinalysis w/ reflexes Sent. cp4 03:14 Urine collected: clean catch specimen, cloudy. cp4 03:31 Abdomen In Process Unspecified. EDMS 03:45 Initial lab(s) drawn, by ct, sent to lab. First set of blood cultures drawn EKG done, cp4 by ED staff, reviewed by Darien Randolph DO. 03:48 Blood Culture Adult (2) Sent. cp4 03:48 Lactate w/ 2H reflex if indic. Sent. cp4 03:48 Protime (+inr) Sent. cp4 03:48 Ptt, Activated Sent. cp4 06:12 \T\0525 transfer initiated by Sun Edwards with Tiffany from the [facility] transfer center/ \T\ eb 0547 Dr. Akilah Ramos the hospitalist precipitation equipment tender for [facility] connected with Dr. Randolph for patient transfer consultation. / \T\0553 administrative approval given to Sun by Tiffany Miller from the [facility] transfer center, patient has been accepted to [facility] 10b bed 1033/ Dr. Akilah Ramos has accepted the patient in transfer/ report to be called to [phone]. 07:01 Provided Education on: transfer. cp4 07:01 Inserted Patient transferred, IV remains in place. cp4 Administered Medications: 02:31 Drug: morphine IVP or IV 4 mg IVP once over 4 mins Route: IVP; Infused Over: 4 mins; cp4 Site: right antecubital; 03:13 Follow up: Response: No adverse reaction cp4 02:31 Drug: Ondansetron IVP 4 mg IVP once; over 2 minutes Route: IVP; Site: right antecubital;cp4 03:12 Follow up: Response: No adverse reaction cp4 02:57 Drug: fentaNYL (PF) IVP 50 mcg IVP once Route: IVP; Site: right antecubital; cp4 03:13 Follow up: Response: No adverse reaction; Pain is decreased cp4 03:49 Drug: Rocephin IV 1 grams IV at calculated rate once; Given slow IV push per pharmacy bm8 instructions Route: IV; Rate: calculated rate; Site: right antecubital; 03:51 Follow up: Response: No adverse reaction; IV Status: Completed infusion cp4 04:55 Drug: morphine IVP or IV 4 mg IVP once over 4 mins Route: IVP; Infused Over: 4 mins; cp4 Site: right antecubital; 05:40 Follow up: Response: No adverse reaction; Pain is decreased cp4 Medication: 02:21 VIS not applicable for this client. cp4 Outcome: 05:23 ER care complete, transfer ordered by ms3 07:01 Transferred by ground EMS to [facility], Transfer form cp4 completed. X-rays sent w/ patient. 07:01 Condition: stable 07:01 Instructed on the need for transfer, 07:14 Patient left the ED. rs5 Signatures: Dispatcher [employer] EDMS Shari Olivier Marcus, DO DO ms3 Steven Marino, RN RN rs5 Tarsha Armijo cp4 Jose Elias Shanks RN RN bm8
--- NOTE | 2024-06-24 05:24 | EDPHYS ---
Physician Documentation [facility] Name: Kitty Wall Age: 33 yrs Sex: Female : 1990 Arrival Date: 06/24/2024 Time: 02:16 Bed 4 Private MD: ED Physician Darien Randolph HPI: 06/24 03:43 This 33 yrs old Female presents to ER via EMS with complaints of Flank Pain. ms3 03:43 33-year-old female with past medical history of anxiety, bipolar, brain tumor, ms3 depression, kidney tumor, schizophrenia, seizures presents to the emergency department for left flank pain that began yesterday. Patient states her pain is a 10/10. Patient states she has a tumor on her left kidney and in the past has needed admission for blood transfusions. Patient endorses nausea and vomiting, denies hematuria. Patient states she has received treatment at [facility] in [place].. 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 - Infectious Disease History:: Denies. - Social history:: Smoking status: Patient denies any tobacco usage or history of. ROS: 03:43 Constitutional: Negative for fever, and chills. Neck: Negative for injury, pain, and ms3 swelling, Cardiovascular: Negative for chest pain, and palpitations. Respiratory: Negative for shortness of breath, cough, wheezing, and pleuritic chest pain, 03:43 Abdomen/GI: Positive for Left flank pain, Exam: 03:43 Constitutional: This is a well developed, well nourished patient who is awake, alert, ms3 and in no acute distress. Head/Face: Normocephalic, atraumatic. Chest/axilla: Normal chest wall appearance and motion. Nontender with no deformity. Cardiovascular: Regular rate and rhythm with a normal S1 and S2. No gallops, murmurs, or rubs. Normal PMI, no JVD. No pulse deficits. Respiratory: Lungs have equal breath sounds bilaterally, clear to auscultation and percussion. No rales, rhonchi or wheezes noted. No increased work of breathing, no retractions or nasal flaring. 03:43 Back: CVA tenderness, that is moderate, is noted on the left, 03:56 ECG was reviewed by the Attending Physician. ms3 Vital Signs: 02:18 BP 152 / 101; Pulse 85; Resp 18; Temp 97.8; Pulse Ox 100% ; Pain 10/10; cp4 03:00 BP 138 / 85; Pulse 76; Resp 18; Pulse Ox 100% ; cp4 04:00 BP 131 / 81; Pulse 84; Resp 18; Pulse Ox 100% ; cp4 05:00 BP 129 / 84; Pulse 83; Resp 18; Pulse Ox 98% ; cp4 06:00 BP 134 / 83; Pulse 88; Resp 18; Pulse Ox 99% ; cp4 07:00 BP 128 / 79; Pulse 88; Resp 20; Pulse Ox 99% ; cp4 02:18 Pain Scale: Adult cp4 MDM: 02:18 Patient medically screened. ms3 03:43 Differential diagnosis: nephrolithiasis, pyelonephritis, UTI, Kidney tumor. Independent ms3 interpretation of the following test(s) in the Emergency Department CT Scan: My interpretation is CT abdomen pelvis without contrast reviewed by me revealing large tumor of the left kidney.. 04:37 ED course: Discharge papers from June 22, 2024 show patient was hospitalized for ms3 stage IV chronic kidney disease, tuberosclerosis, angiomyolipoma of both kidneys.. 05:53 Data reviewed: vital signs, nurses notes, lab test result(s), radiologic studies, and ms3 as a result, I will transfer patient. Consideration of Admission/Observation Patient transferred. Management of patient was discussed with the following: Dr Ramos. Counseling: I had a detailed discussion with the patient and/or guardian regarding the historical points, exam findings, and any diagnostic results supporting the discharge/admit diagnosis, lab results, radiology results, the need to transfer to another facility, for higher level of care, [facility] does not immediately have the required specialist. 06/24 02:19 Order name: CBC with Diff; Complete Time: 04:36 ms3 06/24 02:19 Order name: CMP; Complete Time: 03:29 ms3 06/24 02:56 Order name: Manual Differential; Complete Time: 04:36 EDMS 06/24 03:00 Order name: Urinalysis w/ reflexes; Complete Time: 03:29 ms3 06/24 03:30 Order name: Blood Culture Adult (2) ms3 06/24 03:30 Order name: Lactate w/ 2H reflex if indic.; Complete Time: 04:36 ms3 06/24 03:30 Order name: Protime (+inr); Complete Time: 04:36 ms3 06/24 03:30 Order name: Ptt, Activated; Complete Time: 04:36 ms3 06/24 03:11 Order name: Abdomen EDMS 06/24 02:19 Order name: IV Saline Lock; Complete Time: 02:31 ms3 06/24 02:19 Order name: Labs collected and sent; Complete Time: 02:31 ms3 06/24 03:30 Order name: Accucheck; Complete Time: 03:34 ms3 06/24 03:30 Order name: Cardiac monitoring; Complete Time: 03:34 ms3 06/24 03:30 Order name: EKG - Nurse/Tech; Complete Time: 03:45 ms3 06/24 03:30 Order name: IV Saline Lock - Large Bore; Complete Time: 03:34 ms3 06/24 03:30 Order name: O2 Per Protocol; Complete Time: 03:34 ms3 06/24 03:30 Order name: O2 Sat Monitoring; Complete Time: 03:34 ms3 06/24 03:30 Order name: Vital Signs; Complete Time: 03:34 ms3 EC:56 Rate is 76 beats/min. Rhythm is regular. QRS [place] is Normal. [place] interval is normal. ms3 Clinical impression: Normal ECG. Interpreted by me. Reviewed by me. Administered Medications: 02:31 Drug: morphine IVP or IV 4 mg IVP once over 4 mins Route: IVP; Infused Over: 4 mins; cp4 Site: right antecubital; 03:13 Follow up: Response: No adverse reaction cp4 02:31 Drug: Ondansetron IVP 4 mg IVP once; over 2 minutes Route: IVP; Site: right antecubital;cp4 03:12 Follow up: Response: No adverse reaction cp4 02:57 Drug: fentaNYL (PF) IVP 50 mcg IVP once Route: IVP; Site: right antecubital; cp4 03:13 Follow up: Response: No adverse reaction; Pain is decreased cp4 03:49 Drug: Rocephin IV 1 grams IV at calculated rate once; Given slow IV push per pharmacy bm8 instructions Route: IV; Rate: calculated rate; Site: right antecubital; 03:51 Follow up: Response: No adverse reaction; IV Status: Completed infusion cp4 04:55 Drug: morphine IVP or IV 4 mg IVP once over 4 mins Route: IVP; Infused Over: 4 mins; cp4 Site: right antecubital; 05:40 Follow up: Response: No adverse reaction; Pain is decreased cp4 Disposition Summary: 06/24/24 05:23 Transfer Ordered Notes: [facility] Reason: Higher level of care ms3 Condition: Stable ms3 Problem: new ms3 Symptoms: are unchanged ms3 Accepting Physician: Dr Ramos(06/24/24 07:14) rs5 Diagnosis - Angiomyolipoma ms3 - UTI ms3 - Leukocytosis ms3 - Left flank pain ms3 - Angiomyolipomatosis with hemorrhage ms3 Forms: - Medication Reconciliation Form ms3 - SBAR form ms3 Signatures: Dispatcher [employer] EDMS Darien Randolph DO DO ms3 Steven Marino, RN RN rs5 Tarsha Armijo cp4 Jose Elias Shanks RN RN bm8 Corrections: (The following items were deleted from the chart) 02:19 02:19 Abdomen Pelvis W Con+CT.RAD.BRZ ordered. EDMS EDMS 03:11 02:20 Abdomen Pelvis W Con+CT.RAD.BRZ ordered. EDMS EDMS 05:25 05:23 Dr machuca ms3 05:54 05:25 Dr plummer3 ms3 07:14 05:54 Dr Ramos ms3 rs5
[2024-06-24 07:23] VITALS: TEMP 97.8
[2024-06-24 07:40] VITALS: O2SAT 99
[2024-06-24 07:41] VITALS: BP 128/79
--- NOTE | 2024-06-24 12:48 | RAD REPORT ---
EXAM DESCRIPTION: CT - Abdomen Pelvis Wo Contrast - 06/24/2024 3:27 am CLINICAL HISTORY: The patient is 33 years old and is Female; Left flank pain, hx of tumor TECHNIQUE: Axial computed tomography images of the abdomen and pelvis without intravenous contrast. Sagittal and coronal reformatted images were created and reviewed. This CT exam was performed usi ng one or more of the following dose reduction techniques: automated exposure control, adjustment o f the mA and/or kV according to patient size, and/or use of iterative reconstruction technique. COMPARISON: May 23, 2023. FINDINGS: Lung bases: Unremarkable. No mass. No consolidation. ABDOMEN: Liver: Unremarkable. Gallbladder and bile ducts: Unremarkable. No calcified stones. No ductal dilation. Pancreas: Unremarkable. No ductal dilation. Spleen: Unremarkable. No splenomegaly. Adrenals: Unremarkable. No mass. 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 There is s cattered internal hyperdensity within the tumor suggestive of hemorrhage as well as a 4 x 12 x 10 cm heterogeneously hyperdense anterior perirenal collection consistent with left retroperitoneal hematom a. Right kidney is absent. No obstructing stones. No hydronephrosis. Stomach and bowel: Unremarkable. No obstruction. No mucosal thickening. PELVIS: Appendix: No findings to suggest acute appendicitis. Bladder: Unremarkable. Reproductive: Unremarkable as visualized. ABDOMEN and PELVIS: Intraperitoneal space: Small amount of free fluid along the left paracolic gutter. No free air. Bones/joints: Scattered sclerotic lesions in the osseous structures. No acute fracture. No dislocation. Soft tissues: Unremarkable. Vasculature: Unremarkable. No abdominal aortic aneurysm. 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 There is scattered int ernal hyperdensity within the tumor suggestive of hemorrhage as well as a 4 x 12 x 10 cm heterogeneou sly hyperdense anterior perirenal collection consistent with left retroperitoneal hematoma. Electronically signed by: Vicente Cueva MD 06/24/2024 04:59 AM CDT 8 Due to temporary technical issues with the PACS/Fluency reporting system, reports are being signed by the in house radiologist without review as a courtesy to ensure prompt reporting. The interpreting r adiologist is fully responsible for the content of the report.
--- NOTE | 2024-06-24 13:44 | EKG ---
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
== END 2024-06-24 07:14 | disposition short-term general hospital (02) ==
LOC: ER 02:16
DX: D17.71 Benign lipomatous neoplasm of kidney (principal); K68.3 Retroperitoneal hematoma; N39.0 Urinary tract infection, site not specified; D72.829 Elevated white blood cell count, unspecified; Z90.5 Acquired absence of kidney
CPT/HCPCS: 93005; 87040 ×2; 85025; 81001; 36415; 85610; 83605; 85730; 80053; 74176; 96375; 96374; 99285; J3010; J2405; J0696

== ENCOUNTER 2024-12-11 17:11 | Emergency (ER) | payer OTHER ==
--- OUTSIDE RECORDS SUMMARY | 2024-12-11 17:24 | XMS REPORT | Continuity of Care Document ---
Author Name Unknown Address [address] [facility] [address]. [address] [place] [address] [facility] thconnect Address [address] [facility]. [address] [place] [address] Care Team Providers Care Glost Kiln Placer Name Role Phone Sharla Pino Primary Care Physician Shantelle Bates Attending Clinician Unavailable JOSHUA LOPEZ Attending Clinician Unavailable JOSHUA LOPEZ Attending Clinician Unavailable Visit, Marychfran Nurse Attending Clinician Unava ilAlberta Watkins Attending Clinician + ALBERTA HURST Attending Clinician Unavail able Pob, [facility] Main Attending Clinician Unavailhattie Verdugo MD, Precious Harvey Attending Clinician [phone] PRECIOUS VERDUGO Attending Clinician Unavailabl IMAN Sandhu Attending Clinician Unavailable ADUMIMAN Attending Clinician Unavailable Nurse, [facility] Women's [facility] Attending Clinician Un available Iman Jones MD Attending Clinician [phone] BERNICE RYDER Attending Clinician Unavailable Sonu INFORMATION RESOURCES MANAGER, Bernice Attending Clinician [phone] PRINCESS CHIRINOS Attending Clinician Unavailable Toshia Crowley DO Attending Clinician [phone] Tari Rowley MD Attending Clinician [phone] Princess Turpin MD Attending Clinician [phone] Princess Chirinos MD Attending Clinician [phone] Alma Nguyen MD Attending Clinician [phone] Mike HUERTA, Jackie Barker Attending Clinici an Maris Ferrari RN Attending Clinician [phone] Leydi Boss DO Attending Clinician [phone] JULITA RAMOS Attending Clinician Unavailable JULITA RAMOS Attending Clinician Unavailable Julita Ramos DO Attending Clinician [phone] Doctor Unassigned, [place] Attending Clinician U navailable Stefan De Souza NP Attending Clinician [phone] Apolinar Sanchez MD Attending Clinician +[phone] Darien Cornejo MD Attending Clinician +[phone] Raad Rothman MD Attending Clinician [phone] ANGELO WARE Attending Clinician Unavailable ANGELO WARE Attending Clinician Unavailable Angelo Ware MD Attending Clinician [phone] STEFAN DE SOUZA Attending Clinician Unavailable AP, STEFAN Attending Clinician Unavailable ALMA NGUYEN Attending Clinician UnavailJamila Hubbard MD Attending Clinician [phone] Patrick Tillman MD KGayleHGayle Attending Clinician [phone] LISA KNAPP Attending Clinician Unavailable Lisa Knapp MD Attending Clinician [phone] Nurse, [facility] Attending Clinician Un available JAMILA WHEELER Attending Clinician Unamayur ilmartell Labs, [facility] Transplant Attending Clinician Unavail able Transplant, Kidney Surgery Attending Clinician U navdonavon Glass Carrier, Transplant Attending Clinician Karl lable Worker, Transplant Social Attending Clinician Un available Celi CNMJunie Attending Clinician [phone] Celi CNJunie Paul Attending Clinician [phone] Akinsipe WHCNP, Alberta C Attending Clinician + PATRICK TILLMANHGayle Attending Clinician UnavailKati Bui MD Attending Clinician +[phone] KATI PERRY Attending Clinician Unavailable Jamila Wheeler MD Attending Clinician +[phone] Alma Nguyen MD Attending Clinician [phone] Doctor Unassigned, [place] Attending Clinician U THIERNO Mckenna Attending Clinician Unavailable Thierno Sherman MD Attending Clinician [phone] Obed Narayan MD Attending Clinician [phone] OBED NARAYAN Attending Clinician Unavailable Visit, [facility] Nurse Attending Clinician Unava ilKADE Zuniga Attending Clinician Unavailable KADE LIU Attending Clinician Unavailable Kade Liu DO Attending Clinician [phone] JUNIE ALATORRE Attending Clinician Unavailcandice wu Therapist, [facility] Respiratory Attending Clinician U paul Edwards, [facility] Sleep Lab Attending Clinician UnavailBrandy Carmona MD Attending Clinician + [phone] BRANDY WHITESIDE Attending Clinician Unavaila ble ATANASOV, STRAHIL T Attending Clinician Unavaila ble AL TAII, TRINY Attending Clinician Unavailable AL TAII, TRINY Attending Clinician Unavailable LISA TILLMAN Attending Clinician Unav ailable LISA TILLMAN Attending Clinician Unav ailable GC_GCBZW_Kadiyala_S Attending Clinician Unavaila ble Nurse, [facility] Obgyn Attending Clini terra Unavailable Junior HUERTA, Patrick Bingham Attending Clinician [phone] Pob, [facility] Main Attending Clinician UnavailTari Roche MD Attending Clinician [phone] TARI TRIVEDI Attending Clinician Unavailabl AVE Vieira Attending Clinician Unavailable Rupesh HOOK AND EYE MACHINE OPERATORAve Isbell Attending Clinician [phone] VANDANA FENTON Attending Clinician Unavailab camden Verdugo MD, Precious Harvey Attending Clinician [phone] Vandana Ardon Attending Clinician + [phone] DELILAH JOYA Attending Clinician Unavailable SABRINA WOOTEN RP Attending Clinician Unavailable Sabrina Wooten MD, Rp Attending Clinician [phone] PREET ORTIZ Attending Clinician Unavaila vince [facility] Attending Clinician Unavailable Pritesh Bryant Attending Clinician [phone] Preet Ortiz MD Attending Clinician + [phone] LA BRANCH Attending Clinician Unavailable Brad Barnes MD Attending Clinician [phone] Flaquito URIAS, Connie Attending Clinician Unava ilJimmy Bingham MD Attending Clinician [phone] Tania Asencio Attending Clinician +[phone] PRITESH GREENFIELD Attending Clinician UnavailJoshua Orta MD Attending Clinician +[phone] JIMMY MADRID Attending Clinician Unavailhattie ahmadi Only, [facility] Test Attending Clinician Unavailable Akhil Dumas MD Attending Clinician [phone] AKHIL DUMAS Attending Clinician Unavailable Josseline Capone MD Attending Clinician +[phone] JOSSELINE CAPONE Attending Clinician Unavailable FABIOLA IZAGUIRRE Attending Clinician Unavailable ASHLEY HODGES Attending Clinician Unavailable KASH DU Attending Clinician Unavailable PAOLA SAEZ Attending Clinician Unavailable ABUNDIO OLIVA Attending Clinician Unavail able Call, [facility] Phone Attending Clinician Unavail able GIL CORTEZ Attending Clinician Unavail able GIL CORTEZ Attending Clinician Unavail able RENATO SANTIAGO Attending Clinician Unavailab SHAKIR Barrios Attending Clinician Unavailable Shea Medina DO Attending Clinician +[phone] SHEA MEDINA Attending Clinician Unavailable Renato Santiago MD Attending Clinician [phone] Mariana Cooley Attending Clinician [phone] UNKNOWN, ATTENDING Attending Clinician Unavailab DAVID Marrero III Attending Clinician UnavailCOCO Urbina Attending Clinician Unavailab Fabiola Villareal Attending Clinician +[phone] JAMEY HIGGINBOTHAM Attending Clinician Unavail able Jamey Higginbotham DO Attending Clinician [phone] Nurse, [facility] Attending Clinician Un available YOVANNY CHOI Attending Clinician Unavailable KATARINA WIGGINS Attending Clinician Unavailabl ROSANA Hawkins Attending Clinician Unavailable Brian Edwards NP Attending Clinician [phone] BRIAN EDWARDS Attending Clinician Unavailable HI GREENFIELD Attending Clinician Unavaila RAJ Pulliam Attending Clinician Unavailable YANIQUE ROLON Attending Clinician Unavailable MARCELO POWELL III Attending Clinician Unavaila ALFREDO Freeman M.D. Attending Clinician ALONZO Flores M.D. Attending Clinician LAYA Persaud M.D. Attending Clinician Unavail able JOSHUA LOPEZ Admitting Clinician Unavailable JULITA RAMOS Admitting Clinician Unavailable Julita Ramos DO Admitting Clinician [phone] DARIEN CORNEJO Admitting Clinician Unavailable Darien Cornejo MD Admitting Clinician +[phone] ANGELO WARE Admitting Clinician Unavailable THIERNO SHERMAN Admitting Clinician Unavailable KADE LIU Admitting Clinician Unavailable GC_GCBZW_Kadiyala_S Admitting Clinician Unavaila ble ANGELO WARE S Admitting Clinician Unavailable PATRICK TILLMAN Admitting Clinician Unavaila PRECIOUS Pandya A Admitting Clinician UnavailSABRINA Angeles RP Admitting Clinician Unavailable Joshua Lopez MD Admitting Clinician YANIQUE ROLON Admitting Clinician Unavailable MARCELO POWELL III Admitting Clinician Unavaila HI [place] Admitting Clinician Unavaila ble Payers Payer Name Policy Type Policy Number Effective Date Expirati on Date Source [employer] [id number] 2015 00:00:00 [place] [id number] 2018 00:00:00 [place] [id number] 2018 00:00:00 [place] [id number] 2018 00:00:00 [place] [id number] 2018 00:00:00 [place] [id number] 2018 00:00:00 [place] [id number] 2018 00:00:00 [place] [id number] 2018 00:00:00 [place] [id number] 2018 00:00:00 [place] [id number] 2018 00:00:00 [facility] Problems Condition Name Condition Details Condition Category Status Onset Date Resolution Date Last Treatment Date Treating Clinician Comments Source Angiolipom a Angiolipom a Disease Active 06-24 00:00: 00 [facility] Active internal bleeding Active internal bleeding Disease Active 06-21 00:00: 00 Overview: Formattin g of this note might be different from the original. 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 4Right nephrecto my [...] l calculus or hydroneph rosis is present. 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 [facility] Anemia in stage 4 chronic kidney disease Anemia in stage 4 chronic kidney disease Disease Active 8-06 00:00: 00 [facility] History of abnormal cervical Pap smear History of abnormal cervical Pap smear Disease Active 04-05 00:00: 00 Overview: Formattin g of this note might be different from the original. 0 LGSIL +HPV01 Colpo neg2021 LGSIL +HPV01/31 negative PAP and HPV2023 negative PAP and HPV, repeat 3 years [facility] Low grade squamous intraepith elial lesion (LGSIL) on cervical Pap smear Low grade squamous intraepith elial lesion (LGSIL) on cervical Pap smear Disease Active 12-03 00:00: 00 Overview: Formattin g of this note might be different from the original. +hpv, pending colpo appt [facility] Encounter for surveillan ce of implantabl e subdermal contracept ric Encounter for surveillan ce of implantabl e subdermal contracept ric Disease Active 08-06 00:00: 00 [facility] Dysphagia, pharyngoes ophageal phase Dysphagia, pharyngoes ophageal phase Disease Active 917 00:00: 00 Overview: Formattin g of this note might be different from the original. Added automatic ally from request for surgery [id number] [facility] BRYAN (acute kidney injury) BRYAN (acute kidney injury) Disease Active 05-07 00:00: 00 [facility] BRYAN (acute kidney injury) BRYAN (acute kidney injury) Disease Active 6 00:00: 00 [facility] RLS (restless legs syndrome) RLS (restless legs syndrome) Disease Active 2-22 00:00: 00 [facility] Anxiety Anxiety Disease Active 2-22 00:00: 00 [facility] Vitamin D deficiency Vitamin D deficiency Disease Active 1- 00:00: 00 [facility] Vitamin B6 deficiency Vitamin B6 deficiency Disease Active 1- 00:00: 00 [facility] Papanicola ou smear of cervix with low grade squamous intraepith elial lesion (LGSIL) Papanicola ou smear of cervix with low grade squamous intraepith elial lesion (LGSIL) Disease Active 2019-11 0-26 00:00: 00 [facility] Cervical high risk human papillomav irus (HPV) DNA test positive Cervical high risk human papillomav irus (HPV) DNA test positive Disease Active 2019-11 0-19 00:00: 00 [facility] Iron deficiency Iron deficiency Disease Active 2019-11 0-16 00:00: 00 [facility] Chronic fatigue Chronic fatigue Disease Active 2019-11 0-16 00:00: 00 [facility] Depression , major, single episode, mild Depression , major, single episode, mild Disease Active 7- 00:00: 00 Overview: Formattin g of this [...] urgent/em ergent care including calling Suicide Hotline () or 510.Follo w up in one month with Psycholog ist, Counselor , Support group, Psycholog ist/Couns elor/Supp ortGroup/ Psychiatr ist and PCP [facility] Major depressive disorder, recurrent, in partial remission Major depressive disorder, recurrent, in partial remission Disease Recurre nce 05-21 00:00: 00 Overview: Formattin g of [...] urgent/em ergent care including calling Suicide Hotline (145 or 1-026-409 [phone]) or 885. Follow up in three months with Psycholog ist/Couns elor/Supp ortGroup/ Psychiatr ist and PCP [facility] Constipati on Constipati on Disease Active 04-22 00:00: 00 Overview: Formattin g of this note might be different from the original. Last Assessmen t & Plan: Condition : stableFol low up in: three months [facility] Environmen windy and seasonal allergies Environmen windy and seasonal allergies Disease Active 04-22 00:00: 00 Overview: Formattin g of this note might be different from the original. Last Assessmen t & Plan: Condition : stableFol low up in: three months [facility] Primary insomnia Primary insomnia Disease Active 04-22 00:00: 00 Overview: Formattin g of this note might be different from the original. Last Assessmen t & Plan: Condition : stableFol low up in: three months [facility] H/O right nephrectom y H/O right nephrectom y Disease Active 12-05 00:00: 00 Overview: Formattin g of this note might be different from the original. 2019 [facility] Status post nephrectom y Status post nephrectom y Disease Active 12-05 00:00: 00 [facility] Pulmonary nodules Pulmonary nodules Disease Active 12-05 00:00: 00 [facility] Renal mass Renal mass Disease Active 2018-11 00:00: 00 Overview: Formattin g of this note might be different from the original. Added automatic ally from request for surgery [id number] [facility] Angiomyoli guevara of both kidneys Angiomyoli guevara of both kidneys Disease Active 2018-11 00:00: 00 Overview: Formattin g of this note might be different from the original. Added automatic ally from request for surgery [id number] [facility] Benign neoplasm of kidney Benign neoplasm [...] w status Problem [facility] Se[facility]ure disorder Seizure disorder Problem Active [facility] Back pain Back pain Problem Active [facility] Obesity Obesity Problem Active [facility] Insomnia Insomnia Problem Active [facility] Mixed anxiety and depressive disorder Depression with anxiety Problem Active [facility] Angiomyoli guevara of left kidney Angiomyoli guevara of left kidney Problem Active [facility] Seizure Seizures Problem Active [facility] [id number] Pornograph y addiction Problem Active [facility] [id number] BCP ( control pills) initiation Problem Active [facility] [id number] Exposure to sexually transmitte d disease (STD) Problem Active [facility] Tuberous sclerosis Tuberous sclerosis Problem Active [facility] [id number] Acne rosacea Problem Active [facility] [id number] Gastroesop hageal reflux disease without esophagiti s Problem Active [facility] [id number] Uses control Problem Active [facility] Onychomyco sis Onychomyco sis Problem Active [facility] Panic disorder Panic attacks Problem Active [facility] [id number] Seasonal allergies Problem Active [facility] [id number] test performed, confirmed Problem Active [facility] Pre-transp lant evaluation for kidney transplant Pre-transp lant evaluation for kidney transplant Disease Resolve d 2021-0 1-27 00:00: 00 2024-06-20 00:00:00 2024-06-20 12:11:18 [facility] Gastritis Gastritis Disease Resolve d 1 0-10 00:00: 00 2024-06-20 00:00:00 2024-06-20 12:11:29 [facility] Dysuria Dysuria Disease Resolve d 2020-0 9-24 00:00: 00 2024-06-20 00:00:00 2024-06-20 12:11:13 [facility] Acute left flank pain Acute left flank pain Disease Resolve d 2020-0 6-29 00:00: 00 2024-06-20 00:00:00 2024-06-20 12:11:41 [facility] Benign renal tumor Benign renal tumor Disease Resolve d 2020-0 4-28 00:00: 00 2024-06-20 00:00:00 2024-06-20 12:09:41 [facility] Acute midline low back pain without [...] as possible. Follow up in: three months [facility] Nausea Nausea Disease Resolve d 2019-0 6-10 00:00: 00 2024-06-20 00:00:00 2024-06-20 12:09:25 [facility] Nerve pain Nerve pain Disease Resolve d 2019- 6-10 00:00: 00 2024-06-20 00:00:00 2024-06-20 12:09:26 Overview: Formattin g of this note might be different from the original. Last Assessmen t & Plan: Condition : stableFol low up in: three months [facility] Obesity (BMI 30-39.9) Obesity (BMI 30-39.9) Disease Resolve d 2018-11 1-15 00:00: 00 2024-06-20 00:00:00 2024-06-20 12:09:14 [facility] Mass of right kidney Mass of right kidney Disease Resolve d 2018-11 00:00: 00 2024-06-20 00:00:00 2024-06-20 12:09:11 [facility] Vaginal discharge Vaginal discharge Disease Resolve d 2020-0 9-24 00:00: 00 2023-09-12 00:00:00 2023-09-12 15:05:30 [facility] Bacterial vaginitis Bacterial vaginitis Disease Resolve d 2019-11 0-19 00:00: 00 2023-09-12 00:00:00 2023-09-12 15:05:32 [facility] Candidiasi s of vulva and vagina Candidiasi s of vulva and vagina Disease Resolve d 2019-11 0-19 00:00: 00 2023-09-12 00:00:00 2023-09-12 15:05:33 [facility] Allergies, Adverse Reactions, Alerts Allergy Name Allergy Type Status Severity Reaction(s) Onset Date Inactive Date Treating Clinician Comments Source NO KNOWN ALLERGIE S Drug Class Active [facility] Family History Family Member Diagnosis Comments Start Date Stop Date Sourc e Natural brother Other - see comments [facility] Natural father MS (multiple sclerosis) [facility] Maternal Aunt CA (myocardial infarction) [facility] Maternal [facility] Maternal grandmother Hypercholesterolemia [facility] Maternal grandmother Hypertension [facility] Natural mother Kidney failure [facility] Natural mother Other - see comments [facility] Other Hypothyroidism Unive rsity [facility] Social History Social Habit Start Date Stop Date Quantity Comments Source Gender [facility] Sexual orientation [facility] History SDOH Alcohol Std Drinks [facility] History SDOH Alcohol Binge [facility] History SDOH Alcohol Comment [facility] History of Tobacco Use Common [facility] Sex Assigned At Common [facility] Alcoholic beverage intake 2024-09-12 00:00:00 2024-09-12 00:00:00 Lifetime non-drinker (finding) [facility] Tobacco use and exposure 2024-06-20 00:00:00 2024-06-20 00:00:00 Smokeless tobacco non-user [facility] History of Social function 2024-06-18 00:00:00 2024-06-18 00:00:00 [facility] Alcohol intake 2024-01-09 00:00:00 2024-01-09 00:00:00 Lifetime non-drinker (finding) [facility] Exposure to SARS-CoV-2 (event) 2023-03-12 00:00:00 2023-03-22 07:37:00 Not sure [facility] Education 2021-05-07 00:00:00 2021-05-07 00:00:00 13 [facility] History SDOH Alcohol Frequency 2020-01-17 00:00:00 2020-01-17 00:00:00 1 [facility] History SDOH Financial 2019-09-26 00:00:00 2019-09-26 00:00:00 5 [facility] History SDOH Food Worry 2019-09-26 00:00:00 2019-09-26 00:00:00 1 [facility] History SDOH Food Scarcity 2019-09-26 00:00:00 2019-09-26 00:00:00 1 [facility] History SDOH Transport Med 2019-09-26 00:00:00 2019-09-26 00:00:00 2 [facility] History SDOH Transport Non-Med 2019-09-26 00:00:00 2019-09-26 00:00:00 2 [facility] Smoking Status Start Date Stop Date Source Never smoked tobacco [facility] Medications Ordered Medication Name Filled Medication Name Start Date Stop Date Current Medication? Ordering Clinician Indication Dosage Frequency Signature (SIG) Comments Components Source docusate sodium 100 mg tablet 2023-11 00:00: 00 Yes 1mg Hi Bañuelos lactulose 20 gram/30 mL oral solution 2023-11 00:00: 00 Yes 30gram/ 30 mL Hi Bañuelos ketorolac (TORADOL) tablet 10 mg 2023-11 21:00: 00 09-02 20:28 :00 No 10mg 10 mg, Oral, ONCE, 1 dose, On Mon09/02/24 at 1600, Routine [facility] ondansetron (ZOFRAN-ODT ) disintegrat ing tablet 4 mg 2023-11 20:45: 00 09-02 20:28 :00 No 4mg 4 mg, Oral, ONCE, 1 dose, On Mon09/02/24 at 1545, Routine [facility] magnesium oxide 400 mg magnesium capsule 2023-11 16:04: 56 Yes 400mg Take 1 capsule by mouth in the morning. [facility] ondansetron 4 mg disintegrat ing tablet 2023-11 00:00: 00 Yes [id number] 4mg Take 1 tablet by mouth every 8 (eight) hours as needed for Nausea and Vomiting (N/V). [facility] buspirone 7.5 mg tablet 2023-11 00:00: 00 Yes 1mg Hi Bañuelos Prozac 20 mg capsule 2023-11 00:00: 00 Yes 1mg Hi Bañuelos FUROSEMIDE 40 mg tablet 07-24 00:00: 00 Yes [id number] 40mg TAKE 1 TABLET BY MOUTH EVERY DAY IN THE MORNING [facility] sodium bicarbonate 650 mg tablet 07-17 00:00: 00 Yes [id number] 1300mg Take 2 tablets by mouth in the morning and 2 tablets at noon and 2 tablets in the evening. [facility] buspirone 7.5 mg tablet 07-11 00:00: 00 Yes 1mg Hi Bañuelos Prozac 20 mg capsule 07-11 00:00: 00 Yes 1mg Hi Bañuelos furosemide 40 mg tablet 07-02 00:00: 00 07-24 00:00 :00 No [id number] 40mg Take 1 tablet by mouth in the morning. [facility] sodium bicarbonate (ANTACID (SODIUM BICARBONATE )) tablet 1,300 mg 07-01 19:00: 00 Yes 1300mg 1,300 mg, Oral, TID, First dose (after last modificati on) on Mon07/01/24 at 1400, Until Discontinu ed, Routine [facility] sodium bicarbonate 650 mg tablet 07-01 00:00: 00 07-17 00:00 :00 No [id number] 1300mg Take 2 tablets by mouth in the morning and 2 tablets at noon and 2 tablets in the evening. [facility] cefTRIAXone (ROCEPHIN) 1,000 mg in NaCl 0.9% (NS) 100 mL MINI-BAG 06-30 05:00: 00 06-30 06:13 :00 No 1000mg 1,000 mg, IV Piggyback, Q24H ABX, 1 dose, First dose (after last modificati on) on Mon06/30/24 at 0000, Administer over 30 Minutes, 100 mL, Reason for Anti-Infec tive: Empiric Therapy for Suspected Infection, Empiric Therapy Site: Urine, Duration of therapy: 5 days [facility] sennosides- docusate sodium (SENOKOT-S) 8.6-50 mg per tablet 1 tablet 06-30 02:00: 00 Yes 1{tbl} 1 tablet, Oral, DAILY, First dose on Mon06/29/24 at 2100, Until Discontinu ed, Routine [facility] polyethylen e glycol 3350 powder 17 g 06-30 02:00: 00 Yes 17g 17 g, Oral, DAILY, First dose on Mon06/29/24 at 2100, Until Discontinu ed, [facility] cefTRIAXone (ROCEPHIN) 1,000 mg in NaCl 0.9% (NS) 100 mL MINI-BAG 06-29 05:00: 00 06-29 11:40 :56 No 1000mg 1,000 mg, IV Piggyback, Q24H ABX, 3 doses, First dose on Mon06/29/24 at 0000, Last dose on 07/01/24 at 0000, Administer over 30 Minutes, 100 mL, Reason for Anti-Infec tive: Empiric Therapy for Suspected Infection, Empiric Therapy Site: Urine, Duration of therapy: 5 days [facility] furosemide (LASIX) tablet 40 mg 06-28 20:00: 00 Yes 40mg 40 mg, Oral, DAILY, First dose on Mon06/28/24 at 1500, Until Discontinu ed, Routine [facility] sodium bicarbonate (ANTACID (SODIUM BICARBONATE )) tablet 1,300 mg 06-27 21:00: 00 07-01 16:49 :22 No 1300mg 1,300 mg, Oral, QID, First dose (after last modificati on) on Trang 06/27/24 at 1600, Until Discontinu ed, Routine [facility] ceFAZolin (ANCEF) injection 06-27 17:08: 52 06-27 17:08 :52 No Slow IV Push, PRN, Starting on Trang 06/27/24 at 1208, Until Trang 06/27/24 at 1208, ENRIQUE, Intra-op [facility] lidocaine 1% (XYLOCAINE) 10 mg/mL (1 %) injection 06-27 16:52: 05 06-27 16:52 :05 No PRN, Starting on Trang 06/27/24 at 1152, Until Trang 06/27/24 at 1152, Routine, Intra-op [facility] fentanyl PF (SUBLIMAZE (PF)) injection 06-27 16:50: 00 06-27 16:50 :00 No Slow IV Push, PRN, Starting on Trang 06/27/24 at 1150, Until Trang 06/27/24 at 1150, Routine, Intra-op [facility] midazolam (VERSED) injection 06-27 16:50: 00 06-27 16:50 :00 No IV Push, PRN, Starting on Mon06/27/24 at 1150, Until Mon06/27/24 at 1150, Routine, Intra-op [facility] sodium bicarbonate (ANTACID (SODIUM BICARBONATE )) tablet 1,300 mg 06-26 19:00: 00 06-27 17:54 :22 No 1300mg 1,300 mg, Oral, TID, First dose on Mon06/26/24 at 1400, Until Discontinu ed, Routine [facility] HYDROcodone -acetaminop hen (NORCO 5) tablet 1 tablet 06-25 15:46: 13 Yes 1{tbl} 1 tablet, Oral, Q6HPRN, Starting on Mon06/25/24 at 1046, Until Discontinu ed, ENRIQUE, Pain (scale 7-10) [facility] Lidocaine (LIDOCARE) 4 % patch 1 Patch 06-25 14:45: 00 06-26 02:17 :00 No 1{patch } 1 Patch, Topical, Administer over 12 Hours, ONCE, 1 dose, On Mon06/25/24 at 0945, Routine [facility] ondansetron (ZOFRAN (PF)) injection 4 mg 06-25 14:21: 17 Yes 4mg 4 mg, Slow IV Push, Q6HPRN, Nausea and Vomiting (N/V), Starting on Mon06/25/24 at 0921, Doses of ondansetro n 16 mg and above need to be administer ed via IV piggyback. For Dose >=24mg ECG monitoring is advisable. [facility] pantoprazol e (PROTONIX) EC tablet 40 mg 06-25 14:00: 00 Yes 40mg 40 mg, Oral, DAILY, First dose on Mon06/25/24 at 0900, Until Discontinu ed [facility] escitalopra m oxalate (LEXAPRO) tablet 20 mg 06-25 14:00: 00 Yes 20mg 20 mg, Oral, DAILY, First dose on Mon06/25/24 at 0900, Until Discontinu ed, Routine [facility] morphine (2 mg/mL) injection 2 mg 06-25 13:58: 02 Yes 2mg 2 mg, Slow IV Push, Q6HPRN, Starting on Mon06/25/24 at 0858, Until Discontinu ed, Routine, Pain (scale 7-10) [facility] ceFEPIme (MAXIPIME) 1,000 mg in NaCl 0.9% (NS) 100 mL MINI-BAG 06-25 13:00: 00 06-28 21:38 :36 No 1000mg 1,000 mg, IV Piggyback, Q24H ABX, 7 doses, First dose on Mon06/25/24 at 0800, Last dose on Mon07/01/24 at 0800, Administer over 30 Minutes, 100 mL, Reason for Anti-Infec tive: Documented Infection, Documented Infection Site: Urine, Duration of Therapy: 7 days [facility] lactated ringers IV infusion 1,000 mL 06-25 13:00: 00 06-26 15:28 :48 No 1000mL at 75 mL/hr, 1,000 mL, IV Infusion, CONTINUOUS , Starting on Mon06/25/24 at 0800, Until Mon06/26/24 at 1028, Routine [facility] magnesium sulfate in water 2 gram/50 mL (4 %) infusion 2 g 06-25 12:45: 00 06-25 15:18 :00 No 2g 2 g, IV Piggyback, Administer over 60 Minutes, ONCE, 1 dose, On Mon06/25/24 at 0745, Routine [facility] acetaminoph en-codeine (TYLENOL #3) 300-30 mg tablet 1 tablet 06-25 09:51: 00 06-25 09:57 :00 No 1{tbl} 1 tablet, Oral, ONCE, 1 dose, On Mon06/25/24 at 0500, Routine [facility] acetaminoph en (TYLENOL) tablet 650 mg 06-25 09:37: 09 Yes 650mg 650 mg, Oral, Q6HPRN, Starting on Mon06/25/24 at 0437, Until Discontinu ed, Routine, Pain (scale 1-3), Temp > 38 C [facility] ondansetron (ZOFRAN) tablet 4 mg 06-25 02:59: 00 06-25 03:15 :00 No 4mg 4 mg, Oral, ONCE, 1 dose, On Mon06/24/24 at 2200, Routine [facility] acetaminoph en-codeine (TYLENOL #3) 300-30 mg tablet 1 tablet 06-25 01:21: 00 06-25 01:41 :00 No 1{tbl} 1 tablet, Oral, ONCE, 1 dose, On Mon06/24/24 at 2030, Routine [facility] busPIRone (BUSPAR) tablet 5 mg 06-25 01:00: 00 Yes 5mg 5 mg, Oral, BID, First dose on Mon06/24/24 at 2000, Until Discontinu ed, Routine [facility] lamoTRIgine (LAMICTAL) tablet 100 mg 06-25 01:00: 00 Yes 100mg 100 mg, Oral, BID, First dose on Mon06/24/24 at 2000, Until Discontinu ed, Routine [facility] lactated ringers IV infusion 500 mL 06-24 18:30: 00 06-24 18:15 :00 No 500mL at 999 mL/hr, 500 mL, Intravenou s, ONCE, 1 dose, On Mon06/24/24 at 1330, Routine [facility] cefTRIAXone (ROCEPHIN) 1,000 mg in NaCl 0.9% (NS) 100 mL MINI-BAG 06-24 18:00: 00 06-25 11:51 :06 No 1000mg 1,000 mg, IV Piggyback, Q24H ABX, 6 doses, First dose on Mon06/24/24 at 1300, Last dose on Mon06/29/24 at 1300, Administer over 30 Minutes, 100 mL, Reason for Anti-Infec tive: Documented Infection, Documented Infection Site: Urine, Duration of Therapy: 7 days [facility] acetaminoph en-codeine (TYLENOL #3) 300-30 mg tablet 1 tablet 06-24 16:27: 25 06-25 15:46 :54 No 1{tbl} 1 tablet, Oral, Q4HPRN, Starting on Mon06/24/24 at 1127, Until Mon06/25/24 at 1046, Routine, Pain (scale 7-10) [facility] melatonin (MELATIN) tablet 3 mg 06-22 06:00: 00 06-22 06:42 :00 No 3mg 3 mg, Oral, ONCE, 1 dose, On Mon06/22/24 at 0100, Routine [facility] acetaminoph en-codeine (TYLENOL #3) 300-30 mg tablet 1 tablet 06-21 12:13: 38 Yes 1{tbl} 1 tablet, Oral, Q4HPRN, Starting on Mon06/21/24 at 0713, Until Discontinu ed, Routine, Pain (scale 4-6) [facility] escitalopra m oxalate (LEXAPRO) tablet 20 mg 06-20 14:00: 00 Yes 20mg 20 mg, Oral, DAILY, First dose on Mon06/20/24 at 0900, Until Discontinu ed, Routine [facility] lamoTRIgine (LAMICTAL) tablet 100 mg 06-20 13:00: 00 Yes 100mg 100 mg, Oral, BID, First dose on Mon06/20/24 at 0800, Until Discontinu ed, Routine [facility] magnesium sulfate in water 4 gram/50 mL (8 %) IV Piggyback 4 g 06-20 13:00: 00 06-20 19:03 :00 No 4g 4 g, IV Piggyback, at 25 mL/hr Administer over 120 Minutes, ONCE, 1 dose, On Mon06/20/24 at 0800, Routine [facility] ondansetron (ZOFRAN (PF)) injection 4 mg 06-20 06:09: 35 Yes 4mg [facility] morphine (2 mg/mL) injection 4 mg 06-20 06:09: 35 06-21 06:08 :35 No 4mg 4 mg, Slow IV Push, Q4HPRN, Starting on Trang 06/20/24 at 0109, Until Mon06/21/24 at 0108, Routine, Pain (scale 7-10) [facility] acetaminoph en (TYLENOL) tablet 650 mg 06-20 06:09: 34 Yes 650mg 650 mg, Oral, Q6HPRN, Starting on Trang 06/20/24 at 0109, Until Discontinu ed, Routine, Pain (scale 1-3) [facility] albuterol (VENTOLIN) inhaler 2 Puff 06-20 06:09: 34 Yes 2{puff} [facility] ondansetron (ZOFRAN (PF)) injection 4 mg 06-20 04:15: 00 06-20 04:12 :00 No 4mg 4 mg, Slow IV Push, ONCE, 1 dose, On Mon06/19/24 at 2315, ENRIQUE [facility] morphine (2 mg/mL) injection 4 mg 06-20 04:15: 00 06-20 04:11 :00 No 4mg 4 mg, Slow IV Push, ONCE, 1 dose, On Mon06/19/24 at 2315, STAT [facility] iopamidol (ISOVUE 370-500 mL) injection 100 mL 06-20 03:25: 00 06-20 03:15 :00 No [id number] 100mL 100 mL, Intravenou s, ONCE, 1 dose, On Mon06/19/24 at 2230, Routine [facility] NaCl 0.9% (NS) bolus infusion 1,000 mL 06-20 03:15: 00 06-20 05:26 :00 No 1000mL at 999 mL/hr, 1,000 mL, IV Infusion, ONCE, 1 dose, On Mon06/19/24 at 2215, [facility] ondansetron (ZOFRAN (PF)) injection 4 mg 06-17 06:00: 00 06-17 06:04 :00 No 4mg 4 mg, Slow IV Push, ONCE, 1 dose, On Mon06/17/24 at 0100, [facility] morpHINE (4 mg/mL) injection 4 mg 06-17 06:00: 00 06-17 06:04 :00 No 4mg 4 mg, Slow IV Push, ONCE, 1 dose, On Mon06/17/24 at 0100, STAT [facility] NaCl 0.9% (NS) bolus infusion 500 mL 06-17 06:00: 00 06-17 07:20 :00 No 500mL at 999 mL/hr, 500 mL, IV Infusion, ONCE, 1 dose, On Mon06/17/24 at 0100, STAT [facility] buspirone 7.5 mg tablet 06-12 00:00: 00 Yes 1mg Hi Bañuelos Prozac 20 mg capsule 06-12 00:00: 00 Yes 1mg Hi Ba[facility]uelos METOPROLOL SUCCINATE XL 25 mg 24 hr tablet 05-08 00:00: 00 Yes [id number] TAKE 1 TABLET BY MOUTH EVERY DAY IN THE MORNING [facility] buspirone 7.5 mg tablet 05-08 00:00: 00 Yes 1mg Hi Bañuelos Prozac 20 mg capsule 05-08 00:00: 00 Yes 1mg Hi Ba[facility]uelos buspirone 7.5 mg tablet 04-10 00:00: 00 Yes 1mg Hi Ba[facility]uelos Prozac 20 mg capsule 04-10 00:00: 00 Yes 1mg Hi Ba[facility]uelos perflutren lipid microsphere s (DEFINITY) injection 2 mL 04-09 19:45: 00 04-09 19:16 :00 No [id number] 2mL 2 mL, IV Push, ONCE, 1 dose, On Mon04/09/24 at 1445, Routine [facility] FLUoxetine 20 mg capsule 04-09 12:22: 08 04-09 00:00 :00 No 20mg Take 1 capsule by mouth in the morning. [facility] escitalopra m oxalate 20 mg tablet 04-09 12:22: 07 Yes 20mg Take 1 tablet by mouth in the morning. [facility] medroxyPROG ESTERone (DEPO-PROVE RA) syringe 150 mg 03-26 14:45: 00 05-20 14:44 :00 No [id number] 150mg 150 mg, Intramuscu lar, [id number], 5 doses, First dose on Mon03/26/24 at 0945, Last dose on Mon02/25/25 at 0945, Routine [facility] buspirone 7.5 mg tablet 03-14 00:00: 00 Yes 1mg Hi Bañuelos Prozac 20 mg capsule 03-14 00:00: 00 Yes 1mg Hi Ba[facility]uelos busPIRone 7.5 mg tablet 03-07 00:00: 00 Yes 7.5mg Take 1 tablet by mouth in the morning and 1 tablet in the evening. [facility] buspirone 7.5 mg tablet 03-07 00:00: 00 Yes 1mg Hi Bañuelos Prozac 20 mg capsule 03-07 00:00: 00 Yes 1mg Hi Ba[facility]uelos lamoTRIgine 100 mg tablet 03-06 00:00: 00 Yes 100mg Take 1 tablet by mouth in the morning and 1 tablet in the evening. [facility] CALCITRIOL 0.25MCG 03-06 00:00: 00 Yes Hi Ba[facility]uelos FLUoxetine 20 mg capsule 19 08:34: 08 04-09 00:00 :00 No 20mg Take 1 capsule by mouth in the morning. [facility] omeprazole 20 mg capsule 3-27 00:00: 00 Yes 20mg Take 1 capsule by mouth in the morning. [facility] buspirone 15 mg tablet 3- 00:00: 00 Yes 1mg Hi Bañuelos Prozac 20 mg capsule 3- 00:00: 00 Yes 1mg Hi Bañuelos SOD BICARB 650MG 3- 00:00: 00 Yes Hi Ba[facility]uelos buspirone 15 mg tablet 2- 00:00: 00 Yes 1mg Hi Bañuelos Prozac 20 mg capsule - 00:00: 00 Yes 1mg Hi Ba[facility]uelos FLUOXETIN(P ) 20MG 00:00: 00 Yes Hi Ba[facility]uelos medroxyPROG ESTERone (DEPO-PROVE RA) syringe 150 mg 01-02 18:00: 00 01-02 17:03 :00 No [id number] 150mg [facility] ESCITALOPRA M 20MG 2-14 00:00: 00 Yes Hi Bañuelos sodium bicarbonate 650 mg tablet 2-13 00:00: 00 04-10 00:00 :00 No [facility] lidocaine (XYLOCAINE) 2 % jelly URO-JET 11 mL 12-19 17:45: 00 12-19 16:50 :00 No [id number] 11mL [facility] water for injection, sterile injection 10 mL 12-19 17:30: 00 12-19 16:34 :00 No [id number] 10mL [facility] clostridium botulinum toxin (BOTOX) injection 100 Units 12-19 17:30: 00 12-19 17:33 :00 No [id number] 100U [facility] NaCl 0.9% (NS) IV Line Priming and Flushing Fluid Only 10 mL 12-19 17:30: 00 12-19 16:50 :00 No [id number] 10mL [facility] lidocaine 2% (XYLOCAINE) 20 mg/mL (2 %) injection 20 mL 12-19 17:15: 00 12-19 16:36 :00 No [id number] 20mL [facility] TAKE 1/2 TABLET TWICE DAILY. 12-14 00:00: 00 03-26 00:00 :00 No 15 Hi Ba[facility]uelos escitalopra m 20 mg tablet 11-30 00:00: 00 Yes mg Hi Ba[facility]uelos buspirone 15 mg tablet 11-30 00:00: 00 Yes mg Hi Bañuelos TAKE 1 CAPSULE EVERY MORNING. 11-30 00:00: 00 03-26 00:00 :00 No 20 Hi Ba[facility]uelos SOD BICARB 650MG 11-29 00:00: 00 Yes Hi Ba[facility]uelos ESCITALOPRA M 10MG 11-23 00:00: 00 Yes Hi Bañuelos TAKE 1 TABLET BY MOUTH TWICE A DAY 11-23 00:00: 00 Yes Hi Bañuelos TAKE 1 CAPSULE BY MOUTH AT BEDTIME FOR 6 DOSES. 3 DAYS PRIOR TO PROCEDURE AND 3 DAYS AFTER 11-14 00:00: 00 Yes Hi Ba[facility]uelos Nitrofurant oin&Nit. Macrocryst (MACROBID) 100 mg capsule 11-14 00:00: 00 11-21 05:59 :00 No [id number] 100mg Take 1 capsule by mouth at bedtime for 6 doses. 3 days prior to procedure and 3 days after [facility] TAKE 1 CAPSULE EVERY MORNING. 2022-11 00:00: 00 03-26 00:00 :00 No 20 Hi Ba[facility]uelos FLUOXETINE 10MG 2022-11 00:00: 00 Yes Hi Bañuelos TAKE 1 CAPSULE BY MOUTH EVERY DAY 2022-11 00:00: 00 Yes Hi Bañuelos TAKE 1 TABLET BY MOUTH TWICE A DAY 2022-11 00:00: 00 Yes Hi Ba[facility]uelos LISINOPRIL 2.5MG 2022-11 00:00: 00 Yes Hi Bañuelos FLUOXETIN(P ) 10MG 2022-11 00:00: 00 Yes Hi Bañuelos TAKE 1 CAPSULE ONCE DAILY. 2022-11 00:00: 00 03-26 00:00 :00 No 10 Hi Bañuelos TAKE 1 TABLET AT BEDTIME. 2022-11 1-07 00:00: 00 03-26 00:00 :00 No 10 Hi Ba[facility]uelos CALCITRIOL 0.25MCG 2022-11 0-30 00:00: 00 Yes Hi Bañuelos FLUOXETINE 10MG 2022-11 0-30 00:00: 00 Yes Hi Bañuelos OMEPRAZOL RX 20MG 9-29 00:00: 00 Yes Hi Bañuelos ONDANSETRON 4MG ODT 9-29 00:00: 00 Yes Hi Ba[facility]uelos ESCITALOPRA M 10MG 9-06 00:00: 00 Yes Hi Ba[facility]uelos LISINOPRIL 2.5MG 8- 00:00: 00 Yes Hi Bañuelos METOPROLOL SUCCINATE XL 25 mg 24 hr tablet 8- 00:00: 00 05-08 00:00 :00 No [id number] TAKE 1 TABLET BY MOUTH EVERY DAY IN THE MORNING [facility] METOPROLOL SUCCINATE XL 25 mg 24 hr tablet 05-31 00:00: 00 Yes [id number] TAKE 1 TABLET BY MOUTH EVERY DAY IN THE MORNING [facility] SOD BICARB 650MG 05-26 00:00: 00 Yes Hi Bañuelos CALCITRIOL 0.25MCG 05-26 00:00: 00 Yes Hi Bañuelos CEPHALEXIN 500MG 05-19 00:00: 00 Yes Hi Bañuelos TAKE 1 CAPSULE BY MOUTH EVERY 8 HOURS FOR 7 DAYS 05-15 00:00: 00 Yes Hi Bañuelos METOPROL SUC 25MG ER - 00:00: 00 Yes iH Bañuelos metoprolol succinate XL 25 mg 24 hr tablet 05-08 00:00: 00 04-09 00:00 :00 No 25mg Take 1 tablet by mouth in the morning. [facility] TAKE 1 TABLET DAILY. 05-08 00:00: 00 03-26 00:00 :00 No 10 Hi Bañuelos TAKE 1 TABLET BY MOUTH EVERY DAY IN THE MORNING 04-12 00:00: 00 Yes Hi Bañuelos metoprolol succinate XL 25 mg 24 hr tablet 04-12 00:00: 00 05-31 00:00 :00 No [id number] 25mg Take 1 tablet by mouth in the morning. [facility] VENTOLIN HFA 200 INH 03-31 00:00: 00 Yes Hi Bañuelos FLUCONAZOLE 150MG 03-31 00:00: 00 Yes Hi Ba[facility]uelos medroxyPROG ESTERone (DEPO-PROVE RA) syringe 150 mg 01-31 19:45: 00 10-10 13:57 :00 No [id number] 150mg 150 mg, Intramuscu lar, [id number], 4 doses, First dose on Mon01/31/23 at 1445, Last dose on Mon10/10/23 at 1445, Routine [facility] FLUOXETINE 10MG - 00:00: 00 Yes [id number] Hi Bañuelos LAMOTRIGINE 100MG - 00:00: 00 Yes [id number] Hi Bañuelos TAKE 1 TABLET BY MOUTH EVERY DAY - 00:00: 00 Yes iH Bañuelos LAMOTRIGINE 100MG - 00:00: 00 Yes [id number] Hi Bañuelos TAKE 1 TABLET BY MOUTH EVERY DAY 11-30 00:00: 00 03-26 00:00 :00 No Hi Bañuelos FLUOXETIN(P ) 20MG - 00:00: 00 Yes [id number] Hi Bañuelos ARIPIPRAZOL E 5MG - 00:00: 00 Yes 5000 Hi Bañuelos TAKE 1 TABLET DAILY. - 00:00: 00 03-26 00:00 :00 No 10 Hi Bañuelos TAKE 1 TABLET DAILY. - 00:00: 00 03-26 00:00 :00 No 5 Hi Bañuelos medroxyPROG ESTERone (DEPO-PROVE RA) syringe 150 mg 2021-11 17:15: 00 11-08 16:20 :00 No [id number] 150mg [facility] FLUOXETINE 10MG 2021-11 00:00: 00 Yes Hi Bañuelos TAKE 1 CAPSULE EVERY MORNING. 2021-11 00:00: 00 03-26 00:00 :00 No 20 Hi Bañuelos TAKE 1 TABLET DAILY. 2021-11 00:00: 00 03-26 00:00 :00 No 5 Hi Bañuelos TAKE 1 TABLET BY MOUTH EVERY DAY 2021-11 00:00: 00 Yes Hi Bañuelos LAMOTRIGINE ODT 100MG ODT 2021-11 00:00: 00 Yes Hi Bañuelos FLUOXETINE HYDROCHLORI DE 10MG 2021-11 00:00: 00 Yes Hi Bañuelos Dose Unknown 2021-11 00:00: 00 Yes Hi Bañuelos TAKE 1 TABLET BY MOUTH ONCE NOW FOR 1 DOSE. 2021-11 00:00: 00 Yes Hi Bañuelos Dose Unknown 2021-11 00:00: 00 Yes Hi Bañuelos INHALE 1 TO 2 PUFFS BY MOUTH EVERY 4 TO 6 HOURS NEEDED 2021-11 00:00: 00 Yes Hi Bañuelos TAKE 1 TABLET BY MOUTH EVERY DAY 2021-11 00:00: 00 Yes Hi Bañuelos Dose Unknown 2021-11 00:00: 00 Yes Hi Bañuelos Dose Unknown 2021-11 00:00: 00 Yes Hi Bañuelos TAKE 1 CAPSULE EVERY MORNING. 2021-11 00:00: 00 03-26 00:00 :00 No Hi Bañuelos FLUOXETINE HYDROCHLORI DE 10MG TAB 2021-11 00:00: 00 03-26 00:00 :00 No Hi Bañuelos ABILIFY 5MG TAB 2021-11 00:00: 00 03-26 00:00 :00 No Hi Bañuelos LAMOTRIGINE 100MG 2021-11 0- 00:00: 00 Yes Hi Bañuelos FLUOXETIN(P ) 10MG 2021-11 0-28 00:00: 00 Yes 10 Hi Bañuelos GEMTESA 75MG 2021-11 0-18 00:00: 00 Yes [id number] Hi Bañuelos fluconazole (DIFLUCAN) 150 mg tablet 08-11 00:00: 00 08-12 04:59 :00 No [id number] 150mg Take 1 tablet by mouth once now for 1 dose. [facility] medroxyPROG ESTERone (DEPO-PROVE RA) syringe 150 mg 08-09 17:30: 00 08-09 16:45 :00 No [id number] 150mg [facility] LAMOTRIGINE 100MG TAB - 00:00: 00 Yes Hi Bañuelos FLUOXETINE HYDROCHLORI DE 10MG 9-09 00:00: 00 Yes [id number] Hi Bañuelos ARIPIPRAZOL E 5MG 9-06 00:00: 00 Yes 5000 Hi Bañuelos TAKE 1 TABLET DAILY. 8-10 00:00: 00 Yes Hi Bañuelos Dose Unknown 8-10 00:00: 00 Yes Hi Bañuelos TAKE 1 TABLET DAILY. 0 7-13 00:00: 00 Yes Hi Bañuelos Dose Unknown 0 7-13 00:00: 00 Yes Hi Bañuelos FLUOXETINE HYDROCHLORI DE 10MG 0 7-13 00:00: 00 Yes [id number] Hi Bañuelos LAMOTRIGINE ODT 100MG ODT 5-11 00:00: 00 Yes [id number] Hi Bañuelos Dose Unknown 0 3-16 00:00: 00 Yes Hi Bañuelos fluconazole 150 mg tablet 0 3-03 00:00: 00 Yes 1mg Hi Bañuelos Dose Unknown 0 3-03 00:00: 00 Yes Hi Bañuelos Dose Unknown 0 3-03 00:00: 00 Yes Hi Bañuelos Dose Unknown 2-17 00:00: 00 Yes Hi Bañuelos Dose Unknown 0 2-17 00:00: 00 Yes Hi Bañuelos medroxyPROG ESTERone 150 mg/mL injection 2020-11-18 11:00: 49 09-30 00:00 :00 No 150mg 150 mg by Intramuscu lar route every 3 (three) months. [facility] Lamotrigine 100 mg TbDL 2020-11 00:00: 00 Yes [id number] 1{tbl} Take 1 tablet by mouth 2 (two) times daily. [facility] medroxyPROG ESTERone (DEPO-PROVE RA) injection 150 mg 2020-11 14:15: 00 05-17 14:26 :00 No [id number] 150mg 150 mg, Intramuscu lar, [id number], 4 doses, First dose on Mon08/30/21 at 0915, Last dose on Mon05/09/22 at 0915, Routine [facility] albuterol (PROAIR HFA) 90 mcg/actuati on inhaler 2020-11 00:00: 00 Yes [id number] INHALE 1 TO 2 PUFFS BY MOUTH EVERY 4 TO 6 HOURS NEEDED [facility] pantoprazol e 40 mg EC tablet 07-29 00:00: 00 09-30 00:00 :00 No [id number] 40mg Take 1 tablet by mouth daily. [facility] benzocaine- menthoL (CEPACOL INSTAMAX SORE THROAT) 15-20 mg Lozg -13 00:00: 00 09-30 00:00 :00 No [id number] 1{lozen ge} Apply 1 Lozenge as directed every 6 (six) hours as needed for Other (Sore throat). [facility] Lamotrigine 100 mg TbDL 03-29 11:16: 59 03-29 00:00 :00 No Take by mouth 2 (two) times daily. [facility] busPIRone 15 mg tablet 03-29 00:00: 00 09-30 00:00 :00 No [id number] 7.5mg Take 0.5-1 tablets by mouth 2 (two) times daily. [facility] escitalopra m oxalate 20 mg tablet 03-29 00:00: 00 09-30 00:00 :00 No [id number] 20mg Take 1 tablet by mouth in the morning. [facility] Lamotrigine 100 mg TbDL 03-29 00:00: 00 09-06 00:00 :00 No [id number] 1{tbl} Take 1 tablet by mouth 2 (two) times daily. [facility] ondansetron 4 mg disintegrat ing tablet 329 00:00: 00 09-30 00:00 :00 No [id number] 4mg Take 1 tablet by mouth every 8 (eight) hours as needed for Nausea and Vomiting (N/V). [facility] pyridoxine, VITAMIN B-6, 50 mg tablet 12-09 00:00: 00 09-30 00:00 :00 No [id number] 50mg Take 1 tablet by mouth daily. [facility] Cholecalcif fredy, Vitamin D3, (D3-2000) 50 mcg (2,000 unit) capsule 12-09 00:00: 00 09-30 00:00 :00 No [id number] 2000U Take 1 capsule by mouth daily. Take with food. [facility] pramipexole (MIRAPEX) 0.125 mg tablet 12-04 00:00: 00 09-30 00:00 :00 No [id number] .125mg Take 1 tablet by mouth at bedtime. [facility] busPIRone 15 mg tablet 12-04 00:00: 00 03-29 00:00 :00 No [id number] 7.5mg Take 0.5-1 tablets by mouth 2 (two) times daily. [facility] escitalopra m oxalate 20 mg tablet 2019-11 2-14 00:00: 00 03-29 00:00 :00 No [facility] Xulane 150-35 MCG/24HR Xulane 150-35 MCG/24HR 2019-11 0 00:00: 00 No Xulane 150-35 MCG/24HR Xulane 150-35 MCG/24HR Xulane 150-35 MCG/24HR 2019-11 020 00:00: 00 No Xulane 150-35 MCG/24HR Xulane 150-35 MCG/24HR Xulane 150-35 MCG/24HR 2019-11 020 00:00: 00 No Xulane 150-35 MCG/24HR Benzonatate [...] 4 TO 6 HOURS NEEDED FOR COUGH [facility] Magnesium Oxide Magnesium Oxide 07-23 00:00: 08-22 00:00 :00 No Na Bates 1 tablet as needed for leg cramps [facility] Magnesium Oxide 400 MG Magnesium Oxide 400 MG 07-23 00:00: 08-22 00:00 :00 No QD Magnesium Oxide 400 MG Everolimus (AFINITOR) 10 mg tablet 09 00:00: 00 01-22 00:00 :00 No [id number] 10mg Take 1 tablet by mouth daily. [facility] Clonazepam Clonazepam 2018-11 00:00: 00 Yes Na Bates 1 tablet on the tongue and allow to dissolve as needed for acute panic attacks [facility] Clonazepam 0.5 MG Clonazepam 0.5 MG 2018-11 00:00: 00 No QD Clonazepam 0.5 MG Clonazepam 0.5 MG Clonazepam 0.5 MG 2019-1 2-16 00:00: 00 No QD Clonazepam 0.5 MG Afinitor 5 MG Oral Tablet Afinitor 5 MG Oral Tablet 07-04 14:39: 34 Yes ALFREDO EUGENE M.D. TAKE 1 TABLET BY MOUTH DAILY [facility] lamoTRIgine 100 MG Oral Tablet lamoTRIgine 100 MG Oral Tablet 2014-11 0 00:00: 00 Yes ALONZO GONZALES M.D. Q0.5D TAKE 1 TABLET TWICE DAILY [facility] Gian[facility] Gianvi Yes Na Bates 1 tablet [facility] Cetirizine HCl Cetirizine HCl Yes Na Bates take 1 tablet by mouth every day as needed for allergies [facility] Lamictal Lamictal Yes Na Bates 1 tablet [facility] Ondansetron HCl Ondansetron HCl Yes Na Bates as directed [facility] Lexapro Lexapro Yes Na Bates 1 tablet [facility] Quetiapine Fumarate Quetiapine Fumarate Yes Na Bates TAKE 1 TABLET BY MOUTH AT BEDTIME [facility] Afinitor Afinitor Yes Na Bates 1 tablet [facility] Pantoprazol e Sodium Pantoprazol e Sodium Yes Na Bates 1 tablet [facility] Afinitor 5 MG Afinitor 5 MG No 1{table t} QD Afinitor 5 MG Magnesium Oxide 400 MG Magnesium Oxide [...] Filled Immunization Name Date Status Comments Source Flu Injectable MDCK Pres-Free (FLUCELVAX) 2024-09-12 00:00:00 Completed [facility] Influenza Virus Vaccine Quad IM, Preserv and ABX Free 6 MO-64 YRS (FLUCELVAX) 2023-10-17 00:00:00 Completed [facility] Influenza Virus Vaccine Quad IM, Preserv and ABX Free 6 MO-64 YRS (FLUCELVAX) 2023-10-17 00:00:00 Completed [facility] Influenza Virus Vaccine Quad IM, Preserv and ABX Free 6 MO-64 YRS (FLUCELVAX) 2023-10-17 00:00:00 [facility]pleted [facility] [facility] HPV9 2023-09-06 00:00:00 Completed [facility] HPV9 2023-09-06 00:00:00 Completed [facility] HPV9 2023-09-06 00:00:00 Completed [facility] HPV9 2023-04-25 00:00:00 Completed [facility] HPV9 2023-04-25 00:00:00 Completed [facility] HPV9 2023-04-25 00:00:00 Completed [facility] HPV9 2023-04-25 00:00:00 Completed [facility] HPV9 2023-04-25 00:00:00 Completed [facility] HPV9 2023-04-25 00:00:00 Completed [facility] HPV9 2023-04-25 00:00:00 Completed HPV9 2023-04-25 00:00:00 Completed HPV9 2023-04-25 00:00:00 Completed Influenza Virus Vaccine Quad IM, Preserv and ABX Free 6 MO-64 YRS 2023-01-31 00:00:00 Completed [facility] HPV9 2023-01-31 00:00:00 Completed [facility] Influenza Virus Vaccine Quad IM, Preserv and ABX Free 6 MO-64 YRS 2023-01-31 00:00:00 Completed [facility] HPV9 2023-01-31 00:00:00 Completed [facility] Influenza Virus Vaccine Quad IM, Preserv and ABX Free 6 MO-64 YRS 2023-01-31 00:00:00 Completed [facility] HPV9 2023-01-31 00:00:00 Completed [facility] Influenza Virus Vaccine Quad IM, Preserv and ABX Free 6 MO-64 YRS 2023-01-31 00:00:00 Completed [facility] HPV9 2023-01-31 00:00:00 Completed [facility] Influenza Virus Vaccine Quad IM, Preserv and ABX Free 6 MO-64 YRS 2023-01-31 00:00:00 Completed [facility] HPV9 2023-01-31 00:00:00 Completed [facility] Influenza Virus Vaccine Quad IM, Preserv and ABX Free 6 MO-64 YRS 2023-01-31 00:00:00 Completed [facility] HPV9 2023-01-31 00:00:00 Completed [facility] Influenza Virus Vaccine Quad IM, Preserv and ABX Free 6 MO-64 YRS 2023-01-31 00:00:00 Completed [facility] HPV9 2023-01-31 00:00:00 Completed [facility] Influenza Virus Vaccine Quad IM, Preserv and ABX Free 6 MO-64 YRS 2023-01-31 00:00:00 Completed [facility] HPV9 2023-01-31 00:00:00 Completed [facility] Influenza Virus Vaccine Quad IM, Preserv and ABX Free 6 MO-64 YRS 2023-01-31 00:00:00 Completed [facility] HPV9 2023-01-31 00:00:00 Completed [facility] Influenza Virus Vaccine Quad IM, Preserv and ABX Free 6 MO-64 YRS 2023-01-31 00:00:00 Completed [facility] HPV9 2023-01-31 00:00:00 Completed [facility] Influenza Virus Vaccine Quad IM, Preserv and ABX Free 6 MO-64 YRS 2023-01-31 00:00:00 Completed [facility] HPV9 2023-01-31 00:00:00 Completed [facility] Influenza Virus Vaccine Quad IM, Preserv and ABX Free 6 MO-64 YRS 2023-01-31 00:00:00 Completed [facility] HPV9 2023-01-31 00:00:00 Completed [facility] Influenza Virus Vaccine Quad IM, Preserv and ABX Free 6 MO-64 YRS 2023-01-31 00:00:00 Completed [facility] HPV9 2023-01-31 00:00:00 Completed [facility] Influenza Virus Vaccine Quad IM, Preserv and ABX Free 6 MO-64 YRS (FLUCELVAX) 2023-01-31 00:00:00 Completed [facility] HPV9 2023-01-31 00:00:00 Completed [facility] Influenza Virus Vaccine Quad IM, Preserv and ABX Free 6 MO-64 YRS (FLUCELVAX) 2023-01-31 00:00:00 Completed [facility] HPV9 2023-01-31 00:00:00 Completed [facility] Influenza Virus Vaccine Quad IM, Preserv and ABX Free 6 MO-64 YRS (FLUCELVAX) 2023-01-31 00:00:00 Completed [facility] HPV9 2023-01-31 00:00:00 Completed [facility] HPV9 2023-01-31 00:00:00 Completed [facility] Influenza Virus Vaccine Quad IM, Preserv and ABX Free 6 MO-64 YRS (FLUCELVAX) 2023-01-31 00:00:00 Completed HPV9 2023-01-31 00:00:00 Completed Influenza Virus Vaccine Quad IM, Preserv and ABX Free 6 MO-64 YRS (FLUCELVAX) 2023-01-31 00:00:00 Completed HPV9 2023-01-31 00:00:00 Completed Influenza Virus Vaccine Quad IM, Preserv and ABX Free 6 MO-64 YRS (FLUCELVAX) 2023-01-31 00:00:00 Completed [facility] Tdap 2022-10-25 00:00:00 Completed [facility] influenza, seasonal vaccine, quadrivalent, adjuvanted, .5mL dose, preservative-free influenza, seasonal vaccine, quadrivalent, adjuvanted, .5mL dose, preservative-free 2022-10-10 00:00:00 Completed [facility] SARS-COV-2 COVID-19 PFIZER VACCINE 2021-11-17 00:00:00 Completed [facility] SARS-COV-2 COVID-19 PFIZER VACCINE 2021-11-17 00:00:00 Completed [facility] SARS-COV-2 COVID-19 PFIZER VACCINE 2021-11-17 00:00:00 Completed [facility] SARS-COV-2 COVID-19 PFIZER VACCINE 2021-11-17 00:00:00 Completed [facility] SARS-COV-2 COVID-19 PFIZER VACCINE 2021-11-17 00:00:00 Completed [facility] SARS-COV-2 COVID-19 PFIZER VACCINE 2021-11-17 00:00:00 Completed [facility] SARS-COV-2 COVID-19 PFIZER VACCINE 2021-11-17 00:00:00 Completed [facility] SARS-COV-2 COVID-19 PFIZER VACCINE 2021-11-17 00:00:00 Completed [facility] SARS-COV-2 COVID-19 PFIZER VACCINE 2021-11-17 00:00:00 Completed [facility] SARS-COV-2 COVID-19 PFIZER VACCINE 2021-11-17 00:00:00 Completed [facility] SARS-COV-2 COVID-19 PFIZER VACCINE 2021-11-17 00:00:00 Completed [facility] SARS-COV-2 COVID-19 PFIZER VACCINE 2021-11-17 00:00:00 Completed [facility] SARS-COV-2 COVID-19 PFIZER VACCINE 2021-11-17 00:00:00 Completed [facility] SARS-COV-2 COVID-19 PFIZER VACCINE 2021-11-17 00:00:00 Completed [facility] SARS-COV-2 COVID-19 PFIZER VACCINE 2021-11-17 00:00:00 Completed [facility] SARS-COV-2 COVID-19 PFIZER VACCINE 2021-11-17 00:00:00 Completed [facility] SARS-COV-2 COVID-19 PFIZER VACCINE 2021-11-17 00:00:00 Completed SARS-COV-2 COVID-19 PFIZER VACCINE 2021-11-17 00:00:00 Completed SARS-COV-2 COVID-19 PFIZER VACCINE 2021-11-17 00:00:00 Completed Influenza Virus Vaccine Quad IM, Preserv and ABX Free 6 MO-64 YRS 2021-08-30 00:00:00 Completed [facility] Influenza Virus Vaccine Quad IM, Preserv and ABX Free 6 MO-64 YRS 2021-08-30 00:00:00 Completed [facility] Influenza Virus Vaccine Quad IM, Preserv and ABX Free 6 MO-64 YRS 2021-08-30 00:00:00 Completed [facility] Influenza Virus Vaccine Quad IM, Preserv and ABX Free 6 MO-64 YRS 2021-08-30 00:00:00 Completed [facility] Influenza Virus Vaccine Quad IM, Preserv and ABX Free 6 MO-64 YRS 2021-08-30 00:00:00 Completed [facility] Influenza Virus Vaccine Quad IM, Preserv and ABX Free 6 MO-64 YRS 2021-08-30 00:00:00 Completed [facility] Influenza Virus Vaccine Quad IM, Preserv and ABX Free 6 MO-64 YRS 2021-08-30 00:00:00 Completed [facility] Influenza Virus Vaccine Quad IM, Preserv and ABX Free 6 MO-64 YRS 2021-08-30 00:00:00 Completed [facility] Influenza Virus Vaccine Quad IM, Preserv and ABX Free 6 MO-64 YRS 2021-08-30 00:00:00 Completed [facility] Influenza Virus Vaccine Quad IM, Preserv and ABX Free 6 MO-64 YRS 2021-08-30 00:00:00 Completed [facility] Influenza Virus Vaccine Quad IM, Preserv and ABX Free 6 MO-64 YRS 2021-08-30 00:00:00 Completed [facility] Influenza Virus Vaccine Quad IM, Preserv and ABX Free 6 MO-64 YRS 2021-08-30 00:00:00 Completed [facility] Influenza Virus Vaccine Quad IM, Preserv and ABX Free 6 MO-64 YRS 2021-08-30 00:00:00 Completed [facility] Influenza Virus Vaccine Quad IM, Preserv and ABX Free 6 MO-64 YRS 2021-08-30 00:00:00 Completed [facility] Influenza Virus Vaccine Quad IM, Preserv and ABX Free 6 MO-64 YRS 2021-08-30 00:00:00 Completed [facility] Influenza Virus Vaccine Quad IM, Preserv and ABX Free 6 MO-64 YRS 2021-08-30 00:00:00 Completed [facility] Influenza Virus Vaccine Quad IM, Preserv and ABX Free 6 MO-64 YRS 2021-08-30 00:00:00 Completed [facility] Influenza Virus Vaccine Quad IM, Preserv and ABX Free 6 MO-64 YRS 2021-08-30 00:00:00 Completed [facility] Influenza Virus Vaccine Quad IM, Preserv and ABX Free 6 MO-64 YRS 2021-08-30 00:00:00 Completed [facility] Influenza Virus Vaccine Quad IM, Preserv and ABX Free 6 MO-64 YRS 2021-08-30 00:00:00 Completed [facility] Influenza Virus Vaccine Quad IM, Preserv and ABX Free 6 MO-64 YRS 2021-08-30 00:00:00 Completed [facility] Influenza Virus Vaccine Quad IM, Preserv and ABX Free 6 MO-64 YRS 2021-08-30 00:00:00 Completed [facility] Influenza Virus Vaccine Quad IM, Preserv and ABX Free 6 MO-64 YRS 2021-08-30 00:00:00 Completed [facility] Influenza Virus Vaccine Quad IM, Preserv and ABX Free 6 MO-64 YRS 2021-08-30 00:00:00 Completed [facility] Influenza Virus Vaccine Quad IM, Preserv and ABX Free 6 MO-64 YRS 2021-08-30 00:00:00 Completed [facility] Influenza Virus Vaccine Quad IM, Preserv and ABX Free 6 MO-64 YRS 2021-08-30 00:00:00 Completed [facility] Influenza Virus Vaccine Quad IM, Preserv and ABX Free 6 MO-64 YRS 2021-08-30 00:00:00 Completed [facility] Influenza Virus Vaccine Quad IM, Preserv and ABX Free 6 MO-64 YRS (FLUCELVAX) 2021-08-30 00:00:00 Completed [facility] Influenza Virus Vaccine Quad IM, Preserv and ABX Free 6 MO-64 YRS (FLUCELVAX) 2021-08-30 00:00:00 Completed [facility] Influenza Virus Vaccine Quad IM, Preserv and ABX Free 6 MO-64 YRS (FLUCELVAX) 2021-08-30 00:00:00 Completed [facility] Influenza Virus Vaccine Quad IM, Preserv and ABX Free 6 MO-64 YRS (FLUCELVAX) 2021-08-30 00:00:00 Completed [facility] Influenza Virus Vaccine Quad IM, Preserv and ABX Free 6 MO-64 YRS (FLUCELVAX) 2021-08-30 00:00:00 Completed [facility] Influenza Virus Vaccine Quad IM, Preserv and ABX Free 6 MO-64 YRS (FLUCELVAX) 2021-08-30 00:00:00 Completed [facility] SARS-COV-2 COVID-19 PFIZER VACCINE 2021-02-23 00:00:00 Completed [facility] SARS-COV-2 COVID-19 PFIZER VACCINE 2021-02-23 00:00:00 Completed [facility] SARS-COV-2 COVID-19 PFIZER VACCINE 2021-02-23 00:00:00 Completed [facility] SARS-COV-2 COVID-19 PFIZER VACCINE 2021-02-23 00:00:00 Completed [facility] SARS-COV-2 COVID-19 PFIZER VACCINE 2021-02-23 00:00:00 Completed [facility] SARS-COV-2 COVID-19 PFIZER VACCINE 2021-02-23 00:00:00 Completed [facility] SARS-COV-2 COVID-19 PFIZER VACCINE 2021-02-23 00:00:00 Completed [facility] SARS-COV-2 COVID-19 PFIZER VACCINE 2021-02-23 00:00:00 Completed [facility] SARS-COV-2 COVID-19 PFIZER VACCINE 2021-02-23 00:00:00 Completed [facility] SARS-COV-2 COVID-19 PFIZER VACCINE 2021-02-23 00:00:00 Completed [facility] SARS-COV-2 COVID-19 PFIZER VACCINE 2021-02-23 00:00:00 Completed [facility] SARS-COV-2 COVID-19 PFIZER VACCINE 2021-02-23 00:00:00 Completed [facility] SARS-COV-2 COVID-19 PFIZER VACCINE 2021-02-23 00:00:00 Completed [facility] SARS-COV-2 COVID-19 PFIZER VACCINE 2021-02-23 00:00:00 Completed [facility] SARS-COV-2 COVID-19 PFIZER VACCINE 2021-02-23 00:00:00 Completed [facility] SARS-COV-2 COVID-19 PFIZER VACCINE 2021-02-23 00:00:00 Completed [facility] SARS-COV-2 COVID-19 PFIZER VACCINE 2021-02-23 00:00:00 Completed [facility] SARS-COV-2 COVID-19 PFIZER VACCINE 2021-02-23 00:00:00 Completed [facility] SARS-COV-2 COVID-19 PFIZER VACCINE 2021-02-23 00:00:00 Completed [facility] SARS-COV-2 COVID-19 PFIZER VACCINE 2021-02-23 00:00:00 Completed [facility] SARS-COV-2 COVID-19 PFIZER VACCINE 2021-02-23 00:00:00 Completed [facility] SARS-COV-2 COVID-19 PFIZER VACCINE 2021-02-23 00:00:00 Completed [facility] SARS-COV-2 COVID-19 PFIZER VACCINE 2021-02-23 00:00:00 Completed [facility] SARS-COV-2 COVID-19 PFIZER VACCINE 2021-02-23 00:00:00 Completed [facility] SARS-COV-2 COVID-19 PFIZER VACCINE 2021-02-23 00:00:00 Completed [facility] SARS-COV-2 COVID-19 PFIZER VACCINE 2021-02-23 00:00:00 Completed [facility] SARS-COV-2 COVID-19 PFIZER VACCINE 2021-02-23 00:00:00 Completed [facility] SARS-COV-2 COVID-19 PFIZER VACCINE 2021-02-23 00:00:00 Completed [facility] SARS-COV-2 COVID-19 PFIZER VACCINE 2021-02-23 00:00:00 Completed [facility] SARS-COV-2 COVID-19 PFIZER VACCINE 2021-02-23 00:00:00 Completed [facility] SARS-COV-2 COVID-19 PFIZER VACCINE 2021-02-23 00:00:00 Completed [facility] SARS-COV-2 COVID-19 PFIZER VACCINE 2021-02-23 00:00:00 Completed [facility] SARS-COV-2 COVID-19 PFIZER VACCINE 2021-02-23 00:00:00 Completed SARS-COV-2 COVID-19 PFIZER VACCINE 2021-02-23 00:00:00 Completed SARS-COV-2 COVID-19 PFIZER VACCINE 2021-02-23 00:00:00 Completed SARS-COV-2 COVID-19 PFIZER VACCINE 2021-02-02 00:00:00 Completed [facility] SARS-COV-2 COVID-19 PFIZER VACCINE 2021-02-02 00:00:00 Completed [facility] SARS-COV-2 COVID-19 PFIZER VACCINE 2021-02-02 00:00:00 Completed [facility] SARS-COV-2 COVID-19 PFIZER VACCINE 2021-02-02 00:00:00 Completed [facility] SARS-COV-2 COVID-19 PFIZER VACCINE 2021-02-02 00:00:00 Completed [facility] SARS-COV-2 COVID-19 PFIZER VACCINE 2021-02-02 00:00:00 Completed [facility] SARS-COV-2 COVID-19 PFIZER VACCINE 2021-02-02 00:00:00 Completed [facility] SARS-COV-2 COVID-19 PFIZER VACCINE 2021-02-02 00:00:00 Completed [facility] SARS-COV-2 COVID-19 PFIZER VACCINE 2021-02-02 00:00:00 Completed [facility] SARS-COV-2 COVID-19 PFIZER VACCINE 2021-02-02 00:00:00 Completed [facility] SARS-COV-2 COVID-19 PFIZER VACCINE 2021-02-02 00:00:00 Completed [facility] SARS-COV-2 COVID-19 PFIZER VACCINE 2021-02-02 00:00:00 Completed [facility] SARS-COV-2 COVID-19 PFIZER VACCINE 2021-02-02 00:00:00 Completed [facility] SARS-COV-2 COVID-19 PFIZER VACCINE 2021-02-02 00:00:00 Completed [facility] SARS-COV-2 COVID-19 PFIZER VACCINE 2021-02-02 00:00:00 Completed [facility] SARS-COV-2 COVID-19 PFIZER VACCINE 2021-02-02 00:00:00 Completed [facility] SARS-COV-2 COVID-19 PFIZER VACCINE 2021-02-02 00:00:00 Completed [facility] SARS-COV-2 COVID-19 PFIZER VACCINE 2021-02-02 00:00:00 Completed [facility] SARS-COV-2 COVID-19 PFIZER VACCINE 2021-02-02 00:00:00 Completed [facility] SARS-COV-2 COVID-19 PFIZER VACCINE 2021-02-02 00:00:00 Completed [facility] SARS-COV-2 COVID-19 PFIZER VACCINE 2021-02-02 00:00:00 Completed [facility] SARS-COV-2 COVID-19 PFIZER VACCINE 2021-02-02 00:00:00 Completed [facility] SARS-COV-2 COVID-19 PFIZER VACCINE 2021-02-02 00:00:00 Completed [facility] SARS-COV-2 COVID-19 PFIZER VACCINE 2021-02-02 00:00:00 Completed [facility] SARS-COV-2 COVID-19 PFIZER VACCINE 2021-02-02 00:00:00 Completed [facility] SARS-COV-2 COVID-19 PFIZER VACCINE 2021-02-02 00:00:00 Completed [facility] SARS-COV-2 COVID-19 PFIZER VACCINE 2021-02-02 00:00:00 Completed [facility] SARS-COV-2 COVID-19 PFIZER VACCINE 2021-02-02 00:00:00 Completed [facility] SARS-COV-2 COVID-19 PFIZER VACCINE 2021-02-02 00:00:00 Completed [facility] SARS-COV-2 COVID-19 PFIZER VACCINE 2021-02-02 00:00:00 Completed [facility] SARS-COV-2 COVID-19 PFIZER VACCINE 2021-02-02 00:00:00 Completed [facility] SARS-COV-2 COVID-19 PFIZER VACCINE 2021-02-02 00:00:00 Completed [facility] SARS-COV-2 COVID-19 PFIZER VACCINE 2021-02-02 00:00:00 Completed [facility] SARS-COV-2 COVID-19 PFIZER VACCINE 2021-02-02 00:00:00 Completed [facility] SARS-COV-2 COVID-19 PFIZER VACCINE 2021-02-02 00:00:00 Completed [facility] Influenza Virus Vaccine Quad .5 mL IM 6+ MO 2020-08-27 00:00:00 Completed [facility] Influenza Virus Vaccine Quad .5 mL IM 6+ MO 2020-08-27 00:00:00 Completed [facility] Influenza Virus Vaccine Quad .5 mL IM 6+ MO 2020-08-27 00:00:00 Completed [facility] Influenza Virus Vaccine Quad .5 mL IM 6+ MO 2020-08-27 00:00:00 Completed [facility] Influenza Virus Vaccine Quad .5 mL IM 6+ MO 2020-08-27 00:00:00 Completed [facility] Influenza Virus Vaccine Quad .5 mL IM 6+ MO 2020-08-27 00:00:00 Completed [facility] Influenza Virus Vaccine Quad .5 mL IM 6+ MO 2020-08-27 00:00:00 Completed [facility] Influenza Virus Vaccine Quad .5 mL IM 6+ MO 2020-08-27 00:00:00 Completed [facility] Influenza Virus Vaccine Quad .5 mL IM 6+ MO 2020-08-27 00:00:00 Completed [facility] Influenza Virus Vaccine Quad .5 mL IM 6+ MO 2020-08-27 00:00:00 Completed [facility] Influenza Virus Vaccine Quad .5 mL IM 6+ MO 2020-08-27 00:00:00 Completed [facility] Influenza Virus Vaccine Quad .5 mL IM 6+ MO 2020-08-27 00:00:00 Completed [facility] Influenza Virus Vaccine Quad .5 mL IM 6+ MO 2020-08-27 00:00:00 Completed [facility] Influenza Virus Vaccine Quad .5 mL IM 6+ MO 2020-08-27 00:00:00 Completed [facility] Influenza Virus Vaccine Quad .5 mL IM 6+ MO 2020-08-27 00:00:00 Completed [facility] Influenza Virus Vaccine Quad .5 mL IM 6+ MO 2020-08-27 00:00:00 Completed [facility] Influenza Virus Vaccine Quad .5 mL IM 6+ MO 2020-08-27 00:00:00 Completed [facility] Influenza Virus Vaccine Quad .5 mL IM 6+ MO 2020-08-27 00:00:00 Completed [facility] Influenza Virus Vaccine Quad .5 mL IM 6+ MO 2020-08-27 00:00:00 Completed [facility] Influenza Virus Vaccine Quad .5 mL IM 6+ MO 2020-08-27 00:00:00 Completed [facility] Influenza Virus Vaccine Quad .5 mL IM 6+ MO 2020-08-27 00:00:00 Completed [facility] Influenza Virus Vaccine Quad .5 mL IM 6+ MO 2020-08-27 00:00:00 Completed [facility] Influenza Virus Vaccine Quad .5 mL IM 6+ MO 2020-08-27 00:00:00 Completed [facility] Influenza Virus Vaccine Quad .5 mL IM 6+ MO 2020-08-27 00:00:00 Completed [facility] Influenza Virus Vaccine Quad .5 mL IM 6+ MO 2020-08-27 00:00:00 Completed [facility] Influenza Virus Vaccine Quad .5 mL IM 6+ MO 2020-08-27 00:00:00 Completed [facility] Influenza Virus Vaccine Quad .5 mL IM 6+ MO 2020-08-27 00:00:00 Completed [facility] [place] Influenza Virus Vaccine Quad .5 mL IM 6+ MO 2020-08-27 00:00:00 Completed [facility] Influenza Virus Vaccine Quad .5 mL IM 6+ MO 2020-08-27 00:00:00 Completed [facility] Influenza Virus Vaccine Quad .5 mL IM 6+ MO (FLUZONE/FLULAVAL/F LUARIX) 2020-08-27 00:00:00 Completed [facility] Influenza Virus Vaccine Quad .5 mL IM 6+ MO (FLUZONE/FLULAVAL/F LUARIX) 2020-08-27 00:00:00 Completed [facility] Influenza Virus Vaccine Quad .5 mL IM 6+ MO (FLUZONE/FLULAVAL/F LUARIX) 2020-08-27 00:00:00 Completed [facility] Influenza Virus Vaccine Quad .5 mL IM 6+ MO (FLUZONE/FLULAVAL/F LUARIX) 2020-08-27 00:00:00 Completed [facility] Influenza Virus Vaccine Quad .5 mL IM 6+ MO (FLUZONE/FLULAVAL/F LUARIX) 2020-08-27 00:00:00 Completed [facility] Influenza Virus Vaccine Quad .5 mL IM 6+ MO (FLUZONE/FLULAVAL/F LUARIX) 2020-08-27 00:00:00 Completed [facility] Influenza Virus Vaccine Quad .5 mL IM 6+ MO 2019-10-01 00:00:00 Completed [facility] Influenza Virus Vaccine Quad .5 mL IM 6+ MO 2019-10-01 00:00:00 Completed [facility] Influenza Virus Vaccine Quad .5 mL IM 6+ MO 2019-10-01 00:00:00 Completed [facility] Influenza Virus Vaccine Quad .5 mL IM 6+ MO 2019-10-01 00:00:00 Completed [facility] Influenza Virus Vaccine Quad .5 mL IM 6+ MO 2019-10-01 00:00:00 Completed [facility] Influenza Virus Vaccine Quad .5 mL IM 6+ MO 2019-10-01 00:00:00 Completed [facility] Influenza Virus Vaccine Quad .5 mL IM 6+ MO 2019-10-01 00:00:00 Completed [facility] Influenza Virus Vaccine Quad .5 mL IM 6+ MO 2019-10-01 00:00:00 Completed [facility] Influenza Virus Vaccine Quad .5 mL IM 6+ MO 2019-10-01 00:00:00 Completed [facility] Influenza Virus Vaccine Quad .5 mL IM 6+ MO 2019-10-01 00:00:00 Completed [facility] Influenza Virus Vaccine Quad .5 mL IM 6+ MO 2019-10-01 00:00:00 Completed [facility] Influenza Virus Vaccine Quad .5 mL IM 6+ MO 2019-10-01 00:00:00 Completed [facility] Influenza Virus Vaccine Quad .5 mL IM 6+ MO 2019-10-01 00:00:00 Completed [facility] [place] Influenza Virus Vaccine Quad .5 mL IM 6+ MO 2019-10-01 00:00:00 Completed [facility] Influenza Virus Vaccine Quad .5 mL IM 6+ MO 2019-10-01 00:00:00 Completed [facility] Influenza Virus Vaccine Quad .5 mL IM 6+ MO 2019-10-01 00:00:00 Completed [facility] Influenza Virus Vaccine Quad .5 mL IM 6+ MO 2019-10-01 00:00:00 Completed [facility] Influenza Virus Vaccine Quad .5 mL IM 6+ MO 2019-10-01 00:00:00 Completed [facility] Influenza Virus Vaccine Quad .5 mL IM 6+ MO 2019-10-01 00:00:00 Completed [facility] Influenza Virus Vaccine Quad .5 mL IM 6+ MO 2019-10-01 00:00:00 Completed [facility] Influenza Virus Vaccine Quad .5 mL IM 6+ MO 2019-10-01 00:00:00 Completed [facility] Influenza Virus Vaccine Quad .5 mL IM 6+ MO 2019-10-01 00:00:00 Completed [facility] Influenza Virus Vaccine Quad .5 mL IM 6+ MO 2019-10-01 00:00:00 Completed [facility] Influenza Virus Vaccine Quad .5 mL IM 6+ MO 2019-10-01 00:00:00 Completed [facility] Influenza Virus Vaccine Quad .5 mL IM 6+ MO 2019-10-01 00:00:00 Completed [facility] Influenza Virus Vaccine Quad .5 mL IM 6+ MO 2019-10-01 00:00:00 Completed [facility] Influenza Virus Vaccine Quad .5 mL IM 6+ MO 2019-10-01 00:00:00 Completed [facility] Influenza Virus Vaccine Quad .5 mL IM 6+ MO 2019-10-01 00:00:00 Completed [facility] Influenza Virus Vaccine Quad .5 mL IM 6+ MO 2019-10-01 00:00:00 Completed [facility] Influenza Virus Vaccine Quad .5 mL IM 6+ MO (FLUZONE/FLULAVAL/F LUARIX) 2019-10-01 00:00:00 Completed [facility] Influenza Virus Vaccine Quad .5 mL IM 6+ MO (FLUZONE/FLULAVAL/F LUARIX) 2019-10-01 00:00:00 Completed [facility] Influenza Virus Vaccine Quad .5 mL IM 6+ MO (FLUZONE/FLULAVAL/F LUARIX) 2019-10-01 00:00:00 Completed [facility] Influenza Virus Vaccine Quad .5 mL IM 6+ MO (FLUZONE/FLULAVAL/F LUARIX) 2019-10-01 00:00:00 Completed [facility] Influenza Virus Vaccine Quad .5 mL IM 6+ MO (FLUZONE/FLULAVAL/F LUARIX) 2019-10-01 00:00:00 Completed [facility] Influenza Virus Vaccine Quad .5 mL IM 6+ MO (FLUZONE/FLULAVAL/F LUARIX) 2019-10-01 00:00:00 Completed [facility] Afluria single dose Afluria single dose 2019-08-05 16:46:00 Completed [facility] Afluria single dose Afluria single dose 2019-08-05 16:46:00 Completed [facility] Influenza Virus Vaccine Quad IM 3+ YRS 2019-08-05 00:00:00 [facility]pleted [facility] [facility] Influenza Virus Vaccine Quad IM 3+ YRS 2019-08-05 00:00:00 Completed [facility] Influenza Virus Vaccine Quad IM 3+ YRS 2019-08-05 00:00:00 Completed [facility] Influenza Virus Vaccine Quad IM 3+ YRS 2019-08-05 00:00:00 Completed [facility] Influenza Virus Vaccine Quad IM 3+ YRS 2019-08-05 00:00:00 Completed [facility] Influenza Virus Vaccine Quad IM 3+ YRS 2019-08-05 00:00:00 Completed [facility] Influenza Virus Vaccine Quad IM 3+ YRS 2019-08-05 00:00:00 Completed [facility] Influenza Virus Vaccine Quad IM 3+ YRS 2019-08-05 00:00:00 Completed [facility] Influenza Virus Vaccine Quad IM 3+ YRS 2019-08-05 00:00:00 Completed [facility] Influenza Virus Vaccine Quad IM 3+ YRS 2019-08-05 00:00:00 Completed [facility] Influenza Virus Vaccine Quad IM 3+ YRS 2019-08-05 00:00:00 Completed [facility] Influenza Virus Vaccine Quad IM 3+ YRS 2019-08-05 00:00:00 Completed [facility] Influenza Virus Vaccine Quad IM 3+ YRS 2019-08-05 00:00:00 Completed [facility] Influenza Virus Vaccine Quad IM 3+ YRS 2019-08-05 00:00:00 Completed [facility] Influenza Virus Vaccine Quad IM 3+ YRS 2019-08-05 00:00:00 Completed [facility] Influenza Virus Vaccine Quad IM 3+ YRS 2019-08-05 00:00:00 Completed [facility] Influenza Virus Vaccine Quad IM 3+ YRS 2019-08-05 00:00:00 Completed [facility] Influenza Virus Vaccine Quad IM 3+ YRS 2019-08-05 00:00:00 Completed [facility] Influenza Virus Vaccine Quad IM 3+ YRS 2019-08-05 00:00:00 Completed [facility] Influenza Virus Vaccine Quad IM 3+ YRS 2019-08-05 00:00:00 Completed [facility] Influenza Virus Vaccine Quad IM 3+ YRS 2019-08-05 00:00:00 Completed [facility] Afluria single dose Afluria single dose 2019-08-05 00:00:00 Completed [facility] Flucelvax - single dose syringe Flucelvax - single dose syringe 2018-10-26 10:32:00 Completed [facility] Flucelvax - single dose syringe Flucelvax - single dose syringe 2018-10-26 10:32:00 Completed [facility] Flucelvax - single dose syringe Flucelvax - single dose syringe 2018-10-26 10:32:00 Completed [facility] Flucelvax - single dose syringe Flucelvax - single dose syringe 2018-10-26 00:00:00 Completed [facility] Influenza Virus Vaccine Quad .5 mL IM 6+ MO (FLUZONE/FLULAVAL/F LUARIX) Unknown Completed [facility] SARS-COV-2 COVID-19 PFIZER VACCINE Unknown Completed [facility] Influenza Virus Vaccine Quad IM, Preserv and ABX Free 6 MO-64 YRS (FLUCELVAX) Unknown Completed [facility] HPV9 Unknown Completed [facility] Influenza Virus Vaccine Quad .5 mL IM 6+ MO (FLUZONE/FLULAVAL/F LUARIX) Unknown Completed [facility] SARS-COV-2 COVID-19 PFIZER VACCINE Unknown Completed [facility] Influenza Virus Vaccine Quad IM, Preserv and ABX Free 6 MO-64 YRS (FLUCELVAX) Unknown Completed [facility] Influenza Virus Vaccine Quad .5 mL IM 6+ MO (FLUZONE/FLULAVAL/F LUARIX) Unknown Completed [facility] SARS-COV-2 COVID-19 PFIZER VACCINE Unknown Completed [facility] Influenza Virus Vaccine Quad IM, Preserv and ABX Free 6 MO-64 YRS (FLUCELVAX) Unknown Completed [facility] Influenza Virus Vaccine Quad .5 mL IM 6+ MO (FLUZONE/FLULAVAL/F LUARIX) Unknown Completed [facility] SARS-COV-2 COVID-19 PFIZER VACCINE Unknown Completed [facility] Influenza Virus Vaccine Quad IM, Preserv and ABX Free 6 MO-64 YRS (FLUCELVAX) Unknown Completed [facility] Influenza Virus Vaccine Quad .5 mL IM 6+ MO (FLUZONE/FLULAVAL/F LUARIX) Unknown Completed [facility] SARS-COV-2 COVID-19 PFIZER VACCINE Unknown Completed [facility] Influenza Virus Vaccine Quad IM, Preserv and ABX Free 6 MO-64 YRS (FLUCELVAX) Unknown Completed [facility] Influenza Virus Vaccine Quad .5 mL IM 6+ MO (FLUZONE/FLULAVAL/F LUARIX) Unknown Completed [facility] SARS-COV-2 COVID-19 PFIZER VACCINE Unknown Completed [facility] Influenza Virus Vaccine Quad .5 mL IM 6+ MO (FLUZONE/FLULAVAL/F LUARIX) Unknown Completed [facility] SARS-COV-2 COVID-19 PFIZER VACCINE Unknown Completed [facility] Influenza Virus Vaccine Quad .5 mL IM 6+ MO (FLUZONE/FLULAVAL/F LUARIX) Unknown Completed [facility] SARS-COV-2 COVID-19 PFIZER VACCINE Unknown Completed [facility] Influenza Virus Vaccine Quad .5 mL IM 6+ MO (FLUZONE/FLULAVAL/F LUARIX) Unknown Completed [facility] SARS-COV-2 COVID-19 PFIZER VACCINE Unknown Completed [facility] Influenza Virus Vaccine Quad .5 mL IM 6+ MO (FLUZONE/FLULAVAL/F LUARIX) Unknown Completed [facility] SARS-COV-2 COVID-19 PFIZER VACCINE Unknown Completed [facility] Influenza Virus Vaccine Quad .5 mL IM 6+ MO (FLUZONE/FLULAVAL/F LUARIX) Unknown Completed [facility] Influenza Virus Vaccine Quad .5 mL IM 6+ MO (FLUZONE/FLULAVAL/F LUARIX) Unknown Completed [facility] Influenza Virus Vaccine Quad .5 mL IM 6+ MO (FLUZONE/FLULAVAL/F LUARIX) Unknown Completed [facility] Influenza Virus Vaccine Quad .5 mL IM 6+ MO (FLUZONE/FLULAVAL/F LUARIX) Unknown Completed [facility] SARS-COV-2 COVID-19 PFIZER VACCINE Unknown Completed [facility] Influenza Virus Vaccine Quad IM, Preserv and ABX Free 6 MO-64 YRS (FLUCELVAX) Unknown Completed [facility] HPV9 Unknown Completed [facility] Influenza Virus Vaccine Quad .5 mL IM 6+ MO (FLUZONE/FLULAVAL/F LUARIX) Unknown Completed [facility] SARS-COV-2 COVID-19 PFIZER VACCINE Unknown Completed [facility] Influenza Virus Vaccine Quad IM, Preserv and ABX Free 6 MO-64 YRS (FLUCELVAX) Unknown Completed [facility] HPV9 Unknown Completed [facility] Influenza Virus Vaccine Quad .5 mL IM 6+ MO (FLUZONE/FLULAVAL/F LUARIX) Unknown Completed [facility] SARS-COV-2 COVID-19 PFIZER VACCINE Unknown Completed [facility] Influenza Virus Vaccine Quad IM, Preserv and ABX Free 6 MO-64 YRS (FLUCELVAX) Unknown Completed [facility] HPV9 Unknown Completed [facility] Influenza Virus Vaccine Quad IM, Preserv and ABX Free 6 MO-64 YRS (FLUCELVAX) Unknown Completed [facility] Influenza Virus Vaccine Quad IM 3+ YRS Unknown Completed [facility] SARS-COV-2 COVID-19 PFIZER VACCINE Unknown Completed [facility] HPV9 Unknown Completed [facility] Influenza Virus Vaccine Quad .5 mL IM 6+ MO (FLUZONE/FLULAVAL/F LUARIX) Unknown Completed [facility] SARS-COV-2 COVID-19 PFIZER VACCINE Unknown Completed [facility] Influenza Virus Vaccine Quad IM, Preserv and ABX Free 6 MO-64 YRS (FLUCELVAX) Unknown Completed [facility] HPV9 Unknown Completed [facility] Influenza Virus Vaccine Quad .5 mL IM 6+ MO (FLUZONE/FLULAVAL/F LUARIX) Unknown Completed [facility] SARS-COV-2 COVID-19 PFIZER VACCINE Unknown Completed [facility] Influenza Virus Vaccine Quad IM, Preserv and ABX Free 6 MO-64 YRS (FLUCELVAX) Unknown Completed [facility] HPV9 Unknown Completed [facility] Influenza Virus Vaccine Quad .5 mL IM 6+ MO (FLUZONE/FLULAVAL/F LUARIX) Unknown Completed [facility] SARS-COV-2 COVID-19 PFIZER VACCINE Unknown Completed [facility] Influenza Virus Vaccine Quad IM, Preserv and ABX Free 6 MO-64 YRS (FLUCELVAX) Unknown Completed [facility] HPV9 Unknown Completed [facility] Influenza Virus Vaccine Quad .5 mL IM 6+ MO (FLUZONE/FLULAVAL/F LUARIX) Unknown Completed [facility] SARS-COV-2 COVID-19 PFIZER VACCINE Unknown Completed [facility] Influenza Virus Vaccine Quad IM, Preserv and ABX Free 6 MO-64 YRS (FLUCELVAX) Unknown Completed [facility] HPV9 Unknown Completed [facility] Influenza Virus Vaccine Quad .5 mL IM 6+ MO (FLUZONE/FLULAVAL/F LUARIX) Unknown Completed [facility] SARS-COV-2 COVID-19 PFIZER VACCINE Unknown Completed [facility] Influenza Virus Vaccine Quad IM, Preserv and ABX Free 6 MO-64 YRS (FLUCELVAX) Unknown Completed [facility] HPV9 Unknown Completed [facility] Influenza Virus Vaccine Quad .5 mL IM 6+ MO (FLUZONE/FLULAVAL/F LUARIX) Unknown Completed [facility] SARS-COV-2 COVID-19 PFIZER VACCINE Unknown Completed [facility] Influenza Virus Vaccine Quad IM, Preserv and ABX Free 6 MO-64 YRS (FLUCELVAX) Unknown Completed [facility] HPV9 Unknown Completed [facility] Influenza Virus Vaccine Quad .5 mL IM 6+ MO (FLUZONE/FLULAVAL/F LUARIX) Unknown Completed [facility] SARS-COV-2 COVID-19 PFIZER VACCINE Unknown Completed [facility] Influenza Virus Vaccine Quad IM, Preserv and ABX Free 6 MO-64 YRS (FLUCELVAX) Unknown Completed [facility] HPV9 Unknown Completed [facility] Influenza Virus Vaccine Quad .5 mL IM 6+ MO (FLUZONE/FLULAVAL/F LUARIX) Unknown Completed [facility] SARS-COV-2 COVID-19 PFIZER VACCINE Unknown Completed [facility] Influenza Virus Vaccine Quad IM, Preserv and ABX Free 6 MO-64 YRS (FLUCELVAX) Unknown Completed [facility] HPV9 Unknown Completed [facility] Influenza Virus Vaccine Quad .5 mL IM 6+ MO (FLUZONE/FLULAVAL/F LUARIX) Unknown Completed [facility] SARS-COV-2 COVID-19 PFIZER VACCINE Unknown Completed [facility] Influenza Virus Vaccine Quad IM, Preserv and ABX Free 6 MO-64 YRS (FLUCELVAX) Unknown Completed [facility] HPV9 Unknown Completed [facility] Influenza Virus Vaccine Quad .5 mL IM 6+ MO (FLUZONE/FLULAVAL/F LUARIX) Unknown Completed [facility] SARS-COV-2 COVID-19 PFIZER VACCINE Unknown Completed [facility] Influenza Virus Vaccine Quad IM, Preserv and ABX Free 6 MO-64 YRS (FLUCELVAX) Unknown Completed [facility] HPV9 Unknown Completed [facility] Influenza Virus Vaccine Quad .5 mL IM 6+ MO (FLUZONE/FLULAVAL/F LUARIX) Unknown Completed [facility] SARS-COV-2 COVID-19 PFIZER VACCINE Unknown Completed [facility] Influenza Virus Vaccine Quad IM, Preserv and ABX Free 6 MO-64 YRS (FLUCELVAX) Unknown Completed [facility] HPV9 Unknown Completed [facility] Influenza Virus Vaccine Quad .5 mL IM 6+ MO (FLUZONE/FLULAVAL/F LUARIX) Unknown Completed [facility] SARS-COV-2 COVID-19 PFIZER VACCINE Unknown Completed [facility] Influenza Virus Vaccine Quad IM, Preserv and ABX Free 6 MO-64 YRS (FLUCELVAX) Unknown Completed [facility] HPV9 Unknown Completed [facility] Influenza Virus Vaccine Quad .5 mL IM 6+ MO (FLUZONE/FLULAVAL/F LUARIX) Unknown Completed [facility] SARS-COV-2 COVID-19 PFIZER VACCINE Unknown Completed [facility] Influenza Virus Vaccine Quad IM, Preserv and ABX Free 6 MO-64 YRS (FLUCELVAX) Unknown Completed [facility] HPV9 Unknown Completed [facility] Influenza Virus Vaccine Quad .5 mL IM 6+ MO (FLUZONE/FLULAVAL/F LUARIX) Unknown Completed [facility] SARS-COV-2 COVID-19 PFIZER VACCINE Unknown Completed [facility] Influenza Virus Vaccine Quad IM, Preserv and ABX Free 6 MO-64 YRS (FLUCELVAX) Unknown Completed [facility] HPV9 Unknown Completed [facility] Influenza Virus Vaccine Quad .5 mL IM 6+ MO (FLUZONE/FLULAVAL/F LUARIX) Unknown Completed [facility] SARS-COV-2 COVID-19 PFIZER VACCINE Unknown Completed [facility] Influenza Virus Vaccine Quad IM, Preserv and ABX Free 6 MO-64 YRS (FLUCELVAX) Unknown Completed [facility] HPV9 Unknown Completed [facility] Influenza Virus Vaccine Quad .5 mL IM 6+ MO (FLUZONE/FLULAVAL/F LUARIX) Unknown Completed [facility] SARS-COV-2 COVID-19 PFIZER VACCINE Unknown Completed [facility] Influenza Virus Vaccine Quad IM, Preserv and ABX Free 6 MO-64 YRS (FLUCELVAX) Unknown Completed [facility] HPV9 Unknown Completed [facility] Influenza Virus Vaccine Quad .5 mL IM 6+ MO (FLUZONE/FLULAVAL/F LUARIX) Unknown Completed [facility] SARS-COV-2 COVID-19 PFIZER VACCINE Unknown Completed [facility] Influenza Virus Vaccine Quad IM, Preserv and ABX Free 6 MO-64 YRS (FLUCELVAX) Unknown Completed [facility] HPV9 Unknown Completed [facility] Influenza Virus Vaccine Quad .5 mL IM 6+ MO (FLUZONE/FLULAVAL/F LUARIX) Unknown Completed [facility] SARS-COV-2 COVID-19 PFIZER VACCINE Unknown Completed [facility] Influenza Virus Vaccine Quad IM, Preserv and ABX Free 6 MO-64 YRS (FLUCELVAX) Unknown Completed [facility] HPV9 Unknown Completed [facility] Influenza Virus Vaccine Quad .5 mL IM 6+ MO (FLUZONE/FLULAVAL/F LUARIX) Unknown Completed [facility] SARS-COV-2 COVID-19 PFIZER VACCINE Unknown Completed [facility] Influenza Virus Vaccine Quad IM, Preserv and ABX Free 6 MO-64 YRS (FLUCELVAX) Unknown Completed [facility] HPV9 Unknown Completed [facility] Influenza Virus Vaccine Quad .5 mL IM 6+ MO (FLUZONE/FLULAVAL/F LUARIX) Unknown Completed [facility] SARS-COV-2 COVID-19 PFIZER VACCINE Unknown Completed [facility] Influenza Virus Vaccine Quad IM, Preserv and ABX Free 6 MO-64 YRS (FLUCELVAX) Unknown Completed [facility] HPV9 Unknown Completed [facility] Influenza Virus Vaccine Quad .5 mL IM 6+ MO (FLUZONE/FLULAVAL/F LUARIX) Unknown Completed [facility] SARS-COV-2 COVID-19 PFIZER VACCINE Unknown Completed [facility] Influenza Virus Vaccine Quad IM, Preserv and ABX Free 6 MO-64 YRS (FLUCELVAX) Unknown Completed [facility] HPV9 Unknown Completed [facility] Influenza Virus Vaccine Quad .5 mL IM 6+ MO (FLUZONE/FLULAVAL/F LUARIX) Unknown Completed [facility] SARS-COV-2 COVID-19 PFIZER VACCINE Unknown Completed [facility] Influenza Virus Vaccine Quad IM, Preserv and ABX Free 6 MO-64 YRS (FLUCELVAX) Unknown Completed [facility] HPV9 Unknown Completed [facility] Influenza Virus Vaccine Quad .5 mL IM 6+ MO (FLUZONE/FLULAVAL/F LUARIX) Unknown Completed [facility] SARS-COV-2 COVID-19 PFIZER VACCINE Unknown Completed [facility] Influenza Virus Vaccine Quad IM, Preserv and ABX Free 6 MO-64 YRS (FLUCELVAX) Unknown Completed [facility] HPV9 Unknown Completed [facility] Influenza Virus Vaccine Quad .5 mL IM 6+ MO (FLUZONE/FLULAVAL/F LUARIX) Unknown Completed [facility] SARS-COV-2 COVID-19 PFIZER VACCINE Unknown Completed [facility] Influenza Virus Vaccine Quad IM, Preserv and ABX Free 6 MO-64 YRS (FLUCELVAX) Unknown Completed [facility] HPV9 Unknown Completed [facility] Influenza Virus Vaccine Quad .5 mL IM 6+ MO (FLUZONE/FLULAVAL/F LUARIX) Unknown Completed [facility] SARS-COV-2 COVID-19 PFIZER VACCINE Unknown Completed [facility] Influenza Virus Vaccine Quad IM, Preserv and ABX Free 6 MO-64 YRS (FLUCELVAX) Unknown Completed [facility] HPV9 Unknown Completed [facility] Influenza Virus Vaccine Quad .5 mL IM 6+ MO (FLUZONE/FLULAVAL/F LUARIX) Unknown Completed [facility] SARS-COV-2 COVID-19 PFIZER VACCINE Unknown Completed [facility] Influenza Virus Vaccine Quad IM, Preserv and ABX Free 6 MO-64 YRS (FLUCELVAX) Unknown Completed [facility] HPV9 Unknown Completed [facility] Influenza Virus Vaccine Quad .5 mL IM 6+ MO (FLUZONE/FLULAVAL/F LUARIX) Unknown Completed [facility] SARS-COV-2 COVID-19 PFIZER VACCINE Unknown Completed [facility] Influenza Virus Vaccine Quad IM, Preserv and ABX Free 6 MO-64 YRS (FLUCELVAX) Unknown Completed [facility] HPV9 Unknown Completed [facility] Influenza Virus Vaccine Quad .5 mL IM 6+ MO (FLUZONE/FLULAVAL/F LUARIX) Unknown Completed [facility] SARS-COV-2 COVID-19 PFIZER VACCINE Unknown Completed [facility] Influenza Virus Vaccine Quad IM, Preserv and ABX Free 6 MO-64 YRS (FLUCELVAX) Unknown Completed [facility] HPV9 Unknown Completed [facility] Influenza Virus Vaccine Quad .5 mL IM 6+ MO (FLUZONE/FLULAVAL/F LUARIX) Unknown Completed [facility] SARS-COV-2 COVID-19 PFIZER VACCINE Unknown Completed [facility] Influenza Virus Vaccine Quad IM, Preserv and ABX Free 6 MO-64 YRS (FLUCELVAX) Unknown Completed [facility] HPV9 Unknown Completed [facility] Influenza Virus Vaccine Quad .5 mL IM 6+ MO (FLUZONE/FLULAVAL/F LUARIX) Unknown Completed [facility] SARS-COV-2 COVID-19 PFIZER VACCINE Unknown Completed [facility] Influenza Virus Vaccine Quad IM, Preserv and ABX Free 6 MO-64 YRS (FLUCELVAX) Unknown Completed [facility] HPV9 Unknown Completed [facility] Influenza Virus Vaccine Quad .5 mL IM 6+ MO (FLUZONE/FLULAVAL/F LUARIX) Unknown Completed [facility] SARS-COV-2 COVID-19 PFIZER VACCINE Unknown Completed [facility] Influenza Virus Vaccine Quad IM, Preserv and ABX Free 6 MO-64 YRS (FLUCELVAX) Unknown Completed [facility] HPV9 Unknown Completed [facility] Influenza Virus Vaccine Quad .5 mL IM 6+ MO (FLUZONE/FLULAVAL/F LUARIX) Unknown Completed [facility] SARS-COV-2 COVID-19 PFIZER VACCINE Unknown Completed [facility] Influenza Virus Vaccine Quad IM, Preserv and ABX Free 6 MO-64 YRS (FLUCELVAX) Unknown Completed [facility] HPV9 Unknown Completed [facility] Influenza Virus Vaccine Quad .5 mL IM 6+ MO (FLUZONE/FLULAVAL/F LUARIX) Unknown Completed [facility] SARS-COV-2 COVID-19 PFIZER VACCINE Unknown Completed [facility] Influenza Virus Vaccine Quad IM, Preserv and ABX Free 6 MO-64 YRS (FLUCELVAX) Unknown Completed [facility] HPV9 Unknown Completed [facility] Influenza Virus Vaccine Quad .5 mL IM 6+ MO (FLUZONE/FLULAVAL/F LUARIX) Unknown Completed [facility] SARS-COV-2 COVID-19 PFIZER VACCINE Unknown Completed [facility] Influenza Virus Vaccine Quad IM, Preserv and ABX Free 6 MO-64 YRS (FLUCELVAX) Unknown Completed [facility] HPV9 Unknown Completed [facility] Influenza Virus Vaccine Quad .5 mL IM 6+ MO (FLUZONE/FLULAVAL/F LUARIX) Unknown Completed [facility] SARS-COV-2 COVID-19 PFIZER VACCINE Unknown Completed [facility] Influenza Virus Vaccine Quad IM, Preserv and ABX Free 6 MO-64 YRS (FLUCELVAX) Unknown Completed [facility] HPV9 Unknown Completed [facility] Influenza Virus Vaccine Quad .5 mL IM 6+ MO (FLUZONE/FLULAVAL/F LUARIX) Unknown Completed [facility] SARS-COV-2 COVID-19 PFIZER VACCINE Unknown Completed [facility] Influenza Virus Vaccine Quad IM, Preserv and ABX Free 6 MO-64 YRS (FLUCELVAX) Unknown Completed [facility] HPV9 Unknown Completed [facility] Influenza Virus Vaccine Quad .5 mL IM 6+ MO (FLUZONE/FLULAVAL/F LUARIX) Unknown Completed [facility] SARS-COV-2 COVID-19 PFIZER VACCINE Unknown Completed [facility] Influenza Virus Vaccine Quad IM, Preserv and ABX Free 6 MO-64 YRS (FLUCELVAX) Unknown Completed [facility] HPV9 Unknown Completed [facility] Influenza Virus Vaccine Quad .5 mL IM 6+ MO (FLUZONE/FLULAVAL/F LUARIX) Unknown Completed [facility] SARS-COV-2 COVID-19 PFIZER VACCINE Unknown Completed [facility] Influenza Virus Vaccine Quad IM, Preserv and ABX Free 6 MO-64 YRS (FLUCELVAX) Unknown Completed [facility] HPV9 Unknown Completed [facility] Influenza Virus Vaccine Quad .5 mL IM 6+ MO (FLUZONE/FLULAVAL/F LUARIX) Unknown Completed [facility] SARS-COV-2 COVID-19 PFIZER VACCINE Unknown Completed [facility] Influenza Virus Vaccine Quad IM, Preserv and ABX Free 6 MO-64 YRS (FLUCELVAX) Unknown Completed [facility] HPV9 Unknown Completed [facility] Influenza Virus Vaccine Quad .5 mL IM 6+ MO (FLUZONE/FLULAVAL/F LUARIX) Unknown Completed [facility] SARS-COV-2 COVID-19 PFIZER VACCINE Unknown Completed [facility] Influenza Virus Vaccine Quad IM, Preserv and ABX Free 6 MO-64 YRS (FLUCELVAX) Unknown Completed [facility] HPV9 Unknown Completed [facility] Influenza Virus Vaccine Quad .5 mL IM 6+ MO (FLUZONE/FLULAVAL/F LUARIX) Unknown Completed [facility] SARS-COV-2 COVID-19 PFIZER VACCINE Unknown Completed [facility] Influenza Virus Vaccine Quad IM, Preserv and ABX Free 6 MO-64 YRS (FLUCELVAX) Unknown Completed [facility] HPV9 Unknown Completed [facility] Influenza Virus Vaccine Quad .5 mL IM 6+ MO (FLUZONE/FLULAVAL/F LUARIX) Unknown Completed [facility] SARS-COV-2 COVID-19 PFIZER VACCINE Unknown Completed [facility] Influenza Virus Vaccine Quad IM, Preserv and ABX Free 6 MO-64 YRS (FLUCELVAX) Unknown Completed [facility] HPV9 Unknown Completed [facility] Influenza Virus Vaccine Quad .5 mL IM 6+ MO (FLUZONE/FLULAVAL/F LUARIX) Unknown Completed [facility] SARS-COV-2 COVID-19 PFIZER VACCINE Unknown Completed [facility] Influenza Virus Vaccine Quad IM, Preserv and ABX Free 6 MO-64 YRS (FLUCELVAX) Unknown Completed [facility] HPV9 Unknown Completed [facility] Influenza Virus Vaccine Quad .5 mL IM 6+ MO (FLUZONE/FLULAVAL/F LUARIX) Unknown Completed [facility] SARS-COV-2 COVID-19 PFIZER VACCINE Unknown Completed [facility] Influenza Virus Vaccine Quad IM, Preserv and ABX Free 6 MO-64 YRS (FLUCELVAX) Unknown Completed [facility] HPV9 Unknown Completed [facility] Influenza Virus Vaccine Quad .5 mL IM 6+ MO (FLUZONE/FLULAVAL/F LUARIX) Unknown Completed [facility] SARS-COV-2 COVID-19 PFIZER VACCINE Unknown Completed [facility] Influenza Virus Vaccine Quad IM, Preserv and ABX Free 6 MO-64 YRS (FLUCELVAX) Unknown Completed [facility] HPV9 Unknown Completed [facility] Influenza Virus Vaccine Quad .5 mL IM 6+ MO (FLUZONE/FLULAVAL/F LUARIX) Unknown Completed [facility] SARS-COV-2 COVID-19 PFIZER VACCINE Unknown Completed [facility] Influenza Virus Vaccine Quad IM, Preserv and ABX Free 6 MO-64 YRS (FLUCELVAX) Unknown Completed [facility] HPV9 Unknown Completed [facility] Influenza Virus Vaccine Quad .5 mL IM 6+ MO (FLUZONE/FLULAVAL/F LUARIX) Unknown Completed [facility] SARS-COV-2 COVID-19 PFIZER VACCINE Unknown Completed [facility] Influenza Virus Vaccine Quad IM, Preserv and ABX Free 6 MO-64 YRS (FLUCELVAX) Unknown Completed [facility] HPV9 Unknown Completed [facility] Influenza Virus Vaccine Quad .5 mL IM 6+ MO (FLUZONE/FLULAVAL/F LUARIX) Unknown Completed [facility] SARS-COV-2 COVID-19 PFIZER VACCINE Unknown Completed [facility] Influenza Virus Vaccine Quad IM, Preserv and ABX Free 6 MO-64 YRS (FLUCELVAX) Unknown Completed [facility] HPV9 Unknown Completed [facility] Influenza Virus Vaccine Quad .5 mL IM 6+ MO (FLUZONE/FLULAVAL/F LUARIX) Unknown Completed [facility] SARS-COV-2 COVID-19 PFIZER VACCINE Unknown Completed [facility] Influenza Virus Vaccine Quad IM, Preserv and ABX Free 6 MO-64 YRS (FLUCELVAX) Unknown Completed [facility] HPV9 Unknown Completed [facility] Influenza Virus Vaccine Quad .5 mL IM 6+ MO (FLUZONE/FLULAVAL/F LUARIX) Unknown Completed [facility] SARS-COV-2 COVID-19 PFIZER VACCINE Unknown Completed [facility] Influenza Virus Vaccine Quad IM, Preserv and ABX Free 6 MO-64 YRS (FLUCELVAX) Unknown Completed [facility] HPV9 Unknown Completed [facility] Influenza Virus Vaccine Quad .5 mL IM 6+ MO (FLUZONE/FLULAVAL/F LUARIX) Unknown Completed [facility] SARS-COV-2 COVID-19 PFIZER VACCINE Unknown Completed [facility] Influenza Virus Vaccine Quad IM, Preserv and ABX Free 6 MO-64 YRS (FLUCELVAX) Unknown Completed [facility] HPV9 Unknown Completed [facility] Influenza Virus Vaccine Quad .5 mL IM 6+ MO (FLUZONE/FLULAVAL/F LUARIX) Unknown Completed [facility] SARS-COV-2 COVID-19 PFIZER VACCINE Unknown Completed [facility] Influenza Virus Vaccine Quad IM, Preserv and ABX Free 6 MO-64 YRS (FLUCELVAX) Unknown Completed [facility] HPV9 Unknown Completed [facility] Influenza Virus Vaccine Quad .5 mL IM 6+ MO (FLUZONE/FLULAVAL/F LUARIX) Unknown Completed [facility] SARS-COV-2 COVID-19 PFIZER VACCINE Unknown Completed [facility] Influenza Virus Vaccine Quad IM, Preserv and ABX Free 6 MO-64 YRS (FLUCELVAX) Unknown Completed [facility] HPV9 Unknown Completed [facility] Influenza Virus Vaccine Quad .5 mL IM 6+ MO (FLUZONE/FLULAVAL/F LUARIX) Unknown Completed [facility] SARS-COV-2 COVID-19 PFIZER VACCINE Unknown Completed [facility] Influenza Virus Vaccine Quad IM, Preserv and ABX Free 6 MO-64 YRS (FLUCELVAX) Unknown Completed [facility] HPV9 Unknown Completed [facility] Influenza Virus Vaccine Quad .5 mL IM 6+ MO (FLUZONE/FLULAVAL/F LUARIX) Unknown Completed [facility] SARS-COV-2 COVID-19 PFIZER VACCINE Unknown Completed [facility] Influenza Virus Vaccine Quad IM, Preserv and ABX Free 6 MO-64 YRS (FLUCELVAX) Unknown Completed [facility] HPV9 Unknown Completed [facility] Influenza Virus Vaccine Quad .5 mL IM 6+ MO (FLUZONE/FLULAVAL/F LUARIX) Unknown Completed [facility] SARS-COV-2 COVID-19 PFIZER VACCINE Unknown Completed [facility] Influenza Virus Vaccine Quad IM, Preserv and ABX Free 6 MO-64 YRS (FLUCELVAX) Unknown Completed [facility] HPV9 Unknown Completed [facility] Influenza Virus Vaccine Quad .5 mL IM 6+ MO (FLUZONE/FLULAVAL/F LUARIX) Unknown Completed [facility] SARS-COV-2 COVID-19 PFIZER VACCINE Unknown Completed [facility] Influenza Virus Vaccine Quad IM, Preserv and ABX Free 6 MO-64 YRS (FLUCELVAX) Unknown Completed [facility] HPV9 Unknown Completed [facility] Influenza Virus Vaccine Quad .5 mL IM 6+ MO (FLUZONE/FLULAVAL/F LUARIX) Unknown Completed [facility] SARS-COV-2 COVID-19 PFIZER VACCINE Unknown Completed [facility] Influenza Virus Vaccine Quad IM, Preserv and ABX Free 6 MO-64 YRS (FLUCELVAX) Unknown Completed [facility] HPV9 Unknown Completed [facility] Influenza Virus Vaccine Quad .5 mL IM 6+ MO (FLUZONE/FLULAVAL/F LUARIX) Unknown Completed [facility] SARS-COV-2 COVID-19 PFIZER VACCINE Unknown Completed [facility] Influenza Virus Vaccine Quad IM, Preserv and ABX Free 6 MO-64 YRS (FLUCELVAX) Unknown Completed [facility] HPV9 Unknown Completed [facility] Influenza Virus Vaccine Quad .5 mL IM 6+ MO (FLUZONE/FLULAVAL/F LUARIX) Unknown Completed [facility] SARS-COV-2 COVID-19 PFIZER VACCINE Unknown Completed [facility] Influenza Virus Vaccine Quad IM, Preserv and ABX Free 6 MO-64 YRS (FLUCELVAX) Unknown Completed [facility] HPV9 Unknown Completed [facility] Influenza Virus Vaccine Quad .5 mL IM 6+ MO (FLUZONE/FLULAVAL/F LUARIX) Unknown Completed [facility] SARS-COV-2 COVID-19 PFIZER VACCINE Unknown Completed [facility] Influenza Virus Vaccine Quad IM, Preserv and ABX Free 6 MO-64 YRS (FLUCELVAX) Unknown Completed [facility] HPV9 Unknown Completed [facility] Influenza Virus Vaccine Quad .5 mL IM 6+ MO (FLUZONE/FLULAVAL/F LUARIX) Unknown Completed [facility] SARS-COV-2 COVID-19 PFIZER VACCINE Unknown Completed [facility] Influenza Virus Vaccine Quad IM, Preserv and ABX Free 6 MO-64 YRS (FLUCELVAX) Unknown Completed [facility] HPV9 Unknown Completed [facility] Influenza Virus Vaccine Quad .5 mL IM 6+ MO (FLUZONE/FLULAVAL/F LUARIX) Unknown Completed [facility] SARS-COV-2 COVID-19 PFIZER VACCINE Unknown Completed [facility] Influenza Virus Vaccine Quad IM, Preserv and ABX Free 6 MO-64 YRS (FLUCELVAX) Unknown Completed [facility] HPV9 Unknown Completed [facility] Influenza Virus Vaccine Quad .5 mL IM 6+ MO (FLUZONE/FLULAVAL/F LUARIX) Unknown Completed [facility] SARS-COV-2 COVID-19 PFIZER VACCINE Unknown Completed [facility] Influenza Virus Vaccine Quad IM, Preserv and ABX Free 6 MO-64 YRS (FLUCELVAX) Unknown Completed [facility] HPV9 Unknown Completed [facility] Influenza Virus Vaccine Quad .5 mL IM 6+ MO (FLUZONE/FLULAVAL/F LUARIX) Unknown Completed [facility] SARS-COV-2 COVID-19 PFIZER VACCINE Unknown Completed [facility] Influenza Virus Vaccine Quad IM, Preserv and ABX Free 6 MO-64 YRS (FLUCELVAX) Unknown Completed [facility] HPV9 Unknown Completed [facility] Influenza Virus Vaccine Quad .5 mL IM 6+ MO (FLUZONE/FLULAVAL/F LUARIX) Unknown Completed [facility] SARS-COV-2 COVID-19 PFIZER VACCINE Unknown Completed [facility] Influenza Virus Vaccine Quad IM, Preserv and ABX Free 6 MO-64 YRS (FLUCELVAX) Unknown Completed [facility] HPV9 Unknown Completed [facility] Influenza Virus Vaccine Quad .5 mL IM 6+ MO (FLUZONE/FLULAVAL/F LUARIX) Unknown Completed [facility] SARS-COV-2 COVID-19 PFIZER VACCINE Unknown Completed [facility] Influenza Virus Vaccine Quad IM, Preserv and ABX Free 6 MO-64 YRS (FLUCELVAX) Unknown Completed [facility] HPV9 Unknown Completed [facility] Influenza Virus Vaccine Quad .5 mL IM 6+ MO (FLUZONE/FLULAVAL/F LUARIX) Unknown Completed [facility] SARS-COV-2 COVID-19 PFIZER VACCINE Unknown Completed [facility] Influenza Virus Vaccine Quad IM, Preserv and ABX Free 6 MO-64 YRS (FLUCELVAX) Unknown Completed [facility] HPV9 Unknown Completed [facility] Vital Signs Vital Name Observation Time Observation Value Comments S ource Systolic blood pressure 2024-12-05 14:19:00 126 mm[Hg] [facility] Diastolic blood pressure 2024-12-05 14:19:00 78 mm[Hg] [facility] Heart rate 2024-12-05 14:19:00 102 /min [facility] Body temperature 2024-12-05 14:19:00 36.39 Ca [facility] Body height 2024-12-05 14:19:00 154.9 cm [facility] Body weight 2024-12-05 14:19:00 74.435 kg [facility] BMI 2024-12-05 14:19:00 31.01 kg/m2 [facility] Systolic blood pressure 2024-09-12 15:15:00 113 mm[Hg] [facility] Diastolic blood pressure 2024-09-12 15:15:00 80 mm[Hg] [facility] Heart rate 2024-09-12 15:15:00 97 /min [facility] Respiratory rate 2024-09-12 15:15:00 18 /min [facility] Body height 2024-09-12 15:15:00 154.9 cm [facility] Body weight 2024-09-12 15:15:00 73.029 kg [facility] BMI 2024-09-12 15:15:00 30.42 kg/m2 [facility] Systolic blood pressure 2024-09-10 14:26:00 119 mm[Hg] [facility] Diastolic blood pressure 2024-09-10 14:26:00 77 mm[Hg] [facility] Heart rate 2024-09-10 14:26:00 85 /min [facility] Body temperature 2024-09-10 14:26:00 36.44 Ca [facility] Respiratory rate 2024-09-10 14:26:00 18 /min [facility] Body height 2024-09-10 14:26:00 154.9 cm [facility] Body weight 2024-09-10 14:26:00 73.165 kg [facility] BMI 2024-09-10 14:26:00 30.48 kg/m2 [facility] Systolic blood pressure 2024-09-02 21:00:00 121 mm[Hg] [facility] Diastolic blood pressure 2024-09-02 21:00:00 87 mm[Hg] [facility] Heart rate 2024-09-02 21:00:00 81 /min [facility] Body temperature 2024-09-02 21:00:00 36.72 Ca [facility] Respiratory rate 2024-09-02 21:00:00 16 /min [facility] Oxygen saturation in Arterial blood by Pulse oximetry 2024-09-02 21:00:00 100 /min [facility] Body height 2024-09-02 18:59:00 154.9 cm [facility] Body weight 2024-09-02 18:59:00 72.621 kg [facility] BMI 2024-09-02 18:59:00 30.25 kg/m2 [facility] Systolic blood pressure 2024-07-17 17:51:00 116 mm[Hg] [facility] Diastolic blood pressure 2024-07-17 17:51:00 77 mm[Hg] [facility] Heart rate 2024-07-17 17:51:00 118 /min [facility] Body temperature 2024-07-17 17:50:00 36.06 Ca [facility] Respiratory rate 2024-07-17 17:50:00 18 /min [facility] Body height 2024-07-17 17:50:00 154.9 cm [facility] Body weight 2024-07-17 17:50:00 72.167 kg [facility] BMI 2024-07-17 17:50:00 30.06 kg/m2 [facility] Oxygen saturation in Arterial blood by Pulse oximetry 2024-07-17 17:50:00 98 /min [facility] Systolic blood pressure 2024-07-01 20:26:00 114 mm[Hg] [facility] Diastolic blood pressure 2024-07-01 20:26:00 75 mm[Hg] [facility] Heart rate 2024-07-01 20:26:00 111 /min [facility] Body temperature 2024-07-01 20:26:00 36.22 Ca [facility] Respiratory rate 2024-07-01 20:26:00 18 /min [facility] Oxygen saturation in Arterial blood by Pulse oximetry 2024-07-01 20:26:00 96 /min [facility] Body weight 2024-06-28 09:00:00 75.751 kg [facility] BMI 2024-06-28 09:00:00 31.55 kg/m2 [facility] Body height 2024-06-27 14:37:00 154.9 cm [facility] Systolic blood pressure 2024-06-22 16:05:00 130 mm[Hg] [facility] Diastolic blood pressure 2024-06-22 16:05:00 79 mm[Hg] [facility] Heart rate 2024-06-22 16:05:00 105 /min [facility] Body temperature 2024-06-22 16:05:00 37.06 Ca [facility] Respiratory rate 2024-06-22 16:05:00 18 /min [facility] Oxygen saturation in Arterial blood by Pulse oximetry 2024-06-22 16:05:00 97 /min [facility] Body height 2024-06-20 01:49:00 154.9 cm [facility] Body weight 2024-06-20 01:49:00 72.576 kg [facility] BMI 2024-06-20 01:49:00 30.23 kg/m2 [facility] Systolic blood pressure 2024-06-18 13:55:00 131 mm[Hg] [facility] Diastolic blood pressure 2024-06-18 13:55:00 80 mm[Hg] [facility] Heart rate 2024-06-18 13:55:00 128 /min [facility] Body temperature 2024-06-18 13:55:00 36.94 Ca [facility] Respiratory rate 2024-06-18 13:55:00 18 /min [facility] Body height 2024-06-18 13:55:00 154.9 cm [facility] Body weight 2024-06-18 13:55:00 73.347 kg [facility] BMI 2024-06-18 13:55:00 30.55 kg/m2 [facility] Systolic blood pressure 2024-06-17 08:00:00 122 mm[Hg] [facility] Diastolic blood pressure 2024-06-17 08:00:00 73 mm[Hg] [facility] Heart rate 2024-06-17 08:00:00 110 /min [facility] Body temperature 2024-06-17 08:00:00 37.17 Ca [facility] Oxygen saturation in Arterial blood by Pulse oximetry 2024-06-17 08:00:00 99 /min [facility] Respiratory rate 2024-06-17 07:00:00 21 /min [facility] Body height 2024-06-17 05:24:00 154.9 cm [facility] Body weight 2024-06-17 05:24:00 73.8 kg [facility] BMI 2024-06-17 05:24:00 30.74 kg/m2 [facility] Systolic blood pressure 2024-06-10 13:31:00 135 mm[Hg] [facility] Diastolic blood pressure 2024-06-10 13:31:00 91 mm[Hg] [facility] Heart rate 2024-06-10 13:31:00 107 /min [facility] Body temperature 2024-06-10 13:30:00 36.33 Ca [facility] Body height 2024-06-10 13:30:00 153.7 cm [facility] Body weight 2024-06-10 13:30:00 72.122 kg [facility] BMI 2024-06-10 13:30:00 30.54 kg/m2 [facility] Oxygen saturation in Arterial blood by Pulse oximetry 2024-06-10 13:30:00 98 /min [facility] Systolic blood pressure 2024-05-06 15:56:00 119 mm[Hg] [facility] Diastolic blood pressure 2024-05-06 15:56:00 78 mm[Hg] [facility] Heart rate 2024-05-06 15:56:00 90 /min [facility] Body temperature 2024-05-06 15:56:00 36.61 Ca [facility] Respiratory rate 2024-05-06 15:56:00 18 /min [facility] Body weight 2024-05-06 15:56:00 73.573 kg [facility] BMI 2024-05-06 15:56:00 31.16 kg/m2 [facility] Oxygen saturation in Arterial blood by Pulse oximetry 2024-05-06 15:56:00 99 /min [facility] Systolic blood pressure 2024-04-09 14:28:00 111 mm[Hg] [facility] Diastolic blood pressure 2024-04-09 14:28:00 75 mm[Hg] [facility] Heart rate 2024-04-09 14:28:00 66 /min [facility] Body temperature 2024-04-09 14:28:00 36.28 Ca [facility] Body height 2024-04-09 14:28:00 153.7 cm without shoes [facility] Body weight 2024-04-09 14:28:00 74.072 kg without shoes [facility] BMI 2024-04-09 14:28:00 31.37 kg/m2 [facility] Oxygen saturation in Arterial blood by Pulse oximetry 2024-04-09 14:28:00 100 /min [facility] Systolic blood pressure 2024-04-09 14:28:00 123 mm[Hg] [facility] Diastolic blood pressure 2024-04-09 14:28:00 78 mm[Hg] [facility] Heart rate 2024-04-09 14:28:00 74 /min [facility] Body temperature 2024-04-09 14:27:00 36.28 Ca [facility] Body height 2024-04-09 14:27:00 153.7 cm without shoes [facility] Body weight 2024-04-09 14:27:00 74.072 kg without shoes [facility] BMI 2024-04-09 14:27:00 31.37 kg/m2 [facility] Oxygen saturation in Arterial blood by Pulse oximetry 2024-04-09 14:27:00 100 /min [facility] Systolic blood pressure 2024-03-26 14:03:00 131 mm[Hg] [facility] Diastolic blood pressure 2024-03-26 14:03:00 90 mm[Hg] [facility] Heart rate 2024-03-26 14:03:00 85 /min [facility] Body temperature 2024-03-26 14:03:00 36.33 Ca [facility] Respiratory rate 2024-03-26 14:03:00 18 /min [facility] Body height 2024-03-26 14:03:00 154.9 cm [facility] Body weight 2024-03-26 14:03:00 73.71 kg [facility] BMI 2024-03-26 14:03:00 30.70 kg/m2 [facility] Systolic blood pressure 2024-03-01 13:32:00 118 mm[Hg] [facility] Diastolic blood pressure 2024-03-01 13:32:00 74 mm[Hg] [facility] Heart rate 2024-03-01 13:32:00 64 /min [facility] Body temperature 2024-03-01 13:32:00 36.67 Ca [facility] Respiratory rate 2024-03-01 13:32:00 20 /min [facility] Body height 2024-03-01 13:32:00 154.9 cm [facility] Body weight 2024-03-01 13:32:00 73.483 kg [facility] BMI 2024-03-01 13:32:00 30.61 kg/m2 [facility] Oxygen saturation in Arterial blood by Pulse oximetry 2024-03-01 13:32:00 99 /min [facility] Systolic blood pressure 2024-02-02 10:00:00 123 mm[Hg] [facility] Diastolic blood pressure 2024-02-02 10:00:00 78 mm[Hg] [facility] Heart rate 2024-02-02 10:00:00 90 /min [facility] Respiratory rate 2024-02-02 10:00:00 16 /min [facility] Oxygen saturation in Arterial blood by Pulse oximetry 2024-02-02 10:00:00 98 /min [facility] Body temperature 2024-02-02 08:54:00 36.56 Ca [facility] Body height 2024-02-02 08:54:00 154.9 cm [facility] Body weight 2024-02-02 08:54:00 74.844 kg [facility] BMI 2024-02-02 08:54:00 31.18 kg/m2 [facility] Systolic blood pressure 2024-01-09 14:51:00 112 mm[Hg] [facility] Diastolic blood pressure 2024-01-09 14:51:00 66 mm[Hg] [facility] Heart rate 2024-01-09 14:51:00 78 /min [facility] Body temperature 2024-01-09 14:51:00 36.56 Ca [facility] Respiratory rate 2024-01-09 14:51:00 18 /min [facility] Body height 2024-01-09 14:51:00 152.4 cm [facility] Body weight 2024-01-09 14:51:00 75.025 kg [facility] BMI 2024-01-09 14:51:00 32.30 kg/m2 [facility] Oxygen saturation in Arterial blood by Pulse oximetry 2024-01-09 14:51:00 100 /min [facility] Systolic blood pressure 2024-01-02 16:52:00 121 mm[Hg] [facility] Diastolic blood pressure 2024-01-02 16:52:00 71 mm[Hg] [facility] Heart rate 2024-01-02 16:52:00 92 /min [facility] Body temperature 2024-01-02 16:52:00 36.5 Ca [facility] Respiratory rate 2024-01-02 16:52:00 17 /min [facility] Body height 2024-01-02 16:52:00 152.4 cm [facility] Body weight 2024-01-02 16:52:00 74.118 kg [facility] BMI 2024-01-02 16:52:00 31.91 kg/m2 [facility] Systolic blood pressure 2023-12-19 15:49:00 109 mm[Hg] [facility] Diastolic blood pressure 2023-12-19 15:49:00 72 mm[Hg] [facility] Heart rate 2023-12-19 15:49:00 79 /min [facility] Body temperature 2023-12-19 15:49:00 36.56 Ca [facility] Respiratory rate 2023-12-19 15:49:00 18 /min [facility] Body height 2023-12-19 15:49:00 152.4 cm [facility] Body weight 2023-12-19 15:49:00 74.844 kg [facility] BMI 2023-12-19 15:49:00 32.22 kg/m2 [facility] Oxygen saturation in Arterial blood by Pulse oximetry 2023-12-19 15:49:00 98 /min [facility] Systolic blood pressure 2023-11-28 19:03:00 101 mm[Hg] [facility] Diastolic blood pressure 2023-11-28 19:03:00 66 mm[Hg] [facility] Heart rate 2023-11-28 19:03:00 64 /min [facility] Body temperature 2023-11-28 19:03:00 37 Ca [facility] Respiratory rate 2023-11-28 19:03:00 18 /min [facility] Body height 2023-11-28 19:03:00 152.4 cm [facility] Body weight 2023-11-28 19:03:00 76.204 kg [facility] BMI 2023-11-28 19:03:00 32.81 kg/m2 [facility] Systolic blood pressure 2023-10-30 14:54:00 113 mm[Hg] [facility] Diastolic blood pressure 2023-10-30 14:54:00 74 mm[Hg] [facility] Heart rate 2023-10-30 14:54:00 78 /min [facility] Body temperature 2023-10-30 14:54:00 36.89 Ca [facility] Respiratory rate 2023-10-30 14:54:00 18 /min [facility] Body height 2023-10-30 14:54:00 152.4 cm [facility] Body weight 2023-10-30 14:54:00 73.936 kg [facility] BMI 2023-10-30 14:54:00 31.83 kg/m2 [facility] Systolic blood pressure 2023-10-19 15:17:00 112 mm[Hg] [facility] Diastolic blood pressure 2023-10-19 15:17:00 68 mm[Hg] [facility] Heart rate 2023-10-19 15:17:00 77 /min [facility] Body temperature 2023-10-19 15:17:00 36.17 Ca [facility] Respiratory rate 2023-10-19 15:17:00 18 /min [facility] Body weight 2023-10-19 15:17:00 77.747 kg [facility] BMI 2023-10-19 15:17:00 32.39 kg/m2 [facility] Systolic blood pressure 2023-10-17 15:09:00 118 mm[Hg] [facility] Diastolic blood pressure 2023-10-17 15:09:00 73 mm[Hg] [facility] Heart rate 2023-10-17 15:09:00 86 /min [facility] Body height 2023-10-17 15:09:00 154.9 cm [facility] Body weight 2023-10-17 15:09:00 77.474 kg [facility] BMI 2023-10-17 15:09:00 32.27 kg/m2 [facility] Oxygen saturation in Arterial blood by Pulse oximetry 2023-10-17 15:09:00 100 /min [facility] Systolic blood pressure 2023-10-10 13:59:00 117 mm[Hg] [facility] Diastolic blood pressure 2023-10-10 13:59:00 65 mm[Hg] [facility] Heart rate 2023-10-10 13:59:00 68 /min [facility] Body temperature 2023-10-10 13:59:00 36.56 Ca [facility] Respiratory rate 2023-10-10 13:59:00 18 /min [facility] Body height 2023-10-10 13:59:00 154.9 cm [facility] Body weight 2023-10-10 13:59:00 78.336 kg [facility] BMI 2023-10-10 13:59:00 32.63 kg/m2 [facility] Systolic blood pressure 2023-09-12 20:14:00 113 mm[Hg] [facility] Diastolic blood pressure 2023-09-12 20:14:00 76 mm[Hg] [facility] Heart rate 2023-09-12 20:14:00 85 /min [facility] Body temperature 2023-09-12 20:14:00 36.61 Ca [facility] Respiratory rate 2023-09-12 20:14:00 18 /min [facility] Body height 2023-09-12 20:14:00 154.9 cm [facility] Body weight 2023-09-12 20:14:00 79.096 kg [facility] BMI 2023-09-12 20:14:00 32.95 kg/m2 [facility] Body temperature 2023-09-06 17:46:00 36.06 Ca [facility] Systolic blood pressure 2023-08-23 15:26:00 110 mm[Hg] [facility] Diastolic blood pressure 2023-08-23 15:26:00 64 mm[Hg] [facility] Heart rate 2023-08-23 15:26:00 68 /min [facility] Body temperature 2023-08-23 15:26:00 36.56 Ca [facility] Body height 2023-08-23 15:26:00 154.9 cm [facility] Body weight 2023-08-23 15:26:00 79.198 kg [facility] BMI 2023-08-23 15:26:00 32.99 kg/m2 [facility] Systolic blood pressure 2023-07-19 15:43:00 136 mm[Hg] [facility] Diastolic blood pressure 2023-07-19 15:43:00 77 mm[Hg] [facility] Heart rate 2023-07-19 15:43:00 97 /min [facility] Body temperature 2023-07-19 15:43:00 36.61 Ca [facility] Respiratory rate 2023-07-19 15:43:00 19 /min [facility] Body height 2023-07-19 15:43:00 154.9 cm [facility] Body weight 2023-07-19 15:43:00 82.691 kg [facility] BMI 2023-07-19 15:43:00 34.45 kg/m2 [facility] Oxygen saturation in Arterial blood by Pulse oximetry 2023-07-19 15:43:00 99 /min [facility] Systolic blood pressure 2023-07-18 13:37:00 120 mm[Hg] [facility] Diastolic blood pressure 2023-07-18 13:37:00 79 mm[Hg] [facility] Heart rate 2023-07-18 13:36:00 95 /min [facility] Body temperature 2023-07-18 13:36:00 36.39 Ca [facility] Respiratory rate 2023-07-18 13:36:00 18 /min [facility] Body height 2023-07-18 13:36:00 154.9 cm [facility] Body weight 2023-07-18 13:36:00 81.784 kg [facility] BMI 2023-07-18 13:36:00 34.07 kg/m2 [facility] Systolic blood pressure 2023-07-14 00:36:00 137 mm[Hg] [facility] Diastolic blood pressure 2023-07-14 00:36:00 92 mm[Hg] [facility] Heart rate 2023-07-14 00:36:00 97 /min [facility] Body temperature 2023-07-14 00:36:00 37.22 Ca [facility] Respiratory rate 2023-07-14 00:36:00 18 /min [facility] Body height 2023-07-14 00:36:00 154.9 cm [facility] Body weight 2023-07-14 00:36:00 83.19 kg [facility] BMI 2023-07-14 00:36:00 34.65 kg/m2 [facility] Oxygen saturation in Arterial blood by Pulse oximetry 2023-07-14 00:36:00 100 /min [facility] Systolic blood pressure 2023-04-25 17:58:00 115 mm[Hg] [facility] Diastolic blood pressure 2023-04-25 17:58:00 77 mm[Hg] [facility] Heart rate 2023-04-25 17:58:00 89 /min [facility] Body temperature 2023-04-25 17:58:00 36.28 Ca [facility] Respiratory rate 2023-04-25 17:58:00 17 /min [facility] Body height 2023-04-25 17:58:00 154.9 cm [facility] Body weight 2023-04-25 17:58:00 79.017 kg [facility] BMI 2023-04-25 17:58:00 32.91 kg/m2 [facility] Systolic blood pressure 2023-04-18 13:27:00 125 mm[Hg] [facility] Diastolic blood pressure 2023-04-18 13:27:00 82 mm[Hg] [facility] Heart rate 2023-04-18 13:27:00 89 /min [facility] Respiratory rate 2023-04-18 13:27:00 20 /min [facility] Body height 2023-04-18 13:27:00 154.9 cm [facility] Body weight 2023-04-18 13:27:00 79.833 kg [facility] BMI 2023-04-18 13:27:00 33.25 kg/m2 [facility] Oxygen saturation in Arterial blood by Pulse oximetry 2023-04-18 13:27:00 99 /min [facility] Systolic blood pressure 2023-02-28 14:09:00 128 mm[Hg] [facility] Diastolic blood pressure 2023-02-28 14:09:00 82 mm[Hg] [facility] Heart rate 2023-02-28 14:09:00 86 /min [facility] Body height 2023-02-28 14:09:00 154.9 cm [facility] Body weight 2023-02-28 14:09:00 78.699 kg [facility] BMI 2023-02-28 14:09:00 32.78 kg/m2 [facility] Oxygen saturation in Arterial blood by Pulse oximetry 2023-02-28 14:09:00 96 /min [facility] Systolic blood pressure 2023-01-31 18:07:00 92 mm[Hg] [facility] Diastolic blood pressure 2023-01-31 18:07:00 69 mm[Hg] [facility] Heart rate 2023-01-31 18:07:00 82 /min [facility] Body temperature 2023-01-31 18:07:00 36.5 Ca [facility] Respiratory rate 2023-01-31 18:07:00 20 /min [facility] Body height 2023-01-31 18:07:00 154.9 cm [facility] Body weight 2023-01-31 18:07:00 75.978 kg [facility] BMI 2023-01-31 18:07:00 31.65 kg/m2 [facility] Systolic blood pressure 2022-11-08 15:40:00 114 mm[Hg] [facility] Diastolic blood pressure 2022-11-08 15:40:00 74 mm[Hg] [facility] Heart rate 2022-11-08 15:40:00 79 /min [facility] Body temperature 2022-11-08 15:40:00 36.33 Ca [facility] Respiratory rate 2022-11-08 15:40:00 18 /min [facility] Body weight 2022-11-08 15:40:00 75.569 kg [facility] BMI 2022-11-08 15:40:00 31.48 kg/m2 [facility] Systolic blood pressure 2022-08-11 15:59:00 129 mm[Hg] [facility] Diastolic blood pressure 2022-08-11 15:59:00 81 mm[Hg] [facility] Heart rate 2022-08-11 15:59:00 79 /min [facility] Body temperature 2022-08-11 15:59:00 36.11 Ca [facility] Respiratory rate 2022-08-11 15:59:00 18 /min [facility] Body height 2022-08-11 15:59:00 154.9 cm [facility] Body weight 2022-08-11 15:59:00 73.71 kg [facility] BMI 2022-08-11 15:59:00 30.70 kg/m2 [facility] Systolic blood pressure 2022-08-09 14:47:00 134 mm[Hg] [facility] Diastolic blood pressure 2022-08-09 14:47:00 86 mm[Hg] [facility] Heart rate 2022-08-09 14:47:00 87 /min [facility] Body temperature 2022-08-09 14:47:00 36.5 Ca [facility] Respiratory rate 2022-08-09 14:47:00 20 /min [facility] Body height 2022-08-09 14:47:00 154.9 cm [facility] Body weight 2022-08-09 14:47:00 72.303 kg [facility] BMI 2022-08-09 14:47:00 30.12 kg/m2 [facility] Systolic blood pressure 2022-05-17 14:21:00 125 mm[Hg] [facility] Diastolic blood pressure 2022-05-17 14:21:00 86 mm[Hg] [facility] Heart rate 2022-05-17 14:21:00 77 /min [facility] Body temperature 2022-05-17 14:21:00 36.11 Ca [facility] Respiratory rate 2022-05-17 14:21:00 17 /min [facility] Body height 2022-05-17 14:21:00 154.9 cm [facility] Body weight 2022-05-17 14:21:00 77.168 kg [facility] BMI 2022-05-17 14:21:00 32.14 kg/m2 [facility] Systolic blood pressure 2022-02-14 14:43:00 134 mm[Hg] [facility] Diastolic blood pressure 2022-02-14 14:43:00 98 mm[Hg] [facility] Heart rate 2022-02-14 14:42:00 96 /min [facility] Body temperature 2022-02-14 14:42:00 36.11 Ca [facility] Respiratory rate 2022-02-14 14:42:00 18 /min [facility] Body height 2022-02-14 14:42:00 154.9 cm [facility] Body weight 2022-02-14 14:42:00 77.168 kg [facility] BMI 2022-02-14 14:42:00 32.14 kg/m2 [facility] Systolic blood pressure 2021-12-24 15:47:00 126 mm[Hg] [facility] Diastolic blood pressure 2021-12-24 15:47:00 86 mm[Hg] [facility] Heart rate 2021-12-24 15:45:00 96 /min [facility] Body temperature 2021-12-24 15:45:00 36.22 Ca [facility] Respiratory rate 2021-12-24 15:45:00 18 /min [facility] Body height 2021-12-24 15:45:00 154.9 cm [facility] Body weight 2021-12-24 15:45:00 77.157 kg [facility] BMI 2021-12-24 15:45:00 32.14 kg/m2 [facility] Oxygen saturation in Arterial blood by Pulse oximetry 2021-12-24 15:45:00 99 /min [facility] Body weight 2021-04-29 13:26:00 79.2 kg [facility] BMI 2021-04-29 13:26:00 31.94 kg/m2 [facility] Body weight 2021-03-02 18:34:00 63.5 kg [facility] BMI 2021-03-02 18:34:00 26.45 kg/m2 [facility] height 2020-10-22 11:00:00 60.00 [in_i] [facility] weight 2020-10-22 11:00:00 175.6 [lb_av] [facility] temperature 2020-10-22 11:00:00 97.9 [degF] [facility] bmi 2020-10-22 11:00:00 34.29 kg/m2 [facility] oximetry 2020-10-22 11:00:00 97 % [facility] respiratory rate 2020-10-22 11:00:00 16 /min [facility] blood pressure systolic 2020-10-22 11:00:00 125 mm[Hg] [facility] blood pressure diastolic 2020-10-22 11:00:00 84 mm[Hg] [facility] height 2020-09-14 15:00:00 60.00 [in_i] [facility] weight 2020-09-14 15:00:00 178.8 [lb_av] [facility] temperature 2020-09-14 15:00:00 98.0 [degF] [facility] bmi 2020-09-14 15:00:00 34.92 kg/m2 [facility] oximetry 2020-09-14 15:00:00 98 % [facility] respiratory rate 2020-09-14 15:00:00 16 /min [facility] blood pressure systolic 2020-09-14 15:00:00 139 mm[Hg] [facility] blood pressure diastolic 2020-09-14 15:00:00 88 mm[Hg] [facility] height 2020-09-03 08:20:00 60.00 [in_i] [facility] weight 2020-09-03 08:20:00 179 [lb_av] [facility] temperature 2020-09-03 08:20:00 97.6 [degF] [facility] bmi 2020-09-03 08:20:00 34.95 kg/m2 [facility] BP Systolic 2024-09-30 08:26:00 123 mm[Hg] [facility] BP Diastolic 2024-09-30 08:26:00 80 mm[Hg] [facility] Weight Measured 2024-09-30 08:26:00 162.80 pounds [facility] Height Measured 2024-09-30 08:26:00 61.00 inches [facility] Body Temperature 2024-09-30 08:26:00 98.20 degrees [facility] Heart Rate 2024-09-30 08:26:00 100.00 /min [facility] Respiratory Rate 2024-09-30 08:26:00 18.00 /min [facility] BP Systolic 2024-08-15 09:48:00 117 mm[Hg] [facility] BP Diastolic 2024-08-15 09:48:00 76 mm[Hg] [facility] Weight Measured 2024-08-15 09:48:00 160.80 pounds [facility] Height Measured 2024-08-15 09:48:00 61.00 inches [facility] Body Temperature 2024-08-15 09:48:00 98.90 degrees [facility] Heart Rate 2024-08-15 09:48:00 102.00 /min [facility] Respiratory Rate 2024-08-15 09:48:00 19.00 /min [facility] Systolic blood pressure 2024-06-29 12:51:00 122 mm[Hg] [facility] Diastolic blood pressure 2024-06-29 12:51:00 80 mm[Hg] [facility] Heart rate 2024-06-29 12:51:00 105 /min [facility] Body temperature 2024-06-29 12:51:00 37 Ca [facility] Respiratory rate 2024-06-29 12:51:00 19 /min [facility] Oxygen saturation in Arterial blood by Pulse oximetry 2024-06-29 12:51:00 94 /min [facility] Body weight 2024-06-28 09:00:00 75.751 kg [facility] BMI 2024-06-28 09:00:00 31.55 kg/m2 [facility] Body height 2024-06-27 14:37:00 154.9 cm [facility] BP Systolic 2023-09-26 14:56:00 108 mm[Hg] [facility] BP Diastolic 2023-09-26 14:56:00 70 mm[Hg] [facility] Weight Measured 2023-09-26 14:56:00 172.00 pounds [facility] Height Measured 2023-09-26 14:56:00 61.00 inches [facility] Body Temperature 2023-09-26 14:56:00 97.40 degrees [facility] Heart Rate 2023-09-26 14:56:00 70.00 /min [facility] Respiratory Rate 2023-09-26 14:56:00 [facility] BP Systolic 2023-09-19 10:14:00 106 mm[Hg] [facility] BP Diastolic 2023-09-19 10:14:00 73 mm[Hg] [facility] Weight Measured 2023-09-19 10:14:00 174.20 pounds [facility] Height Measured 2023-09-19 10:14:00 61.00 inches [facility] Body Temperature 2023-09-19 10:14:00 97.70 degrees [facility] Heart Rate 2023-09-19 10:14:00 81.00 /min [facility] Respiratory Rate 2023-09-19 10:14:00 18.00 /min [facility] BP Systolic 2022-10-13 16:01:00 110 mm[Hg] [facility] BP Diastolic 2022-10-13 16:01:00 79 mm[Hg] [facility] Weight Measured 2022-10-13 16:01:00 166.20 pounds [facility] Height Measured 2022-10-13 16:01:00 61.00 inches [facility] Body Temperature 2022-10-13 16:01:00 98.30 degrees [facility] Heart Rate 2022-10-13 16:01:00 95.00 /min [facility] Respiratory Rate 2022-10-13 16:01:00 18.00 /min [facility] BP Systolic 2022-10-10 10:00:00 112 mm[Hg] [facility] BP Diastolic 2022-10-10 10:00:00 80 mm[Hg] [facility] Weight Measured 2022-10-10 10:00:00 165.60 pounds [facility] Height Measured 2022-10-10 10:00:00 61.00 inches [facility] Body Temperature 2022-10-10 10:00:00 97.90 degrees [facility] Heart Rate 2022-10-10 10:00:00 91.00 /min [facility] Respiratory Rate 2022-10-10 10:00:00 [facility] BP Systolic 2022-05-25 14:26:00 130 mm[Hg] [facility] BP Diastolic 2022-05-25 14:26:00 92 mm[Hg] [facility] Weight Measured 2022-05-25 14:26:00 167.40 pounds [facility] Height Measured 2022-05-25 14:26:00 61.00 inches [facility] Body Temperature 2022-05-25 14:26:00 98.30 degrees [facility] Heart Rate 2022-05-25 14:26:00 86.00 /min [facility] Respiratory Rate 2022-05-25 14:26:00 Hi [facility] BP Systolic 2022-01-13 15:03:00 Hi [facility] BP Diastolic 2022-01-13 15:03:00 Hi [facility] Weight Measured 2022-01-13 15:03:00 170.00 pounds [facility] Height Measured 2022-01-13 15:03:00 61.00 inches [facility] Body Temperature 2022-01-13 15:03:00 Hi F [facility] Heart Rate 2022-01-13 15:03:00 Hi [facility] Respiratory Rate 2022-01-13 15:03:00 Hi F [facility] BP Systolic 2022-01-12 14:26:00 115 mm[Hg] [facility] BP Diastolic 2022-01-12 14:26:00 74 mm[Hg] [facility] Weight Measured 2022-01-12 14:26:00 169.80 pounds [facility] Height Measured 2022-01-12 14:26:00 61.00 inches [facility] Body Temperature 2022-01-12 14:26:00 97.50 degrees [facility] Heart Rate 2022-01-12 14:26:00 103.00 /min [facility] Respiratory Rate 2022-01-12 14:26:00 21.00 /min [facility] Weight Measured 2021-12-30 08:46:00 170.40 pounds [facility] Height Measured 2021-12-30 08:46:00 61.00 inches [facility] Body Temperature 2021-12-30 08:46:00 98.30 degrees [facility] Heart Rate 2021-12-30 08:46:00 102.00 /min [facility] Respiratory Rate 2021-12-30 08:46:00 16.00 /min [facility] BP Systolic 2021-12-30 08:46:00 130 mm[Hg] [facility] BP Diastolic 2021-12-30 08:46:00 88 mm[Hg] [facility] BP Systolic 2018-05-01 10:10:00 109 mm[Hg] [facility] BP Diastolic 2018-05-01 10:10:00 76 mm[Hg] [facility] Height 2018-05-01 10:10:00 154 cm [facility] Weight 2018-05-01 10:10:00 67.7 kg [facility] Body Mass Index Calculated 2018-05-01 10:10:00 28.55 kg/m2 [facility] Temperature 2018-05-01 10:10:00 96.5 [degF] [facility] Heart Rate 2018-05-01 10:10:00 91 /min [facility] Head Circumference 2018-05-01 10:10:00 54.7 cm [facility] Procedures Procedure Date / Time Performed Performing Clinician Source FLU VACC ([id number]), 6 MO-64 YRS, .5ML, IM, TIV (FLUCELVAX) 2024-09-12 15:17:46 Iman Jones [facility] MAGNESIUM 2024-07-01 10:05:00 Keo raji [facility] BASIC METABOLIC PANEL (NA, K, CL, CO2, GLUCOSE, BUN, CREATININE, CA) 2024-07-01 10:05:00 [facility] WITH DIFF 2024-07-01 10:05:00 Keo raji [facility] MAGNESIUM 2024-06-30 10:11:00 Felipe Howard [facility] BASIC METABOLIC PANEL (NA, K, CL, CO2, GLUCOSE, BUN, CREATININE, CA) 2024-06-30 10:11:00 Felipe Howard [facility] CBC WITH DIFF 2024-06-30 10:11:00 Felipe Howard [facility] CBC WITH DIFF 2024-06-29 09:20:00 Felipe Howard [facility] BASIC METABOLIC PANEL (NA, K, CL, CO2, GLUCOSE, BUN, CREATININE, CA) 2024-06-29 09:20:00 Felipe Howard [facility] MAGNESIUM 2024-06-29 09:20:00 Felipe Howard [facility] MAGNESIUM 2024-06-29 09:20:00 Felipe Howard [facility] BASIC METABOLIC PANEL (NA, K, CL, CO2, GLUCOSE, BUN, CREATININE, CA) 2024-06-29 09:20:00 Felipe Howard [facility] CBC WITH DIFF 2024-06-29 09:20:00 Felipe Howard [facility] CBC WITH DIFF 2024-06-28 09:13:00 Keo raji [facility] BASIC METABOLIC PANEL (NA, K, CL, CO2, GLUCOSE, BUN, CREATININE, CA) 2024-06-28 09:13:00 Keo raji [facility] MAGNESIUM 2024-06-28 09:13:00 Keo raji [facility] MAGNESIUM 2024-06-28 09:13:00 [facility] (NA, K, CL, CO2, GLUCOSE, BUN, CREATININE, CA) 2024-06-28 09:13:00 Keo [facility] CBC WITH DIFF 2024-06-28 09:13:00 Keo [facility] CBC WITH DIFF 2024-06-27 22:09:00 Flori Lee U [facility] CBC WITH DIFF 2024-06-27 22:09:00 Flori Lee U [facility] IR CENTRALLY INSERTED DEVICE TUNNELED 5 OR OLDER NO PORT/PUMP 2024-06-27 17:33:25 Anita [facility] IR CENTRALLY INSERTED DEVICE TUNNELED 5 OR OLDER NO PORT/PUMP 2024-06-27 17:33:25 Anita [facility] CBC WITH DIFF 2024-06-27 08:11:00 Flori Lee U [facility] BASIC METABOLIC PANEL (NA, K, CL, CO2, GLUCOSE, BUN, CREATININE, CA) 2024-06-27 08:11:00 Keo [facility] MAGNESIUM 2024-06-27 08:11:00 Keo [facility] MAGNESIUM 2024-06-27 08:11:00 [facility]IC [facility]IC PANEL (NA, K, CL, CO2, GLUCOSE, BUN, CREATININE, CA) 2024-06-27 08:11:00 Keo [facility] CBC WITH DIFF 2024-06-27 08:11:00 Flori Lee U [facility] BASIC METABOLIC PANEL (NA, K, CL, CO2, GLUCOSE, BUN, CREATININE, CA) 2024-06-26 22:46:00 Johanne Nj [facility] BASIC METABOLIC PANEL (NA, K, CL, CO2, GLUCOSE, BUN, CREATININE, CA) 2024-06-26 22:46:00 Johanne Nj [facility] URINALYSIS 2024-06-26 17:13:00 [facility] 2024-06-26 17:13:00 Keo [facility] CBC WITH DIFF 2024-06-26 17:11:00 Flori Lee U [facility] CBC WITH DIFF 2024-06-26 17:11:00 Flori Lee U [facility] CBC WITH DIFF 2024-06-26 08:32:00 Flori Lee U [facility] BASIC METABOLIC PANEL (NA, K, CL, CO2, GLUCOSE, BUN, CREATININE, CA) 2024-06-26 08:32:00 Keo [facility] MAGNESIUM 2024-06-26 08:32:00 Keo [facility] MAGNESIUM 2024-06-26 08:32:00 [facility]IC MET[facility]IC PANEL (NA, K, CL, CO2, GLUCOSE, BUN, CREATININE, CA) 2024-06-26 08:32:00 Keo [facility] CBC WITH DIFF 2024-06-26 08:32:00 Flori Lee U [facility] CBC WITH DIFF 2024-06-25 22:35:00 Felipe Howard [facility] CBC WITH DIFF 2024-06-25 22:35:00 Felipe Howard [facility] PREPARE PACKED RBC 2024-06-25 17:30:43 Natasha Howard [facility] PREPARE PACKED RBC 2024-06-25 17:30:43 Natasha Howard [facility] CBC WITHOUT DIFF 2024-06-25 16:02:00 Felipe Howard [facility] CBC WITHOUT DIFF 2024-06-25 16:02:00 Felipe Howard [facility] LACTIC ACID WHOLE BLOOD 2024-06-25 14:26:00 Brittany Crowley [facility] LACTIC ACID WHOLE BLOOD 2024-06-25 14:26:00 Brittany Crowley [facility] BLOOD CULTURE SCREEN 2024-06-25 10:21:00 Flori Lee [facility] BLOOD CULTURE SCREEN 2024-06-25 10:21:00 Flori Lee [facility] CBC WITH DIFF 2024-06-25 10:05:00 Keo [facility] BASIC METABOLIC PANEL (NA, K, CL, CO2, GLUCOSE, BUN, CREATININE, CA) 2024-06-25 10:05:00 Keo [facility] MAGNESIUM 2024-06-25 10:05:00 Keo [facility] MAGNESIUM 2024-06-25 10:05:00 Keo [facility] BASIC METABOLIC PANEL (NA, K, CL, CO2, GLUCOSE, BUN, CREATININE, CA) 2024-06-25 10:05:00 Keo [facility] CBC WITH DIFF 2024-06-25 10:05:00 Keo [facility] HB ECG ROUTINE & RHYTHM STRIP 2024-06-25 03:07:26 [facility] HB ECG ROUTINE & RHYTHM STRIP 2024-06-25 03:07:26 [facility] URINE CULTURE 2024-06-24 20:31:00 Keo [facility] CREATININE, URINE RANDOM 2024-06-24 20:31:00 Phuc Crowley анна [facility] SODIUM, URINE RANDOM 2024-06-24 20:31:00 Keo [facility] URINE CULTURE 2024-06-24 20:31:00 Keo [facility] CREATININE, URINE RANDOM 2024-06-24 20:31:00 eLo Crowley [facility] SODIUM, URINE RANDOM 2024-06-24 20:31:00 Keo [facility] HB ABO GROUPING 2024-06-24 18:12:00 [facility]24-06-24 18:12:00 Keo [facility] CBC WITHOUT DIFF 2024-06-24 17:52:00 Anita [facility] CBC WITHOUT DIFF 2024-06-24 17:52:[address] [facility] [address] ABDOMEN PELVIS WO CONTRAST 2024-06-24 17:06:49 Keo [facility] CT ABDOMEN PELVIS WO CONTRAST 2024-06-24 17:06:49 Keo [facility] EXTRA TUBE RED 2024-06-24 14:41:00 Rachel Julita [facility] EXTRA TUBE RED 2024-06-24 14:41:00 Julita Ramos [facility] CBC WITH DIFF 2024-06-24 14:38:00 Keo [facility] BASIC METABOLIC PANEL (NA, K, CL, CO2, GLUCOSE, BUN, CREATININE, CA) 2024-06-24 14:38:00 Keo [facility] HEPATIC FUNCTION PANEL ([id number]) (ALB,T.PRO,BILI T,BU/BC,ALT,AST,ALK PHOS) 2024-06-24 14:38:00 Keo [facility] PHOSPHORUS 2024-06-24 14:38:00 Keo [facility] PROTHROMBIN TIME / INR 2024-06-24 14:38:00 Keo [facility] ACTIVATED PARTIAL THRMPLAS MARISOL 2024-06-24 14:38:00 Keo [facility] PHOSPHORUS 2024-06-24 14:38:00 Keo [facility] HEPATIC FUNCTION PANEL ([id number]) (ALB,T.PRO,BILI T,BU/BC,ALT,AST,ALK PHOS) 2024-06-24 14:38:00 Keo [facility] BASIC METABOLIC PANEL (NA, K, CL, CO2, GLUCOSE, BUN, CREATININE, CA) 2024-06-24 14:38:00 Keo [facility] CBC WITH DIFF 2024-06-24 14:38:00 Keo [facility] PROTHROMBIN TIME / INR 2024-06-24 14:38:00 Crowley, [facility] ACTIVATED PARTIAL THRMPLAS MARISOL 2024-06-24 14:38:00 Crowley, [facility] LACTIC ACID WHOLE BLOOD 2024-06-24 14:37:00 Crowley, [facility] LACTIC ACID WHOLE BLOOD 2024-06-24 14:37:00 Crowley, [facility] CBC WITH DIFF 2024-06-22 14:40:00 Crowley, [facility] CBC WITH DIFF 2024-06-22 14:40:00 Crowley, [facility] MAGNESIUM 2024-06-21 11:23:00 Crowley, [facility] BASIC METABOLIC PANEL (NA, K, CL, CO2, GLUCOSE, BUN, CREATININE, CA) 2024-06-21 11:23:00 Crowley, [facility] CBC WITH DIFF 2024-06-21 11:23:00 Crowley, [facility] CBC WITH DIFF 2024-06-21 11:23:00 Crowley, [facility] BASIC METABOLIC PANEL (NA, K, CL, CO2, GLUCOSE, BUN, CREATININE, CA) 2024-06-21 11:23:00 Crowley, [facility] MAGNESIUM 2024-06-21 11:23:00 Crowley, [facility] CBC WITHOUT DIFF 2024-06-21 01:47:00 Filemon Cantrell [facility] CBC WITHOUT DIFF 2024-06-21 01:47:00 Filemon Cantrell [facility] PREPARE PACKED RBC 2024-06-20 20:22:52 Filemon Hernandez i [facility] PREPARE PACKED RBC 2024-06-20 20:22:52 Filemon Hernandez i [facility] CBC WITH DIFF 2024-06-20 18:22:00 Crowley, [facility] CBC WITH DIFF 2024-06-20 18:22:00 Crowley, [facility] PREPARE PACKED RBC 2024-06-20 14:08:52 Toshia Crowley Un [facility] PREPARE PACKED RBC 2024-06-20 14:08:52 Toshia Crowley [facility] MAGNESIUM 2024-06-20 10:50:00 Filemon Cantrell [facility] BASIC METABOLIC PANEL (NA, K, CL, CO2, GLUCOSE, BUN, CREATININE, CA) 2024-06-20 10:50:00 Filemon Cantrell [facility] CBC WITH DIFF 2024-06-20 10:50:00 [facility] LACTIC ACID WHOLE BLOOD 2024-06-20 10:50:00 Filemon Mojica [facility] CBC WITH DIFF 2024-06-20 10:50:00 [facility] BASIC METABOLIC PANEL (NA, K, CL, CO2, GLUCOSE, BUN, CREATININE, CA) 2024-06-20 10:50:00 [facility]-20 10:50:00 Filemon Cantrell [facility] LACTIC ACID WHOLE BLOOD 2024-06-20 10:50:00 Filemon Mojica [facility] CT ANGIOGRAM ABDOMEN/PELVIS 2024-06-20 03:25:34 [facility]PELVIS 2024-06-20 03:25:34 Holger Souza [facility] PROTHROMBIN TIME / INR 2024-06-20 02:50:00 Papa Souza [facility] ACTIVATED PARTIAL THRMPLAS MARISOL 2024-06-20 02:50:00 [facility] GROUPING 2024-06-20 02:50:00 Holger Souza [facility] PROTHROMBIN TIME / INR 2024-06-20 02:50:00 [facility] ACTIVATED PARTIAL THRMPLAS MARISOL 2024-06-20 02:50:00 Holger Souza [facility] HB ABO GROUPING 2024-06-20 02:50:00 [facility] 2024-06-20 02:11:00 Apolinar Sanchez [facility] POCT TEST 2024-06-20 02:11:00 Apolinar Sanchez [facility] POCT TEST 2024-06-20 02:11:00 Apolinar Sanchez [facility] URINALYSIS 2024-06-20 02:11:00 [facility] LIPASE 2024-06-20 02:03:00 Laura [facility] TROPONIN I 2024-06-20 02:03:00 Holger Souza [facility] COMP. METABOLIC PANEL ([id number]) 2024-06-20 02:03:00 [facility] CBC WITH DIFF 2024-06-20 02:03[facility]00 [facility] COMP. METABOLIC PANEL ([id number]) 2024-06-20 02:03:00 [facility] CBC WITH DIFF 2024-06-20 02:03:00 [facility] LIPASE 2024-06-20 02:03:00 Laura [facility] TROPONIN I 2024-06-20 02:03:00 Holger Souza [facility] LACTIC ACID WHOLE BLOOD 2024-06-17 07:38:00 Denice Ware [facility] LACTIC ACID WHOLE BLOOD 2024-06-17 07:38:00 Denice Ware [facility] URINE CULTURE 2024-06-17 07:37:00 Angelo Ware [facility] CT ABDOMEN PELVIS WO CONTRAST 2024-06-17 07:29:04 Angelo Ware [facility] CT ABDOMEN PELVIS WO CONTRAST 2024-06-17 07:29:04 Angelo Ware [facility] POCT TEST 2024-06-17 06:00:00 Angelo Ware [facility] POCT TEST 2024-06-17 06:00:00 Angelo Ware [facility] COMP. METABOLIC PANEL ([id number]) 2024-06-17 05:57:00 Angelo Ware [facility] CBC WITH DIFF 2024-06-17 05:57:00 Angelo Ware [facility] URINALYSIS 2024-06-17 05:57:00 [facility] WITH DIFF 2024-06-17 05:57:00 Angelo Ware [facility] COMP. METABOLIC PANEL ([id number]) 2024-06-17 05:57:00 Angelo Ware [facility] URINALYSIS 2024-06-17 05:57:00 Chaz [facility] MICROALBUMIN, RANDOM URINE (W/CREATININE)-Q 2024-06-17 00:00:00 Ap [facility] PTH, INTACT AND CALCIUM-Q 2024-06-17 00:00:00 Bennie griffin [facility] MAGNESIUM-Q 2024-06-17 00:00:00 Ap Stefan [facility] PHOSPHATE ( PHOSPHORUS)-Q 2024-06-17 00:00:00 Ap [facility] BASIC METABOLIC PANEL, PLASMA-Q 2024-06-17 00:00:00 Ap [facility] CBC (H/H, RBC, INDICES,$WBC, PLT)-Q 2024-06-17 00:00:00 Ap [facility] URINALYSIS, COMPLETE-Q 2024-06-17 00:00:00 Ap [facility] VITAMIN D, 25-HYDROXY,$LC/MS/MS-Q 2024-06-17 00:00:00 Stefan De Souza [facility] PROTEIN, TOTAL, RANDOM URINE (W/ CREATININE)-Q 2024-06-17 00:00:00 Ap [facility] (H/H, RBC, INDICES,$WBC, PLT)-Q 2024-05-27 14:28:00 Ap [facility] MICROALBUMIN, RANDOM URINE (W/CREATININE)-Q 2024-05-27 14:28:00 Ap [facility] PTH, INTACT AND CALCIUM-Q 2024-05-27 14:28:00 Bennie griffin [facility] MAGNESIUM-Q 2024-05-27 14:28:00 Stefan De Souza [facility] PHOSPHATE ( PHOSPHORUS)-Q 2024-05-27 14:28:00 Ap [facility] COMPREHENSIVE METABOLIC$PANEL W/EGFR-Q 2024-05-27 14:28:00 Ap [facility] CBC (H/H, RBC, INDICES,$WBC, PLT)-Q 2024-05-27 14:28:00 Ap [facility] URINALYSIS, COMPLETE-Q 2024-05-27 14:28:00 Ap [facility] PROTEIN, TOTAL, RANDOM URINE (W/ CREATININE)-Q 2024-05-27 14:28:00 Ap [facility] TRANSTHORACIC ECHO (TTE) COMPLETE W/ CONTRAST 2024-04-09 19:21:00 Jamila Wheeler [facility] TRANSTHORACIC ECHO (TTE) COMPLETE W/ CONTRAST 2024-04-09 19:21:00 Jamila Wheeler [facility] CT ABDOMEN PELVIS WO CONTRAST 2024-04-09 18:28:20 Jamila Wheeler [facility] CT ABDOMEN PELVIS WO CONTRAST 2024-04-09 18:28:20 Jamila Wheeler [facility] XR CHEST 2 VW 2024-04-09 18:22:01 Jamila Gatica [facility] XR CHEST 2 VW 2024-04-09 18:22:01 Jamila Gatica [facility] HB ABO GROUPING 2024-04-09 18:12:00 Jamila Gatica [facility] HB ABO GROUPING 2024-04-09 18:12:00 Jamila Gatica [facility] AMYLASE 2024-04-09 18:05:00 Jamila Gatica [facility] LIPASE 2024-04-09 18:05:00 Jamila Gatcia [facility] TEST, SERUM 2024-04-09 18:05:00 Jamila Tripathi [facility] THYROID STIMULATING HORMONE 2024-04-09 18:05:00 Jamila Wheeler [facility] COMP. METABOLIC PANEL ([id number]) 2024-04-09 18:05:00 Jamila Wheeler [facility] LIPID PANEL ([id number])(TOTAL CHOLESTEROL, TRIGLYCERIDES, HDL) 2024-04-09 18:05:00 Jamila Wheeler [facility] CBC WITH DIFF 2024-04-09 18:05:00 Jamila Gatica [facility] GLYCOSYLATED HEMOGLOBIN (A1C) 2024-04-09 18:05:00 Jamila Wheeler [facility] PROTHROMBIN TIME / INR 2024-04-09 18:05:00 Jamila Yost [facility] ACTIVATED PARTIAL THRMPLAS MARISOL 2024-04-09 18:05:00 Jamila Wheeler [facility] URINALYSIS 2024-04-09 18:05:00 Jamila Gatica [facility] TOXOPLASMA IGG ANTIBODY 2024-04-09 18:05:00 Jamila Lewis [facility] EBV VIRAL CAPSID IGG ANTIBODY 2024-04-09 18:05:00 Jamila Wheeler [facility] CYTOMEGALOVIRUS ANTIBODY IGG 2024-04-09 18:05:00 Jamila Wheeler [facility] VZV ANTIBODY SCREEN 2024-04-09 18:05:00 Jamila Mccallum [facility] HEPATITIS B SURFACE ANTIBODY 2024-04-09 18:05:00 Jamila Wheeler [facility] HEPATITIS B SURFACE ANTIGEN 2024-04-09 18:05:00 Jamila Wheeler [facility] HCV ANTIBODY 2024-04-09 18:05:00 Jamila Gatica [facility] HBC ANTIBODY (IGM & IGG) 2024-04-09 18:05:00 Jamila Rogel [facility] URINE CULTURE 2024-04-09 18:05:00 Obed Narayan [facility] HAV ANTIBODY (IGG AND IGM) 2024-04-09 18:05:00 Jamila Webster [facility] HSV 1 AND 2 GLYCOPROTEIN G IGG 2024-04-09 18:05:00 Jamial Wheeler [facility] HIV 1/2 AG-AB WITH REFLEX 2024-04-09 18:05:00 Jamila Murray [facility] SYPHILIS IGG/IGM 2024-04-09 18:05:00 Jamila Ho do [facility] URINALYSIS 2024-04-09 18:05:00 Jamila Gatica [facility] ELECTROPHORESIS, SERUM 2024-04-09 18:05:00 Jamila Yost [facility] QUANTIFERON-TB ASSAY 2024-04-09 18:05:00 Jamila Avery [facility] ANTICARDIOLIPIN ANTIBODIES 2024-04-09 18:05:00 Jamila Webster [facility] HSV 1 AND 2 GLYCOPROTEIN G IGG 2024-04-09 18:05:00 Jamila Wheeler [facility] TOXOPLASMA IGG ANTIBODY 2024-04-09 18:05:00 Jamila Lewis [facility] EBV VIRAL CAPSID IGG ANTIBODY 2024-04-09 18:05:00 Jamila Wheelre [facility] CYTOMEGALOVIRUS ANTIBODY IGG 2024-04-09 18:05:00 Jamila Wheeler [facility] SYPHILIS IGG/IGM 2024-04-09 18:05:00 Jamila Ho do [facility] VZV ANTIBODY SCREEN 2024-04-09 18:05:00 Jamila Mccallum [facility] THYROID STIMULATING HORMONE 2024-04-09 18:05:00 Jamila Wheeler [facility] HIV 1/2 AG-AB WITH REFLEX 2024-04-09 18:05:00 Jamila Murray [facility] HAV ANTIBODY (IGG AND IGM) 2024-04-09 18:05:00 Jamila Webster [facility] HCV ANTIBODY 2024-04-09 18:05:00 Jamila Gatica [facility] HBC ANTIBODY (IGM & IGG) 2024-04-09 18:05:00 Jamila Rogel [facility] HEPATITIS B SURFACE ANTIBODY 2024-04-09 18:05:00 Jamila Wheeler [facility] HEPATITIS B SURFACE ANTIGEN 2024-04-09 18:05:00 Jamila Wheeler [facility] GLYCOSYLATED HEMOGLOBIN (A1C) 2024-04-09 18:05:00 Jamila Wheeler [facility] TEST, SERUM 2024-04-09 18:05:00 Jamila Tripathi [facility] LIPASE 2024-04-09 18:05:00 Jamila Gatica [facility] AMYLASE 2024-04-09 18:05:00 Jamila Gatica [facility] INTACT PTH CALCIUM GROUP 2024-04-09 18:05:00 Jamila Rogel [facility] LIPID PANEL ([id number])(TOTAL CHOLESTEROL, TRIGLYCERIDES, HDL) 2024-04-09 18:05:00 Jamila Wheeler [facility] MISCELLANEOUS SEND OUT TEST 2024-04-09 18:05:00 Jamila Wheeler [facility] COMP. METABOLIC PANEL ([id number]) 2024-04-09 18:05:00 Jamila Wheeler [facility] ACTIVATED PARTIAL THRMPLAS MARISOL 2024-04-09 18:05:00 Jamila Wheeler [facility] PROTHROMBIN TIME / INR 2024-04-09 18:05:00 Jamila Yost [facility] CBC WITH DIFF 2024-04-09 18:05:00 Jamila Gatica [facility] HEPATITIS C VIRUS (HCV) BY QUANTITATIVE NAAT 2024-04-09 18:05:00 Jamila Wheeler [facility] IMMUNOFIXATION, SERUM 2024-04-09 18:05:00 Jamila Tripathi [facility] URINE CULTURE 2024-04-09 18:05:[address] [facility] ABO RH (TRANSPLANT ONLY- DONOR TYPES OR SECOND TYPE ON RECIPIENT) 2024-04-09 18:05:00 Jamila Wheeler [facility] HB HLA TYPE; A B C MULTI AG 2024-04-09 18:05:00 Jamila Wheeler [facility] HB HLA CLASS I/II ANTIBODY QUAL 2024-04-09 18:05:00 Jamila Wheeler [facility] HB LYMPHOCYTOTOX VXM; W TITRATE 2024-04-09 18:05:00 Jamila Wheeler [facility] HIGH RISK HPV-THIN PREP 2024-03-26 14:59:00 Junie Alatorre [facility] PAP SMEAR-LIQUID BASED-CP 2024-03-26 14:59:00 Junie Goodson [facility] POCT TEST 2024-02-02 09:00:00 Wei Sherman [facility] LIPASE 2024-02-02 08:59:00 [facility] 2024-02-02 08:59:00 [facility] COMP. METABOLIC PANEL ([id number]) 2024-02-02 08:59:00 [facility] WITH DIFF 2024-02-02 08:59:00 Lane [facility] N-TERMINAL PRO-BNP 2024-02-02 08:59:00 [facility] URINE DRUG (IMMUNOASSAY) - COMPREHENSIVE DRUG SCREEN W/O REFLEX 2024-02-02 08:59:00 [facility] NOTICE OF PRIVACY PRACTICES 2024-02-02 08:43:16 Doctor Unassigned, [place] [facility] CONSENT/REFUSAL FOR DIAGNOSIS AND TREATMENT 2024-02-02 08:42:33 Doctor Unassigned, [place] [facility] LUBNA,POST-VOID RES,US,NON-IMAGING 2024-01-09 14:54:00 Obed Narayan [facility] POCT URINALYSIS 2023-12-19 16:03:00 Obed Narayan [facility] INSURANCE CORRESPONDENCE 2023-12-18 06:01:00 Doc tor Unassigned, [place] [facility] CT THORAX WO CONTRAST 2023-12-05 17:07:00 Ilene Liuvagaby [facility] PULMONARY FUNCTION TEST (RESULTS) 2023-11-22 13:49:09 Ilene Liuvagaby [facility] INSURANCE CORRESPONDENCE 2023-11-10 06:01:00 Doc tor Unassigned, [place] [facility] PATIENT QUESTIONNAIRE 2023-10-30 06:01:00 Doctor Unassigned, [place] [facility] LUBNA,POST-VOID RES,US,NON-IMAGING 2023-10-30 00:00:00 Obed Narayan [facility] POCT URINALYSIS W/O SPECIFIC GRAVITY 2023-10-30 00:00:00 Obed Narayan [facility] FLU VACC ([id number]), 6 MO-64 YRS, .5ML, IM, QUAD (FLUCELVAX) 2023-10-17 15:12:53 Kade Liu [facility] [address] Ultrasound, Retroperitoneal (eg, Renal, Aorta, Nodes), Real Time With Image Documentation; Complete 2023-09-21 00:00:00 Hi Bañuelos REFERRAL- REQUEST/RESPONSE 2023-09-19 06:01:00 Mark mccollum Unassigned, [place] [facility] GARDASIL 9 (HPV 9V) VACCINE 2023-09-06 17:46:06 Alberta Hurst [facility] CONSENT/REFUSAL FOR DIAGNOSIS AND TREATMENT 2023-08-23 15:06:26 Doctor Unassigned, [place] [facility] ASSIGNMENT OF BENEFITS 2023-07-14 02:42:42 Docto r Unassigned, [place] [facility] POCT TEST 2023-07-14 01:23:00 Angelo Ware [facility] URINALYSIS 2023-07-14 01:21:00 Angelo Ware [facility] CONSENT/REFUSAL FOR DIAGNOSIS AND TREATMENT 2023-07-14 00:29:26 Doctor Unassigned, [place] [facility] GARDASIL 9 (HPV 9V) VACCINE 2023-04-25 18:08:38 Alberta Hurst [facility] PHYSICIAN ORDERS 2023-04-24 05:01:00 Doctor Unas signed, [place] [facility] AUTHORIZATION FOR RELEASE OF PHI 2023-03-31 05:01:00 Doctor Unassigned, [place] [facility] INSURANCE CORRESPONDENCE 2023-03-02 05:01:00 Doc tor Unassigned, [place] [facility] GARDASIL 9 (HPV 9V) VACCINE 2023-01-31 18:52:10 Alberta Hurst [facility] GC & CHLAMYDIA AMPLIFIED ASSAY 2023-01-31 18:44:00 Alberta Hurst [facility] GALV ONLY - VAGINAL PATHOGENS BY NUCLEIC ACID TESTING 2023-01-31 18:44:00 Alberta Hurst [facility] HIV 1/2 AG-AB WITH REFLEX 2023-01-31 18:44:00 Alberta Hurst [facility] HIGH RISK HPV-THIN PREP 2023-01-31 18:44:00 Alberta Hurst [facility] TRICHOMONAS AMPLIFIED ASSAY 2023-01-31 18:44:00 Alberta Hurst [facility] PAP SMEAR-LIQUID BASED-CP 2023-01-31 18:44:00 Alberta Hurst [facility] SYPHILIS IGG/IGM 2023-01-31 18:44:00 Anabelle Hurst [facility] FLU VACC (), 6 MO-64 YRS, .5ML, IM, QUAD (FLUCELVAX) 2023-01-31 18:26:50 Alberta Hurst [facility] REFERRAL- REQUEST/RESPONSE 2023-01-27 05:01:00 D chun Unassigned, [place] [facility] PATIENT QUESTIONNAIRE 2023-01-04 06:01:00 Doctor Unassigned, [place] [facility] REFERRAL- REQUEST/RESPONSE 2022-12-02 06:01:00 D octor Unassigned, [place] [facility] US RETROPERITONEAL COMPLETE 2022-08-29 18:32:47 Precious Verdugo [facility] PHOSPHORUS 2022-08-17 15:12:00 Amalia Barton [facility] URIC ACID 2022-08-17 15:12:00 [facility] METABOLIC PANEL (NA, K, CL, CO2, GLUCOSE, BUN, CREATININE, CA) 2022-08-17 15:12:00 [facility]FF 2022-08-17 15:12:00 Amalia Barton [facility] URINALYSIS 2022-08-17 15:12:00 Amalia Barton [facility] PROTEIN CREAT RATIO URINE RANDOM 2022-08-17 15:12:00 Amalia Barton [facility] HIV 1/2 AG-AB WITH REFLEX 2022-08-17 15:12:00 Jennyfer Barton [facility] CONSENT/REFUSAL FOR DIAGNOSIS AND TREATMENT 2022-08-11 14:44:13 Doctor Unassigned, [place] [facility] CT THORAX WO CONTRAST 2022-01-05 14:13:55 Sabrina Wooten [facility] FERRITIN SERUM 2021-12-24 16:28:00 [facility] TOTAL IRON BINDING CAPACITY 2021-12-24 16:28:00 Sabrina Wooten Rp [facility] COMP. METABOLIC PANEL ([id number]) 2021-12-24 16:28:00 Sabrina Wooten Rp [facility] CBC WITH DIFF 2021-12-24 16:28:00 Sabrina Wooten Rp [facility] INSURANCE CORRESPONDENCE 2021-12-02 06:01:00 Doc tor Unassigned, [place] [facility] EKG w/Rhythm Strip 2018-04-17 00:00:00 [facility] [[facility]] CBC (INCLUDES DIFF/PLT) 2018-04-17 00:00:00 [facility]] CMP W/EGFR 2018-04-17 00:00:00 [facility] [Q] EVEROLIMUS, BLOOD 2018-04-17 00:00:00 [facility]] LIPID PANEL 2018-04-17 00:00:00 [facility] [[facility]] PHOSPHATE ( PHOSPHORUS) 2018-04-17 00:00:00 [facility]] PTH, INTACT (WITHOUT CALCIUM) 2018-04-17 00:00:00 [facility]] LAMOTRIGINE 2018-04-17 00:00:00 [facility] MRI Brain w/wo contrast [id number] 2018-04-17 00:00:[address] [facility] [address] Abdomen w/wo contrast [id number] 2018-04-17 00:00:00 [facility] Encounters Start Date/Time End Date/Time Encounter Type Admission Type Attending Clinicians Care Facility Care Department Encounter ID Source 2021-12-08 12:12:18 Outpatient Bates[facility] [id number] [facility] 2021-12-08 12:11:19 Outpatient Bates, Na [facility] [id number] [facility] 2021-12-08 12:01:13 Outpatient Bates, Na [facility] [id number] [facility] 2021-12-08 12:00:44 Outpatient Bates, Na [facility] [id number] [facility] 2021-12-08 12:00:24 Outpatient Bates, Na [facility] [id number] [facility] 2021-12-08 11:57:53 Outpatient Bates, Na [facility] [id number] [facility] 2021-12-08 11:50:13 Outpatient Bates, Na [facility] [id number] [facility] 2021-12-08 11:44:48 Outpatient Bates, Na [facility]C [facility] [id number] [facility] 2021-12-08 11:44:02 Outpatient Bates, Na STLMLC [facility] [id number] [facility] 2021-12-08 11:42:40 Outpatient Bates, Na [facility]LMLC [facility] [id number] [facility] 2021-12-08 11:10:16 Outpatient Bates, Na STLMLC ST[facility] [id number] [facility] 2021-12-08 11:07:32 Outpatient Bates, Na STLMLC [facility] [id number] [facility] 2021-09-13 23:49:41 Outpatient JOSHUA BARROSO GABRIEL [facility] GIC[facility] [id number] [facility] 2021-09-13 04:00:36 Emergency [facility] [id number] [facility] 2021-09-12 09:20:27 Emergency [facility] [id number] [facility] 2021-09-11 12:17:27 Emergency [facility] [id number] [facility] 2021-09-10 06:09:58 Emergency [facility] [id number] [facility] 2021-09-09 19:00:01 Emergency [facility] [id number] [facility] 2024-12-05 09:00:00 2024-12-05 09:15:00 Nurse Visit Visit, José Luis-[facility] Nurse Alberta Hurst C Visit, José Luis-Rmchp Nurse [facility] 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 [facility] .[id number] [id number] [id number] [facility] 2024-12-05 09:00:00 2024-12-05 09:00:00 Outpatient R ALBERTA HURST [facility] [id number] [facility] 2024-12-03 09:30:00 2024-12-03 09:30:00 Outpatient R [facility] [id number] [facility] 2024-11-25 17:32:13 2024-11-25 17:32:13 Outpatient SFA [facility]FA [id number] Hi Bañuelos 2024-11-04 14:29:47 2024-11-04 14:29:47 Outpatient SFA [facility]FA [id number] Hi Bañuelos 2024-10-21 10:00:39 2024-10-21 10:00:39 Outpatient SFA SFA [id number] Hi Bañuelos 2024-10-15 11:45:00 2024-10-15 12:00:00 Afric[employer] Professor Visit Pob, [facility] Precious Verdugo Pojono, [facility] Main [facility] .[id number] [id number] [id number] [id number] [facility] 2024-10-15 11:45:00 2024-10-15 11:45:00 Outpatient R PRECIOUS VERDUGO [facility] [id number] [facility] 2024-10-14 13:19:24 2024-10-14 13:19:24 Outpatient SFA SFA [id number] Hi Bañuelos 2024-10-09 14:05:49 2024-10-09 14:05:49 Outpatient SFA [facility] [id number] Hi Bañuelos 2024-09-30 08:17:35 2024-09-30 08:17:35 Outpatient SFA [place] [id number] Hi Bañuelos 2024-09-30 00:00:00 2024-09-30 00:00:00 Outpatient Visit [facility] [id number] Hi Bañuelos 2024-09-27 09:45:00 2024-09-27 10:00:00 Afric[employer] Professor Visit Pob, [facility] Main Precious Verdugo Pojono, [facility] Main [facility] [id number] [id number] [id number] [facility] 2024-09-27 09:45:00 2024-09-27 09:45:00 Outpatient R PRECIOUS VERDUGO [facility] [id number] [facility] 2024-09-19 16:04:35 2024-09-19 16:04:35 Outpatient SFA [facility] [id number] Hi Bañuelos 2024-09-18 13:33:00 2024-09-18 13:33:00 Outpatient SFA [facility] [id number] Hi Bañuelos 2024-09-12 10:30:00 2024-09-12 11:05:47 Outpatient R IMAN JONES VIVIAN [facility] [id number] [facility] 2024-09-12 10:30:00 2024-09-12 10:45:00 Nurse Visit Nurse, [facility] Iman Jones Nurse, [facility] .2.840.114 350.1.13.10 [id number] [id number] [facility] 2024-09-10 09:30:00 2024-09-10 09:30:00 [facility] C [facility], [facility] 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 [facility] [id number] [id number] [id number] [id number] [facility] 2024-09-10 09:30:00 2024-09-10 09:25:42 Outpatient R ALBERTA HURST [facility] [id number] [facility] 2024-09-04 11:04:34 2024-09-04 11:04:34 Outpatient SFA SFA [id number] Hi Bañuelos 2024-09-02 14:03:00 2024-09-02 16:04:00 Emergency X BERNICE RYDER [facility] ERT [id number] [facility] 2024-09-02 14:03:00 2024-09-02 16:04:00 Emergency Bernice Ryder [facility] 1.0.114 [id number] [id number] [id number] [facility] 2024-08-23 09:00:00 2024-08-23 09:00:00 Outpatient R PRINCESS CHIRINOS [facility] [id number] [facility] 2024-07-24 00:00:00 2024-08-22 13:39:35 Toshia Noguera [facility] 1.0.114 350.1.13.10 4.2.7.2.686 [id number] [facility] 2024-05-13 00:00:00 2024-08-22 13:39:17 Committee Review Tari Rowley [facility] 1.840.114 350.1.13.10 4.2.7.2.686 [id number] [facility] 2024-08-22 00:00:00 2024-08-22 13:30:26 Telephone Princess Turpin [facility] ..114 350.1.13.10 4.2.7.2.686 [id number] [facility] 2024-08-19 11:08:43 2024-08-19 11:08:43 Outpatient SFA SFA [id number] Hi Bañuelos 2024-08-15 16:30:00 2024-08-15 16:30:00 Outpatient R PRINCESS CHIRINOS [facility] [id number] [facility] 2024-08-15 09:44:30 2024-08-15 09:44:30 Outpatient SFA SFA [id number] Hi Bañuelos 2024-08-15 00:00:00 2024-08-15 00:00:00 Outpatient Visit SFA [id number] Hi Bañuelos 2024-08-13 00:00:00 2024-08-13 15:54:48 Telephone Princess Chirinos [facility] 1.84.114 350.1.13.10 4.2.7.2.686 [id number] [facility] 2024-08-13 13:32:22 2024-08-13 13:32:22 Outpatient SFA SFA [id number] Hi Bañuelos 2024-08-13 09:30:00 2024-08-13 09:30:00 Outpatient R [facility] [id number] [facility] 2024-08-13 00:00:00 2024-08-13 08:35:10 Telephone Alberta Hurst 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 1.840.114 350.1.13.10 4.2.7.2.686 [id number] [facility] 2024-08-07 14:34:04 2024-08-07 14:34:04 Outpatient SFA SFA [id number] Hi Bañuelos 2024-07-29 00:00:00 2024-07-29 09:13:33 Telephone Alma Nguyen [facility] 1.0.114 350.1.13.10 4.2.7.2.686 [id number] [facility] 2024-07-24 13:03:10 2024-07-24 13:03:10 Outpatient SFA SFA [id number] Hi Bañuelos 2024-07-17 00:00:00 2024-07-23 16:27:58 Refill Jackie Mckeon [facility] 1.840.114 350.1.13.10 4.2.7.2.686 [id number] [facility] 2024-07-17 14:00:00 2024-07-17 15:00:00 Office Visit Jackie Mckeon Syed F. [facility] 1.0.114 350.1.13.10 4.2.7.2.686 [id number] [facility] 2024-07-17 14:00:00 2024-07-17 14:00:00 Outpatient PRINCESS BRANDT [facility] [id number] [facility] 2024-07-11 13:03:50 2024-07-11 13:03:50 Outpatient SFA SFA [id number] Hi Bañuelos 2024-07-05 00:00:00 2024-07-08 11:20:43 [facility] 1..114 350.1.13.10 4.2.7.2.686 [id number] [facility] 2024-07-08 00:00:00 2024-07-08 10:57:48 Letter (Out) Alma Nguyen [facility] 1.114 350.1.13.10 4.2.7.2.686 [id number] [facility] 2024-07-03 00:00:00 2024-07-03 10:42:18 Transition of Care Maris Ferrari Marisa M [address] 1..114 350.1.13.10 4.2.7.2.686 [id number] [facility] 2024-07-02 00:00:00 2024-07-02 16:12:42 Telephone Leydi Boss [facility] 1.114 350.1.13.10 4.2.7.2.686 [id number] [facility] 2024-06-24 08:47:00 2024-07-01 20:53:00 Inpatient X JULITA RAMOS [facility] [id number] [facility] 2024-06-24 08:47:00 2024-07-01 20:53:00 Hospital Encounter Julita Ramos [facility] 1.114 350.1.13.10 4.2.7.2.686 [id number] [facility] 2024-07-01 13:03:31 2024-07-01 13:03:31 Outpatient [facility] [id number] Hi Garcia Sarmad 2024-05-29 00:00:00 2024-06-29 18:18:43 Patient Secure Msg Doctor Unassigned, [place] Doctor Unassigned, [place] [facility] IAY [facility] 1.114 350.1.13.10 4.2.7.2.686 [id number] [facility] 2024-06-28 00:00:00 2024-06-28 16:59:44 Telephone Stefan De Souza 1.2.840.1 53405.1.1 3.104.2.7 .3.765300 .8 [id number] [facility] 2024-06-27 00:00:00 2024-06-27 00:00:00 Travel 1.2.840.1 29456.1.1 3.104.2.7 .3.141714 .8 1.2.840.114 350.1.13.10 4.2.7.3.698 084.8 [id number] [facility] 2024-06-26 09:34:14 2024-06-26 09:34:14 Outpatient [facility] [id number] Hi Garcia [place] 2024-06-24 13:32:12 2024-06-24 13:32:12 Outpatient [facility] [id number] Hi Bañuelos 2024-06-24 00:00:00 2024-06-24 08:52:25 Transition of Care Maris Ferrari 1.2.840.1 76865.1.1 3.104.2.7 .3.036856 .8 [id number] [facility] 2024-06-24 00:00:00 2024-06-24 00:00:00 Travel 1.2.840.1 21703.1.1 3.104.2.7 .3.047721 .8 1.2.840.114 350.1.13.10 4.2.7.3.698 084.8 [id number] [facility] 2024-06-19 20:53:00 2024-06-22 14:57:00 Inpatient JULITA PATEL [facility] [id number] [facility] 2024-06-19 20:53:00 2024-06-22 14:57:00 Hospital Encounter Apolinar Sanchez, Julita Melendez Sunil 1.2.840.1 11373.1.1 3.104.2.7 .3.576461 .8 [id number] [facility] 2024-06-19 00:00:00 2024-06-19 00:00:00 Travel 1.2.840.1 89192.1.1 3.104.2.7 .3.364177 .8 1.2.840.114 350.1.13.10 4.2.7.3.698 084.8 [id number] [facility] 2024-06-18 08:30:00 2024-06-18 08:55:17 Outpatient R ALBERTA HURST [facility] [id number] [facility] 2024-06-18 08:30:00 2024-06-18 08:55:17 [facility] 1.2.840.1 80184.1.1 3.104.2.7 .3.725605 .8 [id number] [facility] 2024-06-17 00:23:00 2024-06-17 03:34:00 Emergency X ANGELO WARE WAKILI [facility] [id number] [facility] 2024-06-17 00:23:00 2024-06-17 03:34:00 Emergency Angelo Ware S 1.2.840.1 05961.1.1 3.104.2.7 .3.932068 .8 [id number] [facility] 2024-06-17 00:00:00 2024-06-17 00:00:00 Travel 1.2.840.1 40397.1.1 3.104.2.7 .3.206016 .8 1.2.840.114 350.1.13.10 4.2.7.3.698 084.8 [id number] [facility] 2024-06-12 10:58:22 2024-06-12 10:58:22 Outpatient SFA SFA [id number] Hi Bañuelos 2024-06-11 11:05:17 2024-06-11 11:05:17 Outpatient SFA [id number] [id number] Hi Bañuelos 2024-06-10 09:00:00 2024-06-10 09:36:16 Outpatient R STEFAN DE SOUZA SIBY [facility] [id number] [facility] 2024-06-10 09:00:00 2024-06-10 09:36:16 Office Visit Stefan De Souza 1.2.840.1 61851.1.1 3.104.2.7 .3.873132 .8 [id number] [facility] 2024-06-10 00:00:00 2024-06-10 00:00:00 Travel 1.2.840.1 26509.1.1 3.104.2.7 .3.078757 .8 1.2.840.114 350.1.13.10 4.2.7.3.698 084.8 [id number] [facility] 2024-05-28 10:40:24 2024-05-28 10:40:24 Outpatient [facility] [id number] Hi Bañuelos 2024-05-27 00:00:00 2024-05-27 18:28:13 Orders Only Stefan De Souza 1.2.840.1 95521.1.1 3.104.2.7 .3.373479 .8 [id number] [facility] 2024-05-24 00:00:00 2024-05-27 08:15:21 Telephone Stefan De Souza 1.2.840.1 95218.1.1 3.104.2.7 .3.247509 .8 [id number] [facility] 2024-05-14 08:33:50 2024-05-14 08:33:50 Outpatient [facility] [place] [id number] Hi Bañuelos 2024-05-13 14:33:00 2024-05-13 23:59:00 Hospital Encounter Alma Nguyen 1.2.840.1 48654.1.1 3.104.2.7 .3.967655 .8 [id number] [facility] 2024-05-13 00:00:00 2024-05-13 23:59:00 [facility] [id number] [facility] 2024-05-13 00:00:00 2024-05-13 14:34:49 Letter (Out) Alma Nguyen 1.2.840.1 13602.1.1 3.104.2.7 .3.683385 .8 [id number] [facility] 2024-05-13 00:00:00 2024-05-13 13:40:42 Telephone Tari Rowley 1.2.840.1 66481.1.1 3.104.2.7 .3.570738 .8 [id number] [facility] 2024-05-13 00:00:00 2024-05-13 13:04:08 Telephone Jamila Ho do 1.2.840.1 05675.1.1 3.104.2.7 .3.590092 .8 [id number] [facility] 2024-05-09 00:00:00 2024-05-10 08:54:11 Telephone Alberta Hurst 1.2.840.1 47901.1.1 3.104.2.7 .3.180597 .8 [id number] [facility] 2024-05-08 13:06:36 2024-05-08 13:06:36 Outpatient [facility] [id number] Hi Garcia Sarmad 2024-05-03 00:00:00 2024-05-08 12:00:53 Telephone Tari Rowley 1.2.840.1 34524.1.1 3.104.2.7 .3.740352 .8 [id number] [facility] 2024-05-03 00:00:00 2024-05-08 12:00:50 Telephone Tari Rowley 1.2.840.1 80106.1.1 3.104.2.7 .3.017999 .8 [id number] [facility] 2024-05-06 00:00:00 2024-05-07 12:37:16 Telephone Jamila Ho do 1.2.840.1 36453.1.1 3.104.2.7 .3.280127 .8 [id number] [facility] 2024-05-07 00:00:00 2024-05-07 00:00:00 RefPatrick Johnson 1.2.840.1 30292.1.1 3.104.2.7 .3.413094 .8 [id number] [facility] 2024-05-06 10:40:00 2024-05-06 11:00:53 Outpatient R LISA KNAPP [facility] [id number] [facility] 2024-05-06 10:40:00 2024-05-06 11:00:53 Nurse Visit Lisa Knapp Nurse, [facility] 1.2.840.1 63622.1.1 3.104.2.7 .3.771483 .8 [id number] [facility] 2024-05-06 00:00:00 2024-05-06 00:00:00 Travel 1.2.840.1 30443.1.1 3.104.2.7 .3.738696 .8 1.2.840.114 350.1.13.10 4.2.7.3.698 084.8 [id number] [facility] 2024-04-29 00:00:00 2024-04-29 00:00:00 Scanned Documents Doctor Unassigned, [place] 1.2.840.1 81441.1.1 3.104.2.7 .3.060863 .8 [id number] [facility] 2024-04-19 00:00:00 2024-04-26 09:30:52 Telephone Jamila Ho do 1.840.1 07143.1.1 3.104.2.7 .3.998611 .8 [id number] [facility] 2024-04-22 00:00:00 2024-04-22 00:00:00 Scanned Documents Doctor Unassigned, [place] 1.840.1 05829.1.1 3.104.2.7 .3.852147 .8 [id number] [facility] 2024-04-17 13:02:21 2024-04-17 13:02:21 Outpatient [facility] [id number] Hi Bañuelos 2024-04-10 13:13:08 2024-04-10 13:13:08 Outpatient [facility] [id number] Hi Bañuelos 2024-04-10 00:00:00 2024-04-10 00:00:00 Outpatient R JAMILA HO DO [facility] [id number] [facility] 2024-04-09 13:33:12 2024-04-09 23:59:00 Hospital Encounter Jamila Ho do 1.840.1 89726.1.1 3.104.2.7 .3.010540 .8 [id number] [facility] 2024-04-09 14:30:00 2024-04-09 14:45:00 Africana Studies Professor Visit Jamila Ho do [facility] Transplant 1.840.1 76735.1.1 3.104.2.7 .3.023039 .8 [id number] [facility] 2024-04-09 12:58:20 2024-04-09 13:32:00 Hospital Encounter Gamilla-Cru do, Jamila K N 1.2.840.1 96698.1.1 3.104.2.7 .3.952872 .8 [id number] [facility] 2024-04-09 12:58:03 2024-04-09 13:32:00 Hospital Encounter Jamila Ho do N 1.2.840.1 21061.1.1 3.104.2.7 .3.543062 .8 [id number] [facility] 2024-04-09 11:30:00 2024-04-09 12:00:00 Office Visit Alma Nguyen Transplant, Kidney Surgery 1.2.840.1 71225.1.1 3.104.2.7 .3.776876 .8 [id number] [facility] 2024-04-09 10:30:00 2024-04-09 11:15:00 Glass Carrier Visit Alma Nguyen Glass Carrier, Transplant 1.2.840.1 53791.1.1 3.104.2.7 .3.202610 .8 [id number] [facility] 2024-04-09 10:00:00 2024-04-09 10:30:00 Case Management Alma Nguyen Worker, Transplant Social 1.2.840.1 12326.1.1 3.104.2.7 .3.502133 .8 [id number] [facility] 2024-04-09 09:00:00 2024-04-09 09:15:00 Office Visit Alma Nguyen do, Ann K N 1.2.840.1 22752.1.1 3.104.2.7 .3.252493 .8 [id number] [facility] 2024-04-09 09:00:00 2024-04-09 09:00:00 Outpatient R ALMA NGUYEN [facility] [id number] [facility] 2024-04-09 08:00:00 2024-04-09 08:45:00 Nurse Visit Alma Nguyen 1.2.840.1 89168.1.1 3.104.2.7 .3.202261 .8 [id number] [facility] 2024-04-09 00:00:00 2024-04-09 00:00:00 Travel 1.2.840.1 63416.1.1 3.104.2.7 .3.637234 .8 1.2.840.114 350.1.13.10 4.2.7.3.698 084.8 [id number] [facility] 2024-04-05 00:00:00 2024-04-05 15:23:43 Telephone Junie Alatorre 1.2.840.1 14629.1.1 3.104.2.7 .3.162807 .8 [id number] [facility] 2024-03-27 09:01:41 2024-03-27 09:01:41 Outpatient SFA SFA [id number] Hi Radha Sarmad 2024-03-26 09:00:00 2024-03-26 09:44:45 Outpatient R ALBERTA HURST [facility] [id number] [facility] 2024-03-26 09:00:00 2024-03-26 09:44:45 Office Visit Junie Alatorre Damilola [facility] 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 [facility] 1.2.840.114 350.1.13.10 4.2.7.2.686 [id number] [facility] 2024-03-18 09:58:57 2024-03-18 09:58:57 Outpatient SFA SFA [id number] Hi Radha Sarmad 2024-03-14 14:58:26 2024-03-14 14:58:26 Outpatient SFA SFA [id number] Hi Radha Sarmad 2024-03-01 08:30:00 2024-03-01 09:00:00 Office Visit Perry, Kati [facility] 1..114 350.1.13.10 4.2.7.2.686 [id number] [facility] 2024-03-01 08:30:00 2024-03-01 08:30:00 Outpatient Moise ORLANDO KATI [facility] [id number] [facility] 2024-03-01 00:00:00 2024-03-01 00:00:00 Case Management [place] neri, Jamila Griffin [facility] 1..114 350.1.13.10 4.2.7.2.686 [id number] [facility] 2024-02-20 13:00:23 2024-02-20 13:00:23 Outpatient S[facility] [id number] Hi Bañuelos 2024-02-17 08:56:00 2024-02-17 23:59:00 Hospital Encounter ChangAlma leong [facility] 1..114 350.1.13.10 4.2.7.2.686 [id number] [facility] 2024-02-17 00:00:00 2024-02-17 23:59:00 Outpatient R ALMA NGUYEN [facility] ACO [id number] [facility] 2024-02-17 00:00:00 2024-02-17 00:00:00 Letter (Out) Alma Nguyen [facility] 1..114 350.1.13.10 4.2.7.2.686 [id number] [facility] 2024-02-16 09:30:00 2024-02-16 09:30:00 Outpatient Moise HOFFMANHKATI [facility] [id number] [facility] 2024-02-13 00:00:00 2024-02-13 00:00:00 Telephone Alma Nguyen [facility] 1..840.114 350.1.13.10 4.2.7.2.686 [id number] [facility] 2024-02-07 08:38:48 2024-02-07 08:38:48 Outpatient SFA SFA [id number] Hi Bañuelos 2024-02-06 00:00:00 2024-02-06 00:00:00 Patient Secure Msg Doctor Unassigned, [place] [facility] MED[facility] OFFICE BUILD[facility] 1..840.114 350.1.13.10 4.2.7.2.686 [id number] [facility] 2024-02-02 03:45:00 2024-02-02 05:54:00 Emergency X THIERNO SHERMAN [facility] ERT [id number] [facility] 2024-02-02 03:45:00 2024-02-02 05:54:00 Emergency Thierno Sherman [facility] 1.840.114 350.1.13.10 4.2.7.2.686 [id number] [facility] 2024-01-17 13:01:50 2024-01-17 13:01:50 Outpatient SFA SFA [id number] Hi Bañuelos 2024-01-11 11:41:34 2024-01-11 11:41:34 Outpatient SFA SFA [id number] Hi Bañuelos 2024-01-09 09:00:00 2024-01-09 09:30:00 Office Visit Raquel Narayanha [facility] MED[facility] OFF[facility] BUILD[facility] 1..840.114 350.1.13.10 4.2.7.2.686 [id number] [facility] 2024-01-09 09:00:00 2024-01-09 09:00:00 Outpatient [facility] [id number] [facility] 2024-01-02 11:00:00 2024-01-02 11:04:31 Outpatient R ALBERTA HURST [facility] [id number] [facility] 2024-01-02 11:00:00 2024-01-02 11:04:31 Nurse Visit Visit, Ang-Rmchp Nurse Alberta Hurst 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 [facility] 1.840.114 350.1.13.10 4.2.7.2.686 [id number] [facility] 2023-12-20 13:04:53 2023-12-20 13:04:53 Outpatient [facility] [id number] Hi Bañuelos 2023-12-19 10:00:00 2023-12-19 11:43:58 Outpatient R SYLVAIN OBED NARAYAN [facility] [id number] [facility] 2023-12-19 10:00:00 2023-12-19 11:43:58 [facility] 1.840.114 350.1.13.10 4.2.7.2.686 [id number] [facility] 2023-12-18 00:00:00 2023-12-18 00:00:00 Orders Only Doctor Unassigned, [place] [facility] 1.840.114 350.1.13.10 4.2.7.2.686 [id number] [facility] 2023-12-18 00:00:00 2023-12-18 00:00:00 [facility] 1..840.114 350.1.13.10 4.2.7.2.686 [id number] [id number] [facility] 2023-12-14 13:38:37 2023-12-14 13:38:37 Outpatient [facility] [id number] Hi Bañuelos 2023-12-05 10:12:08 2023-12-05 23:59:00 Outpatient R KADE LIU SHIWAN [facility] [id number] [facility] 2023-12-05 10:12:08 2023-12-05 23:59:00 Hospital Encounter Kade Liu [facility] 1.2.840.114 350.1.13.10 4.2.7.2.686 [id number] [facility] 2023-12-01 00:00:00 2023-12-01 00:00:00 Case Management Kade Liu [facility] PROFESSIO NAL BUILDING 1.2.840.114 350.1.13.10 4.2.7.2.686 [id number] [id number] [facility] 2023-12-01 00:00:00 2023-12-01 00:00:00 Telephone Kade Liu [facility] PROF[facility] NAL BUILD[facility] 1.2.840.114 350.1.13.10 4.2.7.2.686 [id number] [facility] 2023-11-30 11:26:13 2023-11-30 11:26:13 Outpatient [facility] [id number] Hi Bañuelos 2023-11-29 13:13:44 2023-11-29 13:13:44 Outpatient [facility] [place] [id number] Hi Bañuelos 2023-11-28 13:00:00 2023-11-28 13:44:14 Outpatient R IMAN JONES [facility] [id number] [facility] 2023-11-28 13:00:00 2023-11-28 13:44:14 Office Visit Iman Jones [facility] PROFESSIO NAL BUILDING 1.2.840.114 350.1.13.10 4.2.7.2.686 [id number] [facility] 2023-11-24 08:00:00 2023-11-24 08:00:00 Outpatient R JUNIE ALATORRE [facility] [id number] [facility] 2023-11-23 00:00:00 2023-11-23 00:00:00 Refill Sylvain [facility] MEDICAL OFFICE BUILDING 1.2.840.114 350.1.13.10 4.2.7.2.686 [id number] [id number] [facility] 2023-11-22 08:00:00 2023-11-22 09:00:00 Africana Studies Professor Visit Therapist, Kade Chew [facility] 1..840.114 350.1.13.10 4.2.7.2.686 [id number] [facility] 2023-11-22 08:00:00 2023-11-22 08:00:00 Outpatient R KADE LIU SHIORGaby [facility] [id number] [facility] 2023-11-22 00:00:00 2023-11-22 00:00:00 Orders Only Kade Liu [facility] 1..840.114 350.1.13.10 4.2.7.2.686 [id number] [id number] [facility] 2023-11-14 13:00:00 2023-11-14 14:00:00 [facility] 1.2.840.114 350.1.13.10 4.2.7.2.686 [id number] [id number] [facility] 2023-11-14 13:00:00 2023-11-14 13:00:00 [facility] [id number] 2023-11-14 00:00:00 2023-11-14 00:00:00 Refill Sylvain, Obed [facility] MEDICAL OFFICE BUILD[facility] 1.840.114 350.1.13.10 4.2.7.2.686 [id number] [id number] [facility] 2023-11-10 00:00:00 2023-11-10 00:00:00 Orders Only Doctor Unassigned, [place] [facility] 1.840.114 350.1.13.10 4.2.7.2.686 [id number] [facility] 2023-11-09 12:00:00 2023-11-09 12:15:00 Africana Studies Professor Visit [facility] Sleep Lab Brandy Whiteside [facility] 1.0.114 350.1.13.10 4.2.7.2.686 [id number] [facility] 2023-11-09 12:00:00 2023-11-09 12:00:00 Outpatient BRANDY CANNON STRAVANeela [facility] [id number] [facility] 2023-10-31 16:48:23 2023-10-31 16:48:23 Outpatient AFSHAN [facility] [id number] Hi Bañuelos 2023-10-30 09:00:00 2023-10-30 10:10:29 [facility] [id number] [facility] 2023-10-30 09:00:00 2023-10-30 10:10:29 Office Visit Obed Narayan [facility] PROFESSIO NAL BUILDING 1.0.114 350.1.13.10 4.2.7.2.686 [id number] [id number] [facility] 2023-10-30 00:00:00 2023-10-30 00:00:00 Orders Only Doctor Unassigned, [place] [facility] 1.840.114 350.1.13.10 4.2.7.2.686 [id number] [facility] 2023-10-25 11:00:00 2023-10-25 11:00:00 Outpatient R CUATE TRINY CARDENAS CUATE RONALD TRINY [facility] [id number] [facility] 2023-10-19 09:30:00 2023-10-19 10:10:00 Outpatient R ALBERTA HURST [facility] [id number] [facility] 2023-10-19 09:30:00 2023-10-19 10:10:00 Office Visit Alberta Hurst 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 1..840.114 350.1.13.10 4.2.7.2.686 [id number] [facility] 2023-10-17 09:30:00 2023-10-17 09:36:20 Outpatient R KADE LIU SHIWAN [facility] [id number] [facility] 2023-10-17 09:30:00 2023-10-17 09:36:20 Office Visit Kade Liu [facility] 1..840.114 350.1.13.10 4.2.7.2.686 [id number] [facility] 2023-10-10 08:00:00 2023-10-10 08:00:00 Nurse Visit Visit, José Luis-Rmchp Nurse Junie Alatorre 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 [facility] 1..840.114 350.1.13.10 4.2.7.2.686 [id number] [facility] 2023-10-10 08:00:00 2023-10-10 07:56:08 Outpatient JUNIE ATKINS [facility] [id number] [facility] 2023-09-29 15:30:00 2023-09-29 15:30:00 Outpatient OBED FORTE ELISHA [facility] [id number] [facility] 2023-09-26 14:39:09 2023-09-26 14:39:09 [address] [id number] Hi Bañuelos 2023-09-20 10:50:20 2023-09-20 10:50:20 Outpatient [facility] [id number] Hi Garcia Sarmad 2023-09-19 10:08:12 2023-09-19 10:08:12 Outpatient [facility] [id number] Hi Garcia Sarmad 2023-09-19 00:00:00 2023-09-19 00:00:00 Orders Only Doctor Unassigned, [place] [facility] 1..840.114 350.1.13.10 4.2.7.2.686 [id number] [facility] 2023-09-14 00:00:00 2023-09-14 00:00:00 Telephone Junie Alatorre 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 1..840.114 350.1.13.10 4.2.7.2.686 [id number] [facility] 2023-09-12 15:15:00 2023-09-12 15:30:53 Outpatient R JUNIE ALATORRE [facility] [id number] [facility] 2023-09-12 15:15:00 2023-09-12 15:30:53 Office Visit Junie Alatorre 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 1..840.114 350.1.13.10 4.2.7.2.686 [id number] [facility] 2023-09-09 00:00:00 2023-09-09 00:00:00 Outpatient GC_GCBZW_Ka diyala_S [facility] [id number] [facility] 2023-09-08 00:00:00 2023-09-08 00:00:00 Outpatient GC_GCBZW_Ka diyala_S [facility] [id number] [facility] 2023-09-06 13:00:00 2023-09-06 13:15:00 Nurse Visit Nurse, José Luis Rmchp Exp Cprit Obgyn Alberta Hurst 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 1.2.840.114 350.1.13.10 4.2.7.2.686 [id number] [facility] 2023-09-06 13:00:00 2023-09-06 13:00:00 Outpatient R ALBERTA HURST [facility] [id number] [facility] 2023-08-23 10:20:00 2023-08-23 10:54:31 Outpatient R TRINY VALERA TRINY [facility] [id number] [facility] 2023-08-23 10:20:00 2023-08-23 10:54:31 Office Visit Triny Valera [facility] 1..840.114 350.1.13.10 4.2.7.2.686 [id number] [facility] 2023-08-23 09:20:00 2023-08-23 09:20:00 Outpatient R TRINY VALERA TRINY [facility] [id number] [facility] 2023-08-23 00:00:00 2023-08-23 00:00:00 Orders Only Doctor Unassigned, [place] [facility] 1.2.840.114 350.1.13.10 4.2.7.2.686 [id number] [facility] 2023-08-21 10:10:41 2023-08-21 10:10:41 Outpatient [facility] [id number] Hi Radah Sarmad 2023-08-07 00:00:00 2023-08-07 00:00:00 Telephone Patrick Tillman [facility] 1.2.840.114 350.1.13.10 4.2.7.2.686 [id number] [facility] [facility] 2023-08-01 23:50:00 2023-08-02 02:53:00 Emergency X ANGELO WARE [facility] ERT [id number] [facility] 2023-08-01 13:00:00 2023-08-01 23:49:00 Outpatient R PATRICK TILLMAN [facility] [id number] [facility] 2023-07-20 09:46:54 2023-07-20 09:46:54 Outpatient SFA [facility] [id number] Hi Bañuelos 2023-07-19 11:30:00 2023-07-19 11:30:00 Office Visit Patrick Tillman [facility] 1.2.840.114 350.1.13.10 4.2.7.2.686 [id number] [facility] 2023-07-19 11:30:00 2023-07-19 11:12:27 Outpatient R PATRICK TILLMAN [facility] [id number] [facility] 2023-07-18 08:30:00 2023-07-18 08:36:10 Outpatient ALBERTA RODRÍGUEZ [facility] [id number] [facility] 2023-07-18 08:30:00 2023-07-18 08:36:10 Nurse Visit Visit, José Luis-Rmchp Nurse Alberta Hurst [facility] 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 [facility] 1.2.840.114 350.1.13.10 4.2.7.2.686 [id number] [facility] 2023-07-13 19:39:00 2023-07-13 21:55:00 Emergency X ANGELO WARE [facility] ERT [id number] [facility] 2023-07-13 19:39:00 2023-07-13 21:55:00 Emergency Angelo Ware [facility] 1.2.840.114 350.1.13.10 4.2.7.2.686 [id number] [facility] 2023-07-06 13:03:45 2023-07-06 13:03:45 Outpatient [facility] [id number] Hi Bañuelos 2023-06-26 14:02:04 2023-06-26 14:02:04 Outpatient [facility] [id number] Hi Bañuelos 2023-06-22 08:37:04 2023-06-22 08:37:04 Outpatient [facility] [id number] Hi Bañuelos 2023-06-19 00:00:00 2023-06-19 00:00:00 Patrick Varghese [facility] 1.2.840.114 350.1.13.10 4.2.7.2.686 [id number] [facility] 2023-05-31 00:00:00 2023-05-31 00:00:00 Patrick Varghese [facility] 1.2.840.114 350.1.13.10 4.2.7.2.686 [id number] [facility] 2023-05-30 09:00:00 2023-05-30 09:00:00 Outpatient PATRICK ALBARRAN [facility] [id number] [facility] 2023-05-08 08:45:21 2023-05-08 08:45:21 Outpatient SFA [facility] [id number] Hi Bañuelos 2023-04-25 13:30:00 2023-04-25 13:30:00 Nurse Visit Visit, José Luis-Rmchp Nurse Alberta Hurst [facility] 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 [facility] 1.2.840.114 350.1.13.10 4.2.7.2.686 [id number] [facility] 2023-04-25 13:30:00 2023-04-25 13:09:23 Outpatient R RHONDA HURSTOLA [facility] [id number] [facility] 2023-04-25 10:00:00 2023-04-25 10:00:00 Outpatient R [facility] [id number] [facility] 2023-04-24 11:15:00 2023-04-24 11:30:00 Africana Studies Professor Visit Pob, Adc Lab Main RadhaTari leung [facility] BUILD[facility] 1..840.114 350..13.10 4.2.7.2.686 [id number] [facility] 2023-04-24 11:15:00 2023-04-24 11:15:00 Outpatient R TARI TRIVEDI [facility] [id number] [facility] 2023-04-24 00:00:00 2023-04-24 00:00:00 Orders Only Doctor Unassigned, [place] [facility] .840.114 350..13.10 4.2.7.2.686 [id number] [facility] 2023-04-18 08:40:00 2023-04-18 08:52:[address] [facility] [id number] [facility] 2023-04-18 08:40:00 2023-04-18 08:52:[address] [facility] BU[facility] 1..840.114 350..13.10 4.2.7.2.686 [id number] [facility] 2023-04-12 00:00:00 2023-04-12 00:00:00 Telephone [facility] 1.2.840.114 350.1.13.10 4.2.7.2.686 [id number] [facility] 2023-03-31 00:00:00 2023-03-31 00:00:00 Telephone Tillman, Patrick Kristy.[employer] [facility] BUILD[facility] 1.2.840.114 350.1.13.10 4.2.7.2.686 [id number] [facility] 2023-03-31 00:00:00 2023-03-31 00:00:00 Orders Only Doctor Unassigned, [place] [facility] 1.2.840.114 350.1.13.10 4.2.7.2.686 [id number] [facility] 2023-03-22 07:37:19 2023-03-22 23:59:00 Outpatient R PATRICK TILLMAN [facility] [id number] [facility] 2023-03-17 00:00:00 2023-03-17 00:00:00 Telephone Tillman, CICCWORLDanastasiya [employer] [facility] 1.2.840.114 350.1.13.10 4.2.7.2.686 [id number] [facility] 2023-03-13 08:30:00 2023-03-13 08:30:00 Outpatient R PATRICK TILLMAN [facility] [id number] [facility] 2023-03-09 08:11:41 2023-03-09 23:59:00 [facility] [id number] [facility] 2023-03-02 00:00:00 2023-03-02 00:00:00 Orders Only Doctor Unassigned, [place] [facility] 1.2.840.114 350.1.13.10 4.2.7.2.686 [id number] [facility] 2023-02-28 09:30:00 2023-02-28 09:39:07 Outpatient R PATRICK TILLMAN [facility] [id number] [facility] 2023-02-28 09:30:00 2023-02-28 09:39:07 Office Visit Patrick Tillman [facility] .840.114 350.1.13.10 4.2.7.2.686 [id number] [facility] 2023-01-31 13:00:00 2023-01-31 13:50:11 Outpatient R ALBERTA HURST [facility] [id number] [facility] 2023-01-31 13:00:00 2023-01-31 13:50:11 Office Visit Alberta Hurst [facility] 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 [facility] .840.114 350.1.13.10 4.2.7.2.686 [id number] [facility] 2023-01-31 13:00:00 2023-01-31 13:00:00 Outpatient R ALBERTA HURST [facility] [id number] [facility] 2023-01-27 00:00:00 2023-01-27 00:00:00 Orders Only Doctor Unassigned, [place] [address]114 350.1.13.10 4.2.7.2.686 [id number] [facility] 2023-01-04 09:30:00 2023-01-04 09:30:00 Outpatient R OBED NARAYAN [facility] [id number] [facility] 2023-01-04 00:00:00 2023-01-04 00:00:00 Orders Only Doctor Unassigned, [place] [address]114 350.1.13.10 4.2.7.2.686 [id number] [id number] [facility] 2022-12-02 00:00:00 2022-12-02 00:00:00 Orders Only Doctor Unassigned, [place] [facility] 1..114 350.1.13.10 4.2.7.2.686 [id number] [facility] 2022-11-08 10:30:00 2022-11-08 10:30:00 Outpatient R VANDANA FENTON [facility] [id number] [facility] 2022-11-08 08:30:00 2022-11-08 09:39:24 Outpatient R ALBERTA HURST [facility] [id number] [facility] 2022-11-08 08:30:00 2022-11-08 09:39:24 Nurse Visit Visit, Ang-Rmchp Nurse Alberta Hurst [facility] 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 [facility] MATERNAL & [facility]ILD [facility] 1..114 350.1.13.10 4.2.7.2.686 [id number] [facility] 2022-10-25 09:17:48 2022-10-25 09:17:48 Outpatient [facility] Hi Bañuelos 2022-10-13 15:50:42 2022-10-13 15:50:42 Outpatient [facility] Hi Bañuelos 2022-10-10 09:55:32 2022-10-10 09:55:32 Outpatient [facility] Hi Bañuelos 2022-08-29 12:13:33 2022-08-29 23:59:00 Outpatient R PRECIOUS VERDUGO [facility] [id number] [facility] 2022-08-29 12:13:33 2022-08-29 23:59:00 Hospital Encounter Precious Verdugo A [facility] 1.840.114 350.1.13.10 4.2.7.2.686 [id number] [facility] 2022-08-17 09:30:00 2022-08-17 09:45:00 Africana Studies Professor Visit Pob, Adc Lab Main Tari Trivedi [facility] 1..114 350.1.13.10 4.2.7.2.686 [id number] [facility] 2022-08-17 09:30:00 2022-08-17 09:30:00 Outpatient TARI DELGADILLO [facility] [id number] [facility] 2022-08-11 11:00:00 2022-08-11 12:03:20 Outpatient R ALBERTA HURST [facility] [id number] [facility] 2022-08-11 11:00:00 2022-08-11 12:03:20 Office Visit Alberta Hurst [facility] 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 [facility] MATERNAL & CHILD [facility] 1..114 350.1.13.10 4.2.7.2.686 [id number] [facility] 2022-08-11 00:00:00 2022-08-11 00:00:00 Orders Only Doctor Unassigned, [place] [facility] 1..114 350.1.13.10 4.2.7.2.686 [id number] [facility] 2022-08-09 10:00:00 2022-08-09 10:00:00 Outpatient VANDANA BONNER [facility] [id number] [facility] 2022-08-09 10:00:00 2022-08-09 10:00:00 [facility] 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 [facility] 1..114 350.1.13.10 4.2.7.2.686 [id number] [facility] 2022-05-17 09:00:00 2022-05-17 09:27:11 Nurse Visit Visit, AngPoojaRmchp Vandana Reno [facility] 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 [facility] MATERNAL & CHILD [facility] 1.2.840.114 350.1.13.10 4.2.7.2.686 [id number] [facility] 2022-05-17 09:00:00 2022-05-17 09:00:00 Outpatient VANDANA BONNER [facility] [id number] [facility] 2022-03-25 00:00:00 2022-03-25 00:00:00 Patient Secure Msg Doctor Unassigned, [place] [facility]NOTE 2] 1.2.840.114 350.1.13.10 4.2.7.2.686 [id number] [facility] 2022-02-14 09:30:00 2022-02-14 09:48:50 Nurse Visit Visit, Ang-Rmchp Vandana Reno [facility] 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 [facility] MATERNAL & CHILD [facility] 1.2.840.114 350.1.13.10 4.2.7.2.686 [id number] [facility] 2022-02-14 09:30:00 2022-02-14 09:30:00 Outpatient R [facility] [id number] [facility] 2022-02-14 09:30:00 2022-02-14 09:30:00 Outpatient R VANDANA FENTON [facility] [id number] [facility] 2022-01-27 13:00:00 2022-01-27 13:00:00 Outpatient R DELILAH JOYA [facility] [id number] [facility] 2022-01-05 07:56:31 2022-01-05 23:59:00 Outpatient R SABRINA WOOTEN [facility] [id number] [facility] 2022-01-05 07:56:31 2022-01-05 23:59:00 Hospital Encounter Sabrina Wooten Rp [facility] 1.840.114 350.1.13.10 4.2.7.2.686 [id number] [facility] 2021-12-27 08:30:00 2021-12-27 08:30:00 Outpatient R PREET ORTIZ [facility] [id number] [facility] 2021-12-24 10:30:00 2021-12-24 10:45:00 Africana Studies Professor Visit [facility] Sabrina Wooten Rp [facility] 1.840.114 350.1.13.10 4.2.7.2.686 [id number] [facility] 2021-12-24 09:20:00 2021-12-24 09:40:00 Office Visit Sabrina Wooten Rp [facility] 1.840.114 350.1.13.10 4.2.7.2.686 [id number] [facility] 2021-12-24 09:20:00 2021-12-24 09:20:00 Outpatient R SABRINA WOOTEN [facility] [id number] [facility] 2021-12-15 08:30:00 2021-12-15 08:30:00 Outpatient R VANDANA FENTON [facility] [id number] [facility] 2021-12-13 00:00:00 2021-12-13 00:00:00 Telephone Alberta Hurst [facility] 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 [facility] MATERNAL & [facility]ILD [facility] 1..840.114 350.1.13.10 4.2.7.2.686 [id number] [facility] 2021-12-09 14:15:00 2021-12-09 14:28:57 Outpatient R ALBERTA HURST [facility] [id number] [facility] 2021-12-09 14:15:00 2021-12-09 14:28:57 Office Visit Alberta Hurst [facility] 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 [facility] 1.2.840.114 350.1.13.10 4.2.7.2.686 [id number] [facility] 2021-12-07 00:00:00 2021-12-07 00:00:00 Telephone Vandana Fenton [facility] 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 [facility] 1.2.840.114 350.1.13.10 4.2.7.2.686 [id number] [facility] 2021-12-03 00:00:00 2021-12-03 00:00:00 Telephone Alberta Hurst [facility] 1.2.840.114 350.1.13.10 4.2.7.2.686 [id number] [facility] 2021-12-03 00:00:00 2021-12-03 00:00:00 Patient Secure Msg Doctor Unassigned, [place] [facility] 1.2.840.114 350.1.13.10 4.2.7.2.686 [id number] [facility] 2021-12-02 00:00:00 2021-12-02 00:00:00 Orders Only Doctor Unassigned, [place] [facility] 1.2.840.114 350.1.13.10 4.2.7.2.686 [id number] [facility] 2021-11-30 00:00:00 2021-11-30 00:00:00 Telephone Pritesh Greenfield [facility] 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 [facility] 1.2.840.114 350.1.13.10 4.2.7.2.686 [id number] [facility] 2021-11-22 09:15:00 2021-11-22 10:06:01 Outpatient R ALBERTA HURST [facility] [id number] [facility] 2021-11-22 09:15:00 2021-11-22 10:06:01 Office Visit Alberta Hurst [facility] 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 [facility] MATERNAL & CHILD [facility] 1.2.840.114 350.1.13.10 4.2.7.2.686 [id number] [facility] 2021-11-22 09:15:00 2021-11-22 10:06:01 Outpatient R ALBERTA HURST [facility] [id number] [facility] 2021-11-22 09:15:00 2021-11-22 10:06:01 Outpatient R ALBERTA HURST [facility] [id number] [facility] 2021-11-22 09:15:00 2021-11-22 09:15:00 Outpatient R ALBERTA HURST [facility] [id number] [facility] 2021-10-19 00:00:00 2021-10-19 00:00:00 Telephone Preet Ortiz [facility] 1..840.114 350.1.13.10 4.2.7.2.686 [id number] [facility] 2021-10-13 00:00:00 2021-10-13 00:00:00 Telephone Alberta Hurst [facility] 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 [facility] 1..840.114 350.1.13.10 4.2.7.2.686 [id number] [facility] 2021-10-12 09:00:00 2021-10-12 09:00:00 Outpatient R LA BRANCH [facility] [id number] [facility] 2021-10-02 00:00:00 2021-10-02 00:00:00 Telephone Brad Barnes [facility] 1.2840.114 350.1.13.10 4.2.7.2.686 [id number] [facility] 2021-10-01 00:00:00 2021-10-01 00:00:00 Patient Secure Msg Doctor Unassigned, [place] [facility] 1.2840.114 350.1.13.10 4.2.7.2.686 [id number] [facility] 2021-10-01 00:00:00 2021-10-01 00:00:00 Patient Secure Msg Doctor Unassigned, [place] [facility] 1.2840.114 350.1.13.10 4.2.7.2.686 [id number] [facility] 2021-09-30 11:00:00 2021-09-30 11:19:40 Outpatient R DIANA SHANTANUALEX [facility] [id number] [facility] 2021-09-30 10:49:51 2021-09-30 11:19:40 Office Visit Diana Preet Harvey [facility] ANGLEWENDY NU[facility]EZ[facility] 1.2840.114 350.1.13.10 4.2.7.2.686 [id number] [facility] 2021-09-30 00:00:00 2021-09-30 00:00:00 Telephone Diana Preet Harvey [facility] ANGLEW[facility] NUÑEZ?[facility] MED[facility] OFF[facility] BUILD[facility] 1.2840.114 350.1.13.10 4.2.7.2.686 [id number] [facility] 2021-09-15 00:00:00 2021-09-15 00:00:00 Telephone Diana Shantanuamiesherly Harvey [facility] MED[facility] OFF[facility] BU[facility] 1.2840.114 350.1.13.10 4.2.7.2.686 [id number] [facility] 2021-09-09 15:00:00 2021-09-09 15:00:00 Outpatient R AINSLEYCYDNEYRHONDAALBERTA [facility] [id number] [facility] 2021-09-09 14:30:00 2021-09-09 14:30:00 Outpatient R LA BRANCH [facility] [id number] [facility] 2021-09-09 00:00:00 2021-09-09 00:00:00 Telephone Preet Ortiz [facility] LAN?VINCECandice [facility] MED[facility] OFF[facility] BUILD[facility] 1.84.114 350.1.13.10 4.2.7.2.686 [id number] [facility] 2021-09-06 00:00:00 2021-09-06 00:00:00 [facility] 1..114 350.1.13.10 4.2.7.2.686 [id number] [facility] 2021-09-02 00:00:00 2021-09-02 00:00:00 Telephone Pritesh Greenfield [facility] 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 [facility] 1..114 350.1.13.10 4.2.7.2.686 [id number] [facility] 2021-09-01 13:02:05 2021-09-01 13:47:05 Ancillary Visit Connie Huddleston Craig L [facility] Building 1..114 350.1.13.10 4.2.7.2.686 [id number] [facility] 2021-08-30 09:57:19 2021-08-30 11:01:49 Office Visit Tania Jimenez [facility] Lan?V[facility] Building 1.2.840.114 350.1.13.10 4.2.7.2.686 [id number] [facility] 2021-08-30 08:25:04 2021-08-30 09:28:20 Office Visit Pritesh Greenfield [facility] 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 [facility] MATERNAL & [facility]ILD [facility] 1.2840.114 350.1.13.10 4.2.7.2.686 [id number] [facility] 2021-08-30 08:30:00 2021-08-30 08:30:00 Outpatient PRITESH KAUFFMAN [facility] [id number] [facility] 2021-08-20 00:00:00 2021-08-20 00:00:00 Patient Secure MsJoshua Beavers [facility] 1.840.114 350.1.13.10 4.2.7.2.686 [id number] [facility] 2021-08-18 08:04:55 2021-08-18 08:49:55 Ancillary Visit Connie Huddleston Craig L [facility] 1.2.114 350.1.13.10 4.2.7.2.686 [id number] [facility] 2021-08-18 08:45:00 2021-08-18 08:45:00 Outpatient JIMMY MILLER [facility] [id number] [facility] 2021 11:03:00 2021 12:41:00 Hospital Encounter Joshua Lopez [facility] 1.2.114 350.1.13.10 4.2.7.2.686 [id number] [facility] 2021 10:03:00 2021 10:48:00 Surgery Joshua Lopez [facility] 1..114 350.1.13.10 4.2.7.2.686 [id number] [facility] 2021 00:00:00 2021 00:00:00 Orders Only Doctor Unassigned, [place] [facility] 1.0.114 350.1.13.10 4.2.7.2.686 [id number] [facility] 2021-08-14 09:07:55 2021-08-14 09:22:55 Laboratory Only Only, Adc Test Joshua Lopez [facility] 1.114 350.1.13.10 4.2.7.2.686 [id number] [facility] 2021-08-14 09:15:00 2021-08-14 09:15:00 Outpatient R JOSHUA LOPEZ GABRIEL [facility] [id number] [facility] 2021-08-13 10:30:00 2021-08-13 10:30:00 Outpatient R DELILAH JOYA [facility] [id number] [facility] 2021-08-09 00:00:00 2021-08-09 00:00:00 Telephone Connie Huddleston [facility] Profadriel [facility] .114 350.1.13.10 4.2.7.2.686 [id number] [facility] 2021-08-09 00:00:00 2021-08-09 00:00:00 Telephone Vandana Fenton [facility] 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 [facility]ERNAL & [facility]ILD [facility] 1..114 350.1.13.10 4.2.7.2.686 [id number] [facility] 2021-08-09 00:00:00 2021-08-09 00:00:00 Telephone Vandana Fenton 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 MATERNAL & CHILD [facility] 1.2.840.114 350.1.13.10 4.2.7.2.686 [id number] [facility] 2021-08-06 12:45:21 2021-08-06 13:15:26 Office Visit Vandana Fenton 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 & CHILD [facility] 1.2.840.114 350.1.13.10 4.2.7.2.686 [id number] [facility] 2021-08-06 13:00:00 2021-08-06 13:00:00 Outpatient Moise FLEMINGCami VANDANA [facility] [id number] [facility] 2021-08-02 00:00:00 2021-08-02 00:00:00 Telephone Connie Huddleston [facility] 1.2.840.114 350.1.13.10 4.2.7.2.686 [id number] [facility] 2021-07-29 10:52:13 2021-07-29 14:15:36 Office Visit Brad Barnes Karl [facility] 1.2.840.114 350.1.13.10 4.2.7.2.686 [id number] [facility] 2021-07-29 10:52:13 2021-07-29 14:15:36 Office Visit Brad Barnes Karl E [facility] 1.2840.114 350.1.13.10 4.2.7.2.686 [id number] [facility] 2021-07-29 14:00:00 2021-07-29 14:00:00 Outpatient AKHIL MOHAN [facility] [id number] [facility] 2021-07-26 09:19:16 2021-07-26 10:03:45 Office Visit Josseline Capone [facility] 1.2.840.114 350.1.13.10 4.2.7.2.686 [id number] [facility] 2021-07-26 09:15:00 2021-07-26 09:15:00 Outpatient R JOSSELINE CAPONE [facility] [id number] [facility] 2021-07-12 00:00:00 2021-07-12 00:00:00 Patient Secure Msg Doctor Unassigned, [place] [facility] 1.2.840.114 350.1.13.10 4.2.7.2.686 [id number] [facility] 2021-07-12 00:00:00 2021-07-12 00:00:00 Telephone Connie Huddleston [facility] 1.2.840.114 350.1.13.10 4.2.7.2.686 [id number] [facility] 2021-07-10 00:00:00 2021-07-10 00:00:00 Telephone Josseline Capone [facility] 1.2.840.114 350.1.13.10 4.2.7.2.686 [id number] [facility] 2021-07-08 09:45:37 2021-07-08 10:23:38 Office Visit Josseline Capone [facility] 1.2.840.114 350.1.13.10 4.2.7.2.686 [id number] [facility] 2021-07-08 10:00:00 2021-07-08 10:00:00 Outpatient R JOSSELINE CAPONE [facility] [id number] [facility] 2021-07-05 00:00:00 2021-07-05 00:00:00 Outpatient R FABIOLA IZAUGIRRE [facility] [id number] [facility] 2021-06-25 10:20:00 2021-06-25 10:20:00 Outpatient R SABRINA WOOTEN [facility] [id number] [facility] 2021-06-09 10:30:00 2021-06-09 10:30:00 Outpatient R ASHLEY HODGES [facility] [id number] [facility] [facility]:00:00 2021-06-09 00:00:00 Patient Secure Msg Doctor Unassigned, [place] [facility] 1.2.840.114 350.1.13.10 4.2.7.2.686 [id number] [facility] 2021-06-03 11:00:00 2021-06-03 11:00:00 Outpatient R KASH DU [facility] [id number] [facility] 2021-05-18 10:00:00 2021-05-18 10:00:00 Outpatient R FABIOLA IZAGUIRRE [facility] RAD [id number] [facility] 2021-05-11 18:00:00 2021-05-11 18:00:00 Outpatient R [facility] [id number] [facility] 2021-05-07 17:20:00 2021-05-07 17:20:00 Outpatient R PAOLA SAEZ [facility] [id number] [facility] 2021-05-07 17:15:00 2021-05-07 17:15:00 Outpatient R ABUNDIO OLIVA [facility] [id number] [facility] 2021-05-05 10:00:00 2021-05-05 10:00:00 Outpatient FABIOLA CHAVEZ [facility] [id number] [facility] 2021-04-29 08:30:00 2021-04-29 08:35:00 Pre-Anesth esia Evaluation Call, [facility] Apa Phone [facility] ([facility]) 1..840.114 350.1.13.10 4.2.7.2.686 [id number] [facility] [id number] [facility] 2021-04-23 10:00:00 2021-04-23 10:00:00 Outpatient GIL WYNNE HOWARD [facility] [id number] [facility] 2021-04-21 09:00:00 2021-04-21 09:00:00 Outpatient R [facility] [id number] [facility] 2021-04-16 00:00:00 2021-04-16 00:00:00 Outpatient R [facility] [id number] [facility] 2021-04-15 00:00:00 2021-04-15 00:00:00 Outpatient FABIOLA CHAVEZ [facility] [id number] [facility] 2021-04-13 00:00:00 2021-04-13 00:00:00 Outpatient RENATO DILL [facility] [id number] [facility] 2021-04-08 00:00:00 2021-04-08 00:00:00 Outpatient FABIOLA CHAVEZ [facility] [id number] [facility] 2021-04-02 00:00:00 2021-04-02 00:00:00 Outpatient FABIOLA CHAVEZ [facility] [id number] [facility] 2021-03-29 10:30:00 2021-03-29 10:30:00 Outpatient PREET JOSEPH [facility] [id number] [facility] 2021-03-26 00:00:00 2021-03-26 00:00:00 Outpatient RENATO DILL [facility] [id number] [facility] 2021-03-23 00:00:00 2021-03-23 00:00:00 Patient Secure Msg Doctor Unassigned, [place] [facility] 1.0.114 350.1.13.10 4.2.7.2.686 [id number] [facility] 2021-03-18 00:00:00 2021-03-18 00:00:00 Patient Secure Msg Doctor Unassigned, [place] [facility] 1.0.114 350.1.13.10 4.2.7.2.686 [id number] [facility] 2021-03-10 09:00:00 2021-03-10 09:00:00 Outpatient RENATO DILL [facility] RAD [id number] [facility] 2021-03-04 00:00:00 2021-03-04 00:00:00 Outpatient RENATO DILL [facility] [id number] [facility] 2021-03-02 13:35:00 2021-03-02 13:40:00 Pre-Anesth esia Evaluation Call, [facility] Apa Phone [facility] ([facility]) 1..114 350.1.13.10 4.2.7.2.686 [id number] [facility] 2021-02-23 13:30:00 2021-02-23 13:30:00 Outpatient SHAKIR BAUER [facility] [id number] [facility] 2021-02-11 08:34:08 2021-02-11 23:59:00 Hospital Encounter Shea Medina [facility] 1..114 350.1.13.10 4.2.7.2.686 [id number] 2021-02-11 00:00:00 2021-02-11 00:00:00 Outpatient SHAE MOTLEY [facility] [id number] [facility] 2021-02-09 00:00:00 2021-02-09 00:00:00 Case Management Renato Santiago [facility] 1..114 350.1.13.10 4.2.7.2.686 [id number] 2021-02-08 17:25:00 2021-02-08 20:35:00 Emergency Mariana Cotton [facility] 1..114 350.1.13.10 4.2.7.2.686 [id number] 2021-02-08 17:30:00 2021-02-08 17:30:00 Outpatient R ALVIN, ATTENDING [facility] [id number] [facility] 2021-02-08 16:00:00 2021-02-08 16:00:00 Outpatient R DAVID CORRAL III [facility] [id number] [facility] 2021-02-08 16:00:00 2021-02-08 16:00:00 Outpatient R COCO ANDERSON [facility] [id number] [facility] 2021-02-08 00:00:00 2021-02-08 00:00:00 Outpatient R SHEA MEDINA [facility] [id number] [facility] 2021-02-04 00:00:00 2021-02-04 00:00:00 Telephone Fabiola Izaguirre [facility] .0.114 350.1.13.10 4.2.7.2.686 [id number] 2021-02-02 13:30:00 2021-02-02 13:30:00 Outpatient JAMEY HIGGINBOTHAM [facility] [id number] [facility] 2021-02-02 12:30:00 2021-02-02 12:30:00 Outpatient JAMEY HIGGINBOTHAM [facility] [id number] [facility] 2021-02-02 00:00:00 2021-02-02 00:00:00 Patient Outreach Jamey Higginbotham [facility] 1.840.114 350.1.13.10 4.2.7.2.686 [id number] 2021-01-28 08:35:41 2021-01-28 23:59:00 Hospital Encounter Fabiola Izaguirre [facility] 1.2.840.114 350.1.13.10 4.2.7.2.686 [id number] 2021-01-28 00:00:00 2021-01-28 00:00:00 Outpatient R [facility] [id number] [facility] 2021-01-27 09:18:25 2021-01-27 09:32:38 Nurse Visit Nurse, [facility] 1.2.840.114 350.1.13.10 4.2.7.2.686 [id number] 2021-01-27 09:00:00 2021-01-27 09:00:00 Outpatient R [facility] [id number] [facility] 2021-01-22 09:34:26 2021-01-22 11:19:10 Office Visit Sabrina Wooten CINDY [facility] 1.2.840.114 350.1.13.10 4.2.7.2.686 [id number] 2021-01-22 10:20:00 2021-01-22 10:20:00 Outpatient R SABRINA WOOTEN [facility] [id number] [facility] 2021-01-08 11:00:00 2021-01-08 11:00:00 Outpatient R YOVANNY CHOI [facility] [id number] [facility] 2021-01-04 10:45:00 2021-01-04 10:45:00 Outpatient R PREET ORTIZ [facility] [id number] [facility] 2020-12-18 10:30:00 2020-12-18 10:30:00 Outpatient R FABIOLA IZAGUIRRE [facility] [id number] [facility] 2020-12-11 00:00:00 2020-12-11 00:00:00 Patient Secure Preet Perez [facility] 1.2.840.114 350.1.13.10 4.2.7.2.686 [id number] [facility] 2020-12-09 00:00:00 2020-12-09 00:00:00 Patient Secure Preet Perez [facility] OFF[facility] 1.2.840.114 350.1.13.10 4.2.7.2.686 [id number] [facility] 2020-12-04 10:00:00 2020-12-04 10:00:00 [facility] [id number] [facility] 2020-12-03 13:30:00 2020-12-03 13:30:00 Outpatient R PREET ORTIZ [facility] [id number] [facility] 2020-12-03 10:00:00 2020-12-03 10:00:00 Outpatient R [facility] [id number] [facility] 2020-12-01 00:00:00 2020-12-01 00:00:00 Outpatient R [facility] [id number] [facility] 2020-11-17 10:30:00 2020-11-17 10:30:00 Outpatient R [facility] [id number] [facility] 2020-11-10 14:40:00 2020-11-10 14:40:00 Outpatient R KATARINA WIGGINS [facility] [id number] [facility] 2020-11-09 00:00:00 2020-11-09 00:00:00 Outpatient R FABIOLA IZAGUIRRE [facility] [id number] [facility] 2020-10-29 14:30:00 2020-10-29 14:30:00 Outpatient R ROSANA RANDHAWA [facility] [id number] [facility] 2020-10-28 00:00:00 2020-10-28 00:00:00 Outpatient R [facility] [id number] [facility] 2020-10-23 14:00:00 2020-10-23 14:00:00 Outpatient R [facility] [id number] [facility] 2020-10-23 00:00:00 2020-10-23 00:00:00 (TEL) STLMLC STLMLC [id number] [facility] 2020-10-22 00:00:00 2020-10-22 00:00:00 (TEL) STLMLC STLMLC [id number] [facility] 2020-10-22 00:00:00 2020-10-22 00:00:00 OFFICE VISIT EST PT LEVEL 3 STLMLC STLMLC [id number] [facility] 2020-10-20 10:00:00 2020-10-20 10:00:00 Outpatient R IMAN JONES [facility] [id number] [facility] 2020-10-19 13:30:00 2020-10-19 13:30:00 Outpatient ROSANA BURGOS [facility] [id number] [facility] 2020-10-10 00:00:00 2020-10-10 00:00:00 Telephone Brian Edwards [facility] 1.2.840.114 350.1.13.10 4.2.7.2.686 [id number] 2020-10-02 00:00:00 2020-10-02 00:00:00 Outpatient R SABRINA WOOTEN [facility] [id number] [facility] 2020-09-29 08:30:00 2020-09-29 08:30:00 Outpatient BRIAN LAM [facility] [id number] [facility] 2020-09-28 00:00:00 2020-09-28 00:00:00 Outpatient BRIAN LAM [facility] [id number] [facility] 2020-09-24 08:00:00 2020-09-24 08:00:00 Outpatient ROSANA BURGOS [facility] [id number] [facility] 2020-09-19 00:00:00 2020-09-19 00:00:00 (TEL) STLMLC STLMLC [id number] [facility] 2020-09-14 09:00:00 2020-09-14 09:00:00 Outpatient R [facility] [id number] [facility] 2020-09-14 00:00:00 2020-09-14 00:00:00 OFFICE VISIT EST PT LEVEL 3 STLMLC STLMLC [id number] [facility] 2020-09-09 13:15:00 2020-09-09 13:15:00 Outpatient R ALBERTA HURST [facility] [id number] [facility] 2020-09-03 00:00:00 2020-09-03 00:00:00 ([place]) Nurse Visit STLMLC STLMLC [id number] [facility] 2020-09-03 00:00:00 2020-09-03 00:00:00 Patient Secure Msg Doctor Unassigned, [place] [facility] [id number] 350.1.13.10 4.2.7.2.686 [id number] [facility] 2020-09-01 00:00:00 2020-09-01 00:00:00 (TEL) STLMLC STLMLC [id number] [facility] 2020-08-28 11:00:00 2020-08-28 11:00:00 Outpatient R SABRINA WOOTEN [facility] [id number] [facility] 2020-08-27 14:30:00 2020-08-27 14:30:00 Outpatient R PRITESH GREENFIELD [facility] [id number] [facility] 2020-08-25 14:30:00 2020-08-25 14:30:00 Outpatient R PRITESH GREENFIELD [facility] [id number] [facility] 2020-08-12 00:00:00 2020-08-12 00:00:00 OL DIG E/M SVC 11-20 MIN STLMLC STLMLC [id number] [facility] 2020-08-11 00:00:00 2020-08-11 00:00:00 [facility] [id number] [facility] 2020-08-07 10:40:00 2020-08-07 10:40:00 Outpatient SABRINA TRAN [facility] [id number] [facility] 2020-07-23 11:20:00 2020-07-23 11:20:[address] [facility] [id number] [facility] 2020-05-28 10:30:00 2020-05-28 10:30:00 Outpatient HI KAUFFMAN [facility] [id number] [facility] 2020-05-11 16:25:00 2020-05-11 16:25:[address] [facility] [id number] [facility] 2020-05-08 11:00:00 2020-05-08 11:00:00 Outpatient SABRINA TRAN [facility] [id number] [facility] 2020-05-01 13:06:00 2020-05-01 13:06:[address] [facility] [id number] [facility] 2020-04-23 14:25:00 2020-04-23 14:25:[address] [facility] [id number] [facility] 2020-04-16 13:06:00 2020-04-16 13:06:[address] [facility] [id number] [facility] 2020-04-16 10:40:00 2020-04-16 10:40:[address] [facility] [id number] [facility] 2020-04-13 13:19:00 2020-04-13 13:19:[address] [facility] [id number] [facility] 2020-04-13 11:29:00 2020-04-13 11:29:[address] [facility] [id number] [facility] 2020-04-01 13:30:00 2020-04-01 13:30:00 Outpatient Moise PABLO RAJ [facility] [id number] [facility] 2020-03-27 09:20:00 2020-03-27 09:20:00 Outpatient SABRINA TRAN [facility] [id number] [facility] 2020-01-17 09:00:00 2020-01-17 09:00:00 Outpatient SABRINA TRAN [facility] [id number] [facility] 2020-01-15 12:20:00 2020-01-15 12:20:[address] [facility] [facility] [id number] [facility] 2020-01-08 08:53:00 2020-01-08 08:53:00 [facility] [id number] [facility] 2019-12-14 01:43:55 2019-12-14 04:36:00 Emergency X YANIQUE ROLON [facility] [id number] [facility] 2019-11-07 12:42:39 2019-11-07 15:48:00 Emergency X MARCELO POWELL III [facility] E[facility] [id number] [facility] 2019-10-28 09:40:00 2019-10-28 09:40:[address] [facility] [id number] [facility] 2019-10-25 07:47:33 2019-10-25 07:47:00 Outpatient HI KAUFFMAN [facility] [id number] [facility] 2019-09-03 16:57:00 2019-09-03 16:57:[address] [facility] [id number] [facility] 2019-08-27 08:40:00 2019-08-27 08:40:[address] [facility] [id number] [facility] 2019-08-22 09:20:00 2019-08-22 09:20:[address] [facility] [id number] [facility] 2019-08-05 16:00:00 2019-08-05 16:00:00 [address] [facility] [id number] [facility] 2019-03-01 09:40:00 2019-03-01 09:40:00 [facility] [id number] [facility] 2019-01-25 09:30:00 2019-01-25 09:30:[address] [facility] [id number] [facility] 2018-10-26 09:30:00 2018-10-26 09:30:[address] [facility] [id number] [facility] 2018-07-27 10:15:00 2018-07-27 10:15:[address] [facility] [id number] [facility] 2018-05-01 09:15:00 2018-05-01 09:15:00 AppointALFREDO Stern M.D. SAMUELS, JOSHUA, M.D. [facility] Pediatrics Division of Medical Genetics [id number] [place] [facility] 2018-05-01 08:45:00 2018-05-01 08:45:00 AppointALONZO Weinberg M.D. ALONZO GONZALES M.D. [facility] [id number] [place] [facility] 2018-04-27 10:15:00 2018-04-27 10:15:[address] [facility] [id number] [facility] 2017-05-08 09:00:00 2017-05-08 09:00:00 Appointmen t; ALFREDO EUGENE M.D. SAMUELS, JOSHUA, M.D. [facility] UTP [id number] [place] [facility] 2017-02-28 09:45:00 2017-02-28 09:45:00 Appointmen t; ALFREDO EUGENE M.D. SAMUELS, JOSHUA, M.D. [facility] UTP [id number] [place] [facility] 2017-02-28 09:45:00 2017-02-28 09:45:00 Appointmen t; ALONZO GONZALES M.D. KOENIG, MARY KAY, M.D. [facility] UTP [id number] [place] [facility] [facility] 2017-02-28 09:30:00 2017-02-28 09:30:00 Appointmen t; LAYA FELIX M.D. NORTHRUP, HOPE, M.D. [facility] UTP [id number] [place] [facility] Results Test Description Test Time Test Comments Results Result Co mments Source CULTURE, URINE 2024-08-17 08:58:12 SPECIMEN NUMBER: [id number] CULTURE, URINE SPECIMEN NUMBER: [id number] SOURCE: URINE REPORT STATUS: FINAL FINAL REPORT: 08/17/2024 <10,000 CFU/ML UROGENITAL PAOLA PRESENT NO COMMON PATHOGENS Hi Garcia Sandrita [id number] 09:41:16* Test Item Value Reference Range Interpretation Comme nts INTACT PTH (test code = 5005) 105 PG/ML 15-65 H COMPREHENSIVE METABOLIC [id number] 09:27:21* Test Item Value Reference Range Interpretation Comme nts GLUCOSE (test code = 2217) 79 MG/DL 70-99 BUN (test code = 2208) 75 MG/DL 6-20 H CREATININE (test code = 2214) 4.28 MG/DL 0.60-1.30 H eGFR (2020 CKD-EPI) (test co de = 35915) 13 ML/MIN/1.73 >60 L CALC BUN/CREAT (test code = 2235) 18 RATIO 6-28 SODIUM (test code = 2231) 138 MEQ/L 133-146 POTASSIUM (test code = 2228) 4.0 MEQ/L 3.5-5.4 CHLORIDE (test code = 5) 100 MEQ/L 95-107 CARBON DIOXIDE (test code = 6) 20 MEQ/L 19-31 CALCIUM (test code = 2208) 9.9 MG/DL 8.5-10.5 PROTEIN, TOTAL (test code = 9) 8.9 G/DL 6.1-8.3 H ALBUMIN (test code = 2200) 4.7 G/DL 3.5-5.2 CALC GLOBULIN (test code = 0) 4.2 G/DL 1.9-3.7 H CALC A/G RATIO (test code = 2233) 1.1 RATIO 1.0-2.6 BILIRUBIN, TOTAL (test code = 2206) <0.2 MG/DL <=1.2 ALKALINE PHOSPHATASE (test code = 2203) 116 U/L 40-114 H AST (test code = 2217) 12 U/L 9-40 ALT (test code = 2218) 10 U/L 5-40 VITAMIN D, 25 [id number] 09:27:07* Test Item Value Reference Range Interpretation Comme nts VITAMIN D, 25 OH (test code = 4958) 35 NG/ML SEE BELOW NOTE: 25-HYDR OXYVITAMIN D ASSAY INCLUDES 25-HYDROXYVITAMIN D2 AND D3. [...] . . . . . NG/ML 30-100 PROTEIN/CREATININE RATIO, URINE, [id number] 06:53:34* Test Item Value Reference Range Interpretation Comme nts PROTEIN, URINE, CONC. (test code = 2103) 23 MG/DL NOT ESTAB CREATININE, URINE, CONC. (test code = 2071) 26.9 MG/DL NOT ESTAB CALC PROTEIN/CREATIN INE (test code = 2158) 855 MG/G CREAT SEE BELOW INTERPRETIVE INFORMATIONNKF ADULT AND CHILD NORMAL RANGE . . . . . .MG/G CREAT <200AAFP (6-24 MONTHS) NORMAL RANGE . . .MG/G CREAT <500NEPHROTIC RANGE PROTEINURIA (APPROX) . . . .MG/G CREAT >2-3,000 NKF NORMAL RANGES PREFERRED FOR FIRST MORNING VOID, BUT NON-FIRSTMORNING SPECIMENS ARE ACCEPTABLE. FOR ASSESSMENT OF NON-FIRSTMORNING SPECIMENS, ADDITIONAL INTERPRETIVE INFORMATION PROVIDEDBELOW: AGE MALE FEMALE (MG/G CREAT) (MG/G CREAT) 7-9 <220 <300 10-12 <220 <340 13-15 <150 <390 16-17 <190 <350 Refs: National Kidney Foundation K/DOQI 2002. [facility] Isabela and [facility] Perez; Proteinuria in Children. Amer. Fam. Phys. 2010; 82(6): 645-651. OR Benson et al. Pediatric Reference Intervals for Random Urine Calcium, Phosphorus and Total Protein. Pediatr Nephrol. 2010; 25:7502-6348. UNLESS OTHERWISE INDICATED, ALL TESTING PERFORMED AT [facility] [address] [place] [address] SCANNER OPERATOR: TOM COLLINS M.D. CLIA NUMBER [id number] [facility] [place]. [id number] CBC W/AUTO DIFF WITH [id number] 03:40:50* Test Item Value Reference Range Interpretation Comme nts WBC (test code = 1001) 9.8 K/UL 3.5-11.0 RBC (test code = 1002) 3.32 M/UL 3.80-5.40 L HEMOGLOBIN (test code = 1003) 10.1 G/DL 11.5-15.5 L HEMATOCRIT (test code = 1004) 31.2 % 34.0-45.0 L MCV (test code = 1005) 94.0 fL 80.0-99.0 MCH (test code = 1006) 30.4 PG 25.0-33.0 MCHC (test code = 1007) 32.4 G/DL 31.0-36.0 RDW (test code = 1038) 14.9 % 11.5-15.0 NEUTROPHILS (test code = 1008) 60.3 % LYMPHOCYTES (test code = 1010) 28.2 % MONOCYTES (test code = 1011) 8.2 % EOSINOPHILS (test code = 1012) 0.9 % BASOPHILS (test code = 1013) 0.6 % IMMATURE GRANULOCYTES (test code = 1036) 1.8 % NUCLEATED RBCS (test code = 1065) 0.0 /100 WBC'S See_Comment [Automated [employer]] The system which generated this result transmitted reference range: 0.0. The reference range was not used to interpret this result as normal/abnormal. PLATELET COUNT (test code = 1015) 513 K/UL 130-400 H ABSOLUTE NEUTROPHILS (test code = 1066) 5.88 K/UL 1.50-7.50 ABSOLUTE LYMPHOCYTES (test code = 1067) 2.76 K/UL 1.00-4.00 ABSOLUTE MONOCYTES (test code = 1068) 0.80 K/UL 0.20-1.00 ABSOLUTE EOSINOPHILS (test code = 1040) 0.09 K/UL 0.00-0.50 ABSOLUTE BASOPHILS (test code = 1069) 0.06 K/UL 0.00-0.20 ABS IMMATURE GRANULOCYTES (test code = 1020) 0.18 K/UL 0.00-0.10 H ABS NUCLEATED RBCS (test code = 97000) 0.00 K/UL 0.00-0.11 INTACT [id number] 00:00:00* Test Item Value Reference Range Interpretation Comme nts INTACT PTH (test code = 5005) 105 PG/ML Hi Radha SarmadVITAMIN D, 25 [id number] 00:00:00* Test Item Value Reference Range Interpretation Comme nts VITAMIN D, 25 OH (test code = 4958) 35 NG/ML Hi Garcia SarmadCBC W/AUTO [id number] 00:00:00* Test Item Value Reference Range Interpretation Comme nts WBC (test code = 1001) 9.8 K/UL RBC (test code = 1002) 3.32 M/UL HEMOGLOBIN (test code = 1003) 10.1 G/DL HEMATOCRIT (test code = 1004) 31.2 % MCV (test code = 1005) 94.0 fL MCH (test code = 1006) 30.4 PG MCHC (test code = 1007) 32.4 G/DL RDW (test code = 1038) 14.9 % NEUTROPHILS (test code = 1008) 60.3 % LYMPHOCYTES (test code = 1010) 28.2 % MONOCYTES (test code = 1011) 8.2 % EOSINOPHILS (test code = 1012) 0.9 % BASOPHILS (test code = 1013) 0.6 % IMMATURE GRANULOCYTES (test code = 1036) 1.8 % NUCLEATED RBCS (test code = 1065) 0.0 /100WBC'S PLATELET COUNT (test code = 1015) 513 K/UL ABSOLUTE NEUTROPHILS (test c ode = 1066) 5.88 K/UL ABSOLUTE LYMPHOCYTES (test c ode = 1067) 2.76 K/UL ABSOLUTE MONOCYTES (test cod e = 1068) 0.80 K/UL ABSOLUTE EOSINOPHILS (test c ode = 1040) 0.09 K/UL ABSOLUTE BASOPHILS (test cod e = 1069) 0.06 K/UL ABS IMMATURE GRANULOCYTES (t est code = 1020) 0.18 K/UL ABS NUCLEATED RBCS (test cod e = 48572) 0.00 K/UL Hi BañuelosCOMPREHENSIVE METABOLIC [id number] 00:00:00* Test Item Value Reference Range Interpretation Comme nts GLUCOSE (test code = 2217) 79 MG/DL BUN (test code = 2208) 75 MG/DL CREATININE (test code = 2214) 4.28 MG/DL eGFR (2020 CKD-EPI) (test co de = 33198) 13 ML/MIN/1.73 CALC BUN/CREAT (test code = 2235) 18 RATIO SODIUM (test code = 2231) 138 MEQ/L POTASSIUM (test code = 2228) 4.0 MEQ/L CHLORIDE (test code = 2215) 100 MEQ/L CARBON DIOXIDE (test code = 2206) 20 MEQ/L CALCIUM (test code = 2209) 9.9 MG/DL PROTEIN, TOTAL (test code = 2229) 8.9 G/DL ALBUMIN (test code = 2201) 4.7 G/DL CALC GLOBULIN (test code = 2240) 4.2 G/DL CALC A/G RATIO (test code = 2234) 1.1 RATIO BILIRUBIN, TOTAL (test code = 2207) <0.2 MG/DL ALKALINE PHOSPHATASE (test code = 2204) 116 U/L AST (test code = 2218) 12 U/L ALT (test code = 2219) 10 U/L Hi BañuelosPROTEIN/CREATININE RATIO, [id number] 00:00:00* Test Item Value Reference Range Interpretation Comme nts PROTEIN, URINE, CONC. (test code = 2104) 23 MG/DL CREATININE, URINE, CONC. (te st code = 2072) 26.9 MG/DL CALC PROTEIN/CREATININE (munira t code = 2158) 855 MG/GCREAT Hi Ewing CENTRALLY INSERTED DEVICE TUNNELED 5 OR OLDER NO PORT/PUMP 2024-06-28 15:38:43EXAM: TUNNELED CENTRAL VENOUS CATHETER PLACEMENT USING ULTRASOUND ANDFLUOROSCOPIC GUIDANCE (TUNNELED CVC PLACEMENT) PATIENT'S HISTORY: 33 year old female with history of bilateral renalangiomyolipomas status post right nephrectomy. Now presenting withprogression of CKD with a plan for left nephrectomy and need for dialysisin the near future. ATTENDING: Dr. Ambika Delaney,RESIDENT: Dr. Hodges SEDATION: Moderate sedation was administered under the attendingphysician's direction and continuous monitoring by a trained nursespecialist who was independent from those actually performing theprocedure. Total monitored sedation time was ?minutes. FLUOROSCOPY TIME: 0.8 minutes.RADIATION DOSE: 5.6 mGy. TECHNIQUE: ?The risks, benefits and alternatives were discussed andinformed consent was obtained. Prior to beginning the procedure, UniversalProtocol was used to confirm the patient's identity and planned procedure.Prior to the procedure, the central veins were evaluated by ultrasound, animage recorded and saved in PACS. Maximum sterile barriers including cap, mask, hand hygiene, sterile gloves,sterile gown, large sterile drape and cutaneous antisepsis were used. The skin over the right internal ju gular vein was sterilely prepped, drapedand infiltrated with 1 percent lidocaine. The vein was accessed with a 21gauge needle using realtime ultrasound guidance. A guidewire and catheterwere then passed centrally using fluoroscopic guidance. The intravascularlength from the access site to the rightatrium was then assessed. After infiltrating the skin in the subclavicular region with 1 percentlidocaine, a short transverse incision was made and the 14.5 Welsh 19 cmtunneled dialysis catheter wastunneled to the internal jugular access siteand inserted through a peel-away sheath. The catheter was flushed with 1000U/mL heparin and secured to the skin. The incision in the lower neck was closed using Dermabond. A steriledressing was applied. ESTIMATED BLOOD LOSS: Less than 30 mL. DISCHARGED TO: Recovery and then to inpatient unit. CONDITION: Stable. FINDINGS: Ultrasound image shows a patent vein in the lower neck. The finalfluoroscopic image demonstrates the catheter with its tip in the rightatrium. No complications are seen.[facility] TexasCT ABDOM[facility] PELVIS WO [id number] 16:46:29Interpretation of outside imaging, ?CT ABDOMEN PELVIS WO CONTRAST [facility] 06/24/2024.Today's date 06/25/2024 8:13 AM HISTORY: Abdominal pain, acute, nonlocalized ' COMPARISON: CT abdomen pelvis without 06/17/2024 PROCEDURE: Axial images of abdomen and pelvis are obtained withoutintravenous administration of contrast. Sagittal and coronal reformats areprovided.[facility] TexasPrepare Packed RBC (in units), 1 [id number] 17:30:43* Test Item Value Reference Range Interpretation Comme nts Cross Match Result (test code = 4409) Compatible ISBT Blood Type Code (test code = 952478) 9500 Unit Blood Type (test code = 4410) O Neg Unit Number (test code = 4411) [id number] Blood Expiration Date & Time (test code = 370264) [id number] Status Information (test code = 4412) Issued Product Identification (test code = 4413) Red Blood Cells Product Code (test code = 4414) [id number] Performed at [facility] B Laboratory Services [facility] Blood [address] [address]Ayeh Free: [phone] No. [id number] [facility] TexasCbc without [id number] 16:25:52* Test Item Value Reference Range Interpretation Comme nts WBC (test code = 6690-2) 23.77 4.30-11.10 H RBC (test code = 789-8) 2.55 3.93-5.25 L HGB (test code = 718-7) 7.6 g/dL 11.6-15.0 L HCT (test code = 4544-3) 23.8 % 35.7-45.2 L MCH (test code = 785-6) 29.8 pg 25.9-32.8 MCV (test code = 787-2) 93.3 fL 80.6-95.5 MCHC (test code = 786-4) 31.9 g/dL 31.6-35.1 PLT (test code = 777-3) 446 166-358 H MPV (test code = 28993-6) 9.6 fL 9.5-12.9 RDW-CV (test code = 788-0) 13.9 % 12.0-15.5 RDW-SD (test code = 43904-3) 47.2 fL 39.0-49.9 NRBC x10^3 (test code = 2483699801) See_Comment [Automated messa ge] The system which generated this result transmitted reference range: 10*3/?L. The reference range was not used to interpret this result as normal/abnormal. NRBC/100 WBC (test code = 5514309414) 0.0 0.0-10.0 IPF % (test code = 8618170939) Lab Interpretation (test code = 58348-2) Abnormal [facility] TexasLactic Acid Whole [id number] 14:32:52* Test Item Value Reference Range Interpretation Comme nts LACTIC ACID (test code = 6831796142) 1.15 mmol/L 0.50-2.20 Lab Interpretation (test cod e = 24954-1) Normal [facility] TexasType and Screen - ONCE [id number] 18:17:00* Test Item Value Reference Range Interpretation Comme nts ABO & RH (test code = 20) O NEGATIVE IAT (test code = 1185) Negative [facility] TexasCbc without [id number] 18:05:32* Test Item Value Reference Range Interpretation Comme nts WBC (test code = 6690-2) 14.18 4.30-11.10 H RBC (test code = 789-8) 2.77 3.93-5.25 L HGB (test code = 718-7) 8.2 g/dL 11.6-15.0 L HCT (test code = 4544-3) 25.7 % 35.7-45.2 L MCH (test code = 785-6) 29.6 pg 25.9-32.8 MCV (test code = 787-2) 92.8 fL 80.6-95.5 MCHC (test code = 786-4) 31.9 g/dL 31.6-35.1 PLT (test code = 777-3) 433 166-358 H MPV (test code = 18447-4) 9.2 fL 9.5-12.9 L RDW-CV (test code = 788-0) 14.1 % 12.0-15.5 RDW-SD (test code = 44715-4) 47.7 fL 39.0-49.9 NRBC x10^3 (test code = 2356582234) See_Comment [Automated messa ge] The system which generated this result transmitted reference range: 10*3/?L. The reference range was not used to interpret this result as normal/abnormal. NRBC/100 WBC (test code = 9951460474) 0.0 0.0-10.0 IPF % (test code = 8870065891) Lab Interpretation (test code = 19096-7) Abnormal [facility] WITH [id number] 15:42:09* Test Item Value Reference Range Interpretation Comme nts WBC (test code = 6690-2) 16.27 4.30-11.10 H RBC (test code = 789-8) 2.85 3.93-5.25 L HGB (test code = 718-7) 8.4 g/dL 11.6-15.0 L HCT (test code = 4544-3) 26.1 % 35.7-45.2 L MCV (test code = 787-2) 91.6 fL 80.6-95.5 MCH (test code = 785-6) 29.5 pg 25.9-32.8 MCHC (test code = 786-4) 32.2 g/dL 31.6-35.1 RDW-SD (test code = 57324-3) 47.4 fL 39.0-49.9 RDW-CV (test code = 788-0) 14.2 % 12.0-15.5 PLT (test code = 777-3) 475 166-358 H MPV (test code = 65055-7) 8.9 fL 9.5-12.9 L NRBC/100 WBC (test code = 2752472557) 0.0 0.0-10.0 NRBC x10^3 (test code = 2942914259) See_Comment [Automated message] The system which generated this result transmitted reference range: 10*3/?L. The reference range was not used to interpret this result as normal/abnormal. GRAN MAT (NEUT) % (test code = 770-8) 79.7 % IMM GRAN % (test code = 1453090877) 2.70 % LYMPH % (test code = 736-9) 7.5 % MONO % (test code = 5905-5) 9.5 % EOS % (test code = 713-8) 0.2 % BASO % (test code = 706-2) 0.4 % GRAN MAT x10^3(ANC) (test code = 4088353655) 12.96 10*3/uL 1.88-7.09 H IMM GRAN x10^3 (test code = 7587938587) 0.44 10*3/uL 0.00-0.06 H LYMPH x10^3 (test code = 731-0) 1.22 10*3/uL 1.32-3.29 L MONO x10^3 (test code = 742-7) 1.55 10*3/uL 0.33-0.92 H EOS x10^3 (test code = 711-2) 0.04 10*3/uL 0.03-0.39 BASO x10^3 (test code = 704-7) 0.06 10*3/uL 0.01-0.07 Lab Interpretation (test code = 67789-0) Abnormal [facility] TexasPhosphorus Rchfk1004-30-34 15:13:05* Test Item Value Reference Range Interpretation Comme nts PHOSPHORUS (test code = 3018219562) 4.8 mg/dL 2.5-5.0 Lab Interpretation (test cod e = 42408-5) Normal [facility] TexasHEPATIC FUNCTION PANEL (22554) (ALB,T.PRO,BILI T,BU/BC,ALT,AST,ALK PHOS)2024-06-24 15:13:05* Test Item Value Reference Range Interpretation Comme nts TOTAL BILI (test code = 0873062735) 0.5 mg/dL 0.1-1.1 BILI UNCON (test code = 3994572701) 0.0 mg/dL 0.1-1.1 L BILI CONJ (test code = 5772578082) 0.0 mg/dL 0.0-0.3 T PROTEIN (test code = 8663880704) 7.2 g/dL 6.3-8.2 ALBUMIN (test code = 5815619507) 3.7 g/dL 3.5-5.0 ALK PHOS (test code = 4362082216) 124 U/L 34-122 H ALTv (test code = 1742-6) 31 U/L 5-35 AST(SGOT) (test code = 1496739113) 59 U/L 13-40 H Lab Interpretation (test cod e = 96242-4) Abnormal [facility] (NA, K, CL, CO2, GLUCOSE, BUN, CREATININE, CA)2024-06-24 15:13:05* Test Item Value Reference Range Interpretation Comme nts NA (test code = 3480948267) 138 mmol/L 135-145 K (test code = 2860586076) 5.1 mmol/L 3.5-5.0 H CL (test code = 3008789347) 111 mmol/L 98-108 H CO2 TOTAL (test code = 5362773554) 17 mmol/L 23-31 L AGAP (test code = 9599017945) 10 2-16 BUN (test code = 6443976982) 46 mg/dL 7-23 H GLUCOSE (test code = 9119768803) 102 mg/dL 70-110 CREATININE (test code = 2160-0) 3.69 mg/dL 0.50-1.04 H CALCIUM (test code = 1999028728) 9.2 mg/dL 8.6-10.6 eGFR (test code = 84041-8) 16.0 mL/min/1.73m2 CKD-EPI eGFR (2020). Assuming creatinine has been stable day-to-day for at least three months, the eGFR indicates Category G4 (15 - 29 mL/min/1.73 m2) Lab Interpretation (test code = 37368-8) Abnormal [facility] TexasProthrombin Time / [id number] 14:59:20* Test Item Value Reference Range Interpretation Comme [facility] PROTIME PATIENT (test code = 5964-2) 12.3 10.1-12.6 INR (test code = 6301-6) 1.1 Normal INR <1.1; Warfarin Therapeutic range 2.0 to 3.0 or 2.5 to 3.5, depending upon the indications. Lab Interpretation (test code = 50614-6) Normal [facility] TexasaPTT2024-08-12 14:59:20* Test Item Value Reference Range Interpretation Comme [facility] APTT Patient (test code = 3173-2) 36 26-36 Lab Interpretation (test cod e = 53375-9) Normal [facility] TexasLactic Acid Whole Kvqph9588-93-87 14:46:46* Test Item Value Reference Range Interpretation Comme [facility] LACTIC ACID (test code = 9610629865) 1.08 mmol/L 0.50-2.20 Lab Interpretation (test cod e = 81945-2) Normal [facility] Packed RBC (in units), 1 Units 2024-06-20 20:22:52* Test Item Value Reference Range Interpretation Comme [facility] Cross Match Result (test code = 4409) Compatible ISBT Blood Type Code (test code = 008058) 9500 Unit Blood Type (test code = 4410) O Neg Unit Number (test code = 4411) [id number] Blood Expiration Date & Time (test code = 983013) 081024551692 Status Information (test code = 4412) Issued Product Identification (test code = 4413) Red Blood Cells Product Code (test code = 4414) [id number] Performed at [facility] B Laboratory Services [facility] Blood [address] [address]Tval Free: [phone] No. [id number] [facility] Packed RBC (in units), 1 Units 2024-06-20 14:08:52* Test Item Value Reference Range Interpretation Comme [facility] Cross Match Result (test code = 4409) Compatible ISBT Blood Type Code (test code = 051940) 9500 Unit Blood Type (test code = 4410) O Neg Unit Number (test code = 4411) [id number] Blood Expiration Date & Time (test code = 027944) 089135541170 Status Information (test code = 4412) Issued Product Identification (test code = 4413) Red Blood Cells Product Code (test code = 4414) [id number] Performed at [facility] B Laboratory Services - [facility] Blood [address] [place] [address]Qdyx Free: [phone] No. [id number] [facility] TexasLactic Acid Whole Aqhxh2840-60-72 11:05:56* Test Item Value Reference Range Interpretation Comme nts LACTIC ACID (test code = 8008457812) 0.84 mmol/L 0.50-2.20 QUES Lab Interpretation (test cod e = 41748-2) Normal [facility] TexasCT ANGIOGRAM ABDOMEN/[id number] 04:37:17 Ordering physician: APOLINAR SANCHEZ Indication: Large [...] The density of theperinephric hematoma does not change management coordinator the course of the exam. There isno [...] and pelvis demonstrate no osseous destructive lesion. [facility] TexasTROPONIN [id number] 03:46:27* Test Item Value Reference Range Interpretation Comme [facility] TROPONIN I (test code = 7927545547) 0.007 ng/mL <=0.034 [place] (test code = [...] of biotin. Lab Interpretation (test code = 02077-7) Normal [facility] TexasPROTHROMBIN TIME / [id number] 03:22:25* Test Item Value Reference Range Interpretation Comme [facility] PROTIME PATIENT (test code = 5964-2) 11.5 10.1-12.6 INR (test code = 6301-6) 1.0 Normal INR <1.1; Warfarin Therapeutic range 2.0 to 3.0 or 2.5 to 3.5, depending upon the indications. Lab Interpretation (test code = 15946-7) Normal [facility] TexasACTIVATED PARTIAL THRMPLAS [id number] 03:22:25* Test Item Value Reference Range Interpretation Comme [facility] APTT Patient (test code = 3173-2) 32 26-36 Lab Interpretation (test cod e = 59687-3) [facility] - ONCE Yfylofq9176-83-97 03:01:00* Test Item Value Reference Range Interpretation Comme nts ABO & RH (test code = 20) O NEGATIVE IAT (test code = 1185) Negative [facility] WITH [id number] 02:47:40* Test Item Value Reference Range Interpretation [...] 32.1 g/dL 31.6-35.1 RDW-SD (test code = 45160-0) 45.6 fL 39.0-49.9 RDW-CV (test code = 788-0) 13.2 % 12.0-15.5 PLT (test code = 777-3) 397 166-358 H MPV (test code = 45769-9) 9.6 fL 9.5-12.9 NRBC/100 WBC (test code = 4716567603) 0.0 0.0-10.0 NRBC x10^3 (test code = 9826955308) See_Comment [Automated messa ge] The system which generated this result transmitted reference range: 10*3/?L. The reference range was not used to interpret this result as normal/abnormal. GRAN MAT (NEUT) % (test code = 770-8) 73.4 % IMM GRAN % (test code = 1278193520) 3.60 % LYMPH % (test code = 736-9) 12.3 % MONO % (test code = 5905-5) 9.7 % EOS % (test code = 713-8) 0.7 % BASO % (test code = 706-2) 0.3 % GRAN MAT x10^3(ANC) (test code = 9023394281) 9.82 10*3/uL 1.88-7.09 H IMM GRAN x10^3 (test code = 9401263547) 0.48 10*3/uL 0.00-0.06 H LYMPH x10^3 (test code = 731-0) 1.65 10*3/uL 1.32-3.29 MONO x10^3 (test code = 742-7) 1.30 10*3/uL 0.33-0.92 H EOS x10^3 (test code = 711-2) 0.09 10*3/uL 0.03-0.39 BASO x10^3 (test code = 704-7) 0.04 10*3/uL 0.01-0.07 Lab Interpretation (test code = 07452-3) Abnormal [facility] TexasCOMP. METABOLIC PANEL (88157)2024-06-20 02:25:38* Test Item Value Reference Range Interpretation Comme nts NA (test code = 7631815047) 140 mmol/L 135-145 K (test code = 1639320499) 4.2 mmol/L 3.5-5.0 CL (test code = 3999037235) 109 mmol/L 98-108 H CO2 TOTAL (test code = 0709739167) 19 mmol/L 23-31 L AGAP (test code = 1541028495) 12 2-16 BUN (test code = 3521955769) 33 mg/dL 7-23 H GLUCOSE (test code = 7082938823) 122 mg/dL 70-110 H CREATININE (test code = 2160-0) 3.17 mg/dL 0.50-1.04 H TOTAL BILI (test code = 1176761015) 0.3 mg/dL 0.1-1.1 CALCIUM (test code = 9398528222) 8.7 mg/dL 8.6-10.6 T PROTEIN (test code = 2105295574) 7.2 g/dL 6.3-8.2 ALBUMIN (test code = 8027431649) 3.9 g/dL 3.5-5.0 ALK PHOS (test code = 5621087105) 122 U/L 34-122 ALTv (test code = 1742-6) 38 U/L 5-35 H AST(SGOT) (test code = 8444236127) 38 U/L 13-40 eGFR (test code = 86355-8) 19.1 mL/min/1.73m2 CKD-EPI eGFR (2020). Assuming creatinine has been stable day-to-day for at least three months, the eGFR indicates Category G4 (15 - 29 mL/min/1.73 m2) Lab Interpretation (test code = 73654-6) Abnormal [facility] TexasLIPASE2024-08-08 02:25:38* Test Item Value Reference Range Interpretation Comme nts LIPASE (test code = 3912237209) 95 U/L 0-220 Lab Interpretation (test cod e = 51119-9) Normal [facility] TexasPOCT [id number] 02:11:00* Test Item Value Reference Range Interpretation Comme nts POCT PREG (test code = 1605) Negative On board controls acceptable with C Line (test code = 3574) Yes POCT PREG LOT # (test code = 3575) [id number] POCT PREG TEST DATE ( test code = 3576) 11/17/2024 Lab Interpretation (test cod e = 64293-6) Normal [facility] TexasMAGNESIUM-[id number] 19:00:00* Test Item Value Reference Range Interpretation Comme nts MAGNESIUM-Q (test code = 00235-8) 1.8 mg/dL 1.5-2.5 [place] (test code = [place]) PERFORMED BY [employer]; [address] [place] [phone]; BRANDO OWENS M.D. [facility] TexasPHOSPHATE ( PHOSPHORUS)-[id number] 19:00:00 * Test Item Value Reference Range Interpretation Comme nts PHOSPHATE ( PHOSPHORUS)-Q (test code = 2777-1) 2.3 mg/dL 2.5-4.5 L [place] (test code = [place]) PERFORMED BY [employer]; [address] [place] [address]; BRANDO OWENS M.D. Lab Interpretation (test code = 75458-0) Abnormal [facility] TexasCBC (H/H, RBC, INDICES,$WBC, PLT)-[id number] 19:00:00* Test Item Value Reference Range Interpretation Comme nts WHITE BLOOD CELL COUNT-Q (test code = 6690-2) 12.5 3.8-10.8 H RED BLOOD CELL COUNT-Q (test code = 789-8) 2.29 3.80-5.10 L HEMOGLOBIN-Q (test code = 718-7) 6.9 g/dL 11.7-15.5 L HEMATOCRIT-Q (test code = 4544-3) 21.7 % 35.0-45.0 L MCV-Q (test code = 787-2) 94.8 fL 80.0-100.0 MCH-Q (test code = 785-6) 30.1 pg 27.0-33.0 MCHC-Q (test code = 786-4) 31.8 g/dL 32.0-36.0 L RDW-Q (test code = 788-0) 12.5 % 11.0-15.0 PLATELET COUNT-Q (test code = 777-3) 311 140-400 MPV-Q (test code = 776-5) 10.0 fL 7.5-12.5 [place] (test code = [place]) PERFORMED BY [employer]; [address] [place] [address]; BRANDO OWENS M.D. Lab Interpretation (test code = 39590-5) [facility]normal [facility] BranchURINALYSIS, [id number]-[id number] 19:00:00* Test Item Value Reference Range Interpretation Comme nts COLOR-Q (test code = 5778-6) YELLOW YELLOW APPEARANCE-Q (test code = 5767-9) CLEAR CLEAR SPECIFIC GRAVITY-Q (test code = 5811-5) 1.014 1.001-1.03 PH-Q (test code = 5803-2) 5.5 5.0-8.0 GLUCOSE-Q (test code = 12563-7) NEGATIVE NEGATIVE BILIRUBIN-Q (test code = 5770-3) NEGATIVE NEGATIVE KETONES-Q (test code = 2514-8) NEGATIVE NEGATIVE OCCULT BLOOD-Q (test code = 5794-3) NEGATIVE NEGATIVE PROTEIN-Q (test code = 41416-6) 1+ NEGATIVE NITRITE-Q (test code = 5802-4) NEGATIVE NEGATIVE LEUKOCYTE ESTERASE-Q (test code = 5799-2) NEGATIVE NEGATIVE WBC-Q (test code = 5821-4) 0-5 See_Comment [Automated message] The system which generated this result transmitted reference range: < OR = 5 /HPF. The reference range was not used to interpret this result as normal/abnormal. RBC-Q (test code = 69608-4) NONE SEEN See_Comment [Automated message] The system which generated this result transmitted reference range: < OR = 2 /HPF. The reference range was not used to interpret this result as normal/abnormal. SQUAMOUS EPITHELIAL CELLS-Q (test code = 79885-5) 0-5 See_Comment [Automated message] The system which generated this result transmitted reference range: < OR = 5 /HPF. The reference range was not used to interpret this result as normal/abnormal. TRANSITIONAL EPITHELIAL$CELLS-Q (test code = 18211-4) SEE NOTE RENAL EPITHELIAL CELLS-Q (test code = 28188-7) SEE NOTE BACTERIA-Q (test code = 5769-5) FEW NONE SEEN /HPF CALCIUM OXALATE CRYSTALS-Q (test code = 00055-4) SEE NOTE TRIPLE PHOSPHATE CRYSTALS-Q (test code = 33627-9) SEE NOTE URIC ACID CRYSTALS-Q (test code = 38323-2) SEE NOTE AMORPHOUS SEDIMENT-Q (test code = 8246-1) SEE NOTE CRYSTALS-Q (test code = 74999-9) SEE NOTE HYALINE CAST-Q (test code = 5796-8) NONE SEEN NONE SEEN /LPF GRANULAR CAST-Q (test code = 5793-5) SEE NOTE CASTS-Q (test code = 9842-6) SEE NOTE YEAST-Q (test code = 5822-2) SEE NOTE -Q (test code = 8251-1) See Below This urine was analyzed for the presence of WBC, RBC, bacteria, casts, and other formed elements. Only those elements seen were reported. [place] (test code = [place]) PERFORMED BY [employer]; [address] [place] [address]; BRANDO OWENS M.D. [facility] TexasMICROALBUMIN, RANDOM URINE (W/CREATININE)-Q 2024-06-18 19:00:00* Test Item Value Reference Range Interpretation Comments CREATININE, RANDOM URINE-Q (test code = 2161-8) 123 mg/dL 20-275 MICROALBUMIN-Q (test code = 30722-2) 5.0 mg/dL Reference RangeN ot established MICROALBUMIN/CREATI NINE$RATIO, RANDOM URINE-Q (test code = 9318-7) 41 See_Comment H The ADA defines abnormalities in albuminexcretion as follows: Albuminuria Category ?Result (mg/g creatinine) Normal to Mildly increased ? <30Moderately increased ? 30-299 Severely increased ? > OR = 300 The ADA recommends that at least two of threespecimens collected within a 3-6 month period beabnormal before considering a patient to bewithin a diagnostic category. [Automated message] The system which generated this result transmitted reference range: <30 mg/g creat. The reference range was not used to interpret this result as normal/abnormal. [place] (test code = [place]) PERFORMED BY [employer]; [address] [place] [address]; BRANDO OWENS M.D. Lab Interpretation (test code = 21355-5) Abnormal [facility] TexasPT, INTACT AND KANEYSL-[id number] 19:00:00* Test Item Value Reference Range Interpretation Comments PARATHYROID HORMONE,$INTACT-Q (test code = 2731-8) 265 pg/mL 16-77 H Interpretive [place] de ? ?Intact PTH ? Calcium ? -------Normal Parathyroid ? ?Normal ? NormalHypoparathyroidism ? ?Low or Low Normal ? ?LowHyperparathyroidism ? Primary ?Normal or High ? ? ? High ? Secondary ?High ? Normal or Low ? Tertiary ? High ? HighNon-Parathyroid ? Hypercalcemia ? ? ?Low or Low Normal ? ?High CALCIUM-Q (test code = 33766-8) 8.5 mg/dL 8.6-10.2 L [place] (test code = [place]) PERFORMED BY [employer]; [address] [place] [address]; BRANDO OWENS M.D. Lab Interpretation (test code = 24498-4) Abnormal [facility] TexasVITAMIN D, 25-HYDROXY,$LC/MS/BQ-[id number] 19:00:00* Test Item Value Reference Range Interpretation Comme [facility] VITAMIN D, 25-OH, TOTAL-Q (test code = 75561-7) 26 ng/mL 30-100 L Vitamin D Status ? 25-OH Vitamin D: Deficiency: ?<20 ng/mLInsufficiency : ? 20 - 29 ng/mLOptimal: ? > or = 30 ng/mL For 25-OH Vitamin D testing on patients on D2-supplementation and patients for whom quantitation of D2 and D3 fractions is required, the QuestAssureD(TM)25 -OH VIT D, (D2,D3), LC/MS/MS is recommended: order code 48658 (patients >2yrs). See Note 1 Note 1 For additional information, please refer to [email or web address] [email or web address] m/faq/[email or web address] (This link is being provided for informational/educ ational purposes only.) [place] (test code = [place]) PERFORMED BY [employer]; [address] [place] [phone]; BRANDO OWENS M.D. Lab Interpretation (test code = 74746-8) Abnormal [facility] TexasPROTEIN, TOTAL, RANDOM URINE (W/ CREATININE)-Q 2024-06-18 19:00:00* Test Item Value Reference Range Interpretation Comme [facility] CREATININE, RANDOM URINE-Q (test code = 2161-8) 123 mg/dL 20-275 PROTEIN/CREATININE RATIO-Q (test code = 2890-2) 0.732 0.024-0.18 H PROTEIN, TOTAL, RANDOM UR-Q (test code = 2888-6) 90 mg/dL 5-24 H REPORT COMMENT:FASTING :YES [place] (test code = [place]) PERFORMED BY [employer] [facility]; [address] [place] [address]; BRANDO OWENS M.D. Lab Interpretation (test code = 50316-9) [facility] [id number] 19:00:00* Test Item Value Reference Range Interpretation Comme nts GLUCOSE-Q (test code = 2345-7) 92 mg/dL 65-99 ? Fastin g reference interval UREA NITROGEN (BUN)-Q (test code = 3094-0) 31 mg/dL 7-25 H CREATININE-Q (test code = 2160-0) 3.20 mg/dL 0.50-0.97 H EGFR-Q (test code = 01899-3) 19 See_Comment L [Automated message] The system which generated this result transmitted reference range: > OR = 60 mL/min/1.73m2. The reference range was not used to interpret this result as normal/abnormal. BUN/CREATININE RATIO-Q (test code = 3097-3) 10 6-22 SODIUM-Q (test code = 2951-2) 138 mmol/L 135-146 POTASSIUM-Q (test code = 2823-3) 3.9 mmol/L 3.4-4.8 CHLORIDE-Q (test code = 2075-0) 108 mmol/L 98-110 CARBON DIOXIDE-Q (test code = 8-9) 20 mmol/L 20-32 CALCIUM-Q (test code = 21585-5) 8.6 mg/dL 8.6-10.2 [place] (test code = [place]) PERFORMED BY [employer] [facility]; [address] [place] [id number]; BRANDO OWENS M.D. Lab Interpretation (test code = 04453-5) [facility] WO [id number] 07:58:45ORDERING PHYSICIAN: ANGELO WARE ABDOMEN AND PELVIS [...] in thepelvis. No acute osseous abnormality is demonstrated.[facility] TexasLactic Acid Whole [id number] 07:43:42* Test Item Value Reference Range Interpretation Comme nts LACTIC ACID (test code = 6735468914) 1.35 mmol/L 0.50-2.20 Lab Interpretation (test cod e = 18914-5) Normal [facility] with [id number] 06:57:08* Test Item Value Reference Range Interpretation [...] 32.1 g/dL 31.6-35.1 RDW-SD (test code = 59763-8) 46.1 fL 39.0-49.9 RDW-CV (test code = 788-0) 13.2 % 12.0-15.5 PLT (test code = 777-3) 330 166-358 MPV (test code = 23547-0) 9.6 fL 9.5-12.9 NRBC/100 WBC (test code = 7616445001) 0.0 0.0-10.0 NRBC x10^3 (test code = 9334556727) See_Comment [Automated message] The system which generated this result transmitted reference range: 10*3/?L. The reference range was not used to interpret this result as normal/abnormal. GRAN MAT (NEUT) % (test code = 770-8) 70.7 % IMM GRAN % (test code = 9167791870) 2.80 % LYMPH % (test code = 736-9) 14.6 % MONO % (test code = 5905-5) 11.2 % EOS % (test code = 713-8) 0.4 % BASO % (test code = 706-2) 0.3 % GRAN MAT x10^3(ANC) (test code = 0747218789) 11.47 10*3/uL 1.88-7.09 H IMM GRAN x10^3 (test code = 1536306616) 0.46 10*3/uL 0.00-0.06 H LYMPH x10^3 (test code = 731-0) 2.36 10*3/uL 1.32-3.29 MONO x10^3 (test code = 742-7) 1.81 10*3/uL 0.33-0.92 H EOS x10^3 (test code = 711-2) 0.06 10*3/uL 0.03-0.39 BASO x10^3 (test code = 704-7) 0.05 10*3/uL 0.01-0.07 Lab Interpretation (test code = 53645-0) Abnormal [facility]. Metabolic Panel (66534)2024-06-17 06:44:45* Test Item Value Reference Range Interpretation Comme nts NA (test code = 8317894183) 137 mmol/L 135-145 K (test code = 7221241267) 3.8 mmol/L 3.5-5.0 CL (test code = 6765361481) 107 mmol/L 98-108 CO2 TOTAL (test code = 7365481148) 19 mmol/L 23-31 L AGAP (test code = 4604860569) 11 2-16 BUN (test code = 4277119107) 36 mg/dL 7-23 H GLUCOSE (test code = 5339577206) 100 mg/dL 70-110 CREATININE (test code = 2160-0) 3.26 mg/dL 0.50-1.04 H TOTAL BILI (test code = 1739256161) 0.2 mg/dL 0.1-1.1 CALCIUM (test code = 9045500230) 8.7 mg/dL 8.6-10.6 T PROTEIN (test code = 4466888796) 8.0 g/dL 6.3-8.2 ALBUMIN (test code = 7669113237) 4.4 g/dL 3.5-5.0 ALK PHOS (test code = 0343585353) 105 U/L 34-122 ALTv (test code = 1742-6) 12 U/L 5-35 AST(SGOT) (test code = 4084422656) 39 U/L 13-40 eGFR (test code = 33994-2) 18.5 mL/min/1.73m2 CKD-EPI eGFR (2020). Assuming creatinine has been stable day-to-day for at least three months, the eGFR indicates Category G4 (15 - 29 mL/min/1.73 m2) Lab Interpretation (test code = 05918-3) [facility]normal [facility]PO[facility] [id number] 06:00:00* Test Item Value Reference Range Interpretation Comme nts POCT PREG (test code = 1605) Negative On board controls acceptable with C Line (test code = 3574) Yes POCT PREG LOT # (test code = 3575) [id number] POCT PREG TEST DATE ( test code = 3576) 2025-03-22 Lab Interpretation (test cod e = 41477-0) Normal [facility] TexasCOMPREHENSIVE METABOLIC$PANEL W/EGFR-Q 2024-05-28 18:00:00* Test Item Value Reference Range Interpretation Comme nts GLUCOSE-Q (test code = 2345-7) 80 mg/dL 65-139 ? ? ? Non-fastin g reference interval UREA NITROGEN (BUN)-Q (test code = 3094-0) 47 mg/dL 7-25 H CREATININE-Q (test code = 2160-0) 2.99 mg/dL 0.50-0.97 H EGFR-Q (test code = 67719-0) 20 See_Comment L [Automated message] The system which generated this result transmitted reference range: > OR = 60 mL/min/1.73m2. The reference range was not used to interpret this result as normal/abnormal. BUN/CREATININE RATIO-Q (test code = 3097-3) 16 6-22 SODIUM-Q (test code = 2951-2) 137 mmol/L 135-146 POTASSIUM-Q (test code = 2823-3) 4.7 mmol/L 3.5-5.3 CHLORIDE-Q (test code = 5-0) 107 mmol/L 98-110 CARBON DIOXIDE-Q (test code = 2027-9) 22 mmol/L 20-32 CALCIUM-Q (test code = 51701-6) 9.4 mg/dL 8.6-10.2 PROTEIN, TOTAL-Q (test code = 2885-2) 7.5 g/dL 6.1-8.1 ALBUMIN-Q (test code = 1751-7) 4.2 g/dL 3.6-5.1 GLOBULIN-Q (test code = 31058-8) 3.3 1.9-3.7 ALBUMIN/GLOBULIN RATIO-Q (test code = 1759-0) 1.3 1.0-2.5 BILIRUBIN, TOTAL-Q (test code = 1974-2) 0.2 mg/dL 0.2-1.2 ALKALINE PHOSPHATASE-Q (test code = 6768-6) 91 U/L 31-125 AST-Q (test code = 1920-8) 12 U/L 10-30 ALT-Q (test code = 1742-6) 9 U/L 6-29 [place] (test code = [place]) PERFORMED BY [employer] [facility]; [address] [place] [address]; BRANDO OWENS M.D. Lab Interpretation (test code = 34141-7) Abnormal [facility] TexasCBC (H/H, RBC, INDICES,$WBC, PLT)-[id number] 23:00:00* Test Item Value Reference Range Interpretation [...] [place] (test code = [place]) PERFORMED BY [employer] [facility]; [address] [place] [phone]; BRANDO OWENS M.D. Lab Interpretation (test code = 75401-5) Abnormal [facility] [id number] 02:03:00* Test Item Value Reference Range Interpretation Comme nts ABO & RH (test code = 20) O NEGATIVE [facility] TexasABO [id number] 02:03:00* Test Item Value Reference Range Interpretation Comme nts ABO & RH (test code = 20) O NEGATIVE [facility] TexasXR CHEST 2 [id number] 23:21:54EXAM:XR CHEST 2 VW HISTORY: 33 years-old Female; Indication for study: Pre transplantevaluation day testing Pre transplant evaluation for same daytesting COMPARISON: None TECHNIQUE: Frontal and lateral chest radiographs were obtained. 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 Lungs/Pleura: Adequate lung volume. The lungs are clear with no focalconsolidation. There is no pleural effusion or pneumothorax. Heart/Mediastinum: The cardiomediastinal silhouette is normal. ? Bones and soft tissues: No acute abnormality detected. [facility] 2 [id number] 23:21:54EXAM:XR CHEST 2 VW HISTORY: 33 years-old Female; Indication for study: Pre transplantevaluation testing Pre transplant evaluation for same daytesting COMPARISON: None TECHNIQUE: Frontal and lateral chest radiographs were obtained. 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 Lungs/Pleura: Adequate lung volume. The lungs are clear with no focalconsolidation. There is no pleural effusion or pneumothorax. Heart/Mediastinum: The cardiomediastinal silhouette is normal. ? Bones and soft tissues: No acute abnormality detected. [facility] TexasTransthoracic echo (TTE)2024-04-09 23:11:12* Test Item Value Reference Range Interpretation Comme nts Height (test code = 5047155963) 61 in Weight (test code = 5839023992) 163 lbs Systolic BP (test code = 1379715383) 129 mmHg Diastolic BP (test code = 6805939408) 78 mmHg Heart Rate (test code = 7595634293) 77 bpm BSA (test code = 4045339925) 1.73 m2 Ao root diam (test code = 6313981219) 2.50 cm Aortic root (test code = 7270850354) 2.5 cm Ao root annulus (test code = 6212508547) 2.5 cm LA size (test code = 4060758798) 3.7 cm LVOT diameter (test code = 0855837892) 1.87 cm LVOT area (test code = 8938829501) 2.70 cm2 LVIDD (test code = 0705018130) 4.00 cm Left Ventricular End Diastolic Volume by Teichholz Method (test code = 5878898) 72.0 mL IVS (test code = 1524806482) 0.84 cm Interventricular Septum Diastolic Thickness by 2D (test code = 4678346) 0.84 cm LVPWD (test code = 2239119963) 0.82 cm PW (test code = 7309625129) 0.82 cm 0.6-1.1 EF(Teich) (test code = 6270272324) 63.20 % LVIDS (test code = 4309687158) 2.70 cm Left Ventricular End Systolic Volume by Teichholz Method (test code = 5164062) 26.5 mL FS (test code = 1266782932) 34 % EF - 2D (test code = 49295172) 63.20 % PV REGURGITATION PEAK GRADIENT (test code = 8563515771) 10.8 mmHg LAV(MOD-sp4) (test code = 0698384598) 28.20 mL MV Peak E Michelle (test code = 8631501602) 87.4 cm/s MV Peak A Michelle (test code = 6232642979) 59.1 cm/s E/A ratio (test code = 9906527519) 1.48 ratio E wave decelartion time (test code = 4318785901) 0.24 s MV E/e' septal (test code = 2158088979) 7.6 cm/s Tapse (test code = 1095292711) 2.09 cm LVOT stroke volume (test code = 6219251219) 60.10 cm3 LVOT peak michelle (test code = 7661065478) 116.5 cm/s LVOT mn grad (test code = 2320518553) 2.7 mmHg AV LVOT peak gradient (test code = 9694017038) 5.4 mmHg LVOT peak VTI (test code = 1805735305) 21.9 cm LV V1 mean (test code = 3154843392) 76.80 cm/s Aortic valve mean velocity (test code = 7946045702) 103.7 cm/s Ao peak michelle (test code = 5063165659) 166.8 cm/s Ao VTI (test code = 5194254784) 28.1 cm AV area by cont VTI (test code = 0939873674) 2.1 cm2 AV area peak michelle (test code = 4061616580) 1.9 cm2 Ao max PG (test code = 6153487977) 11.10 mm[Hg] AV peak gradient (test code = 1050814553) 11.1 mmHg AV valve area (test code = 8930396245) 2.14 cm2 AV mean gradient (test code = 4764808960) 5.0 mmHg LA Volume Index (BP) (test code = 7097607342) 18.7 mL/m2 LA volume (BP) (test code = 7975385016) 32.3 mL LAV(MOD-sp2) (test code = 7652424875) 33.00 mL Radiology Study observation (narrative) (test code = 33694-5) [place] (test code = [place]) ?Left?Ventricle: Left [...] enhancing agent used. Patient exhibited sinus rhythm. [facility] TexasTransthoracic echo (TTE)2024-04-09 23:11:12* Test Item Value Reference Range Interpretation Comme nts Height (test code = 6354093646) 61 in Weight (test code = 0596733096) 163 lbs Systolic BP (test code = 1448632088) 129 mmHg Diastolic BP (test code = 8652804521) 78 mmHg Heart Rate (test code = 8564898974) 77 bpm BSA (test code = 8568593905) 1.73 m2 Ao root diam (test code = 1024473842) 2.50 cm Aortic root (test code = 9384608392) 2.5 cm Ao root annulus (test code = 5515231286) 2.5 cm LA size (test code = 1612281350) 3.7 cm LVOT diameter (test code = 6026633525) 1.87 cm LVOT area (test code = 0418535970) 2.70 cm2 LVIDD (test code = 5034211115) 4.00 cm Left Ventricular End Diastolic Volume by Teichholz Method (test code = 3701621) 72.0 mL IVS (test code = 4059443180) 0.84 cm Interventricular Septum Diastolic Thickness by 2D (test code = 3125791) 0.84 cm LVPWD (test code = 3848280685) 0.82 cm PW (test code = 6382708681) 0.82 cm 0.6-1.1 EF(Teich) (test code = 1840511276) 63.20 % LVIDS (test code = 4442403675) 2.70 cm Left Ventricular End Systolic Volume by Teichholz Method (test code = 7760372) 26.5 mL FS (test code = 7249699163) 34 % EF - 2D (test code = 12909080) 63.20 % PV REGURGITATION PEAK GRADIENT (test code = 4749359585) 10.8 mmHg LAV(MOD-sp4) (test code = 7785921416) 28.20 mL MV Peak E Michelle (test code = 0794313428) 87.4 cm/s MV Peak A Michelle (test code = 8725095948) 59.1 cm/s E/A ratio (test code = 7919963211) 1.48 ratio E wave decelartion time (test code = 7898730410) 0.24 s MV E/e' septal (test code = 9680246220) 7.6 cm/s Tapse (test code = 3403720785) 2.09 cm LVOT stroke volume (test code = 1755790229) 60.10 cm3 LVOT peak michelle (test code = 0637103483) 116.5 cm/s LVOT mn grad (test code = 7028534918) 2.7 mmHg AV LVOT peak gradient (test code = 3406439505) 5.4 mmHg LVOT peak VTI (test code = 4554855941) 21.9 cm LV V1 mean (test code = 7772597407) 76.80 cm/s Aortic valve mean velocity (test code = 4349554898) 103.7 cm/s Ao peak michelle (test code = 7455700777) 166.8 cm/s Ao VTI (test code = 9441468241) 28.1 cm AV area by cont VTI (test code = 9107243434) 2.1 cm2 AV area peak michelle (test code = 4450714312) 1.9 cm2 Ao max PG (test code = 6506132657) 11.10 mm[Hg] AV peak gradient (test code = 9690343672) 11.1 mmHg AV valve area (test code = 2553746672) 2.14 cm2 AV mean gradient (test code = 6717030449) 5.0 mmHg LA Volume Index (BP) (test code = 2701365631) 18.7 mL/m2 LA volume (BP) (test code = 8063844058) 32.3 mL LAV(MOD-sp2) (test code = 8845402295) 33.00 mL Radiology Study observation (narrative) (test code = 83943-5) [place] (test code = [place]) ?Left?Ventricle: Left [...] enhancing agent used. Patient exhibited sinus rhythm. [facility] WO [id number] 19:45:53ORDERING PHYSICIAN: JAMILA WHEELER ABDOMEN AND PELVIS CT WITHOUT INTRAVENOUS CONTRAST. [...] in thepelvis. No acute osseous abnormality is identified.[facility] [id number] 09:00:00* Test Item Value Reference Range Interpretation Comme nts POCT PREG (test code = 1605) Negative On board controls acceptable with C Line (test code = 3574) Yes POCT PREG LOT # (test code = 3575) [id number] POCT PREG TEST DATE ( test code = 3576) 12/18/2024 Lab Interpretation (test cod e = 28289-4) Normal [facility],POST-VOID RES,US,[id number] 14:54:00* Test Item Value Reference Range Interpretation Comme nts PVR (URINE VOLUME) (test code = 5193) 5 ml 0-100 Lab Interpretation (test cod e = 49733-0) Normal [facility],POST-VOID RES,US,[id number] 14:54:00* Test Item Value Reference Range Interpretation Comme nts PVR (URINE VOLUME) (test code = 5193) 5 ml 0-100 Lab Interpretation (test cod e = 65378-5) Normal [facility],POST-VOID RES,US,[id number] 14:54:00* Test Item Value Reference Range Interpretation Comme nts PVR (URINE VOLUME) (test code = 5193) 5 ml 0-100 Lab Interpretation (test cod e = 98866-6) Normal [facility] Urinalysis W Specific [id number] 16:03:00* Test Item Value Reference Range Interpretation [...] CLEAR Lab Interpretation (test cod e = 57501-6) Normal [facility] Urinalysis W Specific [id number] 16:03:00* Test Item Value Reference Range Interpretation [...] CLEAR Lab Interpretation (test cod e = 35803-9) Normal [facility] Urinalysis W Specific [id number] 16:03:00* Test Item Value Reference Range Interpretation [...] CLEAR Lab Interpretation (test cod e = 84779-5) Normal [facility] [facility] [id number] 18:04:02 PROCEDURE: CT CHEST WITHOUT CONTRAST - [...] few in thesternum. The soft tissues appear normal.[facility] PULMONARY FUNCTION TEST (RESULTS)2023-11-22 13:49:09* Test Item Value Reference Range Interpretation Comme nts FVC Actual (test code = 3994) 2.97 L FEV1 Actual (test code = 3993) 2.69 L FEV1/FVC Actual (test code = 3995) 91 % [facility] Urinalysis w/o Specific [id number] 15:17:00* Test Item Value Reference Range Interpretation [...] = 3257) neg Negative - Negati ve [facility] Urinalysis w/o Specific [id number] 15:17:00* Test Item Value Reference Range Interpretation [...] = 3257) neg Negative - Negati ve [facility] Urinalysis w/o Specific [id number] 15:17:00* Test Item Value Reference Range Interpretation [...] = 3257) neg Negative - Negati ve [facility],POST-VOID RES,US,[id number] 00:00:00* Test Item Value Reference Range Interpretation Comme nts PVR (URINE VOLUME) (test code = 5193) 0 ml 0-100 [facility],POST-VOID RES,US,[id number] 00:00:00* Test Item Value Reference Range Interpretation Comme nts PVR (URINE VOLUME) (test code = 5193) 0 ml 0-100 [facility],POST-VOID RES,US,[id number] 00:00:00* Test Item Value Reference Range Interpretation Comme nts PVR (URINE VOLUME) (test code = 5193) 0 ml 0-100 [facility], [id number] 10:45:38SPECIMEN NUMBER: [id number] CULTURE, URINE SPECIMEN NUMBER: [id number] SPECIMEN COMMENT: URINE SOURCE: URINE REPORT STATUS: FINAL FINAL REPORT: 09/21/2023 <10,000 CFU/ML UROGENITAL PAOLA PRESENT NO COMMON PATHOGENSCULTURE, [id number] 00:00:00* Test Item Value Reference Range Interpretation Comme nts CULTURE, URINE (test code = 63873) SPECIMEN NUMBER: [id number] Hi BañuelosCULTFRANCIS, [id number] 00:00:00* Test Item Value Reference Range Interpretation Comme nts CULTURE, URINE (test code = 29751) SPECIMEN NUMBER: [id number] Hi Garcia AustinINTACT [id number] 10:35:54* Test Item Value Reference Range Interpretation Comme nts INTACT PTH (test code = 5005) 145 PG/ML 15-65 H INTACT [id number] 10:06:40* Test Item Value Reference Range Interpretation Comme nts INTACT PTH (test code = 5005) 158 PG/ML 15-65 H UNLESS OTHERWISE INDICATED, ALL TESTING PERFORMED AT [facility] [address] [place] [address] SCANNER OPERATOR: TOM COLLINS M.D. CLIA NUMBER [id number] [facility]. [id number] VITAMIN D, 25 [id number] 06:52:58* Test Item Value Reference Range Interpretation [...] . . . . . NG/ML 30-100 [id number] 06:44:55* Test Item Value Reference Range Interpretation Comme nts PHOSPHORUS (test code = 2227) 3.6 MG/DL 2.5-4.5 UNLESS OTHERWISE INDICATED, ALL TESTING PERFORMED AT [facility] [address] [place] [address] SCANNER OPERATOR: TOM COLLINS M.D. CLIA NUMBER [id number] [facility] [place]. [id number] LIPID [id number] 06:00:14* Test Item Value Reference Range Interpretation [...] SPECIMENS. FOR MOREINFORMATION, SEE CLIENT ANNOUNCEMENT AT [email or web address] RISK RATIO LDL/HDL (test code = 2238) 4.63 RATIO <3.22 H COMPREHENSIVE METABOLIC [id number] 06:00:14* Test Item Value Reference Range Interpretation Comme nts GLUCOSE (test code = 2217) 89 MG/DL 70-99 BUN (test code = 2208) 33 MG/DL 6-20 H CREATININE (test code = 2214) 3.25 MG/DL 0.60-1.30 H eGFR (2020 CKD-EPI) (test co de = 19615) 19 ML/MIN/1.73 >60 L CALC BUN/CREAT (test code = 2234) 10 RATIO 6-28 SODIUM (test code = 2230) 139 MEQ/L 133-146 POTASSIUM (test code = 2227) 5.2 MEQ/L 3.5-5.4 CHLORIDE (test code = 2214) 108 MEQ/L 95-107 H CARBON DIOXIDE (test code = 2205) 17 MEQ/L 19-31 L CALCIUM (test code = 2208) 9.5 MG/DL 8.5-10.5 PROTEIN, TOTAL (test code = 2228) 7.4 G/DL 6.1-8.3 ALBUMIN (test code = 2200) 4.4 G/DL 3.5-5.2 CALC GLOBULIN (test code = 2239) 3.0 G/DL 1.9-3.7 CALC A/G RATIO (test code = 2233) 1.5 RATIO 1.0-2.6 BILIRUBIN, TOTAL (test code = 2206) <0.2 MG/DL <=1.2 ALKALINE PHOSPHATASE (test code = 2203) 94 U/L 40-114 AST (test code = 2217) 14 U/L 9-40 ALT (test code = 2218) 10 U/L 5-40 ALBUMIN/CREATININE RATIO, URINE, [id number] 05:04:11* Test Item Value Reference Range Interpretation Comme nts CREATININE, URINE, CONC. (test code = 207) 93.9 MG/DL NOT ESTAB ALBUMIN, URINE, RANDOM (test code = 05205) 2.2 MG/DL NOT ESTAB CALC ALBUMIN/CREAT, RND (test code = 92883) 23 MG/G <30 Note: Albumin/Creatinine ratio reference interval reflects ADA and NKF guidelines. HEMOGLOBIN [id number] 04:41:19* Test Item Value Reference Range Interpretation Comme nts HEMOGLOBIN A1c (test code = 31754) 5.4 % 4.2-5.6 URINALYSIS WITH [id number] 03:18:39* Test Item Value Reference Range Interpretation [...] /HPF 0-2 EPITHELIAL CELLS (test code = 96740) 0-5 /HPF 0-10 BACTERIA (test code = 1515) NONE SEEN NONE SEEN CASTS, HYALINE (test code = 1517) NONE SEEN NONE-TRACE HEMOGLOBIN [id number] 00:00:00* Test Item Value Reference Range Interpretation Comme nts HEMOGLOBIN A1c (test code = 06878) 5.4 % Hi BañuelosINTACT [id number] 00:00:00* Test Item Value Reference Range Interpretation Comme nts INTACT PTH (test code = 5005) 145 PG/ML Hi BañuelosLIPID [id number] 00:00:00* Test Item Value Reference Range Interpretation Comme nts CHOLESTEROL (test code = 2210) 196 MG/DL TRIGLYCERIDES (test code = 2232) 286 MG/DL HDL CHOLESTEROL (test code = 2220) 27 MG/DL CALC LDL CHOL (test code = 2237) 125 MG/DL RISK RATIO LDL/HDL (test cod e = 2238) 4.63 RATIO Hi BañuelosCOMPREHENSIVE METABOLIC [id number] 00:00:00* Test Item Value Reference Range Interpretation Comme nts GLUCOSE (test code = 2217) 89 MG/DL BUN (test code = 2208) 33 MG/DL CREATININE (test code = 2214) 3.25 MG/DL eGFR (2020 CKD-EPI) (test co de = 90201) 19 ML/MIN/1.73 CALC BUN/CREAT (test code = 2235) 10 RATIO SODIUM (test code = 2231) 139 MEQ/L POTASSIUM (test code = 2228) 5.2 MEQ/L CHLORIDE (test code = 2215) 108 MEQ/L CARBON DIOXIDE (test code = 2206) 17 MEQ/L CALCIUM (test code = 2209) 9.5 MG/DL PROTEIN, TOTAL (test code = 2229) 7.4 G/DL ALBUMIN (test code = 2201) 4.4 G/DL CALC GLOBULIN (test code = 2240) 3.0 G/DL CALC A/G RATIO (test code = 2234) 1.5 RATIO BILIRUBIN, TOTAL (test code = 2207) <0.2 MG/DL ALKALINE PHOSPHATASE (test code = 2204) 94 U/L AST (test code = 2218) 14 U/L ALT (test code = 2219) 10 U/L Hi Garcia SarmadURINALYSIS WITH [id number] 00:00:00* Test Item Value Reference Range Interpretation Comme nts COLOR (test code = 1501) YELLOW APPEARANCE (test code = 1502) CLEAR SPECIFIC GRAVITY (test code = 1503) 1.012 LEUKOCYTE ESTERASE (test cod e = 1504) NEGATIVE NITRITE (test code = 1505) NEGATIVE pH (test code = 1506) 6.5 PROTEIN (test code = 1507) TRACE GLUCOSE (test code = 1508) NEGATIVE KETONES (test code = 1509) NEGATIVE UROBILINOGEN (test code = 1510) 0.2 MG/DL BILIRUBIN (test code = 1511) NEGATIVE OCCULT BLOOD (test code = 1512) NEGATIVE WHITE BLOOD CELLS (test code = 1513) 0-5 /HPF RED BLOOD CELLS (test code = 1514) 0-2 /HPF EPITHELIAL CELLS (test code = 32484) 0-5 /HPF BACTERIA (test code = 1515) NONE SEEN CASTS, HYALINE (test code = 1517) NONE SEEN Hi BañuelosVITAMIN D, 25 [id number] 00:00:00* Test Item Value Reference Range Interpretation Comme [facility] VITAMIN D, 25 OH (test code = 4958) 44 NG/ML Hi Radha SarmadALBUMIN/CREATININE RATIO, RANDOM [id number] 00:00:00* Test Item Value Reference Range Interpretation Comme [facility] CREATININE, URINE, CONC. (te st code = 2072) 93.9 MG/DL ALBUMIN, URINE, RANDOM (test code = 91678) 2.2 MG/DL CALC ALBUMIN/CREAT, RND (munira t code = 08748) 23 MG/G Hi [id number] 00:00:00* Test Item Value Reference Range Interpretation Comme nts PHOSPHORUS (test code = 2227) 3.6 MG/DL Hi BañuelosHEMOGLOBIN [id number] 00:00:00* Test Item Value Reference Range Interpretation Comme nts HEMOGLOBIN A1c (test code = 85967) 5.4 % Hi BañuelosINTACT [id number] 00:00:00* Test Item Value Reference Range Interpretation Comme nts INTACT PTH (test code = 5005) 145 PG/ML Hi BañuelosLIPID [id number] 00:00:00* Test Item Value Reference Range Interpretation Comme nts CHOLESTEROL (test code = 2210) 196 MG/DL TRIGLYCERIDES (test code = 2232) 286 MG/DL HDL CHOLESTEROL (test code = 2220) 27 MG/DL CALC LDL CHOL (test code = 2237) 125 MG/DL RISK RATIO LDL/HDL (test cod e = 2238) 4.63 RATIO Hi BañuelosCOMPREHENSIVE METABOLIC [id number] 00:00:00* Test Item Value Reference Range Interpretation Comme nts GLUCOSE (test code = 2217) 89 MG/DL BUN (test code = 2208) 33 MG/DL CREATININE (test code = 2214) 3.25 MG/DL eGFR (2020 CKD-EPI) (test co de = 74062) 19 ML/MIN/1.73 CALC BUN/CREAT (test code = 2235) 10 RATIO SODIUM (test code = 2231) 139 MEQ/L POTASSIUM (test code = 2228) 5.2 MEQ/L CHLORIDE (test code = 2215) 108 MEQ/L CARBON DIOXIDE (test code = 2206) 17 MEQ/L CALCIUM (test code = 2209) 9.5 MG/DL PROTEIN, TOTAL (test code = 2229) 7.4 G/DL ALBUMIN (test code = 2201) 4.4 G/DL CALC GLOBULIN (test code = 2240) 3.0 G/DL CALC A/G RATIO (test code = 2234) 1.5 RATIO BILIRUBIN, TOTAL (test code = 2207) <0.2 MG/DL ALKALINE PHOSPHATASE (test code = 2204) 94 U/L AST (test code = 2218) 14 U/L ALT (test code = 2219) 10 U/L Hi BañuelosURINALYSIS WITH [id number] 00:00:00* Test Item Value Reference Range Interpretation Comme nts COLOR (test code = 1501) YELLOW APPEARANCE (test code = 1502) CLEAR SPECIFIC GRAVITY (test code = 1503) 1.012 LEUKOCYTE ESTERASE (test cod e = 1504) NEGATIVE NITRITE (test code = 1505) NEGATIVE pH (test code = 1506) 6.5 PROTEIN (test code = 1507) TRACE GLUCOSE (test code = 1508) NEGATIVE KETONES (test code = 1509) NEGATIVE UROBILINOGEN (test code = 1510) 0.2 MG/DL BILIRUBIN (test code = 1511) NEGATIVE OCCULT BLOOD (test code = 1512) NEGATIVE WHITE BLOOD CELLS (test code = 1513) 0-5 /HPF RED BLOOD CELLS (test code = 1514) 0-2 /HPF EPITHELIAL CELLS (test code = 71744) 0-5 /HPF BACTERIA (test code = 1515) NONE SEEN CASTS, HYALINE (test code = 1517) NONE SEEN Hi BañuelosVITAMIN D, 25 [id number] 00:00:00* Test Item Value Reference Range Interpretation Comme pepper VITAMIN D, 25 OH (test code = 4958) 44 NG/ML Hi BañuelosALBUMIN/CREATININE RATIO, RANDOM [id number] 00:00:00* Test Item Value Reference Range Interpretation Comme pepper CREATININE, URINE, CONC. (te st code = 2072) 93.9 MG/DL ALBUMIN, URINE, RANDOM (test code = 07661) 2.2 MG/DL CALC ALBUMIN/CREAT, RND (munira t code = 19753) 23 MG/G Hi [id number] 00:00:00* Test Item Value Reference Range Interpretation Comme pepper PHOSPHORUS (test code = 2227) 3.6 MG/DL Hi BañuelosPOCT [id number] 01:23:00* Test Item Value Reference Range Interpretation Comme pepper POCT PREG (test code = 1605) Negative On board controls acceptable with C Line (test code = 3574) Yes POCT PREG LOT # (test code = 1465) [id number] POCT PREG TEST DATE ( test code = 3576) 11-15-2024 Lab Interpretation (test cod e = 08879-4) [facility] [id number] 00:00:00* Test Item Value Reference Range Interpretation Comme nts GLUCOSE (test code = 2217) 95 MG/DL BUN (test code = 2208) 38 MG/DL CREATININE (test code = 2214) 2.32 MG/DL eGFR (2020 CKD-EPI) (test co de = 59234) 28 ML/MIN/1.73 CALC BUN/CREAT (test code = 2235) 16 RATIO SODIUM (test code = 2231) 139 MEQ/L POTASSIUM (test code = 2228) 5.5 MEQ/L CHLORIDE (test code = 2215) 107 MEQ/L CARBON DIOXIDE (test code = 2206) 17 MEQ/L CALCIUM (test code = 2209) 10.0 MG/DL PROTEIN, TOTAL (test code = 2229) 8.1 G/DL ALBUMIN (test code = 2201) 4.6 G/DL CALC GLOBULIN (test code = 2240) 3.5 G/DL CALC A/G RATIO (test code = 2234) 1.3 RATIO BILIRUBIN, TOTAL (test code = 2207) 0.2 MG/DL ALKALINE PHOSPHATASE (test code = 2204) 114 U/L AST (test code = 2218) 14 U/L ALT (test code = 2219) 10 U/L Hi Garcia SarmadLIPID [id number] 00:00:00* Test Item Value Reference Range Interpretation Comme nts CHOLESTEROL (test code = 2210) 186 MG/DL TRIGLYCERIDES (test code = 2232) 253 MG/DL HDL CHOLESTEROL (test code = 2220) 32 MG/DL CALC LDL CHOL (test code = 2237) 118 MG/DL RISK RATIO LDL/HDL (test cod e = 2238) 3.69 RATIO Hi Garcia SarmadCBC W/AUTO [id number] 00:00:00* Test Item Value Reference Range Interpretation Comme nts WBC (test code = 1001) 9.1 K/UL RBC (test code = 1002) 4.07 M/UL HEMOGLOBIN (test code = 1003) 12.5 G/DL HEMATOCRIT (test code = 1004) 36.0 % MCV (test code = 1005) 88.5 fL MCH (test code = 1006) 30.7 PG MCHC (test code = 1007) 34.7 G/DL RDW (test code = 1038) 12.4 % NEUTROPHILS (test code = 1008) 61.4 % LYMPHOCYTES (test code = 1010) 29.9 % MONOCYTES (test code = 1011) 6.6 % EOSINOPHILS (test code = 1012) 0.7 % BASOPHILS (test code = 1013) 0.3 % IMMATURE GRANULOCYTES (test code = 1036) 1.1 % NUCLEATED RBCS (test code = 1065) 0.0 /100WBC'S PLATELET COUNT (test code = 1015) 439 K/UL ABSOLUTE NEUTROPHILS (test c ode = 1066) 5.56 K/UL ABSOLUTE LYMPHOCYTES (test c ode = 1067) 2.71 K/UL ABSOLUTE MONOCYTES (test cod e = 1068) 0.60 K/UL ABSOLUTE EOSINOPHILS (test c ode = 1040) 0.06 K/UL ABSOLUTE BASOPHILS (test cod e = 1069) 0.03 K/UL ABS IMMATURE GRANULOCYTES (t est code = 1020) 0.10 K/UL ABS NUCLEATED RBCS (test cod e = 37229) 0.00 K/UL Hi Garcia SarmadHEMOGLOBIN [id number] 00:00:00* Test Item Value Reference Range Interpretation Comme nts HEMOGLOBIN A1c (test code = 09244) 5.5 % Hi Garcia SarmadCOMPREHENSIVE METABOLIC [id number] 00:00:00* Test Item Value Reference Range Interpretation Comme nts GLUCOSE (test code = 2217) 95 MG/DL BUN (test code = 2208) 38 MG/DL CREATININE (test code = 2214) 2.32 MG/DL eGFR (2020 CKD-EPI) (test co de = 88865) 28 ML/MIN/1.73 CALC BUN/CREAT (test code = 2235) 16 RATIO SODIUM (test code = 2231) 139 MEQ/L POTASSIUM (test code = 2228) 5.5 MEQ/L CHLORIDE (test code = 2215) 107 MEQ/L CARBON DIOXIDE (test code = 2206) 17 MEQ/L CALCIUM (test code = 2209) 10.0 MG/DL PROTEIN, TOTAL (test code = 2229) 8.1 G/DL ALBUMIN (test code = 2201) 4.6 G/DL CALC GLOBULIN (test code = 2240) 3.5 G/DL CALC A/G RATIO (test code = 2234) 1.3 RATIO BILIRUBIN, TOTAL (test code = 2207) 0.2 MG/DL ALKALINE PHOSPHATASE (test code = 2204) 114 U/L AST (test code = 2218) 14 U/L ALT (test code = 2219) 10 U/L Hi BañuelosLIPID [id number] 00:00:00* Test Item Value Reference Range Interpretation Comme nts CHOLESTEROL (test code = 2210) 186 MG/DL TRIGLYCERIDES (test code = 2232) 253 MG/DL HDL CHOLESTEROL (test code = 2220) 32 MG/DL CALC LDL CHOL (test code = 2237) 118 MG/DL RISK RATIO LDL/HDL (test cod e = 2238) 3.69 RATIO Hi BañuelosCBC W/AUTO [id number] 00:00:00* Test Item Value Reference Range Interpretation Comme nts WBC (test code = 1001) 9.1 K/UL RBC (test code = 1002) 4.07 M/UL HEMOGLOBIN (test code = 1003) 12.5 G/DL HEMATOCRIT (test code = 1004) 36.0 % MCV (test code = 1005) 88.5 fL MCH (test code = 1006) 30.7 PG MCHC (test code = 1007) 34.7 G/DL RDW (test code = 1038) 12.4 % NEUTROPHILS (test code = 1008) 61.4 % LYMPHOCYTES (test code = 1010) 29.9 % MONOCYTES (test code = 1011) 6.6 % EOSINOPHILS (test code = 1012) 0.7 % BASOPHILS (test code = 1013) 0.3 % IMMATURE GRANULOCYTES (test code = 1036) 1.1 % NUCLEATED RBCS (test code = 1065) 0.0 /100WBC'S PLATELET COUNT (test code = 1015) 439 K/UL ABSOLUTE NEUTROPHILS (test c ode = 1066) 5.56 K/UL ABSOLUTE LYMPHOCYTES (test c ode = 1067) 2.71 K/UL ABSOLUTE MONOCYTES (test cod e = 1068) 0.60 K/UL ABSOLUTE EOSINOPHILS (test c ode = 1040) 0.06 K/UL ABSOLUTE BASOPHILS (test cod e = 1069) 0.03 K/UL ABS IMMATURE GRANULOCYTES (t est code = 1020) 0.10 K/UL ABS NUCLEATED RBCS (test cod e = 42500) 0.00 K/UL Hi BañuelosHEMOGLOBIN [id number] 00:00:00* Test Item Value Reference Range Interpretation Comme nts HEMOGLOBIN A1c (test code = 46902) 5.5 % Hi BañuelosHIV 1/2 AG-AB WITH [id number] 17:57:25* Test Item Value Reference Range Interpretation Comme nts HIV Semi-quantitative (test code = 86887-9) Negative Negative [place] (test code = [place]) Non-reactive for HIV-1 antigen and HIV-1/HIV-2 antibodies. ?No laboratory evidence of HIV infection. ?Repeat in 2-4 weeks if acute HIV infection is suspected. [facility] METABOLIC PANEL (NA, K, CL, CO2, GLUCOSE, BUN, CREATININE, CA)2022-08-17 17:21:19* Test Item Value Reference Range Interpretation Comme nts NA (test code = 1431857249) 142 mmol/L 135-145 K (test code = 7495508954) 4.9 mmol/L 3.5-5 CL (test code = 3929181967) 106 mmol/L 98-108 CO2 TOTAL (test code = 6371572823) 21 mmol/L 23-31 L AGAP (test code = 5547166081) 2-16 BUN (test code = 7136094553) 25 mg/dL 7-23 H GLUCOSE (test code = 2675108537) 95 mg/dL 70-110 CREATININE (test code = 3895743624) 2.10 mg/dL 0.5-1.04 H CALCIUM (test code = 9742739390) 9.8 mg/dL 8.6-10.6 eGFR (test code = 9854262479) mL/min/1.73m2 [place] (test code = [place]) Association [...] imaging tests). Lab Interpretation (test code = 03656-4) [facility] 17:20:59* Test Item Value Reference Range Interpretation Comme [facility] PHOSPHORUS (test code = 0900396869) 3.6 mg/dL 2.5-5 Lab Interpretation (test cod e = 74600-2) [facility] [id number] 17:20:59* Test Item Value Reference Range Interpretation Comme nts URIC ACID (test code = 5064050403) 8.5 mg/dL 2.9-6 H Lab Interpretation (test cod e = 38981-6) [facility] WITH [id number] 15:27:41* Test Item Value Reference Range Interpretation Comme nts WBC (test code = 6690-2) See_Comment [Automated [employer]] The system which generated this result transmitted reference range: 4.30 - 11.10 10*3/?L. The reference range was not used to interpret this result as normal/abnormal. RBC (test code = 789-8) See_Comment [Automated messa ge] The system which [...] 32.2 g/dL 31.6-35.1 RDW-SD (test code = 60801-1) 42.8 fL 39-49.9 RDW-CV (test code = 788-0) 12.3 % 12-15.5 PLT (test code = 777-3) See_Comment H [Automated messa ge] The system which generated this result transmitted reference range: 166 - 358 10*3/?L. The reference range was not used to interpret this result as normal/abnormal. MPV (test code = 30221-3) 9.5 fL 9.5-12.9 NRBC/100 WBC (test code = 1228757613) See_Comment [Automated [employer] ssage] The system which generated this result transmitted reference range: 0.0 - 10.0 /100 WBCs. The reference range was not used to interpret this result as normal/abnormal. NRBC x10^3 (test code = 0742606388) See_Comment [Automated messa ge] The system which generated this result transmitted reference range: 10*3/?L. The reference range was not used to interpret this result as normal/abnormal. GRAN MAT (NEUT) % (test code = 770-8) 68.1 % IMM GRAN % (test code = 7115872372) 0.70 % LYMPH % (test code = 736-9) 24.1 % MONO % (test code = 5905-5) 6.0 % EOS % (test code = 713-8) 0.6 % BASO % (test code = 706-2) 0.5 % GRAN MAT x10^3(ANC) (test code = 6917623674) 5.47 10*3/uL 1.88-7.09 IMM GRAN x10^3 (test code = 9438498567) 0.06 10*3/uL 0-0.06 LYMPH x10^3 (test code = 731-0) 1.94 10*3/uL 1.32-3.29 MONO x10^3 (test code = 742-7) 0.48 10*3/uL 0.33-0.92 EOS x10^3 (test code = 711-2) 0.05 10*3/uL 0.03-0.39 BASO x10^3 (test code = 704-7) 0.04 10*3/uL 0.01-0.07 Lab Interpretation (test code = 06398-7) [facility] [id number] 00:00:00 * Test Item Value Reference Range Interpretation Comme nts EMILY SPECIES (test code = 30742) POSITIVE G. VAGINALIS (test code = 56548) NEGATIVE T. VAGINALIS (test code = 21675) NEGATIVE Hi BañuelosVAGINAL PATHOGENS DNA [id number] 00:00:00* Test Item Value Reference Range Interpretation Comme nts EMILY SPECIES (test code = 14275) POSITIVE G. VAGINALIS (test code = 48117) NEGATIVE T. VAGINALIS (test code = 91330) NEGATIVE [facility] [id number] 05:36:56* Test Item Value Reference Range Interpretation Comme nts TSH, THIRD GENERATION (test code = 2821) 2.460 UIU/ML 0.400-4.100 UNLESS OTHERWISE INDICATED, ALL TESTING PERFORMED [facility] [address] [place] [address] SCANNER OPERATOR: ARNIE HAYES M.D. CLIA NUMBER [id number] [place]. [id number] COMPREHENSIVE METABOLIC [id number] 03:24:51* Test Item Value Reference Range Interpretation Comme nts GLUCOSE (test code = 2217) 104 MG/DL 70-99 H BUN (test code = 2208) 33 MG/DL 6-20 H CREATININE (test code = 2214) 1.95 MG/DL 0.60-1.30 H eGFR (2020 CKD-EPI) (test code = 43826) 35 ML/MIN/1.73 >60 L CALC BUN/CREAT (test code = 2235) 17 RATIO 6-28 SODIUM (test code = 223) 140 MEQ/L 133-146 POTASSIUM (test code = [...] (test code = 2219) 11 U/L 5-40 COMPREHENSIVE METABOLIC [id number] 00:00:00* Test Item Value Reference Range Interpretation Comme nts GLUCOSE (test code = 2217) 104 MG/DL BUN (test code = 2208) 33 MG/DL CREATININE (test code = 2214) 1.95 MG/DL eGFR (2020 CKD-EPI) (test co de = 86649) 35 ML/MIN/1.73 CALC BUN/CREAT (test code = 2235) 17 RATIO SODIUM (test code = 2231) 140 MEQ/L POTASSIUM (test code = 2228) 4.2 MEQ/L CHLORIDE (test code = 2215) 104 MEQ/L CARBON DIOXIDE (test code = 2206) 21 MEQ/L CALCIUM (test code = 2209) 9.7 MG/DL PROTEIN, TOTAL (test code = 2229) 8.1 G/DL ALBUMIN (test code = 2201) 4.7 G/DL CALC GLOBULIN (test code = 2240) 3.4 G/DL CALC A/G RATIO (test code = 2234) 1.4 RATIO BILIRUBIN, TOTAL (test code = 2207) <0.2 MG/DL ALKALINE PHOSPHATASE (test code = 2204) 134 U/L AST (test code = 2218) 12 U/L ALT (test code = 2219) 11 U/L Hi Garcia [id number] 00:00:00* Test Item Value Reference Range Interpretation Comme nts TSH, THIRD GENERATION (test code = 2821) 2.460 UIU/ML Hi Garcia AustinCOMPREHENSIVE METABOLIC [id number] 00:00:00* Test Item Value Reference Range Interpretation Comme nts GLUCOSE (test code = 2217) 104 MG/DL BUN (test code = 2208) 33 MG/DL CREATININE (test code = 2214) 1.95 MG/DL eGFR (2020 CKD-EPI) (test co de = 92213) 35 ML/MIN/1.73 CALC BUN/CREAT (test code = 2235) 17 RATIO SODIUM (test code = 2231) 140 MEQ/L POTASSIUM (test code = 2228) 4.2 MEQ/L CHLORIDE (test code = 2215) 104 MEQ/L CARBON DIOXIDE (test code = 2206) 21 MEQ/L CALCIUM (test code = 2209) 9.7 MG/DL PROTEIN, TOTAL (test code = 2229) 8.1 G/DL ALBUMIN (test code = 2201) 4.7 G/DL CALC GLOBULIN (test code = 2240) 3.4 G/DL CALC A/G RATIO (test code = 2234) 1.4 RATIO BILIRUBIN, TOTAL (test code = 2207) <0.2 MG/DL ALKALINE PHOSPHATASE (test code = 2204) 134 U/L AST (test code = 2218) 12 U/L ALT (test code = 2219) 11 U/L Hi [id number] 00:00:00* Test Item Value Reference Range Interpretation Comme nts TSH, THIRD GENERATION (test code = 2821) 2.460 UIU/ML Hi Garcia DenisonFERRITIN [id number] 19:05:22* Test Item Value Reference Range Interpretation Comme nts FERRITIN (test code = 5244948982) 203.0 ng/mL 6.0-137.0 H [place] (test code = [place]) Biotin has been reported to cause a negative bias, interpret results relative to patient's use of biotin. Lab Interpretation (test code = 38390-1) Abnormal [facility] IRON BINDING [id number] 18:37:34 * Test Item Value Reference Range Interpretation Comme nts TIBC (test code = 9598062996) 271 ug/dL 250-410 Lab Interpretation (test cod e = 80289-7) Normal [facility]. METABOLIC PANEL (76078)2021-12-24 18:27:10* Test Item Value Reference Range Interpretation Comme nts NA (test code = 7054427247) 140 mmol/L 135-145 K (test code = 7883109537) 4.7 mmol/L 3.5-5.0 CL (test code = 4227907801) 108 mmol/L 98-108 CO2 TOTAL (test code = 2167291523) 21 mmol/L 23-31 L AGAP (test code = 5037654585) 2-16 BUN (test code = 7575254399) 22 mg/dL 7-23 GLUCOSE (test code = 5609570382) 83 mg/dL 70-110 CREATININE (test code = 9910790105) 2.00 mg/dL 0.50-1.04 H TOTAL BILI (test code = 5478187627) 0.4 mg/dL 0.1-1.1 CALCIUM (test code = 2040101401) 9.7 mg/dL 8.6-10.6 T PROTEIN (test code = 2091131893) 8.4 g/dL 6.3-8.2 H ALBUMIN (test code = 5298057824) 4.6 g/dL 3.5-5.0 ALK PHOS (test code = 6486802747) 125 U/L 34-122 H ALTv (test code = 1742-6) 13 U/L 5-35 AST(SGOT) (test code = 1923041828) 20 U/L 13-40 eGFR (test code = 5741364453) mL/min/1.73m2 [place] (test code = [place]) Association [...] imaging tests). Lab Interpretation (test code = 55773-9) Abnormal [facility] WITH [id number] 18:10:27* Test Item Value Reference Range Interpretation Comme nts WBC (test code = 6690-2) See_Comment [Automated [employer]] The system which generated this result transmitted reference range: 4.30 - 11.10 10*3/?L. The reference range was not used to interpret this result as normal/abnormal. RBC (test code = 789-8) See_Comment [Autom[employer]] The system which generated this result transmitted [...] 31.8 g/dL 31.6-35.1 RDW-SD (test code = 88812-0) 42.7 fL 39.0-49.9 RDW-CV (test code = 788-0) 12.4 % 12.0-15.5 PLT (test code = 777-3) See_Comment H [Automated messa ge] The system which generated this result transmitted reference range: 166 - 358 10*3/?L. The reference range was not used to interpret this result as normal/abnormal. MPV (test code = 91236-7) 9.9 fL 9.5-12.9 NRBC/100 WBC (test code = 6557240429) See_Comment [Automated [employer] ssage] The system which generated this result transmitted reference range: 0.0 - 10.0 /100 WBCs. The reference range was not used to interpret this result as normal/abnormal. NRBC x10^3 (test code = 0056970288) <0.01 See_Comment [Automated messa ge] The system which generated this result transmitted reference range: 10*3/?L. The reference range was not used to interpret this result as normal/abnormal. GRAN MAT (NEUT) % (test code = 770-8) 66.2 % IMM GRAN % (test code = 7442736149) 1.20 % LYMPH % (test code = 736-9) 24.3 % MONO % (test code = 5905-5) 7.1 % EOS % (test code = 713-8) 0.8 % BASO % (test code = 706-2) 0.4 % GRAN MAT x10^3(ANC) (test code = 8699949367) 7.14 10*3/uL 1.88-7.09 H IMM GRAN x10^3 (test code = 6268118118) 0.13 10*3/uL 0.00-0.06 H LYMPH x10^3 (test code = 731-0) 2.62 10*3/uL 1.32-3.29 MONO x10^3 (test code = 742-7) 0.76 10*3/uL 0.33-0.92 EOS x10^3 (test code = 711-2) 0.09 10*3/uL 0.03-0.39 BASO x10^3 (test code = 704-7) 0.04 10*3/uL 0.01-0.07 Lab Interpretation (test code = 79504-0) [facility] ([facility])2020-10-22 00:00:00* Test Item Value Reference Range Interpretation Comme nts Glucose (test code = 2345-7) 83 65-99 BUN (test code = 3094-0) 14 6-20 Creatinine (test code = 2160-0) 1.10 0.57-1.00 eGFR If NonAfricn Am (test c ode = 57730-9) 68 >59 eGFR If Africn Am (test code = 85727-9) 78 >59 BUN/Creatinine Ratio (test c ode = 3097-3) 13 9-23 Sodium (test code = 2951-2) 140 134-144 Potassium (test code = 2823-3) 4.9 3.5-5.2 Chloride (test code = 2075-0) 106 96-106 Carbon Dioxide, Total (test code = 2027-9) 21 20-29 Calcium (test code = 12483-0) 9.6 8.7-10.2 Protein, Total (test code = 2885-2) 7.6 6.0-8.5 Albumin (test code = 1751-7) 4.3 3.9-5.0 Globulin, Total (test code = 09503-9) 3.3 1.5-4.5 A/G Ratio (test code = 1759-0) 1.3 1.2-2.2 Bilirubin, Total (test code = 1975-2) 0.2 0.0-1.2 Alkaline Phosphatase (test c ode = 6768-6) 115 39-117 AST (SGOT) (test code = 1920-8) 30 0-40 ALT (SGPT) (test code = 1742-6) 32 0-32 [O] Urine Dipstick (In Office)2018-05-01 10:25:00* Test Item Value Reference Range Interpretation Comme nts LEUKOCYTES (test code = LEUKOCYTES) Negative N NITRITE; Normal (test code = 38047-1) Negative N UROBILINOGEN; Normal (test c ode = 23362-9) 0.2 N PROTEIN (test code = 07488-1) 30 pH (test code = pH) 7.0 N URINE BLOOD (test code = 79562-5) Trace-Intact SPECIFIC GRAVITY; Normal (te st code = 2965-2) 1.020 N KETONES; Normal (test code = 17986-1) Negative N BILIRUBIN; Normal (test code = 53755-0) Neative N GLUCOSE; Normal (test code = 1547-9) Negative N [facility] Consult Notes Date/Time Note Provider Source 2024-06-26 11:04:20 Associated Order(s): CONSULT NEPHROLOGY NEPHROLOGY CONSULT NOTE Reason For consult: CKD IV/V with renal angiomyolipomas Consult By: Toshia Crowley DO CC: L flank plain, dysuria HPI: Kitty Wall is a 33 year old female with PMH of tuberous sclerosis, CKD IV, seizures, anxiety, depression, and renal angiomyolipomas. 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 She denies hematuria but reports florinda pyuria and fever, and leukocytosis has been seen on CBC for the duration of this admission. She is undergoing treatment for UTI currently. She describes making some urine, ~2 cups yesterday. Her serum BUN and Cr have been fluctuating over the last ten days, reaching their greatest values today at 3.47 and 4.05, respectively. Otherwise, her electrolytes have been near normal until today when serum Na has decreased to 133 and K increased to 5.6. The patient denies anorexia, nausea, vomiting, confusion, and pruritus. A CT angiogram abd/pelvis on 06/19 revealed no change in a previously identified perinephric hematoma without evidence of active extravasation. HD consent obtained and uploaded on file Past Medical History: Diagnosis Date Angiomyolipoma of [...] N/A 2021 Surgeon: Joshua Lopez MD; Location: [place] OR Location IR EMBOLIZATION ARTERIAL OTHER THAN [...] 2016 at OSH SURGERY,BRAIN/SPINE,W/COMPUTER TOOTH EXTRACTION 2019 Social History Tobacco Use Smoking status: Never Passive exposure: Never Smokeless tobacco: Never Substance Use Topics Alcohol use: Never Drug use: Never Family History Problem Relation Age of Onset Other - see comments Mother angiomyolipoma Kidney failure Mother Other - see comments Brother angiomyolipoma, brain tumor MS (multiple sclerosis) Father Hypothyroidism Other Stroke Maternal Aunt CA (myocardial infarction) Maternal Aunt Hypertension Maternal Grandmother Hypercholesterolemia Maternal Grandmother No Known Allergies ROS Pertinent ROS can be found in HPI. Medications: Current Facility-Administered Medications Medication Dose Route Frequency Last Rate Last Admin sodium bicarbonate (ANTACID (SODIUM BICARBONATE)) tablet 1,300 mg 1,300 mg Oral TID acetaminophen (TYLENOL) tablet 650 mg 650 mg Oral Q6HPRN ceFEPIme (MAXIPIME) 1,000 mg in NaCl 0.9% (NS) 100 mL MINI-BAG 1,000 mg IV Piggyback Q24H ABX Stopped at 06/26/24 1025 HYDROcodone-acetaminophen (NORCO 5) tablet 1 tablet 1 tablet Oral Q6HPRN 1 tablet at 06/26/24 0948 morphine (2 mg/mL) injection 2 mg 2 mg Slow IV Push Q6HPRN 2 mg at 06/25/24 1739 ondansetron (ZOFRAN (PF)) injection 4 mg 4 mg Slow IV Push Q6HPRN 4 mg at 06/25/24 0930 busPIRone (BUSPAR) tablet 5 mg 5 mg Oral BID 5 mg at 06/26/24 0948 escitalopram oxalate (LEXAPRO) tablet 20 mg 20 mg Oral DAILY 20 mg at 06/26/24 0948 lamoTRIgine (LAMICTAL) tablet 100 mg 100 mg Oral BID 100 mg at 06/26/24 0948 pantoprazole (PROTONIX) EC tablet 40 mg 40 mg Oral DAILY 40 mg at 06/26/24 0948 Physical Exam BP: (109-123)/(71-78) Temp: [36.3 ?C (97.4 ?F)-37.3 ?C (99.2 ?F)] Temp source: Tympanic (06/25 1515) Pulse: [112-130] Resp: [-] SpO2: [94 %-96 %] Height: -- Weight: -- BMI (calculated): -- Wt Readings from Last 3 Encounters: 06/24/24 75.5 kg (166 lb 7.2 oz) 06/19/24 72.6 kg (160 lb) 06/18/24 73.3 kg (161 lb 11.2 oz) General: No acute distress. Reclined with some discomfort localized to the L flank. Cardiovascular: Elevated rate with normal rhythm, no murmurs, rubs, gallops. Respiratory: Clear to auscultation, no respiratory distress. GI: Abd soft, tender only across L side, non-distended, normoactive bowel sounds. MS/Extremities:Trace, non-pitting edema. Radial and PT pulses intact bilaterally. Neuro: Alert and oriented x3, no focal deficits. Skin: No rash, warm and dry. Intake/Output Summary (Last 24 hours) at 06/26/2024 1104 Last data filed at 06/26/2024 1026 Gross per 24 hour Intake 306 ml Output 500 ml Net -194 ml Assessment and Plan: Kitty Wall is a 33 year old female with PMH of tuberous sclerosis, CKD IV, seizures, anxiety, depression, and renal angiomyolipomas. We were consulted today to evaluate her poor renal function in the remaining kidney. At this time her function has not improved and she remains compromised from angiomyolipomas in the remaining kidney. Nephrectomy and HD is being considered; we discussed preparation for HD and obtained consent this morning if dialysis becomes necessary. We were consulted to address the following issues: BRYAN on CKD Stage IV/V in light of angiomyolipomas with hematoma and recent exposure to IV contrast and potential pyelonephritis Hx of TS with rt nephrectomy 2/2 angiomyolipoma in 2019 - Impending left nephrectomy, plan to place HD access perioperatively as per primary team if pt undergoes nephrectomy - HD consent on file - Check UA, Urine electrolytes (Urine sodium, Urine Creatinine, Urine Urea) - Plan to bladder scan to check PVR - Avoid NSAIDs, consider decreasing/discontinuing morphine to optimize remaining kidney function - BMP, Strict I&O, Daily Weights - Renal diet (low Na/K) - Renally dose medications, avoid contrast studies - Start Bicarb 1300 TID and recheck BMP - On cefepime for empiric tx for pyelonephritis Anemia - Treated with transfusion when <8 Hi Lindsey MS3 [facility] 06/26/2024 11:04 I personally examined the patient on 06/26/24 and have verified the above medical student documentation and/or findings, including the history, physical exam, and medical decision making. Additionally, I have personally performed or re-performed the physical exam and medical decision making activities of this patient's evaluation and management service. [facility] PGY4 Associated attestation - Leydi Boss DO - 06/28/2024 12:25 PM CDT I have personally seen and examined this patient with Dr. Alvarado MS3 on 06/26/24. I personally participated in the decision-making process as relates to this patient's medical condition. Please refer to the progress note for details of the medical care provided. [facility] 2024-06-24 16:12:26 Associated Order(s): CONSULT PS PASTORAL CARE 21 Dealer introduced pastoral care to patient and her significant other in response to a consult. 21 Dealer gave patient the space to share about her medical narrative. Patient verbalized feelings of despair and abandonment by God. Patient reported that she brings these feelings to prayer and the cardiovascular surgical tech affirmed this practice. Patient reported that she liked to be honest with God in prayer about her feelings, and cardiovascular surgical tech affirmed this. 21 Dealer explored sources of hope in the patient's life. Patient reported that her significant other and her family are strong sources of support in her life. Patient also reported that she finds hope in reading the Scriptures and placing herself in the stories. At the end of the visit, patient reported that she believes God will fight with her through this illness. 21 Dealer provided prayer for the patient, praying from Psalm 23, a psalm which the patient shared she had been turning to frequently in recent days. Chaplains remain available to provide spiritual care as needed. Aaron Farris CPE 21 Dealer Web Content Coordinator [phone] Aaron Farris [facility] 2024-06-24 13:43:50 Associated Order(s): CONSULT UROLOGY UROLOGY CONSULTATION NOTE Requesting Physician: Darien Randolph MD Date of Service: 06/24/2024 Reason for Consult: flank pain History of Present Illness Kitty Wall, 33 year old female with PMH of tuberous sclerosis, CKD 4, seizure disorder, right nephrectomy in 2019 for bleeding angiomyolipoma who presents from OSH with flank pain and dysuria in s/o left angiomyolipoma. To note, patient discharged on 06/22/24 for left bleeding angiomyolipoma. OSH reports stable CT imaging of angiomyolipoma with concern for UTI but records not available currently. AF VSS. Hb 8.2 (from 11 on 06/22), WBC 14 stable, Cr 3.69 elevated, Ucx pending. On ceftriaxone. Medications: Home Medications: Facility-Administered Medications Prior to Admission Medication Dose Route Frequency Provider Last Rate Last Admin medroxyPROGESTERone (DEPO-PROVERA) syringe 150 mg 150 mg Intramuscular [id number] Junie Alatorre CNM 150 mg at 06/18/24 0856 Medications Prior to Admission Medication Sig Dispense Refill Last Dose METOPROLOL SUCCINATE XL 25 mg 24 hr tablet TAKE 1 TABLET BY MOUTH EVERY DAY IN THE MORNING 30 tablet 5 busPIRone 7.5 mg tablet Take 1 tablet by mouth in the morning and 1 tablet in the evening. Taking escitalopram oxalate 20 mg tablet Take 1 tablet by mouth in the morning. Taking lamoTRIgine 100 mg tablet Take 1 tablet by mouth in the morning and 1 tablet in the evening. Taking omeprazole 20 mg capsule Take 1 capsule by mouth in the morning. Taking Lamotrigine 100 mg TbDL Take 1 tablet by mouth 2 (two) times daily. 60 tablet 5 Taking albuterol (PROAIR HFA) 90 mcg/actuation inhaler INHALE 1 TO 2 PUFFS BY MOUTH EVERY 4 TO 6 HOURS NEEDED 8.5 g 1 Taking Hospital Medications: Current Facility-Administered Medications Medication Dose Route Frequency Last Rate Last Admin acetaminophen (TYLENOL) tablet 650 mg 650 mg Oral Q6HPRN acetaminophen-codeine (TYLENOL #3) 300-30 mg tablet 1 tablet 1 tablet Oral Q4HPRN 1 tablet at 06/24/24 1323 busPIRone (BUSPAR) tablet 5 mg 5 mg Oral BID cefTRIAXone (ROCEPHIN) 1,000 mg in NaCl 0.9% (NS) 100 mL MINI-BAG 1,000 mg IV Piggyback Q24H ABX 200 mL/hr at 06/24/24 1302 1,000 mg at 06/24/24 1302 [START ON 06/25/2024] escitalopram oxalate (LEXAPRO) tablet 20 mg 20 mg Oral DAILY lamoTRIgine (LAMICTAL) tablet 100 mg 100 mg Oral BID [START ON 06/25/2024] pantoprazole (PROTONIX) EC tablet 40 mg 40 mg Oral DAILY Histories: Past Medical History: Diagnosis Date Angiomyolipoma [...] sclerosis) Father Hypothyroidism Other Stroke Maternal Aunt CA (myocardial infarction) Maternal Aunt Hypertension Maternal Grandmother Hypercholesterolemia Maternal Grandmother Social History Socioeconomic History Marital status: Single Number of children: 0 Highest education level: High school graduate Occupational History Occupation: disabled Tobacco Use Smoking status: Never Passive exposure: Never Smokeless tobacco: Never Substance and Sexual Activity Alcohol use: Never Drug use: Never Sexual activity: Yes Partners: Male control/protection: Injection Comment: last intercourse:03/23/2024 Social History Narrative Patient lives with partner. Denies any physical or sexual abuse Feels safe at home. Single, no children. Social Determinants of Health Financial Resource Strain: Low Risk (06/20/2024) Overall Financial Resource Strain (CARDIA) Difficulty of Paying Living Expenses: Not very hard Food Insecurity: No Food Insecurity (06/20/2024) Hunger Vital Sign Worried About Running Out of Food in the Last Year: Never true Ran Out of Food in the Last Year: Never true Transportation Needs: Patient Declined (01/02/2024) PRAPARE - Transportation Lack of Transportation (Medical): Patient declined Lack of Transportation (Non-Medical): Patient declined Physical Activity: Sufficiently Active (06/20/2024) Exercise Vital Sign Days of Exercise per Week: 7 days Minutes of Exercise per Session: 30 min Social Connections: Unknown (06/20/2024) Social Connection and Isolation Panel [NHANES] Frequency of Communication with Friends and Family: More than three times a week Marital Status: Never Housing Stability: Low Risk (06/20/2024) Housing Stability Vital Sign Unable to Pay for Housing in the Last Year: No Number of Places Lived in the Last Year: 1 Unstable Housing in the Last Year: No Allergies: No Known Allergies Review of Systems: Constitutional: negative Eyes: negative Ears, nose, mouth, throat: negative Cardiovascular: negative Respiratory: negative Gastrointestinal: negative Genitourinary: (+) per HPI Musculoskeletal: negative Integumentary: negative Neurological: negative Psychiatric: negative Endocrine: negative Hematologic/Lymphatic: negative Allergic/Immunologic: negative, allergies listed above Physical Exam: Blood pressure 124/82, pulse 96, temperature 36.7 ?C (98 ?F), resp. rate 16, height 1.55 m (5' 1.02"), weight 75.5 kg (166 lb 7.2 oz), SpO2 96%. Constitutional: no acute distress Cardiovascular: regular rate Respiratory: respirations unlabored on room air Gastrointestinal: soft Genitourinary: left sided CVAT Neurologic: alert and oriented x3 Psychiatric: appropriate mood and affect Labs: CBC BMP PT/INR WHITE BLOOD CELL COUNT-Q (Thousand/uL) Date Value 06/17/2024 12.5 (H) WBC (10*3/?L) Date Value 06/24/2024 14.18 (H) NA (mmol/L) Date Value 06/24/2024 138 SODIUM-Q (mmol/L) Date Value 06/17/2024 138 No results found for: "PT" RED BLOOD CELL COUNT-Q (Million/uL) Date Value 06/17/2024 2.29 (L) RBC (10*6/?L) Date Value 06/24/2024 2.77 (L) K (mmol/L) Date Value 06/24/2024 5.1 (H) POTASSIUM-Q (mmol/L) Date Value 06/17/2024 3.9 05/27/2024 4.7 INR (no units) Date Value 06/24/2024 1.1 PLATELET COUNT-Q (Thousand/uL) Date Value 06/17/2024 311 PLT (10*3/?L) Date Value 06/24/2024 433 (H) CALCIUM (mg/dL) Date Value 06/24/2024 9.2 CALCIUM-Q (mg/dL) Date Value 06/17/2024 8.5 (L) 06/17/2024 8.6 HGB (g/dL) Date Value 06/24/2024 8.2 (L) HEMOGLOBIN-Q (g/dL) Date Value 06/17/2024 6.9 (L) CL (mmol/L) Date Value 06/24/2024 111 (H) CHLORIDE-Q (mmol/L) Date Value 06/17/2024 108 aPTT HCT (%) Date Value 06/24/2024 25.7 (L) HEMATOCRIT-Q (%) Date Value 06/17/2024 21.7 (L) BUN (mg/dL) Date Value 06/24/2024 46 (H) UREA NITROGEN (BUN)-Q (mg/dL) Date Value 06/17/2024 31 (H) APTT Patient (Seconds) Date Value 06/24/2024 36 CREATININE (mg/dL) Date Value 06/24/2024 3.69 (H) CREATININE-Q (mg/dL) Date Value 06/17/2024 3.20 (H) Radiology: Pending OSH CT upload Assessment: Ktity Wall is a 33 year old female with PMH of tuberous sclerosis, CKD 4, seizure disorder, right nephrectomy in 2019 for bleeding angiomyolipoma who presents with flank pain and dysuria in s/o left angiomyolipoma. Recommendations: -Trend Hb q8h. Keep active type and screen. Transfuse for Hb below 8. - Conservative management: bedrest, observation, transfuse as needed. Defer embolization unless hemodynamically unstable d/t high risk of ESRD -> dialysis. Urology working to coordinate nephrectomy and possible transplant/HD with nephrology. - F/u Ucx - F/u CT imaging - Bladder scan if unable to void Discussed with Dr. Tinoco. Olga Parker MD Urology Resident Associated attestation - Gaurav Tinoco MD - 06/25/2024 11:48 AM CDT I personally examined the patient on 06/25/[address] Parker's resident note as written . I actively participated in the decision-making process. Please see the resident's note for additional details. Gaurav Tinoco MD 06/25/2024 11:48 AM [facility] 2024-06-20 00:01:37 Associated Order(s): CONSULT UROLOGY UROLOGY CONSULTATION NOTE Requesting Physician: No ref. provider found Date of Service: 06/20/2024 Reason for Consult: bleeding angiomyolipoma History of Present Illness Kitty Wall, 33 year old female with PMH of [...] Patient left AMA prior to transfer to [facility] for further evaluation. Re-presented tonight for worsening [...] (DEPO-PROVERA) syringe 150 mg 150 mg Intramuscular [id number] 150 mg at 06/18/24 0856 Current Outpatient [...] sclerosis) Father Hypothyroidism Other Stroke Maternal Aunt CA (myocardial infarction) Maternal Aunt Hypertension Maternal Grandmother [...] The density of the hematoma does not change management coordinator the course of the exam. 23 mm dominant follicle in the right ovary without significant free fluid in the pelvis. Status post right nephrectomy RL: [id number] AFC: [id number] ABDOMEN PELVIS WO CONTRAST Result Date: 06/17/2024 [...] Tenorio MD Urology Resident Pager: please page newspaper correspondent using [employer] Associated attestation - Gaurav Tinoco MD - [...] closely. Gaurav Tinoco MD 06/20/2024 7:58 AM [facility] - Health History and Physical Notes Date/Time Note Provider Source 2024-06-27 09:40:03 VASCULAR AND INTERVENTIONAL RADIOLOGY H&P & SEDATION NOTE Date of Service: 06/27/2024 Admission Status/Team: Inpatient HPI: 33 year old female with history of BRYAN and left renal angiomyolipoma presents for image guided tunneled permacath placement. Past Medical History: Past Medical History: Diagnosis Date Angiomyolipoma of [...] B6 deficiency 12/09/2020 Vitamin D deficiency 12/09/2020 Surgical History: Past Surgical History: Procedure Laterality Date ESOPHAGOGASTRODUODENOSCOPY N/A 2021 Surgeon: Joshua Lopez MD; Location: [place] OR Location IR EMBOLIZATION ARTERIAL OTHER THAN [...] 2016 at OSH SURGERY,BRAIN/SPINE,W/COMPUTER TOOTH EXTRACTION 2019 Medications: Reviewed Allergies: No Known Allergies Focused Physical Exam: Vitals: 06/26/24 1943 06/26/24 2325 06/27/24 0425 06/27/24 0811 BP: 120/72 131/76 133/80 137/85 BP Location: Left arm Left arm Left arm Patient Position: Supine Supine Supine Pulse: 107 111 115 116 Resp: 16 16 17 Temp: 36.6 ?C (97.9 ?F) 37 ?C (98.6 ?F) 37.6 ?C (99.6 ?F) 37.3 ?C (99.2 ?F) TempSrc: Tympanic Tympanic Tympanic SpO2: 96% 94% 94% 95% Weight: Height: Gen - AOx3, NAD Cardio - RRR Pulm - Non-labored breathing on RA Abd - soft, ND, NT Labs: Reviewed Imaging: Reviewed Pre-Procedure Sedation Evaluation See H&P for medical history and current medications. Allergies were reviewed. NPO Status Solids: >8 hours Clear liquids: >2 hours History History of anesthesia/sedation complications: No History of difficult airway: No History of neck problems, craniofacial abnormalities, head/neck surgery: No Increased risk for airway obstruction, sleep apnea, morbid obesity: No Airway Mallampati: III (only soft palate and only base of uvula) Mouth opening: Normal Range of motion neck: Normal Dentition: Normal Assessment: ASA 3 Plan: Moderate sedation The risks, benefits, and treatment options of sedation were discussed with the patient/guardian and they desire to proceed. The consent form was completed and signed. ASSESSMENT & PLAN: Diagnosis: Acute kidney injury, needing access for dialysis Plan: Will proceed with image guided tunneled permacath placement Informed consent discussed with the patient, including: condition, proposed care, treatments and services, alternative forms of treatment, and risks of no treatment. Details discussed around the procedures to be used, and the risks and hazards involved, potential benefits, and side effects of the patient s proposed care, treatment, and services; and any potential problems that might occur during recuperation. Reasonable alternative also discussed with the patient s proposed care, treatment, and services. Cachorro Luna MD PGY-4 Vascular Interventional Radiology Associated attestation - Ambika Delaney MD - 06/27/2024 9:52 AM CDT I personally examined the patient on 06/[address] Luna's resident note as written . I actively participated in the decision-making process. Please see the resident's note for additional details. Will proceed with permcath placement. Holding off on renal angiogram, given current stable Hb and hemodynamic status. RAD-DIAGNOSTIC RADIOLOGY [facility] 2024-06-24 11:37:02 EVIN Van Admit H&P PCP: Preet Ortiz Date of Service: 06/24/2024 CHIEF COMPLAINT: abdominal pain HISTORY OF PRESENT ILLNESS Kitty Wall is a 33 year old female with a PMH of Kitty Wall is a 33 year old female with a PMH of tuberous sclerosis, left renal angiomyolipoma, right renal angiomyolipoma s/p nephrectomy (2019), benign brain tumor, seizures, CKD IV, asthma, and anxiety/depression who presented for abdominal pain who initially presented to [facility] for abdominal pain. Patient was recently discharged from our service on 06/22 for a left renal hematoma of increasing size. Yesterday, patient reported that she was lying in bed, when all of a sudden she felt a severe 10 out of 10 pain in her left flank area patient subsequently presented to [facility] ED, where her hemoglobin was found to be 9.4. Her WBC was also found to be 21.2, and her creatinine was found to be 3.66. Patient reports that she has noticed some pus in her urine lately as well. Patient has also noted that it has been difficult to urinate recently. Per handoff from OSH, pt had a CT AP wo contrast done, which showed stable dimensions of her hematoma. Past medical history: has a past medical [...] deficiency (12/09/2020), and Vitamin D deficiency (12/09/2020). She has no past medical history of Abnormal uterine bleeding, Anesthesia complication, Autoimmune disorder, Blood dyscrasia, Breast disorder, Cancer, Clotting disorder, Coronary artery disease, Diabetes mellitus, Endocrine disorder, Endometriosis, Female infertility, Genital warts, Heart murmur, Hormone disorder, Human immunodeficiency virus (HIV) disease, Hypertension, Leiomyoma of uterus, Liver disease, Menstrual disorder, Osteoporosis, Rh incompatibility, Sickle cell anemia, STD (sexually transmitted disease), Substance abuse, Superficial thrombophlebitis, Thyroid disease, Transfusion history, Trauma, Tuberculosis, or Urinary incontinence. Past surgical history: has a past surgical history that includes nephrectomy (Right, 11/19/2019); renal artery embolization (Right, 09/2019); other; tooth extraction (2019); surgery,brain/spine,w/computer; ir embolization arterial other than hemorrhage (Left, 12/18/2020); ir embolization arterial other than hemorrhage (Left, 03/10/2021); and esophagogastroduodenoscopy (N/A, 2021). Social history: reports that she has never smoked. She has never been exposed to tobacco smoke. She has never used smokeless tobacco. She reports that she does not drink alcohol and does not use drugs. Family history: family history includes Hypercholesterolemia in her maternal grandmother; Hypertension in her maternal grandmother; Hypothyroidism in an other family member; Kidney failure in her mother; CA (myocardial infarction) in her maternal aunt; MS (multiple sclerosis) in her father; Other - see comments in her brother and mother; Stroke in her maternal aunt. Allergies: No Known Allergies MEDICATIONS reviewed REVIEW OF SYSTEMS (-)=Negative,(+)=Positive ROS negative unless otherwise stated. PHYSICAL EXAMINATION Vitals: 06/24/24 0832 06/24/24 0906 06/24/24 0916 BP: 130/78 Pulse: 98 Resp: 18 Temp: 36.7 ?C (98 ?F) TempSrc: Tympanic SpO2: 96% Weight: 75.5 kg (166 lb 7.2 oz) 75.5 kg (166 lb 7.2 oz) Height: 1.549 m (5' 0.98") 1.55 m (5' 1.02") Gen: comfortable, no distress Neck: supple, no LAD or JVD Cardio: S1 S2 RRR without murmurs Pulm: clear breath sounds Abd: soft, non-tender, non-distended Ext: no clubbing or edema LABS - reviewed pertinent labs as below: reviewed IMAGING - reviewed, pertinent results as below: reviewed CHART REVIEW: pertinent information as below: reviewed ASSESSMENT/PLAN Kitty Wall is a 33 year old female with a PMH of Kitty Wall is a 33 year old female with a PMH of tuberous sclerosis, left renal angiomyolipoma, right renal angiomyolipoma s/p nephrectomy (2019), benign brain tumor, seizures, CKD IV, asthma, and anxiety/depression who presented for abdominal pain. #Left renal angiomyolipoma c/b perinephric hematoma #Right renal angiomyolipoma s/p R nephrectomy #BRYAN on CKD Stage IV Pt's Hgb remained stable since transport from [facility] Urology engaged on admission. Per urology, plan for her is still conservative treatment and observation. OSH CT AP hematoma appears to be stable compared to last admission (allegedly), though OSH report could not be found. At this point, we will continue to trend Hgb. - admit to joaquin team - type and screen - upload OSH CT report - urology consulted. Appreciate recs - f/u FeNa urine studies - give 500cc LR for BRYAN - f/u Hgb this PM #UTI #Leukocytosis Patient reports gross murkiness of urine. OSH UA positive for WBC and leuk estrace. Given patient has flank pain, could not rule out pyelonephritis. - order urine culture - start ceftriaxone 1g q24H #Seizure disorder #MDD #Anxiety - cw keppra - cw buspar - cw lexapro Pain uncontrolled T3 Prophylaxis: DVT- none-contraindicated Code Status: Full Dispo: floor [facility] DO Keo, PGY-3 06/24/2024 11:38 AM Rob Polanco, Internal Medicine service Associated attestation - Julita Ramos DO - 06/24/2024 2:39 PM CDT I personally examined the patient on 06/24/[address] Crowley's resident note as written . I actively participated in the decision-making process. Please see the resident's note for additional details. Julita Ramos DO 06/24/2024 2:39 PM [facility] 2024-06-20 00:41:55 EVIN Van History & Physical PCP: Preet Ortiz Date of Service: 06/20/2024 CHIEF COMPLAINT: Chief Complaint Patient presents with Abdominal Pain HISTORY OF PRESENT ILLNESS Kitty Wall is a 33 year old female with [...] note, she went to the ED in [place] on 06/17 for the same symptoms where CTAP showed worsening angiomyolipomas and concern for possible hemorrhage from one of the lesions. She was advised to transfer to [place] ED but she wanted to go home to relax and wait for the pain to go away so left AMA. After leaving the [place] ED her abdominal pain, nausea, and vomiting [...] 137/89. WBC 13.38, Hgb 7.2 (7.5 at [place]), Cr 3.17, trop 0.007. UA with few [...] family member; Kidney failure in her mother; CA (myocardial infarction) in her maternal aunt; MS [...] 137/83 Pulse: 119 120 120 122 Resp: Temp: TempSrc: SpO2: 98% 98% 96% 97% Weight: Height: General: alert, no acute distress Lungs: clear to auscultation bilaterally Cardio: S1, S2 normal; no murmurs, rubs or gallops, regular rhythm, tachycardic Abdomen: soft; distended; TTP L abdomen, suprapubic tenderness Extremities: trace edema BLE Skin: no rashes Neuro: no focal deficits LABS/IMAGING: reviewed CHART REVIEW: ASSESSMENT/PLAN Kitty Wall is a 33 year old female with [...] ED was 7.2, down from 7.5 in [place], and further down from ~10 2 months [...] Cantrell DO Dept of Internal Medicine PGY-2, [facility] Team Associated attestation - Darien Cornejo MD - 06/20/2024 4:41 AM CDT I personally examined the patient and discussed the plan of this patient's care with Dr. Cantrell and Dr. Grossman on 06/20/2024 . I agree with resident's note as written. Darien Cornejo MD Internal Medicine [facility]
[2024-12-11 17:57] LABS: Absolute Lymphocytes (CBC) 0.3 K/uL (0.7-4.9); Absolute Monocytes 0.6 K/uL (0.1-1.3); Absolute Neutrophil 17.8 K/uL (1.8-8.0); Basophils % 0.1 % (0-1.3); Eosinophils % 0.1 % (0-4.4); Hematocrit 35.1 % (36.0-45.0); Hemoglobin 12.1 g/dL (12.0-15.0); Lymphocytes % 1.8 % (15.3-44.8); MCH 31.1 pg (27.0-35.0); MCHC 34.3 g/dL (32.0-36.0); MCV 90.7 fL (80-100); MPV 7.2 fL (7.6-11.3); Platelets 455 thou/uL (152-406); RBC Red Blood Cell Count 3.88 M/uL (3.86-4.86); Red Cell Distribution Width 13.4 % (12.1-15.2)
[2024-12-11] MEDS ORDERED: NA CHLORIDE 0.9% 2,000 ML ONE (18:00)
[2024-12-11] MEDS ORDERED: ONDANSETRON 4 MG/2 ML VIAL ONE ×2 (18:00→18:26)
[2024-12-11 18:12] LABS: Albumin 3.5 g/dL (3.4-5.0); Albumin/Globulin Ratio 0.6 (1.1-1.8); Anion Gap 16.6 mEq/L (5.0-15.0); Bilirubin Total 0.3 mg/dL (0.2-1.0); Globulin 5.5 g/dL (2.3-3.5); Magnesium 1.9 mg/dL (1.6-2.4); Potassium 4.6 mEq/L (3.5-5.1)
[2024-12-11 19:05] LABS: Band Neutrophils 7 % (0-1); Differential Total Cells Count 100; Lymphocytes 2 % (15-42); Monocytes 5 % (0-10); Segmented Neutrophils 86 % (40-80)
[2024-12-11 19:06] LABS: Blood Morphology Comment NOT SEEN (NOT SEEN); Platelet Estimate ADEQ
[2024-12-11 19:27] LABS: Specific Gravity 1.016 (1.005-1.030); Urine Bacteria <20 /HPF (<20); Urine Bilirubin NEGATIVE (Negative); Urine Blood Trace (Negative); Urine Clarity Extremely Turbid (Clear); Urine Color Light-Yellow (Yellow); Urine Crystals Unidentified Few /HPF (None Seen); Urine Culture Reflex Order REFLEXED; Urine Glucose NEGATIVE (Negative); Urine Ketones NEGATIVE (Negative); Urine Microscopic Reflex YN ORDER UMIC; Urine Mucus Slight /HPF (None Seen); Urine Nitrite NEGATIVE (Negative); Urine Protein 2+ (Negative); Urine Urobilinogen Normal (Normal); Urine WBC Clump Rare /HPF (None Seen); Urine Yeast (Budding) Occasional /HPF (None Seen); Urine pH 5.5 (5.0-7.0)
[2024-12-11 20:01] LABS: PT Prothrombin Time 11.3 SECONDS (9.4-12.5); PTT, Activated Partial Thromb 34.4 SECONDS (24.3-36.9); Protime INR 1.08
--- NOTE | 2024-12-11 20:29 | RAD REPORT ---
EXAMINATION: CT Abdomen Pelvis Wo Contrast CLINICAL INDICATION: Female, 34 years old. ABD PAIN TECHNIQUE: CT abdomen and pelvis was performed, without IV contrast, as per department protocol. Axia l, sagittal and coronal reconstructions were obtained. One or more of the following dose reduction techniques were used: Automated exposure control, adjustment of the mA and kV according to the patien t size, and iterative reconstruction. Unless otherwise specified, incidental findings do not require dedicated imaging follow-up. COMPARISON: 06/24/2024 FINDINGS: The lack of intravenous contrast limits the sensitivity of this exam for evaluation of solid visceral organs, vascular structures, and retroperitoneum. LOWER CHEST: The visualized lung bases are clear. LIVER: Normal in size and contour. Scattered subcentimeter hypoattenuating foci throughout the liver, stable. No other suspicious focal lesion. BILIARY SYSTEM: No suspicious abnormalities. SPLEEN: Normal size. No focal lesion. PANCREAS: No mass, ductal dilation, or erinn-pancreatic fluid. ADRENALS: Normal; no mass. KIDNEYS AND URETERS: Status post right nephrectomy. Multiple masses involving the left kidney contain ing macroscopic fat density, with interval resolution of hemorrhagic changes and anterior perirenal crescentic hemorrhage seen on the prior exam. A lenticular new mildly hyperdense component measuring 4.0 x 1.2 cm in greatest axial dimensions along the posterior most somewhat superior component is new, and may represent a new focus of partially resolved hemorrhage.. URINARY BLADDER: Normal contour. GASTROINTESTINAL TRACT: No evidence of bowel obstruction, significant free fluid, free air or abscess . APPENDIX: Normal appendix. LYMPH NODES: No lymphadenopathy. MUSCULOSKELETAL: Stable burden of scattered osseous sclerotic lesions most abundant throughout the ve rtebrae and pelvic bones. ADDITIONAL FINDINGS: Small supraumbilical hernia containing fat. IMPRESSION: Left renal angiomyolipomatosis, with small lenticular posterior superior mildly hyperdense component, may suggest resolving hemorrhage. Interval resolution of other hemorrhagic changes seen on the prior exam. No other acute or concerning abnormalities in the abdomen or pelvis, with evaluation limited by lack of IV contrast.
--- NOTE | 2024-12-11 20:40 | ER ---
Nurse's Notes [facility] Name: Kitty Wall Age: 34 yrs Sex: Female : 1990 Arrival Date: 12/11/2024 Time: 17:11 Bed 13 Private MD: Diagnosis: Nausea and vomiting;Diarrhea;Acute kidney injury;Sepsis;Urinary tract infection Presentation: 12/11 17:15 Chief complaint: EMS states: N/V AND DIARRHEA STARTED X 2 HOURS. Coronavirus screen: db Client denies travel out of the [place] in the last 14 days. At this time, the client does not indicate any symptoms associated with coronavirus-19. Ebola Screen: Patient negative for fever greater than or equal to 101.5 degrees Fahrenheit, and additional compatible Ebola Virus Disease symptoms Patient denies exposure to infectious person. Patient denies travel to an Ebola-affected area in the 21 days before illness onset. No symptoms or risks identified at this time. Initial Sepsis Screen: Does the patient meet any 2 criteria? No. Patient's initial sepsis screen is negative. Does the patient have a suspected source of infection? No. Patient's initial sepsis screen is negative. Risk Assessment: Do you want to hurt yourself or someone else? Patient reports no desire to harm self or others. Onset of symptoms was December 11, 2024. 17:15 Method Of Arrival: Ambulatory db 17:15 Acuity: GULSHAN 3 db Triage Assessment: 17:16 General: Appears in no apparent distress. comfortable, Behavior is calm, cooperative. db Pain: Denies pain. Neuro: Level of Consciousness is awake, alert, obeys commands, Oriented to person, place, time. 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 - Infectious Disease History:: Denies. - Social history:: Smoking status: Patient/guardian denies using tobacco, but has a distant history of tobacco abuse. - Family history:: not pertinent. Screenin:00 [facility] ED Fall Risk Assessment (Adult) History of falling in the last 3 months, db including since admission No falls in past 3 months (0 pts) Confusion or Disorientation No (0 pts) Intoxicated or Sedated No (0 pts) Impaired Gait No (0 pts) Mobility Assist Device Used No (0 pt) Altered Elimination No (0 pt) Score/Fall Risk Level 0 - 2 = Low Risk Oriented to surroundings, Maintained a safe environment. Abuse screen: Denies threats or abuse. Denies injuries from another. Nutritional screening: No deficits noted. Tuberculosis screening: No symptoms or risk factors identified. Assessment: 19:35 General: Appears in no apparent distress. well groomed, well developed, well nourished, me1 Behavior is calm, cooperative, appropriate for age, Reports n/v/d that started about 3pm today. Pain: Complains of pain in head Pain does not radiate. Pain currently is 5 out of 10 on a pain scale. Quality of pain is described as aching, Pain began suddenly, Is continuous. Neuro: Level of Consciousness is awake, alert, obeys commands, Oriented to person, place, time, situation, Appropriate for age. Cardiovascular: Patient's skin is warm and dry. Respiratory: Airway is patent Respiratory effort is even, unlabored, Respiratory pattern is regular, symmetrical. GI: Abdomen is non-distended, Reports diarrhea, nausea, vomiting. : No signs and/or symptoms were reported regarding the genitourinary system. EENT: No signs and/or symptoms were reported regarding the EENT system. Derm: Skin is intact, is healthy with good turgor, Skin is pink, warm \T\ dry. Musculoskeletal: No signs and/or symptoms reported regarding the musculoskeletal system. 22:04 Reassessment: Patient states our hospital is out of network and she needs to be me1 transferred to a hospital in network. Called Dr Petersen and he is ok with patient being transferred and will put the order in. Vital Signs: 17:16 BP 143 / 82; Pulse 120; Resp 18; Pulse Ox 99% ; db 17:29 BP 143 / 67; Pulse 130; Resp 18; Temp 98.4; Pulse Ox 96% on R/A; Weight 73.94 kg; db Height 5 ft. 1 in. ; 18:00 BP 134 / 79; Pulse 124; Resp 16; Pulse Ox 96% ; me1 19:00 BP 128 / 75; Pulse 120; Resp 16; Pulse Ox 100% ; me1 20:00 BP 114 / 73; Pulse 118; Resp 17; Pulse Ox 100% ; me1 21:00 BP 129 / 81; Pulse 131; Resp 17; Pulse Ox 100% ; me1 22:00 BP 133 / 77; Pulse 118; Resp 15; Pulse Ox 100% ; me1 23:00 BP 118 / 65; Pulse 111; Resp 15; Pulse Ox 100% ; me1 17:29 Body Mass Index 30.80 (73.94 kg, 154.94 cm) db ED Course: 17:14 Patient arrived in ED. im 17:16 Triage completed. db 17:16 Arm band placed on. db 17:20 Juanpablo Doty MD is Attending Physician. rt 17:31 Maintain EMS IV. Dressing intact. Good blood return noted. Site clean \T\ dry. Gauge \T\ db site: 20 G LEFT AC. 17:57 EKG done, by ED staff, reviewed by Juanpablo Doty MD. ty 18:00 Patient has correct armband on for positive identification. db 18:51 Janet Orozco, RN is Primary Nurse. me1 19:12 CT Abd/Pelvis - Without Contrast In Process Unspecified. EDMS 19:26 First set of blood cultures drawn by me, Urine collected: clean catch specimen, cloudy, me1 arvin colored. 19:30 Blood Culture Adult (2) Sent. me1 19:30 Lactate w/ 2H reflex if indic. Sent. me1 19:30 Protime (+inr) Sent. me1 19:30 Ptt, Activated Sent. me1 19:35 Provided Education on: POC. Verbalized understanding.. Client placed on continuous me1 cardiac and pulse oximetry monitoring. NIBP monitoring applied. brand ambassador promotional model on. Pulse ox on. NIBP on. 19:35 No provider procedures requiring assistance completed. me1 19:40 Second set of blood cultures drawn by me. me1 20:06 Notified ED physician of a critical lab result(s). lactate 3.2. me1 20:38 Zaid Petersen MD is Hospitalizing Provider. rt 23:03 Attempted transfer to [facility]. Dolly at [facility] transfer center stated that can not accept rv1 admit transfers until 8am. Provider Notified, Carpet Journeyman notified. 23:32 IV discontinued, intact, bleeding controlled, No redness/swelling at site. Pressure me1 dressing applied. Administered Medications: 18:10 Drug: NS 0.9% IV 2000 ml IV at 2 bolus Per protocol; to be given as a bolus over 60 db minutes Route: IV; Rate: 2 bolus; Site: left antecubital; 23:33 Follow up: Response: No adverse reaction; IV Status: Completed infusion; IV Intake: me1 2000ml 18:10 Drug: Ondansetron IVP 4 mg IVP once; over 2 minutes Route: IVP; Site: left antecubital; db 18:54 Follow up: Response: No adverse reaction; Nausea is decreased me1 18:29 Drug: Ondansetron IVP 4 mg IVP once; over 2 minutes Route: IVP; Site: left antecubital; bp 18:54 Follow up: Response: No adverse reaction; Nausea is decreased me1 21:45 Drug: Rocephin IV 2 grams IV at calculated rate once; Given slow IV push per pharmarcy me1 instructions Route: IV; Rate: calculated rate; Site: left antecubital; 23:33 Follow up: Response: No adverse reaction; IV Status: Completed infusion me1 21:45 Drug: Acetaminophen PO 650 mg PO once Route: PO; me1 23:33 Follow up: Response: No adverse reaction; Pain is decreased me1 Medication: 18:00 VIS not applicable for this client. db Intake: 23:33 IV: 2000ml; Total: 2000ml. me1 Outcome: 20:39 Decision to Hospitalize by Provider. rt 23:39 AMA AMA form signed me1 23:39 Condition: unchanged 23:39 Instructed on sepsis and the risk of sepsis shock 23:39 Patient left the ED. me1 Signatures: Dispatcher [employer] Sascha Rios RN RN bp Marcella Heard RN RN db Juanpablo Doty MD MD rt Greta Jones rv1 Leny Hardin Michelle, RN RN me1 Aime Ansari Corrections: (The following items were deleted from the chart) 17:30 17:29 BP 143 / 67; Pulse 130bpm; Resp 18bpm; Pulse Ox 96% RA; Temp 98.4F; Height 5 ft. db 1 in.; db
--- NOTE | 2024-12-11 20:40 | EDPHYS ---
Physician Documentation [facility] Name: Kitty Wall Age: 34 yrs Sex: Female : 1990 Arrival Date: 12/11/2024 Time: 17:11 Bed 13 Private MD: ED Physician Juanpablo Doty HPI: 12/11 20:15 This 34 yrs old Female presents to ER via Ambulatory with complaints of rt Nausea/Vomiting/Diarrhea. 20:15 Patient with history of solitary kidney presents to the ED with nausea, vomit, diarrhea rt starting about an hour prior to arrival. Patient states that the symptoms have mostly resolved, reports only mild nausea at this time and some weakness. Symptoms are moderate in severity, no other aggravating or alleviating factors.. 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 - Infectious Disease History:: Denies. - Social history:: Smoking status: Patient/guardian denies using tobacco, but has a distant history of tobacco abuse. - Family history:: not pertinent. ROS: 20:15 Constitutional: Negative for fever, chills, and weight loss, Cardiovascular: Negative rt for chest pain, palpitations, and edema, Respiratory: Negative for shortness of breath, cough, wheezing, and pleuritic chest pain, : Negative for injury, bleeding, discharge, and swelling, MS/Extremity: Negative for injury and deformity, Skin: Negative for injury, rash, and discoloration, Neuro: Negative for headache, weakness, numbness, tingling, and seizure, 20:15 Abdomen/GI: Positive for nausea, vomiting, and diarrhea, Exam: 20:15 Constitutional: This is a well developed, well nourished patient who is awake, alert, rt and in no acute distress. Head/Face: Normocephalic, atraumatic. Chest/axilla: Normal chest wall appearance and motion. Nontender with no deformity. No lesions are appreciated. Cardiovascular: Regular rate and rhythm with a normal S1 and S2. No gallops, murmurs, or rubs. Normal PMI, no JVD. No pulse deficits. Respiratory: Lungs have equal breath sounds bilaterally, clear to auscultation and percussion. No rales, rhonchi or wheezes noted. No increased work of breathing, no retractions or nasal flaring. Abdomen/GI: Soft, non-tender, with normal bowel sounds. No distension or tympany. No guarding or rebound. No evidence of tenderness throughout. Skin: Warm, dry with normal turgor. Normal color with no rashes, no lesions, and no evidence of cellulitis. MS/ Extremity: Pulses equal, no cyanosis. Neurovascular intact. Full, normal range of motion. 20:15 ECG was reviewed by the Attending Physician. Vital Signs: 17:16 BP 143 / 82; Pulse 120; Resp 18; Pulse Ox 99% ; db 17:29 BP 143 / 67; Pulse 130; Resp 18; Temp 98.4; Pulse Ox 96% on R/A; Weight 73.94 kg; db Height 5 ft. 1 in. ; 18:00 BP 134 / 79; Pulse 124; Resp 16; Pulse Ox 96% ; me1 19:00 BP 128 / 75; Pulse 120; Resp 16; Pulse Ox 100% ; me1 20:00 BP 114 / 73; Pulse 118; Resp 17; Pulse Ox 100% ; me1 21:00 BP 129 / 81; Pulse 131; Resp 17; Pulse Ox 100% ; me1 22:00 BP 133 / 77; Pulse 118; Resp 15; Pulse Ox 100% ; me1 23:00 BP 118 / 65; Pulse 111; Resp 15; Pulse Ox 100% ; me1 17:29 Body Mass Index 30.80 (73.94 kg, 154.94 cm) db MDM: 17:21 Medical Screening Exam initiated rt 20:39 Differential diagnosis: UTI, gastroenteritis, acute kidney injury. Data reviewed: vital rt signs, nurses notes, lab test result(s), EKG, radiologic studies. Consideration of Admission/Observation Patient was admitted/placed on observation. Management of patient was discussed with the following: Hospitalist: Agrees to admit. I considered the following discharge prescriptions or medication management in the emergency department Medications were administered in the Emergency Department. See MAR. Independent interpretation of the following test(s) in the Emergency Department CT Scan: My interpretation is No bowel obstruction seen on interpretation of CT scan images. Care significantly affected by the following chronic conditions: Solitary kidney. Counseling: I had a detailed discussion with the patient and/or guardian regarding the historical points, exam findings, and any diagnostic results supporting the discharge/admit diagnosis, lab results, radiology results, the need for further work-up and treatment in the hospital. Response to treatment: the patient's symptoms have markedly improved after treatment. ED course: Patient's initial presentation was not thought to be due to a bacterial etiology, once UTI was identified, antibiotics were ordered.. 12/11 17:39 Order name: CBC with Diff; Complete Time: 20:31 rt 12/11 17:39 Order name: CMP; Complete Time: 18:26 rt 12/11 17:39 Order name: Lipase; Complete Time: 18:26 rt 12/11 17:39 Order name: Magnesium; Complete Time: 18:26 rt 12/11 17:39 Order name: Test, Serum; Complete Time: 18:26 rt 12/11 17:59 Order name: Manual Differential; Complete Time: 20:31 EDMS 12/11 18:51 Order name: Blood Culture Adult (2) rt 12/11 18:51 Order name: Lactate w/ 2H reflex if indic.; Complete Time: 20:31 rt 12/11 18:51 Order name: Protime (+inr); Complete Time: 20:31 rt 12/11 18:51 Order name: Ptt, Activated; Complete Time: 20:31 rt 12/11 18:51 Order name: Urinalysis w/ reflexes; Complete Time: 20:31 rt 12/11 19:31 Order name: Urine Culture EDMS 12/11 20:07 Order name: Ghost Lactate-NO COLLECT Timer EDMS 12/11 21:38 Order name: CBC with Automated Diff EDMS 12/11 21:38 Order name: Comprehensive Metabolic Panel EDMS 12/11 21:38 Order name: Magnesium EDMS 12/11 21:38 Order name: Phosphorus EDMS 12/11 22:41 Order name: Lactate Sepsis 2 HR Follow-up EDMS 12/11 18:51 Order name: CT Abd/Pelvis - Without Contrast; Complete Time: 20:31 rt 12/11 17:39 Order name: EKG; Complete Time: 17:39 rt 12/11 17:39 Order name: IV Saline Lock; Complete Time: 17:57 rt 12/11 17:39 Order name: Labs collected and sent; Complete Time: 17:57 rt 12/11 17:39 Order name: EKG - Nurse/Tech; Complete Time: 17:57 rt 12/11 18:51 Order name: Accucheck; Complete Time: 19:30 rt 12/11 18:51 Order name: Cardiac monitoring; Complete Time: 19:13 rt 12/11 18:51 Order name: IV Saline Lock - Large Bore; Complete Time: 19:13 rt 12/11 18:51 Order name: O2 Per Protocol; Complete Time: 19:13 rt 12/11 18:51 Order name: O2 Sat Monitoring; Complete Time: 19:13 rt 12/11 18:51 Order name: Vital Signs; Complete Time: 19:13 rt 12/11 19:38 Order name: Misc. Order: RECOLLECT LACTATE/GREEN ON ICE rv1 EC:15 Rate is 131 beats/min. Rhythm is regular, Sinus tachycardia with No ectopy. QRS Golden is rt Normal. SD interval is normal. QRS interval is normal. QT interval is normal. No Q waves. T waves are Normal. No ST changes noted. Interpreted by me. Administered Medications: 18:10 Drug: NS 0.9% IV 2000 ml IV at 2 bolus Per protocol; to be given as a bolus over 60 db minutes Route: IV; Rate: 2 bolus; Site: left antecubital; 23:33 Follow up: Response: No adverse reaction; IV Status: Completed infusion; IV Intake: me1 2000ml 18:10 Drug: Ondansetron IVP 4 mg IVP once; over 2 minutes Route: IVP; Site: left antecubital; db 18:54 Follow up: Response: No adverse reaction; Nausea is decreased me1 18:29 Drug: Ondansetron IVP 4 mg IVP once; over 2 minutes Route: IVP; Site: left antecubital; bp 18:54 Follow up: Response: No adverse reaction; Nausea is decreased me1 21:45 Drug: Rocephin IV 2 grams IV at calculated rate once; Given slow IV push per pharmarcy me1 instructions Route: IV; Rate: calculated rate; Site: left antecubital; 23:33 Follow up: Response: No adverse reaction; IV Status: Completed infusion me1 21:45 Drug: Acetaminophen PO 650 mg PO once Route: PO; me1 23:33 Follow up: Response: No adverse reaction; Pain is decreased me1 Disposition Summary: 12/11/24 20:39 Hospitalization Ordered Notes: Hospitalization Status: Inpatient Admission rt Provider: Zaid Petersen rt Condition: Fair rt Problem: new rt Symptoms: have improved rt Bed/Room Type: Standard rt Location: [facility] ER HOLD(12/11/24 22:06) rv1 Room Assignment: ERHOLD-(12/11/24 22:06) rv1 Diagnosis - Nausea and vomiting rt - Diarrhea rt - Acute kidney injury rt - Sepsis rt - Urinary tract infection rt Forms: - Medication Reconciliation Form rt - SBAR form rt - Leadership Thank You Letter rt Critical care time excluding procedures: 20:39 Critical care time: Bedside Care: 30 minutes, Consultation: 5 minutes. Total time: 35 rt minutes Signatures: Dispatcher [employer] EDImtiaz Cervantes MD MD cha Peltier, Brian RN RN bp Marcella Heard RN RN db Juanpablo Doty MD MD rt Greta Jones rv1 Janet Orozco RN RN me1 Corrections: (The following items were deleted from the chart) 21:48 21:38 Lactate w/ 2H reflex if indic. ordered. EDID EDID 21:50 20:39 rt rv1 22:06 20:39 Telemetry/MedSurg (Inpatient) rt rv1 22:06 21:50 219 rv1 rv1
[2024-12-11] MEDS ORDERED: ONDANSETRON 4 MG/2 ML VIAL IV PRN (21:33)
[2024-12-11] MEDS ORDERED: ACETAMINOPHEN 325 MG TABLET PO PRN (21:33)
[2024-12-11] MEDS ORDERED: ACETAMINOPHEN 325 MG TABLET ONE (21:36)
[2024-12-11] MEDS ORDERED: CEFTRIAXONE 2000 MG/VIAL ONE (21:36)
[2024-12-11] MEDS ORDERED: NA CHLORIDE 0.9% 100 ML ONE (21:37)
--- NOTE | 2024-12-11 21:38 | P.HP ---
Certification for Inpatient Patient admitted to: Inpatient With expected LOS: >2 Midnights Practitioner: I am a practitioner with admitting privileges, knowledge of patient current condition, hospital course, and medical plan of care. Services: Services provided to patient in accordance with Admission requirements found in Title 42 Section 412.3 of the Code of Federal Regulations Patient History Date of Service: 12/12/24 Reason for admission: Nausea vomiting History of Present Illness: 34 yo female with a past medical history significant for epilepsy with implanted nerve stimulator, hereditary CKD, bipolar disorder, schizophrenia, depression, anxiety disorder who presents with complaint of abdominal pain, nausea and vomiting. Patient was found to have acute kidney injury and UTI with possible pyelonephritis and was admitted for further management. Has subjective fever Denies any chest pain or shortness of breath Allergies No Known Drug Allergies Allergy (Verified 05/23/23 14:15) Unknown Home medications list reviewed: Yes Home Medications: Cholecalciferol (Vitamin D3) [Vitamin D3] 50 mcg PO DAILY 09/06/21 Lamotrigine [Lamictal] 100 mg PO BID 09/06/21 Pyridoxine [Vitamin B-6*] 50 mg PO BID 09/06/21 Amoxicillin/Potassium Clav [Augmentin 500-125 Tablet] 0.5 each PO BID #7 tablet 09/07/21 Calcitrol [Rocaltrol*] 0.25 mcg PO Q48H #15 cap 05/26/23 Sodium Bicarbonate 650 mg PO TID #90 tab 05/26/23 - Past Medical/Surgical History Diabetic: No Past Medical History: Reviewed- Non-Contributory -: Epilepsy with inplanted nerve stimulator -: Brain Tumor diagnosed at age 3 -: Chronic hereditary Kidney Disease Stage 4 with prior right nephrectomy Past Surgical History: Reviewed- Non-Contributory -: Nerve stimulator implant -: 2 kidney surgeries Psychosocial/ Personal History: Unemployed, lives with boyfriend - Family History Father -: Other (see notes) Mother -: Kidney disease - Social History Smoking Status: Never smoker Alcohol use: No CD- Drugs: No Caffeine use: No Review of Systems 10-point ROS is otherwise unremarkable Physical Examination - Vital Signs Temperature: 98.2 F Blood Pressure: 112/68 Pulse: 82 Respirations: 18 Pulse Ox (%): 94 - Physical Exam General: Alert, In no apparent distress, Oriented x3 HEENT: Atraumatic, Normocephalic Neck: Supple Respiratory: Clear to auscultation bilaterally, Normal air movement Cardiovascular: Regular rate/rhythm, Normal S1 S2 Capillary refill: <2 Seconds Gastrointestinal: Soft and benign, W/out hepatosplenomegaly Musculoskeletal: No clubbing, No swelling Integumentary: No rashes Neurological: Normal strength at 5/5 x4 extr, Cranial nerves 3-12 intact, Normal reflexes 2+ Lymphatics: No axilla or inguinal lymphadenopathy - Studies Laboratory Data (last 24 hrs) 12/11/24 12/11/24 12/11/24 19:26 17:47 17:47 WBC 18.70 H Hgb 12.1 Hct 35.1 L Plt Count 455 H PT 11.3 INR 1.08 APTT 34.4 Sodium 138 Potassium 4.6 BUN 69 H Creatinine 4.32 H Glucose 128 H Magnesium 1.9 Total Bilirubin 0.3 AST 14 L ALT 21 Alkaline Phosphatase 109 Lipase 50 Assessment and Plan - Plan Intractable nausea vomiting Lactic acidosis Acute kidney injury on CKD stage III Metabolic acidosis Leukocytosis UTI Status post right nephrectomy Possible pyelonephritis Admit UTI Pyelonephritis Started on IV antibiotic Monitor closely under telemetry IV hydration Lactic acidosis trend CKD stage II Monitor renal parameters Electrolytes monitor and replace accordingly Nephrology consulted GI/DVT prophylaxis Advanced directive full code Discharge Plan: Home Plan to discharge in: 48 Hours - Advance Directives Does patient have a Living Will: No Does patient have a Durable POA for Healthcare: No - Code Status/Comfort Care Code Status: Full Code Time Spent Managing Pts Care (In Minutes): 48
[2024-12-11] MEDS ORDERED: D5W 1,000 ML with NA BICARB 8.4% 100 MEQ IV SCH (22:00)
[2024-12-12 00:26] VITALS: BP 112/68; TEMP 98.2
--- NOTE | 2024-12-12 00:26 | P.SSS ---
Patient History Date of Service: 12/12/24 Reason for admission: Nausea vomiting History of Present Illness: 34female with a past medical history significant for epilepsy with implanted nerve stimulator, hereditary CKD, bipolar disorder, schizophrenia, depression, anxiety disorder who presents with complaint of abdominal pain, nausea and vomiting. 34 yrs old Female presents to ER via Ambulatory with complaints of rt Nausea/Vomiting/Diarrhea. 20:15 Patient with history of solitary kidney presents to the ED with nausea, vomit, diarrhea rt starting about an hour prior to arrival. Patient states that the symptoms have mostly resolved, reports only mild nausea at this time and some weakness. Symptoms are moderate in severity, no other aggravating or alleviating factors.. Allergies No Known Drug Allergies Allergy (Verified 05/23/23 14:15) Unknown Home Medications: Cholecalciferol (Vitamin D3) [Vitamin D3] 50 mcg PO DAILY 09/06/21 Lamotrigine [Lamictal] 100 mg PO BID 09/06/21 Pyridoxine [Vitamin B-6*] 50 mg PO BID 09/06/21 Amoxicillin/Potassium Clav [Augmentin 500-125 Tablet] 0.5 each PO BID #7 tablet 09/07/21 Calcitrol [Rocaltrol*] 0.25 mcg PO Q48H #15 cap 05/26/23 Sodium Bicarbonate 650 mg PO TID #90 tab 05/26/23 - Past Medical/Surgical History Diabetic: No Past Medical History: Reviewed- Non-Contributory -: Epilepsy with inplanted nerve stimulator -: Brain Tumor diagnosed at age 3 -: Chronic hereditary Kidney Disease Stage 4 with prior right nephrectomy -: Nerve stimulator implant -: 2 kidney surgeries Psychosocial/ Personal History: Unemployed, lives with boyfriend - Family History Father -: Other (see notes) Mother -: Kidney disease - Social History Smoking Status: Never smoker Alcohol use: No CD- Drugs: No Caffeine use: No Review of Systems 10-point ROS is otherwise unremarkable Physical Examination - Vital Signs Temperature: 98.2 F Blood Pressure: 112/68 Pulse Ox (%): 94 - Physical Exam General: Alert, In no apparent distress, Oriented x3 HEENT: Atraumatic, Normocephalic Neck: Supple Respiratory: Clear to auscultation bilaterally, Normal air movement Cardiovascular: Regular rate/rhythm, Normal S1 S2 Capillary refill: <2 Seconds Gastrointestinal: Soft and benign, W/out hepatosplenomegaly Neurological: Normal speech, Cranial nerves 3-12 intact, Normal reflexes 2+ - Studies Laboratory Data (last 24 hrs) 12/11/24 12/11/24 12/11/24 19:26 17:47 17:47 WBC 18.70 H Hgb 12.1 Hct 35.1 L Plt Count 455 H PT 11.3 INR 1.08 APTT 34.4 Sodium 138 Potassium 4.6 BUN 69 H Creatinine 4.32 H Glucose 128 H Magnesium 1.9 Total Bilirubin 0.3 AST 14 L ALT 21 Alkaline Phosphatase 109 Lipase 50 - Disposition Disposition: AMA-LEFT AGAINST MEDICAL ADVIC Condition: FAIR Followup: Christine Enciso MD [Primary Care Provider] - Prvt As Needed Activity: Ad padma
[2024-12-12 07:56] VITALS: O2SAT 100
[2024-12-12] MEDS ORDERED: PIPER TAZO 3.375 GM in NA CHLORIDE 0.9% 50 ML IV SCH (22:00)
== END 2024-12-11 23:42 | disposition left against medical advice (07) ==
LOC: ER 17:11 → UNDOADMIN 21:33 → 2ND 21:33 → ER 23:42
DX: N17.9 Acute kidney failure, unspecified (principal); A41.9 Sepsis, unspecified organism; N39.0 Urinary tract infection, site not specified; R19.7 Diarrhea, unspecified; N18.30 Chronic kidney disease, stage 3 unspecified; D72.829 Elevated white blood cell count, unspecified; E87.20 Acidosis, unspecified; Z90.5 Acquired absence of kidney
CPT/HCPCS: 96365; 96361; 87040 ×2; 87088; 85025; 81001; 87086; 36415; 83735; 84703; 85610; 83605 ×2; 85730; 83690; 80053; 74176; 96375; 99285; 96366; J2405 ×2; J0696; J7030

== ENCOUNTER 2025-06-28 18:51 | Emergency (ER) | payer OTHER ==
[2025-06-28 19:56] LABS: Absolute Lymphocytes (CBC) 2.0 K/uL (0.7-4.9); Hematocrit 32.1 % (36.0-45.0); Hemoglobin 11.0 g/dL (12.0-15.0); MCH 32.8 pg (27.0-35.0); MCHC 34.4 g/dL (32.0-36.0); MCV 95.4 fL (80-100); MPV 7.1 fL (7.6-11.3); Nucleated RBC Absolute Count 0.0 (0-0); Nucleated Red Blood Cells % 0.0 % (0-0); RBC Red Blood Cell Count 3.36 M/uL (3.86-4.86); White Blood Count 8.00 thou/uL (4.3-10.9)
[2025-06-28 20:12] LABS: ALT/SGPT 26.0 U/L (13-56); AST/SGOT 16.0 U/L (15-37); Albumin 3.4 g/dL (3.4-5.0); Albumin/Globulin Ratio 0.7 (1.1-1.8); Alkaline Phosphatase 119.0 U/L (45-117); Anion Gap 10.4 mEq/L (5.0-15.0); BUN Blood Urea Nitrogen 22.0 mg/dL (7-18); Globulin 4.8 g/dL (2.3-3.5); Glucose Level 131.0 mg/dL (74-106); Potassium 3.4 mEq/L (3.5-5.1)
[2025-06-28] MEDS ORDERED: ONDANSETRON 4 MG/2 ML VIAL ONE (21:07)
[2025-06-28] MEDS ORDERED: MORPHINE 4 MG/ML SYR ONE (21:07)
--- NOTE | 2025-06-28 21:25 | RAD REPORT ---
EXAMINATION: CT ABDOMEN AND PELVIS WITHOUT CONTRAST CLINICAL INDICATION: Abdominal pain TECHNIQUE: CT abdomen and pelvis was performed, as per department protocol. IV contrast and oral was not administered.Axial, sagittal and coronal reconstructions were obtained. One or more of the following dose reduction techniques were used: Automated exposure control, adjustment of the mA and/o r kV according to the patient size, and/or iterative reconstruction. Unless otherwise specified, incidental findings do not require dedicated imaging follow-up. [id number]. COMPARISON: November 2024 FINDINGS: The lack of intravenous and oral contrast limits evaluation of solid organs, vessels and bowel. Right nephrectomy. There is little normal-appearing left kidney.. Kidney is replaced by a heterogeneous mostly fat mass measuring 23 x 14 x 14 cm (CC by AP by trans)it contains a small amount of calcifications. No active bleeding visualized. These are compatible with angiomyolipomas. Liver contains multiple tiny angiomyolipomas. The pancreatic tail and body are displaced anteriorly by the large left renal mass. Spleen grossly normal No adnexal mass. 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 No evidence of active bleeding.
[2025-06-28 22:38] LABS: Urine Culture Reflex Order NOT NEEDED; Urine Microscopic Reflex YN ORDER UMIC
--- NOTE | 2025-06-28 22:57 | EDPHYS ---
Physician Documentation [facility] Name: Kitty Wall Age: 34 yrs Sex: Female : 1990 Arrival Date: 06/28/2025 Time: 18:51 Bed 17 Private MD: ED Physician Darien Randolph HPI: 06/28 22:57 This 34 yrs old Female presents to ER via Ambulatory with complaints of Kidney ms3 pain. 22:57 34-year-old female with past medical history of anxiety, bipolar disorder, brain tumor, ms3 depression, schizophrenia, seizure disorder, kidney tumors presents to the emergency department for left flank pain. Patient states she has a tumor in her left kidney and is concerned it could be bleeding like the right kidney prior to her nephrectomy. Patient states the pain is a 10/10 located in the left flank. Patient denies any alleviating or inciting factors. Patient endorses nausea. She denies vomiting, fevers, chills. Patient notes she is on dialysis Tuesdays, , Saturdays and her last dialysis was this morning. BEADER: 22:56 LMP N/A - Depo-provera, Not bm8 Historical: - Allergies: 19:16 No Known Allergies; dd2 - PMHx: 19:16 Anxiety; Bipolar disorder; BRAIN TUMOR; Depression; Kidney tumor; Schizophrenia; dd2 Seizures; - PSHx: 19:16 Kidney tumor removed; Right Nephrectomy; dd2 - Immunization history:: Adult Immunizations up to date. - Infectious Disease History:: Denies. - Social history:: Smoking status: Patient denies any tobacco usage or history of. ROS: 22:57 Constitutional: Negative for fever, and chills. Cardiovascular: Negative for chest ms3 pain, and palpitations. Respiratory: Negative for shortness of breath, cough, wheezing, and pleuritic chest pain, 22:57 Abdomen/GI: Positive for nausea, Negative for vomiting, 22:57 Back: Positive for flank pain, on the left, Exam: 22:57 Constitutional: This is a well developed, well nourished patient who is awake, alert, ms3 and in no acute distress. Cardiovascular: Regular rate and rhythm with a normal S1 and S2. No gallops, murmurs, or rubs. Normal PMI, no JVD. No pulse deficits. Respiratory: Lungs have equal breath sounds bilaterally, clear to auscultation and percussion. No rales, rhonchi or wheezes noted. No increased work of breathing, no retractions or nasal flaring. Abdomen/GI: Soft, non-tender, with normal bowel sounds. No distension or tympany. No guarding or rebound. No evidence of tenderness throughout. 22:57 Back: pain, that is moderate, of the left mid back, ROM is normal, normal spinal alignment noted, CVA tenderness, that is moderate, is noted on the left, Vital Signs: 19:13 BP 117 / 67; Pulse 115; Resp 16; Temp 97.2; Pulse Ox 100% ; Weight 77.11 kg; Height 5 dd2 ft. 1 in. ; Pain 10/10; 19:50 BP 128 / 80; Pulse 101; Resp 18; Temp 97.2; Pulse Ox 98% ; Pain 10/10; bm8 21:10 BP 124 / 74; Pulse 96; Resp 18; Temp 97.2; Pulse Ox 99% ; Pain 10/10; bm8 22:44 BP 118 / 78; Pulse 96; Resp 18; Temp 97.2; Pulse Ox 100% ; Pain 8/10; bm8 19:13 Body Mass Index 32.12 (77.11 kg, 154.94 cm) dd2 19:13 Pain Scale: Adult dd2 19:50 Pain Scale: Adult bm8 21:10 Pain Scale: Adult bm8 22:44 Pain Scale: Adult bm8 [place] Coma Score: 19:50 Eye Response: spontaneous(4). Motor Response: obeys commands(6). Verbal Response: bm8 oriented(5). Total: 15. 21:10 Eye Response: spontaneous(4). Motor Response: obeys commands(6). Verbal Response: bm8 oriented(5). Total: 15. 22:44 Eye Response: spontaneous(4). Motor Response: obeys commands(6). Verbal Response: bm8 oriented(5). Total: 15. MDM: 19:11 Medical Screening Exam initiated ms3 22:57 Differential diagnosis: nephrolithiasis, pyelonephritis, UTI. Data reviewed: vital ms3 signs, nurses notes, lab test result(s), radiologic studies, and as a result, I will discharge patient. I considered the following discharge prescriptions or medication management in the emergency department Medications were administered in the Emergency Department. See MAR. Counseling: I had a detailed discussion with the patient and/or guardian regarding the historical points, exam findings, and any diagnostic results supporting the discharge/admit diagnosis, lab results, radiology results, the need for outpatient follow up, to return to the emergency department if symptoms worsen or persist or if there are any questions or concerns that arise at home. Special discussion: I discussed with the patient/guardian in detail that at this point there is no indication for admission to the hospital. It is understood, however, that if the symptoms persist or worsen the patient needs to return immediately for re-evaluation. ED course: Discussed labs and imaging with patient. Patient to follow-up with primary care physician in 2 to 3 days. Patient understands and agrees with plan. All questions were answered. Return precautions discussed include worsening symptoms, or any other concerns. On reevaluation patient is improved, alert and oriented x 4, no apparent distress, nontoxic-appearing, speaking full sentences, ambulatory in emergency department.. 06/28 19:30 Order name: CBC with Diff; Complete Time: 21:05 ms3 06/28 19:30 Order name: CMP; Complete Time: 21:05 ms3 06/28 19:50 Order name: Test, Serum; Complete Time: 22:45 bm8 06/28 22:27 Order name: UA Rfx Octavio Cult if indicated; Complete Time: 22:45 EDMS 06/28 19:30 Order name: CT Abd/Pelvis - Without Contrast; Complete Time: 21:58 ms3 06/28 19:30 Order name: IV Saline Lock; Complete Time: 19:50 ms3 06/28 19:30 Order name: Labs collected and sent; Complete Time: 19:50 ms3 Administered Medications: 21:11 Drug: morphine IVP or IV 4 mg IVP once over 4 mins Route: IVP; Infused Over: 4 mins; bm8 Site: right forearm; 22:03 Follow up: Response: No adverse reaction bm8 21:11 Drug: Ondansetron IVP 4 mg IVP once; over 2 minutes Route: IVP; Site: right forearm; bm8 22:03 Follow up: Response: No adverse reaction bm8 Disposition Summary: 06/28/25 22:57 Discharge Ordered Notes: Location: Home ms3 Condition: Stable ms3 Diagnosis - left flank pain ms3 - Anemia, unspecified ms3 - Hypokalemia ms3 - End stage renal disease ms3 - Angiomyolipoma Left Kidney ms3 Followup: ms3 - With: Private Physician - When: 2 - 3 days - Reason: Recheck today's complaints Discharge Instructions: - Discharge Summary Sheet ms3 - Anemia ms3 - Dialysis ms3 - End-Stage Kidney Disease ms3 - Flank Pain, Adult, Cact-ah-Ypss ms3 Forms: - Medication Reconciliation Form ms3 - Antibiotic Education ms3 - Prescription Opioid Use ms3 - Patient Portal Instructions ms3 - Leadership Thank You Letter ms3 Signatures: Dispatcher [employer] EDMS Darien Randolph DO DO ms3 Jose Elias Shanks, RN RN bm8 MALORIE BECKMAN RN RN dd2 Corrections: (The following items were deleted from the chart) 19:50 19:50 TEST, SERUM+SC.LAB.BRZ ordered. EDMS EDMS 20:20 19:12 UA Rfx Octavio Cult if indicated+U.LAB.BRZ ordered. EDMS EDMS 22:46 21:59 Chowdhury ordered. ms3 bm8 06/29 02:55 02:53 This 34 yrs old Female presents to ER via Ambulatory with complaints of ms3 Kidney pain. ms3
--- NOTE | 2025-06-28 22:57 | ER ---
Nurse's Notes [facility] Name: Kitty Wall Age: 34 yrs Sex: Female : 1990 Arrival Date: 06/28/2025 Time: 18:51 Bed 17 Private MD: Diagnosis: left flank pain;Anemia, unspecified;Hypokalemia;End stage renal disease;Angiomyolipoma Left Kidney Presentation: 06/28 19:13 Chief complaint: Patient states: LT BACK PAIN AND LT SIDE PAIN. PT REPORTS SHE HAS ONE dd2 KIDNEY, IS ON DIALYSIS T,TH,SAT. Coronavirus screen: At this time, the client does not indicate any symptoms associated with coronavirus-19. Ebola Screen: No symptoms or risks identified at this time. Initial Sepsis Screen: Does the patient meet any 2 criteria? No. Patient's initial sepsis screen is negative. Does the patient have a suspected source of infection? No. Patient's initial sepsis screen is negative. Risk Assessment: Do you want to hurt yourself or someone else? Patient reports no desire to harm self or others. Onset of symptoms was June 27, 2025. 19:13 Method Of Arrival: Ambulatory dd2 19:13 Acuity: GULSHAN 3 dd2 Triage Assessment: 19:16 General: Appears in no apparent distress. uncomfortable, Behavior is calm, cooperative, dd2 appropriate for age. Pain: Complains of pain in left low back, posterior aspect of left lateral abdomen and anterior aspect of left lateral abdomen Pain currently is 10 out of 10 on a pain scale. : Reports pain in left flank(s), in lower back. 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 - Infectious Disease History:: Denies. - Social history:: Smoking status: Patient denies any tobacco usage or history of. Screenin:50 [facility] ED Fall Risk Assessment (Adult) History of falling in the last 3 months, bm8 including since admission No falls in past 3 months (0 pts) Confusion or Disorientation No (0 pts) Intoxicated or Sedated No (0 pts) Impaired Gait No (0 pts) Mobility Assist Device Used No (0 pt) Altered Elimination No (0 pt) Score/Fall Risk Level 0 - 2 = Low Risk Oriented to surroundings, Maintained a safe environment, Educated pt \T\ family on fall prevention, incl call for assistance when getting out of bed, Assessed \T\ reinforced patient's understanding of fall precautions, Hourly rounding (assess needs \T\ fall precautionary measures) done, Used ambulatory aids as needed (educated on \T\ assisted with), Used gait belt as appropriate. Abuse screen: Denies threats or abuse. Nutritional screening: No deficits noted. Tuberculosis screening: No symptoms or risk factors identified. Assessment: 19:50 General: Appears in no apparent distress. uncomfortable, Behavior is calm, cooperative, bm8 appropriate for age. Pain: Complains of pain in back and anterior aspect of left lateral abdomen and posterior aspect of left lateral abdomen and left low back Pain currently is 10 out of 10 on a pain scale. Neuro: No deficits noted. Level of Consciousness is awake, alert, obeys commands, Oriented to person, place, time, situation, Appropriate for age. Cardiovascular: Denies chest pain, Capillary refill < 3 seconds in bilateral fingers Patient's skin is warm and dry. Respiratory: Airway is patent Respiratory effort is even, unlabored, Respiratory pattern is regular, symmetrical. GI: Abdomen is obese, Reports lower abdominal pain, nausea, Pain is 10 out of 10 on a pain scale. : Urine is cloudy, Reports burning with urination, pain in bilateral flank(s), in lower back Pain is 10 out of 10 on a pain scale. EENT: No signs and/or symptoms were reported regarding the EENT system. Derm: No signs and/or symptoms reported regarding the dermatologic system. Musculoskeletal: No signs and/or symptoms reported regarding the musculoskeletal system. 21:10 Reassessment: Patient appears in no apparent distress at this time. No changes from bm8 previously documented assessment. Patient and/or family updated on plan of care and expected duration. Pain level reassessed. Patient is alert, oriented x 3, equal unlabored respirations, skin warm/dry/pink. provider notified of patient's pain. new orders recieved Patient states symptoms have not improved. 22:44 Reassessment: Patient appears in no apparent distress at this time. Patient and/or bm8 family updated on plan of care and expected duration. Pain level reassessed. Patient is alert, oriented x 3, equal unlabored respirations, skin warm/dry/pink. Patient states feeling better. 22:55 Reassessment: Patient appears in no apparent distress at this time. No changes from zm previously documented assessment. Patient and/or family updated on plan of care and expected duration. Pain level reassessed. Patient is alert, oriented x 3, equal unlabored respirations, skin warm/dry/pink. Patient states feeling better. Patient states symptoms have improved. Vital Signs: 19:13 BP 117 / 67; Pulse 115; Resp 16; Temp 97.2; Pulse Ox 100% ; Weight 77.11 kg; Height 5 dd2 ft. 1 in. ; Pain 10/10; 19:50 BP 128 / 80; Pulse 101; Resp 18; Temp 97.2; Pulse Ox 98% ; Pain 10/10; bm8 21:10 BP 124 / 74; Pulse 96; Resp 18; Temp 97.2; Pulse Ox 99% ; Pain 10/10; bm8 22:44 BP 118 / 78; Pulse 96; Resp 18; Temp 97.2; Pulse Ox 100% ; Pain 8/10; bm8 19:13 Body Mass Index 32.12 (77.11 kg, 154.94 cm) dd2 19:13 Pain Scale: Adult dd2 19:50 Pain Scale: Adult bm8 21:10 Pain Scale: Adult bm8 22:44 Pain Scale: Adult bm8 [place] Coma Score: 19:50 Eye Response: spontaneous(4). Motor Response: obeys commands(6). Verbal Response: bm8 oriented(5). Total: 15. 21:10 Eye Response: spontaneous(4). Motor Response: obeys commands(6). Verbal Response: bm8 oriented(5). Total: 15. 22:44 Eye Response: spontaneous(4). Motor Response: obeys commands(6). Verbal Response: bm8 oriented(5). Total: 15. ED Course: 18:59 Patient arrived in ED. im 19:04 Imtiaz Gongora PA is PHCP. cp 19:04 Doug Arteaga MD is Attending Physician. cp 19:11 Darien Randolph DO is Attending Physician. ms3 19:16 Triage completed. dd2 19:16 Arm band placed on right wrist. dd2 19:50 Jose Elias Shanks, RN is Primary Nurse. bm8 19:50 Patient has correct armband on for positive identification. Bed in low position. Call bm8 light in reach. Side rails up X 1. Adult w/ patient. Client placed on continuous cardiac and pulse oximetry monitoring. NIBP monitoring applied. Pulse ox on. NIBP on. Door closed. Noise minimized. Pillow given. Verbal reassurance given. Head of bed elevated. 19:50 No provider procedures requiring assistance completed. Inserted saline lock: 20 gauge bm8 in right forearm, using aseptic technique. ,using aseptic technique. ultrasound guided Blood collected. Flushed with 10 mL NS. Patient maintains SpO2 saturation greater than 95% on room air. 20:34 CT Abd/Pelvis - Without Contrast In Process Unspecified. EDMS 22:44 Provided Education on: post er care. bm8 22:44 IV discontinued, intact, bleeding controlled, No redness/swelling at site. Pressure bm8 dressing applied. Administered Medications: 21:11 Drug: morphine IVP or IV 4 mg IVP once over 4 mins Route: IVP; Infused Over: 4 mins; bm8 Site: right forearm; 22:03 Follow up: Response: No adverse reaction bm8 21:11 Drug: Ondansetron IVP 4 mg IVP once; over 2 minutes Route: IVP; Site: right forearm; bm8 22:03 Follow up: Response: No adverse reaction bm8 Medication: 19:50 VIS not applicable for this client. bm8 Outcome: 22:44 Discharged to home ambulatory, bm8 22:44 Condition: stable 22:44 Discharge instructions given to patient, family, Instructed on discharge instructions, follow up and referral plans. no drinking with medication, no driving heavy equipment, medication usage, safety practices, Demonstrated understanding of instructions, follow-up care, medications, 22:57 Discharge ordered by . ms3 23:16 Patient left the ED. bm8 Signatures: Dispatcher [employer] EDMS Imtiaz Gongora PA-C PA-C cp Sims, Marcus, DO DO ms3 Emily Soto RN RN Leny Hardin Jose Elias Shanks, ANN MARIE JESUS bm8 RK, MALORIE, RN RN dd2
[2025-06-29 07:49] VITALS: TEMP 97.2
[2025-06-29 07:54] VITALS: BP 118/78; O2SAT 100
== END 2025-06-28 23:16 | disposition home or self-care (01) ==
LOC: ER 18:51
DX: R10.32 Left lower quadrant pain (principal); D64.9 Anemia, unspecified; E87.6 Hypokalemia; D17.71 Benign lipomatous neoplasm of kidney; N18.6 End stage renal disease
CPT/HCPCS: 85025; 81001; 36415; 84703; 80053; 74176; 96375; 96374; 99284; J2405

== ENCOUNTER 2025-08-25 22:17 | Inpatient (IN) | payer OTHER ==
[2025-08-26] MEDS ORDERED: MORPHINE 4 MG/ML SYR ONE ×2 (00:55→03:19)
[2025-08-26] MEDS ORDERED: ONDANSETRON 4 MG/2 ML VIAL ONE (00:56)
[2025-08-26 00:57] LABS: Absolute Lymphocytes (CBC) 2.0 K/uL (0.7-4.9); Hematocrit 25.0 % (36.0-45.0); Hemoglobin 8.5 g/dL (12.0-15.0); MCH 30.5 pg (27.0-35.0); MCHC 34.1 g/dL (32.0-36.0); MCV 89.4 fL (80-100); MPV 6.6 fL (7.6-11.3); Nucleated RBC Absolute Count 0.0 (0-0); Nucleated Red Blood Cells % 0.1 % (0-0); RBC Red Blood Cell Count 2.79 M/uL (3.86-4.86); White Blood Count 9.90 thou/uL (4.3-10.9)
[2025-08-26 01:26] LABS: ALT/SGPT 21 U/L (13-56); Albumin 3.0 g/dL (3.4-5.0); Albumin/Globulin Ratio 0.8 (1.1-1.8); Alkaline Phosphatase 76 U/L (45-117); Anion Gap 15.2 mEq/L (5.0-15.0); BUN Blood Urea Nitrogen 53 mg/dL (7-18); Globulin 4.0 g/dL (2.3-3.5); Glucose Level 86 mg/dL (74-106); Magnesium 2.2 mg/dL (1.6-2.4); NT PRO-BNP 50338 pg/mL (<125); Potassium 5.2 mEq/L (3.5-5.1); Troponin High Sensitivity 38.9 pg/mL (<58.9)
[2025-08-26 01:27] LABS: AST/SGOT < 10 U/L (15-37); Bilirubin Indirect, Calculated 0.1 mg/dL (0.2-0.8)
--- NOTE | 2025-08-26 01:45 | EDPHYS ---
Physician Documentation [facility] Name: Kitty Wall Age: 35 yrs Sex: Female : 1990 Arrival Date: 08/25/2025 Time: 22:17 Bed 26 Private MD: LAKSHMI Physician Imtiaz Beverly HPI: 08/26 01:43 This 35 yrs old Female presents to ER via Ambulatory with complaints of Chest sb4 Pain, High Blood Pressure, Back Pain, Nausea. 01:44 Patient reports chest pain, back pain, nausea, and elevated blood pressure that all sb4 began this evening. States that she is a dialysis patient on Monday, , and Monday, was last dialyzed on Monday. 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 Reports strict compliance with her antihypertensives and states that her blood pressure usually runs in the normal range. States she does not normally get chest pain. 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 - Infectious Disease History:: Denies. - Social history:: Smoking status: Patient/guardian denies using alcohol, street drugs. ROS: 08/26 01:44 Constitutional: Negative for fever, chills, and weight loss, sb4 Cardiovascular: Positive for chest pain, Respiratory: Positive for Abdomen/GI: Positive for nausea, Back: Positive for pain at rest, All other systems are negative, Exam: 01:44 Head/Face: Normocephalic, atraumatic. Eyes: Extra-ocular motions intact. Periorbital sb4 areas with no swelling, redness, or edema. ENT: Mucous membranes moist. Cardiovascular: Regular rate and rhythm with a normal S1 and S2. Respiratory: No increased work of breathing, no retractions or nasal flaring. Abdomen/GI: Soft, non-tender, no distension. Skin: Warm, dry with normal turgor. Normal color with no rashes, no lesions, and no evidence of cellulitis. 01:44 Constitutional: The patient appears in no acute distress, alert, awake, Vital Signs: 08/25 22:24 BP 184 / 107; Pulse 91; Resp 18; Temp 97.1; Pulse Ox 98% on R/A; Weight 79.38 kg; br2 Height 5 ft. 1 in. ; Pain 06/22; 08/26 00:55 Pulse 92; Resp 24; Pulse Ox 93% on R/A; br2 01:30 BP 173 / 104; Pulse 93; Resp 21; Pulse Ox 93% on R/A; br2 02:12 BP 166 / 103; Pulse 107; Resp 25; Pulse Ox 93% ; br2 02:39 BP 162 / 98; Pulse 104; Resp 24; Pulse Ox 92% on R/A; Pain 2/10; br2 08/25 22:24 Body Mass Index 33.07 (79.38 kg, 154.94 cm) br2 08/25 22:24 Pain Scale: Adult br2 02:39 Pain Scale: Adult br2 MDM: 08/25 22:22 Medical Screening Exam initiated sb4 08/26 01:44 Differential diagnosis: Fluid overload, hyperkalemia, uremia, ACS, pneumonia, anxiety, sb4 hypertensive crisis. Data reviewed: vital signs, nurses notes, lab test result(s), EKG, radiologic studies, and as a result, I will admit patient. Consideration of Admission/Observation Patient was admitted/placed on observation. Care significantly affected by the following chronic conditions: Hypertension, Chronic Kidney Disease. Counseling: I had a detailed discussion with the patient and/or guardian regarding the historical points, exam findings, and any diagnostic results supporting the discharge/admit diagnosis, the presence of at least one elevated blood pressure reading (>120/80) during this emergency department visit, lab results, radiology results, the need for further work-up and treatment in the hospital. 08/25 23:10 Order name: Basic Metabolic Panel; Complete Time: : 4 08/25 23:10 Order name: CBC with Diff; Complete Time: 00:59 4 08/25 23:10 Order name: LFT's; Complete Time: : 4 08/25 23:10 Order name: Magnesium; Complete Time: : 4 08/25 23:10 Order name: NT PRO-BNP; Complete Time: : 4 08/25 23:10 Order name: PT-INR; Complete Time: 14:01 sb4 08/25 23:10 Order name: Troponin HS; Complete Time: 01:29 sb4 08/25 23:10 Order name: Test, Serum; Complete Time: 01:05 sb4 08/26 02:50 Order name: Basic Metabolic Panel EDMS 08/26 02:50 Order name: Basic Metabolic Panel; Complete Time: 14:01 EDMS 08/26 02:50 Order name: Basic Metabolic Panel EDMS 08/26 02:50 Order name: CBC with Automated Diff EDMS 08/26 02:50 Order name: CBC with Automated Diff EDMS 08/26 02:50 Order name: CBC with Automated Diff EDMS 08/26 02:50 Order name: CBC with Automated Diff EDMS 08/26 02:50 Order name: Lipid Profile EDMS 08/26 02:50 Order name: Lipid Profile; Complete Time: 14:01 EDMS 08/26 02:50 Order name: Troponin High Sensitivity EDMS 08/26 02:50 Order name: Troponin High Sensitivity EDMS 08/26 02:50 Order name: Troponin High Sensitivity EDMS 08/26 02:50 Order name: Troponin High Sensitivity EDMS 08/26 02:50 Order name: Troponin High Sensitivity; Complete Time: 14:01 EDMS 08/25 23:10 Order name: XRAY Chest (1 view); Complete Time: 14:01 sb4 08/26 02:50 Order name: Echo with Doppler EDMS 08/25 23:10 Order name: Cardiac monitoring; Complete Time: 01:14 sb4 08/25 23:10 Order name: EKG - Nurse/Tech; Complete Time: 23:51 sb4 08/25 23:10 Order name: IV Saline Lock; Complete Time: :14 sb4 08/25 23:10 Order name: Labs collected and sent; Complete Time: :14 sb4 08/25 23:10 Order name: O2 Per Protocol; Complete Time: : sb4 08/25 23:10 Order name: O2 Sat Monitoring; Complete Time: : sb4 EC:40 Rate is 85 beats/min. Rhythm is regular, Normal Sinus Rhythm. UT interval is normal at sb4 123 msec. QRS interval is normal at 74 msec. QT interval is normal at 361 msec. No Q waves. T waves are Normal. No ST changes noted. Clinical impression: Normal ECG. Interpreted by me. Reviewed by me. Administered Medications: 01:22 Drug: morphine IVP or IV 4 mg IVP once over 4 mins Route: IVP; Infused Over: 4 mins; br2 Site: right antecubital; 03:33 Follow up: Response: No adverse reaction bm8 01:22 Drug: Ondansetron IVP 4 mg IVP once; over 2 minutes Route: IVP; Site: right antecubital;br2 03:33 Follow up: Response: No adverse reaction bm8 02:00 Drug: Nitroglycerin Sublingual 0.4 mg Sublingual once; every five minute if needed x3 br2 Route: Sublingual; 02:05 Drug: Nitroglycerin Sublingual 0.4 mg Sublingual once; every five minute if needed x3 br2 Route: Sublingual; 03:32 Follow up: Response: No adverse reaction bm8 02:10 Drug: Calcium Gluconate IVPB 1 grams IVPB once over 60 mins; (mix in NS 100 mL) Route: br2 IVPB; Infused Over: 60 mins; Site: right antecubital; 03:33 Follow up: Response: No adverse reaction; IV Status: Completed infusion bm8 02:10 Drug: Albuterol Inhalation 2.5 mg Inhalation once Route: Inhalation; br2 03:33 Follow up: Response: No adverse reaction bm8 02:10 Drug: Kayexalate PO 30 grams PO once Route: PO; br2 03:33 Follow up: Response: No adverse reaction bm8 02:10 Drug: Insulin Regular Human IVP 10 units IVP once {Co-Signature: nh2 (Stanley Lockett, br2 Shaw JESUS).} Route: IVP; Site: right antecubital; 03:32 Follow up: Response: No adverse reaction bm8 02:10 Drug: D50W IVP 50 ml IVP once; (1 amp) Route: IVP; Site: right antecubital; br2 03:32 Follow up: Response: No adverse reaction bm8 Disposition: 08/27 07:51 Co-signature as Attending Physician, Imtiaz Beverly MD I agree with the assessment and rayshawn plan of care. Disposition Summary: 08/26/25 01:44 Hospitalization Ordered Notes: Hospitalization Status: Inpatient Admission sb4 Provider: Sunil Martínez sb4 Condition: Fair sb4 Problem: new sb4 Symptoms: are unchanged sb4 Bed/Room Type: Standard sb4 Location: Telemetry/MedSurg (Inpatient)(08/26/25 07:27) bd Room Assignment: 425(08/26/25 07:27) bd Diagnosis - Chest pain, unspecified sb4 - End stage renal disease sb4 - Dependence on renal dialysis sb4 - Hyperkalemia sb4 Forms: - Medication Reconciliation Form sb4 - SBAR form sb4 - Leadership Thank You Letter sb4 Critical care time excluding procedures: 08/26 01:44 Critical care time: Bedside Care: 20 minutes, Consultation: 15 minutes. Total time: 35 sb4 minutes Signatures: Dispatcher [employer] EDMS Denise Baptiste Corey, MD MD cha Garcia, Cindy, RN RN Kelsey Izquierdo PA-C PAYuly sb4 Kathy Lacey RN RN br2 Jose Elias Shanks RN bm8 Stanley Lockett, Shaw JESUS nh2 Corrections: (The following items were deleted from the chart) 08/25 23:10 23:10 BASIC METABOLIC PANEL+C.LAB.BRZ ordered. EDMS EDMS 23:10 23:10 CBC+H.LAB.BRZ ordered. EDMS EDMS 23:10 23:10 HEPATIC FUNCTION+C.LAB.BRZ ordered. EDMS EDMS 23:10 23:10 MAGNESIUM+C.LAB.BRZ ordered. EDMS EDMS 23:10 23:10 PROBNP+C.LAB.BRZ ordered. EDMS EDMS 23:10 23:10 PROTIME (+INR)+COAG.LAB.BRZ ordered. EDMS EDMS 23:10 23:10 Troponin High Sensitivity+C.LAB.BRZ ordered. EDMS EDMS 23:10 23:10 TEST, SERUM+SC.LAB.BRZ ordered. EDMS EDMS 23:10 23:10 Chest Single View+RAD.RAD.BRZ ordered. EDMS EDMS 08/26 03:20 01:44 Telemetry/MedSurg (Inpatient) sb4 cg 03:20 01:44 sb4 cg 07:27 03:20 [facility] ER HOLD cg bd 07:27 03:20 ERHOLD- cg bd
--- NOTE | 2025-08-26 01:45 | ER ---
Nurse's Notes [facility] Name: Kitty Wall Age: 35 yrs Sex: Female : 1990 Arrival Date: 08/25/2025 Time: 22:17 Bed 26 Private MD: Diagnosis: Chest pain, unspecified;End stage renal disease;Dependence on renal dialysis;Hyperkalemia Presentation: 08/25 22:24 Chief complaint: Patient states: CHEST PAIN AND SOB THAT BEGAN AROUND 2100, NAUSEA, br2 HIGH BLOOD PRESSURE. Coronavirus screen: Client denies travel out of the [place] in the last 14 days. Ebola Screen: Patient denies exposure to infectious person. Initial Sepsis Screen: Does the patient meet any 2 criteria? No. Patient's initial sepsis screen is negative. Does the patient have a suspected source of infection? No. Patient's initial sepsis screen is negative. Risk Assessment: Do you want to hurt yourself or someone else? Patient reports no desire to harm self or others. 22:24 Method Of Arrival: Ambulatory br2 22:24 Acuity: GULSHAN 3 vc1 22:24 Onset of symptoms is unknown. vc1 Triage Assessment: 22:27 General: Appears in no apparent distress. comfortable, Behavior is calm, cooperative. br2 Pain: Complains of pain in mid-sternal area Pain currently is 8 out of 10 on a pain scale. MAJOR CASE DETECTIVE: 08/26 03:33 unknown bm8 Historical: - PMHx: 08/25 22:27 Anxiety; Bipolar disorder; BRAIN TUMOR; Depression; Kidney tumor; Schizophrenia; br2 Seizures; - PSHx: 22:27 Kidney tumor removed; Right Nephrectomy; br2 22:27 LEFT UPPER FISTULA; br2 - Immunization history:: Adult Immunizations up to date. - Infectious Disease History:: Denies. - Social history:: Smoking status: Patient/guardian denies using alcohol, street drugs. Screenin/14 00:00 [facility] ED Fall Risk Assessment (Adult) History of falling in the last 3 months, br2 including since admission No falls in past 3 months (0 pts) Confusion or Disorientation No (0 pts) Intoxicated or Sedated No (0 pts) Impaired Gait Yes (1 pt) Mobility Assist Device Used No (0 pt) Altered Elimination No (0 pt) Score/Fall Risk Level 0 - 2 = Low Risk Oriented to surroundings. Abuse screen: Denies threats or abuse. Denies injuries from another. Nutritional screening: No deficits noted. Tuberculosis screening: No symptoms or risk factors identified. Assessment: 00:00 Reassessment: Patient and/or family updated on plan of care and expected duration. Pain br2 level reassessed. Patient is alert, oriented x 3, equal unlabored respirations, skin warm/dry/pink. General: Appears in no apparent distress. comfortable, Behavior is calm, cooperative. Pain: Complains of pain in mid-sternal area Pain does not radiate. Pain currently is 8 out of 10 on a pain scale. Cardiovascular: Reports chest pain, shortness of breath, Capillary refill < 3 seconds. Respiratory: Reports shortness of breath at rest on exertion Airway is patent Respiratory effort is even, unlabored, Respiratory pattern is regular, symmetrical, Breath sounds are clear bilaterally. 02:39 Reassessment: Patient and/or family updated on plan of care and expected duration. Pain br2 level reassessed. Patient is alert, oriented x 3, equal unlabored respirations, skin warm/dry/pink. Patient states feeling better. Patient states symptoms have improved. 03:31 Pain: Complains of pain in chest. Neuro: No deficits noted. Level of Consciousness is bm8 awake, alert, obeys commands, Oriented to person, place, time, situation, Appropriate for age. Cardiovascular: Reports chest pain, Heart tones S1 S2 present Capillary refill < 3 seconds in bilateral fingers Patient's skin is warm and dry. Respiratory: Airway is patent Respiratory effort is even, unlabored, Respiratory pattern is regular, symmetrical, Breath sounds are clear bilaterally. Vital Signs: 08/25 22:24 BP 184 / 107; Pulse 91; Resp 18; Temp 97.1; Pulse Ox 98% on R/A; Weight 79.38 kg; br2 Height 5 ft. 1 in. ; Pain 06/22; 08/26 00:55 Pulse 92; Resp 24; Pulse Ox 93% on R/A; br2 01:30 BP 173 / 104; Pulse 93; Resp 21; Pulse Ox 93% on R/A; br2 02:12 BP 166 / 103; Pulse 107; Resp 25; Pulse Ox 93% ; br2 02:39 BP 162 / 98; Pulse 104; Resp 24; Pulse Ox 92% on R/A; Pain 2/10; br2 08/25 22:24 Body Mass Index 33.07 (79.38 kg, 154.94 cm) br2 08/25 22:24 Pain Scale: Adult br2 02:39 Pain Scale: Adult br2 ED Course: 08/25 22:20 Patient arrived in ED. gm2 22:21 Kelsey Mckinnon PA-C is PHCP. sb4 22:21 Imtiaz Beverly MD is Attending Physician. sb4 22:27 Arm band placed on right wrist. br2 23:40 XRAY Chest (1 view) In Process Unspecified. EDMS 08/26 00:00 Patient has correct armband on for positive identification. Bed in low position. Call br2 light in reach. Client placed on continuous cardiac and pulse oximetry monitoring. NIBP monitoring applied. 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 00:00 Inserted saline lock: 20 gauge in right antecubital area, using aseptic technique. br2 Blood collected. Flushed with 10 mL NS. 00:50 Provided Education on: PLAN OF CARE. Report received from GABBY. br2 00:55 Missed attempt(s): 22 gauge in right upper arm. br2 00:56 Kathy Lacey, ANN MARIE is Primary Nurse. br2 01:15 Triage completed. vc1 01:43 Sunil Martínez, ANN MARIE is Hospitalizing Provider. sb4 03:31 No provider procedures requiring assistance completed. Patient admitted, IV remains in bm8 place. Patient maintains SpO2 saturation greater than 95% on room air. Administered Medications: 01:22 Drug: morphine IVP or IV 4 mg IVP once over 4 mins Route: IVP; Infused Over: 4 mins; br2 Site: right antecubital; 03:33 Follow up: Response: No adverse reaction bm8 01:22 Drug: Ondansetron IVP 4 mg IVP once; over 2 minutes Route: IVP; Site: right antecubital;br2 03:33 Follow up: Response: No adverse reaction bm8 02:00 Drug: Nitroglycerin Sublingual 0.4 mg Sublingual once; every five minute if needed x3 br2 Route: Sublingual; 02:05 Drug: Nitroglycerin Sublingual 0.4 mg Sublingual once; every five minute if needed x3 br2 Route: Sublingual; 03:32 Follow up: Response: No adverse reaction bm8 02:10 Drug: Calcium Gluconate IVPB 1 grams IVPB once over 60 mins; (mix in NS 100 mL) Route: br2 IVPB; Infused Over: 60 mins; Site: right antecubital; 03:33 Follow up: Response: No adverse reaction; IV Status: Completed infusion bm8 02:10 Drug: Albuterol Inhalation 2.5 mg Inhalation once Route: Inhalation; br2 03:33 Follow up: Response: No adverse reaction bm8 02:10 Drug: Kayexalate PO 30 grams PO once Route: PO; br2 03:33 Follow up: Response: No adverse reaction bm8 02:10 Drug: Insulin Regular Human IVP 10 units IVP once {Co-Signature: nh2 (shree Angel Jr, RN).} Route: IVP; Site: right antecubital; 03:32 Follow up: Response: No adverse reaction bm8 02:10 Drug: D50W IVP 50 ml IVP once; (1 amp) Route: IVP; Site: right antecubital; br2 03:32 Follow up: Response: No adverse reaction bm8 Medication: 00:00 VIS not applicable for this client. br2 Outcome: 01:44 Decision to Hospitalize by Provider. sb4 03:31 Admitted to ER Hold. Please see [facility] for further documentation. bm8 03:31 Condition: stable 03:31 Instructed on follow up and referral plans. the need for admit, Demonstrated understanding of instructions, follow-up care, medications, 09:09 Admitted to Med/surg accompanied by nurse, via wheelchair, room 425, db 09:09 Patient left the ED. db Signatures: Dispatcher [employer] EDMS Jenifer Tucker RN RN vc1 Marcella Heard RN RN Kelsey Tirado, PA-C PA-C sb4 Pinky El gm2 Jose Elias Shanks RN RN bm8 Kathy Lacey RN RN br2 Shaw Angel Jr, RN nh2
[2025-08-26] MEDS ORDERED: NITROGLYCERIN 0.4 MG/TAB SL ONE (01:56)
[2025-08-26] MEDS ORDERED: ALBUTEROL 2.5 MG/3 ML NEB SOL ONE (01:56)
[2025-08-26] MEDS ORDERED: INSULIN REGULAR (HUMAN) 100 UNIT/ML ONE (01:56)
[2025-08-26] MEDS ORDERED: SOD POLYSTYREN SUL 15 GM/60 ML UCUP ONE (01:57)
[2025-08-26] MEDS ORDERED: D50W 25 GM/50 ML SYRINGE IV ONE (01:58)
[2025-08-26] MEDS ORDERED: CALCIUM GLUCONATE 1 GM IVPB 1 GM/50 ML BAG IV ONE (01:58)
[2025-08-26 02:07] LABS: PT Prothrombin Time 13.4 SECONDS (10-13.0); Protime INR 1.19
[2025-08-26] MEDS: ASPIRIN 325 MG TAB PO ONE (02:43)
--- NOTE | 2025-08-26 02:57 | P.HP ---
Certification for Inpatient Patient admitted to: Observation With expected LOS: <2 Midnights Patient will require the following post-hospital care: None Practitioner: I am a practitioner with admitting privileges, knowledge of patient current condition, hospital course, and medical plan of care. Services: Services provided to patient in accordance with Admission requirements found in Title 42 Section 412.3 of the Code of Federal Regulations Patient History Date of Service: 08/26/25 Reason for admission: Chest pain, hyperkalemia. History of Present Illness: Patient is a pleasant 35-year-old female with past medical history of anxiety, bipolar disorder, brain tumor, depression, schizophrenia, multiple tumors in both kidneys resulting in bilateral nephrectomy, right nephrectomy done in August/2021, left nephrectomy recently done in , patient currently on dialysis on Monday, , and Monday. Patient still tender is Dr. Enciso. Patient presents to the ER tonight complaining of severe chest pain radiating to her back, with associated shortness of breath. Patient states she was doing good throughout the day, states around 10 PM is when she had the chest pain. Patient described the chest pain as sharp, pressure type pain with initial pain scale of 9/10. Patient states she went to urgent care, she was told to go to ER.. Upon arrival to ER, patient received nitroglycerin sublingual, states her chest pain was much relieved after receiving nitro 0.4 mg sublingual x 2. Patient initial troponin 38.9, EKG with no ST elevation, potassium 5.2. Patient states she has never had such a chest pain before. Patient also received calcium gluconate 1 g, dextrose 50%, insulin regular 1 unit, and albuterol 0.083% for hyperkalemia. During admission assessment, patient states she felt much better after she received both doses of nitroglycerin sublingual, denies of any shortness of breath at this time. Patient in no acute distress at this time. Allergies No Known Drug Allergies Allergy (Verified 05/23/23 14:15) Unknown Home Medications: Cholecalciferol (Vitamin D3) [Vitamin D3] 50 mcg PO DAILY 09/06/21 Lamotrigine [Lamictal] 100 mg PO BID 09/06/21 Pyridoxine [Vitamin B-6*] 50 mg PO BID 09/06/21 Amoxicillin/Potassium Clav [Augmentin 500-125 Tablet] 0.5 each PO BID #7 tablet 09/07/21 Calcitrol [Rocaltrol*] 0.25 mcg PO Q48H #15 cap 05/26/23 Sodium Bicarbonate 650 mg PO TID #90 tab 05/26/23 - Past Medical/Surgical History Diabetic: No -: Epilepsy with inplanted nerve stimulator -: Brain Tumor diagnosed at age 3 -: Chronic hereditary Kidney Disease Stage 4 with prior right nephrectomy, and -: Left nephrectomy. -: Nerve stimulator implant -: 2 kidney surgeries Psychosocial/ Personal History: Unemployed, lives with boyfriend - Family History Father -: Other (see notes) Mother -: Kidney disease - Social History Smoking Status: Never smoker Alcohol use: No CD- Drugs: No Caffeine use: No Place of Residence: Home Review of Systems 10-point ROS is otherwise unremarkable Respiratory: Shortness of Breath Cardiovascular: Chest Pain (With associated shortness of breath.) Physical Examination - Physical Exam General: Alert, In no apparent distress, Oriented x3 HEENT: Atraumatic, Normocephalic, PERRLA, Mucous membr. moist/pink, Sclerae nonicteric Neck: Supple, 2+ carotid pulse no bruit, JVD not distended, No Thyromegaly, No LAD, Without JVD or thyroid abnormality Respiratory: Clear to auscultation bilaterally, Normal air movement Cardiovascular: No edema, Normal pulses, Regular rate/rhythm, Normal S1 S2, No gallops, No rubs, No murmurs Capillary refill: <2 Seconds Gastrointestinal: Normal bowel sounds, Soft and benign, Non-distended, W/out hepatomegaly, No ascites, No tenderness, No masses, No rebound, No guarding Musculoskeletal: No clubbing, No swelling, No contractures, No erythema, No tenderness, No warmth Integumentary: No rashes, No breakdown, No significant lesion, No tenderness/swelling, No erythema, No warmth, No cyanosis Neurological: Normal gait, Normal speech, Normal strength at 5/5 x4 extr, Normal tone, Sensation intact, Cranial nerves 3-12 intact, Normal reflexes 2+, Normal affect Lymphatics: No axilla or inguinal lymphadenopathy Urinary: Dialysis catheter (Right chest wall.) - Studies Laboratory Data (last 24 hrs) 08/26/25 08/26/25 08/26/25 00:38 00:38 00:38 WBC 9.90 Hgb 8.5 L Hct 25.0 L Plt Count 443 H PT 13.4 H INR 1.19 Sodium 139 Potassium 5.2 H BUN 53 H Creatinine 11.40 H Glucose 86 Magnesium 2.2 Total Bilirubin 0.3 AST < 10 L ALT 21 Alkaline Phosphatase 76 Female Exam - Breasts Breasts: Normal configuration, Normal contours, Symmetrical Assessment and Plan - Plan Patient is a pleasant 35 old female admitted to observation with diagnosis of chest pain with associated shortness of breath radiating to her back, and hyperkalemia. (1)Chest pain/hyperkalemia. Patient received medications in ER for hyperkalemia including calcium gluconate, dextrose 50%, insulin 1 units, and albuterol 0.083 %. -Echocardiogram ordered. -Consult software solutions architect. -Serial troponin every 8 x 3. -EKG every 8 x 3. -Morphine 4 mg as needed every 4 hours. -Order lipid panel. -Aspirin 325 mg p.o. x 1. -Order repeat BMP at 7 AM. (2)On dialysis due to bilateral nephrectomy. -Consult patient still tender . (3) DVT prophylaxis. - Heparin 5 diabetes subcu every 8 hours. (4)Explained the entire treatment plan to the patient, solicited questions answered and voiced understanding. Discharge Plan: Home Plan to discharge in: 48 Hours - Advance Directives Does patient have a Living Will: No Does patient have a Durable POA for Healthcare: No - Code Status/Comfort Care Code Status Assessed: Yes Code Status: Full Code Critical Care: No Time Spent Managing Pts Care (In Minutes): 55
[2025-08-26] MEDS ORDERED: ASPIRIN EC 325 MG TABLET PO ONE (03:10)
[2025-08-26] MEDS: MORPHINE 4 MG/ML SYR IV PRN (03:35)
[2025-08-26 05:34] LABS: HDL Cholesterol 32.0 mg/dL (40-60); LDL Cholesterol, Calculated 70.0 mg/dL (<130); LDL Cholesterol,Calc NonReport 70.0
[2025-08-26 05:50] LABS: Anion Gap 13.7 mEq/L (5.0-15.0); BUN Blood Urea Nitrogen 55.0 mg/dL (7-18); Glucose Level 74.0 mg/dL (74-106); Potassium 4.7 mEq/L (3.5-5.1)
--- NOTE | 2025-08-26 06:06 | RAD REPORT ---
EXAM: XR CHEST 1 VIEW DATE: 08/25/2025 11:10 PM CDT INDICATION: Chest Pain COMPARISON: None TECHNIQUE: Frontal chest radiograph FINDINGS: A tunneled right IJ catheter is present. There is a left-sided vagal nerve stimulator. There are small to moderate pleural effusions. There is mild pulmonary edema. The cardiomediastinal silhouette is normal. There is no acute bony abnormality. IMPRESSION: Mild pulmonary edema with [id number] pleural effusions. Electronically signed by: Carlitos Powell MD 08/26/2025 12:12 AM CDT RP [id number] Due to temporary technical issues with the [employer] reporting system, reports are being sanjay d by the in-house radiologist without review as a courtesy to ensure prompt reporting the interpreting radiologist is fully responsible for the content of the report. Transcribed Date/Time: 08/26/2025 6:06 AM
[2025-08-26] MEDS: HEPARIN 5000 UNIT/ML 1 ML VIAL SQ SCH (09:00)
[2025-08-26 10:20] VITALS: BMI 32.1
[2025-08-26 11:12] LABS: Absolute Lymphocytes (CBC) 2.1 K/uL (0.7-4.9); Hematocrit 27.3 % (36.0-45.0); Hemoglobin 8.8 g/dL (12.0-15.0); MCH 29.0 pg (27.0-35.0); MCHC 32.1 g/dL (32.0-36.0); MCV 90.3 fL (80-100); MPV 7.0 fL (7.6-11.3); Nucleated RBC Absolute Count 0.0 (0-0); Nucleated Red Blood Cells % 0.1 % (0-0); RBC Red Blood Cell Count 3.03 M/uL (3.86-4.86); White Blood Count 8.40 thou/uL (4.3-10.9)
[2025-08-26 11:18] LABS: Anion Gap 17.2 mEq/L (5.0-15.0); BUN Blood Urea Nitrogen 57.0 mg/dL (7-18); Glucose Level 71.0 mg/dL (74-106); Potassium 5.2 mEq/L (3.5-5.1); Troponin High Sensitivity 30.3 pg/mL (<58.9)
--- NOTE | 2025-08-26 12:35 | P.CNS ---
Date of Consult: 08/26/25 Chief Complaint: Chest pain, hyperkalemia. History of Present Illness: Patient with PMH of Tubular sclerosis with brain tumor and bilateral kidney tumors s/p bilateral Nephrectomies, currently on dialysis, presented with sharp chest pain, happened yesterday, mid chest, no radiation, no other symptoms. Allergies No Known Drug Allergies Allergy (Verified 05/23/23 14:15) Unknown Home medications list reviewed: Yes Home Medications: Lamotrigine [Lamictal] 100 mg PO BID 09/06/21 Sodium Bicarbonate 650 mg PO TID #90 tab 05/26/23 Acetaminophen [Tylenol] 650 mg PO Q6HP PRN 08/26/25 Amitriptyline [Elavil] 10 mg PO BEDTIME 08/26/25 Carvedilol [Coreg] 6.25 mg PO BID 08/26/25 Escitalopram Oxalate [Lexapro] 10 mg PO DAILY 08/26/25 Ondansetron [Zofran] 4 mg PO Q6H PRN 08/26/25 Tizanidine [Zanaflex*] 4 mg PO PRN PRN MDD 8 08/26/25 Tramadol HCl [Ultram] 50 mg PO PRN PRN MDD 200 08/26/25 - Past Medical/Surgical History Diabetic: No -: Epilepsy with inplanted nerve stimulator -: Brain Tumor diagnosed at age 3 -: Chronic hereditary Kidney Disease Stage 4 with prior right nephrectomy, and -: Left nephrectomy. -: Nerve stimulator implant -: 2 kidney surgeries Psychosocial/ Personal History: Unemployed, lives with boyfriend - Family History Father Medical History: Other (see notes) Mother Medical History: Kidney disease - Social History Smoking Status: Former smoker Alcohol use: No CD- Drugs: No Caffeine use: No Place of Residence: Home Review of Systems 10-point ROS is otherwise unremarkable Physical Examination Temp Pulse Resp BP Pulse Ox 97.8 F 86 16 182/102 H 90 L 08/26/25 12:00 08/26/25 12:08/26/25 12:00 08/26/25 12:23 08/26/25 12:00 General: Alert, In no apparent distress HEENT: Atraumatic, PERRLA, Mucous membr. moist/pink, EOMI, Sclerae nonicteric Neck: Supple, 2+ carotid pulse no bruit, No LAD, Without JVD or thyroid abnormality Respiratory: Clear to auscultation bilaterally, Normal air movement Cardiovascular: Regular rate/rhythm, Normal S1 S2 Gastrointestinal: Normal bowel sounds, No tenderness Musculoskeletal: No tenderness Integumentary: No rashes Neurological: Normal gait, Normal speech, Normal tone, Normal affect Lymphatics: No axilla or inguinal lymphadenopathy Laboratory Data (last 24 hrs) 08/26/25 08/26/25 08/26/25 00:38 00:38 00:38 WBC 9.90 Hgb 8.5 L Hct 25.0 L Plt Count 443 H PT 13.4 H INR 1.19 Sodium 139 Potassium 5.2 H BUN 53 H Creatinine 11.40 H Glucose 86 Magnesium 2.2 Total Bilirubin 0.3 AST < 10 L ALT 21 Alkaline Phosphatase 76 - Problems (1) Chest pain Current Visit: Yes Status: Acute Plan: atypical with negative cardiac enzymes x3 get echo no need for further cardiac work if troponin are negative and echo is normal (2) HTN (hypertension) Current Visit: Yes Status: Acute Plan: recommend starting coreg 12.5 mg po BID, Will defer to nephrology team since they are following up patient. (3) Anemia Current Visit: Yes Status: Acute Plan: most likely secondary to kidney disease, continue to monitor
[2025-08-27 00:01] LABS: Hepatitis B Surface Ab - Quant 80.01 mIU/mL (<8.0); Hepatitis B surface AG Interp. Nonreactive (Nonreactive)
[2025-08-27 00:03] LABS: HBsAG Nonreactive Report Report
[2025-08-27 06:57] LABS: Hematocrit 28.0 % (36.0-45.0); Hemoglobin 9.4 g/dL (12.0-15.0); MCV 89.5 fL (80-100); RBC Red Blood Cell Count 3.13 M/uL (3.86-4.86); White Blood Count 6.90 thou/uL (4.3-10.9)
[2025-08-27 06:58] LABS: Absolute Lymphocytes (CBC) 1.5 K/uL (0.7-4.9); MCH 30.1 pg (27.0-35.0); MCHC 33.6 g/dL (32.0-36.0); MPV 6.7 fL (7.6-11.3); Nucleated RBC Absolute Count 0.0 (0-0); Nucleated Red Blood Cells % 0.0 % (0-0)
[2025-08-27 07:21] LABS: Anion Gap 12.8 mEq/L (5.0-15.0); BUN Blood Urea Nitrogen 34.0 mg/dL (7-18); Glucose Level 84.0 mg/dL (74-106); Potassium 4.8 mEq/L (3.5-5.1)
[2025-08-27] MEDS: HYDRALAZINE HCL 20 MG/ML VIAL IV ONE (11:59)
[2025-08-27] MEDS: NIFEdipine 10 MG CAP PO ONE (12:00)
[2025-08-27 12:06] VITALS: O2SAT 94
[2025-08-27] MEDS: NITROGLYCERIN 0.4 MG/TAB SL PRN (13:17)
[2025-08-27 17:22] VITALS: BP 153/83; TEMP 98.3
--- NOTE | 2025-08-27 18:56 | P.CNS ---
Date of Consult: 08/27/25 Reason for Consult: esrd Chief Complaint: hyperkalemia. History of Present Illness: Date of Consult: 08/26/25 Chief Complaint: Chest pain, hyperkalemia. History of Present Illness: 35-year-old female with past medical history of anxiety, bipolar disorder, brain tumor, depression, schizophrenia, multiple tumors in both kidneys resulting in bilateral nephrectomy, right nephrectomy done in August/2021, left nephrectomy recently done in , patient currently on dialysis on Monday, , and Monday. 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 Patient presents to the ER tonight complaining of severe chest pain radiating to her back, with associated shortness of breath. Patient states she was doing good throughout the day, states around 10 PM is when she had the chest pain. Patient described the chest pain as sharp, pressure type pain with initial pain scale of 9/10. Patient states she went to urgent care, she was told to go to ER.. Upon arrival to ER, patient received nitroglycerin sublingual, states her chest pain was much relieved after receiving nitro 0.4 mg sublingual x 2. Patient initial troponin 38.9, EKG with no ST elevation, potassium 5.2. Patient states she has never had such a chest pain before. Patient also received calcium gluconate 1 g, dextrose 50%, insulin regular 1 unit, and albuterol 0.083% for hyperkalemia. During admission assessment, patient states she felt much better after she received both doses of nitroglycerin sublingual, denies of any shortness of breath at this time. Patient in no acute distress at this time. Patient with PMH of Tubular sclerosis with brain tumor and bilateral kidney tumors s/p bilateral Nephrectomies, currently on dialysis, presented with sharp chest pain, happened yesterday, mid chest, no radiation, no other symptoms. Allergies No Known Drug Allergies Allergy (Verified 05/23/23 14:15) Unknown Home medications list reviewed: Yes Home Medications: Lamotrigine [Lamictal] 100 mg PO BID 09/06/21 Sodium Bicarbonate 650 mg PO TID #90 tab 05/26/23 Acetaminophen [Tylenol] 650 mg PO Q6HP PRN 08/26/25 Amitriptyline [Elavil] 10 mg PO BEDTIME 08/26/25 Carvedilol [Coreg] 6.25 mg PO BID 08/26/25 Escitalopram Oxalate [Lexapro] 10 mg PO DAILY 08/26/25 Ondansetron [Zofran] 4 mg PO Q6H PRN 08/26/25 Tizanidine [Zanaflex*] 4 mg PO PRN PRN MDD 8 08/26/25 Tramadol HCl [Ultram] 50 mg PO PRN PRN MDD 200 08/26/25 - Past Medical/Surgical History Diabetic: No -: Epilepsy with inplanted nerve stimulator -: Brain Tumor diagnosed at age 3 -: Chronic hereditary Kidney Disease Stage 4 with prior right nephrectomy, and -: Left nephrectomy. -: Nerve stimulator implant -: 2 kidney surgeries Psychosocial/ Personal History: Unemployed, lives with boyfriend - Family History Father Medical History: Other (see notes) Mother Medical History: Kidney disease - Social History Smoking Status: Former smoker Alcohol use: No CD- Drugs: No Caffeine use: No Place of Residence: Home Review of Systems 10-point ROS is otherwise unremarkable Physical Examination Temp Pulse Resp BP Pulse Ox 97.8 F 86 16 182/102 H 90 L 08/26/25 12:00 08/26/25 12:23 08/26/25 12:00 08/26/25 12:23 08/26/25 12:00 General: Alert, In no apparent distress HEENT: Atraumatic, PERRLA, Mucous membr. moist/pink, EOMI, Sclerae nonicteric Neck: Supple, 2+ carotid pulse no bruit, No LAD, Without JVD or thyroid abnormality Respiratory: Clear to auscultation bilaterally, Normal air movement Cardiovascular: Regular rate/rhythm, Normal S1 S2 Gastrointestinal: Normal bowel sounds, No tenderness Musculoskeletal: No tenderness Integumentary: No rashes Neurological: Normal gait, Normal speech, Normal tone, Normal affect Lymphatics: No axilla or inguinal lymphadenopathy Laboratory Data (last 24 hrs) 08/26/25 08/26/25 08/26/25 00:38 00:38 00:38 WBC 9.90 Hgb 8.5 L Hct 25.0 L Plt Count 443 H PT 13.4 H INR 1.19 Sodium 139 Potassium 5.2 H BUN 53 H Creatinine 11.40 H Glucose 86 Magnesium 2.2 Total Bilirubin 0.3 AST < 10 L ALT 21 Alkaline Phosphatase 76 - Problems 1. End-stage renal disease. Normal volume. We will continue to dialyze the patient Monday, Monday, Monday. fu cardiology . 2. hyper K s/p HD resolved 3. Anemia of chronic kidney disease, stable. Resume LIZANDRO. 4. Hyponatremia will be corrected with dialysis. 5. Hypertension, controlled, optimal. Continue current treatment. 6 - over volume s/p HD resolved Time spent examining the patient [id number] reviewing data lab and the radiology placing order discussing the case with the team including hospitalist and nursing staff dialysis nurse more than 75-minute Allergies No Known Drug Allergies Allergy (Verified 05/23/23 14:15) Unknown Home Medications: Lamotrigine [Lamictal] 100 mg PO BID 09/06/21 Sodium Bicarbonate 650 mg PO TID #90 tab 05/26/23 Acetaminophen [Tylenol] 650 mg PO Q6HP PRN 08/26/25 Amitriptyline [Elavil*] 10 mg PO BEDTIME 08/26/25 Carvedilol [Coreg] 6.25 mg PO BID 08/26/25 Escitalopram Oxalate [Lexapro] 10 mg PO DAILY 08/26/25 Ondansetron [Zofran (Odt)*] 4 mg PO Q6H PRN 08/26/25 Tizanidine [Zanaflex*] 4 mg PO PRN PRN MDD 8 08/26/25 Tramadol HCl [Ultram] 50 mg PO PRN PRN MDD 200 08/26/25 Hydralazine HCl 25 mg PO TID PRN #60 tab 08/27/25 - Past Medical/Surgical History Diabetic: No -: Epilepsy with inplanted nerve stimulator -: Brain Tumor diagnosed at age 3 -: Chronic hereditary Kidney Disease Stage 4 with prior right nephrectomy, and -: Left nephrectomy. -: Nerve stimulator implant -: 2 kidney surgeries Psychosocial/ Personal History: Unemployed, lives with boyfriend - Family History Father Medical History: Other (see notes) Mother Medical History: Kidney disease - Social History Smoking Status: Former smoker Alcohol use: No CD- Drugs: No Caffeine use: No Place of Residence: Home Physical Examination Temp Pulse Resp BP Pulse Ox 98.3 F 123 H 17 153/83 H 96 08/27/25 16:00 08/27/25 16:00 08/27/25 16:00 08/27/25 16:00 08/27/25 16:00 Laboratory Data (last 24 hrs) 08/27/25 08/27/25 06:43 06:43 WBC 6.90 Hgb 9.4 L Hct 28.0 L Plt Count 401 Sodium 138 Potassium 4.8 BUN 34 H Creatinine 8.67 H Glucose 84
== END 2025-08-27 17:45 | disposition home or self-care (01) | DRG 640 ==
LOC: ER 22:17 → ERHOLD 08-26 02:42 → 4TH 08-26 07:59 → OBSVTOIN 08-27 16:04
PROVIDERS: ADMIT Hospitalist; ATTEND Hospitalist
PROC: 5A1D70Z Performance of Urinary Filtration, Intermittent, Less than 6 Hours Per Day (ICD-10-PCS; principal; 2025-08-26)
DX: E87.5 Hyperkalemia (principal); N18.6 End stage renal disease; I12.0 Hypertensive chronic kidney disease with stage 5 chronic kidney disease or end stage renal disease; D63.1 Anemia in chronic kidney disease; E87.1 Hypo-osmolality and hyponatremia; F20.9 Schizophrenia, unspecified; F31.9 Bipolar disorder, unspecified; Z90.5 Acquired absence of kidney; Z99.2 Dependence on renal dialysis; Z56.0 Unemployment, unspecified; Z87.891 Personal history of nicotine dependence
CPT/HCPCS: 36415; 71045; 80048; 80061; 80076; 83735; 83880; 84484; 84703; 85025; 85610; 86706; 87340; 93005; 93306; 96365; 96375; 99285; G0378; J0360; J0612; J1644; J1815; J2405; J7613